=== PATIENT | female | born 1995 | race Caucasian/White ===

== ENCOUNTER 2018-12-22 00:56 | Emergency (ER) | payer MEDICAID, OTHER ==
[~2018-12-22] VITALS: Ht 158.8 cm; Wt 54.0 kg
--- OUTSIDE RECORDS SUMMARY | 2018-12-22 01:05 | XMS REPORT ---
Author Author [facility] Medical Staff Organization [facility] Address [address] [place] [place] [id number] Phone [phone] Care Team Providers Care [place] Runner Name Role Phone ANG HAWLEY MD PP [phone] Summary purpose TRANSITION OF CARE AUTO GENERATION Chief Complaint and Reason for Visit No authorized Reason for Visit (Admitting Diagnosis) is available for this visit. Problem list No authorized problems tracked for continuity of care are available for this visit. Encounters No authorized problems tracked for encounter diagnoses are available for this visit. Medications No medications recorded for this patient visit Allergies, adverse reactions, alerts Allergen Category Ingredient Status Reaction Severity Onset Penicillins Drug Allergy Penicillins Confirmed or Verified Rash Penicillins Drug Allergy Penicillins Confirmed or Verified Swelling Immunizations No immunizations recorded for this patient visit Relevant diagnostic tests and/or laboratory data RESULTS Routine Urinalysis [id number]:41:00 Result Normal Range Units Color YELLOW Clarity Hazy Specific [place] 1.010 1.003-1.035 pH 5.5 4.5-8.0 Glucose 3+ Bilirubin NEGATIVE Ketones NEGATIVE Protein NEGATIVE Urobilinogen 0.2 0-0.2 E.U./dL Nitrites NEGATIVE Blood NEGATIVE Leukocytes NEGATIVE WBCs 5-10 RBCs 0-5 Squamous Epithelial 1+ Bacteria Rare Amount Yeast Occasional Chemistry [id number]:30:00 Result Normal Range Units Sodium L 130 134-145 mEq/l Potassium 4.3 3.5-5.1 mEq/l Chloride L 93 98-107 mEq/l CO2 H 29.0 22-28 mEq/l Glucose H@ 474 70-105 mg/dl BUN 12 7-18 mg/dl Creatinine 0.69 0.6-1.0 mg/dl Calcium 9.1 8.4-10.2 mg/dl TP - Total Protein 7.8 6.0-8.3 g/dl Albumin L 3.4 3.5-5 g/dl Bilirubin - Total 0.2 0.1-1.0 mg/dl AST L 7 10-42 IU/L ALT 17 12-65 IU/L ALP H 150 25-72 IU/L Osmolality 281.4 280-300 mOsm/L Albumin/Globulin Ratio 0.8 0-8 Anion GAP 8.0 8-16 BUN/Creatinine Ratio 17.4 10-20 Estimated GFR 107 >=60 mL/min/1.7 Hematology [id number]:30:00 Result Normal Range Units WBC H 12.0 4.8-10.8 103/uL RBC 5.4 4.2-5.4 106/uL HGB 14.2 12.0-16.0 g/dl HCT 43.6 36.9-47.0 % MCV L 80.7 81-99 FL MCH L 26.3 27-31 pg MCHC L 32.6 33-37 g/dl RDW 13.7 11.5-15.5 % PLT 314 130-400 103/uL MPV 10.2 7.3-10.4 FL Neutro % 60.1 40-70 % Lymph % 32.0 20-40 % Dixon % 5.1 0-10.0 % Eos % 1.3 0-7.0 % Baso % 0.6 0-2 % Neutro # 7.2 1.5-7.5 103/uL Lymph # 3.8 0.9-4.0 103/uL Dixon # 0.6 0-0.8 103/uL Eos # 0.2 0-0.6 103/uL Baso # 0.1 0-0.1 103/uL Special Chemistry [id number]:30:00 Result Normal Range Units HCG (Qualitative) Negative Body Fluid [id number]:41:00 Result Normal Range Units pH 5.5 4.5-8.0 Radiology Results [id number]:18:00 Abdomen 2 View PACs Image DATE OF EXAM: Jan 18 2016 RAD 0037-ABDOMEN 2 VIEW : RADIOLOGY REPORT DATE OF SERVICE: 01/18/16 HISTORY: Abdominal pain ABDOMEN 2 VIEWS 0120 HOURS The bowel gas pattern is within normal limits. There is no obstruction or ileus. There is no free air. There are no pathological calcifications. The lung bases are clear. IMPRESSION: Negative abdomen. Luis Beckwith MD Tutu/mn/ 08:20:00 / 01/18/2016 08:51:23 cc:Dr. Ang aHwley This document has been electronically Signed by: On: DATE OF EXAM: Jan 18 2016 RAD 0037-ABDOMEN 2 VIEW : RADIOLOGY REPORT DATE OF SERVICE: 01/18/16 HISTORY: Abdominal pain ABDOMEN 2 VIEWS 0120 HOURS The bowel gas pattern is within normal limits. There is no obstruction or ileus. There is no free air. There are no pathological calcifications. The lung bases are clear. IMPRESSION: Negative abdomen. MD SASHA Doe/mn01/18/2016 08:20:00 / 01/18/2016 08:51:23 cc:Dr. Ang Hawley This document has been electronically Signed by: LUIS BECKWITH MD On: Jan 18 20161:18P Result Amended on 2016-01-18 at 13:18:26. Previous status was [place]. [id number]:30:00 Result Normal Range Units MPV 10.2 7.3-10.4 FL History of procedures No procedures recorded for this patient visit. Functional status Functional Status Finding Observation Time Abdomen Appearance round [id number]:20 Abdomen tender [id number]:20 Bowel Sounds present [id number]:20 Marks no 21-57-196456:20 Urination normal [id number]:20 Quality sym/unlabored :20 Cough absent 92-95-253826:20 Secretions no 75-26-140410:20 Airway natural 26-14-347577:20 Chest Tube no 33-75-221688:20 Oxygen no 97-46-006540:00 Temp >100.4 no 29-77-274475:20 Temp <96.8 no 54-22-767986:20 Chills with rigors no 26-84-368726:20 HR > 90bpm yes :20 Respirations > 20 no :20 Systolic <90 no :20 headache stiff neck no [id number]:20 IV Site Location no iv access :30 Nursing Note dc instructions given. pt verbalized understanding on patient education. vitals wnl. pt amb off unit to personal vehicle with personal belongings intact. encouraged to call with any needs or c/o. :05 Vital signs Type Value Date Respiration Rate 18breaths per minute : Pulse 106beats per minute : Oxygen Saturation 100% : BP Systolic 116mmHg :00 BP Diastolic 85mmHg :00 Temperature 98.8F :00 Social history Type Value Smoking Status CURRENT EVERY DAY SMOKER Treatment Plan No treatment plan text is available for this visit. Hospital discharge instructions Dismissal Condition good Disposition on DC home DC Inst/Educ Give yes Med/Side Effects Rev yes PNE Vac no Flu Vac no Tetanus Vac no
--- OUTSIDE RECORDS SUMMARY | 2018-12-22 01:05 | XMS REPORT ---
Author Author [facility] Medical Staff Organization [facility] Address [address] [place], [place] [id number] Phone [phone] Care Team Providers Care Accounting Technician Name Role Phone ANG HAWLEY MD PP [phone] ANG HAWLEY MD, PP [phone] Summary purpose TRANSITION OF CARE AUTO GENERATION Chief Complaint and Reason for Visit Admit Diagnosis 1 HYPERGLYCEMIA DENTAL ABSCESS Problem list No authorized problems tracked for continuity of care are available for this visit. Encounters The following conditions tracked for encounter diagnoses were recorded for this visit: Finding or Diagnosis Status Certainty Chronicity Onset *CELLULITIS Active Medications Discharge Medications Status Medication Directions Current Ambien 10 mg tablet 10 milligram (s) oral Bedtime daily sleep aid Current clindamycin 300 mg capsule 1 oral oral 3 xDaily 06-11-21 x 7 days Current doxepin 10 mg capsule 1 capsule(s) oral Every Evening @ 1800 Itching Current hydroxyzine HCl 25 mg tablet 1 tab(s) oral 3 xDaily 06-11-21 Nerves Current Insulin Aspart (NOVOLOG FLEXPEN): INSULN PEN 10 UNIT subcutaneous Give SUBQ Before Meals Current Levemir 100 unit/mL subcutaneous solution 40 unit(s) subcutaneous subQ Bedtime daily Diabetes Current metoclopramide 10 mg tablet 0.5 tab(s) oral 4 xDaily 06-10-17- 30 min before meal and at bedtime Current paroxetine 20 mg tablet 1 tab(s) oral Daily depression Current ranitidine 150 mg capsule 1 tab(s) oral Twice a day Heartburn Stopped Novolog 100 unit/mL Sub-Q subcutaneous 3 xDaily 06-11-21 Sliding scale with meals Allergies, adverse reactions, alerts Allergen Category Ingredient Status Reaction Severity Onset Penicillins Drug Allergy Penicillins Confirmed or Verified Rash Penicillins Drug Allergy Penicillins Confirmed or Verified Swelling Sulfa (Sulfonamide Antibiotics) Drug Allergy Sulfa (Sulfonamide Antibiotics) Confirmed or Verified Immunizations No immunizations recorded for this patient visit Relevant diagnostic tests and/or laboratory data RESULTS [id number]:17:00 Discharge Summary DISCHARGE SUMMARY ADMISSION DIAGNOSES: 1. Right facial cellulitis. 2. Uncontrolled diabetes. DISCHARGE DIAGNOSES: 1. Right facial cellulitis secondary to dental abscess, improved. 2. Underlying poorly controlled diabetes mellitus on insulin. CONSULTATIONS:None. PROCEDURES:None. PERTINENT LABORATORY/X-RAY/ELECTROCARDIOGRAM DATA: CT scan of the face showed soft tissue swelling and inflammatory changes of the right perimandibular region, suggesting cellulitis. No definite abscess identified at this time. Forming abscess could be a consideration. LABORATORY/X-RAY/EKG DATA:Complete blood count on admission with white count 11.5, normal differential, hemoglobin 12.8, and platelets 320. Throughout her stay, white count was as high as 14.4 and was down to 9.5 by the day of dismissal. Hemoglobin A1c was 12.5. Comprehensive metabolic panel on admission showed a sodium of 130, potassium 4.1, glucose 472, blood urea nitrogen 4, creatinine 0.72, albumin of 2.9, alkaline phosphatase 148, and otherwise normal. By dismissal basic metabolic profile showed a sodium of 136, potassium 4.2, glucose 254, blood urea nitrogen 6, and creatinine 0.52. Blood cultures negative times two. HOSPITAL COURSE:[place] is a 20-year-old female patient of Dr. Hawley who has chronically been noncompliant with her diabetes management. She is an insulin dependent diabetic. She was admitted to the hospital with right facial cellulitis secondary to poor dentition and probable dental abscess. Given her allergy to penicillin, she was started on meropenem in the hospital and she improved very quickly with some resolution of low grade fevers, improvement of white blood cell count, and improvement of her clinical status with regard to erythema, swelling, and pain to the right side of the face. She was essentially back to normal other than some mild induration of the right zygoma on dismissal. We had her following a better diabetic diet, which brought her blood sugars down from "high" to the 300 to 400s. We then increased her insulin and started scheduled mealtime insulin as opposed to her normal sliding scale. This brought her blood sugars down to the 180s to 240s. She was ready for dismissal on 04/06/2016. PHYSICAL EXAMINATION: VITAL SIGNS: On dismissal, temperature 98.6, pulse 114, blood pressure 116/82, respirations 18, and oxygen saturation 96% on room air. GENERAL: Well developed, overweight female in no acute distress on my exam. Alert and oriented, friendly and cooperative. Mood and affect are much more bright today. HEENT: Oropharynx is clear. Poor dentition. Face with minimal induration over the right zygoma and essentially no erythema remaining and no tenderness. CONDITION ON DISMISSAL:Good. DISCHARGE INSTRUCTIONS:We discussed the importance of diabetic diet, exercise, and compliance with medications. FOLLOW UP: 1. Follow up with Dr. Hawley in about 10 days for diabetic management. 2. Follow up with dentist [place]. DISCHARGE MEDICATIONS:Clindamycin 300 mg 3 times a day times 7 days. She received meropenem for 4 days in the hospital. Ambien 10 mg nightly. Doxepin 10 mg nightly. Hydroxyzine 25 mg 3 times a day. NovoLog 10 units with meals. Levemir 40 units each night. Reglan 5 mg 4 times a day. Paxil 20 mg daily. Ranitidine 150 mg twice daily. Eri Borges MD, PhD AM/claire04/06/2016 13:17:29/04/06/2016 14:01:47 [facility]: [facility] [address] [place] [address] <END HEADER> [id number]:47:00 Progress Note PROGRESS NOTE 04/05/2016 16:47:27 S: She is feeling better.She has no pain, no shortness of breath, no chest pain, no nausea.Bowels are working.Urination is working. Chronic lower extremity wounds are improving a little.Facial cellulitis is improving.No concerns. O:VITAL SIGNS:Temperature 96.6, pulse 103, blood pressure 118/78, respirations 18, oxygen saturation 95% on room air.GENERAL: Well-developed, overweight female in no distress.Alert, oriented, friendly, cooperative.Mood and affect are flat.HEENT:Poor dentition.Minimal erythema remaining below the right eye; otherwise, minimal swelling to the right side of the face.Nontender, no fluctuance.NECK:Supple.HEART:Regular.No murmurs.LUNGS: Clear.EXTREMITIES:No edema.LABORATORY:Complete blood count with white count down to 11,300, normal differential, hemoglobin stable at 10.7, platelets 297,000.Comprehensive metabolic panel, sodium 135, potassium 4.8, glucose 359 fasting, BUN 4, creatinine 0.56, albumin 2.3, alkaline phosphatase 112; otherwise, normal.Blood cultures negative. Wound cultures negative of the knee. A:1)20-year-old female with right facial cellulitis, improving with IV Meropenem.2)Underlying uncontrolled diabetes mellitus on insulin. P:1)Continue IV Meropenem until dismissal at which point we will change to Augmentin.2)Increase her home Levemir from 35 units to 40 units.Start NovaLog 10 units with meals, plus the correction NovaLog that is on order currently.3)Repeat lab in the morning.4) Anticipate dismissal tomorrow.5)We talked about the fact that she has to get control of her diabetes or she will end up with diabetic complications and a shorter life.I request that she follow up with Dr. Hawley in about one week regarding her diabetes and she be compliant with diabetic diet, exercise, blood sugar monitoring and insulin use. Eri Borges MD, PhD AM/pb 04/05/2016 16:47:27/04/05/2016 19:25:01 [facility]: [facility] [address] [place] [address]<END HEADER> [id number]:20:00 Progress Note PROGRESS NOTE 04/04/2016 06:20:18 S: Patient is in with a right facial cellulitis from a dental infection. She is also uncontrolled on diabetes. Last night was okay. She reports she did not sleep well since she did not get her Ambien at night that she normally takes around midnight. She has had some facial pain. She has been given Toradol as well as Lortab. She also has Ibuprofen. She is hungry this morning and wanting to eat. Her blood sugars have been 300 earlier this morning down from 500. No fevers or other concerns noted. O: VITAL SIGNS: Temperature 97.6, pulse 112, blood pressure 105/71, respiratory rate 18 and oxygen saturation is 99% on room air. GENERAL: The patient is alert, oriented, lying in bed, no acute distress. CARDIOVASCULAR: Regular rate rhythm. LUNGS: Clear. ABDOMEN: Soft, nontender, nondistended. Positive bowel sounds. EXTREMITIES: No rash or edema. HEENT: Right face still has some mild redness in the cheek and underneath the right eye. The redness and swelling seemed to be consolidating already. The patient has poor dentition inside the mouth. LABORATORY: Currently pending. A: 1. Right-sided facial cellulitis. 2. Dental infection which is primary source of infection. 3. Poorly controlled diabetes type 1. P: 1. Will continue the IV antibiotics. She is on meropenem currently. 2. Will continue her insulin. 3. Will continue Lovenox for DVT prophylaxis. 4. Will get her up to the chair today. 5. Will restart her Ambien at night. There are several other medicines she reports she takes but we do not have the official complete list yet. 6. Will continue her pain medication. 7. Recheck lab in the morning. Codey Hdez MD /la 04/04/2016 06:20:18/04/04/2016 14:30:17 Clinic Code: [facility] [address] [place] [address]<END HEADER> Blood Cultures [id number]:39:00 Blood Culture Plate Date and Time 04/03/2016 18:46 SourceBLOOD CULTURE REPORT NoGrowth at 1 day. Unless otherwise notified. Final report in 5 Days. Release Date/Time: 04/05/2016 08:14 RIGHT AC CULTURE REPORT No growth in 5 days. Release Date/Time: 04/09/2016 07:25 RIGHT AC Blood Culture Plate Date and Time 04/03/2016 18:46 SourceBLOOD CULTURE REPORT NoGrowth at 1 day. Unless otherwise notified. Final report in 5 Days. Release Date/Time: 04/05/2016 08:14 LEFT AC CULTURE REPORT No growth in 5 days. Release Date/Time: 04/09/2016 07:25 LEFT AC Routine Cultures [id number]:00 Wound Culture Plate Date and Time 04/04/2016 23:18 SourceKNEE CULTURE REPORT Small Amount Staphylococcus aureus Sensitivity to follow. Release Date/Time: 04/06/2016 08:53 LEFT ANKLE disregard 1st comment. specimen collected from left knee GRAM STAIN No cells seen on microscopic Examination No Organisms Seen. Release Date/Time: 04/05/2016 09:40 LEFT ANKLE disregard 1st comment. specimen collected from left knee ORGID #1:Small Amount METHICILLIN RESISTANT STAPH AUREUS Release Date/Time: 04/07/2016 08:00 LEFT ANKLE disregard 1st comment. specimen collected from left knee Sensitivity #1: MRSA AMPICILLIN > 8 R LEFT ANKLE disregard 1st comment. specimen collected from left knee AMOX CLAV>4/2R LEFT ANKLE disregard 1st comment. specimen collected from left knee CLINDAMYCIN<=0.5S LEFT ANKLE disregard 1st comment. specimen collected from left knee CEFAZOLIN> 16R LEFT ANKLE disregard 1st comment. specimen collected from left knee CIPROFLOXACIN<=1S LEFT ANKLE disregard 1st comment. specimen collected from left knee DAPTOMYCIN 1 S LEFT ANKLE disregard 1st comment. specimen collected from left knee ERYTHROMYCIN > 4 R LEFT ANKLE disregard 1st comment. specimen collected from left knee GENTAMICIN <=4S LEFT ANKLE disregard 1st comment. specimen collected from left knee AMPICILLIN SULBACTAM >16/8 R LEFT ANKLE disregard 1st comment. specimen collected from left knee LEVOFLOXACIN <=1S LEFT ANKLE disregard 1st comment. specimen collected from left knee LINEZOLID4 S LEFT ANKLE disregard 1st comment. specimen collected from left knee MOXIFLOXACIN <=0.5S LEFT ANKLE disregard 1st comment. specimen collected from left knee OXACILLIN> 2 R LEFT ANKLE disregard 1st comment. specimen collected from left knee PENICILLIN > 8 R LEFT ANKLE disregard 1st comment. specimen collected from left knee RIFAMPIN <=1S LEFT ANKLE disregard 1st comment. specimen collected from left knee TRIMETHSULFA <=0.5/9.5 S LEFT ANKLE disregard 1st comment. specimen collected from left knee TETRACYCLINE <=4S LEFT ANKLE disregard 1st comment. specimen collected from left knee VANCOMYCIN 2 S LEFT ANKLE disregard 1st comment. specimen collected from left knee Wound Culture Plate Date and Time 04/05/2016 01:38 SourceANKLE CULTURE REPORT Small Amount Staphylococcus aureus Sensitivity to follow. Release Date/Time: 04/06/2016 08:52 GRAM STAIN No cells seen on microscopic Examination No Organisms Seen. Release Date/Time: 04/05/2016 09:40 ORGID #1:Small Amount METHICILLIN RESISTANT STAPH AUREUS Release Date/Time: 04/07/2016 07:59 Sensitivity #1: MRSA AMPICILLIN > 8 R AMOX CLAV>4/2R CLINDAMYCIN<=0.5S CEFAZOLIN> 16R CIPROFLOXACIN<=1S DAPTOMYCIN 1 S ERYTHROMYCIN > 4 R GENTAMICIN <=4S AMPICILLIN SULBACTAM >16/8 R LEVOFLOXACIN <=1S LINEZOLID4 S MOXIFLOXACIN <=0.5S OXACILLIN> 2 R PENICILLIN > 8 R RIFAMPIN <=1S TRIMETHSULFA <=0.5/9.5 S TETRACYCLINE <=4S VANCOMYCIN 2 S Chemistry :45:00 Result Normal Range Units Sodium 136 134-145 mEq/l Potassium 4.2 3.5-5.1 mEq/l Chloride L 97 98-107 mEq/l CO2 H 32.1 22-28 mEq/l Glucose H 254 70-105 mg/dl BUN L 6 7-18 mg/dl Creatinine L 0.52 0.6-1.0 mg/dl Calcium 9.7 8.4-10.2 mg/dl Osmolality L 278.2 280-300 mOsm/L Anion GAP L 6.9 8-16 BUN/Creatinine Ratio 11.5 10-20 Estimated GFR 149 >=60 mL/min/1.7 :47:00 Result Normal Range Units Sodium 135 134-145 mEq/l Potassium 4.8 3.5-5.1 mEq/l Chloride L 97 98-107 mEq/l CO2 H 31.9 22-28 mEq/l Glucose H 359 70-105 mg/dl BUN L 4 7-18 mg/dl Creatinine L 0.56 0.6-1.0 mg/dl Calcium 8.9 8.4-10.2 mg/dl TP - Total Protein 6.8 6.0-8.3 g/dl Albumin L 2.3 3.5-5 g/dl Bilirubin - Total 0.2 0.1-1.0 mg/dl AST 10 10-42 IU/L ALT 12 12-65 IU/L ALP H 112 25-72 IU/L Osmolality 281.5 280-300 mOsm/L Albumin/Globulin Ratio 0.5 0-8 Anion GAP L 6.1 8-16 BUN/Creatinine Ratio L 7.1 10-20 Estimated GFR 137 >=60 mL/min/1.7 :30:00 Result Normal Range Units Sodium L 130 134-145 mEq/l Potassium 4.1 3.5-5.1 mEq/l Chloride L 93 98-107 mEq/l CO2 H 28.6 22-28 mEq/l Glucose H@ 472 70-105 mg/dl BUN L 4 7-18 mg/dl Creatinine 0.72 0.6-1.0 mg/dl Calcium 9.1 8.4-10.2 mg/dl TP - Total Protein 8.0 6.0-8.3 g/dl Albumin L 2.9 3.5-5 g/dl Bilirubin - Total 0.3 0.1-1.0 mg/dl AST 10 10-42 IU/L ALT 16 12-65 IU/L ALP H 148 25-72 IU/L Osmolality L 278.5 280-300 mOsm/L Albumin/Globulin Ratio 0.6 0-8 Anion GAP 8.4 8-16 BUN/Creatinine Ratio L 5.6 10-20 Estimated GFR 102 >=60 mL/min/1.7 Hematology :45:00 Result Normal Range Units WBC 9.5 4.8-10.8 103/uL RBC 4.8 4.2-5.4 106/uL HGB 12.6 12.0-16.0 g/dl HCT 38.7 36.9-47.0 % MCV L 80.3 81-99 FL MCH L 26.1 27-31 pg MCHC L 32.6 33-37 g/dl RDW 13.1 11.5-15.5 % PLT 332 130-400 103/uL MPV 10.1 7.3-10.4 FL :47:00 Result Normal Range Units WBC H 11.3 4.8-10.8 103/uL RBC L 4.1 4.2-5.4 106/uL HGB L 10.7 12.0-16.0 g/dl HCT L 32.7 36.9-47.0 % MCV L 80.5 81-99 FL MCH L 26.4 27-31 pg MCHC L 32.7 33-37 g/dl RDW 13.3 11.5-15.5 % PLT 297 130-400 103/uL MPV 10.1 7.3-10.4 FL Neutro % 56.2 40-70 % Lymph % 36.8 20-40 % Rusk % 5.2 0-10.0 % Eos % 1.1 0-7.0 % Baso % 0.3 0-2 % Neutro # 6.4 1.5-7.5 103/uL Lymph # H 4.2 0.9-4.0 103/uL Rusk # 0.6 0-0.8 103/uL Eos # 0.1 0-0.6 103/uL Baso # 0.0 0-0.1 103/uL [id number]:00:00 Result Normal Range Units WBC H 14.4 4.8-10.8 103/uL RBC 4.3 4.2-5.4 106/uL HGB L 11.4 12.0-16.0 g/dl HCT L 34.7 36.9-47.0 % MCV L 80.1 81-99 FL MCH L 26.3 27-31 pg MCHC L 32.9 33-37 g/dl RDW 13.2 11.5-15.5 % PLT 308 130-400 103/uL MPV 10.2 7.3-10.4 FL Neutro % 57.2 40-70 % Lymph % 34.7 20-40 % Rusk % 6.5 0-10.0 % Eos % 1.0 0-7.0 % Baso % 0.3 0-2 % Neutro # H 8.2 1.5-7.5 103/uL Lymph # H 5.0 0.9-4.0 103/uL Rusk # H 0.9 0-0.8 103/uL Eos # 0.2 0-0.6 103/uL Baso # 0.1 0-0.1 103/uL [id number]:30:00 Result Normal Range Units WBC H 11.5 4.8-10.8 103/uL RBC 4.9 4.2-5.4 106/uL HGB 12.8 12.0-16.0 g/dl HCT 38.9 36.9-47.0 % MCV L 79.9 81-99 FL MCH L 26.3 27-31 pg MCHC L 32.9 33-37 g/dl RDW 13.5 11.5-15.5 % PLT 320 130-400 103/uL MPV H 10.6 7.3-10.4 FL Neutro % 67.4 40-70 % Lymph % 26.0 20-40 % Rusk % 4.9 0-10.0 % Eos % 1.0 0-7.0 % Baso % 0.4 0-2 % Neutro # H 7.7 1.5-7.5 103/uL Lymph # 3.0 0.9-4.0 103/uL Rusk # 0.6 0-0.8 103/uL Eos # 0.1 0-0.6 103/uL Baso # 0.1 0-0.1 103/uL Special Chemistry [id number]:39:00 Result Normal Range Units HCG (Qualitative) Negative [id number]:30:00 Result Normal Range Units Hemoglobin A1C H 12.5 4.5-6.2 % Radiology Results [id number]:45:00 Result Normal Range Units MPV 10.1 7.3-10.4 FL [id number]:47:00 Result Normal Range Units MPV 10.1 7.3-10.4 FL [id number]:54:00 CT FACIAL W/CONT PACs Image DATE OF EXAM: 2015 [id number] FACIAL BONES W CONTRAST : RADIOLOGY REPORT DATE OF SERVICE: 04/03/16 HISTORY: Right side facial swelling, possible abscess COMPUTED TOMOGRAPHY FACIAL BONES WITH CONTRAST 1945 HOURS Contrast was utilized Isovue-300, 100 ml. Abscess formation presentation is not defined at this time. There is soft tissue prominence over the right mandibular and facial region. This could be a precursor to abscess formation. There is slight increase in enhancement through this area. The left side shows no evidence of abnormality. The right maxillary sinus shows mucoperiosteal thickening. The left maxillary sinus is clear. The ethmoid sinuses bilaterally are clear, sphenoid and frontal sinuses appear normal. No obvious bony erosion or dental abscess formation is defined. Definitive followup of this patient recommended. IMPRESSION: 1. Soft tissue swelling and inflammatory changes in the right perimandibular region suggesting a cellulitis. 2. No definitive abscess identified at this time, forming abscess could be a consideration and continued followup is recommended. Devang Jeffries DO WP/franc 04/04/2016 09:04:00 / 04/04/2016 10:57:57 cc:Dr. Ang Hawley This document has been electronically Signed by: On: DATE OF EXAM: 2015 [id number] FACIAL BONES W CONTRAST : RADIOLOGY REPORT DATE OF SERVICE: 04/03/16 HISTORY: Right side facial swelling, possible abscess COMPUTED TOMOGRAPHY FACIAL BONES WITH CONTRAST 1945 HOURS Contrast was utilized Isovue-300, 100 ml. Abscess formation presentation is not defined at this time. There is soft tissue prominence over the right mandibular and facial region. This could be a precursor to abscess formation. There is slight increase in enhancement through this area. The left side shows no evidence of abnormality. The right maxillary sinus shows mucoperiosteal thickening. The left maxillary sinus is clear. The ethmoid sinuses bilaterally are clear, sphenoid and frontal sinuses appear normal. No obvious bony erosion or dental abscess formation is defined. Definitive followup of this patient recommended. IMPRESSION: 1. Soft tissue swelling and inflammatory changes in the right perimandibular region suggesting a cellulitis. 2. No definitive abscess identified at this time, forming abscess could be a consideration and continued followup is recommended. Dveang Jeffries DO WP/la 04/04/2016 09:04:00 / 04/04/2016 10:57:57 cc:Dr. Ang Hawley This document has been electronically Signed by: DEVANG JEFFRIES DO On: 2015 12:54P HYPERGLYCEMIADENTAL ABSCESS Result Amended on 2016-04-04 at 12:54:20. Previous status was NE. HYPERGLYCEMIADENTAL ABSCESS [id number]:00:00 Result Normal Range Units MPV 10.2 7.3-10.4 FL [id number]:30:00 Result Normal Range Units MPV H 10.6 7.3-10.4 FL History of procedures No procedures recorded for this patient visit. Functional status Functional Status Finding Observation Time Hearing Prob Loc none :30 Vision Problems yes :30 Vision Correct Dev glasses :30 Ambulation Asst Dev none :30 Range of Motion full :00 Muscle Strength RUE 5 ROM full resist [id number] Muscle Strength RLE 5 ROM full resist :00 Muscle Strength LUE 5 ROM full resist [id number] Muscle Strength LLE 5 ROM full resist [id number]:00 Transfers independent [id number]:00 Ambulation in room :00 Balance steady :00 Nutrition normal :00 Diet ADA specify calorie Comment: 2200 :00 Oral Cavity ulceration :00 Teeth missing (specify) Comment: few, dental abcess :00 Dental Hygiene poor :00 Abdomen Appearance round :00 Abdomen soft :00 Bowel Sounds present :00 NG Tube no :00 Marks no :00 Cont Bladder Irr no :00 Ostomy no :00 Stool Comment: BM today per patient :38 Color normal :27 Consistency liquid :27 Urination normal :00 Urine Clarity clear :00 Urine Color yellow :00 Quality sym/unlabored :00 Cough absent :00 Secretions no :00 Breath Sounds RUL clear :00 Breath Sounds RML clear :00 Breath Sounds RLL clear :00 Breath Sounds RITESH clear :00 Breath Sounds LLL clear :00 Airway natural :00 Chest Tube no :00 Oxygen no [id number]:00 C-PAP no :00 BI-PAP no :00 New Infection skin inflammation :00 Temp >100.4 no :00 Temp <96.8 no :00 Chills with rigors no :00 HR > 90bpm yes :00 Respirations > 20 no :00 Systolic <90 no :00 headache stiff neck no :00 WBC > [id number] no :00 WBC < 4000 no :00 Infection and 2 Yes Comment: Physician saw patient this AM and believed things to be stable to improving :44 IV Site Location Left AC :00 IV Type peripheral :00 IV Site Information discontinued : IV Site Start Attmpt 1 times [id number]:33 IV Site Saji 20 : IV Site Appearance WNL :00 IV Site Color clear : IV Site Patent yes : Dressing Changed yes : Dressing Type gauze : Nursing Note Pt left unit amb with family at side, all personal belonging with pt. 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 Hospital discharge instructions Dismissal Condition fair Disposition on DC admitted Comment: 211 Valuables yes Valuable Type cell phone Comment: Purse PNE Vac unsure Flu Vac unsure
--- OUTSIDE RECORDS SUMMARY | 2018-12-22 01:06 | XMS REPORT ---
Author [facility] Medical Staff Organization [facility] Address [address] [place] [id number] Phone [phone] Care Team Providers Care Manager Talent Name Role Phone ALMAS HAWLEY MD PP [phone] Summary purpose TRANSITION OF CARE AUTO GENERATION [...] tests and/or laboratory data RESULTS Routine Urinalysis [id number]:15:00 Result Normal Range Units Color YELLOW Clarity Hazy Specific [place] 1.015 1.003-1.035 pH 5.5 4.5-8.0 Glucose 3+ Bilirubin NEGATIVE Ketones 1+ Protein 1+ Urobilinogen 0.2 0-0.2 E.U./dL Nitrites NEGATIVE Blood NEGATIVE Leukocytes NEGATIVE WBCs No WBC's Seen RBCs 0-5 Squamous Epithelial 1+ Bacteria Rare Amount Drug Screen In House [id number]:15:00 Result Normal Range Units Amphetamine Negative Negative Barbiturates Negative Negative Benzodiazepines Negative Negative Cannabinoids Negative Negative *Triage TOXis a medical drug screen to be used only for assessment and treatment of patients. This drug screen cannot be used for employment or legal purposes. Cocaine Negative Negative Mamp/MDMA Negative Negative Methadone Negative Negative Opiates Negative Negative Phencyclidine Negative Negative Tricyclic Antidepressants Negative Negative Chemistry [id number]:10:00 Result Normal Range Units Sodium L 128 134-145 mEq/l Potassium 4.8 3.5-5.1 mEq/l Chloride L 89 98-107 mEq/l CO2 H 30.1 22-28 mEq/l Glucose H 397 70-105 mg/dl BUN 9 7-18 mg/dl Creatinine 0.60 0.6-1.0 mg/dl Calcium 9.7 8.4-10.2 mg/dl TP - Total Protein 8.2 6.0-8.3 g/dl Albumin 3.6 3.5-5 g/dl Bilirubin - Total 0.4 0.1-1.0 mg/dl AST 16 10-42 IU/L ALT 19 12-65 IU/L ALP H 149 25-72 IU/L Lipase 134 73-393 U/L Osmolality L 272.3 280-300 mOsm/L Albumin/Globulin Ratio 0.8 0-8 Anion GAP 8.9 8-16 BUN/Creatinine Ratio 15.0 10-20 Estimated GFR 126 >=60 mL/min/1.7 Hematology :10:00 Result Normal Range Units WBC H 12.0 4.8-10.8 103/uL RBC H 5.7 4.2-5.4 106/uL HGB 14.9 12.0-16.0 g/dl HCT 45.0 36.9-47.0 % MCV L 79.4 81-99 FL MCH L 26.3 27-31 pg MCHC 33.1 33-37 g/dl RDW 13.6 11.5-15.5 % PLT 310 130-400 103/uL MPV 9.9 7.3-10.4 FL Neutro % 66.0 40-70 % Lymph % 27.8 20-40 % [place] % 4.8 0-10.0 % Eos % 0.6 0-7.0 % Baso % 0.5 0-2 % Neutro # H 7.9 1.5-7.5 103/uL Lymph # 3.3 0.9-4.0 103/uL [place] # 0.6 0-0.8 103/uL Eos # 0.1 0-0.6 103/uL Baso # 0.1 0-0.1 103/uL Special Chemistry :33:00 Result Normal Range Units Acetone Serum AB Small Amount Negative :10:00 Result Normal Range Units HCG (Qualitative) Negative Hemoglobin A1C H 11.0 4.5-6.2 % Body Fluid [id number]:15:00 Result Normal Range Units pH 5.5 4.5-8.0 Radiology Results :10:00 Result Normal Range Units MPV 9.9 7.3-10.4 FL History of procedures No procedures recorded for this patient visit. Functional status Functional Status Finding Observation Time Muscle Strength RUE 5 ROM full resist :45 Muscle Strength RLE 5 ROM full resist :45 Muscle Strength LUE 5 ROM full resist :45 Muscle Strength LLE 5 ROM full resist :45 Diet regular :45 Abdomen Appearance round :45 Abdomen tender : Bowel Sounds present : Marks no : Urination normal : Quality sym/unlabored : Cough absent : Secretions no :45 Airway natural : Chest Tube no :45 Oxygen no :40 Temp >100.4 no : Temp <96.8 no : Chills with rigors no : HR > 90bpm yes : Respirations > 20 no : Systolic <90 no :45 headache stiff neck no :45 IV Site Location L AC space :30 IV Type peripheral :30 IV Site Information discontinued :30 IV Site Start Attmpt 1 times :00 IV Site Saji 20 :30 IV Site Appearance WNL :30 IV Site Color clear : IV Site Patent yes :00 Dressing Type gauze :30 Nursing Note D/c instructions reviewed with pt, pt and family both verbalized understanding. Pt d/c to home in good condition, ambulated off unit indepndently without difficulty accompanied by family and staff. :40 Vital signs Type Value Date Respiration Rate 18breaths per minute :40 Pulse 108beats per minute :40 Oxygen Saturation 99% :40 BP Systolic 106mmHg :40 BP Diastolic 72mmHg :40 Temperature 97.7F :40 Social history Type Value Smoking Status CURRENT EVERY DAY SMOKER Treatment Plan No treatment plan text is available for this visit. Hospital discharge instructions Dismissal Condition good Disposition on DC home DC Inst/Educ Give yes Med/Side Effects Rev yes PNE Vac no Flu Vac no Tetanus Vac no
--- OUTSIDE RECORDS SUMMARY | 2018-12-22 01:06 | XMS REPORT ---
Author Author [facility] Medical Staff Organization [facility] Address [address] [place], [place] [address] Phone [phone] Care Team Providers Care Assistant Finance Director Name Role Phone ALMAS HAWLEY MD PP [phone] Summary purpose TRANSITION OF CARE AUTO GENERATION Chief Complaint and Reason for Visit Admit Diagnosis 1 NONINFECT VAG LEUKORRHEA Problem list No authorized problems tracked for continuity of care are available for this visit. Encounters No authorized problems tracked for encounter diagnoses are available for this visit. Medications No home medications recorded for this patient visit Allergies, adverse reactions, alerts Allergen Category Ingredient Status Reaction Severity Onset Penicillins Drug Allergy Penicillins Confirmed or Verified Rash Penicillins Drug Allergy Penicillins Confirmed or Verified Swelling Immunizations No immunizations recorded for this patient visit Relevant diagnostic tests and/or laboratory data RESULTS Routine Urinalysis [id number]:15:00 Result Normal Range Units Color YELLOW Clarity Hazy Specific [place] 1.006 1.003-1.035 pH 6.0 4.5-8.0 Glucose 3+ Bilirubin NEGATIVE Ketones NEGATIVE Protein NEGATIVE Urobilinogen 0.2 0-0.2 E.U./dL Nitrites NEGATIVE Blood TRACE Leukocytes NEGATIVE WBCs 0-5 RBCs 10-20 Squamous Epithelial Few Bacteria Occasional Yeast 1+ Routine Cultures [id number]:15:00 Urine Culture Plate Date and Time 12/18/2014 23:18 SourceURINE CULTURE REPORT No Growth After 24 Hours Release Date/Time: 12/19/2014 07:48 CULTURE REPORT >100,000 colonies/ml Mixed Gram Pos Nancy Release Date/Time: 12/20/2014 08:58 Body Fluid [id number]:15:00 Result Normal Range Units pH 6.0 4.5-8.0 History of procedures Procedure Code Code Type Description Date Performed Performing Physician 39759 CPT-4 URINE CULTURE/COLONY COUNT 12-18-2014 ORLIN CARLSON 79280 CPT-4 URINALYSIS, AUTO W/SCOPE 12-18-2014 ORLIN CARLSON 75346 CPT-4 URINE TEST 12-18-2014 ORLIN CARLSON 16488 CPT-4 EMERGENCY DEPT VISIT 12-18-2014 ORLIN CARLSON 37195 CPT-4 EMERGENCY DEPT VISIT 12-18-2014 ORLIN CARLSON Functional status Functional Status Finding Observation Time Diet regular :08 Abdomen Appearance flat :08 Abdomen soft :08 Bowel Sounds present :08 Marks no :08 Urination normal :08 Quality sym/unlabored :08 Cough absent :08 Secretions no :08 Airway natural :08 Chest Tube no :08 Oxygen no :43 Temp >100.4 no :08 Temp <96.8 no :08 Chills with rigors no :08 HR > 90bpm yes Comment: 109 :08 Respirations > 20 no :08 Systolic <90 no :08 headache stiff neck no :08 Rapid Resp no :08 Nursing Note Pt left ER with significant other/family members in good condition to personal vehicle. :48 Vital signs Type Value Date Respiration Rate 18breaths per minute :43 Pulse 97beats per minute :43 Oxygen Saturation 100% :43 BP Systolic 110mmHg :43 BP Diastolic 82mmHg :43 Temperature 97.9F :43 Height 62inches :50 Weight 132LB :50 Social history Type Value Smoking Status CURRENT EVERY DAY SMOKER Treatment Plan No treatment plan text is available for this visit. Hospital discharge instructions Dismissal Condition good Disposition on DC home DC Inst/Educ Give yes Med/Side Effects Rev yes
--- OUTSIDE RECORDS SUMMARY | 2018-12-22 01:06 | XMS REPORT ---
Author Author [facility] Medical Staff Organization [facility] [employer] [facility] Address [address] [place] [id number] Phone [phone] Care Team Providers Care Electrical Lineman Name Role Phone ALMAS HAWLEY MD PP [phone] Summary purpose TRANSITION OF CARE AUTO GENERATION [...] visit Relevant diagnostic tests and/or laboratory data No authorized results are available for this patient visit History of procedures Procedure Code Code Type Description Date Performed Performing Physician 77948 CPT-4 EMERGENCY DEPT VISIT 12-03-2015 YVONNE BRANDON 49497 CPT-4 EMERGENCY DEPT VISIT 12-03-2015 YVONNE BRANDON Functional status Functional Status Finding Observation Time Abdomen Appearance flat :40 Abdomen non-tender :40 Marks no :40 Urination normal :40 Quality sym/unlabored :40 Cough absent :40 Secretions no :40 Airway natural :40 Chest Tube no :40 Oxygen no :15 Temp >100.4 no :40 Temp <96.8 no :40 Chills with rigors no :40 HR > 90bpm yes :40 Respirations > 20 no [id number]:40 Systolic <90 no :40 headache stiff neck no :40 IV Site Location no iv access :55 Nursing Note pt exited ambulatary in good condition and with all known belongings. pt exited in care of friend. rx for bactrim and vicodin hp in hand. :15 Vital signs Type Value Date Respiration Rate 18breaths per minute :15 Pulse 118beats per minute :15 Oxygen Saturation 95% :15 BP Systolic 110mmHg :15 BP Diastolic 75mmHg :15 Temperature 99.1F :15 Social history Type Value Smoking Status CURRENT EVERY DAY SMOKER Treatment Plan No treatment plan text is available for this visit. Hospital discharge instructions Dismissal Condition good Disposition on DC home DC Inst/Educ Give yes Med/Side Effects Rev yes PNE Vac no Flu Vac no Tetanus Vac no
--- OUTSIDE RECORDS SUMMARY | 2018-12-22 01:06 | XMS REPORT ---
Author Author [facility] Medical Staff Organization [facility] Address [address] [place] [id number] Phone [phone] Care Team Providers Care Field Staff Name Role Phone MARLEEN ROSALES, ALMAS PP [phone] Summary purpose TRANSITION OF CARE AUTO GENERATION [...] diagnostic tests and/or laboratory data RESULTS Routine Cultures [id number]:10:00 Result Normal Range Units Cervical/ Vaginal/ Urethral See Comments Plate Date and Time 04/01/2016 13:10 SourceVAGINAL CULTURE REPORT Moderate Amount Mixed ilya ID & Sensitivity to follow Release Date/Time: 04/02/2016 07:11 CULTURE REPORT Moderate Amount Mixed ilya Small Amount Yeast Release Date/Time: 04/03/2016 07:31 GRAM STAIN Moderate Amount Squamous Epithelial Cells Rare Amount WBC's Large Amount Gram Positive Hugo Rare Amount Yeast Release Date/Time: 04/02/2016 14:21 ORGID #1:Moderate Amount KLEBSIELLA PNEUMONIAE Release Date/Time: 04/03/2016 07:32 Test ORGID with result ofModerate Amount KLEBSIELLA PNEUMONIAE was originally reported as KLEBSIELLA PNEUMONIAE and was changed on 04/03/2016 07:32 by VE Sensitivity #1: KLEPNE AMPICILLIN 16R AMOX CLAV<=8/4 S CEFTRIAXONE<=1S CEFTAZIDIME<=1S CEFOTAXIME <=2S CEFAZOLIN<=2S CIPROFLOXACIN<=1S CEFEPIME <=4S CEFUROXIME <=4S ERTAPENEM<=0.5S GENTAMICIN <=2S AMPICILLIN SULBACTAM <=8/4 S IMIPENEM <=1S LEVOFLOXACIN <=2S MEROPENEM<=1S TRIMETHSULFA <=2/38S TETRACYCLINE <=4S PIPTAZO<=16 S ORGID #2:Small Amount PRESUMPTIVE C. ALBICANS Release Date/Time: 04/04/2016 13:54 No Further Workup History of procedures Procedure Code Code Type Description Date Performed Performing Physician 79766 CPT-4 SMEAR, GRAM STAIN 04-01-2016 KARLOS DE JESUS 67371 CPT-4 CULTURE, BACTERIA, OTHER 04-01-2016 KARLOS DE JESUS Functional status No functional or cognitive status observations are available for this visit. Vital signs No authorized vital signs are available for this visit. Social history No Social History or smoking status observations were recorded for this visit. ( Unknown if ever smoked.) Treatment Plan No treatment plan text is available for this visit. Hospital discharge instructions No discharge instruction text is available for this visit.
--- OUTSIDE RECORDS SUMMARY | 2018-12-22 01:06 | XMS REPORT ---
Author Author [facility] Medical Staff Organization [facility] Address [address] [place] [id number] Phone [phone] Summary purpose TRANSITION OF CARE AUTO GENERATION [...] for this patient visit History of procedures No procedures recorded for this patient visit. Functional status No functional or cognitive status [...]
--- OUTSIDE RECORDS SUMMARY | 2018-12-22 01:06 | XMS REPORT ---
Author [facility] [employer] [facility] Medical Staff Organization [facility] [employer] [facility] Address [address] [place] [address] Phone [phone] Care Team Providers Care Mess Attendant Name Role Phone ALMAS HAWLEY MD PP [phone] Summary purpose TRANSITION OF CARE AUTO GENERATION [...] Functional Status Finding Observation Time Diet regular :10 Abdomen Appearance flat :10 Abdomen soft :10 Marks no :10 Urination normal :10 Quality sym/unlabored :10 Cough absent :10 Secretions no :10 Airway natural :10 Chest Tube no :10 Oxygen no :45 Temp >100.4 no :10 Temp <96.8 no :10 Chills with rigors no :10 HR > 90bpm no :10 Respirations > 20 no :10 Systolic <90 no :10 headache stiff neck no :10 Rapid Resp no :10 Nursing Note Discharge instructions given, voices understanding. Rx cortisporin otic et bactroban ointment. Amb off unit in good condition. :45 Vital signs Type Value Date Respiration Rate 18breaths per minute : Pulse 114beats per minute :45 Oxygen Saturation 99% :45 BP Systolic 112mmHg :45 BP Diastolic 79mmHg :45 Temperature 97.4F :45 Height 62.5inches :05 Weight 125.4LB :05 Social history Type Value Smoking Status CURRENT EVERY DAY SMOKER Treatment Plan No treatment plan text is available for this visit. Hospital discharge instructions Dismissal Condition good Disposition on DC home DC Inst/Educ Give yes Med/Side Effects Rev yes Comment: rx cortisporin otic, bactroban ointment
--- OUTSIDE RECORDS SUMMARY | 2018-12-22 01:06 | XMS REPORT ---
Author Author [facility] Medical Staff Organization [facility] Address [address] [place], [place] [address] Phone [phone] Care Team Providers Care Automatic Silk Screen Printer Name Role Phone ALMAS HAWLEY MD PP [phone] Summary purpose TRANSITION OF CARE AUTO GENERATION [...] tests and/or laboratory data RESULTS Routine Urinalysis [id number]:00:00 Result Normal Range Units Color YELLOW Clarity Hazy Specific [place] 1.020 1.003-1.035 pH 5.5 4.5-8.0 Glucose 3+ Bilirubin NEGATIVE Ketones 3+ Protein NEGATIVE Urobilinogen 0.2 0-0.2 E.U./dL Nitrites NEGATIVE Blood NEGATIVE Leukocytes NEGATIVE WBCs 0-5 RBCs 0-5 Squamous Epithelial 3+ Bacteria 1+ Yeast 1+ Chemistry [id number]:26:00 Result Normal Range Units Sodium L 131 134-145 mEq/l Potassium 4.1 3.5-5.1 mEq/l Chloride L 95 98-107 mEq/l CO2 24.2 22-28 mEq/l Glucose H 336 70-105 mg/dl BUN 8 7-18 mg/dl Creatinine 0.67 0.6-1.0 mg/dl Calcium 9.7 8.4-10.2 mg/dl Osmolality L 274.2 280-300 mOsm/L Anion GAP 11.8 8-16 BUN/Creatinine Ratio 11.9 10-20 Estimated GFR 111 >=60 mL/min/1.7 Hematology [id number]:26:00 Result Normal Range Units WBC H 12.9 4.8-10.8 103/uL RBC H 6.0 4.2-5.4 106/uL HGB 15.9 12.0-16.0 g/dl HCT H 47.3 36.9-47.0 % MCV L 79.1 81-99 FL MCH L 26.6 27-31 pg MCHC 33.6 33-37 g/dl RDW 13.6 11.5-15.5 % PLT 329 130-400 103/uL MPV 10.3 7.3-10.4 FL Neutro % H 74.3 40-70 % Lymph % 20.4 20-40 % [place] % 3.8 0-10.0 % Eos % 0.5 0-7.0 % Baso % 0.5 0-2 % Neutro # H 9.6 1.5-7.5 103/uL Lymph # 2.6 0.9-4.0 103/uL [place] # 0.5 0-0.8 103/uL Eos # 0.1 0-0.6 103/uL Baso # 0.1 0-0.1 103/uL Body Fluid [id number]:00:00 Result Normal Range Units pH 5.5 4.5-8.0 Radiology Results [id number]:26:00 Result Normal Range Units MPV 10.3 7.3-10.4 FL History of procedures Procedure Code Code Type Description Date Performed Performing Physician 82308 CPT-4 ROUTINE VENIPUNCTURE 03-14-2016 AJ THOMPSON 14997 CPT-4 METABOLIC PANEL TOTAL CA 03-14-2016 AJ THOMPSON 03719 CPT-4 URINALYSIS, AUTO W/SCOPE 03-14-2016 AJ THOMPSON 89504 CPT-4 COMPLETE CBC W/AUTO DIFF WBC 03-14-2016 AJ THOMPSON J2765 CPT-4 METOCLOPRAMIDE HCL INJECTION 03-14-2016 AJ THOMPSON J7030 CPT-4 NORMAL SALINE SOLUTION INFUS 03-14-2016 AJ THOMPSON 39289 CPT-4 EMERGENCY DEPT VISIT 03-14-2016 AJ THOMPSON 98045 CPT-4 EMERGENCY DEPT VISIT 03-14-2016 AJ THOMPSON 84396 CPT-4 THER/PROPH/DIAG INJ, IV PUSH 03-14-2016 AJ THOMPSON 42564 CPT-4 HYDRATE IV INFUSION, ADD-ON 03-14-2016 AJ THOMPSON Functional status Functional Status Finding Observation Time Diet regular :50 Abdomen Appearance round :50 Abdomen soft Comment: nausea :50 Bowel Sounds present :50 Marks no :50 Urination normal :50 Quality sym/unlabored :50 Cough absent :50 Secretions no :50 Airway natural :50 Chest Tube no :50 Oxygen no :48 Temp >100.4 no :50 Temp <96.8 no :50 Chills with rigors no :50 HR > 90bpm yes :50 Respirations > 20 no :50 Systolic <90 no :50 headache stiff neck no :50 IV Site Location R wrist :50 IV Type peripheral :50 IV Site Information discontinued :50 IV Site Start Attmpt 1 times :20 IV Site Saji 20 :20 IV Site Appearance WNL :20 IV Site Color clear :20 IV Site Patent yes :20 Dressing Type occlusive :20 Nursing Note IV discontinued, cath tip intact. DC instructions given to pt, voiced understanding. RX given to pt x2. Pt ambulated off unit, registration notified. :52 Vital signs Type Value Date Respiration Rate 20breaths per minute :48 Pulse 102beats per minute :48 Oxygen Saturation 97% :48 BP Systolic 102mmHg :48 BP Diastolic 70mmHg :48 Temperature 97.9F :48 Social history Type Value Smoking Status CURRENT EVERY DAY SMOKER Treatment Plan No treatment plan text is available for this visit. Hospital discharge instructions Dismissal Condition good Disposition on DC home DC Inst/Educ Give yes Med/Side Effects Rev yes PNE Vac no Flu Vac no Tetanus Vac no
--- OUTSIDE RECORDS SUMMARY | 2018-12-22 01:06 | XMS REPORT ---
Author [facility] Medical Staff Organization [facility] Address [address] [place] [address] Phone [phone] Care Team Providers Care Respiratory Care Instructor Name Role Phone ALMAS HAWLEY MD PP [phone] Summary purpose TRANSITION OF CARE AUTO GENERATION Chief Complaint and Reason for Visit Admit Diagnosis 1 OTALGIA NOS Problem list No authorized problems tracked for [...] Code Type Description Date Performed Performing Physician 65715 CPT-4 EMERGENCY DEPT VISIT 03-25-2015 OLIVERIO SHEEHAN 23934 CPT-4 EMERGENCY DEPT VISIT 03-25-2015 OLIVERIO SHEEHAN Functional status Functional Status Finding Observation Time Diet regular Comment: Should be diabetic diet 99-01-805226:00 Abdomen Appearance flat 19-45-141385:00 Abdomen non-tender 94-12-661519: Marks no 76-87-315102:00 Urination normal 79-11-752088: Quality sym/unlabored 88-73-945150: Cough absent 99-22-907711: Secretions no 82-43-345370:00 Airway natural 53-29-540671:00 Chest Tube no 68-23-149886:00 Oxygen no 91-06-303889:00 Temp >100.4 no 78-83-276418: Temp <96.8 no 80-83-317034:00 Chills with rigors no 97-94-981039:00 HR > 90bpm yes 91-12-908021: Respirations > 20 no :00 Systolic <90 no 63-15-884821:00 headache stiff neck no 91-36-213292:00 Rapid Resp no :00 Nursing Note DC instructions reviewed, pt voiced understanding. No needs. Amb from unit in stable condition, rx in hand. :15 Vital signs Type Value Date Respiration Rate 18breaths per minute :15 Pulse 90beats per minute :15 Oxygen Saturation 97% 23-78-372328:15 BP Systolic 107mmHg 72-17-103799:15 BP Diastolic 78mmHg 55-91-689457:15 Temperature 98.4F 66-49-115084:15 Weight 127.6LB 10-78-971483:13 Social history Type Value Smoking Status CURRENT EVERY DAY SMOKER Treatment Plan No treatment plan text is available for this visit. Hospital discharge instructions Dismissal Condition good Disposition on DC home DC Inst/Educ Give yes Med/Side Effects Rev yes PNE Vac No Flu Vac No Tetanus Vac Unknown
--- OUTSIDE RECORDS SUMMARY | 2018-12-22 01:06 | XMS REPORT ---
Author [facility] Medical Staff Organization [facility] Address [address] [place] [id number] Phone [phone] Care Team Providers Care Wood Processing Worker Name Role Phone ALMAS HAWLEY MD PP [phone] Summary purpose TRANSITION OF CARE AUTO GENERATION [...] Status Finding Observation Time Abdomen Appearance flat :35 Abdomen non-tender :35 Marks no :35 Urination normal :35 Quality sym/unlabored :35 Cough absent :35 Secretions no :35 Breath Sounds RUL clear :35 Breath Sounds RML clear :35 Breath Sounds RLL clear :35 Breath Sounds RITESH clear :35 Breath Sounds LLL clear :35 Airway natural :35 Chest Tube no :35 Oxygen no 52-81-676122:00 Temp >100.4 no :35 Temp <96.8 no :35 Chills with rigors no :35 HR > 90bpm yes :35 Respirations > 20 no :35 Systolic <90 no :35 headache stiff neck no :35 Rapid Resp no :35 Nursing Note wounds dressed and dc inst discussed with pt. dcd to home in good condition with script x 1 :05 Vital signs Type Value Date Respiration Rate 18breaths per minute :00 Pulse 100beats per minute :00 Oxygen Saturation 100% :00 BP Systolic 122mmHg :00 BP Diastolic 87mmHg :00 Temperature 98.1F :00 Height 62inches :30 Weight 130LB :30 Social history No Social History or smoking [...]
--- OUTSIDE RECORDS SUMMARY | 2018-12-22 01:06 | XMS REPORT ---
Author [facility] Medical Staff Organization [facility] Address [address] [place] [id number] Phone [phone] Care Team Providers Care Paper Conservator Name Role Phone ANG HAWLEY MD PP [phone] Summary purpose TRANSITION OF CARE AUTO GENERATION [...] Relevant diagnostic tests and/or laboratory data RESULTS Radiology Results [id number]:31:00 CT ABD/PEL W CONTRAST PACs Image DATE OF EXAM: Mar 10 2016 [id number] ABD/PELV W CONTRAST : RADIOLOGY REPORT DATE OF SERVICE: 03/10/16 HISTORY: Abdominal pain CT ABDOMEN AND PELVIS WITH CONTRAST 1140 HOURS Axial scans were obtained at 5 mm intervals following administration of oral and intravenous contrast. 100 mL Isovue-300 was utilized for enhancement. The liver, spleen, bile ducts, and gallbladder are normal. The pancreas, adrenal glands, and kidneys are unremarkable. There is no abdominal or pelvic mass or lymphadenopathy. Bowel loops appear normal without inflammatory changes. The uterus appears to be extremely small. The bladder is unremarkable. Note is made of thickening of the skin of the right anterior abdomen, nonspecific. IMPRESSION: No acute abdominal or pelvic abnormality. Thickening of the skin of the right abdominal wall anteriorly. Clinical correlation as to any dermal lesion or scar in this area is needed. MD SASHA Doe/nh03/10/2016 13:01:00 / 03/10/2016 13:37:49 cc:Dr. Ang Hawley This document has been electronically Signed by: On: DATE OF EXAM: Mar 10 2016 [id number] ABD/PELV W CONTRAST : RADIOLOGY REPORT DATE OF SERVICE: 03/10/16 HISTORY: Abdominal pain CT ABDOMEN AND PELVIS WITH CONTRAST 1140 HOURS Axial scans were obtained at 5 mm intervals following administration of oral and intravenous contrast. 100 mL Isovue-300 was utilized for enhancement. The liver, spleen, bile ducts, and gallbladder are normal. The pancreas, adrenal glands, and kidneys are unremarkable. There is no abdominal or pelvic mass or lymphadenopathy. Bowel loops appear normal without inflammatory changes. The uterus appears to be extremely small. The bladder is unremarkable. Note is made of thickening of the skin of the right anterior abdomen, nonspecific. IMPRESSION: No acute abdominal or pelvic abnormality. Thickening of the skin of the right abdominal wall anteriorly. Clinical correlation as to any dermal lesion or scar in this area is needed. Luis Beckwith MD MWD/nh03/10/2016 13:01:00 / 03/10/2016 13:37:49 cc:Dr. Ang Hawley This document has been electronically Signed by: LUIS BECKWITH MD On: Mar 10 20162:31P Result Amended on 2016-03-10 at 14:31:44. Previous status was SC. History of procedures No procedures recorded for [...]
--- OUTSIDE RECORDS SUMMARY | 2018-12-22 01:06 | XMS REPORT ---
Author Author [facility] [employer] [facility] Medical Staff Organization [facility] [facility] Address [address] [place], [place] [address] Phone [phone] Care Team Providers Care Seismic Prospecting Observer Name Role Phone ALMAS HAWLEY MD PP [phone] Summary purpose TRANSITION OF CARE AUTO GENERATION [...] Status Finding Observation Time Abdomen Appearance flat 15-49-672815:20 Abdomen non-tender 71-05-286172:20 Marks no 46-11-123431:20 Urination normal 66-77-480227:20 Quality sym/unlabored 40-64-864413:20 Cough absent :20 Secretions no 89-24-850533:20 Airway natural 66-12-763420:20 Chest Tube no 77-96-471623:20 Oxygen no :30 Temp >100.4 no :20 Temp <96.8 no :20 Chills with rigors no :20 HR > 90bpm yes 80-76-281641:20 Respirations > 20 no :20 Systolic <90 no :20 headache stiff neck no :20 Rapid Resp no 42-49-164944:20 IV Site Location no iv access :25 Nursing Note pt dc'd to home at this time in good condition. pt exited ambulatory with family member who is driving. pt has rx for zithromax and all known belongings in hand. :30 Vital signs Type Value Date Respiration Rate 18breaths per minute :30 Pulse 102beats per minute :30 Oxygen Saturation 97% :30 BP Systolic 114mmHg :30 BP Diastolic 79mmHg :30 Temperature 96.5F :30 Social history Type Value Smoking Status CURRENT EVERY DAY SMOKER Treatment Plan No treatment plan text is available for this visit. Hospital discharge instructions Dismissal Condition good Disposition on DC home DC Inst/Educ Give yes Med/Side Effects Rev yes
--- OUTSIDE RECORDS SUMMARY | 2018-12-22 01:07 | XMS REPORT ---
Author Author [facility] Medical Staff Organization [facility] Address [address] [place], [place] [address] Phone [phone] Care Team Providers Care Tube Closing Machine Operator Name Role Phone ALMAS HAWLEY MD PP [phone] Summary purpose TRANSITION OF CARE AUTO GENERATION [...] Code Type Description Date Performed Performing Physician 14618 CPT-4 EMERGENCY DEPT VISIT 03-23-2015 MALI HERNANDES 50046 CPT-4 EMERGENCY DEPT VISIT 03-23-2015 MALI HERNANDES Functional status Functional Status Finding Observation Time [...] per minute : Pulse 114beats per minute : Oxygen Saturation 99% :45 BP Systolic 112mmHg [...]
--- OUTSIDE RECORDS SUMMARY | 2018-12-22 01:07 | XMS REPORT ---
Author Author [facility] Medical Staff Organization [facility] Address [address] [place] [address] Phone [phone] Care Team Providers Care Heel Former Name Role Phone ALMAS HAWLEY MD PP [phone] Summary purpose TRANSITION OF CARE AUTO GENERATION [...]
--- OUTSIDE RECORDS SUMMARY | 2018-12-22 01:07 | XMS REPORT ---
Author Author [facility] [employer] [facility] Medical Staff Organization [facility] Address [address] [place] [address] Phone [phone] Care Team Providers Care Livestock Farmers Name Role Phone ALMAS HAWLEY MD PP [phone] Summary purpose TRANSITION OF CARE AUTO GENERATION [...] flat :40 Abdomen non-tender :40 Marks no 83-68-674016:40 Urination normal :40 Quality sym/unlabored :40 Cough absent :40 Secretions no :40 Airway natural :40 Chest Tube no :40 Oxygen no :15 Temp >100.4 no :40 Temp <96.8 no :40 Chills with rigors no :40 HR > 90bpm yes :40 Respirations > 20 no :40 Systolic <90 no :40 headache stiff neck no :40 IV Site Location no iv access 57-55-171076:55 Nursing Note pt exited ambulatary in good [...]
--- OUTSIDE RECORDS SUMMARY | 2018-12-22 01:07 | XMS REPORT ---
Author Author [facility] [employer] [facility] Medical Staff Organization [facility] [employer] [facility] Address [address] [place] [address] Phone [phone] Care Team Providers Care Manager Business Process Name Role Phone ANG HAWLEY MD PP [phone] Summary purpose TRANSITION OF CARE AUTO GENERATION [...] tests and/or laboratory data RESULTS Radiology Results 81-27-410298:31:00 CT ABD/PEL W CONTRAST PACs Image DATE OF EXAM: Mar 10 2016 [id number] ABD/PELV W CONTRAST : RADIOLOGY REPORT DATE [...] On: DATE OF EXAM: Mar 10 2016 [id number] ABD/PELV W CONTRAST : RADIOLOGY REPORT DATE [...] this area is needed. Luis Beckwith MD MWD/ks03/10/2016 13:01:00 / 03/10/2016 13:37:49 cc:Dr. Ang Hawley This document has been electronically Signed by: LUIS BECKWITH MD On: Mar 10 20162:31P Result Amended on 2016-03-10 at 14:31:44. Previous status was CA. History of procedures Procedure Code Code Type Description Date Performed Performing Physician 43478 CPT-4 CT ABDOMEN&PELVIS W/CONTRAST 03-10-2016 ANG HAWLEY Q9967 CPT-4 LOCM 300-399MG/ML IODINE,1ML 03-10-2016 ANG HAWLEY Functional status No functional or cognitive status [...]
--- OUTSIDE RECORDS SUMMARY | 2018-12-22 01:07 | XMS REPORT ---
Author Author [facility] Medical Staff Organization [facility] Address [address] [place], [place] [address] Phone [phone] Care Team Providers Care Radiologic Technician Name Role Phone ALMAS HAWLEY MD PP [phone] Summary purpose TRANSITION OF CARE AUTO GENERATION Chief Complaint and Reason for Visit No authorized Reason for Visit (Admitting Diagnosis) is available for this visit. Problem list No authorized problems tracked for continuity of care are available for this visit. Encounters No authorized problems tracked for encounter diagnoses are available for this visit. Medications Home Medications Medication Directions Started Status Source Novolog 100 unit/mL Sub-Q 12 units SubQ 3 Times Daily for diabetes with meals Current Doctor's office Levemir 100 unit/mL subcutaneous solution 50 units SubQ At Bed Time for diabetes Current Doctor's office metformin 1,000 mg tablet 1000 mg Oral 2 Times Daily for diabetes Current Doctor's office acyclovir 400 mg tablet 1 tablet Oral 2 Times Daily for herpes Discont Doctor's office Zoloft 50 mg tablet 1 tablet oral 1 Daily for anxiety Current Patient's Pharmacy Ambien 10 mg tablet 1 tablet oral At Bed Time Current Fish Oil oral 1 capsule oral 1 Daily Current Allergies, adverse reactions, alerts Allergen Category Ingredient Status Reaction Severity Onset Penicillins Drug Allergy Penicillins Confirmed or Verified Rash Penicillins Drug Allergy Penicillins Confirmed or Verified Swelling Immunizations No immunizations recorded for this patient visit Relevant diagnostic tests and/or laboratory data RESULTS Hematology 97-97-370679:45:00 Result Normal Range Units WBC 9.9 4.8-10.8 103/uL RBC 5.0 4.2-5.4 106/uL HGB 14.2 12.0-16.0 g/dl HCT 41.1 36.9-47.0 % MCV 82.7 81-99 FL MCH 28.6 27-31 pg MCHC 34.5 33-37 g/dl RDW 12.3 11.5-15.5 % PLT 253 130-400 103/uL MPV H 10.8 7.3-10.4 FL Neutro % 51.5 40-70 % Lymph % H 41.1 20-40 % [place] % 5.2 0-10.0 % Eos % 1.6 0-7.0 % Baso % 0.6 0-2 % Neutro # 5.1 1.5-7.5 103/uL Lymph # H 4.1 0.9-4.0 103/uL [place] # 0.5 0-0.8 103/uL Eos # 0.2 0-0.6 103/uL Baso # 0.1 0-0.1 103/uL Radiology Results :45:00 Result Normal Range Units MPV H 10.8 7.3-10.4 FL History of procedures No procedures recorded for this patient visit. Functional status Functional Status Finding Observation Time Diet regular :15 Abdomen Appearance flat :15 Abdomen soft :15 Marks no :15 Urination normal :15 Quality sym/unlabored :15 Cough absent :15 Secretions no :15 Airway natural :15 Chest Tube no :15 Oxygen no :45 Temp >100.4 no :15 Temp <96.8 no :15 Chills with rigors no :15 HR > 90bpm no :15 Respirations > 20 no :15 Systolic <90 no :15 headache stiff neck no :15 Rapid Resp no :15 Nursing Note Discharge instructions given, voices understanding. Denies concerns. Amb off unit in good condition. :45 Vital signs Type Value Date Respiration Rate 18breaths per minute :45 Pulse 101beats per minute :45 Oxygen Saturation 100% :45 BP Systolic 119mmHg :45 BP Diastolic 80mmHg 90-59-173050:45 Temperature 97.9F 68-57-223311:45 Social history Type Value Smoking Status CURRENT EVERY DAY SMOKER Treatment Plan No treatment plan text is available for this visit. Hospital discharge instructions Dismissal Condition good Disposition on DC home DC Inst/Educ Give yes
--- OUTSIDE RECORDS SUMMARY | 2018-12-22 01:07 | XMS REPORT ---
Author Author [facility] Medical Staff Organization [facility] Address [address] [place], [place] [address] Phone [phone] Care Team Providers Care Business Objects Analyst Name Role Phone ANG HAWLEY MD PP [phone] ANG HAWLEY MD, PP [phone] Summary purpose TRANSITION OF CARE AUTO GENERATION [...] Relevant diagnostic tests and/or laboratory data RESULTS [id number]:17:00 Discharge Summary DISCHARGE SUMMARY ADMISSION DIAGNOSES: 1. [...] AM/claire04/06/2016 13:17:29/04/06/2016 14:01:47 Clinic Code: [facility] [address] [place] [address] <END HEADER> 09-89-159524:47:00 Progress Note PROGRESS NOTE 04/05/2016 16:47:27 S: [...] 04/05/2016 16:47:27/04/05/2016 19:25:01 Clinic Code: cc: [facility] [address] [place] [address]<END HEADER> 54-94-718229:20:00 Progress Note PROGRESS NOTE 04/04/2016 06:20:18 S: [...] lab in the morning. Codey Hdez MD /wi 04/04/2016 06:20:18/04/04/2016 14:30:17 Clinic Code: cc: [facility] [address] [place] [address]<END HEADER> Blood Cultures 58-43-831409:39:00 Blood Culture Plate Date and Time 04/03/2016 18:46 SourceBLOOD CULTURE REPORT NoGrowth at 1 day. Unless otherwise notified. Final report in 5 Days. Release Date/Time: 04/05/2016 08:14 RIGHT AC Blood Culture Plate Date and Time 04/03/2016 18:46 SourceBLOOD CULTURE REPORT NoGrowth at 1 day. Unless otherwise notified. Final report in 5 Days. Release Date/Time: 04/05/2016 08:14 LEFT AC Routine Cultures 12-89-089829:00:00 Wound Culture Plate Date and Time 04/04/2016 [...] No Organisms Seen. Release Date/Time: 04/05/2016 09:40 Chemistry [id number]:45:00 Result Normal Range Units Sodium 136 134-145 mEq/l Potassium 4.2 3.5-5.1 mEq/l Chloride L 97 98-107 mEq/l CO2 H 32.1 22-28 mEq/l Glucose H 254 70-105 mg/dl BUN L 6 7-18 mg/dl Creatinine L 0.52 0.6-1.0 mg/dl Calcium 9.7 8.4-10.2 mg/dl Osmolality L 278.2 280-300 mOsm/L Anion GAP L 6.9 8-16 BUN/Creatinine Ratio 11.5 10-20 Estimated GFR 149 >=60 mL/min/1.7 67-64-565331:47:00 Result Normal Range Units Sodium 135 134-145 [...] 7.1 10-20 Estimated GFR 137 >=60 mL/min/1.7 10-54-554136:30:00 Result Normal Range Units Sodium L 130 [...] 40-70 % Lymph % 36.8 20-40 % [place] % 5.2 0-10.0 % Eos % 1.1 0-7.0 % Baso % 0.3 0-2 % Neutro # 6.4 1.5-7.5 103/uL Lymph # H 4.2 0.9-4.0 103/uL [place] # 0.6 0-0.8 103/uL Eos # 0.1 0-0.6 103/uL Baso # 0.0 0-0.1 103/uL [id number]:00:00 Result Normal Range Units WBC H 14.4 4.8-10.8 103/uL RBC 4.3 4.2-5.4 106/uL HGB L 11.4 12.0-16.0 g/dl HCT L 34.7 36.9-47.0 % MCV L 80.1 81-99 FL MCH L 26.3 27-31 pg MCHC L 32.9 33-37 g/dl RDW 13.2 11.5-15.5 % PLT 308 130-400 103/uL MPV 10.2 7.3-10.4 FL Neutro % 57.2 40-70 % Lymph % 34.7 20-40 % [place] % 6.5 0-10.0 % Eos % 1.0 0-7.0 % Baso % 0.3 0-2 % Neutro # H 8.2 1.5-7.5 103/uL Lymph # H 5.0 0.9-4.0 103/uL [place] # H 0.9 0-0.8 103/uL Eos # 0.2 0-0.6 103/uL Baso # 0.1 0-0.1 103/uL [id number]:30:00 Result Normal Range Units WBC H 11.5 4.8-10.8 103/uL RBC 4.9 4.2-5.4 106/uL HGB 12.8 12.0-16.0 g/dl HCT 38.9 36.9-47.0 % MCV L 79.9 81-99 FL MCH L 26.3 27-31 pg MCHC L 32.9 33-37 g/dl RDW 13.5 11.5-15.5 % PLT 320 130-400 103/uL MPV H 10.6 7.3-10.4 FL Neutro % 67.4 40-70 % Lymph % 26.0 20-40 % [place] % 4.9 0-10.0 % Eos % 1.0 0-7.0 % Baso % 0.4 0-2 % Neutro # H 7.7 1.5-7.5 103/uL Lymph # 3.0 0.9-4.0 103/uL [place] # 0.6 0-0.8 103/uL Eos # 0.1 0-0.6 103/uL Baso # 0.1 0-0.1 103/uL Special Chemistry [id number]:39:00 Result Normal Range Units HCG (Qualitative) Negative [id number]:30:00 Result Normal Range Units Hemoglobin A1C H 12.5 4.5-6.2 % Radiology Results [id number]:45:00 Result Normal Range Units MPV 10.1 7.3-10.4 FL [id number]:47:00 Result Normal Range Units MPV 10.1 7.3-10.4 FL 74-63-898232:54:00 CT FACIAL W/CONT PACs Image DATE OF EXAM: 2015 [id number] FACIAL BONES W CONTRAST : RADIOLOGY REPORT [...] Signed by: On: DATE OF EXAM: 2015 [id number] FACIAL BONES W CONTRAST : RADIOLOGY REPORT [...] continued followup is recommended. Devang Jeffries DO WP/nh 04/04/2016 09:04:00 / 04/04/2016 10:57:57 cc:Dr. Ang Hawley This document has been electronically Signed by: DEVANG JEFFRIES DO On: 2015 12:54P HYPERGLYCEMIADENTAL ABSCESS Result Amended on 2016-04-04 at 12:54:20. Previous status was FL. HYPERGLYCEMIADENTAL ABSCESS [id number]:00:00 Result Normal Range Units MPV 10.2 7.3-10.4 FL [id number]:30:00 Result Normal Range Units MPV H 10.6 7.3-10.4 FL History of procedures No procedures recorded for this patient visit. Functional status Functional Status Finding Observation Time Hearing Prob Loc none 46-63-127289:30 Vision Problems yes :30 Vision Correct Dev glasses :30 Ambulation Asst Dev none 47-26-325280:30 Range of Motion full :00 Muscle Strength RUE 5 ROM full resist :00 Muscle Strength RLE 5 ROM full resist :00 Muscle Strength LUE 5 ROM full resist :00 Muscle Strength LLE 5 ROM full resist :00 Transfers independent 04-91-238031:00 Ambulation in room :00 Balance steady :00 Nutrition normal :00 Diet ADA specify calorie Comment: 2200 10-23-596988:00 Oral Cavity ulceration :00 Teeth missing (specify) Comment: few, dental abcess :00 Dental Hygiene poor :00 Abdomen Appearance round :00 Abdomen soft :00 Bowel Sounds present :00 NG Tube no 53-96-425812:00 Marks no :00 Cont Bladder Irr no :00 Ostomy no :00 Stool Comment: BM today per patient :38 Color normal :27 Consistency liquid :27 Urination normal :00 Urine Clarity clear : Urine Color yellow :00 Quality sym/unlabored : Cough absent :00 Secretions no :00 Breath Sounds RUL clear :00 Breath Sounds RML clear :00 Breath Sounds RLL clear :00 Breath Sounds RITESH clear :00 Breath Sounds LLL clear :00 Airway natural :00 Chest Tube no :00 Oxygen no 08-86-892713:00 C-PAP no :00 BI-PAP no :00 New Infection skin inflammation :00 Temp >100.4 no :00 Temp <96.8 no 80-45-416789:00 Chills with rigors no :00 HR > 90bpm yes :00 Respirations > 20 no :00 Systolic <90 no :00 headache stiff neck no :00 WBC > 51220 no 12-33-129335:00 WBC < 4000 no :00 Infection and 2 Yes Comment: Physician saw patient this AM and believed things to be stable to improving :44 IV Site Location Left AC :00 IV Type peripheral :00 IV Site Information discontinued : IV Site Start Attmpt 1 times :33 IV Site Saji 20 : IV Site Appearance WNL : IV Site Color clear : IV Site Patent yes : Dressing Changed yes : Dressing Type gauze : Nursing Note Pt left unit amb with family at side, all personal belonging with pt. :05 Cognitive Status Finding Observation Time Oriented To Date 5 Yes : Oriented To Place 5 Yes : Name 3 Objects 3 Yes : Name Object in Rm 2 Yes :30 Recall 3 Objects 3 Yes :30 Repeats a Phrase 1 Yes : Follows Verbal Direc 3 Yes : Follows Written Dire 1 Yes : Write a Sentance 1 Yes : Draw an Object 1 Yes :30 Mini Mental Total 25 points :30 Less than 20 Phys not applicable :30 Learning Ability comprehends well :15 Neurological yes :15 Psychological yes :15 Physical no :15 Hearing no :15 Psychology Assistant Needed no :15 Sign Language no :15 Emotional no :15 Vision no :15 Laguage no :15 Financial yes :15 Vital signs Type Value Date Respiration Rate 18breaths per minute : Pulse 110beats per minute : Oxygen Saturation 98% : BP Systolic 107mmHg : BP Diastolic 70mmHg : Temperature 98.6F :49 Height 63inches 41-89-204082:27 Weight 122.2LB 88-32-659624:27 Social history Type Value Smoking Status CURRENT LIGHT TOBACCO SMOKER Treatment Plan No treatment plan text is available for this visit. Hospital discharge instructions Dismissal Condition fair Disposition on DC admitted Comment: 211 Valuables yes Valuable Type cell phone Comment: Purse PNE Vac unsure Flu Vac unsure
--- OUTSIDE RECORDS SUMMARY | 2018-12-22 01:07 | XMS REPORT ---
Author Author [facility] [employer] [facility] Medical Staff Organization [facility] Address [address] [place], [place] [address] Phone [phone] Care Team Providers Care Digital Solution Architect Name Role Phone MARLEEN ROSALES, ALMAS PP [phone] Summary purpose TRANSITION OF CARE AUTO GENERATION [...] Code Type Description Date Performed Performing Physician 67367 CPT-4 EMERGENCY DEPT VISIT 03-31-2016 MALLIKA WILKS 42532 CPT-4 EMERGENCY DEPT VISIT 03-31-2016 MALLIKA WILKS Functional status Functional Status Finding Observation Time Abdomen Appearance round :43 Abdomen soft :43 Marks no 54-18-830523:43 Urination normal 55-92-979843:43 Quality sym/unlabored 17-19-948108:43 Cough absent :43 Secretions no :43 Breath Sounds RUL clear :43 Breath Sounds RML clear :43 Breath Sounds RLL clear :43 Breath Sounds RITESH clear :43 Breath Sounds LLL clear :43 Airway natural :43 Chest Tube no :43 Oxygen no :17 Temp >100.4 no :43 Temp <96.8 no :43 Chills with rigors no : HR > 90bpm yes : Respirations > 20 no :43 Systolic <90 no :43 headache stiff neck no :43 Nursing Note Dismissed home per Ann Wilks PA-C. Discharge instructions given and understood by pt who verbalized understanding.. Ambulated to exit in stable condition. :17 Vital signs Type Value Date Respiration Rate 18breaths per minute : Pulse 112beats per minute : Oxygen Saturation 99% :17 BP Systolic 122mmHg :17 BP Diastolic 72mmHg :17 Temperature 98.3F :17 Social history Type Value Smoking Status CURRENT EVERY DAY SMOKER Treatment Plan No treatment plan text is available for this visit. Hospital discharge instructions Dismissal Condition good Disposition on DC home DC Inst/Educ Give yes Med/Side Effects Rev yes PNE Vac no Flu Vac no Tetanus Vac unknown
--- OUTSIDE RECORDS SUMMARY | 2018-12-22 01:07 | XMS REPORT ---
Author Author [facility] Medical Staff Organization [facility] Address [address] [place], [place] [address] Phone [phone] Care Team Providers Care General Production Laborer Name Role Phone ALMAS HAWLEY MD PP [phone] Summary purpose TRANSITION OF CARE AUTO GENERATION [...] tests and/or laboratory data RESULTS Routine Urinalysis 01-28-140949:00:00 Result Normal Range Units Color YELLOW Clarity Hazy Specific [place] 1.020 1.003-1.035 pH 5.5 4.5-8.0 Glucose 3+ Bilirubin NEGATIVE Ketones 3+ Protein NEGATIVE Urobilinogen 0.2 0-0.2 E.U./dL Nitrites NEGATIVE Blood NEGATIVE Leukocytes NEGATIVE WBCs 0-5 RBCs 0-5 Squamous Epithelial 3+ Bacteria 1+ Yeast 1+ Chemistry 69-24-236905:26:00 Result Normal Range Units Sodium L 131 134-145 mEq/l Potassium 4.1 3.5-5.1 mEq/l Chloride L 95 98-107 mEq/l CO2 24.2 22-28 mEq/l Glucose H 336 70-105 mg/dl BUN 8 7-18 mg/dl Creatinine 0.67 0.6-1.0 mg/dl Calcium 9.7 8.4-10.2 mg/dl Osmolality L 274.2 280-300 mOsm/L Anion GAP 11.8 8-16 BUN/Creatinine Ratio 11.9 10-20 Estimated GFR 111 >=60 mL/min/1.7 Hematology :26:00 Result Normal Range Units WBC H 12.9 4.8-10.8 103/uL RBC H 6.0 4.2-5.4 106/uL HGB 15.9 12.0-16.0 g/dl HCT H 47.3 36.9-47.0 % MCV L 79.1 81-99 FL MCH L 26.6 27-31 pg MCHC 33.6 33-37 g/dl RDW 13.6 11.5-15.5 % PLT 329 130-400 103/uL MPV 10.3 7.3-10.4 FL Neutro % H 74.3 40-70 % Lymph % 20.4 20-40 % [place] % 3.8 0-10.0 % Eos % 0.5 0-7.0 % Baso % 0.5 0-2 % Neutro # H 9.6 1.5-7.5 103/uL Lymph # 2.6 0.9-4.0 103/uL [place] # 0.5 0-0.8 103/uL Eos # 0.1 0-0.6 103/uL Baso # 0.1 0-0.1 103/uL Body Fluid :00:00 Result Normal Range Units pH 5.5 4.5-8.0 Radiology Results :26:00 Result Normal Range Units MPV 10.3 7.3-10.4 FL History of procedures No procedures [...] Appearance WNL :20 IV Site Color clear : IV Site Patent yes :20 Dressing Type [...]
--- OUTSIDE RECORDS SUMMARY | 2018-12-22 01:08 | XMS REPORT ---
Author Author [facility] [employer] [facility] Medical Staff Organization [facility] Address [address] [place] [address] Phone [phone] Care Team Providers Care City Attorney Name Role Phone ALMAS HAWLEY MD PP [phone] Summary purpose TRANSITION OF CARE AUTO GENERATION [...] tests and/or laboratory data RESULTS Routine Urinalysis :30:00 Result Normal Range Units Color YELLOW Clarity Hazy Specific [place] <=1.005 1.003-1.035 pH 6.0 4.5-8.0 Glucose 3+ Bilirubin NEGATIVE Ketones NEGATIVE Protein NEGATIVE Urobilinogen 0.2 0-0.2 E.U./dL Nitrites NEGATIVE Blood NEGATIVE Leukocytes NEGATIVE WBCs 5-10 RBCs 5-10 Squamous Epithelial Few Bacteria Occasional Yeast 2+ Body Fluid 48-19-918882:30:00 Result Normal Range Units pH 6.0 4.5-8.0 History of procedures Procedure Code Code Type Description Date Performed Performing Physician 23364 CPT-4 URINALYSIS, AUTO W/SCOPE 07-28-2015 RETA BECERRA 07739 CPT-4 EMERGENCY DEPT VISIT 07-28-2015 RETA BECERRA 44066 CPT-4 EMERGENCY DEPT VISIT 07-28-2015 RETA BECERRA Functional status Functional Status Finding Observation Time Abdomen Appearance flat :25 Abdomen non-tender :25 Marks no 72-07-879023:25 Urination normal 98-84-200953:25 Quality sym/unlabored : Cough absent : Secretions no : Airway natural : Chest Tube no : Oxygen no : Temp >100.4 no : Temp <96.8 no : Chills with rigors no : HR > 90bpm yes : Respirations > 20 no : Systolic <90 no : headache stiff neck no : Rapid Resp no : Nursing Note Dismissed home per Dr. Becerra. Discharge instructions given and understood by pt who verbalized understanding. Ambulated to exit in stable conditon. 07-29-2015 00:00 Vital signs Type Value Date Respiration Rate 18breaths per minute :00 Pulse 82beats per minute :00 Oxygen Saturation 100% :00 BP Systolic 110mmHg :00 BP Diastolic 82mmHg :00 Temperature 97.4F :00 Social history Type Value Smoking Status CURRENT EVERY DAY SMOKER Treatment Plan No treatment plan text is available for this visit. Hospital discharge instructions Dismissal Condition good Disposition on DC home DC Inst/Educ Give yes Med/Side Effects Rev yes PNE Vac no Flu Vac no Tetanus Vac no
--- OUTSIDE RECORDS SUMMARY | 2018-12-22 01:08 | XMS REPORT ---
Author Author [facility] Medical [facility] Organization [facility] Address [address] [place], [place] [address] Phone [phone] Care Team Providers Care Supervisor Color Paste Mixing Name Role Phone ALMAS HAWLEY MD PP [phone] Summary purpose TRANSITION OF CARE AUTO GENERATION [...] Code Type Description Date Performed Performing Physician 44219 CPT-4 EMERGENCY DEPT VISIT 07-13-2015 RETA GUILLERMO 39261 CPT-4 EMERGENCY DEPT VISIT 07-13-2015 RETA GUILLERMO Functional status Functional Status Finding Observation Time Abdomen Appearance flat 89-03-376032:20 Abdomen non-tender 71-19-056233:20 Marks no 78-03-907968:20 Urination normal 98-12-159740:20 Quality sym/unlabored 95-74-387959:20 Cough absent :20 Secretions no 58-04-854361:20 Airway natural 33-38-124825:20 Chest Tube no 51-32-404299:20 Oxygen no :30 Temp >100.4 no :20 Temp <96.8 no :20 Chills with rigors no :20 HR > 90bpm yes 40-40-182091:20 Respirations > 20 no :20 Systolic <90 no :20 headache stiff neck no :20 Rapid Resp no :20 IV Site Location no iv access :25 [...]
--- OUTSIDE RECORDS SUMMARY | 2018-12-22 01:08 | XMS REPORT ---
Author [facility] [employer] [facility] Medical Staff Organization [facility] Address [address] [place], [place] [address] Phone [phone] Care Team Providers Care Tugboat Engineer Name Role Phone ALMAS HAWLEY MD PP [phone] Summary purpose TRANSITION OF CARE AUTO GENERATION [...] Status Finding Observation Time Abdomen Appearance round 89-58-842874:40 Abdomen soft :40 Marks no 99-63-294266:40 Urination normal :40 Quality sym/unlabored :40 Cough absent :40 Secretions no 61-59-514938:40 Airway natural :40 Chest Tube no :40 Oxygen no 44-68-593343:48 Temp >100.4 no :40 Temp <96.8 no :40 Chills with rigors no :40 HR > 90bpm yes :40 Respirations > 20 no :40 Systolic <90 no :40 headache stiff neck no :40 Nursing Note Pt reports viscous lidocaine decreased pain to 5/10. Viscous lidocaine given to pt for home use. VSS. Discharge instructions reviewed. Pt verbalizes understanding. Denies needs, questions, or concerns. Discharge instructions signed et copy to pt. Pt discharged with visitors in good, stable condition. :48 Vital signs Type Value Date Respiration Rate 16breaths per minute :48 Pulse 94beats per minute :48 Oxygen Saturation 98% :48 BP Systolic 109mmHg :48 BP Diastolic 75mmHg :48 Temperature 98.0F :48 Height 63inches :26 Weight 118.2LB 31-71-826144:26 Social history Type Value Smoking Status CURRENT EVERY DAY SMOKER Treatment Plan No treatment plan text is available for this visit. Hospital discharge instructions Dismissal Condition good Disposition on DC home DC Inst/Educ Give yes Med/Side Effects Rev yes Flu Vac no
--- OUTSIDE RECORDS SUMMARY | 2018-12-22 01:08 | XMS REPORT ---
Author [facility] Organization [facility] Address [address] [place], [place] [address] Phone [phone] Care Team Providers Care Band Sawmill Operator Name Role Phone MARLEEN ROSALES, ALMAS PP [phone] Summary purpose TRANSITION OF CARE AUTO GENERATION [...] round :43 Abdomen soft :43 Marks no :43 Urination normal :43 Quality sym/unlabored :43 Cough absent :43 Secretions no :43 Breath Sounds RUL clear :43 Breath Sounds RML clear :43 Breath Sounds RLL clear :43 Breath Sounds RITESH clear :43 Breath Sounds LLL clear :43 Airway natural :43 Chest Tube no :43 Oxygen no :17 Temp >100.4 no :43 Temp <96.8 no :43 Chills with rigors no :43 HR > 90bpm yes :43 Respirations > 20 no :43 Systolic <90 no :43 headache stiff neck no :43 Nursing Note Dismissed home per Ann Wilks PA-C. Discharge instructions given and understood by pt who verbalized understanding.. Ambulated to exit in stable condition. :17 Vital signs Type Value Date Respiration Rate 18breaths per minute :17 Pulse 112beats per minute :17 Oxygen Saturation 99% :17 BP Systolic 122mmHg [...]
--- OUTSIDE RECORDS SUMMARY | 2018-12-22 01:08 | XMS REPORT ---
Author [facility] Organization [facility] Address [address] [place] [id number] Phone [phone] Care Team Providers Care Carpentry Foreman Name Role Phone ALMAS HAWLEY MD PP [phone] Summary purpose TRANSITION OF CARE AUTO GENERATION [...] tests and/or laboratory data RESULTS Routine Urinalysis 89-66-141473:15:00 Result Normal Range Units Color YELLOW Clarity Hazy Specific [place] 1.015 1.003-1.035 pH 5.5 4.5-8.0 Glucose 3+ Bilirubin NEGATIVE Ketones 1+ Protein 1+ Urobilinogen 0.2 0-0.2 E.U./dL Nitrites NEGATIVE Blood NEGATIVE Leukocytes NEGATIVE WBCs No WBC's Seen RBCs 0-5 Squamous Epithelial 1+ Bacteria Rare Amount Drug Screen In House 62-13-250021:15:00 Result Normal Range Units Amphetamine Negative Negative Barbiturates Negative Negative Benzodiazepines Negative Negative Cannabinoids Negative Negative *Triage TOXis a medical drug screen to be used only for assessment and treatment of patients. This drug screen cannot be used for employment or legal purposes. Cocaine Negative Negative Mamp/MDMA Negative Negative Methadone Negative Negative Opiates Negative Negative Phencyclidine Negative Negative Tricyclic Antidepressants Negative Negative Chemistry 68-62-491673:10:00 Result Normal Range Units Sodium L 128 [...] 40-70 % Lymph % 27.8 20-40 % [place] % 4.8 0-10.0 % Eos % 0.6 0-7.0 % Baso % 0.5 0-2 % Neutro # H 7.9 1.5-7.5 103/uL Lymph # 3.3 0.9-4.0 103/uL [place] # 0.6 0-0.8 103/uL Eos # 0.1 0-0.6 103/uL Baso # 0.1 0-0.1 103/uL Special Chemistry :33:00 Result Normal Range Units Acetone Serum AB Small Amount Negative :10:00 Result Normal Range Units HCG (Qualitative) Negative Hemoglobin A1C H 11.0 4.5-6.2 % Body Fluid 81-17-484662:15:00 Result Normal Range Units pH 5.5 4.5-8.0 Radiology Results 50-96-672275:10:00 Result Normal Range Units MPV 9.9 7.3-10.4 FL History of procedures Procedure Code Code Type Description Date Performed Performing Physician 47393 CPT-4 COMPLETE CBC W/AUTO DIFF WBC 02-18-2016 RETA EAGLE 04120 CPT-4 COMPREHEN METABOLIC PANEL 02-18-2016 RETA E[facility]LE 84054 CPT-4 CHORIONIC GONADOTROPIN ASSAY 02-18-2016 RETA E[facility]LE 17189 CPT-4 ASSAY OF LIPASE 02-18-2016 RETA E[facility] 80114 CPT-4 URINALYSIS, AUTO W/SCOPE 02-18-2016 RETA E[facility] 87434 CPT-4 DRUG SCREEN NON TLC DEVICES 02-18-2016 RETA E[facility]LE 58071 CPT-4 GLYCOSYLATED HEMOGLOBIN TEST 02-18-2016 RETA E[facility]LE 49353 CPT-4 TEST FOR ACETONE/KETONES 02-18-2016 RETA E[facility]LE 00948 CPT-4 BLOOD GASES: PH, PO2 & PCO2 02-18-2016 RETA E[facility]LE J1885 CPT-4 TORADOL SYR 30MG/ML 02-18-2016 RETA E[facility]LE J2405 CPT-4 ONDANSETRON HCL INJECTION 02-18-2016 RETA E[facility] J7030 CPT-4 NORMAL SALINE SOLUTION INFUS 02-18-2016 RETA E[facility]LE J1815 CPT-4 INSULIN INJECTION 02-18-2016 RETA E[facility]LE J1815 CPT-4 INSULIN INJECTION 02-18-2016 RETA E[facility] 19105 CPT-4 ROUTINE VENIPUNCTURE 02-18-2016 RETA E[facility] 58231 CPT-4 EMERGENCY DEPT VISIT 02-17-2016 [facility] 34976 CPT-4 EMERGENCY DEPT VISIT 02-17-2016 [facility] 33479 CPT-4 THER/PROPH/DIAG INJ, IV PUSH 02-17-2016 [facility] 49426 CPT-4 TX/PRO/DX INJ NEW DRUG ADDON 02-17-2016 RETA E[facility] Functional status Functional Status Finding Observation Time Muscle Strength RUE 5 ROM full resist :45 Muscle Strength RLE 5 ROM full resist :45 Muscle Strength LUE 5 ROM full resist :45 Muscle Strength LLE 5 ROM full resist :45 Diet regular :45 Abdomen Appearance round :45 Abdomen tender :45 Bowel Sounds present :45 Marks no : Urination normal :45 Quality sym/unlabored : Cough absent : Secretions no : Airway natural : Chest Tube no :45 Oxygen no :40 Temp >100.4 no : Temp <96.8 no : Chills with rigors no : HR > 90bpm yes : Respirations > 20 no : Systolic <90 no : headache stiff neck no :45 IV Site Location L AC space :30 IV Type peripheral :30 IV Site Information discontinued : IV Site Start Attmpt 1 times 52-31-561406:00 IV Site Saji 20 :30 IV Site [...]
--- OUTSIDE RECORDS SUMMARY | 2018-12-22 01:08 | XMS REPORT ---
Author Author [facility] Medical Staff Organization [facility] Address [address] [place], [place] [address] Phone [phone] Care Team Providers Care Senior Economist Name Role Phone ALMAS HAWLEY MD PP [phone] Summary purpose TRANSITION OF CARE AUTO GENERATION Chief Complaint and Reason for Visit Admit Diagnosis 1 COUGH Problem list No authorized problems tracked for [...] diagnostic tests and/or laboratory data RESULTS Hematology 06-23-144732:45:00 Result Normal Range Units WBC 9.9 4.8-10.8 103/uL RBC 5.0 4.2-5.4 106/uL HGB 14.2 12.0-16.0 g/dl HCT 41.1 36.9-47.0 % MCV 82.7 81-99 FL MCH 28.6 27-31 pg MCHC 34.5 33-37 g/dl RDW 12.3 11.5-15.5 % PLT 253 130-400 103/uL MPV H 10.8 7.3-10.4 FL Neutro % 51.5 40-70 % Lymph % H 41.1 20-40 % [place] % 5.2 0-10.0 % Eos % 1.6 0-7.0 % Baso % 0.6 0-2 % Neutro # 5.1 1.5-7.5 103/uL Lymph # H 4.1 0.9-4.0 103/uL [place] # 0.5 0-0.8 103/uL Eos # 0.2 0-0.6 103/uL Baso # 0.1 0-0.1 103/uL Radiology Results 12-99-070013:45:00 Result Normal Range Units MPV H 10.8 7.3-10.4 FL History of procedures Procedure Code Code Type Description Date Performed Performing Physician 10306 CPT-4 COMPLETE CBC W/AUTO DIFF WBC 01-06-2015 MALI HERNANDES 39744 CPT-4 STREP A ASSAY W/OPTIC 01-06-2015 MALI HERNANDES 89639 CPT-4 MYCOPLASMA ANTIBODY 01-06-2015 MALI HERNANDES 51561 CPT-4 ROUTINE VENIPUNCTURE 01-06-2015 MALI HERNANDES Functional status Functional Status Finding Observation Time Diet regular 16-11-703036:15 Abdomen Appearance flat 75-27-166998:15 Abdomen soft 94-23-912754:15 Marks no 93-80-794338:15 Urination normal 48-58-054702:15 Quality sym/unlabored 05-01-292336:15 Cough absent :15 Secretions no 96-50-516678:15 Airway natural 89-45-047846:15 Chest Tube no 97-80-962257:15 Oxygen no 15-21-452532:45 Temp >100.4 no :15 Temp <96.8 no :15 Chills with rigors no :15 HR > 90bpm no :15 Respirations > 20 no :15 Systolic <90 no :15 headache stiff neck no :15 Rapid Resp no 80-82-522248:15 Nursing Note Discharge instructions given, voices understanding. Denies concerns. Amb off unit in good condition. 55-39-344550:45 Vital signs Type Value Date Respiration Rate 18breaths per minute :45 Pulse 101beats per minute :45 Oxygen Saturation 100% :45 BP Systolic 119mmHg :45 BP Diastolic 80mmHg :45 Temperature 97.9F 11-92-507633:45 Social history Type Value Smoking Status CURRENT EVERY DAY SMOKER Treatment Plan No treatment plan text is available for this visit. Hospital discharge instructions Dismissal Condition good Disposition on DC home DC Inst/Educ Give yes
--- OUTSIDE RECORDS SUMMARY | 2018-12-22 01:08 | XMS REPORT ---
Author [facility] [employer] [facility] Medical Staff Organization [facility] Address [address] [place] [address] Phone [phone] Care Team Providers Care Roster Clerk Name Role Phone ALMAS HAWLEY MD PP [phone] Summary purpose TRANSITION OF CARE AUTO GENERATION [...] Code Type Description Date Performed Performing Physician 67244 CPT-4 EMERGENCY DEPT VISIT 03-25-2016 MALI HERNANDES 17869 CPT-4 EMERGENCY DEPT VISIT 03-25-2016 MALI HERNANDES Functional status Functional Status Finding Observation Time Abdomen Appearance round :40 Abdomen soft :40 Marks no 39-60-411341:40 Urination normal 65-76-006901:40 Quality sym/unlabored :40 Cough absent :40 Secretions no :40 Airway natural :40 Chest Tube no :40 Oxygen no 43-21-986725:48 Temp >100.4 no :40 Temp <96.8 no [...] 98.0F :48 Height 63inches :26 Weight 118.2LB :26 Social history Type Value Smoking Status CURRENT EVERY DAY SMOKER Treatment Plan No treatment plan text is available for this visit. Hospital discharge instructions Dismissal Condition good Disposition on DC home DC Inst/Educ Give yes Med/Side Effects Rev yes Flu Vac no
--- OUTSIDE RECORDS SUMMARY | 2018-12-22 01:08 | XMS REPORT ---
Author [facility] [employer] [facility] Medical Staff Organization [facility] Address [address] [place], [place] [address] Phone [phone] Care Team Providers Care Commissioner Conservation Of Resources Name Role Phone ALMAS HAWLEY MD PP [phone] Summary purpose TRANSITION OF CARE AUTO GENERATION [...] Diet regular Comment: Should be diabetic diet : Abdomen Appearance flat 52-30-222772:00 Abdomen non-tender 89-87-301600:00 Marks no 90-38-327474:00 Urination normal : Quality sym/unlabored : Cough absent : Secretions no 27-81-772470: Airway natural : Chest Tube no 71-29-702573: Oxygen no : Temp >100.4 no : Temp <96.8 no 65-47-454332:00 Chills with rigors no 85-67-650732: HR > 90bpm yes 54-97-766868: Respirations > 20 no : Systolic <90 no 46-94-705868: headache stiff neck no 08-81-594072:00 Rapid Resp no :00 Nursing Note DC instructions reviewed, pt voiced understanding. No needs. Amb from unit in stable condition, rx in hand. :15 Vital signs Type Value Date Respiration Rate 18breaths per minute :15 Pulse 90beats per minute :15 Oxygen Saturation 97% :15 BP Systolic 107mmHg :15 BP Diastolic 78mmHg 05-23-500106:15 Temperature 98.4F 10-24-352306:15 Weight 127.6LB 88-00-295078:13 Social history Type Value Smoking Status CURRENT EVERY DAY SMOKER Treatment Plan No treatment plan text is available for this visit. Hospital discharge instructions Dismissal Condition good Disposition on DC home DC Inst/Educ Give yes Med/Side Effects Rev yes PNE Vac No Flu Vac No Tetanus Vac Unknown
--- OUTSIDE RECORDS SUMMARY | 2018-12-22 01:09 | XMS REPORT | Clinical Summary ---
Author Author Admin, QIE Organization [facility] Address Unknown Phone Unavailable Allergies, Adverse Reactions, Alerts Allergy Name Reaction Description Start Date Severity Status Provider SULFA Critical Active Gabriel Hunt DO PENICILLIN Critical Active Ang Markham MD Conditions or Problems Problem Name Problem Code Onset Date Status Entry Date Provider Comment Standard Description Annotate DEPRESSION 311 Resolved Ang Markham MD Depressive disorder, not elsewhere classified DIABETES MELLITUS, INSULIN DEPENDENT (IDDM) 250.01 Inactive 2012 Ang Markham MD Diabetes mellitus without mention of complication , type I [juvenile type], not stated as uncontrolled Diabetes mellitus 250.00 Resolved Ang Markham MD Diabetes mellitus without mention of complication, type II or unspecified type, not stated as uncontrolled AMENORRHEA 626.0 Resolved Eri Borges MD PhD Absence of menstruation ABDOMINAL PAIN RIGHT LOWER QUADRANT 789.03 Resolved Eri Borges MD PhD Abdominal pain, right lower quadrant LOM 382.9 Resolved Eri Borges MD PhD Unspecified otitis media PSORIASIS 696.1 Resolved Ang Markham MD Other psoriasis SINUSITIS, ACUTE 461.9 Resolved Ang Markham MD Acute sinusitis, unspecified Constipation 564.00 Resolved Ang Markham MD Constipation, unspecified Anal or rectal pain 569.42 Resolved Ang Markham MD Anal or rectal pain CANDIDAL VAGINITIS 112.1 Resolved Ang Markham MD Candidiasis of vulva and vagina Insomnia 780.52 Active Ang Markham MD Insomnia, unspecified Joint crepitus, knee 719.66 Resolved Ang Markham MD Other symptoms referable to lower leg joint Knee pain, bilateral 719.46 Resolved Ang Markham MD Pain in joint involving lower leg Cystitis, acute 595.0 Resolved Ang Markham MD Acute cystitis UTI 599.0 Resolved Ang Markham MD Urinary tract infection, site not specified Insomnia 780.52 Resolved Ang Markham MD Insomnia, unspecified Diabetes mellitus 250.00 Resolved Ang Markham MD Diabetes mellitus without mention of complication, type II or unspecified type, not stated as uncontrolled Vaginal discharge 623.5 Resolved Ang Markham MD Leukorrhea, not specified as infective Depression/anxiety 300.4 Active Ang Markham MD Dysthymic disorder Amenorrhea 626.0 Resolved Ang Markham MD Absence of menstruation Health screening V70.0 Active Ang Markham MD Routine general medical examination at a health care facility Cellulitis, ankle, left 682.6 Resolved Ang Markham MD Cellulitis and abscess of leg, except foot Microalbuminuria 791.0 Active Ang Markham MD Proteinuria Diabetes mellitus, type I, with hypoglycemia 250.81 Resolved Ang Markham MD Diabetes mellitus with other specified manifestations, type I [juvenile type], not stated as uncontrolled prison use 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 V58.67 Resolved Ang Mrakham MD Long-term (current) use of insulin Neurotic excoriations 698.4 Active Gabriel Hunt DO 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] Abdominal pain 789.00 Resolved Ang Markham MD Abdominal pain, unspecified site Diabetes mellitus, type I, with hyperglycemia 250.01 Active 2015 Celestine PEARCE Diabetes mellitus without mention of complication, type I [juvenile type], not stated as uncontrolled Hyperlipidemia 272.4 Active Ang Markham MD Other and unspecified hyperlipidemia Hematochezia 578.1 Resolved Ang Markham MD Blood in stool Nausea 787.02 Resolved Ang Markham MD Nausea alone Otitis externa, acute, left 380.12 Resolved Ang Markham MD Acute swimmers' ear 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 V58.67 Active Celestine PEARCE Long-term (current) use of insulin DEPRESSION ICD-311 Inactive Ang Markham MD Diabetes mellitus ICD-250.00 Inactive Ang Markham MD AMENORRHEA ICD-626.0 Inactive Eri Borges MD PhD ABDOMINAL PAIN RIGHT LOWER QUADRANT ICD-789.03 Inactive Eri Borges MD PhD LOM ICD-382.9 Inactive Eri Borges MD PhD PSORIASIS ICD-696.1 Inactive Ang Markham MD SINUSITIS, ACUTE ICD-461.9 Inactive Ang Markham MD Constipation ICD-564.00 Inactive Ang Markham MD Anal or rectal pain ICD-569.42 Inactive Ang Markham MD CANDIDAL VAGINITIS ICD-112.1 Inactive Ang Markham MD Joint crepitus, knee ICD-719.66 Nathna Markham MD Knee pain, bilateral ICD-719.46 Nathan Markham MD Cystitis, acute ICD-595.0 Inactive Ang Markham MD UTI ICD-599.0 Nathan Markham MD Insomnia ICD-780.52 Nathan Markham MD Diabetes mellitus ICD-250.00 Nathan Markham MD Vaginal discharge ICD-623.5 Nathan Markham MD Amenorrhea ICD-626.0 Nathan Markham MD Cellulitis, ankle, left ICD-682.6 Nathan Markham MD Diabetes mellitus, type I, with hypoglycemia ICD-250.81 Nathan Markham MD prison use 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 ICD-V58.67 Nathan Markham MD Abdominal pain ICD-789.00 Nathan Markham MD Hematochezia ICD-578.1 Nathan Markham MD Nausea ICD-787.02 Nathan Markham MD 06/26 Otitis externa, acute, left ICD-380.12 Nathan Markham MD Medication List Medication Instructions Start Date Stop Date Generic Name NDC Status Provider Patient Instruction GEMFIBROZIL 600 MG TABS 1 po BID GEMFIBROZIL 04507455975 Active Ang Markham MD Active CORTISPORIN 3.5-15706-2 SOLN 4gtts in affected ear QID x 7 days [id number] 53204590635 No Longer Active Ang Markham MD Active TRESIBA FLEXTOUCH 200 UNIT/ML SC SOPN Take 70 units daily at mid-night to 1 am. INSULIN DEGLUDEC 39699884830 Active Celestine Sierraglari RN BONE MARROW TRANSPLANT Active LEVEMIR FLEXTOUCH 100 UNIT/ML SC SOPN 35 units SC at 12-1pm, 35 units 12-1am INSULIN DETEMIR 77357338551 No Longer Active Celestine PEARCE Active REGLAN 10 MG TAB 0.5 po TID 30min prior to meals METOCLOPRAMIDE HCL 37527677588 Active Ang Markham MD Active ZANTAC 150 MG TAB 1 po BID RANITIDINE HCL 74365849119 Active Ang Markham MD Active DOXEPIN HCL 10 MG CAP 1 tablet nightly for the itch DOXEPIN HCL 32556960018 Active Ang Markham MD Active COLACE 100 MG CAP 1 po daily DOCUSATE SODIUM 14342251509 Active Gabriel Hunt DO Active NOVOLOG FLEXPEN 100 UNIT/ML SOPN Take 20 units TID with meals, plus 2u/50 for blood sugars above 150. Ratio vs. Carbs INSULIN ASPART 00320705544 Active Gabriel Hunt DO Active BD PEN NEEDLE DINESH U/F 32G X 4 MM MISC 5 a day INSULIN PEN NEEDLE 18720337357 Active Janeyeh Ziglari RN BONE MARROW TRANSPLANT Active EMBRACE BLOOD GLUCOSE TEST STRP Test blood sugars 4 times daily and PRN 08/05 GLUCOSE BLOOD 92056218819 No Longer Active Malstepheneh Ziglari RN BONE MARROW TRANSPLANT Active TRUEPLUS LANCETS 30G MISC 4 a day LANCETS 70905136120 Active Maliheh Ziglari RN BONE MARROW TRANSPLANT Active TRUETEST TEST STRP check blood sugars 4x/day GLUCOSE BLOOD 88436154436 Active Maliheh Ziglari RN BONE MARROW TRANSPLANT Active TRUERESULT BLOOD GLUCOSE W/DEVICE KIT check blood sugars 4x a day BLOOD GLUCOSE MONITORING SUPPL 09970456434 Active Celestine PEARCE Active LISINOPRIL 5 MG TABS 1 po qd LISINOPRIL 39464603784 Active Ang Markham MD Active PAXIL 20 MG TAB 1 tablet by mouth daily PAROXETINE HCL 82763789834 Active Ang Markham MD Active GENTAMICIN SULFATE 0.1 % EXT OINT Apply to open sores once a day. GENTAMICIN SULFATE 70768802963 No Longer Active Ang Markham MD Active ZOLPIDEM TARTRATE 10 MG TABS 1 po qHS PRN Insomnia ZOLPIDEM TARTRATE 67512704554 Active Ang Markham MD Active BACTRIM DS 800-160 MG TAB 1 tab by mouth twice daily TRIMETHOPRIM-SULFAMETHOXAZOLE 09008401355 No Longer Active Gloria Dunbar FILAMENT WOUND PARTS FABRICATOR Active LEVEMIR FLEXPEN 100 UNIT/ML SOLN 40 units SC at bedtime INSULIN DETEMIR No Longer Active Susan Arellano RMA Active INSUPEN ULTRAFIN 31G X 6 MM MISC Use with insulin qid. DX: E11.9 INSULIN PEN NEEDLE 87568778733 Active Ang Markham MD Active ZOLOFT 100 MG TAB 1 po qHS SERTRALINE HCL 57697192704 No Longer Active Ang Markham MD Active MELOXICAM 15 MG TABS 1 po qd PRN Knee Pain MELOXICAM 37073407469 No Longer Active Ang Markham MD Active LIPITOR 40 MG TAB 1 po qHS ATORVASTATIN CALCIUM 87885736758 Active Ang Markham MD Active METFORMIN HCL 1000 MG TABS 1 tablet by mouth twice daily METFORMIN HCL 65217343349 Active Ang Markham MD Active CYCLOBENZAPRINE HCL 5 MG TABS 1 po qHS PRN Muscle pain CYCLOBENZAPRINE HCL 18721278590 Active Ang Markham MD Active COLACE 100 MG CAP 1 po BID PRN Constipation DOCUSATE SODIUM 93336542090 No Longer Active Ang Markham MD Active HYDROXYZINE HCL 25 MG TAB 1 TID PRN nerves HYDROXYZINE HCL 49978476903 Active Ang Markham MD Active IBUPROFEN 800 MG TABS 1 tab every 8 hours as needed for pain 2013 IBUPROFEN 37084862973 No Longer Active Ang Markham MD Active NITROFURANTOIN MACROCRYSTAL 100 MG CAPS 1 capsule PO bid x 7 days NITROFURANTOIN MACROCRYSTAL 41822757340 No Longer Active Ang Markham MD Active DIFLUCAN 150 MG TAB 1 qODay x 2 doses FLUCONAZOLE 62612589794 No Longer Active Jillpiedad Romero FILAMENT WOUND PARTS FABRICATOR Active CEFTIN 500 MG TAB 1 tablet by mouth twice daily for 7 days 07/24 CEFUROXIME AXETIL 94134339750 No Longer Active Anthony CARBONE Active ZOLOFT 50 MG TAB 1 tablet by mouth daily SERTRALINE HCL 30908598056 No Longer Active Anthony CARBONE Active ANUSOL-HC 2.5 % CREAM apply as needed HYDROCORTISONE (RECTAL) 70879820779 No Longer Active Anthony CARBONE Active COLACE 100 MG CAP 1 tab PO BID DOCUSATE SODIUM 87575412031 No Longer Active Anthony CARBONE Active TRINESSA (28) 0.18/0.215/0.25 MG-35 MCG TABS 1 po qd as directed NORGESTIM-ETH ESTRAD TRIPHASIC 53155461249 No Longer Active Anthony CARBONE Active [facility] MELATONIN 5 MG TABS 1-2 po qHS PRN Insomnia MELATONIN 51168917205 No Longer Active Anthony CARBONE Active ACYCLOVIR 400 MG TABS ACYCLOVIR 60059660459 No Longer Active Ang Markham MD Active HYDROXYZINE HCL 25 MG TABS 1 tab PO tid PRN itching HYDROXYZINE HCL 71952441876 No Longer Active Ang Markham MD Active DIFLUCAN 150 MG TAB 1 qODay x 2 doses FLUCONAZOLE 74139557436 No Longer Active Da Romero APRN Active ACYCLOVIR 400 MG TABS 1 pill twice daily ACYCLOVIR 04986409205 No Longer Active Da Romero APRN Active AZITHROMYCIN 250 MG TABS 2 po qd x 1 day, then 1 po qd x 4 days AZITHROMYCIN 28109804193 No Longer Active Eri Borges MD PhD Active AZITHROMYCIN 250 MG TABS take 2 po day 1 then take1 po days 2-5 AZITHROMYCIN 30078047692 No Longer Active Octaviano CARBONE Active ACYCLOVIR 400 MG TABS 1 po qd ACYCLOVIR 88567387188 No Longer Active Ang Markham MD Active PROZAC 40 MG CAPS 1 cap by mouth at bedtime FLUOXETINE HCL 95605954611 No Longer Active Ang Markham MD Active HYDROXYZINE HCL 25 MG TABS 1 tab PO tid PRN itching HYDROXYZINE HCL 25 MG TABS 478675 HYDROXYZINE HCL Inactive [facility] MELATONIN 5 MG TABS 1-2 po qHS PRN Insomnia [facility] MELATONIN 5 MG TABS 740232 MELATONIN Inactive TRINESSA (28) 0.18/0.215/0.25 MG-35 MCG TABS 1 po qd as directed TRINESSA (28) 0.18/0.215/0.25 MG-35 MCG TABS 816263 NORGESTIM-ETH ESTRAD TRIPHASIC Inactive COLACE 100 MG CAP 1 tab PO BID COLACE 100 MG CAP 1826068 DOCUSATE SODIUM Inactive ANUSOL-HC 2.5 % CREAM apply as needed ANUSOL-HC 2.5 % CREAM 995652 HYDROCORTISONE (RECTAL) Inactive ZOLOFT 50 MG TAB 1 tablet by mouth daily ZOLOFT 50 MG TAB 134714 SERTRALINE HCL Inactive CEFTIN 500 MG TAB 1 tablet by mouth twice daily for 7 days 07/24 CEFTIN 500 MG TAB 119037 CEFUROXIME AXETIL Inactive NITROFURANTOIN MACROCRYSTAL 100 MG CAPS 1 capsule PO bid x 7 days NITROFURANTOIN MACROCRYSTAL 100 MG CAPS 7522621 NITROFURANTOIN MACROCRYSTAL Inactive IBUPROFEN 800 MG TABS 1 tab every 8 hours as needed for pain 2013 IBUPROFEN 800 MG TABS 415194 IBUPROFEN Inactive COLACE 100 MG CAP 1 po BID PRN Constipation COLACE 100 MG CAP 4520605 DOCUSATE SODIUM Inactive MELOXICAM 15 MG TABS 1 po qd PRN Knee Pain MELOXICAM 15 MG TABS 530187 MELOXICAM Inactive LEVEMIR FLEXPEN 100 UNIT/ML SOLN 40 units SC at bedtime LEVEMIR FLEXPEN 100 UNIT/ML SOLN INSULIN DETEMIR Inactive GENTAMICIN SULFATE 0.1 % EXT OINT Apply to open sores once a day. GENTAMICIN SULFATE 0.1 % EXT OINT 283127 GENTAMICIN SULFATE Inactive EMBRACE BLOOD GLUCOSE TEST STRP Test blood sugars 4 times daily and PRN 08/05 EMBRACE BLOOD GLUCOSE TEST STRP GLUCOSE BLOOD Inactive LEVEMIR FLEXTOUCH 100 UNIT/ML SC SOPN 35 units SC at 12-1pm, 35 units 12-1am LEVEMIR FLEXTOUCH 100 UNIT/ML SC SOPN INSULIN DETEMIR Inactive CORTISPORIN 3.5-72894-7 SOLN 4gtts in affected ear QID x 7 days CORTISPORIN 3.5-42770-7 SOLN 345757 [id number] Inactive ACYCLOVIR 400 MG TABS 1 po qd ACYCLOVIR 400 MG TABS 806992 ACYCLOVIR Inactive AZITHROMYCIN 250 MG TABS take 2 po day 1 then take1 po days 2-5 AZITHROMYCIN 250 MG TABS 1286560 AZITHROMYCIN Inactive AZITHROMYCIN 250 MG TABS 2 po qd x 1 day, then 1 po qd x 4 days AZITHROMYCIN 250 MG TABS 4391548 AZITHROMYCIN Inactive ACYCLOVIR 400 MG TABS 1 pill twice daily ACYCLOVIR 400 MG TABS 19720928 ACYCLOVIR Inactive DIFLUCAN 150 MG TAB 1 qODay x 2 doses DIFLUCAN 150 MG TAB 19760606 FLUCONAZOLE Inactive ACYCLOVIR 400 MG TABS ACYCLOVIR 400 MG TABS 19720928 ACYCLOVIR Inactive DIFLUCAN 150 MG TAB 1 qODay x 2 doses DIFLUCAN 150 MG TAB 19760606 FLUCONAZOLE Inactive BACTRIM DS 800-160 MG TAB 1 tab by mouth twice daily BACTRIM DS 800-160 MG TAB 19821130 TRIMETHOPRIM-SULFAMETHOXAZOLE Inactive Advance Directives Directive Description Start Date PERMISSION TO SHARE Vital Signs Date Name Value Unit Range Description blood pressure, diastolic - 8462-4 76 mm[Hg] BP [place] blood pressure, systolic - 8480-6 111 mm[Hg] BP sys pulse rate E&M - 8867-4 146 /min Heart rate temperature E&M 95.8 [degF] Body temperature blood pressure, diastolic - 8462-4 60 mm[Hg] BP [place] blood pressure, systolic - 8480-6 88 mm[Hg] BP sys pulse rate E&M - 8867-4 119 /min Heart rate temperature E&M 96.2 [degF] Body temperature weight E&M - 3141-9 116 [lb_av] Weight Measured blood pressure, diastolic - 8462-4 60 mm[Hg] BP [place] blood pressure, systolic - 8480-6 102 mm[Hg] BP sys height E&M - 8302-2 63 [in_us] Bdy height pulse rate E&M - 8867-4 96 /min Heart rate weight E&M - 3141-9 120 [lb_av] Weight Measured blood pressure, diastolic - 8462-4 71 mm[Hg] BP [place] blood pressure, systolic - 8480-6 101 mm[Hg] BP sys pulse rate E&M - 8867-4 115 /min Heart rate temperature E&M 97.3 [degF] Body temperature weight E&M - 3141-9 117.5 [lb_av] Weight Measured blood pressure, diastolic - 8462-4 67 mm[Hg] BP [place] blood pressure, systolic - 8480-6 92 mm[Hg] BP sys temperature E&M 98.7 [degF] Body temperature weight E&M - 3141-9 117 [lb_av] Weight Measured blood pressure, diastolic - 8462-4 63 mm[Hg] BP [place] blood pressure, systolic - 8480-6 93 mm[Hg] BP sys pulse rate E&M - 8867-4 138 /min Heart rate temperature E&M 98.8 [degF] Body temperature weight E&M - 3141-9 119 [lb_av] Weight Measured blood pressure, diastolic - 8462-4 70 mm[Hg] BP [place] blood pressure, systolic - 8480-6 118 mm[Hg] BP sys height E&M - 8302-2 63 [in_us] Bdy height pulse rate E&M - 8867-4 120 /min Heart rate weight E&M - 3141-9 120 [lb_av] Weight Measured blood pressure, diastolic - 8462-4 69 mm[Hg] BP [place] blood pressure, systolic - 8480-6 96 mm[Hg] BP sys pulse rate E&M - 8867-4 114 /min Heart rate temperature E&M 98.9 [degF] Body temperature weight E&M - 3141-9 123.8 [lb_av] Weight Measured blood pressure, diastolic - 8462-4 74 mm[Hg] BP [place] blood pressure, systolic - 8480-6 108 mm[Hg] BP sys pulse rate E&M - 8867-4 113 /min Heart rate temperature E&M 98.3 [degF] Body temperature weight E&M - 3141-9 123 [lb_av] Weight Measured Diagnostic Results Date Name Value Unit Range Description Chart Maintenance: outside labs added to flowsheet - Chemistry blood glucose 397 mg/dL creatinine, serum 0.50 mg/dL Lab Report: Comp. Metabolic Panel, Lipid Panel - Chemistry sodium, serum 130 mmol/L 733-998 9371/10/12 carbon dioxide, venous blood 28.1 mmol/L 21.0-32.0 potassium, serum 3.9 mmol/L 3.5-5.2 chloride, serum 91 mmol/L 98-107 blood glucose 547 mg/dL 65-110 urea nitrogen, blood 3 mg/dL 7-18 creatinine, serum 0.78 mg/dL 0.55-1.30 alanine aminotransferase (SGPT), serum 11 U/L 12-78 aspartate aminotransferase (SGOT), serum 7 U/L 15-37 calcium, serum 8.8 mg/dL 8.5-10.1 bilirubin, serum, total 0.30 mg/dL 0.00-1.00 cholesterol, serum 221 mg/dL 743-105 2181/10/12 triglyceride, serum, fasting 590 mg/dL 30-200 HDL cholesterol, serum 45 mg/dL 32-96 LDL cholesterol, serum 58 mg/dL 0-130 Lab Report: HGBA1C - Chemistry hemoglobin A1C, blood, as % of total hemoglobin 11.4 % 4.3-6.0 Lab Report: UADIP W/MICRO, AUTO, CBC W/DIFF, Comp. Metabolic Panel - Chemistry RBC, urine, dipstick Negative Negative sodium, serum 133 mmol/L 611-889 2569/06/03 carbon dioxide, venous blood 33.4 mmol/L 21.0-32.0 potassium, serum 4.3 mmol/L 3.5-5.2 chloride, serum 97 mmol/L 98-107 blood glucose 450 mg/dL 65-110 urea nitrogen, blood 9 mg/dL 7-18 creatinine, serum 0.68 mg/dL 0.55-1.30 alanine aminotransferase (SGPT), serum 18 U/L 12-78 aspartate aminotransferase (SGOT), serum 15 U/L 15-37 calcium, serum 9.2 mg/dL 8.5-10.1 bilirubin, serum, total 0.20 mg/dL 0.00-1.00 protein, total urine random Negative mg/dL Negative Lab Report: UADIP W/MICRO, AUTO, CBC W/DIFF, Comp. Metabolic Panel - Hematology leukocyte count, blood 10.6 10^3/MM^3 10*3/mm3 4.6-10.2 neutrophils as percent of blood leukocytes 59.8 % 42.2-75.2 monocytes as percent of blood leukocytes 4.9 % 1.7-9.3 lymphocytes as percent of blood leukocytes 32.5 % 20.5-51.1 erythrocyte (RBC) count 5.21 10^6/MM^3 10*6/mm3 4.04-5.48 hemoglobin, blood 14.3 g/dL 12.0-16.0 hematocrit, blood 42.4 % 36.0-46.0 mean corpuscular volume, RBC 81 fL 80-97 mean corpuscular hemoglobin, RBC 27.4 pg 27.0-31.2 mean corpuscular hemoglobin concentration, RBC 33.6 G/DL % 31.8- 35.4 red blood cell distribution width 16.1 % 11.6-14.8 platelet count 346 10^3/MM^3 10*3/mm3 142-424 Lab Report: UADIP W/MICRO, AUTO, CBC W/DIFF, Comp. Metabolic Panel - Urinalysis glucose, urine, semiquantitative 3+ Negative ketones, urine, by test strip Negative Negative bilirubin, urine Negative Negative urine color Yellow Colorless;Lightyellow;Straw;Yellow appearance, urine SlCloudy Clear specific gravity, urine 1.015 1.000-1.030 pH, urine, semiquantitative 5.5 5.0-8.5 urobilinogen, urine, semiquantitative (dipstick) 0.2 Normal leukocyte esterase, urine, by dipstick Negative Negative nitrite, urine, semiquantitative Negative Negative Lab [place] [facility] [place] human chorionic gonadotropin, urine, qualitative (urine test) Negative Negative Office Visit: Diabetes Visit - Basic LDL target level 100 mg/dL LDL target level 100 mg/dL Office Visit: Diabetes Visit - Chemistry cholesterol, target level 200 mg/dL triglyceride, target level 200 mg/dL HDL cholesterol, serum, target level 35 mg/dL cholesterol, target level 200 mg/dL triglyceride, target level 200 mg/dL HDL cholesterol, serum, target level 35 mg/dL Encounters Code Encounter Date Provider Facility CPT-57097 Level 3 Est. Patient 13:22:25 CDT Gabriel Hunt DO [facility] CPT-13325 Level 4 Est. Patient 16:02:22 CDT Ang Markham MD [facility] CPT-00297 Level 3 Est. Patient 16:21:23 CDT Celestine PEARCE [facility] CPT-33753 Level 3 Est. Patient 17:02:[address] [facility] CPT-76778 Level 3 Est. Patient 14:46:22 CDT Da Romero [facility] CPT-75023 Level 4 Est. Patient 13:55:20 CDT Ang Markham MD [facility] CPT-32332 Level 4 Est. Patient 16:10:09 CDT Celestine Huerta [facility] CPT-29557 Level 3 Est. Patient 13:51:24 CDT Ang Markham MD [facility] CPT-86480 Level 3 Est. Patient 18:42:[address] [facility] CPT-07272 Level 5 Est. Patient 14:40:14 CDT Celestine Huerta [facility] CPT-24064 Level 4 Est. Patient 14:36:17 CDT Ang Markham MD [facility] CPT-68070 Level 3 Est. Patient 11:13:47 SECURITY OFFICER Ang Markham MD [facility] CPT-43972 Level 3 Est. Patient 11:59:20 SECURITY OFFICER Gloria Dunbar [facility] CPT-29907 Level 3 Est. Patient 17:32:37 SECURITY OFFICER Gloria Dunbar [facility] CPT-19208 Level 4 Est. Patient 16:39:07 CDT Ang Markham MD [facility] CPT-06821 Level 3 Est. Patient 16:35:50 CDT Ang Markham MD [facility] CPT-21567 Level 4 Est. Patient 13:53:06 SECURITY OFFICER Ang Markham MD [facility] CPT-86545 Level 3 Est. Patient 08:58:08 SECURITY OFFICER Ang Markham MD [facility] CPT-64945 Level 3 Est. Patient 18:48:29 CDT Anthony Whitfield [facility] CPT-36769 Level 3 Est. Patient 12:16:59 CDT Gabriel Hunt DO [facility] CPT-31688 Level 3 Est. Patient 18:57:15 CDT Anthony Whitfield [facility] CPT-12640 Level 3 Est. Patient 13:59:22 SECURITY OFFICER Ang Markham MD [facility] CPT-65986 Level 4 Est. Patient 10:36:08 SECURITY OFFICER Ang Markham MD [facility] CPT-40920 Level 3 Est. Patient 16:27:02 CDT Eri Borges MD PhD [facility] CPT-63723 Level 3 Est. Patient 10:36:43 CDT Octaviano Dempsey [facility] CPT-80347 Level 4 New Patient 08:58:06 CDT Ang Markham MD [facility] Procedures Code Procedure Name Date Entry Date Standard Description CPT-48470 Lipid - LAB USE ONLY 15:28:39 CDT CPT-43866 CMP - LAB USE ONLY 15:28:39 CDT CPT-02257 Venipuncture Draw Fee 15:28:39 CDT CPT-52827 Abd compl w upright - XRAY USE ONLY 14:09:39 CDT 02/28 CPT-25181 Venipuncture Draw Fee 12:25:15 CDT CPT-35318 Knee 3V 16:48:40 CDT CPT-OV Office Visit 16:27:13 CDT CPT-OV Office Visit 16:21:19 CDT CPT-42998 Sono pelvis non OB uterus ovaries cervix 09:37:28 CDT
--- OUTSIDE RECORDS SUMMARY | 2018-12-22 01:09 | XMS REPORT | Clinical Summary ---
Author Author Admin, ALEXANDER Organization [facility] Address Unknown Phone Unavailable Allergies, Adverse Reactions, Alerts Allergy Name Reaction Description Start Date Severity Status Provider PENICILLIN Critical Active Ang Markham MD Conditions or Problems Problem Name Problem Code Onset Date Status Entry Date Provider Comment Standard Description Annotate DEPRESSION 311 Resolved Ang Markham MD Depressive disorder, not elsewhere classified DIABETES MELLITUS, INSULIN DEPENDENT (IDDM) 250.01 Active 07/01 Ang Markham MD Diabetes mellitus without mention of complication , type I [juvenile type], not stated as uncontrolled AMENORRHEA 626.0 Resolved Eri Borges MD PhD Absence of menstruation ABDOMINAL PAIN RIGHT LOWER QUADRANT 789.03 Resolved Eri Borges MD PhD Abdominal pain, right lower quadrant LOM 382.9 Resolved Eri Borges MD PhD Unspecified otitis media PSORIASIS 696.1 Active Eri Borges MD PhD Other psoriasis SINUSITIS, ACUTE 461.9 Resolved Ang [...] lower leg joint Knee pain, bilateral 719.46 Active Hilda Damon Pain in joint involving lower leg Cystitis, acute 595.0 Resolved Ang Markham MD Acute cystitis UTI 599.0 Resolved Ang Markham MD Urinary tract infection, site not specified Insomnia 780.52 Active Anthony CARBONE Insomnia, unspecified Diabetes mellitus 250.00 Resolved Ang [...] medical examination at a health care facility DEPRESSION ICD-311 Inactive Ang Markham MD AMENORRHEA ICD-626.0 Inactive Eri Borges MD PhD ABDOMINAL PAIN RIGHT LOWER QUADRANT ICD-789.03 Inactive Eri Borges MD PhD LOM ICD-382.9 Inactive Eri Borges MD PhD SINUSITIS, ACUTE ICD-461.9 Inactive Ang Markham MD Constipation ICD-564.00 Inactive Ang Markham MD Anal or rectal pain ICD-569.42 Inactive Ang Markham MD CANDIDAL VAGINITIS ICD-112.1 Inactive Ang Markham MD Joint crepitus, knee ICD-719.66 Inactive Ang Markham MD Cystitis, acute ICD-595.0 Inactive Ang Markham MD UTI ICD-599.0 Inactive Ang Markham MD Diabetes mellitus ICD-250.00 Inactive Ang Markham MD Vaginal discharge ICD-623.5 Inactive Ang Markham MD Amenorrhea ICD-626.0 Inactive Ang Markham MD Medication List Medication Instructions Start Date Stop Date Generic Name NDC Status Provider Patient Instruction LIPITOR 40 MG TAB 1 po qHS ATORVASTATIN CALCIUM 94977340219 Active Ang Markham MD Active METFORMIN HCL 1000 MG TABS 1 tablet by mouth twice daily METFORMIN HCL 02666100614 Active Ang Markham MD Active CYCLOBENZAPRINE HCL 5 MG TABS 1 po qHS PRN Muscle pain CYCLOBENZAPRINE HCL 08767114686 Active Ang Markham MD Active MELOXICAM 15 MG TABS 1 po qd PRN Knee Pain MELOXICAM 93693028499 Active Ang Markham MD Active ZOLOFT 50 MG TAB 1 po qd SERTRALINE HCL 36935946606 Active Ang Markham MD Active COLACE 100 MG CAP 1 po BID PRN Constipation DOCUSATE SODIUM 62591717104 No Longer Active Ang Markham MD Active HYDROXYZINE HCL 25 MG TAB 1 TID PRN nerves HYDROXYZINE HCL 85829772061 Active Ang Markham MD Active IBUPROFEN 800 MG TABS 1 tab every 8 hours as needed for pain 2013 IBUPROFEN 01856833591 No Longer Active Ang Markham MD Active NITROFURANTOIN MACROCRYSTAL 100 MG CAPS 1 capsule PO bid x 7 days NITROFURANTOIN MACROCRYSTAL 83142715728 No Longer Active Ang Markham MD Active LEVEMIR FLEXPEN 100 UNIT/ML SOLN 40 units SC at bedtime INSULIN DETEMIR 84844325595 Active Ang Markham MD Active DIFLUCAN 150 MG TAB 1 qODay x 2 doses FLUCONAZOLE 73550672144 No Longer Active Da Nguyenl [employer] AMBULANCE DRIVER Active CEFTIN 500 MG TAB 1 tablet by mouth twice daily for 7 days 07/24 CEFUROXIME AXETIL 49808424356 No Longer Active Anthony CARBONE Active ZOLPIDEM TARTRATE 10 MG TABS 1 tab PO at hs ZOLPIDEM TARTRATE 78783995956 Active Ang Markham MD Active ZOLOFT 50 MG TAB 1 tablet by mouth daily SERTRALINE HCL 66752830806 No Longer Active Anthony CARBONE Active ANUSOL-HC 2.5 % CREAM apply as needed HYDROCORTISONE (RECTAL) 51027040310 No Longer Active Anthony CARBONE Active COLACE 100 MG CAP 1 tab PO BID DOCUSATE SODIUM 66253211010 No Longer Active Anthony CARBONE Active TRINESSA (28) 0.18/0.215/0.25 MG-35 MCG TABS 1 po qd as directed NORGESTIM-ETH ESTRAD TRIPHASIC 48261080460 No Longer Active Anthony CARBONE Active [facility] MELATONIN 5 MG TABS 1-2 po qHS PRN Insomnia MELATONIN 67150990954 No Longer Active Anthony CARBONE Active NOVOLOG FLEXPEN 100 UNIT/ML SOPN Take 18 units TID with meals INSULIN ASPART 07608102392 Active Anthony CARBONE Active ACYCLOVIR 400 MG TABS ACYCLOVIR 28699598117 No Longer Active Ang Markham MD Active EMBRACE BLOOD GLUCOSE TEST STRP Test blood sugars 4 times daily and PRN 08/05 GLUCOSE BLOOD 10555012686 Active Ang Markham MD Active HYDROXYZINE HCL 25 MG TABS 1 tab PO tid PRN itching HYDROXYZINE HCL 59237817345 No Longer Active Ang Markham MD Active DIFLUCAN 150 MG TAB 1 qODay x 2 doses FLUCONAZOLE 38971070102 No Longer Active Da Romero APRN Active ACYCLOVIR 400 MG TABS 1 pill twice daily ACYCLOVIR 76034677801 No Longer Active Jillina Nick [employer] AMBULANCE DRIVER Active AZITHROMYCIN 250 MG TABS 2 po qd x 1 day, then 1 po qd x 4 days AZITHROMYCIN 63477888380 No Longer Active Eri Borges MD PhD Active AZITHROMYCIN 250 MG TABS take 2 po day 1 then take1 po days 2-5 AZITHROMYCIN 76687492493 No Longer Active Octaviano CARBONE Active ACYCLOVIR 400 MG TABS 1 po qd ACYCLOVIR 19371406249 No Longer Active Ang Markham MD Active PROZAC 40 MG CAPS 1 cap by mouth at bedtime FLUOXETINE HCL 41499077112 No Longer Active Ang Markham MD Active HYDROXYZINE HCL 25 MG TABS 1 tab PO tid PRN itching HYDROXYZINE HCL 25 MG TABS 043488 HYDROXYZINE HCL Inactive [facility] MELATONIN 5 MG TABS 1-2 po qHS PRN Insomnia [facility] MELATONIN 5 MG TABS 108554 MELATONIN Inactive TRINESSA (28) 0.18/0.215/0.25 MG-35 MCG TABS 1 po qd as directed TRINESSA (28) 0.18/0.215/0.25 MG-35 MCG TABS 144532 NORGESTIM-ETH ESTRAD TRIPHASIC Inactive COLACE 100 MG CAP 1 tab PO BID COLACE 100 MG CAP 5629767 DOCUSATE SODIUM Inactive ANUSOL-HC 2.5 % CREAM apply as needed ANUSOL-HC 2.5 % CREAM 181816 HYDROCORTISONE (RECTAL) Inactive ZOLOFT 50 MG TAB 1 tablet by mouth daily ZOLOFT 50 MG TAB 824361 SERTRALINE HCL Inactive CEFTIN 500 MG TAB 1 tablet by mouth twice daily for 7 days 07/24 CEFTIN 500 MG TAB 796687 CEFUROXIME AXETIL Inactive NITROFURANTOIN MACROCRYSTAL 100 MG CAPS 1 capsule PO bid x 7 days NITROFURANTOIN MACROCRYSTAL 100 MG CAPS 447614 NITROFURANTOIN MACROCRYSTAL Inactive IBUPROFEN 800 MG TABS 1 tab every 8 hours as needed for pain 2013 IBUPROFEN 800 MG TABS 435009 IBUPROFEN Inactive COLACE 100 MG CAP 1 po BID PRN Constipation COLACE 100 MG CAP 0083776 DOCUSATE SODIUM Inactive ACYCLOVIR 400 MG TABS 1 po qd ACYCLOVIR 400 MG TABS 19720928 ACYCLOVIR Inactive AZITHROMYCIN 250 MG TABS take 2 po day 1 then take1 po days 2-5 AZITHROMYCIN 250 MG TABS 6466645 AZITHROMYCIN Inactive AZITHROMYCIN 250 MG TABS 2 po qd x 1 day, then 1 po qd x 4 days AZITHROMYCIN 250 MG TABS 4819197 AZITHROMYCIN Inactive ACYCLOVIR 400 MG TABS 1 pill twice daily ACYCLOVIR 400 MG TABS 19720928 ACYCLOVIR Inactive DIFLUCAN 150 MG TAB 1 qODay x 2 doses DIFLUCAN 150 MG TAB 667844 FLUCONAZOLE Inactive ACYCLOVIR 400 MG TABS ACYCLOVIR 400 MG TABS 19720928 ACYCLOVIR Inactive DIFLUCAN 150 MG TAB 1 qODay x 2 doses DIFLUCAN 150 MG TAB 299301 FLUCONAZOLE Inactive Advance Directives Directive Description Start Date PERMISSION TO SHARE Vital Signs Date Name Value Unit Range Description blood pressure, diastolic - 8462-4 81 mm[Hg] BP [place] blood pressure, systolic - 8480-6 120 mm[Hg] BP sys pulse rate E&M - 8867-4 106 /min Heart rate temperature E&M 98.0 [degF] Body temperature weight E&M - 3141-9 131.5 [lb_av] Weight Measured blood pressure, diastolic - 8462-4 86 mm[Hg] BP [place] blood pressure, systolic - 8480-6 127 mm[Hg] BP sys pulse rate E&M - 8867-4 102 /min Heart rate temperature E&M 96.9 [degF] Body temperature weight E&M - 3141-9 133 [lb_av] Weight Measured blood pressure, diastolic - 8462-4 84 mm[Hg] BP [place] blood pressure, systolic - 8480-6 118 mm[Hg] BP sys pulse rate E&M - 8867-4 116 /min Heart rate temperature E&M 97.5 [degF] Body temperature weight E&M - 3141-9 135.3 [lb_av] Weight Measured blood pressure, diastolic - 8462-4 80 mm[Hg] BP [place] blood pressure, systolic - 8480-6 116 mm[Hg] BP sys pulse rate E&M - 8867-4 111 /min Heart rate temperature E&M 97.6 [degF] Body temperature weight E&M - 3141-9 130 [lb_av] Weight Measured blood pressure, diastolic - 8462-4 79 mm[Hg] BP [place] blood pressure, systolic - 8480-6 110 mm[Hg] BP sys pulse rate E&M - 8867-4 105 /min Heart rate temperature E&M 9.9 [degF] Body temperature weight E&M - 3141-9 132.8 [lb_av] Weight Measured blood pressure, diastolic - 8462-4 82 mm[Hg] BP [place] blood pressure, systolic - 8480-6 121 mm[Hg] BP sys pulse rate E&M - 8867-4 106 /min Heart rate temperature E&M 98.6 [degF] Body temperature weight E&M - 3141-9 131 [lb_av] Weight Measured Diagnostic Results Date Name Value Unit Range Description Lab Report: CBC W/DIFF, Comp. Metabolic Panel, [facility] - Chemistry sodium, serum 131 mmol/L 028-870 6225/10/27 potassium, serum 4.8 mmol/L 3.5-5.2 chloride, serum 93 mmol/L 98-107 carbon dioxide, venous blood 25.8 mmol/L 21.0-32.0 blood glucose 468 mg/dL 65-110 urea nitrogen, blood 13 mg/dL 7-18 creatinine, serum 0.70 mg/dL 0.60-1.30 alanine aminotransferase (SGPT), serum 21 U/L 12-78 aspartate aminotransferase (SGOT), serum 18 U/L 15-37 alkaline phosphatase, serum 151 U/L 50-136 calcium, serum 9.7 mg/dL 8.5-10.1 bilirubin, serum, total 0.40 mg/dL 0.00-1.00 hemoglobin A1C, blood, as % of total hemoglobin 13.1 % 4.3-6.0 Lab Report: CBC W/DIFF, Comp. Metabolic Panel, BA1C - Hematology leukocyte count, blood 9.0 10^3/MM^3 10*3/mm3 4.6-10.2 neutrophils as percent of blood leukocytes 57.5 % 42.2-75.2 monocytes as percent of blood leukocytes 5.7 % 1.7-9.3 lymphocytes as percent of blood leukocytes 33.4 % 20.5-51.1 erythrocyte (RBC) count 5.58 10^6/MM^3 10*6/mm3 4.04-5.48 hemoglobin, blood 16.4 g/dL 12.0-16.0 hematocrit, blood 47.5 % 36.0-46.0 mean corpuscular volume, RBC 85 fL 80-97 mean corpuscular hemoglobin, RBC 29.3 pg 27.0-31.2 mean corpuscular hemoglobin concentration, RBC 34.4 G/DL % 31.8- 35.4 red blood cell distribution width 13.4 % 11.6-14.8 platelet count 267 10^3/MM^3 10*3/mm3 142-424 Lab Report: CBC, Comp. Metabolic Panel, Lipid Panel, HGBA1C - Chemistry sodium, serum 139 mmol/L 245-790 3050/02/03 potassium, serum 4.4 mmol/L 3.5-5.2 chloride, serum 98 mmol/L 98-107 carbon dioxide, venous blood 31.5 mmol/L 21.0-32.0 blood glucose 304 mg/dL 65-110 urea nitrogen, blood 10 mg/dL 7-18 creatinine, serum 0.80 mg/dL 0.60-1.30 alanine aminotransferase (SGPT), serum 23 U/L 12-78 aspartate aminotransferase (SGOT), serum 16 U/L 15-37 calcium, serum 9.4 mg/dL 8.5-10.1 bilirubin, serum, total 0.20 mg/dL 0.00-1.00 cholesterol, serum 309 mg/dL 110-811 8469/02/03 triglyceride, serum, fasting 277 mg/dL 30-200 HDL cholesterol, serum 41 mg/dL 32-96 LDL cholesterol, serum 213 mg/dL 0-130 hemoglobin A1C, blood, as % of total hemoglobin 10.9 % 4.3-6.0 Lab Report: CBC, Comp. Metabolic Panel, Lipid Panel, HGBA1C - Hematology leukocyte count, blood 8.1 10^3/MM^3 10*3/mm3 4.6-10.2 erythrocyte (RBC) count 5.75 10^6/MM^3 10*6/mm3 4.04-5.48 hemoglobin, blood 16.7 g/dL 12.0-16.0 hematocrit, blood 49.0 % 36.0-46.0 mean corpuscular volume, RBC 85 fL 80-97 mean corpuscular hemoglobin, RBC 29.1 pg 27.0-31.2 mean corpuscular hemoglobin concentration, RBC 34.1 G/DL % 31.8- 35.4 red blood cell distribution width 12.7 % 11.6-14.8 platelet count 273 10^3/MM^3 10*3/mm3 142-424 Lab Report: Chlamydia/GC APTIMA/[id number] - Lab chlamydia DNA probe NOT DETECTED NOT DETECTED Lab Report: Chlamydia/GC APTIMA/37123 - Microbiology Neisseria gonorrhoeae DNA probe NOT DETECTED NOT DETECTED Lab Report: HGBA1C - Chemistry hemoglobin A1C, blood, as % of total hemoglobin 12.3 % 4.3-6.0 Lab Report: UADIP W/MICRO, AUTO - Chemistry RBC, urine, dipstick Negative Negative protein, total urine random Negative mg/dL Negative protein, total urine random Negative mg/dL Negative RBC, urine, dipstick Negative Negative Lab Report: UADIP W/MICRO, AUTO - Urinalysis urobilinogen, urine, semiquantitative (dipstick) 0.2 Normal leukocyte esterase, urine, by dipstick Trace Negative nitrite, urine, semiquantitative Negative Negative glucose, urine, semiquantitative 3+ Negative ketones, urine, by test strip Negative Negative bilirubin, urine Negative Negative urine color Straw Colorless;Lightyellow;Straw;Yellow appearance, urine SlCloudy Clear specific gravity, urine <=1.005 1.000-1.030 pH, urine, semiquantitative 6.5 5.0-8.5 urine color Yellow Colorless;Lightyellow;Straw;Yellow appearance, urine Clear Clear specific gravity, urine <=1.005 1.000-1.030 pH, urine, semiquantitative 5.0 5.0-8.5 glucose, urine, semiquantitative 3+ Negative ketones, urine, by test strip Trace Negative bilirubin, urine Negative Negative urobilinogen, urine, semiquantitative (dipstick) 0.2 Normal leukocyte esterase, urine, by dipstick Negative Negative nitrite, urine, semiquantitative Negative Negative Encounters Code Encounter Date Provider Facility CPT-24352 Level 4 Est. 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 Patient 08:58:08 ROTOR CASTING MACHINE OPERATOR Ang Markham MD [facility] CPT-15958 Level 3 Est. Patient 18:48:29 CDT Anthony CARBONE [facility] CPT-34670 Level 3 Est. Patient 12:16:59 CDT Gabriel Hunt DO [facility] CPT-22081 Level 3 Est. Patient 18:57:15 CDT Anthony CARBONE [facility] CPT-80742 Level 3 Est. Patient 13:59:22 ROTOR CASTING MACHINE OPERATOR Ang Markham MD [facility] CPT-85832 Level 4 Est. Patient 10:36:08 ROTOR CASTING MACHINE OPERATOR Ang Markham MD [facility] CPT-38740 Level 3 Est. Patient 16:27:02 CDT Eri Borges MD PhD [facility] CPT-66198 Level 3 Est. Patient 10:36:43 CDT Octaviano Dempsey [facility] CPT-54474 Level 4 New Patient 08:58:06 CDT Ang Markham MD [facility] Procedures Code Procedure Name Date Entry Date Standard Description CPT-84716 Venipuncture Draw Fee 12:25:15 CDT CPT-61658 Knee 3V 16:48:40 CDT CPT-OV Office Visit 16:27:13 CDT CPT-OV Office Visit 16:21:19 CDT CPT-70484 Sono pelvis non OB uterus ovaries cervix 09:37:28 CDT
[2018-12-22 01:10] VITALS: BP 105/73
--- OUTSIDE RECORDS SUMMARY | 2018-12-22 01:10 | XMS REPORT | Clinical Summary ---
Author Author Admin, ALEXANDER Organization [facility] Address Unknown Phone Unavailable Allergies, Adverse Reactions, [...] not stated as uncontrolled Diabetes mellitus 250.00 Active Ang Markham MD Diabetes mellitus without mention [...] health care facility Cellulitis, ankle, left 682.6 Active Gloriajuliette Dunbar MEDICAL PHOTOGRAPHER Cellulitis and abscess of leg, except foot DEPRESSION ICD-311 Inactive Ang Markham MD AMENORRHEA [...] crepitus, knee ICD-719.66 Inactive Ang Markham MD Knee pain, bilateral ICD-719.46 Inactive Ang Markham MD Cystitis, acute ICD-595.0 Inactive Ang Markham MD UTI ICD-599.0 Inactive Ang Markham MD Diabetes mellitus ICD-250.00 Inactive Ang Markham MD Vaginal discharge ICD-623.5 Inactive Ang Markham MD Amenorrhea ICD-626.0 Inactive Ang Markham MD Medication List Medication Instructions Start Date Stop Date Generic Name NDC Status Provider Patient Instruction ZOLPIDEM TARTRATE 10 MG TABS 1 po qHS PRN Insomnia ZOLPIDEM TARTRATE 94690376574 Active Ang Markham MD Active GENTAMICIN SULFATE 0.1 % EXT OINT Apply to open sores once a day. GENTAMICIN SULFATE 01249668388 Active Gloria Yokum MEDICAL PHOTOGRAPHER Active BACTRIM DS 800-160 MG TAB 1 tab by mouth twice daily TRIMETHOPRIM-SULFAMETHOXAZOLE 61854314185 No Longer Active Gloria Yokum MEDICAL PHOTOGRAPHER Active LEVEMIR FLEXTOUCH 100 UNIT/ML SC SOPN 40 units SC nightly INSULIN DETEMIR 48460902943 Active Ang Markham MD Active LEVEMIR FLEXPEN 100 UNIT/ML SOLN 40 units SC at bedtime INSULIN DETEMIR No Longer Active Susan PETTYA Active INSUPEN ULTRAFIN 31G X 6 MM MISC Use with insulin qid. DX: E11.9 INSULIN PEN NEEDLE 37001535491 Active Ang Markham MD Active ZOLOFT 100 MG TAB 1 po qHS SERTRALINE HCL 63900673798 Active Ang Markham MD Active MELOXICAM 15 MG TABS 1 po qd PRN Knee Pain MELOXICAM 10101518007 No Longer Active Ang Markham MD Active LIPITOR 40 MG TAB 1 po qHS ATORVASTATIN CALCIUM 02826956955 Active Ang Markham MD Active METFORMIN HCL 1000 MG TABS 1 tablet by mouth twice daily METFORMIN HCL 10031775687 Active Ang Markham MD Active CYCLOBENZAPRINE HCL 5 MG TABS 1 po qHS PRN Muscle pain CYCLOBENZAPRINE HCL 27216496933 Active Ang Markham MD Active COLACE 100 MG CAP 1 po BID PRN Constipation DOCUSATE SODIUM 88269705512 No Longer Active Ang Markham MD Active HYDROXYZINE HCL 25 MG TAB 1 TID PRN nerves HYDROXYZINE HCL 22362997388 Active Ang Markham MD Active IBUPROFEN 800 MG TABS 1 tab every 8 hours as needed for pain 2013 IBUPROFEN 21458363438 No Longer Active Ang Markham MD Active NITROFURANTOIN MACROCRYSTAL 100 MG CAPS 1 capsule PO bid x 7 days NITROFURANTOIN MACROCRYSTAL 71584361975 No Longer Active Ang Markham MD Active DIFLUCAN 150 MG TAB 1 qODay x 2 doses FLUCONAZOLE 63226152855 No Longer Active Da Romero APRN Active CEFTIN 500 MG TAB 1 tablet by mouth twice daily for 7 days 07/24 CEFUROXIME AXETIL 88213898659 No Longer Active Anthony CARBONE Active ZOLOFT 50 MG TAB 1 tablet by mouth daily SERTRALINE HCL 63534966498 No Longer Active Anthony CARBONE Active ANUSOL-HC 2.5 % CREAM apply as needed HYDROCORTISONE (RECTAL) 30697084269 No Longer Active Anthony CARBONE Active COLACE 100 MG CAP 1 tab PO BID DOCUSATE SODIUM 84200786133 No Longer Active Anhtony CARBONE Active TRINESSA (28) 0.18/0.215/0.25 MG-35 MCG TABS 1 po qd as directed NORGESTIM-ETH ESTRAD TRIPHASIC 63174053584 No Longer Active Anthony CARBONE Active [facility] MELATONIN 5 MG TABS 1-2 po qHS PRN Insomnia MELATONIN 57045465204 No Longer Active Anthony CARBONE Active NOVOLOG FLEXPEN 100 UNIT/ML SOPN Take 18 units TID with meals INSULIN ASPART 67613734145 Active Codey Hdez MD Active ACYCLOVIR 400 MG TABS ACYCLOVIR 65246229944 No Longer Active Ang Markham MD Active EMBRACE BLOOD GLUCOSE TEST STRP Test blood sugars 4 times daily and PRN 08/05 GLUCOSE BLOOD 58820537049 Active Ang Markham MD Active HYDROXYZINE HCL 25 MG TABS 1 tab PO tid PRN itching HYDROXYZINE HCL 93855768173 No Longer Active Ang Markham MD Active DIFLUCAN 150 MG TAB 1 qODay x 2 doses FLUCONAZOLE 49869957050 No Longer Active Da Romero APRN Active ACYCLOVIR 400 MG TABS 1 pill twice daily ACYCLOVIR 35995835159 No Longer Active Da Romero APRN Active AZITHROMYCIN 250 MG TABS 2 po qd x 1 day, then 1 po qd x 4 days AZITHROMYCIN 72627548017 No Longer Active Eri Borges MD PhD Active AZITHROMYCIN 250 MG TABS take 2 po day 1 then take1 po days 2-5 AZITHROMYCIN 77786387440 No Longer Active Octaviano CARBONE Active ACYCLOVIR 400 MG TABS 1 po qd ACYCLOVIR 74623564694 No Longer Active Ang Markham MD Active PROZAC 40 MG CAPS 1 cap by mouth at bedtime FLUOXETINE HCL 79380779667 No Longer Active Ang Markham MD Active HYDROXYZINE HCL 25 MG TABS 1 tab PO tid PRN itching HYDROXYZINE HCL 25 MG TABS 311694 HYDROXYZINE HCL Inactive [facility] MELATONIN 5 MG TABS 1-2 po qHS PRN Insomnia [facility] MELATONIN 5 MG TABS 230695 MELATONIN Inactive TRINESSA (28) 0.18/0.215/0.25 MG-35 MCG TABS 1 po qd as directed TRINESSA (28) 0.18/0.215/0.25 MG-35 MCG TABS 170750 NORGESTIM-ETH ESTRAD TRIPHASIC Inactive COLACE 100 MG CAP 1 tab PO BID COLACE 100 MG CAP 3393379 DOCUSATE SODIUM Inactive ANUSOL-HC 2.5 % CREAM apply as needed ANUSOL-HC 2.5 % CREAM 702955 HYDROCORTISONE (RECTAL) Inactive ZOLOFT 50 MG TAB 1 tablet by mouth daily ZOLOFT 50 MG TAB 233720 SERTRALINE HCL Inactive CEFTIN 500 MG TAB 1 tablet by mouth twice daily for 7 days 07/24 CEFTIN 500 MG TAB 897485 CEFUROXIME AXETIL Inactive NITROFURANTOIN MACROCRYSTAL 100 MG CAPS 1 capsule PO bid x 7 days NITROFURANTOIN MACROCRYSTAL 100 MG CAPS 6199736 NITROFURANTOIN MACROCRYSTAL Inactive IBUPROFEN 800 MG TABS 1 tab every 8 hours as needed for pain 2013 IBUPROFEN 800 MG TABS 950908 IBUPROFEN Inactive COLACE 100 MG CAP 1 po BID PRN Constipation COLACE 100 MG CAP 6242519 DOCUSATE SODIUM Inactive MELOXICAM 15 MG TABS 1 po qd PRN Knee Pain MELOXICAM 15 MG TABS 301056 MELOXICAM Inactive LEVEMIR FLEXPEN 100 UNIT/ML SOLN 40 units SC at bedtime LEVEMIR FLEXPEN 100 UNIT/ML SOLN INSULIN DETEMIR Inactive ACYCLOVIR 400 MG TABS 1 po qd ACYCLOVIR 400 MG TABS 19720928 ACYCLOVIR Inactive AZITHROMYCIN 250 MG TABS take 2 po day 1 then take1 po days 2-5 AZITHROMYCIN 250 MG TABS 3455857 AZITHROMYCIN Inactive AZITHROMYCIN 250 MG TABS 2 po qd x 1 day, then 1 po qd x 4 days AZITHROMYCIN 250 MG TABS 3173754 AZITHROMYCIN Inactive ACYCLOVIR 400 MG TABS 1 pill twice daily ACYCLOVIR 400 MG TABS 19720928 ACYCLOVIR Inactive DIFLUCAN 150 MG TAB 1 qODay x 2 doses DIFLUCAN 150 MG TAB 127473 FLUCONAZOLE Inactive ACYCLOVIR 400 MG TABS ACYCLOVIR 400 MG TABS 19720928 ACYCLOVIR Inactive DIFLUCAN 150 MG TAB 1 qODay x 2 doses DIFLUCAN 150 MG TAB 354180 FLUCONAZOLE Inactive BACTRIM DS 800-160 MG TAB 1 tab by mouth twice daily BACTRIM DS 800-160 MG TAB 973597 TRIMETHOPRIM-SULFAMETHOXAZOLE Inactive Advance Directives Directive Description Start Date PERMISSION TO SHARE Vital Signs Date Name Value Unit Range Description blood pressure, diastolic - 8462-4 82 mm[Hg] BP [place] blood pressure, systolic - 8480-6 111 mm[Hg] BP sys pulse rate E&M - 8867-4 107 /min Heart rate temperature E&M 96.4 [degF] Body temperature weight E&M - 3141-9 133.5 [lb_av] Weight Measured blood pressure, diastolic - 8462-4 80 mm[Hg] BP [place] blood pressure, systolic - 8480-6 120 mm[Hg] BP sys pulse rate E&M - 8867-4 106 /min Heart rate temperature E&M 98.1 [degF] Body temperature weight E&M - 3141-9 126.5 [lb_av] Weight Measured blood pressure, diastolic - 8462-4 78 mm[Hg] BP [place] blood pressure, systolic - 8480-6 118 mm[Hg] BP sys pulse rate E&M - 8867-4 116 /min Heart rate temperature E&M 99.2 [degF] Body temperature weight E&M - 3141-9 128.4 [lb_av] Weight Measured Diagnostic Results Date Name Value Unit Range Description Lab Report: HGBA1C - Chemistry hemoglobin A1C, blood, as % of total hemoglobin 12.3 % 4.3-6.0 Encounters Code Encounter Date Provider Facility CPT-49668 Level 3 Est. 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 Patient 17:32:37 ENGINEERING AND DEVELOPMENT DIRECTOR Gloria Dunbar [facility] CPT-03427 Level 4 Est. Patient 16:39:07 CDT Ang Markham MD [facility] CPT-81559 Level 3 Est. Patient 16:35:50 CDT Ang Markham MD [facility] CPT-94560 Level 4 Est. Patient 13:53:06 ENGINEERING AND DEVELOPMENT DIRECTOR Ang Markham MD [facility] CPT-35630 Level 3 Est. Patient 08:58:08 ENGINEERING AND DEVELOPMENT DIRECTOR Ang Markham MD [facility] CPT-54000 Level 3 Est. Patient 18:48:29 CDT Anthony CARBONE [facility] CPT-85348 Level 3 Est. Patient 12:16:59 CDT Gabriel Hunt DO [facility] CPT-65321 Level 3 Est. Patient 18:57:15 CDT Anthony Whitfield [facility] CPT-94659 Level 3 Est. Patient 13:59:22 ENGINEERING AND DEVELOPMENT DIRECTOR Ang Markham MD [facility] CPT-20342 Level 4 Est. Patient 10:36:08 ENGINEERING AND DEVELOPMENT DIRECTOR Ang Markham MD [facility] CPT-34680 Level 3 Est. Patient 16:27:02 CDT Eri Borges MD PhD [facility] CPT-22133 Level 3 Est. Patient 10:36:43 CDT Octaviano CARBONE [facility] CPT-13023 Level 4 New Patient 08:58:06 CDT Ang Markham MD [facility] Procedures Code Procedure Name Date Entry Date Standard Description CPT-78322 Venipuncture Draw Fee 12:25:15 CDT CPT-79101 Knee 3V 16:48:40 CDT CPT-OV Office Visit 16:27:13 CDT CPT-OV Office Visit 16:21:19 CDT CPT-67461 Sono pelvis non OB uterus ovaries cervix 09:37:28 CDT
--- OUTSIDE RECORDS SUMMARY | 2018-12-22 01:10 | XMS REPORT | Clinical Summary ---
Author Author Admin, QIE Organization [employer] Address Unknown Phone Unavailable Allergies, Adverse Reactions, [...] pain, right lower quadrant LOM 382.9 Resolved Eir Borges MD PhD Unspecified otitis media PSORIASIS [...] Microalbuminuria 791.0 Active Ang Markham MD Proteinuria DEPRESSION ICD-311 Inactive Ang Markham MD AMENORRHEA [...] Inactive Ang Markham MD Diabetes mellitus ICD-250.00 Nathan Markham MD Vaginal discharge ICD-623.5 Inactive Ang Markham MD Amenorrhea ICD-626.0 Inactive Ang Markham MD Cellulitis, ankle, left ICD-682.6 Nathan Markham MD Medication List Medication Instructions Start Date Stop Date Generic Name NDC Status Provider Patient Instruction LISINOPRIL 5 MG TABS 1 po qd LISINOPRIL 76945984733 Active Ang Markham MD Active NOVOLOG FLEXPEN 100 UNIT/ML SOPN Take 20 units TID with meals INSULIN ASPART 54609411032 Wiley Markham MD Active LEVEMIR FLEXTOUCH 100 UNIT/ML SC SOPN 60 units SC nightly INSULIN DETEMIR 41903023659 Wiley Markham MD Active COLACE 100 MG CAP 1 po BID PRN Constipation DOCUSATE SODIUM 96731281516 Wiley Markham MD Active PAXIL 20 MG TAB 1 tablet by mouth daily PAROXETINE HCL 79292267678 Wiley Markham MD Active GENTAMICIN SULFATE 0.1 % EXT OINT Apply to open sores once a day. GENTAMICIN SULFATE 70113673788 No Longer Active Ang Markham MD Active ZOLPIDEM TARTRATE 10 MG TABS 1 po qHS PRN Insomnia ZOLPIDEM TARTRATE 98996938893 Active Ang Markham MD Active BACTRIM DS 800-160 MG TAB 1 tab by mouth twice daily TRIMETHOPRIM-SULFAMETHOXAZOLE 28292632670 No Longer Active Gloria Jefersonum MEDICAL DEVICE SALES REPRESENTATIVE Active LEVEMIR FLEXPEN 100 UNIT/ML SOLN 40 units SC at bedtime INSULIN DETEMIR No Longer Active Susankalen Arellano RMA Active INSUPEN ULTRAFIN 31G X 6 MM MISC Use with insulin qid. DX: E11.9 INSULIN PEN NEEDLE 39875379498 Active Ang Markham MD Active ZOLOFT 100 MG TAB 1 po qHS SERTRALINE HCL 85937858074 No Longer Active Ang Markham MD Active MELOXICAM 15 MG TABS 1 po qd PRN Knee Pain MELOXICAM 70983956341 No Longer Active Ang Markham MD Active LIPITOR 40 MG TAB 1 po qHS ATORVASTATIN CALCIUM 43805169198 Active Ang Markham MD Active METFORMIN HCL 1000 MG TABS 1 tablet by mouth twice daily METFORMIN HCL 63190416003 Active Ang Markham MD Active CYCLOBENZAPRINE HCL 5 MG TABS 1 po qHS PRN Muscle pain CYCLOBENZAPRINE HCL 65218072998 Active Ang Markham MD Active COLACE 100 MG CAP 1 po BID PRN Constipation DOCUSATE SODIUM 98756613304 No Longer Active Ang Markham MD Active HYDROXYZINE HCL 25 MG TAB 1 TID PRN nerves HYDROXYZINE HCL 90044069304 Active Ang Markham MD Active IBUPROFEN 800 MG TABS 1 tab every 8 hours as needed for pain 2013 IBUPROFEN 09299115317 No Longer Active Ang Markham MD Active NITROFURANTOIN MACROCRYSTAL 100 MG CAPS 1 capsule PO bid x 7 days NITROFURANTOIN MACROCRYSTAL 12363411150 No Longer Active Ang Markham MD Active DIFLUCAN 150 MG TAB 1 qODay x 2 doses FLUCONAZOLE 19177678014 No Longer Active Da Romero APRN Active CEFTIN 500 MG TAB 1 tablet by mouth twice daily for 7 days 07/24 CEFUROXIME AXETIL 07909818751 No Longer Active Anthony CARBONE Active ZOLOFT 50 MG TAB 1 tablet by mouth daily SERTRALINE HCL 02328891151 No Longer Active Anthony CARBONE Active ANUSOL-HC 2.5 % CREAM apply as needed HYDROCORTISONE (RECTAL) 72381995034 No Longer Active Anthony CARBONE Active COLACE 100 MG CAP 1 tab PO BID DOCUSATE SODIUM 94653807413 No Longer Active Anthony CARBONE Active TRINESSA (28) 0.18/0.215/0.25 MG-35 MCG TABS 1 po qd as directed NORGESTIM-ETH ESTRAD TRIPHASIC 67507513164 No Longer Active Anthony CARBONE Active [facility] MELATONIN 5 MG TABS 1-2 po qHS PRN Insomnia MELATONIN 63538866600 No Longer Active Anthony CARBONE Active ACYCLOVIR 400 MG TABS ACYCLOVIR 03504068367 No Longer Active Ang Markham MD Active EMBRACE BLOOD GLUCOSE TEST STRP Test blood sugars 4 times daily and PRN 08/05 GLUCOSE BLOOD 20580203652 Active Ang Markham MD Active HYDROXYZINE HCL 25 MG TABS 1 tab PO tid PRN itching HYDROXYZINE HCL 40608478219 No Longer Active Ang Markham MD Active DIFLUCAN 150 MG TAB 1 qODay x 2 doses FLUCONAZOLE 10290247919 No Longer Active Da Romero APRN Active ACYCLOVIR 400 MG TABS 1 pill twice daily ACYCLOVIR 29058819163 No Longer Active Da Romero APRN Active AZITHROMYCIN 250 MG TABS 2 po qd x 1 day, then 1 po qd x 4 days AZITHROMYCIN 46896228322 No Longer Active Eri Borges MD PhD Active AZITHROMYCIN 250 MG TABS take 2 po day 1 then take1 po days 2-5 AZITHROMYCIN 80617135207 No Longer Active Octaviano CARBONE Active ACYCLOVIR 400 MG TABS 1 po qd ACYCLOVIR 80679936858 No Longer Active Ang Markham MD Active PROZAC 40 MG CAPS 1 cap by mouth at bedtime FLUOXETINE HCL 74937921326 No Longer Active Ang Markham MD Active HYDROXYZINE HCL 25 MG TABS 1 tab PO tid PRN itching HYDROXYZINE HCL 25 MG TABS 683740 HYDROXYZINE HCL Inactive [facility] MELATONIN 5 MG TABS 1-2 po qHS PRN Insomnia [facility] MELATONIN 5 MG TABS 405874 MELATONIN Inactive TRINESSA (28) 0.18/0.215/0.25 MG-35 MCG TABS 1 po qd as directed TRINESSA (28) 0.18/0.215/0.25 MG-35 MCG TABS 599182 NORGESTIM-ETH ESTRAD TRIPHASIC Inactive COLACE 100 MG CAP 1 tab PO BID COLACE 100 MG CAP 9970544 DOCUSATE SODIUM Inactive ANUSOL-HC 2.5 % CREAM apply as needed ANUSOL-HC 2.5 % CREAM 350191 HYDROCORTISONE (RECTAL) Inactive ZOLOFT 50 MG TAB 1 tablet by mouth daily ZOLOFT 50 MG TAB 527221 SERTRALINE HCL Inactive CEFTIN 500 MG TAB 1 tablet by mouth twice daily for 7 days 07/24 CEFTIN 500 MG TAB 829382 CEFUROXIME AXETIL Inactive NITROFURANTOIN MACROCRYSTAL 100 MG CAPS 1 capsule PO bid x 7 days NITROFURANTOIN MACROCRYSTAL 100 MG CAPS 5841011 NITROFURANTOIN MACROCRYSTAL Inactive IBUPROFEN 800 MG TABS 1 tab every 8 hours as needed for pain 2013 IBUPROFEN 800 MG TABS 239868 IBUPROFEN Inactive COLACE 100 MG CAP 1 po BID PRN Constipation COLACE 100 MG CAP 8329256 DOCUSATE SODIUM Inactive MELOXICAM 15 MG TABS 1 po qd PRN Knee Pain MELOXICAM 15 MG TABS 272811 MELOXICAM Inactive LEVEMIR FLEXPEN 100 UNIT/ML SOLN 40 units SC at bedtime LEVEMIR FLEXPEN 100 UNIT/ML SOLN INSULIN DETEMIR Inactive GENTAMICIN SULFATE 0.1 % EXT OINT Apply to open sores once a day. GENTAMICIN SULFATE 0.1 % EXT OINT 513518 GENTAMICIN SULFATE Inactive ACYCLOVIR 400 MG TABS 1 po qd ACYCLOVIR 400 MG TABS 19720928 ACYCLOVIR Inactive AZITHROMYCIN 250 MG TABS take 2 po day 1 then take1 po days 2-5 AZITHROMYCIN 250 MG TABS 2640453 AZITHROMYCIN Inactive AZITHROMYCIN 250 MG TABS 2 po qd x 1 day, then 1 po qd x 4 days AZITHROMYCIN 250 MG TABS 7575687 AZITHROMYCIN Inactive ACYCLOVIR 400 MG TABS 1 pill twice daily ACYCLOVIR 400 MG TABS 913193 ACYCLOVIR Inactive DIFLUCAN 150 MG TAB 1 qODay x 2 doses DIFLUCAN 150 MG TAB 319914 FLUCONAZOLE Inactive ACYCLOVIR 400 MG TABS ACYCLOVIR 400 MG TABS 115476 ACYCLOVIR Inactive DIFLUCAN 150 MG TAB 1 qODay x 2 doses DIFLUCAN 150 MG TAB 583424 FLUCONAZOLE Inactive BACTRIM DS 800-160 MG TAB 1 tab by mouth twice daily BACTRIM DS 800-160 MG TAB 940580 TRIMETHOPRIM-SULFAMETHOXAZOLE Inactive Advance Directives Directive Description Start Date PERMISSION TO SHARE Vital Signs Date Name Value Unit Range Description blood pressure, diastolic - 8462-4 70 mm[Hg] BP [place] blood pressure, systolic - 8480-6 106 mm[Hg] BP sys pulse rate E&M - 8867-4 118 /min Heart rate temperature E&M 97.2 [degF] Body temperature weight E&M - 3141-9 112 [lb_av] Weight Measured blood pressure, diastolic - 8462-4 75 mm[Hg] BP [place] blood pressure, systolic - 8480-6 105 mm[Hg] BP sys pulse rate E&M - 8867-4 116 /min Heart rate temperature E&M 96.9 [degF] Body temperature weight E&M - 3141-9 118.5 [lb_av] Weight Measured blood pressure, diastolic - [...] Name Value Unit Range Description Lab Report: CBC, Comp. Metabolic Panel, Lipid Panel, HGBA1C - Chemistry sodium, serum 134 mmol/L 662-595 0815/03/16 carbon dioxide, venous blood 34.5 mmol/L 21.0-32.0 potassium, serum 4.6 mmol/L 3.5-5.2 chloride, serum 93 mmol/L 98-107 blood glucose 408 mg/dL 65-110 urea nitrogen, blood 3 mg/dL 7-18 creatinine, serum 0.58 mg/dL 0.55-1.30 alanine aminotransferase (SGPT), serum 11 U/L 12-78 aspartate aminotransferase (SGOT), serum 8 U/L 15-37 calcium, serum 9.2 mg/dL 8.5-10.1 bilirubin, serum, total 0.30 mg/dL 0.00-1.00 cholesterol, serum 195 mg/dL 357-971 1824/03/16 triglyceride, serum, fasting 138 mg/dL 30-200 HDL cholesterol, serum 41 mg/dL 32-96 LDL cholesterol, serum 126 mg/dL 0-130 hemoglobin A1C, blood, as % of total hemoglobin 13.6 % 4.3-6.0 Lab Report: CBC, Comp. Metabolic Panel, Lipid Panel, HGBA1C - Hematology leukocyte count, blood 15.0 10^3/MM^3 10*3/mm3 4.6-10.2 erythrocyte (RBC) count 5.06 10^6/MM^3 10*6/mm3 4.04-5.48 hemoglobin, blood 13.3 g/dL 12.0-16.0 hematocrit, blood 40.8 % 36.0-46.0 mean corpuscular volume, RBC 81 fL 80-97 mean corpuscular hemoglobin, RBC 26.3 pg 27.0-31.2 mean corpuscular hemoglobin concentration, RBC 32.6 G/DL % 31.8- 35.4 red blood cell distribution width 14.2 % 11.6-14.8 platelet count 429 10^3/MM^3 10*3/mm3 142-424 Lab Report: HGBA1C - Chemistry hemoglobin A1C, blood, as % of total hemoglobin 12.3 % 4.3-6.0 Lab Report: MICROALB/CREAT W/RATIO - Chemistry albumin/creatinine ratio, urine > 300 mg/g mg/g{creat} 0-29 Lab Report: MICROALB/CREAT W/RATIO - Lab microalbumin, urine 150 0-19 Encounters Code Encounter Date Provider Facility CPT-39729 Level 4 Est. Patient 14:36:17 CDT Ang Markham MD [facility] CPT-15803 Level 3 Est. Patient 11:13:47 PETS SALESPERSON Ang Markham MD [facility] CPT-54355 Level 3 Est. Patient 11:59:20 PETS SALESPERSON [facility] CPT-66245 Level 3 Est. Patient 17:32:37 PETS SALESPERSON [facility] CPT-51191 Level 4 Est. Patient 16:39:07 CDT Ang Markham MD [facility] CPT-49995 Level 3 Est. Patient 16:35:50 CDT Ang Markham MD [facility] CPT-39194 Level 4 Est. Patient 13:53:06 PETS SALESPERSON Ang Markham MD [facility] CPT-24857 Level 3 Est. Patient 08:58:08 PETS SALESPERSON Ang Markham MD [facility] CPT-81539 Level 3 Est. Patient 18:48:29 CDT Anthony Whitfield [facility] CPT-94631 Level 3 Est. Patient 12:16:59 CDT Gabriel Hunt DO [facility] CPT-26898 Level 3 Est. Patient 18:57:15 CDT Anthony Whitfield [facility] CPT-79649 Level 3 Est. Patient 13:59:22 PETS SALESPERSON Ang Markham MD [facility] CPT-01016 Level 4 Est. Patient 10:36:08 PETS SALESPERSON Ang Markham MD [facility] CPT-06121 Level 3 Est. Patient 16:27:02 CDT Eri Borges MD [facility] CPT-27556 Level 3 Est. Patient 10:36:43 CDT Octaviano Wilkersonjj [facility] CPT-94019 Level 4 New Patient 08:58:06 CDT Ang Markham MD [facility] Procedures Code Procedure Name Date Entry Date Standard Description CPT-17294 Venipuncture Draw Fee 12:25:15 CDT CPT-13994 Knee 3V 16:48:40 CDT CPT-OV Office Visit 16:27:13 CDT CPT-OV Office Visit 16:21:19 CDT CPT-96685 Sono pelvis non OB uterus ovaries cervix 09:37:28 CDT
--- OUTSIDE RECORDS SUMMARY | 2018-12-22 01:11 | XMS REPORT | Clinical Summary ---
Author Author Admin, QIE Organization [employer] Address Unknown Phone Unavailable Allergies, Adverse Reactions, [...] of menstruation Health screening V70.0 Active Ang Marhkam MD Routine general medical examination at a [...] 5 MG TABS 1 po qd LISINOPRIL 46284123643 Active Ang Markham MD Active NOVOLOG FLEXPEN 100 UNIT/ML SOPN Take 20 units TID with meals INSULIN ASPART 92135650421 Wiley Markham MD Active LEVEMIR FLEXTOUCH 100 UNIT/ML SC SOPN 60 units SC nightly INSULIN DETEMIR 42895585513 Wiley Markham MD Active COLACE 100 MG CAP 1 po BID PRN Constipation DOCUSATE SODIUM 36538166149 Wiley Markham MD Active PAXIL 20 MG TAB 1 tablet by mouth daily PAROXETINE HCL 65997380683 Wiley Markham MD Active GENTAMICIN SULFATE 0.1 % EXT OINT Apply to open sores once a day. GENTAMICIN SULFATE 55963589356 No Longer Active Ang Markham MD Active ZOLPIDEM TARTRATE 10 MG TABS 1 po qHS PRN Insomnia ZOLPIDEM TARTRATE 56998097595 Active Ang Markham MD Active BACTRIM DS 800-160 MG TAB 1 tab by mouth twice daily TRIMETHOPRIM-SULFAMETHOXAZOLE 81981761378 No Longer Active Gloria Jefersonum DIRECTOR OF ARCHITECTURE Active LEVEMIR FLEXPEN 100 UNIT/ML SOLN 40 units SC at bedtime INSULIN DETEMIR No Longer Active Susankalen Arellano RMA Active INSUPEN ULTRAFIN 31G X 6 MM MISC Use with insulin qid. DX: E11.9 INSULIN PEN NEEDLE 74422273449 Active Ang Markham MD Active ZOLOFT 100 MG TAB 1 po qHS SERTRALINE HCL 48025392735 No Longer Active Ang Markham MD Active MELOXICAM 15 MG TABS 1 po qd PRN Knee Pain MELOXICAM 79424149720 No Longer Active Ang Markham MD Active LIPITOR 40 MG TAB 1 po qHS ATORVASTATIN CALCIUM 09930517036 Active Ang Markham MD Active METFORMIN HCL 1000 MG TABS 1 tablet by mouth twice daily METFORMIN HCL 02265811736 Active Ang Markham MD Active CYCLOBENZAPRINE HCL 5 MG TABS 1 po qHS PRN Muscle pain CYCLOBENZAPRINE HCL 44890737363 Active Ang Markham MD Active COLACE 100 MG CAP 1 po BID PRN Constipation DOCUSATE SODIUM 88152666535 No Longer Active Ang Markham MD Active HYDROXYZINE HCL 25 MG TAB 1 TID PRN nerves HYDROXYZINE HCL 13463710027 Active Ang Markham MD Active IBUPROFEN 800 MG TABS 1 tab every 8 hours as needed for pain 2013 IBUPROFEN 08146846170 No Longer Active Ang Markham MD Active NITROFURANTOIN MACROCRYSTAL 100 MG CAPS 1 capsule PO bid x 7 days NITROFURANTOIN MACROCRYSTAL 12487213718 No Longer Active Ang Markham MD Active DIFLUCAN 150 MG TAB 1 qODay x 2 doses FLUCONAZOLE 74240975339 No Longer Active Da Romero APRN Active CEFTIN 500 MG TAB 1 tablet by mouth twice daily for 7 days 07/24 CEFUROXIME AXETIL 82626560708 No Longer Active Anthony CARBONE Active ZOLOFT 50 MG TAB 1 tablet by mouth daily SERTRALINE HCL 87823677785 No Longer Active Anthony CARBONE Active ANUSOL-HC 2.5 % CREAM apply as needed HYDROCORTISONE (RECTAL) 14080936613 No Longer Active Anthony CARBONE Active COLACE 100 MG CAP 1 tab PO BID DOCUSATE SODIUM 75476686972 No Longer Active Anthony CARBONE Active TRINESSA (28) 0.18/0.215/0.25 MG-35 MCG TABS 1 po qd as directed NORGESTIM-ETH ESTRAD TRIPHASIC 65952006675 No Longer Active Anthony CARBONE Active [facility] MELATONIN 5 MG TABS 1-2 po qHS PRN Insomnia MELATONIN 29803683749 No Longer Active Anthony CARBONE Active ACYCLOVIR 400 MG TABS ACYCLOVIR 32363937898 No Longer Active Ang Markham MD Active EMBRACE BLOOD GLUCOSE TEST STRP Test blood sugars 4 times daily and PRN 08/05 GLUCOSE BLOOD 86742208158 Active Ang Markham MD Active HYDROXYZINE HCL 25 MG TABS 1 tab PO tid PRN itching HYDROXYZINE HCL 00555719705 No Longer Active Ang Markham MD Active DIFLUCAN 150 MG TAB 1 qODay x 2 doses FLUCONAZOLE 26692488599 No Longer Active Da Romero APRN Active ACYCLOVIR 400 MG TABS 1 pill twice daily ACYCLOVIR 93477257574 No Longer Active Da Romero APRN Active AZITHROMYCIN 250 MG TABS 2 po qd x 1 day, then 1 po qd x 4 days AZITHROMYCIN 25613151518 No Longer Active Eri Borges MD PhD Active AZITHROMYCIN 250 MG TABS take 2 po day 1 then take1 po days 2-5 AZITHROMYCIN 97361953893 No Longer Active Octaviano CARBONE Active ACYCLOVIR 400 MG TABS 1 po qd ACYCLOVIR 75327567373 No Longer Active Ang Markham MD Active PROZAC 40 MG CAPS 1 cap by mouth at bedtime FLUOXETINE HCL 26990270100 No Longer Active Ang Markham MD Active HYDROXYZINE HCL 25 MG TABS 1 tab PO tid PRN itching HYDROXYZINE HCL 25 MG TABS 629857 HYDROXYZINE HCL Inactive [facility] MELATONIN 5 MG TABS 1-2 po qHS PRN Insomnia [facility] MELATONIN 5 MG TABS 645315 MELATONIN Inactive TRINESSA (28) 0.18/0.215/0.25 MG-35 MCG TABS 1 po qd as directed TRINESSA (28) 0.18/0.215/0.25 MG-35 MCG TABS 385120 NORGESTIM-ETH ESTRAD TRIPHASIC Inactive COLACE 100 MG CAP 1 tab PO BID COLACE 100 MG CAP 9187561 DOCUSATE SODIUM Inactive ANUSOL-HC 2.5 % CREAM apply as needed ANUSOL-HC 2.5 % CREAM 276811 HYDROCORTISONE (RECTAL) Inactive ZOLOFT 50 MG TAB 1 tablet by mouth daily ZOLOFT 50 MG TAB 791346 SERTRALINE HCL Inactive CEFTIN 500 MG TAB 1 tablet by mouth twice daily for 7 days 07/24 CEFTIN 500 MG TAB 128041 CEFUROXIME AXETIL Inactive NITROFURANTOIN MACROCRYSTAL 100 MG CAPS 1 capsule PO bid x 7 days NITROFURANTOIN MACROCRYSTAL 100 MG CAPS 0181161 NITROFURANTOIN MACROCRYSTAL Inactive IBUPROFEN 800 MG TABS 1 tab every 8 hours as needed for pain 2013 IBUPROFEN 800 MG TABS 370916 IBUPROFEN Inactive COLACE 100 MG CAP 1 po BID PRN Constipation COLACE 100 MG CAP 7212923 DOCUSATE SODIUM Inactive MELOXICAM 15 MG TABS 1 po qd PRN Knee Pain MELOXICAM 15 MG TABS 632983 MELOXICAM Inactive LEVEMIR FLEXPEN 100 UNIT/ML SOLN 40 units SC at bedtime LEVEMIR FLEXPEN 100 UNIT/ML SOLN INSULIN DETEMIR Inactive GENTAMICIN SULFATE 0.1 % EXT OINT Apply to open sores once a day. GENTAMICIN SULFATE 0.1 % EXT OINT 430541 GENTAMICIN SULFATE Inactive ACYCLOVIR 400 MG TABS 1 po qd ACYCLOVIR 400 MG TABS 19720928 ACYCLOVIR Inactive AZITHROMYCIN 250 MG TABS take 2 po day 1 then take1 po days 2-5 AZITHROMYCIN 250 MG TABS 7128554 AZITHROMYCIN Inactive AZITHROMYCIN 250 MG TABS 2 po qd x 1 day, then 1 po qd x 4 days AZITHROMYCIN 250 MG TABS 5965757 AZITHROMYCIN Inactive ACYCLOVIR 400 MG TABS 1 pill twice daily ACYCLOVIR 400 MG TABS 862734 ACYCLOVIR Inactive DIFLUCAN 150 MG TAB 1 qODay x 2 doses DIFLUCAN 150 MG TAB 529529 FLUCONAZOLE Inactive ACYCLOVIR 400 MG TABS ACYCLOVIR 400 MG TABS 301448 ACYCLOVIR Inactive DIFLUCAN 150 MG TAB 1 qODay x 2 doses DIFLUCAN 150 MG TAB 322889 FLUCONAZOLE Inactive BACTRIM DS 800-160 MG TAB 1 tab by mouth twice daily BACTRIM DS 800-160 MG TAB 037372 TRIMETHOPRIM-SULFAMETHOXAZOLE Inactive Advance Directives Directive Description Start [...] HGBA1C - Chemistry sodium, serum 134 mmol/L 711-002 3538/03/16 carbon dioxide, venous blood 34.5 mmol/L 21.0-32.0 potassium, serum 4.6 mmol/L 3.5-5.2 chloride, serum 93 mmol/L 98-107 blood glucose 408 mg/dL 65-110 urea nitrogen, blood 3 mg/dL 7-18 creatinine, serum 0.58 mg/dL 0.55-1.30 alanine aminotransferase (SGPT), serum 11 U/L 12-78 aspartate aminotransferase (SGOT), serum 8 U/L 15-37 calcium, serum 9.2 mg/dL 8.5-10.1 bilirubin, serum, total 0.30 mg/dL 0.00-1.00 cholesterol, serum 195 mg/dL 032-582 4326/03/16 triglyceride, serum, fasting 138 mg/dL 30-200 HDL [...] 0-19 Encounters Code Encounter Date Provider Facility CPT-58454 Level 4 Est. Patient 14:36:17 CDT Ang Markham MD [facility] CPT-67705 Level 3 Est. Patient 11:13:47 VISUAL DISPLAY MANAGER Ang Markham MD [facility] CPT-81458 Level 3 Est. Patient 11:59:20 VISUAL DISPLAY MANAGER Gloria Dunbar [facility] CPT-78353 Level 3 Est. Patient 17:32:37 VISUAL DISPLAY MANAGER Gloria Dunbar [facility] CPT-89491 Level 4 Est. Patient 16:39:07 CDT Ang Markham MD [facility] CPT-04648 Level 3 Est. Patient 16:35:50 CDT Ang Markham MD [facility] CPT-95500 Level 4 Est. Patient 13:53:06 VISUAL DISPLAY MANAGER Ang Markham MD [facility] CPT-33436 Level 3 Est. Patient 08:58:08 VISUAL DISPLAY MANAGER Ang Markham MD [facility] CPT-75764 Level 3 Est. Patient 18:48:29 CDT Anthony Whitfield [facility] CPT-09252 Level 3 Est. Patient 12:16:59 CDT Gabriel Hunt DO [facility] CPT-23220 Level 3 Est. Patient 18:57:15 CDT Anthony Whitfield [facility] CPT-76824 Level 3 Est. Patient 13:59:22 VISUAL DISPLAY MANAGER Ang Markham MD [facility] CPT-60157 Level 4 Est. Patient 10:36:08 VISUAL DISPLAY MANAGER Ang Markham MD [facility] CPT-65741 Level 3 Est. Patient 16:27:02 CDT Eri Borges MD [facility] CPT-15350 Level 3 Est. Patient 10:36:43 CDT Octaviano Wilkersonjj [facility] CPT-58138 Level 4 New Patient 08:58:06 CDT Ang Markham MD [facility] Procedures Code Procedure Name Date Entry Date Standard Description CPT-89183 Venipuncture Draw Fee 12:25:15 CDT CPT-81043 Knee 3V 16:48:40 CDT CPT-OV Office Visit 16:27:13 CDT CPT-OV Office Visit 16:21:19 CDT CPT-38466 Sono pelvis non OB uterus ovaries cervix 09:37:28 CDT
--- OUTSIDE RECORDS SUMMARY | 2018-12-22 01:12 | XMS REPORT | Clinical Summary ---
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], not stated as uncontrolled intermediate use 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 V58.67 Resolved Ang Markham MD Long-term (current) use of insulin Neurotic [...] Resolved Ang Markham MD Acute swimmers' ear terminal operator use 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 V58.67 Active Celestine PEARCE Long-term (current) use of insulin Low back pain, acute 724.2 Active Shreya Velazquez APRN Lumbago Pharyngitis, acute / sore throat 462 Active Shreya Velazquez APRN Acute pharyngitis Cellulitis 682.9 Active Conner Hills MD Cellulitis and abscess of unspecified sites DEPRESSION ICD-311 Inactive Ang Markham MD Diabetes mellitus ICD-250.00 Inactive Ang Markham MD AMENORRHEA ICD-626.0 Inactive Eri Borges MD PhD ABDOMINAL PAIN RIGHT LOWER QUADRANT ICD-789.03 Inactive Eri Borges MD PhD LOM ICD-382.9 Inactive Eri Borges MD PhD PSORIASIS ICD-696.1 Inactive Ang Markham MD SINUSITIS, ACUTE ICD-461.9 Inactive Ang Markham MD Constipation ICD-564.00 Nathan Markham MD Anal or rectal pain ICD-569.42 Nathan Markham MD CANDIDAL VAGINITIS ICD-112.1 Inactive Ang Markham MD Joint crepitus, knee ICD-719.66 Nathan Markham MD Knee pain, bilateral ICD-719.46 Nathan Markham MD Cystitis, acute ICD-595.0 Nathan Markham MD UTI ICD-599.0 Nathan Markham MD Insomnia ICD-780.52 Nathan Markham MD Diabetes mellitus ICD-250.00 Nathan Markham MD Vaginal discharge ICD-623.5 Nathan Markham MD Amenorrhea ICD-626.0 Nathan Markham MD Cellulitis, ankle, left ICD-682.6 Nathan Markham MD Diabetes mellitus, type I, with hypoglycemia ICD-250.81 Nathan Markham MD intermediate use 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 ICD-V58.67 Nathan Markham MD Abdominal pain ICD-789.00 Nathan Markham MD Hematochezia ICD-578.1 Nathan Markham MD Nausea ICD-787.02 Nathan Markham MD 2016/ 09/29 Otitis externa, acute, left ICD-380.12 Inactive Ang Markham MD Medication List Medication Instructions Start Date Stop Date Generic Name NDC Status Provider Patient Instruction TYLENOL WITH CODEINE #3 300-30 MG TABS 1 every four hours as needed for pain ACETAMINOPHEN-CODEINE 39946336898 Active Conner Hills MD Active CLINDAMYCIN HCL 300 MG ORAL CAPS 1 four times a day CLINDAMYCIN HCL 46555109090 Active Conner Hills MD Active LEVAQUIN 500 MG TABS 1 daily for infection LEVOFLOXACIN 04478713577 No Longer Active Conner Hills MD Active DOXEPIN HCL 10 MG CAP 1 tablet nightly for the itch DOXEPIN HCL 59719851022 No Longer Active Conner Hills MD Active TRESIBA FLEXTOUCH 200 UNIT/ML SC SOPN Take 70 units daily at mid-night to 1 am. INSULIN DEGLUDEC 25244973465 No Longer Active Conner Hills MD Active METFORMIN HCL 1000 MG TABS 1 tablet by mouth twice daily METFORMIN HCL 75156721860 No Longer Active Conner Hills MD Active LIPITOR 40 MG TAB 1 po qHS ATORVASTATIN CALCIUM 76613347815 No Longer Active Conner Hills MD Active GEMFIBROZIL 600 MG TABS 1 po BID GEMFIBROZIL 95648584752 No Longer Active Conner Hills MD Active CORTISPORIN 3.5-62608-4 SOLN 4gtts in affected ear QID x 7 days [id number] 27906046904 No Longer Active Ang Markham MD Active LEVEMIR FLEXTOUCH 100 UNIT/ML SC SOPN 35 units SC at 12-1pm, 35 units 12-1am INSULIN DETEMIR 79694612452 No Longer Active Celestine MENDEZP Active REGLAN 10 MG TAB 0.5 po TID 30min prior to meals METOCLOPRAMIDE HCL 81517769148 Active Ang Markham MD Active ZANTAC 150 MG TAB 1 po BID RANITIDINE HCL 39897562274 Active Ang Markham MD Active COLACE 100 MG CAP 1 po daily DOCUSATE SODIUM 54422717629 Active Gabriel Hunt DO Active NOVOLOG FLEXPEN 100 UNIT/ML SOPN Take 20 units TID with meals, plus 2u/50 for blood sugars above 150. Ratio vs. Carbs INSULIN ASPART 00097927970 Active Gabriel Hunt DO Active BD PEN NEEDLE DINESH U/F 32G X 4 MM MISC 5 a day INSULIN PEN NEEDLE 46427239643 Active Malwalter Ziglari PRODUCTION TEAM LEADER Active EMBRACE BLOOD GLUCOSE TEST STRP Test blood sugars 4 times daily and PRN 08/05 GLUCOSE BLOOD 18040093239 No Longer Active Malstepheneh Ziglari PRODUCTION TEAM LEADER Active TRUEPLUS LANCETS 30G MISC 4 a day LANCETS 46071476055 Active Maliheh Ziglari PRODUCTION TEAM LEADER Active TRUETEST TEST STRP check blood sugars 4x/day GLUCOSE BLOOD 92020442624 Active Maliheh Ziglari PRODUCTION TEAM LEADER Active TRUERESULT BLOOD GLUCOSE W/DEVICE KIT check blood sugars 4x a day BLOOD GLUCOSE MONITORING SUPPL 80934514462 Active Malstepheneh Ziglari PRODUCTION TEAM LEADER Active LISINOPRIL 5 MG TABS 1 po qd LISINOPRIL 05591228427 Active Ang Markham MD Active PAXIL 20 MG TAB 1 tablet by mouth daily PAROXETINE HCL 52135870042 Active Ang Markham MD Active GENTAMICIN SULFATE 0.1 % EXT OINT Apply to open sores once a day. GENTAMICIN SULFATE 42724316034 No Longer Active Ang Markham MD Active ZOLPIDEM TARTRATE 10 MG TABS 1 po qHS PRN Insomnia ZOLPIDEM TARTRATE 59872111521 Active Ang Markham MD Active BACTRIM DS 800-160 MG TAB 1 tab by mouth twice daily TRIMETHOPRIM-SULFAMETHOXAZOLE 72864137991 No Longer Active Gloria Dunbar PIPE COVERER AND INSULATOR Active LEVEMIR FLEXPEN 100 UNIT/ML SOLN 40 units SC at bedtime INSULIN DETEMIR No Longer Active Susan Arellano RMA Active INSUPEN ULTRAFIN 31G X 6 MM MISC Use with insulin qid. DX: E11.9 INSULIN PEN NEEDLE 94970152970 Active Ang Markham MD Active ZOLOFT 100 MG TAB 1 po qHS SERTRALINE HCL 53207141358 No Longer Active Ang Markham MD Active MELOXICAM 15 MG TABS 1 po qd PRN Knee Pain MELOXICAM 60647857718 No Longer Active Ang Markham MD Active CYCLOBENZAPRINE HCL 5 MG TABS 1 po qHS PRN Muscle pain CYCLOBENZAPRINE HCL 59769696637 Active Ang Markham MD Active COLACE 100 MG CAP 1 po BID PRN Constipation DOCUSATE SODIUM 27148578714 No Longer Active Ang Markham MD Active HYDROXYZINE HCL 25 MG TAB 1 TID PRN nerves HYDROXYZINE HCL 22572550862 Active Ang Markham MD Active IBUPROFEN 800 MG TABS 1 tab every 8 hours as needed for pain 2013 IBUPROFEN 57712732447 No Longer Active Ang Markham MD Active NITROFURANTOIN MACROCRYSTAL 100 MG CAPS 1 capsule PO bid x 7 days NITROFURANTOIN MACROCRYSTAL 34988931796 No Longer Active Ang Markham MD Active DIFLUCAN 150 MG TAB 1 qODay x 2 doses FLUCONAZOLE 49111639008 No Longer Active Da Romero APRN Active CEFTIN 500 MG TAB 1 tablet by mouth twice daily for 7 days 07/24 CEFUROXIME AXETIL 20528719545 No Longer Active Anthony CARBONE Active ZOLOFT 50 MG TAB 1 tablet by mouth daily SERTRALINE HCL 93648397054 No Longer Active Anthony CARBONE Active ANUSOL-HC 2.5 % CREAM apply as needed HYDROCORTISONE (RECTAL) 45906950661 No Longer Active Anthony CARBONE Active COLACE 100 MG CAP 1 tab PO BID DOCUSATE SODIUM 10271135240 No Longer Active Anthony CARBONE Active TRINESSA (28) 0.18/0.215/0.25 MG-35 MCG TABS 1 po qd as directed NORGESTIM-ETH ESTRAD TRIPHASIC 59207928324 No Longer Active Anthony CARBONE Active [facility] MELATONIN 5 MG TABS 1-2 po qHS PRN Insomnia MELATONIN 22456281821 No Longer Active Anthony CARBONE Active ACYCLOVIR 400 MG TABS ACYCLOVIR 35533243482 No Longer Active Ang Markham MD Active HYDROXYZINE HCL 25 MG TABS 1 tab PO tid PRN itching HYDROXYZINE HCL 80482022681 No Longer Active Ang Markham MD Active DIFLUCAN 150 MG TAB 1 qODay x 2 doses FLUCONAZOLE 07091953071 No Longer Active Da Romero APRN Active ACYCLOVIR 400 MG TABS 1 pill twice daily ACYCLOVIR 81696607580 No Longer Active Jillina Nick OSHEA Active AZITHROMYCIN 250 MG TABS 2 po qd x 1 day, then 1 po qd x 4 days AZITHROMYCIN 09638136970 No Longer Active Eri Borges MD PhD Active AZITHROMYCIN 250 MG TABS take 2 po day 1 then take1 po days 2-5 AZITHROMYCIN 32835524038 No Longer Active Octaviano CARBONE Active ACYCLOVIR 400 MG TABS 1 po qd ACYCLOVIR 90486577223 No Longer Active Ang Markham MD Active PROZAC 40 MG CAPS 1 cap by mouth at bedtime FLUOXETINE HCL 38381009904 No Longer Active Ang Markham MD Active HYDROXYZINE HCL 25 MG TABS 1 tab PO tid PRN itching HYDROXYZINE HCL 25 MG TABS 123735 HYDROXYZINE HCL Inactive [facility] MELATONIN 5 MG TABS 1-2 po qHS PRN Insomnia [facility] MELATONIN 5 MG TABS 690620 MELATONIN Inactive TRINESSA (28) 0.18/0.215/0.25 MG-35 MCG TABS 1 po qd as directed TRINESSA (28) 0.18/0.215/0.25 MG-35 MCG TABS 903776 NORGESTIM-ETH ESTRAD TRIPHASIC Inactive COLACE 100 MG CAP 1 tab PO BID COLACE 100 MG CAP 9952176 DOCUSATE SODIUM Inactive ANUSOL-HC 2.5 % CREAM apply as needed ANUSOL-HC 2.5 % CREAM 913059 HYDROCORTISONE (RECTAL) Inactive ZOLOFT 50 MG TAB 1 tablet by mouth daily ZOLOFT 50 MG TAB 566570 SERTRALINE HCL Inactive CEFTIN 500 MG TAB 1 tablet by mouth twice daily for 7 days 07/24 CEFTIN 500 MG TAB 620935 CEFUROXIME AXETIL Inactive NITROFURANTOIN MACROCRYSTAL 100 MG CAPS 1 capsule PO bid x 7 days NITROFURANTOIN MACROCRYSTAL 100 MG CAPS 1088334 NITROFURANTOIN MACROCRYSTAL Inactive IBUPROFEN 800 MG TABS 1 tab every 8 hours as needed for pain 2013 IBUPROFEN 800 MG TABS 784978 IBUPROFEN Inactive COLACE 100 MG CAP 1 po BID PRN Constipation COLACE 100 MG CAP 6414265 DOCUSATE SODIUM Inactive MELOXICAM 15 MG TABS 1 po qd PRN Knee Pain MELOXICAM 15 MG TABS 729042 MELOXICAM Inactive LEVEMIR FLEXPEN 100 UNIT/ML SOLN 40 units SC at bedtime LEVEMIR FLEXPEN 100 UNIT/ML SOLN INSULIN DETEMIR Inactive GENTAMICIN SULFATE 0.1 % EXT OINT Apply to open sores once a day. GENTAMICIN SULFATE 0.1 % EXT OINT 042692 GENTAMICIN SULFATE Inactive EMBRACE BLOOD GLUCOSE TEST STRP Test blood sugars 4 times daily and PRN 08/05 EMBRACE BLOOD GLUCOSE TEST STRP GLUCOSE BLOOD Inactive LEVEMIR FLEXTOUCH 100 UNIT/ML SC SOPN 35 units SC at 12-1pm, 35 units 12-1am LEVEMIR FLEXTOUCH 100 UNIT/ML SC SOPN INSULIN DETEMIR Inactive CORTISPORIN 3.5-70677-8 SOLN 4gtts in affected ear QID x 7 days CORTISPORIN 3.5-14897-7 SOLN 819845 [id number] Inactive GEMFIBROZIL 600 MG TABS 1 po BID GEMFIBROZIL 600 MG TABS 250978 GEMFIBROZIL Inactive LIPITOR 40 MG TAB 1 po qHS LIPITOR 40 MG TAB 473384 ATORVASTATIN CALCIUM Inactive METFORMIN HCL 1000 MG TABS 1 tablet by mouth twice daily METFORMIN HCL 1000 MG TABS 690018 METFORMIN HCL Inactive TRESIBA FLEXTOUCH 200 UNIT/ML SC SOPN Take 70 units daily at mid-night to 1 am. TRESIBA FLEXTOUCH 200 UNIT/ML SC SOPN INSULIN DEGLUDEC Inactive DOXEPIN HCL 10 MG CAP 1 tablet nightly for the itch DOXEPIN HCL 10 MG CAP 0993238 DOXEPIN HCL Inactive LEVAQUIN 500 MG TABS 1 daily for infection LEVAQUIN 500 MG TABS 279749 LEVOFLOXACIN Inactive ACYCLOVIR 400 MG TABS 1 po qd ACYCLOVIR 400 MG TABS 742869 ACYCLOVIR Inactive AZITHROMYCIN 250 MG TABS take 2 po day 1 then take1 po days 2-5 AZITHROMYCIN 250 MG TABS 9760231 AZITHROMYCIN Inactive AZITHROMYCIN 250 MG TABS 2 po qd x 1 day, then 1 po qd x 4 days AZITHROMYCIN 250 MG TABS 8474394 AZITHROMYCIN Inactive ACYCLOVIR 400 MG TABS 1 pill twice daily ACYCLOVIR 400 MG TABS 19720928 ACYCLOVIR Inactive DIFLUCAN 150 MG TAB 1 qODay x 2 doses DIFLUCAN 150 MG TAB 380875 FLUCONAZOLE Inactive ACYCLOVIR 400 MG TABS ACYCLOVIR 400 MG TABS 19720928 ACYCLOVIR Inactive DIFLUCAN 150 MG TAB 1 qODay x 2 doses DIFLUCAN 150 MG TAB 19760606 FLUCONAZOLE Inactive BACTRIM DS 800-160 MG TAB 1 tab by mouth twice daily BACTRIM DS 800-160 MG TAB 525122 TRIMETHOPRIM-SULFAMETHOXAZOLE Inactive Advance Directives Directive Description Start Date PERMISSION TO SHARE Vital Signs Date Name Value Unit Range Description blood pressure, diastolic - 8462-4 88 mm[Hg] BP [place] blood pressure, systolic - 8480-6 126 mm[Hg] BP sys pulse rate E&M - 8867-4 94 /min Heart rate temperature E&M 97.6 [degF] Body temperature weight E&M - 3141-9 110.5 [lb_av] Weight Measured blood pressure, diastolic - 8462-4 68 mm[Hg] BP [place] blood pressure, systolic - 8480-6 96 mm[Hg] BP sys pulse rate E&M - 8867-4 108 /min Heart rate temperature E&M 98.4 [degF] Body temperature weight E&M - 3141-9 106.5 [lb_av] Weight Measured blood pressure, diastolic - 8462-4 76 mm[Hg] [...] Name Value Unit Range Description Lab Report: Comp. Metabolic Panel, Lipid Panel - Chemistry sodium, serum 130 mmol/L 756-457 5352/10/12 carbon dioxide, venous blood 28.1 mmol/L 21.0-32.0 potassium, serum 3.9 mmol/L 3.5-5.2 chloride, serum 91 mmol/L 98-107 blood glucose 547 mg/dL 65-110 urea nitrogen, blood 3 mg/dL 7-18 creatinine, serum 0.78 mg/dL 0.55-1.30 alanine aminotransferase (SGPT), serum 11 U/L 12-78 aspartate aminotransferase (SGOT), serum 7 U/L 15-37 calcium, serum 8.8 mg/dL 8.5-10.1 bilirubin, serum, total 0.30 mg/dL 0.00-1.00 cholesterol, serum 221 mg/dL 190-164 7137/10/12 triglyceride, serum, fasting 590 mg/dL 30-200 HDL cholesterol, serum 45 mg/dL 32-96 LDL cholesterol, serum 58 mg/dL 0-130 Lab Report: HGBA1C - Chemistry hemoglobin A1C, blood, as % of total hemoglobin 11.4 % 4.3-6.0 Lab Report: UADIP W/MICRO, AUTO, CBC W/DIFF, Comp. Metabolic Panel - Chemistry RBC, urine, dipstick Negative Negative sodium, serum 133 mmol/L 073-894 2954/06/03 carbon dioxide, venous blood 33.4 mmol/L 21.0-32.0 [...] nitrite, urine, semiquantitative Negative Negative [place] [facility] [place] human chorionic gonadotropin, urine, qualitative [...] mg/dL Encounters Code Encounter Date Provider Facility CPT-83041 Level 3 Est. Patient 10:22:30 CDT Conner Hills MD [facility] CPT-44359 Level 3 Est. Patient 15:02:19 CDT Shreya Velazquez [facility] CPT-69503 Level 3 Est. Patient 13:22:25 CDT Gabriel Hunt [facility] CPT-78662 Level 4 Est. Patient 16:02:22 CDT Ang Markham MD [facility] CPT-10959 Level 3 Est. Patient 16:21:[address] [facility] [place] CPT-95875 Level 3 Est. Patient 17:02:56 CDT Gabriel Hunt [facility] CPT-02537 Level 3 Est. Patient 14:46:22 CDT Da Romero [facility] CPT-70815 Level 4 Est. Patient 13:55:20 CDT Ang Markham MD [facility] CPT-17491 Level 4 Est. Patient 16:10:[address] [facility] [place] CPT-60025 Level 3 Est. Patient 13:51:24 CDT Ang Markham MD [facility] CPT-14109 Level 3 Est. Patient 18:42:15 CDT Gabriel Hunt [facility] CPT-55723 Level 5 Est. Patient 14:40:[address] [facility] CPT-09438 Level 4 Est. Patient 14:36:17 CDT Ang Markham MD [facility] CPT-40336 Level 3 Est. Patient 11:13:47 ADJUNCT POLITICAL SCIENCE INSTRUCTOR Ang Markham MD [facility] CPT-18392 Level 3 Est. Patient 11:59:20 ADJUNCT POLITICAL SCIENCE INSTRUCTOR Gloria Dunbar [facility] CPT-97683 Level 3 Est. Patient 17:32:37 ADJUNCT POLITICAL SCIENCE INSTRUCTOR Gloria Dunbar [facility] CPT-12888 Level 4 Est. Patient 16:39:07 CDT Ang Markham MD [facility] CPT-51771 Level 3 Est. Patient 16:35:50 CDT Ang Markham MD [facility] CPT-52880 Level 4 Est. Patient 13:53:06 ADJUNCT POLITICAL SCIENCE INSTRUCTOR Ang Markham MD [facility] CPT-70685 Level 3 Est. Patient 08:58:08 ADJUNCT POLITICAL SCIENCE INSTRUCTOR Ang Markham MD [facility] CPT-01089 Level 3 Est. Patient 18:48:29 CDT Anthony [facility] CPT-64042 Level 3 Est. Patient 12:16:59 CDT Gabriel Hunt DO [facility] CPT-89164 Level 3 Est. Patient 18:57:15 CDT Anthony [facility] CPT-20834 Level 3 Est. Patient 13:59:22 ADJUNCT POLITICAL SCIENCE INSTRUCTOR Ang Markham MD [facility] CPT-28211 Level 4 Est. Patient 10:36:08 ADJUNCT POLITICAL SCIENCE INSTRUCTOR Ang Markham MD [facility] CPT-45854 Level 3 Est. Patient 16:27:02 CDT Eri Borges MD PhD [facility] CPT-73376 Level 3 Est. Patient 10:36:43 CDT Octaviano Dem[facility] CPT-36128 Level 4 New Patient 08:58:06 CDT Ang Markham MD [facility] Procedures Code Procedure Name Date Entry Date Standard Description CPT-45375 LS spine comp w obliques - XRAY USE ONLY 15:34:48 CDT CPT-90280 Lipid - LAB USE ONLY 15:28:39 CDT CPT-39302 CMP - LAB USE ONLY 15:28:39 CDT CPT-47454 Venipuncture Draw Fee 15:28:39 CDT CPT-09960 Abd compl w upright - XRAY USE ONLY 14:09:39 CDT 02/28 CPT-50127 Venipuncture Draw Fee 12:25:15 CDT CPT-46874 Knee 3V 16:48:40 CDT CPT-OV Office Visit 16:27:13 CDT CPT-OV Office Visit 16:21:19 CDT CPT-91544 Sono pelvis non OB uterus ovaries cervix 09:37:28 CDT
--- OUTSIDE RECORDS SUMMARY | 2018-12-22 01:12 | XMS REPORT | Clinical Summary ---
Author Author Admin, QIE Organization [employer] Address Unknown Phone Unavailable Allergies, Adverse Reactions, [...] Ang Markham MD CANDIDAL VAGINITIS ICD-112.1 Inactive nAg Markham MD Joint crepitus, knee ICD-719.66 Inactive Ang Markham MD Knee pain, bilateral ICD-719.46 Inactive Ang Markham MD Cystitis, acute ICD-595.0 Inactive Ang Markham MD UTI ICD-599.0 Inactive Ang Markham MD Diabetes mellitus ICD-250.00 Inactive Ang Markham MD Vaginal discharge ICD-623.5 Inactive Ang Markham MD Amenorrhea ICD-626.0 Inactive Ang Markham MD Cellulitis, ankle, left ICD-682.6 Inactive Ang Markham MD Medication List Medication Instructions Start Date Stop Date Generic Name NDC Status Provider Patient Instruction COLACE 100 MG CAP 1 po BID PRN Constipation DOCUSATE SODIUM 04070743092 Active Ang Markham MD Active PAXIL 20 MG TAB 1 tablet by mouth daily PAROXETINE HCL 57451566072 Active Ang Markham MD Active GENTAMICIN SULFATE 0.1 % EXT OINT Apply to open sores once a day. GENTAMICIN SULFATE 99580664103 No Longer Active Ang Markham MD Active ZOLPIDEM TARTRATE 10 MG TABS 1 po qHS PRN Insomnia ZOLPIDEM TARTRATE 65127675841 Active Ang Markham MD Active BACTRIM DS 800-160 MG TAB 1 tab by mouth twice daily TRIMETHOPRIM-SULFAMETHOXAZOLE 70102225092 No Longer Active Gloria Dunbar DIRECTOR OF FLIGHT OPERATIONS Active LEVEMIR FLEXTOUCH 100 UNIT/ML SC SOPN 40 units SC nightly INSULIN DETEMIR 56316753626 Active Ang Markham MD Active LEVEMIR FLEXPEN 100 UNIT/ML SOLN 40 units SC at bedtime INSULIN DETEMIR No Longer Active Susan Arellano RMA Active INSUPEN ULTRAFIN 31G X 6 MM MISC Use with insulin qid. DX: E11.9 INSULIN PEN NEEDLE 12192322382 Active Ang Markham MD Active ZOLOFT 100 MG TAB 1 po qHS SERTRALINE HCL 89390754105 No Longer Active Ang Markham MD Active MELOXICAM 15 MG TABS 1 po qd PRN Knee Pain MELOXICAM 67792360041 No Longer Active Ang Markham MD Active LIPITOR 40 MG TAB 1 po qHS ATORVASTATIN CALCIUM 16439428098 Active Ang Markham MD Active METFORMIN HCL 1000 MG TABS 1 tablet by mouth twice daily METFORMIN HCL 57518436649 Active Ang Markham MD Active CYCLOBENZAPRINE HCL 5 MG TABS 1 po qHS PRN Muscle pain CYCLOBENZAPRINE HCL 17557196628 Active Ang Markham MD Active COLACE 100 MG CAP 1 po BID PRN Constipation DOCUSATE SODIUM 27844241278 No Longer Active Ang Markham MD Active HYDROXYZINE HCL 25 MG TAB 1 TID PRN nerves HYDROXYZINE HCL 79570730943 Active Ang Markham MD Active IBUPROFEN 800 MG TABS 1 tab every 8 hours as needed for pain 2013 IBUPROFEN 22122353853 No Longer Active Ang Markham MD Active NITROFURANTOIN MACROCRYSTAL 100 MG CAPS 1 capsule PO bid x 7 days NITROFURANTOIN MACROCRYSTAL 34471625897 No Longer Active Ang Markham MD Active DIFLUCAN 150 MG TAB 1 qODay x 2 doses FLUCONAZOLE 81587875626 No Longer Active Da Romero DIRECTOR OF FLIGHT OPERATIONS Active CEFTIN 500 MG TAB 1 tablet by mouth twice daily for 7 days 07/24 CEFUROXIME AXETIL 57364216448 No Longer Active Anthony CARBONE Active ZOLOFT 50 MG TAB 1 tablet by mouth daily SERTRALINE HCL 44247189834 No Longer Active Anthony CARBONE Active ANUSOL-HC 2.5 % CREAM apply as needed HYDROCORTISONE (RECTAL) 07482595657 No Longer Active Anthony CARBONE Active COLACE 100 MG CAP 1 tab PO BID DOCUSATE SODIUM 22364353315 No Longer Active Anthony CARBONE Active TRINESSA (28) 0.18/0.215/0.25 MG-35 MCG TABS 1 po qd as directed NORGESTIM-ETH ESTRAD TRIPHASIC 46450752220 No Longer Active Anthony CARBONE Active [facility] MELATONIN 5 MG TABS 1-2 po qHS PRN Insomnia MELATONIN 20299967250 No Longer Active Anthony CARBONE Active NOVOLOG FLEXPEN 100 UNIT/ML SOPN Take 18 units TID with meals INSULIN ASPART 38423791178 Active Codey Hdez MD Active ACYCLOVIR 400 MG TABS ACYCLOVIR 30108204498 No Longer Active Ang Markham MD Active EMBRACE BLOOD GLUCOSE TEST STRP Test blood sugars 4 times daily and PRN 08/05 GLUCOSE BLOOD 79979827308 Active Ang Markham MD Active HYDROXYZINE HCL 25 MG TABS 1 tab PO tid PRN itching HYDROXYZINE HCL 74535301310 No Longer Active Ang Markham MD Active DIFLUCAN 150 MG TAB 1 qODay x 2 doses FLUCONAZOLE 83919177765 No Longer Active Da Romero APRN Active ACYCLOVIR 400 MG TABS 1 pill twice daily ACYCLOVIR 28974884479 No Longer Active Jillina Nick OSHEA Active AZITHROMYCIN 250 MG TABS 2 po qd x 1 day, then 1 po qd x 4 days AZITHROMYCIN 32531529978 No Longer Active Eri Borges MD PhD Active AZITHROMYCIN 250 MG TABS take 2 po day 1 then take1 po days 2-5 AZITHROMYCIN 61072714072 No Longer Active Octaviano CARBONE Active ACYCLOVIR 400 MG TABS 1 po qd ACYCLOVIR 71910301149 No Longer Active Ang Markham MD Active PROZAC 40 MG CAPS 1 cap by mouth at bedtime FLUOXETINE HCL 86148897661 No Longer Active Ang Markham MD Active HYDROXYZINE HCL 25 MG TABS 1 tab PO tid PRN itching HYDROXYZINE HCL 25 MG TABS 272062 HYDROXYZINE HCL Inactive [facility] MELATONIN 5 MG TABS 1-2 po qHS PRN Insomnia [facility] MELATONIN 5 MG TABS 611244 MELATONIN Inactive TRINESSA (28) 0.18/0.215/0.25 MG-35 MCG TABS 1 po qd as directed TRINESSA (28) 0.18/0.215/0.25 MG-35 MCG TABS 945442 NORGESTIM-ETH ESTRAD TRIPHASIC Inactive COLACE 100 MG CAP 1 tab PO BID COLACE 100 MG CAP 3455252 DOCUSATE SODIUM Inactive ANUSOL-HC 2.5 % CREAM apply as needed ANUSOL-HC 2.5 % CREAM 778154 HYDROCORTISONE (RECTAL) Inactive ZOLOFT 50 MG TAB 1 tablet by mouth daily ZOLOFT 50 MG TAB 448111 SERTRALINE HCL Inactive CEFTIN 500 MG TAB 1 tablet by mouth twice daily for 7 days 07/24 CEFTIN 500 MG TAB 210001 CEFUROXIME AXETIL Inactive NITROFURANTOIN MACROCRYSTAL 100 MG CAPS 1 capsule PO bid x 7 days NITROFURANTOIN MACROCRYSTAL 100 MG CAPS 6185073 NITROFURANTOIN MACROCRYSTAL Inactive IBUPROFEN 800 MG TABS 1 tab every 8 hours as needed for pain 2013 IBUPROFEN 800 MG TABS 927311 IBUPROFEN Inactive COLACE 100 MG CAP 1 po BID PRN Constipation COLACE 100 MG CAP 5425805 DOCUSATE SODIUM Inactive MELOXICAM 15 MG TABS 1 po qd PRN Knee Pain MELOXICAM 15 MG TABS 348565 MELOXICAM Inactive LEVEMIR FLEXPEN 100 UNIT/ML SOLN 40 units SC at bedtime LEVEMIR FLEXPEN 100 UNIT/ML SOLN INSULIN DETEMIR Inactive GENTAMICIN SULFATE 0.1 % EXT OINT Apply to open sores once a day. GENTAMICIN SULFATE 0.1 % EXT OINT 372725 GENTAMICIN SULFATE Inactive ACYCLOVIR 400 MG TABS 1 po qd ACYCLOVIR 400 MG TABS 19720928 ACYCLOVIR Inactive AZITHROMYCIN 250 MG TABS take 2 po day 1 then take1 po days 2-5 AZITHROMYCIN 250 MG TABS 5656414 AZITHROMYCIN Inactive AZITHROMYCIN 250 MG TABS 2 po qd x 1 day, then 1 po qd x 4 days AZITHROMYCIN 250 MG TABS 7586034 AZITHROMYCIN Inactive ACYCLOVIR 400 MG TABS 1 pill twice daily ACYCLOVIR 400 MG TABS 844820 ACYCLOVIR Inactive DIFLUCAN 150 MG TAB 1 qODay x 2 doses DIFLUCAN 150 MG TAB 912125 FLUCONAZOLE Inactive ACYCLOVIR 400 MG TABS ACYCLOVIR 400 MG TABS 756082 ACYCLOVIR Inactive DIFLUCAN 150 MG TAB 1 qODay x 2 doses DIFLUCAN 150 MG TAB 557499 FLUCONAZOLE Inactive BACTRIM DS 800-160 MG TAB 1 tab by mouth twice daily BACTRIM DS 800-160 MG TAB 656296 TRIMETHOPRIM-SULFAMETHOXAZOLE Inactive Advance Directives Directive Description Start Date PERMISSION TO SHARE Vital Signs Date Name Value Unit Range Description blood pressure, diastolic - 8462-4 75 mm[Hg] [...] 4.3-6.0 Encounters Code Encounter Date Provider Facility [id number]-[id number] Level 3 Est. 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 Patient 11:59:20 WASHING MACHINE OPERATOR Gloria Dunbar [facility] CPT-61595 Level 3 Est. Patient 17:32:37 WASHING MACHINE OPERATOR Gloria Dunbar [facility] CPT-83691 Level 4 Est. Patient 16:39:07 CDT Ang Markham MD [facility] CPT-70325 Level 3 Est. Patient 16:35:50 CDT Ang Markham MD [facility] CPT-38977 Level 4 Est. Patient 13:53:06 WASHING MACHINE OPERATOR Ang Markham MD [facility] CPT-96330 Level 3 Est. Patient 08:58:08 WASHING MACHINE OPERATOR Ang Markham MD [facility] CPT-21211 Level 3 Est. Patient 18:48:29 CDT Anthony Whitfield [facility] CPT-71446 Level 3 Est. Patient 12:16:59 CDT Gabriel Hunt DO [facility] CPT-03707 Level 3 Est. Patient 18:57:15 CDT Anthony Whitfield [facility] CPT-17968 Level 3 Est. Patient 13:59:22 WASHING MACHINE OPERATOR Ang Markham MD [facility] CPT-22661 Level 4 Est. Patient 10:36:08 WASHING MACHINE OPERATOR Ang Markham MD [facility] CPT-71638 Level 3 Est. Patient 16:27:02 CDT Eri Borges MD PhD [facility] CPT-22652 Level 3 Est. Patient 10:36:43 CDT Octaviano Dempsey [facility] CPT-03436 Level 4 New Patient 08:58:06 CDT Ang Markham MD [facility] Procedures Code Procedure Name Date Entry Date Standard Description CPT-64658 Venipuncture Draw Fee 12:25:15 CDT CPT-05278 Knee 3V 16:48:40 CDT CPT-OV Office Visit 16:27:13 CDT CPT-OV Office Visit 16:21:19 CDT CPT-56348 Sono pelvis non OB uterus ovaries cervix 09:37:28 CDT
--- OUTSIDE RECORDS SUMMARY | 2018-12-22 01:13 | XMS REPORT | Clinical Summary ---
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], not stated as uncontrolled MCC use 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 V58.67 Resolved Ang [...] Resolved Ang Markham MD Acute swimmers' ear MCC use 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 V58.67 Active Celestine PEARCE Long-term (current) use of insulin Low back pain, acute 724.2 Active Shreya Velazquez SALON/SPA MANAGER Lumbago Pharyngitis, acute / sore throat 462 Active Shreya Velazquez APRN Acute pharyngitis Cellulitis 682.9 Active Conner Hills MD Cellulitis and abscess of unspecified sites Diarrhea, chronic 787.91 Active Da Romero SALON/SPA MANAGER Diarrhea Diabetes mellitus ICD-250.00 Inactive Ang Markham MD AMENORRHEA ICD-626.0 Inactive Eri Borges MD PhD ABDOMINAL PAIN RIGHT LOWER QUADRANT ICD-789.03 Inactive Eri Borges MD PhD LOM ICD-382.9 Inactive Eri Borges MD PhD PSORIASIS ICD-696.1 Inactive Ang Markham MD SINUSITIS, ACUTE ICD-461.9 Inactive Ang Markham MD Constipation ICD-564.00 Nathan Markham MD Anal or rectal pain ICD-569.42 Nathan Markham MD CANDIDAL VAGINITIS ICD-112.1 Nathan Markham MD Joint crepitus, knee ICD-719.66 Nathan Markham MD Knee pain, bilateral ICD-719.46 Nathan Markham MD Cystitis, acute ICD-595.0 Nathan Markham MD UTI ICD-599.0 Nathan Markham MD Insomnia ICD-780.52 Nathan Markham MD Diabetes mellitus ICD-250.00 Nathan Markham MD Vaginal discharge ICD-623.5 Nathan Markham MD Amenorrhea ICD-626.0 Nathan Markham MD DEPRESSION ICD-311 Nathan Markham MD Diabetes mellitus, type I, with hypoglycemia ICD-250.81 Nathan Markham MD MCC use 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 ICD-V58.67 Nathan Markham MD Abdominal pain ICD-789.00 Nathan Markham MD Nausea ICD-787.02 Nathan Markham MD 06/26 Otitis externa, acute, left ICD-380.12 Nathan Markham MD Cellulitis, ankle, left ICD-682.6 Inactive Ang Markham MD Hematochezia ICD-578.1 Inactive Ang Markham MD Medication List Medication Instructions Start Date Stop Date Generic Name NDC Status Provider Patient Instruction COLACE 100 MG CAP 1 po daily DOCUSATE SODIUM 86429963420 No Longer Active Jillina Frazell SALON/SPA MANAGER Active CARAFATE 1 GM/10ML ORAL SUSP 5 mg four times daily SUCRALFATE 30896641547 Active Jillina Frazell SALON/SPA MANAGER Active ZANTAC 150 MG TAB 1 po BID RANITIDINE HCL 20995809687 No Longer Active Jillina Frazell SALON/SPA MANAGER Active HYDROXYZINE HCL 25 MG TAB 1 TID PRN nerves HYDROXYZINE HCL 75111596856 No Longer Active Jillina Frazell SALON/SPA MANAGER Active CLINDAMYCIN HCL 300 MG ORAL CAPS 1 four times a day CLINDAMYCIN HCL 23843506094 No Longer Active Jillina Frazell SALON/SPA MANAGER Active TYLENOL WITH CODEINE #3 300-30 MG TABS 1 every four hours as needed for pain ACETAMINOPHEN-CODEINE 45450550482 Active Conner Hills MD Active LEVAQUIN 500 MG TABS 1 daily for infection LEVOFLOXACIN 55842895807 No Longer Active Conner Hills MD Active DOXEPIN HCL 10 MG CAP 1 tablet nightly for the itch DOXEPIN HCL 30418106375 No Longer Active Conner Hills MD Active TRESIBA FLEXTOUCH 200 UNIT/ML SC SOPN Take 70 units daily at mid-night to 1 am. INSULIN DEGLUDEC 65858965118 No Longer Active Conner Hills MD Active METFORMIN HCL 1000 MG TABS 1 tablet by mouth twice daily METFORMIN HCL 25352185631 No Longer Active Conner Hills MD Active LIPITOR 40 MG TAB 1 po qHS ATORVASTATIN CALCIUM 53545522852 No Longer Active Conner Hills MD Active GEMFIBROZIL 600 MG TABS 1 po BID GEMFIBROZIL 38457861962 No Longer Active Conner Hills MD Active CORTISPORIN 3.5-60870-3 SOLN 4gtts in affected ear QID x 7 days [id number] 22508884477 No Longer Active Ang Markham MD Active LEVEMIR FLEXTOUCH 100 UNIT/ML SC SOPN 35 units SC at 12-1pm, 35 units 12-1am INSULIN DETEMIR 79992197469 No Longer Active Celestine PEARCE Active REGLAN 10 MG TAB 0.5 po TID 30min prior to meals METOCLOPRAMIDE HCL 54707691215 Active Ang Markham MD Active NOVOLOG FLEXPEN 100 UNIT/ML SOPN Take 20 units TID with meals, plus 2u/50 for blood sugars above 150. Ratio vs. Carbs INSULIN ASPART 49443846427 Active Gabriel Hunt DO Active BD PEN NEEDLE DINESH U/F 32G X 4 MM MISC 5 a day INSULIN PEN NEEDLE 32765541448 Active Malstepheneh Ziglari SURGICAL PHYSICIAN ASSISTANT Active EMBRACE BLOOD GLUCOSE TEST STRP Test blood sugars 4 times daily and PRN 08/05 GLUCOSE BLOOD 18922626253 No Longer Active Malstepheneh Rigoglari SURGICAL PHYSICIAN ASSISTANT Active TRUEPLUS LANCETS 30G MISC 4 a day LANCETS 01251694116 Active Maliheh Ziglari SURGICAL PHYSICIAN ASSISTANT Active TRUETEST TEST STRP check blood sugars 4x/day GLUCOSE BLOOD 06826105288 Active Maliheh Ziglari SURGICAL PHYSICIAN ASSISTANT Active TRUERESULT BLOOD GLUCOSE W/DEVICE KIT check blood sugars 4x a day BLOOD GLUCOSE MONITORING SUPPL 31875205825 Active Malstepheneh Ziglari SURGICAL PHYSICIAN ASSISTANT Active LISINOPRIL 5 MG TABS 1 po qd LISINOPRIL 69379548397 Active Ang Markham MD Active PAXIL 20 MG TAB 1 tablet by mouth daily PAROXETINE HCL 35414259044 Active Ang Markham MD Active GENTAMICIN SULFATE 0.1 % EXT OINT Apply to open sores once a day. GENTAMICIN SULFATE 00061482073 No Longer Active Ang Markham MD Active ZOLPIDEM TARTRATE 10 MG TABS 1 po qHS PRN Insomnia ZOLPIDEM TARTRATE 10584501126 Active Ang Markham MD Active BACTRIM DS 800-160 MG TAB 1 tab by mouth twice daily TRIMETHOPRIM-SULFAMETHOXAZOLE 66678125797 No Longer Active Gloria Yokum SALON/SPA MANAGER Active LEVEMIR FLEXPEN 100 UNIT/ML SOLN 40 units SC at bedtime INSULIN DETEMIR No Longer Active Susan Adan RMA Active INSUPEN ULTRAFIN 31G X 6 MM MISC Use with insulin qid. DX: E11.9 INSULIN PEN NEEDLE 26511150186 Active Ang Markham MD Active ZOLOFT 100 MG TAB 1 po qHS SERTRALINE HCL 65791670133 No Longer Active Ang Markham MD Active MELOXICAM 15 MG TABS 1 po qd PRN Knee Pain MELOXICAM 66637426569 No Longer Active Ang Markham MD Active CYCLOBENZAPRINE HCL 5 MG TABS 1 po qHS PRN Muscle pain CYCLOBENZAPRINE HCL 21399552602 Active Ang Markham MD Active COLACE 100 MG CAP 1 po BID PRN Constipation DOCUSATE SODIUM 93395473739 No Longer Active Ang Markham MD Active IBUPROFEN 800 MG TABS 1 tab every 8 hours as needed for pain 2013 IBUPROFEN 90197150734 No Longer Active Ang Markham MD Active NITROFURANTOIN MACROCRYSTAL 100 MG CAPS 1 capsule PO bid x 7 days NITROFURANTOIN MACROCRYSTAL 19249762523 No Longer Active Ang Markham MD Active DIFLUCAN 150 MG TAB 1 qODay x 2 doses FLUCONAZOLE 66942097716 No Longer Active Da Romero APRN Active CEFTIN 500 MG TAB 1 tablet by mouth twice daily for 7 days 07/24 CEFUROXIME AXETIL 83155048893 No Longer Active Anthony CARBONE Active ZOLOFT 50 MG TAB 1 tablet by mouth daily SERTRALINE HCL 17266122197 No Longer Active Anthony CARBONE Active ANUSOL-HC 2.5 % CREAM apply as needed HYDROCORTISONE (RECTAL) 89824402080 No Longer Active Anthony CARBONE Active COLACE 100 MG CAP 1 tab PO BID DOCUSATE SODIUM 60843595403 No Longer Active Anthony CARBONE Active TRINESSA (28) 0.18/0.215/0.25 MG-35 MCG TABS 1 po qd as directed NORGESTIM-ETH ESTRAD TRIPHASIC 41059108696 No Longer Active Anthony CARBONE Active [facility] MELATONIN 5 MG TABS 1-2 po qHS PRN Insomnia MELATONIN 15505461752 No Longer Active Anthony CARBONE Active ACYCLOVIR 400 MG TABS ACYCLOVIR 23980822132 No Longer Active Ang Markham MD Active HYDROXYZINE HCL 25 MG TABS 1 tab PO tid PRN itching HYDROXYZINE HCL 74299976850 No Longer Active Ang Markham MD Active DIFLUCAN 150 MG TAB 1 qODay x 2 doses FLUCONAZOLE 15154625997 No Longer Active Da Romero APRN Active ACYCLOVIR 400 MG TABS 1 pill twice daily ACYCLOVIR 85088770626 No Longer Active Josephllpiedad Romero APRN Active AZITHROMYCIN 250 MG TABS 2 po qd x 1 day, then 1 po qd x 4 days AZITHROMYCIN 19206170956 No Longer Active Eri Borges MD PhD Active AZITHROMYCIN 250 MG TABS take 2 po day 1 then take1 po days 2-5 AZITHROMYCIN 10334646491 No Longer Active Octaviano CARBONE Active ACYCLOVIR 400 MG TABS 1 po qd ACYCLOVIR 25681389627 No Longer Active Ang Markham MD Active PROZAC 40 MG CAPS 1 cap by mouth at bedtime FLUOXETINE HCL 95749159438 No Longer Active Ang Markham MD Active HYDROXYZINE HCL 25 MG TABS 1 tab PO tid PRN itching HYDROXYZINE HCL 25 MG TABS 316564 HYDROXYZINE HCL Inactive [facility] MELATONIN 5 MG TABS 1-2 po qHS PRN Insomnia [facility] MELATONIN 5 MG TABS 916335 MELATONIN Inactive TRINESSA (28) 0.18/0.215/0.25 MG-35 MCG TABS 1 po qd as directed TRINESSA (28) 0.18/0.215/0.25 MG-35 MCG TABS 602153 NORGESTIM-ETH ESTRAD TRIPHASIC Inactive COLACE 100 MG CAP 1 tab PO BID COLACE 100 MG CAP 1205471 DOCUSATE SODIUM Inactive ANUSOL-HC 2.5 % CREAM apply as needed ANUSOL-HC 2.5 % CREAM 224714 HYDROCORTISONE (RECTAL) Inactive ZOLOFT 50 MG TAB 1 tablet by mouth daily ZOLOFT 50 MG TAB 480883 SERTRALINE HCL Inactive CEFTIN 500 MG TAB 1 tablet by mouth twice daily for 7 days 07/24 CEFTIN 500 MG TAB 829484 CEFUROXIME AXETIL Inactive NITROFURANTOIN MACROCRYSTAL 100 MG CAPS 1 capsule PO bid x 7 days NITROFURANTOIN MACROCRYSTAL 100 MG CAPS 9391317 NITROFURANTOIN MACROCRYSTAL Inactive IBUPROFEN 800 MG TABS 1 tab every 8 hours as needed for pain 2013 IBUPROFEN 800 MG TABS 484014 IBUPROFEN Inactive COLACE 100 MG CAP 1 po BID PRN Constipation COLACE 100 MG CAP 1951153 DOCUSATE SODIUM Inactive MELOXICAM 15 MG TABS 1 po qd PRN Knee Pain MELOXICAM 15 MG TABS 102257 MELOXICAM Inactive LEVEMIR FLEXPEN 100 UNIT/ML SOLN 40 units SC at bedtime LEVEMIR FLEXPEN 100 UNIT/ML SOLN INSULIN DETEMIR Inactive GENTAMICIN SULFATE 0.1 % EXT OINT Apply to open sores once a day. GENTAMICIN SULFATE 0.1 % EXT OINT 739306 GENTAMICIN SULFATE Inactive EMBRACE BLOOD GLUCOSE TEST STRP Test blood sugars 4 times daily and PRN 08/05 EMBRACE BLOOD GLUCOSE TEST STRP GLUCOSE BLOOD Inactive LEVEMIR FLEXTOUCH 100 UNIT/ML SC SOPN 35 units SC at 12-1pm, 35 units 12-1am LEVEMIR FLEXTOUCH 100 UNIT/ML SC SOPN INSULIN DETEMIR Inactive CORTISPORIN 3.5-20907-4 SOLN 4gtts in affected ear QID x 7 days CORTISPORIN 3.5-20913-5 SOLN 425887 [id number] Inactive GEMFIBROZIL 600 MG TABS 1 po BID GEMFIBROZIL 600 MG TABS 503056 GEMFIBROZIL Inactive LIPITOR 40 MG TAB 1 po qHS LIPITOR 40 MG TAB 485992 ATORVASTATIN CALCIUM Inactive METFORMIN HCL 1000 MG TABS 1 tablet by mouth twice daily METFORMIN HCL 1000 MG TABS 826259 METFORMIN HCL Inactive TRESIBA FLEXTOUCH 200 UNIT/ML SC SOPN Take 70 units daily at mid-night to 1 am. TRESIBA FLEXTOUCH 200 UNIT/ML SC SOPN INSULIN DEGLUDEC Inactive DOXEPIN HCL 10 MG CAP 1 tablet nightly for the itch DOXEPIN HCL 10 MG CAP 0919994 DOXEPIN HCL Inactive LEVAQUIN 500 MG TABS 1 daily for infection LEVAQUIN 500 MG TABS 964794 LEVOFLOXACIN Inactive CLINDAMYCIN HCL 300 MG ORAL CAPS 1 four times a day CLINDAMYCIN HCL 300 MG ORAL CAPS 929140 CLINDAMYCIN HCL Inactive HYDROXYZINE HCL 25 MG TAB 1 TID PRN nerves HYDROXYZINE HCL 25 MG TAB 779528 HYDROXYZINE HCL Inactive ZANTAC 150 MG TAB 1 po BID ZANTAC 150 MG TAB 125357 RANITIDINE HCL Inactive COLACE 100 MG CAP 1 po daily COLACE 100 MG CAP 2461046 DOCUSATE SODIUM Inactive ACYCLOVIR 400 MG TABS 1 po qd ACYCLOVIR 400 MG TABS 19720928 ACYCLOVIR Inactive AZITHROMYCIN 250 MG TABS take 2 po day 1 then take1 po days 2-5 AZITHROMYCIN 250 MG TABS 8588040 AZITHROMYCIN Inactive AZITHROMYCIN 250 MG TABS 2 po qd x 1 day, then 1 po qd x 4 days AZITHROMYCIN 250 MG TABS 0072046 AZITHROMYCIN Inactive ACYCLOVIR 400 MG TABS 1 pill twice daily ACYCLOVIR 400 MG TABS 19720928 ACYCLOVIR Inactive DIFLUCAN 150 MG TAB 1 qODay x 2 doses DIFLUCAN 150 MG TAB 19760606 FLUCONAZOLE Inactive ACYCLOVIR 400 MG TABS ACYCLOVIR 400 MG TABS 19720928 ACYCLOVIR Inactive DIFLUCAN 150 MG TAB 1 qODay x 2 doses DIFLUCAN 150 MG TAB 915810 FLUCONAZOLE Inactive BACTRIM DS 800-160 MG TAB 1 tab by mouth twice daily BACTRIM DS 800-160 MG TAB 19821130 TRIMETHOPRIM-SULFAMETHOXAZOLE Inactive Advance Directives Directive Description Start Date PERMISSION TO SHARE Vital Signs Date Name Value Unit Range Description blood pressure, diastolic 71 mm[Hg] BP [place] blood pressure, systolic 99 mm[Hg] BP sys height E&M 63 [in_us] Bdy height temperature E&M 98.7 [degF] Body temperature weight E&M 109.5 [lb_av] Weight Measured blood pressure, diastolic 88 mm[Hg] BP [place] blood pressure, systolic 126 mm[Hg] BP sys pulse rate E&M 94 /min Heart rate temperature E&M 97.6 [degF] Body temperature weight E&M 110.5 [lb_av] Weight Measured blood pressure, diastolic 68 mm[Hg] BP [place] blood pressure, systolic 96 mm[Hg] BP sys pulse rate E&M 108 /min Heart rate temperature E&M 98.4 [degF] Body temperature weight E&M 106.5 [lb_av] Weight Measured blood pressure, diastolic 76 mm[Hg] BP [place] blood pressure, systolic 111 mm[Hg] BP sys pulse rate E&M 146 /min Heart rate temperature E&M 95.8 [degF] Body temperature blood pressure, diastolic 60 mm[Hg] BP [place] blood pressure, systolic 88 mm[Hg] BP sys pulse rate E&M 119 /min Heart rate temperature E&M 96.2 [degF] Body temperature weight E&M 116 [lb_av] Weight Measured Diagnostic Results Date Name Value Unit Range Description Lab Report: Comp. Metabolic Panel, Lipid Panel - Chemistry urea nitrogen, blood 3 mg/dL 7-18 creatinine, serum 0.78 mg/dL 0.55-1.30 alanine aminotransferase (SGPT), serum 11 U/L 12-78 aspartate aminotransferase (SGOT), serum 7 U/L 15-37 calcium, serum 8.8 mg/dL 8.5-10.1 bilirubin, serum, total 0.30 mg/dL 0.00-1.00 cholesterol, serum 221 mg/dL 694-196 8950/10/12 triglyceride, serum, fasting 590 mg/dL 30-200 HDL cholesterol, serum 45 mg/dL 32-96 LDL cholesterol, serum 58 mg/dL 0-130 blood glucose 547 mg/dL 65-110 chloride, serum 91 mmol/L 98-107 potassium, serum 3.9 mmol/L 3.5-5.2 carbon dioxide, venous blood 28.1 mmol/L 21.0-32.0 sodium, serum 130 mmol/L 136-145 Encounters Code Encounter Date Provider Facility CPT-87030 Level 3 Est. Patient 14:52:33 CDT Da Romero [facility] CPT-50546 Level 3 Est. Patient 10:22:30 CDT Conner Hills MD [facility] CPT-14858 Level 3 Est. Patient 15:02:19 CDT Shreya Velazquez [facility] CPT-47550 Level 3 Est. Patient 13:22:25 CDT Gabriel Hunt [facility] CPT-43233 Level 4 Est. Patient 16:02:22 CDT Ang Markham MD [facility] CPT-20446 Level 3 Est. Patient 16:21:23 CDT Celestine Huerta [facility] CPT-33588 Level 3 Est. Patient 17:02:56 CDT Gabriel Hunt [facility] CPT-11004 Level 3 Est. Patient 14:46:22 CDT Da Romero [facility] CPT-48912 Level 4 Est. Patient 13:55:20 CDT Ang Markham MD [facility] CPT-20299 Level 4 Est. Patient 16:10:09 CDT Celestine Huerta [facility] CPT-95472 Level 3 Est. Patient 13:51:24 CDT Ang Markham MD [facility] CPT-78098 Level 3 Est. Patient 18:42:15 CDT Gabriel Hunt [facility] CPT-60609 Level 5 Est. Patient 14:40:14 CDT Celestine Huerta RAMSES [facility] CPT-06817 Level 4 Est. Patient 14:36:17 CDT Ang Markham MD [facility] CPT-24665 Level 3 Est. Patient 11:13:47 CAKE DECORATOR Ang Markham MD [facility] CPT-07952 Level 3 Est. Patient 11:59:20 CAKE DECORATOR Gloria Dunbar [facility] CPT-61627 Level 3 Est. Patient 17:32:37 CAKE DECORATOR Gloria Dunbar [facility] CPT-97103 Level 4 Est. Patient 16:39:07 CDT Ang Markham MD [facility] CPT-57932 Level 3 Est. Patient 16:35:50 CDT Ang Markham MD [facility] CPT-57047 Level 4 Est. Patient 13:53:06 CAKE DECORATOR Ang Markham MD [facility] CPT-06311 Level 3 Est. Patient 08:58:08 CAKE DECORATOR Ang Markham MD [facility] CPT-33709 Level 3 Est. Patient 18:48:29 CDT Anthony Whitfield [facility] CPT-95931 Level 3 Est. Patient 12:16:59 CDT Gabriel Hunt DO [facility] CPT-63025 Level 3 Est. Patient 18:57:15 CDT Anthony Whitfield [facility] CPT-13533 Level 3 Est. Patient 13:59:22 CAKE DECORATOR Ang Markham MD [facility] CPT-10166 Level 4 Est. Patient 10:36:08 CAKE DECORATOR Ang Markham MD [facility] CPT-74319 Level 3 Est. Patient 16:27:02 CDT Eri Borges MD PhD [facility] CPT-92814 Level 3 Est. Patient 10:36:43 CDT Octaviano CARBONE [facility] CPT-40983 Level 4 New Patient 08:58:06 CDT Ang Markham MD [facility] Procedures Code Procedure Name Date Entry Date Standard Description CPT-80411 LS spine comp w obliques - XRAY USE ONLY 15:34:48 CDT CPT-23623 Lipid - LAB USE ONLY 15:28:39 CDT CPT-91370 CMP - LAB USE ONLY 15:28:39 CDT CPT-29606 Venipuncture Draw Fee 15:28:39 CDT CPT-45127 Abd compl w upright - XRAY USE ONLY 14:09:39 CDT 02/28 CPT-82041 Venipuncture Draw Fee 12:25:15 CDT CPT-34625 Knee 3V 16:48:40 CDT CPT-OV Office Visit 16:27:13 CDT CPT-OV Office Visit 16:21:19 CDT CPT-70554 Sono pelvis non OB uterus ovaries cervix 09:37:28 CDT
--- OUTSIDE RECORDS SUMMARY | 2018-12-22 01:14 | XMS REPORT | Clinical Summary ---
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], not stated as uncontrolled longterm use 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 V58.67 Resolved Ang [...] Resolved Ang Markham MD Acute swimmers' ear middle or intermediate [employer] principal use 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 V58.67 Active Celestine [...] I, with hypoglycemia ICD-250.81 Nathan Markham MD longterm use 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 ICD-V58.67 Nathan Markham [...] four hours as needed for pain ACETAMINOPHEN-CODEINE 38060541241 Active Conner Hills MD Active CLINDAMYCIN HCL 300 MG ORAL CAPS 1 four times a day CLINDAMYCIN HCL 83194366920 Active Conner Hills MD Active LEVAQUIN 500 MG TABS 1 daily for infection LEVOFLOXACIN 24740560703 No Longer Active Conner Hills MD Active DOXEPIN HCL 10 MG CAP 1 tablet nightly for the itch DOXEPIN HCL 66195379184 No Longer Active Conner Hills MD Active TRESIBA FLEXTOUCH 200 UNIT/ML SC SOPN Take 70 units daily at mid-night to 1 am. INSULIN DEGLUDEC 69858565868 No Longer Active Conner Hills MD Active METFORMIN HCL 1000 MG TABS 1 tablet by mouth twice daily METFORMIN HCL 22785092614 No Longer Active Conner Hills MD Active LIPITOR 40 MG TAB 1 po qHS ATORVASTATIN CALCIUM 92488102014 No Longer Active Conner Hills MD Active GEMFIBROZIL 600 MG TABS 1 po BID GEMFIBROZIL 93483583193 No Longer Active Conner Hills MD Active CORTISPORIN 3.5-83424-9 SOLN 4gtts in affected ear QID x 7 days [id number] 95263733406 No Longer Active Ang Markham MD Active LEVEMIR FLEXTOUCH 100 UNIT/ML SC SOPN 35 units SC at 12-1pm, 35 units 12-1am INSULIN DETEMIR 91197693759 No Longer Active Celestine MENDEZP Active REGLAN 10 MG TAB 0.5 po TID 30min prior to meals METOCLOPRAMIDE HCL 97168403852 Active Ang Markham MD Active ZANTAC 150 MG TAB 1 po BID RANITIDINE HCL 10770637154 Active Ang Markham MD Active COLACE 100 MG CAP 1 po daily DOCUSATE SODIUM 48872490429 Active Gabriel Hunt DO Active NOVOLOG FLEXPEN 100 UNIT/ML SOPN Take 20 units TID with meals, plus 2u/50 for blood sugars above 150. Ratio vs. Carbs INSULIN ASPART 75466832792 Active Gabriel Hunt DO Active BD PEN NEEDLE DINESH U/F 32G X 4 MM MISC 5 a day INSULIN PEN NEEDLE 61642346444 Active Malwalter Ziglari CONTRACT LAW SPECIALIST Active EMBRACE BLOOD GLUCOSE TEST STRP Test blood sugars 4 times daily and PRN 08/05 GLUCOSE BLOOD 19094347646 No Longer Active Malstepheneh Ziglari CONTRACT LAW SPECIALIST Active TRUEPLUS LANCETS 30G MISC 4 a day LANCETS 76785384329 Active Maliheh Ziglari CONTRACT LAW SPECIALIST Active TRUETEST TEST STRP check blood sugars 4x/day GLUCOSE BLOOD 01624760961 Active Maliheh Ziglari CONTRACT LAW SPECIALIST Active TRUERESULT BLOOD GLUCOSE W/DEVICE KIT check blood sugars 4x a day BLOOD GLUCOSE MONITORING SUPPL 90178388758 Active Malstepheneh Ziglari CONTRACT LAW SPECIALIST Active LISINOPRIL 5 MG TABS 1 po qd LISINOPRIL 37630508268 Active Ang Markham MD Active PAXIL 20 MG TAB 1 tablet by mouth daily PAROXETINE HCL 44999681605 Active Ang Markham MD Active GENTAMICIN SULFATE 0.1 % EXT OINT Apply to open sores once a day. GENTAMICIN SULFATE 49162923563 No Longer Active Ang Markham MD Active ZOLPIDEM TARTRATE 10 MG TABS 1 po qHS PRN Insomnia ZOLPIDEM TARTRATE 37833683078 Active Ang Markham MD Active BACTRIM DS 800-160 MG TAB 1 tab by mouth twice daily TRIMETHOPRIM-SULFAMETHOXAZOLE 22466421767 No Longer Active Gloria Dunbar DIESEL PILE DRIVER OPERATOR Active LEVEMIR FLEXPEN 100 UNIT/ML SOLN 40 units SC at bedtime INSULIN DETEMIR No Longer Active Susan Arellano RMA Active INSUPEN ULTRAFIN 31G X 6 MM MISC Use with insulin qid. DX: E11.9 INSULIN PEN NEEDLE 86989132760 Active Ang Markham MD Active ZOLOFT 100 MG TAB 1 po qHS SERTRALINE HCL 38464958826 No Longer Active Ang Markham MD Active MELOXICAM 15 MG TABS 1 po qd PRN Knee Pain MELOXICAM 05594136504 No Longer Active Ang Markham MD Active CYCLOBENZAPRINE HCL 5 MG TABS 1 po qHS PRN Muscle pain CYCLOBENZAPRINE HCL 83959905386 Active Ang Markham MD Active COLACE 100 MG CAP 1 po BID PRN Constipation DOCUSATE SODIUM 70111881603 No Longer Active Ang Markham MD Active HYDROXYZINE HCL 25 MG TAB 1 TID PRN nerves HYDROXYZINE HCL 75358194699 Active Ang Markham MD Active IBUPROFEN 800 MG TABS 1 tab every 8 hours as needed for pain 2013 IBUPROFEN 91095482838 No Longer Active Ang Markham MD Active NITROFURANTOIN MACROCRYSTAL 100 MG CAPS 1 capsule PO bid x 7 days NITROFURANTOIN MACROCRYSTAL 21297361197 No Longer Active Ang Markham MD Active DIFLUCAN 150 MG TAB 1 qODay x 2 doses FLUCONAZOLE 06898013566 No Longer Active Da Romero APRN Active CEFTIN 500 MG TAB 1 tablet by mouth twice daily for 7 days 07/24 CEFUROXIME AXETIL 33301723905 No Longer Active Anthony CARBONE Active ZOLOFT 50 MG TAB 1 tablet by mouth daily SERTRALINE HCL 11712247961 No Longer Active Anthony CARBONE Active ANUSOL-HC 2.5 % CREAM apply as needed HYDROCORTISONE (RECTAL) 42741143697 No Longer Active Anthony CARBONE Active COLACE 100 MG CAP 1 tab PO BID DOCUSATE SODIUM 29214416972 No Longer Active Anthony CARBONE Active TRINESSA (28) 0.18/0.215/0.25 MG-35 MCG TABS 1 po qd as directed NORGESTIM-ETH ESTRAD TRIPHASIC 15420292409 No Longer Active Anthony CARBONE Active [facility] MELATONIN 5 MG TABS 1-2 po qHS PRN Insomnia MELATONIN 53280857991 No Longer Active Anthony CARBONE Active ACYCLOVIR 400 MG TABS ACYCLOVIR 92542397459 No Longer Active Ang Markham MD Active HYDROXYZINE HCL 25 MG TABS 1 tab PO tid PRN itching HYDROXYZINE HCL 84069343078 No Longer Active Ang Markham MD Active DIFLUCAN 150 MG TAB 1 qODay x 2 doses FLUCONAZOLE 55860774520 No Longer Active Da Romero APRN Active ACYCLOVIR 400 MG TABS 1 pill twice daily ACYCLOVIR 07880211284 No Longer Active Jillina Nick OSHEA Active AZITHROMYCIN 250 MG TABS 2 po qd x 1 day, then 1 po qd x 4 days AZITHROMYCIN 71932575274 No Longer Active Eri Borges MD PhD Active AZITHROMYCIN 250 MG TABS take 2 po day 1 then take1 po days 2-5 AZITHROMYCIN 60844299693 No Longer Active Octaviano CARBONE Active ACYCLOVIR 400 MG TABS 1 po qd ACYCLOVIR 49974874484 No Longer Active Ang Markham MD Active PROZAC 40 MG CAPS 1 cap by mouth at bedtime FLUOXETINE HCL 68583535304 No Longer Active Ang Markham MD Active HYDROXYZINE HCL 25 MG TABS 1 tab PO tid PRN itching HYDROXYZINE HCL 25 MG TABS 742331 HYDROXYZINE HCL Inactive [facility] MELATONIN 5 MG TABS 1-2 po qHS PRN Insomnia [facility] MELATONIN 5 MG TABS 961390 MELATONIN Inactive TRINESSA (28) 0.18/0.215/0.25 MG-35 MCG TABS 1 po qd as directed TRINESSA (28) 0.18/0.215/0.25 MG-35 MCG TABS 431682 NORGESTIM-ETH ESTRAD TRIPHASIC Inactive COLACE 100 MG CAP 1 tab PO BID COLACE 100 MG CAP 6751727 DOCUSATE SODIUM Inactive ANUSOL-HC 2.5 % CREAM apply as needed ANUSOL-HC 2.5 % CREAM 149861 HYDROCORTISONE (RECTAL) Inactive ZOLOFT 50 MG TAB 1 tablet by mouth daily ZOLOFT 50 MG TAB 712128 SERTRALINE HCL Inactive CEFTIN 500 MG TAB 1 tablet by mouth twice daily for 7 days 07/24 CEFTIN 500 MG TAB 774089 CEFUROXIME AXETIL Inactive NITROFURANTOIN MACROCRYSTAL 100 MG CAPS 1 capsule PO bid x 7 days NITROFURANTOIN MACROCRYSTAL 100 MG CAPS 8676411 NITROFURANTOIN MACROCRYSTAL Inactive IBUPROFEN 800 MG TABS 1 tab every 8 hours as needed for pain 2013 IBUPROFEN 800 MG TABS 946881 IBUPROFEN Inactive COLACE 100 MG CAP 1 po BID PRN Constipation COLACE 100 MG CAP 5929293 DOCUSATE SODIUM Inactive MELOXICAM 15 MG TABS 1 po qd PRN Knee Pain MELOXICAM 15 MG TABS 184456 MELOXICAM Inactive LEVEMIR FLEXPEN 100 UNIT/ML SOLN 40 units SC at bedtime LEVEMIR FLEXPEN 100 UNIT/ML SOLN INSULIN DETEMIR Inactive GENTAMICIN SULFATE 0.1 % EXT OINT Apply to open sores once a day. GENTAMICIN SULFATE 0.1 % EXT OINT 992046 GENTAMICIN SULFATE Inactive EMBRACE BLOOD GLUCOSE TEST STRP Test blood sugars 4 times daily and PRN 08/05 EMBRACE BLOOD GLUCOSE TEST STRP GLUCOSE BLOOD Inactive LEVEMIR FLEXTOUCH 100 UNIT/ML SC SOPN 35 units SC at 12-1pm, 35 units 12-1am LEVEMIR FLEXTOUCH 100 UNIT/ML SC SOPN INSULIN DETEMIR Inactive CORTISPORIN 3.5-99015-4 SOLN 4gtts in affected ear QID x 7 days CORTISPORIN 3.5-30120-3 SOLN 124447 SFTOUVMN-CBEAZKPFL-UB Inactive GEMFIBROZIL 600 MG TABS 1 po BID GEMFIBROZIL 600 MG TABS 247825 GEMFIBROZIL Inactive LIPITOR 40 MG TAB 1 po qHS LIPITOR 40 MG TAB 210066 ATORVASTATIN CALCIUM Inactive METFORMIN HCL 1000 MG TABS 1 tablet by mouth twice daily METFORMIN HCL 1000 MG TABS 556857 METFORMIN HCL Inactive TRESIBA FLEXTOUCH 200 UNIT/ML SC SOPN Take 70 units daily at mid-night to 1 am. TRESIBA FLEXTOUCH 200 UNIT/ML SC SOPN INSULIN DEGLUDEC Inactive DOXEPIN HCL 10 MG CAP 1 tablet nightly for the itch DOXEPIN HCL 10 MG CAP 1466558 DOXEPIN HCL Inactive LEVAQUIN 500 MG TABS 1 daily for infection LEVAQUIN 500 MG TABS 081836 LEVOFLOXACIN Inactive ACYCLOVIR 400 MG TABS 1 po qd ACYCLOVIR 400 MG TABS 447481 ACYCLOVIR Inactive AZITHROMYCIN 250 MG TABS take 2 po day 1 then take1 po days 2-5 AZITHROMYCIN 250 MG TABS 9276390 AZITHROMYCIN Inactive AZITHROMYCIN 250 MG TABS 2 po qd x 1 day, then 1 po qd x 4 days AZITHROMYCIN 250 MG TABS 9245877 AZITHROMYCIN Inactive ACYCLOVIR 400 MG TABS 1 pill twice daily ACYCLOVIR 400 MG TABS 19720928 ACYCLOVIR Inactive DIFLUCAN 150 MG TAB 1 qODay x 2 doses DIFLUCAN 150 MG TAB 443918 FLUCONAZOLE Inactive ACYCLOVIR 400 MG TABS ACYCLOVIR 400 MG TABS 19720928 ACYCLOVIR Inactive DIFLUCAN 150 MG TAB 1 qODay x 2 doses DIFLUCAN 150 MG TAB 19760606 FLUCONAZOLE Inactive BACTRIM DS 800-160 MG TAB 1 tab by mouth twice daily BACTRIM DS 800-160 MG TAB 725515 TRIMETHOPRIM-SULFAMETHOXAZOLE Inactive Advance Directives Directive Description Start [...] Panel - Chemistry sodium, serum 130 mmol/L 852-656 7458/10/12 carbon dioxide, venous blood 28.1 mmol/L 21.0-32.0 potassium, serum 3.9 mmol/L 3.5-5.2 chloride, serum 91 mmol/L 98-107 blood glucose 547 mg/dL 65-110 urea nitrogen, blood 3 mg/dL 7-18 creatinine, serum 0.78 mg/dL 0.55-1.30 alanine aminotransferase (SGPT), serum 11 U/L 12-78 aspartate aminotransferase (SGOT), serum 7 U/L 15-37 calcium, serum 8.8 mg/dL 8.5-10.1 bilirubin, serum, total 0.30 mg/dL 0.00-1.00 cholesterol, serum 221 mg/dL 531-334 2355/10/12 triglyceride, serum, fasting 590 mg/dL 30-200 HDL cholesterol, serum 45 mg/dL 32-96 LDL cholesterol, serum 58 mg/dL 0-130 Lab Report: HGBA1C - Chemistry hemoglobin A1C, blood, as % of total hemoglobin 11.4 % 4.3-6.0 Lab Report: UADIP W/MICRO, AUTO, CBC W/DIFF, Comp. Metabolic Panel - Chemistry RBC, urine, dipstick Negative Negative sodium, serum 133 mmol/L 226-231 1898/06/03 carbon dioxide, venous blood 33.4 mmol/L 21.0-32.0 [...] nitrite, urine, semiquantitative Negative Negative [place] Report[place] [facility] [place] human chorionic gonadotropin, urine, qualitative [...] mg/dL Encounters Code Encounter Date Provider Facility CPT-30661 Level 3 Est. Patient 10:22:30 CDT Conner Hills MD [facility] CPT-65665 Level 3 Est. Patient 15:02:19 CDT Shreya Velazquez [facility] CPT-58596 Level 3 Est. Patient 13:22:25 CDT Gabriel Hunt [facility] CPT-93268 Level 4 Est. Patient 16:02:22 CDT Ang Markham MD [facility] CPT-75297 Level 3 Est. Patient 16:21:23 [facility] Level 3 Est. Patient 17:02:56 CDT Gabriel Hunt [facility] CPT-26387 Level 3 Est. Patient 14:46:22 CDT Da Romero [facility] CPT-66820 Level 4 Est. Patient 13:55:20 CDT Ang Markham MD [facility] CPT-61875 Level 4 Est. Patient 16:10:09 CDT Celestine Huerta [facility] CPT-10449 Level 3 Est. Patient 13:51:24 CDT Ang Markham MD [facility] CPT-33243 Level 3 Est. Patient 18:42:15 CDT Gabriel Hunt [facility] CPT-35305 Level 5 Est. Patient 14:40:14 CDT [facility] CPT-71649 Level 4 Est. Patient 14:36:17 CDT Ang Markham MD [facility] CPT-61162 Level 3 Est. Patient 11:13:47 COAT CHECK ATTENDANT Ang Markham MD [facility] CPT-58394 Level 3 Est. Patient 11:59:20 COAT CHECK ATTENDANT Gloria Dunbar [facility] CPT-97376 Level 3 Est. Patient 17:32:37 COAT CHECK ATTENDANT Gloria Dunbar [facility] CPT-93015 Level 4 Est. Patient 16:39:07 CDT Ang Markham MD [facility] CPT-15858 Level 3 Est. Patient 16:35:50 CDT Ang Markham MD [facility] CPT-03132 Level 4 Est. Patient 13:53:06 COAT CHECK ATTENDANT Ang Markham MD [facility] CPT-80980 Level 3 Est. Patient 08:58:08 COAT CHECK ATTENDANT Ang Markham MD [facility] CPT-78604 Level 3 Est. Patient 18:48:29 CDT Anthony Whitfield [facility] CPT-92465 Level 3 Est. Patient 12:16:59 CDT Gabriel Hunt DO [facility] CPT-42149 Level 3 Est. Patient 18:57:15 CDT Anthony Whitfield [facility] CPT-50112 Level 3 Est. Patient 13:59:22 COAT CHECK ATTENDANT Ang Markham MD [facility] CPT-00651 Level 4 Est. Patient 10:36:08 COAT CHECK ATTENDANT Ang Markham MD [facility] CPT-83858 Level 3 Est. Patient 16:27:02 CDT Eri Borges MD PhD [facility] CPT-25632 Level 3 Est. Patient 10:36:43 CDT Octaviano Dempsey [facility] CPT-57809 Level 4 New Patient 08:58:06 CDT Ang Markham MD [facility] Procedures Code Procedure Name Date Entry Date Standard Description CPT-36653 LS spine comp w obliques - XRAY USE ONLY 15:34:48 CDT CPT-97934 Lipid - LAB USE ONLY 15:28:39 CDT CPT-07073 CMP - LAB USE ONLY 15:28:39 CDT CPT-07284 Venipuncture Draw Fee 15:28:39 CDT CPT-03181 Abd compl w upright - XRAY USE ONLY 14:09:39 CDT 02/28 CPT-98642 Venipuncture Draw Fee 12:25:15 CDT CPT-85831 Knee 3V 16:48:40 CDT CPT-OV Office Visit 16:27:13 CDT CPT-OV Office Visit 16:21:19 CDT CPT-51431 Sono pelvis non OB uterus ovaries cervix 09:37:28 CDT
--- OUTSIDE RECORDS SUMMARY | 2018-12-22 01:15 | XMS REPORT | Clinical Summary ---
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 V58.67 Active Celestine PAERCE Long-term (current) use of insulin Low back pain, acute 724.2 Active Shreya Velazquez CFO Lumbago Pharyngitis, acute / sore throat 462 Active Shreya Velazquez APRN Acute pharyngitis Cellulitis 682.9 Active Conner Hills MD Cellulitis and abscess of unspecified sites Diarrhea, chronic 787.91 Active Da Romero APRN Diarrhea DEPRESSION ICD-311 Inactive Ang Markham MD Diabetes mellitus ICD-250.00 Inactive Ang Markham MD AMENORRHEA ICD-626.0 Inactive Eri Borges MD PhD ABDOMINAL PAIN RIGHT LOWER QUADRANT ICD-789.03 Inactive Eri Borges MD PhD LOM ICD-382.9 Inactive Eri Borges MD PhD PSORIASIS ICD-696.1 Inactive Ang Markham MD SINUSITIS, ACUTE ICD-461.9 Nathan Markham MD Constipation ICD-564.00 Nathan Markham MD Anal or rectal pain ICD-569.42 Inactive Ang Markham MD CANDIDAL VAGINITIS ICD-112.1 Nathan Markham MD Joint crepitus, knee ICD-719.66 Inactive Ang Markham MD Knee pain, bilateral ICD-719.46 Nathan Markham MD Cystitis, acute ICD-595.0 Nathan Markham MD UTI ICD-599.0 Nathan Markham MD Insomnia ICD-780.52 Nathan Markham MD Diabetes mellitus ICD-250.00 Nathan Markham MD Vaginal discharge ICD-623.5 Nathan Markham MD Amenorrhea ICD-626.0 Nathan Markham MD Cellulitis, ankle, left ICD-682.6 Nathan Markham MD Diabetes mellitus, type I, with hypoglycemia ICD-250.81 Nathan Markham MD terminal operations manager use 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 ICD-V58.67 Nathan Markham MD Abdominal pain ICD-789.00 Nathan Markham MD Hematochezia ICD-578.1 Nathan Markham MD Nausea ICD-787.02 Inactive Ang Markham MD 06/26 Otitis externa, acute, left ICD-380.12 Inactive Ang Markham MD Medication List Medication Instructions Start Date Stop Date Generic Name NDC Status Provider Patient Instruction COLACE 100 MG CAP 1 po daily DOCUSATE SODIUM 48194450586 No Longer Active Jillina Frazell CFO Active CARAFATE 1 GM/10ML ORAL SUSP 5 mg four times daily SUCRALFATE 39111782178 Active Jillina Frazell CFO Active ZANTAC 150 MG TAB 1 po BID RANITIDINE HCL 79226944872 No Longer Active Jillina Frazell CFO Active HYDROXYZINE HCL 25 MG TAB 1 TID PRN nerves HYDROXYZINE HCL 66472690852 No Longer Active Jillina Frazell CFO Active CLINDAMYCIN HCL 300 MG ORAL CAPS 1 four times a day CLINDAMYCIN HCL 78119811541 No Longer Active Jillina Frazell CFO Active TYLENOL WITH CODEINE #3 300-30 MG TABS 1 every four hours as needed for pain ACETAMINOPHEN-CODEINE 38750660936 Active Conner Hills MD Active LEVAQUIN 500 MG TABS 1 daily for infection LEVOFLOXACIN 42589810399 No Longer Active Conner Hills MD Active DOXEPIN HCL 10 MG CAP 1 tablet nightly for the itch DOXEPIN HCL 68816494612 No Longer Active Conner Hills MD Active TRESIBA FLEXTOUCH 200 UNIT/ML SC SOPN Take 70 units daily at mid-night to 1 am. INSULIN DEGLUDEC 63142743039 No Longer Active Conner Hills MD Active METFORMIN HCL 1000 MG TABS 1 tablet by mouth twice daily METFORMIN HCL 41550946244 No Longer Active Conner Hills MD Active LIPITOR 40 MG TAB 1 po qHS ATORVASTATIN CALCIUM 25371376574 No Longer Active Conner Hills MD Active GEMFIBROZIL 600 MG TABS 1 po BID GEMFIBROZIL 28876180503 No Longer Active Conner Hills MD Active CORTISPORIN 3.5-02116-8 SOLN 4gtts in affected ear QID x 7 days [id number] 84921513285 No Longer Active Ang Markham MD Active LEVEMIR FLEXTOUCH 100 UNIT/ML SC SOPN 35 units SC at 12-1pm, 35 units 12-1am INSULIN DETEMIR 00997150556 No Longer Active Celestine PEARCE Active REGLAN 10 MG TAB 0.5 po TID 30min prior to meals METOCLOPRAMIDE HCL 45438012222 Active Ang Markham MD Active NOVOLOG FLEXPEN 100 UNIT/ML SOPN Take 20 units TID with meals, plus 2u/50 for blood sugars above 150. Ratio vs. Carbs INSULIN ASPART 14690048456 Active Gabriel Hunt DO Active BD PEN NEEDLE DINESH U/F 32G X 4 MM MISC 5 a day INSULIN PEN NEEDLE 10139962432 Active Malstepheneh Ziglari TEST ENGINEERING MANAGER Active EMBRACE BLOOD GLUCOSE TEST STRP Test blood sugars 4 times daily and PRN 08/05 GLUCOSE BLOOD 41437928993 No Longer Active Maliheh Ziglari TEST ENGINEERING MANAGER Active TRUEPLUS LANCETS 30G MISC 4 a day LANCETS 05544720020 Active Maliheh Ziglari TEST ENGINEERING MANAGER Active TRUETEST TEST STRP check blood sugars 4x/day GLUCOSE BLOOD 04447723559 Active Maliheh Ziglari TEST ENGINEERING MANAGER Active TRUERESULT BLOOD GLUCOSE W/DEVICE KIT check blood sugars 4x a day BLOOD GLUCOSE MONITORING SUPPL 92516920772 Active Malstepheneh Ziglari TEST ENGINEERING MANAGER Active LISINOPRIL 5 MG TABS 1 po qd LISINOPRIL 66685813987 Active Ang Markham MD Active PAXIL 20 MG TAB 1 tablet by mouth daily PAROXETINE HCL 49646339986 Active Ang Markham MD Active GENTAMICIN SULFATE 0.1 % EXT OINT Apply to open sores once a day. GENTAMICIN SULFATE 32982844464 No Longer Active Ang Markham MD Active ZOLPIDEM TARTRATE 10 MG TABS 1 po qHS PRN Insomnia ZOLPIDEM TARTRATE 82579279723 Active Ang Markham MD Active BACTRIM DS 800-160 MG TAB 1 tab by mouth twice daily TRIMETHOPRIM-SULFAMETHOXAZOLE 34317245491 No Longer Active Gloria Yokum CFO Active LEVEMIR FLEXPEN 100 UNIT/ML SOLN 40 units SC at bedtime INSULIN DETEMIR No Longer Active Susan Adan RMA Active INSUPEN ULTRAFIN 31G X 6 MM MISC Use with insulin qid. DX: E11.9 INSULIN PEN NEEDLE 49633905674 Active Ang Markham MD Active ZOLOFT 100 MG TAB 1 po qHS SERTRALINE HCL 84335492182 No Longer Active Ang Markham MD Active MELOXICAM 15 MG TABS 1 po qd PRN Knee Pain MELOXICAM 99051064638 No Longer Active Ang Markham MD Active CYCLOBENZAPRINE HCL 5 MG TABS 1 po qHS PRN Muscle pain CYCLOBENZAPRINE HCL 50543805307 Active Ang Markham MD Active COLACE 100 MG CAP 1 po BID PRN Constipation DOCUSATE SODIUM 64472859282 No Longer Active Ang Markham MD Active IBUPROFEN 800 MG TABS 1 tab every 8 hours as needed for pain 2013 IBUPROFEN 23915269799 No Longer Active Ang Markham MD Active NITROFURANTOIN MACROCRYSTAL 100 MG CAPS 1 capsule PO bid x 7 days NITROFURANTOIN MACROCRYSTAL 04955252681 No Longer Active Ang Markham MD Active DIFLUCAN 150 MG TAB 1 qODay x 2 doses FLUCONAZOLE 58167887560 No Longer Active Da Romero APRN Active CEFTIN 500 MG TAB 1 tablet by mouth twice daily for 7 days 07/24 CEFUROXIME AXETIL 82938752750 No Longer Active Anthony CARBONE Active ZOLOFT 50 MG TAB 1 tablet by mouth daily SERTRALINE HCL 68991437395 No Longer Active Anthony CARBONE Active ANUSOL-HC 2.5 % CREAM apply as needed HYDROCORTISONE (RECTAL) 40190551338 No Longer Active Anthony CARBONE Active COLACE 100 MG CAP 1 tab PO BID DOCUSATE SODIUM 62897324240 No Longer Active Anthony CARBONE Active TRINESSA (28) 0.18/0.215/0.25 MG-35 MCG TABS 1 po qd as directed NORGESTIM-ETH ESTRAD TRIPHASIC 16864875795 No Longer Active Anthony CARBONE Active [facility] MELATONIN 5 MG TABS 1-2 po qHS PRN Insomnia MELATONIN 91182326175 No Longer Active Anthony CARBONE Active ACYCLOVIR 400 MG TABS ACYCLOVIR 13908141965 No Longer Active Ang Markham MD Active HYDROXYZINE HCL 25 MG TABS 1 tab PO tid PRN itching HYDROXYZINE HCL 00483909950 No Longer Active Ang Markham MD Active DIFLUCAN 150 MG TAB 1 qODay x 2 doses FLUCONAZOLE 33638018987 No Longer Active Da Romero APRN Active ACYCLOVIR 400 MG TABS 1 pill twice daily ACYCLOVIR 30577827330 No Longer Active Da Romero APRN Active AZITHROMYCIN 250 MG TABS 2 po qd x 1 day, then 1 po qd x 4 days AZITHROMYCIN 34126167850 No Longer Active Eri Borges MD PhD Active AZITHROMYCIN 250 MG TABS take 2 po day 1 then take1 po days 2-5 AZITHROMYCIN 04681752285 No Longer Active Octaviano CARBONE Active ACYCLOVIR 400 MG TABS 1 po qd ACYCLOVIR 44481870917 No Longer Active Ang Markham MD Active PROZAC 40 MG CAPS 1 cap by mouth at bedtime FLUOXETINE HCL 62422665249 No Longer Active Ang Markham MD Active HYDROXYZINE HCL 25 MG TABS 1 tab PO tid PRN itching HYDROXYZINE HCL 25 MG TABS 471414 HYDROXYZINE HCL Inactive [facility] MELATONIN 5 MG TABS 1-2 po qHS PRN Insomnia [facility] MELATONIN 5 MG TABS 054880 MELATONIN Inactive TRINESSA (28) 0.18/0.215/0.25 MG-35 MCG TABS 1 po qd as directed TRINESSA (28) 0.18/0.215/0.25 MG-35 MCG TABS 178228 NORGESTIM-ETH ESTRAD TRIPHASIC Inactive COLACE 100 MG CAP 1 tab PO BID COLACE 100 MG CAP 1439571 DOCUSATE SODIUM Inactive ANUSOL-HC 2.5 % CREAM apply as needed ANUSOL-HC 2.5 % CREAM 508339 HYDROCORTISONE (RECTAL) Inactive ZOLOFT 50 MG TAB 1 tablet by mouth daily ZOLOFT 50 MG TAB 402376 SERTRALINE HCL Inactive CEFTIN 500 MG TAB 1 tablet by mouth twice daily for 7 days 07/24 CEFTIN 500 MG TAB 914161 CEFUROXIME AXETIL Inactive NITROFURANTOIN MACROCRYSTAL 100 MG CAPS 1 capsule PO bid x 7 days NITROFURANTOIN MACROCRYSTAL 100 MG CAPS 9613903 NITROFURANTOIN MACROCRYSTAL Inactive IBUPROFEN 800 MG TABS 1 tab every 8 hours as needed for pain 2013 IBUPROFEN 800 MG TABS 068625 IBUPROFEN Inactive COLACE 100 MG CAP 1 po BID PRN Constipation COLACE 100 MG CAP 1609855 DOCUSATE SODIUM Inactive MELOXICAM 15 MG TABS 1 po qd PRN Knee Pain MELOXICAM 15 MG TABS 275566 MELOXICAM Inactive LEVEMIR FLEXPEN 100 UNIT/ML SOLN 40 units SC at bedtime LEVEMIR FLEXPEN 100 UNIT/ML SOLN INSULIN DETEMIR Inactive GENTAMICIN SULFATE 0.1 % EXT OINT Apply to open sores once a day. GENTAMICIN SULFATE 0.1 % EXT OINT 989471 GENTAMICIN SULFATE Inactive EMBRACE BLOOD GLUCOSE TEST STRP Test blood sugars 4 times daily and PRN 08/05 EMBRACE BLOOD GLUCOSE TEST STRP GLUCOSE BLOOD Inactive LEVEMIR FLEXTOUCH 100 UNIT/ML SC SOPN 35 units SC at 12-1pm, 35 units 12-1am LEVEMIR FLEXTOUCH 100 UNIT/ML SC SOPN INSULIN DETEMIR Inactive CORTISPORIN 3.5-23898-8 SOLN 4gtts in affected ear QID x 7 days CORTISPORIN 3.5-18981-9 SOLN 354997 [id number] Inactive GEMFIBROZIL 600 MG TABS 1 po BID GEMFIBROZIL 600 MG TABS 227350 GEMFIBROZIL Inactive LIPITOR 40 MG TAB 1 po qHS LIPITOR 40 MG TAB 900113 ATORVASTATIN CALCIUM Inactive METFORMIN HCL 1000 MG TABS 1 tablet by mouth twice daily METFORMIN HCL 1000 MG TABS 538418 METFORMIN HCL Inactive TRESIBA FLEXTOUCH 200 UNIT/ML SC SOPN Take 70 units daily at mid-night to 1 am. TRESIBA FLEXTOUCH 200 UNIT/ML SC SOPN INSULIN DEGLUDEC Inactive DOXEPIN HCL 10 MG CAP 1 tablet nightly for the itch DOXEPIN HCL 10 MG CAP 7048034 DOXEPIN HCL Inactive LEVAQUIN 500 MG TABS 1 daily for infection LEVAQUIN 500 MG TABS 344657 LEVOFLOXACIN Inactive CLINDAMYCIN HCL 300 MG ORAL CAPS 1 four times a day CLINDAMYCIN HCL 300 MG ORAL CAPS 520033 CLINDAMYCIN HCL Inactive HYDROXYZINE HCL 25 MG TAB 1 TID PRN nerves HYDROXYZINE HCL 25 MG TAB 912823 HYDROXYZINE HCL Inactive ZANTAC 150 MG TAB 1 po BID ZANTAC 150 MG TAB 039674 RANITIDINE HCL Inactive COLACE 100 MG CAP 1 po daily COLACE 100 MG CAP 1444695 DOCUSATE SODIUM Inactive ACYCLOVIR 400 MG TABS 1 po qd ACYCLOVIR 400 MG TABS 19720928 ACYCLOVIR Inactive AZITHROMYCIN 250 MG TABS take 2 po day 1 then take1 po days 2-5 AZITHROMYCIN 250 MG TABS 2276917 AZITHROMYCIN Inactive AZITHROMYCIN 250 MG TABS 2 po qd x 1 day, then 1 po qd x 4 days AZITHROMYCIN 250 MG TABS 6134416 AZITHROMYCIN Inactive ACYCLOVIR 400 MG TABS 1 pill twice daily ACYCLOVIR 400 MG TABS 19720928 ACYCLOVIR Inactive DIFLUCAN 150 MG TAB 1 qODay x 2 doses DIFLUCAN 150 MG TAB 19760606 FLUCONAZOLE Inactive ACYCLOVIR 400 MG TABS ACYCLOVIR 400 MG TABS 19720928 ACYCLOVIR Inactive DIFLUCAN 150 MG TAB 1 qODay x 2 doses DIFLUCAN 150 MG TAB 960515 FLUCONAZOLE Inactive BACTRIM DS 800-160 MG TAB 1 tab by mouth twice daily BACTRIM DS 800-160 MG TAB 198945 TRIMETHOPRIM-SULFAMETHOXAZOLE Inactive Advance Directives Directive Description Start [...] Panel - Chemistry sodium, serum 130 mmol/L 250-944 2572/10/12 carbon dioxide, venous blood 28.1 mmol/L 21.0-32.0 potassium, serum 3.9 mmol/L 3.5-5.2 chloride, serum 91 mmol/L 98-107 blood glucose 547 mg/dL 65-110 urea nitrogen, blood 3 mg/dL 7-18 creatinine, serum 0.78 mg/dL 0.55-1.30 alanine aminotransferase (SGPT), serum 11 U/L 12-78 aspartate aminotransferase (SGOT), serum 7 U/L 15-37 calcium, serum 8.8 mg/dL 8.5-10.1 bilirubin, serum, total 0.30 mg/dL 0.00-1.00 cholesterol, serum 221 mg/dL 779-127 4250/10/12 triglyceride, serum, fasting 590 mg/dL 30-200 HDL cholesterol, serum 45 mg/dL 32-96 LDL cholesterol, serum 58 mg/dL 0-130 Encounters Code Encounter Date Provider Facility CPT-76863 Level 3 Est. Patient 14:52:33 CDT Da Romero [facility] CPT-33188 Level 3 Est. Patient 10:22:30 CDT Conner Hills MD [facility] CPT-48073 Level 3 Est. Patient 15:02:19 CDT Shreya Velazquez [facility] CPT-51614 Level 3 Est. Patient 13:22:25 CDT Gabriel Hunt [facility] CPT-29245 Level 4 Est. Patient 16:02:22 CDT Ang Markham MD [facility] CPT-08583 Level 3 Est. Patient 16:21:23 CDT Celestine Heurta [facility] CPT-92964 Level 3 Est. Patient 17:02:56 CDT Gabriel Hunt [facility] CPT-41945 Level 3 Est. Patient 14:46:22 CDT Da Romero [facility] CPT-08764 Level 4 Est. Patient 13:55:20 CDT Ang Markham MD [facility] CPT-65664 Level 4 Est. Patient 16:10:09 CDT Celestine Huerta [facility] CPT-19390 Level 3 Est. Patient 13:51:24 CDT Ang Markham MD [facility] CPT-11940 Level 3 Est. Patient 18:42:15 CDT Gabriel Hunt [facility] CPT-18298 Level 5 Est. Patient 14:40:14 CDT Celestine Huerta RAMSES [facility] CPT-32677 Level 4 Est. Patient 14:36:17 CDT Ang Markham MD [facility] CPT-89908 Level 3 Est. Patient 11:13:47 BATTER MIXER Ang Markham MD [facility] CPT-66012 Level 3 Est. Patient 11:59:20 BATTER MIXER Gloria Dunbar [facility] CPT-06917 Level 3 Est. Patient 17:32:37 BATTER MIXER Gloria Dunbar [facility] CPT-31392 Level 4 Est. Patient 16:39:07 CDT Ang Markham MD [facility] CPT-19714 Level 3 Est. Patient 16:35:50 CDT Ang Markham MD [facility] CPT-91372 Level 4 Est. Patient 13:53:06 BATTER MIXER Ang Markham MD [facility] CPT-64516 Level 3 Est. Patient 08:58:08 BATTER MIXER Ang Markham MD [facility] CPT-73922 Level 3 Est. Patient 18:48:29 CDT Anthony [facility] CPT-12082 Level 3 Est. Patient 12:16:59 CDT Gabriel Hunt DO [facility] CPT-65072 Level 3 Est. Patient 18:57:15 CDT Anthony [facility] CPT-70418 Level 3 Est. Patient 13:59:22 BATTER MIXER Ang Markham MD [facility] CPT-98657 Level 4 Est. Patient 10:36:08 BATTER MIXER Ang Markham MD [facility] CPT-57053 Level 3 Est. Patient 16:27:02 CDT Eri Borges MD PhD [facility] CPT-57490 Level 3 Est. Patient 10:36:43 CDT Octaviano CARBONE [facility] CPT-83916 Level 4 New Patient 08:58:06 CDT Ang Markham MD [facility] Procedures Code Procedure Name Date Entry Date Standard Description CPT-62309 LS spine comp w obliques - XRAY USE ONLY 15:34:48 CDT CPT-00017 Lipid - LAB USE ONLY 15:28:39 CDT CPT-81898 CMP - LAB USE ONLY 15:28:39 CDT CPT-50696 Venipuncture Draw Fee 15:28:39 CDT CPT-38744 Abd compl w upright - XRAY USE ONLY 14:09:39 CDT 02/28 CPT-64759 Venipuncture Draw Fee 12:25:15 CDT CPT-07226 Knee 3V 16:48:40 CDT CPT-OV Office Visit 16:27:13 CDT CPT-OV Office Visit 16:21:19 CDT CPT-79627 Sono pelvis non OB uterus ovaries cervix 09:37:28 CDT
--- OUTSIDE RECORDS SUMMARY | 2018-12-22 01:16 | XMS REPORT | Clinical Summary ---
Author Author Admin, E Organization [facility] Address Unknown Phone Unavailable Allergies, Adverse Reactions, [...] care facility Cellulitis, ankle, left 682.6 Resolved Agn Markham MD Cellulitis and abscess of leg, except foot Microalbuminuria 791.0 Active Ang Markham MD Proteinuria Diabetes mellitus, type I, with hypoglycemia 250.81 Resolved Ang Markham MD Diabetes mellitus with other specified manifestations, type I [juvenile type], not stated as uncontrolled alf use 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 V58.67 Resolved Ang [...] Resolved Ang Markham MD Acute swimmers' ear alf use 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 V58.67 Active Celestine [...] ICD-623.5 Inactive Ang Markham MD Amenorrhea ICD-626.0 Nathan Markham MD Cellulitis, ankle, left ICD-682.6 Nathan Markham MD Diabetes mellitus, type I, with hypoglycemia ICD-250.81 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 INSULIN DEGLUDEC 46998474233 No Longer Active Conner Hills MD Active METFORMIN HCL 1000 MG TABS 1 tablet by mouth twice daily METFORMIN HCL 36945095715 No Longer Active Conner Hills MD Active LIPITOR 40 MG TAB 1 po qHS ATORVASTATIN CALCIUM 55738205679 No Longer Active Conner Hills MD Active GEMFIBROZIL 600 MG TABS 1 po BID GEMFIBROZIL 83588283129 No Longer Active Conner Hills MD Active CORTISPORIN 3.5-02375-7 SOLN 4gtts in affected ear QID x 7 days [id number] 03343554790 No Longer Active Ang Markham MD Active LEVEMIR FLEXTOUCH 100 UNIT/ML SC SOPN 35 units SC at 12-1pm, 35 units 12-1am INSULIN DETEMIR 64911694284 No Longer Active Celestine PEARCE Active REGLAN 10 MG TAB 0.5 po TID 30min prior to meals METOCLOPRAMIDE HCL 44739363561 Active Ang Markham MD Active ZANTAC 150 MG TAB 1 po BID RANITIDINE HCL 31295495228 Active Ang Markham MD Active COLACE 100 MG CAP 1 po daily DOCUSATE SODIUM 52090597156 Active Gabriel Hunt DO Active NOVOLOG FLEXPEN 100 UNIT/ML SOPN Take 20 units TID with meals, plus 2u/50 for blood sugars above 150. Ratio vs. Carbs INSULIN ASPART 27612824823 Active Gabriel Hunt DO Active BD PEN NEEDLE DINESH U/F 32G X 4 MM MISC 5 a day INSULIN PEN NEEDLE 32768139898 Active Celestine Ziglari RADIO MACHINIST Active EMBRACE BLOOD GLUCOSE TEST STRP Test blood sugars 4 times daily and PRN 08/05 GLUCOSE BLOOD 95402646195 No Longer Active Maliheh Ziglari RADIO MACHINIST Active TRUEPLUS LANCETS 30G MISC 4 a day LANCETS 30635950190 Active Maliheh Ziglari RADIO MACHINIST Active TRUETEST TEST STRP check blood sugars 4x/day GLUCOSE BLOOD 77318403932 Active Maliheh Ziglari RADIO MACHINIST Active TRUERESULT BLOOD GLUCOSE W/DEVICE KIT check blood sugars 4x a day BLOOD GLUCOSE MONITORING SUPPL 65313170232 Active Malstepheneh Ziglari RADIO MACHINIST Active LISINOPRIL 5 MG TABS 1 po qd LISINOPRIL 78632649792 Active Ang Markham MD Active PAXIL 20 MG TAB 1 tablet by mouth daily PAROXETINE HCL 34473635486 Active Ang Markham MD Active GENTAMICIN SULFATE 0.1 % EXT OINT Apply to open sores once a day. GENTAMICIN SULFATE 35831862545 No Longer Active Ang Markham MD Active ZOLPIDEM TARTRATE 10 MG TABS 1 po qHS PRN Insomnia ZOLPIDEM TARTRATE 54183492288 Active Ang Markham MD Active BACTRIM DS 800-160 MG TAB 1 tab by mouth twice daily TRIMETHOPRIM-SULFAMETHOXAZOLE 47104503231 No Longer Active Gloria Goveaharlan DIE MAKER TRIM Active LEVEMIR FLEXPEN 100 UNIT/ML SOLN 40 units SC at bedtime INSULIN DETEMIR No Longer Active Susan Arellano RMA Active INSUPEN ULTRAFIN 31G X 6 MM MISC Use with insulin qid. DX: E11.9 INSULIN PEN NEEDLE 06870457721 Active Ang Markham MD Active ZOLOFT 100 MG TAB 1 po qHS SERTRALINE HCL 55444034042 No Longer Active Ang Markham MD Active MELOXICAM 15 MG TABS 1 po qd PRN Knee Pain MELOXICAM 10614870503 No Longer Active Ang Markham MD Active CYCLOBENZAPRINE HCL 5 MG TABS 1 po qHS PRN Muscle pain CYCLOBENZAPRINE HCL 46700695918 Active Ang Markham MD Active COLACE 100 MG CAP 1 po BID PRN Constipation DOCUSATE SODIUM 22585265225 No Longer Active Ang Markham MD Active HYDROXYZINE HCL 25 MG TAB 1 TID PRN nerves HYDROXYZINE HCL 73117044464 Active Ang Markham MD Active IBUPROFEN 800 MG TABS 1 tab every 8 hours as needed for pain 2013 IBUPROFEN 36089332762 No Longer Active Ang Markham MD Active NITROFURANTOIN MACROCRYSTAL 100 MG CAPS 1 capsule PO bid x 7 days NITROFURANTOIN MACROCRYSTAL 20820247539 No Longer Active Ang Markham MD Active DIFLUCAN 150 MG TAB 1 qODay x 2 doses FLUCONAZOLE 85875369450 No Longer Active Da Romero APRN Active CEFTIN 500 MG TAB 1 tablet by mouth twice daily for 7 days 07/24 CEFUROXIME AXETIL 70420963069 No Longer Active Anthony CARBONE Active ZOLOFT 50 MG TAB 1 tablet by mouth daily SERTRALINE HCL 15364432858 No Longer Active Anthony CARBONE Active ANUSOL-HC 2.5 % CREAM apply as needed HYDROCORTISONE (RECTAL) 77144328227 No Longer Active Anthony CARBONE Active COLACE 100 MG CAP 1 tab PO BID DOCUSATE SODIUM 31160632653 No Longer Active Anthony CARBONE Active TRINESSA (28) 0.18/0.215/0.25 MG-35 MCG TABS 1 po qd as directed NORGESTIM-ETH ESTRAD TRIPHASIC 58510364083 No Longer Active Anthony CARBONE Active [facility] MELATONIN 5 MG TABS 1-2 po qHS PRN Insomnia MELATONIN 86008479820 No Longer Active Anthony CARBONE Active ACYCLOVIR 400 MG TABS ACYCLOVIR 72635363907 No Longer Active Ang Markham MD Active HYDROXYZINE HCL 25 MG TABS 1 tab PO tid PRN itching HYDROXYZINE HCL 22818104521 No Longer Active Ang Markham MD Active DIFLUCAN 150 MG TAB 1 qODay x 2 doses FLUCONAZOLE 50844662594 No Longer Active Da Romero APRN Active ACYCLOVIR 400 MG TABS 1 pill twice daily ACYCLOVIR 50835017503 No Longer Active Jillina Nick OSHEA Active AZITHROMYCIN 250 MG TABS 2 po qd x 1 day, then 1 po qd x 4 days AZITHROMYCIN 77933774206 No Longer Active Eri Borges MD PhD Active AZITHROMYCIN 250 MG TABS take 2 po day 1 then take1 po days 2-5 AZITHROMYCIN 88569587963 No Longer Active Octaviano CARBONE Active ACYCLOVIR 400 MG TABS 1 po qd ACYCLOVIR 24727466714 No Longer Active Ang Markham MD Active PROZAC 40 MG CAPS 1 cap by mouth at bedtime FLUOXETINE HCL 07727020084 No Longer Active Ang Markham MD Active HYDROXYZINE HCL 25 MG TABS 1 tab PO tid PRN itching HYDROXYZINE HCL 25 MG TABS 709581 HYDROXYZINE HCL Inactive [facility] MELATONIN 5 MG TABS 1-2 po qHS PRN Insomnia [facility] MELATONIN 5 MG TABS 110619 MELATONIN Inactive TRINESSA (28) 0.18/0.215/0.25 MG-35 MCG TABS 1 po qd as directed TRINESSA (28) 0.18/0.215/0.25 MG-35 MCG TABS 715144 NORGESTIM-ETH ESTRAD TRIPHASIC Inactive COLACE 100 MG CAP 1 tab PO BID COLACE 100 MG CAP 2705419 DOCUSATE SODIUM Inactive ANUSOL-HC 2.5 % CREAM apply as needed ANUSOL-HC 2.5 % CREAM 285543 HYDROCORTISONE (RECTAL) Inactive ZOLOFT 50 MG TAB 1 tablet by mouth daily ZOLOFT 50 MG TAB 593223 SERTRALINE HCL Inactive CEFTIN 500 MG TAB 1 tablet by mouth twice daily for 7 days 07/24 CEFTIN 500 MG TAB 702134 CEFUROXIME AXETIL Inactive NITROFURANTOIN MACROCRYSTAL 100 MG CAPS 1 capsule PO bid x 7 days NITROFURANTOIN MACROCRYSTAL 100 MG CAPS 1643179 NITROFURANTOIN MACROCRYSTAL Inactive IBUPROFEN 800 MG TABS 1 tab every 8 hours as needed for pain 2013 IBUPROFEN 800 MG TABS 258520 IBUPROFEN Inactive COLACE 100 MG CAP 1 po BID PRN Constipation COLACE 100 MG CAP 2310846 DOCUSATE SODIUM Inactive MELOXICAM 15 MG TABS 1 po qd PRN Knee Pain MELOXICAM 15 MG TABS 830591 MELOXICAM Inactive LEVEMIR FLEXPEN 100 UNIT/ML SOLN 40 units SC at bedtime LEVEMIR FLEXPEN 100 UNIT/ML SOLN INSULIN DETEMIR Inactive GENTAMICIN SULFATE 0.1 % EXT OINT Apply to open sores once a day. GENTAMICIN SULFATE 0.1 % EXT OINT 020198 GENTAMICIN SULFATE Inactive EMBRACE BLOOD GLUCOSE TEST STRP Test blood sugars 4 times daily and PRN 08/05 EMBRACE BLOOD GLUCOSE TEST STRP GLUCOSE BLOOD Inactive LEVEMIR FLEXTOUCH 100 UNIT/ML SC SOPN 35 units SC at 12-1pm, 35 units 12-1am LEVEMIR FLEXTOUCH 100 UNIT/ML SC SOPN INSULIN DETEMIR Inactive CORTISPORIN 3.5-08302-2 SOLN 4gtts in affected ear QID x 7 days CORTISPORIN 3.5-52312-5 SOLN 288203 AVWDGOER-FWWFVCWPT-LE Inactive GEMFIBROZIL 600 MG TABS 1 po BID GEMFIBROZIL 600 MG TABS 387125 GEMFIBROZIL Inactive LIPITOR 40 MG TAB 1 po qHS LIPITOR 40 MG TAB 842429 ATORVASTATIN CALCIUM Inactive METFORMIN HCL 1000 MG TABS 1 tablet by mouth twice daily METFORMIN HCL 1000 MG TABS 754694 METFORMIN HCL Inactive TRESIBA FLEXTOUCH 200 UNIT/ML SC SOPN Take 70 units daily at mid-night to 1 am. TRESIBA FLEXTOUCH 200 UNIT/ML SC SOPN INSULIN DEGLUDEC Inactive DOXEPIN HCL 10 MG CAP 1 tablet nightly for the itch DOXEPIN HCL 10 MG CAP 7043077 DOXEPIN HCL Inactive LEVAQUIN 500 MG TABS 1 daily for infection LEVAQUIN 500 MG TABS 603392 LEVOFLOXACIN Inactive ACYCLOVIR 400 MG TABS 1 po qd ACYCLOVIR 400 MG TABS 415623 ACYCLOVIR Inactive AZITHROMYCIN 250 MG TABS take 2 po day 1 then take1 po days 2-5 AZITHROMYCIN 250 MG TABS 9817637 AZITHROMYCIN Inactive AZITHROMYCIN 250 MG TABS 2 po qd x 1 day, then 1 po qd x 4 days AZITHROMYCIN 250 MG TABS 9444321 AZITHROMYCIN Inactive ACYCLOVIR 400 MG TABS 1 [...] Value Unit Range Description blood pressure, diastolic 88 mm[Hg] BP [place] [...] temperature weight E&M 116 [lb_av] Weight Measured blood pressure, diastolic 60 mm[Hg] BP [place] blood pressure, systolic 102 mm[Hg] BP sys height E&M 63 [in_us] Bdy height pulse rate E&M 96 /min Heart rate weight E&M 120 [lb_av] Weight Measured Diagnostic Results Date Name Value Unit Range Description Lab Report: Comp. Metabolic Panel, Lipid Panel - Chemistry sodium, serum 130 mmol/L [phone]/10/12 carbon dioxide, venous blood 28.1 mmol/L 21.0-32.0 potassium, serum 3.9 mmol/L 3.5-5.2 chloride, serum 91 mmol/L 98-107 blood glucose 547 mg/dL 65-110 urea nitrogen, blood 3 mg/dL 7-18 creatinine, serum 0.78 mg/dL 0.55-1.30 alanine aminotransferase (SGPT), serum 11 U/L 12-78 aspartate aminotransferase (SGOT), serum 7 U/L 15-37 calcium, serum 8.8 mg/dL 8.5-10.1 bilirubin, serum, total 0.30 mg/dL 0.00-1.00 cholesterol, serum 221 mg/dL 276-939 1218/10/12 triglyceride, serum, fasting 590 mg/dL 30-200 HDL cholesterol, serum 45 mg/dL 32-96 LDL cholesterol, serum 58 mg/dL 0-130 Office Visit: Diabetes Visit - Basic LDL target level 100 mg/dL Office Visit: Diabetes Visit - Chemistry cholesterol, target level 200 mg/dL triglyceride, target level 200 mg/dL HDL cholesterol, serum, target level 35 mg/dL Encounters Code Encounter Date Provider Facility CPT-00225 Level 3 Est. Patient 10:22:30 CDT Conner Hills MD [facility] CPT-56901 Level 3 Est. Patient 15:02:19 CDT Shreya Velazquez [facility] CPT-03838 Level 3 Est. Patient 13:22:25 CDT Gabriel Hunt [facility] CPT-11449 Level 4 Est. Patient 16:02:22 CDT Ang Markham MD [facility] CPT-57401 Level 3 Est. Patient 16:21:23 CDT Celestine Huerta [facility] CPT-23573 Level 3 Est. Patient 17:02:56 CDT Gabriel Hunt [facility] CPT-05401 Level 3 Est. Patient 14:46:22 CDT Da Romero [facility] CPT-34788 Level 4 Est. Patient 13:55:20 CDT Ang Markham MD [facility] CPT-57959 Level 4 Est. Patient 16:10:09 CDT Celestine Huerta [facility] CPT-17729 Level 3 Est. Patient 13:51:24 CDT Ang Markham MD [facility] CPT-95555 Level 3 Est. Patient 18:42:15 CDT Gabriel Hunt [facility] CPT-62683 Level 5 Est. Patient 14:40:14 CDT Celestine Huerta [facility] CPT-92165 Level 4 Est. Patient 14:36:17 CDT Ang Markham MD [facility] CPT-21474 Level 3 Est. Patient 11:13:47 INSTALLATIONS INSPECTOR Ang Markham MD [facility] CPT-56265 Level 3 Est. Patient 11:59:20 INSTALLATIONS INSPECTOR Gloria Dubnar [facility] CPT-49508 Level 3 Est. Patient 17:32:37 INSTALLATIONS INSPECTOR Gloria Dunbar [facility] CPT-26147 Level 4 Est. Patient 16:39:07 CDT Ang Markham MD [facility] CPT-61139 Level 3 Est. Patient 16:35:50 CDT Ang Markham MD [facility] CPT-04453 Level 4 Est. Patient 13:53:06 INSTALLATIONS INSPECTOR Ang Markham MD [facility] CPT-05994 Level 3 Est. Patient 08:58:08 INSTALLATIONS INSPECTOR Ang Markham MD [facility] CPT-16659 Level 3 Est. Patient 18:48:29 CDT Anthony Whitfield [facility] CPT-09070 Level 3 Est. Patient 12:16:59 CDT Gabriel Hunt DO [facility] CPT-25820 Level 3 Est. Patient 18:57:15 CDT Anthony Whitfield [facility] CPT-62193 Level 3 Est. Patient 13:59:22 INSTALLATIONS INSPECTOR Ang Markham MD [facility] CPT-48780 Level 4 Est. Patient 10:36:08 INSTALLATIONS INSPECTOR Ang Markham MD [facility] CPT-64455 Level 3 Est. Patient 16:27:02 CDT Eri Borges MD [facility] CPT-89580 Level 3 Est. Patient 10:36:43 CDT Octaviano Dempsey [facility] CPT-08634 Level 4 New Patient 08:58:06 CDT Ang Markham MD [facility] Procedures Code Procedure Name Date Entry Date Standard Description CPT-91443 LS spine comp w obliques - XRAY USE ONLY 15:34:48 CDT CPT-32907 Lipid - LAB USE ONLY 15:28:39 CDT CPT-97922 CMP - LAB USE ONLY 15:28:39 CDT CPT-51387 Venipuncture Draw Fee 15:28:39 CDT CPT-27101 Abd compl w upright - XRAY USE ONLY 14:09:39 CDT 02/28 CPT-08761 Venipuncture Draw Fee 12:25:15 CDT CPT-31479 Knee 3V 16:48:40 CDT CPT-OV Office Visit 16:27:13 CDT CPT-OV Office Visit 16:21:19 CDT CPT-69130 Sono pelvis non OB uterus ovaries cervix 09:37:28 CDT
--- OUTSIDE RECORDS SUMMARY | 2018-12-22 01:17 | XMS REPORT | Clinical Summary ---
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 INSULIN ASPART 93893290387 Active Celestine Sierraglari ICE CREAM VAN VENDOR Active LEVEMIR FLEXTOUCH 100 UNIT/ML SC SOPN 30 units SC at 12-1pm, 30 units 12-1am INSULIN DETEMIR 48341206600 Active Celestine Sierraglari ICE CREAM VAN VENDOR Active EMBRACE BLOOD GLUCOSE TEST STRP Test blood sugars 4 times daily and PRN 08/05 GLUCOSE BLOOD 53592067923 No Longer Active Celestine Sierraglari ICE CREAM VAN VENDOR Active TRUEPLUS LANCETS 30G MISC 4 a day LANCETS 14345133934 Active Celestine Sierraglari ICE CREAM VAN VENDOR Active TRUETEST TEST STRP check blood sugars 4x/day GLUCOSE BLOOD 61951005548 Active Celestine Sierraglari ICE CREAM VAN VENDOR Active TRUERESULT BLOOD GLUCOSE W/DEVICE KIT check blood sugars 4x a day BLOOD GLUCOSE MONITORING SUPPL 61207456131 Active Celestine Sierraglari ICE CREAM VAN VENDOR Active LISINOPRIL 5 MG TABS 1 po qd LISINOPRIL 34372127710 Active Ang Markham MD Active COLACE 100 MG CAP 1 po BID PRN Constipation DOCUSATE SODIUM 24887227919 Active Ang Markham MD Active PAXIL 20 MG TAB 1 tablet by mouth daily PAROXETINE HCL 93452686410 Active Ang Markham MD Active GENTAMICIN SULFATE 0.1 % EXT OINT Apply to open sores once a day. GENTAMICIN SULFATE 02381119182 No Longer Active Ang Marhkam MD Active ZOLPIDEM TARTRATE 10 MG TABS 1 po qHS PRN Insomnia ZOLPIDEM TARTRATE 83413751930 Active Ang Markham MD Active BACTRIM DS 800-160 MG TAB 1 tab by mouth twice daily TRIMETHOPRIM-SULFAMETHOXAZOLE 92869282274 No Longer Active Gloria Dunbar CORRECTION OFFICER HEAD Active LEVEMIR FLEXPEN 100 UNIT/ML SOLN 40 units SC at bedtime INSULIN DETEMIR No Longer Active Susan Arellano RMA Active INSUPEN ULTRAFIN 31G X 6 MM MISC Use with insulin qid. DX: E11.9 INSULIN PEN NEEDLE 03465377171 Active Ang Markham MD Active ZOLOFT 100 MG TAB 1 po qHS SERTRALINE HCL 48520238470 No Longer Active Ang Markham MD Active MELOXICAM 15 MG TABS 1 po qd PRN Knee Pain MELOXICAM 42720263746 No Longer Active Ang Markham MD Active LIPITOR 40 MG TAB 1 po qHS ATORVASTATIN CALCIUM 01290284739 Active Ang Markham MD Active METFORMIN HCL 1000 MG TABS 1 tablet by mouth twice daily METFORMIN HCL 90431033438 Active Ang Markham MD Active CYCLOBENZAPRINE HCL 5 MG TABS 1 po qHS PRN Muscle pain CYCLOBENZAPRINE HCL 22258441627 Active Ang Markham MD Active COLACE 100 MG CAP 1 po BID PRN Constipation DOCUSATE SODIUM 84122078278 No Longer Active Ang Markham MD Active HYDROXYZINE HCL 25 MG TAB 1 TID PRN nerves HYDROXYZINE HCL 83064541266 Active Ang Markham MD Active IBUPROFEN 800 MG TABS 1 tab every 8 hours as needed for pain 2013 IBUPROFEN 81890358138 No Longer Active Ang Markham MD Active NITROFURANTOIN MACROCRYSTAL 100 MG CAPS 1 capsule PO bid x 7 days NITROFURANTOIN MACROCRYSTAL 51877222297 No Longer Active Ang Markham MD Active DIFLUCAN 150 MG TAB 1 qODay x 2 doses FLUCONAZOLE 88076856838 No Longer Active Da Romero APRN Active CEFTIN 500 MG TAB 1 tablet by mouth twice daily for 7 days 07/24 CEFUROXIME AXETIL 68880087377 No Longer Active Anthony CARBONE Active ZOLOFT 50 MG TAB 1 tablet by mouth daily SERTRALINE HCL 42600125567 No Longer Active Anthony CARBONE Active ANUSOL-HC 2.5 % CREAM apply as needed HYDROCORTISONE (RECTAL) 66030044451 No Longer Active Anthony CARBONE Active COLACE 100 MG CAP 1 tab PO BID DOCUSATE SODIUM 38508934397 No Longer Active Anthony CARBONE Active TRINESSA (28) 0.18/0.215/0.25 MG-35 MCG TABS 1 po qd as directed NORGESTIM-ETH ESTRAD TRIPHASIC 50658921452 No Longer Active Anthony CARBONE Active [facility] MELATONIN 5 MG TABS 1-2 po qHS PRN Insomnia MELATONIN 54910450165 No Longer Active Anthony CARBONE Active ACYCLOVIR 400 MG TABS ACYCLOVIR 42536302476 No Longer Active Ang Markham MD Active HYDROXYZINE HCL 25 MG TABS 1 tab PO tid PRN itching HYDROXYZINE HCL 40401935413 No Longer Active Ang Markham MD Active DIFLUCAN 150 MG TAB 1 qODay x 2 doses FLUCONAZOLE 76342840471 No Longer Active Jillina Frazell CORRECTION OFFICER HEAD Active ACYCLOVIR 400 MG TABS 1 pill twice daily ACYCLOVIR 00892260778 No Longer Active Jillina Frazell CORRECTION OFFICER HEAD Active AZITHROMYCIN 250 MG TABS 2 po qd x 1 day, then 1 po qd x 4 days AZITHROMYCIN 06803843955 No Longer Active Eri Borges MD PhD Active AZITHROMYCIN 250 MG TABS take 2 po day 1 then take1 po days 2-5 AZITHROMYCIN 95269561471 No Longer Active Octaviano CARBONE Active ACYCLOVIR 400 MG TABS 1 po qd ACYCLOVIR 77896019141 No Longer Active Ang Markham MD Active PROZAC 40 MG CAPS 1 cap by mouth at bedtime FLUOXETINE HCL 08243569210 No Longer Active Ang Markham MD Active HYDROXYZINE HCL 25 MG TABS 1 tab PO tid PRN itching HYDROXYZINE HCL 25 MG TABS 043126 HYDROXYZINE HCL Inactive [facility] MELATONIN 5 MG TABS 1-2 po qHS PRN Insomnia [facility] MELATONIN 5 MG TABS 544907 MELATONIN Inactive TRINESSA (28) 0.18/0.215/0.25 MG-35 MCG TABS 1 po qd as directed TRINESSA (28) 0.18/0.215/0.25 MG-35 MCG TABS 573481 NORGESTIM-ETH ESTRAD TRIPHASIC Inactive COLACE 100 MG CAP 1 tab PO BID COLACE 100 MG CAP 4402539 DOCUSATE SODIUM Inactive ANUSOL-HC 2.5 % CREAM apply as needed ANUSOL-HC 2.5 % CREAM 125732 HYDROCORTISONE (RECTAL) Inactive ZOLOFT 50 MG TAB 1 tablet by mouth daily ZOLOFT 50 MG TAB 216393 SERTRALINE HCL Inactive CEFTIN 500 MG TAB 1 tablet by mouth twice daily for 7 days 07/24 CEFTIN 500 MG TAB 581795 CEFUROXIME AXETIL Inactive NITROFURANTOIN MACROCRYSTAL 100 MG CAPS 1 capsule PO bid x 7 days NITROFURANTOIN MACROCRYSTAL 100 MG CAPS 8582569 NITROFURANTOIN MACROCRYSTAL Inactive IBUPROFEN 800 MG TABS 1 tab every 8 hours as needed for pain 2013 IBUPROFEN 800 MG TABS 527486 IBUPROFEN Inactive COLACE 100 MG CAP 1 po BID PRN Constipation COLACE 100 MG CAP 3561325 DOCUSATE SODIUM Inactive MELOXICAM 15 MG TABS 1 po qd PRN Knee Pain MELOXICAM 15 MG TABS 062059 MELOXICAM Inactive LEVEMIR FLEXPEN 100 UNIT/ML SOLN 40 units SC at bedtime LEVEMIR FLEXPEN 100 UNIT/ML SOLN INSULIN DETEMIR Inactive GENTAMICIN SULFATE 0.1 % EXT OINT Apply to open sores once a day. GENTAMICIN SULFATE 0.1 % EXT OINT 540782 GENTAMICIN SULFATE Inactive EMBRACE BLOOD GLUCOSE TEST STRP Test blood sugars 4 times daily and PRN 08/05 EMBRACE BLOOD GLUCOSE TEST STRP GLUCOSE BLOOD Inactive ACYCLOVIR 400 MG TABS 1 po qd ACYCLOVIR 400 MG TABS 19720928 ACYCLOVIR Inactive AZITHROMYCIN 250 MG TABS take 2 po day 1 then take1 po days 2-5 AZITHROMYCIN 250 MG TABS 4393224 AZITHROMYCIN Inactive AZITHROMYCIN 250 MG TABS 2 po qd x 1 day, then 1 po qd x 4 days AZITHROMYCIN 250 MG TABS 3398428 AZITHROMYCIN Inactive ACYCLOVIR 400 MG TABS 1 [...] twice daily BACTRIM DS 800-160 MG TAB 661422 TRIMETHOPRIM-SULFAMETHOXAZOLE Inactive Advance Directives Directive Description Start Date PERMISSION TO SHARE Vital Signs Date Name Value Unit Range Description blood pressure, diastolic - 8462-4 60 mm[Hg] BP arroyo blood pressure, systolic - 8480-6 120 mm[Hg] BP sys height E&M - 8302-2 63 [in_us] Bdy height pulse rate E&M - 8867-4 72 /min Heart rate weight E&M - 3141-9 121 [lb_av] Weight Measured blood pressure, diastolic - [...] HGBA1C - Chemistry sodium, serum 134 mmol/L 070-196 4661/03/16 carbon dioxide, venous blood 34.5 mmol/L 21.0-32.0 potassium, serum 4.6 mmol/L 3.5-5.2 chloride, serum 93 mmol/L 98-107 blood glucose 408 mg/dL 65-110 urea nitrogen, blood 3 mg/dL 7-18 creatinine, serum 0.58 mg/dL 0.55-1.30 alanine aminotransferase (SGPT), serum 11 U/L 12-78 aspartate aminotransferase (SGOT), serum 8 U/L 15-37 calcium, serum 9.2 mg/dL 8.5-10.1 bilirubin, serum, total 0.30 mg/dL 0.00-1.00 cholesterol, serum 195 mg/dL 719-429 4961/03/16 triglyceride, serum, fasting 138 mg/dL 30-200 HDL [...] count 429 10^3/MM^3 10*3/mm3 142-424 Lab Report: MICROALB/CREAT W/RATIO - Chemistry albumin/creatinine ratio, urine > 300 mg/g mg/g{creat} 0-29 Lab Report: MICROALB/CREAT W/RATIO - Lab microalbumin, urine 150 0-19 Office Visit: Diabetes Visit - Chemistry cholesterol, target level 200 mg/dL triglyceride, target level 200 mg/dL HDL cholesterol, serum, target level 35 mg/dL LDL target level 100 mg/dL home glucose monitor utilized Yes Encounters Code Encounter Date Provider Facility CPT-27338 Level 5 Est. Patient 14:40:14 CDT [facility] CPT-00119 Level 4 Est. Patient 14:36:17 CDT Ang Markham MD [facility] CPT-68047 Level 3 Est. Patient 11:13:47 CMV DRIVER Ang Markham MD [facility] CPT-30989 Level 3 Est. Patient 11:59:20 CMV DRIVER Gloria Dunbar [facility] CPT-79851 Level 3 Est. Patient 17:32:37 CMV DRIVER Gloria Dunbar [facility] CPT-42423 Level 4 Est. Patient 16:39:07 CDT Ang Markham MD [facility] CPT-36312 Level 3 Est. Patient 16:35:50 CDT Ang Markham MD [facility] CPT-05070 Level 4 Est. Patient 13:53:06 CMV DRIVER Ang Markham MD [facility] CPT-12326 Level 3 Est. Patient 08:58:08 CMV DRIVER Ang Markham MD [facility] CPT-74982 Level 3 Est. Patient 18:48:29 CDT Anthony W Cloven [facility] CPT-28694 Level 3 Est. Patient 12:16:59 CDT Gabriel Hunt DO [facility] CPT-37934 Level 3 Est. Patient 18:57:15 CDT Anthony Whitfield [facility] CPT-81412 Level 3 Est. Patient 13:59:22 CMV DRIVER Ang Markham MD [facility] CPT-51763 Level 4 Est. Patient 10:36:08 CMV DRIVER Ang Markham MD [facility] CPT-79530 Level 3 Est. Patient 16:27:02 CDT Eri Borges MD PhD [facility] CPT-33782 Level 3 Est. Patient 10:36:43 CDT Octaviano Wilkersonjj [facility] CPT-34999 Level 4 New Patient 08:58:06 CDT Ang Markham MD [facility] Procedures Code Procedure Name Date Entry Date Standard Description CPT-84528 Venipuncture Draw Fee 12:25:15 CDT CPT-36764 Knee 3V 16:48:40 CDT CPT-OV Office Visit 16:27:13 CDT CPT-OV Office Visit 16:21:19 CDT CPT-63056 Sono pelvis non OB uterus ovaries cervix 09:37:28 CDT
--- OUTSIDE RECORDS SUMMARY | 2018-12-22 01:17 | XMS REPORT | Clinical Summary ---
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], not stated as uncontrolled residential use 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 V58.67 Resolved Ang [...] MD Other and unspecified hyperlipidemia Hematochezia 578.1 Active Da Romero APRN Blood in stool Nausea 787.02 Resolved Ang Markham MD Nausea alone Otitis externa, acute, left 380.12 Resolved Ang Markham MD Acute swimmers' ear residential use 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 V58.67 Active Celestine [...] MD UTI ICD-599.0 Inactive Ang Markham MD Insomnia ICD-780.52 Inactive Ang Markham MD Diabetes mellitus ICD-250.00 Inactive Ang Markham MD Vaginal discharge ICD-623.5 Inactive Ang Markham MD Amenorrhea ICD-626.0 Inactive Ang Markham MD Cellulitis, ankle, left ICD-682.6 Nathan Markham MD Diabetes mellitus, type I, with hypoglycemia ICD-250.81 Nathan Markham MD residential use 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 ICD-V58.67 Nathan Markham MD Abdominal pain ICD-789.00 Nathan Markham MD Nausea ICD-787.02 Inactive Ang Markham MD 06/26 Otitis externa, acute, left ICD-380.12 Nathan Markham MD Medication List Medication Instructions Start Date Stop Date Generic Name NDC Status Provider Patient Instruction CORTISPORIN 3.5-30377-6 SOLN 4gtts in affected ear QID x 7 days [id number] No Longer Active Ang Markham MD Active TRESIBA FLEXTOUCH 200 UNIT/ML SC SOPN Take 70 units daily at mid-night to 1 am. INSULIN DEGLUDEC 31953155961 Active Celestine Rigoglari [employer] Active LEVEMIR FLEXTOUCH 100 UNIT/ML SC SOPN 35 units SC at 12-1pm, 35 units 12-1am INSULIN DETEMIR 28380067649 No Longer Active Gagestephensonia Rigoglari [employer] Active REGLAN 10 MG TAB 0.5 po TID 30min prior to meals METOCLOPRAMIDE HCL 46291890454 Active Ang Markham MD Active ZANTAC 150 MG TAB 1 po BID RANITIDINE HCL 94554838228 Active Ang Markham MD Active DOXEPIN HCL 10 MG CAP 1 tablet nightly for the itch DOXEPIN HCL 98233581361 Active Gabriel Hunt DO Active COLACE 100 MG CAP 1 po daily DOCUSATE SODIUM 52165667643 Active Gabriel Hunt DO Active NOVOLOG FLEXPEN 100 UNIT/ML SOPN Take 20 units TID with meals, plus 2u/50 for blood sugars above 150. Ratio vs. Carbs INSULIN ASPART 77012420072 Active Gabriel Hunt DO Active BD PEN NEEDLE DINESH U/F 32G X 4 MM MISC 5 a day INSULIN PEN NEEDLE 91898999600 Active Celestine Rigoglari [employer] Active EMBRACE BLOOD GLUCOSE TEST STRP Test blood sugars 4 times daily and PRN 08/05 GLUCOSE BLOOD 97046698676 No Longer Active Celestine Rigoglari RAMSES Active TRUEPLUS LANCETS 30G MISC 4 a day LANCETS 31874622218 Active Janeyeh Ziglari [employer] Active TRUETEST TEST STRP check blood sugars 4x/day GLUCOSE BLOOD 91195429250 Active Malstepheneh Ziglari [employer] Active TRUERESULT BLOOD GLUCOSE W/DEVICE KIT check blood sugars 4x a day BLOOD GLUCOSE MONITORING SUPPL 32936576501 Active Janeyeh Ziglari [employer] Active LISINOPRIL 5 MG TABS 1 po qd LISINOPRIL 38717745083 Active Ang Markham MD Active PAXIL 20 MG TAB 1 tablet by mouth daily PAROXETINE HCL 60743674838 Active Ang Markham MD Active GENTAMICIN SULFATE 0.1 % EXT OINT Apply to open sores once a day. GENTAMICIN SULFATE 83747254712 No Longer Active Ang Markham MD Active ZOLPIDEM TARTRATE 10 MG TABS 1 po qHS PRN Insomnia ZOLPIDEM TARTRATE 87370600423 Active Ang Markham MD Active BACTRIM DS 800-160 MG TAB 1 tab by mouth twice daily TRIMETHOPRIM-SULFAMETHOXAZOLE 29812229720 No Longer Active Gloria Yokum TURF FARMER Active LEVEMIR FLEXPEN 100 UNIT/ML SOLN 40 units SC at bedtime INSULIN DETEMIR No Longer Active Susan Adan RMA Active INSUPEN ULTRAFIN 31G X 6 MM MISC Use with insulin qid. DX: E11.9 INSULIN PEN NEEDLE 94534023791 Active Ang Markham MD Active ZOLOFT 100 MG TAB 1 po qHS SERTRALINE HCL 71857761851 No Longer Active Ang Markham MD Active MELOXICAM 15 MG TABS 1 po qd PRN Knee Pain MELOXICAM 74273130828 No Longer Active Ang Markham MD Active LIPITOR 40 MG TAB 1 po qHS ATORVASTATIN CALCIUM 33237657832 Active Ang Markham MD Active METFORMIN HCL 1000 MG TABS 1 tablet by mouth twice daily METFORMIN HCL 64434231116 Active Ang Markham MD Active CYCLOBENZAPRINE HCL 5 MG TABS 1 po qHS PRN Muscle pain CYCLOBENZAPRINE HCL 96680574635 Active Ang Markham MD Active COLACE 100 MG CAP 1 po BID PRN Constipation DOCUSATE SODIUM 14777662489 No Longer Active Ang Markham MD Active HYDROXYZINE HCL 25 MG TAB 1 TID PRN nerves HYDROXYZINE HCL 53703205274 Active Ang Markham MD Active IBUPROFEN 800 MG TABS 1 tab every 8 hours as needed for pain 2013 IBUPROFEN 39901627284 No Longer Active Ang Markham MD Active NITROFURANTOIN MACROCRYSTAL 100 MG CAPS 1 capsule PO bid x 7 days NITROFURANTOIN MACROCRYSTAL 56549716270 No Longer Active Ang Markham MD Active DIFLUCAN 150 MG TAB 1 qODay x 2 doses FLUCONAZOLE 98931524577 No Longer Active Da Romero APRN Active CEFTIN 500 MG TAB 1 tablet by mouth twice daily for 7 days 07/24 CEFUROXIME AXETIL 16269578177 No Longer Active Anthony CARBONE Active ZOLOFT 50 MG TAB 1 tablet by mouth daily SERTRALINE HCL 89015090797 No Longer Active Anthony CARBONE Active ANUSOL-HC 2.5 % CREAM apply as needed HYDROCORTISONE (RECTAL) 27303119687 No Longer Active Anthony CARBONE Active COLACE 100 MG CAP 1 tab PO BID DOCUSATE SODIUM 26355696665 No Longer Active Anthony CARBONE Active TRINESSA (28) 0.18/0.215/0.25 MG-35 MCG TABS 1 po qd as directed NORGESTIM-ETH ESTRAD TRIPHASIC 20062303911 No Longer Active Anthony CARBONE Active [facility] MELATONIN 5 MG TABS 1-2 po qHS PRN Insomnia MELATONIN 80837550169 No Longer Active Anthony CARBONE Active ACYCLOVIR 400 MG TABS ACYCLOVIR 55257551753 No Longer Active Ang Markham MD Active HYDROXYZINE HCL 25 MG TABS 1 tab PO tid PRN itching HYDROXYZINE HCL 74694513433 No Longer Active Ang Markham MD Active DIFLUCAN 150 MG TAB 1 qODay x 2 doses FLUCONAZOLE 54855091893 No Longer Active Da Romero APRN Active ACYCLOVIR 400 MG TABS 1 pill twice daily ACYCLOVIR 02289497591 No Longer Active Da Romero APRN Active AZITHROMYCIN 250 MG TABS 2 po qd x 1 day, then 1 po qd x 4 days AZITHROMYCIN 11119658634 No Longer Active Eri Borges MD PhD Active AZITHROMYCIN 250 MG TABS take 2 po day 1 then take1 po days 2-5 AZITHROMYCIN 96303885203 No Longer Active Octaviano Dempsey PA Active ACYCLOVIR 400 MG TABS 1 po qd ACYCLOVIR 68834412016 No Longer Active Ang Markham MD Active PROZAC 40 MG CAPS 1 cap by mouth at bedtime FLUOXETINE HCL 50750244725 No Longer Active Ang Markham MD Active HYDROXYZINE HCL 25 MG TABS 1 tab PO tid PRN itching HYDROXYZINE HCL 25 MG TABS 703042 HYDROXYZINE HCL Inactive [facility] MELATONIN 5 MG TABS 1-2 po qHS PRN Insomnia [facility] MELATONIN 5 MG TABS 480114 MELATONIN Inactive TRINESSA (28) 0.18/0.215/0.25 MG-35 MCG TABS 1 po qd as directed TRINESSA (28) 0.18/0.215/0.25 MG-35 MCG TABS 877417 NORGESTIM-ETH ESTRAD TRIPHASIC Inactive COLACE 100 MG CAP 1 tab PO BID COLACE 100 MG CAP 9101802 DOCUSATE SODIUM Inactive ANUSOL-HC 2.5 % CREAM apply as needed ANUSOL-HC 2.5 % CREAM 224499 HYDROCORTISONE (RECTAL) Inactive ZOLOFT 50 MG TAB 1 tablet by mouth daily ZOLOFT 50 MG TAB 271346 SERTRALINE HCL Inactive CEFTIN 500 MG TAB 1 tablet by mouth twice daily for 7 days 07/24 CEFTIN 500 MG TAB 742052 CEFUROXIME AXETIL Inactive NITROFURANTOIN MACROCRYSTAL 100 MG CAPS 1 capsule PO bid x 7 days NITROFURANTOIN MACROCRYSTAL 100 MG CAPS 8328295 NITROFURANTOIN MACROCRYSTAL Inactive IBUPROFEN 800 MG TABS 1 tab every 8 hours as needed for pain 2013 IBUPROFEN 800 MG TABS 664459 IBUPROFEN Inactive COLACE 100 MG CAP 1 po BID PRN Constipation COLACE 100 MG CAP 0548040 DOCUSATE SODIUM Inactive MELOXICAM 15 MG TABS 1 po qd PRN Knee Pain MELOXICAM 15 MG TABS 835217 MELOXICAM Inactive LEVEMIR FLEXPEN 100 UNIT/ML SOLN 40 units SC at bedtime LEVEMIR FLEXPEN 100 UNIT/ML SOLN INSULIN DETEMIR Inactive GENTAMICIN SULFATE 0.1 % EXT OINT Apply to open sores once a day. GENTAMICIN SULFATE 0.1 % EXT OINT 288406 GENTAMICIN SULFATE Inactive EMBRACE BLOOD GLUCOSE TEST STRP Test blood sugars 4 times daily and PRN 08/05 EMBRACE BLOOD GLUCOSE TEST STRP GLUCOSE BLOOD Inactive LEVEMIR FLEXTOUCH 100 UNIT/ML SC SOPN 35 units SC at 12-1pm, 35 units 12-1am LEVEMIR FLEXTOUCH 100 UNIT/ML SC SOPN INSULIN DETEMIR Inactive CORTISPORIN 3.5-22797-5 SOLN 4gtts in affected ear QID x 7 days CORTISPORIN 3.5-61547-7 SOLN 390850 [id number] Inactive ACYCLOVIR 400 MG TABS 1 po qd ACYCLOVIR 400 MG TABS 305968 ACYCLOVIR Inactive AZITHROMYCIN 250 MG TABS take 2 po day 1 then take1 po days 2-5 AZITHROMYCIN 250 MG TABS 2812136 AZITHROMYCIN Inactive AZITHROMYCIN 250 MG TABS 2 po qd x 1 day, then 1 po qd x 4 days AZITHROMYCIN 250 MG TABS 4904039 AZITHROMYCIN Inactive ACYCLOVIR 400 MG TABS 1 [...] E&M - 3141-9 123 [lb_av] Weight Measured blood pressure, diastolic - [...] E&M - 3141-9 126.5 [lb_av] Weight Measured Diagnostic Results Date Name Value Unit Range Description Chart Maintenance: outside labs added to flowsheet - Chemistry blood glucose 397 mg/dL creatinine, serum 0.50 mg/dL Lab Report: CBC, Comp. Metabolic Panel, Lipid Panel, HGBA1C - Chemistry sodium, serum 134 mmol/L 764-824 9871/03/16 carbon dioxide, venous blood 34.5 mmol/L 21.0-32.0 potassium, serum 4.6 mmol/L 3.5-5.2 chloride, serum 93 mmol/L 98-107 blood glucose 408 mg/dL 65-110 urea nitrogen, blood 3 mg/dL 7-18 creatinine, serum 0.58 mg/dL 0.55-1.30 alanine aminotransferase (SGPT), serum 11 U/L 12-78 aspartate aminotransferase (SGOT), serum 8 U/L 15-37 calcium, serum 9.2 mg/dL 8.5-10.1 bilirubin, serum, total 0.30 mg/dL 0.00-1.00 cholesterol, serum 195 mg/dL 127-319 7014/03/16 triglyceride, serum, fasting 138 mg/dL 30-200 HDL [...] count 429 10^3/MM^3 10*3/mm3 142-424 Lab Report: Comp. Metabolic Panel, Lipid Panel - Chemistry sodium, serum 130 mmol/L 436-524 7238/10/12 carbon dioxide, venous blood 28.1 mmol/L 21.0-32.0 potassium, serum 3.9 mmol/L 3.5-5.2 chloride, serum 91 mmol/L 98-107 blood glucose 547 mg/dL 65-110 urea nitrogen, blood 3 mg/dL 7-18 creatinine, serum 0.78 mg/dL 0.55-1.30 alanine aminotransferase (SGPT), serum 11 U/L 12-78 aspartate aminotransferase (SGOT), serum 7 U/L 15-37 calcium, serum 8.8 mg/dL 8.5-10.1 bilirubin, serum, total 0.30 mg/dL 0.00-1.00 cholesterol, serum 221 mg/dL 795-905 5729/10/12 triglyceride, serum, fasting 590 mg/dL 30-200 HDL cholesterol, serum 45 mg/dL 32-96 LDL cholesterol, serum 58 mg/dL 0-130 Lab Report: HGBA1C - Chemistry hemoglobin A1C, blood, as % of total hemoglobin 11.4 % 4.3-6.0 Lab Report: MICROALB/CREAT W/RATIO - Chemistry albumin/creatinine ratio, urine > 300 mg/g mg/g{creat} 0-29 Lab Report: MICROALB/CREAT W/RATIO - Lab microalbumin, urine 150 0-19 Lab Report: UADIP W/MICRO, AUTO, CBC W/DIFF, Comp. Metabolic Panel - Chemistry sodium, serum 133 mmol/L 071-067 4851/06/03 carbon dioxide, venous blood 33.4 mmol/L 21.0-32.0 [...] dipstick Negative Negative Lab Report: UADIP W/MICRO, AUTO, CBC [...] CBC W/DIFF, Comp. Metabolic Panel - Urinalysis urobilinogen, urine, semiquantitative (dipstick) 0.2 Normal leukocyte esterase, urine, by dipstick Negative Negative nitrite, urine, semiquantitative Negative Negative glucose, urine, semiquantitative 3+ Negative ketones, urine, by test strip Negative Negative bilirubin, urine Negative Negative urine color Yellow Colorless;Lightyellow;Straw;Yellow appearance, urine SlCloudy Clear specific gravity, urine 1.015 1.000-1.030 pH, urine, semiquantitative 5.5 5.0-8.5 Lab Report: [facility] [place] - Chemistry human chorionic gonadotropin, urine, qualitative (urine test) Negative Negative Office Visit: Diabetes Visit - Chemistry cholesterol, target level 200 mg/dL triglyceride, target level 200 mg/dL HDL cholesterol, serum, target level 35 mg/dL LDL target level 100 mg/dL cholesterol, target level 200 mg/dL triglyceride, target level 200 mg/dL HDL cholesterol, serum, target level 35 mg/dL LDL target level 100 mg/dL home glucose monitor utilized Yes cholesterol, target level 200 mg/dL triglyceride, target level 200 mg/dL HDL cholesterol, serum, target level 35 mg/dL LDL target level 100 mg/dL Encounters Code Encounter Date Provider Facility CPT-79624 Level 3 Est. Patient 16:21:23 CDT Celestine PEARCE [facility] CPT-05626 Level 3 Est. Patient 17:02:56 CDT Gabriel Hunt DO [facility] CPT-61354 Level 3 Est. Patient 14:46:22 CDT Da Romero APRN [facility] CPT-47866 Level 4 Est. Patient 13:55:20 CDT Ang Markham MD [facility] CPT-43257 Level 4 Est. Patient 16:10:09 CDT Celestine Bradley [facility] CPT-77490 Level 3 Est. Patient 13:51:24 CDT Ang Markham MD [facility] CPT-15506 Level 3 Est. Patient 18:42:[address] [facility] CPT-95909 Level 5 Est. Patient 14:40:14 CDT Celestine Bradley [facility] CPT-27143 Level 4 Est. Patient 14:36:17 CDT Ang Markham MD [facility] CPT-89353 Level 3 Est. Patient 11:13:47 [employer] Ang Markham MD [facility] CPT-67582 Level 3 Est. Patient 11:59:20 [employer] Gloria Dunbar [facility] CPT-19149 Level 3 Est. Patient 17:32:37 [employer] Gloria Dunbar [facility] CPT-01840 Level 4 Est. Patient 16:39:07 CDT Ang Markham MD [facility] CPT-75034 Level 3 Est. Patient 16:35:50 CDT Ang Markham MD [facility] CPT-59828 Level 4 Est. Patient 13:53:06 [employer] Ang Markham MD [facility] CPT-67242 Level 3 Est. Patient 08:58:08 [employer] Ang Markham MD [facility] CPT-45538 Level 3 Est. Patient 18:48:29 CDT Anthony Whitfield [facility] CPT-49148 Level 3 Est. Patient 12:16:59 CDT Gabriel Hunt DO [facility] CPT-16067 Level 3 Est. Patient 18:57:15 CDT Anthony Whitfield [facility] CPT-70509 Level 3 Est. Patient 13:59:22 [employer] Ang Markham MD [facility] CPT-26728 Level 4 Est. Patient 10:36:08 [employer] Ang Markham MD [facility] CPT-90128 Level 3 Est. Patient 16:27:02 CDT Eri Borges MD PhD [facility] CPT-94843 Level 3 Est. Patient 10:36:43 CDT Octaviano CARBONE [facility] CPT-83011 Level 4 New Patient 08:58:06 CDT Ang Markham MD [facility] Procedures Code Procedure Name Date Entry Date Standard Description CPT-04522 Abd compl w upright - XRAY USE ONLY 14:09:39 CDT 02/28 CPT-85702 Venipuncture Draw Fee 12:25:15 CDT CPT-28457 Knee 3V 16:48:40 CDT CPT-OV Office Visit 16:27:13 CDT CPT-OV Office Visit 16:21:19 CDT CPT-89157 Sono pelvis non OB uterus ovaries cervix 09:37:28 CDT
--- OUTSIDE RECORDS SUMMARY | 2018-12-22 01:18 | XMS REPORT | Clinical Summary ---
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] Abdominal pain 789.00 Active Ang Markham MD Abdominal pain, unspecified site DEPRESSION ICD-311 Inactive Ang Markham MD AMENORRHEA [...] Markham MD UTI ICD-599.0 Nathan Markham MD Diabetes mellitus ICD-250.00 Inactive Ang Markham MD Vaginal discharge ICD-623.5 Nathan Markham MD Amenorrhea ICD-626.0 Nathan Markham MD Cellulitis, ankle, left ICD-682.6 Inactive Ang Markham MD Medication List Medication Instructions Start Date Stop Date Generic Name NDC Status Provider Patient Instruction DOXEPIN HCL 10 MG CAP 1 tablet nightly for the itch DOXEPIN HCL 37116419128 Active Gabriel Rachel Hunt Active COLACE 100 MG CAP 1 po daily DOCUSATE SODIUM 60999363124 Active Gabriel Hunt DO Active NOVOLOG FLEXPEN 100 UNIT/ML SOPN Take 20 units TID with meals, plus 2u/50 for blood sugars above 150. Ratio vs. Carbs INSULIN ASPART 42430705702 Active Gabriel Hunt DO Active BD PEN NEEDLE DINESH U/F 32G X 4 MM MISC 5 a day INSULIN PEN NEEDLE 66286662438 Active Maliheh Ziglari AMPOULE EXAMINER Active LEVEMIR FLEXTOUCH 100 UNIT/ML SC SOPN 30 units SC at 12-1pm, 30 units 12-1am INSULIN DETEMIR 87662311574 Active Maliheh Ziglari AMPOULE EXAMINER Active EMBRACE BLOOD GLUCOSE TEST STRP Test blood sugars 4 times daily and PRN 08/05 GLUCOSE BLOOD 18999705579 No Longer Active Maliheh Ziglari AMPOULE EXAMINER Active TRUEPLUS LANCETS 30G MISC 4 a day LANCETS 79718787607 Active Maliheh Ziglari AMPOULE EXAMINER Active TRUETEST TEST STRP check blood sugars 4x/day GLUCOSE BLOOD 31982637333 Active Maliheh Ziglari AMPOULE EXAMINER Active TRUERESULT BLOOD GLUCOSE W/DEVICE KIT check blood sugars 4x a day BLOOD GLUCOSE MONITORING SUPPL 84758490484 Active Maliheh Ziglari AMPOULE EXAMINER Active LISINOPRIL 5 MG TABS 1 po qd LISINOPRIL 76863743058 Active Ang Markham MD Active PAXIL 20 MG TAB 1 tablet by mouth daily PAROXETINE HCL 18998926558 Active Ang Markham MD Active GENTAMICIN SULFATE 0.1 % EXT OINT Apply to open sores once a day. GENTAMICIN SULFATE 33641359767 No Longer Active Ang Markham MD Active ZOLPIDEM TARTRATE 10 MG TABS 1 po qHS PRN Insomnia ZOLPIDEM TARTRATE 56283515625 Active Ang Markham MD Active BACTRIM DS 800-160 MG TAB 1 tab by mouth twice daily TRIMETHOPRIM-SULFAMETHOXAZOLE 99509655500 No Longer Active Gloria Dunbar PLATER SUPERVISOR Active LEVEMIR FLEXPEN 100 UNIT/ML SOLN 40 units SC at bedtime INSULIN DETEMIR No Longer Active Susan Arellano RMA Active INSUPEN ULTRAFIN 31G X 6 MM MISC Use with insulin qid. DX: E11.9 INSULIN PEN NEEDLE 00801364727 Active Ang Markham MD Active ZOLOFT 100 MG TAB 1 po qHS SERTRALINE HCL 71962820002 No Longer Active Ang Markham MD Active MELOXICAM 15 MG TABS 1 po qd PRN Knee Pain MELOXICAM 93858522552 No Longer Active Ang Markham MD Active LIPITOR 40 MG TAB 1 po qHS ATORVASTATIN CALCIUM 81046103546 Active Ang Markham MD Active METFORMIN HCL 1000 MG TABS 1 tablet by mouth twice daily METFORMIN HCL 39220282462 Active nAg Markham MD Active CYCLOBENZAPRINE HCL 5 MG TABS 1 po qHS PRN Muscle pain CYCLOBENZAPRINE HCL 82653158058 Active Ang Markham MD Active COLACE 100 MG CAP 1 po BID PRN Constipation DOCUSATE SODIUM 07040997206 No Longer Active Ang Markham MD Active HYDROXYZINE HCL 25 MG TAB 1 TID PRN nerves HYDROXYZINE HCL 12688008373 Active Ang Markham MD Active IBUPROFEN 800 MG TABS 1 tab every 8 hours as needed for pain 2013 IBUPROFEN 34276194802 No Longer Active Ang Markham MD Active NITROFURANTOIN MACROCRYSTAL 100 MG CAPS 1 capsule PO bid x 7 days NITROFURANTOIN MACROCRYSTAL 52916218377 No Longer Active Ang Markham MD Active DIFLUCAN 150 MG TAB 1 qODay x 2 doses FLUCONAZOLE 50438405208 No Longer Active Da Romero PLATER SUPERVISOR Active CEFTIN 500 MG TAB 1 tablet by mouth twice daily for 7 days 07/24 CEFUROXIME AXETIL 04178207316 No Longer Active Anthony CARBONE Active ZOLOFT 50 MG TAB 1 tablet by mouth daily SERTRALINE HCL 23550080714 No Longer Active Anthony CARBONE Active ANUSOL-HC 2.5 % CREAM apply as needed HYDROCORTISONE (RECTAL) 32189995694 No Longer Active Anthony CARBONE Active COLACE 100 MG CAP 1 tab PO BID DOCUSATE SODIUM 17093176176 No Longer Active Anthony CARBONE Active TRINESSA (28) 0.18/0.215/0.25 MG-35 MCG TABS 1 po qd as directed NORGESTIM-ETH ESTRAD TRIPHASIC 26143222923 No Longer Active Anthony CARBONE Active [facility] MELATONIN 5 MG TABS 1-2 po qHS PRN Insomnia MELATONIN 57469149813 No Longer Active Anthony CARBONE Active ACYCLOVIR 400 MG TABS ACYCLOVIR 20607541933 No Longer Active Ang Markham MD Active HYDROXYZINE HCL 25 MG TABS 1 tab PO tid PRN itching HYDROXYZINE HCL 06449582072 No Longer Active Ang Markham MD Active DIFLUCAN 150 MG TAB 1 qODay x 2 doses FLUCONAZOLE 95369227895 No Longer Active Da Romero APRN Active ACYCLOVIR 400 MG TABS 1 pill twice daily ACYCLOVIR 25773693284 No Longer Active Da Romero APRN Active AZITHROMYCIN 250 MG TABS 2 po qd x 1 day, then 1 po qd x 4 days AZITHROMYCIN 89454292094 No Longer Active Eri Borges MD PhD Active AZITHROMYCIN 250 MG TABS take 2 po day 1 then take1 po days 2-5 AZITHROMYCIN 68404507811 No Longer Active Octaviano CARBONE Active ACYCLOVIR 400 MG TABS 1 po qd ACYCLOVIR 99562090717 No Longer Active Ang Markham MD Active PROZAC 40 MG CAPS 1 cap by mouth at bedtime FLUOXETINE HCL 44507415380 No Longer Active Ang Markham MD Active HYDROXYZINE HCL 25 MG TABS 1 tab PO tid PRN itching HYDROXYZINE HCL 25 MG TABS 499205 HYDROXYZINE HCL Inactive [facility] MELATONIN 5 MG TABS 1-2 po qHS PRN Insomnia [facility] MELATONIN 5 MG TABS 363620 MELATONIN Inactive TRINESSA (28) 0.18/0.215/0.25 MG-35 MCG TABS 1 po qd as directed TRINESSA (28) 0.18/0.215/0.25 MG-35 MCG TABS 896795 NORGESTIM-ETH ESTRAD TRIPHASIC Inactive COLACE 100 MG CAP 1 tab PO BID COLACE 100 MG CAP 4751616 DOCUSATE SODIUM Inactive ANUSOL-HC 2.5 % CREAM apply as needed ANUSOL-HC 2.5 % CREAM 493907 HYDROCORTISONE (RECTAL) Inactive ZOLOFT 50 MG TAB 1 tablet by mouth daily ZOLOFT 50 MG TAB 811999 SERTRALINE HCL Inactive CEFTIN 500 MG TAB 1 tablet by mouth twice daily for 7 days 07/24 CEFTIN 500 MG TAB 486981 CEFUROXIME AXETIL Inactive NITROFURANTOIN MACROCRYSTAL 100 MG CAPS 1 capsule PO bid x 7 days NITROFURANTOIN MACROCRYSTAL 100 MG CAPS 9566640 NITROFURANTOIN MACROCRYSTAL Inactive IBUPROFEN 800 MG TABS 1 tab every 8 hours as needed for pain 2013 IBUPROFEN 800 MG TABS 466827 IBUPROFEN Inactive COLACE 100 MG CAP 1 po BID PRN Constipation COLACE 100 MG CAP 4916622 DOCUSATE SODIUM Inactive MELOXICAM 15 MG TABS 1 po qd PRN Knee Pain MELOXICAM 15 MG TABS 096925 MELOXICAM Inactive LEVEMIR FLEXPEN 100 UNIT/ML SOLN 40 units SC at bedtime LEVEMIR FLEXPEN 100 UNIT/ML SOLN INSULIN DETEMIR Inactive GENTAMICIN SULFATE 0.1 % EXT OINT Apply to open sores once a day. GENTAMICIN SULFATE 0.1 % EXT OINT 508606 GENTAMICIN SULFATE Inactive EMBRACE BLOOD GLUCOSE TEST STRP Test blood sugars 4 times daily and PRN 08/05 EMBRACE BLOOD GLUCOSE TEST STRP GLUCOSE BLOOD Inactive ACYCLOVIR 400 MG TABS 1 po qd ACYCLOVIR 400 MG TABS 19720928 ACYCLOVIR Inactive AZITHROMYCIN 250 MG TABS take 2 po day 1 then take1 po days 2-5 AZITHROMYCIN 250 MG TABS 0348802 AZITHROMYCIN Inactive AZITHROMYCIN 250 MG TABS 2 po qd x 1 day, then 1 po qd x 4 days AZITHROMYCIN 250 MG TABS 8435433 AZITHROMYCIN Inactive ACYCLOVIR 400 MG TABS 1 pill twice daily ACYCLOVIR 400 MG TABS 19720928 ACYCLOVIR Inactive DIFLUCAN 150 MG TAB 1 qODay x 2 doses DIFLUCAN 150 MG TAB 377821 FLUCONAZOLE Inactive ACYCLOVIR 400 MG TABS ACYCLOVIR 400 MG TABS 19720928 ACYCLOVIR Inactive DIFLUCAN 150 MG TAB 1 qODay x 2 doses DIFLUCAN 150 MG TAB 086353 FLUCONAZOLE Inactive BACTRIM DS 800-160 MG TAB 1 tab by mouth twice daily BACTRIM DS 800-160 MG TAB 380047 TRIMETHOPRIM-SULFAMETHOXAZOLE Inactive Advance Directives Directive Description Start Date PERMISSION TO SHARE Vital Signs Date Name Value Unit Range Description blood pressure, diastolic - 8462-4 69 mm[Hg] [...] HGBA1C - Chemistry sodium, serum 134 mmol/L 863-803 1077/03/16 carbon dioxide, venous blood 34.5 mmol/L 21.0-32.0 potassium, serum 4.6 mmol/L 3.5-5.2 chloride, serum 93 mmol/L 98-107 blood glucose 408 mg/dL 65-110 urea nitrogen, blood 3 mg/dL 7-18 creatinine, serum 0.58 mg/dL 0.55-1.30 alanine aminotransferase (SGPT), serum 11 U/L 12-78 aspartate aminotransferase (SGOT), serum 8 U/L 15-37 calcium, serum 9.2 mg/dL 8.5-10.1 bilirubin, serum, total 0.30 mg/dL 0.00-1.00 cholesterol, serum 195 mg/dL 128-957 8569/03/16 triglyceride, serum, fasting 138 mg/dL 30-200 HDL [...] CBC W/DIFF, Comp. Metabolic Panel - Chemistry protein, total urine random Negative mg/dL Negative RBC, urine, dipstick Negative Negative sodium, serum 133 mmol/L 747-412 0916/06/03 carbon dioxide, venous blood 33.4 mmol/L 21.0-32.0 potassium, serum 4.3 mmol/L 3.5-5.2 chloride, serum 97 mmol/L 98-107 blood glucose 450 mg/dL 65-110 urea nitrogen, blood 9 mg/dL 7-18 creatinine, serum 0.68 mg/dL 0.55-1.30 alanine aminotransferase (SGPT), serum 18 U/L 12-78 aspartate aminotransferase (SGOT), serum 15 U/L 15-37 calcium, serum 9.2 mg/dL 8.5-10.1 bilirubin, serum, total 0.20 mg/dL 0.00-1.00 Lab Report: UADIP W/MICRO, AUTO, CBC W/DIFF, [...] pH, urine, semiquantitative 5.5 5.0-8.5 Lab Report: [facility] [place] Chemistry human chorionic gonadotropin, urine, qualitative (urine test) Negative Negative Office Visit: Diabetes Visit - Chemistry cholesterol, target level 200 mg/dL triglyceride, target level 200 mg/dL HDL cholesterol, serum, target level 35 mg/dL LDL target level 100 mg/dL home glucose monitor utilized Yes Encounters Code Encounter Date Provider Facility CPT-83391 Level 3 Est. Patient 13:51:24 CDT Ang Markham MD [facility] CPT-58593 Level 3 Est. Patient 18:42:15 CDT Gabriel Hunt DO [facility] CPT-81268 Level 5 Est. Patient 14:40:14 CDT Celestine PEARCE [facility] CPT-41340 Level 4 Est. Patient 14:36:17 CDT Ang Markham MD [facility] CPT-10814 Level 3 Est. Patient 11:13:47 ORTHOPEDIC TECH Ang Markham MD [facility] CPT-80934 Level 3 Est. Patient 11:59:20 ORTHOPEDIC TECH Gloria Dunbar [facility] CPT-95276 Level 3 Est. Patient 17:32:37 ORTHOPEDIC TECH Gloria Dunbar [facility] CPT-96634 Level 4 Est. Patient 16:39:07 CDT Ang Markham MD [facility] CPT-94331 Level 3 Est. Patient 16:35:50 CDT Ang Markham MD [facility] CPT-34203 Level 4 Est. Patient 13:53:06 ORTHOPEDIC TECH Ang Markham MD [facility] CPT-62340 Level 3 Est. Patient 08:58:08 ORTHOPEDIC TECH Ang Markham MD [facility] CPT-58078 Level 3 Est. Patient 18:48:29 CDT Anthony Whitfield [facility] CPT-00402 Level 3 Est. Patient 12:16:59 CDT Gabriel Hunt DO [facility] CPT-29586 Level 3 Est. Patient 18:57:15 CDT Anthony Whitfield [facility] CPT-33200 Level 3 Est. Patient 13:59:22 ORTHOPEDIC TECH Ang Markham MD [facility] CPT-22871 Level 4 Est. Patient 10:36:08 ORTHOPEDIC TECH Ang Markham MD [facility] CPT-63720 Level 3 Est. Patient 16:27:02 CDT Eri Borges MD PhD [facility] CPT-15356 Level 3 Est. Patient 10:36:43 CDT Octaviano Dempsey [facility] CPT-22773 Level 4 New Patient 08:58:06 CDT Ang Markham MD [facility] Procedures Code Procedure Name Date Entry Date Standard Description CPT-26703 Abd compl w upright - XRAY USE ONLY 14:09:39 CDT 02/28 CPT-80898 Venipuncture Draw Fee 12:25:15 CDT CPT-69880 Knee 3V 16:48:40 CDT CPT-OV Office Visit 16:27:13 CDT CPT-OV Office Visit 16:21:19 CDT CPT-01194 Sono pelvis non OB uterus ovaries cervix 09:37:28 CDT
--- OUTSIDE RECORDS SUMMARY | 2018-12-22 01:19 | XMS REPORT | Clinical Summary ---
Author Author Admin, QIE Organization [facility] Address Unknown Phone Unavailable Allergies, Adverse Reactions, [...] I, with hyperglycemia 250.01 Active 2015 Celestine MENDEZP Diabetes mellitus without mention of complication, type I [juvenile type], not stated as uncontrolled Hyperlipidemia 272.4 Active Ang Markham MD Other and unspecified hyperlipidemia Hematochezia 578.1 Active Jisteph Romero ONLINE MARKETER Blood in stool Nausea 787.02 Active Jillina Franayal ONLINE MARKETER Nausea alone Otitis externa, acute, left 380.12 Active Gabriel Hunt DO Acute swimmers' ear DEPRESSION ICD-311 Inactive Ang Markham MD Diabetes mellitus ICD-250.00 Inactive Ang Markham MD AMENORRHEA ICD-626.0 Inactive Eri Boregs MD PhD ABDOMINAL PAIN RIGHT LOWER QUADRANT [...] ankle, left ICD-682.6 Inactive Ang Markham MD Diabetes mellitus, type I, with hypoglycemia ICD-250.81 Inactive Ang Markham MD [facility] use 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 ICD-V58.67 Inactive Ang Markham MD Medication List Medication Instructions Start Date Stop Date Generic Name NDC Status Provider Patient Instruction CORTISPORIN 3.5-86167-5 SOLN 4gtts in affected ear QID x 7 days [id number] 68270107992 Active Gabriel Hunt DO Active LEVEMIR FLEXTOUCH 100 UNIT/ML SC SOPN 35 units SC at 12-1pm, 35 units 12-1am INSULIN DETEMIR 69664485394 Active Ang Markham MD Active DOXEPIN HCL 10 MG CAP 1 tablet nightly for the itch DOXEPIN HCL 62353902929 Active Gabriel Hunt DO Active COLACE 100 MG CAP 1 po daily DOCUSATE SODIUM 66433456888 Wiley Hunt DO Active NOVOLOG FLEXPEN 100 UNIT/ML SOPN Take 20 units TID with meals, plus 2u/50 for blood sugars above 150. Ratio vs. Carbs INSULIN ASPART 19523095499 Active Gabriel Hunt DO Active BD PEN NEEDLE DINESH U/F 32G X 4 MM MISC 5 a day INSULIN PEN NEEDLE 40029551932 Active Celestine Sierraglari ELECTRONIC SCALE SUBASSEMBLER Active EMBRACE BLOOD GLUCOSE TEST STRP Test blood sugars 4 times daily and PRN 08/05 GLUCOSE BLOOD 57025636093 No Longer Active Celestine Sierraglari ELECTRONIC SCALE SUBASSEMBLER Active TRUEPLUS LANCETS 30G MISC 4 a day LANCETS 89666444637 Active Celestine Sierraglari ELECTRONIC SCALE SUBASSEMBLER Active TRUETEST TEST STRP check blood sugars 4x/day GLUCOSE BLOOD 53859945876 Active Celsetine Sierraglari ELECTRONIC SCALE SUBASSEMBLER Active TRUERESULT BLOOD GLUCOSE W/DEVICE KIT check blood sugars 4x a day BLOOD GLUCOSE MONITORING SUPPL 80134553876 Active Celestine Sierraglari ELECTRONIC SCALE SUBASSEMBLER Active LISINOPRIL 5 MG TABS 1 po qd LISINOPRIL 73732428333 Active Ang Markham MD Active PAXIL 20 MG TAB 1 tablet by mouth daily PAROXETINE HCL 58764781560 Active Ang Markham MD Active GENTAMICIN SULFATE 0.1 % EXT OINT Apply to open sores once a day. GENTAMICIN SULFATE 80572490321 No Longer Active Ang Markham MD Active ZOLPIDEM TARTRATE 10 MG TABS 1 po qHS PRN Insomnia ZOLPIDEM TARTRATE 29934948618 Active Ang Markham MD Active BACTRIM DS 800-160 MG TAB 1 tab by mouth twice daily TRIMETHOPRIM-SULFAMETHOXAZOLE 16975417178 No Longer Active Gloria Dunbar ONLINE MARKETER Active LEVEMIR FLEXPEN 100 UNIT/ML SOLN 40 units SC at bedtime INSULIN DETEMIR No Longer Active Susan Arellano RMA Active INSUPEN ULTRAFIN 31G X 6 MM MISC Use with insulin qid. DX: E11.9 INSULIN PEN NEEDLE 74105336603 Active Ang Markham MD Active ZOLOFT 100 MG TAB 1 po qHS SERTRALINE HCL 30712858091 No Longer Active Ang Markham MD Active MELOXICAM 15 MG TABS 1 po qd PRN Knee Pain MELOXICAM 73629415001 No Longer Active Ang Markham MD Active LIPITOR 40 MG TAB 1 po qHS ATORVASTATIN CALCIUM 26368820582 Active Ang Markham MD Active METFORMIN HCL 1000 MG TABS 1 tablet by mouth twice daily METFORMIN HCL 81293123393 Active Ang Markham MD Active CYCLOBENZAPRINE HCL 5 MG TABS 1 po qHS PRN Muscle pain CYCLOBENZAPRINE HCL 59058683640 Active Ang Markham MD Active COLACE 100 MG CAP 1 po BID PRN Constipation DOCUSATE SODIUM 02899334528 No Longer Active Ang Markham MD Active HYDROXYZINE HCL 25 MG TAB 1 TID PRN nerves HYDROXYZINE HCL 32900250864 Active Ang Markham MD Active IBUPROFEN 800 MG TABS 1 tab every 8 hours as needed for pain 2013 IBUPROFEN 97357454570 No Longer Active Ang Markham MD Active NITROFURANTOIN MACROCRYSTAL 100 MG CAPS 1 capsule PO bid x 7 days NITROFURANTOIN MACROCRYSTAL 16878665311 No Longer Active Ang Markham MD Active DIFLUCAN 150 MG TAB 1 qODay x 2 doses FLUCONAZOLE 30584951636 No Longer Active Da Romero APRN Active CEFTIN 500 MG TAB 1 tablet by mouth twice daily for 7 days 07/24 CEFUROXIME AXETIL 51612396709 No Longer Active Anthony CARBONE Active ZOLOFT 50 MG TAB 1 tablet by mouth daily SERTRALINE HCL 01424545631 No Longer Active Anthony CARBONE Active ANUSOL-HC 2.5 % CREAM apply as needed HYDROCORTISONE (RECTAL) 04501437831 No Longer Active Anthony CARBONE Active COLACE 100 MG CAP 1 tab PO BID DOCUSATE SODIUM 67888914947 No Longer Active Anthony CARBONE Active TRINESSA (28) 0.18/0.215/0.25 MG-35 MCG TABS 1 po qd as directed NORGESTIM-ETH ESTRAD TRIPHASIC 65587200986 No Longer Active Anthony CARBONE Active [facility] MELATONIN 5 MG TABS 1-2 po qHS PRN Insomnia MELATONIN 80581553525 No Longer Active Anthony CARBONE Active ACYCLOVIR 400 MG TABS ACYCLOVIR 64892711887 No Longer Active Ang Markham MD Active HYDROXYZINE HCL 25 MG TABS 1 tab PO tid PRN itching HYDROXYZINE HCL 31164077111 No Longer Active Ang Markham MD Active DIFLUCAN 150 MG TAB 1 qODay x 2 doses FLUCONAZOLE 70266500072 No Longer Active Jillina Frazell ONLINE MARKETER Active ACYCLOVIR 400 MG TABS 1 pill twice daily ACYCLOVIR 29317239559 No Longer Active Jillina Frazell ONLINE MARKETER Active AZITHROMYCIN 250 MG TABS 2 po qd x 1 day, then 1 po qd x 4 days AZITHROMYCIN 77962743311 No Longer Active Eri Borges MD PhD Active AZITHROMYCIN 250 MG TABS take 2 po day 1 then take1 po days 2-5 AZITHROMYCIN 26111529758 No Longer Active Octaviano CARBONE Active ACYCLOVIR 400 MG TABS 1 po qd ACYCLOVIR 37058754251 No Longer Active Ang Markham MD Active PROZAC 40 MG CAPS 1 cap by mouth at bedtime FLUOXETINE HCL 42847935906 No Longer Active Ang Markham MD Active HYDROXYZINE HCL 25 MG TABS 1 tab PO tid PRN itching HYDROXYZINE HCL 25 MG TABS 345013 HYDROXYZINE HCL Inactive [facility] MELATONIN 5 MG TABS 1-2 po qHS PRN Insomnia [facility] MELATONIN 5 MG TABS 880586 MELATONIN Inactive TRINESSA (28) 0.18/0.215/0.25 MG-35 MCG TABS 1 po qd as directed TRINESSA (28) 0.18/0.215/0.25 MG-35 MCG TABS 245265 NORGESTIM-ETH ESTRAD TRIPHASIC Inactive COLACE 100 MG CAP 1 tab PO BID COLACE 100 MG CAP 5086049 DOCUSATE SODIUM Inactive ANUSOL-HC 2.5 % CREAM apply as needed ANUSOL-HC 2.5 % CREAM 570057 HYDROCORTISONE (RECTAL) Inactive ZOLOFT 50 MG TAB 1 tablet by mouth daily ZOLOFT 50 MG TAB 267191 SERTRALINE HCL Inactive CEFTIN 500 MG TAB 1 tablet by mouth twice daily for 7 days 07/24 CEFTIN 500 MG TAB 162461 CEFUROXIME AXETIL Inactive NITROFURANTOIN MACROCRYSTAL 100 MG CAPS 1 capsule PO bid x 7 days NITROFURANTOIN MACROCRYSTAL 100 MG CAPS 3612158 NITROFURANTOIN MACROCRYSTAL Inactive IBUPROFEN 800 MG TABS 1 tab every 8 hours as needed for pain 2013 IBUPROFEN 800 MG TABS 786173 IBUPROFEN Inactive COLACE 100 MG CAP 1 po BID PRN Constipation COLACE 100 MG CAP 9947669 DOCUSATE SODIUM Inactive MELOXICAM 15 MG TABS 1 po qd PRN Knee Pain MELOXICAM 15 MG TABS 401122 MELOXICAM Inactive LEVEMIR FLEXPEN 100 UNIT/ML SOLN 40 units SC at bedtime LEVEMIR FLEXPEN 100 UNIT/ML SOLN INSULIN DETEMIR Inactive GENTAMICIN SULFATE 0.1 % EXT OINT Apply to open sores once a day. GENTAMICIN SULFATE 0.1 % EXT OINT 664594 GENTAMICIN SULFATE Inactive EMBRACE BLOOD GLUCOSE TEST STRP Test blood sugars 4 times daily and PRN 08/05 EMBRACE BLOOD GLUCOSE TEST STRP GLUCOSE BLOOD Inactive ACYCLOVIR 400 MG TABS 1 po qd ACYCLOVIR 400 MG TABS 19720928 ACYCLOVIR Inactive AZITHROMYCIN 250 MG TABS take 2 po day 1 then take1 po days 2-5 AZITHROMYCIN 250 MG TABS 8663811 AZITHROMYCIN Inactive AZITHROMYCIN 250 MG TABS 2 po qd x 1 day, then 1 po qd x 4 days AZITHROMYCIN 250 MG TABS 4425687 AZITHROMYCIN Inactive ACYCLOVIR 400 MG TABS 1 pill twice daily ACYCLOVIR 400 MG TABS 19720928 ACYCLOVIR Inactive DIFLUCAN 150 MG TAB 1 qODay x 2 doses DIFLUCAN 150 MG TAB 19760606 FLUCONAZOLE Inactive ACYCLOVIR 400 MG TABS ACYCLOVIR 400 MG TABS 19720928 ACYCLOVIR Inactive DIFLUCAN 150 MG TAB 1 qODay x 2 doses DIFLUCAN 150 MG TAB 436476 FLUCONAZOLE Inactive BACTRIM DS 800-160 MG TAB 1 tab by mouth twice daily BACTRIM DS 800-160 MG TAB 965007 TRIMETHOPRIM-SULFAMETHOXAZOLE Inactive Advance Directives Directive Description Start Date PERMISSION TO SHARE Vital Signs Date Name Value Unit Range Description blood pressure, diastolic - 8462-4 71 mm[Hg] [...] HGBA1C - Chemistry sodium, serum 134 mmol/L 901-502 2062/03/16 carbon dioxide, venous blood 34.5 mmol/L 21.0-32.0 potassium, serum 4.6 mmol/L 3.5-5.2 chloride, serum 93 mmol/L 98-107 blood glucose 408 mg/dL 65-110 urea nitrogen, blood 3 mg/dL 7-18 creatinine, serum 0.58 mg/dL 0.55-1.30 alanine aminotransferase (SGPT), serum 11 U/L 12-78 aspartate aminotransferase (SGOT), serum 8 U/L 15-37 calcium, serum 9.2 mg/dL 8.5-10.1 bilirubin, serum, total 0.30 mg/dL 0.00-1.00 cholesterol, serum 195 mg/dL 120-412 5643/03/16 triglyceride, serum, fasting 138 mg/dL 30-200 HDL [...] Panel - Chemistry sodium, serum 133 mmol/L 920-102 8355/06/03 carbon dioxide, venous blood 33.4 mmol/L 21.0-32.0 [...] pH, urine, semiquantitative 5.5 5.0-8.5 Lab Report: [facility] [place] - Chemistry human chorionic gonadotropin, urine, qualitative [...] Yes Encounters Code Encounter Date Provider Facility CPT-60207 Level 3 Est. Patient 17:02:56 CDT Gabriel uHnt [facility] CPT-64170 Level 3 Est. Patient 14:46:22 CDT Da Romero [facility] CPT-50080 Level 4 Est. Patient 13:55:20 CDT Ang Markham MD [facility] CPT-09762 Level 4 Est. Patient 16:10:09 CDT Celestine Huerta [facility] CPT-45208 Level 3 Est. Patient 13:51:24 CDT Ang Markham MD [facility] CPT-43493 Level 3 Est. Patient 18:42:15 CDT Gabriel Hunt [facility] CPT-69508 Level 5 Est. Patient 14:40:14 CDT Celestine Huerta [facility] CPT-45403 Level 4 Est. Patient 14:36:17 CDT Ang Markham MD [facility] CPT-43076 Level 3 Est. Patient 11:13:47 LEAD SOFTWARE ARCHITECT Ang Markham MD [facility] CPT-75387 Level 3 Est. Patient 11:59:20 LEAD SOFTWARE ARCHITECT Gloria Dunbar [facility] CPT-89797 Level 3 Est. Patient 17:32:37 LEAD SOFTWARE ARCHITECT Gloria Dunbar [facility] CPT-35490 Level 4 Est. Patient 16:39:07 CDT Ang Markham MD [facility] CPT-73474 Level 3 Est. Patient 16:35:50 CDT Ang Markham MD [facility] CPT-38237 Level 4 Est. Patient 13:53:06 LEAD SOFTWARE ARCHITECT Ang Markham MD [facility] CPT-39302 Level 3 Est. Patient 08:58:08 LEAD SOFTWARE ARCHITECT Ang Markham MD [facility] CPT-49116 Level 3 Est. Patient 18:48:29 CDT Anthony Whitfield [facility] CPT-64837 Level 3 Est. Patient 12:16:59 CDT Gabriel Hunt DO [facility] CPT-19456 Level 3 Est. Patient 18:57:15 CDT Anthony Whitfield [facility] CPT-88690 Level 3 Est. Patient 13:59:22 LEAD SOFTWARE ARCHITECT Ang Markham MD [facility] CPT-12320 Level 4 Est. Patient 10:36:08 LEAD SOFTWARE ARCHITECT Ang Markham MD [facility] CPT-69301 Level 3 Est. Patient 16:27:02 CDT Eir Borges MD, PhD [facility] CPT-30314 Level 3 Est. Patient 10:36:43 CDT Octaviano Wilkersnojj [facility] CPT-00000 Level 4 New Patient 08:58:06 CDT Ang Markham MD [facility] Procedures Code Procedure Name Date Entry Date Standard Description CPT-19492 Abd compl w upright - XRAY USE ONLY 14:09:39 CDT 02/28 CPT-50210 Venipuncture Draw Fee 12:25:15 CDT CPT-86055 Knee 3V 16:48:40 CDT CPT-OV Office Visit 16:27:13 CDT CPT-OV Office Visit 16:21:19 CDT CPT-14153 Sono pelvis non OB uterus ovaries cervix 09:37:28 CDT
--- OUTSIDE RECORDS SUMMARY | 2018-12-22 01:20 | XMS REPORT | Clinical Summary ---
Author Author Admin, E Organization [facility] Address Unknown Phone Unavailable Allergies, Adverse [...] 462 Active Shreya Velazquez APRN Acute pharyngitis DEPRESSION ICD-311 Inactive Ang Markham MD Diabetes [...] Nathan Markham MD CANDIDAL VAGINITIS ICD-112.1 Nathan Mrakham MD Joint crepitus, knee ICD-719.66 Inactive Ang [...] I, with hypoglycemia ICD-250.81 Nathan Markham MD mill set up use 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 ICD-V58.67 Nathan Markham MD Abdominal pain ICD-789.00 Nathan Markham MD Hematochezia ICD-578.1 Nathan Markham MD Nausea ICD-787.02 Nathan Markham MD 06/26 Otitis externa, acute, left ICD-380.12 Nathan Markham MD Medication List Medication Instructions Start Date Stop Date Generic Name NDC Status Provider Patient Instruction LEVAQUIN 500 MG TABS 1 daily for infection LEVOFLOXACIN 47176579472 Active Shreya Caroline VIDEO PLAYER MECHANIC Active GEMFIBROZIL 600 MG TABS 1 po BID GEMFIBROZIL 40045191469 Active Ang Markham MD Active CORTISPORIN 3.5-20795-0 SOLN 4gtts in affected ear QID x 7 days [id number] 51143201600 No Longer Active Ang Markham MD Active TRESIBA FLEXTOUCH 200 UNIT/ML SC SOPN Take 70 units daily at mid-night to 1 am. INSULIN DEGLUDEC 62371531965 Active Celestine PEARCE Active LEVEMIR FLEXTOUCH 100 UNIT/ML SC SOPN 35 units SC at 12-1pm, 35 units 12-1am INSULIN DETEMIR 42836638676 No Longer Active Celestine PEARCE Active REGLAN 10 MG TAB 0.5 po TID 30min prior to meals METOCLOPRAMIDE HCL 30659952297 Active Ang Markham MD Active ZANTAC 150 MG TAB 1 po BID RANITIDINE HCL 31736788344 Active Ang Markham MD Active DOXEPIN HCL 10 MG CAP 1 tablet nightly for the itch DOXEPIN HCL 83684754265 Active Ang Markham MD Active COLACE 100 MG CAP 1 po daily DOCUSATE SODIUM 16744330164 Active Gabriel Hunt DO Active NOVOLOG FLEXPEN 100 UNIT/ML SOPN Take 20 units TID with meals, plus 2u/50 for blood sugars above 150. Ratio vs. Carbs INSULIN ASPART 35413055320 Active Gabriel Hunt DO Active BD PEN NEEDLE DINESH U/F 32G X 4 MM MISC 5 a day INSULIN PEN NEEDLE 80312761845 Active Celestine PEARCE Active EMBRACE BLOOD GLUCOSE TEST STRP Test blood sugars 4 times daily and PRN 08/05 GLUCOSE BLOOD 44021781376 No Longer Active Celestine Sierraglari TEAM LEADER SURGERY Active TRUEPLUS LANCETS 30G MISC 4 a day LANCETS 68456001373 Active Celestine Hoganari TEAM LEADER SURGERY Active TRUETEST TEST STRP check blood sugars 4x/day GLUCOSE BLOOD 50991321777 Active Celestine Sierraglari TEAM LEADER SURGERY Active TRUERESULT BLOOD GLUCOSE W/DEVICE KIT check blood sugars 4x a day BLOOD GLUCOSE MONITORING SUPPL 89999365286 Active Celestine Sierraglari TEAM LEADER SURGERY Active LISINOPRIL 5 MG TABS 1 po qd LISINOPRIL 49386319768 Active Ang Markahm MD Active PAXIL 20 MG TAB 1 tablet by mouth daily PAROXETINE HCL 15719276482 Active Ang Markham MD Active GENTAMICIN SULFATE 0.1 % EXT OINT Apply to open sores once a day. GENTAMICIN SULFATE 57047000249 No Longer Active Ang Markham MD Active ZOLPIDEM TARTRATE 10 MG TABS 1 po qHS PRN Insomnia ZOLPIDEM TARTRATE 31450960088 Active Ang Markham MD Active BACTRIM DS 800-160 MG TAB 1 tab by mouth twice daily TRIMETHOPRIM-SULFAMETHOXAZOLE 39411467293 No Longer Active Gloria Yotree VIDEO PLAYER MECHANIC Active LEVEMIR FLEXPEN 100 UNIT/ML SOLN 40 units SC at bedtime INSULIN DETEMIR No Longer Active Susanbetty Arellano RMA Active INSUPEN ULTRAFIN 31G X 6 MM MISC Use with insulin qid. DX: E11.9 INSULIN PEN NEEDLE 86423308146 Active Ang Markham MD Active ZOLOFT 100 MG TAB 1 po qHS SERTRALINE HCL 12617555129 No Longer Active Ang Markham MD Active MELOXICAM 15 MG TABS 1 po qd PRN Knee Pain MELOXICAM 98043645173 No Longer Active Ang Markham MD Active LIPITOR 40 MG TAB 1 po qHS ATORVASTATIN CALCIUM 81073861962 Active Ang Markham MD Active METFORMIN HCL 1000 MG TABS 1 tablet by mouth twice daily METFORMIN HCL 83526743093 Active Ang Markham MD Active CYCLOBENZAPRINE HCL 5 MG TABS 1 po qHS PRN Muscle pain CYCLOBENZAPRINE HCL 96215864978 Active Ang Markham MD Active COLACE 100 MG CAP 1 po BID PRN Constipation DOCUSATE SODIUM 93549087923 No Longer Active Ang Markham MD Active HYDROXYZINE HCL 25 MG TAB 1 TID PRN nerves HYDROXYZINE HCL 82217382609 Active Ang Markham MD Active IBUPROFEN 800 MG TABS 1 tab every 8 hours as needed for pain 2013 IBUPROFEN 15615310449 No Longer Active Ang Markham MD Active NITROFURANTOIN MACROCRYSTAL 100 MG CAPS 1 capsule PO bid x 7 days NITROFURANTOIN MACROCRYSTAL 48300166568 No Longer Active Ang Markham MD Active DIFLUCAN 150 MG TAB 1 qODay x 2 doses FLUCONAZOLE 84658424955 No Longer Active Jillpiedad Nguyenl VIDEO PLAYER MECHANIC Active CEFTIN 500 MG TAB 1 tablet by mouth twice daily for 7 days 07/24 CEFUROXIME AXETIL 08195243412 No Longer Active Anthony CARBONE Active ZOLOFT 50 MG TAB 1 tablet by mouth daily SERTRALINE HCL 41236461057 No Longer Active Anthony CARBONE Active ANUSOL-HC 2.5 % CREAM apply as needed HYDROCORTISONE (RECTAL) 58683882899 No Longer Active Anthony CARBONE Active COLACE 100 MG CAP 1 tab PO BID DOCUSATE SODIUM 22323637001 No Longer Active Anthony CARBONE Active TRINESSA (28) 0.18/0.215/0.25 MG-35 MCG TABS 1 po qd as directed NORGESTIM-ETH ESTRAD TRIPHASIC 84394910045 No Longer Active Anthony CARBONE Active [facility] MELATONIN 5 MG TABS 1-2 po qHS PRN Insomnia MELATONIN 87873694238 No Longer Active Antohny CARBONE Active ACYCLOVIR 400 MG TABS ACYCLOVIR 44210901699 No Longer Active Ang Markham MD Active HYDROXYZINE HCL 25 MG TABS 1 tab PO tid PRN itching HYDROXYZINE HCL 65070024620 No Longer Active Ang Markham MD Active DIFLUCAN 150 MG TAB 1 qODay x 2 doses FLUCONAZOLE 82681199495 No Longer Active Jillina Frazell VIDEO PLAYER MECHANIC Active ACYCLOVIR 400 MG TABS 1 pill twice daily ACYCLOVIR 90657178434 No Longer Active Jillina Frazell VIDEO PLAYER MECHANIC Active AZITHROMYCIN 250 MG TABS 2 po qd x 1 day, then 1 po qd x 4 days AZITHROMYCIN 69484270940 No Longer Active Eri Borges MD PhD Active AZITHROMYCIN 250 MG TABS take 2 po day 1 then take1 po days 2-5 AZITHROMYCIN 32528729178 No Longer Active Octaviano CARBONE Active ACYCLOVIR 400 MG TABS 1 po qd ACYCLOVIR 51375898343 No Longer Active Ang Markham MD Active PROZAC 40 MG CAPS 1 cap by mouth at bedtime FLUOXETINE HCL 84411922616 No Longer Active Ang Markham MD Active HYDROXYZINE HCL 25 MG TABS 1 tab PO tid PRN itching HYDROXYZINE HCL 25 MG TABS 846994 HYDROXYZINE HCL Inactive [facility] MELATONIN 5 MG TABS 1-2 po qHS PRN Insomnia [facility] MELATONIN 5 MG TABS 824802 MELATONIN Inactive TRINESSA (28) 0.18/0.215/0.25 MG-35 MCG TABS 1 po qd as directed TRINESSA (28) 0.18/0.215/0.25 MG-35 MCG TABS 403058 NORGESTIM-ETH ESTRAD TRIPHASIC Inactive COLACE 100 MG CAP 1 tab PO BID COLACE 100 MG CAP 6512981 DOCUSATE SODIUM Inactive ANUSOL-HC 2.5 % CREAM apply as needed ANUSOL-HC 2.5 % CREAM 669404 HYDROCORTISONE (RECTAL) Inactive ZOLOFT 50 MG TAB 1 tablet by mouth daily ZOLOFT 50 MG TAB 679530 SERTRALINE HCL Inactive CEFTIN 500 MG TAB 1 tablet by mouth twice daily for 7 days 07/24 CEFTIN 500 MG TAB 421157 CEFUROXIME AXETIL Inactive NITROFURANTOIN MACROCRYSTAL 100 MG CAPS 1 capsule PO bid x 7 days NITROFURANTOIN MACROCRYSTAL 100 MG CAPS 1705174 NITROFURANTOIN MACROCRYSTAL Inactive IBUPROFEN 800 MG TABS 1 tab every 8 hours as needed for pain 2013 IBUPROFEN 800 MG TABS 560493 IBUPROFEN Inactive COLACE 100 MG CAP 1 po BID PRN Constipation COLACE 100 MG CAP 8767243 DOCUSATE SODIUM Inactive MELOXICAM 15 MG TABS 1 po qd PRN Knee Pain MELOXICAM 15 MG TABS 701086 MELOXICAM Inactive LEVEMIR FLEXPEN 100 UNIT/ML SOLN 40 units SC at bedtime LEVEMIR FLEXPEN 100 UNIT/ML SOLN INSULIN DETEMIR Inactive GENTAMICIN SULFATE 0.1 % EXT OINT Apply to open sores once a day. GENTAMICIN SULFATE 0.1 % EXT OINT 423740 GENTAMICIN SULFATE Inactive EMBRACE BLOOD GLUCOSE TEST STRP Test blood sugars 4 times daily and PRN 08/05 EMBRACE BLOOD GLUCOSE TEST STRP GLUCOSE BLOOD Inactive LEVEMIR FLEXTOUCH 100 UNIT/ML SC SOPN 35 units SC at 12-1pm, 35 units 12-1am LEVEMIR FLEXTOUCH 100 UNIT/ML SC SOPN INSULIN DETEMIR Inactive CORTISPORIN 3.5-32174-8 SOLN 4gtts in affected ear QID x 7 days CORTISPORIN 3.5-79953-7 [facility] 900575 [id number] Inactive ACYCLOVIR 400 MG TABS 1 po qd ACYCLOVIR 400 MG TABS 19720928 ACYCLOVIR Inactive AZITHROMYCIN 250 MG TABS take 2 po day 1 then take1 po days 2-5 AZITHROMYCIN 250 MG TABS 2285042 AZITHROMYCIN Inactive AZITHROMYCIN 250 MG TABS 2 po qd x 1 day, then 1 po qd x 4 days AZITHROMYCIN 250 MG TABS 9301527 AZITHROMYCIN Inactive ACYCLOVIR 400 MG TABS 1 pill twice daily ACYCLOVIR 400 MG TABS 19720928 ACYCLOVIR Inactive DIFLUCAN 150 MG TAB 1 qODay x 2 doses DIFLUCAN 150 MG TAB 122922 FLUCONAZOLE Inactive ACYCLOVIR 400 MG TABS ACYCLOVIR 400 MG TABS 19720928 ACYCLOVIR Inactive DIFLUCAN 150 MG TAB 1 qODay x 2 doses DIFLUCAN 150 MG TAB 007850 FLUCONAZOLE Inactive BACTRIM DS 800-160 MG TAB 1 tab by mouth twice daily BACTRIM DS 800-160 MG TAB 530469 TRIMETHOPRIM-SULFAMETHOXAZOLE Inactive Advance Directives Directive Description Start Date PERMISSION TO SHARE Vital Signs Date Name Value Unit Range Description blood pressure, diastolic - 8462-4 68 mm[Hg] [...] Panel - Chemistry sodium, serum 130 mmol/L 638-748 2409/10/12 carbon dioxide, venous blood 28.1 mmol/L 21.0-32.0 potassium, serum 3.9 mmol/L 3.5-5.2 chloride, serum 91 mmol/L 98-107 blood glucose 547 mg/dL 65-110 urea nitrogen, blood 3 mg/dL 7-18 creatinine, serum 0.78 mg/dL 0.55-1.30 alanine aminotransferase (SGPT), serum 11 U/L 12-78 aspartate aminotransferase (SGOT), serum 7 U/L 15-37 calcium, serum 8.8 mg/dL 8.5-10.1 bilirubin, serum, total 0.30 mg/dL 0.00-1.00 cholesterol, serum 221 mg/dL 742-307 3957/10/12 triglyceride, serum, fasting 590 mg/dL 30-200 HDL cholesterol, serum 45 mg/dL 32-96 LDL cholesterol, serum 58 mg/dL 0-130 Lab Report: HGBA1C - Chemistry hemoglobin A1C, blood, as % of total hemoglobin 11.4 % 4.3-6.0 Lab Report: UADIP W/MICRO, AUTO, CBC W/DIFF, Comp. Metabolic Panel - Chemistry RBC, urine, dipstick Negative Negative sodium, serum 133 mmol/L 029-041 6602/06/03 carbon dioxide, venous blood 33.4 mmol/L 21.0-32.0 [...] nitrite, urine, semiquantitative Negative Negative Lab Report: [facility] [place] human chorionic gonadotropin, urine, qualitative [...] mg/dL Encounters Code Encounter Date Provider Facility CPT-99427 Level 3 Est. Patient 15:02:19 CDT Srheya Velazquez [facility] CPT-58773 Level 3 Est. Patient 13:22:25 CDT Gabriel Hunt [facility] CPT-98412 Level 4 Est. Patient 16:02:22 CDT Ang Markham MD [facility] CPT-13082 Level 3 Est. [facility] [facility] Level 3 Est. Patient 17:02:56 CDT Gabriel Hunt [facility] CPT-61979 Level 3 Est. Patient 14:46:22 CDT Da Romero [facility] CPT-23055 Level 4 Est. Patient 13:55:20 CDT Ang Markham MD [facility] CPT-07940 Level 4 Est. Patient 16:10:09 CDT Celestine Huerta [facility] CPT-31200 Level 3 Est. Patient 13:51:24 CDT Ang Markham MD [facility] CPT-52027 Level 3 Est. Patient 18:42:15 CDT Gabriel Hunt [facility] CPT-74113 Level 5 Est. Patient 14:40:14 [facility] CPT-83150 Level 4 Est. Patient 14:36:17 CDT Ang Markham MD [facility] CPT-57731 Level 3 Est. Patient 11:13:47 ENGINE TESTING SUPERVISOR Ang Markham MD [facility] CPT-64371 Level 3 Est. Patient 11:59:20 ENGINE TESTING SUPERVISOR Gloria Dunbar [facility] CPT-40802 Level 3 Est. Patient 17:32:37 ENGINE TESTING SUPERVISOR Gloria Dunbar [facility] CPT-28091 Level 4 Est. Patient 16:39:07 CDT Ang Markham MD [facility] CPT-08508 Level 3 Est. Patient 16:35:50 CDT Ang Markham MD [facility] CPT-61203 Level 4 Est. Patient 13:53:06 ENGINE TESTING SUPERVISOR Ang Markham MD [facility] CPT-33506 Level 3 Est. Patient 08:58:08 ENGINE TESTING SUPERVISOR Ang Markham MD [facility] CPT-21646 Level 3 Est. Patient 18:48:29 CDT Anthony Whitfield [facility] CPT-34553 Level 3 Est. Patient 12:16:59 CDT Gabriel Hunt DO [facility] CPT-31178 Level 3 Est. Patient 18:57:15 CDT Anthony Whitfield [facility] CPT-80917 Level 3 Est. Patient 13:59:22 ENGINE TESTING SUPERVISOR Ang Markham MD [facility] CPT-99044 Level 4 Est. Patient 10:36:08 ENGINE TESTING SUPERVISOR Ang Markham MD [facility] CPT-71756 Level 3 Est. Patient 16:27:02 CDT Eri Borges MD PhD [facility] CPT-44813 Level 3 Est. Patient 10:36:43 CDT Octaviano Dempsey [facility] CPT-18640 Level 4 New Patient 08:58:06 CDT Ang Markham MD [facility] Procedures Code Procedure Name Date Entry Date Standard Description CPT-60112 LS spine comp w obliques - XRAY USE ONLY 15:34:48 CDT CPT-81134 Lipid - LAB USE ONLY 15:28:39 CDT CPT-39597 CMP - LAB USE ONLY 15:28:39 CDT CPT-44001 Venipuncture Draw Fee 15:28:39 CDT CPT-37542 Abd compl w upright - XRAY USE ONLY 14:09:39 CDT 02/28 CPT-99601 Venipuncture Draw Fee 12:25:15 CDT CPT-48554 Knee 3V 16:48:40 CDT CPT-OV Office Visit 16:27:13 CDT CPT-OV Office Visit 16:21:19 CDT CPT-22235 Sono pelvis non OB uterus ovaries cervix 09:37:28 CDT
--- OUTSIDE RECORDS SUMMARY | 2018-12-22 01:21 | XMS REPORT | Clinical Summary ---
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 V58.67 Active Celestine PEARCE Long-term (current) use of insulin Low back pain, acute 724.2 Active Shreya Velazquez CHIEF COOK Lumbago Pharyngitis, acute / sore throat 462 [...] I, with hypoglycemia ICD-250.81 Nathan Markham MD long term care administrator use 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 ICD-V58.67 Nathan Markham MD Abdominal pain ICD-789.00 Nathan Markham MD Hematochezia ICD-578.1 Nathan Markham MD Nausea ICD-787.02 Inactive Ang Markham MD 06/26 Otitis externa, acute, left ICD-380.12 Inactive Ang Markham MD Medication List Medication Instructions Start Date Stop Date Generic Name NDC Status Provider Patient Instruction COLACE 100 MG CAP 1 po daily DOCUSATE SODIUM 59535607497 No Longer Active Jillina Frazell CHIEF COOK Active CARAFATE 1 GM/10ML ORAL SUSP 5 mg four times daily SUCRALFATE 81917042140 Active Jillina Frazell CHIEF COOK Active ZANTAC 150 MG TAB 1 po BID RANITIDINE HCL 69094923810 No Longer Active Jillina Frazell CHIEF COOK Active HYDROXYZINE HCL 25 MG TAB 1 TID PRN nerves HYDROXYZINE HCL 77262218004 No Longer Active Jillina Frazell CHIEF COOK Active CLINDAMYCIN HCL 300 MG ORAL CAPS 1 four times a day CLINDAMYCIN HCL 27923537496 No Longer Active Jillina Frazell CHIEF COOK Active TYLENOL WITH CODEINE #3 300-30 MG TABS 1 every four hours as needed for pain ACETAMINOPHEN-CODEINE 78703637012 Active Conner Hills MD Active LEVAQUIN 500 MG TABS 1 daily for infection LEVOFLOXACIN 40019234395 No Longer Active Conner Hills MD Active DOXEPIN HCL 10 MG CAP 1 tablet nightly for the itch DOXEPIN HCL 17773341426 No Longer Active Conner Hills MD Active TRESIBA FLEXTOUCH 200 UNIT/ML SC SOPN Take 70 units daily at mid-night to 1 am. INSULIN DEGLUDEC 96569404012 No Longer Active Conner Hills MD Active METFORMIN HCL 1000 MG TABS 1 tablet by mouth twice daily METFORMIN HCL 34788659763 No Longer Active Conner Hills MD Active LIPITOR 40 MG TAB 1 po qHS ATORVASTATIN CALCIUM 47757688846 No Longer Active Conner Hills MD Active GEMFIBROZIL 600 MG TABS 1 po BID GEMFIBROZIL 41922503371 No Longer Active Conner Hills MD Active CORTISPORIN 3.5-45381-0 SOLN 4gtts in affected ear QID x 7 days [id number] 53432498071 No Longer Active Ang Markham MD Active LEVEMIR FLEXTOUCH 100 UNIT/ML SC SOPN 35 units SC at 12-1pm, 35 units 12-1am INSULIN DETEMIR 44670459846 No Longer Active Celestine PEARCE Active REGLAN 10 MG TAB 0.5 po TID 30min prior to meals METOCLOPRAMIDE HCL 62017987831 Active Ang Markham MD Active NOVOLOG FLEXPEN 100 UNIT/ML SOPN Take 20 units TID with meals, plus 2u/50 for blood sugars above 150. Ratio vs. Carbs INSULIN ASPART 20582908871 Active Gabriel Hunt DO Active BD PEN NEEDLE DINESH U/F 32G X 4 MM MISC 5 a day INSULIN PEN NEEDLE 16719402871 Active Malstepheneh Ziglari TICKET COLLECTOR OR USHER Active EMBRACE BLOOD GLUCOSE TEST STRP Test blood sugars 4 times daily and PRN 08/05 GLUCOSE BLOOD 88256601807 No Longer Active Maliheh Ziglari TICKET COLLECTOR OR USHER Active TRUEPLUS LANCETS 30G MISC 4 a day LANCETS 19104828030 Active Maliheh Ziglari TICKET COLLECTOR OR USHER Active TRUETEST TEST STRP check blood sugars 4x/day GLUCOSE BLOOD 33258841006 Active Maliheh Ziglari TICKET COLLECTOR OR USHER Active TRUERESULT BLOOD GLUCOSE W/DEVICE KIT check blood sugars 4x a day BLOOD GLUCOSE MONITORING SUPPL 21438227919 Active Malstepheneh Ziglari TICKET COLLECTOR OR USHER Active LISINOPRIL 5 MG TABS 1 po qd LISINOPRIL 60663235958 Active Ang Markham MD Active PAXIL 20 MG TAB 1 tablet by mouth daily PAROXETINE HCL 72819883799 Active Ang Markham MD Active GENTAMICIN SULFATE 0.1 % EXT OINT Apply to open sores once a day. GENTAMICIN SULFATE 58783297090 No Longer Active Ang Markham MD Active ZOLPIDEM TARTRATE 10 MG TABS 1 po qHS PRN Insomnia ZOLPIDEM TARTRATE 97447332442 Active Ang Markham MD Active BACTRIM DS 800-160 MG TAB 1 tab by mouth twice daily TRIMETHOPRIM-SULFAMETHOXAZOLE 03961970134 No Longer Active Gloria Yokum CHIEF COOK Active LEVEMIR FLEXPEN 100 UNIT/ML SOLN 40 units SC at bedtime INSULIN DETEMIR No Longer Active Susan Adan RMA Active INSUPEN ULTRAFIN 31G X 6 MM MISC Use with insulin qid. DX: E11.9 INSULIN PEN NEEDLE 38712607243 Active Ang Markham MD Active ZOLOFT 100 MG TAB 1 po qHS SERTRALINE HCL 24942147116 No Longer Active Ang Markham MD Active MELOXICAM 15 MG TABS 1 po qd PRN Knee Pain MELOXICAM 50948549133 No Longer Active Ang Markham MD Active CYCLOBENZAPRINE HCL 5 MG TABS 1 po qHS PRN Muscle pain CYCLOBENZAPRINE HCL 61433492582 Active Ang Markham MD Active COLACE 100 MG CAP 1 po BID PRN Constipation DOCUSATE SODIUM 14034836627 No Longer Active Ang Markham MD Active IBUPROFEN 800 MG TABS 1 tab every 8 hours as needed for pain 2013 IBUPROFEN 87937797983 No Longer Active Ang Markham MD Active NITROFURANTOIN MACROCRYSTAL 100 MG CAPS 1 capsule PO bid x 7 days NITROFURANTOIN MACROCRYSTAL 83573475549 No Longer Active Ang Markham MD Active DIFLUCAN 150 MG TAB 1 qODay x 2 doses FLUCONAZOLE 04823947353 No Longer Active Da Romero APRN Active CEFTIN 500 MG TAB 1 tablet by mouth twice daily for 7 days 07/24 CEFUROXIME AXETIL 48171566400 No Longer Active Anthony CARBONE Active ZOLOFT 50 MG TAB 1 tablet by mouth daily SERTRALINE HCL 89433797900 No Longer Active Anthony CARBONE Active ANUSOL-HC 2.5 % CREAM apply as needed HYDROCORTISONE (RECTAL) 03436926996 No Longer Active Anthony CARBONE Active COLACE 100 MG CAP 1 tab PO BID DOCUSATE SODIUM 28507194950 No Longer Active Anthony CARBONE Active TRINESSA (28) 0.18/0.215/0.25 MG-35 MCG TABS 1 po qd as directed NORGESTIM-ETH ESTRAD TRIPHASIC 40477507628 No Longer Active Anthony CARBONE Active [facility] MELATONIN 5 MG TABS 1-2 po qHS PRN Insomnia MELATONIN 33005864573 No Longer Active Anthony CARBONE Active ACYCLOVIR 400 MG TABS ACYCLOVIR 95424949141 No Longer Active Ang Markham MD Active HYDROXYZINE HCL 25 MG TABS 1 tab PO tid PRN itching HYDROXYZINE HCL 15902193609 No Longer Active Ang Markham MD Active DIFLUCAN 150 MG TAB 1 qODay x 2 doses FLUCONAZOLE 03212623621 No Longer Active Da Romero APRN Active ACYCLOVIR 400 MG TABS 1 pill twice daily ACYCLOVIR 79558088747 No Longer Active Da Romero APRN Active AZITHROMYCIN 250 MG TABS 2 po qd x 1 day, then 1 po qd x 4 days AZITHROMYCIN 67679539800 No Longer Active Eri Borges MD PhD Active AZITHROMYCIN 250 MG TABS take 2 po day 1 then take1 po days 2-5 AZITHROMYCIN 57222776498 No Longer Active Octaviano CARBONE Active ACYCLOVIR 400 MG TABS 1 po qd ACYCLOVIR 72679641062 No Longer Active Ang Markham MD Active PROZAC 40 MG CAPS 1 cap by mouth at bedtime FLUOXETINE HCL 82818526003 No Longer Active Ang Markham MD Active HYDROXYZINE HCL 25 MG TABS 1 tab PO tid PRN itching HYDROXYZINE HCL 25 MG TABS 927813 HYDROXYZINE HCL Inactive [facility] MELATONIN 5 MG TABS 1-2 po qHS PRN Insomnia [facility] MELATONIN 5 MG TABS 406547 MELATONIN Inactive TRINESSA (28) 0.18/0.215/0.25 MG-35 MCG TABS 1 po qd as directed TRINESSA (28) 0.18/0.215/0.25 MG-35 MCG TABS 204085 NORGESTIM-ETH ESTRAD TRIPHASIC Inactive COLACE 100 MG CAP 1 tab PO BID COLACE 100 MG CAP 0107199 DOCUSATE SODIUM Inactive ANUSOL-HC 2.5 % CREAM apply as needed ANUSOL-HC 2.5 % CREAM 209546 HYDROCORTISONE (RECTAL) Inactive ZOLOFT 50 MG TAB 1 tablet by mouth daily ZOLOFT 50 MG TAB 084616 SERTRALINE HCL Inactive CEFTIN 500 MG TAB 1 tablet by mouth twice daily for 7 days 07/24 CEFTIN 500 MG TAB 662637 CEFUROXIME AXETIL Inactive NITROFURANTOIN MACROCRYSTAL 100 MG CAPS 1 capsule PO bid x 7 days NITROFURANTOIN MACROCRYSTAL 100 MG CAPS 9968535 NITROFURANTOIN MACROCRYSTAL Inactive IBUPROFEN 800 MG TABS 1 tab every 8 hours as needed for pain 2013 IBUPROFEN 800 MG TABS 665867 IBUPROFEN Inactive COLACE 100 MG CAP 1 po BID PRN Constipation COLACE 100 MG CAP 1304458 DOCUSATE SODIUM Inactive MELOXICAM 15 MG TABS 1 po qd PRN Knee Pain MELOXICAM 15 MG TABS 395003 MELOXICAM Inactive LEVEMIR FLEXPEN 100 UNIT/ML SOLN 40 units SC at bedtime LEVEMIR FLEXPEN 100 UNIT/ML SOLN INSULIN DETEMIR Inactive GENTAMICIN SULFATE 0.1 % EXT OINT Apply to open sores once a day. GENTAMICIN SULFATE 0.1 % EXT OINT 953827 GENTAMICIN SULFATE Inactive EMBRACE BLOOD GLUCOSE TEST STRP Test blood sugars 4 times daily and PRN 08/05 EMBRACE BLOOD GLUCOSE TEST STRP GLUCOSE BLOOD Inactive LEVEMIR FLEXTOUCH 100 UNIT/ML SC SOPN 35 units SC at 12-1pm, 35 units 12-1am LEVEMIR FLEXTOUCH 100 UNIT/ML SC SOPN INSULIN DETEMIR Inactive CORTISPORIN 3.5-78868-3 SOLN 4gtts in affected ear QID x 7 days CORTISPORIN 3.5-21802-8 SOLN 792373 [id number] Inactive GEMFIBROZIL 600 MG TABS 1 po BID GEMFIBROZIL 600 MG TABS 973406 GEMFIBROZIL Inactive LIPITOR 40 MG TAB 1 po qHS LIPITOR 40 MG TAB 107086 ATORVASTATIN CALCIUM Inactive METFORMIN HCL 1000 MG TABS 1 tablet by mouth twice daily METFORMIN HCL 1000 MG TABS 802873 METFORMIN HCL Inactive TRESIBA FLEXTOUCH 200 UNIT/ML SC SOPN Take 70 units daily at mid-night to 1 am. TRESIBA FLEXTOUCH 200 UNIT/ML SC SOPN INSULIN DEGLUDEC Inactive DOXEPIN HCL 10 MG CAP 1 tablet nightly for the itch DOXEPIN HCL 10 MG CAP 0223390 DOXEPIN HCL Inactive LEVAQUIN 500 MG TABS 1 daily for infection LEVAQUIN 500 MG TABS 750487 LEVOFLOXACIN Inactive CLINDAMYCIN HCL 300 MG ORAL CAPS 1 four times a day CLINDAMYCIN HCL 300 MG ORAL CAPS 666327 CLINDAMYCIN HCL Inactive HYDROXYZINE HCL 25 MG TAB 1 TID PRN nerves HYDROXYZINE HCL 25 MG TAB 533609 HYDROXYZINE HCL Inactive ZANTAC 150 MG TAB 1 po BID ZANTAC 150 MG TAB 451290 RANITIDINE HCL Inactive COLACE 100 MG CAP 1 po daily COLACE 100 MG CAP 6533747 DOCUSATE SODIUM Inactive ACYCLOVIR 400 MG TABS 1 po qd ACYCLOVIR 400 MG TABS 19720928 ACYCLOVIR Inactive AZITHROMYCIN 250 MG TABS take 2 po day 1 then take1 po days 2-5 AZITHROMYCIN 250 MG TABS 2718816 AZITHROMYCIN Inactive AZITHROMYCIN 250 MG TABS 2 po qd x 1 day, then 1 po qd x 4 days AZITHROMYCIN 250 MG TABS 1760357 AZITHROMYCIN Inactive ACYCLOVIR 400 MG TABS 1 pill twice daily ACYCLOVIR 400 MG TABS 19720928 ACYCLOVIR Inactive DIFLUCAN 150 MG TAB 1 qODay x 2 doses DIFLUCAN 150 MG TAB 19760606 FLUCONAZOLE Inactive ACYCLOVIR 400 MG TABS ACYCLOVIR 400 MG TABS 19720928 ACYCLOVIR Inactive DIFLUCAN 150 MG TAB 1 qODay x 2 doses DIFLUCAN 150 MG TAB 087410 FLUCONAZOLE Inactive BACTRIM DS 800-160 MG TAB 1 tab by mouth twice daily BACTRIM DS 800-160 MG TAB 115235 TRIMETHOPRIM-SULFAMETHOXAZOLE Inactive Advance Directives Directive Description Start [...] Panel - Chemistry sodium, serum 130 mmol/L 504-524 1309/10/12 carbon dioxide, venous blood 28.1 mmol/L 21.0-32.0 potassium, serum 3.9 mmol/L 3.5-5.2 chloride, serum 91 mmol/L 98-107 blood glucose 547 mg/dL 65-110 urea nitrogen, blood 3 mg/dL 7-18 creatinine, serum 0.78 mg/dL 0.55-1.30 alanine aminotransferase (SGPT), serum 11 U/L 12-78 aspartate aminotransferase (SGOT), serum 7 U/L 15-37 calcium, serum 8.8 mg/dL 8.5-10.1 bilirubin, serum, total 0.30 mg/dL 0.00-1.00 cholesterol, serum 221 mg/dL 447-660 1451/10/12 triglyceride, serum, fasting 590 mg/dL 30-200 HDL cholesterol, serum 45 mg/dL 32-96 LDL cholesterol, serum 58 mg/dL 0-130 Encounters Code Encounter Date Provider Facility CPT-70524 Level 3 Est. Patient 14:52:33 CDT aD Romero [facility] CPT-69454 Level 3 Est. Patient 10:22:30 CDT Conner Hills MD [facility] CPT-40369 Level 3 Est. Patient 15:02:19 CDT Shreya Velazquez [facility] CPT-96924 Level 3 Est. Patient 13:22:25 CDT Gabriel Hunt [facility] CPT-14549 Level 4 Est. Patient 16:02:22 CDT Ang Markham MD [facility] CPT-02046 Level 3 Est. Patient 16:21:23 CDT Celestine Huerta [facility] CPT-22384 Level 3 Est. Patient 17:02:56 CDT Gabriel Hunt [facility] CPT-08742 Level 3 Est. Patient 14:46:22 CDT Da Romero [facility] CPT-08444 Level 4 Est. Patient 13:55:20 CDT Ang Markham MD [facility] CPT-65339 Level 4 Est. Patient 16:10:09 CDT Celestine Huerta [facility] CPT-72473 Level 3 Est. Patient 13:51:24 CDT Ang Markham MD [facility] CPT-35007 Level 3 Est. Patient 18:42:15 CDT Gabriel Hunt [facility] CPT-34562 Level 5 Est. Patient 14:40:14 CDT Celestine Huerta RAMSES [facility] CPT-20474 Level 4 Est. Patient 14:36:17 CDT Ang Markham MD [facility] CPT-49235 Level 3 Est. Patient 11:13:47 METAPHYSICS TEACHER Ang Markham MD [facility] CPT-29955 Level 3 Est. Patient 11:59:20 METAPHYSICS TEACHER Gloria Dunbar [facility] CPT-78872 Level 3 Est. Patient 17:32:37 METAPHYSICS TEACHER Gloria Dunbar [facility] CPT-23524 Level 4 Est. Patient 16:39:07 CDT Ang Markham MD [facility] CPT-65983 Level 3 Est. Patient 16:35:50 CDT Ang Markham MD [facility] CPT-19061 Level 4 Est. Patient 13:53:06 METAPHYSICS TEACHER Ang Markham MD [facility] CPT-44796 Level 3 Est. Patient 08:58:08 METAPHYSICS TEACHER Ang Markham MD [facility] CPT-55532 Level 3 Est. Patient 18:48:29 CDT Anthony Whitfield [facility] CPT-59337 Level 3 Est. Patient 12:16:59 CDT Gabriel Hunt DO [facility] CPT-74824 Level 3 Est. Patient 18:57:15 CDT Anthony Whitfield [facility] CPT-02807 Level 3 Est. Patient 13:59:22 METAPHYSICS TEACHER Ang Markham MD [facility] CPT-30356 Level 4 Est. Patient 10:36:08 METAPHYSICS TEACHER Ang Markham MD [facility] CPT-87094 Level 3 Est. Patient 16:27:02 CDT Eri Borges MD PhD [facility] CPT-56869 Level 3 Est. Patient 10:36:43 CDT Octaviano CARBONE [facility] CPT-87421 Level 4 New Patient 08:58:06 CDT Ang Markham MD [facility] Procedures Code Procedure Name Date Entry Date Standard Description CPT-22431 LS spine comp w obliques - XRAY USE ONLY 15:34:48 CDT CPT-48546 Lipid - LAB USE ONLY 15:28:39 CDT CPT-33682 CMP - LAB USE ONLY 15:28:39 CDT CPT-24119 Venipuncture Draw Fee 15:28:39 CDT CPT-22972 Abd compl w upright - XRAY USE ONLY 14:09:39 CDT 02/28 CPT-25965 Venipuncture Draw Fee 12:25:15 CDT CPT-75611 Knee 3V 16:48:40 CDT CPT-OV Office Visit 16:27:13 CDT CPT-OV Office Visit 16:21:19 CDT CPT-43136 Sono pelvis non OB uterus ovaries cervix 09:37:28 CDT
--- OUTSIDE RECORDS SUMMARY | 2018-12-22 01:21 | XMS REPORT | Clinical Summary ---
Author Author Admin, QIE Organization [employer] Address Unknown Phone Unavailable Allergies, Adverse Reactions, [...] 5 MG TABS 1 po qd LISINOPRIL 95211955217 Active Ang Markham MD Active NOVOLOG FLEXPEN 100 UNIT/ML SOPN Take 20 units TID with meals INSULIN ASPART 20171029301 Active Ang Markham MD Active LEVEMIR FLEXTOUCH 100 UNIT/ML SC SOPN 60 units SC nightly INSULIN DETEMIR 09913407589 Active Codey Hdez MD Active COLACE 100 MG CAP 1 po BID PRN Constipation DOCUSATE SODIUM 18657292432 Active Ang Markham MD Active PAXIL 20 MG TAB 1 tablet by mouth daily PAROXETINE HCL 58578479364 Active Ang Markham MD Active GENTAMICIN SULFATE 0.1 % EXT OINT Apply to open sores once a day. GENTAMICIN SULFATE 25566000410 No Longer Active Ang Markham MD Active ZOLPIDEM TARTRATE 10 MG TABS 1 po qHS PRN Insomnia ZOLPIDEM TARTRATE 84119262158 Active Ang Markham MD Active BACTRIM DS 800-160 MG TAB 1 tab by mouth twice daily TRIMETHOPRIM-SULFAMETHOXAZOLE 97552021966 No Longer Active Gloriajuliette Dunbar BROKER IN CHARGE Active LEVEMIR FLEXPEN 100 UNIT/ML SOLN 40 units SC at bedtime INSULIN DETEMIR No Longer Active Susankalen Arellano RMA Active INSUPEN ULTRAFIN 31G X 6 MM MISC Use with insulin qid. DX: E11.9 INSULIN PEN NEEDLE 13706057569 Active Ang Markham MD Active ZOLOFT 100 MG TAB 1 po qHS SERTRALINE HCL 60516485978 No Longer Active Ang Markham MD Active MELOXICAM 15 MG TABS 1 po qd PRN Knee Pain MELOXICAM 34453194387 No Longer Active Ang Markham MD Active LIPITOR 40 MG TAB 1 po qHS ATORVASTATIN CALCIUM 27331420708 Active Ang Markham MD Active METFORMIN HCL 1000 MG TABS 1 tablet by mouth twice daily METFORMIN HCL 54772701697 Active Ang Markham MD Active CYCLOBENZAPRINE HCL 5 MG TABS 1 po qHS PRN Muscle pain CYCLOBENZAPRINE HCL 47430785502 Active Ang Markham MD Active COLACE 100 MG CAP 1 po BID PRN Constipation DOCUSATE SODIUM 17199324889 No Longer Active Ang Markham MD Active HYDROXYZINE HCL 25 MG TAB 1 TID PRN nerves HYDROXYZINE HCL 24475942677 Active Ang Markham MD Active IBUPROFEN 800 MG TABS 1 tab every 8 hours as needed for pain 2013 IBUPROFEN 63142909354 No Longer Active Ang Markham MD Active NITROFURANTOIN MACROCRYSTAL 100 MG CAPS 1 capsule PO bid x 7 days NITROFURANTOIN MACROCRYSTAL 78151491666 No Longer Active Ang Markham MD Active DIFLUCAN 150 MG TAB 1 qODay x 2 doses FLUCONAZOLE 84728563778 No Longer Active Da Romero APRN Active CEFTIN 500 MG TAB 1 tablet by mouth twice daily for 7 days 07/24 CEFUROXIME AXETIL 54379587300 No Longer Active Anthony CARBONE Active ZOLOFT 50 MG TAB 1 tablet by mouth daily SERTRALINE HCL 36279861472 No Longer Active Anthony CARBONE Active ANUSOL-HC 2.5 % CREAM apply as needed HYDROCORTISONE (RECTAL) 38940846292 No Longer Active Anthony CARBONE Active COLACE 100 MG CAP 1 tab PO BID DOCUSATE SODIUM 03074362030 No Longer Active Anthony CARBONE Active TRINESSA (28) 0.18/0.215/0.25 MG-35 MCG TABS 1 po qd as directed NORGESTIM-ETH ESTRAD TRIPHASIC 83773994798 No Longer Active Anthony CARBONE Active [facility] MELATONIN 5 MG TABS 1-2 po qHS PRN Insomnia MELATONIN 27858743171 No Longer Active Anthony CARBONE Active ACYCLOVIR 400 MG TABS ACYCLOVIR 00258330670 No Longer Active Ang Markham MD Active EMBRACE BLOOD GLUCOSE TEST STRP Test blood sugars 4 times daily and PRN 08/05 GLUCOSE BLOOD 40756471156 Active Ang Markham MD Active HYDROXYZINE HCL 25 MG TABS 1 tab PO tid PRN itching HYDROXYZINE HCL 19529462558 No Longer Active Ang Markham MD Active DIFLUCAN 150 MG TAB 1 qODay x 2 doses FLUCONAZOLE 49987292226 No Longer Active Jillina Frazell BROKER IN CHARGE Active ACYCLOVIR 400 MG TABS 1 pill twice daily ACYCLOVIR 67663840440 No Longer Active Da Romero APRN Active AZITHROMYCIN 250 MG TABS 2 po qd x 1 day, then 1 po qd x 4 days AZITHROMYCIN 04055003671 No Longer Active Eri Borges MD PhD Active AZITHROMYCIN 250 MG TABS take 2 po day 1 then take1 po days 2-5 AZITHROMYCIN 72029123402 No Longer Active Octaviano Dempsey PA Active ACYCLOVIR 400 MG TABS 1 po qd ACYCLOVIR 70352212659 No Longer Active Ang Markham MD Active PROZAC 40 MG CAPS 1 cap by mouth at bedtime FLUOXETINE HCL 63246906164 No Longer Active Ang Markham MD Active HYDROXYZINE HCL 25 MG TABS 1 tab PO tid PRN itching HYDROXYZINE HCL 25 MG TABS 656406 HYDROXYZINE HCL Inactive [facility] MELATONIN 5 MG TABS 1-2 po qHS PRN Insomnia [facility] MELATONIN 5 MG TABS 350865 MELATONIN Inactive TRINESSA (28) 0.18/0.215/0.25 MG-35 MCG TABS 1 po qd as directed TRINESSA (28) 0.18/0.215/0.25 MG-35 MCG TABS 280112 NORGESTIM-ETH ESTRAD TRIPHASIC Inactive COLACE 100 MG CAP 1 tab PO BID COLACE 100 MG CAP 8224210 DOCUSATE SODIUM Inactive ANUSOL-HC 2.5 % CREAM apply as needed ANUSOL-HC 2.5 % CREAM 916184 HYDROCORTISONE (RECTAL) Inactive ZOLOFT 50 MG TAB 1 tablet by mouth daily ZOLOFT 50 MG TAB 903671 SERTRALINE HCL Inactive CEFTIN 500 MG TAB 1 tablet by mouth twice daily for 7 days 07/24 CEFTIN 500 MG TAB 281661 CEFUROXIME AXETIL Inactive NITROFURANTOIN MACROCRYSTAL 100 MG CAPS 1 capsule PO bid x 7 days NITROFURANTOIN MACROCRYSTAL 100 MG CAPS 1141541 NITROFURANTOIN MACROCRYSTAL Inactive IBUPROFEN 800 MG TABS 1 tab every 8 hours as needed for pain 2013 IBUPROFEN 800 MG TABS 188958 IBUPROFEN Inactive COLACE 100 MG CAP 1 po BID PRN Constipation COLACE 100 MG CAP 1456545 DOCUSATE SODIUM Inactive MELOXICAM 15 MG TABS 1 po qd PRN Knee Pain MELOXICAM 15 MG TABS 062119 MELOXICAM Inactive LEVEMIR FLEXPEN 100 UNIT/ML SOLN 40 units SC at bedtime LEVEMIR FLEXPEN 100 UNIT/ML SOLN INSULIN DETEMIR Inactive GENTAMICIN SULFATE 0.1 % EXT OINT Apply to open sores once a day. GENTAMICIN SULFATE 0.1 % EXT OINT 008580 GENTAMICIN SULFATE Inactive ACYCLOVIR 400 MG TABS 1 po qd ACYCLOVIR 400 MG TABS 19720928 ACYCLOVIR Inactive AZITHROMYCIN 250 MG TABS take 2 po day 1 then take1 po days 2-5 AZITHROMYCIN 250 MG TABS 1137645 AZITHROMYCIN Inactive AZITHROMYCIN 250 MG TABS 2 po qd x 1 day, then 1 po qd x 4 days AZITHROMYCIN 250 MG TABS 2858700 AZITHROMYCIN Inactive ACYCLOVIR 400 MG TABS 1 pill twice daily ACYCLOVIR 400 MG TABS 19720928 ACYCLOVIR Inactive DIFLUCAN 150 MG TAB 1 qODay x 2 doses DIFLUCAN 150 MG TAB 522882 FLUCONAZOLE Inactive ACYCLOVIR 400 MG TABS ACYCLOVIR 400 MG TABS 731655 ACYCLOVIR Inactive DIFLUCAN 150 MG TAB 1 qODay x 2 doses DIFLUCAN 150 MG TAB 19760606 FLUCONAZOLE Inactive BACTRIM DS 800-160 MG TAB 1 tab by mouth twice daily BACTRIM DS 800-160 MG TAB 167774 TRIMETHOPRIM-SULFAMETHOXAZOLE Inactive Advance Directives Directive Description Start [...] HGBA1C - Chemistry sodium, serum 134 mmol/L 261-583 7703/03/16 carbon dioxide, venous blood 34.5 mmol/L 21.0-32.0 potassium, serum 4.6 mmol/L 3.5-5.2 chloride, serum 93 mmol/L 98-107 blood glucose 408 mg/dL 65-110 urea nitrogen, blood 3 mg/dL 7-18 creatinine, serum 0.58 mg/dL 0.55-1.30 alanine aminotransferase (SGPT), serum 11 U/L 12-78 aspartate aminotransferase (SGOT), serum 8 U/L 15-37 calcium, serum 9.2 mg/dL 8.5-10.1 bilirubin, serum, total 0.30 mg/dL 0.00-1.00 cholesterol, serum 195 mg/dL 083-022 9778/03/16 triglyceride, serum, fasting 138 mg/dL 30-200 HDL [...] 0-19 Encounters Code Encounter Date Provider Facility CPT-70976 Level 4 Est. Patient 14:36:17 CDT Ang Markham MD [facility] CPT-19698 Level 3 Est. Patient 11:13:47 MEDICAL MASSAGE THERAPIST Ang Markham MD [facility] CPT-07571 Level 3 Est. Patient 11:59:20 MEDICAL MASSAGE THERAPIST Gloria Dunbar [facility] CPT-26488 Level 3 Est. Patient 17:32:37 MEDICAL MASSAGE THERAPIST Gloria Dunbar [facility] CPT-74136 Level 4 Est. Patient 16:39:07 CDT Ang Markham MD [facility] CPT-20867 Level 3 Est. Patient 16:35:50 CDT Ang Markham MD [facility] CPT-69948 Level 4 Est. Patient 13:53:06 MEDICAL MASSAGE THERAPIST Ang Markham MD [facility] CPT-50476 Level 3 Est. Patient 08:58:08 MEDICAL MASSAGE THERAPIST Ang Markham MD [facility] CPT-93710 Level 3 Est. Patient 18:48:29 CDT Antohny Whitfield [facility] CPT-76234 Level 3 Est. Patient 12:16:59 CDT Gabriel Hunt DO [facility] CPT-86300 Level 3 Est. Patient 18:57:15 CDT Anthony Whitfield [facility] CPT-84472 Level 3 Est. Patient 13:59:22 MEDICAL MASSAGE THERAPIST Ang Markham MD [facility] CPT-88073 Level 4 Est. Patient 10:36:08 MEDICAL MASSAGE THERAPIST Ang Markham MD [facility] CPT-89361 Level 3 Est. Patient 16:27:02 CDT Eri Borges MD [facility] CPT-32593 Level 3 Est. Patient 10:36:43 CDT Octaviano Roselyn [facility] CPT-07601 Level 4 New Patient 08:58:06 CDT Ang Markham MD [facility] Procedures Code Procedure Name Date Entry Date Standard Description CPT-64264 Venipuncture Draw Fee 12:25:15 CDT CPT-30677 Knee 3V 16:48:40 CDT CPT-OV Office Visit 16:27:13 CDT CPT-OV Office Visit 16:21:19 CDT CPT-40097 Sono pelvis non OB uterus ovaries cervix 09:37:28 CDT
--- OUTSIDE RECORDS SUMMARY | 2018-12-22 01:22 | XMS REPORT | Clinical Summary ---
Author Author Admin, QIE Organization [employer] Address Unknown Phone Unavailable Allergies, Adverse Reactions, [...] pain, right lower quadrant LOM 382.9 Resolved rEi Borges MD PhD Unspecified otitis media PSORIASIS [...] 1 po BID PRN Constipation DOCUSATE SODIUM 54469616452 Active Ang Markham MD Active PAXIL 20 MG TAB 1 tablet by mouth daily PAROXETINE HCL 16984666736 Active Ang Markham MD Active GENTAMICIN SULFATE 0.1 % EXT OINT Apply to open sores once a day. GENTAMICIN SULFATE 16821828102 No Longer Active Ang Markham MD Active ZOLPIDEM TARTRATE 10 MG TABS 1 po qHS PRN Insomnia ZOLPIDEM TARTRATE 79300400895 Active Ang Markham MD Active BACTRIM DS 800-160 MG TAB 1 tab by mouth twice daily TRIMETHOPRIM-SULFAMETHOXAZOLE 32871061985 No Longer Active Gloria Dunbar BANBURY MILL OPERATOR Active LEVEMIR FLEXTOUCH 100 UNIT/ML SC SOPN 40 units SC nightly INSULIN DETEMIR 14651505716 Active Ang Markham MD Active LEVEMIR FLEXPEN 100 UNIT/ML SOLN 40 units SC at bedtime INSULIN DETEMIR No Longer Active Susan Arellano RMA Active INSUPEN ULTRAFIN 31G X 6 MM MISC Use with insulin qid. DX: E11.9 INSULIN PEN NEEDLE 40634411587 Active Ang Markham MD Active ZOLOFT 100 MG TAB 1 po qHS SERTRALINE HCL 39715504082 No Longer Active Ang Markham MD Active MELOXICAM 15 MG TABS 1 po qd PRN Knee Pain MELOXICAM 08827898283 No Longer Active Ang Markham MD Active LIPITOR 40 MG TAB 1 po qHS ATORVASTATIN CALCIUM 37011165778 Active Ang Markham MD Active METFORMIN HCL 1000 MG TABS 1 tablet by mouth twice daily METFORMIN HCL 21516479674 Active Ang Markham MD Active CYCLOBENZAPRINE HCL 5 MG TABS 1 po qHS PRN Muscle pain CYCLOBENZAPRINE HCL 54085152982 Active Ang Markham MD Active COLACE 100 MG CAP 1 po BID PRN Constipation DOCUSATE SODIUM 36369765590 No Longer Active Ang Markham MD Active HYDROXYZINE HCL 25 MG TAB 1 TID PRN nerves HYDROXYZINE HCL 91585580308 Active Ang Markham MD Active IBUPROFEN 800 MG TABS 1 tab every 8 hours as needed for pain 2013 IBUPROFEN 08411483725 No Longer Active Ang Markham MD Active NITROFURANTOIN MACROCRYSTAL 100 MG CAPS 1 capsule PO bid x 7 days NITROFURANTOIN MACROCRYSTAL 52883953603 No Longer Active Ang Markham MD Active DIFLUCAN 150 MG TAB 1 qODay x 2 doses FLUCONAZOLE 98567158681 No Longer Active Da Romero BANBURY MILL OPERATOR Active CEFTIN 500 MG TAB 1 tablet by mouth twice daily for 7 days 07/24 CEFUROXIME AXETIL 92306428711 No Longer Active Anthony CARBONE Active ZOLOFT 50 MG TAB 1 tablet by mouth daily SERTRALINE HCL 79544230545 No Longer Active Anthony CARBONE Active ANUSOL-HC 2.5 % CREAM apply as needed HYDROCORTISONE (RECTAL) 07075884002 No Longer Active Anthony CARBONE Active COLACE 100 MG CAP 1 tab PO BID DOCUSATE SODIUM 44455298137 No Longer Active Anthony CARBONE Active TRINESSA (28) 0.18/0.215/0.25 MG-35 MCG TABS 1 po qd as directed NORGESTIM-ETH ESTRAD TRIPHASIC 02493261279 No Longer Active Anthony CARBONE Active [facility] MELATONIN 5 MG TABS 1-2 po qHS PRN Insomnia MELATONIN 59838882838 No Longer Active Anthony CARBONE Active NOVOLOG FLEXPEN 100 UNIT/ML SOPN Take 18 units TID with meals INSULIN ASPART 68223291657 Active Codey Hdez MD Active ACYCLOVIR 400 MG TABS ACYCLOVIR 96988778823 No Longer Active Ang Markham MD Active EMBRACE BLOOD GLUCOSE TEST STRP Test blood sugars 4 times daily and PRN 08/05 GLUCOSE BLOOD 54642179068 Active Ang Markham MD Active HYDROXYZINE HCL 25 MG TABS 1 tab PO tid PRN itching HYDROXYZINE HCL 75258086808 No Longer Active Ang Markham MD Active DIFLUCAN 150 MG TAB 1 qODay x 2 doses FLUCONAZOLE 05431571503 No Longer Active Da Romero APRN Active ACYCLOVIR 400 MG TABS 1 pill twice daily ACYCLOVIR 17797575745 No Longer Active Jillina Nick OSHEA Active AZITHROMYCIN 250 MG TABS 2 po qd x 1 day, then 1 po qd x 4 days AZITHROMYCIN 24886156332 No Longer Active Eri Borges MD PhD Active AZITHROMYCIN 250 MG TABS take 2 po day 1 then take1 po days 2-5 AZITHROMYCIN 50664550862 No Longer Active Octaviano CARBONE Active ACYCLOVIR 400 MG TABS 1 po qd ACYCLOVIR 38249709245 No Longer Active Ang Markham MD Active PROZAC 40 MG CAPS 1 cap by mouth at bedtime FLUOXETINE HCL 03135377893 No Longer Active Ang Markham MD Active HYDROXYZINE HCL 25 MG TABS 1 tab PO tid PRN itching HYDROXYZINE HCL 25 MG TABS 731600 HYDROXYZINE HCL Inactive [facility] MELATONIN 5 MG TABS 1-2 po qHS PRN Insomnia [facility] MELATONIN 5 MG TABS 256064 MELATONIN Inactive TRINESSA (28) 0.18/0.215/0.25 MG-35 MCG TABS 1 po qd as directed TRINESSA (28) 0.18/0.215/0.25 MG-35 MCG TABS 877056 NORGESTIM-ETH ESTRAD TRIPHASIC Inactive COLACE 100 MG CAP 1 tab PO BID COLACE 100 MG CAP 2458041 DOCUSATE SODIUM Inactive ANUSOL-HC 2.5 % CREAM apply as needed ANUSOL-HC 2.5 % CREAM 438294 HYDROCORTISONE (RECTAL) Inactive ZOLOFT 50 MG TAB 1 tablet by mouth daily ZOLOFT 50 MG TAB 121049 SERTRALINE HCL Inactive CEFTIN 500 MG TAB 1 tablet by mouth twice daily for 7 days 07/24 CEFTIN 500 MG TAB 499251 CEFUROXIME AXETIL Inactive NITROFURANTOIN MACROCRYSTAL 100 MG CAPS 1 capsule PO bid x 7 days NITROFURANTOIN MACROCRYSTAL 100 MG CAPS 5940077 NITROFURANTOIN MACROCRYSTAL Inactive IBUPROFEN 800 MG TABS 1 tab every 8 hours as needed for pain 2013 IBUPROFEN 800 MG TABS 765263 IBUPROFEN Inactive COLACE 100 MG CAP 1 po BID PRN Constipation COLACE 100 MG CAP 6431274 DOCUSATE SODIUM Inactive MELOXICAM 15 MG TABS 1 po qd PRN Knee Pain MELOXICAM 15 MG TABS 669027 MELOXICAM Inactive LEVEMIR FLEXPEN 100 UNIT/ML SOLN 40 units SC at bedtime LEVEMIR FLEXPEN 100 UNIT/ML SOLN INSULIN DETEMIR Inactive GENTAMICIN SULFATE 0.1 % EXT OINT Apply to open sores once a day. GENTAMICIN SULFATE 0.1 % EXT OINT 739940 GENTAMICIN SULFATE Inactive ACYCLOVIR 400 MG TABS 1 po qd ACYCLOVIR 400 MG TABS 19720928 ACYCLOVIR Inactive AZITHROMYCIN 250 MG TABS take 2 po day 1 then take1 po days 2-5 AZITHROMYCIN 250 MG TABS 5361543 AZITHROMYCIN Inactive AZITHROMYCIN 250 MG TABS 2 po qd x 1 day, then 1 po qd x 4 days AZITHROMYCIN 250 MG TABS 6574721 AZITHROMYCIN Inactive ACYCLOVIR 400 MG TABS 1 pill twice daily ACYCLOVIR 400 MG TABS 784432 ACYCLOVIR Inactive DIFLUCAN 150 MG TAB 1 qODay x 2 doses DIFLUCAN 150 MG TAB 153355 FLUCONAZOLE Inactive ACYCLOVIR 400 MG TABS ACYCLOVIR 400 MG TABS 359181 ACYCLOVIR Inactive DIFLUCAN 150 MG TAB 1 qODay x 2 doses DIFLUCAN 150 MG TAB 184457 FLUCONAZOLE Inactive BACTRIM DS 800-160 MG TAB 1 tab by mouth twice daily BACTRIM DS 800-160 MG TAB 164777 TRIMETHOPRIM-SULFAMETHOXAZOLE Inactive Advance Directives Directive Description Start [...] HGBA1C - Chemistry sodium, serum 134 mmol/L 632-722 4915/03/16 carbon dioxide, venous blood 34.5 mmol/L 21.0-32.0 potassium, serum 4.6 mmol/L 3.5-5.2 chloride, serum 93 mmol/L 98-107 blood glucose 408 mg/dL 65-110 urea nitrogen, blood 3 mg/dL 7-18 creatinine, serum 0.58 mg/dL 0.55-1.30 alanine aminotransferase (SGPT), serum 11 U/L 12-78 aspartate aminotransferase (SGOT), serum 8 U/L 15-37 calcium, serum 9.2 mg/dL 8.5-10.1 bilirubin, serum, total 0.30 mg/dL 0.00-1.00 cholesterol, serum 195 mg/dL 001-865 4650/03/16 triglyceride, serum, fasting 138 mg/dL 30-200 HDL [...] 0-19 Encounters Code Encounter Date Provider Facility CPT-56271 Level 3 Est. Patient 11:13:47 SAFETY PROFESSIONAL Ang Markham MD [facility] CPT-20263 Level 3 Est. Patient 11:59:20 SAFETY PROFESSIONAL Gloria Dunbar [facility] CPT-52318 Level 3 Est. Patient 17:32:37 SAFETY PROFESSIONAL Gloria Dunbar [facility] CPT-87472 Level 4 Est. Patient 16:39:07 CDT Ang Markham MD [facility] CPT-94985 Level 3 Est. Patient 16:35:50 CDT Ang Markham MD [facility] CPT-38408 Level 4 Est. Patient 13:53:06 SAFETY PROFESSIONAL Ang Markham MD [facility] CPT-77279 Level 3 Est. Patient 08:58:08 SAFETY PROFESSIONAL Ang Markham MD [facility] CPT-98483 Level 3 Est. Patient 18:48:29 CDT Anthony Whitfield [facility] CPT-60837 Level 3 Est. Patient 12:16:59 CDT Gabriel Hunt DO [facility] CPT-41504 Level 3 Est. Patient 18:57:15 CDT Anthony Whitfield [facility] CPT-50299 Level 3 Est. Patient 13:59:22 SAFETY PROFESSIONAL Ang Markham MD [facility] CPT-41454 Level 4 Est. Patient 10:36:08 SAFETY PROFESSIONAL Ang Markham MD [facility] CPT-38017 Level 3 Est. Patient 16:27:02 CDT Eri Borges MD PhD [facility] CPT-32099 Level 3 Est. Patient 10:36:43 CDT Octaviano CARBONE [facility] CPT-69210 Level 4 New Patient 08:58:06 CDT Ang Markham MD [facility] Procedures Code Procedure Name Date Entry Date Standard Description CPT-26226 Venipuncture Draw Fee 12:25:15 CDT CPT-35004 Knee 3V 16:48:40 CDT CPT-OV Office Visit 16:27:13 CDT CPT-OV Office Visit 16:21:19 CDT CPT-58226 Sono pelvis non OB uterus ovaries cervix 09:37:28 CDT
--- OUTSIDE RECORDS SUMMARY | 2018-12-22 01:23 | XMS REPORT | Clinical Summary ---
Author Author Admin, QIE Organization [employer] Address Unknown Phone Unavailable Allergies, Adverse Reactions, [...] I [juvenile type], not stated as uncontrolled half-way use 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 V58.67 Resolved Ang [...] Resolved Ang Markham MD Acute swimmers' ear manager terminal use 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 V58.67 Active Celestine [...] Diabetes mellitus, type I, with hypoglycemia ICD-250.81 aNthan Markham MD half-way use 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 ICD-V58.67 Nathan Markham MD Abdominal pain ICD-789.00 Nathan Markham MD Hematochezia ICD-578.1 Nathan Markham MD Nausea ICD-787.02 Nathan Markham MD 06/26 Otitis externa, acute, left ICD-380.12 Nathan Markham MD Medication List Medication Instructions Start Date Stop Date Generic Name NDC Status Provider Patient Instruction GEMFIBROZIL 600 MG TABS 1 po BID GEMFIBROZIL 80577070194 Active Ang Markham MD Active CORTISPORIN 3.5-68627-8 SOLN 4gtts in affected ear QID x 7 days [id number] 40196697298 No Longer Active Ang Markham MD Active TRESIBA FLEXTOUCH 200 UNIT/ML SC SOPN Take 70 units daily at mid-night to 1 am. INSULIN DEGLUDEC 76460835476 Active Celestine Sierraglari SUPERVISOR FARM EQUIPMENT MAINTENANCE Active LEVEMIR FLEXTOUCH 100 UNIT/ML SC SOPN 35 units SC at 12-1pm, 35 units 12-1am INSULIN DETEMIR 26055195543 No Longer Active Celestine PEARCE Active REGLAN 10 MG TAB 0.5 po TID 30min prior to meals METOCLOPRAMIDE HCL 72941838331 Active Ang Markham MD Active ZANTAC 150 MG TAB 1 po BID RANITIDINE HCL 06564914573 Active Ang Markham MD Active DOXEPIN HCL 10 MG CAP 1 tablet nightly for the itch DOXEPIN HCL 37750465950 Active Ang Markham MD Active COLACE 100 MG CAP 1 po daily DOCUSATE SODIUM 75076999689 Active Gabriel Hunt DO Active NOVOLOG FLEXPEN 100 UNIT/ML SOPN Take 20 units TID with meals, plus 2u/50 for blood sugars above 150. Ratio vs. Carbs INSULIN ASPART 82775339774 Active Gabriel Hunt DO Active BD PEN NEEDLE DINESH U/F 32G X 4 MM MISC 5 a day INSULIN PEN NEEDLE 43880776139 Active Janeyeh Ziglari SUPERVISOR FARM EQUIPMENT MAINTENANCE Active EMBRACE BLOOD GLUCOSE TEST STRP Test blood sugars 4 times daily and PRN 08/05 GLUCOSE BLOOD 92000410473 No Longer Active Malstepheneh Ziglari SUPERVISOR FARM EQUIPMENT MAINTENANCE Active TRUEPLUS LANCETS 30G MISC 4 a day LANCETS 32221486409 Active Maliheh Ziglari SUPERVISOR FARM EQUIPMENT MAINTENANCE Active TRUETEST TEST STRP check blood sugars 4x/day GLUCOSE BLOOD 65059331313 Active Maliheh Ziglari SUPERVISOR FARM EQUIPMENT MAINTENANCE Active TRUERESULT BLOOD GLUCOSE W/DEVICE KIT check blood sugars 4x a day BLOOD GLUCOSE MONITORING SUPPL 37408468176 Active Celestine PEARCE Active LISINOPRIL 5 MG TABS 1 po qd LISINOPRIL 94370856188 Active Ang Markham MD Active PAXIL 20 MG TAB 1 tablet by mouth daily PAROXETINE HCL 90623866778 Active Ang Markham MD Active GENTAMICIN SULFATE 0.1 % EXT OINT Apply to open sores once a day. GENTAMICIN SULFATE 13203382566 No Longer Active Ang Markham MD Active ZOLPIDEM TARTRATE 10 MG TABS 1 po qHS PRN Insomnia ZOLPIDEM TARTRATE 24869374519 Active Ang Markham MD Active BACTRIM DS 800-160 MG TAB 1 tab by mouth twice daily TRIMETHOPRIM-SULFAMETHOXAZOLE 24597372391 No Longer Active Gloria Dunbar EDGE DRUMMER Active LEVEMIR FLEXPEN 100 UNIT/ML SOLN 40 units SC at bedtime INSULIN DETEMIR No Longer Active Susan Arellano RMA Active INSUPEN ULTRAFIN 31G X 6 MM MISC Use with insulin qid. DX: E11.9 INSULIN PEN NEEDLE 51057003547 Active Ang Markham MD Active ZOLOFT 100 MG TAB 1 po qHS SERTRALINE HCL 81316739180 No Longer Active Ang Markham MD Active MELOXICAM 15 MG TABS 1 po qd PRN Knee Pain MELOXICAM 45331389252 No Longer Active Ang Markham MD Active LIPITOR 40 MG TAB 1 po qHS ATORVASTATIN CALCIUM 30610253512 Active Ang Markham MD Active METFORMIN HCL 1000 MG TABS 1 tablet by mouth twice daily METFORMIN HCL 96919098451 Active Ang Markham MD Active CYCLOBENZAPRINE HCL 5 MG TABS 1 po qHS PRN Muscle pain CYCLOBENZAPRINE HCL 75179551372 Active Ang Markham MD Active COLACE 100 MG CAP 1 po BID PRN Constipation DOCUSATE SODIUM 63484130494 No Longer Active Ang Markham MD Active HYDROXYZINE HCL 25 MG TAB 1 TID PRN nerves HYDROXYZINE HCL 87005841376 Active Ang Markham MD Active IBUPROFEN 800 MG TABS 1 tab every 8 hours as needed for pain 2013 IBUPROFEN 67420704322 No Longer Active Ang Markham MD Active NITROFURANTOIN MACROCRYSTAL 100 MG CAPS 1 capsule PO bid x 7 days NITROFURANTOIN MACROCRYSTAL 17847633446 No Longer Active Ang Markham MD Active DIFLUCAN 150 MG TAB 1 qODay x 2 doses FLUCONAZOLE 04999261489 No Longer Active Jillpiedad Romero EDGE DRUMMER Active CEFTIN 500 MG TAB 1 tablet by mouth twice daily for 7 days 07/24 CEFUROXIME AXETIL 40828152200 No Longer Active Anthnoy CARBONE Active ZOLOFT 50 MG TAB 1 tablet by mouth daily SERTRALINE HCL 06989984848 No Longer Active Anthony CARBONE Active ANUSOL-HC 2.5 % CREAM apply as needed HYDROCORTISONE (RECTAL) 50272119155 No Longer Active Anthony CARBONE Active COLACE 100 MG CAP 1 tab PO BID DOCUSATE SODIUM 26882739922 No Longer Active Anthony CARBONE Active TRINESSA (28) 0.18/0.215/0.25 MG-35 MCG TABS 1 po qd as directed NORGESTIM-ETH ESTRAD TRIPHASIC 81912739661 No Longer Active Anthony CARBONE Active [facility] MELATONIN 5 MG TABS 1-2 po qHS PRN Insomnia MELATONIN 23250842886 No Longer Active Anthony CARBONE Active ACYCLOVIR 400 MG TABS ACYCLOVIR 30768086747 No Longer Active Ang Markham MD Active HYDROXYZINE HCL 25 MG TABS 1 tab PO tid PRN itching HYDROXYZINE HCL 83273556733 No Longer Active Ang Markham MD Active DIFLUCAN 150 MG TAB 1 qODay x 2 doses FLUCONAZOLE 08131864117 No Longer Active Da Romero APRN Active ACYCLOVIR 400 MG TABS 1 pill twice daily ACYCLOVIR 84621511630 No Longer Active Da Romero APRN Active AZITHROMYCIN 250 MG TABS 2 po qd x 1 day, then 1 po qd x 4 days AZITHROMYCIN 44820342209 No Longer Active Eri Borges MD PhD Active AZITHROMYCIN 250 MG TABS take 2 po day 1 then take1 po days 2-5 AZITHROMYCIN 31402553559 No Longer Active Octaviano CARBONE Active ACYCLOVIR 400 MG TABS 1 po qd ACYCLOVIR 55149766641 No Longer Active Ang Markham MD Active PROZAC 40 MG CAPS 1 cap by mouth at bedtime FLUOXETINE HCL 15999995160 No Longer Active Ang Markham MD Active HYDROXYZINE HCL 25 MG TABS 1 tab PO tid PRN itching HYDROXYZINE HCL 25 MG TABS 725458 HYDROXYZINE HCL Inactive [facility] MELATONIN 5 MG TABS 1-2 po qHS PRN Insomnia [facility] MELATONIN 5 MG TABS 485668 MELATONIN Inactive TRINESSA (28) 0.18/0.215/0.25 MG-35 MCG TABS 1 po qd as directed TRINESSA (28) 0.18/0.215/0.25 MG-35 MCG TABS 526467 NORGESTIM-ETH ESTRAD TRIPHASIC Inactive COLACE 100 MG CAP 1 tab PO BID COLACE 100 MG CAP 0855911 DOCUSATE SODIUM Inactive ANUSOL-HC 2.5 % CREAM apply as needed ANUSOL-HC 2.5 % CREAM 657925 HYDROCORTISONE (RECTAL) Inactive ZOLOFT 50 MG TAB 1 tablet by mouth daily ZOLOFT 50 MG TAB 848213 SERTRALINE HCL Inactive CEFTIN 500 MG TAB 1 tablet by mouth twice daily for 7 days 07/24 CEFTIN 500 MG TAB 123873 CEFUROXIME AXETIL Inactive NITROFURANTOIN MACROCRYSTAL 100 MG CAPS 1 capsule PO bid x 7 days NITROFURANTOIN MACROCRYSTAL 100 MG CAPS 0318931 NITROFURANTOIN MACROCRYSTAL Inactive IBUPROFEN 800 MG TABS 1 tab every 8 hours as needed for pain 2013 IBUPROFEN 800 MG TABS 098238 IBUPROFEN Inactive COLACE 100 MG CAP 1 po BID PRN Constipation COLACE 100 MG CAP 5921482 DOCUSATE SODIUM Inactive MELOXICAM 15 MG TABS 1 po qd PRN Knee Pain MELOXICAM 15 MG TABS 618713 MELOXICAM Inactive LEVEMIR FLEXPEN 100 UNIT/ML SOLN 40 units SC at bedtime LEVEMIR FLEXPEN 100 UNIT/ML SOLN INSULIN DETEMIR Inactive GENTAMICIN SULFATE 0.1 % EXT OINT Apply to open sores once a day. GENTAMICIN SULFATE 0.1 % EXT OINT 839838 GENTAMICIN SULFATE Inactive EMBRACE BLOOD GLUCOSE TEST STRP Test blood sugars 4 times daily and PRN 08/05 EMBRACE BLOOD GLUCOSE TEST STRP GLUCOSE BLOOD Inactive LEVEMIR FLEXTOUCH 100 UNIT/ML SC SOPN 35 units SC at 12-1pm, 35 units 12-1am LEVEMIR FLEXTOUCH 100 UNIT/ML SC SOPN INSULIN DETEMIR Inactive CORTISPORIN 3.5-80022-2 SOLN 4gtts in affected ear QID x 7 days CORTISPORIN 3.5-14538-6 SOLN 065302 JILDAWZA-PZVMURNEG-YX Inactive ACYCLOVIR 400 MG TABS 1 po qd ACYCLOVIR 400 MG TABS 899433 ACYCLOVIR Inactive AZITHROMYCIN 250 MG TABS take 2 po day 1 then take1 po days 2-5 AZITHROMYCIN 250 MG TABS 5223454 AZITHROMYCIN Inactive AZITHROMYCIN 250 MG TABS 2 po qd x 1 day, then 1 po qd x 4 days AZITHROMYCIN 250 MG TABS 8301193 AZITHROMYCIN Inactive ACYCLOVIR 400 MG TABS 1 [...] HGBA1C - Chemistry sodium, serum 134 mmol/L 970-549 0804/03/16 carbon dioxide, venous blood 34.5 mmol/L 21.0-32.0 potassium, serum 4.6 mmol/L 3.5-5.2 chloride, serum 93 mmol/L 98-107 blood glucose 408 mg/dL 65-110 urea nitrogen, blood 3 mg/dL 7-18 creatinine, serum 0.58 mg/dL 0.55-1.30 alanine aminotransferase (SGPT), serum 11 U/L 12-78 aspartate aminotransferase (SGOT), serum 8 U/L 15-37 calcium, serum 9.2 mg/dL 8.5-10.1 bilirubin, serum, total 0.30 mg/dL 0.00-1.00 cholesterol, serum 195 mg/dL 146-243 6772/03/16 triglyceride, serum, fasting 138 mg/dL 30-200 HDL [...] 0.30 mg/dL 0.00-1.00 cholesterol, serum 221 mg/dL 861-264 5434/10/12 triglyceride, serum, fasting 590 mg/dL 30-200 HDL cholesterol, serum 45 mg/dL 32-96 LDL cholesterol, serum 58 mg/dL 0-130 blood glucose 547 mg/dL 65-110 chloride, serum 91 mmol/L 98-107 potassium, serum 3.9 mmol/L 3.5-5.2 carbon dioxide, venous blood 28.1 mmol/L 21.0-32.0 sodium, serum 130 mmol/L 136-145 Lab Report: HGBA1C - Chemistry hemoglobin A1C, blood, as % of total hemoglobin 11.4 % 4.3-6.0 Lab Report: MICROALB/CREAT W/RATIO - Chemistry albumin/creatinine ratio, urine > 300 mg/g mg/g{creat} 0-29 Lab Report: MICROALB/CREAT W/RATIO - Lab microalbumin, urine 150 0-19 Lab Report: UADIP W/MICRO, AUTO, CBC W/DIFF, Comp. Metabolic Panel - Chemistry sodium, serum 133 mmol/L 641-923 5762/06/03 carbon dioxide, venous blood 33.4 mmol/L 21.0-32.0 [...] pH, urine, semiquantitative 5.5 5.0-8.5 Lab Report[place] [facility] [place] human chorionic gonadotropin, urine, qualitative [...] mg/dL Encounters Code Encounter Date Provider Facility CPT-06399 Level 3 Est. Patient 13:22:25 CDT Gabriel Hunt [facility] CPT-15837 Level 4 Est. Patient 16:02:22 CDT Ang Markham MD [facility] CPT-79479 Level 3 Est. Patient 16:21:23 CDT Celestine Huerta [facility] CPT-10157 Level 3 Est. Patient 17:02:56 CDT Gabriel Hunt [facility] CPT-01329 Level 3 Est. Patient 14:46:22 CDT Da Romero [facility] CPT-27557 Level 4 Est. Patient 13:55:20 CDT Ang Markham MD [facility] CPT-45091 Level 4 Est. Patient 16:10:09 CDT Celestine Huerta [facility] CPT-50296 Level 3 Est. Patient 13:51:24 CDT Ang Markham MD [facility] CPT-72511 Level 3 Est. Patient 18:42:15 CDT Gabriel Hunt [facility] CPT-86866 Level 5 Est. Patient 14:40:14 CDT Celestine Huerta [facility] CPT-12771 Level 4 Est. Patient 14:36:17 CDT Agn Markham MD [facility] CPT-03953 Level 3 Est. Patient 11:13:47 SHODER FILLER Ang Markham MD [facility] CPT-55109 Level 3 Est. Patient 11:59:20 SHODER FILLER Gloria Dunbar [facility] CPT-93897 Level 3 Est. Patient 17:32:37 SHODER FILLER Gloria Dunbar [facility] CPT-27411 Level 4 Est. Patient 16:39:07 CDT Ang Markham MD [facility] CPT-12194 Level 3 Est. Patient 16:35:50 CDT Ang Markham MD [facility] CPT-11414 Level 4 Est. Patient 13:53:06 SHODER FILLER Ang Markham MD [facility] CPT-94128 Level 3 Est. Patient 08:58:08 SHODER FILLER Ang Markham MD [facility] CPT-55833 Level 3 Est. Patient 18:48:29 CDT Anthony Whitfield [facility] CPT-80861 Level 3 Est. Patient 12:16:59 CDT Gabriel Hunt DO [facility] CPT-04544 Level 3 Est. Patient 18:57:15 CDT Anthony Whitfield [facility] CPT-02072 Level 3 Est. Patient 13:59:22 SHODER FILLER Ang Markham MD [facility] CPT-81220 Level 4 Est. Patient 10:36:08 SHODER FILLER Ang Markham MD [facility] CPT-72113 Level 3 Est. Patient 16:27:02 CDT Eri Borges MD PhD [facility] CPT-08464 Level 3 Est. Patient 10:36:43 CDT Octaviano Dempsey [facility] CPT-49379 Level 4 New Patient 08:58:06 CDT Ang Markham MD [facility] Procedures Code Procedure Name Date Entry Date Standard Description CPT-04455 Lipid - LAB USE ONLY 15:28:39 CDT CPT-95811 CMP - LAB USE ONLY 15:28:39 CDT CPT-20884 Venipuncture Draw Fee 15:28:39 CDT CPT-46355 Abd compl w upright - XRAY USE ONLY 14:09:39 CDT 02/28 CPT-06914 Venipuncture Draw Fee 12:25:15 CDT CPT-85813 Knee 3V 16:48:40 CDT CPT-OV Office Visit 16:27:13 CDT CPT-OV Office Visit 16:21:19 CDT CPT-61555 Sono pelvis non OB uterus ovaries cervix 09:37:28 CDT
--- OUTSIDE RECORDS SUMMARY | 2018-12-22 01:24 | XMS REPORT | Clinical Summary ---
Author Author Admin, QIE Organization [employer] Address Unknown Phone Unavailable Allergies, Adverse Reactions, [...] vulva and vagina Insomnia 780.52 Active Ang Makrham MD Insomnia, unspecified Joint crepitus, knee 719.66 [...] I [juvenile type], not stated as uncontrolled group home use 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 V58.67 Resolved Ang [...] Markham MD Acute swimmers' ear long term acute care registered nurse use 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 V58.67 Active Celestine [...] Knee pain, bilateral ICD-719.46 Nathan Markham MD UTI ICD-599.0 Nathna Markham MD Insomnia ICD-780.52 Nathan Markham MD Diabetes mellitus ICD-250.00 Nathan Markham MD Vaginal discharge ICD-623.5 Nathan Markham MD Amenorrhea ICD-626.0 Nathan Markham MD Cellulitis, ankle, left ICD-682.6 Nathan Markham MD Diabetes mellitus, type I, with hypoglycemia ICD-250.81 Nathan Markham MD long term acute care registered nurse use 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 ICD-V58.67 Nathan Markham MD Abdominal pain ICD-789.00 Nathan Markham MD Hematochezia ICD-578.1 Nathan Markham MD Nausea ICD-787.02 Nathan Markham MD 06/26 Otitis externa, acute, left ICD-380.12 Nathan Markham MD Cystitis, acute ICD-595.0 Inactive Ang Markham MD Medication List Medication Instructions Start Date Stop Date Generic Name NDC Status Provider Patient Instruction TYLENOL WITH CODEINE #3 300-30 MG TABS 1 every four hours as needed for pain ACETAMINOPHEN-CODEINE 85050583460 Active Conner Hills MD Active CLINDAMYCIN HCL 300 MG ORAL CAPS 1 four times a day CLINDAMYCIN HCL 63292676200 Active Conner Hills MD Active LEVAQUIN 500 MG TABS 1 daily for infection LEVOFLOXACIN 32340178349 No Longer Active Conner Hills MD Active DOXEPIN HCL 10 MG CAP 1 tablet nightly for the itch DOXEPIN HCL 49969122686 No Longer Active Conner Hills MD Active TRESIBA FLEXTOUCH 200 UNIT/ML SC SOPN Take 70 units daily at mid-night to 1 am. INSULIN DEGLUDEC 06598532896 No Longer Active Conner Hills MD Active METFORMIN HCL 1000 MG TABS 1 tablet by mouth twice daily METFORMIN HCL 38286908799 No Longer Active Conner Hills MD Active LIPITOR 40 MG TAB 1 po qHS ATORVASTATIN CALCIUM 46515871857 No Longer Active Conner Hills MD Active GEMFIBROZIL 600 MG TABS 1 po BID GEMFIBROZIL 40547903806 No Longer Active Conner Hills MD Active CORTISPORIN 3.5-55164-3 SOLN 4gtts in affected ear QID x 7 days [id number] 63624814891 No Longer Active Ang Markham MD Active LEVEMIR FLEXTOUCH 100 UNIT/ML SC SOPN 35 units SC at 12-1pm, 35 units 12-1am INSULIN DETEMIR 80673052283 No Longer Active Celestine PEARCE Active REGLAN 10 MG TAB 0.5 po TID 30min prior to meals METOCLOPRAMIDE HCL 71886666660 Active Ang Markham MD Active ZANTAC 150 MG TAB 1 po BID RANITIDINE HCL 79403861075 Active Ang Markham MD Active COLACE 100 MG CAP 1 po daily DOCUSATE SODIUM 54011508259 Active Gabriel Hunt DO Active NOVOLOG FLEXPEN 100 UNIT/ML SOPN Take 20 units TID with meals, plus 2u/50 for blood sugars above 150. Ratio vs. Carbs INSULIN ASPART 34834285046 Active Gabriel Hunt DO Active BD PEN NEEDLE DINESH U/F 32G X 4 MM MISC 5 a day INSULIN PEN NEEDLE 20645042491 Active Malwalter Ziglari CUSTOMER SERVICE REPRESENTATIVE TELLER Active EMBRACE BLOOD GLUCOSE TEST STRP Test blood sugars 4 times daily and PRN 08/05 GLUCOSE BLOOD 18055971003 No Longer Active Malstepheneh Ziglari CUSTOMER SERVICE REPRESENTATIVE TELLER Active TRUEPLUS LANCETS 30G MISC 4 a day LANCETS 32982746032 Active Maliheh Ziglari CUSTOMER SERVICE REPRESENTATIVE TELLER Active TRUETEST TEST STRP check blood sugars 4x/day GLUCOSE BLOOD 43729182181 Active Maliheh Ziglari CUSTOMER SERVICE REPRESENTATIVE TELLER Active TRUERESULT BLOOD GLUCOSE W/DEVICE KIT check blood sugars 4x a day BLOOD GLUCOSE MONITORING SUPPL 09909949036 Active Malstepheneh Ziglari CUSTOMER SERVICE REPRESENTATIVE TELLER Active LISINOPRIL 5 MG TABS 1 po qd LISINOPRIL 92881230305 Active Ang Markham MD Active PAXIL 20 MG TAB 1 tablet by mouth daily PAROXETINE HCL 80602300391 Active Ang Markham MD Active GENTAMICIN SULFATE 0.1 % EXT OINT Apply to open sores once a day. GENTAMICIN SULFATE 82025930071 No Longer Active Ang Markham MD Active ZOLPIDEM TARTRATE 10 MG TABS 1 po qHS PRN Insomnia ZOLPIDEM TARTRATE 15466710574 Active Ang Markham MD Active BACTRIM DS 800-160 MG TAB 1 tab by mouth twice daily TRIMETHOPRIM-SULFAMETHOXAZOLE 80041990959 No Longer Active Gloria Dunbar HEREDITARY CANCER PROGRAM COORDINATOR Active LEVEMIR FLEXPEN 100 UNIT/ML SOLN 40 units SC at bedtime INSULIN DETEMIR No Longer Active Susan Arellano RMA Active INSUPEN ULTRAFIN 31G X 6 MM MISC Use with insulin qid. DX: E11.9 INSULIN PEN NEEDLE 81700221540 Active Ang Markham MD Active ZOLOFT 100 MG TAB 1 po qHS SERTRALINE HCL 96777261420 No Longer Active Ang Markham MD Active MELOXICAM 15 MG TABS 1 po qd PRN Knee Pain MELOXICAM 78418888937 No Longer Active Ang Markham MD Active CYCLOBENZAPRINE HCL 5 MG TABS 1 po qHS PRN Muscle pain CYCLOBENZAPRINE HCL 30921978122 Active Ang Markham MD Active COLACE 100 MG CAP 1 po BID PRN Constipation DOCUSATE SODIUM 02969237958 No Longer Active Ang Markham MD Active HYDROXYZINE HCL 25 MG TAB 1 TID PRN nerves HYDROXYZINE HCL 12539961886 Active Ang Markham MD Active IBUPROFEN 800 MG TABS 1 tab every 8 hours as needed for pain 2013 IBUPROFEN 59207480073 No Longer Active Ang Markham MD Active NITROFURANTOIN MACROCRYSTAL 100 MG CAPS 1 capsule PO bid x 7 days NITROFURANTOIN MACROCRYSTAL 79167759037 No Longer Active Ang Markham MD Active DIFLUCAN 150 MG TAB 1 qODay x 2 doses FLUCONAZOLE 85942741977 No Longer Active Da Romero APRN Active CEFTIN 500 MG TAB 1 tablet by mouth twice daily for 7 days 07/24 CEFUROXIME AXETIL 29672881959 No Longer Active Anthony CARBONE Active ZOLOFT 50 MG TAB 1 tablet by mouth daily SERTRALINE HCL 93205884901 No Longer Active Anthony CARBONE Active ANUSOL-HC 2.5 % CREAM apply as needed HYDROCORTISONE (RECTAL) 29376155285 No Longer Active Anthony CARBONE Active COLACE 100 MG CAP 1 tab PO BID DOCUSATE SODIUM 03718589462 No Longer Active Anthony CARBONE Active TRINESSA (28) 0.18/0.215/0.25 MG-35 MCG TABS 1 po qd as directed NORGESTIM-ETH ESTRAD TRIPHASIC 31222336198 No Longer Active Anthony CARBONE Active [facility] MELATONIN 5 MG TABS 1-2 po qHS PRN Insomnia MELATONIN 13300814120 No Longer Active Anthony CARBONE Active ACYCLOVIR 400 MG TABS ACYCLOVIR 25626147540 No Longer Active Ang Markham MD Active HYDROXYZINE HCL 25 MG TABS 1 tab PO tid PRN itching HYDROXYZINE HCL 81568355298 No Longer Active Ang Markham MD Active DIFLUCAN 150 MG TAB 1 qODay x 2 doses FLUCONAZOLE 48265921635 No Longer Active Da Romero APRN Active ACYCLOVIR 400 MG TABS 1 pill twice daily ACYCLOVIR 33294983017 No Longer Active Jillina Nick OSHEA Active AZITHROMYCIN 250 MG TABS 2 po qd x 1 day, then 1 po qd x 4 days AZITHROMYCIN 11877209000 No Longer Active Eri Borges MD PhD Active AZITHROMYCIN 250 MG TABS take 2 po day 1 then take1 po days 2-5 AZITHROMYCIN 19228893857 No Longer Active Octaviano CARBONE Active ACYCLOVIR 400 MG TABS 1 po qd ACYCLOVIR 90722241893 No Longer Active Ang Markham MD Active PROZAC 40 MG CAPS 1 cap by mouth at bedtime FLUOXETINE HCL 96014290283 No Longer Active Ang Markham MD Active HYDROXYZINE HCL 25 MG TABS 1 tab PO tid PRN itching HYDROXYZINE HCL 25 MG TABS 371557 HYDROXYZINE HCL Inactive [facility] MELATONIN 5 MG TABS 1-2 po qHS PRN Insomnia [facility] MELATONIN 5 MG TABS 345996 MELATONIN Inactive TRINESSA (28) 0.18/0.215/0.25 MG-35 MCG TABS 1 po qd as directed TRINESSA (28) 0.18/0.215/0.25 MG-35 MCG TABS 440576 NORGESTIM-ETH ESTRAD TRIPHASIC Inactive COLACE 100 MG CAP 1 tab PO BID COLACE 100 MG CAP 1506125 DOCUSATE SODIUM Inactive ANUSOL-HC 2.5 % CREAM apply as needed ANUSOL-HC 2.5 % CREAM 169483 HYDROCORTISONE (RECTAL) Inactive ZOLOFT 50 MG TAB 1 tablet by mouth daily ZOLOFT 50 MG TAB 342171 SERTRALINE HCL Inactive CEFTIN 500 MG TAB 1 tablet by mouth twice daily for 7 days 07/24 CEFTIN 500 MG TAB 807324 CEFUROXIME AXETIL Inactive NITROFURANTOIN MACROCRYSTAL 100 MG CAPS 1 capsule PO bid x 7 days NITROFURANTOIN MACROCRYSTAL 100 MG CAPS 9378742 NITROFURANTOIN MACROCRYSTAL Inactive IBUPROFEN 800 MG TABS 1 tab every 8 hours as needed for pain 2013 IBUPROFEN 800 MG TABS 627746 IBUPROFEN Inactive COLACE 100 MG CAP 1 po BID PRN Constipation COLACE 100 MG CAP 7399766 DOCUSATE SODIUM Inactive MELOXICAM 15 MG TABS 1 po qd PRN Knee Pain MELOXICAM 15 MG TABS 862474 MELOXICAM Inactive LEVEMIR FLEXPEN 100 UNIT/ML SOLN 40 units SC at bedtime LEVEMIR FLEXPEN 100 UNIT/ML SOLN INSULIN DETEMIR Inactive GENTAMICIN SULFATE 0.1 % EXT OINT Apply to open sores once a day. GENTAMICIN SULFATE 0.1 % EXT OINT 836640 GENTAMICIN SULFATE Inactive EMBRACE BLOOD GLUCOSE TEST STRP Test blood sugars 4 times daily and PRN 08/05 EMBRACE BLOOD GLUCOSE TEST STRP GLUCOSE BLOOD Inactive LEVEMIR FLEXTOUCH 100 UNIT/ML SC SOPN 35 units SC at 12-1pm, 35 units 12-1am LEVEMIR FLEXTOUCH 100 UNIT/ML SC SOPN INSULIN DETEMIR Inactive CORTISPORIN 3.5-41855-7 SOLN 4gtts in affected ear QID x 7 days CORTISPORIN 3.5-92469-0 SOLN 621251 [id number] Inactive GEMFIBROZIL 600 MG TABS 1 po BID GEMFIBROZIL 600 MG TABS 429484 GEMFIBROZIL Inactive LIPITOR 40 MG TAB 1 po qHS LIPITOR 40 MG TAB 847516 ATORVASTATIN CALCIUM Inactive METFORMIN HCL 1000 MG TABS 1 tablet by mouth twice daily METFORMIN HCL 1000 MG TABS 981715 METFORMIN HCL Inactive TRESIBA FLEXTOUCH 200 UNIT/ML SC SOPN Take 70 units daily at mid-night to 1 am. TRESIBA FLEXTOUCH 200 UNIT/ML SC SOPN INSULIN DEGLUDEC Inactive DOXEPIN HCL 10 MG CAP 1 tablet nightly for the itch DOXEPIN HCL 10 MG CAP 6891582 DOXEPIN HCL Inactive LEVAQUIN 500 MG TABS 1 daily for infection LEVAQUIN 500 MG TABS 040948 LEVOFLOXACIN Inactive ACYCLOVIR 400 MG TABS 1 po qd ACYCLOVIR 400 MG TABS 804393 ACYCLOVIR Inactive AZITHROMYCIN 250 MG TABS take 2 po day 1 then take1 po days 2-5 AZITHROMYCIN 250 MG TABS 4030120 AZITHROMYCIN Inactive AZITHROMYCIN 250 MG TABS 2 po qd x 1 day, then 1 po qd x 4 days AZITHROMYCIN 250 MG TABS 4455577 AZITHROMYCIN Inactive ACYCLOVIR 400 MG TABS 1 pill twice daily ACYCLOVIR 400 MG TABS 19720928 ACYCLOVIR Inactive DIFLUCAN 150 MG TAB 1 qODay x 2 doses DIFLUCAN 150 MG TAB 628666 FLUCONAZOLE Inactive ACYCLOVIR 400 MG TABS ACYCLOVIR 400 MG TABS 19720928 ACYCLOVIR Inactive DIFLUCAN 150 MG TAB 1 qODay x 2 doses DIFLUCAN 150 MG TAB 19760606 FLUCONAZOLE Inactive BACTRIM DS 800-160 MG TAB 1 tab by mouth twice daily BACTRIM DS 800-160 MG TAB 721026 TRIMETHOPRIM-SULFAMETHOXAZOLE Inactive Advance Directives Directive Description Start [...] Panel - Chemistry sodium, serum 130 mmol/L 693-830 1330/10/12 carbon dioxide, venous blood 28.1 mmol/L 21.0-32.0 potassium, serum 3.9 mmol/L 3.5-5.2 chloride, serum 91 mmol/L 98-107 blood glucose 547 mg/dL 65-110 urea nitrogen, blood 3 mg/dL 7-18 creatinine, serum 0.78 mg/dL 0.55-1.30 alanine aminotransferase (SGPT), serum 11 U/L 12-78 aspartate aminotransferase (SGOT), serum 7 U/L 15-37 calcium, serum 8.8 mg/dL 8.5-10.1 bilirubin, serum, total 0.30 mg/dL 0.00-1.00 cholesterol, serum 221 mg/dL 383-333 6020/10/12 triglyceride, serum, fasting 590 mg/dL 30-200 HDL cholesterol, serum 45 mg/dL 32-96 LDL cholesterol, serum 58 mg/dL 0-130 Lab Report: HGBA1C - Chemistry hemoglobin A1C, blood, as % of total hemoglobin 11.4 % 4.3-6.0 Lab Report: UADIP W/MICRO, AUTO, CBC W/DIFF, Comp. Metabolic Panel - Chemistry RBC, urine, dipstick Negative Negative sodium, serum 133 mmol/L 611-521 2035/06/03 carbon dioxide, venous blood 33.4 mmol/L 21.0-32.0 [...] nitrite, urine, semiquantitative Negative Negative Lab Report: [facility] [place] [...] mg/dL Encounters Code Encounter Date Provider Facility CPT-14427 Level 3 Est. Patient 10:22:30 CDT Conner Hills MD [facility] CPT-63363 Level 3 Est. Patient 15:02:19 CDT Shreya Velazquez [facility] CPT-53164 Level 3 Est. Patient 13:22:25 CDT Gabriel Hunt [facility] CPT-80262 Level 4 Est. Patient 16:02:22 CDT Ang Markham MD [facility] CPT-63847 Level 3 Est. Patient 16:21:23 [email or web address] CPT-95029 Level 3 Est. Patient 17:02:56 CDT Gabriel Hunt [facility] CPT-71554 Level 3 Est. Patient 14:46:22 CDT Da Romero [facility] CPT-30084 Level 4 Est. Patient 13:55:20 CDT Ang Markham MD [facility] CPT-02418 Level 4 Est. Patient 16:10:09 CDT Celestine Huerta [facility] CPT-86183 Level 3 Est. Patient 13:51:24 CDT Ang Markham MD [facility] CPT-89325 Level 3 Est. Patient 18:42:15 CDT Gabriel Hunt [facility] CPT-43838 Level 5 Est. Patient 14:40:14 CDT [facility] CPT-00372 Level 4 Est. Patient 14:36:17 CDT Ang Markham MD [facility] CPT-43955 Level 3 Est. Patient 11:13:47 NETWORK PLANNER Ang Markham MD [facility] CPT-08380 Level 3 Est. Patient 11:59:20 NETWORK PLANNER Gloria Dunbar [facility] CPT-18189 Level 3 Est. Patient 17:32:37 NETWORK PLANNER Gloria Dunbar [facility] CPT-01334 Level 4 Est. Patient 16:39:07 CDT Ang Markham MD [facility] CPT-97005 Level 3 Est. Patient 16:35:50 CDT Ang Markham MD [facility] CPT-38636 Level 4 Est. Patient 13:53:06 NETWORK PLANNER Ang Markham MD [facility] CPT-17564 Level 3 Est. Patient 08:58:08 NETWORK PLANNER Ang Markham MD [facility] CPT-02087 Level 3 Est. Patient 18:48:29 CDT Anthony Whitfield [facility] CPT-77708 Level 3 Est. Patient 12:16:59 CDT Gabriel Hunt DO [facility] CPT-12982 Level 3 Est. Patient 18:57:15 CDT Anthony Whitfield [facility] CPT-27548 Level 3 Est. Patient 13:59:22 NETWORK PLANNER Ang Markham MD [facility] CPT-33096 Level 4 Est. Patient 10:36:08 NETWORK PLANNER Ang Markham MD [facility] CPT-04805 Level 3 Est. Patient 16:27:02 CDT Eri Borges MD PhD [facility] CPT-04066 Level 3 Est. Patient 10:36:43 CDT Octaviano Dempsey [facility] CPT-81782 Level 4 New Patient 08:58:06 CDT Ang Markham MD [facility] Procedures Code Procedure Name Date Entry Date Standard Description CPT-20248 LS spine comp w obliques - XRAY USE ONLY 15:34:48 CDT CPT-58624 Lipid - LAB USE ONLY 15:28:39 CDT CPT-96134 CMP - LAB USE ONLY 15:28:39 CDT CPT-19046 Venipuncture Draw Fee 15:28:39 CDT CPT-44352 Abd compl w upright - XRAY USE ONLY 14:09:39 CDT 02/28 CPT-99964 Venipuncture Draw Fee 12:25:15 CDT CPT-17250 Knee 3V 16:48:40 CDT CPT-OV Office Visit 16:27:13 CDT CPT-OV Office Visit 16:21:19 CDT CPT-68104 Sono pelvis non OB uterus ovaries cervix 09:37:28 CDT
--- OUTSIDE RECORDS SUMMARY | 2018-12-22 01:24 | XMS REPORT | Clinical Summary ---
Author Author Admin, QIE Organization [employer] Address Unknown Phone Unavailable Allergies, Adverse Reactions, [...] Inactive Ang Markham MD Diabetes mellitus ICD-250.00 Natahn Markham MD Vaginal discharge ICD-623.5 Inactive Ang Markham MD Amenorrhea ICD-626.0 Inactive Agn Markham MD Cellulitis, ankle, left ICD-682.6 Nathan Markham MD Medication List Medication Instructions Start Date Stop Date Generic Name NDC Status Provider Patient Instruction LISINOPRIL 5 MG TABS 1 po qd LISINOPRIL 54674200992 Active Ang Markham MD Active NOVOLOG FLEXPEN 100 UNIT/ML SOPN Take 20 units TID with meals INSULIN ASPART 71099882341 Wiley Markham MD Active LEVEMIR FLEXTOUCH 100 UNIT/ML SC SOPN 60 units SC nightly INSULIN DETEMIR 70740580877 Wiley Markham MD Active COLACE 100 MG CAP 1 po BID PRN Constipation DOCUSATE SODIUM 29214969450 Wiley Markham MD Active PAXIL 20 MG TAB 1 tablet by mouth daily PAROXETINE HCL 41857972575 Wiley Markham MD Active GENTAMICIN SULFATE 0.1 % EXT OINT Apply to open sores once a day. GENTAMICIN SULFATE 42411648297 No Longer Active Ang Markham MD Active ZOLPIDEM TARTRATE 10 MG TABS 1 po qHS PRN Insomnia ZOLPIDEM TARTRATE 42738908994 Active Ang Markham MD Active BACTRIM DS 800-160 MG TAB 1 tab by mouth twice daily TRIMETHOPRIM-SULFAMETHOXAZOLE 40758294669 No Longer Active Gloria Jefersonum CELL ASSEMBLY PINNER Active LEVEMIR FLEXPEN 100 UNIT/ML SOLN 40 units SC at bedtime INSULIN DETEMIR No Longer Active Susankalen Arellano RMA Active INSUPEN ULTRAFIN 31G X 6 MM MISC Use with insulin qid. DX: E11.9 INSULIN PEN NEEDLE 15942190044 Active Ang Markham MD Active ZOLOFT 100 MG TAB 1 po qHS SERTRALINE HCL 55743092975 No Longer Active Ang Markahm MD Active MELOXICAM 15 MG TABS 1 po qd PRN Knee Pain MELOXICAM 94757634008 No Longer Active Ang Markham MD Active LIPITOR 40 MG TAB 1 po qHS ATORVASTATIN CALCIUM 91865217529 Active Ang Markham MD Active METFORMIN HCL 1000 MG TABS 1 tablet by mouth twice daily METFORMIN HCL 56319922229 Active Ang Markham MD Active CYCLOBENZAPRINE HCL 5 MG TABS 1 po qHS PRN Muscle pain CYCLOBENZAPRINE HCL 10565534896 Active Ang Markham MD Active COLACE 100 MG CAP 1 po BID PRN Constipation DOCUSATE SODIUM 19856003557 No Longer Active Ang Markham MD Active HYDROXYZINE HCL 25 MG TAB 1 TID PRN nerves HYDROXYZINE HCL 02682162786 Active Ang Markham MD Active IBUPROFEN 800 MG TABS 1 tab every 8 hours as needed for pain 2013 IBUPROFEN 23403347092 No Longer Active Ang Markham MD Active NITROFURANTOIN MACROCRYSTAL 100 MG CAPS 1 capsule PO bid x 7 days NITROFURANTOIN MACROCRYSTAL 69851850733 No Longer Active Ang Markham MD Active DIFLUCAN 150 MG TAB 1 qODay x 2 doses FLUCONAZOLE 27542124931 No Longer Active Da Romero APRN Active CEFTIN 500 MG TAB 1 tablet by mouth twice daily for 7 days 07/24 CEFUROXIME AXETIL 83125675880 No Longer Active Anthony CARBONE Active ZOLOFT 50 MG TAB 1 tablet by mouth daily SERTRALINE HCL 38832203858 No Longer Active Anthony CARBONE Active ANUSOL-HC 2.5 % CREAM apply as needed HYDROCORTISONE (RECTAL) 43443282171 No Longer Active Anthony CARBONE Active COLACE 100 MG CAP 1 tab PO BID DOCUSATE SODIUM 74986351474 No Longer Active Anthony CARBONE Active TRINESSA (28) 0.18/0.215/0.25 MG-35 MCG TABS 1 po qd as directed NORGESTIM-ETH ESTRAD TRIPHASIC 62509607466 No Longer Active Anthony CARBONE Active [facility] MELATONIN 5 MG TABS 1-2 po qHS PRN Insomnia MELATONIN 68041422995 No Longer Active Anthony CARBONE Active ACYCLOVIR 400 MG TABS ACYCLOVIR 65379673221 No Longer Active Ang Markham MD Active EMBRACE BLOOD GLUCOSE TEST STRP Test blood sugars 4 times daily and PRN 08/05 GLUCOSE BLOOD 89061546993 Active Ang Markham MD Active HYDROXYZINE HCL 25 MG TABS 1 tab PO tid PRN itching HYDROXYZINE HCL 71105898644 No Longer Active Ang Markham MD Active DIFLUCAN 150 MG TAB 1 qODay x 2 doses FLUCONAZOLE 83390530487 No Longer Active Da Romero APRN Active ACYCLOVIR 400 MG TABS 1 pill twice daily ACYCLOVIR 15577377852 No Longer Active Da Romero APRN Active AZITHROMYCIN 250 MG TABS 2 po qd x 1 day, then 1 po qd x 4 days AZITHROMYCIN 96377024749 No Longer Active Eri Borges MD PhD Active AZITHROMYCIN 250 MG TABS take 2 po day 1 then take1 po days 2-5 AZITHROMYCIN 51478243527 No Longer Active Octaviano CARBONE Active ACYCLOVIR 400 MG TABS 1 po qd ACYCLOVIR 51072449833 No Longer Active Ang Markham MD Active PROZAC 40 MG CAPS 1 cap by mouth at bedtime FLUOXETINE HCL 01477940719 No Longer Active Ang Markham MD Active HYDROXYZINE HCL 25 MG TABS 1 tab PO tid PRN itching HYDROXYZINE HCL 25 MG TABS 137433 HYDROXYZINE HCL Inactive [facility] MELATONIN 5 MG TABS 1-2 po qHS PRN Insomnia [facility] MELATONIN 5 MG TABS 642443 MELATONIN Inactive TRINESSA (28) 0.18/0.215/0.25 MG-35 MCG TABS 1 po qd as directed TRINESSA (28) 0.18/0.215/0.25 MG-35 MCG TABS 332764 NORGESTIM-ETH ESTRAD TRIPHASIC Inactive COLACE 100 MG CAP 1 tab PO BID COLACE 100 MG CAP 5747964 DOCUSATE SODIUM Inactive ANUSOL-HC 2.5 % CREAM apply as needed ANUSOL-HC 2.5 % CREAM 292492 HYDROCORTISONE (RECTAL) Inactive ZOLOFT 50 MG TAB 1 tablet by mouth daily ZOLOFT 50 MG TAB 842552 SERTRALINE HCL Inactive CEFTIN 500 MG TAB 1 tablet by mouth twice daily for 7 days 07/24 CEFTIN 500 MG TAB 857641 CEFUROXIME AXETIL Inactive NITROFURANTOIN MACROCRYSTAL 100 MG CAPS 1 capsule PO bid x 7 days NITROFURANTOIN MACROCRYSTAL 100 MG CAPS 0181777 NITROFURANTOIN MACROCRYSTAL Inactive IBUPROFEN 800 MG TABS 1 tab every 8 hours as needed for pain 2013 IBUPROFEN 800 MG TABS 330810 IBUPROFEN Inactive COLACE 100 MG CAP 1 po BID PRN Constipation COLACE 100 MG CAP 2474897 DOCUSATE SODIUM Inactive MELOXICAM 15 MG TABS 1 po qd PRN Knee Pain MELOXICAM 15 MG TABS 634547 MELOXICAM Inactive LEVEMIR FLEXPEN 100 UNIT/ML SOLN 40 units SC at bedtime LEVEMIR FLEXPEN 100 UNIT/ML SOLN INSULIN DETEMIR Inactive GENTAMICIN SULFATE 0.1 % EXT OINT Apply to open sores once a day. GENTAMICIN SULFATE 0.1 % EXT OINT 056723 GENTAMICIN SULFATE Inactive ACYCLOVIR 400 MG TABS 1 po qd ACYCLOVIR 400 MG TABS 19720928 ACYCLOVIR Inactive AZITHROMYCIN 250 MG TABS take 2 po day 1 then take1 po days 2-5 AZITHROMYCIN 250 MG TABS 3097409 AZITHROMYCIN Inactive AZITHROMYCIN 250 MG TABS 2 po qd x 1 day, then 1 po qd x 4 days AZITHROMYCIN 250 MG TABS 0335325 AZITHROMYCIN Inactive ACYCLOVIR 400 MG TABS 1 pill twice daily ACYCLOVIR 400 MG TABS 475065 ACYCLOVIR Inactive DIFLUCAN 150 MG TAB 1 qODay x 2 doses DIFLUCAN 150 MG TAB 690252 FLUCONAZOLE Inactive ACYCLOVIR 400 MG TABS ACYCLOVIR 400 MG TABS 719916 ACYCLOVIR Inactive DIFLUCAN 150 MG TAB 1 qODay x 2 doses DIFLUCAN 150 MG TAB 848529 FLUCONAZOLE Inactive BACTRIM DS 800-160 MG TAB 1 tab by mouth twice daily BACTRIM DS 800-160 MG TAB 162187 TRIMETHOPRIM-SULFAMETHOXAZOLE Inactive Advance Directives Directive Description Start [...] HGBA1C - Chemistry sodium, serum 134 mmol/L 635-621 3750/03/16 carbon dioxide, venous blood 34.5 mmol/L 21.0-32.0 potassium, serum 4.6 mmol/L 3.5-5.2 chloride, serum 93 mmol/L 98-107 blood glucose 408 mg/dL 65-110 urea nitrogen, blood 3 mg/dL 7-18 creatinine, serum 0.58 mg/dL 0.55-1.30 alanine aminotransferase (SGPT), serum 11 U/L 12-78 aspartate aminotransferase (SGOT), serum 8 U/L 15-37 calcium, serum 9.2 mg/dL 8.5-10.1 bilirubin, serum, total 0.30 mg/dL 0.00-1.00 cholesterol, serum 195 mg/dL 125-222 4315/03/16 triglyceride, serum, fasting 138 mg/dL 30-200 HDL [...] 0-19 Encounters Code Encounter Date Provider Facility CPT-37402 Level 4 Est. Patient 14:36:17 CDT Ang Markham MD [facility] CPT-89902 Level 3 Est. Patient 11:13:47 CHAIR PAD MAKER Ang Markham MD [facility] CPT-13606 Level 3 Est. Patient 11:59:20 CHAIR PAD MAKER Gloria Dunbar [facility] CPT-62142 Level 3 Est. Patient 17:32:37 CHAIR PAD MAKER Gloria Dunbar [facility] CPT-14862 Level 4 Est. Patient 16:39:07 CDT Ang Markham MD [facility] CPT-32789 Level 3 Est. Patient 16:35:50 CDT Ang Markham MD [facility] CPT-71335 Level 4 Est. Patient 13:53:06 CHAIR PAD MAKER Ang Markham MD [facility] CPT-56267 Level 3 Est. Patient 08:58:08 CHAIR PAD MAKER Ang Markham MD [facility] CPT-22892 Level 3 Est. Patient 18:48:29 CDT Anthony Whitfield [facility] CPT-21795 Level 3 Est. Patient 12:16:59 CDT Gabriel Hunt DO [facility] CPT-95786 Level 3 Est. Patient 18:57:15 CDT Anthony Whitfield [facility] CPT-47129 Level 3 Est. Patient 13:59:22 CHAIR PAD MAKER Ang Markham MD [facility] CPT-95228 Level 4 Est. Patient 10:36:08 CHAIR PAD MAKER Ang Markham MD [facility] CPT-67935 Level 3 Est. Patient 16:27:02 CDT Eri Borges MD [facility] CPT-57524 Level 3 Est. Patient 10:36:43 CDT Octaviano Wilkersonjj [facility] CPT-79298 Level 4 New Patient 08:58:06 CDT Ang Markham MD [facility] Procedures Code Procedure Name Date Entry Date Standard Description CPT-96209 Venipuncture Draw Fee 12:25:15 CDT CPT-38025 Knee 3V 16:48:40 CDT CPT-OV Office Visit 16:27:13 CDT CPT-OV Office Visit 16:21:19 CDT CPT-42633 Sono pelvis non OB uterus ovaries cervix 09:37:28 CDT
--- OUTSIDE RECORDS SUMMARY | 2018-12-22 01:25 | XMS REPORT | Clinical Summary ---
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 Ratio vs. Carbs INSULIN ASPART 74161143452 Active Gabriel Hunt DO Active BD PEN NEEDLE DINESH U/F 32G X 4 MM MISC 5 a day INSULIN PEN NEEDLE 34161638106 Active Maliheh Ziglari SENIOR RELIABILITY ENGINEER Active LEVEMIR FLEXTOUCH 100 UNIT/ML SC SOPN 30 units SC at 12-1pm, 30 units 12-1am INSULIN DETEMIR 51486875177 Active Maliheh Ziglari SENIOR RELIABILITY ENGINEER Active EMBRACE BLOOD GLUCOSE TEST STRP Test blood sugars 4 times daily and PRN 08/05 GLUCOSE BLOOD 93705549464 No Longer Active Maliheh Ziglari SENIOR RELIABILITY ENGINEER Active TRUEPLUS LANCETS 30G MISC 4 a day LANCETS 81360293353 Active Maliheh Ziglari SENIOR RELIABILITY ENGINEER Active TRUETEST TEST STRP check blood sugars 4x/day GLUCOSE BLOOD 10397360296 Active Maliheh Ziglari SENIOR RELIABILITY ENGINEER Active TRUERESULT BLOOD GLUCOSE W/DEVICE KIT check blood sugars 4x a day BLOOD GLUCOSE MONITORING SUPPL 17631139666 Active Maliheh Ziglari SENIOR RELIABILITY ENGINEER Active LISINOPRIL 5 MG TABS 1 po qd LISINOPRIL 79128664077 Active Ang Markham MD Active PAXIL 20 MG TAB 1 tablet by mouth daily PAROXETINE HCL 98205843542 Active Ang Markham MD Active GENTAMICIN SULFATE 0.1 % EXT OINT Apply to open sores once a day. GENTAMICIN SULFATE 95978060667 No Longer Active Ang Markham MD Active ZOLPIDEM TARTRATE 10 MG TABS 1 po qHS PRN Insomnia ZOLPIDEM TARTRATE 76551651342 Active Ang Markham MD Active BACTRIM DS 800-160 MG TAB 1 tab by mouth twice daily TRIMETHOPRIM-SULFAMETHOXAZOLE 47578289150 No Longer Active Gloria Dunbar CIVIL ENGINEER Active LEVEMIR FLEXPEN 100 UNIT/ML SOLN 40 units SC at bedtime INSULIN DETEMIR No Longer Active Susan Arellano RMA Active INSUPEN ULTRAFIN 31G X 6 MM MISC Use with insulin qid. DX: E11.9 INSULIN PEN NEEDLE 14942603876 Active Ang Markham MD Active ZOLOFT 100 MG TAB 1 po qHS SERTRALINE HCL 06033936257 No Longer Active Ang Markham MD Active MELOXICAM 15 MG TABS 1 po qd PRN Knee Pain MELOXICAM 62810414340 No Longer Active Ang Markham MD Active LIPITOR 40 MG TAB 1 po qHS ATORVASTATIN CALCIUM 21609499848 Active Ang Markham MD Active METFORMIN HCL 1000 MG TABS 1 tablet by mouth twice daily METFORMIN HCL 03694073999 Active Ang Markham MD Active CYCLOBENZAPRINE HCL 5 MG TABS 1 po qHS PRN Muscle pain CYCLOBENZAPRINE HCL 27252500857 Active Ang Markham MD Active COLACE 100 MG CAP 1 po BID PRN Constipation DOCUSATE SODIUM 39511835072 No Longer Active Ang Markham MD Active HYDROXYZINE HCL 25 MG TAB 1 TID PRN nerves HYDROXYZINE HCL 41859993016 Active Ang Markham MD Active IBUPROFEN 800 MG TABS 1 tab every 8 hours as needed for pain 2013 IBUPROFEN 96218232317 No Longer Active Ang Markham MD Active NITROFURANTOIN MACROCRYSTAL 100 MG CAPS 1 capsule PO bid x 7 days NITROFURANTOIN MACROCRYSTAL 75915339395 No Longer Active Ang Markham MD Active DIFLUCAN 150 MG TAB 1 qODay x 2 doses FLUCONAZOLE 29300443744 No Longer Active Da Romero CIVIL ENGINEER Active CEFTIN 500 MG TAB 1 tablet by mouth twice daily for 7 days 07/24 CEFUROXIME AXETIL 14739787026 No Longer Active Anthony CARBONE Active ZOLOFT 50 MG TAB 1 tablet by mouth daily SERTRALINE HCL 53285458586 No Longer Active Anthony CARBONE Active ANUSOL-HC 2.5 % CREAM apply as needed HYDROCORTISONE (RECTAL) 79655182257 No Longer Active Anthony CARBONE Active COLACE 100 MG CAP 1 tab PO BID DOCUSATE SODIUM 47201318935 No Longer Active Anthony CARBONE Active TRINESSA (28) 0.18/0.215/0.25 MG-35 MCG TABS 1 po qd as directed NORGESTIM-ETH ESTRAD TRIPHASIC 22984079222 No Longer Active Anthony CARBONE Active [facility] MELATONIN 5 MG TABS 1-2 po qHS PRN Insomnia MELATONIN 24065553344 No Longer Active Anthony CARBONE Active ACYCLOVIR 400 MG TABS ACYCLOVIR 20699041035 No Longer Active Ang Markham MD Active HYDROXYZINE HCL 25 MG TABS 1 tab PO tid PRN itching HYDROXYZINE HCL 34743572097 No Longer Active Ang Markham MD Active DIFLUCAN 150 MG TAB 1 qODay x 2 doses FLUCONAZOLE 60491017818 No Longer Active Da Romero APRN Active ACYCLOVIR 400 MG TABS 1 pill twice daily ACYCLOVIR 23055388948 No Longer Active Da Romero APRN Active AZITHROMYCIN 250 MG TABS 2 po qd x 1 day, then 1 po qd x 4 days AZITHROMYCIN 63429379214 No Longer Active Eri Borges MD PhD Active AZITHROMYCIN 250 MG TABS take 2 po day 1 then take1 po days 2-5 AZITHROMYCIN 66726322720 No Longer Active Octaviano CARBONE Active ACYCLOVIR 400 MG TABS 1 po qd ACYCLOVIR 82541438071 No Longer Active Ang Markham MD Active PROZAC 40 MG CAPS 1 cap by mouth at bedtime FLUOXETINE HCL 33727466527 No Longer Active Ang Markham MD Active HYDROXYZINE HCL 25 MG TABS 1 tab PO tid PRN itching HYDROXYZINE HCL 25 MG TABS 743282 HYDROXYZINE HCL Inactive [facility] MELAT[facility]IN 5 MG TABS 1-2 po qHS PRN Insomnia [facility] MELATONIN 5 MG TABS 175008 MELATONIN Inactive TRINESSA (28) 0.18/0.215/0.25 MG-35 MCG TABS 1 po qd as directed TRINESSA (28) 0.18/0.215/0.25 MG-35 MCG TABS 117745 NORGESTIM-ETH ESTRAD TRIPHASIC Inactive COLACE 100 MG CAP 1 tab PO BID COLACE 100 MG CAP 2243567 DOCUSATE SODIUM Inactive ANUSOL-HC 2.5 % CREAM apply as needed ANUSOL-HC 2.5 % CREAM 597253 HYDROCORTISONE (RECTAL) Inactive ZOLOFT 50 MG TAB 1 tablet by mouth daily ZOLOFT 50 MG TAB 485566 SERTRALINE HCL Inactive CEFTIN 500 MG TAB 1 tablet by mouth twice daily for 7 days 07/24 CEFTIN 500 MG TAB 832159 CEFUROXIME AXETIL Inactive NITROFURANTOIN MACROCRYSTAL 100 MG CAPS 1 capsule PO bid x 7 days NITROFURANTOIN MACROCRYSTAL 100 MG CAPS 1837833 NITROFURANTOIN MACROCRYSTAL Inactive IBUPROFEN 800 MG TABS 1 tab every 8 hours as needed for pain 2013 IBUPROFEN 800 MG TABS 030545 IBUPROFEN Inactive COLACE 100 MG CAP 1 po BID PRN Constipation COLACE 100 MG CAP 7780064 DOCUSATE SODIUM Inactive MELOXICAM 15 MG TABS 1 po qd PRN Knee Pain MELOXICAM 15 MG TABS 262834 MELOXICAM Inactive LEVEMIR FLEXPEN 100 UNIT/ML SOLN 40 units SC at bedtime LEVEMIR FLEXPEN 100 UNIT/ML SOLN INSULIN DETEMIR Inactive GENTAMICIN SULFATE 0.1 % EXT OINT Apply to open sores once a day. GENTAMICIN SULFATE 0.1 % EXT OINT 331763 GENTAMICIN SULFATE Inactive EMBRACE BLOOD GLUCOSE TEST STRP Test blood sugars 4 times daily and PRN 08/05 EMBRACE BLOOD GLUCOSE TEST STRP GLUCOSE BLOOD Inactive ACYCLOVIR 400 MG TABS 1 po qd ACYCLOVIR 400 MG TABS 19720928 ACYCLOVIR Inactive AZITHROMYCIN 250 MG TABS take 2 po day 1 then take1 po days 2-5 AZITHROMYCIN 250 MG TABS 4866227 AZITHROMYCIN Inactive AZITHROMYCIN 250 MG TABS 2 po qd x 1 day, then 1 po qd x 4 days AZITHROMYCIN 250 MG TABS 9710444 AZITHROMYCIN Inactive ACYCLOVIR 400 MG TABS 1 pill twice daily ACYCLOVIR 400 MG TABS 19720928 ACYCLOVIR Inactive DIFLUCAN 150 MG TAB 1 qODay x 2 doses DIFLUCAN 150 MG TAB 895774 FLUCONAZOLE Inactive ACYCLOVIR 400 MG TABS ACYCLOVIR 400 MG TABS 19720928 ACYCLOVIR Inactive DIFLUCAN 150 MG TAB 1 qODay x 2 doses DIFLUCAN 150 MG TAB 903896 FLUCONAZOLE Inactive BACTRIM DS 800-160 MG TAB 1 tab by mouth twice daily BACTRIM DS 800-160 MG TAB 319210 TRIMETHOPRIM-SULFAMETHOXAZOLE Inactive Advance Directives Directive Description Start [...] HGBA1C - Chemistry sodium, serum 134 mmol/L 873-122 0052/03/16 carbon dioxide, venous blood 34.5 mmol/L 21.0-32.0 potassium, serum 4.6 mmol/L 3.5-5.2 chloride, serum 93 mmol/L 98-107 blood glucose 408 mg/dL 65-110 urea nitrogen, blood 3 mg/dL 7-18 creatinine, serum 0.58 mg/dL 0.55-1.30 alanine aminotransferase (SGPT), serum 11 U/L 12-78 aspartate aminotransferase (SGOT), serum 8 U/L 15-37 calcium, serum 9.2 mg/dL 8.5-10.1 bilirubin, serum, total 0.30 mg/dL 0.00-1.00 cholesterol, serum 195 mg/dL 007-243 7500/03/16 triglyceride, serum, fasting 138 mg/dL 30-200 HDL [...] Lab microalbumin, urine 150 0-19 [place] [facility] [place] human chorionic gonadotropin, urine, qualitative (urine test) Negative Negative Office Visit: Diabetes Visit - Chemistry cholesterol, target level 200 mg/dL triglyceride, target level 200 mg/dL HDL cholesterol, serum, target level 35 mg/dL LDL target level 100 mg/dL home glucose monitor utilized Yes Encounters Code Encounter Date Provider Facility CPT-35102 Level 3 Est. Patient 13:51:24 CDT Ang Markham MD [facility] CPT-81562 Level 3 Est. Patient 18:42:15 CDT Gabriel Hunt [facility] CPT-66308 Level 5 Est. Patient 14:40:14 [facility] Level 4 Est. Patient 14:36:17 CDT Ang Markham MD [facility] CPT-62141 Level 3 Est. Patient 11:13:47 COURT BAILIFF Ang Markham MD [facility] CPT-94529 Level 3 Est. Patient 11:59:20 COURT BAILIFF Gloria Dunbar [facility] CPT-05250 Level 3 Est. Patient 17:32:37 COURT BAILIFF Gloria Dunbar [facility] CPT-18603 Level 4 Est. Patient 16:39:07 CDT Ang Markham MD [facility] CPT-69447 Level 3 Est. Patient 16:35:50 CDT Ang Markham MD [facility] CPT-22722 Level 4 Est. Patient 13:53:06 COURT BAILIFF Ang Markham MD [facility] CPT-47406 Level 3 Est. Patient 08:58:08 COURT BAILIFF Ang Markham MD [facility] CPT-35009 Level 3 Est. Patient 18:48:29 CDT Anthony Whitfield [facility] CPT-06122 Level 3 Est. Patient 12:16:59 CDT Gabriel Hunt DO [facility] CPT-79805 Level 3 Est. Patient 18:57:15 CDT Anthony Whitfield [facility] CPT-38183 Level 3 Est. Patient 13:59:22 COURT BAILIFF Ang Markham MD [facility] CPT-69689 Level 4 Est. Patient 10:36:08 COURT BAILIFF Ang Markham MD [facility] CPT-73771 Level 3 Est. Patient 16:27:02 CDT Eri Borges MD PhD [facility] CPT-50805 Level 3 Est. Patient 10:36:43 CDT Octaviano CARBONE [facility] CPT-74842 Level 4 New Patient 08:58:06 CDT Ang Markham MD [facility] Procedures Code Procedure Name Date Entry Date Standard Description CPT-09686 Abd compl w upright - XRAY USE ONLY 14:09:39 CDT 02/28 CPT-04356 Venipuncture Draw Fee 12:25:15 CDT CPT-48294 Knee 3V 16:48:40 CDT CPT-OV Office Visit 16:27:13 CDT CPT-OV Office Visit 16:21:19 CDT CPT-28043 Sono pelvis non OB uterus ovaries cervix 09:37:28 CDT
--- OUTSIDE RECORDS SUMMARY | 2018-12-22 01:26 | XMS REPORT | Clinical Summary ---
Author Author Admin, E Organization [facility] Address Unknown Phone Unavailable Allergies, [...] Resolved Ang Markham MD Acute swimmers' ear custodial use 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 V58.67 Active Celestine PEARCE Long-term (current) use of insulin Diabetes mellitus ICD-250.00 Inactive Ang Markham MD DEPRESSION ICD-311 Inactive Ang Markham MD LOM ICD-382.9 Inactive Eri Borges MD PhD PSORIASIS ICD-696.1 Inactive Ang Markham MD AMENORRHEA ICD-626.0 Inactive Eri Borges MD PhD Constipation ICD-564.00 Inactive Ang Markham MD Anal or rectal pain ICD-569.42 Inactive Ang Markham MD ABDOMINAL PAIN RIGHT LOWER QUADRANT ICD-789.03 Inactive Eri Borges MD PhD Joint crepitus, knee ICD-719.66 Inactive Ang Markham MD Knee pain, bilateral ICD-719.46 Inactive Ang Markham MD SINUSITIS, ACUTE ICD-461.9 Inactive Ang Markham MD CANDIDAL VAGINITIS ICD-112.1 Inactive Ang Markham MD Insomnia ICD-780.52 Inactive Ang Markham MD Diabetes mellitus ICD-250.00 Inactive Ang Markham MD Vaginal discharge ICD-623.5 Inactive Ang Markham MD Amenorrhea ICD-626.0 Inactive Ang Markham MD Cystitis, acute ICD-595.0 Inactive Ang Markham MD Diabetes mellitus, type I, with hypoglycemia ICD-250.81 Nathan Markham MD site inspector use 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 ICD-V58.67 Nathan Markham MD Abdominal pain ICD-789.00 Inactive Ang Markham MD Hematochezia ICD-578.1 Inactive Ang Markham MD Nausea ICD-787.02 Nathan Markham MD 06/26 Otitis externa, acute, left ICD-380.12 Nathan Markham MD UTI ICD-599.0 Inactive Ang Markham MD Cellulitis, ankle, left ICD-682.6 Nathan Markham MD Medication List Medication Instructions Start Date Stop Date Generic Name NDC Status Provider Patient Instruction GEMFIBROZIL 600 MG TABS 1 po BID GEMFIBROZIL 57489698346 Active Ang Markham MD Active CORTISPORIN 3.5-15123-1 SOLN 4gtts in affected ear QID x 7 days [id number] 16328271989 No Longer Active Ang Markham MD Active TRESIBA FLEXTOUCH 200 UNIT/ML SC SOPN Take 70 units daily at mid-night to 1 am. INSULIN DEGLUDEC 37652368781 Active Celestine Sierraglari DELIVERY AND MAIL SORTER Active LEVEMIR FLEXTOUCH 100 UNIT/ML SC SOPN 35 units SC at 12-1pm, 35 units 12-1am INSULIN DETEMIR 17322636879 No Longer Active Celestine PEARCE Active REGLAN 10 MG TAB 0.5 po TID 30min prior to meals METOCLOPRAMIDE HCL 85471101652 Active Ang Markham MD Active ZANTAC 150 MG TAB 1 po BID RANITIDINE HCL 80638123392 Active Ang Markham MD Active DOXEPIN HCL 10 MG CAP 1 tablet nightly for the itch DOXEPIN HCL 69144387312 Active Ang Markham MD Active COLACE 100 MG CAP 1 po daily DOCUSATE SODIUM 78363947953 Active Gabriel Hunt DO Active NOVOLOG FLEXPEN 100 UNIT/ML SOPN Take 20 units TID with meals, plus 2u/50 for blood sugars above 150. Ratio vs. Carbs INSULIN ASPART 02980335477 Active Gabriel Hunt DO Active BD PEN NEEDLE DINESH U/F 32G X 4 MM MISC 5 a day INSULIN PEN NEEDLE 32986564581 Active Malstepheneh Ziglari DELIVERY AND MAIL SORTER Active EMBRACE BLOOD GLUCOSE TEST STRP Test blood sugars 4 times daily and PRN 08/05 GLUCOSE BLOOD 94048058073 No Longer Active Malstepheneh Ziglari DELIVERY AND MAIL SORTER Active TRUEPLUS LANCETS 30G MISC 4 a day LANCETS 21536879033 Active Maliheh Ziglari DELIVERY AND MAIL SORTER Active TRUETEST TEST STRP check blood sugars 4x/day GLUCOSE BLOOD 98006756642 Active Maliheh Ziglari DELIVERY AND MAIL SORTER Active TRUERESULT BLOOD GLUCOSE W/DEVICE KIT check blood sugars 4x a day BLOOD GLUCOSE MONITORING SUPPL 41978816024 Active Celestine PEARCE Active LISINOPRIL 5 MG TABS 1 po qd LISINOPRIL 77959976266 Active Ang Markham MD Active PAXIL 20 MG TAB 1 tablet by mouth daily PAROXETINE HCL 98359552196 Active Ang Markham MD Active GENTAMICIN SULFATE 0.1 % EXT OINT Apply to open sores once a day. GENTAMICIN SULFATE 20224916370 No Longer Active Ang Markham MD Active ZOLPIDEM TARTRATE 10 MG TABS 1 po qHS PRN Insomnia ZOLPIDEM TARTRATE 06595090087 Active Ang Markham MD Active BACTRIM DS 800-160 MG TAB 1 tab by mouth twice daily TRIMETHOPRIM-SULFAMETHOXAZOLE 32458219517 No Longer Active Gloria Dunbar LIFT MANAGER Active LEVEMIR FLEXPEN 100 UNIT/ML SOLN 40 units SC at bedtime INSULIN DETEMIR No Longer Active Susan Arellano RMA Active INSUPEN ULTRAFIN 31G X 6 MM MISC Use with insulin qid. DX: E11.9 INSULIN PEN NEEDLE 94546879468 Active Ang Markham MD Active ZOLOFT 100 MG TAB 1 po qHS SERTRALINE HCL 23967670195 No Longer Active Ang Markham MD Active MELOXICAM 15 MG TABS 1 po qd PRN Knee Pain MELOXICAM 64752501627 No Longer Active Ang Markham MD Active LIPITOR 40 MG TAB 1 po qHS ATORVASTATIN CALCIUM 48280861919 Active Ang Markham MD Active METFORMIN HCL 1000 MG TABS 1 tablet by mouth twice daily METFORMIN HCL 43981282761 Active Ang Markham MD Active CYCLOBENZAPRINE HCL 5 MG TABS 1 po qHS PRN Muscle pain CYCLOBENZAPRINE HCL 42285900975 Active Ang Markham MD Active COLACE 100 MG CAP 1 po BID PRN Constipation DOCUSATE SODIUM 42126022107 No Longer Active Ang Markham MD Active HYDROXYZINE HCL 25 MG TAB 1 TID PRN nerves HYDROXYZINE HCL 55330776243 Active Ang Markham MD Active IBUPROFEN 800 MG TABS 1 tab every 8 hours as needed for pain 2013 IBUPROFEN 36401554686 No Longer Active Ang Markham MD Active NITROFURANTOIN MACROCRYSTAL 100 MG CAPS 1 capsule PO bid x 7 days NITROFURANTOIN MACROCRYSTAL 72452328601 No Longer Active Ang Markham MD Active DIFLUCAN 150 MG TAB 1 qODay x 2 doses FLUCONAZOLE 36287612386 No Longer Active Jillpiedad Romero APRN Active CEFTIN 500 MG TAB 1 tablet by mouth twice daily for 7 days 07/24 CEFUROXIME AXETIL 12402896508 No Longer Active Anthony CARBONE Active ZOLOFT 50 MG TAB 1 tablet by mouth daily SERTRALINE HCL 05845949224 No Longer Active Anthony CARBONE Active ANUSOL-HC 2.5 % CREAM apply as needed HYDROCORTISONE (RECTAL) 69246190460 No Longer Active Anthony CARBONE Active COLACE 100 MG CAP 1 tab PO BID DOCUSATE SODIUM 47448950753 No Longer Active Anthony CARBONE Active TRINESSA (28) 0.18/0.215/0.25 MG-35 MCG TABS 1 po qd as directed NORGESTIM-ETH ESTRAD TRIPHASIC 08155255438 No Longer Active Anthony CARBONE Active [facility] MELATONIN 5 MG TABS 1-2 po qHS PRN Insomnia MELATONIN 19741664155 No Longer Active Anthony CARBONE Active ACYCLOVIR 400 MG TABS ACYCLOVIR 86472122267 No Longer Active Ang Markham MD Active HYDROXYZINE HCL 25 MG TABS 1 tab PO tid PRN itching HYDROXYZINE HCL 62107745890 No Longer Active Ang Markham MD Active DIFLUCAN 150 MG TAB 1 qODay x 2 doses FLUCONAZOLE 82529751007 No Longer Active Da Romero APRN Active ACYCLOVIR 400 MG TABS 1 pill twice daily ACYCLOVIR 74351347362 No Longer Active Da Romero APRN Active AZITHROMYCIN 250 MG TABS 2 po qd x 1 day, then 1 po qd x 4 days AZITHROMYCIN 42186907568 No Longer Active Eri Borges MD PhD Active AZITHROMYCIN 250 MG TABS take 2 po day 1 then take1 po days 2-5 AZITHROMYCIN 18707431420 No Longer Active Octaviano CARBONE Active ACYCLOVIR 400 MG TABS 1 po qd ACYCLOVIR 96641446845 No Longer Active Ang Markham MD Active PROZAC 40 MG CAPS 1 cap by mouth at bedtime FLUOXETINE HCL 14329093379 No Longer Active Ang Markham MD Active HYDROXYZINE HCL 25 MG TABS 1 tab PO tid PRN itching HYDROXYZINE HCL 25 MG TABS 918226 HYDROXYZINE HCL Inactive [facility] MELATONIN 5 MG TABS 1-2 po qHS PRN Insomnia [facility] MELATONIN 5 MG TABS 966442 MELATONIN Inactive TRINESSA (28) 0.18/0.215/0.25 MG-35 MCG TABS 1 po qd as directed TRINESSA (28) 0.18/0.215/0.25 MG-35 MCG TABS 883576 NORGESTIM-ETH ESTRAD TRIPHASIC Inactive COLACE 100 MG CAP 1 tab PO BID COLACE 100 MG CAP 6345626 DOCUSATE SODIUM Inactive ANUSOL-HC 2.5 % CREAM apply as needed ANUSOL-HC 2.5 % CREAM 936431 HYDROCORTISONE (RECTAL) Inactive ZOLOFT 50 MG TAB 1 tablet by mouth daily ZOLOFT 50 MG TAB 247978 SERTRALINE HCL Inactive CEFTIN 500 MG TAB 1 tablet by mouth twice daily for 7 days 07/24 CEFTIN 500 MG TAB 578320 CEFUROXIME AXETIL Inactive NITROFURANTOIN MACROCRYSTAL 100 MG CAPS 1 capsule PO bid x 7 days NITROFURANTOIN MACROCRYSTAL 100 MG CAPS 9424295 NITROFURANTOIN MACROCRYSTAL Inactive IBUPROFEN 800 MG TABS 1 tab every 8 hours as needed for pain 2013 IBUPROFEN 800 MG TABS 426777 IBUPROFEN Inactive COLACE 100 MG CAP 1 po BID PRN Constipation COLACE 100 MG CAP 1427504 DOCUSATE SODIUM Inactive MELOXICAM 15 MG TABS 1 po qd PRN Knee Pain MELOXICAM 15 MG TABS 543560 MELOXICAM Inactive LEVEMIR FLEXPEN 100 UNIT/ML SOLN 40 units SC at bedtime LEVEMIR FLEXPEN 100 UNIT/ML SOLN INSULIN DETEMIR Inactive GENTAMICIN SULFATE 0.1 % EXT OINT Apply to open sores once a day. GENTAMICIN SULFATE 0.1 % EXT OINT 963773 GENTAMICIN SULFATE Inactive EMBRACE BLOOD GLUCOSE TEST STRP Test blood sugars 4 times daily and PRN 08/05 EMBRACE BLOOD GLUCOSE TEST STRP GLUCOSE BLOOD Inactive LEVEMIR FLEXTOUCH 100 UNIT/ML SC SOPN 35 units SC at 12-1pm, 35 units 12-1am LEVEMIR FLEXTOUCH 100 UNIT/ML SC SOPN INSULIN DETEMIR Inactive CORTISPORIN 3.5-29829-4 SOLN 4gtts in affected ear QID x 7 days CORTISPORIN 3.5-11836-2 SOLN 653240 [id number] Inactive ACYCLOVIR 400 MG TABS 1 po qd ACYCLOVIR 400 MG TABS 980372 ACYCLOVIR Inactive AZITHROMYCIN 250 MG TABS take 2 po day 1 then take1 po days 2-5 AZITHROMYCIN 250 MG TABS 3151710 AZITHROMYCIN Inactive AZITHROMYCIN 250 MG TABS 2 po qd x 1 day, then 1 po qd x 4 days AZITHROMYCIN 250 MG TABS 6484550 AZITHROMYCIN Inactive ACYCLOVIR 400 MG TABS 1 [...] twice daily BACTRIM DS 800-160 MG TAB 297993 TRIMETHOPRIM-SULFAMETHOXAZOLE Inactive Advance Directives Directive Description Start [...] HGBA1C - Chemistry sodium, serum 134 mmol/L 846-637 2151/03/16 carbon dioxide, venous blood 34.5 mmol/L 21.0-32.0 potassium, serum 4.6 mmol/L 3.5-5.2 chloride, serum 93 mmol/L 98-107 blood glucose 408 mg/dL 65-110 urea nitrogen, blood 3 mg/dL 7-18 creatinine, serum 0.58 mg/dL 0.55-1.30 alanine aminotransferase (SGPT), serum 11 U/L 12-78 aspartate aminotransferase (SGOT), serum 8 U/L 15-37 calcium, serum 9.2 mg/dL 8.5-10.1 bilirubin, serum, total 0.30 mg/dL 0.00-1.00 cholesterol, serum 195 mg/dL 482-321 3720/03/16 triglyceride, serum, fasting 138 mg/dL 30-200 HDL cholesterol, serum 41 mg/dL 32-96 LDL cholesterol, serum 126 mg/dL 0-130 hemoglobin A1C, blood, as % of total hemoglobin 13.6 % 4.3-6.0 Lab Report: CBC, Comp. Metabolic Panel, Lipid Panel, HGBA1C - Hematology mean corpuscular volume, RBC 81 fL 80-97 hematocrit, blood 40.8 % 36.0-46.0 mean corpuscular hemoglobin, RBC 26.3 pg 27.0-31.2 mean corpuscular hemoglobin concentration, RBC 32.6 G/DL % 31.8- 35.4 red blood cell distribution width 14.2 % 11.6-14.8 platelet count 429 10^3/MM^3 10*3/mm3 104-845 8704/03/16 hemoglobin, blood 13.3 g/dL 12.0-16.0 erythrocyte (RBC) count 5.06 10^6/MM^3 10*6/mm3 4.04-5.48 leukocyte count, blood 15.0 10^3/MM^3 10*3/mm3 4.6-10.2 Lab Report: Comp. Metabolic Panel, Lipid Panel - Chemistry urea nitrogen, blood 3 mg/dL 7-18 creatinine, serum 0.78 mg/dL 0.55-1.30 alanine aminotransferase (SGPT), serum 11 U/L 12-78 aspartate aminotransferase (SGOT), serum 7 U/L 15-37 calcium, serum 8.8 mg/dL 8.5-10.1 bilirubin, serum, total 0.30 mg/dL 0.00-1.00 cholesterol, serum 221 mg/dL 557-901 7535/10/12 triglyceride, serum, fasting 590 mg/dL 30-200 HDL cholesterol, serum 45 mg/dL 32-96 LDL cholesterol, serum 58 mg/dL 0-130 sodium, serum 130 mmol/L 419-466 3432/10/12 carbon dioxide, venous blood 28.1 mmol/L 21.0-32.0 potassium, serum 3.9 mmol/L 3.5-5.2 chloride, serum 91 mmol/L 98-107 blood glucose 547 mg/dL 65-110 Lab Report: HGBA1C - Chemistry hemoglobin A1C, [...] protein, total urine random Negative mg/dL Negative aspartate aminotransferase (SGOT), serum 15 U/L 15-37 calcium, serum 9.2 mg/dL 8.5-10.1 sodium, serum 133 mmol/L 609-585 5162/06/03 carbon dioxide, venous blood 33.4 mmol/L 21.0-32.0 potassium, serum 4.3 mmol/L 3.5-5.2 chloride, serum 97 mmol/L 98-107 blood glucose 450 mg/dL 65-110 urea nitrogen, blood 9 mg/dL 7-18 creatinine, serum 0.68 mg/dL 0.55-1.30 alanine aminotransferase (SGPT), serum 18 U/L 12-78 bilirubin, serum, total 0.20 mg/dL 0.00-1.00 Lab [...] CBC W/DIFF, Comp. Metabolic Panel - Urinalysis pH, urine, semiquantitative 5.5 5.0-8.5 urine color Yellow Colorless;Lightyellow;Straw;Yellow appearance, urine SlCloudy Clear urobilinogen, urine, semiquantitative (dipstick) 0.2 Normal leukocyte esterase, urine, by dipstick Negative Negative nitrite, urine, semiquantitative Negative Negative glucose, urine, semiquantitative 3+ Negative ketones, urine, by test strip Negative Negative bilirubin, urine Negative Negative specific gravity, urine 1.015 1.000-1.030 Lab Report: [facility] [place] Chemistry human chorionic gonadotropin, urine, qualitative [...] mg/dL Encounters Code Encounter Date Provider Facility CPT-19716 Level 4 Est. Patient 16:02:22 CDT Ang Markham MD [facility] CPT-56240 Level 3 Est. Patient 16:21:23 CDT Celestine Huerta [facility] CPT-78785 Level 3 Est. Patient 17:02:56 CDT Gabriel [facility] CPT-87461 Level 3 Est. Patient 14:46:22 CDT Da Romero [facility] CPT-83331 Level 4 Est. Patient 13:55:20 CDT Ang Markham MD [facility] CPT-94806 Level 4 Est. Patient 16:10:09 [facility] 3 Est. Patient 13:51:24 CDT Ang Markham MD [facility] CPT-91481 Level 3 Est. Patient 18:42:15 CDT [facility] CPT-83051 Level 5 Est. Patient 14:40:14 CDT Celestine Huerta [facility] CPT-68679 Level 4 Est. Patient 14:36:17 CDT Ang Markham MD [facility] CPT-78739 Level 3 Est. Patient 11:13:47 COFFEE BREAK ATTENDANT Ang Markham MD [facility] CPT-63292 Level 3 Est. Patient 11:59:20 COFFEE BREAK ATTENDANT Gloria Dunbar [facility] CPT-15345 Level 3 Est. Patient 17:32:37 COFFEE BREAK ATTENDANT Gloria Dunbar [facility] CPT-77453 Level 4 Est. Patient 16:39:07 CDT Ang Markham MD [facility] CPT-20981 Level 3 Est. Patient 16:35:50 CDT Ang Markham MD [facility] CPT-49135 Level 4 Est. Patient 13:53:06 COFFEE BREAK ATTENDANT Ang Markham MD [facility] CPT-05315 Level 3 Est. Patient 08:58:08 COFFEE BREAK ATTENDANT Ang Markham MD [facility] CPT-74633 Level 3 Est. Patient 18:48:29 CDT Anthony Whitfield [facility] CPT-69341 Level 3 Est. Patient 12:16:59 CDT Gabriel Hunt DO [facility] CPT-29252 Level 3 Est. Patient 18:57:15 CDT Anthony Whitfield [facility] CPT-01520 Level 3 Est. Patient 13:59:22 COFFEE BREAK ATTENDANT Agn Markham MD [facility] CPT-96389 Level 4 Est. Patient 10:36:08 COFFEE BREAK ATTENDANT Ang Markham MD [facility] CPT-74054 Level 3 Est. Patient 16:27:02 CDT Eri Borges MD PhD [facility] CPT-95110 Level 3 Est. Patient 10:36:43 CDT Octaviano Dempsey [facility] CPT-51024 Level 4 New Patient 08:58:06 CDT Ang Markham MD [facility] Procedures Code Procedure Name Date Entry Date Standard Description CPT-44196 Lipid - LAB USE ONLY 15:28:39 CDT CPT-66694 CMP - LAB USE ONLY 15:28:39 CDT CPT-48573 Venipuncture Draw Fee 15:28:39 CDT CPT-61741 Abd compl w upright - XRAY USE ONLY 14:09:39 CDT 02/28 CPT-44578 Venipuncture Draw Fee 12:25:15 CDT CPT-69600 Knee 3V 16:48:40 CDT CPT-OV Office Visit 16:27:13 CDT CPT-OV Office Visit 16:21:19 CDT CPT-69543 Sono pelvis non OB uterus ovaries cervix 09:37:28 CDT
--- OUTSIDE RECORDS SUMMARY | 2018-12-22 01:26 | XMS REPORT | Clinical Summary ---
Author Author Admin, ALEXANDER Organization [facility] Address Unknown Phone Unavailable Allergies, Adverse [...] Cellulitis, ankle, left 682.6 Active Gloriajuliette Dunbar GRAIN CLEANER AND TRANSFER OPERATOR Cellulitis and abscess of leg, except foot [...] Markham MD Vaginal discharge ICD-623.5 Inactive Ang Markahm MD Amenorrhea ICD-626.0 Inactive Ang Markham MD Medication List Medication Instructions Start Date Stop Date Generic Name NDC Status Provider Patient Instruction ZOLPIDEM TARTRATE 10 MG TABS 1 po qHS PRN Insomnia ZOLPIDEM TARTRATE 25073672701 Active Ang Markham MD Active GENTAMICIN SULFATE 0.1 % EXT OINT Apply to open sores once a day. GENTAMICIN SULFATE 03373711825 Active Gloria Yokum GRAIN CLEANER AND TRANSFER OPERATOR Active BACTRIM DS 800-160 MG TAB 1 tab by mouth twice daily TRIMETHOPRIM-SULFAMETHOXAZOLE 57178553950 No Longer Active Gloria Yokum GRAIN CLEANER AND TRANSFER OPERATOR Active LEVEMIR FLEXTOUCH 100 UNIT/ML SC SOPN 40 units SC nightly INSULIN DETEMIR 82132977101 Active Ang Markham MD Active LEVEMIR FLEXPEN 100 UNIT/ML SOLN 40 units SC at bedtime INSULIN DETEMIR No Longer Active Susan PETTYA Active INSUPEN ULTRAFIN 31G X 6 MM MISC Use with insulin qid. DX: E11.9 INSULIN PEN NEEDLE 46129891126 Active Ang Markham MD Active ZOLOFT 100 MG TAB 1 po qHS SERTRALINE HCL 74995011843 Active Ang Markham MD Active MELOXICAM 15 MG TABS 1 po qd PRN Knee Pain MELOXICAM 32880356944 No Longer Active Ang Markham MD Active LIPITOR 40 MG TAB 1 po qHS ATORVASTATIN CALCIUM 07160137061 Active Ang Markham MD Active METFORMIN HCL 1000 MG TABS 1 tablet by mouth twice daily METFORMIN HCL 85902444585 Active Ang Markham MD Active CYCLOBENZAPRINE HCL 5 MG TABS 1 po qHS PRN Muscle pain CYCLOBENZAPRINE HCL 30790471930 Active Ang Markham MD Active COLACE 100 MG CAP 1 po BID PRN Constipation DOCUSATE SODIUM 05326670827 No Longer Active Ang Markham MD Active HYDROXYZINE HCL 25 MG TAB 1 TID PRN nerves HYDROXYZINE HCL 76585192039 Active Ang Markham MD Active IBUPROFEN 800 MG TABS 1 tab every 8 hours as needed for pain 2013 IBUPROFEN 37291306400 No Longer Active Ang Markham MD Active NITROFURANTOIN MACROCRYSTAL 100 MG CAPS 1 capsule PO bid x 7 days NITROFURANTOIN MACROCRYSTAL 86527302050 No Longer Active Ang Markham MD Active DIFLUCAN 150 MG TAB 1 qODay x 2 doses FLUCONAZOLE 45712930712 No Longer Active Da Romero APRN Active CEFTIN 500 MG TAB 1 tablet by mouth twice daily for 7 days 07/24 CEFUROXIME AXETIL 56695957325 No Longer Active Anthony CARBONE Active ZOLOFT 50 MG TAB 1 tablet by mouth daily SERTRALINE HCL 27557723239 No Longer Active Anthony CARBONE Active ANUSOL-HC 2.5 % CREAM apply as needed HYDROCORTISONE (RECTAL) 55345932047 No Longer Active Anthony CARBONE Active COLACE 100 MG CAP 1 tab PO BID DOCUSATE SODIUM 78199058955 No Longer Active Anthony CARBONE Active TRINESSA (28) 0.18/0.215/0.25 MG-35 MCG TABS 1 po qd as directed NORGESTIM-ETH ESTRAD TRIPHASIC 26211799553 No Longer Active Anthony CARBONE Active [facility] MELATONIN 5 MG TABS 1-2 po qHS PRN Insomnia MELATONIN 05319729324 No Longer Active Anthony CARBONE Active NOVOLOG FLEXPEN 100 UNIT/ML SOPN Take 18 units TID with meals INSULIN ASPART 63930470501 Active Codey Hdez MD Active ACYCLOVIR 400 MG TABS ACYCLOVIR 49939493518 No Longer Active Ang Markham MD Active EMBRACE BLOOD GLUCOSE TEST STRP Test blood sugars 4 times daily and PRN 08/05 GLUCOSE BLOOD 69678875377 Active Ang Markham MD Active HYDROXYZINE HCL 25 MG TABS 1 tab PO tid PRN itching HYDROXYZINE HCL 54951169796 No Longer Active Ang Markham MD Active DIFLUCAN 150 MG TAB 1 qODay x 2 doses FLUCONAZOLE 52989662512 No Longer Active Da Romero APRN Active ACYCLOVIR 400 MG TABS 1 pill twice daily ACYCLOVIR 40167312246 No Longer Active Da Romero APRN Active AZITHROMYCIN 250 MG TABS 2 po qd x 1 day, then 1 po qd x 4 days AZITHROMYCIN 64061946021 No Longer Active Eri Borges MD PhD Active AZITHROMYCIN 250 MG TABS take 2 po day 1 then take1 po days 2-5 AZITHROMYCIN 22907518884 No Longer Active Octaviano CARBONE Active ACYCLOVIR 400 MG TABS 1 po qd ACYCLOVIR 78082994464 No Longer Active Ang Markham MD Active PROZAC 40 MG CAPS 1 cap by mouth at bedtime FLUOXETINE HCL 82574340547 No Longer Active Ang Markham MD Active HYDROXYZINE HCL 25 MG TABS 1 tab PO tid PRN itching HYDROXYZINE HCL 25 MG TABS 082847 HYDROXYZINE HCL Inactive [facility] MELATONIN 5 MG TABS 1-2 po qHS PRN Insomnia [facility] MELATONIN 5 MG TABS 757007 MELATONIN Inactive TRINESSA (28) 0.18/0.215/0.25 MG-35 MCG TABS 1 po qd as directed TRINESSA (28) 0.18/0.215/0.25 MG-35 MCG TABS 205877 NORGESTIM-ETH ESTRAD TRIPHASIC Inactive COLACE 100 MG CAP 1 tab PO BID COLACE 100 MG CAP 3326546 DOCUSATE SODIUM Inactive ANUSOL-HC 2.5 % CREAM apply as needed ANUSOL-HC 2.5 % CREAM 382328 HYDROCORTISONE (RECTAL) Inactive ZOLOFT 50 MG TAB 1 tablet by mouth daily ZOLOFT 50 MG TAB 958200 SERTRALINE HCL Inactive CEFTIN 500 MG TAB 1 tablet by mouth twice daily for 7 days 07/24 CEFTIN 500 MG TAB 697481 CEFUROXIME AXETIL Inactive NITROFURANTOIN MACROCRYSTAL 100 MG CAPS 1 capsule PO bid x 7 days NITROFURANTOIN MACROCRYSTAL 100 MG CAPS 4355233 NITROFURANTOIN MACROCRYSTAL Inactive IBUPROFEN 800 MG TABS 1 tab every 8 hours as needed for pain 2013 IBUPROFEN 800 MG TABS 501919 IBUPROFEN Inactive COLACE 100 MG CAP 1 po BID PRN Constipation COLACE 100 MG CAP 9099931 DOCUSATE SODIUM Inactive MELOXICAM 15 MG TABS 1 po qd PRN Knee Pain MELOXICAM 15 MG TABS 832203 MELOXICAM Inactive LEVEMIR FLEXPEN 100 UNIT/ML SOLN 40 units SC at bedtime LEVEMIR FLEXPEN 100 UNIT/ML SOLN INSULIN DETEMIR Inactive ACYCLOVIR 400 MG TABS 1 po qd ACYCLOVIR 400 MG TABS 19720928 ACYCLOVIR Inactive AZITHROMYCIN 250 MG TABS take 2 po day 1 then take1 po days 2-5 AZITHROMYCIN 250 MG TABS 6750965 AZITHROMYCIN Inactive AZITHROMYCIN 250 MG TABS 2 po qd x 1 day, then 1 po qd x 4 days AZITHROMYCIN 250 MG TABS 9262735 AZITHROMYCIN Inactive ACYCLOVIR 400 MG TABS 1 pill twice daily ACYCLOVIR 400 MG TABS 19720928 ACYCLOVIR Inactive DIFLUCAN 150 MG TAB 1 qODay x 2 doses DIFLUCAN 150 MG TAB 974184 FLUCONAZOLE Inactive ACYCLOVIR 400 MG TABS ACYCLOVIR 400 MG TABS 19720928 ACYCLOVIR Inactive DIFLUCAN 150 MG TAB 1 qODay x 2 doses DIFLUCAN 150 MG TAB 469696 FLUCONAZOLE Inactive BACTRIM DS 800-160 MG TAB 1 tab by mouth twice daily BACTRIM DS 800-160 MG TAB 799479 TRIMETHOPRIM-SULFAMETHOXAZOLE Inactive Advance Directives Directive Description Start [...] 4.3-6.0 Encounters Code Encounter Date Provider Facility CPT-83427 Level 3 Est. Patient 11:59:20 ADOPTION SPECIALIST Gloria Dunbar [facility] CPT-62037 Level 3 Est. Patient 17:32:37 ADOPTION SPECIALIST Gloria Dunbar [facility] CPT-04277 Level 4 Est. Patient 16:39:07 CDT Ang Markham MD [facility] CPT-08992 Level 3 Est. Patient 16:35:50 CDT Ang Markham MD [facility] CPT-77760 Level 4 Est. Patient 13:53:06 ADOPTION SPECIALIST Ang Markham MD [facility] CPT-52145 Level 3 Est. Patient 08:58:08 ADOPTION SPECIALIST Ang Markham MD [facility] CPT-09764 Level 3 Est. Patient 18:48:29 CDT Anthony CARBONE [facility] CPT-88263 Level 3 Est. Patient 12:16:59 CDT Gabriel Hunt DO [facility] CPT-10702 Level 3 Est. Patient 18:57:15 CDT Anthony Whitfield [facility] CPT-98007 Level 3 Est. Patient 13:59:22 ADOPTION SPECIALIST Ang Markham MD [facility] CPT-98856 Level 4 Est. Patient 10:36:08 ADOPTION SPECIALIST Ang Markham MD [facility] CPT-88090 Level 3 Est. Patient 16:27:02 CDT Eri Borges MD PhD [facility] CPT-92336 Level 3 Est. Patient 10:36:43 CDT Octaviano CARBONE [facility] CPT-18845 Level 4 New Patient 08:58:06 CDT Ang Markham MD [facility] Procedures Code Procedure Name Date Entry Date Standard Description CPT-35234 Venipuncture Draw Fee 12:25:15 CDT CPT-59900 Knee 3V 16:48:40 CDT CPT-OV Office Visit 16:27:13 CDT CPT-OV Office Visit 16:21:19 CDT CPT-22498 Sono pelvis non OB uterus ovaries cervix 09:37:28 CDT
--- OUTSIDE RECORDS SUMMARY | 2018-12-22 01:27 | XMS REPORT | Clinical Summary ---
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] Abdominal pain 789.00 Resolved Ang Markahm MD Abdominal pain, unspecified site Diabetes mellitus, [...] Resolved Ang Markham MD Acute swimmers' ear intermediate use 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 V58.67 Active Celestine PEARCE Long-term (current) use of insulin Low back pain, acute 724.2 Active Shreya Velazquez AUTO APPRAISER Lumbago Pharyngitis, acute / sore throat 462 [...] MG CAP 1 po daily DOCUSATE SODIUM 25721788858 No Longer Active Jillina Frazell AUTO APPRAISER Active CARAFATE 1 GM/10ML ORAL SUSP 5 mg four times daily SUCRALFATE 66516908687 Active Jillina Frazell AUTO APPRAISER Active ZANTAC 150 MG TAB 1 po BID RANITIDINE HCL 43310492616 No Longer Active Jillina Frazell AUTO APPRAISER Active HYDROXYZINE HCL 25 MG TAB 1 TID PRN nerves HYDROXYZINE HCL 90514876136 No Longer Active Jillina Frazell AUTO APPRAISER Active CLINDAMYCIN HCL 300 MG ORAL CAPS 1 four times a day CLINDAMYCIN HCL 59000894100 No Longer Active Jillina Frazell AUTO APPRAISER Active TYLENOL WITH CODEINE #3 300-30 MG TABS 1 every four hours as needed for pain ACETAMINOPHEN-CODEINE 43459573756 Active Conner Hills MD Active LEVAQUIN 500 MG TABS 1 daily for infection LEVOFLOXACIN 93238616742 No Longer Active Conner Hills MD Active DOXEPIN HCL 10 MG CAP 1 tablet nightly for the itch DOXEPIN HCL 83539493014 No Longer Active Conner Hills MD Active TRESIBA FLEXTOUCH 200 UNIT/ML SC SOPN Take 70 units daily at mid-night to 1 am. INSULIN DEGLUDEC 40169833691 No Longer Active Conner Hills MD Active METFORMIN HCL 1000 MG TABS 1 tablet by mouth twice daily METFORMIN HCL 12259145184 No Longer Active Conner Hills MD Active LIPITOR 40 MG TAB 1 po qHS ATORVASTATIN CALCIUM 20632861593 No Longer Active Conner Hills MD Active GEMFIBROZIL 600 MG TABS 1 po BID GEMFIBROZIL 46020114805 No Longer Active Conner Hills MD Active CORTISPORIN 3.5-54120-0 SOLN 4gtts in affected ear QID x 7 days [id number] 32848344407 No Longer Active Ang Markham MD Active LEVEMIR FLEXTOUCH 100 UNIT/ML SC SOPN 35 units SC at 12-1pm, 35 units 12-1am INSULIN DETEMIR 84913258769 No Longer Active Celestine PEARCE Active REGLAN 10 MG TAB 0.5 po TID 30min prior to meals METOCLOPRAMIDE HCL 98677318131 Active Ang Markham MD Active NOVOLOG FLEXPEN 100 UNIT/ML SOPN Take 20 units TID with meals, plus 2u/50 for blood sugars above 150. Ratio vs. Carbs INSULIN ASPART 15165787657 Active Gabriel Hunt DO Active BD PEN NEEDLE DINESH U/F 32G X 4 MM MISC 5 a day INSULIN PEN NEEDLE 41247191983 Active Malstepheneh Ziglari TRAFFIC DIRECTOR Active EMBRACE BLOOD GLUCOSE TEST STRP Test blood sugars 4 times daily and PRN 08/05 GLUCOSE BLOOD 08230438536 No Longer Active Malstepheneh Rigoglari TRAFFIC DIRECTOR Active TRUEPLUS LANCETS 30G MISC 4 a day LANCETS 08957093664 Active Maliheh Ziglari TRAFFIC DIRECTOR Active TRUETEST TEST STRP check blood sugars 4x/day GLUCOSE BLOOD 91744740059 Active Maliheh Ziglari TRAFFIC DIRECTOR Active TRUERESULT BLOOD GLUCOSE W/DEVICE KIT check blood sugars 4x a day BLOOD GLUCOSE MONITORING SUPPL 27060620116 Active Malstepheneh Ziglari TRAFFIC DIRECTOR Active LISINOPRIL 5 MG TABS 1 po qd LISINOPRIL 78569348721 Active Ang Markham MD Active PAXIL 20 MG TAB 1 tablet by mouth daily PAROXETINE HCL 61024996341 Active Ang Markham MD Active GENTAMICIN SULFATE 0.1 % EXT OINT Apply to open sores once a day. GENTAMICIN SULFATE 12970869848 No Longer Active Ang Markham MD Active ZOLPIDEM TARTRATE 10 MG TABS 1 po qHS PRN Insomnia ZOLPIDEM TARTRATE 89491974264 Active Ang Markham MD Active BACTRIM DS 800-160 MG TAB 1 tab by mouth twice daily TRIMETHOPRIM-SULFAMETHOXAZOLE 12880335497 No Longer Active Gloria Yokum AUTO APPRAISER Active LEVEMIR FLEXPEN 100 UNIT/ML SOLN 40 units SC at bedtime INSULIN DETEMIR No Longer Active Susan Adan RMA Active INSUPEN ULTRAFIN 31G X 6 MM MISC Use with insulin qid. DX: E11.9 INSULIN PEN NEEDLE 15530831181 Active Ang Markham MD Active ZOLOFT 100 MG TAB 1 po qHS SERTRALINE HCL 41368082987 No Longer Active Ang Markham MD Active MELOXICAM 15 MG TABS 1 po qd PRN Knee Pain MELOXICAM 29187209088 No Longer Active Ang Markham MD Active CYCLOBENZAPRINE HCL 5 MG TABS 1 po qHS PRN Muscle pain CYCLOBENZAPRINE HCL 48810803725 Active Ang Markham MD Active COLACE 100 MG CAP 1 po BID PRN Constipation DOCUSATE SODIUM 63695761764 No Longer Active Ang Markham MD Active IBUPROFEN 800 MG TABS 1 tab every 8 hours as needed for pain 2013 IBUPROFEN 79590784918 No Longer Active Ang Markham MD Active NITROFURANTOIN MACROCRYSTAL 100 MG CAPS 1 capsule PO bid x 7 days NITROFURANTOIN MACROCRYSTAL 18826195470 No Longer Active Ang Markham MD Active DIFLUCAN 150 MG TAB 1 qODay x 2 doses FLUCONAZOLE 00380623236 No Longer Active Da Romero APRN Active CEFTIN 500 MG TAB 1 tablet by mouth twice daily for 7 days 07/24 CEFUROXIME AXETIL 54493045190 No Longer Active Anthony CARBONE Active ZOLOFT 50 MG TAB 1 tablet by mouth daily SERTRALINE HCL 92857982831 No Longer Active Anthony CARBONE Active ANUSOL-HC 2.5 % CREAM apply as needed HYDROCORTISONE (RECTAL) 90673046378 No Longer Active Anthony CARBONE Active COLACE 100 MG CAP 1 tab PO BID DOCUSATE SODIUM 55412781802 No Longer Active Anthony CARBONE Active TRINESSA (28) 0.18/0.215/0.25 MG-35 MCG TABS 1 po qd as directed NORGESTIM-ETH ESTRAD TRIPHASIC 02187483240 No Longer Active Anthony CARBONE Active [facility] MELATONIN 5 MG TABS 1-2 po qHS PRN Insomnia MELATONIN 99670137719 No Longer Active Anthony CARBONE Active ACYCLOVIR 400 MG TABS ACYCLOVIR 24741664357 No Longer Active Ang Markham MD Active HYDROXYZINE HCL 25 MG TABS 1 tab PO tid PRN itching HYDROXYZINE HCL 58228008947 No Longer Active Ang Markham MD Active DIFLUCAN 150 MG TAB 1 qODay x 2 doses FLUCONAZOLE 99360070755 No Longer Active Da Romero APRN Active ACYCLOVIR 400 MG TABS 1 pill twice daily ACYCLOVIR 42690055115 No Longer Active Josephllpiedad Romero APRN Active AZITHROMYCIN 250 MG TABS 2 po qd x 1 day, then 1 po qd x 4 days AZITHROMYCIN 72349405224 No Longer Active Eri Borges MD PhD Active AZITHROMYCIN 250 MG TABS take 2 po day 1 then take1 po days 2-5 AZITHROMYCIN 95652342847 No Longer Active Octaviano CARBONE Active ACYCLOVIR 400 MG TABS 1 po qd ACYCLOVIR 28323614526 No Longer Active Ang Markham MD Active PROZAC 40 MG CAPS 1 cap by mouth at bedtime FLUOXETINE HCL 64600105382 No Longer Active Ang Markham MD Active HYDROXYZINE HCL 25 MG TABS 1 tab PO tid PRN itching HYDROXYZINE HCL 25 MG TABS 441581 HYDROXYZINE HCL Inactive [facility] MELATONIN 5 MG TABS 1-2 po qHS PRN Insomnia [facility] MELATONIN 5 MG TABS 960652 MELATONIN Inactive TRINESSA (28) 0.18/0.215/0.25 MG-35 MCG TABS 1 po qd as directed TRINESSA (28) 0.18/0.215/0.25 MG-35 MCG TABS 865191 NORGESTIM-ETH ESTRAD TRIPHASIC Inactive COLACE 100 MG CAP 1 tab PO BID COLACE 100 MG CAP 4044905 DOCUSATE SODIUM Inactive ANUSOL-HC 2.5 % CREAM apply as needed ANUSOL-HC 2.5 % CREAM 323455 HYDROCORTISONE (RECTAL) Inactive ZOLOFT 50 MG TAB 1 tablet by mouth daily ZOLOFT 50 MG TAB 298416 SERTRALINE HCL Inactive CEFTIN 500 MG TAB 1 tablet by mouth twice daily for 7 days 07/24 CEFTIN 500 MG TAB 283702 CEFUROXIME AXETIL Inactive NITROFURANTOIN MACROCRYSTAL 100 MG CAPS 1 capsule PO bid x 7 days NITROFURANTOIN MACROCRYSTAL 100 MG CAPS 6928984 NITROFURANTOIN MACROCRYSTAL Inactive IBUPROFEN 800 MG TABS 1 tab every 8 hours as needed for pain 2013 IBUPROFEN 800 MG TABS 253148 IBUPROFEN Inactive COLACE 100 MG CAP 1 po BID PRN Constipation COLACE 100 MG CAP 2284610 DOCUSATE SODIUM Inactive MELOXICAM 15 MG TABS 1 po qd PRN Knee Pain MELOXICAM 15 MG TABS 805683 MELOXICAM Inactive LEVEMIR FLEXPEN 100 UNIT/ML SOLN 40 units SC at bedtime LEVEMIR FLEXPEN 100 UNIT/ML SOLN INSULIN DETEMIR Inactive GENTAMICIN SULFATE 0.1 % EXT OINT Apply to open sores once a day. GENTAMICIN SULFATE 0.1 % EXT OINT 391145 GENTAMICIN SULFATE Inactive EMBRACE BLOOD GLUCOSE TEST STRP Test blood sugars 4 times daily and PRN 08/05 EMBRACE BLOOD GLUCOSE TEST STRP GLUCOSE BLOOD Inactive LEVEMIR FLEXTOUCH 100 UNIT/ML SC SOPN 35 units SC at 12-1pm, 35 units 12-1am LEVEMIR FLEXTOUCH 100 UNIT/ML SC SOPN INSULIN DETEMIR Inactive CORTISPORIN 3.5-74669-9 SOLN 4gtts in affected ear QID x 7 days CORTISPORIN 3.5-87732-2 SOLN 813628 [id number] Inactive GEMFIBROZIL 600 MG TABS 1 po BID GEMFIBROZIL 600 MG TABS 531034 GEMFIBROZIL Inactive LIPITOR 40 MG TAB 1 po qHS LIPITOR 40 MG TAB 514425 ATORVASTATIN CALCIUM Inactive METFORMIN HCL 1000 MG TABS 1 tablet by mouth twice daily METFORMIN HCL 1000 MG TABS 167367 METFORMIN HCL Inactive TRESIBA FLEXTOUCH 200 UNIT/ML SC SOPN Take 70 units daily at mid-night to 1 am. TRESIBA FLEXTOUCH 200 UNIT/ML SC SOPN INSULIN DEGLUDEC Inactive DOXEPIN HCL 10 MG CAP 1 tablet nightly for the itch DOXEPIN HCL 10 MG CAP 6994100 DOXEPIN HCL Inactive LEVAQUIN 500 MG TABS 1 daily for infection LEVAQUIN 500 MG TABS 464410 LEVOFLOXACIN Inactive CLINDAMYCIN HCL 300 MG ORAL CAPS 1 four times a day CLINDAMYCIN HCL 300 MG ORAL CAPS 633773 CLINDAMYCIN HCL Inactive HYDROXYZINE HCL 25 MG TAB 1 TID PRN nerves HYDROXYZINE HCL 25 MG TAB 780313 HYDROXYZINE HCL Inactive ZANTAC 150 MG TAB 1 po BID ZANTAC 150 MG TAB 166179 RANITIDINE HCL Inactive COLACE 100 MG CAP 1 po daily COLACE 100 MG CAP 9586392 DOCUSATE SODIUM Inactive ACYCLOVIR 400 MG TABS 1 po qd ACYCLOVIR 400 MG TABS 19720928 ACYCLOVIR Inactive AZITHROMYCIN 250 MG TABS take 2 po day 1 then take1 po days 2-5 AZITHROMYCIN 250 MG TABS 586136 AZITHROMYCIN Inactive AZITHROMYCIN 250 MG TABS 2 po qd x 1 day, then 1 po qd x 4 days AZITHROMYCIN 250 MG TABS 379515 AZITHROMYCIN Inactive ACYCLOVIR 400 MG TABS 1 pill twice daily ACYCLOVIR 400 MG TABS 19720928 ACYCLOVIR Inactive DIFLUCAN 150 MG TAB 1 qODay x 2 doses DIFLUCAN 150 MG TAB 19760606 FLUCONAZOLE Inactive ACYCLOVIR 400 MG TABS ACYCLOVIR 400 MG TABS 19720928 ACYCLOVIR Inactive DIFLUCAN 150 MG TAB 1 qODay x 2 doses DIFLUCAN 150 MG TAB 539232 FLUCONAZOLE Inactive BACTRIM DS 800-160 MG TAB 1 tab by mouth twice daily BACTRIM DS 800-160 MG TAB 225373 TRIMETHOPRIM-SULFAMETHOXAZOLE Inactive Advance Directives Directive Description Start [...] Panel - Chemistry sodium, serum 130 mmol/L 502-733 0260/10/12 carbon dioxide, venous blood 28.1 mmol/L 21.0-32.0 potassium, serum 3.9 mmol/L 3.5-5.2 chloride, serum 91 mmol/L 98-107 blood glucose 547 mg/dL 65-110 urea nitrogen, blood 3 mg/dL 7-18 creatinine, serum 0.78 mg/dL 0.55-1.30 alanine aminotransferase (SGPT), serum 11 U/L 12-78 aspartate aminotransferase (SGOT), serum 7 U/L 15-37 calcium, serum 8.8 mg/dL 8.5-10.1 bilirubin, serum, total 0.30 mg/dL 0.00-1.00 cholesterol, serum 221 mg/dL 771-009 9849/10/12 triglyceride, serum, fasting 590 mg/dL 30-200 HDL cholesterol, serum 45 mg/dL 32-96 LDL cholesterol, serum 58 mg/dL 0-130 Encounters Code Encounter Date Provider Facility CPT-35115 Level 3 Est. Patient 14:52:33 CDT Da Romero [facility] CPT-17364 Level 3 Est. Patient 10:22:30 CDT Conner Hills MD [facility] CPT-51812 Level 3 Est. Patient 15:02:19 CDT Shreya Velazquez [facility] CPT-85329 Level 3 Est. Patient 13:22:25 CDT Gabriel Hunt [facility] CPT-06202 Level 4 Est. Patient 16:02:22 CDT Ang Markham MD [facility] CPT-30706 Level 3 Est. Patient 16:21:23 CDT Celestine Huerta [facility] CPT-80042 Level 3 Est. Patient 17:02:56 CDT Gabriel Hunt [facility] CPT-88380 Level 3 Est. Patient 14:46:22 CDT Da Romero [facility] CPT-32247 Level 4 Est. Patient 13:55:20 CDT Ang Markham MD [facility] CPT-63015 Level 4 Est. Patient 16:10:09 CDT Celestine Huerta [facility] CPT-45487 Level 3 Est. Patient 13:51:24 CDT Ang Markham MD [facility] CPT-14471 Level 3 Est. Patient 18:42:15 CDT Gabriel Hunt [facility] CPT-43627 Level 5 Est. Patient 14:40:14 CDT Celestine Huerta RAMS[facility] CPT-81022 Level 4 Est. Patient 14:36:17 CDT Ang Markham MD [facility] CPT-36924 Level 3 Est. Patient 11:13:47 [employer] Ang Markham MD [facility] CPT-19909 Level 3 Est. Patient 11:59:20 [employer] HISTORY TE[employer] Gloria Dunbar [facility] CPT-66033 Level 3 Est. 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 Patient 16:39:07 CDT Ang Markham MD [facility] CPT-66760 Level 3 Est. Patient 16:35:50 CDT Ang Markham MD [facility] CPT-45535 Level 4 Est. Patient 13:53:06 AMER[employer] HISTORY TE[employer] Ang Markham MD [facility] CPT-98712 Level 3 Est. Patient 08:58:08 AMERICAN HISTORY TEACHER Ang Markham MD [facility] CPT-99181 Level 3 Est. Patient 18:48:[address] [facility] CPT-13442 Level 3 Est. Patient 12:16:59 CDT Gabriel Hunt DO [facility] CPT-94848 Level 3 Est. Patient 18:57:[address] [facility] CPT-87791 Level 3 Est. Patient 13:59:22 AMERICAN HISTORY TEACHER Ang Markham MD [facility] CPT-59809 Level 4 Est. Patient 10:36:08 AMERICAN HISTORY TEACHER Ang Markham MD [facility] CPT-14575 Level 3 Est. Patient 16:27:02 CDT Eri Borges MD PhD [facility] CPT-74490 Level 3 Est. Patient 10:36:43 CDT Octaviano CARBONE [facility] CPT-12657 Level 4 New Patient 08:58:06 CDT Ang Markham MD [facility] Procedures Code Procedure Name Date Entry Date Standard Description CPT-31913 LS spine comp w obliques - XRAY USE ONLY 15:34:48 CDT CPT-88955 Lipid - LAB USE ONLY 15:28:39 CDT CPT-18072 CMP - LAB USE ONLY 15:28:39 CDT CPT-70961 Venipuncture Draw Fee 15:28:39 CDT CPT-77935 Abd compl w upright - XRAY USE ONLY 14:09:39 CDT 02/28 CPT-51431 Venipuncture Draw Fee 12:25:15 CDT CPT-30310 Knee 3V 16:48:40 CDT CPT-OV Office Visit 16:27:13 CDT CPT-OV Office Visit 16:21:19 CDT CPT-29025 Sono pelvis non OB uterus ovaries cervix 09:37:28 CDT
--- OUTSIDE RECORDS SUMMARY | 2018-12-22 01:28 | XMS REPORT | Clinical Summary ---
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 Ratio vs. Carbs INSULIN ASPART 49212767997 Active Gabriel Hunt DO Active BD PEN NEEDLE DINESH U/F 32G X 4 MM MISC 5 a day INSULIN PEN NEEDLE 13156956067 Active Maliheh Ziglari PHARMACIST INTERN Active LEVEMIR FLEXTOUCH 100 UNIT/ML SC SOPN 30 units SC at 12-1pm, 30 units 12-1am INSULIN DETEMIR 08785734571 Active Maliheh Ziglari PHARMACIST INTERN Active EMBRACE BLOOD GLUCOSE TEST STRP Test blood sugars 4 times daily and PRN 08/05 GLUCOSE BLOOD 47844798952 No Longer Active Maliheh Ziglari PHARMACIST INTERN Active TRUEPLUS LANCETS 30G MISC 4 a day LANCETS 92660900499 Active Maliheh Ziglari PHARMACIST INTERN Active TRUETEST TEST STRP check blood sugars 4x/day GLUCOSE BLOOD 47193817304 Active Maliheh Ziglari PHARMACIST INTERN Active TRUERESULT BLOOD GLUCOSE W/DEVICE KIT check blood sugars 4x a day BLOOD GLUCOSE MONITORING SUPPL 55008185999 Active Maliheh Ziglari PHARMACIST INTERN Active LISINOPRIL 5 MG TABS 1 po qd LISINOPRIL 14394919368 Active Ang Markham MD Active PAXIL 20 MG TAB 1 tablet by mouth daily PAROXETINE HCL 51981149759 Active Ang Markham MD Active GENTAMICIN SULFATE 0.1 % EXT OINT Apply to open sores once a day. GENTAMICIN SULFATE 05392688141 No Longer Active Ang Markham MD Active ZOLPIDEM TARTRATE 10 MG TABS 1 po qHS PRN Insomnia ZOLPIDEM TARTRATE 13909892208 Active Ang Markham MD Active BACTRIM DS 800-160 MG TAB 1 tab by mouth twice daily TRIMETHOPRIM-SULFAMETHOXAZOLE 40835484720 No Longer Active Gloria Dunbar MANUFACTURING SPECIALIST Active LEVEMIR FLEXPEN 100 UNIT/ML SOLN 40 units SC at bedtime INSULIN DETEMIR No Longer Active Susan Braggart RMA Active INSUPEN ULTRAFIN 31G X 6 MM MISC Use with insulin qid. DX: E11.9 INSULIN PEN NEEDLE 68676629188 Active Ang Markham MD Active ZOLOFT 100 MG TAB 1 po qHS SERTRALINE HCL 07260974981 No Longer Active Ang Markham MD Active MELOXICAM 15 MG TABS 1 po qd PRN Knee Pain MELOXICAM 37553096956 No Longer Active Ang Markham MD Active LIPITOR 40 MG TAB 1 po qHS ATORVASTATIN CALCIUM 63794641541 Active Ang Markham MD Active METFORMIN HCL 1000 MG TABS 1 tablet by mouth twice daily METFORMIN HCL 26770931819 Active Ang Markham MD Active CYCLOBENZAPRINE HCL 5 MG TABS 1 po qHS PRN Muscle pain CYCLOBENZAPRINE HCL 78406541998 Active Ang Markham MD Active COLACE 100 MG CAP 1 po BID PRN Constipation DOCUSATE SODIUM 48259791728 No Longer Active Ang Markham MD Active HYDROXYZINE HCL 25 MG TAB 1 TID PRN nerves HYDROXYZINE HCL 26920486829 Active Ang Markham MD Active IBUPROFEN 800 MG TABS 1 tab every 8 hours as needed for pain 2013 IBUPROFEN 78733282624 No Longer Active Ang Markham MD Active NITROFURANTOIN MACROCRYSTAL 100 MG CAPS 1 capsule PO bid x 7 days NITROFURANTOIN MACROCRYSTAL 47450948502 No Longer Active Ang Markham MD Active DIFLUCAN 150 MG TAB 1 qODay x 2 doses FLUCONAZOLE 35556424092 No Longer Active Da Romero APRN Active CEFTIN 500 MG TAB 1 tablet by mouth twice daily for 7 days 07/24 CEFUROXIME AXETIL 17204373238 No Longer Active Anthony CARBONE Active ZOLOFT 50 MG TAB 1 tablet by mouth daily SERTRALINE HCL 98262659911 No Longer Active Anthony CARBONE Active ANUSOL-HC 2.5 % CREAM apply as needed HYDROCORTISONE (RECTAL) 24861281614 No Longer Active Anthony CARBONE Active COLACE 100 MG CAP 1 tab PO BID DOCUSATE SODIUM 32382970610 No Longer Active Anthony CARBONE Active TRINESSA (28) 0.18/0.215/0.25 MG-35 MCG TABS 1 po qd as directed NORGESTIM-ETH ESTRAD TRIPHASIC 64778395844 No Longer Active Anthony CARBONE Active [facility] MELATONIN 5 MG TABS 1-2 po qHS PRN Insomnia MELATONIN 17811138728 No Longer Active Anthony CARBONE Active ACYCLOVIR 400 MG TABS ACYCLOVIR 49158743529 No Longer Active Ang Markham MD Active HYDROXYZINE HCL 25 MG TABS 1 tab PO tid PRN itching HYDROXYZINE HCL 41393357723 No Longer Active Ang Markham MD Active DIFLUCAN 150 MG TAB 1 qODay x 2 doses FLUCONAZOLE 05720019626 No Longer Active Da Romero APRN Active ACYCLOVIR 400 MG TABS 1 pill twice daily ACYCLOVIR 21432824042 No Longer Active Da Romero APRN Active AZITHROMYCIN 250 MG TABS 2 po qd x 1 day, then 1 po qd x 4 days AZITHROMYCIN 93593844112 No Longer Active Eri C Madril MD PhD Active AZITHROMYCIN 250 MG TABS take 2 po day 1 then take1 po days 2-5 AZITHROMYCIN 39719488809 No Longer Active Octaviano CARBONE Active ACYCLOVIR 400 MG TABS 1 po qd ACYCLOVIR 78389046805 No Longer Active Ang Markham MD Active PROZAC 40 MG CAPS 1 cap by mouth at bedtime FLUOXETINE HCL 44343945873 No Longer Active Ang Markham MD Active HYDROXYZINE HCL 25 MG TABS 1 tab PO tid PRN itching HYDROXYZINE HCL 25 MG TABS 649533 HYDROXYZINE HCL Inactive [facility] MELATONIN 5 MG TABS 1-2 po qHS PRN Insomnia [facility] MELATONIN 5 MG TABS 003661 MELATONIN Inactive TRINESSA (28) 0.18/0.215/0.25 MG-35 MCG TABS 1 po qd as directed TRINESSA (28) 0.18/0.215/0.25 MG-35 MCG TABS 435246 NORGESTIM-ETH ESTRAD TRIPHASIC Inactive COLACE 100 MG CAP 1 tab PO BID COLACE 100 MG CAP 2171738 DOCUSATE SODIUM Inactive ANUSOL-HC 2.5 % CREAM apply as needed ANUSOL-HC 2.5 % CREAM 367862 HYDROCORTISONE (RECTAL) Inactive ZOLOFT 50 MG TAB 1 tablet by mouth daily ZOLOFT 50 MG TAB 452192 SERTRALINE HCL Inactive CEFTIN 500 MG TAB 1 tablet by mouth twice daily for 7 days 07/24 CEFTIN 500 MG TAB 241132 CEFUROXIME AXETIL Inactive NITROFURANTOIN MACROCRYSTAL 100 MG CAPS 1 capsule PO bid x 7 days NITROFURANTOIN MACROCRYSTAL 100 MG CAPS 6911109 NITROFURANTOIN MACROCRYSTAL Inactive IBUPROFEN 800 MG TABS 1 tab every 8 hours as needed for pain 2013 IBUPROFEN 800 MG TABS 070088 IBUPROFEN Inactive COLACE 100 MG CAP 1 po BID PRN Constipation COLACE 100 MG CAP 9327448 DOCUSATE SODIUM Inactive MELOXICAM 15 MG TABS 1 po qd PRN Knee Pain MELOXICAM 15 MG TABS 665927 MELOXICAM Inactive LEVEMIR FLEXPEN 100 UNIT/ML SOLN 40 units SC at bedtime LEVEMIR FLEXPEN 100 UNIT/ML SOLN INSULIN DETEMIR Inactive GENTAMICIN SULFATE 0.1 % EXT OINT Apply to open sores once a day. GENTAMICIN SULFATE 0.1 % EXT OINT 609335 GENTAMICIN SULFATE Inactive EMBRACE BLOOD GLUCOSE TEST STRP Test blood sugars 4 times daily and PRN 08/05 EMBRACE BLOOD GLUCOSE TEST STRP GLUCOSE BLOOD Inactive ACYCLOVIR 400 MG TABS 1 po qd ACYCLOVIR 400 MG TABS 554771 ACYCLOVIR Inactive AZITHROMYCIN 250 MG TABS take 2 po day 1 then take1 po days 2-5 AZITHROMYCIN 250 MG TABS 2162384 AZITHROMYCIN Inactive AZITHROMYCIN 250 MG TABS 2 po qd x 1 day, then 1 po qd x 4 days AZITHROMYCIN 250 MG TABS 4982360 AZITHROMYCIN Inactive ACYCLOVIR 400 MG TABS 1 pill twice daily ACYCLOVIR 400 MG TABS 292906 ACYCLOVIR Inactive DIFLUCAN 150 MG TAB 1 qODay x 2 doses DIFLUCAN 150 MG TAB 258598 FLUCONAZOLE Inactive ACYCLOVIR 400 MG TABS ACYCLOVIR 400 MG TABS 034362 ACYCLOVIR Inactive DIFLUCAN 150 MG TAB 1 qODay x 2 doses DIFLUCAN 150 MG TAB 629036 FLUCONAZOLE Inactive BACTRIM DS 800-160 MG TAB 1 tab by mouth twice daily BACTRIM DS 800-160 MG TAB 691645 TRIMETHOPRIM-SULFAMETHOXAZOLE Inactive Advance Directives Directive Description Start [...] HGBA1C - Chemistry sodium, serum 134 mmol/L 551-470 6395/03/16 carbon dioxide, venous blood 34.5 mmol/L 21.0-32.0 potassium, serum 4.6 mmol/L 3.5-5.2 chloride, serum 93 mmol/L 98-107 blood glucose 408 mg/dL 65-110 urea nitrogen, blood 3 mg/dL 7-18 creatinine, serum 0.58 mg/dL 0.55-1.30 alanine aminotransferase (SGPT), serum 11 U/L 12-78 aspartate aminotransferase (SGOT), serum 8 U/L 15-37 calcium, serum 9.2 mg/dL 8.5-10.1 bilirubin, serum, total 0.30 mg/dL 0.00-1.00 cholesterol, serum 195 mg/dL 956-770 0260/03/16 triglyceride, serum, fasting 138 mg/dL 30-200 HDL [...] Panel - Chemistry sodium, serum 133 mmol/L 164-853 4403/06/03 carbon dioxide, venous blood 33.4 mmol/L 21.0-32.0 [...] pH, urine, semiquantitative 5.5 5.0-8.5 Lab Report: [facility] [place] - Chemistry human chorionic gonadotropin, urine, qualitative [...] Yes Encounters Code Encounter Date Provider Facility CPT-51623 Level 4 Est. Patient 16:10:09 CDT Celestine Huerta [facility] CPT-75727 Level 3 Est. Patient 13:51:24 CDT Ang Markham MD [facility] CPT-80104 Level 3 Est. Patient 18:42:15 CDT Gabriel Hunt [facility] CPT-82032 Level 5 Est. Patient 14:40:14 CDT Celestine Huerta [facility] CPT-11379 Level 4 Est. Patient 14:36:17 CDT Ang Markham MD [facility] CPT-01265 Level 3 Est. 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 Patient 11:59:20 MACHINE INSTALLER Gloria Dunbar [facility] CPT-14853 Level 3 Est. Patient 17:32:37 MACHINE INSTALLER Gloria Dunbar [facility] CPT-87840 Level 4 Est. Patient 16:39:07 CDT Ang Markham MD [facility] CPT-44439 Level 3 Est. Patient 16:35:50 CDT Ang Markham MD [facility] CPT-15748 Level 4 Est. Patient 13:53:06 MACHINE INSTALLER Ang Markham MD [facility] CPT-93294 Level 3 Est. Patient 08:58:08 MACHINE INSTALLER Ang Markham MD [facility] CPT-53873 Level 3 Est. Patient 18:48:29 CDT Anthony Whitfield [facility] CPT-92854 Level 3 Est. Patient 12:16:59 CDT Gabriel Hunt DO [facility] CPT-58285 Level 3 Est. Patient 18:57:15 CDT Anthony Whitfield [facility] CPT-57559 Level 3 Est. Patient 13:59:22 MACHINE INSTALLER Ang Markham MD [facility] CPT-63583 Level 4 Est. Patient 10:36:08 MACHINE INSTALLER Ang Markham MD [facility] CPT-36087 Level 3 Est. Patient 16:27:02 CDT Eri Borges MD PhD [facility] CPT-70492 Level 3 Est. Patient 10:36:43 CDT Kellyfaviola Roselyn [facility] CPT-10456 Level 4 New Patient 08:58:06 CDT Ang Markham MD [facility] Procedures Code Procedure Name Date Entry Date Standard Description CPT-06519 Abd compl w upright - XRAY USE ONLY 14:09:39 CDT 02/28 CPT-29308 Venipuncture Draw Fee 12:25:15 CDT CPT-57514 Knee 3V 16:48:40 CDT CPT-OV Office Visit 16:27:13 CDT CPT-OV Office Visit 16:21:19 CDT CPT-79617 Sono pelvis non OB uterus ovaries cervix 09:37:28 CDT
--- OUTSIDE RECORDS SUMMARY | 2018-12-22 01:29 | XMS REPORT | Clinical Summary ---
Author Author Admin, QIE Organization [employer] Address Unknown Phone Unavailable Allergies, Adverse Reactions, [...] 5 MG TABS 1 po qd LISINOPRIL 13703269292 Active Ang Markham MD Active NOVOLOG FLEXPEN 100 UNIT/ML SOPN Take 20 units TID with meals INSULIN ASPART 30365140916 Active Ang Markham MD Active LEVEMIR FLEXTOUCH 100 UNIT/ML SC SOPN 60 units SC nightly INSULIN DETEMIR 84986302088 Active Codey Hdez MD Active COLACE 100 MG CAP 1 po BID PRN Constipation DOCUSATE SODIUM 62053654725 Active Ang Markham MD Active PAXIL 20 MG TAB 1 tablet by mouth daily PAROXETINE HCL 96178531357 Active Ang Markham MD Active GENTAMICIN SULFATE 0.1 % EXT OINT Apply to open sores once a day. GENTAMICIN SULFATE 41040022524 No Longer Active Ang Markham MD Active ZOLPIDEM TARTRATE 10 MG TABS 1 po qHS PRN Insomnia ZOLPIDEM TARTRATE 84953546500 Active Ang Markham MD Active BACTRIM DS 800-160 MG TAB 1 tab by mouth twice daily TRIMETHOPRIM-SULFAMETHOXAZOLE 30693313953 No Longer Active Gloriajuliette Dunbar REPLENISHMENT ANALYST Active LEVEMIR FLEXPEN 100 UNIT/ML SOLN 40 units SC at bedtime INSULIN DETEMIR No Longer Active Susankalen Arellano RMA Active INSUPEN ULTRAFIN 31G X 6 MM MISC Use with insulin qid. DX: E11.9 INSULIN PEN NEEDLE 91250014979 Active Ang Markham MD Active ZOLOFT 100 MG TAB 1 po qHS SERTRALINE HCL 82144451514 No Longer Active Ang Markham MD Active MELOXICAM 15 MG TABS 1 po qd PRN Knee Pain MELOXICAM 44472174874 No Longer Active Ang Markham MD Active LIPITOR 40 MG TAB 1 po qHS ATORVASTATIN CALCIUM 90133051552 Active Ang Markham MD Active METFORMIN HCL 1000 MG TABS 1 tablet by mouth twice daily METFORMIN HCL 75865264323 Active Ang Markham MD Active CYCLOBENZAPRINE HCL 5 MG TABS 1 po qHS PRN Muscle pain CYCLOBENZAPRINE HCL 89467278523 Active Ang Markham MD Active COLACE 100 MG CAP 1 po BID PRN Constipation DOCUSATE SODIUM 09279270507 No Longer Active Ang Markham MD Active HYDROXYZINE HCL 25 MG TAB 1 TID PRN nerves HYDROXYZINE HCL 74312696566 Active Ang Markham MD Active IBUPROFEN 800 MG TABS 1 tab every 8 hours as needed for pain 2013 IBUPROFEN 86015965208 No Longer Active Ang Markham MD Active NITROFURANTOIN MACROCRYSTAL 100 MG CAPS 1 capsule PO bid x 7 days NITROFURANTOIN MACROCRYSTAL 55827016586 No Longer Active Ang Markham MD Active DIFLUCAN 150 MG TAB 1 qODay x 2 doses FLUCONAZOLE 63435502980 No Longer Active Da Romero APRN Active CEFTIN 500 MG TAB 1 tablet by mouth twice daily for 7 days 07/24 CEFUROXIME AXETIL 32107825826 No Longer Active Anthony CARBONE Active ZOLOFT 50 MG TAB 1 tablet by mouth daily SERTRALINE HCL 86046737189 No Longer Active Anthony CARBONE Active ANUSOL-HC 2.5 % CREAM apply as needed HYDROCORTISONE (RECTAL) 06986385264 No Longer Active Anthony CARBONE Active COLACE 100 MG CAP 1 tab PO BID DOCUSATE SODIUM 11641921771 No Longer Active Anthony CARBONE Active TRINESSA (28) 0.18/0.215/0.25 MG-35 MCG TABS 1 po qd as directed NORGESTIM-ETH ESTRAD TRIPHASIC 46898376857 No Longer Active Anthony CARBONE Active [facility] MELATONIN 5 MG TABS 1-2 po qHS PRN Insomnia MELATONIN 93597410435 No Longer Active Anthony CARBONE Active ACYCLOVIR 400 MG TABS ACYCLOVIR 76322985245 No Longer Active Ang Markham MD Active EMBRACE BLOOD GLUCOSE TEST STRP Test blood sugars 4 times daily and PRN 08/05 GLUCOSE BLOOD 79494512530 Active Ang Markham MD Active HYDROXYZINE HCL 25 MG TABS 1 tab PO tid PRN itching HYDROXYZINE HCL 60787436389 No Longer Active Ang Markham MD Active DIFLUCAN 150 MG TAB 1 qODay x 2 doses FLUCONAZOLE 49601795013 No Longer Active Jillina Frazell REPLENISHMENT ANALYST Active ACYCLOVIR 400 MG TABS 1 pill twice daily ACYCLOVIR 68750363196 No Longer Active Da Romero APRN Active AZITHROMYCIN 250 MG TABS 2 po qd x 1 day, then 1 po qd x 4 days AZITHROMYCIN 50007153859 No Longer Active Eri Borges MD PhD Active AZITHROMYCIN 250 MG TABS take 2 po day 1 then take1 po days 2-5 AZITHROMYCIN 33751047387 No Longer Active Octaviano Dempsey PA Active ACYCLOVIR 400 MG TABS 1 po qd ACYCLOVIR 31319619799 No Longer Active Ang Markham MD Active PROZAC 40 MG CAPS 1 cap by mouth at bedtime FLUOXETINE HCL 46836721487 No Longer Active Ang Markham MD Active HYDROXYZINE HCL 25 MG TABS 1 tab PO tid PRN itching HYDROXYZINE HCL 25 MG TABS 884053 HYDROXYZINE HCL Inactive [facility] MELATONIN 5 MG TABS 1-2 po qHS PRN Insomnia [facility] MELATONIN 5 MG TABS 904715 MELATONIN Inactive TRINESSA (28) 0.18/0.215/0.25 MG-35 MCG TABS 1 po qd as directed TRINESSA (28) 0.18/0.215/0.25 MG-35 MCG TABS 513979 NORGESTIM-ETH ESTRAD TRIPHASIC Inactive COLACE 100 MG CAP 1 tab PO BID COLACE 100 MG CAP 7862118 DOCUSATE SODIUM Inactive ANUSOL-HC 2.5 % CREAM apply as needed ANUSOL-HC 2.5 % CREAM 026048 HYDROCORTISONE (RECTAL) Inactive ZOLOFT 50 MG TAB 1 tablet by mouth daily ZOLOFT 50 MG TAB 006197 SERTRALINE HCL Inactive CEFTIN 500 MG TAB 1 tablet by mouth twice daily for 7 days 07/24 CEFTIN 500 MG TAB 974596 CEFUROXIME AXETIL Inactive NITROFURANTOIN MACROCRYSTAL 100 MG CAPS 1 capsule PO bid x 7 days NITROFURANTOIN MACROCRYSTAL 100 MG CAPS 0129548 NITROFURANTOIN MACROCRYSTAL Inactive IBUPROFEN 800 MG TABS 1 tab every 8 hours as needed for pain 2013 IBUPROFEN 800 MG TABS 237525 IBUPROFEN Inactive COLACE 100 MG CAP 1 po BID PRN Constipation COLACE 100 MG CAP 2214488 DOCUSATE SODIUM Inactive MELOXICAM 15 MG TABS 1 po qd PRN Knee Pain MELOXICAM 15 MG TABS 676508 MELOXICAM Inactive LEVEMIR FLEXPEN 100 UNIT/ML SOLN 40 units SC at bedtime LEVEMIR FLEXPEN 100 UNIT/ML SOLN INSULIN DETEMIR Inactive GENTAMICIN SULFATE 0.1 % EXT OINT Apply to open sores once a day. GENTAMICIN SULFATE 0.1 % EXT OINT 370025 GENTAMICIN SULFATE Inactive ACYCLOVIR 400 MG TABS 1 po qd ACYCLOVIR 400 MG TABS 19720928 ACYCLOVIR Inactive AZITHROMYCIN 250 MG TABS take 2 po day 1 then take1 po days 2-5 AZITHROMYCIN 250 MG TABS 6363869 AZITHROMYCIN Inactive AZITHROMYCIN 250 MG TABS 2 po qd x 1 day, then 1 po qd x 4 days AZITHROMYCIN 250 MG TABS 9758308 AZITHROMYCIN Inactive ACYCLOVIR 400 MG TABS 1 pill twice daily ACYCLOVIR 400 MG TABS 19720928 ACYCLOVIR Inactive DIFLUCAN 150 MG TAB 1 qODay x 2 doses DIFLUCAN 150 MG TAB 289435 FLUCONAZOLE Inactive ACYCLOVIR 400 MG TABS ACYCLOVIR 400 MG TABS 773621 ACYCLOVIR Inactive DIFLUCAN 150 MG TAB 1 qODay x 2 doses DIFLUCAN 150 MG TAB 19760606 FLUCONAZOLE Inactive BACTRIM DS 800-160 MG TAB 1 tab by mouth twice daily BACTRIM DS 800-160 MG TAB 160209 TRIMETHOPRIM-SULFAMETHOXAZOLE Inactive Advance Directives Directive Description Start [...] HGBA1C - Chemistry sodium, serum 134 mmol/L 835-983 6525/03/16 carbon dioxide, venous blood 34.5 mmol/L 21.0-32.0 potassium, serum 4.6 mmol/L 3.5-5.2 chloride, serum 93 mmol/L 98-107 blood glucose 408 mg/dL 65-110 urea nitrogen, blood 3 mg/dL 7-18 creatinine, serum 0.58 mg/dL 0.55-1.30 alanine aminotransferase (SGPT), serum 11 U/L 12-78 aspartate aminotransferase (SGOT), serum 8 U/L 15-37 calcium, serum 9.2 mg/dL 8.5-10.1 bilirubin, serum, total 0.30 mg/dL 0.00-1.00 cholesterol, serum 195 mg/dL 955-951 6231/03/16 triglyceride, serum, fasting 138 mg/dL 30-200 HDL [...] 0-19 Encounters Code Encounter Date Provider Facility CPT-92221 Level 4 Est. Patient 14:36:17 CDT Ang Markham MD [facility] CPT-66894 Level 3 Est. 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 CPT-99030 Level 3 Est. 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 CPT-22020 Level 4 Est. Patient 16:39:07 CDT Ang Markham MD [facility] CPT-63365 Level 3 Est. Patient 16:35:50 CDT Ang Markham MD [facility] CPT-92752 Level 4 Est. 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 Patient 18:48:29 CDT Anthony Whitfield [facility] CPT-63617 Level 3 Est. Patient 12:16:59 CDT Gabriel Hunt DO [facility] CPT-78370 Level 3 Est. Patient 18:57:15 CDT Anthony Whitfield [facility] CPT-95746 Level 3 Est. 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 Patient 16:27:02 CDT Eri Borges MD [facility] CPT-33746 Level 3 Est. Patient 10:36:43 CDT Octaviano Roselyn [facility] CPT-90842 Level 4 New Patient 08:58:06 CDT Ang Markham MD [facility] Procedures Code Procedure Name Date Entry Date Standard Description CPT-58565 Venipuncture Draw Fee 12:25:15 CDT CPT-81852 Knee 3V 16:48:40 CDT CPT-OV Office Visit 16:27:13 CDT CPT-OV Office Visit 16:21:19 CDT CPT-87519 Sono pelvis non OB uterus ovaries cervix 09:37:28 CDT
--- OUTSIDE RECORDS SUMMARY | 2018-12-22 01:29 | XMS REPORT | Clinical Summary ---
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 V58.67 Active Celestine [...] I, with hypoglycemia ICD-250.81 Nathan Markham MD detention use 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 ICD-V58.67 Nathan Markham MD Abdominal pain ICD-789.00 Nathan Markham MD Hematochezia ICD-578.1 Nathan Markham MD Nausea ICD-787.02 Nathan Markham MD 06/26 Otitis externa, acute, left ICD-380.12 Nathan Markham MD Medication List Medication Instructions Start Date Stop Date Generic Name NDC Status Provider Patient Instruction GEMFIBROZIL 600 MG TABS 1 po BID GEMFIBROZIL 53434704995 Active Ang Markham MD Active CORTISPORIN 3.5-04793-5 SOLN 4gtts in affected ear QID x 7 days [id number] 76484514651 No Longer Active Ang Markham MD Active TRESIBA FLEXTOUCH 200 UNIT/ML SC SOPN Take 70 units daily at mid-night to 1 am. INSULIN DEGLUDEC 21119436756 Active Celestine Sierraglari PROFESSIONAL SERVICES SPECIALIST Active LEVEMIR FLEXTOUCH 100 UNIT/ML SC SOPN 35 units SC at 12-1pm, 35 units 12-1am INSULIN DETEMIR 28982837909 No Longer Active Celestine PEARCE Active REGLAN 10 MG TAB 0.5 po TID 30min prior to meals METOCLOPRAMIDE HCL 06120251637 Active Ang Markham MD Active ZANTAC 150 MG TAB 1 po BID RANITIDINE HCL 99951178208 Active Ang Markham MD Active DOXEPIN HCL 10 MG CAP 1 tablet nightly for the itch DOXEPIN HCL 55638393572 Active Ang Markham MD Active COLACE 100 MG CAP 1 po daily DOCUSATE SODIUM 38203319168 Active Gabriel Hunt DO Active NOVOLOG FLEXPEN 100 UNIT/ML SOPN Take 20 units TID with meals, plus 2u/50 for blood sugars above 150. Ratio vs. Carbs INSULIN ASPART 13630423078 Active Gabriel Hunt DO Active BD PEN NEEDLE DINESH U/F 32G X 4 MM MISC 5 a day INSULIN PEN NEEDLE 04761297945 Active Janeyeh Ziglari PROFESSIONAL SERVICES SPECIALIST Active EMBRACE BLOOD GLUCOSE TEST STRP Test blood sugars 4 times daily and PRN 08/05 GLUCOSE BLOOD 97302597243 No Longer Active Malstepheneh Ziglari PROFESSIONAL SERVICES SPECIALIST Active TRUEPLUS LANCETS 30G MISC 4 a day LANCETS 81303649355 Active Maliheh Ziglari PROFESSIONAL SERVICES SPECIALIST Active TRUETEST TEST STRP check blood sugars 4x/day GLUCOSE BLOOD 03831244647 Active Maliheh Ziglari PROFESSIONAL SERVICES SPECIALIST Active TRUERESULT BLOOD GLUCOSE W/DEVICE KIT check blood sugars 4x a day BLOOD GLUCOSE MONITORING SUPPL 21159473939 Active Celestine PEARCE Active LISINOPRIL 5 MG TABS 1 po qd LISINOPRIL 02047529760 Active Ang Markham MD Active PAXIL 20 MG TAB 1 tablet by mouth daily PAROXETINE HCL 43964659462 Active Ang Markham MD Active GENTAMICIN SULFATE 0.1 % EXT OINT Apply to open sores once a day. GENTAMICIN SULFATE 67644252934 No Longer Active Ang Markham MD Active ZOLPIDEM TARTRATE 10 MG TABS 1 po qHS PRN Insomnia ZOLPIDEM TARTRATE 87251434640 Active Ang Markham MD Active BACTRIM DS 800-160 MG TAB 1 tab by mouth twice daily TRIMETHOPRIM-SULFAMETHOXAZOLE 71851033294 No Longer Active Gloria Dunbar NUMERICAL TOOL PROGRAMMER Active LEVEMIR FLEXPEN 100 UNIT/ML SOLN 40 units SC at bedtime INSULIN DETEMIR No Longer Active Susan Arellano RMA Active INSUPEN ULTRAFIN 31G X 6 MM MISC Use with insulin qid. DX: E11.9 INSULIN PEN NEEDLE 46005364385 Active Ang Markham MD Active ZOLOFT 100 MG TAB 1 po qHS SERTRALINE HCL 76239760955 No Longer Active Ang Markham MD Active MELOXICAM 15 MG TABS 1 po qd PRN Knee Pain MELOXICAM 99554217284 No Longer Active Ang Markham MD Active LIPITOR 40 MG TAB 1 po qHS ATORVASTATIN CALCIUM 64600336139 Active Ang Markham MD Active METFORMIN HCL 1000 MG TABS 1 tablet by mouth twice daily METFORMIN HCL 88156667369 Active Ang Markham MD Active CYCLOBENZAPRINE HCL 5 MG TABS 1 po qHS PRN Muscle pain CYCLOBENZAPRINE HCL 36932962238 Active Ang Markham MD Active COLACE 100 MG CAP 1 po BID PRN Constipation DOCUSATE SODIUM 63315230794 No Longer Active Ang Markham MD Active HYDROXYZINE HCL 25 MG TAB 1 TID PRN nerves HYDROXYZINE HCL 65514135353 Active Ang Markham MD Active IBUPROFEN 800 MG TABS 1 tab every 8 hours as needed for pain 2013 IBUPROFEN 02635962275 No Longer Active Ang Markham MD Active NITROFURANTOIN MACROCRYSTAL 100 MG CAPS 1 capsule PO bid x 7 days NITROFURANTOIN MACROCRYSTAL 25745776891 No Longer Active Ang Markham MD Active DIFLUCAN 150 MG TAB 1 qODay x 2 doses FLUCONAZOLE 10844216576 No Longer Active Jillpiedad oRmero NUMERICAL TOOL PROGRAMMER Active CEFTIN 500 MG TAB 1 tablet by mouth twice daily for 7 days 07/24 CEFUROXIME AXETIL 94509552124 No Longer Active Anthony CARBONE Active ZOLOFT 50 MG TAB 1 tablet by mouth daily SERTRALINE HCL 72099243103 No Longer Active Anthony CARBONE Active ANUSOL-HC 2.5 % CREAM apply as needed HYDROCORTISONE (RECTAL) 47325188370 No Longer Active Anthony CARBONE Active COLACE 100 MG CAP 1 tab PO BID DOCUSATE SODIUM 44132455249 No Longer Active Anthony CARBONE Active TRINESSA (28) 0.18/0.215/0.25 MG-35 MCG TABS 1 po qd as directed NORGESTIM-ETH ESTRAD TRIPHASIC 19450236627 No Longer Active Anthony CARBONE Active [facility] MELATONIN 5 MG TABS 1-2 po qHS PRN Insomnia MELATONIN 84428579938 No Longer Active Anthony CARBONE Active ACYCLOVIR 400 MG TABS ACYCLOVIR 75449786524 No Longer Active Ang Markham MD Active HYDROXYZINE HCL 25 MG TABS 1 tab PO tid PRN itching HYDROXYZINE HCL 97253706071 No Longer Active Ang Markham MD Active DIFLUCAN 150 MG TAB 1 qODay x 2 doses FLUCONAZOLE 07341623054 No Longer Active Da Romero APRN Active ACYCLOVIR 400 MG TABS 1 pill twice daily ACYCLOVIR 92608538345 No Longer Active Da Romero APRN Active AZITHROMYCIN 250 MG TABS 2 po qd x 1 day, then 1 po qd x 4 days AZITHROMYCIN 42231320857 No Longer Active Eri Borges MD PhD Active AZITHROMYCIN 250 MG TABS take 2 po day 1 then take1 po days 2-5 AZITHROMYCIN 76671976293 No Longer Active Octaviano CARBONE Active ACYCLOVIR 400 MG TABS 1 po qd ACYCLOVIR 30615357342 No Longer Active Ang Markham MD Active PROZAC 40 MG CAPS 1 cap by mouth at bedtime FLUOXETINE HCL 23648289891 No Longer Active Ang Markham MD Active HYDROXYZINE HCL 25 MG TABS 1 tab PO tid PRN itching HYDROXYZINE HCL 25 MG TABS 932691 HYDROXYZINE HCL Inactive [facility] MELATONIN 5 MG TABS 1-2 po qHS PRN Insomnia [facility] MELATONIN 5 MG TABS 642041 MELATONIN Inactive TRINESSA (28) 0.18/0.215/0.25 MG-35 MCG TABS 1 po qd as directed TRINESSA (28) 0.18/0.215/0.25 MG-35 MCG TABS 342345 NORGESTIM-ETH ESTRAD TRIPHASIC Inactive COLACE 100 MG CAP 1 tab PO BID COLACE 100 MG CAP 8812089 DOCUSATE SODIUM Inactive ANUSOL-HC 2.5 % CREAM apply as needed ANUSOL-HC 2.5 % CREAM 664506 HYDROCORTISONE (RECTAL) Inactive ZOLOFT 50 MG TAB 1 tablet by mouth daily ZOLOFT 50 MG TAB 294969 SERTRALINE HCL Inactive CEFTIN 500 MG TAB 1 tablet by mouth twice daily for 7 days 07/24 CEFTIN 500 MG TAB 273032 CEFUROXIME AXETIL Inactive NITROFURANTOIN MACROCRYSTAL 100 MG CAPS 1 capsule PO bid x 7 days NITROFURANTOIN MACROCRYSTAL 100 MG CAPS 4667193 NITROFURANTOIN MACROCRYSTAL Inactive IBUPROFEN 800 MG TABS 1 tab every 8 hours as needed for pain 2013 IBUPROFEN 800 MG TABS 366902 IBUPROFEN Inactive COLACE 100 MG CAP 1 po BID PRN Constipation COLACE 100 MG CAP 2777779 DOCUSATE SODIUM Inactive MELOXICAM 15 MG TABS 1 po qd PRN Knee Pain MELOXICAM 15 MG TABS 449325 MELOXICAM Inactive LEVEMIR FLEXPEN 100 UNIT/ML SOLN 40 units SC at bedtime LEVEMIR FLEXPEN 100 UNIT/ML SOLN INSULIN DETEMIR Inactive GENTAMICIN SULFATE 0.1 % EXT OINT Apply to open sores once a day. GENTAMICIN SULFATE 0.1 % EXT OINT 640831 GENTAMICIN SULFATE Inactive EMBRACE BLOOD GLUCOSE TEST STRP Test blood sugars 4 times daily and PRN 08/05 EMBRACE BLOOD GLUCOSE TEST STRP GLUCOSE BLOOD Inactive LEVEMIR FLEXTOUCH 100 UNIT/ML SC SOPN 35 units SC at 12-1pm, 35 units 12-1am LEVEMIR FLEXTOUCH 100 UNIT/ML SC SOPN INSULIN DETEMIR Inactive CORTISPORIN 3.5-20307-2 SOLN 4gtts in affected ear QID x 7 days CORTISPORIN 3.5-22699-1 SOLN 582099 [id number] Inactive ACYCLOVIR 400 MG TABS 1 po qd ACYCLOVIR 400 MG TABS 722032 ACYCLOVIR Inactive AZITHROMYCIN 250 MG TABS take 2 po day 1 then take1 po days 2-5 AZITHROMYCIN 250 MG TABS 8756959 AZITHROMYCIN Inactive AZITHROMYCIN 250 MG TABS 2 po qd x 1 day, then 1 po qd x 4 days AZITHROMYCIN 250 MG TABS 9155227 AZITHROMYCIN Inactive ACYCLOVIR 400 MG TABS 1 [...] twice daily BACTRIM DS 800-160 MG TAB 518708 TRIMETHOPRIM-SULFAMETHOXAZOLE Inactive Advance Directives Directive Description Start [...] HGBA1C - Chemistry sodium, serum 134 mmol/L 289-248 7742/03/16 carbon dioxide, venous blood 34.5 mmol/L 21.0-32.0 potassium, serum 4.6 mmol/L 3.5-5.2 chloride, serum 93 mmol/L 98-107 blood glucose 408 mg/dL 65-110 urea nitrogen, blood 3 mg/dL 7-18 creatinine, serum 0.58 mg/dL 0.55-1.30 alanine aminotransferase (SGPT), serum 11 U/L 12-78 aspartate aminotransferase (SGOT), serum 8 U/L 15-37 calcium, serum 9.2 mg/dL 8.5-10.1 bilirubin, serum, total 0.30 mg/dL 0.00-1.00 cholesterol, serum 195 mg/dL 813-427 5032/03/16 triglyceride, serum, fasting 138 mg/dL 30-200 HDL [...] Panel - Chemistry sodium, serum 130 mmol/L 474-719 3805/10/12 carbon dioxide, venous blood 28.1 mmol/L 21.0-32.0 potassium, serum 3.9 mmol/L 3.5-5.2 chloride, serum 91 mmol/L 98-107 blood glucose 547 mg/dL 65-110 urea nitrogen, blood 3 mg/dL 7-18 creatinine, serum 0.78 mg/dL 0.55-1.30 alanine aminotransferase (SGPT), serum 11 U/L 12-78 aspartate aminotransferase (SGOT), serum 7 U/L 15-37 calcium, serum 8.8 mg/dL 8.5-10.1 bilirubin, serum, total 0.30 mg/dL 0.00-1.00 cholesterol, serum 221 mg/dL 098-749 4499/10/12 triglyceride, serum, fasting 590 mg/dL 30-200 HDL [...] Panel - Chemistry sodium, serum 133 mmol/L [phone]/06/03 carbon dioxide, venous blood 33.4 mmol/L 21.0-32.0 [...] pH, urine, semiquantitative 5.5 5.0-8.5 Lab Report: [facility] [place] mg/dL Encounters Code Encounter Date Provider Facility CPT-42194 Level 4 Est. Patient 16:02:22 CDT [facility] CPT-61144 Level 3 Est. Patient 16:21:23 [facility] Est[facility] Patient 17:02:56 CDT Gabriel Hunt [facility] CPT-95950 Level 3 Est. Patient 14:46:22 CDT Da Romero [facility] CPT-85572 Level 4 Est. Patient 13:55:20 CDT [facility] CPT-16106 Level 4 Est. [facility] 16:10:09 [facility] Est[facility] Patient 13:51:24 CDT [facility] CPT-31673 Level 3 Est. Patient 18:42:15 CDT Gabriel Hunt [facility] CPT-18356 Level 5 Est. Patient 14:40:14 CDT Celestine Sierraisrael [facility] CPT-33483 Level 4 Est. Patient 14:36:17 CDT [facility] CPT-36545 Level 3 Est. Patient 11:13:47 DIVIDING MACHINE OPERATOR HELPER Ang [facility] CPT-89067 Level 3 Est. Patient 11:59:20 DIVIDING MACHINE OPERATOR HELPER Gloria Dunbar [facility] CPT-86870 Level 3 Est. Patient 17:32:37 DIVIDING MACHINE OPERATOR HELPER Gloria Dunbar [facility] CPT-25736 Level 4 Est. Patient 16:39:07 CDT Ang Markham MD [facility] CPT-77335 Level 3 Est. Patient 16:35:50 CDT Ang Markham MD [facility] CPT-57918 Level 4 Est. Patient 13:53:06 DIVIDING MACHINE OPERATOR HELPER Ang Markham MD [facility] CPT-81890 Level 3 Est. Patient 08:58:08 DIVIDING MACHINE OPERATOR HELPER [facility] CPT-34575 Level 3 Est. Patient 18:48:29 CDT Anthony Whitfield [facility] CPT-58954 Level 3 Est. Patient 12:16:59 CDT Gabriel Hunt DO [facility] CPT-10617 Level 3 Est. Patient 18:57:15 CDT Anthony Whitfield [facility] CPT-01121 Level 3 Est. Patient 13:59:22 DIVIDING MACHINE OPERATOR HELPER Ang Markham MD [facility] CPT-92478 Level 4 Est. Patient 10:36:08 DIVIDING MACHINE OPERATOR HELPER Ang Markham MD [facility] CPT-42857 Level 3 Est. Patient 16:27:02 CDT Eri Borges MD, PhD [facility] CPT-91550 Level 3 Est. Patient 10:36:43 CDT Octaviano Dempsey [facility] CPT-29489 Level 4 New Patient 08:58:06 CDT [facility] Procedures Code Procedure Name Date Entry Date Standard Description CPT-13944 Lipid - LAB USE ONLY 15:28:39 CDT CPT-81653 CMP - LAB USE ONLY 15:28:39 CDT CPT-10344 Venipuncture Draw Fee 15:28:39 CDT CPT-16745 Abd compl w upright - XRAY USE ONLY 14:09:39 CDT 02/28 CPT-24638 Venipuncture Draw Fee 12:25:15 CDT CPT-69126 Knee 3V 16:48:40 CDT CPT-OV Office Visit 16:27:13 CDT CPT-OV Office Visit 16:21:19 CDT CPT-56253 Sono pelvis non OB uterus ovaries cervix 09:37:28 CDT
[2018-12-22] MEDS ORDERED: KETOROLAC 60 MG/2 ML VIAL IM ONE (01:30)
[2018-12-22] MEDS ORDERED: CLINDAMYCIN 150 MG (CLEOCIN) CAP PO ONE (01:30)
--- OUTSIDE RECORDS SUMMARY | 2018-12-22 01:30 | XMS REPORT | Clinical Summary ---
Author Author Admin, E Organization [facility] Address Unknown Phone Unavailable Allergies, Adverse Reactions, [...] I [juvenile type], not stated as uncontrolled FDC use 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 V58.67 Resolved Ang [...] Resolved Ang Markham MD Acute swimmers' ear FDC use 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 V58.67 Active Celestine PEARCE Long-term (current) use of insulin Low back pain, acute 724.2 Active Shreya Velazquez ORACLE HRMS CONSULTANT Lumbago Pharyngitis, acute / sore throat 462 [...] I, with hypoglycemia ICD-250.81 Nathan Markham MD FDC use 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 ICD-V58.67 Nathan Markham MD Abdominal pain ICD-789.00 Nathan Markham MD Hematochezia ICD-578.1 Nathan Markham MD Nausea ICD-787.02 Inactive Ang Markham MD 06/26 Otitis externa, acute, left ICD-380.12 Inactive Ang Markham MD Medication List Medication Instructions Start Date Stop Date Generic Name NDC Status Provider Patient Instruction COLACE 100 MG CAP 1 po daily DOCUSATE SODIUM 47618267341 No Longer Active Jillina Frazell ORACLE HRMS CONSULTANT Active CARAFATE 1 GM/10ML ORAL SUSP 5 mg four times daily SUCRALFATE 69417198928 Active Jillina Frazell ORACLE HRMS CONSULTANT Active ZANTAC 150 MG TAB 1 po BID RANITIDINE HCL 33214541007 No Longer Active Jillina Frazell ORACLE HRMS CONSULTANT Active HYDROXYZINE HCL 25 MG TAB 1 TID PRN nerves HYDROXYZINE HCL 22791590500 No Longer Active Jillina Frazell ORACLE HRMS CONSULTANT Active CLINDAMYCIN HCL 300 MG ORAL CAPS 1 four times a day CLINDAMYCIN HCL 90241469986 No Longer Active Jillina Frazell ORACLE HRMS CONSULTANT Active TYLENOL WITH CODEINE #3 300-30 MG TABS 1 every four hours as needed for pain ACETAMINOPHEN-CODEINE 37472818122 Active Conner Hills MD Active LEVAQUIN 500 MG TABS 1 daily for infection LEVOFLOXACIN 20977535955 No Longer Active Conner Hills MD Active DOXEPIN HCL 10 MG CAP 1 tablet nightly for the itch DOXEPIN HCL 84725193107 No Longer Active Conner Hills MD Active TRESIBA FLEXTOUCH 200 UNIT/ML SC SOPN Take 70 units daily at mid-night to 1 am. INSULIN DEGLUDEC 82010962385 No Longer Active Conner Hills MD Active METFORMIN HCL 1000 MG TABS 1 tablet by mouth twice daily METFORMIN HCL 99668069345 No Longer Active Conner Hills MD Active LIPITOR 40 MG TAB 1 po qHS ATORVASTATIN CALCIUM 71693209090 No Longer Active Conner Hills MD Active GEMFIBROZIL 600 MG TABS 1 po BID GEMFIBROZIL 31606527888 No Longer Active Conner Hills MD Active CORTISPORIN 3.5-40091-1 SOLN 4gtts in affected ear QID x 7 days [id number] 40455529241 No Longer Active Ang Markham MD Active LEVEMIR FLEXTOUCH 100 UNIT/ML SC SOPN 35 units SC at 12-1pm, 35 units 12-1am INSULIN DETEMIR 16385807719 No Longer Active Celestine PEARCE Active REGLAN 10 MG TAB 0.5 po TID 30min prior to meals METOCLOPRAMIDE HCL 38433686309 Active Ang Markham MD Active NOVOLOG FLEXPEN 100 UNIT/ML SOPN Take 20 units TID with meals, plus 2u/50 for blood sugars above 150. Ratio vs. Carbs INSULIN ASPART 43118278109 Active Gabriel Hunt DO Active BD PEN NEEDLE DINESH U/F 32G X 4 MM MISC 5 a day INSULIN PEN NEEDLE 28292138841 Active Malstepheneh Ziglari NATIONAL ACCOUNT EXECUTIVE Active EMBRACE BLOOD GLUCOSE TEST STRP Test blood sugars 4 times daily and PRN 08/05 GLUCOSE BLOOD 47372337327 No Longer Active Malstepheneh Rigoglari NATIONAL ACCOUNT EXECUTIVE Active TRUEPLUS LANCETS 30G MISC 4 a day LANCETS 37496454638 Active Maliheh Ziglari NATIONAL ACCOUNT EXECUTIVE Active TRUETEST TEST STRP check blood sugars 4x/day GLUCOSE BLOOD 07355761999 Active Maliheh Ziglari NATIONAL ACCOUNT EXECUTIVE Active TRUERESULT BLOOD GLUCOSE W/DEVICE KIT check blood sugars 4x a day BLOOD GLUCOSE MONITORING SUPPL 67910757626 Active Malstepheneh Ziglari NATIONAL ACCOUNT EXECUTIVE Active LISINOPRIL 5 MG TABS 1 po qd LISINOPRIL 81467093085 Active Ang Markham MD Active PAXIL 20 MG TAB 1 tablet by mouth daily PAROXETINE HCL 30265360344 Active Ang Markham MD Active GENTAMICIN SULFATE 0.1 % EXT OINT Apply to open sores once a day. GENTAMICIN SULFATE 55142056306 No Longer Active Ang Markham MD Active ZOLPIDEM TARTRATE 10 MG TABS 1 po qHS PRN Insomnia ZOLPIDEM TARTRATE 68557643947 Active Ang Markham MD Active BACTRIM DS 800-160 MG TAB 1 tab by mouth twice daily TRIMETHOPRIM-SULFAMETHOXAZOLE 61722822306 No Longer Active Gloria Yokum ORACLE HRMS CONSULTANT Active LEVEMIR FLEXPEN 100 UNIT/ML SOLN 40 units SC at bedtime INSULIN DETEMIR No Longer Active Susan Adan RMA Active INSUPEN ULTRAFIN 31G X 6 MM MISC Use with insulin qid. DX: E11.9 INSULIN PEN NEEDLE 28396765838 Active Ang Markham MD Active ZOLOFT 100 MG TAB 1 po qHS SERTRALINE HCL 31098103142 No Longer Active Ang Markham MD Active MELOXICAM 15 MG TABS 1 po qd PRN Knee Pain MELOXICAM 00784061090 No Longer Active Ang Markham MD Active CYCLOBENZAPRINE HCL 5 MG TABS 1 po qHS PRN Muscle pain CYCLOBENZAPRINE HCL 28819647298 Active Ang Markham MD Active COLACE 100 MG CAP 1 po BID PRN Constipation DOCUSATE SODIUM 64692763811 No Longer Active Ang Markham MD Active IBUPROFEN 800 MG TABS 1 tab every 8 hours as needed for pain 2013 IBUPROFEN 95302418709 No Longer Active Ang Markham MD Active NITROFURANTOIN MACROCRYSTAL 100 MG CAPS 1 capsule PO bid x 7 days NITROFURANTOIN MACROCRYSTAL 20870785517 No Longer Active Ang Markham MD Active DIFLUCAN 150 MG TAB 1 qODay x 2 doses FLUCONAZOLE 25589696921 No Longer Active Da Romero APRN Active CEFTIN 500 MG TAB 1 tablet by mouth twice daily for 7 days 07/24 CEFUROXIME AXETIL 18165817943 No Longer Active Anthony CARBONE Active ZOLOFT 50 MG TAB 1 tablet by mouth daily SERTRALINE HCL 29817906657 No Longer Active Anthony CARBONE Active ANUSOL-HC 2.5 % CREAM apply as needed HYDROCORTISONE (RECTAL) 24145385621 No Longer Active Anthony CAROBNE Active COLACE 100 MG CAP 1 tab PO BID DOCUSATE SODIUM 78860003484 No Longer Active Anthony CARBONE Active TRINESSA (28) 0.18/0.215/0.25 MG-35 MCG TABS 1 po qd as directed NORGESTIM-ETH ESTRAD TRIPHASIC 52899771255 No Longer Active Anthony CARBONE Active [facility] MELATONIN 5 MG TABS 1-2 po qHS PRN Insomnia MELATONIN 36773564964 No Longer Active Anthony CARBONE Active ACYCLOVIR 400 MG TABS ACYCLOVIR 15584510281 No Longer Active Ang Markham MD Active HYDROXYZINE HCL 25 MG TABS 1 tab PO tid PRN itching HYDROXYZINE HCL 46263976681 No Longer Active Ang Markham MD Active DIFLUCAN 150 MG TAB 1 qODay x 2 doses FLUCONAZOLE 78509634317 No Longer Active Da Romero APRN Active ACYCLOVIR 400 MG TABS 1 pill twice daily ACYCLOVIR 90075758309 No Longer Active Josephllpiedad Romero APRN Active AZITHROMYCIN 250 MG TABS 2 po qd x 1 day, then 1 po qd x 4 days AZITHROMYCIN 70520808315 No Longer Active Eri Borges MD PhD Active AZITHROMYCIN 250 MG TABS take 2 po day 1 then take1 po days 2-5 AZITHROMYCIN 33553712508 No Longer Active Octaviano CARBONE Active ACYCLOVIR 400 MG TABS 1 po qd ACYCLOVIR 83321427807 No Longer Active Ang Markham MD Active PROZAC 40 MG CAPS 1 cap by mouth at bedtime FLUOXETINE HCL 58310572188 No Longer Active Ang Markham MD Active HYDROXYZINE HCL 25 MG TABS 1 tab PO tid PRN itching HYDROXYZINE HCL 25 MG TABS 319601 HYDROXYZINE HCL Inactive [facility] MELATONIN 5 MG TABS 1-2 po qHS PRN Insomnia [facility] MELATONIN 5 MG TABS 074698 MELATONIN Inactive TRINESSA (28) 0.18/0.215/0.25 MG-35 MCG TABS 1 po qd as directed TRINESSA (28) 0.18/0.215/0.25 MG-35 MCG TABS 716751 NORGESTIM-ETH ESTRAD TRIPHASIC Inactive COLACE 100 MG CAP 1 tab PO BID COLACE 100 MG CAP 7037649 DOCUSATE SODIUM Inactive ANUSOL-HC 2.5 % CREAM apply as needed ANUSOL-HC 2.5 % CREAM 581008 HYDROCORTISONE (RECTAL) Inactive ZOLOFT 50 MG TAB 1 tablet by mouth daily ZOLOFT 50 MG TAB 047263 SERTRALINE HCL Inactive CEFTIN 500 MG TAB 1 tablet by mouth twice daily for 7 days 07/24 CEFTIN 500 MG TAB 375414 CEFUROXIME AXETIL Inactive NITROFURANTOIN MACROCRYSTAL 100 MG CAPS 1 capsule PO bid x 7 days NITROFURANTOIN MACROCRYSTAL 100 MG CAPS 6974166 NITROFURANTOIN MACROCRYSTAL Inactive IBUPROFEN 800 MG TABS 1 tab every 8 hours as needed for pain 2013 IBUPROFEN 800 MG TABS 526267 IBUPROFEN Inactive COLACE 100 MG CAP 1 po BID PRN Constipation COLACE 100 MG CAP 5737509 DOCUSATE SODIUM Inactive MELOXICAM 15 MG TABS 1 po qd PRN Knee Pain MELOXICAM 15 MG TABS 436310 MELOXICAM Inactive LEVEMIR FLEXPEN 100 UNIT/ML SOLN 40 units SC at bedtime LEVEMIR FLEXPEN 100 UNIT/ML SOLN INSULIN DETEMIR Inactive GENTAMICIN SULFATE 0.1 % EXT OINT Apply to open sores once a day. GENTAMICIN SULFATE 0.1 % EXT OINT 369784 GENTAMICIN SULFATE Inactive EMBRACE BLOOD GLUCOSE TEST STRP Test blood sugars 4 times daily and PRN 08/05 EMBRACE BLOOD GLUCOSE TEST STRP GLUCOSE BLOOD Inactive LEVEMIR FLEXTOUCH 100 UNIT/ML SC SOPN 35 units SC at 12-1pm, 35 units 12-1am LEVEMIR FLEXTOUCH 100 UNIT/ML SC SOPN INSULIN DETEMIR Inactive CORTISPORIN 3.5-64494-4 SOLN 4gtts in affected ear QID x 7 days CORTISPORIN 3.5-45186-5 SOLN 201029 [id number] Inactive GEMFIBROZIL 600 MG TABS 1 po BID GEMFIBROZIL 600 MG TABS 929603 GEMFIBROZIL Inactive LIPITOR 40 MG TAB 1 po qHS LIPITOR 40 MG TAB 294254 ATORVASTATIN CALCIUM Inactive METFORMIN HCL 1000 MG TABS 1 tablet by mouth twice daily METFORMIN HCL 1000 MG TABS 497824 METFORMIN HCL Inactive TRESIBA FLEXTOUCH 200 UNIT/ML SC SOPN Take 70 units daily at mid-night to 1 am. TRESIBA FLEXTOUCH 200 UNIT/ML SC SOPN INSULIN DEGLUDEC Inactive DOXEPIN HCL 10 MG CAP 1 tablet nightly for the itch DOXEPIN HCL 10 MG CAP 2608162 DOXEPIN HCL Inactive LEVAQUIN 500 MG TABS 1 daily for infection LEVAQUIN 500 MG TABS 703685 LEVOFLOXACIN Inactive CLINDAMYCIN HCL 300 MG ORAL CAPS 1 four times a day CLINDAMYCIN HCL 300 MG ORAL CAPS 052109 CLINDAMYCIN HCL Inactive HYDROXYZINE HCL 25 MG TAB 1 TID PRN nerves HYDROXYZINE HCL 25 MG TAB 223126 HYDROXYZINE HCL Inactive ZANTAC 150 MG TAB 1 po BID ZANTAC 150 MG TAB 110549 RANITIDINE HCL Inactive COLACE 100 MG CAP 1 po daily COLACE 100 MG CAP 4627739 DOCUSATE SODIUM Inactive ACYCLOVIR 400 MG TABS 1 po qd ACYCLOVIR 400 MG TABS 19720928 ACYCLOVIR Inactive AZITHROMYCIN 250 MG TABS take 2 po day 1 then take1 po days 2-5 AZITHROMYCIN 250 MG TABS 794882 AZITHROMYCIN Inactive AZITHROMYCIN 250 MG TABS 2 po qd x 1 day, then 1 po qd x 4 days AZITHROMYCIN 250 MG TABS 019618 AZITHROMYCIN Inactive ACYCLOVIR 400 MG TABS 1 pill twice daily ACYCLOVIR 400 MG TABS 19720928 ACYCLOVIR Inactive DIFLUCAN 150 MG TAB 1 qODay x 2 doses DIFLUCAN 150 MG TAB 19760606 FLUCONAZOLE Inactive ACYCLOVIR 400 MG TABS ACYCLOVIR 400 MG TABS 19720928 ACYCLOVIR Inactive DIFLUCAN 150 MG TAB 1 qODay x 2 doses DIFLUCAN 150 MG TAB 574309 FLUCONAZOLE Inactive BACTRIM DS 800-160 MG TAB 1 tab by mouth twice daily BACTRIM DS 800-160 MG TAB 400927 TRIMETHOPRIM-SULFAMETHOXAZOLE Inactive Advance Directives Directive Description Start [...] Panel - Chemistry sodium, serum 130 mmol/L 863-374 8927/10/12 carbon dioxide, venous blood 28.1 mmol/L 21.0-32.0 potassium, serum 3.9 mmol/L 3.5-5.2 chloride, serum 91 mmol/L 98-107 blood glucose 547 mg/dL 65-110 urea nitrogen, blood 3 mg/dL 7-18 creatinine, serum 0.78 mg/dL 0.55-1.30 alanine aminotransferase (SGPT), serum 11 U/L 12-78 aspartate aminotransferase (SGOT), serum 7 U/L 15-37 calcium, serum 8.8 mg/dL 8.5-10.1 bilirubin, serum, total 0.30 mg/dL 0.00-1.00 cholesterol, serum 221 mg/dL 392-479 8351/10/12 triglyceride, serum, fasting 590 mg/dL 30-200 HDL cholesterol, serum 45 mg/dL 32-96 LDL cholesterol, serum 58 mg/dL 0-130 Encounters Code Encounter Date Provider Facility CPT-33453 Level 3 Est. Patient 14:52:33 CDT Da Romero [facility] CPT-62619 Level 3 Est. Patient 10:22:30 CDT Conner Hills MD [facility] CPT-73316 Level 3 Est. Patient 15:02:19 CDT Shreya Velazquez [facility] CPT-56911 Level 3 Est. Patient 13:22:25 CDT Gabriel Hunt [facility] CPT-15004 Level 4 Est. Patient 16:02:22 CDT Ang Markham MD [facility] CPT-84287 Level 3 Est. Patient 16:21:23 CDT Celestine Huerta [facility] CPT-85711 Level 3 Est. Patient 17:02:56 CDT Gabriel Hunt [facility] CPT-17244 Level 3 Est. Patient 14:46:22 CDT Da Romero [facility] CPT-24507 Level 4 Est. Patient 13:55:20 CDT Ang Markham MD [facility] CPT-73190 Level 4 Est. Patient 16:10:09 CDT Celestine Huerta [facility] CPT-80275 Level 3 Est. Patient 13:51:24 CDT Ang Markham MD [facility] CPT-95440 Level 3 Est. Patient 18:42:15 CDT Gabriel Hunt [facility] CPT-88057 Level 5 Est. Patient 14:40:14 CDT Celestine Huerta RAMSES [facility] CPT-36118 Level 4 Est. Patient 14:36:17 CDT Ang Markham MD [facility] CPT-22180 Level 3 Est. Patient 11:13:47 ORCHESTRA TEACHER Ang Makrham MD [facility] CPT-18287 Level 3 Est. Patient 11:59:20 ORCHESTRA TEACHER Gloria Dunbar [facility] CPT-90368 Level 3 Est. Patient 17:32:37 ORCHESTRA TEACHER Gloria Dunbar [facility] CPT-33827 Level 4 Est. Patient 16:39:07 CDT Ang Markham MD [facility] CPT-25475 Level 3 Est. Patient 16:35:50 CDT Ang Markham MD [facility] CPT-84984 Level 4 Est. Patient 13:53:06 ORCHESTRA TEACHER Ang Markham MD [facility] CPT-78297 Level 3 Est. Patient 08:58:08 ORCHESTRA TEACHER Ang Markham MD [facility] CPT-91879 Level 3 Est. Patient 18:48:29 CDT Anthony Whtifield [facility] CPT-16935 Level 3 Est. Patient 12:16:59 CDT Gabriel Hunt DO [facility] CPT-67286 Level 3 Est. Patient 18:57:15 CDT Anthony Whitfield [facility] CPT-36236 Level 3 Est. Patient 13:59:22 ORCHESTRA TEACHER Ang Markham MD [facility] CPT-32427 Level 4 Est. Patient 10:36:08 ORCHESTRA TEACHER Ang Markham MD [facility] CPT-31296 Level 3 Est. Patient 16:27:02 CDT Eri Borges MD PhD [facility] CPT-50903 Level 3 Est. Patient 10:36:43 CDT Octaviano CARBONE [facility] CPT-80313 Level 4 New Patient 08:58:06 CDT Ang Markham MD [facility] Procedures Code Procedure Name Date Entry Date Standard Description CPT-11424 LS spine comp w obliques - XRAY USE ONLY 15:34:48 CDT CPT-58163 Lipid - LAB USE ONLY 15:28:39 CDT CPT-41543 CMP - LAB USE ONLY 15:28:39 CDT CPT-85517 Venipuncture Draw Fee 15:28:39 CDT CPT-59731 Abd compl w upright - XRAY USE ONLY 14:09:39 CDT 02/28 CPT-97517 Venipuncture Draw Fee 12:25:15 CDT CPT-62742 Knee 3V 16:48:40 CDT CPT-OV Office Visit 16:27:13 CDT CPT-OV Office Visit 16:21:19 CDT CPT-98733 Sono pelvis non OB uterus ovaries cervix 09:37:28 CDT
--- OUTSIDE RECORDS SUMMARY | 2018-12-22 01:31 | XMS REPORT | Clinical Summary ---
Author Author Admin, ALEXANDER Organization [facility] Address Unknown Phone Unavailable Allergies, Adverse [...] LOM ICD-382.9 Inactive Eri Borges MD PhD Constipation ICD-564.00 Inactive Ang Markham MD Anal or rectal pain ICD-569.42 Inactive Ang Markham MD CANDIDAL VAGINITIS ICD-112.1 Inactive Ang Markham MD Joint crepitus, knee ICD-719.66 Inactive Ang Markham MD SINUSITIS, ACUTE ICD-461.9 Inactive Ang Markham MD Diabetes mellitus ICD-250.00 Inactive Ang Markham MD Vaginal discharge ICD-623.5 Inactive Ang Markham MD Amenorrhea ICD-626.0 Inactive Ang Markham MD Cystitis, acute ICD-595.0 Inactive Ang Markham MD UTI ICD-599.0 Inactive Ang Markham MD Medication List Medication Instructions Start Date Stop Date Generic Name NDC Status Provider Patient Instruction LIPITOR 40 MG TAB 1 po qHS ATORVASTATIN CALCIUM 52601971669 Active Ang Markham MD Active METFORMIN HCL 1000 MG TABS 1 tablet by mouth twice daily METFORMIN HCL 04019814049 Active Ang Markham MD Active CYCLOBENZAPRINE HCL 5 MG TABS 1 po qHS PRN Muscle pain CYCLOBENZAPRINE HCL 20711333879 Active Ang Markham MD Active MELOXICAM 15 MG TABS 1 po qd PRN Knee Pain MELOXICAM 33069909598 Active Ang Markham MD Active ZOLOFT 50 MG TAB 1 po qd SERTRALINE HCL 83227236869 Active Ang Markham MD Active COLACE 100 MG CAP 1 po BID PRN Constipation DOCUSATE SODIUM 19374994791 No Longer Active Ang Markham MD Active HYDROXYZINE HCL 25 MG TAB 1 TID PRN nerves HYDROXYZINE HCL 89982219106 Active Ang Markham MD Active IBUPROFEN 800 MG TABS 1 tab every 8 hours as needed for pain 2013 IBUPROFEN 13820605991 No Longer Active Ang Markham MD Active NITROFURANTOIN MACROCRYSTAL 100 MG CAPS 1 capsule PO bid x 7 days NITROFURANTOIN MACROCRYSTAL 36291071185 No Longer Active Ang Markham MD Active LEVEMIR FLEXPEN 100 UNIT/ML SOLN 40 units SC at bedtime INSULIN DETEMIR 81288583086 Active Ang Markham MD Active DIFLUCAN 150 MG TAB 1 qODay x 2 doses FLUCONAZOLE 65551900422 No Longer Active Da Nguyenl PRIMARY CARE SALES REPRESENTATIVE Active CEFTIN 500 MG TAB 1 tablet by mouth twice daily for 7 days 07/24 CEFUROXIME AXETIL 37413055303 No Longer Active Anthony CARBONE Active ZOLPIDEM TARTRATE 10 MG TABS 1 tab PO at hs ZOLPIDEM TARTRATE 45678343983 Active Ang Markham MD Active ZOLOFT 50 MG TAB 1 tablet by mouth daily SERTRALINE HCL 46337507323 No Longer Active Anthony CARBONE Active ANUSOL-HC 2.5 % CREAM apply as needed HYDROCORTISONE (RECTAL) 46368477054 No Longer Active Anthony CARBONE Active COLACE 100 MG CAP 1 tab PO BID DOCUSATE SODIUM 45236511238 No Longer Active Anthony CARBONE Active TRINESSA (28) 0.18/0.215/0.25 MG-35 MCG TABS 1 po qd as directed NORGESTIM-ETH ESTRAD TRIPHASIC 22330377506 No Longer Active Anthony CARBONE Active [facility] MELATONIN 5 MG TABS 1-2 po qHS PRN Insomnia MELATONIN 56431440844 No Longer Active Anthony CARBONE Active NOVOLOG FLEXPEN 100 UNIT/ML SOPN Take 18 units TID with meals INSULIN ASPART 01333600422 Active Anthony CARBONE Active ACYCLOVIR 400 MG TABS ACYCLOVIR 42974632008 No Longer Active Ang Markham MD Active EMBRACE BLOOD GLUCOSE TEST STRP Test blood sugars 4 times daily and PRN 08/05 GLUCOSE BLOOD 34505143294 Active Ang Markham MD Active HYDROXYZINE HCL 25 MG TABS 1 tab PO tid PRN itching HYDROXYZINE HCL 15734109198 No Longer Active Ang Markham MD Active DIFLUCAN 150 MG TAB 1 qODay x 2 doses FLUCONAZOLE 75442370918 No Longer Active Da Romero APRN Active ACYCLOVIR 400 MG TABS 1 pill twice daily ACYCLOVIR 68153794951 No Longer Active Jillina Nick PRIMARY CARE SALES REPRESENTATIVE Active AZITHROMYCIN 250 MG TABS 2 po qd x 1 day, then 1 po qd x 4 days AZITHROMYCIN 99460911469 No Longer Active Eri Borges MD PhD Active AZITHROMYCIN 250 MG TABS take 2 po day 1 then take1 po days 2-5 AZITHROMYCIN 52473004696 No Longer Active Octaviano CARBONE Active ACYCLOVIR 400 MG TABS 1 po qd ACYCLOVIR 98375583328 No Longer Active Ang Markham MD Active PROZAC 40 MG CAPS 1 cap by mouth at bedtime FLUOXETINE HCL 96001212421 No Longer Active Ang Markham MD Active HYDROXYZINE HCL 25 MG TABS 1 tab PO tid PRN itching HYDROXYZINE HCL 25 MG TABS 727436 HYDROXYZINE HCL Inactive [facility] MELATONIN 5 MG TABS 1-2 po qHS PRN Insomnia [facility] MELATONIN 5 MG TABS 007008 MELATONIN Inactive TRINESSA (28) 0.18/0.215/0.25 MG-35 MCG TABS 1 po qd as directed TRINESSA (28) 0.18/0.215/0.25 MG-35 MCG TABS 184664 NORGESTIM-ETH ESTRAD TRIPHASIC Inactive COLACE 100 MG CAP 1 tab PO BID COLACE 100 MG CAP 4191447 DOCUSATE SODIUM Inactive ANUSOL-HC 2.5 % CREAM apply as needed ANUSOL-HC 2.5 % CREAM 365405 HYDROCORTISONE (RECTAL) Inactive ZOLOFT 50 MG TAB 1 tablet by mouth daily ZOLOFT 50 MG TAB 270110 SERTRALINE HCL Inactive CEFTIN 500 MG TAB 1 tablet by mouth twice daily for 7 days 07/24 CEFTIN 500 MG TAB 378185 CEFUROXIME AXETIL Inactive NITROFURANTOIN MACROCRYSTAL 100 MG CAPS 1 capsule PO bid x 7 days NITROFURANTOIN MACROCRYSTAL 100 MG CAPS 808550 NITROFURANTOIN MACROCRYSTAL Inactive IBUPROFEN 800 MG TABS 1 tab every 8 hours as needed for pain 2013 IBUPROFEN 800 MG TABS 856844 IBUPROFEN Inactive COLACE 100 MG CAP 1 po BID PRN Constipation COLACE 100 MG CAP 9184901 DOCUSATE SODIUM Inactive ACYCLOVIR 400 MG TABS 1 po qd ACYCLOVIR 400 MG TABS 19720928 ACYCLOVIR Inactive AZITHROMYCIN 250 MG TABS take 2 po day 1 then take1 po days 2-5 AZITHROMYCIN 250 MG TABS 7191473 AZITHROMYCIN Inactive AZITHROMYCIN 250 MG TABS 2 po qd x 1 day, then 1 po qd x 4 days AZITHROMYCIN 250 MG TABS 2585009 AZITHROMYCIN Inactive ACYCLOVIR 400 MG TABS 1 pill twice daily ACYCLOVIR 400 MG TABS 19720928 ACYCLOVIR Inactive DIFLUCAN 150 MG TAB 1 qODay x 2 doses DIFLUCAN 150 MG TAB 199061 FLUCONAZOLE Inactive ACYCLOVIR 400 MG TABS ACYCLOVIR 400 MG TABS 19720928 ACYCLOVIR Inactive DIFLUCAN 150 MG TAB 1 qODay x 2 doses DIFLUCAN 150 MG TAB 767726 FLUCONAZOLE Inactive Advance Directives Directive Description Start [...] Lab Report: CBC W/DIFF, Comp. Metabolic Panel, [facility] - Chemistry sodium, serum 131 mmol/L 739-577 7611/10/27 potassium, serum 4.8 mmol/L 3.5-5.2 chloride, serum [...] HGBA1C - Chemistry sodium, serum 139 mmol/L 971-873 2213/02/03 potassium, serum 4.4 mmol/L 3.5-5.2 chloride, serum 98 mmol/L 98-107 carbon dioxide, venous blood 31.5 mmol/L 21.0-32.0 blood glucose 304 mg/dL 65-110 urea nitrogen, blood 10 mg/dL 7-18 creatinine, serum 0.80 mg/dL 0.60-1.30 alanine aminotransferase (SGPT), serum 23 U/L 12-78 aspartate aminotransferase (SGOT), serum 16 U/L 15-37 calcium, serum 9.4 mg/dL 8.5-10.1 bilirubin, serum, total 0.20 mg/dL 0.00-1.00 cholesterol, serum 309 mg/dL 748-886 5411/02/03 triglyceride, serum, fasting 277 mg/dL 30-200 HDL [...] 273 10^3/MM^3 10*3/mm3 142-424 Lab Report: Chlamydia/GC [id number] - Lab chlamydia DNA probe NOT DETECTED NOT DETECTED Lab Report: Chlamydia/GC APTIMA/[id number] - Microbiology Neisseria gonorrhoeae DNA probe NOT [...] Negative Encounters Code Encounter Date Provider Facility CPT-85145 Level 4 Est. Patient 13:53:06 BLUEPRINT CUTTER Ang Markham MD [facility] CPT-16533 Level 3 Est. Patient 08:58:08 BLUEPRINT CUTTER Ang Markham MD [facility] CPT-03181 Level 3 Est. Patient 18:48:29 CDT Anthony CARBONE [facility] CPT-91669 Level 3 Est. Patient 12:16:59 CDT Gabriel Hunt DO [facility] CPT-50004 Level 3 Est. Patient 18:57:15 CDT Anthony CARBONE [facility] CPT-23842 Level 3 Est. Patient 13:59:22 BLUEPRINT CUTTER Ang Markham MD [facility] CPT-20316 Level 4 Est. Patient 10:36:08 BLUEPRINT CUTTER Ang Markham MD [facility] CPT-59898 Level 3 Est. Patient 16:27:02 CDT Eri Borges MD PhD [facility] CPT-69802 Level 3 Est. Patient 10:36:43 CDT Octaviano Dempsey [facility] CPT-38367 Level 4 New Patient 08:58:06 CDT Ang Markham MD [facility] Procedures Code Procedure Name Date Entry Date Standard Description CPT-90048 Venipuncture Draw Fee 12:25:15 CDT CPT-80363 Knee 3V 16:48:40 CDT CPT-OV Office Visit 16:27:13 CDT CPT-OV Office Visit 16:21:19 CDT CPT-69356 Sono pelvis non OB uterus ovaries cervix 09:37:28 CDT
--- OUTSIDE RECORDS SUMMARY | 2018-12-22 01:32 | XMS REPORT | Clinical Summary ---
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 INSULIN DEGLUDEC 18932097453 Active Celestine Sierraglari LOSS PREVENTION/SAFETY DISTRICT MANAGER Active LEVEMIR FLEXTOUCH 100 UNIT/ML SC SOPN 35 units SC at 12-1pm, 35 units 12-1am INSULIN DETEMIR 01076956868 No Longer Active Celestine PEARCE Active REGLAN 10 MG TAB 0.5 po TID 30min prior to meals METOCLOPRAMIDE HCL 95959165931 Active Ang Markham MD Active ZANTAC 150 MG TAB 1 po BID RANITIDINE HCL 66296157910 Active Ang Markham MD Active DOXEPIN HCL 10 MG CAP 1 tablet nightly for the itch DOXEPIN HCL 75305978286 Active Ang Markham MD Active COLACE 100 MG CAP 1 po daily DOCUSATE SODIUM 62194179189 Active Gabriel Hunt DO Active NOVOLOG FLEXPEN 100 UNIT/ML SOPN Take 20 units TID with meals, plus 2u/50 for blood sugars above 150. Ratio vs. Carbs INSULIN ASPART 16390622923 Active Gabriel Hunt DO Active BD PEN NEEDLE DINESH U/F 32G X 4 MM MISC 5 a day INSULIN PEN NEEDLE 00125609469 Active Janeyeh Ziglari LOSS PREVENTION/SAFETY DISTRICT MANAGER Active EMBRACE BLOOD GLUCOSE TEST STRP Test blood sugars 4 times daily and PRN 08/05 GLUCOSE BLOOD 92203083323 No Longer Active Malstepheneh Ziglari LOSS PREVENTION/SAFETY DISTRICT MANAGER Active TRUEPLUS LANCETS 30G MISC 4 a day LANCETS 48676189985 Active Maliheh Ziglari LOSS PREVENTION/SAFETY DISTRICT MANAGER Active TRUETEST TEST STRP check blood sugars 4x/day GLUCOSE BLOOD 83948301848 Active Maliheh Ziglari LOSS PREVENTION/SAFETY DISTRICT MANAGER Active TRUERESULT BLOOD GLUCOSE W/DEVICE KIT check blood sugars 4x a day BLOOD GLUCOSE MONITORING SUPPL 56357775989 Active Celestine PEARCE Active LISINOPRIL 5 MG TABS 1 po qd LISINOPRIL 63346828052 Active Ang Markham MD Active PAXIL 20 MG TAB 1 tablet by mouth daily PAROXETINE HCL 29951235529 Active Ang Markham MD Active GENTAMICIN SULFATE 0.1 % EXT OINT Apply to open sores once a day. GENTAMICIN SULFATE 47871356148 No Longer Active Ang Markham MD Active ZOLPIDEM TARTRATE 10 MG TABS 1 po qHS PRN Insomnia ZOLPIDEM TARTRATE 20460238091 Active Ang Markham MD Active BACTRIM DS 800-160 MG TAB 1 tab by mouth twice daily TRIMETHOPRIM-SULFAMETHOXAZOLE 96741835151 No Longer Active Gloria Dunbar OPS MANAGER Active LEVEMIR FLEXPEN 100 UNIT/ML SOLN 40 units SC at bedtime INSULIN DETEMIR No Longer Active Susan Arellano RMA Active INSUPEN ULTRAFIN 31G X 6 MM MISC Use with insulin qid. DX: E11.9 INSULIN PEN NEEDLE 73576008669 Active Ang Markham MD Active ZOLOFT 100 MG TAB 1 po qHS SERTRALINE HCL 13344614613 No Longer Active Ang Markham MD Active MELOXICAM 15 MG TABS 1 po qd PRN Knee Pain MELOXICAM 72152583097 No Longer Active Ang Markham MD Active LIPITOR 40 MG TAB 1 po qHS ATORVASTATIN CALCIUM 24358022594 Active Ang Markham MD Active METFORMIN HCL 1000 MG TABS 1 tablet by mouth twice daily METFORMIN HCL 08160810285 Active Ang Markham MD Active CYCLOBENZAPRINE HCL 5 MG TABS 1 po qHS PRN Muscle pain CYCLOBENZAPRINE HCL 38841746836 Active Ang Markham MD Active COLACE 100 MG CAP 1 po BID PRN Constipation DOCUSATE SODIUM 06225936436 No Longer Active Ang Markham MD Active HYDROXYZINE HCL 25 MG TAB 1 TID PRN nerves HYDROXYZINE HCL 39508568964 Active Ang Markham MD Active IBUPROFEN 800 MG TABS 1 tab every 8 hours as needed for pain 2013 IBUPROFEN 16907777424 No Longer Active Ang Markham MD Active NITROFURANTOIN MACROCRYSTAL 100 MG CAPS 1 capsule PO bid x 7 days NITROFURANTOIN MACROCRYSTAL 33577119212 No Longer Active Ang Markham MD Active DIFLUCAN 150 MG TAB 1 qODay x 2 doses FLUCONAZOLE 79576338774 No Longer Active Jillpiedad Romero OPS MANAGER Active CEFTIN 500 MG TAB 1 tablet by mouth twice daily for 7 days 07/24 CEFUROXIME AXETIL 27531629473 No Longer Active Anthony CARBONE Active ZOLOFT 50 MG TAB 1 tablet by mouth daily SERTRALINE HCL 94671023516 No Longer Active Anthony CARBONE Active ANUSOL-HC 2.5 % CREAM apply as needed HYDROCORTISONE (RECTAL) 64485602170 No Longer Active Anthony CARBONE Active COLACE 100 MG CAP 1 tab PO BID DOCUSATE SODIUM 71805291347 No Longer Active Anthony CARBONE Active TRINESSA (28) 0.18/0.215/0.25 MG-35 MCG TABS 1 po qd as directed NORGESTIM-ETH ESTRAD TRIPHASIC 11213289544 No Longer Active Anthony CARBONE Active [facility] MELATONIN 5 MG TABS 1-2 po qHS PRN Insomnia MELATONIN 59687593411 No Longer Active Anthony CARBONE Active ACYCLOVIR 400 MG TABS ACYCLOVIR 51022546544 No Longer Active Ang Markham MD Active HYDROXYZINE HCL 25 MG TABS 1 tab PO tid PRN itching HYDROXYZINE HCL 77175987120 No Longer Active Ang Markham MD Active DIFLUCAN 150 MG TAB 1 qODay x 2 doses FLUCONAZOLE 72693674234 No Longer Active Da Romero APRN Active ACYCLOVIR 400 MG TABS 1 pill twice daily ACYCLOVIR 40198269710 No Longer Active Da Romero APRN Active AZITHROMYCIN 250 MG TABS 2 po qd x 1 day, then 1 po qd x 4 days AZITHROMYCIN 30019300405 No Longer Active Eri Borges MD PhD Active AZITHROMYCIN 250 MG TABS take 2 po day 1 then take1 po days 2-5 AZITHROMYCIN 78090101905 No Longer Active Octaviano CARBONE Active ACYCLOVIR 400 MG TABS 1 po qd ACYCLOVIR 63848358875 No Longer Active Ang Markham MD Active PROZAC 40 MG CAPS 1 cap by mouth at bedtime FLUOXETINE HCL 85732792312 No Longer Active Ang Markham MD Active HYDROXYZINE HCL 25 MG TABS 1 tab PO tid PRN itching HYDROXYZINE HCL 25 MG TABS 237783 HYDROXYZINE HCL Inactive [facility] MELATONIN 5 MG TABS 1-2 po qHS PRN Insomnia [facility] MELATONIN 5 MG TABS 964968 MELATONIN Inactive TRINESSA (28) 0.18/0.215/0.25 MG-35 MCG TABS 1 po qd as directed TRINESSA (28) 0.18/0.215/0.25 MG-35 MCG TABS 134872 NORGESTIM-ETH ESTRAD TRIPHASIC Inactive COLACE 100 MG CAP 1 tab PO BID COLACE 100 MG CAP 4756752 DOCUSATE SODIUM Inactive ANUSOL-HC 2.5 % CREAM apply as needed ANUSOL-HC 2.5 % CREAM 309503 HYDROCORTISONE (RECTAL) Inactive ZOLOFT 50 MG TAB 1 tablet by mouth daily ZOLOFT 50 MG TAB 879437 SERTRALINE HCL Inactive CEFTIN 500 MG TAB 1 tablet by mouth twice daily for 7 days 07/24 CEFTIN 500 MG TAB 182014 CEFUROXIME AXETIL Inactive NITROFURANTOIN MACROCRYSTAL 100 MG CAPS 1 capsule PO bid x 7 days NITROFURANTOIN MACROCRYSTAL 100 MG CAPS 4896833 NITROFURANTOIN MACROCRYSTAL Inactive IBUPROFEN 800 MG TABS 1 tab every 8 hours as needed for pain 2013 IBUPROFEN 800 MG TABS 942438 IBUPROFEN Inactive COLACE 100 MG CAP 1 po BID PRN Constipation COLACE 100 MG CAP 8408858 DOCUSATE SODIUM Inactive MELOXICAM 15 MG TABS 1 po qd PRN Knee Pain MELOXICAM 15 MG TABS 884769 MELOXICAM Inactive LEVEMIR FLEXPEN 100 UNIT/ML SOLN 40 units SC at bedtime LEVEMIR FLEXPEN 100 UNIT/ML SOLN INSULIN DETEMIR Inactive GENTAMICIN SULFATE 0.1 % EXT OINT Apply to open sores once a day. GENTAMICIN SULFATE 0.1 % EXT OINT 454403 GENTAMICIN SULFATE Inactive EMBRACE BLOOD GLUCOSE TEST STRP Test blood sugars 4 times daily and PRN 08/05 EMBRACE BLOOD GLUCOSE TEST STRP GLUCOSE BLOOD Inactive LEVEMIR FLEXTOUCH 100 UNIT/ML SC SOPN 35 units SC at 12-1pm, 35 units 12-1am LEVEMIR FLEXTOUCH 100 UNIT/ML SC SOPN INSULIN DETEMIR Inactive CORTISPORIN 3.5-38544-1 SOLN 4gtts in affected ear QID x 7 days CORTISPORIN 3.5-06166-9 SOLN 783822 [id number] Inactive ACYCLOVIR 400 MG TABS 1 po qd ACYCLOVIR 400 MG TABS 104215 ACYCLOVIR Inactive AZITHROMYCIN 250 MG TABS take 2 po day 1 then take1 po days 2-5 AZITHROMYCIN 250 MG TABS 8824062 AZITHROMYCIN Inactive AZITHROMYCIN 250 MG TABS 2 po qd x 1 day, then 1 po qd x 4 days AZITHROMYCIN 250 MG TABS 7001921 AZITHROMYCIN Inactive ACYCLOVIR 400 MG TABS 1 [...] Panel - Chemistry sodium, serum 130 mmol/L 305-300 9149/10/12 carbon dioxide, venous blood 28.1 mmol/L 21.0-32.0 potassium, serum 3.9 mmol/L 3.5-5.2 chloride, serum 91 mmol/L 98-107 blood glucose 547 mg/dL 65-110 urea nitrogen, blood 3 mg/dL 7-18 creatinine, serum 0.78 mg/dL 0.55-1.30 alanine aminotransferase (SGPT), serum 11 U/L 12-78 aspartate aminotransferase (SGOT), serum 7 U/L 15-37 calcium, serum 8.8 mg/dL 8.5-10.1 bilirubin, serum, total 0.30 mg/dL 0.00-1.00 cholesterol, serum 221 mg/dL 965-944 2840/10/12 triglyceride, serum, fasting 590 mg/dL 30-200 HDL cholesterol, serum 45 mg/dL 32-96 LDL cholesterol, serum 58 mg/dL 0-130 Lab Report: HGBA1C - Chemistry hemoglobin A1C, blood, as % of total hemoglobin 11.4 % 4.3-6.0 Lab Report: UADIP W/MICRO, AUTO, CBC W/DIFF, Comp. Metabolic Panel - Chemistry RBC, urine, dipstick Negative Negative sodium, serum 133 mmol/L 002-488 3365/06/03 carbon dioxide, venous blood 33.4 mmol/L 21.0-32.0 [...] mg/dL Encounters Code Encounter Date Provider Facility CPT-48117 Level 3 Est. Patient 13:22:25 CDT Gabriel Hunt DO [facility] CPT-20750 Level 4 Est. Patient 16:02:22 CDT Ang Markham MD [facility] CPT-36848 Level 3 Est. Patient 16:21:[address] [facility] CPT-87053 Level 3 Est. Patient 17:02:56 CDT Gabriel Hunt [facility] CPT-71927 Level 3 Est. Patient 14:46:22 CDT Da Romero [facility] CPT-37828 Level 4 Est. Patient 13:55:20 CDT Ang Markham MD [facility] CPT-87800 Level 4 Est. Patient 16:10:09 CDT Celestine Huerta [facility] CPT-73440 Level 3 Est. Patient 13:51:24 CDT Ang Markham MD [facility] CPT-80150 Level 3 Est. Patient 18:42:15 CDT Gabriel Hunt [facility] CPT-14833 Level 5 Est. Patient 14:40:14 CDT Celestine Huerta [facility] CPT-79611 Level 4 Est. Patient 14:36:17 CDT Ang Markham MD [facility] CPT-21098 Level 3 Est. Patient 11:13:47 CLAY PRESS OPERATOR Ang Markham MD [facility] CPT-55132 Level 3 Est. Patient 11:59:20 CLAY PRESS OPERATOR Gloria Dunbar [facility] CPT-61647 Level 3 Est. Patient 17:32:37 CLAY PRESS OPERATOR Gloria Dunbar [facility] CPT-52859 Level 4 Est. Patient 16:39:07 CDT Ang Markham MD [facility] CPT-78185 Level 3 Est. Patient 16:35:50 CDT Ang Markham MD [facility] CPT-66887 Level 4 Est. Patient 13:53:06 CLAY PRESS OPERATOR Ang Markham MD [facility] CPT-74540 Level 3 Est. Patient 08:58:08 CLAY PRESS OPERATOR Ang Markham MD [facility] CPT-59584 Level 3 Est. Patient 18:48:29 CDT Anthony Whitfield [facility] CPT-61046 Level 3 Est. Patient 12:16:59 CDT Gabriel Hunt DO [facility] CPT-63185 Level 3 Est. Patient 18:57:15 CDT Anthony Whitfield [facility] CPT-11563 Level 3 Est. Patient 13:59:22 CLAY PRESS OPERATOR Ang Markham MD [facility] CPT-38290 Level 4 Est. Patient 10:36:08 CLAY PRESS OPERATOR Ang Markham MD [facility] CPT-97446 Level 3 Est. Patient 16:27:02 CDT Eri Borges MD PhD [facility] CPT-47253 Level 3 Est. Patient 10:36:43 CDT Octaviano Dempsey [facility] CPT-61188 Level 4 New Patient 08:58:06 CDT Ang Markham MD [facility] Procedures Code Procedure Name Date Entry Date Standard Description CPT-70381 Lipid - LAB USE ONLY 15:28:39 CDT CPT-33583 CMP - LAB USE ONLY 15:28:39 CDT CPT-02236 Venipuncture Draw Fee 15:28:39 CDT CPT-87682 Abd compl w upright - XRAY USE ONLY 14:09:39 CDT 02/28 CPT-51259 Venipuncture Draw Fee 12:25:15 CDT CPT-93275 Knee 3V 16:48:40 CDT CPT-OV Office Visit 16:27:13 CDT CPT-OV Office Visit 16:21:19 CDT CPT-12149 Sono pelvis non OB uterus ovaries cervix 09:37:28 CDT
--- OUTSIDE RECORDS SUMMARY | 2018-12-22 01:32 | XMS REPORT | Clinical Summary ---
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 V58.67 Active Celestine [...] pain, bilateral ICD-719.46 Inactive Ang Markham MD DEPRESSION ICD-311 Inactive Ang Markham MD Insomnia ICD-780.52 Inactive Ang Markham MD Diabetes mellitus ICD-250.00 Inactive Ang Markham MD Vaginal discharge ICD-623.5 Inactive Ang Markham MD Amenorrhea ICD-626.0 Inactive Ang Markham MD Cystitis, acute ICD-595.0 Inactive Ang Markham MD Diabetes mellitus, type I, with hypoglycemia ICD-250.81 Nathan Markham MD detention use 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 ICD-V58.67 Nathan Markham MD Abdominal pain ICD-789.00 Inactive Ang Markham MD UTI ICD-599.0 Inactive Ang Markham MD Nausea ICD-787.02 Nathan Markham MD 06/26 Otitis externa, acute, left ICD-380.12 Nathan Markham MD Cellulitis, ankle, left ICD-682.6 Nathan Markham MD Hematochezia ICD-578.1 Nathan Markham MD Medication List Medication Instructions Start Date Stop Date Generic Name NDC Status Provider Patient Instruction GEMFIBROZIL 600 MG TABS 1 po BID GEMFIBROZIL 20724527004 Active Ang Markham MD Active CORTISPORIN 3.5-61477-8 SOLN 4gtts in affected ear QID x 7 days [id number] 18045915624 No Longer Active Ang Markham MD Active TRESIBA FLEXTOUCH 200 UNIT/ML SC SOPN Take 70 units daily at mid-night to 1 am. INSULIN DEGLUDEC 24733545276 Active Celestine Sierraglari [employer] Active LEVEMIR FLEXTOUCH 100 UNIT/ML SC SOPN 35 units SC at 12-1pm, 35 units 12-1am INSULIN DETEMIR 98082384782 No Longer Active Celestine PEARCE Active REGLAN 10 MG TAB 0.5 po TID 30min prior to meals METOCLOPRAMIDE HCL 53261956271 Active Ang Markham MD Active ZANTAC 150 MG TAB 1 po BID RANITIDINE HCL 65513557431 Active Ang Markham MD Active DOXEPIN HCL 10 MG CAP 1 tablet nightly for the itch DOXEPIN HCL 18134216519 Active Ang Markham MD Active COLACE 100 MG CAP 1 po daily DOCUSATE SODIUM 31712206676 Active Gabriel Hunt DO Active NOVOLOG FLEXPEN 100 UNIT/ML SOPN Take 20 units TID with meals, plus 2u/50 for blood sugars above 150. Ratio vs. Carbs INSULIN ASPART 08677265615 Active Gabriel Hunt DO Active BD PEN NEEDLE DINESH U/F 32G X 4 MM MISC 5 a day INSULIN PEN NEEDLE 50777942910 Active Janeyeh Ziglari [employer] Active EMBRACE BLOOD GLUCOSE TEST STRP Test blood sugars 4 times daily and PRN 08/05 GLUCOSE BLOOD 70233355039 No Longer Active Malstepheneh Ziglari [employer] Active TRUEPLUS LANCETS 30G MISC 4 a day LANCETS 88649400840 Active Maliheh Ziglari [employer] Active TRUETEST TEST STRP check blood sugars 4x/day GLUCOSE BLOOD 15781968539 Active Maliheh Ziglari [employer] Active TRUERESULT BLOOD GLUCOSE W/DEVICE KIT check blood sugars 4x a day BLOOD GLUCOSE MONITORING SUPPL 63479334678 Active Celestine PEARCE Active LISINOPRIL 5 MG TABS 1 po qd LISINOPRIL 96241438992 Active Ang Markham MD Active PAXIL 20 MG TAB 1 tablet by mouth daily PAROXETINE HCL 49401600560 Active Ang Markham MD Active GENTAMICIN SULFATE 0.1 % EXT OINT Apply to open sores once a day. GENTAMICIN SULFATE 94829111738 No Longer Active Ang Markham MD Active ZOLPIDEM TARTRATE 10 MG TABS 1 po qHS PRN Insomnia ZOLPIDEM TARTRATE 83727953814 Active Ang Markham MD Active BACTRIM DS 800-160 MG TAB 1 tab by mouth twice daily TRIMETHOPRIM-SULFAMETHOXAZOLE 03021755407 No Longer Active Gloria Dunbar ARCHEOLOGIST Active LEVEMIR FLEXPEN 100 UNIT/ML SOLN 40 units SC at bedtime INSULIN DETEMIR No Longer Active Susan Arellano RMA Active INSUPEN ULTRAFIN 31G X 6 MM MISC Use with insulin qid. DX: E11.9 INSULIN PEN NEEDLE 08889408161 Active Ang Markham MD Active ZOLOFT 100 MG TAB 1 po qHS SERTRALINE HCL 85853700124 No Longer Active Ang Markham MD Active MELOXICAM 15 MG TABS 1 po qd PRN Knee Pain MELOXICAM 72326340910 No Longer Active Ang Markham MD Active LIPITOR 40 MG TAB 1 po qHS ATORVASTATIN CALCIUM 39386533864 Active Ang Markham MD Active METFORMIN HCL 1000 MG TABS 1 tablet by mouth twice daily METFORMIN HCL 60096525505 Active Ang Markham MD Active CYCLOBENZAPRINE HCL 5 MG TABS 1 po qHS PRN Muscle pain CYCLOBENZAPRINE HCL 06424505367 Active Ang Markham MD Active COLACE 100 MG CAP 1 po BID PRN Constipation DOCUSATE SODIUM 62106589779 No Longer Active Ang Markham MD Active HYDROXYZINE HCL 25 MG TAB 1 TID PRN nerves HYDROXYZINE HCL 51166543009 Active Ang Markham MD Active IBUPROFEN 800 MG TABS 1 tab every 8 hours as needed for pain 2013 IBUPROFEN 29337182499 No Longer Active Ang Markham MD Active NITROFURANTOIN MACROCRYSTAL 100 MG CAPS 1 capsule PO bid x 7 days NITROFURANTOIN MACROCRYSTAL 67208812544 No Longer Active Ang Markham MD Active DIFLUCAN 150 MG TAB 1 qODay x 2 doses FLUCONAZOLE 95918420268 No Longer Active Jillpiedad Romero ARCHEOLOGIST Active CEFTIN 500 MG TAB 1 tablet by mouth twice daily for 7 days 07/24 CEFUROXIME AXETIL 53060382096 No Longer Active Anthony CARBONE Active ZOLOFT 50 MG TAB 1 tablet by mouth daily SERTRALINE HCL 63971620752 No Longer Active Anthony CARBONE Active ANUSOL-HC 2.5 % CREAM apply as needed HYDROCORTISONE (RECTAL) 77642519239 No Longer Active Anthony CARBONE Active COLACE 100 MG CAP 1 tab PO BID DOCUSATE SODIUM 55095917932 No Longer Active Anthony CARBONE Active TRINESSA (28) 0.18/0.215/0.25 MG-35 MCG TABS 1 po qd as directed NORGESTIM-ETH ESTRAD TRIPHASIC 73044070494 No Longer Active Anthony CARBONE Active [facility] MELATONIN 5 MG TABS 1-2 po qHS PRN Insomnia MELATONIN 70601785226 No Longer Active Anthony CARBONE Active ACYCLOVIR 400 MG TABS ACYCLOVIR 05947703984 No Longer Active Ang Markham MD Active HYDROXYZINE HCL 25 MG TABS 1 tab PO tid PRN itching HYDROXYZINE HCL 58020528790 No Longer Active Ang Markham MD Active DIFLUCAN 150 MG TAB 1 qODay x 2 doses FLUCONAZOLE 53607642453 No Longer Active Da Romero APRN Active ACYCLOVIR 400 MG TABS 1 pill twice daily ACYCLOVIR 26341806441 No Longer Active Da Romero APRN Active AZITHROMYCIN 250 MG TABS 2 po qd x 1 day, then 1 po qd x 4 days AZITHROMYCIN 01031659371 No Longer Active Eri Borges MD PhD Active AZITHROMYCIN 250 MG TABS take 2 po day 1 then take1 po days 2-5 AZITHROMYCIN 21651089189 No Longer Active Octaviano CARBONE Active ACYCLOVIR 400 MG TABS 1 po qd ACYCLOVIR 05500291794 No Longer Active Ang Markham MD Active PROZAC 40 MG CAPS 1 cap by mouth at bedtime FLUOXETINE HCL 68416167948 No Longer Active Ang Markham MD Active HYDROXYZINE HCL 25 MG TABS 1 tab PO tid PRN itching HYDROXYZINE HCL 25 MG TABS 916135 HYDROXYZINE HCL Inactive [facility] MELATONIN 5 MG TABS 1-2 po qHS PRN Insomnia [facility] MELATONIN 5 MG TABS 848672 MELATONIN Inactive TRINESSA (28) 0.18/0.215/0.25 MG-35 MCG TABS 1 po qd as directed TRINESSA (28) 0.18/0.215/0.25 MG-35 MCG TABS 392243 NORGESTIM-ETH ESTRAD TRIPHASIC Inactive COLACE 100 MG CAP 1 tab PO BID COLACE 100 MG CAP 2065573 DOCUSATE SODIUM Inactive ANUSOL-HC 2.5 % CREAM apply as needed ANUSOL-HC 2.5 % CREAM 583828 HYDROCORTISONE (RECTAL) Inactive ZOLOFT 50 MG TAB 1 tablet by mouth daily ZOLOFT 50 MG TAB 437534 SERTRALINE HCL Inactive CEFTIN 500 MG TAB 1 tablet by mouth twice daily for 7 days 07/24 CEFTIN 500 MG TAB 968590 CEFUROXIME AXETIL Inactive NITROFURANTOIN MACROCRYSTAL 100 MG CAPS 1 capsule PO bid x 7 days NITROFURANTOIN MACROCRYSTAL 100 MG CAPS 1444993 NITROFURANTOIN MACROCRYSTAL Inactive IBUPROFEN 800 MG TABS 1 tab every 8 hours as needed for pain 2013 IBUPROFEN 800 MG TABS 509392 IBUPROFEN Inactive COLACE 100 MG CAP 1 po BID PRN Constipation COLACE 100 MG CAP 7864258 DOCUSATE SODIUM Inactive MELOXICAM 15 MG TABS 1 po qd PRN Knee Pain MELOXICAM 15 MG TABS 039579 MELOXICAM Inactive LEVEMIR FLEXPEN 100 UNIT/ML SOLN 40 units SC at bedtime LEVEMIR FLEXPEN 100 UNIT/ML SOLN INSULIN DETEMIR Inactive GENTAMICIN SULFATE 0.1 % EXT OINT Apply to open sores once a day. GENTAMICIN SULFATE 0.1 % EXT OINT 434944 GENTAMICIN SULFATE Inactive EMBRACE BLOOD GLUCOSE TEST STRP Test blood sugars 4 times daily and PRN 08/05 EMBRACE BLOOD GLUCOSE TEST STRP GLUCOSE BLOOD Inactive LEVEMIR FLEXTOUCH 100 UNIT/ML SC SOPN 35 units SC at 12-1pm, 35 units 12-1am LEVEMIR FLEXTOUCH 100 UNIT/ML SC SOPN INSULIN DETEMIR Inactive CORTISPORIN 3.5-70649-3 SOLN 4gtts in affected ear QID x 7 days CORTISPORIN 3.5-86408-6 SOLN 962355 [id number] Inactive ACYCLOVIR 400 MG TABS 1 po qd ACYCLOVIR 400 MG TABS 893639 ACYCLOVIR Inactive AZITHROMYCIN 250 MG TABS take 2 po day 1 then take1 po days 2-5 AZITHROMYCIN 250 MG TABS 1315654 AZITHROMYCIN Inactive AZITHROMYCIN 250 MG TABS 2 po qd x 1 day, then 1 po qd x 4 days AZITHROMYCIN 250 MG TABS 7338450 AZITHROMYCIN Inactive ACYCLOVIR 400 MG TABS 1 [...] E&M - 3141-9 133.5 [lb_av] Weight Measured Diagnostic Results Date Name Value Unit Range Description Chart Maintenance: outside labs added to flowsheet - Chemistry blood glucose 397 mg/dL creatinine, serum 0.50 mg/dL Lab Report: CBC, Comp. Metabolic Panel, Lipid Panel, HGBA1C - Chemistry sodium, serum 134 mmol/L 569-705 0016/03/16 carbon dioxide, venous blood 34.5 mmol/L 21.0-32.0 potassium, serum 4.6 mmol/L 3.5-5.2 chloride, serum 93 mmol/L 98-107 blood glucose 408 mg/dL 65-110 urea nitrogen, blood 3 mg/dL 7-18 creatinine, serum 0.58 mg/dL 0.55-1.30 alanine aminotransferase (SGPT), serum 11 U/L 12-78 aspartate aminotransferase (SGOT), serum 8 U/L 15-37 calcium, serum 9.2 mg/dL 8.5-10.1 bilirubin, serum, total 0.30 mg/dL 0.00-1.00 cholesterol, serum 195 mg/dL 989-350 5001/03/16 triglyceride, serum, fasting 138 mg/dL 30-200 HDL [...] % 11.6-14.8 platelet count 429 10^3/MM^3 10*3/mm3 644-665 9778/03/16 hemoglobin, blood 13.3 g/dL 12.0-16.0 erythrocyte (RBC) count 5.06 10^6/MM^3 10*6/mm3 4.04-5.48 leukocyte count, blood 15.0 10^3/MM^3 10*3/mm3 4.6-10.2 Lab Report: Comp. Metabolic Panel, Lipid Panel - Chemistry sodium, serum 130 mmol/L 555-627 8709/10/12 carbon dioxide, venous blood 28.1 mmol/L 21.0-32.0 potassium, serum 3.9 mmol/L 3.5-5.2 chloride, serum 91 mmol/L 98-107 blood glucose 547 mg/dL 65-110 urea nitrogen, blood 3 mg/dL 7-18 creatinine, serum 0.78 mg/dL 0.55-1.30 alanine aminotransferase (SGPT), serum 11 U/L 12-78 aspartate aminotransferase (SGOT), serum 7 U/L 15-37 calcium, serum 8.8 mg/dL 8.5-10.1 bilirubin, serum, total 0.30 mg/dL 0.00-1.00 cholesterol, serum 221 mg/dL 775-808 6453/10/12 triglyceride, serum, fasting 590 mg/dL 30-200 HDL [...] dipstick Negative Negative sodium, serum 133 mmol/L 082-463 4028/06/03 carbon dioxide, venous blood 33.4 mmol/L 21.0-32.0 [...] CBC W/DIFF, Comp. Metabolic Panel - Urinalysis urine color Yellow Colorless;Lightyellow;Straw;Yellow appearance, urine SlCloudy Clear specific gravity, urine 1.015 1.000-1.030 urobilinogen, urine, semiquantitative (dipstick) 0.2 Normal leukocyte esterase, urine, by dipstick Negative Negative nitrite, urine, semiquantitative Negative Negative pH, urine, semiquantitative 5.5 5.0-8.5 glucose, urine, semiquantitative 3+ Negative ketones, urine, by test strip Negative Negative bilirubin, urine Negative Negative Lab Report: [facility] [place] - Chemistry human chorionic gonadotropin, urine, qualitative (urine test) Negative Negative Office Visit: Diabetes Visit - Chemistry cholesterol, target level 200 mg/dL triglyceride, target level 200 mg/dL HDL cholesterol, serum, target level 35 mg/dL LDL target level 100 mg/dL home glucose monitor utilized Yes HDL cholesterol, serum, target level 35 mg/dL LDL target level 100 mg/dL cholesterol, target level 200 mg/dL triglyceride, target level 200 mg/dL HDL cholesterol, serum, target level 35 mg/dL LDL target level 100 mg/dL cholesterol, target level 200 mg/dL triglyceride, target level 200 mg/dL Encounters Code Encounter Date Provider Facility CPT-64828 Level 3 Est. Patient 13:22:25 CDT Gabriel Hunt [facility] CPT-19625 Level 4 Est. Patient 16:02:22 CDT Ang Markham MD [facility] CPT-94497 Level 3 Est. Patient 16:21:23 CDT Celestine Huerta [facility] CPT-55499 Level 3 Est. Patient 17:02:56 CDT Gabriel Hunt [facility] CPT-84678 Level 3 Est. Patient 14:46:22 CDT Da Romero [facility] CPT-93742 Level 4 Est. Patient 13:55:20 CDT Ang Markham MD [facility] CPT-99225 Level 4 Est. Patient 16:10:09 CDT Celestine Huerta [facility] CPT-23728 Level 3 Est. Patient 13:51:24 CDT Ang Markham MD [facility] CPT-09629 Level 3 Est. Patient 18:42:15 CDT Gabriel Hunt [facility] CPT-47811 Level 5 Est. Patient 14:40:14 CDT Celestine Huerta [facility] CPT-33468 Level 4 Est. Patient 14:36:17 CDT Ang Markham MD [facility] CPT-87068 Level 3 Est. Patient 11:13:47 PANEL ASSEMBLER Ang Markham MD [facility] CPT-25847 Level 3 Est. Patient 11:59:20 PANEL ASSEMBLER Gloria Dunbar [facility] CPT-33830 Level 3 Est. Patient 17:32:37 PANEL ASSEMBLER Gloria Dunbar [facility] CPT-40013 Level 4 Est. Patient 16:39:07 CDT Ang Markham MD [facility] CPT-09744 Level 3 Est. Patient 16:35:50 CDT Ang Markham MD [facility] CPT-97520 Level 4 Est. Patient 13:53:06 PANEL ASSEMBLER Ang Markham MD [facility] CPT-12597 Level 3 Est. Patient 08:58:08 PANEL ASSEMBLER Ang Markham MD [facility] CPT-42937 Level 3 Est. Patient 18:48:29 CDT Anthony Whitfield [facility] CPT-79450 Level 3 Est. Patient 12:16:59 CDT Gabriel Hunt DO [facility] CPT-22458 Level 3 Est. Patient 18:57:15 CDT Anthony Whitfield [facility] CPT-34682 Level 3 Est. Patient 13:59:22 PANEL ASSEMBLER Ang Markham MD [facility] CPT-48517 Level 4 Est. Patient 10:36:08 PANEL ASSEMBLER Ang Markham MD [facility] CPT-55242 Level 3 Est. Patient 16:27:02 CDT Eri Borges MD, PhD [facility] CPT-85765 Level 3 Est. Patient 10:36:43 CDT Octaviano Dempsey [facility] CPT-60902 Level 4 New Patient 08:58:06 CDT Ang Markham MD [facility] Procedures Code Procedure Name Date Entry Date Standard Description CPT-01931 Lipid - LAB USE ONLY 15:28:39 CDT CPT-41653 CMP - LAB USE ONLY 15:28:39 CDT CPT-69795 Venipuncture Draw Fee 15:28:39 CDT CPT-07993 Abd compl w upright - XRAY USE ONLY 14:09:39 CDT 02/28 CPT-01349 Venipuncture Draw Fee 12:25:15 CDT CPT-43767 Knee 3V 16:48:40 CDT CPT-OV Office Visit 16:27:13 CDT CPT-OV Office Visit 16:21:19 CDT CPT-83670 Sono pelvis non OB uterus ovaries cervix 09:37:28 CDT
--- OUTSIDE RECORDS SUMMARY | 2018-12-22 01:33 | XMS REPORT | Clinical Summary ---
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 Active [...] acute ICD-595.0 Nathan Markham MD UTI ICD-599.0 Inactive Ang Markham MD Diabetes mellitus ICD-250.00 Inactive Ang Markham MD Vaginal discharge ICD-623.5 Nathan Markham MD Amenorrhea ICD-626.0 Nathan Markham MD Cellulitis, ankle, left ICD-682.6 Inactive Ang Markham MD Medication List Medication Instructions Start Date Stop Date Generic Name NDC Status Provider Patient Instruction DOXEPIN HCL 10 MG CAP 1 tablet nightly for the itch DOXEPIN HCL 38166641271 Active Gabriel Ramos Gilbert Active COLACE 100 MG CAP 1 po daily DOCUSATE SODIUM 38780685740 Active Gabriel Hunt DO Active NOVOLOG FLEXPEN 100 UNIT/ML SOPN Take 20 units TID with meals, plus 2u/50 for blood sugars above 150. Ratio vs. Carbs INSULIN ASPART 38158069216 Active Garbiel Hunt DO Active BD PEN NEEDLE DINESH U/F 32G X 4 MM MISC 5 a day INSULIN PEN NEEDLE 51806342144 Active Maliheh Ziglari LOCOMOTIVE OPERATOR Active LEVEMIR FLEXTOUCH 100 UNIT/ML SC SOPN 30 units SC at 12-1pm, 30 units 12-1am INSULIN DETEMIR 32810415393 Active Maliheh Ziglari LOCOMOTIVE OPERATOR Active EMBRACE BLOOD GLUCOSE TEST STRP Test blood sugars 4 times daily and PRN 08/05 GLUCOSE BLOOD 39429039174 No Longer Active Maliheh Ziglari LOCOMOTIVE OPERATOR Active TRUEPLUS LANCETS 30G MISC 4 a day LANCETS 16090444836 Active Maliheh Ziglari LOCOMOTIVE OPERATOR Active TRUETEST TEST STRP check blood sugars 4x/day GLUCOSE BLOOD 64524501520 Active Maliheh Ziglari LOCOMOTIVE OPERATOR Active TRUERESULT BLOOD GLUCOSE W/DEVICE KIT check blood sugars 4x a day BLOOD GLUCOSE MONITORING SUPPL 26566029545 Active Maliheh Ziglari LOCOMOTIVE OPERATOR Active LISINOPRIL 5 MG TABS 1 po qd LISINOPRIL 25119335136 Active Ang Markham MD Active PAXIL 20 MG TAB 1 tablet by mouth daily PAROXETINE HCL 90586830765 Active Ang Markham MD Active GENTAMICIN SULFATE 0.1 % EXT OINT Apply to open sores once a day. GENTAMICIN SULFATE 70555128428 No Longer Active Ang Markham MD Active ZOLPIDEM TARTRATE 10 MG TABS 1 po qHS PRN Insomnia ZOLPIDEM TARTRATE 23502003956 Active Ang Markham MD Active BACTRIM DS 800-160 MG TAB 1 tab by mouth twice daily TRIMETHOPRIM-SULFAMETHOXAZOLE 21279049655 No Longer Active Gloria Dunbar MEDICAL CERTIFICATION SPECIALIST Active LEVEMIR FLEXPEN 100 UNIT/ML SOLN 40 units SC at bedtime INSULIN DETEMIR No Longer Active Susan Arellano RMA Active INSUPEN ULTRAFIN 31G X 6 MM MISC Use with insulin qid. DX: E11.9 INSULIN PEN NEEDLE 63981901151 Active Ang Markham MD Active ZOLOFT 100 MG TAB 1 po qHS SERTRALINE HCL 78478769880 No Longer Active Ang Markham MD Active MELOXICAM 15 MG TABS 1 po qd PRN Knee Pain MELOXICAM 14126871274 No Longer Active Ang Markham MD Active LIPITOR 40 MG TAB 1 po qHS ATORVASTATIN CALCIUM 03428297379 Active Ang Markham MD Active METFORMIN HCL 1000 MG TABS 1 tablet by mouth twice daily METFORMIN HCL 15499322820 Active Ang Markham MD Active CYCLOBENZAPRINE HCL 5 MG TABS 1 po qHS PRN Muscle pain CYCLOBENZAPRINE HCL 72944145961 Active Ang Markham MD Active COLACE 100 MG CAP 1 po BID PRN Constipation DOCUSATE SODIUM 26864728790 No Longer Active Ang Markham MD Active HYDROXYZINE HCL 25 MG TAB 1 TID PRN nerves HYDROXYZINE HCL 78295735234 Active Ang Markham MD Active IBUPROFEN 800 MG TABS 1 tab every 8 hours as needed for pain 2013 IBUPROFEN 44479222424 No Longer Active Ang Markham MD Active NITROFURANTOIN MACROCRYSTAL 100 MG CAPS 1 capsule PO bid x 7 days NITROFURANTOIN MACROCRYSTAL 23255272827 No Longer Active Ang Markham MD Active DIFLUCAN 150 MG TAB 1 qODay x 2 doses FLUCONAZOLE 81057200089 No Longer Active Da Romero MEDICAL CERTIFICATION SPECIALIST Active CEFTIN 500 MG TAB 1 tablet by mouth twice daily for 7 days 07/24 CEFUROXIME AXETIL 87538745506 No Longer Active Anthony CARBONE Active ZOLOFT 50 MG TAB 1 tablet by mouth daily SERTRALINE HCL 99220769091 No Longer Active Anthony CARBONE Active ANUSOL-HC 2.5 % CREAM apply as needed HYDROCORTISONE (RECTAL) 26701341548 No Longer Active Anthony CARBONE Active COLACE 100 MG CAP 1 tab PO BID DOCUSATE SODIUM 28624865668 No Longer Active Anthony CARBONE Active TRINESSA (28) 0.18/0.215/0.25 MG-35 MCG TABS 1 po qd as directed NORGESTIM-ETH ESTRAD TRIPHASIC 29119577000 No Longer Active Anthony CARBONE Active [facility] MELATONIN 5 MG TABS 1-2 po qHS PRN Insomnia MELATONIN 40036940028 No Longer Active Anthony CARBONE Active ACYCLOVIR 400 MG TABS ACYCLOVIR 04310597551 No Longer Active Ang Markham MD Active HYDROXYZINE HCL 25 MG TABS 1 tab PO tid PRN itching HYDROXYZINE HCL 26317505772 No Longer Active Ang Markham MD Active DIFLUCAN 150 MG TAB 1 qODay x 2 doses FLUCONAZOLE 64185041494 No Longer Active Da Romero APRN Active ACYCLOVIR 400 MG TABS 1 pill twice daily ACYCLOVIR 36858713407 No Longer Active Da Romero APRN Active AZITHROMYCIN 250 MG TABS 2 po qd x 1 day, then 1 po qd x 4 days AZITHROMYCIN 31210720803 No Longer Active Eri Borges MD PhD Active AZITHROMYCIN 250 MG TABS take 2 po day 1 then take1 po days 2-5 AZITHROMYCIN 53050921072 No Longer Active Octaviano CARBONE Active ACYCLOVIR 400 MG TABS 1 po qd ACYCLOVIR 50496306400 No Longer Active Ang Markham MD Active PROZAC 40 MG CAPS 1 cap by mouth at bedtime FLUOXETINE HCL 37629405537 No Longer Active Ang Markham MD Active HYDROXYZINE HCL 25 MG TABS 1 tab PO tid PRN itching HYDROXYZINE HCL 25 MG TABS 000495 HYDROXYZINE HCL Inactive [facility] MELATONIN 5 MG TABS 1-2 po qHS PRN Insomnia [facility] MELATONIN 5 MG TABS 616931 MELATONIN Inactive TRINESSA (28) 0.18/0.215/0.25 MG-35 MCG TABS 1 po qd as directed TRINESSA (28) 0.18/0.215/0.25 MG-35 MCG TABS 727740 NORGESTIM-ETH ESTRAD TRIPHASIC Inactive COLACE 100 MG CAP 1 tab PO BID COLACE 100 MG CAP 4826204 DOCUSATE SODIUM Inactive ANUSOL-HC 2.5 % CREAM apply as needed ANUSOL-HC 2.5 % CREAM 472105 HYDROCORTISONE (RECTAL) Inactive ZOLOFT 50 MG TAB 1 tablet by mouth daily ZOLOFT 50 MG TAB 843570 SERTRALINE HCL Inactive CEFTIN 500 MG TAB 1 tablet by mouth twice daily for 7 days 07/24 CEFTIN 500 MG TAB 391124 CEFUROXIME AXETIL Inactive NITROFURANTOIN MACROCRYSTAL 100 MG CAPS 1 capsule PO bid x 7 days NITROFURANTOIN MACROCRYSTAL 100 MG CAPS 0209665 NITROFURANTOIN MACROCRYSTAL Inactive IBUPROFEN 800 MG TABS 1 tab every 8 hours as needed for pain 2013 IBUPROFEN 800 MG TABS 619544 IBUPROFEN Inactive COLACE 100 MG CAP 1 po BID PRN Constipation COLACE 100 MG CAP 1713972 DOCUSATE SODIUM Inactive MELOXICAM 15 MG TABS 1 po qd PRN Knee Pain MELOXICAM 15 MG TABS 505490 MELOXICAM Inactive LEVEMIR FLEXPEN 100 UNIT/ML SOLN 40 units SC at bedtime LEVEMIR FLEXPEN 100 UNIT/ML SOLN INSULIN DETEMIR Inactive GENTAMICIN SULFATE 0.1 % EXT OINT Apply to open sores once a day. GENTAMICIN SULFATE 0.1 % EXT OINT 554491 GENTAMICIN SULFATE Inactive EMBRACE BLOOD GLUCOSE TEST STRP Test blood sugars 4 times daily and PRN 08/05 EMBRACE BLOOD GLUCOSE TEST STRP GLUCOSE BLOOD Inactive ACYCLOVIR 400 MG TABS 1 po qd ACYCLOVIR 400 MG TABS 19720928 ACYCLOVIR Inactive AZITHROMYCIN 250 MG TABS take 2 po day 1 then take1 po days 2-5 AZITHROMYCIN 250 MG TABS 9267604 AZITHROMYCIN Inactive AZITHROMYCIN 250 MG TABS 2 po qd x 1 day, then 1 po qd x 4 days AZITHROMYCIN 250 MG TABS 6643657 AZITHROMYCIN Inactive ACYCLOVIR 400 MG TABS 1 pill twice daily ACYCLOVIR 400 MG TABS 19720928 ACYCLOVIR Inactive DIFLUCAN 150 MG TAB 1 qODay x 2 doses DIFLUCAN 150 MG TAB 350965 FLUCONAZOLE Inactive ACYCLOVIR 400 MG TABS ACYCLOVIR 400 MG TABS 19720928 ACYCLOVIR Inactive DIFLUCAN 150 MG TAB 1 qODay x 2 doses DIFLUCAN 150 MG TAB 978151 FLUCONAZOLE Inactive BACTRIM DS 800-160 MG TAB 1 tab by mouth twice daily BACTRIM DS 800-160 MG TAB 303358 TRIMETHOPRIM-SULFAMETHOXAZOLE Inactive Advance Directives Directive Description Start [...] HGBA1C - Chemistry sodium, serum 134 mmol/L 989-355 5697/03/16 carbon dioxide, venous blood 34.5 mmol/L 21.0-32.0 potassium, serum 4.6 mmol/L 3.5-5.2 chloride, serum 93 mmol/L 98-107 blood glucose 408 mg/dL 65-110 urea nitrogen, blood 3 mg/dL 7-18 creatinine, serum 0.58 mg/dL 0.55-1.30 alanine aminotransferase (SGPT), serum 11 U/L 12-78 aspartate aminotransferase (SGOT), serum 8 U/L 15-37 calcium, serum 9.2 mg/dL 8.5-10.1 bilirubin, serum, total 0.30 mg/dL 0.00-1.00 cholesterol, serum 195 mg/dL 910-036 8990/03/16 triglyceride, serum, fasting 138 mg/dL 30-200 HDL [...] dipstick Negative Negative sodium, serum 133 mmol/L 697-196 2999/06/03 carbon dioxide, venous blood 33.4 mmol/L 21.0-32.0 [...] pH, urine, semiquantitative 5.5 5.0-8.5 [place] [facility] [place] human chorionic gonadotropin, urine, qualitative (urine test) Negative Negative Office Visit: Diabetes Visit - Chemistry cholesterol, target level 200 mg/dL triglyceride, target level 200 mg/dL HDL cholesterol, serum, target level 35 mg/dL LDL target level 100 mg/dL home glucose monitor utilized Yes Encounters Code Encounter Date Provider Facility CPT-37151 Level 3 Est. Patient 13:51:24 CDT Ang Markham MD [facility] CPT-85279 Level 3 Est. Patient 18:42:15 CDT Gabriel Hunt DO [facility] CPT-20794 Level 5 Est. Patient 14:40:14 CDT Celestine PEARCE [facility] CPT-07652 Level 4 Est. Patient 14:36:17 CDT Ang Markham MD [facility] CPT-98989 Level 3 Est. Patient 11:13:47 CRITICAL CARE NURSE PRACTITIONER Ang Markham MD [facility] CPT-60873 Level 3 Est. Patient 11:59:20 CRITICAL CARE NURSE PRACTITIONER Gloria Dunbar [facility] CPT-35131 Level 3 Est. Patient 17:32:37 CRITICAL CARE NURSE PRACTITIONER Gloria Dunbar [facility] CPT-13588 Level 4 Est. Patient 16:39:07 CDT Ang Markham MD [facility] CPT-76466 Level 3 Est. Patient 16:35:50 CDT Ang Markham MD [facility] CPT-54794 Level 4 Est. Patient 13:53:06 CRITICAL CARE NURSE PRACTITIONER Agn Markham MD [facility] CPT-69318 Level 3 Est. Patient 08:58:08 CRITICAL CARE NURSE PRACTITIONER Ang Markham MD [facility] CPT-65050 Level 3 Est. Patient 18:48:29 CDT Anthony Whitfield [facility] CPT-91341 Level 3 Est. Patient 12:16:59 CDT Gabriel Hunt DO [facility] CPT-28511 Level 3 Est. Patient 18:57:15 CDT Anthony Whitfield [facility] CPT-07684 Level 3 Est. Patient 13:59:22 CRITICAL CARE NURSE PRACTITIONER Ang Markham MD [facility] CPT-36455 Level 4 Est. Patient 10:36:08 CRITICAL CARE NURSE PRACTITIONER Ang Markham MD [facility] CPT-17004 Level 3 Est. Patient 16:27:02 CDT Eri Borges MD PhD [facility] CPT-01186 Level 3 Est. Patient 10:36:43 CDT Octaviano Dempsey [facility] CPT-61513 Level 4 New Patient 08:58:06 CDT Ang Markham MD [facility] Procedures Code Procedure Name Date Entry Date Standard Description CPT-98248 Abd compl w upright - XRAY USE ONLY 14:09:39 CDT 02/28 CPT-62643 Venipuncture Draw Fee 12:25:15 CDT CPT-67880 Knee 3V 16:48:40 CDT CPT-OV Office Visit 16:27:13 CDT CPT-OV Office Visit 16:21:19 CDT CPT-55647 Sono pelvis non OB uterus ovaries cervix 09:37:28 CDT
--- NOTE | 2018-12-22 01:34 | ED Integumentary General ---
General Chief Complaint: Skin/Wound Problems Stated Complaint: HEAD PAIN Source: patient History of Present Illness Date Seen by Provider: Dec 22, 2018 Time Seen by Provider: 01:14 Initial Comments 23 yo F presenting with complaints of worsening pain to areas on her scalp. She has a history of MRSA and thinks might be that again. She usually goes to her doctor in [place], Dr. Owens, but now she lives here and wants to see a closer provider. She has not been running a fever or having chills but has not felt well. She has pain in her neck, especially on the left side from where she has swollen area behind the left ear going down in her neck . She has had no drainage from the spots on her scalp. She has had periods like this popped up on her scalp when she uses her roommates shampoo. She has not been having elevated sugars. She states that using her sliding scale insulin has been controlling them. Timing/Duration: getting worse (over the last several days) Severity: moderate Location: scalp Possible Cause: soaps (shampoo from her roommate) Associated Symptoms: change in skin texture; No fever; headache, malaise, swelling/mass/lumps Allergies and Home Medications Allergies Uncoded Allergies: PCN (Allergy, Unknown, 12/22/18) SULFA (Allergy, Unknown, 12/22/18) Home Medications Clindamycin HCl 300 Mg Capsule, 300 MG PO Q6H Prescribed by: PELON HARPER on 12/22/18 013 Naproxen 375 Mg Tablet.dr, 375 MG PO BID PRN for PAIN-MODERATE TO SEVERE Prescribed by: PELON HARPER on 12/22/18 013 Patient Home Medication List Home Medication List Reviewed: Yes Review of Systems Review of Systems Constitutional: No chills, No fever EENTM: see HPI Respiratory: no symptoms reported Cardiovascular: no symptoms reported Gastrointestinal: no symptoms reported Genitourinary: no symptoms reported Musculoskeletal: see HPI, neck pain (left side from behind ear down into neck) Skin: see HPI Psychiatric/Neurological: Headache Past Ptesggk-Hxugkn-Jxozlk Hx Past Med/Social Hx: Reviewed Nursing Past Med/Soc Hx Patient Social History Alcohol Use: Denies Use Recreational Drug Use: No Smoking Status: Current Everyday Smoker Type Used: Cigarettes 2nd Hand Smoke Exposure: Yes Recent Foreign Travel: No Contact w/Someone Who Travel: No Recent Hopitalizations: No Physical Abuse: No Sexual Abuse: No Mistreated: No Fear: No Seasonal Allergies Seasonal Allergies: No Past Medical History Surgeries: Yes ("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") Tonsillectomy Cardiac: No Neurological: No Sexually Transmitted Disease: No Genitourinary: No Gastrointestinal: No Musculoskeletal: No Endocrine: Yes Diabetes, Insulin dep HEENT: Yes (WEARS GLASSES) Loss of Vision: Bilateral Psychosocial: Yes Anxiety, Depression Integumentary: Yes (MRSA) Recent Skin Changes Blood Disorders: No Physical Exam Vital Signs Vital Signs - First Documented 12/22/18 01:05 Temp 96.5 Pulse 128 Resp 18 B/P (MAP) 105/73 (84) Pulse Ox 99 Capillary Refill : General Appearance: WD/WN, no apparent distress HEENT: PERRL/EOMI, TMs normal, pharynx normal, other (several sores on scalp with tender to palpation around the sores. No drainage. swelling around the sores. ) Neck: full range of motion, supple, lymphadenopathy (R), lymphadenopathy (L), tender lateral Cardiovascular: normal peripheral pulses, regular rate, rhythm Respiratory: lungs clear, normal breath sounds, no respiratory distress, no accessory muscle use Neurologic/Psychiatric: alert, normal mood/affect, oriented x 3 Skin: warm/dry, other (erythematous areas on her scalp with central eschars that are tender to palpation. no drainage or fluctuance. ) Progress/Results/Core Measures Results/Orders My Orders Orders - PELON HARPER MD Clindamycin Capsule (Cleocin Capsule) (12/22/18 01:30) Ketorolac Injection (Toradol Injection) (12/22/18 01:30) Rx-Hydrocodone/Apap 5-325 Mg (Rx-Vicodin (12/22/18 01:36) Medications Given in ED Current Medications Medications Dose Ordered Sig/Shanon Route Start Time Stop Time Status Last Admin Dose Admin Clindamycin HCl 300 mg ONCE ONCE PO 12/22/18 01:30 12/22/18 01:31 DC 12/22/18 01:32 300 MG Ketorolac Tromethamine 60 mg ONCE ONCE IM 12/22/18 01:30 12/22/18 01:31 DC 12/22/18 01:31 60 MG Vital Signs/I&O 12/22/18 12/22/18 01:05 01:10 Temp 96.5 98.0 Pulse 128 128 Resp 18 16 B/P (MAP) 105/73 (84) 105/73 (84) Pulse Ox 99 99 Progress Progress Note : Progress Note with her history of MRSA will treat for possible MRSA. Will try Clindamycin since she is allergic to penicillin and sulfa antibiotics. She states they had used that previously for her when she had MRSA. Counseled to follow up and recheck the infection, especially if not improving in 48-72 hours with antibiotics. Toradol shot tonight for pain and a take home pack of 4 hydrocodone for severe pain. Naproxen for pain at home. Departure Impression Primary Impression: Cellulitis of multiple sites of scalp and neck Additional Impression: History of MRSA infection Disposition: HOME, SELF-CARE Condition: Stable Departure-Patient Inst. Decision time for Depature: 01:29 Referrals: NO,LOCAL PHYSICIAN (PCP/Family) Primary Care Physician Patient Instructions: Cellulitis (Skin Infection), Adult (DC), Methicillin- Resistant Staphylococcus aureus (MRSA) Add. Discharge Instructions: Take the full course of antibiotics. Follow up with and establish with clinic for your continued care and recheck of the cellulitis and skin infection. If it is not improving in 48 to 72 hours then you may need to have IV antibiotics and be admitted to the hospital for further care. All discharge instructions reviewed with patient and/or family. Voiced understanding. Scripts Naproxen (EC-Naprosyn) 375 Mg Tablet. 375 MG PO BID PRN for PAIN-MODERATE TO SEVERE for 10 Days, #20 TAB 0 Refills Prov: PELON HARPER MD 12/22/18 Clindamycin HCl (Clindamycin HCl) 300 Mg Capsule 300 MG PO Q6H for cellulitis for 10 Days, #40 CAP 0 Refills Prov: PELON HARPER MD 12/22/18 PELON HARPER MD Dec 22, 2018 01:34
--- OUTSIDE RECORDS SUMMARY | 2018-12-22 01:34 | XMS REPORT | Clinical Summary ---
Author Author Admin, QIE Organization [facility] Address Unknown Phone Unavailable Allergies, Adverse Reactions, [...] 5 MG TABS 1 po qd LISINOPRIL 78475981434 Active Ang Markham MD Active NOVOLOG FLEXPEN 100 UNIT/ML SOPN Take 20 units TID with meals INSULIN ASPART 66784471684 Wiley Markham MD Active LEVEMIR FLEXTOUCH 100 UNIT/ML SC SOPN 60 units SC nightly INSULIN DETEMIR 57446488751 Wiley Markham MD Active COLACE 100 MG CAP 1 po BID PRN Constipation DOCUSATE SODIUM 69764845669 Wiley Markham MD Active PAXIL 20 MG TAB 1 tablet by mouth daily PAROXETINE HCL 64568111769 Wiley Markham MD Active GENTAMICIN SULFATE 0.1 % EXT OINT Apply to open sores once a day. GENTAMICIN SULFATE 56140373410 No Longer Active Ang Markham MD Active ZOLPIDEM TARTRATE 10 MG TABS 1 po qHS PRN Insomnia ZOLPIDEM TARTRATE 11293269961 Active Ang Markham MD Active BACTRIM DS 800-160 MG TAB 1 tab by mouth twice daily TRIMETHOPRIM-SULFAMETHOXAZOLE 18481748652 No Longer Active Gloria Jefersonum OUTSIDE RIGGER Active LEVEMIR FLEXPEN 100 UNIT/ML SOLN 40 units SC at bedtime INSULIN DETEMIR No Longer Active Susankalen Arellano RMA Active INSUPEN ULTRAFIN 31G X 6 MM MISC Use with insulin qid. DX: E11.9 INSULIN PEN NEEDLE 76514643153 Active Ang Markham MD Active ZOLOFT 100 MG TAB 1 po qHS SERTRALINE HCL 54796350895 No Longer Active Ang Markham MD Active MELOXICAM 15 MG TABS 1 po qd PRN Knee Pain MELOXICAM 95755150377 No Longer Active Ang Markham MD Active LIPITOR 40 MG TAB 1 po qHS ATORVASTATIN CALCIUM 83244558018 Active Ang Makrham MD Active METFORMIN HCL 1000 MG TABS 1 tablet by mouth twice daily METFORMIN HCL 32398039215 Active Ang Markham MD Active CYCLOBENZAPRINE HCL 5 MG TABS 1 po qHS PRN Muscle pain CYCLOBENZAPRINE HCL 13142061106 Active Ang Markham MD Active COLACE 100 MG CAP 1 po BID PRN Constipation DOCUSATE SODIUM 61179977735 No Longer Active Agn Markham MD Active HYDROXYZINE HCL 25 MG TAB 1 TID PRN nerves HYDROXYZINE HCL 25314866281 Active Ang Markham MD Active IBUPROFEN 800 MG TABS 1 tab every 8 hours as needed for pain 2013 IBUPROFEN 85546508849 No Longer Active Ang Markham MD Active NITROFURANTOIN MACROCRYSTAL 100 MG CAPS 1 capsule PO bid x 7 days NITROFURANTOIN MACROCRYSTAL 58946337345 No Longer Active Ang Markham MD Active DIFLUCAN 150 MG TAB 1 qODay x 2 doses FLUCONAZOLE 39347782749 No Longer Active Da Romero APRN Active CEFTIN 500 MG TAB 1 tablet by mouth twice daily for 7 days 07/24 CEFUROXIME AXETIL 24397336544 No Longer Active Anthony CARBONE Active ZOLOFT 50 MG TAB 1 tablet by mouth daily SERTRALINE HCL 91806395980 No Longer Active Anthony CARBONE Active ANUSOL-HC 2.5 % CREAM apply as needed HYDROCORTISONE (RECTAL) 74088837922 No Longer Active Anthony CARBONE Active COLACE 100 MG CAP 1 tab PO BID DOCUSATE SODIUM 51562519255 No Longer Active Anthony CARBONE Active TRINESSA (28) 0.18/0.215/0.25 MG-35 MCG TABS 1 po qd as directed NORGESTIM-ETH ESTRAD TRIPHASIC 34391844120 No Longer Active Anthony CARBONE Active [facility] MELATONIN 5 MG TABS 1-2 po qHS PRN Insomnia MELATONIN 53592574784 No Longer Active Anthony CARBONE Active ACYCLOVIR 400 MG TABS ACYCLOVIR 04246919020 No Longer Active Ang Markham MD Active EMBRACE BLOOD GLUCOSE TEST STRP Test blood sugars 4 times daily and PRN 08/05 GLUCOSE BLOOD 32901993752 Active Ang Markham MD Active HYDROXYZINE HCL 25 MG TABS 1 tab PO tid PRN itching HYDROXYZINE HCL 44303744307 No Longer Active Ang Markham MD Active DIFLUCAN 150 MG TAB 1 qODay x 2 doses FLUCONAZOLE 43877430514 No Longer Active Da Romero APRN Active ACYCLOVIR 400 MG TABS 1 pill twice daily ACYCLOVIR 05677116905 No Longer Active Da Romero APRN Active AZITHROMYCIN 250 MG TABS 2 po qd x 1 day, then 1 po qd x 4 days AZITHROMYCIN 29546245117 No Longer Active Eri Borges MD PhD Active AZITHROMYCIN 250 MG TABS take 2 po day 1 then take1 po days 2-5 AZITHROMYCIN 23550332811 No Longer Active Octaviano CARBONE Active ACYCLOVIR 400 MG TABS 1 po qd ACYCLOVIR 01130171221 No Longer Active Ang Markham MD Active PROZAC 40 MG CAPS 1 cap by mouth at bedtime FLUOXETINE HCL 69541969156 No Longer Active Ang Markham MD Active HYDROXYZINE HCL 25 MG TABS 1 tab PO tid PRN itching HYDROXYZINE HCL 25 MG TABS 717898 HYDROXYZINE HCL Inactive [facility] MELAT[facility]IN 5 MG TABS 1-2 po qHS PRN Insomnia [facility] MELATONIN 5 MG TABS 679562 MELATONIN Inactive TRINESSA (28) 0.18/0.215/0.25 MG-35 MCG TABS 1 po qd as directed TRINESSA (28) 0.18/0.215/0.25 MG-35 MCG TABS 253763 NORGESTIM-ETH ESTRAD TRIPHASIC Inactive COLACE 100 MG CAP 1 tab PO BID COLACE 100 MG CAP 3335656 DOCUSATE SODIUM Inactive ANUSOL-HC 2.5 % CREAM apply as needed ANUSOL-HC 2.5 % CREAM 897636 HYDROCORTISONE (RECTAL) Inactive ZOLOFT 50 MG TAB 1 tablet by mouth daily ZOLOFT 50 MG TAB 790760 SERTRALINE HCL Inactive CEFTIN 500 MG TAB 1 tablet by mouth twice daily for 7 days 07/24 CEFTIN 500 MG TAB 127285 CEFUROXIME AXETIL Inactive NITROFURANTOIN MACROCRYSTAL 100 MG CAPS 1 capsule PO bid x 7 days NITROFURANTOIN MACROCRYSTAL 100 MG CAPS 7854284 NITROFURANTOIN MACROCRYSTAL Inactive IBUPROFEN 800 MG TABS 1 tab every 8 hours as needed for pain 2013 IBUPROFEN 800 MG TABS 595313 IBUPROFEN Inactive COLACE 100 MG CAP 1 po BID PRN Constipation COLACE 100 MG CAP 2322374 DOCUSATE SODIUM Inactive MELOXICAM 15 MG TABS 1 po qd PRN Knee Pain MELOXICAM 15 MG TABS 212917 MELOXICAM Inactive LEVEMIR FLEXPEN 100 UNIT/ML SOLN 40 units SC at bedtime LEVEMIR FLEXPEN 100 UNIT/ML SOLN INSULIN DETEMIR Inactive GENTAMICIN SULFATE 0.1 % EXT OINT Apply to open sores once a day. GENTAMICIN SULFATE 0.1 % EXT OINT 067704 GENTAMICIN SULFATE Inactive ACYCLOVIR 400 MG TABS 1 po qd ACYCLOVIR 400 MG TABS 19720928 ACYCLOVIR Inactive AZITHROMYCIN 250 MG TABS take 2 po day 1 then take1 po days 2-5 AZITHROMYCIN 250 MG TABS 2885523 AZITHROMYCIN Inactive AZITHROMYCIN 250 MG TABS 2 po qd x 1 day, then 1 po qd x 4 days AZITHROMYCIN 250 MG TABS 5246886 AZITHROMYCIN Inactive ACYCLOVIR 400 MG TABS 1 pill twice daily ACYCLOVIR 400 MG TABS 781691 ACYCLOVIR Inactive DIFLUCAN 150 MG TAB 1 qODay x 2 doses DIFLUCAN 150 MG TAB 113809 FLUCONAZOLE Inactive ACYCLOVIR 400 MG TABS ACYCLOVIR 400 MG TABS 061201 ACYCLOVIR Inactive DIFLUCAN 150 MG TAB 1 qODay x 2 doses DIFLUCAN 150 MG TAB 665070 FLUCONAZOLE Inactive BACTRIM DS 800-160 MG TAB 1 tab by mouth twice daily BACTRIM DS 800-160 MG TAB 631823 TRIMETHOPRIM-SULFAMETHOXAZOLE Inactive Advance Directives Directive Description Start [...] HGBA1C - Chemistry sodium, serum 134 mmol/L 381-685 8795/03/16 carbon dioxide, venous blood 34.5 mmol/L 21.0-32.0 potassium, serum 4.6 mmol/L 3.5-5.2 chloride, serum 93 mmol/L 98-107 blood glucose 408 mg/dL 65-110 urea nitrogen, blood 3 mg/dL 7-18 creatinine, serum 0.58 mg/dL 0.55-1.30 alanine aminotransferase (SGPT), serum 11 U/L 12-78 aspartate aminotransferase (SGOT), serum 8 U/L 15-37 calcium, serum 9.2 mg/dL 8.5-10.1 bilirubin, serum, total 0.30 mg/dL 0.00-1.00 cholesterol, serum 195 mg/dL 685-417 5343/03/16 triglyceride, serum, fasting 138 mg/dL 30-200 HDL [...] 0-19 Encounters Code Encounter Date Provider Facility CPT-94503 Level 4 Est. Patient 14:36:17 CDT Ang Markham MD [facility] CPT-02978 Level 3 Est. Patient 11:13:47 MULE DEVELOPER Ang Markham MD [facility] CPT-81743 Level 3 Est. Patient 11:59:20 MULE DEVELOPER Gloria Dunbar [facility] CPT-49679 Level 3 Est. Patient 17:32:37 MULE DEVELOPER Gloria Dunbar [facility] CPT-44402 Level 4 Est. Patient 16:39:07 CDT Ang Markham MD [facility] CPT-52281 Level 3 Est. Patient 16:35:50 CDT Ang Markham MD [facility] CPT-74141 Level 4 Est. Patient 13:53:06 MULE DEVELOPER Ang Markham MD [facility] CPT-43084 Level 3 Est. Patient 08:58:08 MULE DEVELOPER Ang Markham MD [facility] CPT-43014 Level 3 Est. Patient 18:48:29 CDT Anthony Whitfield [facility] CPT-56409 Level 3 Est. Patient 12:16:59 CDT Gabriel Hunt DO [facility] CPT-42101 Level 3 Est. Patient 18:57:15 CDT Anthony Whitfield [facility] CPT-34867 Level 3 Est. Patient 13:59:22 MULE DEVELOPER Ang Markham MD [facility] CPT-39819 Level 4 Est. Patient 10:36:08 MULE DEVELOPER Ang Markham MD [facility] CPT-57365 Level 3 Est. Patient 16:27:02 CDT Eri Borges MD [facility] CPT-05640 Level 3 Est. Patient 10:36:43 CDT Octaviano Wilkersonjj [facility] CPT-97304 Level 4 New Patient 08:58:06 CDT Ang Markham MD [facility] Procedures Code Procedure Name Date Entry Date Standard Description CPT-27022 Venipuncture Draw Fee 12:25:15 CDT CPT-89968 Knee 3V 16:48:40 CDT CPT-OV Office Visit 16:27:13 CDT CPT-OV Office Visit 16:21:19 CDT CPT-14887 Sono pelvis non OB uterus ovaries cervix 09:37:28 CDT
[2018-12-22] MEDS ORDERED: [UNRECOGNIZED DRUG - CODE] PO (01:35)
[2018-12-22] MEDS ORDERED: CLIN300C11 PO (01:35)
--- OUTSIDE RECORDS SUMMARY | 2018-12-22 01:35 | XMS REPORT | Clinical Summary ---
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] Abdominal pain 789.00 Resolved Ang aMrkham MD Abdominal pain, unspecified site Diabetes mellitus, [...] Resolved Ang Markham MD Acute swimmers' ear USP use 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 V58.67 Active Celestine [...] I, with hypoglycemia ICD-250.81 Nathan Markham MD USP use 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 ICD-V58.67 Nathan Markham MD Abdominal pain ICD-789.00 Nathan Markham MD Hematochezia ICD-578.1 Nathan Markham MD Nausea ICD-787.02 Nathan Markham MD 06/26 Otitis externa, acute, left ICD-380.12 Nathan Markham MD Medication List Medication Instructions Start Date Stop Date Generic Name NDC Status Provider Patient Instruction GEMFIBROZIL 600 MG TABS 1 po BID GEMFIBROZIL 37949187073 Active Ang Markham MD Active CORTISPORIN 3.5-89070-1 SOLN 4gtts in affected ear QID x 7 days [id number]-OLSVMCOOW-OL 40346436683 No Longer Active Ang Markham MD Active TRESIBA FLEXTOUCH 200 UNIT/ML SC SOPN Take 70 units daily at mid-night to 1 am. INSULIN DEGLUDEC 94603565393 Active Celestine Sierraglari INTERNATIONAL TRAVEL CONSULTANT Active LEVEMIR FLEXTOUCH 100 UNIT/ML SC SOPN 35 units SC at 12-1pm, 35 units 12-1am INSULIN DETEMIR 84710838003 No Longer Active Celestine PEARCE Active REGLAN 10 MG TAB 0.5 po TID 30min prior to meals METOCLOPRAMIDE HCL 64213856617 Active Ang Markham MD Active ZANTAC 150 MG TAB 1 po BID RANITIDINE HCL 87661305830 Active Ang Markham MD Active DOXEPIN HCL 10 MG CAP 1 tablet nightly for the itch DOXEPIN HCL 43659508421 Active Ang Markham MD Active COLACE 100 MG CAP 1 po daily DOCUSATE SODIUM 88952859160 Active Gabriel Hunt DO Active NOVOLOG FLEXPEN 100 UNIT/ML SOPN Take 20 units TID with meals, plus 2u/50 for blood sugars above 150. Ratio vs. Carbs INSULIN ASPART 61799309424 Active Gabriel Hunt DO Active BD PEN NEEDLE DINESH U/F 32G X 4 MM MISC 5 a day INSULIN PEN NEEDLE 27141025727 Active Malstepheneh Ziglari INTERNATIONAL TRAVEL CONSULTANT Active EMBRACE BLOOD GLUCOSE TEST STRP Test blood sugars 4 times daily and PRN 08/05 GLUCOSE BLOOD 69127501836 No Longer Active Malstepheneh Ziglari INTERNATIONAL TRAVEL CONSULTANT Active TRUEPLUS LANCETS 30G MISC 4 a day LANCETS 89297465316 Active Maliheh Ziglari INTERNATIONAL TRAVEL CONSULTANT Active TRUETEST TEST STRP check blood sugars 4x/day GLUCOSE BLOOD 02585569643 Active Maliheh Ziglari INTERNATIONAL TRAVEL CONSULTANT Active TRUERESULT BLOOD GLUCOSE W/DEVICE KIT check blood sugars 4x a day BLOOD GLUCOSE MONITORING SUPPL 75355910558 Active Celestine PEARCE Active LISINOPRIL 5 MG TABS 1 po qd LISINOPRIL 50911102872 Active Ang Markhma MD Active PAXIL 20 MG TAB 1 tablet by mouth daily PAROXETINE HCL 67370052659 Active Ang Markham MD Active GENTAMICIN SULFATE 0.1 % EXT OINT Apply to open sores once a day. GENTAMICIN SULFATE 26795730214 No Longer Active Ang Markham MD Active ZOLPIDEM TARTRATE 10 MG TABS 1 po qHS PRN Insomnia ZOLPIDEM TARTRATE 08676288971 Active Ang Markham MD Active BACTRIM DS 800-160 MG TAB 1 tab by mouth twice daily TRIMETHOPRIM-SULFAMETHOXAZOLE 84888029280 No Longer Active Gloria Dunbar DOUGH MIXER OPERATOR Active LEVEMIR FLEXPEN 100 UNIT/ML SOLN 40 units SC at bedtime INSULIN DETEMIR No Longer Active Susan Arellano RMA Active INSUPEN ULTRAFIN 31G X 6 MM MISC Use with insulin qid. DX: E11.9 INSULIN PEN NEEDLE 34413927988 Active Ang Markham MD Active ZOLOFT 100 MG TAB 1 po qHS SERTRALINE HCL 93722147565 No Longer Active Ang Markham MD Active MELOXICAM 15 MG TABS 1 po qd PRN Knee Pain MELOXICAM 39711206955 No Longer Active Ang Markham MD Active LIPITOR 40 MG TAB 1 po qHS ATORVASTATIN CALCIUM 29747845888 Active Ang Markham MD Active METFORMIN HCL 1000 MG TABS 1 tablet by mouth twice daily METFORMIN HCL 35818792872 Active Ang Markham MD Active CYCLOBENZAPRINE HCL 5 MG TABS 1 po qHS PRN Muscle pain CYCLOBENZAPRINE HCL 89682200026 Active Ang Markham MD Active COLACE 100 MG CAP 1 po BID PRN Constipation DOCUSATE SODIUM 27245859939 No Longer Active Ang Markham MD Active HYDROXYZINE HCL 25 MG TAB 1 TID PRN nerves HYDROXYZINE HCL 02020790467 Active Ang Markham MD Active IBUPROFEN 800 MG TABS 1 tab every 8 hours as needed for pain 2013 IBUPROFEN 17207081757 No Longer Active Ang Markham MD Active NITROFURANTOIN MACROCRYSTAL 100 MG CAPS 1 capsule PO bid x 7 days NITROFURANTOIN MACROCRYSTAL 49700660911 No Longer Active Ang Markham MD Active DIFLUCAN 150 MG TAB 1 qODay x 2 doses FLUCONAZOLE 75781317907 No Longer Active Jillpiedad Romero APRN Active CEFTIN 500 MG TAB 1 tablet by mouth twice daily for 7 days 07/24 CEFUROXIME AXETIL 67330369583 No Longer Active Anthony CARBONE Active ZOLOFT 50 MG TAB 1 tablet by mouth daily SERTRALINE HCL 08300186653 No Longer Active Anthony CARBONE Active ANUSOL-HC 2.5 % CREAM apply as needed HYDROCORTISONE (RECTAL) 04689951232 No Longer Active Anthony CARBONE Active COLACE 100 MG CAP 1 tab PO BID DOCUSATE SODIUM 76621164824 No Longer Active Anthony CARBONE Active TRINESSA (28) 0.18/0.215/0.25 MG-35 MCG TABS 1 po qd as directed NORGESTIM-ETH ESTRAD TRIPHASIC 63850723029 No Longer Active Anthony CARBONE Active [facility] MELATONIN 5 MG TABS 1-2 po qHS PRN Insomnia MELATONIN 39258045323 No Longer Active Anthony CARBONE Active ACYCLOVIR 400 MG TABS ACYCLOVIR 26911667204 No Longer Active Ang Markham MD Active HYDROXYZINE HCL 25 MG TABS 1 tab PO tid PRN itching HYDROXYZINE HCL 84619287571 No Longer Active Ang Markham MD Active DIFLUCAN 150 MG TAB 1 qODay x 2 doses FLUCONAZOLE 82784781626 No Longer Active Da Romero APRN Active ACYCLOVIR 400 MG TABS 1 pill twice daily ACYCLOVIR 81313692863 No Longer Active Da Romero APRN Active AZITHROMYCIN 250 MG TABS 2 po qd x 1 day, then 1 po qd x 4 days AZITHROMYCIN 05926108496 No Longer Active Eri Borges MD PhD Active AZITHROMYCIN 250 MG TABS take 2 po day 1 then take1 po days 2-5 AZITHROMYCIN 63241814268 No Longer Active Octaviano CARBONE Active ACYCLOVIR 400 MG TABS 1 po qd ACYCLOVIR 49513505827 No Longer Active Ang Markham MD Active PROZAC 40 MG CAPS 1 cap by mouth at bedtime FLUOXETINE HCL 24544708631 No Longer Active Ang Markham MD Active HYDROXYZINE HCL 25 MG TABS 1 tab PO tid PRN itching HYDROXYZINE HCL 25 MG TABS 101220 HYDROXYZINE HCL Inactive [facility] MELATONIN 5 MG TABS 1-2 po qHS PRN Insomnia [facility] MELATONIN 5 MG TABS 292270 MELATONIN Inactive TRINESSA (28) 0.18/0.215/0.25 MG-35 MCG TABS 1 po qd as directed TRINESSA (28) 0.18/0.215/0.25 MG-35 MCG TABS 875391 NORGESTIM-ETH ESTRAD TRIPHASIC Inactive COLACE 100 MG CAP 1 tab PO BID COLACE 100 MG CAP 9176475 DOCUSATE SODIUM Inactive ANUSOL-HC 2.5 % CREAM apply as needed ANUSOL-HC 2.5 % CREAM 008315 HYDROCORTISONE (RECTAL) Inactive ZOLOFT 50 MG TAB 1 tablet by mouth daily ZOLOFT 50 MG TAB 673845 SERTRALINE HCL Inactive CEFTIN 500 MG TAB 1 tablet by mouth twice daily for 7 days 07/24 CEFTIN 500 MG TAB 598326 CEFUROXIME AXETIL Inactive NITROFURANTOIN MACROCRYSTAL 100 MG CAPS 1 capsule PO bid x 7 days NITROFURANTOIN MACROCRYSTAL 100 MG CAPS 3254204 NITROFURANTOIN MACROCRYSTAL Inactive IBUPROFEN 800 MG TABS 1 tab every 8 hours as needed for pain 2013 IBUPROFEN 800 MG TABS 686311 IBUPROFEN Inactive COLACE 100 MG CAP 1 po BID PRN Constipation COLACE 100 MG CAP 5254452 DOCUSATE SODIUM Inactive MELOXICAM 15 MG TABS 1 po qd PRN Knee Pain MELOXICAM 15 MG TABS 267422 MELOXICAM Inactive LEVEMIR FLEXPEN 100 UNIT/ML SOLN 40 units SC at bedtime LEVEMIR FLEXPEN 100 UNIT/ML SOLN INSULIN DETEMIR Inactive GENTAMICIN SULFATE 0.1 % EXT OINT Apply to open sores once a day. GENTAMICIN SULFATE 0.1 % EXT OINT 514940 GENTAMICIN SULFATE Inactive EMBRACE BLOOD GLUCOSE TEST STRP Test blood sugars 4 times daily and PRN 08/05 EMBRACE BLOOD GLUCOSE TEST STRP GLUCOSE BLOOD Inactive LEVEMIR FLEXTOUCH 100 UNIT/ML SC SOPN 35 units SC at 12-1pm, 35 units 12-1am LEVEMIR FLEXTOUCH 100 UNIT/ML SC SOPN INSULIN DETEMIR Inactive CORTISPORIN 3.5-21433-7 SOLN 4gtts in affected ear QID x 7 days CORTISPORIN 3.5-57115-6 SOLN 884144 ANHIRFHH-UBRPXCXGE-OT Inactive ACYCLOVIR 400 MG TABS 1 po qd ACYCLOVIR 400 MG TABS 415248 ACYCLOVIR Inactive AZITHROMYCIN 250 MG TABS take 2 po day 1 then take1 po days 2-5 AZITHROMYCIN 250 MG TABS 0268550 AZITHROMYCIN Inactive AZITHROMYCIN 250 MG TABS 2 po qd x 1 day, then 1 po qd x 4 days AZITHROMYCIN 250 MG TABS 1810073 AZITHROMYCIN Inactive ACYCLOVIR 400 MG TABS 1 [...] twice daily BACTRIM DS 800-160 MG TAB 344535 TRIMETHOPRIM-SULFAMETHOXAZOLE Inactive Advance Directives Directive Description Start [...] HGBA1C - Chemistry sodium, serum 134 mmol/L 617-892 0805/03/16 carbon dioxide, venous blood 34.5 mmol/L 21.0-32.0 potassium, serum 4.6 mmol/L 3.5-5.2 chloride, serum 93 mmol/L 98-107 blood glucose 408 mg/dL 65-110 urea nitrogen, blood 3 mg/dL 7-18 creatinine, serum 0.58 mg/dL 0.55-1.30 alanine aminotransferase (SGPT), serum 11 U/L 12-78 aspartate aminotransferase (SGOT), serum 8 U/L 15-37 calcium, serum 9.2 mg/dL 8.5-10.1 bilirubin, serum, total 0.30 mg/dL 0.00-1.00 cholesterol, serum 195 mg/dL 421-666 1683/03/16 triglyceride, serum, fasting 138 mg/dL 30-200 HDL [...] Panel - Chemistry sodium, serum 130 mmol/L 487-429 4915/10/12 carbon dioxide, venous blood 28.1 mmol/L 21.0-32.0 potassium, serum 3.9 mmol/L 3.5-5.2 chloride, serum 91 mmol/L 98-107 blood glucose 547 mg/dL 65-110 urea nitrogen, blood 3 mg/dL 7-18 creatinine, serum 0.78 mg/dL 0.55-1.30 alanine aminotransferase (SGPT), serum 11 U/L 12-78 aspartate aminotransferase (SGOT), serum 7 U/L 15-37 calcium, serum 8.8 mg/dL 8.5-10.1 bilirubin, serum, total 0.30 mg/dL 0.00-1.00 cholesterol, serum 221 mg/dL 121-998 4566/10/12 triglyceride, serum, fasting 590 mg/dL 30-200 HDL [...] Panel - Chemistry sodium, serum 133 mmol/L 386-680 1935/06/03 carbon dioxide, venous blood 33.4 mmol/L 21.0-32.0 [...] pH, urine, semiquantitative 5.5 5.0-8.5 Lab Report: [facility] [place] - Chemistry human chorionic gonadotropin, urine, qualitative [...] mg/dL Encounters Code Encounter Date Provider Facility CPT-15197 Level 3 Est. Patient 13:22:[address] [facility] CPT-40810 Level 4 Est. Patient 16:02:22 CDT Ang Markham MD [facility] CPT-33642 Level 3 Est. [facility] 16:21:[facility] Est. Patient 17:02:[address] [facility] CPT-32661 Level 3 Est. Patient 14:46:22 CDT Da Romero [facility] CPT-82591 Level 4 Est. Patient 13:55:20 CDT Ang Markham MD [facility] CPT-00475 Level 4 Est. Patient 16:10:[address] [facility] [place] CPT-63001 Level 3 Est. Patient 13:51:24 CDT Ang Markham MD [facility] CPT-59150 Level 3 Est. Patient 18:42:[address] [facility] CPT-35177 Level 5 Est. Patient 14:40:[address] [facility] [place] CPT-05495 Level 4 Est. Patient 14:36:17 CDT Ang Markham MD [facility] CPT-40242 Level 3 Est. Patient 11:13:47 NURSING COORDINATOR Ang Markham MD [facility] CPT-81699 Level 3 Est. Patient 11:59:20 NURSING COORDINATOR Gloria Dunbar [facility] CPT-25624 Level 3 Est. Patient 17:32:37 NURSING COORDINATOR Gloria Dunbar [facility] CPT-07708 Level 4 Est. Patient 16:39:07 CDT Ang Markham MD [facility] CPT-43060 Level 3 Est. Patient 16:35:50 CDT Ang Markham MD [facility] CPT-73602 Level 4 Est. Patient 13:53:06 NURSING COORDINATOR Ang Markham MD [facility] CPT-08230 Level 3 Est. Patient 08:58:08 NURSING COORDINATOR Ang Markham MD [facility] CPT-57213 Level 3 Est. Patient 18:48:29 CDT Anthony Whitfield [facility] CPT-02466 Level 3 Est. Patient 12:16:59 CDT Gabriel Hunt DO [facility] CPT-82222 Level 3 Est. Patient 18:57:15 CDT Anthony Whitfield [facility] CPT-35575 Level 3 Est. Patient 13:59:22 NURSING COORDINATOR Ang Markham MD [facility] CPT-84873 Level 4 Est. Patient 10:36:08 NURSING COORDINATOR Ang Markham MD [facility] CPT-61783 Level 3 Est. Patient 16:27:02 CDT Eri Borges MD PhD [facility] CPT-21273 Level 3 Est. Patient 10:36:43 CDT Octaviano Dempsey [facility] CPT-31221 Level 4 New Patient 08:58:06 CDT Ang Markham MD [facility] Procedures Code Procedure Name Date Entry Date Standard Description CPT-65849 Lipid - LAB USE ONLY 15:28:39 CDT CPT-28961 CMP - LAB USE ONLY 15:28:39 CDT CPT-37524 Venipuncture Draw Fee 15:28:39 CDT CPT-45796 Abd compl w upright - XRAY USE ONLY 14:09:39 CDT 02/28 CPT-23332 Venipuncture Draw Fee 12:25:15 CDT CPT-60058 Knee 3V 16:48:40 CDT CPT-OV Office Visit 16:27:13 CDT CPT-OV Office Visit 16:21:19 CDT CPT-12818 Sono pelvis non OB uterus ovaries cervix 09:37:28 CDT
[2018-12-22] MEDS ORDERED: RX-HYDROCODONE/APAP 5/325 MG #4 TAB PK PO ONE (01:36)
--- OUTSIDE RECORDS SUMMARY | 2018-12-22 01:36 | XMS REPORT | Clinical Summary ---
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 ICD-V58.67 Nathan Markham MD Abdominal pain ICD-789.00 Nathan Markham MD Hematochezia ICD-578.1 Nathan Markham MD Nausea ICD-787.02 Nathan Markham MD 06/26 Otitis externa, acute, left ICD-380.12 Nathan Markham MD Medication List Medication Instructions Start Date Stop Date Generic Name NDC Status Provider Patient Instruction LEVAQUIN 500 MG TABS 1 daily for infection LEVOFLOXACIN 55319580796 Active Shreya Caroline STAFF MINE [employer]ARFARE OFFICER Active GEMFIBROZIL 600 MG TABS 1 po BID GEMFIBROZIL 73392875609 Active Ang Markham MD Active CORTISPORIN 3.5-63069-0 SOLN 4gtts in affected ear QID x 7 days [id number] 31710766322 No Longer Active Ang Markham MD Active TRESIBA FLEXTOUCH 200 UNIT/ML SC SOPN Take 70 units daily at mid-night to 1 am. INSULIN DEGLUDEC 63330664667 Active Celestine PEARCE Active LEVEMIR FLEXTOUCH 100 UNIT/ML SC SOPN 35 units SC at 12-1pm, 35 units 12-1am INSULIN DETEMIR 52045779124 No Longer Active Celestine PEARCE Active REGLAN 10 MG TAB 0.5 po TID 30min prior to meals METOCLOPRAMIDE HCL 53003485102 Active Ang Markham MD Active ZANTAC 150 MG TAB 1 po BID RANITIDINE HCL 72662877504 Active Ang Markham MD Active DOXEPIN HCL 10 MG CAP 1 tablet nightly for the itch DOXEPIN HCL 39727604397 Active Ang Markham MD Active COLACE 100 MG CAP 1 po daily DOCUSATE SODIUM 39824265055 Active Gabriel Hunt DO Active NOVOLOG FLEXPEN 100 UNIT/ML SOPN Take 20 units TID with meals, plus 2u/50 for blood sugars above 150. Ratio vs. Carbs INSULIN ASPART 18372399183 Active Gabriel Hunt DO Active BD PEN NEEDLE DINESH U/F 32G X 4 MM MISC 5 a day INSULIN PEN NEEDLE 15525725148 Active Celestine PEARCE Active EMBRACE BLOOD GLUCOSE TEST STRP Test blood sugars 4 times daily and PRN 08/05 GLUCOSE BLOOD 94459280551 No Longer Active Celestine Sierraglari ACADEMIC COMPUTING DIRECTOR Active TRUEPLUS LANCETS 30G MISC 4 a day LANCETS 00555155632 Active Celestine Hoganari ACADEMIC COMPUTING DIRECTOR Active TRUETEST TEST STRP check blood sugars 4x/day GLUCOSE BLOOD 28332834168 Active Celestine Sierraglari ACADEMIC COMPUTING DIRECTOR Active TRUERESULT BLOOD GLUCOSE W/DEVICE KIT check blood sugars 4x a day BLOOD GLUCOSE MONITORING SUPPL 90269628575 Active Celestine Sierraglari ACADEMIC COMPUTING DIRECTOR Active LISINOPRIL 5 MG TABS 1 po qd LISINOPRIL 48466581989 Active Ang Markham MD Active PAXIL 20 MG TAB 1 tablet by mouth daily PAROXETINE HCL 29062458076 Active Ang Markham MD Active GENTAMICIN SULFATE 0.1 % EXT OINT Apply to open sores once a day. GENTAMICIN SULFATE 08484406892 No Longer Active Ang Markham MD Active ZOLPIDEM TARTRATE 10 MG TABS 1 po qHS PRN Insomnia ZOLPIDEM TARTRATE 90683933682 Active Ang Markham MD Active BACTRIM DS 800-160 MG TAB 1 tab by mouth twice daily TRIMETHOPRIM-SULFAMETHOXAZOLE 93933009065 No Longer Active Gloriajuliette Goveaharlan STAFF MINE WARFARE OFFICER Active LEVEMIR FLEXPEN 100 UNIT/ML SOLN 40 units SC at bedtime INSULIN DETEMIR No Longer Active Susan Adan RMA Active INSUPEN ULTRAFIN 31G X 6 MM MISC Use with insulin qid. DX: E11.9 INSULIN PEN NEEDLE 64824357994 Active Ang Markham MD Active ZOLOFT 100 MG TAB 1 po qHS SERTRALINE HCL 21209270072 No Longer Active Ang Markham MD Active MELOXICAM 15 MG TABS 1 po qd PRN Knee Pain MELOXICAM 89064118489 No Longer Active Ang Markham MD Active LIPITOR 40 MG TAB 1 po qHS ATORVASTATIN CALCIUM 18080627448 Active Ang Marhkam MD Active METFORMIN HCL 1000 MG TABS 1 tablet by mouth twice daily METFORMIN HCL 26051563569 Active Ang Markham MD Active CYCLOBENZAPRINE HCL 5 MG TABS 1 po qHS PRN Muscle pain CYCLOBENZAPRINE HCL 40288578969 Active Ang Markham MD Active COLACE 100 MG CAP 1 po BID PRN Constipation DOCUSATE SODIUM 32753178910 No Longer Active Ang Markham MD Active HYDROXYZINE HCL 25 MG TAB 1 TID PRN nerves HYDROXYZINE HCL 05190541524 Active Ang Markham MD Active IBUPROFEN 800 MG TABS 1 tab every 8 hours as needed for pain 2013 IBUPROFEN 77471764341 No Longer Active Ang Markham MD Active NITROFURANTOIN MACROCRYSTAL 100 MG CAPS 1 capsule PO bid x 7 days NITROFURANTOIN MACROCRYSTAL 09345039581 No Longer Active Ang Markham MD Active DIFLUCAN 150 MG TAB 1 qODay x 2 doses FLUCONAZOLE 04281795461 No Longer Active Jillpiedad Nguyenl DAYO Active CEFTIN 500 MG TAB 1 tablet by mouth twice daily for 7 days 07/24 CEFUROXIME AXETIL 57531739727 No Longer Active Anthony CARBONE Active ZOLOFT 50 MG TAB 1 tablet by mouth daily SERTRALINE HCL 39433781353 No Longer Active Anthony CARBONE Active ANUSOL-HC 2.5 % CREAM apply as needed HYDROCORTISONE (RECTAL) 27031856132 No Longer Active Anthony CARBONE Active COLACE 100 MG CAP 1 tab PO BID DOCUSATE SODIUM 57754419933 No Longer Active Anthony CARBONE Active TRINESSA (28) 0.18/0.215/0.25 MG-35 MCG TABS 1 po qd as directed NORGESTIM-ETH ESTRAD TRIPHASIC 61214383924 No Longer Active Anthoyn CARBONE Active [facility] MELATONIN 5 MG TABS 1-2 po qHS PRN Insomnia MELATONIN 81434181731 No Longer Active Anthony CARBONE Active ACYCLOVIR 400 MG TABS ACYCLOVIR 21034281340 No Longer Active Ang Markham MD Active HYDROXYZINE HCL 25 MG TABS 1 tab PO tid PRN itching HYDROXYZINE HCL 81331270145 No Longer Active Ang Markham MD Active DIFLUCAN 150 MG TAB 1 qODay x 2 doses FLUCONAZOLE 64419338963 No Longer Active Jillina Frazell STAFF MINE [employer]FARE OFFICER Active ACYCLOVIR 400 MG TABS 1 pill twice daily ACYCLOVIR 94830502906 No Longer Active Jillina Frazell STAFF MINE WARFARE OFFICER Active AZITHROMYCIN 250 MG TABS 2 po qd x 1 day, then 1 po qd x 4 days AZITHROMYCIN 91295197713 No Longer Active Eri Borges MD PhD Active AZITHROMYCIN 250 MG TABS take 2 po day 1 then take1 po days 2-5 AZITHROMYCIN 96009955491 No Longer Active Octaviano CARBONE Active ACYCLOVIR 400 MG TABS 1 po qd ACYCLOVIR 60621657070 No Longer Active Ang Markham MD Active PROZAC 40 MG CAPS 1 cap by mouth at bedtime FLUOXETINE HCL 31567286858 No Longer Active Ang Markham MD Active HYDROXYZINE HCL 25 MG TABS 1 tab PO tid PRN itching HYDROXYZINE HCL 25 MG TABS 833926 HYDROXYZINE HCL Inactive [facility] MELATONIN 5 MG TABS 1-2 po qHS PRN Insomnia [facility] MELATONIN 5 MG TABS 375522 MELATONIN Inactive TRINESSA (28) 0.18/0.215/0.25 MG-35 MCG TABS 1 po qd as directed TRINESSA (28) 0.18/0.215/0.25 MG-35 MCG TABS 647099 NORGESTIM-ETH ESTRAD TRIPHASIC Inactive COLACE 100 MG CAP 1 tab PO BID COLACE 100 MG CAP 6848558 DOCUSATE SODIUM Inactive ANUSOL-HC 2.5 % CREAM apply as needed ANUSOL-HC 2.5 % CREAM 351918 HYDROCORTISONE (RECTAL) Inactive ZOLOFT 50 MG TAB 1 tablet by mouth daily ZOLOFT 50 MG TAB 005031 SERTRALINE HCL Inactive CEFTIN 500 MG TAB 1 tablet by mouth twice daily for 7 days 07/24 CEFTIN 500 MG TAB 657044 CEFUROXIME AXETIL Inactive NITROFURANTOIN MACROCRYSTAL 100 MG CAPS 1 capsule PO bid x 7 days NITROFURANTOIN MACROCRYSTAL 100 MG CAPS 4144114 NITROFURANTOIN MACROCRYSTAL Inactive IBUPROFEN 800 MG TABS 1 tab every 8 hours as needed for pain 2013 IBUPROFEN 800 MG TABS 575571 IBUPROFEN Inactive COLACE 100 MG CAP 1 po BID PRN Constipation COLACE 100 MG CAP 8383310 DOCUSATE SODIUM Inactive MELOXICAM 15 MG TABS 1 po qd PRN Knee Pain MELOXICAM 15 MG TABS 852131 MELOXICAM Inactive LEVEMIR FLEXPEN 100 UNIT/ML SOLN 40 units SC at bedtime LEVEMIR FLEXPEN 100 UNIT/ML SOLN INSULIN DETEMIR Inactive GENTAMICIN SULFATE 0.1 % EXT OINT Apply to open sores once a day. GENTAMICIN SULFATE 0.1 % EXT OINT 829455 GENTAMICIN SULFATE Inactive EMBRACE BLOOD GLUCOSE TEST STRP Test blood sugars 4 times daily and PRN 08/05 EMBRACE BLOOD GLUCOSE TEST STRP GLUCOSE BLOOD Inactive LEVEMIR FLEXTOUCH 100 UNIT/ML SC SOPN 35 units SC at 12-1pm, 35 units 12-1am LEVEMIR FLEXTOUCH 100 UNIT/ML SC SOPN INSULIN DETEMIR Inactive CORTISPORIN 3.5-36956-2 SOLN 4gtts in affected ear QID x 7 days CORTISPORIN 3.5-50752-2 [facility] 587922 [id number] Inactive ACYCLOVIR 400 MG TABS 1 po qd ACYCLOVIR 400 MG TABS 19720928 ACYCLOVIR Inactive AZITHROMYCIN 250 MG TABS take 2 po day 1 then take1 po days 2-5 AZITHROMYCIN 250 MG TABS 1222766 AZITHROMYCIN Inactive AZITHROMYCIN 250 MG TABS 2 po qd x 1 day, then 1 po qd x 4 days AZITHROMYCIN 250 MG TABS 0237639 AZITHROMYCIN Inactive ACYCLOVIR 400 MG TABS 1 pill twice daily ACYCLOVIR 400 MG TABS 19720928 ACYCLOVIR Inactive DIFLUCAN 150 MG TAB 1 qODay x 2 doses DIFLUCAN 150 MG TAB 19760606 FLUCONAZOLE Inactive ACYCLOVIR 400 MG TABS ACYCLOVIR 400 MG TABS 19720928 ACYCLOVIR Inactive DIFLUCAN 150 MG TAB 1 qODay x 2 doses DIFLUCAN 150 MG TAB 925816 FLUCONAZOLE Inactive BACTRIM DS 800-160 MG TAB 1 tab by mouth twice daily BACTRIM DS 800-160 MG TAB 400466 TRIMETHOPRIM-SULFAMETHOXAZOLE Inactive Advance Directives Directive Description Start [...] Panel - Chemistry sodium, serum 130 mmol/L 456-567 3224/10/12 carbon dioxide, venous blood 28.1 mmol/L 21.0-32.0 potassium, serum 3.9 mmol/L 3.5-5.2 chloride, serum 91 mmol/L 98-107 blood glucose 547 mg/dL 65-110 urea nitrogen, blood 3 mg/dL 7-18 creatinine, serum 0.78 mg/dL 0.55-1.30 alanine aminotransferase (SGPT), serum 11 U/L 12-78 aspartate aminotransferase (SGOT), serum 7 U/L 15-37 calcium, serum 8.8 mg/dL 8.5-10.1 bilirubin, serum, total 0.30 mg/dL 0.00-1.00 cholesterol, serum 221 mg/dL 074-963 5833/10/12 triglyceride, serum, fasting 590 mg/dL 30-200 HDL cholesterol, serum 45 mg/dL 32-96 LDL cholesterol, serum 58 mg/dL 0-130 Lab Report: HGBA1C - Chemistry hemoglobin A1C, blood, as % of total hemoglobin 11.4 % 4.3-6.0 Lab Report: UADIP W/MICRO, AUTO, CBC W/DIFF, Comp. Metabolic Panel - Chemistry RBC, urine, dipstick Negative Negative sodium, serum 133 mmol/L 217-372 7385/06/03 carbon dioxide, venous blood 33.4 mmol/L 21.0-32.0 [...] nitrite, urine, semiquantitative Negative Negative Lab Report: [facility] - Chemistry human chorionic gonadotropin, urine, qualitative [...] mg/dL Encounters Code Encounter Date Provider Facility CPT-28169 Level 3 Est. Patient 15:02:19 CDT Shreya Velazquez [facility] CPT-01335 Level 3 Est. Patient 13:22:25 CDT Gabriel Hunt [facility] CPT-85814 Level 4 Est. Patient 16:02:22 CDT Ang Markham MD [facility] CPT-75335 Level 3 Est. [facility] Level 3 Est. Patient 17:02:56 CDT Gabriel Hunt [facility] CPT-46090 Level 3 Est. Patient 14:46:22 CDT Da Romero [facility] CPT-51402 Level 4 Est. Patient 13:55:20 CDT Ang Markham MD [facility] CPT-48350 Level 4 Est. Patient 16:10:09 CDT Celestine Huerta [facility] CPT-45958 Level 3 Est. Patient 13:51:24 CDT Ang Markham MD [facility] CPT-65055 Level 3 Est. Patient 18:42:15 CDT Gabriel Hunt [facility] CPT-38359 Level 5 Est. [facility] 14:40:[facility] CPT-11800 Level 4 Est. Patient 14:36:17 CDT Ang Markham MD [facility] CPT-56007 Level 3 Est. 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 Patient 11:59:20 STATIONARY ENGINEER REFRIGERATION Gloria Dunbar [facility] CPT-87070 Level 3 Est. Patient 17:32:37 STATIONARY ENGINEER REFRIGERATION Gloria Dunbar [facility] CPT-06946 Level 4 Est. Patient 16:39:07 CDT Ang Markham MD [facility] CPT-71560 Level 3 Est. Patient 16:35:50 CDT Ang Markham MD [facility] CPT-88930 Level 4 Est. Patient 13:53:06 STATIONARY ENGINEER REFRIGERATION Ang Markham MD [facility] CPT-74160 Level 3 Est. Patient 08:58:08 STATIONARY ENGINEER REFRIGERATION Ang Markham MD [facility] CPT-42201 Level 3 Est. Patient 18:48:29 CDT Anthony Whitfield [facility] CPT-55236 Level 3 Est. Patient 12:16:59 CDT Gabriel Hunt DO [facility] CPT-42417 Level 3 Est. Patient 18:57:15 CDT Anthony Whitfield [facility] CPT-55560 Level 3 Est. Patient 13:59:22 STATIONARY ENGINEER REFRIGERATION Ang Markham MD [facility] CPT-63746 Level 4 Est. Patient 10:36:08 STATIONARY ENGINEER REFRIGERATION Ang Markham MD [facility] CPT-88737 Level 3 Est. Patient 16:27:02 CDT Eri Borges MD PhD [facility] CPT-13785 Level 3 Est. Patient 10:36:43 CDT Octaviano Dempsey [facility] CPT-14284 Level 4 New Patient 08:58:06 CDT Ang Markham MD [facility] Procedures Code Procedure Name Date Entry Date Standard Description CPT-92198 LS spine comp w obliques - XRAY USE ONLY 15:34:48 CDT CPT-68786 Lipid - LAB USE ONLY 15:28:39 CDT CPT-85641 CMP - LAB USE ONLY 15:28:39 CDT CPT-55888 Venipuncture Draw Fee 15:28:39 CDT CPT-60138 Abd compl w upright - XRAY USE ONLY 14:09:39 CDT 02/28 CPT-66215 Venipuncture Draw Fee 12:25:15 CDT CPT-76063 Knee 3V 16:48:40 CDT CPT-OV Office Visit 16:27:13 CDT CPT-OV Office Visit 16:21:19 CDT CPT-07778 Sono pelvis non OB uterus ovaries cervix 09:37:28 CDT
--- OUTSIDE RECORDS SUMMARY | 2018-12-22 01:37 | XMS REPORT | Clinical Summary ---
Author Author Admin, E Organization [facility] Address Unknown Phone Unavailable Allergies, Adverse Reactions, [...] I [juvenile type], not stated as uncontrolled shelter use 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 V58.67 Resolved Ang [...] Resolved Ang Markham MD Acute [facility] ear shelter use 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 V58.67 Active Celestine [...] crepitus, knee ICD-719.66 Inactive Ang Markham MD Diabetes mellitus ICD-250.00 Nathan Markham MD Cystitis, acute ICD-595.0 Inactive Ang Markham MD UTI ICD-599.0 Inactive Ang Markham MD Insomnia ICD-780.52 Nathan Markham MD Diabetes mellitus ICD-250.00 Inactive Ang Markham MD Vaginal discharge ICD-623.5 Inactive Ang Markham MD Amenorrhea ICD-626.0 Nathan Markham MD Cellulitis, ankle, left ICD-682.6 Nathan Markham MD Diabetes mellitus, type I, with hypoglycemia ICD-250.81 Nathan Markham MD shelter use 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 ICD-V58.67 Nathan Markham MD Abdominal pain ICD-789.00 Nathan Markham MD Hematochezia ICD-578.1 Nathan Markham MD Nausea ICD-787.02 Nathan Markham MD 06/26 Otitis externa, acute, left ICD-380.12 Nathan Markham MD Knee pain, bilateral ICD-719.46 Nathan Markham MD Medication List Medication Instructions Start Date Stop Date Generic Name NDC Status Provider Patient Instruction GEMFIBROZIL 600 MG TABS 1 po BID GEMFIBROZIL 62341066781 Active Ang Markham MD Active CORTISPORIN 3.5-97603-0 SOLN 4gtts in affected ear QID x 7 days [id number]-[id number]-LJ 29351354358 No Longer Active Ang Markham MD Active TRESIBA FLEXTOUCH 200 UNIT/ML SC SOPN Take 70 units daily at mid-night to 1 am. INSULIN DEGLUDEC 81314897333 Active Celestine Sierraglari ESCROW ASSISTANT Active LEVEMIR FLEXTOUCH 100 UNIT/ML SC SOPN 35 units SC at 12-1pm, 35 units 12-1am INSULIN DETEMIR 28569800840 No Longer Active Celestine PEARCE Active REGLAN 10 MG TAB 0.5 po TID 30min prior to meals METOCLOPRAMIDE HCL 24338680743 Active Ang Markham MD Active ZANTAC 150 MG TAB 1 po BID RANITIDINE HCL 71638261055 Active Ang Markham MD Active DOXEPIN HCL 10 MG CAP 1 tablet nightly for the itch DOXEPIN HCL 97559032814 Active Ang Markham MD Active COLACE 100 MG CAP 1 po daily DOCUSATE SODIUM 70071456849 Active Gabriel Hunt DO Active NOVOLOG FLEXPEN 100 UNIT/ML SOPN Take 20 units TID with meals, plus 2u/50 for blood sugars above 150. Ratio vs. Carbs INSULIN ASPART 01332814856 Active Gabriel Hunt DO Active BD PEN NEEDLE DINESH U/F 32G X 4 MM MISC 5 a day INSULIN PEN NEEDLE 62381784299 Active Malstepheneh Ziglari ESCROW ASSISTANT Active EMBRACE BLOOD GLUCOSE TEST STRP Test blood sugars 4 times daily and PRN 08/05 GLUCOSE BLOOD 39576964837 No Longer Active Malstepheneh Ziglari ESCROW ASSISTANT Active TRUEPLUS LANCETS 30G MISC 4 a day LANCETS 36395991730 Active Maliheh Ziglari ESCROW ASSISTANT Active TRUETEST TEST STRP check blood sugars 4x/day GLUCOSE BLOOD 87158132872 Active Maliheh Ziglari ESCROW ASSISTANT Active TRUERESULT BLOOD GLUCOSE W/DEVICE KIT check blood sugars 4x a day BLOOD GLUCOSE MONITORING SUPPL 77834340742 Active Celestine PEARCE Active LISINOPRIL 5 MG TABS 1 po qd LISINOPRIL 32570385678 Active Ang Markham MD Active PAXIL 20 MG TAB 1 tablet by mouth daily PAROXETINE HCL 74822817246 Active Ang Markham MD Active GENTAMICIN SULFATE 0.1 % EXT OINT Apply to open sores once a day. GENTAMICIN SULFATE 65834075335 No Longer Active Ang Markham MD Active ZOLPIDEM TARTRATE 10 MG TABS 1 po qHS PRN Insomnia ZOLPIDEM TARTRATE 76615199360 Active Ang Markham MD Active BACTRIM DS 800-160 MG TAB 1 tab by mouth twice daily TRIMETHOPRIM-SULFAMETHOXAZOLE 63871588460 No Longer Active Gloria Dunbar TREE SPECIALIST Active LEVEMIR FLEXPEN 100 UNIT/ML SOLN 40 units SC at bedtime INSULIN DETEMIR No Longer Active Susan Arellano RMA Active INSUPEN ULTRAFIN 31G X 6 MM MISC Use with insulin qid. DX: E11.9 INSULIN PEN NEEDLE 51837109086 Active Ang Markham MD Active ZOLOFT 100 MG TAB 1 po qHS SERTRALINE HCL 90329725436 No Longer Active Ang Markham MD Active MELOXICAM 15 MG TABS 1 po qd PRN Knee Pain MELOXICAM 09710523916 No Longer Active Ang Markham MD Active LIPITOR 40 MG TAB 1 po qHS ATORVASTATIN CALCIUM 85650153268 Active Ang Markham MD Active METFORMIN HCL 1000 MG TABS 1 tablet by mouth twice daily METFORMIN HCL 69675257377 Active Ang Markham MD Active CYCLOBENZAPRINE HCL 5 MG TABS 1 po qHS PRN Muscle pain CYCLOBENZAPRINE HCL 46027531423 Active Ang Markham MD Active COLACE 100 MG CAP 1 po BID PRN Constipation DOCUSATE SODIUM 56925877402 No Longer Active Ang Markham MD Active HYDROXYZINE HCL 25 MG TAB 1 TID PRN nerves HYDROXYZINE HCL 50802866955 Active Ang Markham MD Active IBUPROFEN 800 MG TABS 1 tab every 8 hours as needed for pain 2013 IBUPROFEN 62662566928 No Longer Active Ang Markham MD Active NITROFURANTOIN MACROCRYSTAL 100 MG CAPS 1 capsule PO bid x 7 days NITROFURANTOIN MACROCRYSTAL 24691218098 No Longer Active Ang Markham MD Active DIFLUCAN 150 MG TAB 1 qODay x 2 doses FLUCONAZOLE 01730877536 No Longer Active Jillpiedad Romero APRN Active CEFTIN 500 MG TAB 1 tablet by mouth twice daily for 7 days 07/24 CEFUROXIME AXETIL 41057552330 No Longer Active Anthony CARBONE Active ZOLOFT 50 MG TAB 1 tablet by mouth daily SERTRALINE HCL 40867512871 No Longer Active Anthony CARBONE Active ANUSOL-HC 2.5 % CREAM apply as needed HYDROCORTISONE (RECTAL) 05107227872 No Longer Active Anthony CARBONE Active COLACE 100 MG CAP 1 tab PO BID DOCUSATE SODIUM 61104481620 No Longer Active Anthony CARBONE Active TRINESSA (28) 0.18/0.215/0.25 MG-35 MCG TABS 1 po qd as directed NORGESTIM-ETH ESTRAD TRIPHASIC 37149862189 No Longer Active Anthony CARBONE Active [facility] MELATONIN 5 MG TABS 1-2 po qHS PRN Insomnia MELATONIN 06758274519 No Longer Active Anthony CARBONE Active ACYCLOVIR 400 MG TABS ACYCLOVIR 50568427182 No Longer Active Ang Markham MD Active HYDROXYZINE HCL 25 MG TABS 1 tab PO tid PRN itching HYDROXYZINE HCL 63840804401 No Longer Active Ang Markham MD Active DIFLUCAN 150 MG TAB 1 qODay x 2 doses FLUCONAZOLE 93305903095 No Longer Active Da Romero APRN Active ACYCLOVIR 400 MG TABS 1 pill twice daily ACYCLOVIR 29184575621 No Longer Active Da Romero APRN Active AZITHROMYCIN 250 MG TABS 2 po qd x 1 day, then 1 po qd x 4 days AZITHROMYCIN 44216903686 No Longer Active Eri Borges MD PhD Active AZITHROMYCIN 250 MG TABS take 2 po day 1 then take1 po days 2-5 AZITHROMYCIN 91546765817 No Longer Active Octaviano CARBONE Active ACYCLOVIR 400 MG TABS 1 po qd ACYCLOVIR 23956482191 No Longer Active Ang Markham MD Active PROZAC 40 MG CAPS 1 cap by mouth at bedtime FLUOXETINE HCL 74223412593 No Longer Active Ang Markham MD Active HYDROXYZINE HCL 25 MG TABS 1 tab PO tid PRN itching HYDROXYZINE HCL 25 MG TABS 939378 HYDROXYZINE HCL Inactive [facility] MELATONIN 5 MG TABS 1-2 po qHS PRN Insomnia [facility] MELATONIN 5 MG TABS 406219 MELATONIN Inactive TRINESSA (28) 0.18/0.215/0.25 MG-35 MCG TABS 1 po qd as directed TRINESSA (28) 0.18/0.215/0.25 MG-35 MCG TABS 867695 NORGESTIM-ETH ESTRAD TRIPHASIC Inactive COLACE 100 MG CAP 1 tab PO BID COLACE 100 MG CAP 0854775 DOCUSATE SODIUM Inactive ANUSOL-HC 2.5 % CREAM apply as needed ANUSOL-HC 2.5 % CREAM 966432 HYDROCORTISONE (RECTAL) Inactive ZOLOFT 50 MG TAB 1 tablet by mouth daily ZOLOFT 50 MG TAB 247982 SERTRALINE HCL Inactive CEFTIN 500 MG TAB 1 tablet by mouth twice daily for 7 days 07/24 CEFTIN 500 MG TAB 121263 CEFUROXIME AXETIL Inactive NITROFURANTOIN MACROCRYSTAL 100 MG CAPS 1 capsule PO bid x 7 days NITROFURANTOIN MACROCRYSTAL 100 MG CAPS 7722360 NITROFURANTOIN MACROCRYSTAL Inactive IBUPROFEN 800 MG TABS 1 tab every 8 hours as needed for pain 2013 IBUPROFEN 800 MG TABS 182262 IBUPROFEN Inactive COLACE 100 MG CAP 1 po BID PRN Constipation COLACE 100 MG CAP 1317656 DOCUSATE SODIUM Inactive MELOXICAM 15 MG TABS 1 po qd PRN Knee Pain MELOXICAM 15 MG TABS 142876 MELOXICAM Inactive LEVEMIR FLEXPEN 100 UNIT/ML SOLN 40 units SC at bedtime LEVEMIR FLEXPEN 100 UNIT/ML SOLN INSULIN DETEMIR Inactive GENTAMICIN SULFATE 0.1 % EXT OINT Apply to open sores once a day. GENTAMICIN SULFATE 0.1 % EXT OINT 332480 GENTAMICIN SULFATE Inactive EMBRACE BLOOD GLUCOSE TEST STRP Test blood sugars 4 times daily and PRN 08/05 EMBRACE BLOOD GLUCOSE TEST STRP GLUCOSE BLOOD Inactive LEVEMIR FLEXTOUCH 100 UNIT/ML SC SOPN 35 units SC at 12-1pm, 35 units 12-1am LEVEMIR FLEXTOUCH 100 UNIT/ML SC SOPN INSULIN DETEMIR Inactive CORTISPORIN 3.5-08569-8 SOLN 4gtts in affected ear QID x 7 days CORTISPORIN 3.5-80398-1 SOLN 146867 [id number] Inactive ACYCLOVIR 400 MG TABS 1 po qd ACYCLOVIR 400 MG TABS 790295 ACYCLOVIR Inactive AZITHROMYCIN 250 MG TABS take 2 po day 1 then take1 po days 2-5 AZITHROMYCIN 250 MG TABS 9186980 AZITHROMYCIN Inactive AZITHROMYCIN 250 MG TABS 2 po qd x 1 day, then 1 po qd x 4 days AZITHROMYCIN 250 MG TABS 7811572 AZITHROMYCIN Inactive ACYCLOVIR 400 MG TABS 1 [...] twice daily BACTRIM DS 800-160 MG TAB 661603 TRIMETHOPRIM-SULFAMETHOXAZOLE Inactive Advance Directives Directive Description Start [...] HGBA1C - Chemistry sodium, serum 134 mmol/L 171-826 7911/03/16 carbon dioxide, venous blood 34.5 mmol/L 21.0-32.0 potassium, serum 4.6 mmol/L 3.5-5.2 chloride, serum 93 mmol/L 98-107 blood glucose 408 mg/dL 65-110 urea nitrogen, blood 3 mg/dL 7-18 creatinine, serum 0.58 mg/dL 0.55-1.30 alanine aminotransferase (SGPT), serum 11 U/L 12-78 aspartate aminotransferase (SGOT), serum 8 U/L 15-37 calcium, serum 9.2 mg/dL 8.5-10.1 bilirubin, serum, total 0.30 mg/dL 0.00-1.00 cholesterol, serum 195 mg/dL 606-815 9764/03/16 triglyceride, serum, fasting 138 mg/dL 30-200 HDL [...] Panel - Chemistry sodium, serum 130 mmol/L 899-943 4661/10/12 carbon dioxide, venous blood 28.1 mmol/L 21.0-32.0 potassium, serum 3.9 mmol/L 3.5-5.2 chloride, serum 91 mmol/L 98-107 blood glucose 547 mg/dL 65-110 urea nitrogen, blood 3 mg/dL 7-18 creatinine, serum 0.78 mg/dL 0.55-1.30 alanine aminotransferase (SGPT), serum 11 U/L 12-78 aspartate aminotransferase (SGOT), serum 7 U/L 15-37 calcium, serum 8.8 mg/dL 8.5-10.1 bilirubin, serum, total 0.30 mg/dL 0.00-1.00 cholesterol, serum 221 mg/dL 412-266 4951/10/12 triglyceride, serum, fasting 590 mg/dL 30-200 HDL [...] Panel - Chemistry sodium, serum 133 mmol/L 359-418 2559/06/03 carbon dioxide, venous blood 33.4 mmol/L 21.0-32.0 [...] pH, urine, semiquantitative 5.5 5.0-8.5 Lab Report: [facility] [place] human [...] mg/dL Encounters Code Encounter Date Provider Facility CPT-36781 Level 3 Est. Patient 13:22:25 CDT Gabriel Hunt [facility] CPT-43660 Level 4 Est. Patient 16:02:22 CDT Ang Markham MD [facility] CPT-48270 Level 3 Est. [facility] 16:21:[facility] Est[facility] Patient 17:02:56 CDT Gabriel Hunt [facility] CPT-36511 Level 3 Est. Patient 14:46:22 CDT Da Romero [facility] CPT-83100 Level 4 Est. Patient 13:55:20 CDT Ang Markham MD [facility] CPT-72570 Level 4 Est. Patient 16:10:09 CDT Celestine Huerta [facility] CPT-83766 Level 3 Est. Patient 13:51:24 CDT Ang Markham MD [facility] CPT-89167 Level 3 Est. Patient 18:42:15 CDT Gabriel Hunt [facility] CPT-29782 Level 5 Est. Patient 14:40:14 CDT Celestine Huerta [facility] CPT-21279 Level 4 Est. Patient 14:36:17 CDT Ang Markham MD [facility] CPT-14934 Level 3 Est. Patient 11:13:47 STAMPING DIE TRY OUT WORKER Ang Markham MD [facility] CPT-48379 Level 3 Est. Patient 11:59:20 STAMPING DIE TRY OUT WORKER Gloria Dunbar [facility] CPT-22952 Level 3 Est. Patient 17:32:37 STAMPING DIE TRY OUT WORKER Gloria Dunbar [facility] CPT-79858 Level 4 Est. Patient 16:39:07 CDT Ang Markham MD [facility] CPT-76696 Level 3 Est. Patient 16:35:50 CDT Ang Markham MD [facility] CPT-20029 Level 4 Est. Patient 13:53:06 STAMPING DIE TRY OUT WORKER Ang Markham MD [facility] CPT-03079 Level 3 Est. Patient 08:58:08 STAMPING DIE TRY OUT WORKER Ang Markham MD [facility] CPT-93599 Level 3 Est. Patient 18:48:[address] [facility] CPT-94741 Level 3 Est. Patient 12:16:59 CDT Gabriel Hunt DO [facility] CPT-87205 Level 3 Est. Patient 18:57:[address] [facility] CPT-83439 Level 3 Est. Patient 13:59:22 STAMPING DIE TRY OUT WORKER Ang Markham MD [facility] CPT-20195 Level 4 Est. Patient 10:36:08 STAMPING DIE TRY OUT WORKER Ang Markham MD [facility] CPT-33307 Level 3 Est. Patient 16:27:02 CDT Eri Borges MD PhD [facility] CPT-40240 Level 3 Est. Patient 10:36:[address] [facility] CPT-68752 Level 4 New Patient 08:58:06 CDT Ang Markham MD [facility] Procedures Code Procedure Name Date Entry Date Standard Description CPT-43391 Lipid - LAB USE ONLY 15:28:39 CDT CPT-91953 CMP - LAB USE ONLY 15:28:39 CDT CPT-56748 Venipuncture Draw Fee 15:28:39 CDT CPT-56937 Abd compl w upright - XRAY USE ONLY 14:09:39 CDT 02/28 CPT-86040 Venipuncture Draw Fee 12:25:15 CDT CPT-99967 Knee 3V 16:48:40 CDT CPT-OV Office Visit 16:27:13 CDT CPT-OV Office Visit 16:21:19 CDT CPT-13808 Sono pelvis non OB uterus ovaries cervix 09:37:28 CDT
--- OUTSIDE RECORDS SUMMARY | 2018-12-22 01:37 | XMS REPORT | Clinical Summary ---
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 Ratio vs. Carbs INSULIN ASPART 73404910268 Active Gabriel Hunt DO Active BD PEN NEEDLE DINESH U/F 32G X 4 MM MISC 5 a day INSULIN PEN NEEDLE 20654987804 Active Maliheh Ziglari HOTEL RESERVATION AGENT Active LEVEMIR FLEXTOUCH 100 UNIT/ML SC SOPN 30 units SC at 12-1pm, 30 units 12-1am INSULIN DETEMIR 93818277105 Active Maliheh Ziglari HOTEL RESERVATION AGENT Active EMBRACE BLOOD GLUCOSE TEST STRP Test blood sugars 4 times daily and PRN 08/05 GLUCOSE BLOOD 72000831755 No Longer Active Maliheh Ziglari HOTEL RESERVATION AGENT Active TRUEPLUS LANCETS 30G MISC 4 a day LANCETS 25155355991 Active Maliheh Ziglari HOTEL RESERVATION AGENT Active TRUETEST TEST STRP check blood sugars 4x/day GLUCOSE BLOOD 32633098839 Active Maliheh Ziglari HOTEL RESERVATION AGENT Active TRUERESULT BLOOD GLUCOSE W/DEVICE KIT check blood sugars 4x a day BLOOD GLUCOSE MONITORING SUPPL 02830410718 Active Maliheh Ziglari HOTEL RESERVATION AGENT Active LISINOPRIL 5 MG TABS 1 po qd LISINOPRIL 62409883367 Active Ang Markham MD Active PAXIL 20 MG TAB 1 tablet by mouth daily PAROXETINE HCL 47044729933 Active Ang Markham MD Active GENTAMICIN SULFATE 0.1 % EXT OINT Apply to open sores once a day. GENTAMICIN SULFATE 72748286032 No Longer Active Ang Markham MD Active ZOLPIDEM TARTRATE 10 MG TABS 1 po qHS PRN Insomnia ZOLPIDEM TARTRATE 49961325135 Active Ang Markham MD Active BACTRIM DS 800-160 MG TAB 1 tab by mouth twice daily TRIMETHOPRIM-SULFAMETHOXAZOLE 52956539550 No Longer Active Gloria Dunbar PROPERTY MAN Active LEVEMIR FLEXPEN 100 UNIT/ML SOLN 40 units SC at bedtime INSULIN DETEMIR No Longer Active Susan Braggart RMA Active INSUPEN ULTRAFIN 31G X 6 MM MISC Use with insulin qid. DX: E11.9 INSULIN PEN NEEDLE 56455151249 Active Ang Markham MD Active ZOLOFT 100 MG TAB 1 po qHS SERTRALINE HCL 80912556913 No Longer Active Ang Markham MD Active MELOXICAM 15 MG TABS 1 po qd PRN Knee Pain MELOXICAM 36137039995 No Longer Active Ang Markham MD Active LIPITOR 40 MG TAB 1 po qHS ATORVASTATIN CALCIUM 44308940214 Active Ang Markham MD Active METFORMIN HCL 1000 MG TABS 1 tablet by mouth twice daily METFORMIN HCL 76807029370 Active Ang Markham MD Active CYCLOBENZAPRINE HCL 5 MG TABS 1 po qHS PRN Muscle pain CYCLOBENZAPRINE HCL 39014950435 Active Ang Markham MD Active COLACE 100 MG CAP 1 po BID PRN Constipation DOCUSATE SODIUM 22573925211 No Longer Active Ang Markham MD Active HYDROXYZINE HCL 25 MG TAB 1 TID PRN nerves HYDROXYZINE HCL 96414861847 Active Ang Markham MD Active IBUPROFEN 800 MG TABS 1 tab every 8 hours as needed for pain 2013 IBUPROFEN 08735840688 No Longer Active Ang Markham MD Active NITROFURANTOIN MACROCRYSTAL 100 MG CAPS 1 capsule PO bid x 7 days NITROFURANTOIN MACROCRYSTAL 42010459021 No Longer Active Ang Markham MD Active DIFLUCAN 150 MG TAB 1 qODay x 2 doses FLUCONAZOLE 68453856245 No Longer Active Da Romero APRN Active CEFTIN 500 MG TAB 1 tablet by mouth twice daily for 7 days 07/24 CEFUROXIME AXETIL 34390149553 No Longer Active Anthony CARBONE Active ZOLOFT 50 MG TAB 1 tablet by mouth daily SERTRALINE HCL 54415334913 No Longer Active Anthony CARBONE Active ANUSOL-HC 2.5 % CREAM apply as needed HYDROCORTISONE (RECTAL) 41499314140 No Longer Active Anthony CARBONE Active COLACE 100 MG CAP 1 tab PO BID DOCUSATE SODIUM 44375637218 No Longer Active Anthony CARBONE Active TRINESSA (28) 0.18/0.215/0.25 MG-35 MCG TABS 1 po qd as directed NORGESTIM-ETH ESTRAD TRIPHASIC 49962719850 No Longer Active Anthony CARBONE Active [facility] MELATONIN 5 MG TABS 1-2 po qHS PRN Insomnia MELATONIN 09410765151 No Longer Active Anthony CARBONE Active ACYCLOVIR 400 MG TABS ACYCLOVIR 96686480137 No Longer Active Ang Markham MD Active HYDROXYZINE HCL 25 MG TABS 1 tab PO tid PRN itching HYDROXYZINE HCL 40421102063 No Longer Active Ang Markham MD Active DIFLUCAN 150 MG TAB 1 qODay x 2 doses FLUCONAZOLE 92430238831 No Longer Active Da Romero APRN Active ACYCLOVIR 400 MG TABS 1 pill twice daily ACYCLOVIR 49497314002 No Longer Active Da Romero APRN Active AZITHROMYCIN 250 MG TABS 2 po qd x 1 day, then 1 po qd x 4 days AZITHROMYCIN 38397019969 No Longer Active Eri C Madril MD PhD Active AZITHROMYCIN 250 MG TABS take 2 po day 1 then take1 po days 2-5 AZITHROMYCIN 55573223699 No Longer Active Octaviano CARBONE Active ACYCLOVIR 400 MG TABS 1 po qd ACYCLOVIR 69495825093 No Longer Active Ang Markham MD Active PROZAC 40 MG CAPS 1 cap by mouth at bedtime FLUOXETINE HCL 97488360744 No Longer Active Ang Markham MD Active HYDROXYZINE HCL 25 MG TABS 1 tab PO tid PRN itching HYDROXYZINE HCL 25 MG TABS 897515 HYDROXYZINE HCL Inactive [facility] MELATONIN 5 MG TABS 1-2 po qHS PRN Insomnia [facility] MELATONIN 5 MG TABS 621971 MELATONIN Inactive TRINESSA (28) 0.18/0.215/0.25 MG-35 MCG TABS 1 po qd as directed TRINESSA (28) 0.18/0.215/0.25 MG-35 MCG TABS 475091 NORGESTIM-ETH ESTRAD TRIPHASIC Inactive COLACE 100 MG CAP 1 tab PO BID COLACE 100 MG CAP 0950024 DOCUSATE SODIUM Inactive ANUSOL-HC 2.5 % CREAM apply as needed ANUSOL-HC 2.5 % CREAM 508600 HYDROCORTISONE (RECTAL) Inactive ZOLOFT 50 MG TAB 1 tablet by mouth daily ZOLOFT 50 MG TAB 001510 SERTRALINE HCL Inactive CEFTIN 500 MG TAB 1 tablet by mouth twice daily for 7 days 07/24 CEFTIN 500 MG TAB 094013 CEFUROXIME AXETIL Inactive NITROFURANTOIN MACROCRYSTAL 100 MG CAPS 1 capsule PO bid x 7 days NITROFURANTOIN MACROCRYSTAL 100 MG CAPS 3434945 NITROFURANTOIN MACROCRYSTAL Inactive IBUPROFEN 800 MG TABS 1 tab every 8 hours as needed for pain 2013 IBUPROFEN 800 MG TABS 730614 IBUPROFEN Inactive COLACE 100 MG CAP 1 po BID PRN Constipation COLACE 100 MG CAP 6568248 DOCUSATE SODIUM Inactive MELOXICAM 15 MG TABS 1 po qd PRN Knee Pain MELOXICAM 15 MG TABS 393838 MELOXICAM Inactive LEVEMIR FLEXPEN 100 UNIT/ML SOLN 40 units SC at bedtime LEVEMIR FLEXPEN 100 UNIT/ML SOLN INSULIN DETEMIR Inactive GENTAMICIN SULFATE 0.1 % EXT OINT Apply to open sores once a day. GENTAMICIN SULFATE 0.1 % EXT OINT 089331 GENTAMICIN SULFATE Inactive EMBRACE BLOOD GLUCOSE TEST STRP Test blood sugars 4 times daily and PRN 08/05 EMBRACE BLOOD GLUCOSE TEST STRP GLUCOSE BLOOD Inactive ACYCLOVIR 400 MG TABS 1 po qd ACYCLOVIR 400 MG TABS 304210 ACYCLOVIR Inactive AZITHROMYCIN 250 MG TABS take 2 po day 1 then take1 po days 2-5 AZITHROMYCIN 250 MG TABS 0896512 AZITHROMYCIN Inactive AZITHROMYCIN 250 MG TABS 2 po qd x 1 day, then 1 po qd x 4 days AZITHROMYCIN 250 MG TABS 5677680 AZITHROMYCIN Inactive ACYCLOVIR 400 MG TABS 1 pill twice daily ACYCLOVIR 400 MG TABS 339859 ACYCLOVIR Inactive DIFLUCAN 150 MG TAB 1 qODay x 2 doses DIFLUCAN 150 MG TAB 391848 FLUCONAZOLE Inactive ACYCLOVIR 400 MG TABS ACYCLOVIR 400 MG TABS 620282 ACYCLOVIR Inactive DIFLUCAN 150 MG TAB 1 qODay x 2 doses DIFLUCAN 150 MG TAB 675418 FLUCONAZOLE Inactive BACTRIM DS 800-160 MG TAB 1 tab by mouth twice daily BACTRIM DS 800-160 MG TAB 530829 TRIMETHOPRIM-SULFAMETHOXAZOLE Inactive Advance Directives Directive Description Start [...] HGBA1C - Chemistry sodium, serum 134 mmol/L 076-734 4462/03/16 carbon dioxide, venous blood 34.5 mmol/L 21.0-32.0 potassium, serum 4.6 mmol/L 3.5-5.2 chloride, serum 93 mmol/L 98-107 blood glucose 408 mg/dL 65-110 urea nitrogen, blood 3 mg/dL 7-18 creatinine, serum 0.58 mg/dL 0.55-1.30 alanine aminotransferase (SGPT), serum 11 U/L 12-78 aspartate aminotransferase (SGOT), serum 8 U/L 15-37 calcium, serum 9.2 mg/dL 8.5-10.1 bilirubin, serum, total 0.30 mg/dL 0.00-1.00 cholesterol, serum 195 mg/dL 532-808 7071/03/16 triglyceride, serum, fasting 138 mg/dL 30-200 HDL [...] dipstick Negative Negative sodium, serum 133 mmol/L 102-433 0850/06/03 carbon dioxide, venous blood 33.4 mmol/L 21.0-32.0 [...] pH, urine, semiquantitative 5.5 5.0-8.5 Lab Report: [facility] – [place] - Chemistry human chorionic [...] Yes Encounters Code Encounter Date Provider Facility CPT-39250 Level 4 Est. Patient 16:10:09 CDT Janeysonia Bradley [facility] CPT-29204 Level 3 Est. Patient 13:51:24 CDT Ang Markham MD [facility] CPT-00212 Level 3 Est. Patient 18:42:15 CDT Gabriel Hunt [facility] CPT-47583 Level 5 Est. Patient 14:40:14 CDT Janeysonia Bradley [facility] CPT-28709 Level 4 Est. Patient 14:36:17 CDT Ang Markham MD [facility] CPT-04598 Level 3 Est. Patient 11:13:47 RN [facility] Ang Markham MD [facility] CPT-85304 Level 3 Est. Patient 11:59:20 RN PROGRESSIVE CARE UNIT Gloria Dunbar [facility] CPT-81221 Level 3 Est. Patient 17:32:37 RN PROGRESSIVE CARE UNIT Gloria Dunbar [facility] CPT-77335 Level 4 Est. Patient 16:39:07 CDT Ang Markham MD [facility] CPT-13071 Level 3 Est. Patient 16:35:50 CDT Ang Markham MD [facility] CPT-26251 Level 4 Est. Patient 13:53:06 RN PROGRESSIVE CARE UNIT Ang Markham MD [facility] CPT-94167 Level 3 Est. Patient 08:58:08 RN PROGRESSIVE CARE UNIT Ang Markham MD [facility] CPT-59779 Level 3 Est. Patient 18:48:29 CDT Anthony CARBONE [facility] CPT-72125 Level 3 Est. Patient 12:16:59 CDT Gabriel Hunt DO [facility] CPT-77805 Level 3 Est. Patient 18:57:15 CDT Anthony CARBONE [facility] CPT-05279 Level 3 Est. Patient 13:59:22 RN PROGRESSIVE CARE UNIT Ang Markham MD [facility] CPT-56318 Level 4 Est. Patient 10:36:08 RN PROGRESSIVE CARE UNIT Ang Markham MD [facility] CPT-44241 Level 3 Est. Patient 16:27:02 CDT Eri Borges MD PhD [facility] CPT-92078 Level 3 Est. Patient 10:36:43 CDT Octaviano CARBONE [facility] CPT-17602 Level 4 New Patient 08:58:06 CDT Ang Markham MD [facility] Procedures Code Procedure Name Date Entry Date Standard Description CPT-83146 Abd compl w upright - XRAY USE ONLY 14:09:39 CDT 02/28 CPT-75578 Venipuncture Draw Fee 12:25:15 CDT CPT-36170 Knee 3V 16:48:40 CDT CPT-OV Office Visit 16:27:13 CDT CPT-OV Office Visit 16:21:19 CDT CPT-21686 Sono pelvis non OB uterus ovaries cervix 09:37:28 CDT
--- OUTSIDE RECORDS SUMMARY | 2018-12-22 01:38 | XMS REPORT | Clinical Summary ---
Author Author Admin, QIE Organization [employer] Address Unknown Phone Unavailable Allergies, Adverse Reactions, [...] vulva and vagina Insomnia 780.52 Active Ang aMrkham MD Insomnia, unspecified Joint crepitus, knee 719.66 [...] 1 po BID PRN Constipation DOCUSATE SODIUM 30839754718 Active Ang Markham MD Active PAXIL 20 MG TAB 1 tablet by mouth daily PAROXETINE HCL 29779286412 Active Ang Markham MD Active GENTAMICIN SULFATE 0.1 % EXT OINT Apply to open sores once a day. GENTAMICIN SULFATE 25834349441 No Longer Active Ang Markham MD Active ZOLPIDEM TARTRATE 10 MG TABS 1 po qHS PRN Insomnia ZOLPIDEM TARTRATE 77653181036 Active Ang Markham MD Active BACTRIM DS 800-160 MG TAB 1 tab by mouth twice daily TRIMETHOPRIM-SULFAMETHOXAZOLE 01688086879 No Longer Active Gloria Dunbar PICTURE FRAMES INSPECTOR Active LEVEMIR FLEXTOUCH 100 UNIT/ML SC SOPN 40 units SC nightly INSULIN DETEMIR 70266998386 Active Ang Markham MD Active LEVEMIR FLEXPEN 100 UNIT/ML SOLN 40 units SC at bedtime INSULIN DETEMIR No Longer Active Susan Arellano RMA Active INSUPEN ULTRAFIN 31G X 6 MM MISC Use with insulin qid. DX: E11.9 INSULIN PEN NEEDLE 89699388184 Active Ang Markham MD Active ZOLOFT 100 MG TAB 1 po qHS SERTRALINE HCL 53902206310 No Longer Active Ang Markham MD Active MELOXICAM 15 MG TABS 1 po qd PRN Knee Pain MELOXICAM 05644889902 No Longer Active Ang Markham MD Active LIPITOR 40 MG TAB 1 po qHS ATORVASTATIN CALCIUM 07347620026 Active Ang Markham MD Active METFORMIN HCL 1000 MG TABS 1 tablet by mouth twice daily METFORMIN HCL 28257574256 Active Ang Markham MD Active CYCLOBENZAPRINE HCL 5 MG TABS 1 po qHS PRN Muscle pain CYCLOBENZAPRINE HCL 25342585272 Active Ang Markham MD Active COLACE 100 MG CAP 1 po BID PRN Constipation DOCUSATE SODIUM 50813918111 No Longer Active Ang Markham MD Active HYDROXYZINE HCL 25 MG TAB 1 TID PRN nerves HYDROXYZINE HCL 51295881155 Active Ang Markham MD Active IBUPROFEN 800 MG TABS 1 tab every 8 hours as needed for pain 2013 IBUPROFEN 04359949388 No Longer Active Ang Markham MD Active NITROFURANTOIN MACROCRYSTAL 100 MG CAPS 1 capsule PO bid x 7 days NITROFURANTOIN MACROCRYSTAL 08703272116 No Longer Active Ang Markham MD Active DIFLUCAN 150 MG TAB 1 qODay x 2 doses FLUCONAZOLE 93713351505 No Longer Active Da Romero PICTURE FRAMES INSPECTOR Active CEFTIN 500 MG TAB 1 tablet by mouth twice daily for 7 days 07/24 CEFUROXIME AXETIL 73406451940 No Longer Active Anthony CARBONE Active ZOLOFT 50 MG TAB 1 tablet by mouth daily SERTRALINE HCL 68588614832 No Longer Active Anthony CARBONE Active ANUSOL-HC 2.5 % CREAM apply as needed HYDROCORTISONE (RECTAL) 78651601997 No Longer Active Anthony CARBONE Active COLACE 100 MG CAP 1 tab PO BID DOCUSATE SODIUM 50295035276 No Longer Active Anthony CARBONE Active TRINESSA (28) 0.18/0.215/0.25 MG-35 MCG TABS 1 po qd as directed NORGESTIM-ETH ESTRAD TRIPHASIC 83894095938 No Longer Active Anthony CARBONE Active [facility] MELATONIN 5 MG TABS 1-2 po qHS PRN Insomnia MELATONIN 27912671436 No Longer Active Anthony CARBONE Active NOVOLOG FLEXPEN 100 UNIT/ML SOPN Take 18 units TID with meals INSULIN ASPART 65576415637 Active Codey Hdez MD Active ACYCLOVIR 400 MG TABS ACYCLOVIR 87835450924 No Longer Active Ang Markham MD Active EMBRACE BLOOD GLUCOSE TEST STRP Test blood sugars 4 times daily and PRN 08/05 GLUCOSE BLOOD 11889017337 Active Ang Markham MD Active HYDROXYZINE HCL 25 MG TABS 1 tab PO tid PRN itching HYDROXYZINE HCL 61572838918 No Longer Active Ang Markham MD Active DIFLUCAN 150 MG TAB 1 qODay x 2 doses FLUCONAZOLE 88437135160 No Longer Active Da Romero APRN Active ACYCLOVIR 400 MG TABS 1 pill twice daily ACYCLOVIR 22589510054 No Longer Active Jillina Nick OSHEA Active AZITHROMYCIN 250 MG TABS 2 po qd x 1 day, then 1 po qd x 4 days AZITHROMYCIN 55393866313 No Longer Active Eri Borges MD PhD Active AZITHROMYCIN 250 MG TABS take 2 po day 1 then take1 po days 2-5 AZITHROMYCIN 43603286698 No Longer Active Octaviano CARBONE Active ACYCLOVIR 400 MG TABS 1 po qd ACYCLOVIR 20945107930 No Longer Active Ang Markham MD Active PROZAC 40 MG CAPS 1 cap by mouth at bedtime FLUOXETINE HCL 74863213336 No Longer Active Ang Markham MD Active HYDROXYZINE HCL 25 MG TABS 1 tab PO tid PRN itching HYDROXYZINE HCL 25 MG TABS 287005 HYDROXYZINE HCL Inactive [facility] MELATONIN 5 MG TABS 1-2 po qHS PRN Insomnia [facility] MELATONIN 5 MG TABS 952385 MELATONIN Inactive TRINESSA (28) 0.18/0.215/0.25 MG-35 MCG TABS 1 po qd as directed TRINESSA (28) 0.18/0.215/0.25 MG-35 MCG TABS 724953 NORGESTIM-ETH ESTRAD TRIPHASIC Inactive COLACE 100 MG CAP 1 tab PO BID COLACE 100 MG CAP 2656142 DOCUSATE SODIUM Inactive ANUSOL-HC 2.5 % CREAM apply as needed ANUSOL-HC 2.5 % CREAM 064143 HYDROCORTISONE (RECTAL) Inactive ZOLOFT 50 MG TAB 1 tablet by mouth daily ZOLOFT 50 MG TAB 224103 SERTRALINE HCL Inactive CEFTIN 500 MG TAB 1 tablet by mouth twice daily for 7 days 07/24 CEFTIN 500 MG TAB 692612 CEFUROXIME AXETIL Inactive NITROFURANTOIN MACROCRYSTAL 100 MG CAPS 1 capsule PO bid x 7 days NITROFURANTOIN MACROCRYSTAL 100 MG CAPS 6387634 NITROFURANTOIN MACROCRYSTAL Inactive IBUPROFEN 800 MG TABS 1 tab every 8 hours as needed for pain 2013 IBUPROFEN 800 MG TABS 671929 IBUPROFEN Inactive COLACE 100 MG CAP 1 po BID PRN Constipation COLACE 100 MG CAP 1214460 DOCUSATE SODIUM Inactive MELOXICAM 15 MG TABS 1 po qd PRN Knee Pain MELOXICAM 15 MG TABS 269157 MELOXICAM Inactive LEVEMIR FLEXPEN 100 UNIT/ML SOLN 40 units SC at bedtime LEVEMIR FLEXPEN 100 UNIT/ML SOLN INSULIN DETEMIR Inactive GENTAMICIN SULFATE 0.1 % EXT OINT Apply to open sores once a day. GENTAMICIN SULFATE 0.1 % EXT OINT 018547 GENTAMICIN SULFATE Inactive ACYCLOVIR 400 MG TABS 1 po qd ACYCLOVIR 400 MG TABS 19720928 ACYCLOVIR Inactive AZITHROMYCIN 250 MG TABS take 2 po day 1 then take1 po days 2-5 AZITHROMYCIN 250 MG TABS 3219564 AZITHROMYCIN Inactive AZITHROMYCIN 250 MG TABS 2 po qd x 1 day, then 1 po qd x 4 days AZITHROMYCIN 250 MG TABS 6917591 AZITHROMYCIN Inactive ACYCLOVIR 400 MG TABS 1 pill twice daily ACYCLOVIR 400 MG TABS 226772 ACYCLOVIR Inactive DIFLUCAN 150 MG TAB 1 qODay x 2 doses DIFLUCAN 150 MG TAB 494310 FLUCONAZOLE Inactive ACYCLOVIR 400 MG TABS ACYCLOVIR 400 MG TABS 646156 ACYCLOVIR Inactive DIFLUCAN 150 MG TAB 1 qODay x 2 doses DIFLUCAN 150 MG TAB 382848 FLUCONAZOLE Inactive BACTRIM DS 800-160 MG TAB 1 tab by mouth twice daily BACTRIM DS 800-160 MG TAB 560720 TRIMETHOPRIM-SULFAMETHOXAZOLE Inactive Advance Directives Directive Description Start [...] 4.3-6.0 Encounters Code Encounter Date Provider Facility CPT-74904 Level 3 Est. Patient 11:13:47 POEM WRITER Ang Markham MD [facility] CPT-48798 Level 3 Est. Patient 11:59:20 POEM WRITER Gloria Dunbar [facility] CPT-14579 Level 3 Est. Patient 17:32:37 POEM WRITER Gloria Dunbar [facility] CPT-59520 Level 4 Est. Patient 16:39:07 CDT Ang Markham MD [facility] CPT-45079 Level 3 Est. Patient 16:35:50 CDT Ang Markham MD [facility] CPT-54226 Level 4 Est. Patient 13:53:06 POEM WRITER Ang Markham MD [facility] CPT-45096 Level 3 Est. Patient 08:58:08 POEM WRITER Ang Markham MD [facility] CPT-08937 Level 3 Est. Patient 18:48:29 CDT Anthony Whitfield [facility] CPT-15624 Level 3 Est. Patient 12:16:59 CDT Gabriel Hunt DO [facility] CPT-04823 Level 3 Est. Patient 18:57:15 CDT Anthony Whitfield [facility] CPT-53932 Level 3 Est. Patient 13:59:22 POEM WRITER Ang Markham MD [facility] CPT-17877 Level 4 Est. Patient 10:36:08 POEM WRITER Ang Markham MD [facility] CPT-87258 Level 3 Est. Patient 16:27:02 CDT Eri Borges MD PhD [facility] CPT-50391 Level 3 Est. Patient 10:36:43 CDT Octaviano Dempsey [facility] CPT-41557 Level 4 New Patient 08:58:06 CDT Ang Markham MD [facility] Procedures Code Procedure Name Date Entry Date Standard Description CPT-64961 Venipuncture Draw Fee 12:25:15 CDT CPT-19111 Knee 3V 16:48:40 CDT CPT-OV Office Visit 16:27:13 CDT CPT-OV Office Visit 16:21:19 CDT CPT-78496 Sono pelvis non OB uterus ovaries cervix 09:37:28 CDT
--- OUTSIDE RECORDS SUMMARY | 2018-12-22 01:39 | XMS REPORT | Clinical Summary ---
Author Author Admin, QIE Organization [employer] Address Unknown Phone Unavailable Allergies, Adverse Reactions, [...] Resolved Ang Markham MD Acute swimmers' ear vault maker use 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 V58.67 Active Celestine [...] 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 ICD-V58.67 Nathan Markham MD Hematochezia ICD-578.1 Nathan Markham MD Nausea ICD-787.02 Nathan Markham MD 06/26 Otitis externa, acute, left ICD-380.12 Nathan Markham MD Abdominal pain ICD-789.00 Inactive Ang Markham MD Medication List Medication Instructions Start Date Stop Date Generic Name NDC Status Provider Patient Instruction TYLENOL WITH CODEINE #3 300-30 MG TABS 1 every four hours as needed for pain ACETAMINOPHEN-CODEINE 04201175050 Active Conner Hills MD Active CLINDAMYCIN HCL 300 MG ORAL CAPS 1 four times a day CLINDAMYCIN HCL 53558445243 Active Conner Hills MD Active LEVAQUIN 500 MG TABS 1 daily for infection LEVOFLOXACIN 00242138695 No Longer Active Conner Hills MD Active DOXEPIN HCL 10 MG CAP 1 tablet nightly for the itch DOXEPIN HCL 18620867261 No Longer Active Conner Hills MD Active TRESIBA FLEXTOUCH 200 UNIT/ML SC SOPN Take 70 units daily at mid-night to 1 am. INSULIN DEGLUDEC 96901576124 No Longer Active Conner Hills MD Active METFORMIN HCL 1000 MG TABS 1 tablet by mouth twice daily METFORMIN HCL 86919156779 No Longer Active Conner Hills MD Active LIPITOR 40 MG TAB 1 po qHS ATORVASTATIN CALCIUM 96186226115 No Longer Active Conner Hills MD Active GEMFIBROZIL 600 MG TABS 1 po BID GEMFIBROZIL 76009294389 No Longer Active Conner Hills MD Active CORTISPORIN 3.5-15309-3 SOLN 4gtts in affected ear QID x 7 days [id number] 16081131344 No Longer Active Ang Markham MD Active LEVEMIR FLEXTOUCH 100 UNIT/ML SC SOPN 35 units SC at 12-1pm, 35 units 12-1am INSULIN DETEMIR 00747680028 No Longer Active Celestine PEARCE Active REGLAN 10 MG TAB 0.5 po TID 30min prior to meals METOCLOPRAMIDE HCL 15555221926 Active Ang Markham MD Active ZANTAC 150 MG TAB 1 po BID RANITIDINE HCL 81587115112 Active Ang Markham MD Active COLACE 100 MG CAP 1 po daily DOCUSATE SODIUM 12382494836 Active Gabriel Hunt DO Active NOVOLOG FLEXPEN 100 UNIT/ML SOPN Take 20 units TID with meals, plus 2u/50 for blood sugars above 150. Ratio vs. Carbs INSULIN ASPART 63807202728 Active Gabriel Hunt DO Active BD PEN NEEDLE DINESH U/F 32G X 4 MM MISC 5 a day INSULIN PEN NEEDLE 30822339824 Active Malwalter Ziglari MOBILE HOMES REPAIRER Active EMBRACE BLOOD GLUCOSE TEST STRP Test blood sugars 4 times daily and PRN 08/05 GLUCOSE BLOOD 96341688109 No Longer Active Malstepheneh Ziglari MOBILE HOMES REPAIRER Active TRUEPLUS LANCETS 30G MISC 4 a day LANCETS 35010848792 Active Maliheh Ziglari MOBILE HOMES REPAIRER Active TRUETEST TEST STRP check blood sugars 4x/day GLUCOSE BLOOD 86580195064 Active Maliheh Ziglari MOBILE HOMES REPAIRER Active TRUERESULT BLOOD GLUCOSE W/DEVICE KIT check blood sugars 4x a day BLOOD GLUCOSE MONITORING SUPPL 75295674220 Active Malstepheneh Ziglari MOBILE HOMES REPAIRER Active LISINOPRIL 5 MG TABS 1 po qd LISINOPRIL 35308356117 Active Ang Markham MD Active PAXIL 20 MG TAB 1 tablet by mouth daily PAROXETINE HCL 87868374614 Active Ang Markham MD Active GENTAMICIN SULFATE 0.1 % EXT OINT Apply to open sores once a day. GENTAMICIN SULFATE 39188542873 No Longer Active Ang Markham MD Active ZOLPIDEM TARTRATE 10 MG TABS 1 po qHS PRN Insomnia ZOLPIDEM TARTRATE 83739228285 Active Ang Markham MD Active BACTRIM DS 800-160 MG TAB 1 tab by mouth twice daily TRIMETHOPRIM-SULFAMETHOXAZOLE 10052315027 No Longer Active Gloria Dunbar CARDIAC SURGEON Active LEVEMIR FLEXPEN 100 UNIT/ML SOLN 40 units SC at bedtime INSULIN DETEMIR No Longer Active Susan Arellano RMA Active INSUPEN ULTRAFIN 31G X 6 MM MISC Use with insulin qid. DX: E11.9 INSULIN PEN NEEDLE 83201005934 Active Ang Markham MD Active ZOLOFT 100 MG TAB 1 po qHS SERTRALINE HCL 92392533773 No Longer Active Ang Markham MD Active MELOXICAM 15 MG TABS 1 po qd PRN Knee Pain MELOXICAM 97748962412 No Longer Active Ang Markham MD Active CYCLOBENZAPRINE HCL 5 MG TABS 1 po qHS PRN Muscle pain CYCLOBENZAPRINE HCL 30098604086 Active Ang Markham MD Active COLACE 100 MG CAP 1 po BID PRN Constipation DOCUSATE SODIUM 80684235559 No Longer Active Ang Markham MD Active HYDROXYZINE HCL 25 MG TAB 1 TID PRN nerves HYDROXYZINE HCL 03912787718 Active Ang Markham MD Active IBUPROFEN 800 MG TABS 1 tab every 8 hours as needed for pain 2013 IBUPROFEN 81934574564 No Longer Active Ang Markham MD Active NITROFURANTOIN MACROCRYSTAL 100 MG CAPS 1 capsule PO bid x 7 days NITROFURANTOIN MACROCRYSTAL 84830097546 No Longer Active Ang Markham MD Active DIFLUCAN 150 MG TAB 1 qODay x 2 doses FLUCONAZOLE 80186770801 No Longer Active Da Romero APRN Active CEFTIN 500 MG TAB 1 tablet by mouth twice daily for 7 days 07/24 CEFUROXIME AXETIL 20083708756 No Longer Active Anthony CARBONE Active ZOLOFT 50 MG TAB 1 tablet by mouth daily SERTRALINE HCL 99691870175 No Longer Active Anthony CARBONE Active ANUSOL-HC 2.5 % CREAM apply as needed HYDROCORTISONE (RECTAL) 86631371576 No Longer Active Anthony CARBONE Active COLACE 100 MG CAP 1 tab PO BID DOCUSATE SODIUM 03459304866 No Longer Active Anthony CARBONE Active TRINESSA (28) 0.18/0.215/0.25 MG-35 MCG TABS 1 po qd as directed NORGESTIM-ETH ESTRAD TRIPHASIC 72637723645 No Longer Active Anthony CABRONE Active [facility] MELATONIN 5 MG TABS 1-2 po qHS PRN Insomnia MELATONIN 33226574695 No Longer Active Anthony CARBONE Active ACYCLOVIR 400 MG TABS ACYCLOVIR 37593720385 No Longer Active Ang Markham MD Active HYDROXYZINE HCL 25 MG TABS 1 tab PO tid PRN itching HYDROXYZINE HCL 65749583943 No Longer Active Ang Markham MD Active DIFLUCAN 150 MG TAB 1 qODay x 2 doses FLUCONAZOLE 41294991894 No Longer Active Da Romero APRN Active ACYCLOVIR 400 MG TABS 1 pill twice daily ACYCLOVIR 53078486827 No Longer Active Jillina Nick OSHEA Active AZITHROMYCIN 250 MG TABS 2 po qd x 1 day, then 1 po qd x 4 days AZITHROMYCIN 71647654065 No Longer Active Eri Borges MD PhD Active AZITHROMYCIN 250 MG TABS take 2 po day 1 then take1 po days 2-5 AZITHROMYCIN 38466508015 No Longer Active Octaviano CARBONE Active ACYCLOVIR 400 MG TABS 1 po qd ACYCLOVIR 09002698421 No Longer Active Ang Markham MD Active PROZAC 40 MG CAPS 1 cap by mouth at bedtime FLUOXETINE HCL 37657445882 No Longer Active Ang Markham MD Active HYDROXYZINE HCL 25 MG TABS 1 tab PO tid PRN itching HYDROXYZINE HCL 25 MG TABS 330089 HYDROXYZINE HCL Inactive [facility] MELATONIN 5 MG TABS 1-2 po qHS PRN Insomnia [facility] MELATONIN 5 MG TABS 857499 MELATONIN Inactive TRINESSA (28) 0.18/0.215/0.25 MG-35 MCG TABS 1 po qd as directed TRINESSA (28) 0.18/0.215/0.25 MG-35 MCG TABS 276082 NORGESTIM-ETH ESTRAD TRIPHASIC Inactive COLACE 100 MG CAP 1 tab PO BID COLACE 100 MG CAP 2246015 DOCUSATE SODIUM Inactive ANUSOL-HC 2.5 % CREAM apply as needed ANUSOL-HC 2.5 % CREAM 977317 HYDROCORTISONE (RECTAL) Inactive ZOLOFT 50 MG TAB 1 tablet by mouth daily ZOLOFT 50 MG TAB 827535 SERTRALINE HCL Inactive CEFTIN 500 MG TAB 1 tablet by mouth twice daily for 7 days 07/24 CEFTIN 500 MG TAB 337079 CEFUROXIME AXETIL Inactive NITROFURANTOIN MACROCRYSTAL 100 MG CAPS 1 capsule PO bid x 7 days NITROFURANTOIN MACROCRYSTAL 100 MG CAPS 9288346 NITROFURANTOIN MACROCRYSTAL Inactive IBUPROFEN 800 MG TABS 1 tab every 8 hours as needed for pain 2013 IBUPROFEN 800 MG TABS 911770 IBUPROFEN Inactive COLACE 100 MG CAP 1 po BID PRN Constipation COLACE 100 MG CAP 5949412 DOCUSATE SODIUM Inactive MELOXICAM 15 MG TABS 1 po qd PRN Knee Pain MELOXICAM 15 MG TABS 127216 MELOXICAM Inactive LEVEMIR FLEXPEN 100 UNIT/ML SOLN 40 units SC at bedtime LEVEMIR FLEXPEN 100 UNIT/ML SOLN INSULIN DETEMIR Inactive GENTAMICIN SULFATE 0.1 % EXT OINT Apply to open sores once a day. GENTAMICIN SULFATE 0.1 % EXT OINT 017809 GENTAMICIN SULFATE Inactive EMBRACE BLOOD GLUCOSE TEST STRP Test blood sugars 4 times daily and PRN 08/05 EMBRACE BLOOD GLUCOSE TEST STRP GLUCOSE BLOOD Inactive LEVEMIR FLEXTOUCH 100 UNIT/ML SC SOPN 35 units SC at 12-1pm, 35 units 12-1am LEVEMIR FLEXTOUCH 100 UNIT/ML SC SOPN INSULIN DETEMIR Inactive CORTISPORIN 3.5-21448-7 SOLN 4gtts in affected ear QID x 7 days CORTISPORIN 3.5-02719-6 SOLN 385556 [id number] Inactive GEMFIBROZIL 600 MG TABS 1 po BID GEMFIBROZIL 600 MG TABS 859809 GEMFIBROZIL Inactive LIPITOR 40 MG TAB 1 po qHS LIPITOR 40 MG TAB 583918 ATORVASTATIN CALCIUM Inactive METFORMIN HCL 1000 MG TABS 1 tablet by mouth twice daily METFORMIN HCL 1000 MG TABS 746088 METFORMIN HCL Inactive TRESIBA FLEXTOUCH 200 UNIT/ML SC SOPN Take 70 units daily at mid-night to 1 am. TRESIBA FLEXTOUCH 200 UNIT/ML SC SOPN INSULIN DEGLUDEC Inactive DOXEPIN HCL 10 MG CAP 1 tablet nightly for the itch DOXEPIN HCL 10 MG CAP 0579865 DOXEPIN HCL Inactive LEVAQUIN 500 MG TABS 1 daily for infection LEVAQUIN 500 MG TABS 913390 LEVOFLOXACIN Inactive ACYCLOVIR 400 MG TABS 1 po qd ACYCLOVIR 400 MG TABS 017396 ACYCLOVIR Inactive AZITHROMYCIN 250 MG TABS take 2 po day 1 then take1 po days 2-5 AZITHROMYCIN 250 MG TABS 7359659 AZITHROMYCIN Inactive AZITHROMYCIN 250 MG TABS 2 po qd x 1 day, then 1 po qd x 4 days AZITHROMYCIN 250 MG TABS 8232785 AZITHROMYCIN Inactive ACYCLOVIR 400 MG TABS 1 pill twice daily ACYCLOVIR 400 MG TABS 19720928 ACYCLOVIR Inactive DIFLUCAN 150 MG TAB 1 qODay x 2 doses DIFLUCAN 150 MG TAB 039745 FLUCONAZOLE Inactive ACYCLOVIR 400 MG TABS ACYCLOVIR 400 MG TABS 19720928 ACYCLOVIR Inactive DIFLUCAN 150 MG TAB 1 qODay x 2 doses DIFLUCAN 150 MG TAB 19760606 FLUCONAZOLE Inactive BACTRIM DS 800-160 MG TAB 1 tab by mouth twice daily BACTRIM DS 800-160 MG TAB 272802 TRIMETHOPRIM-SULFAMETHOXAZOLE Inactive Advance Directives Directive Description Start [...] E&M - 3141-9 123.8 [lb_av] Weight Measured Diagnostic Results Date Name Value Unit Range Description Lab Report: Comp. Metabolic Panel, Lipid Panel - Chemistry sodium, serum 130 mmol/L 496-814 9300/10/12 carbon dioxide, venous blood 28.1 mmol/L 21.0-32.0 potassium, serum 3.9 mmol/L 3.5-5.2 chloride, serum 91 mmol/L 98-107 blood glucose 547 mg/dL 65-110 urea nitrogen, blood 3 mg/dL 7-18 creatinine, serum 0.78 mg/dL 0.55-1.30 alanine aminotransferase (SGPT), serum 11 U/L 12-78 aspartate aminotransferase (SGOT), serum 7 U/L 15-37 calcium, serum 8.8 mg/dL 8.5-10.1 bilirubin, serum, total 0.30 mg/dL 0.00-1.00 cholesterol, serum 221 mg/dL 409-214 6444/10/12 triglyceride, serum, fasting 590 mg/dL 30-200 HDL cholesterol, serum 45 mg/dL 32-96 LDL cholesterol, serum 58 mg/dL 0-130 Lab Report: HGBA1C - Chemistry hemoglobin A1C, blood, as % of total hemoglobin 11.4 % 4.3-6.0 Lab Report: UADIP W/MICRO, AUTO, CBC W/DIFF, Comp. Metabolic Panel - Chemistry protein, total urine random Negative mg/dL Negative sodium, serum 133 mmol/L 393-730 4512/06/03 carbon dioxide, venous blood 33.4 mmol/L 21.0-32.0 potassium, serum 4.3 mmol/L 3.5-5.2 chloride, serum 97 mmol/L 98-107 blood glucose 450 mg/dL 65-110 urea nitrogen, blood 9 mg/dL 7-18 creatinine, serum 0.68 mg/dL 0.55-1.30 alanine aminotransferase (SGPT), serum 18 U/L 12-78 RBC, urine, dipstick Negative Negative aspartate aminotransferase (SGOT), serum 15 U/L [...] nitrite, urine, semiquantitative Negative Negative Lab Report: [facility] [place] - Chemistry human chorionic gonadotropin, urine, qualitative [...] mg/dL Encounters Code Encounter Date Provider Facility CPT-32173 Level 3 Est. Patient 10:22:30 CDT Conner Hills MD [facility] CPT-07955 Level 3 Est. Patient 15:02:19 CDT Shreya Velazquez [facility] CPT-14269 Level 3 Est. Patient 13:22:25 CDT Gabriel Hunt [facility] CPT-22583 Level 4 Est. Patient 16:02:22 CDT Ang Markham MD [facility] CPT-18868 Level 3 Est. Patient 16:21:23 CDT Celestine Huerta [facility] CPT-52394 Level 3 Est. Patient 17:02:56 CDT Gabriel Hunt [facility] CPT-48507 Level 3 Est. Patient 14:46:22 CDT Da Romero [facility] [place] CPT-42645 Level 4 Est. Patient 13:55:20 CDT Ang Markham MD [facility] CPT-94118 Level 4 Est. Patient 16:10:09 CDT Celestine Huerta [facility] CPT-46915 Level 3 Est. Patient 13:51:24 CDT Ang Markham MD [facility] CPT-17699 Level 3 Est. Patient 18:42:15 CDT Gabriel Hunt [facility] CPT-39357 Level 5 Est. Patient 14:40:14 CDT Celestine [facility] CPT-54222 Level 4 Est. Patient 14:36:17 CDT Ang Markham MD [facility] CPT-02303 Level 3 Est. Patient 11:13:47 SOLAR INSTALLATION SUPERVISOR Ang Markham MD [facility] CPT-39916 Level 3 Est. Patient 11:59:20 SOLAR INSTALLATION SUPERVISOR Gloria Dunbar [facility] [place] CPT-22970 Level 3 Est. Patient 17:32:37 SOLAR INSTALLATION SUPERVISOR Gloria Dunbar [facility] [place] CPT-32124 Level 4 Est. Patient 16:39:07 CDT Ang Markham MD [facility] CPT-86871 Level 3 Est. Patient 16:35:50 CDT Ang Markham MD [facility] CPT-51055 Level 4 Est. Patient 13:53:06 SOLAR INSTALLATION SUPERVISOR Ang Markham MD [facility] CPT-32360 Level 3 Est. Patient 08:58:08 SOLAR INSTALLATION SUPERVISOR Ang Markham MD [facility] CPT-39003 Level 3 Est. Patient 18:48:29 CDT Anthony Whitfield [facility] CPT-62028 Level 3 Est. Patient 12:16:59 CDT Gabriel Hunt DO [facility] CPT-95683 Level 3 Est. Patient 18:57:15 CDT Anthony Whitfield [facility] CPT-86637 Level 3 Est. Patient 13:59:22 SOLAR INSTALLATION SUPERVISOR Ang Markham MD [facility] CPT-68911 Level 4 Est. Patient 10:36:08 SOLAR INSTALLATION SUPERVISOR Ang Markham MD [facility] CPT-31169 Level 3 Est. Patient 16:27:02 CDT Eri Borges MD PhD [facility] CPT-63491 Level 3 Est. Patient 10:36:43 CDT Octaviano Dempsey [facility] CPT-09397 Level 4 New Patient 08:58:06 CDT Ang Markham MD [facility] Procedures Code Procedure Name Date Entry Date Standard Description CPT-41744 LS spine comp w obliques - XRAY USE ONLY 15:34:48 CDT CPT-86452 Lipid - LAB USE ONLY 15:28:39 CDT CPT-60522 CMP - LAB USE ONLY 15:28:39 CDT CPT-38449 Venipuncture Draw Fee 15:28:39 CDT CPT-21270 Abd compl w upright - XRAY USE ONLY 14:09:39 CDT 02/28 CPT-21536 Venipuncture Draw Fee 12:25:15 CDT CPT-03689 Knee 3V 16:48:40 CDT CPT-OV Office Visit 16:27:13 CDT CPT-OV Office Visit 16:21:19 CDT CPT-92036 Sono pelvis non OB uterus ovaries cervix 09:37:28 CDT
[2018-12-22] MEDS ORDERED: OMEPRAZOLE 20MG CAPSULES (01:40)
[2018-12-22] MEDS ORDERED: [UNRECOGNIZED DRUG - SUPPLY] (01:40)
[2018-12-22] MEDS ORDERED: [UNRECOGNIZED DRUG - SUPPLY] (01:40)
[2018-12-22] MEDS ORDERED: BUSPIRONE 10 MG (01:40)
[2018-12-22] MEDS ORDERED: PAROXETINE 20 MG (01:40)
[2018-12-22] MEDS ORDERED: NOVOLOG (01:40)
[2018-12-22] MEDS ORDERED: INSULIN GLARGINE (01:40)
[2018-12-22] MEDS ORDERED: [UNRECOGNIZED DRUG - SUPPLY] (01:40)
[2018-12-22] MEDS ORDERED: AMLODIPINE BESYLATE 5MG TABLET (01:40)
[2018-12-22] MEDS ORDERED: CYCLOBENZAPRINE 10 MG (01:40)
--- OUTSIDE RECORDS SUMMARY | 2018-12-22 01:40 | XMS REPORT | Clinical Summary ---
Author Author Admin, QIE Organization [email or web address] Address Unknown Phone Unavailable Allergies, Adverse Reactions, [...] Other and unspecified hyperlipidemia Hematochezia 578.1 Active Jillpiedad Romero CELL ATTENDANT Blood in stool Nausea 787.02 Active Jillina Franayal CELL ATTENDANT Nausea alone DEPRESSION ICD-311 Inactive Ang Markham MD Diabetes [...] 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 ICD-V58.67 Nathan Markham MD Medication List Medication Instructions Start Date Stop Date Generic Name NDC Status Provider Patient Instruction LEVEMIR FLEXTOUCH 100 UNIT/ML SC SOPN 35 units SC at 12-1pm, 35 units 12-1am INSULIN DETEMIR 19985237497 Active Ang Markham MD Active DOXEPIN HCL 10 MG CAP 1 tablet nightly for the itch DOXEPIN HCL 19867617452 Active Gabriel Hunt DO Active COLACE 100 MG CAP 1 po daily DOCUSATE SODIUM 16399449910 Active Gabriel Hunt DO Active NOVOLOG FLEXPEN 100 UNIT/ML SOPN Take 20 units TID with meals, plus 2u/50 for blood sugars above 150. Ratio vs. Carbs INSULIN ASPART 21546391984 Active Gabriel Hunt DO Active BD PEN NEEDLE DINESH U/F 32G X 4 MM MISC 5 a day INSULIN PEN NEEDLE 34515233655 Active Celestine Huerta PLAYER DEVELOPMENT EXECUTIVE Active EMBRACE BLOOD GLUCOSE TEST STRP Test blood sugars 4 times daily and PRN 08/05 GLUCOSE BLOOD 93264775233 No Longer Active Celestine Sierraglari PLAYER DEVELOPMENT EXECUTIVE Active TRUEPLUS LANCETS 30G MISC 4 a day LANCETS 38896665635 Active Celestine Sierraglari PLAYER DEVELOPMENT EXECUTIVE Active TRUETEST TEST STRP check blood sugars 4x/day GLUCOSE BLOOD 65595291531 Active Celestine Sierraglari PLAYER DEVELOPMENT EXECUTIVE Active TRUERESULT BLOOD GLUCOSE W/DEVICE KIT check blood sugars 4x a day BLOOD GLUCOSE MONITORING SUPPL 48402725753 Active Celestine Sierraglari PLAYER DEVELOPMENT EXECUTIVE Active LISINOPRIL 5 MG TABS 1 po qd LISINOPRIL 09098048616 Active Ang Markham MD Active PAXIL 20 MG TAB 1 tablet by mouth daily PAROXETINE HCL 71705307031 Active Ang Markham MD Active GENTAMICIN SULFATE 0.1 % EXT OINT Apply to open sores once a day. GENTAMICIN SULFATE 69421668700 No Longer Active Ang Markham MD Active ZOLPIDEM TARTRATE 10 MG TABS 1 po qHS PRN Insomnia ZOLPIDEM TARTRATE 16040407272 Active Ang Markham MD Active BACTRIM DS 800-160 MG TAB 1 tab by mouth twice daily TRIMETHOPRIM-SULFAMETHOXAZOLE 73547345163 No Longer Active Gloriajuliette Goveaum CELL ATTENDANT Active LEVEMIR FLEXPEN 100 UNIT/ML SOLN 40 units SC at bedtime INSULIN DETEMIR No Longer Active Susan Adan RMA Active INSUPEN ULTRAFIN 31G X 6 MM MISC Use with insulin qid. DX: E11.9 INSULIN PEN NEEDLE 16302607188 Active Ang Markham MD Active ZOLOFT 100 MG TAB 1 po qHS SERTRALINE HCL 68430310436 No Longer Active Ang Markham MD Active MELOXICAM 15 MG TABS 1 po qd PRN Knee Pain MELOXICAM 26390305400 No Longer Active Ang Markham MD Active LIPITOR 40 MG TAB 1 po qHS ATORVASTATIN CALCIUM 27982975015 Active Ang Markham MD Active METFORMIN HCL 1000 MG TABS 1 tablet by mouth twice daily METFORMIN HCL 55956763098 Active Ang Markham MD Active CYCLOBENZAPRINE HCL 5 MG TABS 1 po qHS PRN Muscle pain CYCLOBENZAPRINE HCL 67603047853 Active Ang Markham MD Active COLACE 100 MG CAP 1 po BID PRN Constipation DOCUSATE SODIUM 90044692300 No Longer Active Ang Markham MD Active HYDROXYZINE HCL 25 MG TAB 1 TID PRN nerves HYDROXYZINE HCL 02270668597 Active Ang Markham MD Active IBUPROFEN 800 MG TABS 1 tab every 8 hours as needed for pain 2013 IBUPROFEN 35785171713 No Longer Active Ang Markham MD Active NITROFURANTOIN MACROCRYSTAL 100 MG CAPS 1 capsule PO bid x 7 days NITROFURANTOIN MACROCRYSTAL 72468605872 No Longer Active Ang Markham MD Active DIFLUCAN 150 MG TAB 1 qODay x 2 doses FLUCONAZOLE 81081935965 No Longer Active Jillina Josezell DAYO Active CEFTIN 500 MG TAB 1 tablet by mouth twice daily for 7 days 07/24 CEFUROXIME AXETIL 89088105371 No Longer Active Anthony CARBONE Active ZOLOFT 50 MG TAB 1 tablet by mouth daily SERTRALINE HCL 58327633804 No Longer Active Anthony CARBONE Active ANUSOL-HC 2.5 % CREAM apply as needed HYDROCORTISONE (RECTAL) 17261047940 No Longer Active Anthony CARBONE Active COLACE 100 MG CAP 1 tab PO BID DOCUSATE SODIUM 66481756901 No Longer Active Anthony CARBONE Active TRINESSA (28) 0.18/0.215/0.25 MG-35 MCG TABS 1 po qd as directed NORGESTIM-ETH ESTRAD TRIPHASIC 01114096199 No Longer Active Anthony CARBONE Active [facility] MELATONIN 5 MG TABS 1-2 po qHS PRN Insomnia MELATONIN 11388827524 No Longer Active Anthony CARBONE Active ACYCLOVIR 400 MG TABS ACYCLOVIR 02577941495 No Longer Active Ang Markham MD Active HYDROXYZINE HCL 25 MG TABS 1 tab PO tid PRN itching HYDROXYZINE HCL 23125125116 No Longer Active Ang Markham MD Active DIFLUCAN 150 MG TAB 1 qODay x 2 doses FLUCONAZOLE 07039211638 No Longer Active Jillina Frazell CELL ATTENDANT Active ACYCLOVIR 400 MG TABS 1 pill twice daily ACYCLOVIR 67725639122 No Longer Active Jillina Frazell CELL ATTENDANT Active AZITHROMYCIN 250 MG TABS 2 po qd x 1 day, then 1 po qd x 4 days AZITHROMYCIN 51551895416 No Longer Active Eri Borges MD PhD Active AZITHROMYCIN 250 MG TABS take 2 po day 1 then take1 po days 2-5 AZITHROMYCIN 88824040486 No Longer Active Octaviano CARBONE Active ACYCLOVIR 400 MG TABS 1 po qd ACYCLOVIR 79940470332 No Longer Active Ang Markham MD Active PROZAC 40 MG CAPS 1 cap by mouth at bedtime FLUOXETINE HCL 05750590806 No Longer Active Ang Markham MD Active HYDROXYZINE HCL 25 MG TABS 1 tab PO tid PRN itching HYDROXYZINE HCL 25 MG TABS 726354 HYDROXYZINE HCL Inactive [facility] MELATONIN 5 MG TABS 1-2 po qHS PRN Insomnia [facility] MELATONIN 5 MG TABS 440432 MELATONIN Inactive TRINESSA (28) 0.18/0.215/0.25 MG-35 MCG TABS 1 po qd as directed TRINESSA (28) 0.18/0.215/0.25 MG-35 MCG TABS 632327 NORGESTIM-ETH ESTRAD TRIPHASIC Inactive COLACE 100 MG CAP 1 tab PO BID COLACE 100 MG CAP 2959337 DOCUSATE SODIUM Inactive ANUSOL-HC 2.5 % CREAM apply as needed ANUSOL-HC 2.5 % CREAM 942087 HYDROCORTISONE (RECTAL) Inactive ZOLOFT 50 MG TAB 1 tablet by mouth daily ZOLOFT 50 MG TAB 335513 SERTRALINE HCL Inactive CEFTIN 500 MG TAB 1 tablet by mouth twice daily for 7 days 07/24 CEFTIN 500 MG TAB 013433 CEFUROXIME AXETIL Inactive NITROFURANTOIN MACROCRYSTAL 100 MG CAPS 1 capsule PO bid x 7 days NITROFURANTOIN MACROCRYSTAL 100 MG CAPS 8296215 NITROFURANTOIN MACROCRYSTAL Inactive IBUPROFEN 800 MG TABS 1 tab every 8 hours as needed for pain 2013 IBUPROFEN 800 MG TABS 755251 IBUPROFEN Inactive COLACE 100 MG CAP 1 po BID PRN Constipation COLACE 100 MG CAP 0723689 DOCUSATE SODIUM Inactive MELOXICAM 15 MG TABS 1 po qd PRN Knee Pain MELOXICAM 15 MG TABS 891183 MELOXICAM Inactive LEVEMIR FLEXPEN 100 UNIT/ML SOLN 40 units SC at bedtime LEVEMIR FLEXPEN 100 UNIT/ML SOLN INSULIN DETEMIR Inactive GENTAMICIN SULFATE 0.1 % EXT OINT Apply to open sores once a day. GENTAMICIN SULFATE 0.1 % EXT OINT 479881 GENTAMICIN SULFATE Inactive EMBRACE BLOOD GLUCOSE TEST STRP Test blood sugars 4 times daily and PRN 08/05 EMBRACE BLOOD GLUCOSE TEST STRP GLUCOSE BLOOD Inactive ACYCLOVIR 400 MG TABS 1 po qd ACYCLOVIR 400 MG TABS 371675 ACYCLOVIR Inactive AZITHROMYCIN 250 MG TABS take 2 po day 1 then take1 po days 2-5 AZITHROMYCIN 250 MG TABS 5965260 AZITHROMYCIN Inactive AZITHROMYCIN 250 MG TABS 2 po qd x 1 day, then 1 po qd x 4 days AZITHROMYCIN 250 MG TABS 2282340 AZITHROMYCIN Inactive ACYCLOVIR 400 MG TABS 1 [...] twice daily BACTRIM DS 800-160 MG TAB 619925 TRIMETHOPRIM-SULFAMETHOXAZOLE Inactive Advance Directives Directive Description Start Date PERMISSION TO SHARE Vital Signs Date Name Value Unit Range Description blood pressure, diastolic - 8462-4 63 mm[Hg] [...] HGBA1C - Chemistry sodium, serum 134 mmol/L 555-860 2387/03/16 carbon dioxide, venous blood 34.5 mmol/L 21.0-32.0 potassium, serum 4.6 mmol/L 3.5-5.2 chloride, serum 93 mmol/L 98-107 blood glucose 408 mg/dL 65-110 urea nitrogen, blood 3 mg/dL 7-18 creatinine, serum 0.58 mg/dL 0.55-1.30 alanine aminotransferase (SGPT), serum 11 U/L 12-78 aspartate aminotransferase (SGOT), serum 8 U/L 15-37 calcium, serum 9.2 mg/dL 8.5-10.1 bilirubin, serum, total 0.30 mg/dL 0.00-1.00 cholesterol, serum 195 mg/dL 618-852 9623/03/16 triglyceride, serum, fasting 138 mg/dL 30-200 HDL [...] Panel - Chemistry sodium, serum 133 mmol/L 711-304 1928/06/03 carbon dioxide, venous blood 33.4 mmol/L 21.0-32.0 [...] pH, urine, semiquantitative 5.5 5.0-8.5 Lab Report: [facility] [place] - Chemistry human [...] Yes Encounters Code Encounter Date Provider Facility CPT-34023 Level 3 Est. Patient 14:46:22 CDT Da Romero APRN [facility] CPT-72611 Level 4 Est. Patient 13:55:20 CDT Ang Markham MD [facility] CPT-95323 Level 4 Est. Patient 16:10:09 CDT Celestine PEARCE [facility] CPT-12641 Level 3 Est. Patient 13:51:24 CDT Ang Markham MD [facility] CPT-92787 Level 3 Est. Patient 18:42:15 CDT Gabriel Hunt [facility] CPT-60446 Level 5 Est. Patient 14:40:14 CDT Gagestephensonia Hoganisrael PEARCE [facility] CPT-55902 Level 4 Est. Patient 14:36:17 CDT Ang Markham MD [facility] CPT-56366 Level 3 Est. Patient 11:13:47 DIET THERAPIST Ang Markham MD [facility] CPT-69569 Level 3 Est. Patient 11:59:20 DIET THERAPIST Gloria Dunbar [facility] CPT-66499 Level 3 Est. Patient 17:32:37 DIET THERAPIST Gloria Dunbar [facility] CPT-42570 Level 4 Est. Patient 16:39:07 CDT Ang Markham MD [facility] CPT-49136 Level 3 Est. Patient 16:35:50 CDT Ang Markham MD [facility] CPT-06217 Level 4 Est. Patient 13:53:06 DIET THERAPIST Ang Markham MD [facility] CPT-61107 Level 3 Est. Patient 08:58:08 DIET THERAPIST Ang Markham MD [facility] CPT-75980 Level 3 Est. Patient 18:48:29 CDT Anthony Whitfield [facility] CPT-28009 Level 3 Est. Patient 12:16:59 CDT Gabriel Hunt DO [facility] CPT-89447 Level 3 Est. Patient 18:57:15 CDT Anthony Whitfield [facility] CPT-20722 Level 3 Est. Patient 13:59:22 DIET THERAPIST Ang Markham MD [facility] CPT-24425 Level 4 Est. Patient 10:36:08 DIET THERAPIST Ang Markham MD [facility] CPT-34789 Level 3 Est. Patient 16:27:02 CDT Eri Borges MD PhD [facility] CPT-84467 Level 3 Est. Patient 10:36:43 CDT Octaviano CARBONE [facility] CPT-16927 Level 4 New Patient 08:58:06 CDT Ang Markham MD [facility] Procedures Code Procedure Name Date Entry Date Standard Description CPT-97006 Abd compl w upright - XRAY USE ONLY 14:09:39 CDT 02/28 CPT-22092 Venipuncture Draw Fee 12:25:15 CDT CPT-92754 Knee 3V 16:48:40 CDT CPT-OV Office Visit 16:27:13 CDT CPT-OV Office Visit 16:21:19 CDT CPT-65655 Sono pelvis non OB uterus ovaries cervix 09:37:28 CDT
--- OUTSIDE RECORDS SUMMARY | 2018-12-22 01:40 | XMS REPORT | Clinical Summary ---
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 Lumbago Pharyngitis, acute / sore throat 462 [...] I, with hypoglycemia ICD-250.81 Nathan Markham MD half-way use 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 ICD-V58.67 Nathan Markham MD Abdominal pain ICD-789.00 Nathan Markham MD Hematochezia ICD-578.1 Nathan Markham MD Nausea ICD-787.02 Inactive Ang Markham MD 06/26 Otitis externa, acute, left ICD-380.12 Inactive Ang Markham MD Medication List Medication Instructions Start Date Stop Date Generic Name NDC Status Provider Patient Instruction COLACE 100 MG CAP 1 po daily DOCUSATE SODIUM [id number] No Longer Active Jillina Frazell SCALE RECLAMATION TENDER Active CARAFATE 1 GM/10ML ORAL SUSP 5 mg four times daily SUCRALFATE 97790714547 Active Jillina Frazell SCALE RECLAMATION TENDER Active ZANTAC 150 MG TAB 1 po BID RANITIDINE HCL 34777584818 No Longer Active Jillina Frazell SCALE RECLAMATION TENDER Active HYDROXYZINE HCL 25 MG TAB 1 TID PRN nerves HYDROXYZINE HCL 75920200877 No Longer Active Jillina Frazell SCALE RECLAMATION TENDER Active CLINDAMYCIN HCL 300 MG ORAL CAPS 1 four times a day CLINDAMYCIN HCL 14550388359 No Longer Active Jillina Frazell SCALE RECLAMATION TENDER Active TYLENOL WITH CODEINE #3 300-30 MG TABS 1 every four hours as needed for pain ACETAMINOPHEN-CODEINE 39807276479 Active Conner Hills MD Active LEVAQUIN 500 MG TABS 1 daily for infection LEVOFLOXACIN 73034199433 No Longer Active Conner Hills MD Active DOXEPIN HCL 10 MG CAP 1 tablet nightly for the itch DOXEPIN HCL 78593895296 No Longer Active Conner Hills MD Active TRESIBA FLEXTOUCH 200 UNIT/ML SC SOPN Take 70 units daily at mid-night to 1 am. INSULIN DEGLUDEC 37975981115 No Longer Active Conner Hills MD Active METFORMIN HCL 1000 MG TABS 1 tablet by mouth twice daily METFORMIN HCL 57952686562 No Longer Active Conner Hills MD Active LIPITOR 40 MG TAB 1 po qHS ATORVASTATIN CALCIUM 84772101759 No Longer Active Conner Hills MD Active GEMFIBROZIL 600 MG TABS 1 po BID GEMFIBROZIL 11575085583 No Longer Active Conner Hills MD Active CORTISPORIN 3.5-49771-0 SOLN 4gtts in affected ear QID x 7 days [id number] 55160451058 No Longer Active Ang Markham MD Active LEVEMIR FLEXTOUCH 100 UNIT/ML SC SOPN 35 units SC at 12-1pm, 35 units 12-1am INSULIN DETEMIR 19904123457 No Longer Active Celestine PEARCE Active REGLAN 10 MG TAB 0.5 po TID 30min prior to meals METOCLOPRAMIDE HCL 74526416445 Active Ang Markham MD Active NOVOLOG FLEXPEN 100 UNIT/ML SOPN Take 20 units TID with meals, plus 2u/50 for blood sugars above 150. Ratio vs. Carbs INSULIN ASPART 46306487341 Active Gabriel Hunt DO Active BD PEN NEEDLE DINESH U/F 32G X 4 MM MISC 5 a day INSULIN PEN NEEDLE 15905509375 Active Malstepheneh Ziglari BELLOWS CHARGER ASSEMBLER Active EMBRACE BLOOD GLUCOSE TEST STRP Test blood sugars 4 times daily and PRN 08/05 GLUCOSE BLOOD 22169140569 No Longer Active Malstepheneh Rigoglari BELLOWS CHARGER ASSEMBLER Active TRUEPLUS LANCETS 30G MISC 4 a day LANCETS 70874583512 Active Maliheh Ziglari BELLOWS CHARGER ASSEMBLER Active TRUETEST TEST STRP check blood sugars 4x/day GLUCOSE BLOOD 75939666464 Active Maliheh Ziglari BELLOWS CHARGER ASSEMBLER Active TRUERESULT BLOOD GLUCOSE W/DEVICE KIT check blood sugars 4x a day BLOOD GLUCOSE MONITORING SUPPL 40008622937 Active Malstepheneh Ziglari BELLOWS CHARGER ASSEMBLER Active LISINOPRIL 5 MG TABS 1 po qd LISINOPRIL 74535474791 Active Ang Markham MD Active PAXIL 20 MG TAB 1 tablet by mouth daily PAROXETINE HCL 10323366595 Active Ang Markham MD Active GENTAMICIN SULFATE 0.1 % EXT OINT Apply to open sores once a day. GENTAMICIN SULFATE 87366890147 No Longer Active Ang Markham MD Active ZOLPIDEM TARTRATE 10 MG TABS 1 po qHS PRN Insomnia ZOLPIDEM TARTRATE 54936023550 Active Ang Markham MD Active BACTRIM DS 800-160 MG TAB 1 tab by mouth twice daily TRIMETHOPRIM-SULFAMETHOXAZOLE 98202443495 No Longer Active Gloria Yokum SCALE RECLAMATION TENDER Active LEVEMIR FLEXPEN 100 UNIT/ML SOLN 40 units SC at bedtime INSULIN DETEMIR No Longer Active Susan Adan RMA Active INSUPEN ULTRAFIN 31G X 6 MM MISC Use with insulin qid. DX: E11.9 INSULIN PEN NEEDLE 04817348199 Active Ang Markham MD Active ZOLOFT 100 MG TAB 1 po qHS SERTRALINE HCL 25734635786 No Longer Active Ang Markham MD Active MELOXICAM 15 MG TABS 1 po qd PRN Knee Pain MELOXICAM 28599457686 No Longer Active Ang Markham MD Active CYCLOBENZAPRINE HCL 5 MG TABS 1 po qHS PRN Muscle pain CYCLOBENZAPRINE HCL 93652051902 Active Ang Markham MD Active COLACE 100 MG CAP 1 po BID PRN Constipation DOCUSATE SODIUM 50993346596 No Longer Active Ang Markham MD Active IBUPROFEN 800 MG TABS 1 tab every 8 hours as needed for pain 2013 IBUPROFEN 59935125936 No Longer Active Ang Markham MD Active NITROFURANTOIN MACROCRYSTAL 100 MG CAPS 1 capsule PO bid x 7 days NITROFURANTOIN MACROCRYSTAL 91238620260 No Longer Active Ang Markham MD Active DIFLUCAN 150 MG TAB 1 qODay x 2 doses FLUCONAZOLE 28925930267 No Longer Active Da Romero APRN Active CEFTIN 500 MG TAB 1 tablet by mouth twice daily for 7 days 07/24 CEFUROXIME AXETIL 25842138524 No Longer Active Anthony CARBONE Active ZOLOFT 50 MG TAB 1 tablet by mouth daily SERTRALINE HCL 82429565155 No Longer Active Anthony CARBONE Active ANUSOL-HC 2.5 % CREAM apply as needed HYDROCORTISONE (RECTAL) 55586141288 No Longer Active Anthony CARBONE Active COLACE 100 MG CAP 1 tab PO BID DOCUSATE SODIUM 32513675529 No Longer Active Anthony CARBONE Active TRINESSA (28) 0.18/0.215/0.25 MG-35 MCG TABS 1 po qd as directed NORGESTIM-ETH ESTRAD TRIPHASIC 98169835098 No Longer Active Anthony CARBONE Active [facility] MELATONIN 5 MG TABS 1-2 po qHS PRN Insomnia MELATONIN 51007425628 No Longer Active Anthony CARBONE Active ACYCLOVIR 400 MG TABS ACYCLOVIR 45694075333 No Longer Active Ang Markham MD Active HYDROXYZINE HCL 25 MG TABS 1 tab PO tid PRN itching HYDROXYZINE HCL 10500481853 No Longer Active Ang Markham MD Active DIFLUCAN 150 MG TAB 1 qODay x 2 doses FLUCONAZOLE 28794142973 No Longer Active Da Romero APRN Active ACYCLOVIR 400 MG TABS 1 pill twice daily ACYCLOVIR 68410820966 No Longer Active Josephllpiedad Romero APRN Active AZITHROMYCIN 250 MG TABS 2 po qd x 1 day, then 1 po qd x 4 days AZITHROMYCIN 32168518842 No Longer Active Eri Borges MD PhD Active AZITHROMYCIN 250 MG TABS take 2 po day 1 then take1 po days 2-5 AZITHROMYCIN 32531472387 No Longer Active Octaviano CARBONE Active ACYCLOVIR 400 MG TABS 1 po qd ACYCLOVIR 30169588387 No Longer Active Ang Markham MD Active PROZAC 40 MG CAPS 1 cap by mouth at bedtime FLUOXETINE HCL 16290772993 No Longer Active Ang Markham MD Active HYDROXYZINE HCL 25 MG TABS 1 tab PO tid PRN itching HYDROXYZINE HCL 25 MG TABS 597260 HYDROXYZINE HCL Inactive [facility] MELATONIN 5 MG TABS 1-2 po qHS PRN Insomnia [facility] MELATONIN 5 MG TABS 856045 MELATONIN Inactive TRINESSA (28) 0.18/0.215/0.25 MG-35 MCG TABS 1 po qd as directed TRINESSA (28) 0.18/0.215/0.25 MG-35 MCG TABS 147451 NORGESTIM-ETH ESTRAD TRIPHASIC Inactive COLACE 100 MG CAP 1 tab PO BID COLACE 100 MG CAP 8687816 DOCUSATE SODIUM Inactive ANUSOL-HC 2.5 % CREAM apply as needed ANUSOL-HC 2.5 % CREAM 589485 HYDROCORTISONE (RECTAL) Inactive ZOLOFT 50 MG TAB 1 tablet by mouth daily ZOLOFT 50 MG TAB 235491 SERTRALINE HCL Inactive CEFTIN 500 MG TAB 1 tablet by mouth twice daily for 7 days 07/24 CEFTIN 500 MG TAB 826901 CEFUROXIME AXETIL Inactive NITROFURANTOIN MACROCRYSTAL 100 MG CAPS 1 capsule PO bid x 7 days NITROFURANTOIN MACROCRYSTAL 100 MG CAPS 1767846 NITROFURANTOIN MACROCRYSTAL Inactive IBUPROFEN 800 MG TABS 1 tab every 8 hours as needed for pain 2013 IBUPROFEN 800 MG TABS 841818 IBUPROFEN Inactive COLACE 100 MG CAP 1 po BID PRN Constipation COLACE 100 MG CAP 2363010 DOCUSATE SODIUM Inactive MELOXICAM 15 MG TABS 1 po qd PRN Knee Pain MELOXICAM 15 MG TABS 875299 MELOXICAM Inactive LEVEMIR FLEXPEN 100 UNIT/ML SOLN 40 units SC at bedtime LEVEMIR FLEXPEN 100 UNIT/ML SOLN INSULIN DETEMIR Inactive GENTAMICIN SULFATE 0.1 % EXT OINT Apply to open sores once a day. GENTAMICIN SULFATE 0.1 % EXT OINT 376501 GENTAMICIN SULFATE Inactive EMBRACE BLOOD GLUCOSE TEST STRP Test blood sugars 4 times daily and PRN 08/05 EMBRACE BLOOD GLUCOSE TEST STRP GLUCOSE BLOOD Inactive LEVEMIR FLEXTOUCH 100 UNIT/ML SC SOPN 35 units SC at 12-1pm, 35 units 12-1am LEVEMIR FLEXTOUCH 100 UNIT/ML SC SOPN INSULIN DETEMIR Inactive CORTISPORIN 3.5-93017-7 SOLN 4gtts in affected ear QID x 7 days CORTISPORIN 3.5-39861-4 SOLN 966957 [id number] Inactive GEMFIBROZIL 600 MG TABS 1 po BID GEMFIBROZIL 600 MG TABS 921605 GEMFIBROZIL Inactive LIPITOR 40 MG TAB 1 po qHS LIPITOR 40 MG TAB 680310 ATORVASTATIN CALCIUM Inactive METFORMIN HCL 1000 MG TABS 1 tablet by mouth twice daily METFORMIN HCL 1000 MG TABS 465005 METFORMIN HCL Inactive TRESIBA FLEXTOUCH 200 UNIT/ML SC SOPN Take 70 units daily at mid-night to 1 am. TRESIBA FLEXTOUCH 200 UNIT/ML SC SOPN INSULIN DEGLUDEC Inactive DOXEPIN HCL 10 MG CAP 1 tablet nightly for the itch DOXEPIN HCL 10 MG CAP 4713681 DOXEPIN HCL Inactive LEVAQUIN 500 MG TABS 1 daily for infection LEVAQUIN 500 MG TABS 896320 LEVOFLOXACIN Inactive CLINDAMYCIN HCL 300 MG ORAL CAPS 1 four times a day CLINDAMYCIN HCL 300 MG ORAL CAPS 685169 CLINDAMYCIN HCL Inactive HYDROXYZINE HCL 25 MG TAB 1 TID PRN nerves HYDROXYZINE HCL 25 MG TAB 578022 HYDROXYZINE HCL Inactive ZANTAC 150 MG TAB 1 po BID ZANTAC 150 MG TAB 620376 RANITIDINE HCL Inactive COLACE 100 MG CAP 1 po daily COLACE 100 MG CAP 8464058 DOCUSATE SODIUM Inactive ACYCLOVIR 400 MG TABS 1 po qd ACYCLOVIR 400 MG TABS 19720928 ACYCLOVIR Inactive AZITHROMYCIN 250 MG TABS take 2 po day 1 then take1 po days 2-5 AZITHROMYCIN 250 MG TABS 847637 AZITHROMYCIN Inactive AZITHROMYCIN 250 MG TABS 2 po qd x 1 day, then 1 po qd x 4 days AZITHROMYCIN 250 MG TABS 507039 AZITHROMYCIN Inactive ACYCLOVIR 400 MG TABS 1 pill twice daily ACYCLOVIR 400 MG TABS 19720928 ACYCLOVIR Inactive DIFLUCAN 150 MG TAB 1 qODay x 2 doses DIFLUCAN 150 MG TAB 19760606 FLUCONAZOLE Inactive ACYCLOVIR 400 MG TABS ACYCLOVIR 400 MG TABS 19720928 ACYCLOVIR Inactive DIFLUCAN 150 MG TAB 1 qODay x 2 doses DIFLUCAN 150 MG TAB 510640 FLUCONAZOLE Inactive BACTRIM DS 800-160 MG TAB 1 tab by mouth twice daily BACTRIM DS 800-160 MG TAB 452795 TRIMETHOPRIM-SULFAMETHOXAZOLE Inactive Advance Directives Directive Description Start [...] 0.30 mg/dL 0.00-1.00 cholesterol, serum 221 mg/dL 285-561 3850/10/12 triglyceride, serum, fasting 590 mg/dL 30-200 HDL cholesterol, serum 45 mg/dL 32-96 LDL cholesterol, serum 58 mg/dL 0-130 blood glucose 547 mg/dL 65-110 chloride, serum 91 mmol/L 98-107 potassium, serum 3.9 mmol/L 3.5-5.2 carbon dioxide, venous blood 28.1 mmol/L 21.0-32.0 sodium, serum 130 mmol/L 136-145 Encounters Code Encounter Date Provider Facility CPT-87975 Level 3 Est. Patient 14:52:33 CDT Da Romero [facility] CPT-89990 Level 3 Est. Patient 10:22:30 CDT Conner Hills MD [facility] CPT-28284 Level 3 Est. Patient 15:02:19 CDT Shreya Velazquez [facility] CPT-22646 Level 3 Est. Patient 13:22:25 CDT Gabriel Hunt [facility] CPT-92915 Level 4 Est. Patient 16:02:22 CDT Ang Markham MD [facility] CPT-38655 Level 3 Est. Patient 16:21:23 CDT Celestine [facility] CPT-39236 Level 3 Est. Patient 17:02:56 CDT Gabriel Hunt [facility] CPT-50740 Level 3 Est. Patient 14:46:22 CDT Da Romero [facility] CPT-47195 Level 4 Est. Patient 13:55:20 CDT Ang Markham MD [facility] CPT-33734 Level 4 Est. Patient 16:10:09 CDT Celestine [facility] CPT-78261 Level 3 Est. Patient 13:51:24 CDT Ang Markham MD [facility] CPT-96446 Level 3 Est. Patient 18:42:15 CDT Gabriel Hunt [facility] CPT-93308 Level 5 Est. Patient 14:40:14 CDT Celestine Huerta RAMSES [facility] CPT-16597 Level 4 Est. Patient 14:36:17 CDT Ang Markham MD [facility] CPT-95471 Level 3 Est. Patient 11:13:47 CAB STARTER Ang Markham MD [facility] CPT-66634 Level 3 Est. Patient 11:59:20 CAB STARTER Gloria Dunbar [facility] CPT-14005 Level 3 Est. Patient 17:32:37 CAB STARTER Gloria Dunbar [facility] CPT-86687 Level 4 Est. Patient 16:39:07 CDT Ang Markham MD [facility] CPT-35086 Level 3 Est. Patient 16:35:50 CDT Ang Markham MD [facility] CPT-88003 Level 4 Est. Patient 13:53:06 CAB STARTER Ang Markham MD [facility] CPT-96111 Level 3 Est. Patient 08:58:08 CAB STARTER Ang Markham MD [facility] CPT-80883 Level 3 Est. Patient 18:48:29 CDT Anthony Whtifield [facility] CPT-42742 Level 3 Est. Patient 12:16:59 CDT Gabriel Hunt DO [facility] CPT-21649 Level 3 Est. Patient 18:57:15 CDT Anthony Whitfield [facility] CPT-12019 Level 3 Est. Patient 13:59:22 CAB STARTER Ang Markham MD [facility] CPT-41181 Level 4 Est. Patient 10:36:08 CAB STARTER Ang Markham MD [facility] CPT-14064 Level 3 Est. Patient 16:27:02 CDT Eri Borges MD PhD [facility] CPT-89324 Level 3 Est. Patient 10:36:43 CDT Octaviano CARBONE [facility] CPT-92021 Level 4 New Patient 08:58:06 CDT Ang Markham MD [facility] Procedures Code Procedure Name Date Entry Date Standard Description CPT-93402 LS spine comp w obliques - XRAY USE ONLY 15:34:48 CDT CPT-69580 Lipid - LAB USE ONLY 15:28:39 CDT CPT-14274 CMP - LAB USE ONLY 15:28:39 CDT CPT-13774 Venipuncture Draw Fee 15:28:39 CDT CPT-31258 Abd compl w upright - XRAY USE ONLY 14:09:39 CDT 02/28 CPT-30407 Venipuncture Draw Fee 12:25:15 CDT CPT-81730 Knee 3V 16:48:40 CDT CPT-OV Office Visit 16:27:13 CDT CPT-OV Office Visit 16:21:19 CDT CPT-74527 Sono pelvis non OB uterus ovaries cervix 09:37:28 CDT
--- OUTSIDE RECORDS SUMMARY | 2018-12-22 01:41 | XMS REPORT | Clinical Summary ---
Author Author Admin, QIE Organization [employer] Address Unknown Phone Unavailable Allergies, Adverse Reactions, [...] of menstruation Health screening V70.0 Active Ang Markhma MD Routine general medical examination at a health care facility Cellulitis, ankle, left 682.6 Resolved Ang Markham MD Cellulitis and abscess of leg, except foot Microalbuminuria 791.0 Active Ang Markham MD Proteinuria AMENORRHEA ICD-626.0 Inactive Eri Borges MD PhD [...] MD Amenorrhea ICD-626.0 Inactive Ang Markham MD SINUSITIS, ACUTE ICD-461.9 Inactive Ang Markham MD DEPRESSION ICD-311 Inactive Ang Markham MD Cellulitis, ankle, left ICD-682.6 Inactive Ang Markham MD Medication List Medication Instructions Start Date Stop Date Generic Name NDC Status Provider Patient Instruction LISINOPRIL 5 MG TABS 1 po qd LISINOPRIL 34304682580 Active Ang Markham MD Active NOVOLOG FLEXPEN 100 UNIT/ML SOPN Take 20 units TID with meals INSULIN ASPART 47817487485 Active Ang Markham MD Active LEVEMIR FLEXTOUCH 100 UNIT/ML SC SOPN 60 units SC nightly INSULIN DETEMIR 55662317710 Active Codey Hdez MD Active COLACE 100 MG CAP 1 po BID PRN Constipation DOCUSATE SODIUM 39668377336 Active Ang Markham MD Active PAXIL 20 MG TAB 1 tablet by mouth daily PAROXETINE HCL 53254620330 Active Ang Markham MD Active GENTAMICIN SULFATE 0.1 % EXT OINT Apply to open sores once a day. GENTAMICIN SULFATE 19855996042 No Longer Active Ang Markham MD Active ZOLPIDEM TARTRATE 10 MG TABS 1 po qHS PRN Insomnia ZOLPIDEM TARTRATE 64563341420 Active Ang Markham MD Active BACTRIM DS 800-160 MG TAB 1 tab by mouth twice daily TRIMETHOPRIM-SULFAMETHOXAZOLE 80549605801 No Longer Active Gloriajuliette Dunbar RN ACLS Active LEVEMIR FLEXPEN 100 UNIT/ML SOLN 40 units SC at bedtime INSULIN DETEMIR No Longer Active Susankalen Arellano RMA Active INSUPEN ULTRAFIN 31G X 6 MM MISC Use with insulin qid. DX: E11.9 INSULIN PEN NEEDLE 57803234592 Active Ang Markham MD Active ZOLOFT 100 MG TAB 1 po qHS SERTRALINE HCL 71143975214 No Longer Active Ang Markham MD Active MELOXICAM 15 MG TABS 1 po qd PRN Knee Pain MELOXICAM 53319314895 No Longer Active Ang Markham MD Active LIPITOR 40 MG TAB 1 po qHS ATORVASTATIN CALCIUM 04765812172 Active Ang Markham MD Active METFORMIN HCL 1000 MG TABS 1 tablet by mouth twice daily METFORMIN HCL 73740601610 Active Ang Markham MD Active CYCLOBENZAPRINE HCL 5 MG TABS 1 po qHS PRN Muscle pain CYCLOBENZAPRINE HCL 61561271478 Active Ang Markham MD Active COLACE 100 MG CAP 1 po BID PRN Constipation DOCUSATE SODIUM 52405871507 No Longer Active Ang Markham MD Active HYDROXYZINE HCL 25 MG TAB 1 TID PRN nerves HYDROXYZINE HCL 90087874687 Active Ang Markham MD Active IBUPROFEN 800 MG TABS 1 tab every 8 hours as needed for pain 2013 IBUPROFEN 19906001778 No Longer Active Ang Markham MD Active NITROFURANTOIN MACROCRYSTAL 100 MG CAPS 1 capsule PO bid x 7 days NITROFURANTOIN MACROCRYSTAL 73118506970 No Longer Active Ang Markham MD Active DIFLUCAN 150 MG TAB 1 qODay x 2 doses FLUCONAZOLE 63283031944 No Longer Active Da Romero APRN Active CEFTIN 500 MG TAB 1 tablet by mouth twice daily for 7 days 07/24 CEFUROXIME AXETIL 02910935018 No Longer Active Anthony CARBONE Active ZOLOFT 50 MG TAB 1 tablet by mouth daily SERTRALINE HCL 45745854838 No Longer Active Anthony CARBONE Active ANUSOL-HC 2.5 % CREAM apply as needed HYDROCORTISONE (RECTAL) 46478821006 No Longer Active Anthony CARBONE Active COLACE 100 MG CAP 1 tab PO BID DOCUSATE SODIUM 70261026645 No Longer Active Anthony CARBONE Active TRINESSA (28) 0.18/0.215/0.25 MG-35 MCG TABS 1 po qd as directed NORGESTIM-ETH ESTRAD TRIPHASIC 36667617734 No Longer Active Anthony CARBONE Active [facility] MELATONIN 5 MG TABS 1-2 po qHS PRN Insomnia MELATONIN 70363488421 No Longer Active Anthony CARBONE Active ACYCLOVIR 400 MG TABS ACYCLOVIR 40052058017 No Longer Active Ang Markham MD Active EMBRACE BLOOD GLUCOSE TEST STRP Test blood sugars 4 times daily and PRN 08/05 GLUCOSE BLOOD 10452100942 Active Ang Markham MD Active HYDROXYZINE HCL 25 MG TABS 1 tab PO tid PRN itching HYDROXYZINE HCL 91331721640 No Longer Active Ang Markham MD Active DIFLUCAN 150 MG TAB 1 qODay x 2 doses FLUCONAZOLE 63955695829 No Longer Active Jillina Frazell RN ACLS Active ACYCLOVIR 400 MG TABS 1 pill twice daily ACYCLOVIR 85222636506 No Longer Active Da Romero APRN Active AZITHROMYCIN 250 MG TABS 2 po qd x 1 day, then 1 po qd x 4 days AZITHROMYCIN 55437881635 No Longer Active Eri Borges MD PhD Active AZITHROMYCIN 250 MG TABS take 2 po day 1 then take1 po days 2-5 AZITHROMYCIN 76492127195 No Longer Active Octaviano Dempsey PA Active ACYCLOVIR 400 MG TABS 1 po qd ACYCLOVIR 32215737639 No Longer Active Ang Markham MD Active PROZAC 40 MG CAPS 1 cap by mouth at bedtime FLUOXETINE HCL 93210548440 No Longer Active Ang Markham MD Active HYDROXYZINE HCL 25 MG TABS 1 tab PO tid PRN itching HYDROXYZINE HCL 25 MG TABS 340203 HYDROXYZINE HCL Inactive [facility] MELATONIN 5 MG TABS 1-2 po qHS PRN Insomnia [facility] MELATONIN 5 MG TABS 913836 MELATONIN Inactive TRINESSA (28) 0.18/0.215/0.25 MG-35 MCG TABS 1 po qd as directed TRINESSA (28) 0.18/0.215/0.25 MG-35 MCG TABS 930865 NORGESTIM-ETH ESTRAD TRIPHASIC Inactive COLACE 100 MG CAP 1 tab PO BID COLACE 100 MG CAP 4979580 DOCUSATE SODIUM Inactive ANUSOL-HC 2.5 % CREAM apply as needed ANUSOL-HC 2.5 % CREAM 168631 HYDROCORTISONE (RECTAL) Inactive ZOLOFT 50 MG TAB 1 tablet by mouth daily ZOLOFT 50 MG TAB 993255 SERTRALINE HCL Inactive CEFTIN 500 MG TAB 1 tablet by mouth twice daily for 7 days 07/24 CEFTIN 500 MG TAB 644212 CEFUROXIME AXETIL Inactive NITROFURANTOIN MACROCRYSTAL 100 MG CAPS 1 capsule PO bid x 7 days NITROFURANTOIN MACROCRYSTAL 100 MG CAPS 1265050 NITROFURANTOIN MACROCRYSTAL Inactive IBUPROFEN 800 MG TABS 1 tab every 8 hours as needed for pain 2013 IBUPROFEN 800 MG TABS 768414 IBUPROFEN Inactive COLACE 100 MG CAP 1 po BID PRN Constipation COLACE 100 MG CAP 9756421 DOCUSATE SODIUM Inactive MELOXICAM 15 MG TABS 1 po qd PRN Knee Pain MELOXICAM 15 MG TABS 895709 MELOXICAM Inactive LEVEMIR FLEXPEN 100 UNIT/ML SOLN 40 units SC at bedtime LEVEMIR FLEXPEN 100 UNIT/ML SOLN INSULIN DETEMIR Inactive GENTAMICIN SULFATE 0.1 % EXT OINT Apply to open sores once a day. GENTAMICIN SULFATE 0.1 % EXT OINT 528853 GENTAMICIN SULFATE Inactive ACYCLOVIR 400 MG TABS 1 po qd ACYCLOVIR 400 MG TABS 19720928 ACYCLOVIR Inactive AZITHROMYCIN 250 MG TABS take 2 po day 1 then take1 po days 2-5 AZITHROMYCIN 250 MG TABS 7074537 AZITHROMYCIN Inactive AZITHROMYCIN 250 MG TABS 2 po qd x 1 day, then 1 po qd x 4 days AZITHROMYCIN 250 MG TABS 6816193 AZITHROMYCIN Inactive ACYCLOVIR 400 MG TABS 1 pill twice daily ACYCLOVIR 400 MG TABS 19720928 ACYCLOVIR Inactive DIFLUCAN 150 MG TAB 1 qODay x 2 doses DIFLUCAN 150 MG TAB 571425 FLUCONAZOLE Inactive ACYCLOVIR 400 MG TABS ACYCLOVIR 400 MG TABS 251994 ACYCLOVIR Inactive DIFLUCAN 150 MG TAB 1 qODay x 2 doses DIFLUCAN 150 MG TAB 19760606 FLUCONAZOLE Inactive BACTRIM DS 800-160 MG TAB 1 tab by mouth twice daily BACTRIM DS 800-160 MG TAB 684795 TRIMETHOPRIM-SULFAMETHOXAZOLE Inactive Advance Directives Directive Description Start [...] HGBA1C - Chemistry sodium, serum 134 mmol/L 459-929 5365/03/16 carbon dioxide, venous blood 34.5 mmol/L 21.0-32.0 potassium, serum 4.6 mmol/L 3.5-5.2 chloride, serum 93 mmol/L 98-107 blood glucose 408 mg/dL 65-110 urea nitrogen, blood 3 mg/dL 7-18 creatinine, serum 0.58 mg/dL 0.55-1.30 alanine aminotransferase (SGPT), serum 11 U/L 12-78 aspartate aminotransferase (SGOT), serum 8 U/L 15-37 calcium, serum 9.2 mg/dL 8.5-10.1 bilirubin, serum, total 0.30 mg/dL 0.00-1.00 cholesterol, serum 195 mg/dL 945-195 3847/03/16 triglyceride, serum, fasting 138 mg/dL 30-200 HDL [...] 0-19 Encounters Code Encounter Date Provider Facility CPT-73657 Level 4 Est. Patient 14:36:17 CDT Ang Markham MD [facility] CPT-59446 Level 3 Est. Patient 11:13:47 WORD PROCESSING SUPERVISOR Ang Markham MD [facility] CPT-00491 Level 3 Est. Patient 11:59:20 WORD PROCESSING SUPERVISOR Gloria Dunbar [facility] CPT-24653 Level 3 Est. Patient 17:32:37 WORD PROCESSING SUPERVISOR Gloria Dunbar [facility] CPT-65693 Level 4 Est. Patient 16:39:07 CDT Ang Markham MD [facility] CPT-79881 Level 3 Est. Patient 16:35:50 CDT Ang Markham MD [facility] CPT-12336 Level 4 Est. Patient 13:53:06 WORD PROCESSING SUPERVISOR Ang Markham MD [facility] CPT-93344 Level 3 Est. Patient 08:58:08 WORD PROCESSING SUPERVISOR Ang Markham MD [facility] CPT-79576 Level 3 Est. Patient 18:48:29 CDT Anthony Whitfield [facility] CPT-64072 Level 3 Est. Patient 12:16:59 CDT Gabriel Hunt DO [facility] CPT-68585 Level 3 Est. Patient 18:57:15 CDT Anthony Whitfield [facility] CPT-46651 Level 3 Est. Patient 13:59:22 WORD PROCESSING SUPERVISOR Ang Markham MD [facility] CPT-73225 Level 4 Est. Patient 10:36:08 WORD PROCESSING SUPERVISOR Ang Markham MD [facility] CPT-06323 Level 3 Est. Patient 16:27:02 CDT Eri Borges MD [facility] CPT-61237 Level 3 Est. Patient 10:36:43 CDT Octaviano Roselyn [facility] CPT-60389 Level 4 New Patient 08:58:06 CDT Ang Markham MD [facility] Procedures Code Procedure Name Date Entry Date Standard Description CPT-22072 Venipuncture Draw Fee 12:25:15 CDT CPT-54857 Knee 3V 16:48:40 CDT CPT-OV Office Visit 16:27:13 CDT CPT-OV Office Visit 16:21:19 CDT CPT-62182 Sono pelvis non OB uterus ovaries cervix 09:37:28 CDT
--- OUTSIDE RECORDS SUMMARY | 2018-12-22 01:42 | XMS REPORT | Clinical Summary ---
Author Author Admin, ALEXANDER Organization [facility] Address Unknown Phone Unavailable Allergies, Adverse Reactions, [...] MG TAB 1 po qHS ATORVASTATIN CALCIUM 67251694037 Active Ang Markham MD Active METFORMIN HCL 1000 MG TABS 1 tablet by mouth twice daily METFORMIN HCL 38963840956 Active Ang Markham MD Active CYCLOBENZAPRINE HCL 5 MG TABS 1 po qHS PRN Muscle pain CYCLOBENZAPRINE HCL 00495862715 Active Ang Markham MD Active MELOXICAM 15 MG TABS 1 po qd PRN Knee Pain MELOXICAM 29199155287 Active Ang Markham MD Active ZOLOFT 50 MG TAB 1 po qd SERTRALINE HCL 15206060788 Active Ang Markham MD Active COLACE 100 MG CAP 1 po BID PRN Constipation DOCUSATE SODIUM 20970375781 No Longer Active Ang Markham MD Active HYDROXYZINE HCL 25 MG TAB 1 TID PRN nerves HYDROXYZINE HCL 85008956317 Active Ang Markham MD Active IBUPROFEN 800 MG TABS 1 tab every 8 hours as needed for pain 2013 IBUPROFEN 20383026390 No Longer Active Agn Markham MD Active NITROFURANTOIN MACROCRYSTAL 100 MG CAPS 1 capsule PO bid x 7 days NITROFURANTOIN MACROCRYSTAL 17430238511 No Longer Active Ang Markham MD Active LEVEMIR FLEXPEN 100 UNIT/ML SOLN 40 units SC at bedtime INSULIN DETEMIR 41909941943 Active Ang Markham MD Active DIFLUCAN 150 MG TAB 1 qODay x 2 doses FLUCONAZOLE 66441917736 No Longer Active Da Nguyenl UNDERWEAR TRIMMER Active CEFTIN 500 MG TAB 1 tablet by mouth twice daily for 7 days 07/24 CEFUROXIME AXETIL 12003178184 No Longer Active Anthony CARBONE Active ZOLPIDEM TARTRATE 10 MG TABS 1 tab PO at hs ZOLPIDEM TARTRATE 79971608618 Active Ang Markham MD Active ZOLOFT 50 MG TAB 1 tablet by mouth daily SERTRALINE HCL 69487466004 No Longer Active Anthony CARBONE Active ANUSOL-HC 2.5 % CREAM apply as needed HYDROCORTISONE (RECTAL) 73531606765 No Longer Active Anthony CARBONE Active COLACE 100 MG CAP 1 tab PO BID DOCUSATE SODIUM 40854933453 No Longer Active Anthony CARBONE Active TRINESSA (28) 0.18/0.215/0.25 MG-35 MCG TABS 1 po qd as directed NORGESTIM-ETH ESTRAD TRIPHASIC 61499626991 No Longer Active Anthony CARBONE Active [facility] MELATONIN 5 MG TABS 1-2 po qHS PRN Insomnia MELATONIN 77516470785 No Longer Active Anthony CARBONE Active NOVOLOG FLEXPEN 100 UNIT/ML SOPN Take 18 units TID with meals INSULIN ASPART 36493100949 Active Anthony CARBONE Active ACYCLOVIR 400 MG TABS ACYCLOVIR 23834201386 No Longer Active Ang Markham MD Active EMBRACE BLOOD GLUCOSE TEST STRP Test blood sugars 4 times daily and PRN 08/05 GLUCOSE BLOOD 53647679588 Active Ang Markham MD Active HYDROXYZINE HCL 25 MG TABS 1 tab PO tid PRN itching HYDROXYZINE HCL 24424182365 No Longer Active Ang Markham MD Active DIFLUCAN 150 MG TAB 1 qODay x 2 doses FLUCONAZOLE 09390383215 No Longer Active Da Romero APRN Active ACYCLOVIR 400 MG TABS 1 pill twice daily ACYCLOVIR 29997847872 No Longer Active Jillina Nick UNDERWEAR TRIMMER Active AZITHROMYCIN 250 MG TABS 2 po qd x 1 day, then 1 po qd x 4 days AZITHROMYCIN 17523224498 No Longer Active Eri Borges MD PhD Active AZITHROMYCIN 250 MG TABS take 2 po day 1 then take1 po days 2-5 AZITHROMYCIN 44995005393 No Longer Active Octaviano CARBONE Active ACYCLOVIR 400 MG TABS 1 po qd ACYCLOVIR 79127442825 No Longer Active Ang Markham MD Active PROZAC 40 MG CAPS 1 cap by mouth at bedtime FLUOXETINE HCL 08060031041 No Longer Active Ang Markham MD Active HYDROXYZINE HCL 25 MG TABS 1 tab PO tid PRN itching HYDROXYZINE HCL 25 MG TABS 274414 HYDROXYZINE HCL Inactive [facility] MELAT[facility]IN 5 MG TABS 1-2 po qHS PRN Insomnia [facility] MELATONIN 5 MG TABS 741756 MELATONIN Inactive TRINESSA (28) 0.18/0.215/0.25 MG-35 MCG TABS 1 po qd as directed TRINESSA (28) 0.18/0.215/0.25 MG-35 MCG TABS 482051 NORGESTIM-ETH ESTRAD TRIPHASIC Inactive COLACE 100 MG CAP 1 tab PO BID COLACE 100 MG CAP 5023469 DOCUSATE SODIUM Inactive ANUSOL-HC 2.5 % CREAM apply as needed ANUSOL-HC 2.5 % CREAM 351510 HYDROCORTISONE (RECTAL) Inactive ZOLOFT 50 MG TAB 1 tablet by mouth daily ZOLOFT 50 MG TAB 488242 SERTRALINE HCL Inactive CEFTIN 500 MG TAB 1 tablet by mouth twice daily for 7 days 07/24 CEFTIN 500 MG TAB 671856 CEFUROXIME AXETIL Inactive NITROFURANTOIN MACROCRYSTAL 100 MG CAPS 1 capsule PO bid x 7 days NITROFURANTOIN MACROCRYSTAL 100 MG CAPS 242681 NITROFURANTOIN MACROCRYSTAL Inactive IBUPROFEN 800 MG TABS 1 tab every 8 hours as needed for pain 2013 IBUPROFEN 800 MG TABS 950695 IBUPROFEN Inactive COLACE 100 MG CAP 1 po BID PRN Constipation COLACE 100 MG CAP 7501662 DOCUSATE SODIUM Inactive ACYCLOVIR 400 MG TABS 1 po qd ACYCLOVIR 400 MG TABS 19720928 ACYCLOVIR Inactive AZITHROMYCIN 250 MG TABS take 2 po day 1 then take1 po days 2-5 AZITHROMYCIN 250 MG TABS 8347161 AZITHROMYCIN Inactive AZITHROMYCIN 250 MG TABS 2 po qd x 1 day, then 1 po qd x 4 days AZITHROMYCIN 250 MG TABS 3795909 AZITHROMYCIN Inactive ACYCLOVIR 400 MG TABS 1 pill twice daily ACYCLOVIR 400 MG TABS 19720928 ACYCLOVIR Inactive DIFLUCAN 150 MG TAB 1 qODay x 2 doses DIFLUCAN 150 MG TAB 472241 FLUCONAZOLE Inactive ACYCLOVIR 400 MG TABS ACYCLOVIR 400 MG TABS 19720928 ACYCLOVIR Inactive DIFLUCAN 150 MG TAB 1 qODay x 2 doses DIFLUCAN 150 MG TAB 019493 FLUCONAZOLE Inactive Advance Directives Directive Description Start [...] Lab Report: CBC W/DIFF, Comp. Metabolic Panel, [facility] - Chemistry sodium, serum 131 mmol/L 656-492 7949/10/27 potassium, serum 4.8 mmol/L 3.5-5.2 chloride, serum [...] HGBA1C - Chemistry sodium, serum 139 mmol/L 493-620 2322/02/03 potassium, serum 4.4 mmol/L 3.5-5.2 chloride, serum 98 mmol/L 98-107 carbon dioxide, venous blood 31.5 mmol/L 21.0-32.0 blood glucose 304 mg/dL 65-110 urea nitrogen, blood 10 mg/dL 7-18 creatinine, serum 0.80 mg/dL 0.60-1.30 alanine aminotransferase (SGPT), serum 23 U/L 12-78 aspartate aminotransferase (SGOT), serum 16 U/L 15-37 calcium, serum 9.4 mg/dL 8.5-10.1 bilirubin, serum, total 0.20 mg/dL 0.00-1.00 cholesterol, serum 309 mg/dL 026-842 3360/02/03 triglyceride, serum, fasting 277 mg/dL 30-200 HDL [...] 273 10^3/MM^3 10*3/mm3 142-424 Lab Report: Chlamydia/GC APTIMA/[id number] - Lab chlamydia DNA probe NOT DETECTED NOT DETECTED Lab Report: Chlamydia/GC APTIMA/[id number] - Microbiology Neisseria gonorrhoeae DNA probe NOT [...] Negative Encounters Code Encounter Date Provider Facility CPT-65938 Level 4 Est. 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 Patient 08:58:08 TRANSIT MIXER OPERATOR Ang Markham MD [facility] CPT-63363 Level 3 Est. Patient 18:48:29 CDT Anthony CARBONE [facility] CPT-86094 Level 3 Est. Patient 12:16:59 CDT Gabriel Hunt DO [facility] CPT-91685 Level 3 Est. Patient 18:57:15 CDT Anthony CARBONE [facility] CPT-26004 Level 3 Est. Patient 13:59:22 TRANSIT MIXER OPERATOR Ang Markham MD [facility] CPT-41359 Level 4 Est. Patient 10:36:08 TRANSIT MIXER OPERATOR Ang Markham MD [facility] CPT-85415 Level 3 Est. Patient 16:27:02 CDT Eri Borges MD PhD [facility] CPT-22752 Level 3 Est. Patient 10:36:43 CDT Octaviano Dempsey [facility] CPT-83114 Level 4 New Patient 08:58:06 CDT Ang Markham MD [facility] Procedures Code Procedure Name Date Entry Date Standard Description CPT-02279 Venipuncture Draw Fee 12:25:15 CDT CPT-02469 Knee 3V 16:48:40 CDT CPT-OV Office Visit 16:27:13 CDT CPT-OV Office Visit 16:21:19 CDT CPT-24279 Sono pelvis non OB uterus ovaries cervix 09:37:28 CDT
--- OUTSIDE RECORDS SUMMARY | 2018-12-22 01:42 | XMS REPORT | Clinical Summary ---
Author Author Admin, QIE Organization [employer] Address Unknown Phone Unavailable Allergies, Adverse Reactions, [...] 1 po BID PRN Constipation DOCUSATE SODIUM 96563463809 Active Ang Markham MD Active PAXIL 20 MG TAB 1 tablet by mouth daily PAROXETINE HCL 63008365702 Active Ang Markham MD Active GENTAMICIN SULFATE 0.1 % EXT OINT Apply to open sores once a day. GENTAMICIN SULFATE 92609818871 No Longer Active Ang Markham MD Active ZOLPIDEM TARTRATE 10 MG TABS 1 po qHS PRN Insomnia ZOLPIDEM TARTRATE 85437118229 Active Ang Markham MD Active BACTRIM DS 800-160 MG TAB 1 tab by mouth twice daily TRIMETHOPRIM-SULFAMETHOXAZOLE 99733958062 No Longer Active Gloria Dunbar POWDERED METAL SUPERVISOR Active LEVEMIR FLEXTOUCH 100 UNIT/ML SC SOPN 40 units SC nightly INSULIN DETEMIR 78232548516 Active Ang Markham MD Active LEVEMIR FLEXPEN 100 UNIT/ML SOLN 40 units SC at bedtime INSULIN DETEMIR No Longer Active Susan Arellano RMA Active INSUPEN ULTRAFIN 31G X 6 MM MISC Use with insulin qid. DX: E11.9 INSULIN PEN NEEDLE 65279111106 Active Ang Markham MD Active ZOLOFT 100 MG TAB 1 po qHS SERTRALINE HCL 15646902032 No Longer Active Ang Markham MD Active MELOXICAM 15 MG TABS 1 po qd PRN Knee Pain MELOXICAM 98632253503 No Longer Active Ang Markham MD Active LIPITOR 40 MG TAB 1 po qHS ATORVASTATIN CALCIUM 86261192313 Active Ang Markham MD Active METFORMIN HCL 1000 MG TABS 1 tablet by mouth twice daily METFORMIN HCL 54142571087 Active Ang Markham MD Active CYCLOBENZAPRINE HCL 5 MG TABS 1 po qHS PRN Muscle pain CYCLOBENZAPRINE HCL 25091885399 Active Ang Markham MD Active COLACE 100 MG CAP 1 po BID PRN Constipation DOCUSATE SODIUM 26552627520 No Longer Active Ang Markham MD Active HYDROXYZINE HCL 25 MG TAB 1 TID PRN nerves HYDROXYZINE HCL 21511685140 Active Ang Markham MD Active IBUPROFEN 800 MG TABS 1 tab every 8 hours as needed for pain 2013 IBUPROFEN 70318521689 No Longer Active Ang Markham MD Active NITROFURANTOIN MACROCRYSTAL 100 MG CAPS 1 capsule PO bid x 7 days NITROFURANTOIN MACROCRYSTAL 19753051511 No Longer Active Ang Markham MD Active DIFLUCAN 150 MG TAB 1 qODay x 2 doses FLUCONAZOLE 48603706619 No Longer Active Da Romero POWDERED METAL SUPERVISOR Active CEFTIN 500 MG TAB 1 tablet by mouth twice daily for 7 days 07/24 CEFUROXIME AXETIL 69676147392 No Longer Active Anthony CARBONE Active ZOLOFT 50 MG TAB 1 tablet by mouth daily SERTRALINE HCL 11784720183 No Longer Active Anthony CARBONE Active ANUSOL-HC 2.5 % CREAM apply as needed HYDROCORTISONE (RECTAL) 09767415700 No Longer Active Anthony CARBONE Active COLACE 100 MG CAP 1 tab PO BID DOCUSATE SODIUM 84699121170 No Longer Active Anthony CARBONE Active TRINESSA (28) 0.18/0.215/0.25 MG-35 MCG TABS 1 po qd as directed NORGESTIM-ETH ESTRAD TRIPHASIC 46971180065 No Longer Active Anthony CARBONE Active [facility] MELATONIN 5 MG TABS 1-2 po qHS PRN Insomnia MELATONIN 03735187709 No Longer Active Anthony ACRBONE Active NOVOLOG FLEXPEN 100 UNIT/ML SOPN Take 18 units TID with meals INSULIN ASPART 53404469235 Active Codey Hdez MD Active ACYCLOVIR 400 MG TABS ACYCLOVIR 83964584636 No Longer Active Ang Markham MD Active EMBRACE BLOOD GLUCOSE TEST STRP Test blood sugars 4 times daily and PRN 08/05 GLUCOSE BLOOD 65026456698 Active Ang Markham MD Active HYDROXYZINE HCL 25 MG TABS 1 tab PO tid PRN itching HYDROXYZINE HCL 48427148523 No Longer Active Ang Markham MD Active DIFLUCAN 150 MG TAB 1 qODay x 2 doses FLUCONAZOLE 81396644504 No Longer Active Da Romero APRN Active ACYCLOVIR 400 MG TABS 1 pill twice daily ACYCLOVIR 10579838598 No Longer Active Jillina Nick OSHEA Active AZITHROMYCIN 250 MG TABS 2 po qd x 1 day, then 1 po qd x 4 days AZITHROMYCIN 23391364765 No Longer Active Eri Borges MD PhD Active AZITHROMYCIN 250 MG TABS take 2 po day 1 then take1 po days 2-5 AZITHROMYCIN 10004997792 No Longer Active Octaviano CARBONE Active ACYCLOVIR 400 MG TABS 1 po qd ACYCLOVIR 75454017928 No Longer Active Ang Markham MD Active PROZAC 40 MG CAPS 1 cap by mouth at bedtime FLUOXETINE HCL 19382648462 No Longer Active Ang Markham MD Active HYDROXYZINE HCL 25 MG TABS 1 tab PO tid PRN itching HYDROXYZINE HCL 25 MG TABS 705186 HYDROXYZINE HCL Inactive [facility] MEL[facility]IN 5 MG TABS 1-2 po qHS PRN Insomnia [facility] MELATONIN 5 MG TABS 938878 MELATONIN Inactive TRINESSA (28) 0.18/0.215/0.25 MG-35 MCG TABS 1 po qd as directed TRINESSA (28) 0.18/0.215/0.25 MG-35 MCG TABS 209792 NORGESTIM-ETH ESTRAD TRIPHASIC Inactive COLACE 100 MG CAP 1 tab PO BID COLACE 100 MG CAP 2201747 DOCUSATE SODIUM Inactive ANUSOL-HC 2.5 % CREAM apply as needed ANUSOL-HC 2.5 % CREAM 649888 HYDROCORTISONE (RECTAL) Inactive ZOLOFT 50 MG TAB 1 tablet by mouth daily ZOLOFT 50 MG TAB 079255 SERTRALINE HCL Inactive CEFTIN 500 MG TAB 1 tablet by mouth twice daily for 7 days 07/24 CEFTIN 500 MG TAB 768202 CEFUROXIME AXETIL Inactive NITROFURANTOIN MACROCRYSTAL 100 MG CAPS 1 capsule PO bid x 7 days NITROFURANTOIN MACROCRYSTAL 100 MG CAPS 4077233 NITROFURANTOIN MACROCRYSTAL Inactive IBUPROFEN 800 MG TABS 1 tab every 8 hours as needed for pain 2013 IBUPROFEN 800 MG TABS 801556 IBUPROFEN Inactive COLACE 100 MG CAP 1 po BID PRN Constipation COLACE 100 MG CAP 3573323 DOCUSATE SODIUM Inactive MELOXICAM 15 MG TABS 1 po qd PRN Knee Pain MELOXICAM 15 MG TABS 482730 MELOXICAM Inactive LEVEMIR FLEXPEN 100 UNIT/ML SOLN 40 units SC at bedtime LEVEMIR FLEXPEN 100 UNIT/ML SOLN INSULIN DETEMIR Inactive GENTAMICIN SULFATE 0.1 % EXT OINT Apply to open sores once a day. GENTAMICIN SULFATE 0.1 % EXT OINT 694984 GENTAMICIN SULFATE Inactive ACYCLOVIR 400 MG TABS 1 po qd ACYCLOVIR 400 MG TABS 19720928 ACYCLOVIR Inactive AZITHROMYCIN 250 MG TABS take 2 po day 1 then take1 po days 2-5 AZITHROMYCIN 250 MG TABS 0124632 AZITHROMYCIN Inactive AZITHROMYCIN 250 MG TABS 2 po qd x 1 day, then 1 po qd x 4 days AZITHROMYCIN 250 MG TABS 9613460 AZITHROMYCIN Inactive ACYCLOVIR 400 MG TABS 1 pill twice daily ACYCLOVIR 400 MG TABS 363275 ACYCLOVIR Inactive DIFLUCAN 150 MG TAB 1 qODay x 2 doses DIFLUCAN 150 MG TAB 630588 FLUCONAZOLE Inactive ACYCLOVIR 400 MG TABS ACYCLOVIR 400 MG TABS 558120 ACYCLOVIR Inactive DIFLUCAN 150 MG TAB 1 qODay x 2 doses DIFLUCAN 150 MG TAB 606163 FLUCONAZOLE Inactive BACTRIM DS 800-160 MG TAB 1 tab by mouth twice daily BACTRIM DS 800-160 MG TAB 278822 TRIMETHOPRIM-SULFAMETHOXAZOLE Inactive Advance Directives Directive Description Start [...] 4.3-6.0 Encounters Code Encounter Date Provider Facility CPT-26124 Level 3 Est. Patient 11:13:47 ARABIC LINGUIST Ang Markham MD [facility] CPT-09229 Level 3 Est. Patient 11:59:20 ARABIC LINGUIST Gloria Dunbar [facility] CPT-76373 Level 3 Est. Patient 17:32:37 ARABIC LINGUIST Gloria Dunbar [facility] CPT-57258 Level 4 Est. Patient 16:39:07 CDT Ang Markham MD [facility] CPT-52946 Level 3 Est. Patient 16:35:50 CDT Ang Markham MD [facility] CPT-05287 Level 4 Est. Patient 13:53:06 ARABIC LINGUIST Ang Markham MD [facility] CPT-17225 Level 3 Est. Patient 08:58:08 ARABIC LINGUIST Ang Markham MD [facility] CPT-80930 Level 3 Est. Patient 18:48:29 CDT Anthony Whitfield [facility] CPT-11391 Level 3 Est. Patient 12:16:59 CDT Gabriel Hunt DO [facility] CPT-57131 Level 3 Est. Patient 18:57:15 CDT Anthony Whitfield [facility] CPT-90326 Level 3 Est. Patient 13:59:22 ARABIC LINGUIST Ang Markham MD [facility] CPT-98419 Level 4 Est. Patient 10:36:08 ARABIC LINGUIST Ang Markham MD [facility] CPT-37935 Level 3 Est. Patient 16:27:02 CDT Eri Borges MD PhD [facility] CPT-20758 Level 3 Est. Patient 10:36:43 CDT Octaviano Dempsey [facility] CPT-29357 Level 4 New Patient 08:58:06 CDT Ang Markham MD [facility] Procedures Code Procedure Name Date Entry Date Standard Description CPT-35842 Venipuncture Draw Fee 12:25:15 CDT CPT-57760 Knee 3V 16:48:40 CDT CPT-OV Office Visit 16:27:13 CDT CPT-OV Office Visit 16:21:19 CDT CPT-86094 Sono pelvis non OB uterus ovaries cervix 09:37:28 CDT
[2018-12-22 01:43] VITALS: BP 105/73
--- OUTSIDE RECORDS SUMMARY | 2018-12-22 01:43 | XMS REPORT | Clinical Summary ---
Author Author Admin, QIE Organization [employer] Address Unknown Phone Unavailable Allergies, Adverse Reactions, [...] I [juvenile type], not stated as uncontrolled FPC use 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 V58.67 Resolved Ang [...] I, with hypoglycemia ICD-250.81 Nathan Markham MD [facility] use 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 ICD-V58.67 Nathan Markham MD Abdominal pain ICD-789.00 Nathan Markham MD Nausea ICD-787.02 Nathan Markham MD 06/26 Otitis externa, acute, left ICD-380.12 Nathan Markham MD Medication List Medication Instructions Start Date Stop Date Generic Name NDC Status Provider Patient Instruction CORTISPORIN 3.5-01922-4 SOLN 4gtts in affected ear QID x 7 days [id number] [id number] No Longer Active Ang Markham MD Active TRESIBA FLEXTOUCH 200 UNIT/ML SC SOPN Take 70 units daily at mid-night to 1 am. INSULIN DEGLUDEC 62339299573 Active Celestine Rigoglari SERVICE OBSERVER CHIEF Active LEVEMIR FLEXTOUCH 100 UNIT/ML SC SOPN 35 units SC at 12-1pm, 35 units 12-1am INSULIN DETEMIR 50860291234 No Longer Active Gagewalter Sierraglari RAMSES Active REGLAN 10 MG TAB 0.5 po TID 30min prior to meals METOCLOPRAMIDE HCL 59501989656 Active Ang Markham MD Active ZANTAC 150 MG TAB 1 po BID RANITIDINE HCL 92015848007 Active Ang Markham MD Active DOXEPIN HCL 10 MG CAP 1 tablet nightly for the itch DOXEPIN HCL 55131496755 Active Gabriel Hunt DO Active COLACE 100 MG CAP 1 po daily DOCUSATE SODIUM 35901189405 Active Gabriel Hunt DO Active NOVOLOG FLEXPEN 100 UNIT/ML SOPN Take 20 units TID with meals, plus 2u/50 for blood sugars above 150. Ratio vs. Carbs INSULIN ASPART 49106584164 Active Gabriel Hunt DO Active BD PEN NEEDLE DINESH U/F 32G X 4 MM MISC 5 a day INSULIN PEN NEEDLE 09997643999 Active Celestine Rigoglari RAMSES Active EMBRACE BLOOD GLUCOSE TEST STRP Test blood sugars 4 times daily and PRN 08/05 GLUCOSE BLOOD 26094882395 No Longer Active Gagestephensonia Rigoglari RAMSES Active TRUEPLUS LANCETS 30G MISC 4 a day LANCETS 80311991552 Active Gagestepheneh Ziglari SERVICE OBSERVER CHIEF Active TRUETEST TEST STRP check blood sugars 4x/day GLUCOSE BLOOD 36620091075 Active Maliheh Ziglari SERVICE OBSERVER CHIEF Active TRUERESULT BLOOD GLUCOSE W/DEVICE KIT check blood sugars 4x a day BLOOD GLUCOSE MONITORING SUPPL 86257628201 Active Janeysonia Ziglari SERVICE OBSERVER CHIEF Active LISINOPRIL 5 MG TABS 1 po qd LISINOPRIL 69303771062 Active Ang Markham MD Active PAXIL 20 MG TAB 1 tablet by mouth daily PAROXETINE HCL 42883166159 Active Ang Markham MD Active GENTAMICIN SULFATE 0.1 % EXT OINT Apply to open sores once a day. GENTAMICIN SULFATE 71699689432 No Longer Active Ang Markham MD Active ZOLPIDEM TARTRATE 10 MG TABS 1 po qHS PRN Insomnia ZOLPIDEM TARTRATE 26586720530 Active Ang Markham MD Active BACTRIM DS 800-160 MG TAB 1 tab by mouth twice daily TRIMETHOPRIM-SULFAMETHOXAZOLE 77864356547 No Longer Active Gloria Yokum INDUSTRIAL SALES MANAGER Active LEVEMIR FLEXPEN 100 UNIT/ML SOLN 40 units SC at bedtime INSULIN DETEMIR No Longer Active Susan Adan RMA Active INSUPEN ULTRAFIN 31G X 6 MM MISC Use with insulin qid. DX: E11.9 INSULIN PEN NEEDLE 25061118403 Active Ang Markham MD Active ZOLOFT 100 MG TAB 1 po qHS SERTRALINE HCL 00035929299 No Longer Active Ang Markham MD Active MELOXICAM 15 MG TABS 1 po qd PRN Knee Pain MELOXICAM 82467597643 No Longer Active Ang Markham MD Active LIPITOR 40 MG TAB 1 po qHS ATORVASTATIN CALCIUM 72246267846 Active Ang Markham MD Active METFORMIN HCL 1000 MG TABS 1 tablet by mouth twice daily METFORMIN HCL 32662741204 Active Ang Markham MD Active CYCLOBENZAPRINE HCL 5 MG TABS 1 po qHS PRN Muscle pain CYCLOBENZAPRINE HCL 42341530788 Active Ang Markham MD Active COLACE 100 MG CAP 1 po BID PRN Constipation DOCUSATE SODIUM 69432607868 No Longer Active Ang Markham MD Active HYDROXYZINE HCL 25 MG TAB 1 TID PRN nerves HYDROXYZINE HCL 15787963744 Active Ang Markham MD Active IBUPROFEN 800 MG TABS 1 tab every 8 hours as needed for pain 2013 IBUPROFEN 01210290661 No Longer Active Ang Markham MD Active NITROFURANTOIN MACROCRYSTAL 100 MG CAPS 1 capsule PO bid x 7 days NITROFURANTOIN MACROCRYSTAL 15348704629 No Longer Active Ang Markham MD Active DIFLUCAN 150 MG TAB 1 qODay x 2 doses FLUCONAZOLE 49838414628 No Longer Active Da Romero APRN Active CEFTIN 500 MG TAB 1 tablet by mouth twice daily for 7 days 07/24 CEFUROXIME AXETIL 49572891598 No Longer Active Anthony CARBONE Active ZOLOFT 50 MG TAB 1 tablet by mouth daily SERTRALINE HCL 49660945329 No Longer Active Anthony CARBONE Active ANUSOL-HC 2.5 % CREAM apply as needed HYDROCORTISONE (RECTAL) 23536687420 No Longer Active Anthony CARBONE Active COLACE 100 MG CAP 1 tab PO BID DOCUSATE SODIUM 33379965365 No Longer Active Anthony CARBONE Active TRINESSA (28) 0.18/0.215/0.25 MG-35 MCG TABS 1 po qd as directed NORGESTIM-ETH ESTRAD TRIPHASIC 53060314901 No Longer Active Anthony CARBONE Active [facility] MELATONIN 5 MG TABS 1-2 po qHS PRN Insomnia MELATONIN 98013482875 No Longer Active Anthony CARBONE Active ACYCLOVIR 400 MG TABS ACYCLOVIR 57257756324 No Longer Active Ang Markham MD Active HYDROXYZINE HCL 25 MG TABS 1 tab PO tid PRN itching HYDROXYZINE HCL 89488384397 No Longer Active Ang Markham MD Active DIFLUCAN 150 MG TAB 1 qODay x 2 doses FLUCONAZOLE 86572683961 No Longer Active Da Romero APRN Active ACYCLOVIR 400 MG TABS 1 pill twice daily ACYCLOVIR 13103136205 No Longer Active Da Romero INDUSTRIAL SALES MANAGER Active AZITHROMYCIN 250 MG TABS 2 po qd x 1 day, then 1 po qd x 4 days AZITHROMYCIN 28431415790 No Longer Active Eri Borges MD PhD Active AZITHROMYCIN 250 MG TABS take 2 po day 1 then take1 po days 2-5 AZITHROMYCIN 65132598818 No Longer Active Octaviano Dempsey PA Active ACYCLOVIR 400 MG TABS 1 po qd ACYCLOVIR 83649901543 No Longer Active Ang Markham MD Active PROZAC 40 MG CAPS 1 cap by mouth at bedtime FLUOXETINE HCL 50873470578 No Longer Active Ang Markham MD Active HYDROXYZINE HCL 25 MG TABS 1 tab PO tid PRN itching HYDROXYZINE HCL 25 MG TABS 962732 HYDROXYZINE HCL Inactive [facility] MELAT[facility]IN 5 MG TABS 1-2 po qHS PRN Insomnia [facility] MELATONIN 5 MG TABS 171766 MELATONIN Inactive TRINESSA (28) 0.18/0.215/0.25 MG-35 MCG TABS 1 po qd as directed TRINESSA (28) 0.18/0.215/0.25 MG-35 MCG TABS 794678 NORGESTIM-ETH ESTRAD TRIPHASIC Inactive COLACE 100 MG CAP 1 tab PO BID COLACE 100 MG CAP 2564965 DOCUSATE SODIUM Inactive ANUSOL-HC 2.5 % CREAM apply as needed ANUSOL-HC 2.5 % CREAM 961996 HYDROCORTISONE (RECTAL) Inactive ZOLOFT 50 MG TAB 1 tablet by mouth daily ZOLOFT 50 MG TAB 963771 SERTRALINE HCL Inactive CEFTIN 500 MG TAB 1 tablet by mouth twice daily for 7 days 07/24 CEFTIN 500 MG TAB 712962 CEFUROXIME AXETIL Inactive NITROFURANTOIN MACROCRYSTAL 100 MG CAPS 1 capsule PO bid x 7 days NITROFURANTOIN MACROCRYSTAL 100 MG CAPS 9390905 NITROFURANTOIN MACROCRYSTAL Inactive IBUPROFEN 800 MG TABS 1 tab every 8 hours as needed for pain 2013 IBUPROFEN 800 MG TABS 361629 IBUPROFEN Inactive COLACE 100 MG CAP 1 po BID PRN Constipation COLACE 100 MG CAP 6796563 DOCUSATE SODIUM Inactive MELOXICAM 15 MG TABS 1 po qd PRN Knee Pain MELOXICAM 15 MG TABS 880390 MELOXICAM Inactive LEVEMIR FLEXPEN 100 UNIT/ML SOLN 40 units SC at bedtime LEVEMIR FLEXPEN 100 UNIT/ML SOLN INSULIN DETEMIR Inactive GENTAMICIN SULFATE 0.1 % EXT OINT Apply to open sores once a day. GENTAMICIN SULFATE 0.1 % EXT OINT 713765 GENTAMICIN SULFATE Inactive EMBRACE BLOOD GLUCOSE TEST STRP Test blood sugars 4 times daily and PRN 08/05 EMBRACE BLOOD GLUCOSE TEST STRP GLUCOSE BLOOD Inactive LEVEMIR FLEXTOUCH 100 UNIT/ML SC SOPN 35 units SC at 12-1pm, 35 units 12-1am LEVEMIR FLEXTOUCH 100 UNIT/ML SC SOPN INSULIN DETEMIR Inactive CORTISPORIN 3.5-77713-2 SOLN 4gtts in affected ear QID x 7 days CORTISPORIN 3.5-01113-5 SOLN 472761 [id number] Inactive ACYCLOVIR 400 MG TABS 1 po qd ACYCLOVIR 400 MG TABS 367159 ACYCLOVIR Inactive AZITHROMYCIN 250 MG TABS take 2 po day 1 then take1 po days 2-5 AZITHROMYCIN 250 MG TABS 6175392 AZITHROMYCIN Inactive AZITHROMYCIN 250 MG TABS 2 po qd x 1 day, then 1 po qd x 4 days AZITHROMYCIN 250 MG TABS 8477631 AZITHROMYCIN Inactive ACYCLOVIR 400 MG TABS 1 [...] twice daily BACTRIM DS 800-160 MG TAB 934472 TRIMETHOPRIM-SULFAMETHOXAZOLE Inactive Advance Directives Directive Description Start [...] HGBA1C - Chemistry sodium, serum 134 mmol/L 516-499 7392/03/16 carbon dioxide, venous blood 34.5 mmol/L 21.0-32.0 potassium, serum 4.6 mmol/L 3.5-5.2 chloride, serum 93 mmol/L 98-107 blood glucose 408 mg/dL 65-110 urea nitrogen, blood 3 mg/dL 7-18 creatinine, serum 0.58 mg/dL 0.55-1.30 alanine aminotransferase (SGPT), serum 11 U/L 12-78 aspartate aminotransferase (SGOT), serum 8 U/L 15-37 calcium, serum 9.2 mg/dL 8.5-10.1 bilirubin, serum, total 0.30 mg/dL 0.00-1.00 cholesterol, serum 195 mg/dL 890-517 6439/03/16 triglyceride, serum, fasting 138 mg/dL 30-200 HDL [...] Panel - Chemistry sodium, serum 130 mmol/L 501-903 9096/10/12 carbon dioxide, venous blood 28.1 mmol/L 21.0-32.0 potassium, serum 3.9 mmol/L 3.5-5.2 chloride, serum 91 mmol/L 98-107 blood glucose 547 mg/dL 65-110 urea nitrogen, blood 3 mg/dL 7-18 creatinine, serum 0.78 mg/dL 0.55-1.30 alanine aminotransferase (SGPT), serum 11 U/L 12-78 aspartate aminotransferase (SGOT), serum 7 U/L 15-37 calcium, serum 8.8 mg/dL 8.5-10.1 bilirubin, serum, total 0.30 mg/dL 0.00-1.00 cholesterol, serum 221 mg/dL 295-712 5651/10/12 triglyceride, serum, fasting 590 mg/dL 30-200 HDL [...] Panel - Chemistry sodium, serum 133 mmol/L 933-902 5210/06/03 carbon dioxide, venous blood 33.4 mmol/L 21.0-32.0 [...] pH, urine, semiquantitative 5.5 5.0-8.5 Lab Report: [facility] - Chemistry human chorionic gonadotropin, urine, qualitative [...] mg/dL Encounters Code Encounter Date Provider Facility CPT-25991 Level 3 Est. Patient 16:21:23 CDT Celestine PEARCE [facility] CPT-74491 Level 3 Est. Patient 17:02:56 CDT Gabriel Hunt DO [facility] CPT-87876 Level 3 Est. Patient 14:46:22 CDT Da Romero APRN [facility] CPT-89392 Level 4 Est. Patient 13:55:20 CDT Ang Markham MD [facility] CPT-66130 Level 4 Est. Patient 16:10:09 CDT Celestine Bradley [facility] CPT-54769 Level 3 Est. Patient 13:51:24 CDT Ang Markham MD [facility] CPT-64666 Level 3 Est. Patient 18:42:15 CDT Gabriel Hunt [facility] CPT-97374 Level 5 Est. Patient 14:40:14 CDT Celestine Bradley [facility] CPT-05342 Level 4 Est. Patient 14:36:17 CDT Ang Markham MD [facility] CPT-45647 Level 3 Est. Patient 11:13:47 INTERNATIONAL COORDINATOR Ang Markham MD [facility] CPT-13235 Level 3 Est. Patient 11:59:20 INTERNATIONAL COORDINATOR Gloria Dunbar [facility] CPT-01956 Level 3 Est. Patient 17:32:37 INTERNATIONAL COORDINATOR Gloria Dunbar [facility] CPT-49803 Level 4 Est. Patient 16:39:07 CDT Ang Markham MD [facility] CPT-60961 Level 3 Est. Patient 16:35:50 CDT Ang Markham MD [facility] CPT-59946 Level 4 Est. Patient 13:53:06 INTERNATIONAL COORDINATOR Ang Markham MD [facility] CPT-34318 Level 3 Est. Patient 08:58:08 INTERNATIONAL COORDINATOR Ang Markham MD [facility] CPT-19913 Level 3 Est. Patient 18:48:29 CDT Anthony Whitfield [facility] CPT-21436 Level 3 Est. Patient 12:16:59 CDT Gabriel Hunt [facility] CPT-16258 Level 3 Est. Patient 18:57:15 CDT Anthony Whitfield [facility] CPT-07894 Level 3 Est. Patient 13:59:22 INTERNATIONAL COORDINATOR Ang Markham MD [facility] CPT-59144 Level 4 Est. Patient 10:36:08 INTERNATIONAL COORDINATOR Ang Markham MD [facility] CPT-40886 Level 3 Est. Patient 16:27:02 CDT Eri Borges MD PhD [facility] CPT-55971 Level 3 Est. Patient 10:36:43 CDT Octaviano CARBONE [facility] CPT-00332 Level 4 New Patient 08:58:06 CDT Ang Markham MD [facility] Procedures Code Procedure Name Date Entry Date Standard Description CPT-80145 Abd compl w upright - XRAY USE ONLY 14:09:39 CDT 02/28 CPT-03459 Venipuncture Draw Fee 12:25:15 CDT CPT-43274 Knee 3V 16:48:40 CDT CPT-OV Office Visit 16:27:13 CDT CPT-OV Office Visit 16:21:19 CDT CPT-03136 Sono pelvis non OB uterus ovaries cervix 09:37:28 CDT
--- OUTSIDE RECORDS SUMMARY | 2018-12-22 01:44 | XMS REPORT | Clinical Summary ---
Author Author Admin, QIE Organization [employer] Address Unknown Phone Unavailable Allergies, Adverse Reactions, [...] 1 po BID PRN Constipation DOCUSATE SODIUM 64271030373 Active Ang Markham MD Active PAXIL 20 MG TAB 1 tablet by mouth daily PAROXETINE HCL 69609137649 Active Ang Markham MD Active GENTAMICIN SULFATE 0.1 % EXT OINT Apply to open sores once a day. GENTAMICIN SULFATE 18353346828 No Longer Active Ang Markham MD Active ZOLPIDEM TARTRATE 10 MG TABS 1 po qHS PRN Insomnia ZOLPIDEM TARTRATE 70687127109 Active Ang Markham MD Active BACTRIM DS 800-160 MG TAB 1 tab by mouth twice daily TRIMETHOPRIM-SULFAMETHOXAZOLE 46778252507 No Longer Active Gloria Dunbar BUSINESS EMPLOYMENT SPECIALIST Active LEVEMIR FLEXTOUCH 100 UNIT/ML SC SOPN 40 units SC nightly INSULIN DETEMIR 05377467268 Active Ang Markham MD Active LEVEMIR FLEXPEN 100 UNIT/ML SOLN 40 units SC at bedtime INSULIN DETEMIR No Longer Active Susan Arellano RMA Active INSUPEN ULTRAFIN 31G X 6 MM MISC Use with insulin qid. DX: E11.9 INSULIN PEN NEEDLE 47060883479 Active Ang Markham MD Active ZOLOFT 100 MG TAB 1 po qHS SERTRALINE HCL 01583450393 No Longer Active Ang Markham MD Active MELOXICAM 15 MG TABS 1 po qd PRN Knee Pain MELOXICAM 51093316766 No Longer Active Ang Markham MD Active LIPITOR 40 MG TAB 1 po qHS ATORVASTATIN CALCIUM 20163107766 Active Ang Markham MD Active METFORMIN HCL 1000 MG TABS 1 tablet by mouth twice daily METFORMIN HCL 97755735878 Active Ang Markham MD Active CYCLOBENZAPRINE HCL 5 MG TABS 1 po qHS PRN Muscle pain CYCLOBENZAPRINE HCL 41799380027 Active Ang Markham MD Active COLACE 100 MG CAP 1 po BID PRN Constipation DOCUSATE SODIUM 73746585625 No Longer Active Ang Markham MD Active HYDROXYZINE HCL 25 MG TAB 1 TID PRN nerves HYDROXYZINE HCL 09161173660 Active Ang Markham MD Active IBUPROFEN 800 MG TABS 1 tab every 8 hours as needed for pain 2013 IBUPROFEN 00150163260 No Longer Active Ang Markham MD Active NITROFURANTOIN MACROCRYSTAL 100 MG CAPS 1 capsule PO bid x 7 days NITROFURANTOIN MACROCRYSTAL 67842193312 No Longer Active Ang Markham MD Active DIFLUCAN 150 MG TAB 1 qODay x 2 doses FLUCONAZOLE 90002298961 No Longer Active Da Romero BUSINESS EMPLOYMENT SPECIALIST Active CEFTIN 500 MG TAB 1 tablet by mouth twice daily for 7 days 07/24 CEFUROXIME AXETIL 29114846584 No Longer Active Anthony CARBONE Active ZOLOFT 50 MG TAB 1 tablet by mouth daily SERTRALINE HCL 97463287875 No Longer Active Anthony CARBONE Active ANUSOL-HC 2.5 % CREAM apply as needed HYDROCORTISONE (RECTAL) 09250312033 No Longer Active Anthony CARBONE Active COLACE 100 MG CAP 1 tab PO BID DOCUSATE SODIUM 86233101103 No Longer Active Anthony CARBONE Active TRINESSA (28) 0.18/0.215/0.25 MG-35 MCG TABS 1 po qd as directed NORGESTIM-ETH ESTRAD TRIPHASIC 04315465947 No Longer Active Anthony CARBONE Active [facility] MELATONIN 5 MG TABS 1-2 po qHS PRN Insomnia MELATONIN 23289470487 No Longer Active Anthony CARBONE Active NOVOLOG FLEXPEN 100 UNIT/ML SOPN Take 18 units TID with meals INSULIN ASPART 51515614506 Active Codey Hdez MD Active ACYCLOVIR 400 MG TABS ACYCLOVIR 52320406019 No Longer Active Ang Markham MD Active EMBRACE BLOOD GLUCOSE TEST STRP Test blood sugars 4 times daily and PRN 08/05 GLUCOSE BLOOD 67791307348 Active Ang Markham MD Active HYDROXYZINE HCL 25 MG TABS 1 tab PO tid PRN itching HYDROXYZINE HCL 80553396910 No Longer Active Ang Markham MD Active DIFLUCAN 150 MG TAB 1 qODay x 2 doses FLUCONAZOLE 07482528530 No Longer Active Da Romero APRN Active ACYCLOVIR 400 MG TABS 1 pill twice daily ACYCLOVIR 14797953979 No Longer Active Jillina Nick OSHEA Active AZITHROMYCIN 250 MG TABS 2 po qd x 1 day, then 1 po qd x 4 days AZITHROMYCIN 58056839277 No Longer Active Eri Borges MD PhD Active AZITHROMYCIN 250 MG TABS take 2 po day 1 then take1 po days 2-5 AZITHROMYCIN 84326470162 No Longer Active Octaviano CARBONE Active ACYCLOVIR 400 MG TABS 1 po qd ACYCLOVIR 73573072633 No Longer Active Ang Markham MD Active PROZAC 40 MG CAPS 1 cap by mouth at bedtime FLUOXETINE HCL 55369571445 No Longer Active Ang Markham MD Active HYDROXYZINE HCL 25 MG TABS 1 tab PO tid PRN itching HYDROXYZINE HCL 25 MG TABS 568555 HYDROXYZINE HCL Inactive [facility] MELATONIN 5 MG TABS 1-2 po qHS PRN Insomnia [facility] MELATONIN 5 MG TABS 108119 MELATONIN Inactive TRINESSA (28) 0.18/0.215/0.25 MG-35 MCG TABS 1 po qd as directed TRINESSA (28) 0.18/0.215/0.25 MG-35 MCG TABS 329056 NORGESTIM-ETH ESTRAD TRIPHASIC Inactive COLACE 100 MG CAP 1 tab PO BID COLACE 100 MG CAP 6271379 DOCUSATE SODIUM Inactive ANUSOL-HC 2.5 % CREAM apply as needed ANUSOL-HC 2.5 % CREAM 808372 HYDROCORTISONE (RECTAL) Inactive ZOLOFT 50 MG TAB 1 tablet by mouth daily ZOLOFT 50 MG TAB 067355 SERTRALINE HCL Inactive CEFTIN 500 MG TAB 1 tablet by mouth twice daily for 7 days 07/24 CEFTIN 500 MG TAB 131833 CEFUROXIME AXETIL Inactive NITROFURANTOIN MACROCRYSTAL 100 MG CAPS 1 capsule PO bid x 7 days NITROFURANTOIN MACROCRYSTAL 100 MG CAPS 3708128 NITROFURANTOIN MACROCRYSTAL Inactive IBUPROFEN 800 MG TABS 1 tab every 8 hours as needed for pain 2013 IBUPROFEN 800 MG TABS 195330 IBUPROFEN Inactive COLACE 100 MG CAP 1 po BID PRN Constipation COLACE 100 MG CAP 7551229 DOCUSATE SODIUM Inactive MELOXICAM 15 MG TABS 1 po qd PRN Knee Pain MELOXICAM 15 MG TABS 343435 MELOXICAM Inactive LEVEMIR FLEXPEN 100 UNIT/ML SOLN 40 units SC at bedtime LEVEMIR FLEXPEN 100 UNIT/ML SOLN INSULIN DETEMIR Inactive GENTAMICIN SULFATE 0.1 % EXT OINT Apply to open sores once a day. GENTAMICIN SULFATE 0.1 % EXT OINT 602344 GENTAMICIN SULFATE Inactive ACYCLOVIR 400 MG TABS 1 po qd ACYCLOVIR 400 MG TABS 19720928 ACYCLOVIR Inactive AZITHROMYCIN 250 MG TABS take 2 po day 1 then take1 po days 2-5 AZITHROMYCIN 250 MG TABS 2168701 AZITHROMYCIN Inactive AZITHROMYCIN 250 MG TABS 2 po qd x 1 day, then 1 po qd x 4 days AZITHROMYCIN 250 MG TABS 7052463 AZITHROMYCIN Inactive ACYCLOVIR 400 MG TABS 1 pill twice daily ACYCLOVIR 400 MG TABS 123539 ACYCLOVIR Inactive DIFLUCAN 150 MG TAB 1 qODay x 2 doses DIFLUCAN 150 MG TAB 001037 FLUCONAZOLE Inactive ACYCLOVIR 400 MG TABS ACYCLOVIR 400 MG TABS 105182 ACYCLOVIR Inactive DIFLUCAN 150 MG TAB 1 qODay x 2 doses DIFLUCAN 150 MG TAB 701259 FLUCONAZOLE Inactive BACTRIM DS 800-160 MG TAB 1 tab by mouth twice daily BACTRIM DS 800-160 MG TAB 253399 TRIMETHOPRIM-SULFAMETHOXAZOLE Inactive Advance Directives Directive Description Start [...] HGBA1C - Chemistry sodium, serum 134 mmol/L 166-554 3758/03/16 carbon dioxide, venous blood 34.5 mmol/L 21.0-32.0 potassium, serum 4.6 mmol/L 3.5-5.2 chloride, serum 93 mmol/L 98-107 blood glucose 408 mg/dL 65-110 urea nitrogen, blood 3 mg/dL 7-18 creatinine, serum 0.58 mg/dL 0.55-1.30 alanine aminotransferase (SGPT), serum 11 U/L 12-78 aspartate aminotransferase (SGOT), serum 8 U/L 15-37 calcium, serum 9.2 mg/dL 8.5-10.1 bilirubin, serum, total 0.30 mg/dL 0.00-1.00 cholesterol, serum 195 mg/dL 021-928 1167/03/16 triglyceride, serum, fasting 138 mg/dL 30-200 HDL [...] 0-19 Encounters Code Encounter Date Provider Facility CPT-10302 Level 3 Est. Patient 11:13:47 TELECOMMUNICATIONS OPERATOR Ang Markham MD [facility] CPT-86731 Level 3 Est. Patient 11:59:20 TELECOMMUNICATIONS OPERATOR Gloria Dunbar [facility] CPT-66453 Level 3 Est. Patient 17:32:37 TELECOMMUNICATIONS OPERATOR Gloria Dunbar [facility] CPT-25131 Level 4 Est. Patient 16:39:07 CDT Ang Markham MD [facility] CPT-43762 Level 3 Est. Patient 16:35:50 CDT Ang Markham MD [facility] CPT-04043 Level 4 Est. Patient 13:53:06 TELECOMMUNICATIONS OPERATOR Ang Markham MD [facility] CPT-07142 Level 3 Est. Patient 08:58:08 TELECOMMUNICATIONS OPERATOR Ang Markham MD [facility] CPT-87369 Level 3 Est. Patient 18:48:29 CDT Anthony Whitfield [facility] CPT-16974 Level 3 Est. Patient 12:16:59 CDT Gabriel Hunt DO [facility] CPT-70939 Level 3 Est. Patient 18:57:15 CDT Anthony Whitfield [facility] CPT-71457 Level 3 Est. Patient 13:59:22 TELECOMMUNICATIONS OPERATOR Ang Markham MD [facility] CPT-88236 Level 4 Est. Patient 10:36:08 TELECOMMUNICATIONS OPERATOR Ang Markham MD [facility] CPT-46436 Level 3 Est. Patient 16:27:02 CDT Eri Borges MD PhD [facility] CPT-60694 Level 3 Est. Patient 10:36:43 CDT Octaviano CARBONE [facility] CPT-93847 Level 4 New Patient 08:58:06 CDT Ang Markham MD [facility] Procedures Code Procedure Name Date Entry Date Standard Description CPT-28995 Venipuncture Draw Fee 12:25:15 CDT CPT-94053 Knee 3V 16:48:40 CDT CPT-OV Office Visit 16:27:13 CDT CPT-OV Office Visit 16:21:19 CDT CPT-12636 Sono pelvis non OB uterus ovaries cervix 09:37:28 CDT
--- OUTSIDE RECORDS SUMMARY | 2018-12-22 01:45 | XMS REPORT | Clinical Summary ---
Author Author Admin, QIE Organization [employer] Address Unknown Phone Unavailable Allergies, Adverse Reactions, [...] Absence of menstruation Health screening V70.0 Active Agn Markham MD Routine general medical examination at a health care facility Cellulitis, ankle, left 682.6 Resolved Ang Markham MD Cellulitis and abscess of leg, except foot Microalbuminuria 791.0 Active Ang Markham MD Proteinuria Diabetes mellitus, type I, with hypoglycemia 250.81 Resolved Ang Markham MD Diabetes mellitus with other specified manifestations, type I [juvenile type], not stated as uncontrolled [facility] use 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 V58.67 Resolved Ang [...] Resolved Ang Markham MD 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 Active [...] I, with hypoglycemia ICD-250.81 Nathan Markham MD 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 ICD-V58.67 Nathan Markham MD Abdominal pain ICD-789.00 Nathan Markham MD Hematochezia ICD-578.1 Nathan Markham MD Nausea ICD-787.02 Nathan Markham MD 06/26 Otitis externa, acute, left ICD-380.12 Nathan Markham MD Medication List Medication Instructions Start Date Stop Date Generic Name NDC Status Provider Patient Instruction LEVAQUIN 500 MG TABS 1 daily for infection LEVOFLOXACIN 86639917840 Active Shreya Caroline SILVICULTURIST Active GEMFIBROZIL 600 MG TABS 1 po BID GEMFIBROZIL 07191777764 Active Ang Markham MD Active CORTISPORIN 3.5-89254-5 SOLN 4gtts in affected ear QID x 7 days [id number] 22701012985 No Longer Active Ang Markham MD Active TRESIBA FLEXTOUCH 200 UNIT/ML SC SOPN Take 70 units daily at mid-night to 1 am. INSULIN DEGLUDEC 68104859361 Active Celestine PEARCE Active LEVEMIR FLEXTOUCH 100 UNIT/ML SC SOPN 35 units SC at 12-1pm, 35 units 12-1am INSULIN DETEMIR 83372925777 No Longer Active Celestine PEARCE Active REGLAN 10 MG TAB 0.5 po TID 30min prior to meals METOCLOPRAMIDE HCL 98561418844 Active Ang Markham MD Active ZANTAC 150 MG TAB 1 po BID RANITIDINE HCL 44785725513 Active Ang Markham MD Active DOXEPIN HCL 10 MG CAP 1 tablet nightly for the itch DOXEPIN HCL 74355717486 Active Ang Markham MD Active COLACE 100 MG CAP 1 po daily DOCUSATE SODIUM 69617042351 Active Gabriel Hunt DO Active NOVOLOG FLEXPEN 100 UNIT/ML SOPN Take 20 units TID with meals, plus 2u/50 for blood sugars above 150. Ratio vs. Carbs INSULIN ASPART 92753267709 Active Gabriel Hunt DO Active BD PEN NEEDLE DINESH U/F 32G X 4 MM MISC 5 a day INSULIN PEN NEEDLE 79447664439 Active Celestine PEARCE Active EMBRACE BLOOD GLUCOSE TEST STRP Test blood sugars 4 times daily and PRN 08/05 GLUCOSE BLOOD 85551333871 No Longer Active Celestine Sierraglari MANUFACTURING LEADER Active TRUEPLUS LANCETS 30G MISC 4 a day LANCETS 51645350682 Active Celestine Hoganari MANUFACTURING LEADER Active TRUETEST TEST STRP check blood sugars 4x/day GLUCOSE BLOOD 84005772626 Active Celestine Sierraglari MANUFACTURING LEADER Active TRUERESULT BLOOD GLUCOSE W/DEVICE KIT check blood sugars 4x a day BLOOD GLUCOSE MONITORING SUPPL 88620295957 Active Celestine Sierraglari MANUFACTURING LEADER Active LISINOPRIL 5 MG TABS 1 po qd LISINOPRIL 64605559494 Active Ang Markham MD Active PAXIL 20 MG TAB 1 tablet by mouth daily PAROXETINE HCL 48919708403 Active Ang Markham MD Active GENTAMICIN SULFATE 0.1 % EXT OINT Apply to open sores once a day. GENTAMICIN SULFATE 32071384411 No Longer Active Ang Markham MD Active ZOLPIDEM TARTRATE 10 MG TABS 1 po qHS PRN Insomnia ZOLPIDEM TARTRATE 05501582449 Active Ang Markham MD Active BACTRIM DS 800-160 MG TAB 1 tab by mouth twice daily TRIMETHOPRIM-SULFAMETHOXAZOLE 01657328590 No Longer Active Gloriajuliette Goveaharlan SILVICULTURIST Active LEVEMIR FLEXPEN 100 UNIT/ML SOLN 40 units SC at bedtime INSULIN DETEMIR No Longer Active Susan Adan RMA Active INSUPEN ULTRAFIN 31G X 6 MM MISC Use with insulin qid. DX: E11.9 INSULIN PEN NEEDLE 24614543499 Active Ang Markham MD Active ZOLOFT 100 MG TAB 1 po qHS SERTRALINE HCL 67957628107 No Longer Active Ang Markham MD Active MELOXICAM 15 MG TABS 1 po qd PRN Knee Pain MELOXICAM 72963596162 No Longer Active Ang Markham MD Active LIPITOR 40 MG TAB 1 po qHS ATORVASTATIN CALCIUM 93586341560 Active Ang Markham MD Active METFORMIN HCL 1000 MG TABS 1 tablet by mouth twice daily METFORMIN HCL 57730303988 Active Ang Markham MD Active CYCLOBENZAPRINE HCL 5 MG TABS 1 po qHS PRN Muscle pain CYCLOBENZAPRINE HCL 05737425234 Active Ang Markham MD Active COLACE 100 MG CAP 1 po BID PRN Constipation DOCUSATE SODIUM 29401183813 No Longer Active Ang Markham MD Active HYDROXYZINE HCL 25 MG TAB 1 TID PRN nerves HYDROXYZINE HCL 96152615647 Active Ang Markham MD Active IBUPROFEN 800 MG TABS 1 tab every 8 hours as needed for pain 2013 IBUPROFEN 29858705290 No Longer Active Ang Markham MD Active NITROFURANTOIN MACROCRYSTAL 100 MG CAPS 1 capsule PO bid x 7 days NITROFURANTOIN MACROCRYSTAL 04734586147 No Longer Active Ang Markham MD Active DIFLUCAN 150 MG TAB 1 qODay x 2 doses FLUCONAZOLE 75040371013 No Longer Active Jillpiedad Nguyenl DAYO Active CEFTIN 500 MG TAB 1 tablet by mouth twice daily for 7 days 07/24 CEFUROXIME AXETIL 06112298951 No Longer Active Anthony CARBONE Active ZOLOFT 50 MG TAB 1 tablet by mouth daily SERTRALINE HCL 57210714649 No Longer Active Anthony CARBONE Active ANUSOL-HC 2.5 % CREAM apply as needed HYDROCORTISONE (RECTAL) 46613227754 No Longer Active Anthony CARBONE Active COLACE 100 MG CAP 1 tab PO BID DOCUSATE SODIUM 81023164341 No Longer Active Anthony CARBONE Active TRINESSA (28) 0.18/0.215/0.25 MG-35 MCG TABS 1 po qd as directed NORGESTIM-ETH ESTRAD TRIPHASIC 50129335561 No Longer Active Anthony CARBONE Active [facility] MELATONIN 5 MG TABS 1-2 po qHS PRN Insomnia MELATONIN 14948040638 No Longer Active Anthony CARBONE Active ACYCLOVIR 400 MG TABS ACYCLOVIR 79888494554 No Longer Active Ang Markham MD Active HYDROXYZINE HCL 25 MG TABS 1 tab PO tid PRN itching HYDROXYZINE HCL 90196177866 No Longer Active Ang Markham MD Active DIFLUCAN 150 MG TAB 1 qODay x 2 doses FLUCONAZOLE 88158900011 No Longer Active Jillina Frazell SILVICULTURIST Active ACYCLOVIR 400 MG TABS 1 pill twice daily ACYCLOVIR 26975902576 No Longer Active Jillina Frazell SILVICULTURIST Active AZITHROMYCIN 250 MG TABS 2 po qd x 1 day, then 1 po qd x 4 days AZITHROMYCIN 53722334348 No Longer Active Eri Borges MD PhD Active AZITHROMYCIN 250 MG TABS take 2 po day 1 then take1 po days 2-5 AZITHROMYCIN 97784584956 No Longer Active Octaviano CARBONE Active ACYCLOVIR 400 MG TABS 1 po qd ACYCLOVIR 86492932710 No Longer Active Ang Markham MD Active PROZAC 40 MG CAPS 1 cap by mouth at bedtime FLUOXETINE HCL 12630658788 No Longer Active Ang Markham MD Active HYDROXYZINE HCL 25 MG TABS 1 tab PO tid PRN itching HYDROXYZINE HCL 25 MG TABS 061211 HYDROXYZINE HCL Inactive [facility] MELAT[facility]IN 5 MG TABS 1-2 po qHS PRN Insomnia [facility] MELATONIN 5 MG TABS 514399 MELATONIN Inactive TRINESSA (28) 0.18/0.215/0.25 MG-35 MCG TABS 1 po qd as directed TRINESSA (28) 0.18/0.215/0.25 MG-35 MCG TABS 978295 NORGESTIM-ETH ESTRAD TRIPHASIC Inactive COLACE 100 MG CAP 1 tab PO BID COLACE 100 MG CAP 5181391 DOCUSATE SODIUM Inactive ANUSOL-HC 2.5 % CREAM apply as needed ANUSOL-HC 2.5 % CREAM 660607 HYDROCORTISONE (RECTAL) Inactive ZOLOFT 50 MG TAB 1 tablet by mouth daily ZOLOFT 50 MG TAB 228386 SERTRALINE HCL Inactive CEFTIN 500 MG TAB 1 tablet by mouth twice daily for 7 days 07/24 CEFTIN 500 MG TAB 253510 CEFUROXIME AXETIL Inactive NITROFURANTOIN MACROCRYSTAL 100 MG CAPS 1 capsule PO bid x 7 days NITROFURANTOIN MACROCRYSTAL 100 MG CAPS 3864248 NITROFURANTOIN MACROCRYSTAL Inactive IBUPROFEN 800 MG TABS 1 tab every 8 hours as needed for pain 2013 IBUPROFEN 800 MG TABS 650649 IBUPROFEN Inactive COLACE 100 MG CAP 1 po BID PRN Constipation COLACE 100 MG CAP 7722847 DOCUSATE SODIUM Inactive MELOXICAM 15 MG TABS 1 po qd PRN Knee Pain MELOXICAM 15 MG TABS 342325 MELOXICAM Inactive LEVEMIR FLEXPEN 100 UNIT/ML SOLN 40 units SC at bedtime LEVEMIR FLEXPEN 100 UNIT/ML SOLN INSULIN DETEMIR Inactive GENTAMICIN SULFATE 0.1 % EXT OINT Apply to open sores once a day. GENTAMICIN SULFATE 0.1 % EXT OINT 189016 GENTAMICIN SULFATE Inactive EMBRACE BLOOD GLUCOSE TEST STRP Test blood sugars 4 times daily and PRN 08/05 EMBRACE BLOOD GLUCOSE TEST STRP GLUCOSE BLOOD Inactive LEVEMIR FLEXTOUCH 100 UNIT/ML SC SOPN 35 units SC at 12-1pm, 35 units 12-1am LEVEMIR FLEXTOUCH 100 UNIT/ML SC SOPN INSULIN DETEMIR Inactive CORTISPORIN 3.5-61859-2 SOLN 4gtts in affected ear QID x 7 days CORTISPORIN 3.5-25330-5 [facility] 118304 [id number] Inactive ACYCLOVIR 400 MG TABS 1 po qd ACYCLOVIR 400 MG TABS 19720928 ACYCLOVIR Inactive AZITHROMYCIN 250 MG TABS take 2 po day 1 then take1 po days 2-5 AZITHROMYCIN 250 MG TABS 9394572 AZITHROMYCIN Inactive AZITHROMYCIN 250 MG TABS 2 po qd x 1 day, then 1 po qd x 4 days AZITHROMYCIN 250 MG TABS 3284977 AZITHROMYCIN Inactive ACYCLOVIR 400 MG TABS 1 pill twice daily ACYCLOVIR 400 MG TABS 19720928 ACYCLOVIR Inactive DIFLUCAN 150 MG TAB 1 qODay x 2 doses DIFLUCAN 150 MG TAB 19760606 FLUCONAZOLE Inactive ACYCLOVIR 400 MG TABS ACYCLOVIR 400 MG TABS 19720928 ACYCLOVIR Inactive DIFLUCAN 150 MG TAB 1 qODay x 2 doses DIFLUCAN 150 MG TAB 114362 FLUCONAZOLE Inactive BACTRIM DS 800-160 MG TAB 1 tab by mouth twice daily BACTRIM DS 800-160 MG TAB 787715 TRIMETHOPRIM-SULFAMETHOXAZOLE Inactive Advance Directives Directive Description Start [...] Panel - Chemistry sodium, serum 130 mmol/L 658-536 3240/10/12 carbon dioxide, venous blood 28.1 mmol/L 21.0-32.0 potassium, serum 3.9 mmol/L 3.5-5.2 chloride, serum 91 mmol/L 98-107 blood glucose 547 mg/dL 65-110 urea nitrogen, blood 3 mg/dL 7-18 creatinine, serum 0.78 mg/dL 0.55-1.30 alanine aminotransferase (SGPT), serum 11 U/L 12-78 aspartate aminotransferase (SGOT), serum 7 U/L 15-37 calcium, serum 8.8 mg/dL 8.5-10.1 bilirubin, serum, total 0.30 mg/dL 0.00-1.00 cholesterol, serum 221 mg/dL 124-935 1891/10/12 triglyceride, serum, fasting 590 mg/dL 30-200 HDL cholesterol, serum 45 mg/dL 32-96 LDL cholesterol, serum 58 mg/dL 0-130 Lab Report: HGBA1C - Chemistry hemoglobin A1C, blood, as % of total hemoglobin 11.4 % 4.3-6.0 Lab Report: UADIP W/MICRO, AUTO, CBC W/DIFF, Comp. Metabolic Panel - Chemistry RBC, urine, dipstick Negative Negative sodium, serum 133 mmol/L 611-276 5162/06/03 carbon dioxide, venous blood 33.4 mmol/L [...] nitrite, urine, semiquantitative Negative Negative Lab Report: [facility] [place] - Chemistry human [...] mg/dL Encounters Code Encounter Date Provider Facility CPT-14913 Level 3 Est. Patient 15:02:19 CDT Shreya Velazquez [facility] CPT-19413 Level 3 Est. Patient 13:22:25 CDT Gabriel Hunt [facility] CPT-67330 Level 4 Est. Patient 16:02:22 CDT Ang Markham MD [facility] CPT-51905 Level 3 Est. [facility]21[facility] Level 3 Est. Patient 17:02:56 CDT Gabriel Hunt [facility] CPT-30531 Level 3 Est. Patient 14:46:22 CDT Da Romero [facility] CPT-15389 Level 4 Est. Patient 13:55:20 CDT Ang Markham MD [facility] CPT-75877 Level 4 Est. Patient 16:10:09 CDT Celestine Huerta [facility] CPT-13392 Level 3 Est. Patient 13:51:24 CDT Ang Markham MD [facility] CPT-26874 Level 3 Est. Patient 18:42:15 CDT Gabriel Hunt [facility] CPT-09955 Level 5 Est. [facility] 14:40:[address] [facility] CPT-59410 Level 4 Est. Patient 14:36:17 CDT Ang Markham MD [facility] CPT-69155 Level 3 Est. Patient 11:13:47 CHEMICAL INSPECTOR Ang Markham MD [facility] CPT-00969 Level 3 Est. Patient 11:59:20 CHEMICAL INSPECTOR Gloria Dunbar [facility] CPT-24279 Level 3 Est. Patient 17:32:37 CHEMICAL INSPECTOR Gloria Dunbar [facility] CPT-80089 Level 4 Est. Patient 16:39:07 CDT Ang Markham MD [facility] CPT-94370 Level 3 Est. Patient 16:35:50 CDT Ang Markham MD [facility] CPT-72552 Level 4 Est. Patient 13:53:06 CHEMICAL INSPECTOR Ang Markham MD [facility] CPT-74336 Level 3 Est. Patient 08:58:08 CHEMICAL INSPECTOR Ang Markham MD [facility] CPT-58680 Level 3 Est. Patient 18:48:[address] [facility] CPT-54912 Level 3 Est. Patient 12:16:59 CDT Gabriel Hunt DO [facility] CPT-41042 Level 3 Est. Patient 18:57:[address] [facility] CPT-93621 Level 3 Est. Patient 13:59:22 CHEMICAL INSPECTOR Ang Markham MD [facility] CPT-54732 Level 4 Est. Patient 10:36:08 CHEMICAL INSPECTOR Ang Markham MD [facility] CPT-90526 Level 3 Est. Patient 16:27:02 CDT Eri Borges MD PhD [facility] CPT-54728 Level 3 Est. Patient 10:36:[address] [facility] CPT-25766 Level 4 New Patient 08:58:06 CDT Ang Markham MD [facility] Procedures Code Procedure Name Date Entry Date Standard Description CPT-47663 LS spine comp w obliques - XRAY USE ONLY 15:34:48 CDT CPT-53604 Lipid - LAB USE ONLY 15:28:39 CDT CPT-73846 CMP - LAB USE ONLY 15:28:39 CDT CPT-51662 Venipuncture Draw Fee 15:28:39 CDT CPT-82338 Abd compl w upright - XRAY USE ONLY 14:09:39 CDT 02/28 CPT-79334 Venipuncture Draw Fee 12:25:15 CDT CPT-93782 Knee 3V 16:48:40 CDT CPT-OV Office Visit 16:27:13 CDT CPT-OV Office Visit 16:21:19 CDT CPT-35815 Sono pelvis non OB uterus ovaries cervix 09:37:28 CDT
--- OUTSIDE RECORDS SUMMARY | 2018-12-22 01:45 | XMS REPORT | Clinical Summary ---
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 V58.67 Active Celestine [...] Markham MD Anal or rectal pain ICD-569.42 Nathna Markham MD CANDIDAL VAGINITIS ICD-112.1 Inactive Ang [...] I, with hypoglycemia ICD-250.81 Nathan Markham MD skilled nursing use 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 ICD-V58.67 Nathan Markham [...] four hours as needed for pain ACETAMINOPHEN-CODEINE 44255568482 Active Conner Hills MD Active CLINDAMYCIN HCL 300 MG ORAL CAPS 1 four times a day CLINDAMYCIN HCL 12747729028 Active Conner Hills MD Active LEVAQUIN 500 MG TABS 1 daily for infection LEVOFLOXACIN 24891236582 No Longer Active Conner Hills MD Active DOXEPIN HCL 10 MG CAP 1 tablet nightly for the itch DOXEPIN HCL 59592217848 No Longer Active Conner Hills MD Active TRESIBA FLEXTOUCH 200 UNIT/ML SC SOPN Take 70 units daily at mid-night to 1 am. INSULIN DEGLUDEC 21569522512 No Longer Active Conner Hills MD Active METFORMIN HCL 1000 MG TABS 1 tablet by mouth twice daily METFORMIN HCL 80071663191 No Longer Active Conner Hills MD Active LIPITOR 40 MG TAB 1 po qHS ATORVASTATIN CALCIUM 00777825310 No Longer Active Conner Hills MD Active GEMFIBROZIL 600 MG TABS 1 po BID GEMFIBROZIL 59241109366 No Longer Active Conner Hills MD Active CORTISPORIN 3.5-08328-7 SOLN 4gtts in affected ear QID x 7 days [id number] 97132140139 No Longer Active Ang Markham MD Active LEVEMIR FLEXTOUCH 100 UNIT/ML SC SOPN 35 units SC at 12-1pm, 35 units 12-1am INSULIN DETEMIR 34848198880 No Longer Active Celestine MENDEZP Active REGLAN 10 MG TAB 0.5 po TID 30min prior to meals METOCLOPRAMIDE HCL 07652519300 Active Ang Markham MD Active ZANTAC 150 MG TAB 1 po BID RANITIDINE HCL 86180438693 Active Ang Markham MD Active COLACE 100 MG CAP 1 po daily DOCUSATE SODIUM 93034648208 Active Gabriel Hunt DO Active NOVOLOG FLEXPEN 100 UNIT/ML SOPN Take 20 units TID with meals, plus 2u/50 for blood sugars above 150. Ratio vs. Carbs INSULIN ASPART 47971271713 Active Gabriel Hunt DO Active BD PEN NEEDLE DINESH U/F 32G X 4 MM MISC 5 a day INSULIN PEN NEEDLE 42824835031 Active Malwalter Ziglari KILN HEAD HOUSE OPERATOR Active EMBRACE BLOOD GLUCOSE TEST STRP Test blood sugars 4 times daily and PRN 08/05 GLUCOSE BLOOD 95890802611 No Longer Active Malstepheneh Ziglari KILN HEAD HOUSE OPERATOR Active TRUEPLUS LANCETS 30G MISC 4 a day LANCETS 26293640125 Active Maliheh Ziglari KILN HEAD HOUSE OPERATOR Active TRUETEST TEST STRP check blood sugars 4x/day GLUCOSE BLOOD 57968542889 Active Maliheh Ziglari KILN HEAD HOUSE OPERATOR Active TRUERESULT BLOOD GLUCOSE W/DEVICE KIT check blood sugars 4x a day BLOOD GLUCOSE MONITORING SUPPL 35327936379 Active Malstepheneh Ziglari KILN HEAD HOUSE OPERATOR Active LISINOPRIL 5 MG TABS 1 po qd LISINOPRIL 03251235362 Active Ang Markham MD Active PAXIL 20 MG TAB 1 tablet by mouth daily PAROXETINE HCL 18811453852 Active Ang Markham MD Active GENTAMICIN SULFATE 0.1 % EXT OINT Apply to open sores once a day. GENTAMICIN SULFATE 21809871864 No Longer Active Ang Markham MD Active ZOLPIDEM TARTRATE 10 MG TABS 1 po qHS PRN Insomnia ZOLPIDEM TARTRATE 88450962935 Active Ang Markham MD Active BACTRIM DS 800-160 MG TAB 1 tab by mouth twice daily TRIMETHOPRIM-SULFAMETHOXAZOLE 13572241405 No Longer Active Gloria Dunbar WATCH DIAL STONER Active LEVEMIR FLEXPEN 100 UNIT/ML SOLN 40 units SC at bedtime INSULIN DETEMIR No Longer Active Susan Arellano RMA Active INSUPEN ULTRAFIN 31G X 6 MM MISC Use with insulin qid. DX: E11.9 INSULIN PEN NEEDLE 41156648554 Active Ang Markham MD Active ZOLOFT 100 MG TAB 1 po qHS SERTRALINE HCL 34737810324 No Longer Active Ang Markham MD Active MELOXICAM 15 MG TABS 1 po qd PRN Knee Pain MELOXICAM 02509895456 No Longer Active Ang Markham MD Active CYCLOBENZAPRINE HCL 5 MG TABS 1 po qHS PRN Muscle pain CYCLOBENZAPRINE HCL 63833725546 Active Ang Markham MD Active COLACE 100 MG CAP 1 po BID PRN Constipation DOCUSATE SODIUM 72681550469 No Longer Active Ang Markham MD Active HYDROXYZINE HCL 25 MG TAB 1 TID PRN nerves HYDROXYZINE HCL 66158106078 Active Ang Markham MD Active IBUPROFEN 800 MG TABS 1 tab every 8 hours as needed for pain 2013 IBUPROFEN 58680132351 No Longer Active Ang Markham MD Active NITROFURANTOIN MACROCRYSTAL 100 MG CAPS 1 capsule PO bid x 7 days NITROFURANTOIN MACROCRYSTAL 79792977146 No Longer Active Ang Markham MD Active DIFLUCAN 150 MG TAB 1 qODay x 2 doses FLUCONAZOLE 88079123452 No Longer Active Da Romero APRN Active CEFTIN 500 MG TAB 1 tablet by mouth twice daily for 7 days 07/24 CEFUROXIME AXETIL 93516576585 No Longer Active Anthony CARBONE Active ZOLOFT 50 MG TAB 1 tablet by mouth daily SERTRALINE HCL 89029180829 No Longer Active Atnhony CARBONE Active ANUSOL-HC 2.5 % CREAM apply as needed HYDROCORTISONE (RECTAL) 44411711466 No Longer Active Anthony CARBONE Active COLACE 100 MG CAP 1 tab PO BID DOCUSATE SODIUM 44444569599 No Longer Active Anthony CARBONE Active TRINESSA (28) 0.18/0.215/0.25 MG-35 MCG TABS 1 po qd as directed NORGESTIM-ETH ESTRAD TRIPHASIC 19526700462 No Longer Active Anthony CARBONE Active [facility] MELATONIN 5 MG TABS 1-2 po qHS PRN Insomnia MELATONIN 45818500076 No Longer Active Anthony CARBONE Active ACYCLOVIR 400 MG TABS ACYCLOVIR 23382278655 No Longer Active Ang Markham MD Active HYDROXYZINE HCL 25 MG TABS 1 tab PO tid PRN itching HYDROXYZINE HCL 87397234572 No Longer Active Ang Markham MD Active DIFLUCAN 150 MG TAB 1 qODay x 2 doses FLUCONAZOLE 64832088927 No Longer Active Da Romero APRN Active ACYCLOVIR 400 MG TABS 1 pill twice daily ACYCLOVIR 16946844480 No Longer Active Jillina Nick OSHEA Active AZITHROMYCIN 250 MG TABS 2 po qd x 1 day, then 1 po qd x 4 days AZITHROMYCIN 57191067101 No Longer Active Eri Borges MD PhD Active AZITHROMYCIN 250 MG TABS take 2 po day 1 then take1 po days 2-5 AZITHROMYCIN 06024942329 No Longer Active Octaviano CARBONE Active ACYCLOVIR 400 MG TABS 1 po qd ACYCLOVIR 57781894223 No Longer Active Ang Markham MD Active PROZAC 40 MG CAPS 1 cap by mouth at bedtime FLUOXETINE HCL 61010284821 No Longer Active Ang Markham MD Active HYDROXYZINE HCL 25 MG TABS 1 tab PO tid PRN itching HYDROXYZINE HCL 25 MG TABS 267814 HYDROXYZINE HCL Inactive [facility] MELATONIN 5 MG TABS 1-2 po qHS PRN Insomnia [facility] MELATONIN 5 MG TABS 016460 MELATONIN Inactive TRINESSA (28) 0.18/0.215/0.25 MG-35 MCG TABS 1 po qd as directed TRINESSA (28) 0.18/0.215/0.25 MG-35 MCG TABS 057415 NORGESTIM-ETH ESTRAD TRIPHASIC Inactive COLACE 100 MG CAP 1 tab PO BID COLACE 100 MG CAP 7529872 DOCUSATE SODIUM Inactive ANUSOL-HC 2.5 % CREAM apply as needed ANUSOL-HC 2.5 % CREAM 938570 HYDROCORTISONE (RECTAL) Inactive ZOLOFT 50 MG TAB 1 tablet by mouth daily ZOLOFT 50 MG TAB 384638 SERTRALINE HCL Inactive CEFTIN 500 MG TAB 1 tablet by mouth twice daily for 7 days 07/24 CEFTIN 500 MG TAB 191541 CEFUROXIME AXETIL Inactive NITROFURANTOIN MACROCRYSTAL 100 MG CAPS 1 capsule PO bid x 7 days NITROFURANTOIN MACROCRYSTAL 100 MG CAPS 2954245 NITROFURANTOIN MACROCRYSTAL Inactive IBUPROFEN 800 MG TABS 1 tab every 8 hours as needed for pain 2013 IBUPROFEN 800 MG TABS 737940 IBUPROFEN Inactive COLACE 100 MG CAP 1 po BID PRN Constipation COLACE 100 MG CAP 6885039 DOCUSATE SODIUM Inactive MELOXICAM 15 MG TABS 1 po qd PRN Knee Pain MELOXICAM 15 MG TABS 599453 MELOXICAM Inactive LEVEMIR FLEXPEN 100 UNIT/ML SOLN 40 units SC at bedtime LEVEMIR FLEXPEN 100 UNIT/ML SOLN INSULIN DETEMIR Inactive GENTAMICIN SULFATE 0.1 % EXT OINT Apply to open sores once a day. GENTAMICIN SULFATE 0.1 % EXT OINT 910978 GENTAMICIN SULFATE Inactive EMBRACE BLOOD GLUCOSE TEST STRP Test blood sugars 4 times daily and PRN 08/05 EMBRACE BLOOD GLUCOSE TEST STRP GLUCOSE BLOOD Inactive LEVEMIR FLEXTOUCH 100 UNIT/ML SC SOPN 35 units SC at 12-1pm, 35 units 12-1am LEVEMIR FLEXTOUCH 100 UNIT/ML SC SOPN INSULIN DETEMIR Inactive CORTISPORIN 3.5-57998-7 SOLN 4gtts in affected ear QID x 7 days CORTISPORIN 3.5-00889-0 SOLN 398097 [id number] Inactive GEMFIBROZIL 600 MG TABS 1 po BID GEMFIBROZIL 600 MG TABS 912316 GEMFIBROZIL Inactive LIPITOR 40 MG TAB 1 po qHS LIPITOR 40 MG TAB 728642 ATORVASTATIN CALCIUM Inactive METFORMIN HCL 1000 MG TABS 1 tablet by mouth twice daily METFORMIN HCL 1000 MG TABS 213474 METFORMIN HCL Inactive TRESIBA FLEXTOUCH 200 UNIT/ML SC SOPN Take 70 units daily at mid-night to 1 am. TRESIBA FLEXTOUCH 200 UNIT/ML SC SOPN INSULIN DEGLUDEC Inactive DOXEPIN HCL 10 MG CAP 1 tablet nightly for the itch DOXEPIN HCL 10 MG CAP 7243699 DOXEPIN HCL Inactive LEVAQUIN 500 MG TABS 1 daily for infection LEVAQUIN 500 MG TABS 337016 LEVOFLOXACIN Inactive ACYCLOVIR 400 MG TABS 1 po qd ACYCLOVIR 400 MG TABS 167617 ACYCLOVIR Inactive AZITHROMYCIN 250 MG TABS take 2 po day 1 then take1 po days 2-5 AZITHROMYCIN 250 MG TABS 0766432 AZITHROMYCIN Inactive AZITHROMYCIN 250 MG TABS 2 po qd x 1 day, then 1 po qd x 4 days AZITHROMYCIN 250 MG TABS 2679593 AZITHROMYCIN Inactive ACYCLOVIR 400 MG TABS 1 pill twice daily ACYCLOVIR 400 MG TABS 19720928 ACYCLOVIR Inactive DIFLUCAN 150 MG TAB 1 qODay x 2 doses DIFLUCAN 150 MG TAB 720663 FLUCONAZOLE Inactive ACYCLOVIR 400 MG TABS ACYCLOVIR 400 MG TABS 19720928 ACYCLOVIR Inactive DIFLUCAN 150 MG TAB 1 qODay x 2 doses DIFLUCAN 150 MG TAB 19760606 FLUCONAZOLE Inactive BACTRIM DS 800-160 MG TAB 1 tab by mouth twice daily BACTRIM DS 800-160 MG TAB 864460 TRIMETHOPRIM-SULFAMETHOXAZOLE Inactive Advance Directives Directive Description Start [...] Panel - Chemistry sodium, serum 130 mmol/L 409-161 9267/10/12 carbon dioxide, venous blood 28.1 mmol/L 21.0-32.0 potassium, serum 3.9 mmol/L 3.5-5.2 chloride, serum 91 mmol/L 98-107 blood glucose 547 mg/dL 65-110 urea nitrogen, blood 3 mg/dL 7-18 creatinine, serum 0.78 mg/dL 0.55-1.30 alanine aminotransferase (SGPT), serum 11 U/L 12-78 aspartate aminotransferase (SGOT), serum 7 U/L 15-37 calcium, serum 8.8 mg/dL 8.5-10.1 bilirubin, serum, total 0.30 mg/dL 0.00-1.00 cholesterol, serum 221 mg/dL 616-195 2853/10/12 triglyceride, serum, fasting 590 mg/dL 30-200 HDL cholesterol, serum 45 mg/dL 32-96 LDL cholesterol, serum 58 mg/dL 0-130 Lab Report: HGBA1C - Chemistry hemoglobin A1C, blood, as % of total hemoglobin 11.4 % 4.3-6.0 Lab Report: UADIP W/MICRO, AUTO, CBC W/DIFF, Comp. Metabolic Panel - Chemistry RBC, urine, dipstick Negative Negative sodium, serum 133 mmol/L 194-664 0314/06/03 carbon dioxide, venous blood 33.4 mmol/L 21.0-32.0 [...] nitrite, urine, semiquantitative Negative Negative Lab Report: [place] - Chemistry human chorionic gonadotropin, urine, qualitative [...] mg/dL Encounters Code Encounter Date Provider Facility CPT-94907 Level 3 Est. Patient 10:22:30 CDT Conner Hills MD [facility] CPT-97065 Level 3 Est. Patient 15:02:19 CDT Shreya Velazquez [facility] CPT-41914 Level 3 Est. Patient 13:22:25 CDT Gabriel Hunt [facility] CPT-32387 Level 4 Est. Patient 16:02:22 CDT Ang Markham MD [facility] CPT-95417 Level 3 Est. [facility]:21[facility] Est[facility] Patient 17:02:56 CDT Gabriel Hunt [facility] CPT-25333 Level 3 Est. Patient 14:46:22 CDT Da Romero [facility] CPT-92285 Level 4 Est. Patient 13:55:20 CDT Ang Markham MD [facility] CPT-45336 Level 4 Est. Patient 16:10:09 CDT Celestine Huerta [facility] CPT-33589 Level 3 Est. Patient 13:51:24 CDT Ang Markham MD [facility] CPT-82229 Level 3 Est. Patient 18:42:15 CDT Gabriel Hunt [facility] CPT-26399 Level 5 Est. Patient 14:40:14 CDT [facility] CPT-85081 Level 4 Est. Patient 14:36:17 CDT Ang Markham MD [facility] CPT-65098 Level 3 Est. Patient 11:13:47 VP REVENUE CYCLE Ang Markham MD [facility] CPT-37129 Level 3 Est. Patient 11:59:20 VP REVENUE CYCLE Gloria Dunbar [facility] CPT-12035 Level 3 Est. Patient 17:32:37 VP REVENUE CYCLE Gloria Dunbar [facility] CPT-85186 Level 4 Est. Patient 16:39:07 CDT Ang Markham MD [facility] CPT-41157 Level 3 Est. Patient 16:35:50 CDT Ang Markham MD [facility] CPT-49028 Level 4 Est. Patient 13:53:06 VP REVENUE CYCLE Ang Markham MD [facility] CPT-08111 Level 3 Est. Patient 08:58:08 VP REVENUE CYCLE Ang Markham MD [facility] CPT-16360 Level 3 Est. Patient 18:48:29 CDT Anthony Whitfield [facility] CPT-76010 Level 3 Est. Patient 12:16:59 CDT Gabriel Hunt DO [facility] CPT-22151 Level 3 Est. Patient 18:57:15 CDT Anthony Whitfield [facility] CPT-30671 Level 3 Est. Patient 13:59:22 VP REVENUE CYCLE Ang Markham MD [facility] CPT-26530 Level 4 Est. Patient 10:36:08 VP REVENUE CYCLE Ang Markham MD [facility] CPT-67255 Level 3 Est. Patient 16:27:02 CDT Eri Borges MD PhD [facility] CPT-27365 Level 3 Est. Patient 10:36:43 CDT Octaviano Dempsey [facility] CPT-16313 Level 4 New Patient 08:58:06 CDT Ang Markham MD [facility] Procedures Code Procedure Name Date Entry Date Standard Description CPT-48390 LS spine comp w obliques - XRAY USE ONLY 15:34:48 CDT CPT-89652 Lipid - LAB USE ONLY 15:28:39 CDT CPT-98346 CMP - LAB USE ONLY 15:28:39 CDT CPT-36502 Venipuncture Draw Fee 15:28:39 CDT CPT-21621 Abd compl w upright - XRAY USE ONLY 14:09:39 CDT 02/28 CPT-89937 Venipuncture Draw Fee 12:25:15 CDT CPT-61550 Knee 3V 16:48:40 CDT CPT-OV Office Visit 16:27:13 CDT CPT-OV Office Visit 16:21:19 CDT CPT-35971 Sono pelvis non OB uterus ovaries cervix 09:37:28 CDT
--- OUTSIDE RECORDS SUMMARY | 2018-12-22 01:46 | XMS REPORT | Clinical Summary ---
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 Ratio vs. Carbs INSULIN ASPART 34133781501 Active Gabriel Hunt DO Active BD PEN NEEDLE DINESH U/F 32G X 4 MM MISC 5 a day INSULIN PEN NEEDLE 12348694878 Active Maliheh Ziglari STAFF [employer] T[employer]ICAL OFFICER Active LEVEMIR FLEXTOUCH 100 UNIT/ML SC SOPN 30 units SC at 12-1pm, 30 units 12-1am INSULIN DETEMIR 19715405568 Active Maliheh Ziglari STAFF [employer] T[employer]ICAL OFFICER Active EMBRACE BLOOD GLUCOSE TEST STRP Test blood sugars 4 times daily and PRN 08/05 GLUCOSE BLOOD 63357391379 No Longer Active Maliheh Ziglari STAFF [employer] TACTICAL OFFICER Active TRUEPLUS LANCETS 30G MISC 4 a day LANCETS 04895218947 Active Maliheh Ziglari STAFF [employer] TACTICAL OFFICER Active TRUETEST TEST STRP check blood sugars 4x/day GLUCOSE BLOOD 84220201141 Active Maliheh Ziglari STAFF AIR TACTICAL OFFICER Active TRUERESULT BLOOD GLUCOSE W/DEVICE KIT check blood sugars 4x a day BLOOD GLUCOSE MONITORING SUPPL 86139104013 Active Maliheh Ziglari STAFF AIR TACTICAL OFFICER Active LISINOPRIL 5 MG TABS 1 po qd LISINOPRIL 13467151196 Active Ang Markham MD Active PAXIL 20 MG TAB 1 tablet by mouth daily PAROXETINE HCL 10090820093 Active Ang Markham MD Active GENTAMICIN SULFATE 0.1 % EXT OINT Apply to open sores once a day. GENTAMICIN SULFATE 90163539664 No Longer Active Ang Markham MD Active ZOLPIDEM TARTRATE 10 MG TABS 1 po qHS PRN Insomnia ZOLPIDEM TARTRATE 29412440431 Active Ang Markham MD Active BACTRIM DS 800-160 MG TAB 1 tab by mouth twice daily TRIMETHOPRIM-SULFAMETHOXAZOLE 67575504330 No Longer Active Gloria Dunbar MANAGER REPORTING Active LEVEMIR FLEXPEN 100 UNIT/ML SOLN 40 units SC at bedtime INSULIN DETEMIR No Longer Active Susan Arellano RMA Active INSUPEN ULTRAFIN 31G X 6 MM MISC Use with insulin qid. DX: E11.9 INSULIN PEN NEEDLE 07962427312 Active Ang Markham MD Active ZOLOFT 100 MG TAB 1 po qHS SERTRALINE HCL 89103007530 No Longer Active Ang Markham MD Active MELOXICAM 15 MG TABS 1 po qd PRN Knee Pain MELOXICAM 77539660901 No Longer Active Ang Markham MD Active LIPITOR 40 MG TAB 1 po qHS ATORVASTATIN CALCIUM 35529213033 Active Ang Markham MD Active METFORMIN HCL 1000 MG TABS 1 tablet by mouth twice daily METFORMIN HCL 04234306109 Active Ang Markham MD Active CYCLOBENZAPRINE HCL 5 MG TABS 1 po qHS PRN Muscle pain CYCLOBENZAPRINE HCL 92299807105 Active nAg Markham MD Active COLACE 100 MG CAP 1 po BID PRN Constipation DOCUSATE SODIUM 61505467064 No Longer Active Ang Markham MD Active HYDROXYZINE HCL 25 MG TAB 1 TID PRN nerves HYDROXYZINE HCL 88492738457 Active Ang Markham MD Active IBUPROFEN 800 MG TABS 1 tab every 8 hours as needed for pain 2013 IBUPROFEN 70886884537 No Longer Active Ang Markham MD Active NITROFURANTOIN MACROCRYSTAL 100 MG CAPS 1 capsule PO bid x 7 days NITROFURANTOIN MACROCRYSTAL 77382124878 No Longer Active Ang Markham MD Active DIFLUCAN 150 MG TAB 1 qODay x 2 doses FLUCONAZOLE 39974030469 No Longer Active Da Romero MANAGER REPORTING Active CEFTIN 500 MG TAB 1 tablet by mouth twice daily for 7 days 07/24 CEFUROXIME AXETIL 67417460635 No Longer Active Anthony CARBONE Active ZOLOFT 50 MG TAB 1 tablet by mouth daily SERTRALINE HCL 92155812204 No Longer Active Anthony CARBONE Active ANUSOL-HC 2.5 % CREAM apply as needed HYDROCORTISONE (RECTAL) 45157975934 No Longer Active Anthony CARBONE Active COLACE 100 MG CAP 1 tab PO BID DOCUSATE SODIUM 80360574250 No Longer Active Anthony CARBONE Active TRINESSA (28) 0.18/0.215/0.25 MG-35 MCG TABS 1 po qd as directed NORGESTIM-ETH ESTRAD TRIPHASIC 40825192054 No Longer Active Anthony CARBONE Active [facility] MELATONIN 5 MG TABS 1-2 po qHS PRN Insomnia MELATONIN 67422249221 No Longer Active Anthony CARBONE Active ACYCLOVIR 400 MG TABS ACYCLOVIR 17593718783 No Longer Active Ang Markham MD Active HYDROXYZINE HCL 25 MG TABS 1 tab PO tid PRN itching HYDROXYZINE HCL 90438671245 No Longer Active Ang Markham MD Active DIFLUCAN 150 MG TAB 1 qODay x 2 doses FLUCONAZOLE 72493479310 No Longer Active Da Romero APRN Active ACYCLOVIR 400 MG TABS 1 pill twice daily ACYCLOVIR 14761108698 No Longer Active Da Romero APRN Active AZITHROMYCIN 250 MG TABS 2 po qd x 1 day, then 1 po qd x 4 days AZITHROMYCIN 44133203059 No Longer Active Eri Borges MD PhD Active AZITHROMYCIN 250 MG TABS take 2 po day 1 then take1 po days 2-5 AZITHROMYCIN 68892525855 No Longer Active Octaviano CARBONE Active ACYCLOVIR 400 MG TABS 1 po qd ACYCLOVIR 14717822340 No Longer Active Ang Markham MD Active PROZAC 40 MG CAPS 1 cap by mouth at bedtime FLUOXETINE HCL 92994131858 No Longer Active Ang Markham MD Active HYDROXYZINE HCL 25 MG TABS 1 tab PO tid PRN itching HYDROXYZINE HCL 25 MG TABS 558002 HYDROXYZINE HCL Inactive [facility] MELATONIN 5 MG TABS 1-2 po qHS PRN Insomnia [facility] MELATONIN 5 MG TABS 662500 MELATONIN Inactive TRINESSA (28) 0.18/0.215/0.25 MG-35 MCG TABS 1 po qd as directed TRINESSA (28) 0.18/0.215/0.25 MG-35 MCG TABS 354458 NORGESTIM-ETH ESTRAD TRIPHASIC Inactive COLACE 100 MG CAP 1 tab PO BID COLACE 100 MG CAP 1332076 DOCUSATE SODIUM Inactive ANUSOL-HC 2.5 % CREAM apply as needed ANUSOL-HC 2.5 % CREAM 083097 HYDROCORTISONE (RECTAL) Inactive ZOLOFT 50 MG TAB 1 tablet by mouth daily ZOLOFT 50 MG TAB 737859 SERTRALINE HCL Inactive CEFTIN 500 MG TAB 1 tablet by mouth twice daily for 7 days 07/24 CEFTIN 500 MG TAB 991025 CEFUROXIME AXETIL Inactive NITROFURANTOIN MACROCRYSTAL 100 MG CAPS 1 capsule PO bid x 7 days NITROFURANTOIN MACROCRYSTAL 100 MG CAPS 5295051 NITROFURANTOIN MACROCRYSTAL Inactive IBUPROFEN 800 MG TABS 1 tab every 8 hours as needed for pain 2013 IBUPROFEN 800 MG TABS 553434 IBUPROFEN Inactive COLACE 100 MG CAP 1 po BID PRN Constipation COLACE 100 MG CAP 6737869 DOCUSATE SODIUM Inactive MELOXICAM 15 MG TABS 1 po qd PRN Knee Pain MELOXICAM 15 MG TABS 416520 MELOXICAM Inactive LEVEMIR FLEXPEN 100 UNIT/ML SOLN 40 units SC at bedtime LEVEMIR FLEXPEN 100 UNIT/ML SOLN INSULIN DETEMIR Inactive GENTAMICIN SULFATE 0.1 % EXT OINT Apply to open sores once a day. GENTAMICIN SULFATE 0.1 % EXT OINT 956749 GENTAMICIN SULFATE Inactive EMBRACE BLOOD GLUCOSE TEST STRP Test blood sugars 4 times daily and PRN 08/05 EMBRACE BLOOD GLUCOSE TEST STRP GLUCOSE BLOOD Inactive ACYCLOVIR 400 MG TABS 1 po qd ACYCLOVIR 400 MG TABS 19720928 ACYCLOVIR Inactive AZITHROMYCIN 250 MG TABS take 2 po day 1 then take1 po days 2-5 AZITHROMYCIN 250 MG TABS 8916809 AZITHROMYCIN Inactive AZITHROMYCIN 250 MG TABS 2 po qd x 1 day, then 1 po qd x 4 days AZITHROMYCIN 250 MG TABS 6573259 AZITHROMYCIN Inactive ACYCLOVIR 400 MG TABS 1 pill twice daily ACYCLOVIR 400 MG TABS 19720928 ACYCLOVIR Inactive DIFLUCAN 150 MG TAB 1 qODay x 2 doses DIFLUCAN 150 MG TAB 412819 FLUCONAZOLE Inactive ACYCLOVIR 400 MG TABS ACYCLOVIR 400 MG TABS 19720928 ACYCLOVIR Inactive DIFLUCAN 150 MG TAB 1 qODay x 2 doses DIFLUCAN 150 MG TAB 032187 FLUCONAZOLE Inactive BACTRIM DS 800-160 MG TAB 1 tab by mouth twice daily BACTRIM DS 800-160 MG TAB 151781 TRIMETHOPRIM-SULFAMETHOXAZOLE Inactive Advance Directives Directive Description Start [...] HGBA1C - Chemistry sodium, serum 134 mmol/L 816-506 3459/03/16 carbon dioxide, venous blood 34.5 mmol/L 21.0-32.0 potassium, serum 4.6 mmol/L 3.5-5.2 chloride, serum 93 mmol/L 98-107 blood glucose 408 mg/dL 65-110 urea nitrogen, blood 3 mg/dL 7-18 creatinine, serum 0.58 mg/dL 0.55-1.30 alanine aminotransferase (SGPT), serum 11 U/L 12-78 aspartate aminotransferase (SGOT), serum 8 U/L 15-37 calcium, serum 9.2 mg/dL 8.5-10.1 bilirubin, serum, total 0.30 mg/dL 0.00-1.00 cholesterol, serum 195 mg/dL 586-257 6280/03/16 triglyceride, serum, fasting 138 mg/dL 30-200 HDL [...] dipstick Negative Negative sodium, serum 133 mmol/L 065-120 8768/06/03 carbon dioxide, venous blood 33.4 mmol/L 21.0-32.0 [...] semiquantitative 5.5 5.0-8.5 Lab Report: [facility] [place] human chorionic gonadotropin, urine, qualitative (urine test) Negative Negative Office Visit: Diabetes Visit - Chemistry cholesterol, target level 200 mg/dL triglyceride, target level 200 mg/dL HDL cholesterol, serum, target level 35 mg/dL LDL target level 100 mg/dL home glucose monitor utilized Yes Encounters Code Encounter Date Provider Facility CPT-62512 Level 3 Est. Patient 13:51:24 CDT Ang Markham MD [facility] CPT-91782 Level 3 Est. Patient 18:42:15 CDT Gabriel Hunt DO [facility] CPT-36842 Level 5 Est. Patient 14:40:14 CDT Celestine PEARCE [facility] CPT-24154 Level 4 Est. Patient 14:36:17 CDT Ang Markham MD [facility] CPT-23384 Level 3 Est. Patient 11:13:47 BRICK DROPPER Ang Markham MD [facility] CPT-72379 Level 3 Est. Patient 11:59:20 BRICK DROPPER Gloria Dunbar Formerly named [facility] CPT-15200 Level 3 Est. Patient 17:32:37 BRICK DROPPER Gloria Dunbar Formerly named [facility] CPT-26873 Level 4 Est. Patient 16:39:07 CDT Ang Markham MD [facility] CPT-21453 Level 3 Est. Patient 16:35:50 CDT Ang Markham MD [facility] CPT-41821 Level 4 Est. Patient 13:53:06 BRICK DROPPER Ang Markham MD [facility] CPT-11294 Level 3 Est. Patient 08:58:08 BRICK DROPPER Ang Markham MD [facility] CPT-99618 Level 3 Est. Patient 18:48:29 CDT Anthony Whitfield [facility] CPT-56857 Level 3 Est. Patient 12:16:59 CDT Gabriel Hunt DO [facility] CPT-75947 Level 3 Est. Patient 18:57:15 CDT Anthony Whitfield [facility] CPT-48639 Level 3 Est. Patient 13:59:22 BRICK DROPPER Ang Markham MD [facility] CPT-82505 Level 4 Est. Patient 10:36:08 BRICK DROPPER Ang Markham MD [facility] CPT-34263 Level 3 Est. Patient 16:27:02 CDT Eri Borges MD PhD [facility] CPT-86558 Level 3 Est. Patient 10:36:43 CDT Octaviano Dempsey [facility] CPT-77769 Level 4 New Patient 08:58:06 CDT Ang Markham MD [facility] Procedures Code Procedure Name Date Entry Date Standard Description CPT-02953 Abd compl w upright - XRAY USE ONLY 14:09:39 CDT 02/28 CPT-15649 Venipuncture Draw Fee 12:25:15 CDT CPT-23443 Knee 3V 16:48:40 CDT CPT-OV Office Visit 16:27:13 CDT CPT-OV Office Visit 16:21:19 CDT CPT-28864 Sono pelvis non OB uterus ovaries cervix 09:37:28 CDT
--- OUTSIDE RECORDS SUMMARY | 2018-12-22 01:47 | XMS REPORT | Clinical Summary ---
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], not stated as uncontrolled assisted use 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 V58.67 Resolved Ang [...] Resolved Ang Markham MD Acute swimmers' ear assisted use 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 V58.67 Active Celestine PEARCE Long-term (current) use of insulin Low back pain, acute 724.2 Active Shreya Velazquez CHILLING HOOD OPERATOR Lumbago Pharyngitis, acute / sore throat 462 [...] I, with hypoglycemia ICD-250.81 Nathan Markham MD assisted use 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 ICD-V58.67 Nathan Markham MD Abdominal pain ICD-789.00 Nathan Markham MD Hematochezia ICD-578.1 Nathan Markham MD Nausea ICD-787.02 Inactive Ang Markham MD 06/26 Otitis externa, acute, left ICD-380.12 Inactive Ang Markham MD Medication List Medication Instructions Start Date Stop Date Generic Name NDC Status Provider Patient Instruction COLACE 100 MG CAP 1 po daily DOCUSATE SODIUM 44448067093 No Longer Active Jillina Frazell CHILLING HOOD OPERATOR Active CARAFATE 1 GM/10ML ORAL SUSP 5 mg four times daily SUCRALFATE 29269779927 Active Jillina Frazell CHILLING HOOD OPERATOR Active ZANTAC 150 MG TAB 1 po BID RANITIDINE HCL 75885690326 No Longer Active Jillina Frazell CHILLING HOOD OPERATOR Active HYDROXYZINE HCL 25 MG TAB 1 TID PRN nerves HYDROXYZINE HCL 21826219750 No Longer Active Jillina Frazell CHILLING HOOD OPERATOR Active CLINDAMYCIN HCL 300 MG ORAL CAPS 1 four times a day CLINDAMYCIN HCL 74802159769 No Longer Active Jillina Frazell CHILLING HOOD OPERATOR Active TYLENOL WITH CODEINE #3 300-30 MG TABS 1 every four hours as needed for pain ACETAMINOPHEN-CODEINE 22702094810 Active Conner Hills MD Active LEVAQUIN 500 MG TABS 1 daily for infection LEVOFLOXACIN 22300564502 No Longer Active Conner Hills MD Active DOXEPIN HCL 10 MG CAP 1 tablet nightly for the itch DOXEPIN HCL 19937096241 No Longer Active Conner Hills MD Active TRESIBA FLEXTOUCH 200 UNIT/ML SC SOPN Take 70 units daily at mid-night to 1 am. INSULIN DEGLUDEC 32210733099 No Longer Active Conner Hills MD Active METFORMIN HCL 1000 MG TABS 1 tablet by mouth twice daily METFORMIN HCL 42186935804 No Longer Active Conner Hills MD Active LIPITOR 40 MG TAB 1 po qHS ATORVASTATIN CALCIUM 68880018750 No Longer Active Conner Hills MD Active GEMFIBROZIL 600 MG TABS 1 po BID GEMFIBROZIL 48768827862 No Longer Active Conner Hills MD Active CORTISPORIN 3.5-77714-7 SOLN 4gtts in affected ear QID x 7 days [id number] 87615191633 No Longer Active Ang Markham MD Active LEVEMIR FLEXTOUCH 100 UNIT/ML SC SOPN 35 units SC at 12-1pm, 35 units 12-1am INSULIN DETEMIR 74126482870 No Longer Active Celestine PEARCE Active REGLAN 10 MG TAB 0.5 po TID 30min prior to meals METOCLOPRAMIDE HCL 39858882885 Active Ang Markham MD Active NOVOLOG FLEXPEN 100 UNIT/ML SOPN Take 20 units TID with meals, plus 2u/50 for blood sugars above 150. Ratio vs. Carbs INSULIN ASPART 34666939228 Active Gabriel Hunt DO Active BD PEN NEEDLE DINESH U/F 32G X 4 MM MISC 5 a day INSULIN PEN NEEDLE 14183245379 Active Malstepheneh Ziglari ACOUSTIC ENGINEER Active EMBRACE BLOOD GLUCOSE TEST STRP Test blood sugars 4 times daily and PRN 08/05 GLUCOSE BLOOD 54623007697 No Longer Active Malstepheneh Rigoglari ACOUSTIC ENGINEER Active TRUEPLUS LANCETS 30G MISC 4 a day LANCETS 96098932669 Active Maliheh Ziglari ACOUSTIC ENGINEER Active TRUETEST TEST STRP check blood sugars 4x/day GLUCOSE BLOOD 88738456932 Active Maliheh Ziglari ACOUSTIC ENGINEER Active TRUERESULT BLOOD GLUCOSE W/DEVICE KIT check blood sugars 4x a day BLOOD GLUCOSE MONITORING SUPPL 87434355477 Active Malstepheneh Ziglari ACOUSTIC ENGINEER Active LISINOPRIL 5 MG TABS 1 po qd LISINOPRIL 18062900231 Active Ang Markham MD Active PAXIL 20 MG TAB 1 tablet by mouth daily PAROXETINE HCL 14210348463 Active Ang Markham MD Active GENTAMICIN SULFATE 0.1 % EXT OINT Apply to open sores once a day. GENTAMICIN SULFATE 14664641156 No Longer Active Ang Markham MD Active ZOLPIDEM TARTRATE 10 MG TABS 1 po qHS PRN Insomnia ZOLPIDEM TARTRATE 02175042929 Active Ang Markham MD Active BACTRIM DS 800-160 MG TAB 1 tab by mouth twice daily TRIMETHOPRIM-SULFAMETHOXAZOLE 49323106453 No Longer Active Gloria Yokum CHILLING HOOD OPERATOR Active LEVEMIR FLEXPEN 100 UNIT/ML SOLN 40 units SC at bedtime INSULIN DETEMIR No Longer Active Susan Adan RMA Active INSUPEN ULTRAFIN 31G X 6 MM MISC Use with insulin qid. DX: E11.9 INSULIN PEN NEEDLE 76189225465 Active Ang Markham MD Active ZOLOFT 100 MG TAB 1 po qHS SERTRALINE HCL 96438209817 No Longer Active Ang Markham MD Active MELOXICAM 15 MG TABS 1 po qd PRN Knee Pain MELOXICAM 60517621372 No Longer Active Ang Markham MD Active CYCLOBENZAPRINE HCL 5 MG TABS 1 po qHS PRN Muscle pain CYCLOBENZAPRINE HCL 24526830149 Active Ang Markham MD Active COLACE 100 MG CAP 1 po BID PRN Constipation DOCUSATE SODIUM 92269442215 No Longer Active Ang Markham MD Active IBUPROFEN 800 MG TABS 1 tab every 8 hours as needed for pain 2013 IBUPROFEN 09020466492 No Longer Active Ang Markham MD Active NITROFURANTOIN MACROCRYSTAL 100 MG CAPS 1 capsule PO bid x 7 days NITROFURANTOIN MACROCRYSTAL 77314667003 No Longer Active Ang Markham MD Active DIFLUCAN 150 MG TAB 1 qODay x 2 doses FLUCONAZOLE 57031113399 No Longer Active Da Romero APRN Active CEFTIN 500 MG TAB 1 tablet by mouth twice daily for 7 days 07/24 CEFUROXIME AXETIL 21903776383 No Longer Active Anthony CARBONE Active ZOLOFT 50 MG TAB 1 tablet by mouth daily SERTRALINE HCL 14194218513 No Longer Active Anthony CARBONE Active ANUSOL-HC 2.5 % CREAM apply as needed HYDROCORTISONE (RECTAL) 57513022386 No Longer Active Anthony CARBONE Active COLACE 100 MG CAP 1 tab PO BID DOCUSATE SODIUM 82896573904 No Longer Active Anthony CARBONE Active TRINESSA (28) 0.18/0.215/0.25 MG-35 MCG TABS 1 po qd as directed NORGESTIM-ETH ESTRAD TRIPHASIC 56813007904 No Longer Active Anthony CARBONE Active [facility] MELATONIN 5 MG TABS 1-2 po qHS PRN Insomnia MELATONIN 56129896934 No Longer Active Anthony CARBONE Active ACYCLOVIR 400 MG TABS ACYCLOVIR 31438201147 No Longer Active Ang Markham MD Active HYDROXYZINE HCL 25 MG TABS 1 tab PO tid PRN itching HYDROXYZINE HCL 82534740593 No Longer Active Ang Markham MD Active DIFLUCAN 150 MG TAB 1 qODay x 2 doses FLUCONAZOLE 45289724889 No Longer Active Da Romero APRN Active ACYCLOVIR 400 MG TABS 1 pill twice daily ACYCLOVIR 22350229115 No Longer Active Josephllpiedad Romero APRN Active AZITHROMYCIN 250 MG TABS 2 po qd x 1 day, then 1 po qd x 4 days AZITHROMYCIN 17593671917 No Longer Active Eri Borges MD PhD Active AZITHROMYCIN 250 MG TABS take 2 po day 1 then take1 po days 2-5 AZITHROMYCIN 16075795226 No Longer Active Octaviano CARBONE Active ACYCLOVIR 400 MG TABS 1 po qd ACYCLOVIR 57699594208 No Longer Active Ang Markham MD Active PROZAC 40 MG CAPS 1 cap by mouth at bedtime FLUOXETINE HCL 89390192276 No Longer Active Ang Markham MD Active HYDROXYZINE HCL 25 MG TABS 1 tab PO tid PRN itching HYDROXYZINE HCL 25 MG TABS 164139 HYDROXYZINE HCL Inactive [facility] MELATONIN 5 MG TABS 1-2 po qHS PRN Insomnia [facility] MELATONIN 5 MG TABS 256202 MELATONIN Inactive TRINESSA (28) 0.18/0.215/0.25 MG-35 MCG TABS 1 po qd as directed TRINESSA (28) 0.18/0.215/0.25 MG-35 MCG TABS 929598 NORGESTIM-ETH ESTRAD TRIPHASIC Inactive COLACE 100 MG CAP 1 tab PO BID COLACE 100 MG CAP 4392115 DOCUSATE SODIUM Inactive ANUSOL-HC 2.5 % CREAM apply as needed ANUSOL-HC 2.5 % CREAM 247153 HYDROCORTISONE (RECTAL) Inactive ZOLOFT 50 MG TAB 1 tablet by mouth daily ZOLOFT 50 MG TAB 667502 SERTRALINE HCL Inactive CEFTIN 500 MG TAB 1 tablet by mouth twice daily for 7 days 07/24 CEFTIN 500 MG TAB 792324 CEFUROXIME AXETIL Inactive NITROFURANTOIN MACROCRYSTAL 100 MG CAPS 1 capsule PO bid x 7 days NITROFURANTOIN MACROCRYSTAL 100 MG CAPS 7133896 NITROFURANTOIN MACROCRYSTAL Inactive IBUPROFEN 800 MG TABS 1 tab every 8 hours as needed for pain 2013 IBUPROFEN 800 MG TABS 773660 IBUPROFEN Inactive COLACE 100 MG CAP 1 po BID PRN Constipation COLACE 100 MG CAP 5166618 DOCUSATE SODIUM Inactive MELOXICAM 15 MG TABS 1 po qd PRN Knee Pain MELOXICAM 15 MG TABS 500180 MELOXICAM Inactive LEVEMIR FLEXPEN 100 UNIT/ML SOLN 40 units SC at bedtime LEVEMIR FLEXPEN 100 UNIT/ML SOLN INSULIN DETEMIR Inactive GENTAMICIN SULFATE 0.1 % EXT OINT Apply to open sores once a day. GENTAMICIN SULFATE 0.1 % EXT OINT 042462 GENTAMICIN SULFATE Inactive EMBRACE BLOOD GLUCOSE TEST STRP Test blood sugars 4 times daily and PRN 08/05 EMBRACE BLOOD GLUCOSE TEST STRP GLUCOSE BLOOD Inactive LEVEMIR FLEXTOUCH 100 UNIT/ML SC SOPN 35 units SC at 12-1pm, 35 units 12-1am LEVEMIR FLEXTOUCH 100 UNIT/ML SC SOPN INSULIN DETEMIR Inactive CORTISPORIN 3.5-77455-5 SOLN 4gtts in affected ear QID x 7 days CORTISPORIN 3.5-97557-0 SOLN 252729 TXNELBAL-KLZXZCNQW-AM Inactive GEMFIBROZIL 600 MG TABS 1 po BID GEMFIBROZIL 600 MG TABS 542384 GEMFIBROZIL Inactive LIPITOR 40 MG TAB 1 po qHS LIPITOR 40 MG TAB 057353 ATORVASTATIN CALCIUM Inactive METFORMIN HCL 1000 MG TABS 1 tablet by mouth twice daily METFORMIN HCL 1000 MG TABS 546134 METFORMIN HCL Inactive TRESIBA FLEXTOUCH 200 UNIT/ML SC SOPN Take 70 units daily at mid-night to 1 am. TRESIBA FLEXTOUCH 200 UNIT/ML SC SOPN INSULIN DEGLUDEC Inactive DOXEPIN HCL 10 MG CAP 1 tablet nightly for the itch DOXEPIN HCL 10 MG CAP 8593773 DOXEPIN HCL Inactive LEVAQUIN 500 MG TABS 1 daily for infection LEVAQUIN 500 MG TABS 392201 LEVOFLOXACIN Inactive CLINDAMYCIN HCL 300 MG ORAL CAPS 1 four times a day CLINDAMYCIN HCL 300 MG ORAL CAPS 922707 CLINDAMYCIN HCL Inactive HYDROXYZINE HCL 25 MG TAB 1 TID PRN nerves HYDROXYZINE HCL 25 MG TAB 825768 HYDROXYZINE HCL Inactive ZANTAC 150 MG TAB 1 po BID ZANTAC 150 MG TAB 541949 RANITIDINE HCL Inactive COLACE 100 MG CAP 1 po daily COLACE 100 MG CAP 0643839 DOCUSATE SODIUM Inactive ACYCLOVIR 400 MG TABS 1 po qd ACYCLOVIR 400 MG TABS 19720928 ACYCLOVIR Inactive AZITHROMYCIN 250 MG TABS take 2 po day 1 then take1 po days 2-5 AZITHROMYCIN 250 MG TABS 803104 AZITHROMYCIN Inactive AZITHROMYCIN 250 MG TABS 2 po qd x 1 day, then 1 po qd x 4 days AZITHROMYCIN 250 MG TABS 455358 AZITHROMYCIN Inactive ACYCLOVIR 400 MG TABS 1 pill twice daily ACYCLOVIR 400 MG TABS 19720928 ACYCLOVIR Inactive DIFLUCAN 150 MG TAB 1 qODay x 2 doses DIFLUCAN 150 MG TAB 19760606 FLUCONAZOLE Inactive ACYCLOVIR 400 MG TABS ACYCLOVIR 400 MG TABS 19720928 ACYCLOVIR Inactive DIFLUCAN 150 MG TAB 1 qODay x 2 doses DIFLUCAN 150 MG TAB 538747 FLUCONAZOLE Inactive BACTRIM DS 800-160 MG TAB 1 tab by mouth twice daily BACTRIM DS 800-160 MG TAB 875240 TRIMETHOPRIM-SULFAMETHOXAZOLE Inactive Advance Directives Directive Description Start [...] Panel - Chemistry sodium, serum 130 mmol/L 635-776 2626/10/12 carbon dioxide, venous blood 28.1 mmol/L 21.0-32.0 potassium, serum 3.9 mmol/L 3.5-5.2 chloride, serum 91 mmol/L 98-107 blood glucose 547 mg/dL 65-110 urea nitrogen, blood 3 mg/dL 7-18 creatinine, serum 0.78 mg/dL 0.55-1.30 alanine aminotransferase (SGPT), serum 11 U/L 12-78 aspartate aminotransferase (SGOT), serum 7 U/L 15-37 calcium, serum 8.8 mg/dL 8.5-10.1 bilirubin, serum, total 0.30 mg/dL 0.00-1.00 cholesterol, serum 221 mg/dL 854-064 9167/10/12 triglyceride, serum, fasting 590 mg/dL 30-200 HDL cholesterol, serum 45 mg/dL 32-96 LDL cholesterol, serum 58 mg/dL 0-130 Encounters Code Encounter Date Provider Facility CPT-42381 Level 3 Est. Patient 14:52:33 CDT Da Romero [facility] CPT-61890 Level 3 Est. Patient 10:22:30 CDT Conner Hills MD [facility] CPT-25168 Level 3 Est. Patient 15:02:19 CDT Shreya Velazquez [facility] CPT-31165 Level 3 Est. Patient 13:22:25 CDT Gabriel Hunt [facility] CPT-17806 Level 4 Est. Patient 16:02:22 CDT Ang Markham MD [facility] CPT-34294 Level 3 Est. Patient 16:21:23 CDT Celestine Huerta [facility] CPT-66690 Level 3 Est. Patient 17:02:56 CDT Gabriel Hunt [facility] CPT-62348 Level 3 Est. Patient 14:46:22 CDT Da Romero [facility] CPT-51720 Level 4 Est. Patient 13:55:20 CDT Ang Markham MD [facility] CPT-75428 Level 4 Est. Patient 16:10:09 CDT Celestine Huerta [facility] CPT-03436 Level 3 Est. Patient 13:51:24 CDT Ang Markham MD [facility] CPT-63440 Level 3 Est. Patient 18:42:15 CDT Gabriel Hunt [facility] CPT-34625 Level 5 Est. Patient 14:40:14 CDT Celestine Huerta RAMSES [facility] CPT-98824 Level 4 Est. Patient 14:36:17 CDT Ang Markham MD [facility] CPT-72960 Level 3 Est. Patient 11:13:47 METAL SHEET ROLLER OPERATOR Ang Markham MD [facility] CPT-47177 Level 3 Est. Patient 11:59:20 METAL SHEET ROLLER OPERATOR Gloria Dunbar [facility] CPT-73617 Level 3 Est. Patient 17:32:37 METAL SHEET ROLLER OPERATOR Gloria Dunbar [facility] CPT-36960 Level 4 Est. Patient 16:39:07 CDT Ang Markham MD [facility] CPT-93581 Level 3 Est. Patient 16:35:50 CDT Ang Markham MD [facility] CPT-17917 Level 4 Est. Patient 13:53:06 METAL SHEET ROLLER OPERATOR Ang Markham MD [facility] CPT-95020 Level 3 Est. Patient 08:58:08 METAL SHEET ROLLER OPERATOR Ang Markham MD [facility] CPT-20587 Level 3 Est. Patient 18:48:29 CDT Anthony Whitfield [facility] CPT-48569 Level 3 Est. Patient 12:16:59 CDT Gabriel Hunt DO [facility] CPT-31434 Level 3 Est. Patient 18:57:15 CDT Anthony Whitfield [facility] CPT-65625 Level 3 Est. Patient 13:59:22 METAL SHEET ROLLER OPERATOR Ang Markham MD [facility] CPT-67617 Level 4 Est. Patient 10:36:08 METAL SHEET ROLLER OPERATOR Ang Markham MD [facility] CPT-88679 Level 3 Est. Patient 16:27:02 CDT Eri Borges MD PhD [facility] CPT-80194 Level 3 Est. Patient 10:36:43 CDT Octaviano CARBONE [facility] CPT-79513 Level 4 New Patient 08:58:06 CDT Ang Markham MD [facility] Procedures Code Procedure Name Date Entry Date Standard Description CPT-91982 LS spine comp w obliques - XRAY USE ONLY 15:34:48 CDT CPT-29155 Lipid - LAB USE ONLY 15:28:39 CDT CPT-22450 CMP - LAB USE ONLY 15:28:39 CDT CPT-89205 Venipuncture Draw Fee 15:28:39 CDT CPT-94217 Abd compl w upright - XRAY USE ONLY 14:09:39 CDT 02/28 CPT-23079 Venipuncture Draw Fee 12:25:15 CDT CPT-32593 Knee 3V 16:48:40 CDT CPT-OV Office Visit 16:27:13 CDT CPT-OV Office Visit 16:21:19 CDT CPT-17564 Sono pelvis non OB uterus ovaries cervix 09:37:28 CDT
--- OUTSIDE RECORDS SUMMARY | 2018-12-22 01:48 | XMS REPORT | Clinical Summary ---
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 Ratio vs. Carbs INSULIN ASPART 96813065215 Active Gabriel Hunt DO Active BD PEN NEEDLE DINESH U/F 32G X 4 MM MISC 5 a day INSULIN PEN NEEDLE 95612241955 Active Maliheh Ziglari FREEZER MACHINE OPERATOR Active LEVEMIR FLEXTOUCH 100 UNIT/ML SC SOPN 30 units SC at 12-1pm, 30 units 12-1am INSULIN DETEMIR 71928669037 Active Maliheh Ziglari FREEZER MACHINE OPERATOR Active EMBRACE BLOOD GLUCOSE TEST STRP Test blood sugars 4 times daily and PRN 08/05 GLUCOSE BLOOD 59116439314 No Longer Active Maliheh Ziglari FREEZER MACHINE OPERATOR Active TRUEPLUS LANCETS 30G MISC 4 a day LANCETS 66509823884 Active Maliheh Ziglari FREEZER MACHINE OPERATOR Active TRUETEST TEST STRP check blood sugars 4x/day GLUCOSE BLOOD 08379576905 Active Maliheh Ziglari FREEZER MACHINE OPERATOR Active TRUERESULT BLOOD GLUCOSE W/DEVICE KIT check blood sugars 4x a day BLOOD GLUCOSE MONITORING SUPPL 58806190578 Active Maliheh Ziglari FREEZER MACHINE OPERATOR Active LISINOPRIL 5 MG TABS 1 po qd LISINOPRIL 72599451372 Active Ang Markham MD Active PAXIL 20 MG TAB 1 tablet by mouth daily PAROXETINE HCL 38630370435 Active Ang Markham MD Active GENTAMICIN SULFATE 0.1 % EXT OINT Apply to open sores once a day. GENTAMICIN SULFATE 05632360412 No Longer Active Ang Markham MD Active ZOLPIDEM TARTRATE 10 MG TABS 1 po qHS PRN Insomnia ZOLPIDEM TARTRATE 42669875599 Active Ang Markham MD Active BACTRIM DS 800-160 MG TAB 1 tab by mouth twice daily TRIMETHOPRIM-SULFAMETHOXAZOLE 39039710668 No Longer Active Gloria Dunbar DIRECTOR OF BUSINESS CONTINUITY Active LEVEMIR FLEXPEN 100 UNIT/ML SOLN 40 units SC at bedtime INSULIN DETEMIR No Longer Active Susan Arellano RMA Active INSUPEN ULTRAFIN 31G X 6 MM MISC Use with insulin qid. DX: E11.9 INSULIN PEN NEEDLE 22047493308 Active Ang Markham MD Active ZOLOFT 100 MG TAB 1 po qHS SERTRALINE HCL 98043666536 No Longer Active Ang Markham MD Active MELOXICAM 15 MG TABS 1 po qd PRN Knee Pain MELOXICAM 71796764914 No Longer Active Ang Markham MD Active LIPITOR 40 MG TAB 1 po qHS ATORVASTATIN CALCIUM 01204719525 Active Ang Markham MD Active METFORMIN HCL 1000 MG TABS 1 tablet by mouth twice daily METFORMIN HCL 97859053673 Active Ang Markham MD Active CYCLOBENZAPRINE HCL 5 MG TABS 1 po qHS PRN Muscle pain CYCLOBENZAPRINE HCL 21692244001 Active Ang Markham MD Active COLACE 100 MG CAP 1 po BID PRN Constipation DOCUSATE SODIUM 38719783015 No Longer Active Ang Markham MD Active HYDROXYZINE HCL 25 MG TAB 1 TID PRN nerves HYDROXYZINE HCL 37534015386 Active Ang Markham MD Active IBUPROFEN 800 MG TABS 1 tab every 8 hours as needed for pain 2013 IBUPROFEN 56035147959 No Longer Active Ang Markham MD Active NITROFURANTOIN MACROCRYSTAL 100 MG CAPS 1 capsule PO bid x 7 days NITROFURANTOIN MACROCRYSTAL 52529775025 No Longer Active Ang Markham MD Active DIFLUCAN 150 MG TAB 1 qODay x 2 doses FLUCONAZOLE 43120320014 No Longer Active Da Romero DIRECTOR OF BUSINESS CONTINUITY Active CEFTIN 500 MG TAB 1 tablet by mouth twice daily for 7 days 07/24 CEFUROXIME AXETIL 72420353116 No Longer Active Anthony CARBONE Active ZOLOFT 50 MG TAB 1 tablet by mouth daily SERTRALINE HCL 81341054136 No Longer Active Anthony CARBONE Active ANUSOL-HC 2.5 % CREAM apply as needed HYDROCORTISONE (RECTAL) 93232691634 No Longer Active Anthony CARBONE Active COLACE 100 MG CAP 1 tab PO BID DOCUSATE SODIUM 38383668266 No Longer Active Anthony CARBONE Active TRINESSA (28) 0.18/0.215/0.25 MG-35 MCG TABS 1 po qd as directed NORGESTIM-ETH ESTRAD TRIPHASIC 09917900363 No Longer Active Anthony CARBONE Active [facility] MELATONIN 5 MG TABS 1-2 po qHS PRN Insomnia MELATONIN 94971208903 No Longer Active Anthony CARBONE Active ACYCLOVIR 400 MG TABS ACYCLOVIR 23583003930 No Longer Active Ang Markham MD Active HYDROXYZINE HCL 25 MG TABS 1 tab PO tid PRN itching HYDROXYZINE HCL 24348611631 No Longer Active Ang Markham MD Active DIFLUCAN 150 MG TAB 1 qODay x 2 doses FLUCONAZOLE 89087590180 No Longer Active Da Romero APRN Active ACYCLOVIR 400 MG TABS 1 pill twice daily ACYCLOVIR 38738716442 No Longer Active Da Romero APRN Active AZITHROMYCIN 250 MG TABS 2 po qd x 1 day, then 1 po qd x 4 days AZITHROMYCIN 13630994718 No Longer Active Eri Borges MD PhD Active AZITHROMYCIN 250 MG TABS take 2 po day 1 then take1 po days 2-5 AZITHROMYCIN 59742574176 No Longer Active Octaviano CARBONE Active ACYCLOVIR 400 MG TABS 1 po qd ACYCLOVIR 31847462828 No Longer Active Ang Markham MD Active PROZAC 40 MG CAPS 1 cap by mouth at bedtime FLUOXETINE HCL 77191208782 No Longer Active Ang Markham MD Active HYDROXYZINE HCL 25 MG TABS 1 tab PO tid PRN itching HYDROXYZINE HCL 25 MG TABS 535500 HYDROXYZINE HCL Inactive [facility] MELATONIN 5 MG TABS 1-2 po qHS PRN Insomnia [facility] MELATONIN 5 MG TABS 660327 MELATONIN Inactive TRINESSA (28) 0.18/0.215/0.25 MG-35 MCG TABS 1 po qd as directed TRINESSA (28) 0.18/0.215/0.25 MG-35 MCG TABS 156153 NORGESTIM-ETH ESTRAD TRIPHASIC Inactive COLACE 100 MG CAP 1 tab PO BID COLACE 100 MG CAP 3558164 DOCUSATE SODIUM Inactive ANUSOL-HC 2.5 % CREAM apply as needed ANUSOL-HC 2.5 % CREAM 221341 HYDROCORTISONE (RECTAL) Inactive ZOLOFT 50 MG TAB 1 tablet by mouth daily ZOLOFT 50 MG TAB 158341 SERTRALINE HCL Inactive CEFTIN 500 MG TAB 1 tablet by mouth twice daily for 7 days 07/24 CEFTIN 500 MG TAB 371528 CEFUROXIME AXETIL Inactive NITROFURANTOIN MACROCRYSTAL 100 MG CAPS 1 capsule PO bid x 7 days NITROFURANTOIN MACROCRYSTAL 100 MG CAPS 1359052 NITROFURANTOIN MACROCRYSTAL Inactive IBUPROFEN 800 MG TABS 1 tab every 8 hours as needed for pain 2013 IBUPROFEN 800 MG TABS 410250 IBUPROFEN Inactive COLACE 100 MG CAP 1 po BID PRN Constipation COLACE 100 MG CAP 7855192 DOCUSATE SODIUM Inactive MELOXICAM 15 MG TABS 1 po qd PRN Knee Pain MELOXICAM 15 MG TABS 352909 MELOXICAM Inactive LEVEMIR FLEXPEN 100 UNIT/ML SOLN 40 units SC at bedtime LEVEMIR FLEXPEN 100 UNIT/ML SOLN INSULIN DETEMIR Inactive GENTAMICIN SULFATE 0.1 % EXT OINT Apply to open sores once a day. GENTAMICIN SULFATE 0.1 % EXT OINT 131653 GENTAMICIN SULFATE Inactive EMBRACE BLOOD GLUCOSE TEST STRP Test blood sugars 4 times daily and PRN 08/05 EMBRACE BLOOD GLUCOSE TEST STRP GLUCOSE BLOOD Inactive ACYCLOVIR 400 MG TABS 1 po qd ACYCLOVIR 400 MG TABS 19720928 ACYCLOVIR Inactive AZITHROMYCIN 250 MG TABS take 2 po day 1 then take1 po days 2-5 AZITHROMYCIN 250 MG TABS 4810192 AZITHROMYCIN Inactive AZITHROMYCIN 250 MG TABS 2 po qd x 1 day, then 1 po qd x 4 days AZITHROMYCIN 250 MG TABS 7017288 AZITHROMYCIN Inactive ACYCLOVIR 400 MG TABS 1 pill twice daily ACYCLOVIR 400 MG TABS 19720928 ACYCLOVIR Inactive DIFLUCAN 150 MG TAB 1 qODay x 2 doses DIFLUCAN 150 MG TAB 376880 FLUCONAZOLE Inactive ACYCLOVIR 400 MG TABS ACYCLOVIR 400 MG TABS 19720928 ACYCLOVIR Inactive DIFLUCAN 150 MG TAB 1 qODay x 2 doses DIFLUCAN 150 MG TAB 140186 FLUCONAZOLE Inactive BACTRIM DS 800-160 MG TAB 1 tab by mouth twice daily BACTRIM DS 800-160 MG TAB 219601 TRIMETHOPRIM-SULFAMETHOXAZOLE Inactive Advance Directives Directive Description Start [...] HGBA1C - Chemistry sodium, serum 134 mmol/L 035-455 3269/03/16 carbon dioxide, venous blood 34.5 mmol/L 21.0-32.0 potassium, serum 4.6 mmol/L 3.5-5.2 chloride, serum 93 mmol/L 98-107 blood glucose 408 mg/dL 65-110 urea nitrogen, blood 3 mg/dL 7-18 creatinine, serum 0.58 mg/dL 0.55-1.30 alanine aminotransferase (SGPT), serum 11 U/L 12-78 aspartate aminotransferase (SGOT), serum 8 U/L 15-37 calcium, serum 9.2 mg/dL 8.5-10.1 bilirubin, serum, total 0.30 mg/dL 0.00-1.00 cholesterol, serum 195 mg/dL 295-332 9108/03/16 triglyceride, serum, fasting 138 mg/dL 30-200 HDL [...] dipstick Negative Negative sodium, serum 133 mmol/L 961-225 8383/06/03 carbon dioxide, venous blood 33.4 mmol/L 21.0-32.0 [...] pH, urine, semiquantitative 5.5 5.0-8.5 Lab Report: [facility] [place] - Chemistry human chorionic gonadotropin, urine, qualitative (urine test) Negative Negative Office Visit: Diabetes Visit - Chemistry cholesterol, target level 200 mg/dL triglyceride, target level 200 mg/dL HDL cholesterol, serum, target level 35 mg/dL LDL target level 100 mg/dL home glucose monitor utilized Yes Encounters Code Encounter Date Provider Facility CPT-77833 Level 3 Est. Patient 13:51:24 CDT Ang Markham MD [facility] CPT-21837 Level 3 Est. Patient 18:42:15 CDT Gabriel Hunt DO [facility] CPT-45078 Level 5 Est. Patient 14:40:14 CDT Celestine PEARCE [facility] CPT-71124 Level 4 Est. Patient 14:36:17 CDT Ang Markham MD [facility] CPT-39653 Level 3 Est. Patient 11:13:47 ECONOMIC ANALYST Ang Markham MD [facility] CPT-82687 Level 3 Est. Patient 11:59:20 ECONOMIC ANALYST Gloria Dunbar [facility] CPT-77460 Level 3 Est. Patient 17:32:37 ECONOMIC ANALYST Gloria Dunbar [facility] CPT-96028 Level 4 Est. Patient 16:39:07 CDT Ang Markham MD [facility] CPT-43217 Level 3 Est. Patient 16:35:50 CDT Ang Markham MD [facility] CPT-48758 Level 4 Est. Patient 13:53:06 ECONOMIC ANALYST Ang Markham MD [facility] CPT-09242 Level 3 Est. Patient 08:58:08 ECONOMIC ANALYST Ang Markham MD [facility] CPT-30277 Level 3 Est. Patient 18:48:29 CDT Anthony Whitfield [facility] CPT-78039 Level 3 Est. Patient 12:16:59 CDT Gabriel Hunt DO [facility] CPT-16210 Level 3 Est. Patient 18:57:15 CDT Anthony Whitfield [facility] CPT-82306 Level 3 Est. Patient 13:59:22 ECONOMIC ANALYST Ang Markham MD [facility] CPT-48293 Level 4 Est. Patient 10:36:08 ECONOMIC ANALYST Ang Markham MD [facility] CPT-68293 Level 3 Est. Patient 16:27:02 CDT Eri Borges MD PhD [facility] CPT-13190 Level 3 Est. Patient 10:36:43 CDT Octaviano Dempsey [facility] CPT-84170 Level 4 New Patient 08:58:06 CDT Ang Markham MD [facility] Procedures Code Procedure Name Date Entry Date Standard Description CPT-10427 Abd compl w upright - XRAY USE ONLY 14:09:39 CDT 02/28 CPT-56385 Venipuncture Draw Fee 12:25:15 CDT CPT-72359 Knee 3V 16:48:40 CDT CPT-OV Office Visit 16:27:13 CDT CPT-OV Office Visit 16:21:19 CDT CPT-78816 Sono pelvis non OB uterus ovaries cervix 09:37:28 CDT
--- OUTSIDE RECORDS SUMMARY | 2018-12-22 01:49 | XMS REPORT | Clinical Summary ---
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], not stated as uncontrolled [facility] use 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 V58.67 Resolved Ang [...] Resolved Ang Markham MD Acute swimmers' ear [facility] use 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 V58.67 Active Celestine PEARCE Long-term (current) use of insulin Low back pain, acute 724.2 Active Shreya Velazquez PHOTOVOLTAIC POWER SYSTEMS ENGINEER Lumbago Pharyngitis, acute / sore throat 462 Active Shreya Velazquez APRN Acute pharyngitis Cellulitis 682.9 Active Conner Hills MD Cellulitis and abscess of unspecified sites Diarrhea, chronic 787.91 Active Da Romero PHOTOV[employer]IC [employer]OWER SYSTEMS ENGINEER Diarrhea Diabetes mellitus ICD-250.00 Inactive Ang Markham [...] Knee pain, bilateral ICD-719.46 Nathan Markham MD SINUSITIS, ACUTE ICD-461.9 Inactive Ang Markham MD CANDIDAL VAGINITIS ICD-112.1 Nathan Markham MD Insomnia ICD-780.52 Nathan Markham MD Diabetes mellitus ICD-250.00 Nathan Markham MD Vaginal discharge ICD-623.5 Nathan Markham MD Amenorrhea ICD-626.0 Nathan Markham MD Cystitis, acute ICD-595.0 Nathan Markham MD Diabetes mellitus, type I, with hypoglycemia ICD-250.81 Nathan Markham MD [facility] use 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 ICD-V58.67 Nathan Markham MD UTI ICD-599.0 Nathan Markham MD Cellulitis, ankle, left ICD-682.6 Nathan Markham MD Nausea ICD-787.02 Nathan Markham MD 06/26 Otitis externa, acute, left ICD-380.12 Nathan Markham MD Abdominal pain ICD-789.00 Inactive Ang Markham MD Hematochezia ICD-578.1 Inactive Ang Markham MD Medication List Medication Instructions Start Date Stop Date Generic Name NDC Status Provider Patient Instruction COLACE 100 MG CAP 1 po daily DOCUSATE SODIUM 58244332070 No Longer Active Jillina Frazell PHOTOVOL[employer]IC POWER SYSTEMS ENGINEER Active CARAFATE 1 GM/10ML ORAL SUSP 5 mg four times daily SUCRALFATE 26973774151 Active Jillina Frazell PHOTOVOLTAIC POWER SYSTEMS ENGINEER Active ZANTAC 150 MG TAB 1 po BID RANITIDINE HCL 08277989177 No Longer Active Jillina Frazell PHOTOVOL[employer]IC POWER SYSTEMS ENGINEER Active HYDROXYZINE HCL 25 MG TAB 1 TID PRN nerves HYDROXYZINE HCL 90351165112 No Longer Active Jillina Frazell PHOTOVOLTAIC POWER SYSTEMS ENGINEER Active CLINDAMYCIN HCL 300 MG ORAL CAPS 1 four times a day CLINDAMYCIN HCL 28616371020 No Longer Active Jillina Frazell PHOTOVOL[employer]IC POWER SYSTEMS ENGINEER Active TYLENOL WITH CODEINE #3 300-30 MG TABS 1 every four hours as needed for pain ACETAMINOPHEN-CODEINE 71285432708 Active Conner Hills MD Active LEVAQUIN 500 MG TABS 1 daily for infection LEVOFLOXACIN 87322802836 No Longer Active Conner Hills MD Active DOXEPIN HCL 10 MG CAP 1 tablet nightly for the itch DOXEPIN HCL 90916124855 No Longer Active Conner Hills MD Active TRESIBA FLEXTOUCH 200 UNIT/ML SC SOPN Take 70 units daily at mid-night to 1 am. INSULIN DEGLUDEC 81134845566 No Longer Active Conner Hills MD Active METFORMIN HCL 1000 MG TABS 1 tablet by mouth twice daily METFORMIN HCL 17328043511 No Longer Active Conner Hills MD Active LIPITOR 40 MG TAB 1 po qHS ATORVASTATIN CALCIUM 12460372754 No Longer Active Conner Hills MD Active GEMFIBROZIL 600 MG TABS 1 po BID GEMFIBROZIL 81234003918 No Longer Active Conner Hills MD Active CORTISPORIN 3.5-69604-8 SOLN 4gtts in affected ear QID x 7 days [id number] 83993565972 No Longer Active Ang Markham MD Active LEVEMIR FLEXTOUCH 100 UNIT/ML SC SOPN 35 units SC at 12-1pm, 35 units 12-1am INSULIN DETEMIR 26604808821 No Longer Active Celestine PEARCE Active REGLAN 10 MG TAB 0.5 po TID 30min prior to meals METOCLOPRAMIDE HCL 36892334677 Active Ang Markham MD Active NOVOLOG FLEXPEN 100 UNIT/ML SOPN Take 20 units TID with meals, plus 2u/50 for blood sugars above 150. Ratio vs. Carbs INSULIN ASPART 01280258176 Active Gabriel Hunt DO Active BD PEN NEEDLE DINESH U/F 32G X 4 MM MISC 5 a day INSULIN PEN NEEDLE 13208618509 Active Malstepheneh Ziglari [employer] MANAGER Active EMBRACE BLOOD GLUCOSE TEST STRP Test blood sugars 4 times daily and PRN 08/05 GLUCOSE BLOOD 79272574390 No Longer Active Malstepheneh Rigoglari [employer]RO[employer] MANAGER Active TRUEPLUS LANCETS 30G MISC 4 a day LANCETS 31714580087 Active Maliheh Ziglari [employer]RO[employer] EM[employer] SERVICES MANAGER Active TRUETEST TEST STRP check blood sugars 4x/day GLUCOSE BLOOD 83091852486 Active Maliheh Ziglari [employer]RO[employer] EM[employer] SERVICES MANAGER Active TRUERESULT BLOOD GLUCOSE W/DEVICE KIT check blood sugars 4x a day BLOOD GLUCOSE MONITORING SUPPL 90042850114 Active Malstepheneh Ziglari [employer]ILRO[employer] EMERG[employer] SERVICES MANAGER Active LISINOPRIL 5 MG TABS 1 po qd LISINOPRIL 24815905617 Active Ang Markham MD Active PAXIL 20 MG TAB 1 tablet by mouth daily PAROXETINE HCL 90962218459 Active Ang Markham MD Active GENTAMICIN SULFATE 0.1 % EXT OINT Apply to open sores once a day. GENTAMICIN SULFATE 80204844477 No Longer Active Ang Markham MD Active ZOLPIDEM TARTRATE 10 MG TABS 1 po qHS PRN Insomnia ZOLPIDEM TARTRATE 85455990107 Active Ang Markham MD Active BACTRIM DS 800-160 MG TAB 1 tab by mouth twice daily TRIMETHOPRIM-SULFAMETHOXAZOLE 43968922149 No Longer Active Gloria Yokum PHOTOVOLTAIC POWER SYSTEMS ENGINEER Active LEVEMIR FLEXPEN 100 UNIT/ML SOLN 40 units SC at bedtime INSULIN DETEMIR No Longer Active Susan Adan RMA Active INSUPEN ULTRAFIN 31G X 6 MM MISC Use with insulin qid. DX: E11.9 INSULIN PEN NEEDLE 22171482851 Active Agn Markham MD Active ZOLOFT 100 MG TAB 1 po qHS SERTRALINE HCL 76710783208 No Longer Active Ang Markham MD Active MELOXICAM 15 MG TABS 1 po qd PRN Knee Pain MELOXICAM 67604004955 No Longer Active Ang Markham MD Active CYCLOBENZAPRINE HCL 5 MG TABS 1 po qHS PRN Muscle pain CYCLOBENZAPRINE HCL 64799880981 Active Ang Markham MD Active COLACE 100 MG CAP 1 po BID PRN Constipation DOCUSATE SODIUM 94881781491 No Longer Active Ang Markham MD Active IBUPROFEN 800 MG TABS 1 tab every 8 hours as needed for pain 2013 IBUPROFEN 55311748620 No Longer Active Ang Markham MD Active NITROFURANTOIN MACROCRYSTAL 100 MG CAPS 1 capsule PO bid x 7 days NITROFURANTOIN MACROCRYSTAL 64632156335 No Longer Active Ang Markham MD Active DIFLUCAN 150 MG TAB 1 qODay x 2 doses FLUCONAZOLE 04678511833 No Longer Active Da Romero APRN Active CEFTIN 500 MG TAB 1 tablet by mouth twice daily for 7 days 07/24 CEFUROXIME AXETIL 59057753644 No Longer Active Anthony CARBONE Active ZOLOFT 50 MG TAB 1 tablet by mouth daily SERTRALINE HCL 48687200185 No Longer Active Anthony CARBONE Active ANUSOL-HC 2.5 % CREAM apply as needed HYDROCORTISONE (RECTAL) 44708915157 No Longer Active Anthony CARBONE Active COLACE 100 MG CAP 1 tab PO BID DOCUSATE SODIUM 06031841098 No Longer Active Anthony CARBONE Active TRINESSA (28) 0.18/0.215/0.25 MG-35 MCG TABS 1 po qd as directed NORGESTIM-ETH ESTRAD TRIPHASIC 53966116771 No Longer Active Anthony CARBONE Active [facility] MELATONIN 5 MG TABS 1-2 po qHS PRN Insomnia MELATONIN 42558375386 No Longer Active Anthony CARBONE Active ACYCLOVIR 400 MG TABS ACYCLOVIR 25814424658 No Longer Active Ang Markham MD Active HYDROXYZINE HCL 25 MG TABS 1 tab PO tid PRN itching HYDROXYZINE HCL 16509914784 No Longer Active Ang Markham MD Active DIFLUCAN 150 MG TAB 1 qODay x 2 doses FLUCONAZOLE 42108977100 No Longer Active Da Romero APRN Active ACYCLOVIR 400 MG TABS 1 pill twice daily ACYCLOVIR 74057100446 No Longer Active Josephllpiedad Romero APRN Active AZITHROMYCIN 250 MG TABS 2 po qd x 1 day, then 1 po qd x 4 days AZITHROMYCIN 87391118870 No Longer Active Eri Borges MD PhD Active AZITHROMYCIN 250 MG TABS take 2 po day 1 then take1 po days 2-5 AZITHROMYCIN 33435955052 No Longer Active Octaviano CARBONE Active ACYCLOVIR 400 MG TABS 1 po qd ACYCLOVIR 50293147995 No Longer Active Ang Markham MD Active PROZAC 40 MG CAPS 1 cap by mouth at bedtime FLUOXETINE HCL 29689799114 No Longer Active Ang Markham MD Active HYDROXYZINE HCL 25 MG TABS 1 tab PO tid PRN itching HYDROXYZINE HCL 25 MG TABS 115209 HYDROXYZINE HCL Inactive [facility] MELATONIN 5 MG TABS 1-2 po qHS PRN Insomnia [facility] MELATONIN 5 MG TABS 792777 MELATONIN Inactive TRINESSA (28) 0.18/0.215/0.25 MG-35 MCG TABS 1 po qd as directed TRINESSA (28) 0.18/0.215/0.25 MG-35 MCG TABS 964191 NORGESTIM-ETH ESTRAD TRIPHASIC Inactive COLACE 100 MG CAP 1 tab PO BID COLACE 100 MG CAP 5061796 DOCUSATE SODIUM Inactive ANUSOL-HC 2.5 % CREAM apply as needed ANUSOL-HC 2.5 % CREAM 411662 HYDROCORTISONE (RECTAL) Inactive ZOLOFT 50 MG TAB 1 tablet by mouth daily ZOLOFT 50 MG TAB 378666 SERTRALINE HCL Inactive CEFTIN 500 MG TAB 1 tablet by mouth twice daily for 7 days 07/24 CEFTIN 500 MG TAB 096730 CEFUROXIME AXETIL Inactive NITROFURANTOIN MACROCRYSTAL 100 MG CAPS 1 capsule PO bid x 7 days NITROFURANTOIN MACROCRYSTAL 100 MG CAPS 8756748 NITROFURANTOIN MACROCRYSTAL Inactive IBUPROFEN 800 MG TABS 1 tab every 8 hours as needed for pain 2013 IBUPROFEN 800 MG TABS 026828 IBUPROFEN Inactive COLACE 100 MG CAP 1 po BID PRN Constipation COLACE 100 MG CAP 2880629 DOCUSATE SODIUM Inactive MELOXICAM 15 MG TABS 1 po qd PRN Knee Pain MELOXICAM 15 MG TABS 024095 MELOXICAM Inactive LEVEMIR FLEXPEN 100 UNIT/ML SOLN 40 units SC at bedtime LEVEMIR FLEXPEN 100 UNIT/ML SOLN INSULIN DETEMIR Inactive GENTAMICIN SULFATE 0.1 % EXT OINT Apply to open sores once a day. GENTAMICIN SULFATE 0.1 % EXT OINT 707555 GENTAMICIN SULFATE Inactive EMBRACE BLOOD GLUCOSE TEST STRP Test blood sugars 4 times daily and PRN 08/05 EMBRACE BLOOD GLUCOSE TEST STRP GLUCOSE BLOOD Inactive LEVEMIR FLEXTOUCH 100 UNIT/ML SC SOPN 35 units SC at 12-1pm, 35 units 12-1am LEVEMIR FLEXTOUCH 100 UNIT/ML SC SOPN INSULIN DETEMIR Inactive CORTISPORIN 3.5-99396-8 SOLN 4gtts in affected ear QID x 7 days CORTISPORIN 3.5-90229-4 SOLN 302885 [id number] Inactive GEMFIBROZIL 600 MG TABS 1 po BID GEMFIBROZIL 600 MG TABS 364627 GEMFIBROZIL Inactive LIPITOR 40 MG TAB 1 po qHS LIPITOR 40 MG TAB 733542 ATORVASTATIN CALCIUM Inactive METFORMIN HCL 1000 MG TABS 1 tablet by mouth twice daily METFORMIN HCL 1000 MG TABS 530172 METFORMIN HCL Inactive TRESIBA FLEXTOUCH 200 UNIT/ML SC SOPN Take 70 units daily at mid-night to 1 am. TRESIBA FLEXTOUCH 200 UNIT/ML SC SOPN INSULIN DEGLUDEC Inactive DOXEPIN HCL 10 MG CAP 1 tablet nightly for the itch DOXEPIN HCL 10 MG CAP 3847511 DOXEPIN HCL Inactive LEVAQUIN 500 MG TABS 1 daily for infection LEVAQUIN 500 MG TABS 381631 LEVOFLOXACIN Inactive CLINDAMYCIN HCL 300 MG ORAL CAPS 1 four times a day CLINDAMYCIN HCL 300 MG ORAL CAPS 943657 CLINDAMYCIN HCL Inactive HYDROXYZINE HCL 25 MG TAB 1 TID PRN nerves HYDROXYZINE HCL 25 MG TAB 808636 HYDROXYZINE HCL Inactive ZANTAC 150 MG TAB 1 po BID ZANTAC 150 MG TAB 849035 RANITIDINE HCL Inactive COLACE 100 MG CAP 1 po daily COLACE 100 MG CAP 5916812 DOCUSATE SODIUM Inactive ACYCLOVIR 400 MG TABS 1 po qd ACYCLOVIR 400 MG TABS 19720928 ACYCLOVIR Inactive AZITHROMYCIN 250 MG TABS take 2 po day 1 then take1 po days 2-5 AZITHROMYCIN 250 MG TABS 4201608 AZITHROMYCIN Inactive AZITHROMYCIN 250 MG TABS 2 po qd x 1 day, then 1 po qd x 4 days AZITHROMYCIN 250 MG TABS 9476347 AZITHROMYCIN Inactive ACYCLOVIR 400 MG TABS 1 pill twice daily ACYCLOVIR 400 MG TABS 19720928 ACYCLOVIR Inactive DIFLUCAN 150 MG TAB 1 qODay x 2 doses DIFLUCAN 150 MG TAB 19760606 FLUCONAZOLE Inactive ACYCLOVIR 400 MG TABS ACYCLOVIR 400 MG TABS 19720928 ACYCLOVIR Inactive DIFLUCAN 150 MG TAB 1 qODay x 2 doses DIFLUCAN 150 MG TAB 033201 FLUCONAZOLE Inactive BACTRIM DS 800-160 MG TAB [...] 0.30 mg/dL 0.00-1.00 cholesterol, serum 221 mg/dL 539-628 2789/10/12 triglyceride, serum, fasting 590 mg/dL 30-200 HDL cholesterol, serum 45 mg/dL 32-96 LDL cholesterol, serum 58 mg/dL 0-130 blood glucose 547 mg/dL 65-110 chloride, serum 91 mmol/L 98-107 potassium, serum 3.9 mmol/L 3.5-5.2 carbon dioxide, venous blood 28.1 mmol/L 21.0-32.0 sodium, serum 130 mmol/L 136-145 Encounters Code Encounter Date Provider Facility CPT-70136 Level 3 Est. Patient 14:52:33 CDT Da Romero [facility] CPT-60642 Level 3 Est. Patient 10:22:30 CDT Conner Hills MD [facility] CPT-79921 Level 3 Est. Patient 15:02:19 CDT Shreya Velazquez [facility] CPT-26657 Level 3 Est. Patient 13:22:25 CDT Gabriel Hunt [facility] CPT-30371 Level 4 Est. Patient 16:02:22 CDT Ang Markham MD [facility] CPT-64687 Level 3 Est. Patient 16:21:23 CDT Celestine Huerta [facility] CPT-82940 Level 3 Est. Patient 17:02:56 CDT Gabriel Hunt [facility] CPT-26416 Level 3 Est. Patient 14:46:22 CDT Da Romero [facility] CPT-13001 Level 4 Est. Patient 13:55:20 CDT Ang Markham MD [facility] CPT-49675 Level 4 Est. Patient 16:10:09 CDT Celestine Huerta [facility] CPT-32828 Level 3 Est. Patient 13:51:24 CDT Ang Markham MD [facility] CPT-45952 Level 3 Est. Patient 18:42:15 CDT Gabriel Hunt [facility] CPT-55885 Level 5 Est. Patient 14:40:14 CDT Celestine Huerta RAMSES [facility] CPT-85080 Level 4 Est. Patient 14:36:17 CDT Ang Markham MD [facility] CPT-35929 Level 3 Est. Patient 11:13:47 CANDY VENDOR Ang Markham MD [facility] CPT-09139 Level 3 Est. Patient 11:59:20 CANDY VENDOR Gloria Dunbar [facility] CPT-55573 Level 3 Est. Patient 17:32:37 CANDY VENDOR Gloria Dunbar [facility] CPT-33974 Level 4 Est. Patient 16:39:07 CDT Ang Markham MD [facility] CPT-02299 Level 3 Est. Patient 16:35:50 CDT Ang Markham MD [facility] CPT-68797 Level 4 Est. Patient 13:53:06 CANDY VENDOR Ang Markham MD [facility] CPT-94570 Level 3 Est. Patient 08:58:08 CANDY VENDOR Ang Markham MD [facility] CPT-46614 Level 3 Est. Patient 18:48:29 CDT Anthony [facility] CPT-30305 Level 3 Est. Patient 12:16:59 CDT Gabriel Hunt DO [facility] CPT-69967 Level 3 Est. Patient 18:57:15 CDT Anthony [facility] CPT-16427 Level 3 Est. Patient 13:59:22 CANDY VENDOR Ang Markham MD [facility] CPT-40465 Level 4 Est. Patient 10:36:08 CANDY VENDOR Ang Markham MD [facility] CPT-71236 Level 3 Est. Patient 16:27:02 CDT Eri Borges MD PhD [facility] CPT-38484 Level 3 Est. Patient 10:36:43 CDT Octaviano CARBONE [facility] CPT-87710 Level 4 New Patient 08:58:06 CDT Ang Markham MD [facility] Procedures Code Procedure Name Date Entry Date Standard Description CPT-38297 LS spine comp w obliques - XRAY USE ONLY 15:34:48 CDT CPT-69396 Lipid - LAB USE ONLY 15:28:39 CDT CPT-70063 CMP - LAB USE ONLY 15:28:39 CDT CPT-96500 Venipuncture Draw Fee 15:28:39 CDT CPT-68740 Abd compl w upright - XRAY USE ONLY 14:09:39 CDT 02/28 CPT-01973 Venipuncture Draw Fee 12:25:15 CDT CPT-91343 Knee 3V 16:48:40 CDT CPT-OV Office Visit 16:27:13 CDT CPT-OV Office Visit 16:21:19 CDT CPT-70248 Sono pelvis non OB uterus ovaries cervix 09:37:28 CDT
--- OUTSIDE RECORDS SUMMARY | 2018-12-22 01:50 | XMS REPORT | Clinical Summary ---
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 V58.67 Active Celestine [...] I, with hypoglycemia ICD-250.81 Nathan Markham MD oil heaterman use 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 ICD-V58.67 Nathan Markham MD Abdominal pain ICD-789.00 Nathan Markham MD Hematochezia ICD-578.1 Nathan Markham MD Nausea ICD-787.02 Nathan Markham MD 06/26 Otitis externa, acute, left ICD-380.12 Nathan Markham MD Medication List Medication Instructions Start Date Stop Date Generic Name NDC Status Provider Patient Instruction LEVAQUIN 500 MG TABS 1 daily for infection LEVOFLOXACIN 37474327729 Active Shreya Caroline PARK MAINTAINER Active GEMFIBROZIL 600 MG TABS 1 po BID GEMFIBROZIL 10481132161 Active Ang Markham MD Active CORTISPORIN 3.5-48452-1 SOLN 4gtts in affected ear QID x 7 days [id number] 25693045273 No Longer Active Ang Markham MD Active TRESIBA FLEXTOUCH 200 UNIT/ML SC SOPN Take 70 units daily at mid-night to 1 am. INSULIN DEGLUDEC 89764015627 Active Celestine PEARCE Active LEVEMIR FLEXTOUCH 100 UNIT/ML SC SOPN 35 units SC at 12-1pm, 35 units 12-1am INSULIN DETEMIR 12704342410 No Longer Active Celestine PEARCE Active REGLAN 10 MG TAB 0.5 po TID 30min prior to meals METOCLOPRAMIDE HCL 60667945902 Active Ang Markham MD Active ZANTAC 150 MG TAB 1 po BID RANITIDINE HCL 11277754385 Active Ang Markham MD Active DOXEPIN HCL 10 MG CAP 1 tablet nightly for the itch DOXEPIN HCL 15519195800 Active Ang Markham MD Active COLACE 100 MG CAP 1 po daily DOCUSATE SODIUM 07587373493 Active Gabriel Hunt DO Active NOVOLOG FLEXPEN 100 UNIT/ML SOPN Take 20 units TID with meals, plus 2u/50 for blood sugars above 150. Ratio vs. Carbs INSULIN ASPART 95331221061 Active Gabriel Hunt DO Active BD PEN NEEDLE DINESH U/F 32G X 4 MM MISC 5 a day INSULIN PEN NEEDLE 73146501298 Active Celestine PEARCE Active EMBRACE BLOOD GLUCOSE TEST STRP Test blood sugars 4 times daily and PRN 08/05 GLUCOSE BLOOD 01160611752 No Longer Active Celestine Sierraglari ADVERTISING AGENT Active TRUEPLUS LANCETS 30G MISC 4 a day LANCETS 54795809018 Active Celestine Hoganari ADVERTISING AGENT Active TRUETEST TEST STRP check blood sugars 4x/day GLUCOSE BLOOD 79438993935 Active Celestine Sierraglari ADVERTISING AGENT Active TRUERESULT BLOOD GLUCOSE W/DEVICE KIT check blood sugars 4x a day BLOOD GLUCOSE MONITORING SUPPL 44538595561 Active Celestine Sierraglari ADVERTISING AGENT Active LISINOPRIL 5 MG TABS 1 po qd LISINOPRIL 70693652387 Active Ang Markham MD Active PAXIL 20 MG TAB 1 tablet by mouth daily PAROXETINE HCL 88287136369 Active Ang Markham MD Active GENTAMICIN SULFATE 0.1 % EXT OINT Apply to open sores once a day. GENTAMICIN SULFATE 84707213342 No Longer Active Ang Markham MD Active ZOLPIDEM TARTRATE 10 MG TABS 1 po qHS PRN Insomnia ZOLPIDEM TARTRATE 05234359380 Active Ang Markham MD Active BACTRIM DS 800-160 MG TAB 1 tab by mouth twice daily TRIMETHOPRIM-SULFAMETHOXAZOLE 98471396592 No Longer Active Gloriajuliette Goveaharlan PARK MAINTAINER Active LEVEMIR FLEXPEN 100 UNIT/ML SOLN 40 units SC at bedtime INSULIN DETEMIR No Longer Active Susan Adan RMA Active INSUPEN ULTRAFIN 31G X 6 MM MISC Use with insulin qid. DX: E11.9 INSULIN PEN NEEDLE 42680318469 Active Ang Markham MD Active ZOLOFT 100 MG TAB 1 po qHS SERTRALINE HCL 66933283371 No Longer Active Ang Markham MD Active MELOXICAM 15 MG TABS 1 po qd PRN Knee Pain MELOXICAM 32558637072 No Longer Active Ang Markham MD Active LIPITOR 40 MG TAB 1 po qHS ATORVASTATIN CALCIUM 92585361159 Active Ang Markham MD Active METFORMIN HCL 1000 MG TABS 1 tablet by mouth twice daily METFORMIN HCL 43724231992 Active Ang Markham MD Active CYCLOBENZAPRINE HCL 5 MG TABS 1 po qHS PRN Muscle pain CYCLOBENZAPRINE HCL 11948731616 Active Ang Markham MD Active COLACE 100 MG CAP 1 po BID PRN Constipation DOCUSATE SODIUM 01047259188 No Longer Active Ang Markham MD Active HYDROXYZINE HCL 25 MG TAB 1 TID PRN nerves HYDROXYZINE HCL 48557693357 Active Ang Markham MD Active IBUPROFEN 800 MG TABS 1 tab every 8 hours as needed for pain 2013 IBUPROFEN 78661715602 No Longer Active Ang Markham MD Active NITROFURANTOIN MACROCRYSTAL 100 MG CAPS 1 capsule PO bid x 7 days NITROFURANTOIN MACROCRYSTAL 30986895906 No Longer Active Ang Markham MD Active DIFLUCAN 150 MG TAB 1 qODay x 2 doses FLUCONAZOLE 76017554305 No Longer Active Jillpiedad Nguyenl DAYO Active CEFTIN 500 MG TAB 1 tablet by mouth twice daily for 7 days 07/24 CEFUROXIME AXETIL 08095656912 No Longer Active Anthony CARBONE Active ZOLOFT 50 MG TAB 1 tablet by mouth daily SERTRALINE HCL 40144557529 No Longer Active Anthony CARBONE Active ANUSOL-HC 2.5 % CREAM apply as needed HYDROCORTISONE (RECTAL) 95916646137 No Longer Active Anthony CARBONE Active COLACE 100 MG CAP 1 tab PO BID DOCUSATE SODIUM 45943226413 No Longer Active Anthony CARBONE Active TRINESSA (28) 0.18/0.215/0.25 MG-35 MCG TABS 1 po qd as directed NORGESTIM-ETH ESTRAD TRIPHASIC 83888034175 No Longer Active Anthony CARBONE Active [facility] MELATONIN 5 MG TABS 1-2 po qHS PRN Insomnia MELATONIN 02187003467 No Longer Active Anthony CARBONE Active ACYCLOVIR 400 MG TABS ACYCLOVIR 82574445259 No Longer Active Ang Markham MD Active HYDROXYZINE HCL 25 MG TABS 1 tab PO tid PRN itching HYDROXYZINE HCL 89453545581 No Longer Active Ang Markham MD Active DIFLUCAN 150 MG TAB 1 qODay x 2 doses FLUCONAZOLE 39545962820 No Longer Active Jillina Frazell PARK MAINTAINER Active ACYCLOVIR 400 MG TABS 1 pill twice daily ACYCLOVIR 65092343081 No Longer Active Jillina Frazell PARK MAINTAINER Active AZITHROMYCIN 250 MG TABS 2 po qd x 1 day, then 1 po qd x 4 days AZITHROMYCIN 36654164584 No Longer Active Eri Borges MD PhD Active AZITHROMYCIN 250 MG TABS take 2 po day 1 then take1 po days 2-5 AZITHROMYCIN 13661902805 No Longer Active Octaviano CARBONE Active ACYCLOVIR 400 MG TABS 1 po qd ACYCLOVIR 50468519178 No Longer Active Ang Markham MD Active PROZAC 40 MG CAPS 1 cap by mouth at bedtime FLUOXETINE HCL 75669219583 No Longer Active Ang Markham MD Active HYDROXYZINE HCL 25 MG TABS 1 tab PO tid PRN itching HYDROXYZINE HCL 25 MG TABS 733753 HYDROXYZINE HCL Inactive [facility] MELATONIN 5 MG TABS 1-2 po qHS PRN Insomnia [facility] MELATONIN 5 MG TABS 375089 MELATONIN Inactive TRINESSA (28) 0.18/0.215/0.25 MG-35 MCG TABS 1 po qd as directed TRINESSA (28) 0.18/0.215/0.25 MG-35 MCG TABS 336193 NORGESTIM-ETH ESTRAD TRIPHASIC Inactive COLACE 100 MG CAP 1 tab PO BID COLACE 100 MG CAP 7069284 DOCUSATE SODIUM Inactive ANUSOL-HC 2.5 % CREAM apply as needed ANUSOL-HC 2.5 % CREAM 928569 HYDROCORTISONE (RECTAL) Inactive ZOLOFT 50 MG TAB 1 tablet by mouth daily ZOLOFT 50 MG TAB 706731 SERTRALINE HCL Inactive CEFTIN 500 MG TAB 1 tablet by mouth twice daily for 7 days 07/24 CEFTIN 500 MG TAB 798588 CEFUROXIME AXETIL Inactive NITROFURANTOIN MACROCRYSTAL 100 MG CAPS 1 capsule PO bid x 7 days NITROFURANTOIN MACROCRYSTAL 100 MG CAPS 5270852 NITROFURANTOIN MACROCRYSTAL Inactive IBUPROFEN 800 MG TABS 1 tab every 8 hours as needed for pain 2013 IBUPROFEN 800 MG TABS 311698 IBUPROFEN Inactive COLACE 100 MG CAP 1 po BID PRN Constipation COLACE 100 MG CAP 1454218 DOCUSATE SODIUM Inactive MELOXICAM 15 MG TABS 1 po qd PRN Knee Pain MELOXICAM 15 MG TABS 739047 MELOXICAM Inactive LEVEMIR FLEXPEN 100 UNIT/ML SOLN 40 units SC at bedtime LEVEMIR FLEXPEN 100 UNIT/ML SOLN INSULIN DETEMIR Inactive GENTAMICIN SULFATE 0.1 % EXT OINT Apply to open sores once a day. GENTAMICIN SULFATE 0.1 % EXT OINT 793566 GENTAMICIN SULFATE Inactive EMBRACE BLOOD GLUCOSE TEST STRP Test blood sugars 4 times daily and PRN 08/05 EMBRACE BLOOD GLUCOSE TEST STRP GLUCOSE BLOOD Inactive LEVEMIR FLEXTOUCH 100 UNIT/ML SC SOPN 35 units SC at 12-1pm, 35 units 12-1am LEVEMIR FLEXTOUCH 100 UNIT/ML SC SOPN INSULIN DETEMIR Inactive CORTISPORIN 3.5-52496-4 SOLN 4gtts in affected ear QID x 7 days CORTISPORIN 3.5-94713-3 COUNT INCLUDES THE [facility] 486268 [id number] Inactive ACYCLOVIR 400 MG TABS 1 po qd ACYCLOVIR 400 MG TABS 19720928 ACYCLOVIR Inactive AZITHROMYCIN 250 MG TABS take 2 po day 1 then take1 po days 2-5 AZITHROMYCIN 250 MG TABS 4484608 AZITHROMYCIN Inactive AZITHROMYCIN 250 MG TABS 2 po qd x 1 day, then 1 po qd x 4 days AZITHROMYCIN 250 MG TABS 5026377 AZITHROMYCIN Inactive ACYCLOVIR 400 MG TABS 1 pill twice daily ACYCLOVIR 400 MG TABS 19720928 ACYCLOVIR Inactive DIFLUCAN 150 MG TAB 1 qODay x 2 doses DIFLUCAN 150 MG TAB 19760606 FLUCONAZOLE Inactive ACYCLOVIR 400 MG TABS ACYCLOVIR 400 MG TABS 19720928 ACYCLOVIR Inactive DIFLUCAN 150 MG TAB 1 qODay x 2 doses DIFLUCAN 150 MG TAB 993283 FLUCONAZOLE Inactive BACTRIM DS 800-160 MG TAB 1 tab by mouth twice daily BACTRIM DS 800-160 MG TAB 258382 TRIMETHOPRIM-SULFAMETHOXAZOLE Inactive Advance Directives Directive Description Start [...] Panel - Chemistry sodium, serum 130 mmol/L 055-947 6610/10/12 carbon dioxide, venous blood 28.1 mmol/L 21.0-32.0 potassium, serum 3.9 mmol/L 3.5-5.2 chloride, serum 91 mmol/L 98-107 blood glucose 547 mg/dL 65-110 urea nitrogen, blood 3 mg/dL 7-18 creatinine, serum 0.78 mg/dL 0.55-1.30 alanine aminotransferase (SGPT), serum 11 U/L 12-78 aspartate aminotransferase (SGOT), serum 7 U/L 15-37 calcium, serum 8.8 mg/dL 8.5-10.1 bilirubin, serum, total 0.30 mg/dL 0.00-1.00 cholesterol, serum 221 mg/dL 453-984 3920/10/12 triglyceride, serum, fasting 590 mg/dL 30-200 HDL cholesterol, serum 45 mg/dL 32-96 LDL cholesterol, serum 58 mg/dL 0-130 Lab Report: HGBA1C - Chemistry hemoglobin A1C, blood, as % of total hemoglobin 11.4 % 4.3-6.0 Lab Report: UADIP W/MICRO, AUTO, CBC W/DIFF, Comp. Metabolic Panel - Chemistry RBC, urine, dipstick Negative Negative sodium, serum 133 mmol/L 517-939 6780/06/03 carbon dioxide, venous blood 33.4 mmol/L 21.0-32.0 [...] nitrite, urine, semiquantitative Negative Negative Lab Report: [facility] - Chemistry human chorionic gonadotropin, urine, qualitative [...] mg/dL Encounters Code Encounter Date Provider Facility CPT-61868 Level 3 Est. Patient 15:02:19 CDT Shreya Velazquez [facility] CPT-74506 Level 3 Est. Patient 13:22:25 CDT Gabriel Hunt [facility] CPT-42563 Level 4 Est. Patient 16:02:22 CDT Ang Markham MD [facility] CPT-32644 Level 3 Est. Patient 16:21:[address] [facility] CPT-41571 Level 3 Est. Patient 17:02:56 CDT Gabriel Hunt [facility] CPT-35932 Level 3 Est. Patient 14:46:22 CDT Da Romero [facility] CPT-17089 Level 4 Est. Patient 13:55:20 CDT Ang Markham MD [facility] CPT-13073 Level 4 Est. Patient 16:10:09 CDT Celestine Huerta [facility] CPT-60427 Level 3 Est. Patient 13:51:24 CDT Ang Markham MD [facility] CPT-72929 Level 3 Est. Patient 18:42:15 CDT Gabriel Hunt [facility] CPT-34433 Level 5 Est. [facility] 14:40:[facility] CPT-93388 Level 4 Est. Patient 14:36:17 CDT Ang Markham MD [facility] CPT-07268 Level 3 Est. Patient 11:13:47 MANAGER AMBULATORY Ang Markham MD [facility] CPT-09057 Level 3 Est. Patient 11:59:20 MANAGER AMBULATORY Gloria Dunbar [facility] CPT-56630 Level 3 Est. Patient 17:32:37 MANAGER AMBULATORY Gloria Dunbar [facility] CPT-96362 Level 4 Est. Patient 16:39:07 CDT Ang Markham MD [facility] CPT-35330 Level 3 Est. Patient 16:35:50 CDT Ang Markham MD [facility] CPT-74044 Level 4 Est. Patient 13:53:06 MANAGER AMBULATORY Ang Markham MD [facility] CPT-89742 Level 3 Est. Patient 08:58:08 MANAGER AMBULATORY Ang Markham MD [facility] CPT-64096 Level 3 Est. Patient 18:48:29 CDT Anthony Whitfield [facility] CPT-61624 Level 3 Est. Patient 12:16:59 CDT Gabriel Hunt DO [facility] CPT-07196 Level 3 Est. Patient 18:57:15 CDT Anthony Whitfield [facility] CPT-34598 Level 3 Est. Patient 13:59:22 MANAGER AMBULATORY Ang Markham MD [facility] CPT-42294 Level 4 Est. Patient 10:36:08 MANAGER AMBULATORY Ang Markham MD [facility] CPT-73425 Level 3 Est. Patient 16:27:02 CDT Eri Borges MD PhD [facility] CPT-47239 Level 3 Est. Patient 10:36:43 CDT Octaviano Dempsey [facility] CPT-88082 Level 4 New Patient 08:58:06 CDT Ang Markham MD [facility] Procedures Code Procedure Name Date Entry Date Standard Description CPT-76411 LS spine comp w obliques - XRAY USE ONLY 15:34:48 CDT CPT-49000 Lipid - LAB USE ONLY 15:28:39 CDT CPT-28721 CMP - LAB USE ONLY 15:28:39 CDT CPT-12193 Venipuncture Draw Fee 15:28:39 CDT CPT-94876 Abd compl w upright - XRAY USE ONLY 14:09:39 CDT 02/28 CPT-65803 Venipuncture Draw Fee 12:25:15 CDT CPT-00361 Knee 3V 16:48:40 CDT CPT-OV Office Visit 16:27:13 CDT CPT-OV Office Visit 16:21:19 CDT CPT-25038 Sono pelvis non OB uterus ovaries cervix 09:37:28 CDT
--- OUTSIDE RECORDS SUMMARY | 2018-12-22 01:51 | XMS REPORT | Clinical Summary ---
Author Author Admin, QIE Organization [employer] Address Unknown Phone Unavailable Allergies, Adverse Reactions, [...] unspecified hyperlipidemia Hematochezia 578.1 Active Jisteph Romero MIXER DIAMOND POWDER Blood in stool Nausea 787.02 Active Jillina Franayal MIXER DIAMOND POWDER Nausea alone Otitis externa, acute, left 380.12 [...] with hypoglycemia ICD-250.81 Inactive Ang Markham MD alf use 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 ICD-V58.67 Inactive Ang Markham MD Medication List Medication Instructions Start Date Stop Date Generic Name NDC Status Provider Patient Instruction CORTISPORIN 3.5-81910-8 SOLN 4gtts in affected ear QID x 7 days [id number] Active Gabriel Hunt DO Active LEVEMIR FLEXTOUCH 100 UNIT/ML SC SOPN 35 units SC at 12-1pm, 35 units 12-1am INSULIN DETEMIR 43776429803 Active Ang Markham MD Active DOXEPIN HCL 10 MG CAP 1 tablet nightly for the itch DOXEPIN HCL 69447911559 Active Gabriel Hunt DO Active COLACE 100 MG CAP 1 po daily DOCUSATE SODIUM 50191063235 Wiley Hunt DO Active NOVOLOG FLEXPEN 100 UNIT/ML SOPN Take 20 units TID with meals, plus 2u/50 for blood sugars above 150. Ratio vs. Carbs INSULIN ASPART 19152092527 Active Gabriel Hunt DO Active BD PEN NEEDLE DINESH U/F 32G X 4 MM MISC 5 a day INSULIN PEN NEEDLE 99345627899 Active Celestine Sierraglari SHADE MAKER Active EMBRACE BLOOD GLUCOSE TEST STRP Test blood sugars 4 times daily and PRN 08/05 GLUCOSE BLOOD 36854130107 No Longer Active Celestine Sierraglari SHADE MAKER Active TRUEPLUS LANCETS 30G MISC 4 a day LANCETS 01975533271 Active Celestine Sierraglari SHADE MAKER Active TRUETEST TEST STRP check blood sugars 4x/day GLUCOSE BLOOD 44522115206 Active Celestine Sierraglari SHADE MAKER Active TRUERESULT BLOOD GLUCOSE W/DEVICE KIT check blood sugars 4x a day BLOOD GLUCOSE MONITORING SUPPL 77865875076 Active Celestine Sierraglari SHADE MAKER Active LISINOPRIL 5 MG TABS 1 po qd LISINOPRIL 85429537273 Active Ang Markham MD Active PAXIL 20 MG TAB 1 tablet by mouth daily PAROXETINE HCL 86137293816 Active Ang Markham MD Active GENTAMICIN SULFATE 0.1 % EXT OINT Apply to open sores once a day. GENTAMICIN SULFATE 52139840386 No Longer Active Ang Markham MD Active ZOLPIDEM TARTRATE 10 MG TABS 1 po qHS PRN Insomnia ZOLPIDEM TARTRATE 84938392921 Active Ang Markham MD Active BACTRIM DS 800-160 MG TAB 1 tab by mouth twice daily TRIMETHOPRIM-SULFAMETHOXAZOLE 65080032700 No Longer Active Gloria Dunbar MIXER DIAMOND POWDER Active LEVEMIR FLEXPEN 100 UNIT/ML SOLN 40 units SC at bedtime INSULIN DETEMIR No Longer Active Susan Arellano RMA Active INSUPEN ULTRAFIN 31G X 6 MM MISC Use with insulin qid. DX: E11.9 INSULIN PEN NEEDLE 53679187688 Active Ang Markham MD Active ZOLOFT 100 MG TAB 1 po qHS SERTRALINE HCL 94993965843 No Longer Active Ang Markham MD Active MELOXICAM 15 MG TABS 1 po qd PRN Knee Pain MELOXICAM 01621177846 No Longer Active Ang Markham MD Active LIPITOR 40 MG TAB 1 po qHS ATORVASTATIN CALCIUM 19439299646 Active Ang Markham MD Active METFORMIN HCL 1000 MG TABS 1 tablet by mouth twice daily METFORMIN HCL 00572513047 Active Ang Markham MD Active CYCLOBENZAPRINE HCL 5 MG TABS 1 po qHS PRN Muscle pain CYCLOBENZAPRINE HCL 10779547578 Active Ang Markham MD Active COLACE 100 MG CAP 1 po BID PRN Constipation DOCUSATE SODIUM 33816752266 No Longer Active Ang Markham MD Active HYDROXYZINE HCL 25 MG TAB 1 TID PRN nerves HYDROXYZINE HCL 97296742479 Active Ang Markham MD Active IBUPROFEN 800 MG TABS 1 tab every 8 hours as needed for pain 2013 IBUPROFEN 79431358289 No Longer Active Ang Markham MD Active NITROFURANTOIN MACROCRYSTAL 100 MG CAPS 1 capsule PO bid x 7 days NITROFURANTOIN MACROCRYSTAL 28037930830 No Longer Active Ang Markham MD Active DIFLUCAN 150 MG TAB 1 qODay x 2 doses FLUCONAZOLE 20216789291 No Longer Active Da Romero APRN Active CEFTIN 500 MG TAB 1 tablet by mouth twice daily for 7 days 07/24 CEFUROXIME AXETIL 69379055194 No Longer Active Anthony CARBONE Active ZOLOFT 50 MG TAB 1 tablet by mouth daily SERTRALINE HCL 96472510159 No Longer Active Anthony CARBONE Active ANUSOL-HC 2.5 % CREAM apply as needed HYDROCORTISONE (RECTAL) 23125552008 No Longer Active Anthony CARBONE Active COLACE 100 MG CAP 1 tab PO BID DOCUSATE SODIUM 03717255832 No Longer Active Anthony CARBONE Active TRINESSA (28) 0.18/0.215/0.25 MG-35 MCG TABS 1 po qd as directed NORGESTIM-ETH ESTRAD TRIPHASIC 10345811848 No Longer Active Anthony CARBONE Active [facility] MELATONIN 5 MG TABS 1-2 po qHS PRN Insomnia MELATONIN 66163352429 No Longer Active Anthony CARBONE Active ACYCLOVIR 400 MG TABS ACYCLOVIR 17005811869 No Longer Active Ang Markham MD Active HYDROXYZINE HCL 25 MG TABS 1 tab PO tid PRN itching HYDROXYZINE HCL 09437031444 No Longer Active Ang Markham MD Active DIFLUCAN 150 MG TAB 1 qODay x 2 doses FLUCONAZOLE 81066778961 No Longer Active Jillina Frazell MIXER DIAMOND POWDER Active ACYCLOVIR 400 MG TABS 1 pill twice daily ACYCLOVIR 29251913761 No Longer Active Jillina Frazell MIXER DIAMOND POWDER Active AZITHROMYCIN 250 MG TABS 2 po qd x 1 day, then 1 po qd x 4 days AZITHROMYCIN 04634517441 No Longer Active Eri Borges MD PhD Active AZITHROMYCIN 250 MG TABS take 2 po day 1 then take1 po days 2-5 AZITHROMYCIN 86203919761 No Longer Active Octaviano CARBONE Active ACYCLOVIR 400 MG TABS 1 po qd ACYCLOVIR 29844327808 No Longer Active Ang Markham MD Active PROZAC 40 MG CAPS 1 cap by mouth at bedtime FLUOXETINE HCL 12001740740 No Longer Active Ang Markham MD Active HYDROXYZINE HCL 25 MG TABS 1 tab PO tid PRN itching HYDROXYZINE HCL 25 MG TABS 580431 HYDROXYZINE HCL Inactive [facility] MELATONIN 5 MG TABS 1-2 po qHS PRN Insomnia [facility] MELATONIN 5 MG TABS 675599 MELATONIN Inactive TRINESSA (28) 0.18/0.215/0.25 MG-35 MCG TABS 1 po qd as directed TRINESSA (28) 0.18/0.215/0.25 MG-35 MCG TABS 670500 NORGESTIM-ETH ESTRAD TRIPHASIC Inactive COLACE 100 MG CAP 1 tab PO BID COLACE 100 MG CAP 3831558 DOCUSATE SODIUM Inactive ANUSOL-HC 2.5 % CREAM apply as needed ANUSOL-HC 2.5 % CREAM 451532 HYDROCORTISONE (RECTAL) Inactive ZOLOFT 50 MG TAB 1 tablet by mouth daily ZOLOFT 50 MG TAB 834547 SERTRALINE HCL Inactive CEFTIN 500 MG TAB 1 tablet by mouth twice daily for 7 days 07/24 CEFTIN 500 MG TAB 331588 CEFUROXIME AXETIL Inactive NITROFURANTOIN MACROCRYSTAL 100 MG CAPS 1 capsule PO bid x 7 days NITROFURANTOIN MACROCRYSTAL 100 MG CAPS 8686495 NITROFURANTOIN MACROCRYSTAL Inactive IBUPROFEN 800 MG TABS 1 tab every 8 hours as needed for pain 2013 IBUPROFEN 800 MG TABS 206035 IBUPROFEN Inactive COLACE 100 MG CAP 1 po BID PRN Constipation COLACE 100 MG CAP 4164836 DOCUSATE SODIUM Inactive MELOXICAM 15 MG TABS 1 po qd PRN Knee Pain MELOXICAM 15 MG TABS 067346 MELOXICAM Inactive LEVEMIR FLEXPEN 100 UNIT/ML SOLN 40 units SC at bedtime LEVEMIR FLEXPEN 100 UNIT/ML SOLN INSULIN DETEMIR Inactive GENTAMICIN SULFATE 0.1 % EXT OINT Apply to open sores once a day. GENTAMICIN SULFATE 0.1 % EXT OINT 874619 GENTAMICIN SULFATE Inactive EMBRACE BLOOD GLUCOSE TEST STRP Test blood sugars 4 times daily and PRN 08/05 EMBRACE BLOOD GLUCOSE TEST STRP GLUCOSE BLOOD Inactive ACYCLOVIR 400 MG TABS 1 po qd ACYCLOVIR 400 MG TABS 19720928 ACYCLOVIR Inactive AZITHROMYCIN 250 MG TABS take 2 po day 1 then take1 po days 2-5 AZITHROMYCIN 250 MG TABS 6499073 AZITHROMYCIN Inactive AZITHROMYCIN 250 MG TABS 2 po qd x 1 day, then 1 po qd x 4 days AZITHROMYCIN 250 MG TABS 1458577 AZITHROMYCIN Inactive ACYCLOVIR 400 MG TABS 1 pill twice daily ACYCLOVIR 400 MG TABS 19720928 ACYCLOVIR Inactive DIFLUCAN 150 MG TAB 1 qODay x 2 doses DIFLUCAN 150 MG TAB 19760606 FLUCONAZOLE Inactive ACYCLOVIR 400 MG TABS ACYCLOVIR 400 MG TABS 19720928 ACYCLOVIR Inactive DIFLUCAN 150 MG TAB 1 qODay x 2 doses DIFLUCAN 150 MG TAB 330656 FLUCONAZOLE Inactive BACTRIM DS 800-160 MG TAB 1 tab by mouth twice daily BACTRIM DS 800-160 MG TAB 758566 TRIMETHOPRIM-SULFAMETHOXAZOLE Inactive Advance Directives Directive Description Start [...] HGBA1C - Chemistry sodium, serum 134 mmol/L 098-467 8220/03/16 carbon dioxide, venous blood 34.5 mmol/L 21.0-32.0 potassium, serum 4.6 mmol/L 3.5-5.2 chloride, serum 93 mmol/L 98-107 blood glucose 408 mg/dL 65-110 urea nitrogen, blood 3 mg/dL 7-18 creatinine, serum 0.58 mg/dL 0.55-1.30 alanine aminotransferase (SGPT), serum 11 U/L 12-78 aspartate aminotransferase (SGOT), serum 8 U/L 15-37 calcium, serum 9.2 mg/dL 8.5-10.1 bilirubin, serum, total 0.30 mg/dL 0.00-1.00 cholesterol, serum 195 mg/dL 595-942 5919/03/16 triglyceride, serum, fasting 138 mg/dL 30-200 HDL [...] Panel - Chemistry sodium, serum 133 mmol/L 480-371 9720/06/03 carbon dioxide, venous blood 33.4 mmol/L 21.0-32.0 [...] pH, urine, semiquantitative 5.5 5.0-8.5 Lab Report: [facility] [place] human chorionic gonadotropin, urine, qualitative [...] Yes Encounters Code Encounter Date Provider Facility CPT-23748 Level 3 Est. Patient 17:02:56 CDT Gabriel Ramos [facility] CPT-21507 Level 3 Est. Patient 14:46:22 CDT Da Romero [facility] CPT-65651 Level 4 Est. Patient 13:55:20 CDT Ang Markham MD [facility] CPT-15528 Level 4 Est. Patient 16:10:09 CDT Celestine Huerta [facility] CPT-77117 Level 3 Est. Patient 13:51:24 CDT Ang Markham MD [facility] CPT-78003 Level 3 Est. Patient 18:42:15 CDT Gabriel Hunt [facility] CPT-11459 Level 5 Est. Patient 14:40:14 CDT Celestine Huerta [facility] CPT-04878 Level 4 Est. Patient 14:36:17 CDT Ang Markham MD [facility] CPT-79109 Level 3 Est. Patient 11:13:47 PATIENT SUPPORT TECH Ang Markham MD [facility] CPT-50961 Level 3 Est. Patient 11:59:20 PATIENT SUPPORT TECH Gloria Dunbar [facility] CPT-01332 Level 3 Est. Patient 17:32:37 PATIENT SUPPORT TECH Gloria Dunbar [facility] CPT-47568 Level 4 Est. Patient 16:39:07 CDT Ang Markham MD [facility] CPT-52910 Level 3 Est. Patient 16:35:50 CDT Ang Markham MD [facility] CPT-73064 Level 4 Est. Patient 13:53:06 PATIENT SUPPORT TECH Ang Markham MD [facility] CPT-67061 Level 3 Est. Patient 08:58:08 PATIENT SUPPORT TECH Ang Markham MD [facility] CPT-87481 Level 3 Est. Patient 18:48:29 CDT Anthony Whitfield [facility] CPT-79589 Level 3 Est. Patient 12:16:59 CDT Gabriel Hunt DO [facility] CPT-93927 Level 3 Est. Patient 18:57:15 CDT Anthony Whitfield [facility] CPT-01110 Level 3 Est. Patient 13:59:22 PATIENT SUPPORT TECH Ang Markham MD [facility] CPT-24032 Level 4 Est. Patient 10:36:08 PATIENT SUPPORT TECH Ang Markham MD [facility] CPT-91408 Level 3 Est. Patient 16:27:02 CDT Eri Borges MD PhD [facility] CPT-54640 Level 3 Est. Patient 10:36:43 CDT Octaviano Roselyn [facility] CPT-50953 Level 4 New Patient 08:58:06 CDT Ang Markham MD [facility] Procedures Code Procedure Name Date Entry Date Standard Description CPT-26609 Abd compl w upright - XRAY USE ONLY 14:09:39 CDT 02/28 CPT-10711 Venipuncture Draw Fee 12:25:15 CDT CPT-93062 Knee 3V 16:48:40 CDT CPT-OV Office Visit 16:27:13 CDT CPT-OV Office Visit 16:21:19 CDT CPT-24638 Sono pelvis non OB uterus ovaries cervix 09:37:28 CDT
--- OUTSIDE RECORDS SUMMARY | 2018-12-22 01:51 | XMS REPORT | Clinical Summary ---
Author Author Admin, QIE Organization [employer] Address Unknown Phone Unavailable Allergies, Adverse Reactions, [...] Borges MD PhD SINUSITIS, ACUTE ICD-461.9 Inactive nAg Markham MD Constipation ICD-564.00 Inactive Ang Markham [...] 1 po BID PRN Constipation DOCUSATE SODIUM 25486325908 Active Ang Markhma MD Active PAXIL 20 MG TAB 1 tablet by mouth daily PAROXETINE HCL 67867825472 Active Ang Markham MD Active GENTAMICIN SULFATE 0.1 % EXT OINT Apply to open sores once a day. GENTAMICIN SULFATE 56024959736 No Longer Active Ang Markham MD Active ZOLPIDEM TARTRATE 10 MG TABS 1 po qHS PRN Insomnia ZOLPIDEM TARTRATE 83097137299 Active Ang Markham MD Active BACTRIM DS 800-160 MG TAB 1 tab by mouth twice daily TRIMETHOPRIM-SULFAMETHOXAZOLE 51331784028 No Longer Active lGoria Dunbar DIGITAL MARKETING LEAD Active LEVEMIR FLEXTOUCH 100 UNIT/ML SC SOPN 40 units SC nightly INSULIN DETEMIR 82130837667 Active Ang Markham MD Active LEVEMIR FLEXPEN 100 UNIT/ML SOLN 40 units SC at bedtime INSULIN DETEMIR No Longer Active Susan Arellano RMA Active INSUPEN ULTRAFIN 31G X 6 MM MISC Use with insulin qid. DX: E11.9 INSULIN PEN NEEDLE 78794588196 Active Ang Markham MD Active ZOLOFT 100 MG TAB 1 po qHS SERTRALINE HCL 88810865439 No Longer Active Ang Markham MD Active MELOXICAM 15 MG TABS 1 po qd PRN Knee Pain MELOXICAM 68873020773 No Longer Active Ang Markham MD Active LIPITOR 40 MG TAB 1 po qHS ATORVASTATIN CALCIUM 73641090710 Active Ang Markham MD Active METFORMIN HCL 1000 MG TABS 1 tablet by mouth twice daily METFORMIN HCL 50114344456 Active Ang Markham MD Active CYCLOBENZAPRINE HCL 5 MG TABS 1 po qHS PRN Muscle pain CYCLOBENZAPRINE HCL 05254871009 Active Ang Markham MD Active COLACE 100 MG CAP 1 po BID PRN Constipation DOCUSATE SODIUM 42433614452 No Longer Active Ang Markham MD Active HYDROXYZINE HCL 25 MG TAB 1 TID PRN nerves HYDROXYZINE HCL 44273726448 Active Ang Markham MD Active IBUPROFEN 800 MG TABS 1 tab every 8 hours as needed for pain 2013 IBUPROFEN 30292328547 No Longer Active Ang Markham MD Active NITROFURANTOIN MACROCRYSTAL 100 MG CAPS 1 capsule PO bid x 7 days NITROFURANTOIN MACROCRYSTAL 82914165596 No Longer Active Ang Markham MD Active DIFLUCAN 150 MG TAB 1 qODay x 2 doses FLUCONAZOLE 74497272502 No Longer Active Da Romero DIGITAL MARKETING LEAD Active CEFTIN 500 MG TAB 1 tablet by mouth twice daily for 7 days 07/24 CEFUROXIME AXETIL 06452669423 No Longer Active Anthony CARBONE Active ZOLOFT 50 MG TAB 1 tablet by mouth daily SERTRALINE HCL 24550728584 No Longer Active Anthony CARBONE Active ANUSOL-HC 2.5 % CREAM apply as needed HYDROCORTISONE (RECTAL) 49066911239 No Longer Active Anthony CARBONE Active COLACE 100 MG CAP 1 tab PO BID DOCUSATE SODIUM 57585422335 No Longer Active Anthony CARBONE Active TRINESSA (28) 0.18/0.215/0.25 MG-35 MCG TABS 1 po qd as directed NORGESTIM-ETH ESTRAD TRIPHASIC 52906096389 No Longer Active Anthony CARBONE Active [facility] MELATONIN 5 MG TABS 1-2 po qHS PRN Insomnia MELATONIN 13261254570 No Longer Active Anthony CARBONE Active NOVOLOG FLEXPEN 100 UNIT/ML SOPN Take 18 units TID with meals INSULIN ASPART 37571971856 Active Codey Hdez MD Active ACYCLOVIR 400 MG TABS ACYCLOVIR 32723238158 No Longer Active Ang Markham MD Active EMBRACE BLOOD GLUCOSE TEST STRP Test blood sugars 4 times daily and PRN 08/05 GLUCOSE BLOOD 54713392712 Active Ang Markham MD Active HYDROXYZINE HCL 25 MG TABS 1 tab PO tid PRN itching HYDROXYZINE HCL 88830340092 No Longer Active Ang Markham MD Active DIFLUCAN 150 MG TAB 1 qODay x 2 doses FLUCONAZOLE 97462166019 No Longer Active Da Romero APRN Active ACYCLOVIR 400 MG TABS 1 pill twice daily ACYCLOVIR 04816413106 No Longer Active Jillina Nick OSHEA Active AZITHROMYCIN 250 MG TABS 2 po qd x 1 day, then 1 po qd x 4 days AZITHROMYCIN 93750256558 No Longer Active Eri Borges MD PhD Active AZITHROMYCIN 250 MG TABS take 2 po day 1 then take1 po days 2-5 AZITHROMYCIN 98680654790 No Longer Active Octaviano CARBONE Active ACYCLOVIR 400 MG TABS 1 po qd ACYCLOVIR 36420010645 No Longer Active Ang Markham MD Active PROZAC 40 MG CAPS 1 cap by mouth at bedtime FLUOXETINE HCL 25879758353 No Longer Active Ang Markham MD Active HYDROXYZINE HCL 25 MG TABS 1 tab PO tid PRN itching HYDROXYZINE HCL 25 MG TABS 107716 HYDROXYZINE HCL Inactive [facility] MELAT[facility]IN 5 MG TABS 1-2 po qHS PRN Insomnia [facility] MELATONIN 5 MG TABS 305368 MELATONIN Inactive TRINESSA (28) 0.18/0.215/0.25 MG-35 MCG TABS 1 po qd as directed TRINESSA (28) 0.18/0.215/0.25 MG-35 MCG TABS 737035 NORGESTIM-ETH ESTRAD TRIPHASIC Inactive COLACE 100 MG CAP 1 tab PO BID COLACE 100 MG CAP 4151443 DOCUSATE SODIUM Inactive ANUSOL-HC 2.5 % CREAM apply as needed ANUSOL-HC 2.5 % CREAM 678140 HYDROCORTISONE (RECTAL) Inactive ZOLOFT 50 MG TAB 1 tablet by mouth daily ZOLOFT 50 MG TAB 459819 SERTRALINE HCL Inactive CEFTIN 500 MG TAB 1 tablet by mouth twice daily for 7 days 07/24 CEFTIN 500 MG TAB 283554 CEFUROXIME AXETIL Inactive NITROFURANTOIN MACROCRYSTAL 100 MG CAPS 1 capsule PO bid x 7 days NITROFURANTOIN MACROCRYSTAL 100 MG CAPS 6439186 NITROFURANTOIN MACROCRYSTAL Inactive IBUPROFEN 800 MG TABS 1 tab every 8 hours as needed for pain 2013 IBUPROFEN 800 MG TABS 071596 IBUPROFEN Inactive COLACE 100 MG CAP 1 po BID PRN Constipation COLACE 100 MG CAP 7483728 DOCUSATE SODIUM Inactive MELOXICAM 15 MG TABS 1 po qd PRN Knee Pain MELOXICAM 15 MG TABS 530339 MELOXICAM Inactive LEVEMIR FLEXPEN 100 UNIT/ML SOLN 40 units SC at bedtime LEVEMIR FLEXPEN 100 UNIT/ML SOLN INSULIN DETEMIR Inactive GENTAMICIN SULFATE 0.1 % EXT OINT Apply to open sores once a day. GENTAMICIN SULFATE 0.1 % EXT OINT 264662 GENTAMICIN SULFATE Inactive ACYCLOVIR 400 MG TABS 1 po qd ACYCLOVIR 400 MG TABS 19720928 ACYCLOVIR Inactive AZITHROMYCIN 250 MG TABS take 2 po day 1 then take1 po days 2-5 AZITHROMYCIN 250 MG TABS 7843247 AZITHROMYCIN Inactive AZITHROMYCIN 250 MG TABS 2 po qd x 1 day, then 1 po qd x 4 days AZITHROMYCIN 250 MG TABS 3135929 AZITHROMYCIN Inactive ACYCLOVIR 400 MG TABS 1 pill twice daily ACYCLOVIR 400 MG TABS 456879 ACYCLOVIR Inactive DIFLUCAN 150 MG TAB 1 qODay x 2 doses DIFLUCAN 150 MG TAB 923866 FLUCONAZOLE Inactive ACYCLOVIR 400 MG TABS ACYCLOVIR 400 MG TABS 227268 ACYCLOVIR Inactive DIFLUCAN 150 MG TAB 1 qODay x 2 doses DIFLUCAN 150 MG TAB 468284 FLUCONAZOLE Inactive BACTRIM DS 800-160 MG TAB 1 tab by mouth twice daily BACTRIM DS 800-160 MG TAB 768703 TRIMETHOPRIM-SULFAMETHOXAZOLE Inactive Advance Directives Directive Description Start [...] HGBA1C - Chemistry sodium, serum 134 mmol/L 154-420 9464/03/16 carbon dioxide, venous blood 34.5 mmol/L 21.0-32.0 potassium, serum 4.6 mmol/L 3.5-5.2 chloride, serum 93 mmol/L 98-107 blood glucose 408 mg/dL 65-110 urea nitrogen, blood 3 mg/dL 7-18 creatinine, serum 0.58 mg/dL 0.55-1.30 alanine aminotransferase (SGPT), serum 11 U/L 12-78 aspartate aminotransferase (SGOT), serum 8 U/L 15-37 calcium, serum 9.2 mg/dL 8.5-10.1 bilirubin, serum, total 0.30 mg/dL 0.00-1.00 cholesterol, serum 195 mg/dL 088-781 9877/03/16 triglyceride, serum, fasting 138 mg/dL 30-200 HDL [...] 0-19 Encounters Code Encounter Date Provider Facility CPT-79517 Level 3 Est. Patient 11:13:47 REAL ESTATE SERVICES COORDINATOR Ang Markham MD [facility] CPT-11986 Level 3 Est. Patient 11:59:20 REAL ESTATE SERVICES COORDINATOR Gloria Dunbar [facility] CPT-97947 Level 3 Est. Patient 17:32:37 REAL ESTATE SERVICES COORDINATOR Gloria Dunbar [facility] CPT-06496 Level 4 Est. Patient 16:39:07 CDT Ang Markham MD [facility] CPT-93598 Level 3 Est. Patient 16:35:50 CDT Ang Markham MD [facility] CPT-45105 Level 4 Est. Patient 13:53:06 REAL ESTATE SERVICES COORDINATOR Ang Markham MD [facility] CPT-54753 Level 3 Est. Patient 08:58:08 REAL ESTATE SERVICES COORDINATOR Ang Markham MD [facility] CPT-63500 Level 3 Est. Patient 18:48:29 CDT Anthony Whitfield [facility] CPT-00756 Level 3 Est. Patient 12:16:59 CDT Gabriel Hunt DO [facility] CPT-64023 Level 3 Est. Patient 18:57:15 CDT Anthony Whitfield [facility] CPT-26045 Level 3 Est. Patient 13:59:22 REAL ESTATE SERVICES COORDINATOR Ang Markham MD [facility] CPT-85019 Level 4 Est. Patient 10:36:08 REAL ESTATE SERVICES COORDINATOR Ang Markham MD [facility] CPT-93403 Level 3 Est. Patient 16:27:02 CDT Eri Borges MD PhD [facility] CPT-06257 Level 3 Est. Patient 10:36:43 CDT Octaviano CARBONE [facility] CPT-03125 Level 4 New Patient 08:58:06 CDT Ang Markham MD [facility] Procedures Code Procedure Name Date Entry Date Standard Description CPT-67180 Venipuncture Draw Fee 12:25:15 CDT CPT-67122 Knee 3V 16:48:40 CDT CPT-OV Office Visit 16:27:13 CDT CPT-OV Office Visit 16:21:19 CDT CPT-99471 Sono pelvis non OB uterus ovaries cervix 09:37:28 CDT
--- OUTSIDE RECORDS SUMMARY | 2018-12-22 01:53 | XMS REPORT | Clinical Summary ---
Author Author Admin, QIE Organization [employer] Address Unknown Phone Unavailable Allergies, Adverse Reactions, [...] I [juvenile type], not stated as uncontrolled penitentiary use 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 V58.67 Resolved Ang [...] unspecified hyperlipidemia Hematochezia 578.1 Active Jisteph Romero OBSTETRICIAN AND GYNAECOLOGIST Blood in stool Nausea 787.02 Active Jillina Franayal OBSTETRICIAN AND GYNAECOLOGIST Nausea alone Otitis externa, acute, left 380.12 [...] with hypoglycemia ICD-250.81 Inactive Ang Markham MD penitentiary use 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 ICD-V58.67 Inactive Ang Markham MD Medication List Medication Instructions Start Date Stop Date Generic Name NDC Status Provider Patient Instruction REGLAN 10 MG TAB 0.5 po TID 30min prior to meals METOCLOPRAMIDE HCL 83425518690 Active Ang Markham MD Active ZANTAC 150 MG TAB 1 po BID RANITIDINE HCL 84428651081 Active Ang Markham MD Active CORTISPORIN 3.5-47611-1 SOLN 4gtts in affected ear QID x 7 days [id number] 80195661122 Active Gabriel Hunt DO Active LEVEMIR FLEXTOUCH 100 UNIT/ML SC SOPN 35 units SC at 12-1pm, 35 units 12-1am INSULIN DETEMIR 51990231866 Active Ang Markham MD Active DOXEPIN HCL 10 MG CAP 1 tablet nightly for the itch DOXEPIN HCL 55164689007 Wiley Hunt DO Active COLACE 100 MG CAP 1 po daily DOCUSATE SODIUM 88082917324 Active Gabriel Hunt DO Active NOVOLOG FLEXPEN 100 UNIT/ML SOPN Take 20 units TID with meals, plus 2u/50 for blood sugars above 150. Ratio vs. Carbs INSULIN ASPART 48101963934 Active Gabriel Hunt DO Active BD PEN NEEDLE DINESH U/F 32G X 4 MM MISC 5 a day INSULIN PEN NEEDLE 30994011206 Active Maliheh Ziglari CRITICAL CARE CLINICAL NURSE SPECIALIST Active EMBRACE BLOOD GLUCOSE TEST STRP Test blood sugars 4 times daily and PRN 08/05 GLUCOSE BLOOD 54982339433 No Longer Active Maliheh Ziglari CRITICAL CARE CLINICAL NURSE SPECIALIST Active TRUEPLUS LANCETS 30G MISC 4 a day LANCETS 66624260188 Active Maliheh Ziglari CRITICAL CARE CLINICAL NURSE SPECIALIST Active TRUETEST TEST STRP check blood sugars 4x/day GLUCOSE BLOOD 72923695999 Active Maliheh Ziglari CRITICAL CARE CLINICAL NURSE SPECIALIST Active TRUERESULT BLOOD GLUCOSE W/DEVICE KIT check blood sugars 4x a day BLOOD GLUCOSE MONITORING SUPPL 56461204028 Active Maliheh Ziglari CRITICAL CARE CLINICAL NURSE SPECIALIST Active LISINOPRIL 5 MG TABS 1 po qd LISINOPRIL 71048554030 Active Ang Markham MD Active PAXIL 20 MG TAB 1 tablet by mouth daily PAROXETINE HCL 93612145721 Active Ang Markham MD Active GENTAMICIN SULFATE 0.1 % EXT OINT Apply to open sores once a day. GENTAMICIN SULFATE 06698163693 No Longer Active Ang Markham MD Active ZOLPIDEM TARTRATE 10 MG TABS 1 po qHS PRN Insomnia ZOLPIDEM TARTRATE 04039629902 Active Ang Markham MD Active BACTRIM DS 800-160 MG TAB 1 tab by mouth twice daily TRIMETHOPRIM-SULFAMETHOXAZOLE 24958080788 No Longer Active Gloria Dunbar OBSTETRICIAN AND GYNAECOLOGIST Active LEVEMIR FLEXPEN 100 UNIT/ML SOLN 40 units SC at bedtime INSULIN DETEMIR No Longer Active Susanbetty Arellano RMA Active INSUPEN ULTRAFIN 31G X 6 MM MISC Use with insulin qid. DX: E11.9 INSULIN PEN NEEDLE 24941796011 Active Ang Markham MD Active ZOLOFT 100 MG TAB 1 po qHS SERTRALINE HCL 64091551837 No Longer Active Ang Markham MD Active MELOXICAM 15 MG TABS 1 po qd PRN Knee Pain MELOXICAM 07293934373 No Longer Active Ang Markham MD Active LIPITOR 40 MG TAB 1 po qHS ATORVASTATIN CALCIUM 98747726122 Active Ang Markham MD Active METFORMIN HCL 1000 MG TABS 1 tablet by mouth twice daily METFORMIN HCL 43219277215 Active Ang Markham MD Active CYCLOBENZAPRINE HCL 5 MG TABS 1 po qHS PRN Muscle pain CYCLOBENZAPRINE HCL 61304862925 Active Ang Markham MD Active COLACE 100 MG CAP 1 po BID PRN Constipation DOCUSATE SODIUM 70565840868 No Longer Active Ang Markham MD Active HYDROXYZINE HCL 25 MG TAB 1 TID PRN nerves HYDROXYZINE HCL 79437655835 Active Ang Markham MD Active IBUPROFEN 800 MG TABS 1 tab every 8 hours as needed for pain 2013 IBUPROFEN 41064108547 No Longer Active Ang Markham MD Active NITROFURANTOIN MACROCRYSTAL 100 MG CAPS 1 capsule PO bid x 7 days NITROFURANTOIN MACROCRYSTAL 48229312086 No Longer Active Ang Markham MD Active DIFLUCAN 150 MG TAB 1 qODay x 2 doses FLUCONAZOLE 07652538272 No Longer Active Da Romero APRN Active CEFTIN 500 MG TAB 1 tablet by mouth twice daily for 7 days 07/24 CEFUROXIME AXETIL 17378652477 No Longer Active Anthony CARBONE Active ZOLOFT 50 MG TAB 1 tablet by mouth daily SERTRALINE HCL 43016625810 No Longer Active Anthony CARBONE Active ANUSOL-HC 2.5 % CREAM apply as needed HYDROCORTISONE (RECTAL) 78421663102 No Longer Active Anthony CARBONE Active COLACE 100 MG CAP 1 tab PO BID DOCUSATE SODIUM 70587965213 No Longer Active Anthony CARBONE Active TRINESSA (28) 0.18/0.215/0.25 MG-35 MCG TABS 1 po qd as directed NORGESTIM-ETH ESTRAD TRIPHASIC 52478327232 No Longer Active Anthony CARBONE Active [facility] MELATONIN 5 MG TABS 1-2 po qHS PRN Insomnia MELATONIN 96831160245 No Longer Active Anthony CARBONE Active ACYCLOVIR 400 MG TABS ACYCLOVIR 36848762249 No Longer Active Ang Markham MD Active HYDROXYZINE HCL 25 MG TABS 1 tab PO tid PRN itching HYDROXYZINE HCL 63556240070 No Longer Active Ang Markham MD Active DIFLUCAN 150 MG TAB 1 qODay x 2 doses FLUCONAZOLE 21464451393 No Longer Active Da Romero APRN Active ACYCLOVIR 400 MG TABS 1 pill twice daily ACYCLOVIR 54102193401 No Longer Active Jillina Nick OSHEA Active AZITHROMYCIN 250 MG TABS 2 po qd x 1 day, then 1 po qd x 4 days AZITHROMYCIN 51786843923 No Longer Active Eri Borges MD PhD Active AZITHROMYCIN 250 MG TABS take 2 po day 1 then take1 po days 2-5 AZITHROMYCIN 26318604349 No Longer Active Octaviano CARBONE Active ACYCLOVIR 400 MG TABS 1 po qd ACYCLOVIR 28928408473 No Longer Active Ang Markham MD Active PROZAC 40 MG CAPS 1 cap by mouth at bedtime FLUOXETINE HCL 79792499053 No Longer Active Ang Markham MD Active HYDROXYZINE HCL 25 MG TABS 1 tab PO tid PRN itching HYDROXYZINE HCL 25 MG TABS 138465 HYDROXYZINE HCL Inactive [facility] MELATONIN 5 MG TABS 1-2 po qHS PRN Insomnia [facility] MELATONIN 5 MG TABS 731429 MELATONIN Inactive TRINESSA (28) 0.18/0.215/0.25 MG-35 MCG TABS 1 po qd as directed TRINESSA (28) 0.18/0.215/0.25 MG-35 MCG TABS 138481 NORGESTIM-ETH ESTRAD TRIPHASIC Inactive COLACE 100 MG CAP 1 tab PO BID COLACE 100 MG CAP 7867122 DOCUSATE SODIUM Inactive ANUSOL-HC 2.5 % CREAM apply as needed ANUSOL-HC 2.5 % CREAM 816880 HYDROCORTISONE (RECTAL) Inactive ZOLOFT 50 MG TAB 1 tablet by mouth daily ZOLOFT 50 MG TAB 675571 SERTRALINE HCL Inactive CEFTIN 500 MG TAB 1 tablet by mouth twice daily for 7 days 07/24 CEFTIN 500 MG TAB 910474 CEFUROXIME AXETIL Inactive NITROFURANTOIN MACROCRYSTAL 100 MG CAPS 1 capsule PO bid x 7 days NITROFURANTOIN MACROCRYSTAL 100 MG CAPS 1088543 NITROFURANTOIN MACROCRYSTAL Inactive IBUPROFEN 800 MG TABS 1 tab every 8 hours as needed for pain 2013 IBUPROFEN 800 MG TABS 021367 IBUPROFEN Inactive COLACE 100 MG CAP 1 po BID PRN Constipation COLACE 100 MG CAP 6768427 DOCUSATE SODIUM Inactive MELOXICAM 15 MG TABS 1 po qd PRN Knee Pain MELOXICAM 15 MG TABS 681434 MELOXICAM Inactive LEVEMIR FLEXPEN 100 UNIT/ML SOLN 40 units SC at bedtime LEVEMIR FLEXPEN 100 UNIT/ML SOLN INSULIN DETEMIR Inactive GENTAMICIN SULFATE 0.1 % EXT OINT Apply to open sores once a day. GENTAMICIN SULFATE 0.1 % EXT OINT 741688 GENTAMICIN SULFATE Inactive EMBRACE BLOOD GLUCOSE TEST STRP Test blood sugars 4 times daily and PRN 08/05 EMBRACE BLOOD GLUCOSE TEST STRP GLUCOSE BLOOD Inactive ACYCLOVIR 400 MG TABS 1 po qd ACYCLOVIR 400 MG TABS 19720928 ACYCLOVIR Inactive AZITHROMYCIN 250 MG TABS take 2 po day 1 then take1 po days 2-5 AZITHROMYCIN 250 MG TABS 1782912 AZITHROMYCIN Inactive AZITHROMYCIN 250 MG TABS 2 po qd x 1 day, then 1 po qd x 4 days AZITHROMYCIN 250 MG TABS 7681959 AZITHROMYCIN Inactive ACYCLOVIR 400 MG TABS 1 pill twice daily ACYCLOVIR 400 MG TABS 19720928 ACYCLOVIR Inactive DIFLUCAN 150 MG TAB 1 qODay x 2 doses DIFLUCAN 150 MG TAB 225115 FLUCONAZOLE Inactive ACYCLOVIR 400 MG TABS ACYCLOVIR 400 MG TABS 19720928 ACYCLOVIR Inactive DIFLUCAN 150 MG TAB 1 qODay x 2 doses DIFLUCAN 150 MG TAB 176548 FLUCONAZOLE Inactive BACTRIM DS 800-160 MG TAB 1 tab by mouth twice daily BACTRIM DS 800-160 MG TAB 637554 TRIMETHOPRIM-SULFAMETHOXAZOLE Inactive Advance Directives Directive Description Start [...] HGBA1C - Chemistry sodium, serum 134 mmol/L 293-758 6930/03/16 carbon dioxide, venous blood 34.5 mmol/L 21.0-32.0 potassium, serum 4.6 mmol/L 3.5-5.2 chloride, serum 93 mmol/L 98-107 blood glucose 408 mg/dL 65-110 urea nitrogen, blood 3 mg/dL 7-18 creatinine, serum 0.58 mg/dL 0.55-1.30 alanine aminotransferase (SGPT), serum 11 U/L 12-78 aspartate aminotransferase (SGOT), serum 8 U/L 15-37 calcium, serum 9.2 mg/dL 8.5-10.1 bilirubin, serum, total 0.30 mg/dL 0.00-1.00 cholesterol, serum 195 mg/dL 691-540 9718/03/16 triglyceride, serum, fasting 138 mg/dL 30-200 HDL [...] Panel - Chemistry sodium, serum 133 mmol/L 111-025 7482/06/03 carbon dioxide, venous blood 33.4 mmol/L 21.0-32.0 [...] pH, urine, semiquantitative 5.5 5.0-8.5 Lab Report: [facility] - Chemistry human chorionic gonadotropin, urine, qualitative [...] Yes Encounters Code Encounter Date Provider Facility CPT-28148 Level 3 Est. Patient 17:02:56 CDT Gabriel Hunt [facility] CPT-68496 Level 3 Est. Patient 14:46:22 CDT Da Romero [facility] CPT-55484 Level 4 Est. Patient 13:55:20 CDT Ang Markham MD [facility] CPT-73904 Level 4 Est. Patient 16:10:09 CDT Celestine Huerta [facility] CPT-04253 Level 3 Est. Patient 13:51:24 CDT Ang Markham MD [facility] CPT-12969 Level 3 Est. Patient 18:42:15 CDT Gabriel Hunt [facility] CPT-35424 Level 5 Est. Patient 14:40:14 CDT Celestine Huerta [facility] CPT-96419 Level 4 Est. Patient 14:36:17 CDT Ang Markham MD [facility] CPT-63771 Level 3 Est. Patient 11:13:47 BLUEPRINT TRACER Ang Markham MD [facility] CPT-91883 Level 3 Est. Patient 11:59:20 BLUEPRINT TRACER Gloria Dunbar [facility] CPT-17269 Level 3 Est. Patient 17:32:37 BLUEPRINT TRACER Gloria Dunbar [facility] CPT-06937 Level 4 Est. Patient 16:39:07 CDT [facility] CPT-38202 Level 3 Est. Patient 16:35:50 CDT Ang Makrham MD [facility] CPT-06373 Level 4 Est. Patient 13:53:06 BLUEPRINT TRACER Ang Markham MD [facility] CPT-73558 Level 3 Est. Patient 08:58:08 BLUEPRINT TRACER Ang Markham MD [facility] CPT-15954 Level 3 Est. Patient 18:48:29 CDT Anthony Whitfield [facility] CPT-96200 Level 3 Est. Patient 12:16:59 CDT Gabriel Hunt DO [facility] CPT-51712 Level 3 Est. Patient 18:57:15 CDT Anthony [facility]field [facility] CPT-26579 Level 3 Est. Patient 13:59:22 BLUEPRINT TRACER Ang Markham MD [facility] CPT-40033 Level 4 Est. Patient 10:36:08 BLUEPRINT TRACER Ang Markham MD [facility] CPT-81208 Level 3 Est. Patient 16:27:02 CDT Eri Borges MD PhD [facility] CPT-53874 Level 3 Est. Patient 10:36:43 CDT Kellyfaviola Roselyn [facility] CPT-46749 Level 4 New Patient 08:58:06 CDT Ang Markham MD [facility] Procedures Code Procedure Name Date Entry Date Standard Description CPT-39424 Abd compl w upright - XRAY USE ONLY 14:09:39 CDT 02/28 CPT-10177 Venipuncture Draw Fee 12:25:15 CDT CPT-83446 Knee 3V 16:48:40 CDT CPT-OV Office Visit 16:27:13 CDT CPT-OV Office Visit 16:21:19 CDT CPT-20749 Sono pelvis non OB uterus ovaries cervix 09:37:28 CDT
--- OUTSIDE RECORDS SUMMARY | 2018-12-22 01:54 | XMS REPORT | Clinical Summary ---
Author Author Admin, QIE Organization [employer] Address Unknown Phone Unavailable Allergies, Adverse Reactions, [...] unspecified Anal or rectal pain 569.42 Resolved nAg Markham MD Anal or rectal pain CANDIDAL VAGINITIS 112.1 Resolved Ang Markham MD Candidiasis of vulva and vagina Insomnia 780.52 Active Ang Mrakham MD Insomnia, unspecified Joint crepitus, knee 719.66 [...] Ang Markham MD Constipation ICD-564.00 Inactive Ang Mrakham MD Anal or rectal pain ICD-569.42 Inactive [...] 5 MG TABS 1 po qd LISINOPRIL 15733002884 Active Ang Markham MD Active NOVOLOG FLEXPEN 100 UNIT/ML SOPN Take 20 units TID with meals INSULIN ASPART 33474237440 Active Ang Markham MD Active LEVEMIR FLEXTOUCH 100 UNIT/ML SC SOPN 60 units SC nightly INSULIN DETEMIR 69020617172 Active Codey Hdez MD Active COLACE 100 MG CAP 1 po BID PRN Constipation DOCUSATE SODIUM 21242782376 Active Ang Markham MD Active PAXIL 20 MG TAB 1 tablet by mouth daily PAROXETINE HCL 04671883714 Active Ang Markham MD Active GENTAMICIN SULFATE 0.1 % EXT OINT Apply to open sores once a day. GENTAMICIN SULFATE 59972151289 No Longer Active Ang Markham MD Active ZOLPIDEM TARTRATE 10 MG TABS 1 po qHS PRN Insomnia ZOLPIDEM TARTRATE 66164437849 Active Ang Markham MD Active BACTRIM DS 800-160 MG TAB 1 tab by mouth twice daily TRIMETHOPRIM-SULFAMETHOXAZOLE 58228430880 No Longer Active Gloriajuliette Dunbar FRONT END DRIVER Active LEVEMIR FLEXPEN 100 UNIT/ML SOLN 40 units SC at bedtime INSULIN DETEMIR No Longer Active Susankalen Arellano RMA Active INSUPEN ULTRAFIN 31G X 6 MM MISC Use with insulin qid. DX: E11.9 INSULIN PEN NEEDLE 24078580194 Active Ang Markham MD Active ZOLOFT 100 MG TAB 1 po qHS SERTRALINE HCL 83409160825 No Longer Active Ang Markham MD Active MELOXICAM 15 MG TABS 1 po qd PRN Knee Pain MELOXICAM 66945751244 No Longer Active Ang Markham MD Active LIPITOR 40 MG TAB 1 po qHS ATORVASTATIN CALCIUM 58677126058 Active Ang Markham MD Active METFORMIN HCL 1000 MG TABS 1 tablet by mouth twice daily METFORMIN HCL 77365404743 Active Ang Markham MD Active CYCLOBENZAPRINE HCL 5 MG TABS 1 po qHS PRN Muscle pain CYCLOBENZAPRINE HCL 95957795695 Active Ang Markham MD Active COLACE 100 MG CAP 1 po BID PRN Constipation DOCUSATE SODIUM 44504433137 No Longer Active Ang Markham MD Active HYDROXYZINE HCL 25 MG TAB 1 TID PRN nerves HYDROXYZINE HCL 29817413905 Active Ang Markham MD Active IBUPROFEN 800 MG TABS 1 tab every 8 hours as needed for pain 2013 IBUPROFEN 74699129498 No Longer Active Ang Markham MD Active NITROFURANTOIN MACROCRYSTAL 100 MG CAPS 1 capsule PO bid x 7 days NITROFURANTOIN MACROCRYSTAL 13258121242 No Longer Active Ang Markham MD Active DIFLUCAN 150 MG TAB 1 qODay x 2 doses FLUCONAZOLE 32132907540 No Longer Active Da Romero APRN Active CEFTIN 500 MG TAB 1 tablet by mouth twice daily for 7 days 07/24 CEFUROXIME AXETIL 09901226778 No Longer Active Anthony CARBONE Active ZOLOFT 50 MG TAB 1 tablet by mouth daily SERTRALINE HCL 34121291202 No Longer Active Anthony CARBONE Active ANUSOL-HC 2.5 % CREAM apply as needed HYDROCORTISONE (RECTAL) 59697698870 No Longer Active Anthony CARBONE Active COLACE 100 MG CAP 1 tab PO BID DOCUSATE SODIUM 02151589400 No Longer Active Anthony CARBONE Active TRINESSA (28) 0.18/0.215/0.25 MG-35 MCG TABS 1 po qd as directed NORGESTIM-ETH ESTRAD TRIPHASIC 04431187610 No Longer Active Anthony CARBONE Active [facility] MELATONIN 5 MG TABS 1-2 po qHS PRN Insomnia MELATONIN 53682540271 No Longer Active Anthony CARBONE Active ACYCLOVIR 400 MG TABS ACYCLOVIR 15332764429 No Longer Active Ang Markham MD Active EMBRACE BLOOD GLUCOSE TEST STRP Test blood sugars 4 times daily and PRN 08/05 GLUCOSE BLOOD 30082343916 Active Ang Markham MD Active HYDROXYZINE HCL 25 MG TABS 1 tab PO tid PRN itching HYDROXYZINE HCL 23054851286 No Longer Active Ang Markham MD Active DIFLUCAN 150 MG TAB 1 qODay x 2 doses FLUCONAZOLE 75358731571 No Longer Active Jillina Frazell FRONT END DRIVER Active ACYCLOVIR 400 MG TABS 1 pill twice daily ACYCLOVIR 22413005408 No Longer Active Da Romero APRN Active AZITHROMYCIN 250 MG TABS 2 po qd x 1 day, then 1 po qd x 4 days AZITHROMYCIN 83479353074 No Longer Active Eri Borges MD PhD Active AZITHROMYCIN 250 MG TABS take 2 po day 1 then take1 po days 2-5 AZITHROMYCIN 51043212096 No Longer Active Octaviano Dempsey PA Active ACYCLOVIR 400 MG TABS 1 po qd ACYCLOVIR 89138329109 No Longer Active Ang Markham MD Active PROZAC 40 MG CAPS 1 cap by mouth at bedtime FLUOXETINE HCL 20519108345 No Longer Active Ang Markham MD Active HYDROXYZINE HCL 25 MG TABS 1 tab PO tid PRN itching HYDROXYZINE HCL 25 MG TABS 783976 HYDROXYZINE HCL Inactive [facility] MELATONIN 5 MG TABS 1-2 po qHS PRN Insomnia [facility] MELATONIN 5 MG TABS 742468 MELATONIN Inactive TRINESSA (28) 0.18/0.215/0.25 MG-35 MCG TABS 1 po qd as directed TRINESSA (28) 0.18/0.215/0.25 MG-35 MCG TABS 949425 NORGESTIM-ETH ESTRAD TRIPHASIC Inactive COLACE 100 MG CAP 1 tab PO BID COLACE 100 MG CAP 9063184 DOCUSATE SODIUM Inactive ANUSOL-HC 2.5 % CREAM apply as needed ANUSOL-HC 2.5 % CREAM 725327 HYDROCORTISONE (RECTAL) Inactive ZOLOFT 50 MG TAB 1 tablet by mouth daily ZOLOFT 50 MG TAB 499670 SERTRALINE HCL Inactive CEFTIN 500 MG TAB 1 tablet by mouth twice daily for 7 days 07/24 CEFTIN 500 MG TAB 419735 CEFUROXIME AXETIL Inactive NITROFURANTOIN MACROCRYSTAL 100 MG CAPS 1 capsule PO bid x 7 days NITROFURANTOIN MACROCRYSTAL 100 MG CAPS 0566066 NITROFURANTOIN MACROCRYSTAL Inactive IBUPROFEN 800 MG TABS 1 tab every 8 hours as needed for pain 2013 IBUPROFEN 800 MG TABS 329436 IBUPROFEN Inactive COLACE 100 MG CAP 1 po BID PRN Constipation COLACE 100 MG CAP 8928758 DOCUSATE SODIUM Inactive MELOXICAM 15 MG TABS 1 po qd PRN Knee Pain MELOXICAM 15 MG TABS 833833 MELOXICAM Inactive LEVEMIR FLEXPEN 100 UNIT/ML SOLN 40 units SC at bedtime LEVEMIR FLEXPEN 100 UNIT/ML SOLN INSULIN DETEMIR Inactive GENTAMICIN SULFATE 0.1 % EXT OINT Apply to open sores once a day. GENTAMICIN SULFATE 0.1 % EXT OINT 386555 GENTAMICIN SULFATE Inactive ACYCLOVIR 400 MG TABS 1 po qd ACYCLOVIR 400 MG TABS 19720928 ACYCLOVIR Inactive AZITHROMYCIN 250 MG TABS take 2 po day 1 then take1 po days 2-5 AZITHROMYCIN 250 MG TABS 4991335 AZITHROMYCIN Inactive AZITHROMYCIN 250 MG TABS 2 po qd x 1 day, then 1 po qd x 4 days AZITHROMYCIN 250 MG TABS 4151739 AZITHROMYCIN Inactive ACYCLOVIR 400 MG TABS 1 pill twice daily ACYCLOVIR 400 MG TABS 19720928 ACYCLOVIR Inactive DIFLUCAN 150 MG TAB 1 qODay x 2 doses DIFLUCAN 150 MG TAB 155551 FLUCONAZOLE Inactive ACYCLOVIR 400 MG TABS ACYCLOVIR 400 MG TABS 393525 ACYCLOVIR Inactive DIFLUCAN 150 MG TAB 1 qODay x 2 doses DIFLUCAN 150 MG TAB 19760606 FLUCONAZOLE Inactive BACTRIM DS 800-160 MG TAB 1 tab by mouth twice daily BACTRIM DS 800-160 MG TAB 010892 TRIMETHOPRIM-SULFAMETHOXAZOLE Inactive Advance Directives Directive Description Start [...] HGBA1C - Chemistry sodium, serum 134 mmol/L 054-834 1824/03/16 carbon dioxide, venous blood 34.5 mmol/L 21.0-32.0 potassium, serum 4.6 mmol/L 3.5-5.2 chloride, serum 93 mmol/L 98-107 blood glucose 408 mg/dL 65-110 urea nitrogen, blood 3 mg/dL 7-18 creatinine, serum 0.58 mg/dL 0.55-1.30 alanine aminotransferase (SGPT), serum 11 U/L 12-78 aspartate aminotransferase (SGOT), serum 8 U/L 15-37 calcium, serum 9.2 mg/dL 8.5-10.1 bilirubin, serum, total 0.30 mg/dL 0.00-1.00 cholesterol, serum 195 mg/dL 069-061 8695/03/16 triglyceride, serum, fasting 138 mg/dL 30-200 HDL [...] 0-19 Encounters Code Encounter Date Provider Facility CPT-17878 Level 4 Est. Patient 14:36:17 CDT Ang Markham MD [facility] CPT-07124 Level 3 Est. Patient 11:13:47 GENETICIST Ang Markham MD [facility] CPT-58711 Level 3 Est. Patient 11:59:20 GENETICIST Gloria Dunbar [facility] CPT-84635 Level 3 Est. Patient 17:32:37 GENETICIST Gloria Dunbar [facility] CPT-91801 Level 4 Est. Patient 16:39:07 CDT Ang Markham MD [facility] CPT-90554 Level 3 Est. Patient 16:35:50 CDT Ang Markham MD [facility] CPT-70567 Level 4 Est. Patient 13:53:06 GENETICIST Ang Markham MD [facility] CPT-17461 Level 3 Est. Patient 08:58:08 GENETICIST Ang Markham MD [facility] CPT-38458 Level 3 Est. Patient 18:48:29 CDT Anthony Whitfield [facility] CPT-01568 Level 3 Est. Patient 12:16:59 CDT Gabriel Hunt DO [facility] CPT-20766 Level 3 Est. Patient 18:57:15 CDT Anthony Whitfield [facility] CPT-91845 Level 3 Est. Patient 13:59:22 GENETICIST Ang Markham MD [facility] CPT-20337 Level 4 Est. Patient 10:36:08 GENETICIST Ang Markham MD [facility] CPT-06850 Level 3 Est. Patient 16:27:02 CDT Eri Borges MD [facility] CPT-38014 Level 3 Est. Patient 10:36:43 CDT Octaviano Roselyn [facility] CPT-67708 Level 4 New Patient 08:58:06 CDT Ang Markham MD [facility] Procedures Code Procedure Name Date Entry Date Standard Description CPT-09564 Venipuncture Draw Fee 12:25:15 CDT CPT-01923 Knee 3V 16:48:40 CDT CPT-OV Office Visit 16:27:13 CDT CPT-OV Office Visit 16:21:19 CDT CPT-09256 Sono pelvis non OB uterus ovaries cervix 09:37:28 CDT
--- OUTSIDE RECORDS SUMMARY | 2018-12-22 01:54 | XMS REPORT | Clinical Summary ---
Author Author Admin, E Organization [facility] Address Unknown Phone Unavailable Allergies, Adverse [...] Markham MD Acute cystitis UTI 599.0 Resolved nAg Markham MD Urinary tract infection, site not [...] Resolved Ang Markham MD Acute swimmers' ear skilled nursing use 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 V58.67 Active Celestine PEARCE Long-term (current) use of insulin Low back pain, acute 724.2 Active Shreya Velazquez MOTION GRAPHICS DESIGNER Lumbago Pharyngitis, acute / sore throat 462 [...] MG CAP 1 po daily DOCUSATE SODIUM 92997063192 No Longer Active Jillina Frazell MOTION GRAPHICS DESIGNER Active CARAFATE 1 GM/10ML ORAL SUSP 5 mg four times daily SUCRALFATE 80182014662 Active Jillina Frazell MOTION GRAPHICS DESIGNER Active ZANTAC 150 MG TAB 1 po BID RANITIDINE HCL 45514084768 No Longer Active Jillina Frazell MOTION GRAPHICS DESIGNER Active HYDROXYZINE HCL 25 MG TAB 1 TID PRN nerves HYDROXYZINE HCL 66583606333 No Longer Active Jillina Frazell MOTION GRAPHICS DESIGNER Active CLINDAMYCIN HCL 300 MG ORAL CAPS 1 four times a day CLINDAMYCIN HCL 93071727993 No Longer Active Jillina Frazell MOTION GRAPHICS DESIGNER Active TYLENOL WITH CODEINE #3 300-30 MG TABS 1 every four hours as needed for pain ACETAMINOPHEN-CODEINE 76607679505 Active Conner Hills MD Active LEVAQUIN 500 MG TABS 1 daily for infection LEVOFLOXACIN 96074598930 No Longer Active Conner Hills MD Active DOXEPIN HCL 10 MG CAP 1 tablet nightly for the itch DOXEPIN HCL 84174423778 No Longer Active Conner Hills MD Active TRESIBA FLEXTOUCH 200 UNIT/ML SC SOPN Take 70 units daily at mid-night to 1 am. INSULIN DEGLUDEC 41982983932 No Longer Active Conner Hills MD Active METFORMIN HCL 1000 MG TABS 1 tablet by mouth twice daily METFORMIN HCL 82842547987 No Longer Active Conner Hills MD Active LIPITOR 40 MG TAB 1 po qHS ATORVASTATIN CALCIUM 95351469998 No Longer Active Conner Hills MD Active GEMFIBROZIL 600 MG TABS 1 po BID GEMFIBROZIL 44997934023 No Longer Active Conner Hills MD Active CORTISPORIN 3.5-09646-7 SOLN 4gtts in affected ear QID x 7 days [id number] 33829709771 No Longer Active Ang Markham MD Active LEVEMIR FLEXTOUCH 100 UNIT/ML SC SOPN 35 units SC at 12-1pm, 35 units 12-1am INSULIN DETEMIR 77128482118 No Longer Active Celestine PEARCE Active REGLAN 10 MG TAB 0.5 po TID 30min prior to meals METOCLOPRAMIDE HCL 92664870487 Active Ang Markham MD Active NOVOLOG FLEXPEN 100 UNIT/ML SOPN Take 20 units TID with meals, plus 2u/50 for blood sugars above 150. Ratio vs. Carbs INSULIN ASPART 39823846567 Active Gabriel Hunt DO Active BD PEN NEEDLE DINESH U/F 32G X 4 MM MISC 5 a day INSULIN PEN NEEDLE 89114818048 Active Malstephneeh Ziglari POWDER CORE TESTER Active EMBRACE BLOOD GLUCOSE TEST STRP Test blood sugars 4 times daily and PRN 08/05 GLUCOSE BLOOD 98013586184 No Longer Active Malstepheneh Rigoglari POWDER CORE TESTER Active TRUEPLUS LANCETS 30G MISC 4 a day LANCETS 22779021993 Active Maliheh Ziglari POWDER CORE TESTER Active TRUETEST TEST STRP check blood sugars 4x/day GLUCOSE BLOOD 79552751035 Active Maliheh Ziglari POWDER CORE TESTER Active TRUERESULT BLOOD GLUCOSE W/DEVICE KIT check blood sugars 4x a day BLOOD GLUCOSE MONITORING SUPPL 72782309594 Active Malstepheneh Ziglari POWDER CORE TESTER Active LISINOPRIL 5 MG TABS 1 po qd LISINOPRIL 81264169069 Active Ang Markham MD Active PAXIL 20 MG TAB 1 tablet by mouth daily PAROXETINE HCL 62107036183 Active Ang Markham MD Active GENTAMICIN SULFATE 0.1 % EXT OINT Apply to open sores once a day. GENTAMICIN SULFATE 97099903380 No Longer Active Ang Markham MD Active ZOLPIDEM TARTRATE 10 MG TABS 1 po qHS PRN Insomnia ZOLPIDEM TARTRATE 08157765806 Active Ang Markham MD Active BACTRIM DS 800-160 MG TAB 1 tab by mouth twice daily TRIMETHOPRIM-SULFAMETHOXAZOLE 85689155394 No Longer Active Gloria Yokum MOTION GRAPHICS DESIGNER Active LEVEMIR FLEXPEN 100 UNIT/ML SOLN 40 units SC at bedtime INSULIN DETEMIR No Longer Active Susan Adan RMA Active INSUPEN ULTRAFIN 31G X 6 MM MISC Use with insulin qid. DX: E11.9 INSULIN PEN NEEDLE 40246692447 Active Ang Markham MD Active ZOLOFT 100 MG TAB 1 po qHS SERTRALINE HCL 55227235101 No Longer Active Ang Markham MD Active MELOXICAM 15 MG TABS 1 po qd PRN Knee Pain MELOXICAM 06775850536 No Longer Active Ang Markham MD Active CYCLOBENZAPRINE HCL 5 MG TABS 1 po qHS PRN Muscle pain CYCLOBENZAPRINE HCL 35916162856 Active Ang Markham MD Active COLACE 100 MG CAP 1 po BID PRN Constipation DOCUSATE SODIUM 06993643139 No Longer Active Ang Markham MD Active IBUPROFEN 800 MG TABS 1 tab every 8 hours as needed for pain 2013 IBUPROFEN 76059623552 No Longer Active Ang Markham MD Active NITROFURANTOIN MACROCRYSTAL 100 MG CAPS 1 capsule PO bid x 7 days NITROFURANTOIN MACROCRYSTAL 00347910897 No Longer Active Ang Markham MD Active DIFLUCAN 150 MG TAB 1 qODay x 2 doses FLUCONAZOLE 20835004345 No Longer Active Da Romero APRN Active CEFTIN 500 MG TAB 1 tablet by mouth twice daily for 7 days 07/24 CEFUROXIME AXETIL 16112062357 No Longer Active Anthony CARBONE Active ZOLOFT 50 MG TAB 1 tablet by mouth daily SERTRALINE HCL 04556200148 No Longer Active Anthony CARBONE Active ANUSOL-HC 2.5 % CREAM apply as needed HYDROCORTISONE (RECTAL) 01303880075 No Longer Active Anthony CARBONE Active COLACE 100 MG CAP 1 tab PO BID DOCUSATE SODIUM 01503271601 No Longer Active Anthony CARBONE Active TRINESSA (28) 0.18/0.215/0.25 MG-35 MCG TABS 1 po qd as directed NORGESTIM-ETH ESTRAD TRIPHASIC 22356198483 No Longer Active Anthony CARBONE Active [facility] MELATONIN 5 MG TABS 1-2 po qHS PRN Insomnia MELATONIN 56220270235 No Longer Active Anthony CARBONE Active ACYCLOVIR 400 MG TABS ACYCLOVIR 05203600766 No Longer Active Ang Markham MD Active HYDROXYZINE HCL 25 MG TABS 1 tab PO tid PRN itching HYDROXYZINE HCL 62603391082 No Longer Active Ang Markham MD Active DIFLUCAN 150 MG TAB 1 qODay x 2 doses FLUCONAZOLE 99485383465 No Longer Active Da Romero APRN Active ACYCLOVIR 400 MG TABS 1 pill twice daily ACYCLOVIR 64601683071 No Longer Active Josephllpiedad Romero APRN Active AZITHROMYCIN 250 MG TABS 2 po qd x 1 day, then 1 po qd x 4 days AZITHROMYCIN 57089363271 No Longer Active Eri Borges MD PhD Active AZITHROMYCIN 250 MG TABS take 2 po day 1 then take1 po days 2-5 AZITHROMYCIN 43110891609 No Longer Active Octaviano CARBONE Active ACYCLOVIR 400 MG TABS 1 po qd ACYCLOVIR 83300623806 No Longer Active Ang Markham MD Active PROZAC 40 MG CAPS 1 cap by mouth at bedtime FLUOXETINE HCL 59439331604 No Longer Active Ang Markham MD Active HYDROXYZINE HCL 25 MG TABS 1 tab PO tid PRN itching HYDROXYZINE HCL 25 MG TABS 997095 HYDROXYZINE HCL Inactive [facility] MELATONIN 5 MG TABS 1-2 po qHS PRN Insomnia [facility] MELATONIN 5 MG TABS 398632 MELATONIN Inactive TRINESSA (28) 0.18/0.215/0.25 MG-35 MCG TABS 1 po qd as directed TRINESSA (28) 0.18/0.215/0.25 MG-35 MCG TABS 553350 NORGESTIM-ETH ESTRAD TRIPHASIC Inactive COLACE 100 MG CAP 1 tab PO BID COLACE 100 MG CAP 7634839 DOCUSATE SODIUM Inactive ANUSOL-HC 2.5 % CREAM apply as needed ANUSOL-HC 2.5 % CREAM 443643 HYDROCORTISONE (RECTAL) Inactive ZOLOFT 50 MG TAB 1 tablet by mouth daily ZOLOFT 50 MG TAB 435656 SERTRALINE HCL Inactive CEFTIN 500 MG TAB 1 tablet by mouth twice daily for 7 days 07/24 CEFTIN 500 MG TAB 700671 CEFUROXIME AXETIL Inactive NITROFURANTOIN MACROCRYSTAL 100 MG CAPS 1 capsule PO bid x 7 days NITROFURANTOIN MACROCRYSTAL 100 MG CAPS 8936713 NITROFURANTOIN MACROCRYSTAL Inactive IBUPROFEN 800 MG TABS 1 tab every 8 hours as needed for pain 2013 IBUPROFEN 800 MG TABS 894353 IBUPROFEN Inactive COLACE 100 MG CAP 1 po BID PRN Constipation COLACE 100 MG CAP 4475375 DOCUSATE SODIUM Inactive MELOXICAM 15 MG TABS 1 po qd PRN Knee Pain MELOXICAM 15 MG TABS 666691 MELOXICAM Inactive LEVEMIR FLEXPEN 100 UNIT/ML SOLN 40 units SC at bedtime LEVEMIR FLEXPEN 100 UNIT/ML SOLN INSULIN DETEMIR Inactive GENTAMICIN SULFATE 0.1 % EXT OINT Apply to open sores once a day. GENTAMICIN SULFATE 0.1 % EXT OINT 933087 GENTAMICIN SULFATE Inactive EMBRACE BLOOD GLUCOSE TEST STRP Test blood sugars 4 times daily and PRN 08/05 EMBRACE BLOOD GLUCOSE TEST STRP GLUCOSE BLOOD Inactive LEVEMIR FLEXTOUCH 100 UNIT/ML SC SOPN 35 units SC at 12-1pm, 35 units 12-1am LEVEMIR FLEXTOUCH 100 UNIT/ML SC SOPN INSULIN DETEMIR Inactive CORTISPORIN 3.5-87012-3 SOLN 4gtts in affected ear QID x 7 days CORTISPORIN 3.5-18687-4 SOLN 094707 [id number] Inactive GEMFIBROZIL 600 MG TABS 1 po BID GEMFIBROZIL 600 MG TABS 524558 GEMFIBROZIL Inactive LIPITOR 40 MG TAB 1 po qHS LIPITOR 40 MG TAB 071198 ATORVASTATIN CALCIUM Inactive METFORMIN HCL 1000 MG TABS 1 tablet by mouth twice daily METFORMIN HCL 1000 MG TABS 081911 METFORMIN HCL Inactive TRESIBA FLEXTOUCH 200 UNIT/ML SC SOPN Take 70 units daily at mid-night to 1 am. TRESIBA FLEXTOUCH 200 UNIT/ML SC SOPN INSULIN DEGLUDEC Inactive DOXEPIN HCL 10 MG CAP 1 tablet nightly for the itch DOXEPIN HCL 10 MG CAP 0646095 DOXEPIN HCL Inactive LEVAQUIN 500 MG TABS 1 daily for infection LEVAQUIN 500 MG TABS 493810 LEVOFLOXACIN Inactive CLINDAMYCIN HCL 300 MG ORAL CAPS 1 four times a day CLINDAMYCIN HCL 300 MG ORAL CAPS 765199 CLINDAMYCIN HCL Inactive HYDROXYZINE HCL 25 MG TAB 1 TID PRN nerves HYDROXYZINE HCL 25 MG TAB 988616 HYDROXYZINE HCL Inactive ZANTAC 150 MG TAB 1 po BID ZANTAC 150 MG TAB 488510 RANITIDINE HCL Inactive COLACE 100 MG CAP 1 po daily COLACE 100 MG CAP 2299346 DOCUSATE SODIUM Inactive ACYCLOVIR 400 MG TABS 1 po qd ACYCLOVIR 400 MG TABS 19720928 ACYCLOVIR Inactive AZITHROMYCIN 250 MG TABS take 2 po day 1 then take1 po days 2-5 AZITHROMYCIN 250 MG TABS 9543716 AZITHROMYCIN Inactive AZITHROMYCIN 250 MG TABS 2 po qd x 1 day, then 1 po qd x 4 days AZITHROMYCIN 250 MG TABS 0498235 AZITHROMYCIN Inactive ACYCLOVIR 400 MG TABS 1 pill twice daily ACYCLOVIR 400 MG TABS 19720928 ACYCLOVIR Inactive DIFLUCAN 150 MG TAB 1 qODay x 2 doses DIFLUCAN 150 MG TAB 19760606 FLUCONAZOLE Inactive ACYCLOVIR 400 MG TABS ACYCLOVIR 400 MG TABS 19720928 ACYCLOVIR Inactive DIFLUCAN 150 MG TAB 1 qODay x 2 doses DIFLUCAN 150 MG TAB 481215 FLUCONAZOLE Inactive BACTRIM DS 800-160 MG TAB [...] 0.30 mg/dL 0.00-1.00 cholesterol, serum 221 mg/dL 255-018 7412/10/12 triglyceride, serum, fasting 590 mg/dL 30-200 HDL cholesterol, serum 45 mg/dL 32-96 LDL cholesterol, serum 58 mg/dL 0-130 blood glucose 547 mg/dL 65-110 chloride, serum 91 mmol/L 98-107 potassium, serum 3.9 mmol/L 3.5-5.2 carbon dioxide, venous blood 28.1 mmol/L 21.0-32.0 sodium, serum 130 mmol/L 136-145 Encounters Code Encounter Date Provider Facility CPT-84868 Level 3 Est. Patient 14:52:33 CDT Da Romero [facility] CPT-01829 Level 3 Est. Patient 10:22:30 CDT Conner Hills MD [facility] CPT-90284 Level 3 Est. Patient 15:02:19 CDT Shreya Velazquez [facility] CPT-75772 Level 3 Est. Patient 13:22:25 CDT Gabriel Hunt [facility] CPT-61513 Level 4 Est. Patient 16:02:22 CDT Ang Markham MD [facility] CPT-98342 Level 3 Est. Patient 16:21:23 CDT Celestine Huerta [facility] CPT-89035 Level 3 Est. Patient 17:02:56 CDT Gabriel Hunt [facility] CPT-97060 Level 3 Est. Patient 14:46:22 CDT Da Romero [facility] CPT-68844 Level 4 Est. Patient 13:55:20 CDT Ang Markham MD [facility] CPT-90255 Level 4 Est. Patient 16:10:09 CDT Celestine Huerta [facility] named [facility] CPT-41637 Level 3 Est. Patient 13:51:24 CDT Ang Markham MD [facility] CPT-76192 Level 3 Est. Patient 18:42:15 CDT Gabriel Hunt [facility] CPT-67232 Level 5 Est. Patient 14:40:14 CDT Celestine Huerta RAMSES [facility] CPT-57279 Level 4 Est. Patient 14:36:17 CDT Ang Markham MD [facility] CPT-96909 Level 3 Est. Patient 11:13:47 SENIOR ARCHITECT/DESIGN MANAGER Ang Markham MD [facility] CPT-59575 Level 3 Est. Patient 11:59:20 SENIOR ARCHITECT/DESIGN MANAGER Gloria Dunbar [facility] CPT-67346 Level 3 Est. Patient 17:32:37 SENIOR ARCHITECT/DESIGN MANAGER Gloria Dunbar [facility] CPT-65238 Level 4 Est. Patient 16:39:07 CDT Ang Markham MD [facility] CPT-16980 Level 3 Est. Patient 16:35:50 CDT Ang Markham MD [facility] CPT-28782 Level 4 Est. Patient 13:53:06 SENIOR ARCHITECT/DESIGN MANAGER Ang Markham MD [facility] CPT-64618 Level 3 Est. Patient 08:58:08 SENIOR ARCHITECT/DESIGN MANAGER Ang Markham MD [facility] CPT-37318 Level 3 Est. Patient 18:48:29 CDT Anthony Whitfield [facility] CPT-00435 Level 3 Est. Patient 12:16:59 CDT Gabriel Hunt DO [facility] CPT-95930 Level 3 Est. Patient 18:57:15 CDT Anthony Whitfield [facility] CPT-08574 Level 3 Est. Patient 13:59:22 SENIOR ARCHITECT/DESIGN MANAGER Ang Markham MD [facility] CPT-27442 Level 4 Est. Patient 10:36:08 SENIOR ARCHITECT/DESIGN MANAGER Ang Markham MD [facility] CPT-24730 Level 3 Est. Patient 16:27:02 CDT Eri Borges MD PhD [facility] CPT-16607 Level 3 Est. Patient 10:36:43 CDT Octaviano CARBONE [facility] CPT-68621 Level 4 New Patient 08:58:06 CDT Ang Markham MD [facility] Procedures Code Procedure Name Date Entry Date Standard Description CPT-09672 LS spine comp w obliques - XRAY USE ONLY 15:34:48 CDT CPT-64804 Lipid - LAB USE ONLY 15:28:39 CDT CPT-67125 CMP - LAB USE ONLY 15:28:39 CDT CPT-76270 Venipuncture Draw Fee 15:28:39 CDT CPT-58952 Abd compl w upright - XRAY USE ONLY 14:09:39 CDT 02/28 CPT-31533 Venipuncture Draw Fee 12:25:15 CDT CPT-84890 Knee 3V 16:48:40 CDT CPT-OV Office Visit 16:27:13 CDT CPT-OV Office Visit 16:21:19 CDT CPT-23805 Sono pelvis non OB uterus ovaries cervix 09:37:28 CDT
--- OUTSIDE RECORDS SUMMARY | 2018-12-22 01:55 | XMS REPORT | Clinical Summary ---
Author Author Admin, QIE Organization [facility] Address Unknown Phone Unavailable Allergies, Adverse Reactions, [...] MD Cellulitis, ankle, left ICD-682.6 Inactive Ang Markahm MD Medication List Medication Instructions Start Date Stop Date Generic Name NDC Status Provider Patient Instruction COLACE 100 MG CAP 1 po BID PRN Constipation DOCUSATE SODIUM 72396153633 Active Ang Markham MD Active PAXIL 20 MG TAB 1 tablet by mouth daily PAROXETINE HCL 45664228968 Active Ang Markham MD Active GENTAMICIN SULFATE 0.1 % EXT OINT Apply to open sores once a day. GENTAMICIN SULFATE 35994318732 No Longer Active Ang Markham MD Active ZOLPIDEM TARTRATE 10 MG TABS 1 po qHS PRN Insomnia ZOLPIDEM TARTRATE 26556930016 Active Ang Markham MD Active BACTRIM DS 800-160 MG TAB 1 tab by mouth twice daily TRIMETHOPRIM-SULFAMETHOXAZOLE 19039113624 No Longer Active Gloria Dunbar WORKFORCE INVESTMENT ACT CAREER MANAGER Active LEVEMIR FLEXTOUCH 100 UNIT/ML SC SOPN 40 units SC nightly INSULIN DETEMIR 91213844262 Active Ang Markham MD Active LEVEMIR FLEXPEN 100 UNIT/ML SOLN 40 units SC at bedtime INSULIN DETEMIR No Longer Active Susan Arellano RMA Active INSUPEN ULTRAFIN 31G X 6 MM MISC Use with insulin qid. DX: E11.9 INSULIN PEN NEEDLE 45110371023 Active Ang Markham MD Active ZOLOFT 100 MG TAB 1 po qHS SERTRALINE HCL 09760194149 No Longer Active Ang Markham MD Active MELOXICAM 15 MG TABS 1 po qd PRN Knee Pain MELOXICAM 21230030432 No Longer Active Ang Markham MD Active LIPITOR 40 MG TAB 1 po qHS ATORVASTATIN CALCIUM 33774798106 Active Agn Markham MD Active METFORMIN HCL 1000 MG TABS 1 tablet by mouth twice daily METFORMIN HCL 95229159478 Active Ang Markham MD Active CYCLOBENZAPRINE HCL 5 MG TABS 1 po qHS PRN Muscle pain CYCLOBENZAPRINE HCL 39283099732 Active Ang Markham MD Active COLACE 100 MG CAP 1 po BID PRN Constipation DOCUSATE SODIUM 60847058334 No Longer Active Ang Markham MD Active HYDROXYZINE HCL 25 MG TAB 1 TID PRN nerves HYDROXYZINE HCL 05778912403 Active Ang Markham MD Active IBUPROFEN 800 MG TABS 1 tab every 8 hours as needed for pain 2013 IBUPROFEN 21037335203 No Longer Active Ang Markham MD Active NITROFURANTOIN MACROCRYSTAL 100 MG CAPS 1 capsule PO bid x 7 days NITROFURANTOIN MACROCRYSTAL 17893654081 No Longer Active Ang Markham MD Active DIFLUCAN 150 MG TAB 1 qODay x 2 doses FLUCONAZOLE 77749895966 No Longer Active Da Romero WORKFORCE INVESTMENT ACT CAREER MANAGER Active CEFTIN 500 MG TAB 1 tablet by mouth twice daily for 7 days 07/24 CEFUROXIME AXETIL 24338217636 No Longer Active Anthony CARBONE Active ZOLOFT 50 MG TAB 1 tablet by mouth daily SERTRALINE HCL 73547345865 No Longer Active Anthony CARBONE Active ANUSOL-HC 2.5 % CREAM apply as needed HYDROCORTISONE (RECTAL) 46046546935 No Longer Active Anthony CARBONE Active COLACE 100 MG CAP 1 tab PO BID DOCUSATE SODIUM 08609134463 No Longer Active Anthony CARBONE Active TRINESSA (28) 0.18/0.215/0.25 MG-35 MCG TABS 1 po qd as directed NORGESTIM-ETH ESTRAD TRIPHASIC 03333883151 No Longer Active Anthony CARBONE Active [facility] MELAT[facility]IN 5 MG TABS 1-2 po qHS PRN Insomnia MELATONIN 80558133512 No Longer Active Anthony CARBONE Active NOVOLOG FLEXPEN 100 UNIT/ML SOPN Take 18 units TID with meals INSULIN ASPART 19691743079 Active Codey Hdez MD Active ACYCLOVIR 400 MG TABS ACYCLOVIR 03209903235 No Longer Active Ang Markham MD Active EMBRACE BLOOD GLUCOSE TEST STRP Test blood sugars 4 times daily and PRN 08/05 GLUCOSE BLOOD 33451327231 Active Ang Markham MD Active HYDROXYZINE HCL 25 MG TABS 1 tab PO tid PRN itching HYDROXYZINE HCL 02071819425 No Longer Active Ang Markham MD Active DIFLUCAN 150 MG TAB 1 qODay x 2 doses FLUCONAZOLE 41255857832 No Longer Active Da Romero APRN Active ACYCLOVIR 400 MG TABS 1 pill twice daily ACYCLOVIR 30412195989 No Longer Active Jillina Nick OSHEA Active AZITHROMYCIN 250 MG TABS 2 po qd x 1 day, then 1 po qd x 4 days AZITHROMYCIN 46322793042 No Longer Active Eri Borges MD PhD Active AZITHROMYCIN 250 MG TABS take 2 po day 1 then take1 po days 2-5 AZITHROMYCIN 58864394885 No Longer Active Octaviano CARBONE Active ACYCLOVIR 400 MG TABS 1 po qd ACYCLOVIR 37568142216 No Longer Active Ang Markham MD Active PROZAC 40 MG CAPS 1 cap by mouth at bedtime FLUOXETINE HCL 93811003952 No Longer Active Ang Markham MD Active HYDROXYZINE HCL 25 MG TABS 1 tab PO tid PRN itching HYDROXYZINE HCL 25 MG TABS 388358 HYDROXYZINE HCL Inactive [facility] MELATONIN 5 MG TABS 1-2 po qHS PRN Insomnia [facility] MELATONIN 5 MG TABS 031005 MELATONIN Inactive TRINESSA (28) 0.18/0.215/0.25 MG-35 MCG TABS 1 po qd as directed TRINESSA (28) 0.18/0.215/0.25 MG-35 MCG TABS 101768 NORGESTIM-ETH ESTRAD TRIPHASIC Inactive COLACE 100 MG CAP 1 tab PO BID COLACE 100 MG CAP 4654454 DOCUSATE SODIUM Inactive ANUSOL-HC 2.5 % CREAM apply as needed ANUSOL-HC 2.5 % CREAM 948909 HYDROCORTISONE (RECTAL) Inactive ZOLOFT 50 MG TAB 1 tablet by mouth daily ZOLOFT 50 MG TAB 915100 SERTRALINE HCL Inactive CEFTIN 500 MG TAB 1 tablet by mouth twice daily for 7 days 07/24 CEFTIN 500 MG TAB 606800 CEFUROXIME AXETIL Inactive NITROFURANTOIN MACROCRYSTAL 100 MG CAPS 1 capsule PO bid x 7 days NITROFURANTOIN MACROCRYSTAL 100 MG CAPS 3482703 NITROFURANTOIN MACROCRYSTAL Inactive IBUPROFEN 800 MG TABS 1 tab every 8 hours as needed for pain 2013 IBUPROFEN 800 MG TABS 482300 IBUPROFEN Inactive COLACE 100 MG CAP 1 po BID PRN Constipation COLACE 100 MG CAP 4856002 DOCUSATE SODIUM Inactive MELOXICAM 15 MG TABS 1 po qd PRN Knee Pain MELOXICAM 15 MG TABS 137014 MELOXICAM Inactive LEVEMIR FLEXPEN 100 UNIT/ML SOLN 40 units SC at bedtime LEVEMIR FLEXPEN 100 UNIT/ML SOLN INSULIN DETEMIR Inactive GENTAMICIN SULFATE 0.1 % EXT OINT Apply to open sores once a day. GENTAMICIN SULFATE 0.1 % EXT OINT 528205 GENTAMICIN SULFATE Inactive ACYCLOVIR 400 MG TABS 1 po qd ACYCLOVIR 400 MG TABS 19720928 ACYCLOVIR Inactive AZITHROMYCIN 250 MG TABS take 2 po day 1 then take1 po days 2-5 AZITHROMYCIN 250 MG TABS 6815682 AZITHROMYCIN Inactive AZITHROMYCIN 250 MG TABS 2 po qd x 1 day, then 1 po qd x 4 days AZITHROMYCIN 250 MG TABS 8169590 AZITHROMYCIN Inactive ACYCLOVIR 400 MG TABS 1 pill twice daily ACYCLOVIR 400 MG TABS 180897 ACYCLOVIR Inactive DIFLUCAN 150 MG TAB 1 qODay x 2 doses DIFLUCAN 150 MG TAB 889485 FLUCONAZOLE Inactive ACYCLOVIR 400 MG TABS ACYCLOVIR 400 MG TABS 232046 ACYCLOVIR Inactive DIFLUCAN 150 MG TAB 1 qODay x 2 doses DIFLUCAN 150 MG TAB 856061 FLUCONAZOLE Inactive BACTRIM DS 800-160 MG TAB 1 tab by mouth twice daily BACTRIM DS 800-160 MG TAB 605539 TRIMETHOPRIM-SULFAMETHOXAZOLE Inactive Advance Directives Directive Description Start [...] HGBA1C - Chemistry sodium, serum 134 mmol/L 727-068 0220/03/16 carbon dioxide, venous blood 34.5 mmol/L 21.0-32.0 potassium, serum 4.6 mmol/L 3.5-5.2 chloride, serum 93 mmol/L 98-107 blood glucose 408 mg/dL 65-110 urea nitrogen, blood 3 mg/dL 7-18 creatinine, serum 0.58 mg/dL 0.55-1.30 alanine aminotransferase (SGPT), serum 11 U/L 12-78 aspartate aminotransferase (SGOT), serum 8 U/L 15-37 calcium, serum 9.2 mg/dL 8.5-10.1 bilirubin, serum, total 0.30 mg/dL 0.00-1.00 cholesterol, serum 195 mg/dL 091-911 7583/03/16 triglyceride, serum, fasting 138 mg/dL 30-200 HDL [...] 0-19 Encounters Code Encounter Date Provider Facility CPT-80245 Level 3 Est. Patient 11:13:47 MAINTENANCE DEPARTMENT MANAGER Ang Markham MD [facility] CPT-66360 Level 3 Est. Patient 11:59:20 MAINTENANCE DEPARTMENT MANAGER [facility] CPT-99968 Level 3 Est. Patient 17:32:37 MAINTENANCE DEPARTMENT MANAGER [facility] CPT-95474 Level 4 Est. Patient 16:39:07 CDT Ang Markham MD [facility] CPT-52658 Level 3 Est. Patient 16:35:50 CDT Ang Markham MD [facility] CPT-82915 Level 4 Est. Patient 13:53:06 MAINTENANCE DEPARTMENT MANAGER Ang Markham MD [facility] CPT-50923 Level 3 Est. Patient 08:58:08 MAINTENANCE DEPARTMENT MANAGER Ang Markham MD [facility] CPT-28407 Level 3 Est. Patient 18:48:29 CDT Anthony Whitfield [facility] CPT-73202 Level 3 Est. Patient 12:16:59 CDT Gabriel Hunt DO [facility] CPT-69743 Level 3 Est. Patient 18:57:15 CDT Anthony Whitfield [facility] CPT-27206 Level 3 Est. Patient 13:59:22 MAINTENANCE DEPARTMENT MANAGER Ang Markham MD [facility] CPT-44793 Level 4 Est. Patient 10:36:08 MAINTENANCE DEPARTMENT MANAGER Ang Markham MD [facility] CPT-03324 Level 3 Est. Patient 16:27:02 CDT Eri Borges MD PhD [facility] CPT-69590 Level 3 Est. Patient 10:36:43 CDT Octaviano CARBONE [facility] CPT-74932 Level 4 New Patient 08:58:06 CDT Ang Markham MD [facility] Procedures Code Procedure Name Date Entry Date Standard Description CPT-82945 Venipuncture Draw Fee 12:25:15 CDT CPT-05731 Knee 3V 16:48:40 CDT CPT-OV Office Visit 16:27:13 CDT CPT-OV Office Visit 16:21:19 CDT CPT-21074 Sono pelvis non OB uterus ovaries cervix 09:37:28 CDT
--- OUTSIDE RECORDS SUMMARY | 2018-12-22 01:56 | XMS REPORT | Clinical Summary ---
Author Author Admin, QIE Organization [employer] Address Unknown Phone Unavailable Allergies, Adverse Reactions, [...] unspecified hyperlipidemia Hematochezia 578.1 Active Jisteph Romero RAW SAMPLER Blood in stool Nausea 787.02 Active Jillina Franayal RAW SAMPLER Nausea alone Otitis externa, acute, left 380.12 [...] with hypoglycemia ICD-250.81 Inactive Ang Markham MD half-way use 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 ICD-V58.67 Inactive Ang Markham MD Medication List Medication Instructions Start Date Stop Date Generic Name NDC Status Provider Patient Instruction CORTISPORIN 3.5-41310-8 SOLN 4gtts in affected ear QID x 7 days [id number] Active Gabriel Hunt DO Active LEVEMIR FLEXTOUCH 100 UNIT/ML SC SOPN 35 units SC at 12-1pm, 35 units 12-1am INSULIN DETEMIR 54275839781 Active Ang Markham MD Active DOXEPIN HCL 10 MG CAP 1 tablet nightly for the itch DOXEPIN HCL 16147852806 Active Gabriel Hunt DO Active COLACE 100 MG CAP 1 po daily DOCUSATE SODIUM 89387952215 Wiley Hunt DO Active NOVOLOG FLEXPEN 100 UNIT/ML SOPN Take 20 units TID with meals, plus 2u/50 for blood sugars above 150. Ratio vs. Carbs INSULIN ASPART 95954418269 Active Gabriel Hunt DO Active BD PEN NEEDLE DINESH U/F 32G X 4 MM MISC 5 a day INSULIN PEN NEEDLE 89234945333 Active Celestine Sierraglari HAZMAT CDL A DRIVER Active EMBRACE BLOOD GLUCOSE TEST STRP Test blood sugars 4 times daily and PRN 08/05 GLUCOSE BLOOD 25177553028 No Longer Active Celestine Sierraglari HAZMAT CDL A DRIVER Active TRUEPLUS LANCETS 30G MISC 4 a day LANCETS 64536635224 Active Celestine Sierraglari HAZMAT CDL A DRIVER Active TRUETEST TEST STRP check blood sugars 4x/day GLUCOSE BLOOD 98969333773 Active Celestine Sierraglari HAZMAT CDL A DRIVER Active TRUERESULT BLOOD GLUCOSE W/DEVICE KIT check blood sugars 4x a day BLOOD GLUCOSE MONITORING SUPPL 43072095205 Active Celestine Sierraglari HAZMAT CDL A DRIVER Active LISINOPRIL 5 MG TABS 1 po qd LISINOPRIL 16312200633 Active Ang Markham MD Active PAXIL 20 MG TAB 1 tablet by mouth daily PAROXETINE HCL 42474296148 Active Ang Markham MD Active GENTAMICIN SULFATE 0.1 % EXT OINT Apply to open sores once a day. GENTAMICIN SULFATE 91358968819 No Longer Active Ang Markham MD Active ZOLPIDEM TARTRATE 10 MG TABS 1 po qHS PRN Insomnia ZOLPIDEM TARTRATE 82369519428 Active Ang Markham MD Active BACTRIM DS 800-160 MG TAB 1 tab by mouth twice daily TRIMETHOPRIM-SULFAMETHOXAZOLE 22988631813 No Longer Active Gloria Dunbar RAW SAMPLER Active LEVEMIR FLEXPEN 100 UNIT/ML SOLN 40 units SC at bedtime INSULIN DETEMIR No Longer Active Susan Arellano RMA Active INSUPEN ULTRAFIN 31G X 6 MM MISC Use with insulin qid. DX: E11.9 INSULIN PEN NEEDLE 69839996634 Active Ang Markham MD Active ZOLOFT 100 MG TAB 1 po qHS SERTRALINE HCL 28693965879 No Longer Active Ang Markham MD Active MELOXICAM 15 MG TABS 1 po qd PRN Knee Pain MELOXICAM 33813265839 No Longer Active Ang Markham MD Active LIPITOR 40 MG TAB 1 po qHS ATORVASTATIN CALCIUM 49128842012 Active Ang Markham MD Active METFORMIN HCL 1000 MG TABS 1 tablet by mouth twice daily METFORMIN HCL 65029741498 Active Ang Markham MD Active CYCLOBENZAPRINE HCL 5 MG TABS 1 po qHS PRN Muscle pain CYCLOBENZAPRINE HCL 76032628145 Active Ang Markham MD Active COLACE 100 MG CAP 1 po BID PRN Constipation DOCUSATE SODIUM 02344929311 No Longer Active Ang Markham MD Active HYDROXYZINE HCL 25 MG TAB 1 TID PRN nerves HYDROXYZINE HCL 39763337125 Active Ang Markham MD Active IBUPROFEN 800 MG TABS 1 tab every 8 hours as needed for pain 2013 IBUPROFEN 85441461333 No Longer Active Ang Markham MD Active NITROFURANTOIN MACROCRYSTAL 100 MG CAPS 1 capsule PO bid x 7 days NITROFURANTOIN MACROCRYSTAL 95191557907 No Longer Active Ang Markham MD Active DIFLUCAN 150 MG TAB 1 qODay x 2 doses FLUCONAZOLE 85773210638 No Longer Active Da Romero APRN Active CEFTIN 500 MG TAB 1 tablet by mouth twice daily for 7 days 07/24 CEFUROXIME AXETIL 40259271751 No Longer Active Anthony CARBONE Active ZOLOFT 50 MG TAB 1 tablet by mouth daily SERTRALINE HCL 63600333237 No Longer Active Anthony CARBONE Active ANUSOL-HC 2.5 % CREAM apply as needed HYDROCORTISONE (RECTAL) 75764869659 No Longer Active Anthony CARBONE Active COLACE 100 MG CAP 1 tab PO BID DOCUSATE SODIUM 04050452558 No Longer Active Anthony CARBONE Active TRINESSA (28) 0.18/0.215/0.25 MG-35 MCG TABS 1 po qd as directed NORGESTIM-ETH ESTRAD TRIPHASIC 12935593285 No Longer Active Anthony CARBONE Active [facility] MELATONIN 5 MG TABS 1-2 po qHS PRN Insomnia MELATONIN 27988143269 No Longer Active Anthony CARBONE Active ACYCLOVIR 400 MG TABS ACYCLOVIR 60193159235 No Longer Active Ang Markham MD Active HYDROXYZINE HCL 25 MG TABS 1 tab PO tid PRN itching HYDROXYZINE HCL 80472181607 No Longer Active Ang Markham MD Active DIFLUCAN 150 MG TAB 1 qODay x 2 doses FLUCONAZOLE 26560751225 No Longer Active Jillina Frazell RAW SAMPLER Active ACYCLOVIR 400 MG TABS 1 pill twice daily ACYCLOVIR 43896811955 No Longer Active Jillina Frazell RAW SAMPLER Active AZITHROMYCIN 250 MG TABS 2 po qd x 1 day, then 1 po qd x 4 days AZITHROMYCIN 36110834794 No Longer Active Eri Borges MD PhD Active AZITHROMYCIN 250 MG TABS take 2 po day 1 then take1 po days 2-5 AZITHROMYCIN 05260028300 No Longer Active Octaviano CARBONE Active ACYCLOVIR 400 MG TABS 1 po qd ACYCLOVIR 10872231451 No Longer Active Ang Markham MD Active PROZAC 40 MG CAPS 1 cap by mouth at bedtime FLUOXETINE HCL 72383604561 No Longer Active Ang Markham MD Active HYDROXYZINE HCL 25 MG TABS 1 tab PO tid PRN itching HYDROXYZINE HCL 25 MG TABS 908785 HYDROXYZINE HCL Inactive [facility] MELATONIN 5 MG TABS 1-2 po qHS PRN Insomnia [facility] MELATONIN 5 MG TABS 277504 MELATONIN Inactive TRINESSA (28) 0.18/0.215/0.25 MG-35 MCG TABS 1 po qd as directed TRINESSA (28) 0.18/0.215/0.25 MG-35 MCG TABS 819075 NORGESTIM-ETH ESTRAD TRIPHASIC Inactive COLACE 100 MG CAP 1 tab PO BID COLACE 100 MG CAP 8789671 DOCUSATE SODIUM Inactive ANUSOL-HC 2.5 % CREAM apply as needed ANUSOL-HC 2.5 % CREAM 274842 HYDROCORTISONE (RECTAL) Inactive ZOLOFT 50 MG TAB 1 tablet by mouth daily ZOLOFT 50 MG TAB 533527 SERTRALINE HCL Inactive CEFTIN 500 MG TAB 1 tablet by mouth twice daily for 7 days 07/24 CEFTIN 500 MG TAB 446287 CEFUROXIME AXETIL Inactive NITROFURANTOIN MACROCRYSTAL 100 MG CAPS 1 capsule PO bid x 7 days NITROFURANTOIN MACROCRYSTAL 100 MG CAPS 3750772 NITROFURANTOIN MACROCRYSTAL Inactive IBUPROFEN 800 MG TABS 1 tab every 8 hours as needed for pain 2013 IBUPROFEN 800 MG TABS 834583 IBUPROFEN Inactive COLACE 100 MG CAP 1 po BID PRN Constipation COLACE 100 MG CAP 6910422 DOCUSATE SODIUM Inactive MELOXICAM 15 MG TABS 1 po qd PRN Knee Pain MELOXICAM 15 MG TABS 266913 MELOXICAM Inactive LEVEMIR FLEXPEN 100 UNIT/ML SOLN 40 units SC at bedtime LEVEMIR FLEXPEN 100 UNIT/ML SOLN INSULIN DETEMIR Inactive GENTAMICIN SULFATE 0.1 % EXT OINT Apply to open sores once a day. GENTAMICIN SULFATE 0.1 % EXT OINT 696662 GENTAMICIN SULFATE Inactive EMBRACE BLOOD GLUCOSE TEST STRP Test blood sugars 4 times daily and PRN 08/05 EMBRACE BLOOD GLUCOSE TEST STRP GLUCOSE BLOOD Inactive ACYCLOVIR 400 MG TABS 1 po qd ACYCLOVIR 400 MG TABS 19720928 ACYCLOVIR Inactive AZITHROMYCIN 250 MG TABS take 2 po day 1 then take1 po days 2-5 AZITHROMYCIN 250 MG TABS 8261891 AZITHROMYCIN Inactive AZITHROMYCIN 250 MG TABS 2 po qd x 1 day, then 1 po qd x 4 days AZITHROMYCIN 250 MG TABS 6224320 AZITHROMYCIN Inactive ACYCLOVIR 400 MG TABS 1 pill twice daily ACYCLOVIR 400 MG TABS 19720928 ACYCLOVIR Inactive DIFLUCAN 150 MG TAB 1 qODay x 2 doses DIFLUCAN 150 MG TAB 19760606 FLUCONAZOLE Inactive ACYCLOVIR 400 MG TABS ACYCLOVIR 400 MG TABS 19720928 ACYCLOVIR Inactive DIFLUCAN 150 MG TAB 1 qODay x 2 doses DIFLUCAN 150 MG TAB 340239 FLUCONAZOLE Inactive BACTRIM DS 800-160 MG TAB 1 tab by mouth twice daily BACTRIM DS 800-160 MG TAB 560695 TRIMETHOPRIM-SULFAMETHOXAZOLE Inactive Advance Directives Directive Description Start [...] Metabolic Panel, Lipid Panel, HGBA1C - Chemistry carbon dioxide, venous blood 34.5 mmol/L 21.0-32.0 potassium, serum 4.6 mmol/L 3.5-5.2 chloride, serum 93 mmol/L 98-107 blood glucose 408 mg/dL 65-110 urea nitrogen, blood 3 mg/dL 7-18 creatinine, serum 0.58 mg/dL 0.55-1.30 alanine aminotransferase (SGPT), serum 11 U/L 12-78 aspartate aminotransferase (SGOT), serum 8 U/L 15-37 calcium, serum 9.2 mg/dL 8.5-10.1 bilirubin, serum, total 0.30 mg/dL 0.00-1.00 cholesterol, serum 195 mg/dL 098-360 0893/03/16 triglyceride, serum, fasting 138 mg/dL 30-200 HDL cholesterol, serum 41 mg/dL 32-96 LDL cholesterol, serum 126 mg/dL 0-130 hemoglobin A1C, blood, as % of total hemoglobin 13.6 % 4.3-6.0 sodium, serum 134 mmol/L 136-145 Lab Report: CBC, Comp. Metabolic Panel, Lipid Panel, HGBA1C - Hematology platelet count 429 10^3/MM^3 10*3/mm3 557-940 7527/03/16 red blood cell distribution width 14.2 % 11.6-14.8 mean corpuscular hemoglobin concentration, RBC 32.6 G/DL % 31.8- 35.4 mean corpuscular hemoglobin, RBC 26.3 pg 27.0-31.2 mean corpuscular volume, RBC 81 fL 80-97 hematocrit, blood 40.8 % 36.0-46.0 hemoglobin, blood 13.3 g/dL 12.0-16.0 erythrocyte (RBC) count 5.06 10^6/MM^3 10*6/mm3 4.04-5.48 leukocyte count, blood 15.0 10^3/MM^3 10*3/mm3 4.6-10.2 Lab Report: HGBA1C - Chemistry hemoglobin A1C, blood, as % of total hemoglobin 11.4 % 4.3-6.0 Lab Report: MICROALB/CREAT W/RATIO - Chemistry albumin/creatinine ratio, urine > 300 mg/g mg/g{creat} 0-29 Lab Report: MICROALB/CREAT W/RATIO - Lab microalbumin, urine 150 0-19 Lab Report: UADIP W/MICRO, AUTO, CBC W/DIFF, Comp. Metabolic Panel - Chemistry RBC, urine, dipstick Negative Negative alanine aminotransferase (SGPT), serum 18 U/L 12-78 aspartate aminotransferase (SGOT), serum 15 U/L 15-37 calcium, serum 9.2 mg/dL 8.5-10.1 bilirubin, serum, total 0.20 mg/dL 0.00-1.00 protein, total urine random Negative mg/dL Negative sodium, serum 133 mmol/L 228-122 4255/06/03 carbon dioxide, venous blood 33.4 mmol/L 21.0-32.0 potassium, serum 4.3 mmol/L 3.5-5.2 chloride, serum 97 mmol/L 98-107 blood glucose 450 mg/dL 65-110 urea nitrogen, blood 9 mg/dL 7-18 creatinine, serum 0.68 mg/dL 0.55-1.30 Lab Report: UADIP W/MICRO, AUTO, CBC W/DIFF, [...] CBC W/DIFF, Comp. Metabolic Panel - Urinalysis leukocyte esterase, urine, by dipstick Negative Negative nitrite, urine, semiquantitative Negative Negative urobilinogen, urine, semiquantitative (dipstick) 0.2 Normal pH, urine, semiquantitative 5.5 5.0-8.5 glucose, urine, semiquantitative 3+ Negative ketones, urine, by test strip Negative Negative bilirubin, urine Negative Negative urine color Yellow Colorless;Lightyellow;Straw;Yellow appearance, urine SlCloudy Clear specific gravity, urine 1.015 1.000-1.030 Lab Report: [facility] [place] Chemistry human chorionic gonadotropin, urine, qualitative (urine test) Negative Negative Office Visit: Diabetes Visit - Chemistry HDL cholesterol, serum, target level 35 mg/dL LDL target level 100 mg/dL cholesterol, target level 200 mg/dL triglyceride, target level 200 mg/dL cholesterol, target level 200 mg/dL triglyceride, target level 200 mg/dL HDL cholesterol, serum, target level 35 mg/dL LDL target level 100 mg/dL home glucose monitor utilized Yes Encounters Code Encounter Date Provider Facility CPT-22301 Level 3 Est. Patient 17:02:56 CDT Gabriel Ramos [facility] CPT-56630 Level 3 Est. Patient 14:46:22 CDT Da Romero [facility] CPT-92235 Level 4 Est. Patient 13:55:20 CDT Ang Markham MD [facility] CPT-48472 Level 4 Est. Patient 16:10:09 CDT Celestine Huerta [facility] CPT-99574 Level 3 Est. Patient 13:51:24 CDT Ang Markham MD [facility] CPT-21190 Level 3 Est. Patient 18:42:15 CDT Gabriel Hunt [facility] CPT-19124 Level 5 Est. Patient 14:40:14 CDT Celestine Huerta [facility] CPT-04119 Level 4 Est. Patient 14:36:17 CDT Ang Markham MD [facility] CPT-42276 Level 3 Est. Patient 11:13:47 TOMBSTONE ERECTOR Ang Markham MD [facility] CPT-09098 Level 3 Est. Patient 11:59:20 TOMBSTONE ERECTOR Gloria Dunbar [facility] CPT-73288 Level 3 Est. Patient 17:32:37 TOMBSTONE ERECTOR Gloria Dunbar [facility] CPT-89403 Level 4 Est. Patient 16:39:07 CDT Ang Markham MD [facility] CPT-08880 Level 3 Est. Patient 16:35:50 CDT Ang Markham MD [facility] CPT-77776 Level 4 Est. Patient 13:53:06 TOMBSTONE ERECTOR Ang Markham MD [facility] CPT-51875 Level 3 Est. Patient 08:58:08 TOMBSTONE ERECTOR Ang Markham MD [facility] CPT-31800 Level 3 Est. Patient 18:48:29 CDT Anthony Whitfield [facility] CPT-32365 Level 3 Est. Patient 12:16:59 CDT Gabriel Hunt DO [facility] CPT-54386 Level 3 Est. Patient 18:57:15 CDT Anthony Whitfield [facility] CPT-42843 Level 3 Est. Patient 13:59:22 TOMBSTONE ERECTOR Ang Markham MD [facility] CPT-77047 Level 4 Est. Patient 10:36:08 TOMBSTONE ERECTOR Ang Markham MD [facility] CPT-71320 Level 3 Est. Patient 16:27:02 CDT Eri Borges MD PhD [facility] CPT-01493 Level 3 Est. Patient 10:36:43 CDT Octaviano Roselyn [facility] CPT-87387 Level 4 New Patient 08:58:06 CDT Ang Markham MD [facility] Procedures Code Procedure Name Date Entry Date Standard Description CPT-93413 Abd compl w upright - XRAY USE ONLY 14:09:39 CDT 02/28 CPT-38847 Venipuncture Draw Fee 12:25:15 CDT CPT-51258 Knee 3V 16:48:40 CDT CPT-OV Office Visit 16:27:13 CDT CPT-OV Office Visit 16:21:19 CDT CPT-77650 Sono pelvis non OB uterus ovaries cervix 09:37:28 CDT
--- OUTSIDE RECORDS SUMMARY | 2018-12-22 01:57 | XMS REPORT | Clinical Summary ---
Author Author Admin, QIE Organization [employer] Address Unknown Phone Unavailable Allergies, Adverse [...] unspecified hyperlipidemia Hematochezia 578.1 Active Jisteph Romero BUILDING ANALYST/SUPERVISOR Blood in stool Nausea 787.02 Active Jillina Franayal BUILDING ANALYST/SUPERVISOR Nausea alone Otitis externa, acute, left 380.12 Active Gabriel Hutn DO Acute swimmers' ear DEPRESSION ICD-311 Inactive [...] MD Joint crepitus, knee ICD-719.66 Inactive Ang Markhma MD Knee pain, bilateral ICD-719.46 Inactive Ang [...] with hypoglycemia ICD-250.81 Inactive Ang Markham MD longterm use 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 ICD-V58.67 Inactive Ang Markham MD Medication List Medication Instructions Start Date Stop Date Generic Name NDC Status Provider Patient Instruction CORTISPORIN 3.5-55116-2 SOLN 4gtts in affected ear QID x 7 days [id number] Active Gabriel Hunt DO Active LEVEMIR FLEXTOUCH 100 UNIT/ML SC SOPN 35 units SC at 12-1pm, 35 units 12-1am INSULIN DETEMIR 65695056879 Active Ang Markham MD Active DOXEPIN HCL 10 MG CAP 1 tablet nightly for the itch DOXEPIN HCL 19099040380 Active Gabriel Hunt DO Active COLACE 100 MG CAP 1 po daily DOCUSATE SODIUM 21565033780 Wiley Hunt DO Active NOVOLOG FLEXPEN 100 UNIT/ML SOPN Take 20 units TID with meals, plus 2u/50 for blood sugars above 150. Ratio vs. Carbs INSULIN ASPART 23518064654 Active Gabriel Hunt DO Active BD PEN NEEDLE DINESH U/F 32G X 4 MM MISC 5 a day INSULIN PEN NEEDLE 12430397602 Active Celestine Sierraglari TREASURY DIRECTOR Active EMBRACE BLOOD GLUCOSE TEST STRP Test blood sugars 4 times daily and PRN 08/05 GLUCOSE BLOOD 76865832940 No Longer Active Celestine Sierraglari TREASURY DIRECTOR Active TRUEPLUS LANCETS 30G MISC 4 a day LANCETS 21414341975 Active Celestine Sierraglari TREASURY DIRECTOR Active TRUETEST TEST STRP check blood sugars 4x/day GLUCOSE BLOOD 08332805078 Active Celestine Sierraglari TREASURY DIRECTOR Active TRUERESULT BLOOD GLUCOSE W/DEVICE KIT check blood sugars 4x a day BLOOD GLUCOSE MONITORING SUPPL 73131946743 Active Celestine Sierraglari TREASURY DIRECTOR Active LISINOPRIL 5 MG TABS 1 po qd LISINOPRIL 79385702681 Active Ang Markham MD Active PAXIL 20 MG TAB 1 tablet by mouth daily PAROXETINE HCL 36102383599 Active Ang Markham MD Active GENTAMICIN SULFATE 0.1 % EXT OINT Apply to open sores once a day. GENTAMICIN SULFATE 77717502575 No Longer Active Ang Markham MD Active ZOLPIDEM TARTRATE 10 MG TABS 1 po qHS PRN Insomnia ZOLPIDEM TARTRATE 64958154781 Active Ang Markham MD Active BACTRIM DS 800-160 MG TAB 1 tab by mouth twice daily TRIMETHOPRIM-SULFAMETHOXAZOLE 63956214861 No Longer Active Gloria Dunbar BUILDING ANALYST/SUPERVISOR Active LEVEMIR FLEXPEN 100 UNIT/ML SOLN 40 units SC at bedtime INSULIN DETEMIR No Longer Active Susan Arellano RMA Active INSUPEN ULTRAFIN 31G X 6 MM MISC Use with insulin qid. DX: E11.9 INSULIN PEN NEEDLE 15592471225 Active Ang Markham MD Active ZOLOFT 100 MG TAB 1 po qHS SERTRALINE HCL 91619474484 No Longer Active Ang Markham MD Active MELOXICAM 15 MG TABS 1 po qd PRN Knee Pain MELOXICAM 28684177470 No Longer Active Ang Markham MD Active LIPITOR 40 MG TAB 1 po qHS ATORVASTATIN CALCIUM 34785787777 Active Ang Markham MD Active METFORMIN HCL 1000 MG TABS 1 tablet by mouth twice daily METFORMIN HCL 74193763514 Active Ang Markham MD Active CYCLOBENZAPRINE HCL 5 MG TABS 1 po qHS PRN Muscle pain CYCLOBENZAPRINE HCL 41942291520 Active Ang Markham MD Active COLACE 100 MG CAP 1 po BID PRN Constipation DOCUSATE SODIUM 86526306639 No Longer Active Ang Markham MD Active HYDROXYZINE HCL 25 MG TAB 1 TID PRN nerves HYDROXYZINE HCL 08232900386 Active Ang Markham MD Active IBUPROFEN 800 MG TABS 1 tab every 8 hours as needed for pain 2013 IBUPROFEN 12647741073 No Longer Active Ang Markham MD Active NITROFURANTOIN MACROCRYSTAL 100 MG CAPS 1 capsule PO bid x 7 days NITROFURANTOIN MACROCRYSTAL 46557947451 No Longer Active Ang Markham MD Active DIFLUCAN 150 MG TAB 1 qODay x 2 doses FLUCONAZOLE 31273256358 No Longer Active Da Romero APRN Active CEFTIN 500 MG TAB 1 tablet by mouth twice daily for 7 days 07/24 CEFUROXIME AXETIL 45171480909 No Longer Active Anthony CARBONE Active ZOLOFT 50 MG TAB 1 tablet by mouth daily SERTRALINE HCL 14058885687 No Longer Active Anthony CARBONE Active ANUSOL-HC 2.5 % CREAM apply as needed HYDROCORTISONE (RECTAL) 05782532967 No Longer Active Anthony CARBONE Active COLACE 100 MG CAP 1 tab PO BID DOCUSATE SODIUM 73483478571 No Longer Active Anthony CARBONE Active TRINESSA (28) 0.18/0.215/0.25 MG-35 MCG TABS 1 po qd as directed NORGESTIM-ETH ESTRAD TRIPHASIC 11661048301 No Longer Active Anthony CARBONE Active [facility] MELATONIN 5 MG TABS 1-2 po qHS PRN Insomnia MELATONIN 15472575593 No Longer Active Anthony CARBONE Active ACYCLOVIR 400 MG TABS ACYCLOVIR 56411005569 No Longer Active Ang Markham MD Active HYDROXYZINE HCL 25 MG TABS 1 tab PO tid PRN itching HYDROXYZINE HCL 54096845948 No Longer Active Ang Markham MD Active DIFLUCAN 150 MG TAB 1 qODay x 2 doses FLUCONAZOLE 53772335814 No Longer Active Jillina Frazell BUILDING ANALYST/SUPERVISOR Active ACYCLOVIR 400 MG TABS 1 pill twice daily ACYCLOVIR 22012932032 No Longer Active Jillina Frazell BUILDING ANALYST/SUPERVISOR Active AZITHROMYCIN 250 MG TABS 2 po qd x 1 day, then 1 po qd x 4 days AZITHROMYCIN 88310953811 No Longer Active Eri Borges MD PhD Active AZITHROMYCIN 250 MG TABS take 2 po day 1 then take1 po days 2-5 AZITHROMYCIN 30177565068 No Longer Active Octaviano CARBONE Active ACYCLOVIR 400 MG TABS 1 po qd ACYCLOVIR 95207930341 No Longer Active Ang Markham MD Active PROZAC 40 MG CAPS 1 cap by mouth at bedtime FLUOXETINE HCL 78054819081 No Longer Active Ang Markham MD Active HYDROXYZINE HCL 25 MG TABS 1 tab PO tid PRN itching HYDROXYZINE HCL 25 MG TABS 462940 HYDROXYZINE HCL Inactive [facility] MELATONIN 5 MG TABS 1-2 po qHS PRN Insomnia [facility] MELATONIN 5 MG TABS 255832 MELATONIN Inactive TRINESSA (28) 0.18/0.215/0.25 MG-35 MCG TABS 1 po qd as directed TRINESSA (28) 0.18/0.215/0.25 MG-35 MCG TABS 528555 NORGESTIM-ETH ESTRAD TRIPHASIC Inactive COLACE 100 MG CAP 1 tab PO BID COLACE 100 MG CAP 1321924 DOCUSATE SODIUM Inactive ANUSOL-HC 2.5 % CREAM apply as needed ANUSOL-HC 2.5 % CREAM 772077 HYDROCORTISONE (RECTAL) Inactive ZOLOFT 50 MG TAB 1 tablet by mouth daily ZOLOFT 50 MG TAB 769921 SERTRALINE HCL Inactive CEFTIN 500 MG TAB 1 tablet by mouth twice daily for 7 days 07/24 CEFTIN 500 MG TAB 233421 CEFUROXIME AXETIL Inactive NITROFURANTOIN MACROCRYSTAL 100 MG CAPS 1 capsule PO bid x 7 days NITROFURANTOIN MACROCRYSTAL 100 MG CAPS 4862334 NITROFURANTOIN MACROCRYSTAL Inactive IBUPROFEN 800 MG TABS 1 tab every 8 hours as needed for pain 2013 IBUPROFEN 800 MG TABS 357082 IBUPROFEN Inactive COLACE 100 MG CAP 1 po BID PRN Constipation COLACE 100 MG CAP 0230595 DOCUSATE SODIUM Inactive MELOXICAM 15 MG TABS 1 po qd PRN Knee Pain MELOXICAM 15 MG TABS 023633 MELOXICAM Inactive LEVEMIR FLEXPEN 100 UNIT/ML SOLN 40 units SC at bedtime LEVEMIR FLEXPEN 100 UNIT/ML SOLN INSULIN DETEMIR Inactive GENTAMICIN SULFATE 0.1 % EXT OINT Apply to open sores once a day. GENTAMICIN SULFATE 0.1 % EXT OINT 319178 GENTAMICIN SULFATE Inactive EMBRACE BLOOD GLUCOSE TEST STRP Test blood sugars 4 times daily and PRN 08/05 EMBRACE BLOOD GLUCOSE TEST STRP GLUCOSE BLOOD Inactive ACYCLOVIR 400 MG TABS 1 po qd ACYCLOVIR 400 MG TABS 19720928 ACYCLOVIR Inactive AZITHROMYCIN 250 MG TABS take 2 po day 1 then take1 po days 2-5 AZITHROMYCIN 250 MG TABS 3899198 AZITHROMYCIN Inactive AZITHROMYCIN 250 MG TABS 2 po qd x 1 day, then 1 po qd x 4 days AZITHROMYCIN 250 MG TABS 1721430 AZITHROMYCIN Inactive ACYCLOVIR 400 MG TABS 1 pill twice daily ACYCLOVIR 400 MG TABS 19720928 ACYCLOVIR Inactive DIFLUCAN 150 MG TAB 1 qODay x 2 doses DIFLUCAN 150 MG TAB 19760606 FLUCONAZOLE Inactive ACYCLOVIR 400 MG TABS ACYCLOVIR 400 MG TABS 19720928 ACYCLOVIR Inactive DIFLUCAN 150 MG TAB 1 qODay x 2 doses DIFLUCAN 150 MG TAB 444971 FLUCONAZOLE Inactive BACTRIM DS 800-160 MG TAB 1 tab by mouth twice daily BACTRIM DS 800-160 MG TAB 802279 TRIMETHOPRIM-SULFAMETHOXAZOLE Inactive Advance Directives Directive Description Start [...] HGBA1C - Chemistry sodium, serum 134 mmol/L 602-943 2523/03/16 carbon dioxide, venous blood 34.5 mmol/L 21.0-32.0 potassium, serum 4.6 mmol/L 3.5-5.2 chloride, serum 93 mmol/L 98-107 blood glucose 408 mg/dL 65-110 urea nitrogen, blood 3 mg/dL 7-18 creatinine, serum 0.58 mg/dL 0.55-1.30 alanine aminotransferase (SGPT), serum 11 U/L 12-78 aspartate aminotransferase (SGOT), serum 8 U/L 15-37 calcium, serum 9.2 mg/dL 8.5-10.1 bilirubin, serum, total 0.30 mg/dL 0.00-1.00 cholesterol, serum 195 mg/dL 905-881 7158/03/16 triglyceride, serum, fasting 138 mg/dL 30-200 HDL [...] Panel - Chemistry sodium, serum 133 mmol/L 786-835 3139/06/03 carbon dioxide, venous blood 33.4 mmol/L 21.0-32.0 [...] pH, urine, semiquantitative 5.5 5.0-8.5 Lab Report: [facility] - Chemistry human chorionic gonadotropin, [...] Yes Encounters Code Encounter Date Provider Facility CPT-38184 Level 3 Est. Patient 17:02:56 CDT Gabriel Hunt [facility] CPT-70137 Level 3 Est. Patient 14:46:22 CDT Da Romero [facility] CPT-58935 Level 4 Est. Patient 13:55:20 CDT [facility] CPT-95546 Level 4 Est. Patient 16:10:09 CDT Celestine Huerta [facility] CPT-91140 Level 3 Est. Patient 13:51:24 CDT Ang [facility] CPT-85353 Level 3 Est. Patient 18:42:15 CDT Gabriel Hunt [facility] CPT-01474 Level 5 Est. Patient 14:40:14 CDT Celestine Huerta [facility] CPT-12035 Level 4 Est. Patient 14:36:17 CDT Ang [facility] CPT-05103 Level 3 Est. Patient 11:13:47 COMMUNICATION CENTER COORDINATOR Ang [facility]ham [facility] CPT-16133 Level 3 Est. Patient 11:59:20 COMMUNICATION CENTER COORDINATOR Gloria Dunbar [facility] CPT-70827 Level 3 Est. Patient 17:32:37 COMMUNICATION CENTER COORDINATOR Gloria Dunbar [facility] CPT-31594 Level 4 Est. Patient 16:39:07 CDT Ang Markham MD [facility] CPT-39204 Level 3 Est. Patient 16:35:50 CDT Ang Markham MD [facility] CPT-24759 Level 4 Est. Patient 13:53:06 COMMUNICATION CENTER COORDINATOR Ang Markham MD [facility] CPT-72157 Level 3 Est. Patient 08:58:08 COMMUNICATION CENTER COORDINATOR [facility] CPT-73072 Level 3 Est. Patient 18:48:29 CDT Anthony Whitfield [facility] CPT-61354 Level 3 Est. Patient 12:16:59 CDT Gabriel Hunt DO [facility] CPT-00639 Level 3 Est. Patient 18:57:15 CDT Anthony Whitfield [facility] CPT-10143 Level 3 Est. Patient 13:59:22 COMMUNICATION CENTER COORDINATOR Ang Markham MD [facility] CPT-73157 Level 4 Est. Patient 10:36:08 COMMUNICATION CENTER COORDINATOR Ang Markham MD [facility] CPT-04941 Level 3 Est. Patient 16:27:02 CDT Eri Borges MD, PhD [facility] CPT-08414 Level 3 Est. Patient 10:36:43 CDT Octaviano Wilkersonjj [facility] CPT-40394 Level 4 New Patient 08:58:06 CDT [facility] Procedures Code Procedure Name Date Entry Date Standard Description CPT-78096 Abd compl w upright - XRAY USE ONLY 14:09:39 CDT 02/28 CPT-81696 Venipuncture Draw Fee 12:25:15 CDT CPT-81971 Knee 3V 16:48:40 CDT CPT-OV Office Visit 16:27:13 CDT CPT-OV Office Visit 16:21:19 CDT CPT-45894 Sono pelvis non OB uterus ovaries cervix 09:37:28 CDT
--- OUTSIDE RECORDS SUMMARY | 2018-12-22 01:58 | XMS REPORT | Clinical Summary ---
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 INSULIN ASPART 98837299941 Active Celestine Sierraglari HOUSEKEEPING ROOM INSPECTOR Active LEVEMIR FLEXTOUCH 100 UNIT/ML SC SOPN 30 units SC at 12-1pm, 30 units 12-1am INSULIN DETEMIR 93552393144 Active Celestine Sierraglari HOUSEKEEPING ROOM INSPECTOR Active EMBRACE BLOOD GLUCOSE TEST STRP Test blood sugars 4 times daily and PRN 08/05 GLUCOSE BLOOD 44604219704 No Longer Active Celestine Sierraglari HOUSEKEEPING ROOM INSPECTOR Active TRUEPLUS LANCETS 30G MISC 4 a day LANCETS 05457203797 Active Celestine Sierraglari HOUSEKEEPING ROOM INSPECTOR Active TRUETEST TEST STRP check blood sugars 4x/day GLUCOSE BLOOD 36030647034 Active Celestine Sierraglari HOUSEKEEPING ROOM INSPECTOR Active TRUERESULT BLOOD GLUCOSE W/DEVICE KIT check blood sugars 4x a day BLOOD GLUCOSE MONITORING SUPPL 37534829174 Active Celesitne Sierraglari HOUSEKEEPING ROOM INSPECTOR Active LISINOPRIL 5 MG TABS 1 po qd LISINOPRIL 35538638199 Active Ang Markham MD Active COLACE 100 MG CAP 1 po BID PRN Constipation DOCUSATE SODIUM 18384097423 Active Ang Markham MD Active PAXIL 20 MG TAB 1 tablet by mouth daily PAROXETINE HCL 04765065613 Active Ang Markham MD Active GENTAMICIN SULFATE 0.1 % EXT OINT Apply to open sores once a day. GENTAMICIN SULFATE 66747925328 No Longer Active Ang Markham MD Active ZOLPIDEM TARTRATE 10 MG TABS 1 po qHS PRN Insomnia ZOLPIDEM TARTRATE 50156823196 Active Ang Markham MD Active BACTRIM DS 800-160 MG TAB 1 tab by mouth twice daily TRIMETHOPRIM-SULFAMETHOXAZOLE 73255207793 No Longer Active Gloria Dunbar STEAM PIPE FITTER Active LEVEMIR FLEXPEN 100 UNIT/ML SOLN 40 units SC at bedtime INSULIN DETEMIR No Longer Active Susan Arellano RMA Active INSUPEN ULTRAFIN 31G X 6 MM MISC Use with insulin qid. DX: E11.9 INSULIN PEN NEEDLE 80852580976 Active Ang Markham MD Active ZOLOFT 100 MG TAB 1 po qHS SERTRALINE HCL 60488338718 No Longer Active Ang Markham MD Active MELOXICAM 15 MG TABS 1 po qd PRN Knee Pain MELOXICAM 11132063448 No Longer Active Ang Markham MD Active LIPITOR 40 MG TAB 1 po qHS ATORVASTATIN CALCIUM 87835176796 Active Ang Markham MD Active METFORMIN HCL 1000 MG TABS 1 tablet by mouth twice daily METFORMIN HCL 93437367571 Active Ang Markham MD Active CYCLOBENZAPRINE HCL 5 MG TABS 1 po qHS PRN Muscle pain CYCLOBENZAPRINE HCL 63438990227 Active Ang Markham MD Active COLACE 100 MG CAP 1 po BID PRN Constipation DOCUSATE SODIUM 57913288520 No Longer Active Ang Markham MD Active HYDROXYZINE HCL 25 MG TAB 1 TID PRN nerves HYDROXYZINE HCL 80127279424 Active Ang Markham MD Active IBUPROFEN 800 MG TABS 1 tab every 8 hours as needed for pain 2013 IBUPROFEN 29259890963 No Longer Active Ang Markham MD Active NITROFURANTOIN MACROCRYSTAL 100 MG CAPS 1 capsule PO bid x 7 days NITROFURANTOIN MACROCRYSTAL 25140567279 No Longer Active Ang Markham MD Active DIFLUCAN 150 MG TAB 1 qODay x 2 doses FLUCONAZOLE 81310875554 No Longer Active Da Romero APRN Active CEFTIN 500 MG TAB 1 tablet by mouth twice daily for 7 days 07/24 CEFUROXIME AXETIL 23704995735 No Longer Active Anthony CARBONE Active ZOLOFT 50 MG TAB 1 tablet by mouth daily SERTRALINE HCL 93826490964 No Longer Active Anthony CARBONE Active ANUSOL-HC 2.5 % CREAM apply as needed HYDROCORTISONE (RECTAL) 15959250531 No Longer Active Anthony CARBONE Active COLACE 100 MG CAP 1 tab PO BID DOCUSATE SODIUM 22463375394 No Longer Active Anthony CARBONE Active TRINESSA (28) 0.18/0.215/0.25 MG-35 MCG TABS 1 po qd as directed NORGESTIM-ETH ESTRAD TRIPHASIC 14095221609 No Longer Active Anthony CARBONE Active [facility] MELATONIN 5 MG TABS 1-2 po qHS PRN Insomnia MELATONIN 75253260733 No Longer Active Anthony CARBONE Active ACYCLOVIR 400 MG TABS ACYCLOVIR 06644978030 No Longer Active Ang Markham MD Active HYDROXYZINE HCL 25 MG TABS 1 tab PO tid PRN itching HYDROXYZINE HCL 96447317285 No Longer Active Ang Markahm MD Active DIFLUCAN 150 MG TAB 1 qODay x 2 doses FLUCONAZOLE 95081604125 No Longer Active Jillina Frazell STEAM PIPE FITTER Active ACYCLOVIR 400 MG TABS 1 pill twice daily ACYCLOVIR 09129174026 No Longer Active Jillina Frazell STEAM PIPE FITTER Active AZITHROMYCIN 250 MG TABS 2 po qd x 1 day, then 1 po qd x 4 days AZITHROMYCIN 45131911864 No Longer Active Eri Borges MD PhD Active AZITHROMYCIN 250 MG TABS take 2 po day 1 then take1 po days 2-5 AZITHROMYCIN 04455961046 No Longer Active Octaviano CARBONE Active ACYCLOVIR 400 MG TABS 1 po qd ACYCLOVIR 87560338116 No Longer Active Ang Markham MD Active PROZAC 40 MG CAPS 1 cap by mouth at bedtime FLUOXETINE HCL 21887528902 No Longer Active Ang Markham MD Active HYDROXYZINE HCL 25 MG TABS 1 tab PO tid PRN itching HYDROXYZINE HCL 25 MG TABS 179811 HYDROXYZINE HCL Inactive [facility] MELAT[facility]IN 5 MG TABS 1-2 po qHS PRN Insomnia [facility] MELATONIN 5 MG TABS 553930 MELATONIN Inactive TRINESSA (28) 0.18/0.215/0.25 MG-35 MCG TABS 1 po qd as directed TRINESSA (28) 0.18/0.215/0.25 MG-35 MCG TABS 779918 NORGESTIM-ETH ESTRAD TRIPHASIC Inactive COLACE 100 MG CAP 1 tab PO BID COLACE 100 MG CAP 2889380 DOCUSATE SODIUM Inactive ANUSOL-HC 2.5 % CREAM apply as needed ANUSOL-HC 2.5 % CREAM 712101 HYDROCORTISONE (RECTAL) Inactive ZOLOFT 50 MG TAB 1 tablet by mouth daily ZOLOFT 50 MG TAB 338271 SERTRALINE HCL Inactive CEFTIN 500 MG TAB 1 tablet by mouth twice daily for 7 days 07/24 CEFTIN 500 MG TAB 058912 CEFUROXIME AXETIL Inactive NITROFURANTOIN MACROCRYSTAL 100 MG CAPS 1 capsule PO bid x 7 days NITROFURANTOIN MACROCRYSTAL 100 MG CAPS 5273496 NITROFURANTOIN MACROCRYSTAL Inactive IBUPROFEN 800 MG TABS 1 tab every 8 hours as needed for pain 2013 IBUPROFEN 800 MG TABS 208241 IBUPROFEN Inactive COLACE 100 MG CAP 1 po BID PRN Constipation COLACE 100 MG CAP 0295268 DOCUSATE SODIUM Inactive MELOXICAM 15 MG TABS 1 po qd PRN Knee Pain MELOXICAM 15 MG TABS 713843 MELOXICAM Inactive LEVEMIR FLEXPEN 100 UNIT/ML SOLN 40 units SC at bedtime LEVEMIR FLEXPEN 100 UNIT/ML SOLN INSULIN DETEMIR Inactive GENTAMICIN SULFATE 0.1 % EXT OINT Apply to open sores once a day. GENTAMICIN SULFATE 0.1 % EXT OINT 406835 GENTAMICIN SULFATE Inactive EMBRACE BLOOD GLUCOSE TEST STRP Test blood sugars 4 times daily and PRN 08/05 EMBRACE BLOOD GLUCOSE TEST STRP GLUCOSE BLOOD Inactive ACYCLOVIR 400 MG TABS 1 po qd ACYCLOVIR 400 MG TABS 19720928 ACYCLOVIR Inactive AZITHROMYCIN 250 MG TABS take 2 po day 1 then take1 po days 2-5 AZITHROMYCIN 250 MG TABS 5619668 AZITHROMYCIN Inactive AZITHROMYCIN 250 MG TABS 2 po qd x 1 day, then 1 po qd x 4 days AZITHROMYCIN 250 MG TABS 3889961 AZITHROMYCIN Inactive ACYCLOVIR 400 MG TABS 1 pill twice daily ACYCLOVIR 400 MG TABS 19720928 ACYCLOVIR Inactive DIFLUCAN 150 MG TAB 1 qODay x 2 doses DIFLUCAN 150 MG TAB 19760606 FLUCONAZOLE Inactive ACYCLOVIR 400 MG TABS ACYCLOVIR 400 MG TABS 19720928 ACYCLOVIR Inactive DIFLUCAN 150 MG TAB 1 qODay x 2 doses DIFLUCAN 150 MG TAB 053588 FLUCONAZOLE Inactive BACTRIM DS 800-160 MG TAB 1 tab by mouth twice daily BACTRIM DS 800-160 MG TAB 814300 TRIMETHOPRIM-SULFAMETHOXAZOLE Inactive Advance Directives Directive Description Start [...] HGBA1C - Chemistry sodium, serum 134 mmol/L 011-124 1178/03/16 carbon dioxide, venous blood 34.5 mmol/L 21.0-32.0 potassium, serum 4.6 mmol/L 3.5-5.2 chloride, serum 93 mmol/L 98-107 blood glucose 408 mg/dL 65-110 urea nitrogen, blood 3 mg/dL 7-18 creatinine, serum 0.58 mg/dL 0.55-1.30 alanine aminotransferase (SGPT), serum 11 U/L 12-78 aspartate aminotransferase (SGOT), serum 8 U/L 15-37 calcium, serum 9.2 mg/dL 8.5-10.1 bilirubin, serum, total 0.30 mg/dL 0.00-1.00 cholesterol, serum 195 mg/dL 667-242 8131/03/16 triglyceride, serum, fasting 138 mg/dL 30-200 HDL [...] Yes Encounters Code Encounter Date Provider Facility CPT-35234 Level 5 Est. Patient 14:40:14 CDT Celestine PEARCE [facility] CPT-32305 Level 4 Est. Patient 14:36:17 CDT Ang Markham MD [facility] CPT-46613 Level 3 Est. Patient 11:13:47 SLIP DUMPER Ang Markham MD [facility] CPT-45563 Level 3 Est. Patient 11:59:20 SLIP DUMPER Gloria Dunbar [facility] CPT-32186 Level 3 Est. Patient 17:32:37 SLIP DUMPER Gloria Dunbar [facility] CPT-28852 Level 4 Est. Patient 16:39:07 CDT Ang Markham MD [facility] CPT-11914 Level 3 Est. Patient 16:35:50 CDT Ang Markham MD [facility] CPT-29244 Level 4 Est. Patient 13:53:06 SLIP DUMPER Ang Markham MD [facility] CPT-98852 Level 3 Est. Patient 08:58:08 SLIP DUMPER Ang Markham MD [facility] CPT-43718 Level 3 Est. Patient 18:48:29 CDT Anthony Whitfield [facility] CPT-59554 Level 3 Est. Patient 12:16:59 CDT Gabriel Hunt DO [facility] CPT-00831 Level 3 Est. Patient 18:57:15 CDT Anthony CARBONE [facility] CPT-99425 Level 3 Est. Patient 13:59:22 SLIP DUMPER Ang Markham MD [facility] CPT-78332 Level 4 Est. Patient 10:36:08 SLIP DUMPER Ang Markham MD [facility] CPT-50686 Level 3 Est. Patient 16:27:02 CDT Eri Borges MD PhD [facility] CPT-35098 Level 3 Est. Patient 10:36:43 CDT Octaviano Wilkersonjj [facility] CPT-85890 Level 4 New Patient 08:58:06 CDT Ang Markham MD [facility] Procedures Code Procedure Name Date Entry Date Standard Description CPT-57286 Venipuncture Draw Fee 12:25:15 CDT CPT-10175 Knee 3V 16:48:40 CDT CPT-OV Office Visit 16:27:13 CDT CPT-OV Office Visit 16:21:19 CDT CPT-21365 Sono pelvis non OB uterus ovaries cervix 09:37:28 CDT
--- OUTSIDE RECORDS SUMMARY | 2018-12-22 01:59 | XMS REPORT | Clinical Summary ---
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], not stated as uncontrolled [facility] use 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 V58.67 Resolved Ang [...] unspecified hyperlipidemia Hematochezia 578.1 Active Jisteph Romero ANIMAL HERDER Blood in stool Nausea 787.02 Active Jillina Franayal ANIMAL HERDER Nausea alone Otitis externa, acute, left 380.12 Active Gabriel Hunt DO Acute swimmers' ear DEPRESSION ICD-311 Inactive Ang Markham MD Diabetes mellitus ICD-250.00 Inactive Ang Markham MD ABDOMINAL PAIN RIGHT LOWER QUADRANT ICD-789.03 Inactive Eri Borges MD PhD LOM ICD-382.9 Inactive Eri Borges MD PhD PSORIASIS ICD-696.1 Inactive Ang Markham MD AMENORRHEA ICD-626.0 Inactive Eri Borges MD PhD Constipation ICD-564.00 Inactive Ang Markham MD Anal or rectal pain ICD-569.42 Inactive Ang Markham MD Joint crepitus, knee [...] with hypoglycemia ICD-250.81 Inactive 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 ICD-V58.67 Nathan Markham MD Cystitis, acute ICD-595.0 Inactive Ang Markham MD UTI ICD-599.0 Inactive Ang Markham MD Medication List Medication Instructions Start Date Stop Date Generic Name NDC Status Provider Patient Instruction CORTISPORIN [id number] SOLN 4gtts in affected ear QID x 7 days [id number] 78020659253 Active Gabriel Hunt DO Active LEVEMIR FLEXTOUCH 100 UNIT/ML SC SOPN 35 units SC at 12-1pm, 35 units 12-1am INSULIN DETEMIR 89128422900 Active Ang Markham MD Active DOXEPIN HCL 10 MG CAP 1 tablet nightly for the itch DOXEPIN HCL 51764341370 Active Gabriel Hunt DO Active COLACE 100 MG CAP 1 po daily DOCUSATE SODIUM 18930101505 Wiley Hunt DO Active NOVOLOG FLEXPEN 100 UNIT/ML SOPN Take 20 units TID with meals, plus 2u/50 for blood sugars above 150. Ratio vs. Carbs INSULIN ASPART 47527533418 Active Gabriel Hunt DO Active BD PEN NEEDLE DINESH U/F 32G X 4 MM MISC 5 a day INSULIN PEN NEEDLE 64297597358 Active Celestine Sierraglari ROOF PLUMBER Active EMBRACE BLOOD GLUCOSE TEST STRP Test blood sugars 4 times daily and PRN 08/05 GLUCOSE BLOOD 26593090023 No Longer Active Celestine Sierraglari ROOF PLUMBER Active TRUEPLUS LANCETS 30G MISC 4 a day LANCETS 59066991866 Active Celestine Sierraglari ROOF PLUMBER Active TRUETEST TEST STRP check blood sugars 4x/day GLUCOSE BLOOD 27066501567 Active Celestine Sierraglari ROOF PLUMBER Active TRUERESULT BLOOD GLUCOSE W/DEVICE KIT check blood sugars 4x a day BLOOD GLUCOSE MONITORING SUPPL 17383270617 Active Celestine Sierraglari ROOF PLUMBER Active LISINOPRIL 5 MG TABS 1 po qd LISINOPRIL 68600766663 Active Ang Markham MD Active PAXIL 20 MG TAB 1 tablet by mouth daily PAROXETINE HCL 31453180838 Active Ang Markham MD Active GENTAMICIN SULFATE 0.1 % EXT OINT Apply to open sores once a day. GENTAMICIN SULFATE 71871136674 No Longer Active Ang Markham MD Active ZOLPIDEM TARTRATE 10 MG TABS 1 po qHS PRN Insomnia ZOLPIDEM TARTRATE 23473743750 Active Ang Markham MD Active BACTRIM DS 800-160 MG TAB 1 tab by mouth twice daily TRIMETHOPRIM-SULFAMETHOXAZOLE 73503418351 No Longer Active Gloria Dunbar ANIMAL HERDER Active LEVEMIR FLEXPEN 100 UNIT/ML SOLN 40 units SC at bedtime INSULIN DETEMIR No Longer Active Susan Arellano RMA Active INSUPEN ULTRAFIN 31G X 6 MM MISC Use with insulin qid. DX: E11.9 INSULIN PEN NEEDLE 87112296084 Active Ang Markham MD Active ZOLOFT 100 MG TAB 1 po qHS SERTRALINE HCL 80161227455 No Longer Active Ang Markham MD Active MELOXICAM 15 MG TABS 1 po qd PRN Knee Pain MELOXICAM 97354566114 No Longer Active Ang Markham MD Active LIPITOR 40 MG TAB 1 po qHS ATORVASTATIN CALCIUM 54461097390 Active Ang Markham MD Active METFORMIN HCL 1000 MG TABS 1 tablet by mouth twice daily METFORMIN HCL 14141211842 Active Ang Markham MD Active CYCLOBENZAPRINE HCL 5 MG TABS 1 po qHS PRN Muscle pain CYCLOBENZAPRINE HCL 71984138837 Active Ang Markham MD Active COLACE 100 MG CAP 1 po BID PRN Constipation DOCUSATE SODIUM 41555738773 No Longer Active Ang Markham MD Active HYDROXYZINE HCL 25 MG TAB 1 TID PRN nerves HYDROXYZINE HCL 05424404963 Active Ang Markham MD Active IBUPROFEN 800 MG TABS 1 tab every 8 hours as needed for pain 2013 IBUPROFEN 20957185245 No Longer Active Ang Markham MD Active NITROFURANTOIN MACROCRYSTAL 100 MG CAPS 1 capsule PO bid x 7 days NITROFURANTOIN MACROCRYSTAL 94124562222 No Longer Active Ang Markham MD Active DIFLUCAN 150 MG TAB 1 qODay x 2 doses FLUCONAZOLE 72980031147 No Longer Active Da Romero APRN Active CEFTIN 500 MG TAB 1 tablet by mouth twice daily for 7 days 07/24 CEFUROXIME AXETIL 45152986514 No Longer Active Anthony CARBONE Active ZOLOFT 50 MG TAB 1 tablet by mouth daily SERTRALINE HCL 63857431522 No Longer Active Anthony CARBONE Active ANUSOL-HC 2.5 % CREAM apply as needed HYDROCORTISONE (RECTAL) 90908563117 No Longer Active Anthony CARBONE Active COLACE 100 MG CAP 1 tab PO BID DOCUSATE SODIUM 04705504104 No Longer Active Anthony CARBONE Active TRINESSA (28) 0.18/0.215/0.25 MG-35 MCG TABS 1 po qd as directed NORGESTIM-ETH ESTRAD TRIPHASIC 72107828742 No Longer Active Anthony CARBONE Active [facility] MELATONIN 5 MG TABS 1-2 po qHS PRN Insomnia MELATONIN 10248952976 No Longer Active Anthony CARBONE Active ACYCLOVIR 400 MG TABS ACYCLOVIR 68233256452 No Longer Active Ang Markham MD Active HYDROXYZINE HCL 25 MG TABS 1 tab PO tid PRN itching HYDROXYZINE HCL 56571273028 No Longer Active Ang Markham MD Active DIFLUCAN 150 MG TAB 1 qODay x 2 doses FLUCONAZOLE 42296616462 No Longer Active Jillina Frazell ANIMAL HERDER Active ACYCLOVIR 400 MG TABS 1 pill twice daily ACYCLOVIR 60414619396 No Longer Active Jillina Frazell ANIMAL HERDER Active AZITHROMYCIN 250 MG TABS 2 po qd x 1 day, then 1 po qd x 4 days AZITHROMYCIN 03292026750 No Longer Active Eri Borges MD PhD Active AZITHROMYCIN 250 MG TABS take 2 po day 1 then take1 po days 2-5 AZITHROMYCIN 01664438429 No Longer Active Octaviano CARBONE Active ACYCLOVIR 400 MG TABS 1 po qd ACYCLOVIR 01289793427 No Longer Active Ang Markham MD Active PROZAC 40 MG CAPS 1 cap by mouth at bedtime FLUOXETINE HCL 87356342591 No Longer Active Ang Markham MD Active HYDROXYZINE HCL 25 MG TABS 1 tab PO tid PRN itching HYDROXYZINE HCL 25 MG TABS 267866 HYDROXYZINE HCL Inactive [facility] MELATONIN 5 MG TABS 1-2 po qHS PRN Insomnia [facility] MELATONIN 5 MG TABS 789480 MELATONIN Inactive TRINESSA (28) 0.18/0.215/0.25 MG-35 MCG TABS 1 po qd as directed TRINESSA (28) 0.18/0.215/0.25 MG-35 MCG TABS 470244 NORGESTIM-ETH ESTRAD TRIPHASIC Inactive COLACE 100 MG CAP 1 tab PO BID COLACE 100 MG CAP 3917818 DOCUSATE SODIUM Inactive ANUSOL-HC 2.5 % CREAM apply as needed ANUSOL-HC 2.5 % CREAM 830062 HYDROCORTISONE (RECTAL) Inactive ZOLOFT 50 MG TAB 1 tablet by mouth daily ZOLOFT 50 MG TAB 120811 SERTRALINE HCL Inactive CEFTIN 500 MG TAB 1 tablet by mouth twice daily for 7 days 07/24 CEFTIN 500 MG TAB 993720 CEFUROXIME AXETIL Inactive NITROFURANTOIN MACROCRYSTAL 100 MG CAPS 1 capsule PO bid x 7 days NITROFURANTOIN MACROCRYSTAL 100 MG CAPS 5365544 NITROFURANTOIN MACROCRYSTAL Inactive IBUPROFEN 800 MG TABS 1 tab every 8 hours as needed for pain 2013 IBUPROFEN 800 MG TABS 638345 IBUPROFEN Inactive COLACE 100 MG CAP 1 po BID PRN Constipation COLACE 100 MG CAP 8973537 DOCUSATE SODIUM Inactive MELOXICAM 15 MG TABS 1 po qd PRN Knee Pain MELOXICAM 15 MG TABS 954476 MELOXICAM Inactive LEVEMIR FLEXPEN 100 UNIT/ML SOLN 40 units SC at bedtime LEVEMIR FLEXPEN 100 UNIT/ML SOLN INSULIN DETEMIR Inactive GENTAMICIN SULFATE 0.1 % EXT OINT Apply to open sores once a day. GENTAMICIN SULFATE 0.1 % EXT OINT 038331 GENTAMICIN SULFATE Inactive EMBRACE BLOOD GLUCOSE TEST STRP Test blood sugars 4 times daily and PRN 08/05 EMBRACE BLOOD GLUCOSE TEST STRP GLUCOSE BLOOD Inactive ACYCLOVIR 400 MG TABS 1 po qd ACYCLOVIR 400 MG TABS 19720928 ACYCLOVIR Inactive AZITHROMYCIN 250 MG TABS take 2 po day 1 then take1 po days 2-5 AZITHROMYCIN 250 MG TABS 4771021 AZITHROMYCIN Inactive AZITHROMYCIN 250 MG TABS 2 po qd x 1 day, then 1 po qd x 4 days AZITHROMYCIN 250 MG TABS 3161182 AZITHROMYCIN Inactive ACYCLOVIR 400 MG TABS 1 pill twice daily ACYCLOVIR 400 MG TABS 19720928 ACYCLOVIR Inactive DIFLUCAN 150 MG TAB 1 qODay x 2 doses DIFLUCAN 150 MG TAB 19760606 FLUCONAZOLE Inactive ACYCLOVIR 400 MG TABS ACYCLOVIR 400 MG TABS 19720928 ACYCLOVIR Inactive DIFLUCAN 150 MG TAB 1 qODay x 2 doses DIFLUCAN 150 MG TAB 712804 FLUCONAZOLE Inactive BACTRIM DS 800-160 MG TAB 1 tab by mouth twice daily BACTRIM DS 800-160 MG TAB 500974 TRIMETHOPRIM-SULFAMETHOXAZOLE Inactive Advance Directives Directive Description Start [...] HGBA1C - Chemistry sodium, serum 134 mmol/L 417-619 6510/03/16 carbon dioxide, venous blood 34.5 mmol/L 21.0-32.0 potassium, serum 4.6 mmol/L 3.5-5.2 chloride, serum 93 mmol/L 98-107 blood glucose 408 mg/dL 65-110 urea nitrogen, blood 3 mg/dL 7-18 creatinine, serum 0.58 mg/dL 0.55-1.30 alanine aminotransferase (SGPT), serum 11 U/L 12-78 aspartate aminotransferase (SGOT), serum 8 U/L 15-37 calcium, serum 9.2 mg/dL 8.5-10.1 bilirubin, serum, total 0.30 mg/dL 0.00-1.00 cholesterol, serum 195 mg/dL 270-937 9857/03/16 triglyceride, serum, fasting 138 mg/dL 30-200 HDL [...] Panel - Chemistry sodium, serum 133 mmol/L 189-751 1718/06/03 carbon dioxide, venous blood 33.4 mmol/L 21.0-32.0 [...] pH, urine, semiquantitative 5.5 5.0-8.5 Lab Report: [facility] [place] human chorionic gonadotropin, urine, qualitative [...] Yes Encounters Code Encounter Date Provider Facility CPT-38192 Level 3 Est. Patient 17:02:56 CDT Gabriel Hutn [facility] CPT-80384 Level 3 Est. Patient 14:46:22 CDT Da Romero [facility] CPT-67056 Level 4 Est. Patient 13:55:20 CDT Ang Markham MD [facility] CPT-33010 Level 4 Est. Patient 16:10:09 CDT Celestine Huerta [facility] [place] CPT-92670 Level 3 Est. Patient 13:51:24 CDT Ang Markham MD [facility] CPT-29814 Level 3 Est. Patient 18:42:15 CDT Gabriel Hunt [facility] CPT-37623 Level 5 Est. Patient 14:40:14 CDT Celestine Huerta [facility] CPT-41105 Level 4 Est. Patient 14:36:17 CDT Ang Markham MD [facility] CPT-46397 Level 3 Est. 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 CPT-49777 Level 3 Est. 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 Patient 16:39:07 CDT Ang Markham MD [facility] CPT-48016 Level 3 Est. Patient 16:35:50 CDT Ang Markham MD [facility] CPT-78915 Level 4 Est. 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 CPT-83641 Level 3 Est. Patient 18:48:29 CDT Anthony Whitfield [facility] CPT-67617 Level 3 Est. Patient 12:16:59 CDT Gabriel Hunt DO [facility] CPT-27106 Level 3 Est. Patient 18:57:15 CDT Anthony Whitfield [facility] CPT-29004 Level 3 Est. 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 Patient 16:27:02 CDT Eri Borges MD, PhD [facility] CPT-44488 Level 3 Est. Patient 10:36:43 CDT Octaviano Wilkersonjj [facility] CPT-53919 Level 4 New Patient 08:58:06 CDT Ang Markham MD [facility] Procedures Code Procedure Name Date Entry Date Standard Description CPT-43341 Abd compl w upright - XRAY USE ONLY 14:09:39 CDT 02/28 CPT-91045 Venipuncture Draw Fee 12:25:15 CDT CPT-48612 Knee 3V 16:48:40 CDT CPT-OV Office Visit 16:27:13 CDT CPT-OV Office Visit 16:21:19 CDT CPT-95783 Sono pelvis non OB uterus ovaries cervix 09:37:28 CDT
--- OUTSIDE RECORDS SUMMARY | 2018-12-22 02:01 | XMS REPORT | Clinical Summary ---
Author Author Admin, E Organization [facility] Address Unknown Phone Unavailable Allergies, Adverse Reactions, [...] back pain, acute 724.2 Active Shreya Velazquez DIRECTOR TRANSLATION Lumbago Pharyngitis, acute / sore throat 462 Active Shreya Velazquez APRN Acute pharyngitis Cellulitis 682.9 Active Conner Hills MD Cellulitis and abscess of unspecified sites Diarrhea, chronic 787.91 Active Da Romero DIRECTOR TRANSLATION Diarrhea Diabetes mellitus ICD-250.00 Inactive Ang Markham MD AMENORRHEA ICD-626.0 Inactive Eri Borges MD PhD ABDOMINAL PAIN RIGHT LOWER QUADRANT ICD-789.03 Inactive Eri Borges MD PhD LOM ICD-382.9 Inactive Eri Borges MD PhD PSORIASIS ICD-696.1 Inactive Ang Markham MD DEPRESSION ICD-311 Inactive Ang Markham MD Constipation ICD-564.00 Nathan Markham MD Anal or rectal pain ICD-569.42 Nathan Markham MD Joint crepitus, knee ICD-719.66 Inactive Ang Markham MD Knee pain, bilateral ICD-719.46 Nathan Markham MD SINUSITIS, ACUTE ICD-461.9 Nathan Markham MD CANDIDAL VAGINITIS ICD-112.1 Nathan Markham MD Insomnia ICD-780.52 Nathan Markham MD Diabetes mellitus ICD-250.00 Nathan Markham MD Vaginal discharge ICD-623.5 Nathan Markham MD Amenorrhea ICD-626.0 Nathan Markham MD Cystitis, acute ICD-595.0 Nathan Markham MD Diabetes mellitus, type I, with hypoglycemia ICD-250.81 Nathan Markham MD half-way use 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 ICD-V58.67 Nathan Markham MD UTI ICD-599.0 Nathan Markham MD Hematochezia ICD-578.1 Nathan Markham MD Nausea ICD-787.02 Nathan Markham MD 06/26 Otitis externa, acute, left ICD-380.12 Nathan Markham MD Cellulitis, ankle, left ICD-682.6 Inactive Ang Markham MD Abdominal pain ICD-789.00 Inactive Ang Markham MD Medication List Medication Instructions Start Date Stop Date Generic Name NDC Status Provider Patient Instruction COLACE 100 MG CAP 1 po daily DOCUSATE SODIUM 87398180780 No Longer Active Jillina Frazell DIRECTOR TRANSLATION Active CARAFATE 1 GM/10ML ORAL SUSP 5 mg four times daily SUCRALFATE 46749983742 Active Jillina Frazell DIRECTOR TRANSLATION Active ZANTAC 150 MG TAB 1 po BID RANITIDINE HCL 11217314750 No Longer Active Jillina Frazell DIRECTOR TRANSLATION Active HYDROXYZINE HCL 25 MG TAB 1 TID PRN nerves HYDROXYZINE HCL 57855609605 No Longer Active Jillina Frazell DIRECTOR TRANSLATION Active CLINDAMYCIN HCL 300 MG ORAL CAPS 1 four times a day CLINDAMYCIN HCL 59363966672 No Longer Active Jillina Frazell DIRECTOR TRANSLATION Active TYLENOL WITH CODEINE #3 300-30 MG TABS 1 every four hours as needed for pain ACETAMINOPHEN-CODEINE 13422829484 Active Conner Hills MD Active LEVAQUIN 500 MG TABS 1 daily for infection LEVOFLOXACIN 42417468647 No Longer Active Conner Hills MD Active DOXEPIN HCL 10 MG CAP 1 tablet nightly for the itch DOXEPIN HCL 91793924524 No Longer Active Conner Hills MD Active TRESIBA FLEXTOUCH 200 UNIT/ML SC SOPN Take 70 units daily at mid-night to 1 am. INSULIN DEGLUDEC 24170833623 No Longer Active Conner Hills MD Active METFORMIN HCL 1000 MG TABS 1 tablet by mouth twice daily METFORMIN HCL 10381324452 No Longer Active Conner Hills MD Active LIPITOR 40 MG TAB 1 po qHS ATORVASTATIN CALCIUM 48167266318 No Longer Active Conner Hills MD Active GEMFIBROZIL 600 MG TABS 1 po BID GEMFIBROZIL 78709013328 No Longer Active Conner Hills MD Active CORTISPORIN 3.5-42257-8 SOLN 4gtts in affected ear QID x 7 days [id number] 01864988261 No Longer Active Ang Markham MD Active LEVEMIR FLEXTOUCH 100 UNIT/ML SC SOPN 35 units SC at 12-1pm, 35 units 12-1am INSULIN DETEMIR 90775474659 No Longer Active Celestine PEARCE Active REGLAN 10 MG TAB 0.5 po TID 30min prior to meals METOCLOPRAMIDE HCL 50742213151 Active Ang Markham MD Active NOVOLOG FLEXPEN 100 UNIT/ML SOPN Take 20 units TID with meals, plus 2u/50 for blood sugars above 150. Ratio vs. Carbs INSULIN ASPART 04475082625 Active Gabriel Hunt DO Active BD PEN NEEDLE DINESH U/F 32G X 4 MM MISC 5 a day INSULIN PEN NEEDLE 26789063207 Active Malstepheneh Ziglari LAUNDRY MARKER SUPERVISOR Active EMBRACE BLOOD GLUCOSE TEST STRP Test blood sugars 4 times daily and PRN 08/05 GLUCOSE BLOOD 39223090195 No Longer Active Malstepheneh Rigoglari LAUNDRY MARKER SUPERVISOR Active TRUEPLUS LANCETS 30G MISC 4 a day LANCETS 64143804515 Active Maliheh Ziglari LAUNDRY MARKER SUPERVISOR Active TRUETEST TEST STRP check blood sugars 4x/day GLUCOSE BLOOD 12263589375 Active Maliheh Ziglari LAUNDRY MARKER SUPERVISOR Active TRUERESULT BLOOD GLUCOSE W/DEVICE KIT check blood sugars 4x a day BLOOD GLUCOSE MONITORING SUPPL 35214269049 Active Malstepheneh Ziglari LAUNDRY MARKER SUPERVISOR Active LISINOPRIL 5 MG TABS 1 po qd LISINOPRIL 50515805615 Active Ang Markham MD Active PAXIL 20 MG TAB 1 tablet by mouth daily PAROXETINE HCL 50635603487 Active Ang Markham MD Active GENTAMICIN SULFATE 0.1 % EXT OINT Apply to open sores once a day. GENTAMICIN SULFATE 64239074418 No Longer Active Ang Markham MD Active ZOLPIDEM TARTRATE 10 MG TABS 1 po qHS PRN Insomnia ZOLPIDEM TARTRATE 97413345584 Active Ang Markham MD Active BACTRIM DS 800-160 MG TAB 1 tab by mouth twice daily TRIMETHOPRIM-SULFAMETHOXAZOLE 63732573372 No Longer Active Gloria Yokum DIRECTOR TRANSLATION Active LEVEMIR FLEXPEN 100 UNIT/ML SOLN 40 units SC at bedtime INSULIN DETEMIR No Longer Active Susan Adan RMA Active INSUPEN ULTRAFIN 31G X 6 MM MISC Use with insulin qid. DX: E11.9 INSULIN PEN NEEDLE 33861536970 Active Ang Markham MD Active ZOLOFT 100 MG TAB 1 po qHS SERTRALINE HCL 08521473966 No Longer Active Ang Markham MD Active MELOXICAM 15 MG TABS 1 po qd PRN Knee Pain MELOXICAM 36651404709 No Longer Active Ang Markham MD Active CYCLOBENZAPRINE HCL 5 MG TABS 1 po qHS PRN Muscle pain CYCLOBENZAPRINE HCL 78997997908 Active Ang Markham MD Active COLACE 100 MG CAP 1 po BID PRN Constipation DOCUSATE SODIUM 21168608274 No Longer Active Ang Markham MD Active IBUPROFEN 800 MG TABS 1 tab every 8 hours as needed for pain 2013 IBUPROFEN 22104747390 No Longer Active Ang Markham MD Active NITROFURANTOIN MACROCRYSTAL 100 MG CAPS 1 capsule PO bid x 7 days NITROFURANTOIN MACROCRYSTAL 00361832930 No Longer Active Ang Markham MD Active DIFLUCAN 150 MG TAB 1 qODay x 2 doses FLUCONAZOLE 23601295872 No Longer Active Da Romero APRN Active CEFTIN 500 MG TAB 1 tablet by mouth twice daily for 7 days 07/24 CEFUROXIME AXETIL 76300299343 No Longer Active Anthony CARBONE Active ZOLOFT 50 MG TAB 1 tablet by mouth daily SERTRALINE HCL 30518819696 No Longer Active Anthony CARBONE Active ANUSOL-HC 2.5 % CREAM apply as needed HYDROCORTISONE (RECTAL) 22270481201 No Longer Active Anthony CARBONE Active COLACE 100 MG CAP 1 tab PO BID DOCUSATE SODIUM 76478188363 No Longer Active Anthony CARBONE Active TRINESSA (28) 0.18/0.215/0.25 MG-35 MCG TABS 1 po qd as directed NORGESTIM-ETH ESTRAD TRIPHASIC 87253987030 No Longer Active Anthony CARBONE Active [facility] MELATONIN 5 MG TABS 1-2 po qHS PRN Insomnia MELATONIN 74722371247 No Longer Active Anthony CARBONE Active ACYCLOVIR 400 MG TABS ACYCLOVIR 88760360901 No Longer Active Ang Markham MD Active HYDROXYZINE HCL 25 MG TABS 1 tab PO tid PRN itching HYDROXYZINE HCL 91182450815 No Longer Active Ang Markham MD Active DIFLUCAN 150 MG TAB 1 qODay x 2 doses FLUCONAZOLE 05188226412 No Longer Active Da Romero APRN Active ACYCLOVIR 400 MG TABS 1 pill twice daily ACYCLOVIR 25479557779 No Longer Active Josephllpiedad Romero APRN Active AZITHROMYCIN 250 MG TABS 2 po qd x 1 day, then 1 po qd x 4 days AZITHROMYCIN 39922961485 No Longer Active Eri Borges MD PhD Active AZITHROMYCIN 250 MG TABS take 2 po day 1 then take1 po days 2-5 AZITHROMYCIN 24123735791 No Longer Active Octaviano CARBONE Active ACYCLOVIR 400 MG TABS 1 po qd ACYCLOVIR 36492837998 No Longer Active Ang Markham MD Active PROZAC 40 MG CAPS 1 cap by mouth at bedtime FLUOXETINE HCL 25795590508 No Longer Active Ang Markham MD Active HYDROXYZINE HCL 25 MG TABS 1 tab PO tid PRN itching HYDROXYZINE HCL 25 MG TABS 441586 HYDROXYZINE HCL Inactive [facility] MELATONIN 5 MG TABS 1-2 po qHS PRN Insomnia [facility] MELATONIN 5 MG TABS 710268 MELATONIN Inactive TRINESSA (28) 0.18/0.215/0.25 MG-35 MCG TABS 1 po qd as directed TRINESSA (28) 0.18/0.215/0.25 MG-35 MCG TABS 082322 NORGESTIM-ETH ESTRAD TRIPHASIC Inactive COLACE 100 MG CAP 1 tab PO BID COLACE 100 MG CAP 4018407 DOCUSATE SODIUM Inactive ANUSOL-HC 2.5 % CREAM apply as needed ANUSOL-HC 2.5 % CREAM 372065 HYDROCORTISONE (RECTAL) Inactive ZOLOFT 50 MG TAB 1 tablet by mouth daily ZOLOFT 50 MG TAB 844201 SERTRALINE HCL Inactive CEFTIN 500 MG TAB 1 tablet by mouth twice daily for 7 days 07/24 CEFTIN 500 MG TAB 229393 CEFUROXIME AXETIL Inactive NITROFURANTOIN MACROCRYSTAL 100 MG CAPS 1 capsule PO bid x 7 days NITROFURANTOIN MACROCRYSTAL 100 MG CAPS 4511729 NITROFURANTOIN MACROCRYSTAL Inactive IBUPROFEN 800 MG TABS 1 tab every 8 hours as needed for pain 2013 IBUPROFEN 800 MG TABS 980093 IBUPROFEN Inactive COLACE 100 MG CAP 1 po BID PRN Constipation COLACE 100 MG CAP 3178124 DOCUSATE SODIUM Inactive MELOXICAM 15 MG TABS 1 po qd PRN Knee Pain MELOXICAM 15 MG TABS 615510 MELOXICAM Inactive LEVEMIR FLEXPEN 100 UNIT/ML SOLN 40 units SC at bedtime LEVEMIR FLEXPEN 100 UNIT/ML SOLN INSULIN DETEMIR Inactive GENTAMICIN SULFATE 0.1 % EXT OINT Apply to open sores once a day. GENTAMICIN SULFATE 0.1 % EXT OINT 357968 GENTAMICIN SULFATE Inactive EMBRACE BLOOD GLUCOSE TEST STRP Test blood sugars 4 times daily and PRN 08/05 EMBRACE BLOOD GLUCOSE TEST STRP GLUCOSE BLOOD Inactive LEVEMIR FLEXTOUCH 100 UNIT/ML SC SOPN 35 units SC at 12-1pm, 35 units 12-1am LEVEMIR FLEXTOUCH 100 UNIT/ML SC SOPN INSULIN DETEMIR Inactive CORTISPORIN 3.5-29658-0 SOLN 4gtts in affected ear QID x 7 days CORTISPORIN 3.5-31067-1 SOLN 190051 JTIKTICN-OAYTKHAJO-NN Inactive GEMFIBROZIL 600 MG TABS 1 po BID GEMFIBROZIL 600 MG TABS 267312 GEMFIBROZIL Inactive LIPITOR 40 MG TAB 1 po qHS LIPITOR 40 MG TAB 814832 ATORVASTATIN CALCIUM Inactive METFORMIN HCL 1000 MG TABS 1 tablet by mouth twice daily METFORMIN HCL 1000 MG TABS 472952 METFORMIN HCL Inactive TRESIBA FLEXTOUCH 200 UNIT/ML SC SOPN Take 70 units daily at mid-night to 1 am. TRESIBA FLEXTOUCH 200 UNIT/ML SC SOPN INSULIN DEGLUDEC Inactive DOXEPIN HCL 10 MG CAP 1 tablet nightly for the itch DOXEPIN HCL 10 MG CAP 7351329 DOXEPIN HCL Inactive LEVAQUIN 500 MG TABS 1 daily for infection LEVAQUIN 500 MG TABS 552546 LEVOFLOXACIN Inactive CLINDAMYCIN HCL 300 MG ORAL CAPS 1 four times a day CLINDAMYCIN HCL 300 MG ORAL CAPS 421278 CLINDAMYCIN HCL Inactive HYDROXYZINE HCL 25 MG TAB 1 TID PRN nerves HYDROXYZINE HCL 25 MG TAB 731519 HYDROXYZINE HCL Inactive ZANTAC 150 MG TAB 1 po BID ZANTAC 150 MG TAB 944348 RANITIDINE HCL Inactive COLACE 100 MG CAP 1 po daily COLACE 100 MG CAP 8006730 DOCUSATE SODIUM Inactive ACYCLOVIR 400 MG TABS 1 po qd ACYCLOVIR 400 MG TABS 19720928 ACYCLOVIR Inactive AZITHROMYCIN 250 MG TABS take 2 po day 1 then take1 po days 2-5 AZITHROMYCIN 250 MG TABS 5138848 AZITHROMYCIN Inactive AZITHROMYCIN 250 MG TABS 2 po qd x 1 day, then 1 po qd x 4 days AZITHROMYCIN 250 MG TABS 9390805 AZITHROMYCIN Inactive ACYCLOVIR 400 MG TABS 1 pill twice daily ACYCLOVIR 400 MG TABS 19720928 ACYCLOVIR Inactive DIFLUCAN 150 MG TAB 1 qODay x 2 doses DIFLUCAN 150 MG TAB 19760606 FLUCONAZOLE Inactive ACYCLOVIR 400 MG TABS ACYCLOVIR 400 MG TABS 19720928 ACYCLOVIR Inactive DIFLUCAN 150 MG TAB 1 qODay x 2 doses DIFLUCAN 150 MG TAB 323085 FLUCONAZOLE Inactive BACTRIM DS 800-160 MG TAB [...] Panel - Chemistry sodium, serum 130 mmol/L 398-927 6931/10/12 carbon dioxide, venous blood 28.1 mmol/L 21.0-32.0 potassium, serum 3.9 mmol/L 3.5-5.2 chloride, serum 91 mmol/L 98-107 blood glucose 547 mg/dL 65-110 urea nitrogen, blood 3 mg/dL 7-18 creatinine, serum 0.78 mg/dL 0.55-1.30 alanine aminotransferase (SGPT), serum 11 U/L 12-78 aspartate aminotransferase (SGOT), serum 7 U/L 15-37 calcium, serum 8.8 mg/dL 8.5-10.1 bilirubin, serum, total 0.30 mg/dL 0.00-1.00 cholesterol, serum 221 mg/dL 637-647 2662/10/12 triglyceride, serum, fasting 590 mg/dL 30-200 HDL cholesterol, serum 45 mg/dL 32-96 LDL cholesterol, serum 58 mg/dL 0-130 Encounters Code Encounter Date Provider Facility CPT-26670 Level 3 Est. Patient 14:52:33 CDT Da Romero [facility] CPT-19753 Level 3 Est. Patient 10:22:30 CDT Conner Hills MD [facility] CPT-39801 Level 3 Est. Patient 15:02:19 CDT Shreya Velazquez [facility] CPT-92926 Level 3 Est. Patient 13:22:25 CDT Gabriel Hunt [facility] CPT-10078 Level 4 Est. Patient 16:02:22 CDT Ang Markham MD [facility] CPT-97162 Level 3 Est. Patient 16:21:23 CDT Celestine Huerta [facility] CPT-30401 Level 3 Est. Patient 17:02:56 CDT Gabriel Hunt [facility] CPT-96906 Level 3 Est. Patient 14:46:22 CDT Da Romero [facility] CPT-72233 Level 4 Est. Patient 13:55:20 CDT Ang Markham MD [facility] CPT-43467 Level 4 Est. Patient 16:10:09 CDT Celestine Huerta [facility] CPT-67301 Level 3 Est. Patient 13:51:24 CDT Ang Markham MD [facility] CPT-94666 Level 3 Est. Patient 18:42:15 CDT Gabriel Hunt [facility] CPT-84370 Level 5 Est. Patient 14:40:14 CDT Celestine Huerta RAMSES [facility] CPT-05360 Level 4 Est. Patient 14:36:17 CDT Ang Markham MD [facility] CPT-64416 Level 3 Est. Patient 11:13:47 HADOOP CONSULTANT Ang Markham MD [facility] CPT-62677 Level 3 Est. Patient 11:59:20 HADOOP CONSULTANT Gloria Dunbar [facility] CPT-36732 Level 3 Est. Patient 17:32:37 HADOOP CONSULTANT Gloria Dunbar [facility] CPT-81619 Level 4 Est. Patient 16:39:07 CDT Ang Markham MD [facility] CPT-80543 Level 3 Est. Patient 16:35:50 CDT Ang Markham MD [facility] CPT-90605 Level 4 Est. Patient 13:53:06 HADOOP CONSULTANT Ang Markham MD [facility] CPT-64441 Level 3 Est. Patient 08:58:08 HADOOP CONSULTANT Ang Markham MD [facility] CPT-29113 Level 3 Est. Patient 18:48:29 CDT Anthony Whitfield [facility] CPT-27602 Level 3 Est. Patient 12:16:59 CDT Gabriel Hunt DO [facility] CPT-94644 Level 3 Est. Patient 18:57:15 CDT Anthony Whitfield [facility] CPT-57487 Level 3 Est. Patient 13:59:22 HADOOP CONSULTANT Ang Markham MD [facility] CPT-46062 Level 4 Est. Patient 10:36:08 HADOOP CONSULTANT Ang Markham MD [facility] CPT-34793 Level 3 Est. Patient 16:27:02 CDT Eri Borges MD PhD [facility] CPT-27482 Level 3 Est. Patient 10:36:43 CDT Octaviano CARBONE [facility] CPT-21032 Level 4 New Patient 08:58:06 CDT Ang Markham MD [facility] Procedures Code Procedure Name Date Entry Date Standard Description CPT-56291 LS spine comp w obliques - XRAY USE ONLY 15:34:48 CDT CPT-95299 Lipid - LAB USE ONLY 15:28:39 CDT CPT-35387 CMP - LAB USE ONLY 15:28:39 CDT CPT-94618 Venipuncture Draw Fee 15:28:39 CDT CPT-45578 Abd compl w upright - XRAY USE ONLY 14:09:39 CDT 02/28 CPT-37930 Venipuncture Draw Fee 12:25:15 CDT CPT-94665 Knee 3V 16:48:40 CDT CPT-OV Office Visit 16:27:13 CDT CPT-OV Office Visit 16:21:19 CDT CPT-29407 Sono pelvis non OB uterus ovaries cervix 09:37:28 CDT
--- OUTSIDE RECORDS SUMMARY | 2018-12-22 02:02 | XMS REPORT | Clinical Summary ---
[...] back pain, acute 724.2 Active Shreya Velazquez LASER CUTTER Lumbago Pharyngitis, acute / sore throat 462 [...] MG CAP 1 po daily DOCUSATE SODIUM 62004425431 No Longer Active Jillina Frazell LASER CUTTER Active CARAFATE 1 GM/10ML ORAL SUSP 5 mg four times daily SUCRALFATE 59909483201 Active Jillina Frazell LASER CUTTER Active ZANTAC 150 MG TAB 1 po BID RANITIDINE HCL 51484485806 No Longer Active Jillina Frazell LASER CUTTER Active HYDROXYZINE HCL 25 MG TAB 1 TID PRN nerves HYDROXYZINE HCL 54128846798 No Longer Active Jillina Frazell LASER CUTTER Active CLINDAMYCIN HCL 300 MG ORAL CAPS 1 four times a day CLINDAMYCIN HCL 04765812460 No Longer Active Jillina Frazell LASER CUTTER Active TYLENOL WITH CODEINE #3 300-30 MG TABS 1 every four hours as needed for pain ACETAMINOPHEN-CODEINE 62943282468 Active oCnner Hills MD Active LEVAQUIN 500 MG TABS 1 daily for infection LEVOFLOXACIN 84998051142 No Longer Active Conner Hills MD Active DOXEPIN HCL 10 MG CAP 1 tablet nightly for the itch DOXEPIN HCL 41413323774 No Longer Active Conner Hills MD Active TRESIBA FLEXTOUCH 200 UNIT/ML SC SOPN Take 70 units daily at mid-night to 1 am. INSULIN DEGLUDEC 49652060856 No Longer Active Conner Hills MD Active METFORMIN HCL 1000 MG TABS 1 tablet by mouth twice daily METFORMIN HCL 50853278204 No Longer Active Conner Hills MD Active LIPITOR 40 MG TAB 1 po qHS ATORVASTATIN CALCIUM 85577447234 No Longer Active Conner Hills MD Active GEMFIBROZIL 600 MG TABS 1 po BID GEMFIBROZIL 80412117781 No Longer Active Conner Hills MD Active CORTISPORIN 3.5-27043-3 SOLN 4gtts in affected ear QID x 7 days [id number] 37396521512 No Longer Active Ang Markham MD Active LEVEMIR FLEXTOUCH 100 UNIT/ML SC SOPN 35 units SC at 12-1pm, 35 units 12-1am INSULIN DETEMIR 80857464923 No Longer Active Celestine PEARCE Active REGLAN 10 MG TAB 0.5 po TID 30min prior to meals METOCLOPRAMIDE HCL 23387796998 Active Ang Markham MD Active NOVOLOG FLEXPEN 100 UNIT/ML SOPN Take 20 units TID with meals, plus 2u/50 for blood sugars above 150. Ratio vs. Carbs INSULIN ASPART 23993204175 Active Gabriel Hunt DO Active BD PEN NEEDLE DINESH U/F 32G X 4 MM MISC 5 a day INSULIN PEN NEEDLE 94659637163 Active Malstepheneh Ziglari DASHBOARD DEVELOPER Active EMBRACE BLOOD GLUCOSE TEST STRP Test blood sugars 4 times daily and PRN 08/05 GLUCOSE BLOOD 51338941896 No Longer Active Malstepheneh Rigoglari DASHBOARD DEVELOPER Active TRUEPLUS LANCETS 30G MISC 4 a day LANCETS 75142866640 Active Maliheh Ziglari DASHBOARD DEVELOPER Active TRUETEST TEST STRP check blood sugars 4x/day GLUCOSE BLOOD 08625576009 Active Maliheh Ziglari DASHBOARD DEVELOPER Active TRUERESULT BLOOD GLUCOSE W/DEVICE KIT check blood sugars 4x a day BLOOD GLUCOSE MONITORING SUPPL 04998678831 Active Malstepheneh Ziglari DASHBOARD DEVELOPER Active LISINOPRIL 5 MG TABS 1 po qd LISINOPRIL 15829972225 Active Ang Markham MD Active PAXIL 20 MG TAB 1 tablet by mouth daily PAROXETINE HCL 94994002741 Active Ang Markham MD Active GENTAMICIN SULFATE 0.1 % EXT OINT Apply to open sores once a day. GENTAMICIN SULFATE 16992294203 No Longer Active Ang Markham MD Active ZOLPIDEM TARTRATE 10 MG TABS 1 po qHS PRN Insomnia ZOLPIDEM TARTRATE 52231801403 Active Ang Markham MD Active BACTRIM DS 800-160 MG TAB 1 tab by mouth twice daily TRIMETHOPRIM-SULFAMETHOXAZOLE 86061192018 No Longer Active Gloria Yokum LASER CUTTER Active LEVEMIR FLEXPEN 100 UNIT/ML SOLN 40 units SC at bedtime INSULIN DETEMIR No Longer Active Susan Adan RMA Active INSUPEN ULTRAFIN 31G X 6 MM MISC Use with insulin qid. DX: E11.9 INSULIN PEN NEEDLE 34282080613 Active Ang Markham MD Active ZOLOFT 100 MG TAB 1 po qHS SERTRALINE HCL 69943461828 No Longer Active Ang Markham MD Active MELOXICAM 15 MG TABS 1 po qd PRN Knee Pain MELOXICAM 86901420092 No Longer Active Ang Markham MD Active CYCLOBENZAPRINE HCL 5 MG TABS 1 po qHS PRN Muscle pain CYCLOBENZAPRINE HCL 23774026897 Active Ang Markham MD Active COLACE 100 MG CAP 1 po BID PRN Constipation DOCUSATE SODIUM 45755211982 No Longer Active Ang Markham MD Active IBUPROFEN 800 MG TABS 1 tab every 8 hours as needed for pain 2013 IBUPROFEN 04693443472 No Longer Active Ang Markham MD Active NITROFURANTOIN MACROCRYSTAL 100 MG CAPS 1 capsule PO bid x 7 days NITROFURANTOIN MACROCRYSTAL 82714780082 No Longer Active Ang Markham MD Active DIFLUCAN 150 MG TAB 1 qODay x 2 doses FLUCONAZOLE 95564548584 No Longer Active Da Romero APRN Active CEFTIN 500 MG TAB 1 tablet by mouth twice daily for 7 days 07/24 CEFUROXIME AXETIL 31752498133 No Longer Active Anthony CARBONE Active ZOLOFT 50 MG TAB 1 tablet by mouth daily SERTRALINE HCL 17125003614 No Longer Active Anthony CARBONE Active ANUSOL-HC 2.5 % CREAM apply as needed HYDROCORTISONE (RECTAL) 80861294110 No Longer Active Anthony CARBONE Active COLACE 100 MG CAP 1 tab PO BID DOCUSATE SODIUM 10291005412 No Longer Active Anthony CARBONE Active TRINESSA (28) 0.18/0.215/0.25 MG-35 MCG TABS 1 po qd as directed NORGESTIM-ETH ESTRAD TRIPHASIC 07016022476 No Longer Active Anthony CARBONE Active [facility] MELATONIN 5 MG TABS 1-2 po qHS PRN Insomnia MELATONIN 23356542387 No Longer Active Anthony CARBONE Active ACYCLOVIR 400 MG TABS ACYCLOVIR 22518206309 No Longer Active Ang Markham MD Active HYDROXYZINE HCL 25 MG TABS 1 tab PO tid PRN itching HYDROXYZINE HCL 39181600813 No Longer Active Ang Markham MD Active DIFLUCAN 150 MG TAB 1 qODay x 2 doses FLUCONAZOLE 84599020002 No Longer Active Da Romero APRN Active ACYCLOVIR 400 MG TABS 1 pill twice daily ACYCLOVIR 76100867695 No Longer Active Josephllpiedad Romero APRN Active AZITHROMYCIN 250 MG TABS 2 po qd x 1 day, then 1 po qd x 4 days AZITHROMYCIN 40195215241 No Longer Active Eri Borges MD PhD Active AZITHROMYCIN 250 MG TABS take 2 po day 1 then take1 po days 2-5 AZITHROMYCIN 60880858895 No Longer Active Octaviano CARBONE Active ACYCLOVIR 400 MG TABS 1 po qd ACYCLOVIR 95993397732 No Longer Active Ang Markham MD Active PROZAC 40 MG CAPS 1 cap by mouth at bedtime FLUOXETINE HCL 78900837529 No Longer Active Ang Markham MD Active HYDROXYZINE HCL 25 MG TABS 1 tab PO tid PRN itching HYDROXYZINE HCL 25 MG TABS 169587 HYDROXYZINE HCL Inactive [facility] MELATONIN 5 MG TABS 1-2 po qHS PRN Insomnia [facility] MELATONIN 5 MG TABS 898826 MELATONIN Inactive TRINESSA (28) 0.18/0.215/0.25 MG-35 MCG TABS 1 po qd as directed TRINESSA (28) 0.18/0.215/0.25 MG-35 MCG TABS 921516 NORGESTIM-ETH ESTRAD TRIPHASIC Inactive COLACE 100 MG CAP 1 tab PO BID COLACE 100 MG CAP 6985945 DOCUSATE SODIUM Inactive ANUSOL-HC 2.5 % CREAM apply as needed ANUSOL-HC 2.5 % CREAM 094056 HYDROCORTISONE (RECTAL) Inactive ZOLOFT 50 MG TAB 1 tablet by mouth daily ZOLOFT 50 MG TAB 716289 SERTRALINE HCL Inactive CEFTIN 500 MG TAB 1 tablet by mouth twice daily for 7 days 07/24 CEFTIN 500 MG TAB 289264 CEFUROXIME AXETIL Inactive NITROFURANTOIN MACROCRYSTAL 100 MG CAPS 1 capsule PO bid x 7 days NITROFURANTOIN MACROCRYSTAL 100 MG CAPS 8603746 NITROFURANTOIN MACROCRYSTAL Inactive IBUPROFEN 800 MG TABS 1 tab every 8 hours as needed for pain 2013 IBUPROFEN 800 MG TABS 161655 IBUPROFEN Inactive COLACE 100 MG CAP 1 po BID PRN Constipation COLACE 100 MG CAP 0051586 DOCUSATE SODIUM Inactive MELOXICAM 15 MG TABS 1 po qd PRN Knee Pain MELOXICAM 15 MG TABS 552768 MELOXICAM Inactive LEVEMIR FLEXPEN 100 UNIT/ML SOLN 40 units SC at bedtime LEVEMIR FLEXPEN 100 UNIT/ML SOLN INSULIN DETEMIR Inactive GENTAMICIN SULFATE 0.1 % EXT OINT Apply to open sores once a day. GENTAMICIN SULFATE 0.1 % EXT OINT 147372 GENTAMICIN SULFATE Inactive EMBRACE BLOOD GLUCOSE TEST STRP Test blood sugars 4 times daily and PRN 08/05 EMBRACE BLOOD GLUCOSE TEST STRP GLUCOSE BLOOD Inactive LEVEMIR FLEXTOUCH 100 UNIT/ML SC SOPN 35 units SC at 12-1pm, 35 units 12-1am LEVEMIR FLEXTOUCH 100 UNIT/ML SC SOPN INSULIN DETEMIR Inactive CORTISPORIN 3.5-27738-3 SOLN 4gtts in affected ear QID x 7 days CORTISPORIN 3.5-52109-5 SOLN 571417 [id number] Inactive GEMFIBROZIL 600 MG TABS 1 po BID GEMFIBROZIL 600 MG TABS 833357 GEMFIBROZIL Inactive LIPITOR 40 MG TAB 1 po qHS LIPITOR 40 MG TAB 893942 ATORVASTATIN CALCIUM Inactive METFORMIN HCL 1000 MG TABS 1 tablet by mouth twice daily METFORMIN HCL 1000 MG TABS 092452 METFORMIN HCL Inactive TRESIBA FLEXTOUCH 200 UNIT/ML SC SOPN Take 70 units daily at mid-night to 1 am. TRESIBA FLEXTOUCH 200 UNIT/ML SC SOPN INSULIN DEGLUDEC Inactive DOXEPIN HCL 10 MG CAP 1 tablet nightly for the itch DOXEPIN HCL 10 MG CAP 9382133 DOXEPIN HCL Inactive LEVAQUIN 500 MG TABS 1 daily for infection LEVAQUIN 500 MG TABS 961137 LEVOFLOXACIN Inactive CLINDAMYCIN HCL 300 MG ORAL CAPS 1 four times a day CLINDAMYCIN HCL 300 MG ORAL CAPS 263957 CLINDAMYCIN HCL Inactive HYDROXYZINE HCL 25 MG TAB 1 TID PRN nerves HYDROXYZINE HCL 25 MG TAB 136155 HYDROXYZINE HCL Inactive ZANTAC 150 MG TAB 1 po BID ZANTAC 150 MG TAB 515046 RANITIDINE HCL Inactive COLACE 100 MG CAP 1 po daily COLACE 100 MG CAP 0743745 DOCUSATE SODIUM Inactive ACYCLOVIR 400 MG TABS 1 po qd ACYCLOVIR 400 MG TABS 19720928 ACYCLOVIR Inactive AZITHROMYCIN 250 MG TABS take 2 po day 1 then take1 po days 2-5 AZITHROMYCIN 250 MG TABS 591455 AZITHROMYCIN Inactive AZITHROMYCIN 250 MG TABS 2 po qd x 1 day, then 1 po qd x 4 days AZITHROMYCIN 250 MG TABS 633634 AZITHROMYCIN Inactive ACYCLOVIR 400 MG TABS 1 pill twice daily ACYCLOVIR 400 MG TABS 19720928 ACYCLOVIR Inactive DIFLUCAN 150 MG TAB 1 qODay x 2 doses DIFLUCAN 150 MG TAB 19760606 FLUCONAZOLE Inactive ACYCLOVIR 400 MG TABS ACYCLOVIR 400 MG TABS 19720928 ACYCLOVIR Inactive DIFLUCAN 150 MG TAB 1 qODay x 2 doses DIFLUCAN 150 MG TAB 600555 FLUCONAZOLE Inactive BACTRIM DS 800-160 MG TAB 1 tab by mouth twice daily BACTRIM DS 800-160 MG TAB 041291 TRIMETHOPRIM-SULFAMETHOXAZOLE Inactive Advance Directives Directive Description Start [...] Panel - Chemistry sodium, serum 130 mmol/L 674-835 9769/10/12 carbon dioxide, venous blood 28.1 mmol/L 21.0-32.0 potassium, serum 3.9 mmol/L 3.5-5.2 chloride, serum 91 mmol/L 98-107 blood glucose 547 mg/dL 65-110 urea nitrogen, blood 3 mg/dL 7-18 creatinine, serum 0.78 mg/dL 0.55-1.30 alanine aminotransferase (SGPT), serum 11 U/L 12-78 aspartate aminotransferase (SGOT), serum 7 U/L 15-37 calcium, serum 8.8 mg/dL 8.5-10.1 bilirubin, serum, total 0.30 mg/dL 0.00-1.00 cholesterol, serum 221 mg/dL 798-033 7186/10/12 triglyceride, serum, fasting 590 mg/dL 30-200 HDL cholesterol, serum 45 mg/dL 32-96 LDL cholesterol, serum 58 mg/dL 0-130 Encounters Code Encounter Date Provider Facility CPT-20299 Level 3 Est. Patient 14:52:33 CDT Da Romero [facility] CPT-91725 Level 3 Est. Patient 10:22:30 CDT Conner Hills MD [facility] CPT-28445 Level 3 Est. Patient 15:02:19 CDT Shreya Velazquez [facility] CPT-40540 Level 3 Est. Patient 13:22:25 CDT Gabriel Hunt [facility] CPT-27693 Level 4 Est. Patient 16:02:22 CDT Ang Markham MD [facility] CPT-65129 Level 3 Est. Patient 16:21:23 CDT Celestine Huerta [facility] CPT-37456 Level 3 Est. Patient 17:02:56 CDT Gabriel Hunt [facility] CPT-91094 Level 3 Est. Patient 14:46:22 CDT Da Romero [facility] CPT-59745 Level 4 Est. Patient 13:55:20 CDT Ang Markham MD [facility] CPT-74223 Level 4 Est. Patient 16:10:09 CDT Celestine Huerta [facility] CPT-08730 Level 3 Est. Patient 13:51:24 CDT Ang Markham MD [facility] CPT-58664 Level 3 Est. Patient 18:42:15 CDT Gabriel Hunt [facility] CPT-46942 Level 5 Est. Patient 14:40:14 CDT Celestine Huerta RAMSES [facility] CPT-53261 Level 4 Est. Patient 14:36:17 CDT Ang Markham MD [facility] CPT-01582 Level 3 Est. Patient 11:13:47 BRUSHING OPERATOR Ang Markham MD [facility] CPT-25997 Level 3 Est. Patient 11:59:20 BRUSHING OPERATOR Gloria Dunbar [facility] CPT-17878 Level 3 Est. Patient 17:32:37 BRUSHING OPERATOR Gloria Dunbar [facility] CPT-50118 Level 4 Est. Patient 16:39:07 CDT Ang Markham MD [facility] CPT-35203 Level 3 Est. Patient 16:35:50 CDT Ang Markham MD [facility] CPT-87112 Level 4 Est. Patient 13:53:06 BRUSHING OPERATOR Ang Markham MD [facility] CPT-12135 Level 3 Est. Patient 08:58:08 BRUSHING OPERATOR Ang Markham MD [facility] CPT-37433 Level 3 Est. Patient 18:48:29 CDT Anthony Whitfield [facility] CPT-90414 Level 3 Est. Patient 12:16:59 CDT Gabriel Hunt DO [facility] CPT-56901 Level 3 Est. Patient 18:57:15 CDT Anthony Whitfield [facility] CPT-82703 Level 3 Est. Patient 13:59:22 BRUSHING OPERATOR Ang Markham MD [facility] CPT-79866 Level 4 Est. Patient 10:36:08 BRUSHING OPERATOR Ang Markham MD [facility] CPT-17204 Level 3 Est. Patient 16:27:02 CDT Eri Borges MD PhD [facility] CPT-28304 Level 3 Est. Patient 10:36:43 CDT Octaviano CARBONE [facility] CPT-97160 Level 4 New Patient 08:58:06 CDT Ang Markham MD [facility] Procedures Code Procedure Name Date Entry Date Standard Description CPT-33854 LS spine comp w obliques - XRAY USE ONLY 15:34:48 CDT CPT-57630 Lipid - LAB USE ONLY 15:28:39 CDT CPT-02266 CMP - LAB USE ONLY 15:28:39 CDT CPT-29302 Venipuncture Draw Fee 15:28:39 CDT CPT-28608 Abd compl w upright - XRAY USE ONLY 14:09:39 CDT 02/28 CPT-70798 Venipuncture Draw Fee 12:25:15 CDT CPT-33708 Knee 3V 16:48:40 CDT CPT-OV Office Visit 16:27:13 CDT CPT-OV Office Visit 16:21:19 CDT CPT-72412 Sono pelvis non OB uterus ovaries cervix 09:37:28 CDT
--- OUTSIDE RECORDS SUMMARY | 2018-12-22 02:03 | XMS REPORT | Clinical Summary ---
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 Ratio vs. Carbs INSULIN ASPART 98262914369 Active Gabriel Hunt DO Active BD PEN NEEDLE DINESH U/F 32G X 4 MM MISC 5 a day INSULIN PEN NEEDLE 30378886565 Active Maliheh Ziglari METAL FABRICATOR Active LEVEMIR FLEXTOUCH 100 UNIT/ML SC SOPN 30 units SC at 12-1pm, 30 units 12-1am INSULIN DETEMIR 90374341398 Active Maliheh Ziglari METAL FABRICATOR Active EMBRACE BLOOD GLUCOSE TEST STRP Test blood sugars 4 times daily and PRN 08/05 GLUCOSE BLOOD 84317146089 No Longer Active Maliheh Ziglari METAL FABRICATOR Active TRUEPLUS LANCETS 30G MISC 4 a day LANCETS 18835120966 Active Maliheh Ziglari METAL FABRICATOR Active TRUETEST TEST STRP check blood sugars 4x/day GLUCOSE BLOOD 98697934939 Active Maliheh Ziglari METAL FABRICATOR Active TRUERESULT BLOOD GLUCOSE W/DEVICE KIT check blood sugars 4x a day BLOOD GLUCOSE MONITORING SUPPL 47308983591 Active Maliheh Ziglari METAL FABRICATOR Active LISINOPRIL 5 MG TABS 1 po qd LISINOPRIL 76991126242 Active Ang Markham MD Active PAXIL 20 MG TAB 1 tablet by mouth daily PAROXETINE HCL 63534765594 Active Ang Markham MD Active GENTAMICIN SULFATE 0.1 % EXT OINT Apply to open sores once a day. GENTAMICIN SULFATE 69595822082 No Longer Active Ang Markham MD Active ZOLPIDEM TARTRATE 10 MG TABS 1 po qHS PRN Insomnia ZOLPIDEM TARTRATE 30834653730 Active Ang Markham MD Active BACTRIM DS 800-160 MG TAB 1 tab by mouth twice daily TRIMETHOPRIM-SULFAMETHOXAZOLE 57828351612 No Longer Active Gloria Dunbar INSPECTION MANAGER Active LEVEMIR FLEXPEN 100 UNIT/ML SOLN 40 units SC at bedtime INSULIN DETEMIR No Longer Active Susan Arellano RMA Active INSUPEN ULTRAFIN 31G X 6 MM MISC Use with insulin qid. DX: E11.9 INSULIN PEN NEEDLE 08213434339 Active Ang Markham MD Active ZOLOFT 100 MG TAB 1 po qHS SERTRALINE HCL 53314024428 No Longer Active Ang Markham MD Active MELOXICAM 15 MG TABS 1 po qd PRN Knee Pain MELOXICAM 75473647546 No Longer Active Ang Markham MD Active LIPITOR 40 MG TAB 1 po qHS ATORVASTATIN CALCIUM 03015963216 Active Ang Markham MD Active METFORMIN HCL 1000 MG TABS 1 tablet by mouth twice daily METFORMIN HCL 09006908570 Active Ang Markham MD Active CYCLOBENZAPRINE HCL 5 MG TABS 1 po qHS PRN Muscle pain CYCLOBENZAPRINE HCL 53555879231 Active Ang Markham MD Active COLACE 100 MG CAP 1 po BID PRN Constipation DOCUSATE SODIUM 47976010027 No Longer Active Ang Markham MD Active HYDROXYZINE HCL 25 MG TAB 1 TID PRN nerves HYDROXYZINE HCL 10191168908 Active Ang Markham MD Active IBUPROFEN 800 MG TABS 1 tab every 8 hours as needed for pain 2013 IBUPROFEN 59657784735 No Longer Active Ang Markham MD Active NITROFURANTOIN MACROCRYSTAL 100 MG CAPS 1 capsule PO bid x 7 days NITROFURANTOIN MACROCRYSTAL 32216757654 No Longer Active Ang Markham MD Active DIFLUCAN 150 MG TAB 1 qODay x 2 doses FLUCONAZOLE 87068589555 No Longer Active Da Romero INSPECTION MANAGER Active CEFTIN 500 MG TAB 1 tablet by mouth twice daily for 7 days 07/24 CEFUROXIME AXETIL 38420723170 No Longer Active Anthony CARBONE Active ZOLOFT 50 MG TAB 1 tablet by mouth daily SERTRALINE HCL 50583887143 No Longer Active Anthony CARBONE Active ANUSOL-HC 2.5 % CREAM apply as needed HYDROCORTISONE (RECTAL) 49133611920 No Longer Active Anthony CARBONE Active COLACE 100 MG CAP 1 tab PO BID DOCUSATE SODIUM 08323663881 No Longer Active Anthony CARBONE Active TRINESSA (28) 0.18/0.215/0.25 MG-35 MCG TABS 1 po qd as directed NORGESTIM-ETH ESTRAD TRIPHASIC 89449380635 No Longer Active Anthony CARBONE Active [facility] MELATONIN 5 MG TABS 1-2 po qHS PRN Insomnia MELATONIN 44612996626 No Longer Active Anthony CARBONE Active ACYCLOVIR 400 MG TABS ACYCLOVIR 52465727405 No Longer Active Ang Markham MD Active HYDROXYZINE HCL 25 MG TABS 1 tab PO tid PRN itching HYDROXYZINE HCL 75567791067 No Longer Active Ang Markham MD Active DIFLUCAN 150 MG TAB 1 qODay x 2 doses FLUCONAZOLE 93935865552 No Longer Active Da Romero APRN Active ACYCLOVIR 400 MG TABS 1 pill twice daily ACYCLOVIR 44909711258 No Longer Active Da Romero APRN Active AZITHROMYCIN 250 MG TABS 2 po qd x 1 day, then 1 po qd x 4 days AZITHROMYCIN 88623241071 No Longer Active Eri Borges MD PhD Active AZITHROMYCIN 250 MG TABS take 2 po day 1 then take1 po days 2-5 AZITHROMYCIN 89929470598 No Longer Active Octaviano CARBONE Active ACYCLOVIR 400 MG TABS 1 po qd ACYCLOVIR 11810556930 No Longer Active Ang Markham MD Active PROZAC 40 MG CAPS 1 cap by mouth at bedtime FLUOXETINE HCL 38116481976 No Longer Active Ang Markham MD Active HYDROXYZINE HCL 25 MG TABS 1 tab PO tid PRN itching HYDROXYZINE HCL 25 MG TABS 842070 HYDROXYZINE HCL Inactive [facility] MELATONIN 5 MG TABS 1-2 po qHS PRN Insomnia [facility] MELATONIN 5 MG TABS 289917 MELATONIN Inactive TRINESSA (28) 0.18/0.215/0.25 MG-35 MCG TABS 1 po qd as directed TRINESSA (28) 0.18/0.215/0.25 MG-35 MCG TABS 057314 NORGESTIM-ETH ESTRAD TRIPHASIC Inactive COLACE 100 MG CAP 1 tab PO BID COLACE 100 MG CAP 8541384 DOCUSATE SODIUM Inactive ANUSOL-HC 2.5 % CREAM apply as needed ANUSOL-HC 2.5 % CREAM 103054 HYDROCORTISONE (RECTAL) Inactive ZOLOFT 50 MG TAB 1 tablet by mouth daily ZOLOFT 50 MG TAB 118402 SERTRALINE HCL Inactive CEFTIN 500 MG TAB 1 tablet by mouth twice daily for 7 days 07/24 CEFTIN 500 MG TAB 316205 CEFUROXIME AXETIL Inactive NITROFURANTOIN MACROCRYSTAL 100 MG CAPS 1 capsule PO bid x 7 days NITROFURANTOIN MACROCRYSTAL 100 MG CAPS 6388432 NITROFURANTOIN MACROCRYSTAL Inactive IBUPROFEN 800 MG TABS 1 tab every 8 hours as needed for pain 2013 IBUPROFEN 800 MG TABS 364600 IBUPROFEN Inactive COLACE 100 MG CAP 1 po BID PRN Constipation COLACE 100 MG CAP 0196055 DOCUSATE SODIUM Inactive MELOXICAM 15 MG TABS 1 po qd PRN Knee Pain MELOXICAM 15 MG TABS 020356 MELOXICAM Inactive LEVEMIR FLEXPEN 100 UNIT/ML SOLN 40 units SC at bedtime LEVEMIR FLEXPEN 100 UNIT/ML SOLN INSULIN DETEMIR Inactive GENTAMICIN SULFATE 0.1 % EXT OINT Apply to open sores once a day. GENTAMICIN SULFATE 0.1 % EXT OINT 371137 GENTAMICIN SULFATE Inactive EMBRACE BLOOD GLUCOSE TEST STRP Test blood sugars 4 times daily and PRN 08/05 EMBRACE BLOOD GLUCOSE TEST STRP GLUCOSE BLOOD Inactive ACYCLOVIR 400 MG TABS 1 po qd ACYCLOVIR 400 MG TABS 19720928 ACYCLOVIR Inactive AZITHROMYCIN 250 MG TABS take 2 po day 1 then take1 po days 2-5 AZITHROMYCIN 250 MG TABS 1401704 AZITHROMYCIN Inactive AZITHROMYCIN 250 MG TABS 2 po qd x 1 day, then 1 po qd x 4 days AZITHROMYCIN 250 MG TABS 2108681 AZITHROMYCIN Inactive ACYCLOVIR 400 MG TABS 1 pill twice daily ACYCLOVIR 400 MG TABS 19720928 ACYCLOVIR Inactive DIFLUCAN 150 MG TAB 1 qODay x 2 doses DIFLUCAN 150 MG TAB 179809 FLUCONAZOLE Inactive ACYCLOVIR 400 MG TABS ACYCLOVIR 400 MG TABS 19720928 ACYCLOVIR Inactive DIFLUCAN 150 MG TAB 1 qODay x 2 doses DIFLUCAN 150 MG TAB 712050 FLUCONAZOLE Inactive BACTRIM DS 800-160 MG TAB 1 tab by mouth twice daily BACTRIM DS 800-160 MG TAB 208884 TRIMETHOPRIM-SULFAMETHOXAZOLE Inactive Advance Directives Directive Description Start [...] HGBA1C - Chemistry sodium, serum 134 mmol/L 604-366 9425/03/16 carbon dioxide, venous blood 34.5 mmol/L 21.0-32.0 potassium, serum 4.6 mmol/L 3.5-5.2 chloride, serum 93 mmol/L 98-107 blood glucose 408 mg/dL 65-110 urea nitrogen, blood 3 mg/dL 7-18 creatinine, serum 0.58 mg/dL 0.55-1.30 alanine aminotransferase (SGPT), serum 11 U/L 12-78 aspartate aminotransferase (SGOT), serum 8 U/L 15-37 calcium, serum 9.2 mg/dL 8.5-10.1 bilirubin, serum, total 0.30 mg/dL 0.00-1.00 cholesterol, serum 195 mg/dL 702-523 0629/03/16 triglyceride, serum, fasting 138 mg/dL 30-200 HDL [...] dipstick Negative Negative sodium, serum 133 mmol/L 457-304 3835/06/03 carbon dioxide, venous blood 33.4 mmol/L 21.0-32.0 [...] pH, urine, semiquantitative 5.5 5.0-8.5 Lab Report: [facility] [place] Chemistry human chorionic gonadotropin, urine, qualitative (urine test) Negative Negative Office Visit: Diabetes Visit - Chemistry cholesterol, target level 200 mg/dL triglyceride, target level 200 mg/dL HDL cholesterol, serum, target level 35 mg/dL LDL target level 100 mg/dL home glucose monitor utilized Yes Encounters Code Encounter Date Provider Facility CPT-41396 Level 3 Est. Patient 13:51:24 CDT Ang Markham MD [facility] CPT-26829 Level 3 Est. Patient 18:42:15 CDT Gabriel Hunt DO [facility] CPT-06896 Level 5 Est. Patient 14:40:14 CDT Celestine PEARCE [facility] CPT-63867 Level 4 Est. Patient 14:36:17 CDT Ang Markham MD [facility] CPT-85856 Level 3 Est. Patient 11:13:47 COUNTY JUDGE Ang Markham MD [facility] CPT-13899 Level 3 Est. Patient 11:59:20 COUNTY JUDGE Gloria Dunbar [facility] CPT-56737 Level 3 Est. Patient 17:32:37 COUNTY JUDGE Gloria Dunbar [facility] CPT-49851 Level 4 Est. Patient 16:39:07 CDT Ang Markham MD [facility] CPT-75824 Level 3 Est. Patient 16:35:50 CDT Ang Markham MD [facility] CPT-79178 Level 4 Est. Patient 13:53:06 COUNTY JUDGE Ang Markham MD [facility] CPT-99033 Level 3 Est. Patient 08:58:08 COUNTY JUDGE Ang Markham MD [facility] CPT-35245 Level 3 Est. Patient 18:48:29 CDT Anthony Whitfield [facility] CPT-21366 Level 3 Est. Patient 12:16:59 CDT Gabriel Hunt DO [facility] CPT-74256 Level 3 Est. Patient 18:57:15 CDT Anthony Whitfield [facility] CPT-59442 Level 3 Est. Patient 13:59:22 COUNTY JUDGE Ang Markham MD [facility] CPT-71198 Level 4 Est. Patient 10:36:08 COUNTY JUDGE Ang Markham MD [facility] CPT-51780 Level 3 Est. Patient 16:27:02 CDT Eri Borges MD PhD [facility] CPT-96969 Level 3 Est. Patient 10:36:43 CDT Octaviano Dempsey [facility] CPT-78159 Level 4 New Patient 08:58:06 CDT Ang Markham MD [facility] Procedures Code Procedure Name Date Entry Date Standard Description CPT-83900 Abd compl w upright - XRAY USE ONLY 14:09:39 CDT 02/28 CPT-16904 Venipuncture Draw Fee 12:25:15 CDT CPT-99449 Knee 3V 16:48:40 CDT CPT-OV Office Visit 16:27:13 CDT CPT-OV Office Visit 16:21:19 CDT CPT-35687 Sono pelvis non OB uterus ovaries cervix 09:37:28 CDT
--- OUTSIDE RECORDS SUMMARY | 2018-12-22 02:04 | XMS REPORT | Clinical Summary ---
Author Author Admin, QIE Organization [employer] Address Unknown Phone Unavailable Allergies, Adverse Reactions, [...] 5 MG TABS 1 po qd LISINOPRIL 35557354381 Active Ang Markham MD Active NOVOLOG FLEXPEN 100 UNIT/ML SOPN Take 20 units TID with meals INSULIN ASPART 42779105028 Active Ang Markham MD Active LEVEMIR FLEXTOUCH 100 UNIT/ML SC SOPN 60 units SC nightly INSULIN DETEMIR 15473596969 Active Codey Hdez MD Active COLACE 100 MG CAP 1 po BID PRN Constipation DOCUSATE SODIUM 27538594740 Active Ang Markham MD Active PAXIL 20 MG TAB 1 tablet by mouth daily PAROXETINE HCL 30835618572 Active Ang Markham MD Active GENTAMICIN SULFATE 0.1 % EXT OINT Apply to open sores once a day. GENTAMICIN SULFATE 88522032975 No Longer Active Ang Markham MD Active ZOLPIDEM TARTRATE 10 MG TABS 1 po qHS PRN Insomnia ZOLPIDEM TARTRATE 14440010129 Active Ang Markham MD Active BACTRIM DS 800-160 MG TAB 1 tab by mouth twice daily TRIMETHOPRIM-SULFAMETHOXAZOLE 71490600963 No Longer Active Gloriajuliette Dunbar PRESENTATION TEAM MEMBER Active LEVEMIR FLEXPEN 100 UNIT/ML SOLN 40 units SC at bedtime INSULIN DETEMIR No Longer Active Susankalen Arellano RMA Active INSUPEN ULTRAFIN 31G X 6 MM MISC Use with insulin qid. DX: E11.9 INSULIN PEN NEEDLE 72356882639 Active Ang Markham MD Active ZOLOFT 100 MG TAB 1 po qHS SERTRALINE HCL 10921002383 No Longer Active Ang Markham MD Active MELOXICAM 15 MG TABS 1 po qd PRN Knee Pain MELOXICAM 15665933280 No Longer Active Ang Markham MD Active LIPITOR 40 MG TAB 1 po qHS ATORVASTATIN CALCIUM 06443972642 Active Ang Markham MD Active METFORMIN HCL 1000 MG TABS 1 tablet by mouth twice daily METFORMIN HCL 98929078438 Active Ang Markham MD Active CYCLOBENZAPRINE HCL 5 MG TABS 1 po qHS PRN Muscle pain CYCLOBENZAPRINE HCL 05717118524 Active Ang Markham MD Active COLACE 100 MG CAP 1 po BID PRN Constipation DOCUSATE SODIUM 00964692280 No Longer Active Ang Markham MD Active HYDROXYZINE HCL 25 MG TAB 1 TID PRN nerves HYDROXYZINE HCL 99077206139 Active Ang Markham MD Active IBUPROFEN 800 MG TABS 1 tab every 8 hours as needed for pain 2013 IBUPROFEN 48277744128 No Longer Active Ang Markham MD Active NITROFURANTOIN MACROCRYSTAL 100 MG CAPS 1 capsule PO bid x 7 days NITROFURANTOIN MACROCRYSTAL 98790094669 No Longer Active Ang Markham MD Active DIFLUCAN 150 MG TAB 1 qODay x 2 doses FLUCONAZOLE 94243717368 No Longer Active Da Romero APRN Active CEFTIN 500 MG TAB 1 tablet by mouth twice daily for 7 days 07/24 CEFUROXIME AXETIL 64627800829 No Longer Active Anthony CARBONE Active ZOLOFT 50 MG TAB 1 tablet by mouth daily SERTRALINE HCL 65877262880 No Longer Active Anthony CARBONE Active ANUSOL-HC 2.5 % CREAM apply as needed HYDROCORTISONE (RECTAL) 91769423085 No Longer Active Anthony CARBONE Active COLACE 100 MG CAP 1 tab PO BID DOCUSATE SODIUM 51739447006 No Longer Active Anthony CARBONE Active TRINESSA (28) 0.18/0.215/0.25 MG-35 MCG TABS 1 po qd as directed NORGESTIM-ETH ESTRAD TRIPHASIC 96633136786 No Longer Active Anthony CARBONE Active [facility] MELATONIN 5 MG TABS 1-2 po qHS PRN Insomnia MELATONIN 11924770213 No Longer Active Anthony CARBONE Active ACYCLOVIR 400 MG TABS ACYCLOVIR 89633496704 No Longer Active Ang Markham MD Active EMBRACE BLOOD GLUCOSE TEST STRP Test blood sugars 4 times daily and PRN 08/05 GLUCOSE BLOOD 95227295243 Active Ang Markham MD Active HYDROXYZINE HCL 25 MG TABS 1 tab PO tid PRN itching HYDROXYZINE HCL 48384993745 No Longer Active Ang Markham MD Active DIFLUCAN 150 MG TAB 1 qODay x 2 doses FLUCONAZOLE 37717228941 No Longer Active Jillina Frazell PRESENTATION TEAM MEMBER Active ACYCLOVIR 400 MG TABS 1 pill twice daily ACYCLOVIR 65920331680 No Longer Active Da Romero APRN Active AZITHROMYCIN 250 MG TABS 2 po qd x 1 day, then 1 po qd x 4 days AZITHROMYCIN 94110324477 No Longer Active Eri Borges MD PhD Active AZITHROMYCIN 250 MG TABS take 2 po day 1 then take1 po days 2-5 AZITHROMYCIN 44860009261 No Longer Active Octaviano Dempsey PA Active ACYCLOVIR 400 MG TABS 1 po qd ACYCLOVIR 48597552111 No Longer Active Ang Markham MD Active PROZAC 40 MG CAPS 1 cap by mouth at bedtime FLUOXETINE HCL 21191988944 No Longer Active Ang Markham MD Active HYDROXYZINE HCL 25 MG TABS 1 tab PO tid PRN itching HYDROXYZINE HCL 25 MG TABS 613528 HYDROXYZINE HCL Inactive [facility] MELATONIN 5 MG TABS 1-2 po qHS PRN Insomnia [facility] MELATONIN 5 MG TABS 092487 MELATONIN Inactive TRINESSA (28) 0.18/0.215/0.25 MG-35 MCG TABS 1 po qd as directed TRINESSA (28) 0.18/0.215/0.25 MG-35 MCG TABS 973988 NORGESTIM-ETH ESTRAD TRIPHASIC Inactive COLACE 100 MG CAP 1 tab PO BID COLACE 100 MG CAP 8439756 DOCUSATE SODIUM Inactive ANUSOL-HC 2.5 % CREAM apply as needed ANUSOL-HC 2.5 % CREAM 926864 HYDROCORTISONE (RECTAL) Inactive ZOLOFT 50 MG TAB 1 tablet by mouth daily ZOLOFT 50 MG TAB 038223 SERTRALINE HCL Inactive CEFTIN 500 MG TAB 1 tablet by mouth twice daily for 7 days 07/24 CEFTIN 500 MG TAB 629597 CEFUROXIME AXETIL Inactive NITROFURANTOIN MACROCRYSTAL 100 MG CAPS 1 capsule PO bid x 7 days NITROFURANTOIN MACROCRYSTAL 100 MG CAPS 2750518 NITROFURANTOIN MACROCRYSTAL Inactive IBUPROFEN 800 MG TABS 1 tab every 8 hours as needed for pain 2013 IBUPROFEN 800 MG TABS 182368 IBUPROFEN Inactive COLACE 100 MG CAP 1 po BID PRN Constipation COLACE 100 MG CAP 8923883 DOCUSATE SODIUM Inactive MELOXICAM 15 MG TABS 1 po qd PRN Knee Pain MELOXICAM 15 MG TABS 215062 MELOXICAM Inactive LEVEMIR FLEXPEN 100 UNIT/ML SOLN 40 units SC at bedtime LEVEMIR FLEXPEN 100 UNIT/ML SOLN INSULIN DETEMIR Inactive GENTAMICIN SULFATE 0.1 % EXT OINT Apply to open sores once a day. GENTAMICIN SULFATE 0.1 % EXT OINT 914052 GENTAMICIN SULFATE Inactive ACYCLOVIR 400 MG TABS 1 po qd ACYCLOVIR 400 MG TABS 19720928 ACYCLOVIR Inactive AZITHROMYCIN 250 MG TABS take 2 po day 1 then take1 po days 2-5 AZITHROMYCIN 250 MG TABS 8861813 AZITHROMYCIN Inactive AZITHROMYCIN 250 MG TABS 2 po qd x 1 day, then 1 po qd x 4 days AZITHROMYCIN 250 MG TABS 2689538 AZITHROMYCIN Inactive ACYCLOVIR 400 MG TABS 1 pill twice daily ACYCLOVIR 400 MG TABS 19720928 ACYCLOVIR Inactive DIFLUCAN 150 MG TAB 1 qODay x 2 doses DIFLUCAN 150 MG TAB 548405 FLUCONAZOLE Inactive ACYCLOVIR 400 MG TABS ACYCLOVIR 400 MG TABS 793705 ACYCLOVIR Inactive DIFLUCAN 150 MG TAB 1 qODay x 2 doses DIFLUCAN 150 MG TAB 19760606 FLUCONAZOLE Inactive BACTRIM DS 800-160 MG TAB 1 tab by mouth twice daily BACTRIM DS 800-160 MG TAB 250151 TRIMETHOPRIM-SULFAMETHOXAZOLE Inactive Advance Directives Directive Description Start [...] HGBA1C - Chemistry sodium, serum 134 mmol/L 482-731 3658/03/16 carbon dioxide, venous blood 34.5 mmol/L 21.0-32.0 potassium, serum 4.6 mmol/L 3.5-5.2 chloride, serum 93 mmol/L 98-107 blood glucose 408 mg/dL 65-110 urea nitrogen, blood 3 mg/dL 7-18 creatinine, serum 0.58 mg/dL 0.55-1.30 alanine aminotransferase (SGPT), serum 11 U/L 12-78 aspartate aminotransferase (SGOT), serum 8 U/L 15-37 calcium, serum 9.2 mg/dL 8.5-10.1 bilirubin, serum, total 0.30 mg/dL 0.00-1.00 cholesterol, serum 195 mg/dL 992-418 0292/03/16 triglyceride, serum, fasting 138 mg/dL 30-200 HDL [...] 0-19 Encounters Code Encounter Date Provider Facility CPT-26251 Level 4 Est. Patient 14:36:17 CDT Ang Markham MD [facility] CPT-93151 Level 3 Est. Patient 11:13:47 SIGNAL ENGINEER Ang Markham MD [facility] CPT-20713 Level 3 Est. Patient 11:59:20 SIGNAL ENGINEER Gloria Dunbar [facility] CPT-41427 Level 3 Est. Patient 17:32:37 SIGNAL ENGINEER Gloria Dunbar [facility] CPT-50011 Level 4 Est. Patient 16:39:07 CDT Ang Markham MD [facility] CPT-84932 Level 3 Est. Patient 16:35:50 CDT Ang Markham MD [facility] CPT-28598 Level 4 Est. Patient 13:53:06 SIGNAL ENGINEER Ang Markham MD [facility] CPT-27386 Level 3 Est. Patient 08:58:08 SIGNAL ENGINEER Ang Markham MD [facility] CPT-28514 Level 3 Est. Patient 18:48:29 CDT Anthony Whitfield [facility] CPT-06102 Level 3 Est. Patient 12:16:59 CDT Gabriel Hunt DO [facility] CPT-28608 Level 3 Est. Patient 18:57:15 CDT Anthony Whitfield [facility] CPT-76515 Level 3 Est. Patient 13:59:22 SIGNAL ENGINEER Ang Markahm MD [facility] CPT-06709 Level 4 Est. Patient 10:36:08 SIGNAL ENGINEER Ang Markham MD [facility] CPT-83583 Level 3 Est. Patient 16:27:02 CDT Eri Borges MD [facility] CPT-71695 Level 3 Est. Patient 10:36:43 CDT Octaviano Roselyn [facility] CPT-14078 Level 4 New Patient 08:58:06 CDT Ang Markham MD [facility] Procedures Code Procedure Name Date Entry Date Standard Description CPT-66109 Venipuncture Draw Fee 12:25:15 CDT CPT-05699 Knee 3V 16:48:40 CDT CPT-OV Office Visit 16:27:13 CDT CPT-OV Office Visit 16:21:19 CDT CPT-45919 Sono pelvis non OB uterus ovaries cervix 09:37:28 CDT
--- OUTSIDE RECORDS SUMMARY | 2018-12-22 02:04 | XMS REPORT | Clinical Summary ---
Author Author Admin, QIE Organization [facility] Address Unknown Phone Unavailable Allergies, Adverse Reactions, [...] I [juvenile type], not stated as uncontrolled long term care pharmacist use 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 V58.67 Active Celestine [...] uncontrolled DEPRESSION ICD-311 Inactive Ang Markham MD ABDOMINAL PAIN RIGHT [...] pain, bilateral ICD-719.46 Inactive Ang Markham MD AMENORRHEA ICD-626.0 Inactive Eri Borges MD PhD Diabetes mellitus ICD-250.00 Inactive Ang Markham MD Vaginal discharge ICD-623.5 Inactive Ang Markham MD Amenorrhea ICD-626.0 Inactive Ang Markham MD Cellulitis, ankle, left ICD-682.6 Inactive Ang Markham MD Cystitis, acute ICD-595.0 Inactive Ang Markham MD UTI ICD-599.0 Inactive Ang Markham MD Medication List Medication Instructions Start Date Stop Date Generic Name NDC Status Provider Patient Instruction DOXEPIN HCL 10 MG CAP 1 tablet nightly for the itch DOXEPIN HCL 79752950302 Active Gabriel Hunt DO Active COLACE 100 MG CAP 1 po daily DOCUSATE SODIUM 44251089947 Active Gabriel Hunt DO Active NOVOLOG FLEXPEN 100 UNIT/ML SOPN Take 20 units TID with meals, plus 2u/50 for blood sugars above 150. Ratio vs. Carbs INSULIN ASPART 55112913419 Active Gabriel Hunt DO Active BD PEN NEEDLE DINESH U/F 32G X 4 MM MISC 5 a day INSULIN PEN NEEDLE 91920351153 Active Maliheh Ziglari OFFICE ASSISTANT RECEPTIONIST Active LEVEMIR FLEXTOUCH 100 UNIT/ML SC SOPN 30 units SC at 12-1pm, 30 units 12-1am INSULIN DETEMIR 03529968779 Active Maliheh Ziglari OFFICE ASSISTANT RECEPTIONIST Active EMBRACE BLOOD GLUCOSE TEST STRP Test blood sugars 4 times daily and PRN 08/05 GLUCOSE BLOOD 56606642828 No Longer Active Maliheh Ziglari OFFICE ASSISTANT RECEPTIONIST Active TRUEPLUS LANCETS 30G MISC 4 a day LANCETS 39429913372 Active Maliheh Ziglari OFFICE ASSISTANT RECEPTIONIST Active TRUETEST TEST STRP check blood sugars 4x/day GLUCOSE BLOOD 02868800522 Active Maliheh Ziglari OFFICE ASSISTANT RECEPTIONIST Active TRUERESULT BLOOD GLUCOSE W/DEVICE KIT check blood sugars 4x a day BLOOD GLUCOSE MONITORING SUPPL 81772101784 Active Maliheh Ziglari OFFICE ASSISTANT RECEPTIONIST Active LISINOPRIL 5 MG TABS 1 po qd LISINOPRIL 71593964589 Active Ang Markham MD Active PAXIL 20 MG TAB 1 tablet by mouth daily PAROXETINE HCL 25449340113 Active Ang Markham MD Active GENTAMICIN SULFATE 0.1 % EXT OINT Apply to open sores once a day. GENTAMICIN SULFATE 60109270935 No Longer Active Ang Markham MD Active ZOLPIDEM TARTRATE 10 MG TABS 1 po qHS PRN Insomnia ZOLPIDEM TARTRATE 37907233328 Active Ang Markham MD Active BACTRIM DS 800-160 MG TAB 1 tab by mouth twice daily TRIMETHOPRIM-SULFAMETHOXAZOLE 43931769274 No Longer Active Gloria Dunbar BLENDING SUPERVISOR Active LEVEMIR FLEXPEN 100 UNIT/ML SOLN 40 units SC at bedtime INSULIN DETEMIR No Longer Active Susan Braggart RMA Active INSUPEN ULTRAFIN 31G X 6 MM MISC Use with insulin qid. DX: E11.9 INSULIN PEN NEEDLE 03411620510 Active Ang Markham MD Active ZOLOFT 100 MG TAB 1 po qHS SERTRALINE HCL 69241849868 No Longer Active Ang Markham MD Active MELOXICAM 15 MG TABS 1 po qd PRN Knee Pain MELOXICAM 24730577113 No Longer Active Ang Markham MD Active LIPITOR 40 MG TAB 1 po qHS ATORVASTATIN CALCIUM 79339107848 Active Ang Markham MD Active METFORMIN HCL 1000 MG TABS 1 tablet by mouth twice daily METFORMIN HCL 69089945243 Active Ang Markham MD Active CYCLOBENZAPRINE HCL 5 MG TABS 1 po qHS PRN Muscle pain CYCLOBENZAPRINE HCL 34250228667 Active Ang Markham MD Active COLACE 100 MG CAP 1 po BID PRN Constipation DOCUSATE SODIUM 04623533117 No Longer Active Ang Markham MD Active HYDROXYZINE HCL 25 MG TAB 1 TID PRN nerves HYDROXYZINE HCL 10147220147 Active Ang Markham MD Active IBUPROFEN 800 MG TABS 1 tab every 8 hours as needed for pain 2013 IBUPROFEN 31829840239 No Longer Active Ang Markham MD Active NITROFURANTOIN MACROCRYSTAL 100 MG CAPS 1 capsule PO bid x 7 days NITROFURANTOIN MACROCRYSTAL 21384945783 No Longer Active Ang Markham MD Active DIFLUCAN 150 MG TAB 1 qODay x 2 doses FLUCONAZOLE 98225258416 No Longer Active Da Romero APRN Active CEFTIN 500 MG TAB 1 tablet by mouth twice daily for 7 days 07/24 CEFUROXIME AXETIL 34409951565 No Longer Active Anthony CARBONE Active ZOLOFT 50 MG TAB 1 tablet by mouth daily SERTRALINE HCL 41533700859 No Longer Active Anthony CARBONE Active ANUSOL-HC 2.5 % CREAM apply as needed HYDROCORTISONE (RECTAL) 66848869252 No Longer Active Anthony CARBONE Active COLACE 100 MG CAP 1 tab PO BID DOCUSATE SODIUM 45376924489 No Longer Active Anthony CARBONE Active TRINESSA (28) 0.18/0.215/0.25 MG-35 MCG TABS 1 po qd as directed NORGESTIM-ETH ESTRAD TRIPHASIC 64718237241 No Longer Active Anthony CARBONE Active [facility] MELATONIN 5 MG TABS 1-2 po qHS PRN Insomnia MELATONIN 63341295121 No Longer Active Anthony CARBONE Active ACYCLOVIR 400 MG TABS ACYCLOVIR 05822432687 No Longer Active Ang Markham MD Active HYDROXYZINE HCL 25 MG TABS 1 tab PO tid PRN itching HYDROXYZINE HCL 61190918667 No Longer Active Ang Markham MD Active DIFLUCAN 150 MG TAB 1 qODay x 2 doses FLUCONAZOLE 71034828697 No Longer Active Da Romero APRN Active ACYCLOVIR 400 MG TABS 1 pill twice daily ACYCLOVIR 20008732908 No Longer Active Da Romero APRN Active AZITHROMYCIN 250 MG TABS 2 po qd x 1 day, then 1 po qd x 4 days AZITHROMYCIN 36007608999 No Longer Active Eri C Madril MD PhD Active AZITHROMYCIN 250 MG TABS take 2 po day 1 then take1 po days 2-5 AZITHROMYCIN 75355996722 No Longer Active Octaviano CARBONE Active ACYCLOVIR 400 MG TABS 1 po qd ACYCLOVIR 73599836600 No Longer Active Ang Markham MD Active PROZAC 40 MG CAPS 1 cap by mouth at bedtime FLUOXETINE HCL 32081554556 No Longer Active Ang Markham MD Active HYDROXYZINE HCL 25 MG TABS 1 tab PO tid PRN itching HYDROXYZINE HCL 25 MG TABS 952699 HYDROXYZINE HCL Inactive [facility] MELATONIN 5 MG TABS 1-2 po qHS PRN Insomnia [facility] MELATONIN 5 MG TABS 259328 MELATONIN Inactive TRINESSA (28) 0.18/0.215/0.25 MG-35 MCG TABS 1 po qd as directed TRINESSA (28) 0.18/0.215/0.25 MG-35 MCG TABS 552701 NORGESTIM-ETH ESTRAD TRIPHASIC Inactive COLACE 100 MG CAP 1 tab PO BID COLACE 100 MG CAP 0711799 DOCUSATE SODIUM Inactive ANUSOL-HC 2.5 % CREAM apply as needed ANUSOL-HC 2.5 % CREAM 514857 HYDROCORTISONE (RECTAL) Inactive ZOLOFT 50 MG TAB 1 tablet by mouth daily ZOLOFT 50 MG TAB 246405 SERTRALINE HCL Inactive CEFTIN 500 MG TAB 1 tablet by mouth twice daily for 7 days 07/24 CEFTIN 500 MG TAB 733041 CEFUROXIME AXETIL Inactive NITROFURANTOIN MACROCRYSTAL 100 MG CAPS 1 capsule PO bid x 7 days NITROFURANTOIN MACROCRYSTAL 100 MG CAPS 8117039 NITROFURANTOIN MACROCRYSTAL Inactive IBUPROFEN 800 MG TABS 1 tab every 8 hours as needed for pain 2013 IBUPROFEN 800 MG TABS 357597 IBUPROFEN Inactive COLACE 100 MG CAP 1 po BID PRN Constipation COLACE 100 MG CAP 3276205 DOCUSATE SODIUM Inactive MELOXICAM 15 MG TABS 1 po qd PRN Knee Pain MELOXICAM 15 MG TABS 770346 MELOXICAM Inactive LEVEMIR FLEXPEN 100 UNIT/ML SOLN 40 units SC at bedtime LEVEMIR FLEXPEN 100 UNIT/ML SOLN INSULIN DETEMIR Inactive GENTAMICIN SULFATE 0.1 % EXT OINT Apply to open sores once a day. GENTAMICIN SULFATE 0.1 % EXT OINT 941550 GENTAMICIN SULFATE Inactive EMBRACE BLOOD GLUCOSE TEST STRP Test blood sugars 4 times daily and PRN 08/05 EMBRACE BLOOD GLUCOSE TEST STRP GLUCOSE BLOOD Inactive ACYCLOVIR 400 MG TABS 1 po qd ACYCLOVIR 400 MG TABS 685089 ACYCLOVIR Inactive AZITHROMYCIN 250 MG TABS take 2 po day 1 then take1 po days 2-5 AZITHROMYCIN 250 MG TABS 1406954 AZITHROMYCIN Inactive AZITHROMYCIN 250 MG TABS 2 po qd x 1 day, then 1 po qd x 4 days AZITHROMYCIN 250 MG TABS 0302535 AZITHROMYCIN Inactive ACYCLOVIR 400 MG TABS 1 pill twice daily ACYCLOVIR 400 MG TABS 906088 ACYCLOVIR Inactive DIFLUCAN 150 MG TAB 1 qODay x 2 doses DIFLUCAN 150 MG TAB 005197 FLUCONAZOLE Inactive ACYCLOVIR 400 MG TABS ACYCLOVIR 400 MG TABS 670024 ACYCLOVIR Inactive DIFLUCAN 150 MG TAB 1 qODay x 2 doses DIFLUCAN 150 MG TAB 107226 FLUCONAZOLE Inactive BACTRIM DS 800-160 MG TAB 1 tab by mouth twice daily BACTRIM DS 800-160 MG TAB 067643 TRIMETHOPRIM-SULFAMETHOXAZOLE Inactive Advance Directives Directive Description Start [...] HGBA1C - Chemistry sodium, serum 134 mmol/L 581-445 6339/03/16 carbon dioxide, venous blood 34.5 mmol/L 21.0-32.0 potassium, serum 4.6 mmol/L 3.5-5.2 chloride, serum 93 mmol/L 98-107 blood glucose 408 mg/dL 65-110 urea nitrogen, blood 3 mg/dL 7-18 creatinine, serum 0.58 mg/dL 0.55-1.30 alanine aminotransferase (SGPT), serum 11 U/L 12-78 aspartate aminotransferase (SGOT), serum 8 U/L 15-37 calcium, serum 9.2 mg/dL 8.5-10.1 bilirubin, serum, total 0.30 mg/dL 0.00-1.00 cholesterol, serum 195 mg/dL [phone]/03/16 triglyceride, serum, fasting 138 mg/dL 30-200 HDL [...] Panel - Chemistry sodium, serum 133 mmol/L [phone]/06/03 carbon dioxide, venous blood 33.4 mmol/L 21.0-32.0 [...] pH, urine, semiquantitative 5.5 5.0-8.5 Lab Report: [facility] – [place], [place] - Chemistry human chorionic gonadotropin, urine, qualitative [...] Yes Encounters Code Encounter Date Provider Facility CPT-39027 Level 4 Est. Patient 16:10:09 CDT Celestine Huerta [facility] CPT-23932 Level 3 Est. Patient 13:51:24 CDT Ang Markham MD [facility] CPT-88930 Level 3 Est. Patient 18:42:15 CDT Gabriel Hunt [facility] CPT-67680 Level 5 Est. Patient 14:40:14 CDT Celestine Huerta [facility] CPT-26699 Level 4 Est. Patient 14:36:17 CDT Ang Markham MD [facility] CPT-22507 Level 3 Est. Patient 11:13:47 COMMUNITY LIVING SPECIALIST Ang Markham MD [facility] CPT-60148 Level 3 Est. Patient 11:59:20 COMMUNITY LIVING SPECIALIST Gloria Dunbar [facility] CPT-73746 Level 3 Est. Patient 17:32:37 COMMUNITY LIVING SPECIALIST Gloria Dunbar [facility] CPT-44366 Level 4 Est. Patient 16:39:07 CDT Ang Markham MD [facility] CPT-99349 Level 3 Est. Patient 16:35:50 CDT Ang Markham MD [facility] CPT-09869 Level 4 Est. Patient 13:53:06 COMMUNITY LIVING SPECIALIST Ang Markham MD [facility] CPT-22824 Level 3 Est. Patient 08:58:08 COMMUNITY LIVING SPECIALIST Ang Markham MD [facility] CPT-50000 Level 3 Est. Patient 18:48:29 CDT Anthony Whitfield [facility] CPT-38253 Level 3 Est. Patient 12:16:59 CDT Gabriel Hunt DO [facility] CPT-55203 Level 3 Est. Patient 18:57:15 CDT Anthony Whitfield [facility] CPT-17401 Level 3 Est. Patient 13:59:22 COMMUNITY LIVING SPECIALIST Ang Markham MD [facility] CPT-85793 Level 4 Est. Patient 10:36:08 COMMUNITY LIVING SPECIALIST Ang Markham MD [facility] CPT-34702 Level 3 Est. Patient 16:27:02 CDT Eri Borges MD PhD [facility] CPT-25768 Level 3 Est. Patient 10:36:43 CDT Kellyfaviola Roselyn [facility] CPT-48169 Level 4 New Patient 08:58:06 CDT Ang Markham MD [facility] Procedures Code Procedure Name Date Entry Date Standard Description CPT-08365 Abd compl w upright - XRAY USE ONLY 14:09:39 CDT 02/28 CPT-23569 Venipuncture Draw Fee 12:25:15 CDT CPT-34182 Knee 3V 16:48:40 CDT CPT-OV Office Visit 16:27:13 CDT CPT-OV Office Visit 16:21:19 CDT CPT-94621 Sono pelvis non OB uterus ovaries cervix 09:37:28 CDT
--- OUTSIDE RECORDS SUMMARY | 2018-12-22 02:05 | XMS REPORT | Clinical Summary ---
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 V58.67 Active [...] I, with hypoglycemia ICD-250.81 Nathan Markham MD [facility] use 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 ICD-V58.67 Nathan Markham MD Abdominal pain ICD-789.00 Nathan Markham MD Hematochezia ICD-578.1 Nathan Markham MD Nausea ICD-787.02 Nathan Markham MD 2016/ 09/29 Otitis externa, acute, left ICD-380.12 Inactive Agn Markham MD Medication List Medication Instructions Start Date Stop Date Generic Name NDC Status Provider Patient Instruction TYLENOL WITH CODEINE #3 300-30 MG TABS 1 every four hours as needed for pain ACETAMINOPHEN-CODEINE 04072548166 Active Conner Hills MD Active CLINDAMYCIN HCL 300 MG ORAL CAPS 1 four times a day CLINDAMYCIN HCL 36643649878 Active Conner Hills MD Active LEVAQUIN 500 MG TABS 1 daily for infection LEVOFLOXACIN 86253027636 No Longer Active Conner Hills MD Active DOXEPIN HCL 10 MG CAP 1 tablet nightly for the itch DOXEPIN HCL 54251125748 No Longer Active Conner Hills MD Active TRESIBA FLEXTOUCH 200 UNIT/ML SC SOPN Take 70 units daily at mid-night to 1 am. INSULIN DEGLUDEC 65900420578 No Longer Active Conner Hills MD Active METFORMIN HCL 1000 MG TABS 1 tablet by mouth twice daily METFORMIN HCL 49847266250 No Longer Active Conner Hills MD Active LIPITOR 40 MG TAB 1 po qHS ATORVASTATIN CALCIUM 71838935412 No Longer Active Conner Hills MD Active GEMFIBROZIL 600 MG TABS 1 po BID GEMFIBROZIL 16756014656 No Longer Active Conner Hills MD Active CORTISPORIN 3.5-65607-7 SOLN 4gtts in affected ear QID x 7 days [id number] 49775122429 No Longer Active Ang Markham MD Active LEVEMIR FLEXTOUCH 100 UNIT/ML SC SOPN 35 units SC at 12-1pm, 35 units 12-1am INSULIN DETEMIR 55242514736 No Longer Active Celestine MENDEZP Active REGLAN 10 MG TAB 0.5 po TID 30min prior to meals METOCLOPRAMIDE HCL 17919580035 Active Ang Markham MD Active ZANTAC 150 MG TAB 1 po BID RANITIDINE HCL 20230080910 Active Ang Markham MD Active COLACE 100 MG CAP 1 po daily DOCUSATE SODIUM 15371087162 Active Gabriel Hunt DO Active NOVOLOG FLEXPEN 100 UNIT/ML SOPN Take 20 units TID with meals, plus 2u/50 for blood sugars above 150. Ratio vs. Carbs INSULIN ASPART 45278321975 Active Gabriel Hunt DO Active BD PEN NEEDLE DINESH U/F 32G X 4 MM MISC 5 a day INSULIN PEN NEEDLE 77897528685 Active Malwalter Ziglari EQUIPMENT MECHANIC Active EMBRACE BLOOD GLUCOSE TEST STRP Test blood sugars 4 times daily and PRN 08/05 GLUCOSE BLOOD 09333290793 No Longer Active Malstepheneh Ziglari EQUIPMENT MECHANIC Active TRUEPLUS LANCETS 30G MISC 4 a day LANCETS 71331101355 Active Maliheh Ziglari EQUIPMENT MECHANIC Active TRUETEST TEST STRP check blood sugars 4x/day GLUCOSE BLOOD 21739808330 Active Maliheh Ziglari EQUIPMENT MECHANIC Active TRUERESULT BLOOD GLUCOSE W/DEVICE KIT check blood sugars 4x a day BLOOD GLUCOSE MONITORING SUPPL 33498314190 Active Malstepheneh Ziglari EQUIPMENT MECHANIC Active LISINOPRIL 5 MG TABS 1 po qd LISINOPRIL 76122275423 Active Ang Markham MD Active PAXIL 20 MG TAB 1 tablet by mouth daily PAROXETINE HCL 01823912814 Active Ang Markham MD Active GENTAMICIN SULFATE 0.1 % EXT OINT Apply to open sores once a day. GENTAMICIN SULFATE 22083542941 No Longer Active Ang Markham MD Active ZOLPIDEM TARTRATE 10 MG TABS 1 po qHS PRN Insomnia ZOLPIDEM TARTRATE 17852170803 Active Ang Markham MD Active BACTRIM DS 800-160 MG TAB 1 tab by mouth twice daily TRIMETHOPRIM-SULFAMETHOXAZOLE 34599443456 No Longer Active Gloria Dunbar RATING SPECIALIST Active LEVEMIR FLEXPEN 100 UNIT/ML SOLN 40 units SC at bedtime INSULIN DETEMIR No Longer Active Susan Arellano RMA Active INSUPEN ULTRAFIN 31G X 6 MM MISC Use with insulin qid. DX: E11.9 INSULIN PEN NEEDLE 88086779721 Active Ang Markham MD Active ZOLOFT 100 MG TAB 1 po qHS SERTRALINE HCL 70379169117 No Longer Active Ang Markham MD Active MELOXICAM 15 MG TABS 1 po qd PRN Knee Pain MELOXICAM 32337317937 No Longer Active Ang Markham MD Active CYCLOBENZAPRINE HCL 5 MG TABS 1 po qHS PRN Muscle pain CYCLOBENZAPRINE HCL 55015737690 Active Ang Markham MD Active COLACE 100 MG CAP 1 po BID PRN Constipation DOCUSATE SODIUM 11472425143 No Longer Active Ang Markham MD Active HYDROXYZINE HCL 25 MG TAB 1 TID PRN nerves HYDROXYZINE HCL 71934853357 Active Ang Markham MD Active IBUPROFEN 800 MG TABS 1 tab every 8 hours as needed for pain 2013 IBUPROFEN 02881477525 No Longer Active Ang Markham MD Active NITROFURANTOIN MACROCRYSTAL 100 MG CAPS 1 capsule PO bid x 7 days NITROFURANTOIN MACROCRYSTAL 58027184374 No Longer Active Ang Markham MD Active DIFLUCAN 150 MG TAB 1 qODay x 2 doses FLUCONAZOLE 74213251411 No Longer Active Da Romero APRN Active CEFTIN 500 MG TAB 1 tablet by mouth twice daily for 7 days 07/24 CEFUROXIME AXETIL 90245754311 No Longer Active Anthony CARBONE Active ZOLOFT 50 MG TAB 1 tablet by mouth daily SERTRALINE HCL 25514554165 No Longer Active Anthony CARBONE Active ANUSOL-HC 2.5 % CREAM apply as needed HYDROCORTISONE (RECTAL) 94766324099 No Longer Active Anthony CARBONE Active COLACE 100 MG CAP 1 tab PO BID DOCUSATE SODIUM 30141055738 No Longer Active Anthony CARBONE Active TRINESSA (28) 0.18/0.215/0.25 MG-35 MCG TABS 1 po qd as directed NORGESTIM-ETH ESTRAD TRIPHASIC 75756485262 No Longer Active Anthony CARBONE Active [facility] MELATONIN 5 MG TABS 1-2 po qHS PRN Insomnia MELATONIN 91239995264 No Longer Active Anthony CARBONE Active ACYCLOVIR 400 MG TABS ACYCLOVIR 89487836613 No Longer Active Ang Markham MD Active HYDROXYZINE HCL 25 MG TABS 1 tab PO tid PRN itching HYDROXYZINE HCL 46182967109 No Longer Active Ang Markham MD Active DIFLUCAN 150 MG TAB 1 qODay x 2 doses FLUCONAZOLE 16837468168 No Longer Active Da Romero APRN Active ACYCLOVIR 400 MG TABS 1 pill twice daily ACYCLOVIR 58514896686 No Longer Active Jillina Nick OSHEA Active AZITHROMYCIN 250 MG TABS 2 po qd x 1 day, then 1 po qd x 4 days AZITHROMYCIN 15462305659 No Longer Active Eri Borges MD PhD Active AZITHROMYCIN 250 MG TABS take 2 po day 1 then take1 po days 2-5 AZITHROMYCIN 65115186950 No Longer Active Octaviano CARBONE Active ACYCLOVIR 400 MG TABS 1 po qd ACYCLOVIR 78073757851 No Longer Active Ang Markham MD Active PROZAC 40 MG CAPS 1 cap by mouth at bedtime FLUOXETINE HCL 68674327933 No Longer Active Ang Markham MD Active HYDROXYZINE HCL 25 MG TABS 1 tab PO tid PRN itching HYDROXYZINE HCL 25 MG TABS 901538 HYDROXYZINE HCL Inactive [facility] MELATONIN 5 MG TABS 1-2 po qHS PRN Insomnia [facility] MELATONIN 5 MG TABS 493759 MELATONIN Inactive TRINESSA (28) 0.18/0.215/0.25 MG-35 MCG TABS 1 po qd as directed TRINESSA (28) 0.18/0.215/0.25 MG-35 MCG TABS 627260 NORGESTIM-ETH ESTRAD TRIPHASIC Inactive COLACE 100 MG CAP 1 tab PO BID COLACE 100 MG CAP 9466892 DOCUSATE SODIUM Inactive ANUSOL-HC 2.5 % CREAM apply as needed ANUSOL-HC 2.5 % CREAM 888567 HYDROCORTISONE (RECTAL) Inactive ZOLOFT 50 MG TAB 1 tablet by mouth daily ZOLOFT 50 MG TAB 139365 SERTRALINE HCL Inactive CEFTIN 500 MG TAB 1 tablet by mouth twice daily for 7 days 07/24 CEFTIN 500 MG TAB 280134 CEFUROXIME AXETIL Inactive NITROFURANTOIN MACROCRYSTAL 100 MG CAPS 1 capsule PO bid x 7 days NITROFURANTOIN MACROCRYSTAL 100 MG CAPS 4178035 NITROFURANTOIN MACROCRYSTAL Inactive IBUPROFEN 800 MG TABS 1 tab every 8 hours as needed for pain 2013 IBUPROFEN 800 MG TABS 359063 IBUPROFEN Inactive COLACE 100 MG CAP 1 po BID PRN Constipation COLACE 100 MG CAP 0412177 DOCUSATE SODIUM Inactive MELOXICAM 15 MG TABS 1 po qd PRN Knee Pain MELOXICAM 15 MG TABS 915612 MELOXICAM Inactive LEVEMIR FLEXPEN 100 UNIT/ML SOLN 40 units SC at bedtime LEVEMIR FLEXPEN 100 UNIT/ML SOLN INSULIN DETEMIR Inactive GENTAMICIN SULFATE 0.1 % EXT OINT Apply to open sores once a day. GENTAMICIN SULFATE 0.1 % EXT OINT 040614 GENTAMICIN SULFATE Inactive EMBRACE BLOOD GLUCOSE TEST STRP Test blood sugars 4 times daily and PRN 08/05 EMBRACE BLOOD GLUCOSE TEST STRP GLUCOSE BLOOD Inactive LEVEMIR FLEXTOUCH 100 UNIT/ML SC SOPN 35 units SC at 12-1pm, 35 units 12-1am LEVEMIR FLEXTOUCH 100 UNIT/ML SC SOPN INSULIN DETEMIR Inactive CORTISPORIN 3.5-95931-5 SOLN 4gtts in affected ear QID x 7 days CORTISPORIN 3.5-56584-1 SOLN 252363 [id number] Inactive GEMFIBROZIL 600 MG TABS 1 po BID GEMFIBROZIL 600 MG TABS 124111 GEMFIBROZIL Inactive LIPITOR 40 MG TAB 1 po qHS LIPITOR 40 MG TAB 813517 ATORVASTATIN CALCIUM Inactive METFORMIN HCL 1000 MG TABS 1 tablet by mouth twice daily METFORMIN HCL 1000 MG TABS 685036 METFORMIN HCL Inactive TRESIBA FLEXTOUCH 200 UNIT/ML SC SOPN Take 70 units daily at mid-night to 1 am. TRESIBA FLEXTOUCH 200 UNIT/ML SC SOPN INSULIN DEGLUDEC Inactive DOXEPIN HCL 10 MG CAP 1 tablet nightly for the itch DOXEPIN HCL 10 MG CAP 3073371 DOXEPIN HCL Inactive LEVAQUIN 500 MG TABS 1 daily for infection LEVAQUIN 500 MG TABS 303833 LEVOFLOXACIN Inactive ACYCLOVIR 400 MG TABS 1 po qd ACYCLOVIR 400 MG TABS 158583 ACYCLOVIR Inactive AZITHROMYCIN 250 MG TABS take 2 po day 1 then take1 po days 2-5 AZITHROMYCIN 250 MG TABS 5792390 AZITHROMYCIN Inactive AZITHROMYCIN 250 MG TABS 2 po qd x 1 day, then 1 po qd x 4 days AZITHROMYCIN 250 MG TABS 2992637 AZITHROMYCIN Inactive ACYCLOVIR 400 MG TABS 1 pill twice daily ACYCLOVIR 400 MG TABS 19720928 ACYCLOVIR Inactive DIFLUCAN 150 MG TAB 1 qODay x 2 doses DIFLUCAN 150 MG TAB 655669 FLUCONAZOLE Inactive ACYCLOVIR 400 MG TABS ACYCLOVIR 400 MG TABS 19720928 ACYCLOVIR Inactive DIFLUCAN 150 MG TAB 1 qODay x 2 doses DIFLUCAN 150 MG TAB 19760606 FLUCONAZOLE Inactive BACTRIM DS 800-160 MG TAB 1 tab by mouth twice daily BACTRIM DS 800-160 MG TAB 106584 TRIMETHOPRIM-SULFAMETHOXAZOLE Inactive Advance Directives Directive Description Start [...] Panel - Chemistry sodium, serum 130 mmol/L 329-633 2355/10/12 carbon dioxide, venous blood 28.1 mmol/L 21.0-32.0 potassium, serum 3.9 mmol/L 3.5-5.2 chloride, serum 91 mmol/L 98-107 blood glucose 547 mg/dL 65-110 urea nitrogen, blood 3 mg/dL 7-18 creatinine, serum 0.78 mg/dL 0.55-1.30 alanine aminotransferase (SGPT), serum 11 U/L 12-78 aspartate aminotransferase (SGOT), serum 7 U/L 15-37 calcium, serum 8.8 mg/dL 8.5-10.1 bilirubin, serum, total 0.30 mg/dL 0.00-1.00 cholesterol, serum 221 mg/dL 629-141 4078/10/12 triglyceride, serum, fasting 590 mg/dL 30-200 HDL cholesterol, serum 45 mg/dL 32-96 LDL cholesterol, serum 58 mg/dL 0-130 Lab Report: HGBA1C - Chemistry hemoglobin A1C, blood, as % of total hemoglobin 11.4 % 4.3-6.0 Lab Report: UADIP W/MICRO, AUTO, CBC W/DIFF, Comp. Metabolic Panel - Chemistry sodium, serum 133 mmol/L 413-439 7912/06/03 carbon dioxide, venous blood 33.4 mmol/L 21.0-32.0 [...] strip Negative Negative bilirubin, urine Negative Negative pH, urine, semiquantitative 5.5 5.0-8.5 specific gravity, urine 1.015 1.000-1.030 appearance, urine SlCloudy Clear urine color Yellow Colorless;Lightyellow;Straw;Yellow Lab Report: [facility] [place] Chemistry human chorionic gonadotropin, urine, qualitative (urine test) Negative Negative Office Visit: Diabetes Visit - Basic LDL target level 100 mg/dL LDL target level 100 mg/dL Office Visit: Diabetes Visit - Chemistry HDL cholesterol, serum, target level 35 mg/dL cholesterol, target level 200 mg/dL triglyceride, target level 200 mg/dL HDL cholesterol, serum, target level 35 mg/dL cholesterol, target level 200 mg/dL triglyceride, target level 200 mg/dL Encounters Code Encounter Date Provider Facility CPT-02682 Level 3 Est. Patient 10:22:30 CDT Conner Hills MD [facility] CPT-56114 Level 3 Est. Patient 15:02:19 CDT Shreya Velazquez [facility] CPT-20298 Level 3 Est. Patient 13:22:25 CDT Gabriel Hunt [facility] CPT-98220 Level 4 Est. Patient 16:02:22 CDT Ang Markham MD [facility] CPT-93294 Level 3 Est. Patient 16:21:23 [facility] 3 Est. Patient 17:02:56 CDT Gabriel Hunt [facility] CPT-95620 Level 3 Est. Patient 14:46:22 CDT Da Romero [facility] CPT-50169 Level 4 Est. Patient 13:55:20 CDT Ang Markham MD [facility] CPT-32606 Level 4 Est. Patient 16:10:09 CDT Celestine Huerta [facility] CPT-13665 Level 3 Est. Patient 13:51:24 CDT Ang Markham MD [facility] CPT-45425 Level 3 Est. Patient 18:42:15 CDT Gabriel Hunt [facility] CPT-97696 Level 5 Est. Patient 14:40:14 CDT [facility] CPT-72122 Level 4 Est. Patient 14:36:17 CDT Ang Markham MD [facility] CPT-32555 Level 3 Est. Patient 11:13:47 WEB PAGE DEVELOPER Ang Markham MD [facility] CPT-24245 Level 3 Est. Patient 11:59:20 WEB PAGE DEVELOPER Gloria Dunbar [facility] CPT-56644 Level 3 Est. Patient 17:32:37 WEB PAGE DEVELOPER Gloria Dunbar [facility] CPT-33830 Level 4 Est. Patient 16:39:07 CDT Ang Markham MD [facility] CPT-41256 Level 3 Est. Patient 16:35:50 CDT Ang Markham MD [facility] CPT-52234 Level 4 Est. Patient 13:53:06 WEB PAGE DEVELOPER Ang Markham MD [facility] CPT-42606 Level 3 Est. Patient 08:58:08 WEB PAGE DEVELOPER Ang Markham MD [facility] CPT-00537 Level 3 Est. Patient 18:48:[address] [facility] CPT-52457 Level 3 Est. Patient 12:16:59 CDT Gabriel Hunt DO [facility] CPT-73040 Level 3 Est. Patient 18:57:[address] [facility] CPT-03695 Level 3 Est. Patient 13:59:22 WEB PAGE DEVELOPER Ang Markham MD [facility] CPT-00293 Level 4 Est. Patient 10:36:08 WEB PAGE DEVELOPER Ang Markham MD [facility] CPT-48705 Level 3 Est. Patient 16:27:02 CDT Eri Borges MD PhD [facility] CPT-50820 Level 3 Est. Patient 10:36:[address] [facility] CPT-25082 Level 4 New Patient 08:58:06 CDT Ang Markham MD [facility] Procedures Code Procedure Name Date Entry Date Standard Description CPT-44429 LS spine comp w obliques - XRAY USE ONLY 15:34:48 CDT CPT-62086 Lipid - LAB USE ONLY 15:28:39 CDT CPT-10413 CMP - LAB USE ONLY 15:28:39 CDT CPT-79402 Venipuncture Draw Fee 15:28:39 CDT CPT-02199 Abd compl w upright - XRAY USE ONLY 14:09:39 CDT 02/28 CPT-88104 Venipuncture Draw Fee 12:25:15 CDT CPT-26303 Knee 3V 16:48:40 CDT CPT-OV Office Visit 16:27:13 CDT CPT-OV Office Visit 16:21:19 CDT CPT-75512 Sono pelvis non OB uterus ovaries cervix 09:37:28 CDT
--- OUTSIDE RECORDS SUMMARY | 2018-12-22 02:07 | XMS REPORT | Clinical Summary ---
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 INSULIN DEGLUDEC 91283179906 No Longer Active Conner Hills MD Active METFORMIN HCL 1000 MG TABS 1 tablet by mouth twice daily METFORMIN HCL 15079070664 No Longer Active Conner Hills MD Active LIPITOR 40 MG TAB 1 po qHS ATORVASTATIN CALCIUM 19982975799 No Longer Active Conner Hills MD Active GEMFIBROZIL 600 MG TABS 1 po BID GEMFIBROZIL 68037597375 No Longer Active Conner Hills MD Active CORTISPORIN 3.5-19287-0 SOLN 4gtts in affected ear QID x 7 days [id number] 91611827861 No Longer Active Ang Markham MD Active LEVEMIR FLEXTOUCH 100 UNIT/ML SC SOPN 35 units SC at 12-1pm, 35 units 12-1am INSULIN DETEMIR 39484614534 No Longer Active Celestine PEARCE Active REGLAN 10 MG TAB 0.5 po TID 30min prior to meals METOCLOPRAMIDE HCL 43146341448 Active Ang Markham MD Active ZANTAC 150 MG TAB 1 po BID RANITIDINE HCL 21095292524 Active Ang Markham MD Active COLACE 100 MG CAP 1 po daily DOCUSATE SODIUM 31996348444 Active Gabriel Hunt DO Active NOVOLOG FLEXPEN 100 UNIT/ML SOPN Take 20 units TID with meals, plus 2u/50 for blood sugars above 150. Ratio vs. Carbs INSULIN ASPART 67772897762 Active Gabriel Hunt DO Active BD PEN NEEDLE DINESH U/F 32G X 4 MM MISC 5 a day INSULIN PEN NEEDLE 70995377675 Active Celestine Ziglari DRAMATIC COACH Active EMBRACE BLOOD GLUCOSE TEST STRP Test blood sugars 4 times daily and PRN 08/05 GLUCOSE BLOOD 97396337756 No Longer Active Maliheh Ziglari DRAMATIC COACH Active TRUEPLUS LANCETS 30G MISC 4 a day LANCETS 25082192169 Active Maliheh Ziglari DRAMATIC COACH Active TRUETEST TEST STRP check blood sugars 4x/day GLUCOSE BLOOD 53744940203 Active Maliheh Ziglari DRAMATIC COACH Active TRUERESULT BLOOD GLUCOSE W/DEVICE KIT check blood sugars 4x a day BLOOD GLUCOSE MONITORING SUPPL 04413244809 Active Malstepheneh Ziglari DRAMATIC COACH Active LISINOPRIL 5 MG TABS 1 po qd LISINOPRIL 27436650283 Active Ang Markham MD Active PAXIL 20 MG TAB 1 tablet by mouth daily PAROXETINE HCL 93918163143 Active Ang Markham MD Active GENTAMICIN SULFATE 0.1 % EXT OINT Apply to open sores once a day. GENTAMICIN SULFATE 74256442852 No Longer Active Ang Markham MD Active ZOLPIDEM TARTRATE 10 MG TABS 1 po qHS PRN Insomnia ZOLPIDEM TARTRATE 98119121028 Active Ang Markham MD Active BACTRIM DS 800-160 MG TAB 1 tab by mouth twice daily TRIMETHOPRIM-SULFAMETHOXAZOLE 68360212878 No Longer Active Gloria Goveaharlan CURATOR OF PHOTOGRAPHY AND PRINTS Active LEVEMIR FLEXPEN 100 UNIT/ML SOLN 40 units SC at bedtime INSULIN DETEMIR No Longer Active Susan Arellano RMA Active INSUPEN ULTRAFIN 31G X 6 MM MISC Use with insulin qid. DX: E11.9 INSULIN PEN NEEDLE 35282152743 Active Agn Markham MD Active ZOLOFT 100 MG TAB 1 po qHS SERTRALINE HCL 90725017704 No Longer Active Ang Markham MD Active MELOXICAM 15 MG TABS 1 po qd PRN Knee Pain MELOXICAM 74843216519 No Longer Active Ang Markham MD Active CYCLOBENZAPRINE HCL 5 MG TABS 1 po qHS PRN Muscle pain CYCLOBENZAPRINE HCL 15333265855 Active Ang Markham MD Active COLACE 100 MG CAP 1 po BID PRN Constipation DOCUSATE SODIUM 28942056388 No Longer Active Ang Markham MD Active HYDROXYZINE HCL 25 MG TAB 1 TID PRN nerves HYDROXYZINE HCL 31164288946 Active Ang Markham MD Active IBUPROFEN 800 MG TABS 1 tab every 8 hours as needed for pain 2013 IBUPROFEN 44758836164 No Longer Active Ang Markham MD Active NITROFURANTOIN MACROCRYSTAL 100 MG CAPS 1 capsule PO bid x 7 days NITROFURANTOIN MACROCRYSTAL 21027000795 No Longer Active Ang Markham MD Active DIFLUCAN 150 MG TAB 1 qODay x 2 doses FLUCONAZOLE 98678619656 No Longer Active Da Romero APRN Active CEFTIN 500 MG TAB 1 tablet by mouth twice daily for 7 days 07/24 CEFUROXIME AXETIL 93511885704 No Longer Active Anthony CARBONE Active ZOLOFT 50 MG TAB 1 tablet by mouth daily SERTRALINE HCL 47638098459 No Longer Active Anthony CARBONE Active ANUSOL-HC 2.5 % CREAM apply as needed HYDROCORTISONE (RECTAL) 18271809615 No Longer Active Anthony CARBONE Active COLACE 100 MG CAP 1 tab PO BID DOCUSATE SODIUM 93469749758 No Longer Active Anthony CARBONE Active TRINESSA (28) 0.18/0.215/0.25 MG-35 MCG TABS 1 po qd as directed NORGESTIM-ETH ESTRAD TRIPHASIC 44844200346 No Longer Active Anthony CARBONE Active [facility] MELATONIN 5 MG TABS 1-2 po qHS PRN Insomnia MELATONIN 69940576172 No Longer Active Anthony CARBONE Active ACYCLOVIR 400 MG TABS ACYCLOVIR 29161968347 No Longer Active Ang Markham MD Active HYDROXYZINE HCL 25 MG TABS 1 tab PO tid PRN itching HYDROXYZINE HCL 36082467892 No Longer Active Ang Markham MD Active DIFLUCAN 150 MG TAB 1 qODay x 2 doses FLUCONAZOLE 46609288296 No Longer Active Da Romero APRN Active ACYCLOVIR 400 MG TABS 1 pill twice daily ACYCLOVIR 56181583766 No Longer Active Jillina Nick OSHEA Active AZITHROMYCIN 250 MG TABS 2 po qd x 1 day, then 1 po qd x 4 days AZITHROMYCIN 57817387570 No Longer Active Eri Borges MD PhD Active AZITHROMYCIN 250 MG TABS take 2 po day 1 then take1 po days 2-5 AZITHROMYCIN 12048418482 No Longer Active Octaviano CARBONE Active ACYCLOVIR 400 MG TABS 1 po qd ACYCLOVIR 36684059634 No Longer Active Ang Markham MD Active PROZAC 40 MG CAPS 1 cap by mouth at bedtime FLUOXETINE HCL 19039120894 No Longer Active Ang Markham MD Active HYDROXYZINE HCL 25 MG TABS 1 tab PO tid PRN itching HYDROXYZINE HCL 25 MG TABS 828354 HYDROXYZINE HCL Inactive [facility] MELATONIN 5 MG TABS 1-2 po qHS PRN Insomnia [facility] MELATONIN 5 MG TABS 208942 MELATONIN Inactive TRINESSA (28) 0.18/0.215/0.25 MG-35 MCG TABS 1 po qd as directed TRINESSA (28) 0.18/0.215/0.25 MG-35 MCG TABS 682394 NORGESTIM-ETH ESTRAD TRIPHASIC Inactive COLACE 100 MG CAP 1 tab PO BID COLACE 100 MG CAP 4558670 DOCUSATE SODIUM Inactive ANUSOL-HC 2.5 % CREAM apply as needed ANUSOL-HC 2.5 % CREAM 828616 HYDROCORTISONE (RECTAL) Inactive ZOLOFT 50 MG TAB 1 tablet by mouth daily ZOLOFT 50 MG TAB 503945 SERTRALINE HCL Inactive CEFTIN 500 MG TAB 1 tablet by mouth twice daily for 7 days 07/24 CEFTIN 500 MG TAB 002993 CEFUROXIME AXETIL Inactive NITROFURANTOIN MACROCRYSTAL 100 MG CAPS 1 capsule PO bid x 7 days NITROFURANTOIN MACROCRYSTAL 100 MG CAPS 5429215 NITROFURANTOIN MACROCRYSTAL Inactive IBUPROFEN 800 MG TABS 1 tab every 8 hours as needed for pain 2013 IBUPROFEN 800 MG TABS 037492 IBUPROFEN Inactive COLACE 100 MG CAP 1 po BID PRN Constipation COLACE 100 MG CAP 9212482 DOCUSATE SODIUM Inactive MELOXICAM 15 MG TABS 1 po qd PRN Knee Pain MELOXICAM 15 MG TABS 735120 MELOXICAM Inactive LEVEMIR FLEXPEN 100 UNIT/ML SOLN 40 units SC at bedtime LEVEMIR FLEXPEN 100 UNIT/ML SOLN INSULIN DETEMIR Inactive GENTAMICIN SULFATE 0.1 % EXT OINT Apply to open sores once a day. GENTAMICIN SULFATE 0.1 % EXT OINT 423216 GENTAMICIN SULFATE Inactive EMBRACE BLOOD GLUCOSE TEST STRP Test blood sugars 4 times daily and PRN 08/05 EMBRACE BLOOD GLUCOSE TEST STRP GLUCOSE BLOOD Inactive LEVEMIR FLEXTOUCH 100 UNIT/ML SC SOPN 35 units SC at 12-1pm, 35 units 12-1am LEVEMIR FLEXTOUCH 100 UNIT/ML SC SOPN INSULIN DETEMIR Inactive CORTISPORIN 3.5-29341-8 SOLN 4gtts in affected ear QID x 7 days CORTISPORIN 3.5-63813-1 SOLN 864114 MRIOHARF-NYYUNRNWT-VM Inactive GEMFIBROZIL 600 MG TABS 1 po BID GEMFIBROZIL 600 MG TABS 212487 GEMFIBROZIL Inactive LIPITOR 40 MG TAB 1 po qHS LIPITOR 40 MG TAB 098883 ATORVASTATIN CALCIUM Inactive METFORMIN HCL 1000 MG TABS 1 tablet by mouth twice daily METFORMIN HCL 1000 MG TABS 963637 METFORMIN HCL Inactive TRESIBA FLEXTOUCH 200 UNIT/ML SC SOPN Take 70 units daily at mid-night to 1 am. TRESIBA FLEXTOUCH 200 UNIT/ML SC SOPN INSULIN DEGLUDEC Inactive DOXEPIN HCL 10 MG CAP 1 tablet nightly for the itch DOXEPIN HCL 10 MG CAP 8735083 DOXEPIN HCL Inactive LEVAQUIN 500 MG TABS 1 daily for infection LEVAQUIN 500 MG TABS 292313 LEVOFLOXACIN Inactive ACYCLOVIR 400 MG TABS 1 po qd ACYCLOVIR 400 MG TABS 139484 ACYCLOVIR Inactive AZITHROMYCIN 250 MG TABS take 2 po day 1 then take1 po days 2-5 AZITHROMYCIN 250 MG TABS 0187217 AZITHROMYCIN Inactive AZITHROMYCIN 250 MG TABS 2 po qd x 1 day, then 1 po qd x 4 days AZITHROMYCIN 250 MG TABS 1345869 AZITHROMYCIN Inactive ACYCLOVIR 400 MG TABS 1 [...] Panel - Chemistry sodium, serum 130 mmol/L 218-656 8448/10/12 carbon dioxide, venous blood 28.1 mmol/L 21.0-32.0 potassium, serum 3.9 mmol/L 3.5-5.2 chloride, serum 91 mmol/L 98-107 blood glucose 547 mg/dL 65-110 urea nitrogen, blood 3 mg/dL 7-18 creatinine, serum 0.78 mg/dL 0.55-1.30 alanine aminotransferase (SGPT), serum 11 U/L 12-78 aspartate aminotransferase (SGOT), serum 7 U/L 15-37 calcium, serum 8.8 mg/dL 8.5-10.1 bilirubin, serum, total 0.30 mg/dL 0.00-1.00 cholesterol, serum 221 mg/dL 715-666 1996/10/12 triglyceride, serum, fasting 590 mg/dL 30-200 HDL cholesterol, serum 45 mg/dL 32-96 LDL cholesterol, serum 58 mg/dL 0-130 Lab Report: HGBA1C - Chemistry hemoglobin A1C, blood, as % of total hemoglobin 11.4 % 4.3-6.0 Lab Report: UADIP W/MICRO, AUTO, CBC W/DIFF, Comp. Metabolic Panel - Chemistry RBC, urine, dipstick Negative Negative sodium, serum 133 mmol/L 147-735 8576/06/03 carbon dioxide, venous blood 33.4 mmol/L 21.0-32.0 [...] nitrite, urine, semiquantitative Negative Negative Lab Report: [facility] [place] - Chemistry human chorionic gonadotropin, urine, qualitative [...] mg/dL Encounters Code Encounter Date Provider Facility CPT-97789 Level 3 Est. Patient 10:22:30 CDT Conner Hills MD [facility] CPT-40610 Level 3 Est. Patient 15:02:19 CDT Shreya Velazquez [facility] CPT-15123 Level 3 Est. Patient 13:22:25 CDT Gabriel Hunt [facility] CPT-15196 Level 4 Est. Patient 16:02:22 CDT Ang Markham MD [facility] CPT-47086 Level 3 Est. Patient 16:21:23 [facility] Patient 17:02:56 CDT Gabriel Hunt [facility] CPT-48131 Level 3 Est. Patient 14:46:22 CDT Da Romero [facility] CPT-26483 Level 4 Est. Patient 13:55:20 CDT Ang Markham MD [facility] CPT-92111 Level 4 Est. Patient 16:10:09 CDT Celestine Huerta [facility] CPT-70375 Level 3 Est. Patient 13:51:24 CDT Ang Markham MD [facility] CPT-10840 Level 3 Est. Patient 18:42:15 CDT Gabriel Hunt [facility] CPT-01398 Level 5 Est. Patient 14:40:14 CDT [facility] CPT-10245 Level 4 Est. Patient 14:36:17 CDT Ang Markham MD [facility] CPT-00995 Level 3 Est. Patient 11:13:47 STATISTICIAN Ang Markham MD [facility] CPT-56924 Level 3 Est. Patient 11:59:20 STATISTICIAN Gloria Dunbar [facility] CPT-76884 Level 3 Est. Patient 17:32:37 STATISTICIAN Gloria Dunbar [facility] CPT-28880 Level 4 Est. Patient 16:39:07 CDT Ang Markham MD [facility] CPT-01308 Level 3 Est. Patient 16:35:50 CDT Ang Markham MD [facility] CPT-84575 Level 4 Est. Patient 13:53:06 STATISTICIAN Ang Markham MD [facility] CPT-58686 Level 3 Est. Patient 08:58:08 STATISTICIAN Ang Markham MD [facility] CPT-99973 Level 3 Est. Patient 18:48:29 CDT Anthony Whitfield [facility] CPT-26020 Level 3 Est. Patient 12:16:59 CDT Gabriel Hunt DO [facility] CPT-63955 Level 3 Est. Patient 18:57:15 CDT Anthony Whitfield [facility] CPT-72892 Level 3 Est. Patient 13:59:22 STATISTICIAN Ang Markham MD [facility] CPT-37379 Level 4 Est. Patient 10:36:08 STATISTICIAN Ang Markham MD [facility] CPT-20883 Level 3 Est. Patient 16:27:02 CDT Eri Borges MD PhD [facility] CPT-86160 Level 3 Est. Patient 10:36:43 CDT Octaviano Dempsey [facility] CPT-28730 Level 4 New Patient 08:58:06 CDT Ang Markham MD [facility] Procedures Code Procedure Name Date Entry Date Standard Description CPT-81346 LS spine comp w obliques - XRAY USE ONLY 15:34:48 CDT CPT-59078 Lipid - LAB USE ONLY 15:28:39 CDT CPT-72815 CMP - LAB USE ONLY 15:28:39 CDT CPT-12580 Venipuncture Draw Fee 15:28:39 CDT CPT-70485 Abd compl w upright - XRAY USE ONLY 14:09:39 CDT 02/28 CPT-80976 Venipuncture Draw Fee 12:25:15 CDT CPT-29325 Knee 3V 16:48:40 CDT CPT-OV Office Visit 16:27:13 CDT CPT-OV Office Visit 16:21:19 CDT CPT-47194 Sono pelvis non OB uterus ovaries cervix 09:37:28 CDT
--- OUTSIDE RECORDS SUMMARY | 2018-12-22 02:08 | XMS REPORT | Clinical Summary ---
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 V58.67 Active Celestine [...] Nathan Markham MD Knee pain, bilateral ICD-719.46 Inactive Ang Markham MD Cystitis, acute ICD-595.0 Inactive Ang Markham MD UTI ICD-599.0 Nathan Markham MD Insomnia ICD-780.52 Inactive Ang Markham MD Diabetes mellitus ICD-250.00 Nathan Markham MD Vaginal discharge ICD-623.5 Nathan Markham MD Amenorrhea ICD-626.0 Nathan Markham MD Cellulitis, ankle, left ICD-682.6 Nathan Markham MD Diabetes mellitus, type I, with hypoglycemia ICD-250.81 Nathan Markham MD terminal block assembler use 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 ICD-V58.67 Nathan Markham MD Medication List Medication Instructions Start Date Stop Date Generic Name NDC Status Provider Patient Instruction TRESIBA FLEXTOUCH 200 UNIT/ML SC SOPN Take 70 units daily at mid-night to 1 am. INSULIN DEGLUDEC 04975927445 Active Maliheh Ziglari ONLINE MARKETING COORDINATOR Active LEVEMIR FLEXTOUCH 100 UNIT/ML SC SOPN 35 units SC at 12-1pm, 35 units 12-1am INSULIN DETEMIR 61146190792 No Longer Active Maliheh Ziglari ONLINE MARKETING COORDINATOR Active REGLAN 10 MG TAB 0.5 po TID 30min prior to meals METOCLOPRAMIDE HCL 21894338068 Wiley Markham MD Active ZANTAC 150 MG TAB 1 po BID RANITIDINE HCL 48563548012 Active Ang Markham MD Active CORTISPORIN 3.5-07157-0 SOLN 4gtts in affected ear QID x 7 days [id number]-[id number]-EO 14738166031 Active Gabriel Hunt DO Active DOXEPIN HCL 10 MG CAP 1 tablet nightly for the itch DOXEPIN HCL 92890610942 Active Gabriel Hunt DO Active COLACE 100 MG CAP 1 po daily DOCUSATE SODIUM 31629074727 Active Gabriel Hunt DO Active NOVOLOG FLEXPEN 100 UNIT/ML SOPN Take 20 units TID with meals, plus 2u/50 for blood sugars above 150. Ratio vs. Carbs INSULIN ASPART 75292459440 Active Gabriel Hunt DO Active BD PEN NEEDLE DINESH U/F 32G X 4 MM MISC 5 a day INSULIN PEN NEEDLE 18437793804 Active Maliheh Ziglari ONLINE MARKETING COORDINATOR Active EMBRACE BLOOD GLUCOSE TEST STRP Test blood sugars 4 times daily and PRN 08/05 GLUCOSE BLOOD 49793692131 No Longer Active Maliheh Ziglari ONLINE MARKETING COORDINATOR Active TRUEPLUS LANCETS 30G MISC 4 a day LANCETS 94802831641 Active Maliheh Ziglari ONLINE MARKETING COORDINATOR Active TRUETEST TEST STRP check blood sugars 4x/day GLUCOSE BLOOD 22282694523 Active Maliheh Ziglari ONLINE MARKETING COORDINATOR Active TRUERESULT BLOOD GLUCOSE W/DEVICE KIT check blood sugars 4x a day BLOOD GLUCOSE MONITORING SUPPL 31497395321 Active Maliheh Ziglari ONLINE MARKETING COORDINATOR Active LISINOPRIL 5 MG TABS 1 po qd LISINOPRIL 61185833174 Active Ang Markham MD Active PAXIL 20 MG TAB 1 tablet by mouth daily PAROXETINE HCL 04750496971 Active Ang Markham MD Active GENTAMICIN SULFATE 0.1 % EXT OINT Apply to open sores once a day. GENTAMICIN SULFATE 05181963655 No Longer Active Ang Markham MD Active ZOLPIDEM TARTRATE 10 MG TABS 1 po qHS PRN Insomnia ZOLPIDEM TARTRATE 19202029830 Active Ang Markham MD Active BACTRIM DS 800-160 MG TAB 1 tab by mouth twice daily TRIMETHOPRIM-SULFAMETHOXAZOLE 36822890277 No Longer Active Gloria Dunbar SHIFT NURSE MANAGER Active LEVEMIR FLEXPEN 100 UNIT/ML SOLN 40 units SC at bedtime INSULIN DETEMIR No Longer Active Susan Arellano RMA Active INSUPEN ULTRAFIN 31G X 6 MM MISC Use with insulin qid. DX: E11.9 INSULIN PEN NEEDLE 79874842764 Active Ang Markham MD Active ZOLOFT 100 MG TAB 1 po qHS SERTRALINE HCL 11537248658 No Longer Active Ang Markham MD Active MELOXICAM 15 MG TABS 1 po qd PRN Knee Pain MELOXICAM 88839925534 No Longer Active Ang Markham MD Active LIPITOR 40 MG TAB 1 po qHS ATORVASTATIN CALCIUM 17714744183 Active Ang Markham MD Active METFORMIN HCL 1000 MG TABS 1 tablet by mouth twice daily METFORMIN HCL 23041739456 Active Ang Markham MD Active CYCLOBENZAPRINE HCL 5 MG TABS 1 po qHS PRN Muscle pain CYCLOBENZAPRINE HCL 72833846262 Active Ang Markham MD Active COLACE 100 MG CAP 1 po BID PRN Constipation DOCUSATE SODIUM 69739778746 No Longer Active Ang Markham MD Active HYDROXYZINE HCL 25 MG TAB 1 TID PRN nerves HYDROXYZINE HCL 22945858223 Active Ang Markham MD Active IBUPROFEN 800 MG TABS 1 tab every 8 hours as needed for pain 2013 IBUPROFEN 30353990538 No Longer Active Ang Markham MD Active NITROFURANTOIN MACROCRYSTAL 100 MG CAPS 1 capsule PO bid x 7 days NITROFURANTOIN MACROCRYSTAL 59317016110 No Longer Active Ang Markham MD Active DIFLUCAN 150 MG TAB 1 qODay x 2 doses FLUCONAZOLE 67220131452 No Longer Active Da Romero APRN Active CEFTIN 500 MG TAB 1 tablet by mouth twice daily for 7 days 07/24 CEFUROXIME AXETIL 18344663912 No Longer Active Anthony CARBONE Active ZOLOFT 50 MG TAB 1 tablet by mouth daily SERTRALINE HCL 13438040139 No Longer Active Anthony CARBONE Active ANUSOL-HC 2.5 % CREAM apply as needed HYDROCORTISONE (RECTAL) 79772828175 No Longer Active Anthony CARBONE Active COLACE 100 MG CAP 1 tab PO BID DOCUSATE SODIUM 26970644444 No Longer Active Anthony CARBONE Active TRINESSA (28) 0.18/0.215/0.25 MG-35 MCG TABS 1 po qd as directed NORGESTIM-ETH ESTRAD TRIPHASIC 95770878067 No Longer Active Anthony CARBONE Active [facility] MELATONIN 5 MG TABS 1-2 po qHS PRN Insomnia MELATONIN 33489214349 No Longer Active Anthony CARBONE Active ACYCLOVIR 400 MG TABS ACYCLOVIR 36793511113 No Longer Active Ang Markham MD Active HYDROXYZINE HCL 25 MG TABS 1 tab PO tid PRN itching HYDROXYZINE HCL 40490036292 No Longer Active Ang Markham MD Active DIFLUCAN 150 MG TAB 1 qODay x 2 doses FLUCONAZOLE 18473486727 No Longer Active Da Romero APRN Active ACYCLOVIR 400 MG TABS 1 pill twice daily ACYCLOVIR 44288152076 No Longer Active Da Romero APRN Active AZITHROMYCIN 250 MG TABS 2 po qd x 1 day, then 1 po qd x 4 days AZITHROMYCIN 27277880553 No Longer Active Eri Borges MD PhD Active AZITHROMYCIN 250 MG TABS take 2 po day 1 then take1 po days 2-5 AZITHROMYCIN 75683536385 No Longer Active Octaviano CARBONE Active ACYCLOVIR 400 MG TABS 1 po qd ACYCLOVIR 99524833261 No Longer Active Ang Markham MD Active PROZAC 40 MG CAPS 1 cap by mouth at bedtime FLUOXETINE HCL 93562348594 No Longer Active Ang Markham MD Active HYDROXYZINE HCL 25 MG TABS 1 tab PO tid PRN itching HYDROXYZINE HCL 25 MG TABS 311281 HYDROXYZINE HCL Inactive [facility] MELATONIN 5 MG TABS 1-2 po qHS PRN Insomnia [facility] MELATONIN 5 MG TABS 515001 MELATONIN Inactive TRINESSA (28) 0.18/0.215/0.25 MG-35 MCG TABS 1 po qd as directed TRINESSA (28) 0.18/0.215/0.25 MG-35 MCG TABS 613834 NORGESTIM-ETH ESTRAD TRIPHASIC Inactive COLACE 100 MG CAP 1 tab PO BID COLACE 100 MG CAP 9458409 DOCUSATE SODIUM Inactive ANUSOL-HC 2.5 % CREAM apply as needed ANUSOL-HC 2.5 % CREAM 139638 HYDROCORTISONE (RECTAL) Inactive ZOLOFT 50 MG TAB 1 tablet by mouth daily ZOLOFT 50 MG TAB 596468 SERTRALINE HCL Inactive CEFTIN 500 MG TAB 1 tablet by mouth twice daily for 7 days 07/24 CEFTIN 500 MG TAB 981585 CEFUROXIME AXETIL Inactive NITROFURANTOIN MACROCRYSTAL 100 MG CAPS 1 capsule PO bid x 7 days NITROFURANTOIN MACROCRYSTAL 100 MG CAPS 3484173 NITROFURANTOIN MACROCRYSTAL Inactive IBUPROFEN 800 MG TABS 1 tab every 8 hours as needed for pain 2013 IBUPROFEN 800 MG TABS 177184 IBUPROFEN Inactive COLACE 100 MG CAP 1 po BID PRN Constipation COLACE 100 MG CAP 3215435 DOCUSATE SODIUM Inactive MELOXICAM 15 MG TABS 1 po qd PRN Knee Pain MELOXICAM 15 MG TABS 718186 MELOXICAM Inactive LEVEMIR FLEXPEN 100 UNIT/ML SOLN 40 units SC at bedtime LEVEMIR FLEXPEN 100 UNIT/ML SOLN INSULIN DETEMIR Inactive GENTAMICIN SULFATE 0.1 % EXT OINT Apply to open sores once a day. GENTAMICIN SULFATE 0.1 % EXT OINT 115132 GENTAMICIN SULFATE Inactive EMBRACE BLOOD GLUCOSE TEST STRP Test blood sugars 4 times daily and PRN 08/05 EMBRACE BLOOD GLUCOSE TEST STRP GLUCOSE BLOOD Inactive LEVEMIR FLEXTOUCH 100 UNIT/ML SC SOPN 35 units SC at 12-1pm, 35 units 12-1am LEVEMIR FLEXTOUCH 100 UNIT/ML SC SOPN INSULIN DETEMIR Inactive ACYCLOVIR 400 MG TABS 1 po qd ACYCLOVIR 400 MG TABS 19720928 ACYCLOVIR Inactive AZITHROMYCIN 250 MG TABS take 2 po day 1 then take1 po days 2-5 AZITHROMYCIN 250 MG TABS 7244715 AZITHROMYCIN Inactive AZITHROMYCIN 250 MG TABS 2 po qd x 1 day, then 1 po qd x 4 days AZITHROMYCIN 250 MG TABS 2823716 AZITHROMYCIN Inactive ACYCLOVIR 400 MG TABS 1 pill twice daily ACYCLOVIR 400 MG TABS 454143 ACYCLOVIR Inactive DIFLUCAN 150 MG TAB 1 qODay x 2 doses DIFLUCAN 150 MG TAB 896336 FLUCONAZOLE Inactive ACYCLOVIR 400 MG TABS ACYCLOVIR 400 MG TABS 677748 ACYCLOVIR Inactive DIFLUCAN 150 MG TAB 1 qODay x 2 doses DIFLUCAN 150 MG TAB 848783 FLUCONAZOLE Inactive BACTRIM DS 800-160 MG TAB 1 tab by mouth twice daily BACTRIM DS 800-160 MG TAB 947623 TRIMETHOPRIM-SULFAMETHOXAZOLE Inactive Advance Directives Directive Description Start [...] HGBA1C - Chemistry sodium, serum 134 mmol/L 620-628 4018/03/16 carbon dioxide, venous blood 34.5 mmol/L 21.0-32.0 potassium, serum 4.6 mmol/L 3.5-5.2 chloride, serum 93 mmol/L 98-107 blood glucose 408 mg/dL 65-110 urea nitrogen, blood 3 mg/dL 7-18 creatinine, serum 0.58 mg/dL 0.55-1.30 alanine aminotransferase (SGPT), serum 11 U/L 12-78 aspartate aminotransferase (SGOT), serum 8 U/L 15-37 calcium, serum 9.2 mg/dL 8.5-10.1 bilirubin, serum, total 0.30 mg/dL 0.00-1.00 cholesterol, serum 195 mg/dL 740-904 6696/03/16 triglyceride, serum, fasting 138 mg/dL 30-200 HDL [...] Panel - Chemistry sodium, serum 133 mmol/L 853-962 2355/06/03 carbon dioxide, venous blood 33.4 mmol/L 21.0-32.0 [...] Yes Encounters Code Encounter Date Provider Facility CPT-36920 Level 3 Est. Patient 16:21:23 CDT Celestine PEARCE [facility] CPT-52185 Level 3 Est. Patient 17:02:56 CDT Gabriel Hunt DO [facility] CPT-39133 Level 3 Est. Patient 14:46:22 CDT Da Romero [facility] CPT-55443 Level 4 Est. Patient 13:55:20 CDT Ang Markham MD [facility] CPT-92689 Level 4 Est. Patient 16:10:09 CDT Celestine Huerta [facility] CPT-54817 Level 3 Est. Patient 13:51:24 CDT Ang Markham MD [facility] CPT-24720 Level 3 Est. Patient 18:42:15 CDT Gabriel Hunt [facility] CPT-02687 Level 5 Est. Patient 14:40:14 CDT Celestine Huerta [facility] CPT-78699 Level 4 Est. Patient 14:36:17 CDT Ang Markham MD [facility] CPT-75740 Level 3 Est. Patient 11:13:47 HEAD TRANSFER CLERK Ang Markham MD [facility] CPT-36569 Level 3 Est. Patient 11:59:20 HEAD TRANSFER CLERK Gloria Dunbar [facility] CPT-56205 Level 3 Est. Patient 17:32:37 HEAD TRANSFER CLERK Gloria Dunbar [facility] CPT-26188 Level 4 Est. Patient 16:39:07 CDT Ang Markham MD [facility] CPT-76909 Level 3 Est. Patient 16:35:50 CDT Ang Markham MD [facility] CPT-16991 Level 4 Est. Patient 13:53:06 HEAD TRANSFER CLERK Ang Markham MD [facility] CPT-53899 Level 3 Est. Patient 08:58:08 HEAD TRANSFER CLERK Ang Markham MD [facility] CPT-68822 Level 3 Est. Patient 18:48:29 CDT Anthony CARBONE [facility] CPT-23926 Level 3 Est. Patient 12:16:59 CDT Gabriel Hunt DO [facility] CPT-24576 Level 3 Est. Patient 18:57:15 CDT Anthony CARBONE [facility] CPT-39839 Level 3 Est. Patient 13:59:22 HEAD TRANSFER CLERK Ang Markham MD [facility] CPT-09705 Level 4 Est. Patient 10:36:08 HEAD TRANSFER CLERK Ang Markham MD [facility] CPT-61524 Level 3 Est. Patient 16:27:02 CDT Eri Borges MD PhD [facility] CPT-77063 Level 3 Est. Patient 10:36:43 CDT Octaviano Dempsey [facility] CPT-93480 Level 4 New Patient 08:58:06 CDT Ang Markham MD [facility] Procedures Code Procedure Name Date Entry Date Standard Description CPT-58737 Abd compl w upright - XRAY USE ONLY 14:09:39 CDT 02/28 CPT-91004 Venipuncture Draw Fee 12:25:15 CDT CPT-54584 Knee 3V 16:48:40 CDT CPT-OV Office Visit 16:27:13 CDT CPT-OV Office Visit 16:21:19 CDT CPT-43606 Sono pelvis non OB uterus ovaries cervix 09:37:28 CDT
--- OUTSIDE RECORDS SUMMARY | 2018-12-22 02:09 | XMS REPORT | Clinical Summary ---
Author Author Admin, QIE Organization [employer] Address Unknown Phone Unavailable Allergies, Adverse Reactions, [...] 1 po BID PRN Constipation DOCUSATE SODIUM 07516990253 Active Ang Markham MD Active PAXIL 20 MG TAB 1 tablet by mouth daily PAROXETINE HCL 49491407060 Active Ang Markham MD Active GENTAMICIN SULFATE 0.1 % EXT OINT Apply to open sores once a day. GENTAMICIN SULFATE 98732671077 No Longer Active Ang Markham MD Active ZOLPIDEM TARTRATE 10 MG TABS 1 po qHS PRN Insomnia ZOLPIDEM TARTRATE 18141951916 Active Ang Markham MD Active BACTRIM DS 800-160 MG TAB 1 tab by mouth twice daily TRIMETHOPRIM-SULFAMETHOXAZOLE 98920303956 No Longer Active Gloria Dunbar PLATER HELPER Active LEVEMIR FLEXTOUCH 100 UNIT/ML SC SOPN 40 units SC nightly INSULIN DETEMIR 36030057698 Active Ang Markham MD Active LEVEMIR FLEXPEN 100 UNIT/ML SOLN 40 units SC at bedtime INSULIN DETEMIR No Longer Active Susan Arellano RMA Active INSUPEN ULTRAFIN 31G X 6 MM MISC Use with insulin qid. DX: E11.9 INSULIN PEN NEEDLE 47311411806 Active Ang Markham MD Active ZOLOFT 100 MG TAB 1 po qHS SERTRALINE HCL 82114997693 No Longer Active Ang Markham MD Active MELOXICAM 15 MG TABS 1 po qd PRN Knee Pain MELOXICAM 06276824165 No Longer Active Ang Markham MD Active LIPITOR 40 MG TAB 1 po qHS ATORVASTATIN CALCIUM 95391606949 Active Ang Markham MD Active METFORMIN HCL 1000 MG TABS 1 tablet by mouth twice daily METFORMIN HCL 94942129578 Active Ang Markham MD Active CYCLOBENZAPRINE HCL 5 MG TABS 1 po qHS PRN Muscle pain CYCLOBENZAPRINE HCL 65942251196 Active Ang Markham MD Active COLACE 100 MG CAP 1 po BID PRN Constipation DOCUSATE SODIUM 26180466256 No Longer Active Ang Markham MD Active HYDROXYZINE HCL 25 MG TAB 1 TID PRN nerves HYDROXYZINE HCL 88325716578 Active Ang Markham MD Active IBUPROFEN 800 MG TABS 1 tab every 8 hours as needed for pain 2013 IBUPROFEN 90851750271 No Longer Active Ang Markham MD Active NITROFURANTOIN MACROCRYSTAL 100 MG CAPS 1 capsule PO bid x 7 days NITROFURANTOIN MACROCRYSTAL 68343139745 No Longer Active Ang Markham MD Active DIFLUCAN 150 MG TAB 1 qODay x 2 doses FLUCONAZOLE 05634658495 No Longer Active Da Romero PLATER HELPER Active CEFTIN 500 MG TAB 1 tablet by mouth twice daily for 7 days 07/24 CEFUROXIME AXETIL 22081798260 No Longer Active Anthony CARBONE Active ZOLOFT 50 MG TAB 1 tablet by mouth daily SERTRALINE HCL 85829680481 No Longer Active Anthony CARBONE Active ANUSOL-HC 2.5 % CREAM apply as needed HYDROCORTISONE (RECTAL) 53637327775 No Longer Active Anthony CARBONE Active COLACE 100 MG CAP 1 tab PO BID DOCUSATE SODIUM 85997055956 No Longer Active Anthony CARBONE Active TRINESSA (28) 0.18/0.215/0.25 MG-35 MCG TABS 1 po qd as directed NORGESTIM-ETH ESTRAD TRIPHASIC 59038619962 No Longer Active Anthony CARBONE Active [facility] MELATONIN 5 MG TABS 1-2 po qHS PRN Insomnia MELATONIN 72771841766 No Longer Active Anthony CARBONE Active NOVOLOG FLEXPEN 100 UNIT/ML SOPN Take 18 units TID with meals INSULIN ASPART 56008775901 Active Codey Hdez MD Active ACYCLOVIR 400 MG TABS ACYCLOVIR 16642547352 No Longer Active Ang Markham MD Active EMBRACE BLOOD GLUCOSE TEST STRP Test blood sugars 4 times daily and PRN 08/05 GLUCOSE BLOOD 22759079724 Active Ang Markham MD Active HYDROXYZINE HCL 25 MG TABS 1 tab PO tid PRN itching HYDROXYZINE HCL 40701390830 No Longer Active Ang Markham MD Active DIFLUCAN 150 MG TAB 1 qODay x 2 doses FLUCONAZOLE 70214861636 No Longer Active Da Romero APRN Active ACYCLOVIR 400 MG TABS 1 pill twice daily ACYCLOVIR 17369124861 No Longer Active Jillina Nick OSHEA Active AZITHROMYCIN 250 MG TABS 2 po qd x 1 day, then 1 po qd x 4 days AZITHROMYCIN 12159570072 No Longer Active Eri Borges MD PhD Active AZITHROMYCIN 250 MG TABS take 2 po day 1 then take1 po days 2-5 AZITHROMYCIN 30900808878 No Longer Active Octaviano CARBONE Active ACYCLOVIR 400 MG TABS 1 po qd ACYCLOVIR 51674043725 No Longer Active Ang Markham MD Active PROZAC 40 MG CAPS 1 cap by mouth at bedtime FLUOXETINE HCL 84878150706 No Longer Active Ang Markham MD Active HYDROXYZINE HCL 25 MG TABS 1 tab PO tid PRN itching HYDROXYZINE HCL 25 MG TABS 945849 HYDROXYZINE HCL Inactive [facility] MELATONIN 5 MG TABS 1-2 po qHS PRN Insomnia [facility] MELATONIN 5 MG TABS 837475 MELATONIN Inactive TRINESSA (28) 0.18/0.215/0.25 MG-35 MCG TABS 1 po qd as directed TRINESSA (28) 0.18/0.215/0.25 MG-35 MCG TABS 924394 NORGESTIM-ETH ESTRAD TRIPHASIC Inactive COLACE 100 MG CAP 1 tab PO BID COLACE 100 MG CAP 9412781 DOCUSATE SODIUM Inactive ANUSOL-HC 2.5 % CREAM apply as needed ANUSOL-HC 2.5 % CREAM 681991 HYDROCORTISONE (RECTAL) Inactive ZOLOFT 50 MG TAB 1 tablet by mouth daily ZOLOFT 50 MG TAB 786867 SERTRALINE HCL Inactive CEFTIN 500 MG TAB 1 tablet by mouth twice daily for 7 days 07/24 CEFTIN 500 MG TAB 609236 CEFUROXIME AXETIL Inactive NITROFURANTOIN MACROCRYSTAL 100 MG CAPS 1 capsule PO bid x 7 days NITROFURANTOIN MACROCRYSTAL 100 MG CAPS 1040877 NITROFURANTOIN MACROCRYSTAL Inactive IBUPROFEN 800 MG TABS 1 tab every 8 hours as needed for pain 2013 IBUPROFEN 800 MG TABS 797194 IBUPROFEN Inactive COLACE 100 MG CAP 1 po BID PRN Constipation COLACE 100 MG CAP 5205247 DOCUSATE SODIUM Inactive MELOXICAM 15 MG TABS 1 po qd PRN Knee Pain MELOXICAM 15 MG TABS 138177 MELOXICAM Inactive LEVEMIR FLEXPEN 100 UNIT/ML SOLN 40 units SC at bedtime LEVEMIR FLEXPEN 100 UNIT/ML SOLN INSULIN DETEMIR Inactive GENTAMICIN SULFATE 0.1 % EXT OINT Apply to open sores once a day. GENTAMICIN SULFATE 0.1 % EXT OINT 872981 GENTAMICIN SULFATE Inactive ACYCLOVIR 400 MG TABS 1 po qd ACYCLOVIR 400 MG TABS 19720928 ACYCLOVIR Inactive AZITHROMYCIN 250 MG TABS take 2 po day 1 then take1 po days 2-5 AZITHROMYCIN 250 MG TABS 3415165 AZITHROMYCIN Inactive AZITHROMYCIN 250 MG TABS 2 po qd x 1 day, then 1 po qd x 4 days AZITHROMYCIN 250 MG TABS 1241198 AZITHROMYCIN Inactive ACYCLOVIR 400 MG TABS 1 pill twice daily ACYCLOVIR 400 MG TABS 672542 ACYCLOVIR Inactive DIFLUCAN 150 MG TAB 1 qODay x 2 doses DIFLUCAN 150 MG TAB 675811 FLUCONAZOLE Inactive ACYCLOVIR 400 MG TABS ACYCLOVIR 400 MG TABS 249816 ACYCLOVIR Inactive DIFLUCAN 150 MG TAB 1 qODay x 2 doses DIFLUCAN 150 MG TAB 910250 FLUCONAZOLE Inactive BACTRIM DS 800-160 MG TAB 1 tab by mouth twice daily BACTRIM DS 800-160 MG TAB 766894 TRIMETHOPRIM-SULFAMETHOXAZOLE Inactive Advance Directives Directive Description Start [...] HGBA1C - Chemistry sodium, serum 134 mmol/L 238-318 0496/03/16 carbon dioxide, venous blood 34.5 mmol/L 21.0-32.0 potassium, serum 4.6 mmol/L 3.5-5.2 chloride, serum 93 mmol/L 98-107 blood glucose 408 mg/dL 65-110 urea nitrogen, blood 3 mg/dL 7-18 creatinine, serum 0.58 mg/dL 0.55-1.30 alanine aminotransferase (SGPT), serum 11 U/L 12-78 aspartate aminotransferase (SGOT), serum 8 U/L 15-37 calcium, serum 9.2 mg/dL 8.5-10.1 bilirubin, serum, total 0.30 mg/dL 0.00-1.00 cholesterol, serum 195 mg/dL 681-793 0564/03/16 triglyceride, serum, fasting 138 mg/dL 30-200 HDL [...] 0-19 Encounters Code Encounter Date Provider Facility CPT-40730 Level 3 Est. Patient 11:13:47 PLANNING SUPERVISOR Ang Markham MD [facility] CPT-23497 Level 3 Est. Patient 11:59:20 PLANNING SUPERVISOR Gloria Dunbar [facility] CPT-40295 Level 3 Est. Patient 17:32:37 PLANNING SUPERVISOR Gloria Dunbar [facility] CPT-66706 Level 4 Est. Patient 16:39:07 CDT Ang Markham MD [facility] CPT-34717 Level 3 Est. Patient 16:35:50 CDT Ang Markham MD [facility] CPT-58179 Level 4 Est. Patient 13:53:06 PLANNING SUPERVISOR Ang Markham MD [facility] CPT-03459 Level 3 Est. Patient 08:58:08 PLANNING SUPERVISOR Ang Markham MD [facility] CPT-20068 Level 3 Est. Patient 18:48:29 CDT Anthony Whitfield [facility] CPT-21241 Level 3 Est. Patient 12:16:59 CDT Gabriel Hunt DO [facility] CPT-54849 Level 3 Est. Patient 18:57:15 CDT Anthony Whitfield [facility] CPT-58883 Level 3 Est. Patient 13:59:22 PLANNING SUPERVISOR Ang Markhma MD [facility] CPT-68031 Level 4 Est. Patient 10:36:08 PLANNING SUPERVISOR Ang Markham MD [facility] CPT-73957 Level 3 Est. Patient 16:27:02 CDT Eri Borges MD PhD [facility] CPT-62156 Level 3 Est. Patient 10:36:43 CDT Octaviano CARBONE [facility] CPT-66045 Level 4 New Patient 08:58:06 CDT Ang Markham MD [facility] Procedures Code Procedure Name Date Entry Date Standard Description CPT-05059 Venipuncture Draw Fee 12:25:15 CDT CPT-15643 Knee 3V 16:48:40 CDT CPT-OV Office Visit 16:27:13 CDT CPT-OV Office Visit 16:21:19 CDT CPT-28305 Sono pelvis non OB uterus ovaries cervix 09:37:28 CDT
--- OUTSIDE RECORDS SUMMARY | 2018-12-22 02:10 | XMS REPORT | Clinical Summary ---
Author Author Admin, E Organization [facility] Address Unknown Phone Unavailable Allergies, [...] Resolved Ang Markham MD Acute swimmers' ear FPC use 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 V58.67 Active Celestine PEARCE Long-term (current) use of insulin Low back pain, acute 724.2 Active Shreya Velazquez INFORMATION SYSTEMS SPECIALIST Lumbago Pharyngitis, acute / sore throat 462 [...] MD Anal or rectal pain ICD-569.42 Inactive nAg Markham MD CANDIDAL VAGINITIS ICD-112.1 Nathan Markham [...] MG CAP 1 po daily DOCUSATE SODIUM 62279872198 No Longer Active Jillina Frazell INFORMATION SYSTEMS SPECIALIST Active CARAFATE 1 GM/10ML ORAL SUSP 5 mg four times daily SUCRALFATE 97327952302 Active Jillina Frazell INFORMATION SYSTEMS SPECIALIST Active ZANTAC 150 MG TAB 1 po BID RANITIDINE HCL 32898571626 No Longer Active Jillina Frazell INFORMATION SYSTEMS SPECIALIST Active HYDROXYZINE HCL 25 MG TAB 1 TID PRN nerves HYDROXYZINE HCL 49723376319 No Longer Active Jillina Frazell INFORMATION SYSTEMS SPECIALIST Active CLINDAMYCIN HCL 300 MG ORAL CAPS 1 four times a day CLINDAMYCIN HCL 89533419460 No Longer Active Jillina Frazell INFORMATION SYSTEMS SPECIALIST Active TYLENOL WITH CODEINE #3 300-30 MG TABS 1 every four hours as needed for pain ACETAMINOPHEN-CODEINE 79535264743 Active Conner Hills MD Active LEVAQUIN 500 MG TABS 1 daily for infection LEVOFLOXACIN 80170016326 No Longer Active Conner Hills MD Active DOXEPIN HCL 10 MG CAP 1 tablet nightly for the itch DOXEPIN HCL 34117975461 No Longer Active Conner Hills MD Active TRESIBA FLEXTOUCH 200 UNIT/ML SC SOPN Take 70 units daily at mid-night to 1 am. INSULIN DEGLUDEC 36061353000 No Longer Active Conner Hills MD Active METFORMIN HCL 1000 MG TABS 1 tablet by mouth twice daily METFORMIN HCL 10246948530 No Longer Active Conner Hills MD Active LIPITOR 40 MG TAB 1 po qHS ATORVASTATIN CALCIUM 35083007018 No Longer Active Conner Hills MD Active GEMFIBROZIL 600 MG TABS 1 po BID GEMFIBROZIL 81374202967 No Longer Active Conner Hills MD Active CORTISPORIN 3.5-87229-4 SOLN 4gtts in affected ear QID x 7 days [id number] 73851453295 No Longer Active Ang Markahm MD Active LEVEMIR FLEXTOUCH 100 UNIT/ML SC SOPN 35 units SC at 12-1pm, 35 units 12-1am INSULIN DETEMIR 76749409105 No Longer Active Celestine PEARCE Active REGLAN 10 MG TAB 0.5 po TID 30min prior to meals METOCLOPRAMIDE HCL 38584159225 Active Ang Markham MD Active NOVOLOG FLEXPEN 100 UNIT/ML SOPN Take 20 units TID with meals, plus 2u/50 for blood sugars above 150. Ratio vs. Carbs INSULIN ASPART 33449010097 Active Gabriel Hunt DO Active BD PEN NEEDLE DINESH U/F 32G X 4 MM MISC 5 a day INSULIN PEN NEEDLE 61261533694 Active Malstepheneh Ziglari REPRESENTATIVE PERSONAL SERVICE Active EMBRACE BLOOD GLUCOSE TEST STRP Test blood sugars 4 times daily and PRN 08/05 GLUCOSE BLOOD 77835116095 No Longer Active Malstepheneh Rigoglari REPRESENTATIVE PERSONAL SERVICE Active TRUEPLUS LANCETS 30G MISC 4 a day LANCETS 33503736209 Active Maliheh Ziglari REPRESENTATIVE PERSONAL SERVICE Active TRUETEST TEST STRP check blood sugars 4x/day GLUCOSE BLOOD 51627853801 Active Maliheh Ziglari REPRESENTATIVE PERSONAL SERVICE Active TRUERESULT BLOOD GLUCOSE W/DEVICE KIT check blood sugars 4x a day BLOOD GLUCOSE MONITORING SUPPL 46094704321 Active Malstepheneh Ziglari REPRESENTATIVE PERSONAL SERVICE Active LISINOPRIL 5 MG TABS 1 po qd LISINOPRIL 39178490932 Active Ang Markham MD Active PAXIL 20 MG TAB 1 tablet by mouth daily PAROXETINE HCL 42438197154 Active Ang Markham MD Active GENTAMICIN SULFATE 0.1 % EXT OINT Apply to open sores once a day. GENTAMICIN SULFATE 08465227628 No Longer Active Ang Markham MD Active ZOLPIDEM TARTRATE 10 MG TABS 1 po qHS PRN Insomnia ZOLPIDEM TARTRATE 01237462744 Active Ang Markham MD Active BACTRIM DS 800-160 MG TAB 1 tab by mouth twice daily TRIMETHOPRIM-SULFAMETHOXAZOLE 88372566488 No Longer Active Gloria Yokum INFORMATION SYSTEMS SPECIALIST Active LEVEMIR FLEXPEN 100 UNIT/ML SOLN 40 units SC at bedtime INSULIN DETEMIR No Longer Active Susan Adan RMA Active INSUPEN ULTRAFIN 31G X 6 MM MISC Use with insulin qid. DX: E11.9 INSULIN PEN NEEDLE 88159277232 Active Ang Markham MD Active ZOLOFT 100 MG TAB 1 po qHS SERTRALINE HCL 08719613503 No Longer Active Ang Markham MD Active MELOXICAM 15 MG TABS 1 po qd PRN Knee Pain MELOXICAM 47455156618 No Longer Active Ang Markham MD Active CYCLOBENZAPRINE HCL 5 MG TABS 1 po qHS PRN Muscle pain CYCLOBENZAPRINE HCL 91939229869 Active Ang Markham MD Active COLACE 100 MG CAP 1 po BID PRN Constipation DOCUSATE SODIUM 53427683756 No Longer Active Ang Markham MD Active IBUPROFEN 800 MG TABS 1 tab every 8 hours as needed for pain 2013 IBUPROFEN 45183780358 No Longer Active Ang Markham MD Active NITROFURANTOIN MACROCRYSTAL 100 MG CAPS 1 capsule PO bid x 7 days NITROFURANTOIN MACROCRYSTAL 92217666816 No Longer Active Ang Markham MD Active DIFLUCAN 150 MG TAB 1 qODay x 2 doses FLUCONAZOLE 04977138067 No Longer Active Da Romero APRN Active CEFTIN 500 MG TAB 1 tablet by mouth twice daily for 7 days 07/24 CEFUROXIME AXETIL 74312884362 No Longer Active Anthony CARBONE Active ZOLOFT 50 MG TAB 1 tablet by mouth daily SERTRALINE HCL 36794308438 No Longer Active Anthony CARBONE Active ANUSOL-HC 2.5 % CREAM apply as needed HYDROCORTISONE (RECTAL) 85694819511 No Longer Active Anthony CARBONE Active COLACE 100 MG CAP 1 tab PO BID DOCUSATE SODIUM 86070750781 No Longer Active Anthony CARBONE Active TRINESSA (28) 0.18/0.215/0.25 MG-35 MCG TABS 1 po qd as directed NORGESTIM-ETH ESTRAD TRIPHASIC 81499388157 No Longer Active Anthony CARBONE Active [facility] MELATONIN 5 MG TABS 1-2 po qHS PRN Insomnia MELATONIN 60673256730 No Longer Active Anthony CARBONE Active ACYCLOVIR 400 MG TABS ACYCLOVIR 05896566876 No Longer Active Ang Markham MD Active HYDROXYZINE HCL 25 MG TABS 1 tab PO tid PRN itching HYDROXYZINE HCL 44785904394 No Longer Active nAg Markham MD Active DIFLUCAN 150 MG TAB 1 qODay x 2 doses FLUCONAZOLE 34329473860 No Longer Active Da Romero APRN Active ACYCLOVIR 400 MG TABS 1 pill twice daily ACYCLOVIR 03742361344 No Longer Active Josephllpiedad Romero APRN Active AZITHROMYCIN 250 MG TABS 2 po qd x 1 day, then 1 po qd x 4 days AZITHROMYCIN 30424087060 No Longer Active Eri Borges MD PhD Active AZITHROMYCIN 250 MG TABS take 2 po day 1 then take1 po days 2-5 AZITHROMYCIN 92242635693 No Longer Active Octaviano CARBONE Active ACYCLOVIR 400 MG TABS 1 po qd ACYCLOVIR 49385854776 No Longer Active Ang Markham MD Active PROZAC 40 MG CAPS 1 cap by mouth at bedtime FLUOXETINE HCL 57749112893 No Longer Active Ang Markham MD Active HYDROXYZINE HCL 25 MG TABS 1 tab PO tid PRN itching HYDROXYZINE HCL 25 MG TABS 831179 HYDROXYZINE HCL Inactive [facility] MELATONIN 5 MG TABS 1-2 po qHS PRN Insomnia [facility] MELATONIN 5 MG TABS 604706 MELATONIN Inactive TRINESSA (28) 0.18/0.215/0.25 MG-35 MCG TABS 1 po qd as directed TRINESSA (28) 0.18/0.215/0.25 MG-35 MCG TABS 994429 NORGESTIM-ETH ESTRAD TRIPHASIC Inactive COLACE 100 MG CAP 1 tab PO BID COLACE 100 MG CAP 4688685 DOCUSATE SODIUM Inactive ANUSOL-HC 2.5 % CREAM apply as needed ANUSOL-HC 2.5 % CREAM 493707 HYDROCORTISONE (RECTAL) Inactive ZOLOFT 50 MG TAB 1 tablet by mouth daily ZOLOFT 50 MG TAB 677646 SERTRALINE HCL Inactive CEFTIN 500 MG TAB 1 tablet by mouth twice daily for 7 days 07/24 CEFTIN 500 MG TAB 418371 CEFUROXIME AXETIL Inactive NITROFURANTOIN MACROCRYSTAL 100 MG CAPS 1 capsule PO bid x 7 days NITROFURANTOIN MACROCRYSTAL 100 MG CAPS 7725385 NITROFURANTOIN MACROCRYSTAL Inactive IBUPROFEN 800 MG TABS 1 tab every 8 hours as needed for pain 2013 IBUPROFEN 800 MG TABS 292700 IBUPROFEN Inactive COLACE 100 MG CAP 1 po BID PRN Constipation COLACE 100 MG CAP 5576779 DOCUSATE SODIUM Inactive MELOXICAM 15 MG TABS 1 po qd PRN Knee Pain MELOXICAM 15 MG TABS 799000 MELOXICAM Inactive LEVEMIR FLEXPEN 100 UNIT/ML SOLN 40 units SC at bedtime LEVEMIR FLEXPEN 100 UNIT/ML SOLN INSULIN DETEMIR Inactive GENTAMICIN SULFATE 0.1 % EXT OINT Apply to open sores once a day. GENTAMICIN SULFATE 0.1 % EXT OINT 975645 GENTAMICIN SULFATE Inactive EMBRACE BLOOD GLUCOSE TEST STRP Test blood sugars 4 times daily and PRN 08/05 EMBRACE BLOOD GLUCOSE TEST STRP GLUCOSE BLOOD Inactive LEVEMIR FLEXTOUCH 100 UNIT/ML SC SOPN 35 units SC at 12-1pm, 35 units 12-1am LEVEMIR FLEXTOUCH 100 UNIT/ML SC SOPN INSULIN DETEMIR Inactive CORTISPORIN 3.5-58554-9 SOLN 4gtts in affected ear QID x 7 days CORTISPORIN 3.5-25071-0 SOLN 651946 [id number] Inactive GEMFIBROZIL 600 MG TABS 1 po BID GEMFIBROZIL 600 MG TABS 705124 GEMFIBROZIL Inactive LIPITOR 40 MG TAB 1 po qHS LIPITOR 40 MG TAB 023536 ATORVASTATIN CALCIUM Inactive METFORMIN HCL 1000 MG TABS 1 tablet by mouth twice daily METFORMIN HCL 1000 MG TABS 798635 METFORMIN HCL Inactive TRESIBA FLEXTOUCH 200 UNIT/ML SC SOPN Take 70 units daily at mid-night to 1 am. TRESIBA FLEXTOUCH 200 UNIT/ML SC SOPN INSULIN DEGLUDEC Inactive DOXEPIN HCL 10 MG CAP 1 tablet nightly for the itch DOXEPIN HCL 10 MG CAP 1346835 DOXEPIN HCL Inactive LEVAQUIN 500 MG TABS 1 daily for infection LEVAQUIN 500 MG TABS 824035 LEVOFLOXACIN Inactive CLINDAMYCIN HCL 300 MG ORAL CAPS 1 four times a day CLINDAMYCIN HCL 300 MG ORAL CAPS 861288 CLINDAMYCIN HCL Inactive HYDROXYZINE HCL 25 MG TAB 1 TID PRN nerves HYDROXYZINE HCL 25 MG TAB 935204 HYDROXYZINE HCL Inactive ZANTAC 150 MG TAB 1 po BID ZANTAC 150 MG TAB 707252 RANITIDINE HCL Inactive COLACE 100 MG CAP 1 po daily COLACE 100 MG CAP 0109252 DOCUSATE SODIUM Inactive ACYCLOVIR 400 MG TABS 1 po qd ACYCLOVIR 400 MG TABS 19720928 ACYCLOVIR Inactive AZITHROMYCIN 250 MG TABS take 2 po day 1 then take1 po days 2-5 AZITHROMYCIN 250 MG TABS 1061921 AZITHROMYCIN Inactive AZITHROMYCIN 250 MG TABS 2 po qd x 1 day, then 1 po qd x 4 days AZITHROMYCIN 250 MG TABS 7479857 AZITHROMYCIN Inactive ACYCLOVIR 400 MG TABS 1 pill twice daily ACYCLOVIR 400 MG TABS 19720928 ACYCLOVIR Inactive DIFLUCAN 150 MG TAB 1 qODay x 2 doses DIFLUCAN 150 MG TAB 19760606 FLUCONAZOLE Inactive ACYCLOVIR 400 MG TABS ACYCLOVIR 400 MG TABS 19720928 ACYCLOVIR Inactive DIFLUCAN 150 MG TAB 1 qODay x 2 doses DIFLUCAN 150 MG TAB 018984 FLUCONAZOLE Inactive BACTRIM DS 800-160 MG TAB [...] Panel - Chemistry sodium, serum 130 mmol/L 036-410 0578/10/12 carbon dioxide, venous blood 28.1 mmol/L 21.0-32.0 potassium, serum 3.9 mmol/L 3.5-5.2 chloride, serum 91 mmol/L 98-107 blood glucose 547 mg/dL 65-110 urea nitrogen, blood 3 mg/dL 7-18 creatinine, serum 0.78 mg/dL 0.55-1.30 alanine aminotransferase (SGPT), serum 11 U/L 12-78 aspartate aminotransferase (SGOT), serum 7 U/L 15-37 calcium, serum 8.8 mg/dL 8.5-10.1 bilirubin, serum, total 0.30 mg/dL 0.00-1.00 cholesterol, serum 221 mg/dL 336-871 1132/10/12 triglyceride, serum, fasting 590 mg/dL 30-200 HDL cholesterol, serum 45 mg/dL 32-96 LDL cholesterol, serum 58 mg/dL 0-130 Encounters Code Encounter Date Provider Facility CPT-47538 Level 3 Est. Patient 14:52:33 CDT Da Romero [facility] CPT-12868 Level 3 Est. Patient 10:22:30 CDT Conner Hills MD [facility] CPT-23283 Level 3 Est. Patient 15:02:19 CDT Shreya Velazquez [facility] CPT-50325 Level 3 Est. Patient 13:22:25 CDT Gabriel Hunt [facility] CPT-32695 Level 4 Est. Patient 16:02:22 CDT Ang Markham MD [facility] CPT-35229 Level 3 Est. Patient 16:21:23 CDT Celestine Huerta [facility] [place] CPT-88822 Level 3 Est. Patient 17:02:56 CDT Gabriel Hunt [facility] CPT-40568 Level 3 Est. Patient 14:46:22 CDT Da Romero [facility] CPT-60184 Level 4 Est. Patient 13:55:20 CDT Ang Markham MD [facility] CPT-58188 Level 4 Est. Patient 16:10:09 CDT Celestine Huerta [facility] [place] CPT-14142 Level 3 Est. Patient 13:51:24 CDT Ang Markham MD [facility] CPT-88399 Level 3 Est. Patient 18:42:15 CDT Gabriel Hunt [facility] CPT-36421 Level 5 Est. Patient 14:40:14 CDT Celestine Huerta RAMSES [facility] CPT-90962 Level 4 Est. Patient 14:36:17 CDT Ang Markham MD [facility] CPT-00609 Level 3 Est. Patient 11:13:47 CONCESSION ATTENDANT Ang Markham MD [facility] CPT-33837 Level 3 Est. Patient 11:59:20 CONCESSION ATTENDANT Gloria Dunbar [facility] CPT-49404 Level 3 Est. Patient 17:32:37 CONCESSION ATTENDANT Gloria Dunbar [facility] CPT-93669 Level 4 Est. Patient 16:39:07 CDT Ang Markham MD [facility] CPT-30166 Level 3 Est. Patient 16:35:50 CDT Ang Markham MD [facility] CPT-99111 Level 4 Est. Patient 13:53:06 CONCESSION ATTENDANT Ang Markham MD [facility] CPT-99986 Level 3 Est. Patient 08:58:08 CONCESSION ATTENDANT Ang Markham MD [facility] CPT-68178 Level 3 Est. Patient 18:48:29 CDT Anthony Whitfield [facility] CPT-74554 Level 3 Est. Patient 12:16:59 CDT Gabriel Hunt DO [facility] CPT-35983 Level 3 Est. Patient 18:57:15 CDT Anthony Whitfield [facility] CPT-59009 Level 3 Est. Patient 13:59:22 CONCESSION ATTENDANT Ang Markham MD [facility] CPT-36395 Level 4 Est. Patient 10:36:08 CONCESSION ATTENDANT Agn Markham MD [facility] CPT-85968 Level 3 Est. Patient 16:27:02 CDT Eri Borges MD PhD [facility] CPT-64225 Level 3 Est. Patient 10:36:43 CDT Octaviano CARBONE [facility] CPT-01970 Level 4 New Patient 08:58:06 CDT Ang Markham MD [facility] Procedures Code Procedure Name Date Entry Date Standard Description CPT-06089 LS spine comp w obliques - XRAY USE ONLY 15:34:48 CDT CPT-73514 Lipid - LAB USE ONLY 15:28:39 CDT CPT-32463 CMP - LAB USE ONLY 15:28:39 CDT CPT-31135 Venipuncture Draw Fee 15:28:39 CDT CPT-83174 Abd compl w upright - XRAY USE ONLY 14:09:39 CDT 02/28 CPT-97838 Venipuncture Draw Fee 12:25:15 CDT CPT-74994 Knee 3V 16:48:40 CDT CPT-OV Office Visit 16:27:13 CDT CPT-OV Office Visit 16:21:19 CDT CPT-31069 Sono pelvis non OB uterus ovaries cervix 09:37:28 CDT
--- OUTSIDE RECORDS SUMMARY | 2018-12-22 02:11 | XMS REPORT | Clinical Summary ---
Author Author Admin, E Organization [facility] Address Unknown Phone Unavailable Allergies, Adverse Reactions, [...] Inactive nAg Markham MD CANDIDAL VAGINITIS ICD-112.1 Inactive nAg Markham MD Joint crepitus, knee ICD-719.66 Nathan [...] 600 MG TABS 1 po BID GEMFIBROZIL 83569855108 Active Ang Markham MD Active CORTISPORIN 3.5-11861-7 SOLN 4gtts in affected ear QID x 7 days [id number] 27311353645 No Longer Active Ang Markham MD Active TRESIBA FLEXTOUCH 200 UNIT/ML SC SOPN Take 70 units daily at mid-night to 1 am. INSULIN DEGLUDEC 35403467729 Active Celestine Sierraglari MAINTENANCE WORKER SWIMMING POOL Active LEVEMIR FLEXTOUCH 100 UNIT/ML SC SOPN 35 units SC at 12-1pm, 35 units 12-1am INSULIN DETEMIR 12294894325 No Longer Active Celestine PEARCE Active REGLAN 10 MG TAB 0.5 po TID 30min prior to meals METOCLOPRAMIDE HCL 93967771975 Active Ang Markham MD Active ZANTAC 150 MG TAB 1 po BID RANITIDINE HCL 72363186146 Active Ang Markham MD Active DOXEPIN HCL 10 MG CAP 1 tablet nightly for the itch DOXEPIN HCL 77950999550 Active Ang Markham MD Active COLACE 100 MG CAP 1 po daily DOCUSATE SODIUM 71319893291 Active Gabriel Hunt DO Active NOVOLOG FLEXPEN 100 UNIT/ML SOPN Take 20 units TID with meals, plus 2u/50 for blood sugars above 150. Ratio vs. Carbs INSULIN ASPART 93887777837 Active Gabriel Hunt DO Active BD PEN NEEDLE DINESH U/F 32G X 4 MM MISC 5 a day INSULIN PEN NEEDLE 30189663268 Active Malstepheneh Ziglari MAINTENANCE WORKER SWIMMING POOL Active EMBRACE BLOOD GLUCOSE TEST STRP Test blood sugars 4 times daily and PRN 08/05 GLUCOSE BLOOD 24393556631 No Longer Active Malstepheneh Ziglari MAINTENANCE WORKER SWIMMING POOL Active TRUEPLUS LANCETS 30G MISC 4 a day LANCETS 17302604337 Active Maliheh Ziglari MAINTENANCE WORKER SWIMMING POOL Active TRUETEST TEST STRP check blood sugars 4x/day GLUCOSE BLOOD 76878190092 Active Maliheh Ziglari MAINTENANCE WORKER SWIMMING POOL Active TRUERESULT BLOOD GLUCOSE W/DEVICE KIT check blood sugars 4x a day BLOOD GLUCOSE MONITORING SUPPL 74579240883 Active Celestine PEARCE Active LISINOPRIL 5 MG TABS 1 po qd LISINOPRIL 35775843973 Active Ang Markham MD Active PAXIL 20 MG TAB 1 tablet by mouth daily PAROXETINE HCL 74637595258 Active Ang Markham MD Active GENTAMICIN SULFATE 0.1 % EXT OINT Apply to open sores once a day. GENTAMICIN SULFATE 55532343305 No Longer Active Ang Markham MD Active ZOLPIDEM TARTRATE 10 MG TABS 1 po qHS PRN Insomnia ZOLPIDEM TARTRATE 17427546011 Active Ang Markham MD Active BACTRIM DS 800-160 MG TAB 1 tab by mouth twice daily TRIMETHOPRIM-SULFAMETHOXAZOLE 87920946538 No Longer Active Gloria Dunbar MUSIC STORE MANAGER Active LEVEMIR FLEXPEN 100 UNIT/ML SOLN 40 units SC at bedtime INSULIN DETEMIR No Longer Active Susan Arellano RMA Active INSUPEN ULTRAFIN 31G X 6 MM MISC Use with insulin qid. DX: E11.9 INSULIN PEN NEEDLE 32010487887 Active Ang Markham MD Active ZOLOFT 100 MG TAB 1 po qHS SERTRALINE HCL 89574311123 No Longer Active Ang Markham MD Active MELOXICAM 15 MG TABS 1 po qd PRN Knee Pain MELOXICAM 66794369520 No Longer Active Ang Markham MD Active LIPITOR 40 MG TAB 1 po qHS ATORVASTATIN CALCIUM 14750989179 Active Ang Markham MD Active METFORMIN HCL 1000 MG TABS 1 tablet by mouth twice daily METFORMIN HCL 22089577247 Active Ang Markham MD Active CYCLOBENZAPRINE HCL 5 MG TABS 1 po qHS PRN Muscle pain CYCLOBENZAPRINE HCL 41474652499 Active Ang Markham MD Active COLACE 100 MG CAP 1 po BID PRN Constipation DOCUSATE SODIUM 11229222531 No Longer Active Ang Markham MD Active HYDROXYZINE HCL 25 MG TAB 1 TID PRN nerves HYDROXYZINE HCL 55504323967 Active Ang Markham MD Active IBUPROFEN 800 MG TABS 1 tab every 8 hours as needed for pain 2013 IBUPROFEN 55974384813 No Longer Active Ang Markham MD Active NITROFURANTOIN MACROCRYSTAL 100 MG CAPS 1 capsule PO bid x 7 days NITROFURANTOIN MACROCRYSTAL 85295535616 No Longer Active Ang Markham MD Active DIFLUCAN 150 MG TAB 1 qODay x 2 doses FLUCONAZOLE 23038343947 No Longer Active Jillpiedad Romero APRN Active CEFTIN 500 MG TAB 1 tablet by mouth twice daily for 7 days 07/24 CEFUROXIME AXETIL 54404328962 No Longer Active Anthony CARBONE Active ZOLOFT 50 MG TAB 1 tablet by mouth daily SERTRALINE HCL 94294161919 No Longer Active Anthony CARBONE Active ANUSOL-HC 2.5 % CREAM apply as needed HYDROCORTISONE (RECTAL) 26601269265 No Longer Active Anthony CARBONE Active COLACE 100 MG CAP 1 tab PO BID DOCUSATE SODIUM 97910095961 No Longer Active Anthony CARBONE Active TRINESSA (28) 0.18/0.215/0.25 MG-35 MCG TABS 1 po qd as directed NORGESTIM-ETH ESTRAD TRIPHASIC 67820205322 No Longer Active Anthony CARBONE Active [facility] MELATONIN 5 MG TABS 1-2 po qHS PRN Insomnia MELATONIN 78324080366 No Longer Active Anthony CARBONE Active ACYCLOVIR 400 MG TABS ACYCLOVIR 95306094711 No Longer Active Ang Markham MD Active HYDROXYZINE HCL 25 MG TABS 1 tab PO tid PRN itching HYDROXYZINE HCL 06718537970 No Longer Active Ang Markham MD Active DIFLUCAN 150 MG TAB 1 qODay x 2 doses FLUCONAZOLE 11487499179 No Longer Active Da Romero APRN Active ACYCLOVIR 400 MG TABS 1 pill twice daily ACYCLOVIR 22548589641 No Longer Active Da Romero APRN Active AZITHROMYCIN 250 MG TABS 2 po qd x 1 day, then 1 po qd x 4 days AZITHROMYCIN 53799266649 No Longer Active Eri Borges MD PhD Active AZITHROMYCIN 250 MG TABS take 2 po day 1 then take1 po days 2-5 AZITHROMYCIN 18822158237 No Longer Active Octaviano CARBONE Active ACYCLOVIR 400 MG TABS 1 po qd ACYCLOVIR 58643229515 No Longer Active Ang Markham MD Active PROZAC 40 MG CAPS 1 cap by mouth at bedtime FLUOXETINE HCL 63566480544 No Longer Active Ang Markham MD Active HYDROXYZINE HCL 25 MG TABS 1 tab PO tid PRN itching HYDROXYZINE HCL 25 MG TABS 983799 HYDROXYZINE HCL Inactive [facility] MELATONIN 5 MG TABS 1-2 po qHS PRN Insomnia [facility] MELATONIN 5 MG TABS 634982 MELATONIN Inactive TRINESSA (28) 0.18/0.215/0.25 MG-35 MCG TABS 1 po qd as directed TRINESSA (28) 0.18/0.215/0.25 MG-35 MCG TABS 618392 NORGESTIM-ETH ESTRAD TRIPHASIC Inactive COLACE 100 MG CAP 1 tab PO BID COLACE 100 MG CAP 4892260 DOCUSATE SODIUM Inactive ANUSOL-HC 2.5 % CREAM apply as needed ANUSOL-HC 2.5 % CREAM 392132 HYDROCORTISONE (RECTAL) Inactive ZOLOFT 50 MG TAB 1 tablet by mouth daily ZOLOFT 50 MG TAB 785289 SERTRALINE HCL Inactive CEFTIN 500 MG TAB 1 tablet by mouth twice daily for 7 days 07/24 CEFTIN 500 MG TAB 568081 CEFUROXIME AXETIL Inactive NITROFURANTOIN MACROCRYSTAL 100 MG CAPS 1 capsule PO bid x 7 days NITROFURANTOIN MACROCRYSTAL 100 MG CAPS 3669008 NITROFURANTOIN MACROCRYSTAL Inactive IBUPROFEN 800 MG TABS 1 tab every 8 hours as needed for pain 2013 IBUPROFEN 800 MG TABS 062361 IBUPROFEN Inactive COLACE 100 MG CAP 1 po BID PRN Constipation COLACE 100 MG CAP 0566683 DOCUSATE SODIUM Inactive MELOXICAM 15 MG TABS 1 po qd PRN Knee Pain MELOXICAM 15 MG TABS 031882 MELOXICAM Inactive LEVEMIR FLEXPEN 100 UNIT/ML SOLN 40 units SC at bedtime LEVEMIR FLEXPEN 100 UNIT/ML SOLN INSULIN DETEMIR Inactive GENTAMICIN SULFATE 0.1 % EXT OINT Apply to open sores once a day. GENTAMICIN SULFATE 0.1 % EXT OINT 465147 GENTAMICIN SULFATE Inactive EMBRACE BLOOD GLUCOSE TEST STRP Test blood sugars 4 times daily and PRN 08/05 EMBRACE BLOOD GLUCOSE TEST STRP GLUCOSE BLOOD Inactive LEVEMIR FLEXTOUCH 100 UNIT/ML SC SOPN 35 units SC at 12-1pm, 35 units 12-1am LEVEMIR FLEXTOUCH 100 UNIT/ML SC SOPN INSULIN DETEMIR Inactive CORTISPORIN 3.5-42062-0 SOLN 4gtts in affected ear QID x 7 days CORTISPORIN 3.5-62164-1 SOLN 376148 [id number] Inactive ACYCLOVIR 400 MG TABS 1 po qd ACYCLOVIR 400 MG TABS 934650 ACYCLOVIR Inactive AZITHROMYCIN 250 MG TABS take 2 po day 1 then take1 po days 2-5 AZITHROMYCIN 250 MG TABS 4548759 AZITHROMYCIN Inactive AZITHROMYCIN 250 MG TABS 2 po qd x 1 day, then 1 po qd x 4 days AZITHROMYCIN 250 MG TABS 9553900 AZITHROMYCIN Inactive ACYCLOVIR 400 MG TABS 1 [...] twice daily BACTRIM DS 800-160 MG TAB 803409 TRIMETHOPRIM-SULFAMETHOXAZOLE Inactive Advance Directives Directive Description Start [...] 0.30 mg/dL 0.00-1.00 cholesterol, serum 221 mg/dL 129-347 2301/10/12 triglyceride, serum, fasting 590 mg/dL 30-200 HDL [...] dipstick Negative Negative sodium, serum 133 mmol/L 796-303 2866/06/03 carbon dioxide, venous blood 33.4 mmol/L 21.0-32.0 [...] nitrite, urine, semiquantitative Negative Negative Lab Report: [facility] - Chemistry human chorionic [...] mg/dL Encounters Code Encounter Date Provider Facility CPT-60000 Level 3 Est. Patient 13:22:25 CDT Gabriel Hunt DO [facility] CPT-71458 Level 4 Est. Patient 16:02:22 CDT Ang Markham MD [facility] CPT-66498 Level 3 Est. Patient 16:21:23 CDT Celestine PEARCE [facility] CPT-94550 Level 3 Est. Patient 17:02:56 CDT Gabriel Hunt [facility] CPT-69434 Level 3 Est. Patient 14:46:22 CDT Da Romero [facility] CPT-71529 Level 4 Est. Patient 13:55:20 CDT Ang Markham MD [facility] CPT-50644 Level 4 Est. Patient 16:10:09 CDT Celestine Huerta [facility] CPT-88421 Level 3 Est. Patient 13:51:24 CDT Ang Markham MD [facility] CPT-91526 Level 3 Est. Patient 18:42:15 CDT Gabriel Hunt [facility] CPT-80203 Level 5 Est. Patient 14:40:14 CDT Celestine Huerta [facility] CPT-32010 Level 4 Est. Patient 14:36:17 CDT Ang Markham MD [facility] CPT-97655 Level 3 Est. Patient 11:13:47 DIGITAL STRATEGIST SENIOR MANAGER Ang Markham MD [facility] CPT-35734 Level 3 Est. Patient 11:59:20 DIGITAL STRATEGIST SENIOR MANAGER Gloria Dunbar [facility] CPT-49001 Level 3 Est. Patient 17:32:37 DIGITAL STRATEGIST SENIOR MANAGER Gloria Dunbar [facility] CPT-93280 Level 4 Est. Patient 16:39:07 CDT Ang Markham MD [facility] CPT-58044 Level 3 Est. Patient 16:35:50 CDT Ang Markham MD [facility] CPT-26268 Level 4 Est. Patient 13:53:06 DIGITAL STRATEGIST SENIOR MANAGER Ang Markham MD [facility] CPT-31925 Level 3 Est. Patient 08:58:08 DIGITAL STRATEGIST SENIOR MANAGER Ang Markham MD [facility] CPT-00753 Level 3 Est. Patient 18:48:29 CDT Anthony Whitfield [facility] CPT-15289 Level 3 Est. Patient 12:16:59 CDT Gabriel Hunt DO [facility] CPT-62997 Level 3 Est. Patient 18:57:15 CDT Anthony Whtifield [facility] CPT-67366 Level 3 Est. Patient 13:59:22 DIGITAL STRATEGIST SENIOR MANAGER Ang Markham MD [facility] CPT-97857 Level 4 Est. Patient 10:36:08 DIGITAL STRATEGIST SENIOR MANAGER Ang Markham MD [facility] CPT-76779 Level 3 Est. Patient 16:27:02 CDT Eri Borges MD PhD [facility] CPT-76096 Level 3 Est. Patient 10:36:43 CDT Octaviano Juanyariel [facility] CPT-06779 Level 4 New Patient 08:58:06 CDT Ang Markham MD [facility] Procedures Code Procedure Name Date Entry Date Standard Description CPT-64547 Lipid - LAB USE ONLY 15:28:39 CDT CPT-90244 CMP - LAB USE ONLY 15:28:39 CDT CPT-68616 Venipuncture Draw Fee 15:28:39 CDT CPT-30903 Abd compl w upright - XRAY USE ONLY 14:09:39 CDT 02/28 CPT-90002 Venipuncture Draw Fee 12:25:15 CDT CPT-34627 Knee 3V 16:48:40 CDT CPT-OV Office Visit 16:27:13 CDT CPT-OV Office Visit 16:21:19 CDT CPT-40353 Sono pelvis non OB uterus ovaries cervix 09:37:28 CDT
--- OUTSIDE RECORDS SUMMARY | 2018-12-22 02:12 | XMS REPORT | Clinical Summary ---
Author Author Admin, QIE Organization [facility] Address Unknown Phone Unavailable Allergies, Adverse Reactions, [...] 5 MG TABS 1 po qd LISINOPRIL 01252624987 Active Ang Markham MD Active NOVOLOG FLEXPEN 100 UNIT/ML SOPN Take 20 units TID with meals INSULIN ASPART 56081692765 Wiley Markham MD Active LEVEMIR FLEXTOUCH 100 UNIT/ML SC SOPN 60 units SC nightly INSULIN DETEMIR 56848309343 Wiley Mrakham MD Active COLACE 100 MG CAP 1 po BID PRN Constipation DOCUSATE SODIUM 91444786592 Wiley Markham MD Active PAXIL 20 MG TAB 1 tablet by mouth daily PAROXETINE HCL 93728194033 Wiley Markham MD Active GENTAMICIN SULFATE 0.1 % EXT OINT Apply to open sores once a day. GENTAMICIN SULFATE 76790664851 No Longer Active Ang Markham MD Active ZOLPIDEM TARTRATE 10 MG TABS 1 po qHS PRN Insomnia ZOLPIDEM TARTRATE 48860292206 Active Ang Markham MD Active BACTRIM DS 800-160 MG TAB 1 tab by mouth twice daily TRIMETHOPRIM-SULFAMETHOXAZOLE 63840121794 No Longer Active Gloria Jefersonum ROLL CUTTER Active LEVEMIR FLEXPEN 100 UNIT/ML SOLN 40 units SC at bedtime INSULIN DETEMIR No Longer Active Susankalen Arellano RMA Active INSUPEN ULTRAFIN 31G X 6 MM MISC Use with insulin qid. DX: E11.9 INSULIN PEN NEEDLE 67553408585 Active Ang Markham MD Active ZOLOFT 100 MG TAB 1 po qHS SERTRALINE HCL 61317265978 No Longer Active Ang Markham MD Active MELOXICAM 15 MG TABS 1 po qd PRN Knee Pain MELOXICAM 47009225881 No Longer Active Ang Markham MD Active LIPITOR 40 MG TAB 1 po qHS ATORVASTATIN CALCIUM 31135786516 Active Ang Markham MD Active METFORMIN HCL 1000 MG TABS 1 tablet by mouth twice daily METFORMIN HCL 16812519247 Active Ang Markham MD Active CYCLOBENZAPRINE HCL 5 MG TABS 1 po qHS PRN Muscle pain CYCLOBENZAPRINE HCL 05032821463 Active Ang Markham MD Active COLACE 100 MG CAP 1 po BID PRN Constipation DOCUSATE SODIUM 83267198739 No Longer Active Ang Markham MD Active HYDROXYZINE HCL 25 MG TAB 1 TID PRN nerves HYDROXYZINE HCL 02793678785 Active Ang Markham MD Active IBUPROFEN 800 MG TABS 1 tab every 8 hours as needed for pain 2013 IBUPROFEN 18003598171 No Longer Active Ang Markham MD Active NITROFURANTOIN MACROCRYSTAL 100 MG CAPS 1 capsule PO bid x 7 days NITROFURANTOIN MACROCRYSTAL 80679470279 No Longer Active Ang Markham MD Active DIFLUCAN 150 MG TAB 1 qODay x 2 doses FLUCONAZOLE 90784249869 No Longer Active Da Romero APRN Active CEFTIN 500 MG TAB 1 tablet by mouth twice daily for 7 days 07/24 CEFUROXIME AXETIL 96840584436 No Longer Active Anthony CARBONE Active ZOLOFT 50 MG TAB 1 tablet by mouth daily SERTRALINE HCL 87199293745 No Longer Active Anthony CARBONE Active ANUSOL-HC 2.5 % CREAM apply as needed HYDROCORTISONE (RECTAL) 14907687520 No Longer Active Anthony CARBONE Active COLACE 100 MG CAP 1 tab PO BID DOCUSATE SODIUM 24159068955 No Longer Active Anthony CARBONE Active TRINESSA (28) 0.18/0.215/0.25 MG-35 MCG TABS 1 po qd as directed NORGESTIM-ETH ESTRAD TRIPHASIC 65915622825 No Longer Active Anthony CARBONE Active [facility] MELATONIN 5 MG TABS 1-2 po qHS PRN Insomnia MELATONIN 52405812124 No Longer Active Anthony CARBONE Active ACYCLOVIR 400 MG TABS ACYCLOVIR 48309227431 No Longer Active Ang Markham MD Active EMBRACE BLOOD GLUCOSE TEST STRP Test blood sugars 4 times daily and PRN 08/05 GLUCOSE BLOOD 13775293304 Active Ang Markham MD Active HYDROXYZINE HCL 25 MG TABS 1 tab PO tid PRN itching HYDROXYZINE HCL 54965849740 No Longer Active Ang Markham MD Active DIFLUCAN 150 MG TAB 1 qODay x 2 doses FLUCONAZOLE 06211185296 No Longer Active Da Romero APRN Active ACYCLOVIR 400 MG TABS 1 pill twice daily ACYCLOVIR 73577669680 No Longer Active Da Romero APRN Active AZITHROMYCIN 250 MG TABS 2 po qd x 1 day, then 1 po qd x 4 days AZITHROMYCIN 85683741607 No Longer Active Eri Borges MD PhD Active AZITHROMYCIN 250 MG TABS take 2 po day 1 then take1 po days 2-5 AZITHROMYCIN 94302075874 No Longer Active Octaviano CARBONE Active ACYCLOVIR 400 MG TABS 1 po qd ACYCLOVIR 30916707408 No Longer Active Ang Markham MD Active PROZAC 40 MG CAPS 1 cap by mouth at bedtime FLUOXETINE HCL 58146375252 No Longer Active Ang Markham MD Active HYDROXYZINE HCL 25 MG TABS 1 tab PO tid PRN itching HYDROXYZINE HCL 25 MG TABS 647602 HYDROXYZINE HCL Inactive [facility] MELATONIN 5 MG TABS 1-2 po qHS PRN Insomnia [facility] MELATONIN 5 MG TABS 304327 MELATONIN Inactive TRINESSA (28) 0.18/0.215/0.25 MG-35 MCG TABS 1 po qd as directed TRINESSA (28) 0.18/0.215/0.25 MG-35 MCG TABS 431985 NORGESTIM-ETH ESTRAD TRIPHASIC Inactive COLACE 100 MG CAP 1 tab PO BID COLACE 100 MG CAP 9385690 DOCUSATE SODIUM Inactive ANUSOL-HC 2.5 % CREAM apply as needed ANUSOL-HC 2.5 % CREAM 329828 HYDROCORTISONE (RECTAL) Inactive ZOLOFT 50 MG TAB 1 tablet by mouth daily ZOLOFT 50 MG TAB 451968 SERTRALINE HCL Inactive CEFTIN 500 MG TAB 1 tablet by mouth twice daily for 7 days 07/24 CEFTIN 500 MG TAB 839006 CEFUROXIME AXETIL Inactive NITROFURANTOIN MACROCRYSTAL 100 MG CAPS 1 capsule PO bid x 7 days NITROFURANTOIN MACROCRYSTAL 100 MG CAPS 6106220 NITROFURANTOIN MACROCRYSTAL Inactive IBUPROFEN 800 MG TABS 1 tab every 8 hours as needed for pain 2013 IBUPROFEN 800 MG TABS 029669 IBUPROFEN Inactive COLACE 100 MG CAP 1 po BID PRN Constipation COLACE 100 MG CAP 8879524 DOCUSATE SODIUM Inactive MELOXICAM 15 MG TABS 1 po qd PRN Knee Pain MELOXICAM 15 MG TABS 634407 MELOXICAM Inactive LEVEMIR FLEXPEN 100 UNIT/ML SOLN 40 units SC at bedtime LEVEMIR FLEXPEN 100 UNIT/ML SOLN INSULIN DETEMIR Inactive GENTAMICIN SULFATE 0.1 % EXT OINT Apply to open sores once a day. GENTAMICIN SULFATE 0.1 % EXT OINT 350158 GENTAMICIN SULFATE Inactive ACYCLOVIR 400 MG TABS 1 po qd ACYCLOVIR 400 MG TABS 19720928 ACYCLOVIR Inactive AZITHROMYCIN 250 MG TABS take 2 po day 1 then take1 po days 2-5 AZITHROMYCIN 250 MG TABS 0882283 AZITHROMYCIN Inactive AZITHROMYCIN 250 MG TABS 2 po qd x 1 day, then 1 po qd x 4 days AZITHROMYCIN 250 MG TABS 7965460 AZITHROMYCIN Inactive ACYCLOVIR 400 MG TABS 1 pill twice daily ACYCLOVIR 400 MG TABS 581869 ACYCLOVIR Inactive DIFLUCAN 150 MG TAB 1 qODay x 2 doses DIFLUCAN 150 MG TAB 758227 FLUCONAZOLE Inactive ACYCLOVIR 400 MG TABS ACYCLOVIR 400 MG TABS 515391 ACYCLOVIR Inactive DIFLUCAN 150 MG TAB 1 qODay x 2 doses DIFLUCAN 150 MG TAB 642678 FLUCONAZOLE Inactive BACTRIM DS 800-160 MG TAB 1 tab by mouth twice daily BACTRIM DS 800-160 MG TAB 489696 TRIMETHOPRIM-SULFAMETHOXAZOLE Inactive Advance Directives Directive Description Start [...] HGBA1C - Chemistry sodium, serum 134 mmol/L 847-848 9676/03/16 carbon dioxide, venous blood 34.5 mmol/L 21.0-32.0 potassium, serum 4.6 mmol/L 3.5-5.2 chloride, serum 93 mmol/L 98-107 blood glucose 408 mg/dL 65-110 urea nitrogen, blood 3 mg/dL 7-18 creatinine, serum 0.58 mg/dL 0.55-1.30 alanine aminotransferase (SGPT), serum 11 U/L 12-78 aspartate aminotransferase (SGOT), serum 8 U/L 15-37 calcium, serum 9.2 mg/dL 8.5-10.1 bilirubin, serum, total 0.30 mg/dL 0.00-1.00 cholesterol, serum 195 mg/dL 761-365 9201/03/16 triglyceride, serum, fasting 138 mg/dL 30-200 HDL [...] 0-19 Encounters Code Encounter Date Provider Facility CPT-56134 Level 4 Est. Patient 14:36:17 CDT Ang Markham MD [facility] CPT-36533 Level 3 Est. Patient 11:13:47 ANALYTICAL LEAD Ang Markham MD [facility] CPT-31296 Level 3 Est. Patient 11:59:20 ANALYTICAL LEAD Gloria Dunbar [facility] CPT-36651 Level 3 Est. Patient 17:32:37 ANALYTICAL LEAD Gloria Dunbar [facility] CPT-63307 Level 4 Est. Patient 16:39:07 CDT Ang Markham MD [facility] CPT-51044 Level 3 Est. Patient 16:35:50 CDT Ang Markham MD [facility] CPT-82511 Level 4 Est. Patient 13:53:06 ANALYTICAL LEAD Ang Markham MD [facility] CPT-55366 Level 3 Est. Patient 08:58:08 ANALYTICAL LEAD Ang Markham MD [facility] CPT-60688 Level 3 Est. Patient 18:48:29 CDT Anthony Whitfield [facility] CPT-15984 Level 3 Est. Patient 12:16:59 CDT Gabriel Hunt DO [facility] CPT-70978 Level 3 Est. Patient 18:57:15 CDT Anthony Whitfield [facility] CPT-01539 Level 3 Est. Patient 13:59:22 ANALYTICAL LEAD Ang Markham MD [facility] CPT-60455 Level 4 Est. Patient 10:36:08 ANALYTICAL LEAD Ang Markham MD [facility] CPT-50013 Level 3 Est. Patient 16:27:02 CDT Eri Borges MD [facility] CPT-18290 Level 3 Est. Patient 10:36:43 CDT Octaviano Wilkersonjj [facility] CPT-84794 Level 4 New Patient 08:58:06 CDT Ang Markham MD [facility] Procedures Code Procedure Name Date Entry Date Standard Description CPT-14547 Venipuncture Draw Fee 12:25:15 CDT CPT-54187 Knee 3V 16:48:40 CDT CPT-OV Office Visit 16:27:13 CDT CPT-OV Office Visit 16:21:19 CDT CPT-49101 Sono pelvis non OB uterus ovaries cervix 09:37:28 CDT
--- OUTSIDE RECORDS SUMMARY | 2018-12-22 02:13 | XMS REPORT | Clinical Summary ---
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 Ratio vs. Carbs INSULIN ASPART 51756306852 Active Gabriel Hunt DO Active BD PEN NEEDLE DINESH U/F 32G X 4 MM MISC 5 a day INSULIN PEN NEEDLE 31717795962 Active Maliheh Ziglari PIG MACHINE CRANE OPERATOR Active LEVEMIR FLEXTOUCH 100 UNIT/ML SC SOPN 30 units SC at 12-1pm, 30 units 12-1am INSULIN DETEMIR 77772987592 Active Maliheh Ziglari PIG MACHINE CRANE OPERATOR Active EMBRACE BLOOD GLUCOSE TEST STRP Test blood sugars 4 times daily and PRN 08/05 GLUCOSE BLOOD 54447322344 No Longer Active Maliheh Ziglari PIG MACHINE CRANE OPERATOR Active TRUEPLUS LANCETS 30G MISC 4 a day LANCETS 31472723512 Active Maliheh Ziglari PIG MACHINE CRANE OPERATOR Active TRUETEST TEST STRP check blood sugars 4x/day GLUCOSE BLOOD 43481372834 Active Maliheh Ziglari PIG MACHINE CRANE OPERATOR Active TRUERESULT BLOOD GLUCOSE W/DEVICE KIT check blood sugars 4x a day BLOOD GLUCOSE MONITORING SUPPL 04974114301 Active Maliheh Ziglari PIG MACHINE CRANE OPERATOR Active LISINOPRIL 5 MG TABS 1 po qd LISINOPRIL 58654246909 Active Ang Markham MD Active PAXIL 20 MG TAB 1 tablet by mouth daily PAROXETINE HCL 99727859005 Active Ang Markham MD Active GENTAMICIN SULFATE 0.1 % EXT OINT Apply to open sores once a day. GENTAMICIN SULFATE 92489112325 No Longer Active Ang Markham MD Active ZOLPIDEM TARTRATE 10 MG TABS 1 po qHS PRN Insomnia ZOLPIDEM TARTRATE 94139693015 Active Ang Markham MD Active BACTRIM DS 800-160 MG TAB 1 tab by mouth twice daily TRIMETHOPRIM-SULFAMETHOXAZOLE 11376654843 No Longer Active Gloria Dunbar SEMICONDUCTOR ENGINEER Active LEVEMIR FLEXPEN 100 UNIT/ML SOLN 40 units SC at bedtime INSULIN DETEMIR No Longer Active Susan Arellano RMA Active INSUPEN ULTRAFIN 31G X 6 MM MISC Use with insulin qid. DX: E11.9 INSULIN PEN NEEDLE 62245480896 Active Ang Markham MD Active ZOLOFT 100 MG TAB 1 po qHS SERTRALINE HCL 17478807373 No Longer Active Ang Markham MD Active MELOXICAM 15 MG TABS 1 po qd PRN Knee Pain MELOXICAM 51560716596 No Longer Active Ang Markham MD Active LIPITOR 40 MG TAB 1 po qHS ATORVASTATIN CALCIUM 52728516971 Active Ang Markham MD Active METFORMIN HCL 1000 MG TABS 1 tablet by mouth twice daily METFORMIN HCL 34886695624 Active Ang Markham MD Active CYCLOBENZAPRINE HCL 5 MG TABS 1 po qHS PRN Muscle pain CYCLOBENZAPRINE HCL 15299346747 Active Ang Markham MD Active COLACE 100 MG CAP 1 po BID PRN Constipation DOCUSATE SODIUM 78028500582 No Longer Active Ang Markham MD Active HYDROXYZINE HCL 25 MG TAB 1 TID PRN nerves HYDROXYZINE HCL 35842872471 Active Ang Markham MD Active IBUPROFEN 800 MG TABS 1 tab every 8 hours as needed for pain 2013 IBUPROFEN 84560846897 No Longer Active Ang Markham MD Active NITROFURANTOIN MACROCRYSTAL 100 MG CAPS 1 capsule PO bid x 7 days NITROFURANTOIN MACROCRYSTAL 63840713432 No Longer Active Ang Markham MD Active DIFLUCAN 150 MG TAB 1 qODay x 2 doses FLUCONAZOLE 69813919161 No Longer Active Da Romero SEMICONDUCTOR ENGINEER Active CEFTIN 500 MG TAB 1 tablet by mouth twice daily for 7 days 07/24 CEFUROXIME AXETIL 14296947998 No Longer Active Anthony CARBONE Active ZOLOFT 50 MG TAB 1 tablet by mouth daily SERTRALINE HCL 72584003552 No Longer Active Anthony CARBONE Active ANUSOL-HC 2.5 % CREAM apply as needed HYDROCORTISONE (RECTAL) 70286338748 No Longer Active Anthony CARBONE Active COLACE 100 MG CAP 1 tab PO BID DOCUSATE SODIUM 12450613565 No Longer Active Anthony CARBONE Active TRINESSA (28) 0.18/0.215/0.25 MG-35 MCG TABS 1 po qd as directed NORGESTIM-ETH ESTRAD TRIPHASIC 50517798346 No Longer Active Anthony CARBONE Active [facility] MELATONIN 5 MG TABS 1-2 po qHS PRN Insomnia MELATONIN 47053443342 No Longer Active Anthony CARBONE Active ACYCLOVIR 400 MG TABS ACYCLOVIR 90588587209 No Longer Active Ang Markham MD Active HYDROXYZINE HCL 25 MG TABS 1 tab PO tid PRN itching HYDROXYZINE HCL 37246869529 No Longer Active Ang Markham MD Active DIFLUCAN 150 MG TAB 1 qODay x 2 doses FLUCONAZOLE 15781400086 No Longer Active Da Romero APRN Active ACYCLOVIR 400 MG TABS 1 pill twice daily ACYCLOVIR 29489004456 No Longer Active Da Romero APRN Active AZITHROMYCIN 250 MG TABS 2 po qd x 1 day, then 1 po qd x 4 days AZITHROMYCIN 58144106523 No Longer Active Eri Borges MD PhD Active AZITHROMYCIN 250 MG TABS take 2 po day 1 then take1 po days 2-5 AZITHROMYCIN 86207341670 No Longer Active Octaviano CARBONE Active ACYCLOVIR 400 MG TABS 1 po qd ACYCLOVIR 73103360178 No Longer Active Ang Markham MD Active PROZAC 40 MG CAPS 1 cap by mouth at bedtime FLUOXETINE HCL 00616645744 No Longer Active Ang Markham MD Active HYDROXYZINE HCL 25 MG TABS 1 tab PO tid PRN itching HYDROXYZINE HCL 25 MG TABS 990968 HYDROXYZINE HCL Inactive [facility] MELATONIN 5 MG TABS 1-2 po qHS PRN Insomnia [facility] MELATONIN 5 MG TABS 473198 MELATONIN Inactive TRINESSA (28) 0.18/0.215/0.25 MG-35 MCG TABS 1 po qd as directed TRINESSA (28) 0.18/0.215/0.25 MG-35 MCG TABS 527031 NORGESTIM-ETH ESTRAD TRIPHASIC Inactive COLACE 100 MG CAP 1 tab PO BID COLACE 100 MG CAP 8994121 DOCUSATE SODIUM Inactive ANUSOL-HC 2.5 % CREAM apply as needed ANUSOL-HC 2.5 % CREAM 505555 HYDROCORTISONE (RECTAL) Inactive ZOLOFT 50 MG TAB 1 tablet by mouth daily ZOLOFT 50 MG TAB 743587 SERTRALINE HCL Inactive CEFTIN 500 MG TAB 1 tablet by mouth twice daily for 7 days 07/24 CEFTIN 500 MG TAB 317543 CEFUROXIME AXETIL Inactive NITROFURANTOIN MACROCRYSTAL 100 MG CAPS 1 capsule PO bid x 7 days NITROFURANTOIN MACROCRYSTAL 100 MG CAPS 9867543 NITROFURANTOIN MACROCRYSTAL Inactive IBUPROFEN 800 MG TABS 1 tab every 8 hours as needed for pain 2013 IBUPROFEN 800 MG TABS 132248 IBUPROFEN Inactive COLACE 100 MG CAP 1 po BID PRN Constipation COLACE 100 MG CAP 5782870 DOCUSATE SODIUM Inactive MELOXICAM 15 MG TABS 1 po qd PRN Knee Pain MELOXICAM 15 MG TABS 259536 MELOXICAM Inactive LEVEMIR FLEXPEN 100 UNIT/ML SOLN 40 units SC at bedtime LEVEMIR FLEXPEN 100 UNIT/ML SOLN INSULIN DETEMIR Inactive GENTAMICIN SULFATE 0.1 % EXT OINT Apply to open sores once a day. GENTAMICIN SULFATE 0.1 % EXT OINT 091493 GENTAMICIN SULFATE Inactive EMBRACE BLOOD GLUCOSE TEST STRP Test blood sugars 4 times daily and PRN 08/05 EMBRACE BLOOD GLUCOSE TEST STRP GLUCOSE BLOOD Inactive ACYCLOVIR 400 MG TABS 1 po qd ACYCLOVIR 400 MG TABS 19720928 ACYCLOVIR Inactive AZITHROMYCIN 250 MG TABS take 2 po day 1 then take1 po days 2-5 AZITHROMYCIN 250 MG TABS 6935102 AZITHROMYCIN Inactive AZITHROMYCIN 250 MG TABS 2 po qd x 1 day, then 1 po qd x 4 days AZITHROMYCIN 250 MG TABS 0127175 AZITHROMYCIN Inactive ACYCLOVIR 400 MG TABS 1 pill twice daily ACYCLOVIR 400 MG TABS 19720928 ACYCLOVIR Inactive DIFLUCAN 150 MG TAB 1 qODay x 2 doses DIFLUCAN 150 MG TAB 217809 FLUCONAZOLE Inactive ACYCLOVIR 400 MG TABS ACYCLOVIR 400 MG TABS 19720928 ACYCLOVIR Inactive DIFLUCAN 150 MG TAB 1 qODay x 2 doses DIFLUCAN 150 MG TAB 403998 FLUCONAZOLE Inactive BACTRIM DS 800-160 MG TAB 1 tab by mouth twice daily BACTRIM DS 800-160 MG TAB 370697 TRIMETHOPRIM-SULFAMETHOXAZOLE Inactive Advance Directives Directive Description Start [...] HGBA1C - Chemistry sodium, serum 134 mmol/L 333-716 1173/03/16 carbon dioxide, venous blood 34.5 mmol/L 21.0-32.0 potassium, serum 4.6 mmol/L 3.5-5.2 chloride, serum 93 mmol/L 98-107 blood glucose 408 mg/dL 65-110 urea nitrogen, blood 3 mg/dL 7-18 creatinine, serum 0.58 mg/dL 0.55-1.30 alanine aminotransferase (SGPT), serum 11 U/L 12-78 aspartate aminotransferase (SGOT), serum 8 U/L 15-37 calcium, serum 9.2 mg/dL 8.5-10.1 bilirubin, serum, total 0.30 mg/dL 0.00-1.00 cholesterol, serum 195 mg/dL 906-112 8437/03/16 triglyceride, serum, fasting 138 mg/dL 30-200 HDL [...] dipstick Negative Negative sodium, serum 133 mmol/L 827-865 2454/06/03 carbon dioxide, venous blood 33.4 mmol/L 21.0-32.0 [...] pH, urine, semiquantitative 5.5 5.0-8.5 Lab Report: [facility] [place] - Chemistry human chorionic gonadotropin, urine, qualitative (urine test) Negative Negative Office Visit: Diabetes Visit - Chemistry cholesterol, target level 200 mg/dL triglyceride, target level 200 mg/dL HDL cholesterol, serum, target level 35 mg/dL LDL target level 100 mg/dL home glucose monitor utilized Yes Encounters Code Encounter Date Provider Facility CPT-88285 Level 3 Est. Patient 13:51:24 CDT Ang Markham MD [facility] CPT-60369 Level 3 Est. Patient 18:42:15 CDT Gabriel Hunt DO [facility] CPT-98069 Level 5 Est. Patient 14:40:14 CDT Celestine PEARCE [facility] CPT-99598 Level 4 Est. Patient 14:36:17 CDT Ang Markham MD [facility] CPT-46134 Level 3 Est. Patient 11:13:47 BROADCAST MAINTENANCE TECHNICIAN Ang Markham MD [facility] CPT-91397 Level 3 Est. Patient 11:59:20 BROADCAST MAINTENANCE TECHNICIAN Gloria Dunbar [facility] CPT-56598 Level 3 Est. Patient 17:32:37 BROADCAST MAINTENANCE TECHNICIAN Gloria Dunbar [facility] CPT-80062 Level 4 Est. Patient 16:39:07 CDT Ang Markham MD [facility] CPT-35793 Level 3 Est. Patient 16:35:50 CDT Ang Markham MD [facility] CPT-40146 Level 4 Est. Patient 13:53:06 BROADCAST MAINTENANCE TECHNICIAN Ang Markham MD [facility] CPT-27513 Level 3 Est. Patient 08:58:08 BROADCAST MAINTENANCE TECHNICIAN Ang Markham MD [facility] CPT-21863 Level 3 Est. Patient 18:48:29 CDT Anthony Whitfield [facility] CPT-22312 Level 3 Est. Patient 12:16:59 CDT Gabriel Hunt DO [facility] CPT-18416 Level 3 Est. Patient 18:57:15 CDT Anthony Whitfield [facility] CPT-44192 Level 3 Est. Patient 13:59:22 BROADCAST MAINTENANCE TECHNICIAN Ang Markham MD [facility] CPT-47789 Level 4 Est. Patient 10:36:08 BROADCAST MAINTENANCE TECHNICIAN Ang Markham MD [facility] CPT-69962 Level 3 Est. Patient 16:27:02 CDT Eri Borges MD PhD [facility] CPT-95481 Level 3 Est. Patient 10:36:43 CDT Octaviano Dempsey [facility] CPT-78296 Level 4 New Patient 08:58:06 CDT Ang Markham MD [facility] Procedures Code Procedure Name Date Entry Date Standard Description CPT-23440 Abd compl w upright - XRAY USE ONLY 14:09:39 CDT 02/28 CPT-59774 Venipuncture Draw Fee 12:25:15 CDT CPT-95516 Knee 3V 16:48:40 CDT CPT-OV Office Visit 16:27:13 CDT CPT-OV Office Visit 16:21:19 CDT CPT-07693 Sono pelvis non OB uterus ovaries cervix 09:37:28 CDT
--- OUTSIDE RECORDS SUMMARY | 2018-12-22 02:13 | XMS REPORT | Clinical Summary ---
Author Author Admin, QIE Organization [facility] Address Unknown Phone Unavailable Allergies, Adverse Reactions, [...] MD DEPRESSION ICD-311 Inactive Ang Markham MD Diabetes [...] 5 MG TABS 1 po qd LISINOPRIL 81722187946 Active Ang Markham MD Active NOVOLOG FLEXPEN 100 UNIT/ML SOPN Take 20 units TID with meals INSULIN ASPART 18074450287 Wiley Markham MD Active LEVEMIR FLEXTOUCH 100 UNIT/ML SC SOPN 60 units SC nightly INSULIN DETEMIR 06029715764 Wiley Markham MD Active COLACE 100 MG CAP 1 po BID PRN Constipation DOCUSATE SODIUM 08278277680 Wiley Markham MD Active PAXIL 20 MG TAB 1 tablet by mouth daily PAROXETINE HCL 83214914841 Wiley Markham MD Active GENTAMICIN SULFATE 0.1 % EXT OINT Apply to open sores once a day. GENTAMICIN SULFATE 77986068402 No Longer Active Ang Markham MD Active ZOLPIDEM TARTRATE 10 MG TABS 1 po qHS PRN Insomnia ZOLPIDEM TARTRATE 51426506385 Active Ang Markham MD Active BACTRIM DS 800-160 MG TAB 1 tab by mouth twice daily TRIMETHOPRIM-SULFAMETHOXAZOLE 75507947995 No Longer Active Gloria Jefersonum SEAMLESS TUBE ROLLER Active LEVEMIR FLEXPEN 100 UNIT/ML SOLN 40 units SC at bedtime INSULIN DETEMIR No Longer Active Susankalen Arellano RMA Active INSUPEN ULTRAFIN 31G X 6 MM MISC Use with insulin qid. DX: E11.9 INSULIN PEN NEEDLE 80723757260 Active Ang Markham MD Active ZOLOFT 100 MG TAB 1 po qHS SERTRALINE HCL 44913615076 No Longer Active Ang Markham MD Active MELOXICAM 15 MG TABS 1 po qd PRN Knee Pain MELOXICAM 11146966934 No Longer Active Ang Markham MD Active LIPITOR 40 MG TAB 1 po qHS ATORVASTATIN CALCIUM 58361991594 Active Ang Markham MD Active METFORMIN HCL 1000 MG TABS 1 tablet by mouth twice daily METFORMIN HCL 31319994870 Active Ang Markham MD Active CYCLOBENZAPRINE HCL 5 MG TABS 1 po qHS PRN Muscle pain CYCLOBENZAPRINE HCL 94226446034 Active Ang Markham MD Active COLACE 100 MG CAP 1 po BID PRN Constipation DOCUSATE SODIUM 94127956085 No Longer Active Ang Markham MD Active HYDROXYZINE HCL 25 MG TAB 1 TID PRN nerves HYDROXYZINE HCL 54449751933 Active Ang Markham MD Active IBUPROFEN 800 MG TABS 1 tab every 8 hours as needed for pain 2013 IBUPROFEN 66315948362 No Longer Active Ang Markham MD Active NITROFURANTOIN MACROCRYSTAL 100 MG CAPS 1 capsule PO bid x 7 days NITROFURANTOIN MACROCRYSTAL 75844418098 No Longer Active Ang Markham MD Active DIFLUCAN 150 MG TAB 1 qODay x 2 doses FLUCONAZOLE 58615031469 No Longer Active Da Romero APRN Active CEFTIN 500 MG TAB 1 tablet by mouth twice daily for 7 days 07/24 CEFUROXIME AXETIL 77225362762 No Longer Active Anthony CARBONE Active ZOLOFT 50 MG TAB 1 tablet by mouth daily SERTRALINE HCL 53922441557 No Longer Active Anthony CARBONE Active ANUSOL-HC 2.5 % CREAM apply as needed HYDROCORTISONE (RECTAL) 25464449912 No Longer Active Anthony CARBONE Active COLACE 100 MG CAP 1 tab PO BID DOCUSATE SODIUM 63012565695 No Longer Active Anthony CARBONE Active TRINESSA (28) 0.18/0.215/0.25 MG-35 MCG TABS 1 po qd as directed NORGESTIM-ETH ESTRAD TRIPHASIC 50797750260 No Longer Active Anthony CARBONE Active [facility] MELATONIN 5 MG TABS 1-2 po qHS PRN Insomnia MELATONIN 59710143459 No Longer Active Anthony CARBONE Active ACYCLOVIR 400 MG TABS ACYCLOVIR 91921615855 No Longer Active Ang Markham MD Active EMBRACE BLOOD GLUCOSE TEST STRP Test blood sugars 4 times daily and PRN 08/05 GLUCOSE BLOOD 83198757437 Active Ang Markham MD Active HYDROXYZINE HCL 25 MG TABS 1 tab PO tid PRN itching HYDROXYZINE HCL 15266486764 No Longer Active Ang Markham MD Active DIFLUCAN 150 MG TAB 1 qODay x 2 doses FLUCONAZOLE 83940226470 No Longer Active Da Romero APRN Active ACYCLOVIR 400 MG TABS 1 pill twice daily ACYCLOVIR 28896457794 No Longer Active Da Romero APRN Active AZITHROMYCIN 250 MG TABS 2 po qd x 1 day, then 1 po qd x 4 days AZITHROMYCIN 07633445725 No Longer Active Eri oBrges MD PhD Active AZITHROMYCIN 250 MG TABS take 2 po day 1 then take1 po days 2-5 AZITHROMYCIN 52291776846 No Longer Active Octaviano CARBONE Active ACYCLOVIR 400 MG TABS 1 po qd ACYCLOVIR 11546246070 No Longer Active Ang Markham MD Active PROZAC 40 MG CAPS 1 cap by mouth at bedtime FLUOXETINE HCL 94328889856 No Longer Active Ang Markham MD Active HYDROXYZINE HCL 25 MG TABS 1 tab PO tid PRN itching HYDROXYZINE HCL 25 MG TABS 447281 HYDROXYZINE HCL Inactive [facility] MELATONIN 5 MG TABS 1-2 po qHS PRN Insomnia [facility] MELATONIN 5 MG TABS 666456 MELATONIN Inactive TRINESSA (28) 0.18/0.215/0.25 MG-35 MCG TABS 1 po qd as directed TRINESSA (28) 0.18/0.215/0.25 MG-35 MCG TABS 018836 NORGESTIM-ETH ESTRAD TRIPHASIC Inactive COLACE 100 MG CAP 1 tab PO BID COLACE 100 MG CAP 3789467 DOCUSATE SODIUM Inactive ANUSOL-HC 2.5 % CREAM apply as needed ANUSOL-HC 2.5 % CREAM 389556 HYDROCORTISONE (RECTAL) Inactive ZOLOFT 50 MG TAB 1 tablet by mouth daily ZOLOFT 50 MG TAB 159819 SERTRALINE HCL Inactive CEFTIN 500 MG TAB 1 tablet by mouth twice daily for 7 days 07/24 CEFTIN 500 MG TAB 660791 CEFUROXIME AXETIL Inactive NITROFURANTOIN MACROCRYSTAL 100 MG CAPS 1 capsule PO bid x 7 days NITROFURANTOIN MACROCRYSTAL 100 MG CAPS 3500104 NITROFURANTOIN MACROCRYSTAL Inactive IBUPROFEN 800 MG TABS 1 tab every 8 hours as needed for pain 2013 IBUPROFEN 800 MG TABS 628151 IBUPROFEN Inactive COLACE 100 MG CAP 1 po BID PRN Constipation COLACE 100 MG CAP 7173902 DOCUSATE SODIUM Inactive MELOXICAM 15 MG TABS 1 po qd PRN Knee Pain MELOXICAM 15 MG TABS 960623 MELOXICAM Inactive LEVEMIR FLEXPEN 100 UNIT/ML SOLN 40 units SC at bedtime LEVEMIR FLEXPEN 100 UNIT/ML SOLN INSULIN DETEMIR Inactive GENTAMICIN SULFATE 0.1 % EXT OINT Apply to open sores once a day. GENTAMICIN SULFATE 0.1 % EXT OINT 357733 GENTAMICIN SULFATE Inactive ACYCLOVIR 400 MG TABS 1 po qd ACYCLOVIR 400 MG TABS 19720928 ACYCLOVIR Inactive AZITHROMYCIN 250 MG TABS take 2 po day 1 then take1 po days 2-5 AZITHROMYCIN 250 MG TABS 1601562 AZITHROMYCIN Inactive AZITHROMYCIN 250 MG TABS 2 po qd x 1 day, then 1 po qd x 4 days AZITHROMYCIN 250 MG TABS 2801418 AZITHROMYCIN Inactive ACYCLOVIR 400 MG TABS 1 pill twice daily ACYCLOVIR 400 MG TABS 377973 ACYCLOVIR Inactive DIFLUCAN 150 MG TAB 1 qODay x 2 doses DIFLUCAN 150 MG TAB 029760 FLUCONAZOLE Inactive ACYCLOVIR 400 MG TABS ACYCLOVIR 400 MG TABS 721745 ACYCLOVIR Inactive DIFLUCAN 150 MG TAB 1 qODay x 2 doses DIFLUCAN 150 MG TAB 596414 FLUCONAZOLE Inactive BACTRIM DS 800-160 MG TAB 1 tab by mouth twice daily BACTRIM DS 800-160 MG TAB 217535 TRIMETHOPRIM-SULFAMETHOXAZOLE Inactive Advance Directives Directive Description Start [...] HGBA1C - Chemistry sodium, serum 134 mmol/L 978-753 2751/03/16 carbon dioxide, venous blood 34.5 mmol/L 21.0-32.0 potassium, serum 4.6 mmol/L 3.5-5.2 chloride, serum 93 mmol/L 98-107 blood glucose 408 mg/dL 65-110 urea nitrogen, blood 3 mg/dL 7-18 creatinine, serum 0.58 mg/dL 0.55-1.30 alanine aminotransferase (SGPT), serum 11 U/L 12-78 aspartate aminotransferase (SGOT), serum 8 U/L 15-37 calcium, serum 9.2 mg/dL 8.5-10.1 bilirubin, serum, total 0.30 mg/dL 0.00-1.00 cholesterol, serum 195 mg/dL 309-105 4598/03/16 triglyceride, serum, fasting 138 mg/dL 30-200 HDL [...] 0-19 Encounters Code Encounter Date Provider Facility CPT-59281 Level 4 Est. Patient 14:36:17 CDT Ang Markham MD [facility] CPT-13344 Level 3 Est. Patient 11:13:47 CYLINDER PRESS OPERATOR HELPER Ang Markham MD [facility] CPT-21189 Level 3 Est. Patient 11:59:20 CYLINDER PRESS OPERATOR HELPER Gloria Dunbar [facility] CPT-75644 Level 3 Est. Patient 17:32:37 CYLINDER PRESS OPERATOR HELPER Gloria Dunbar [facility] CPT-07660 Level 4 Est. Patient 16:39:07 CDT Ang Markham MD [facility] CPT-55707 Level 3 Est. Patient 16:35:50 CDT Ang Markham MD [facility] CPT-93426 Level 4 Est. Patient 13:53:06 CYLINDER PRESS OPERATOR HELPER Ang Markham MD [facility] CPT-83388 Level 3 Est. Patient 08:58:08 CYLINDER PRESS OPERATOR HELPER Ang Markham MD [facility] CPT-16322 Level 3 Est. Patient 18:48:29 CDT Anthony Whitfield [facility] CPT-74389 Level 3 Est. Patient 12:16:59 CDT Gabriel Hunt DO [facility] CPT-70364 Level 3 Est. Patient 18:57:15 CDT Anthony Whitfield [facility] CPT-12669 Level 3 Est. Patient 13:59:22 CYLINDER PRESS OPERATOR HELPER Ang Markham MD [facility] CPT-30529 Level 4 Est. Patient 10:36:08 CYLINDER PRESS OPERATOR HELPER Ang Markham MD [facility] CPT-78940 Level 3 Est. Patient 16:27:02 CDT Eri Borges MD [facility] CPT-64560 Level 3 Est. Patient 10:36:43 CDT Octaviano Wilkersonjj [facility] CPT-82386 Level 4 New Patient 08:58:06 CDT Ang Markham MD [facility] Procedures Code Procedure Name Date Entry Date Standard Description CPT-36925 Venipuncture Draw Fee 12:25:15 CDT CPT-90335 Knee 3V 16:48:40 CDT CPT-OV Office Visit 16:27:13 CDT CPT-OV Office Visit 16:21:19 CDT CPT-70683 Sono pelvis non OB uterus ovaries cervix 09:37:28 CDT
--- OUTSIDE RECORDS SUMMARY | 2018-12-22 02:14 | XMS REPORT | Clinical Summary ---
Author Author Admin, E Organization [facility] Address Unknown Phone Unavailable Allergies, Adverse [...] Resolved Ang Markham MD [facility] use 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 V58.67 Active Celestine PEARCE Long-term (current) use of insulin Low back pain, acute 724.2 Active Shreya Velazquez THERAPEUTIC PROGRAM WORKER Lumbago Pharyngitis, acute / sore throat 462 Active Shreya Velazquez APRN Acute pharyngitis Cellulitis 682.9 Active Conner Hills MD Cellulitis and abscess of unspecified sites Diarrhea, chronic 787.91 Active Da Romero THERAPEUTIC PROGRAM WORKER Diarrhea Diabetes mellitus ICD-250.00 Inactive Ang Markham [...] acute ICD-595.0 Nathan Markham MD UTI ICD-599.0 Natahn Markham MD Insomnia ICD-780.52 Nathan Markham MD Diabetes mellitus ICD-250.00 Nathan Markham MD Vaginal discharge ICD-623.5 Nathan Markham MD Amenorrhea ICD-626.0 Nathan Markham MD DEPRESSION ICD-311 Nathan Markham MD Diabetes mellitus, type I, with hypoglycemia ICD-250.81 Nathan Markham MD jail use 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 ICD-V58.67 Nathan Markham MD Cellulitis, ankle, left ICD-682.6 Nathan Markham MD Nausea ICD-787.02 Nathan Markham MD 06/26 Otitis externa, acute, left ICD-380.12 Nathan Markham MD Abdominal pain ICD-789.00 Inactive Ang Markham MD Hematochezia ICD-578.1 Inactive Ang Markham MD Medication List Medication Instructions Start Date Stop Date Generic Name NDC Status Provider Patient Instruction COLACE 100 MG CAP 1 po daily DOCUSATE SODIUM 59496696963 No Longer Active Jillina Frazell THERAPEUTIC PROGRAM WORKER Active CARAFATE 1 GM/10ML ORAL SUSP 5 mg four times daily SUCRALFATE 45929591867 Active Jillina Frazell THERAPEUTIC PROGRAM WORKER Active ZANTAC 150 MG TAB 1 po BID RANITIDINE HCL 48923635317 No Longer Active Jillina Frazell THERAPEUTIC PROGRAM WORKER Active HYDROXYZINE HCL 25 MG TAB 1 TID PRN nerves HYDROXYZINE HCL 62040936114 No Longer Active Jillina Frazell THERAPEUTIC PROGRAM WORKER Active CLINDAMYCIN HCL 300 MG ORAL CAPS 1 four times a day CLINDAMYCIN HCL 48280777537 No Longer Active Jillina Frazell THERAPEUTIC PROGRAM WORKER Active TYLENOL WITH CODEINE #3 300-30 MG TABS 1 every four hours as needed for pain ACETAMINOPHEN-CODEINE 96488155350 Active Conner Hills MD Active LEVAQUIN 500 MG TABS 1 daily for infection LEVOFLOXACIN 22763468183 No Longer Active Conner Hills MD Active DOXEPIN HCL 10 MG CAP 1 tablet nightly for the itch DOXEPIN HCL 31111356069 No Longer Active Conner Hills MD Active TRESIBA FLEXTOUCH 200 UNIT/ML SC SOPN Take 70 units daily at mid-night to 1 am. INSULIN DEGLUDEC 08221040287 No Longer Active Conner Hills MD Active METFORMIN HCL 1000 MG TABS 1 tablet by mouth twice daily METFORMIN HCL 51768749327 No Longer Active Conner Hills MD Active LIPITOR 40 MG TAB 1 po qHS ATORVASTATIN CALCIUM 71818929482 No Longer Active Conner Hills MD Active GEMFIBROZIL 600 MG TABS 1 po BID GEMFIBROZIL 93153134752 No Longer Active Conner Hills MD Active CORTISPORIN 3.5-31062-8 SOLN 4gtts in affected ear QID x 7 days [id number] 19275311210 No Longer Active Ang Markham MD Active LEVEMIR FLEXTOUCH 100 UNIT/ML SC SOPN 35 units SC at 12-1pm, 35 units 12-1am INSULIN DETEMIR 54668680699 No Longer Active Celestine PEARCE Active REGLAN 10 MG TAB 0.5 po TID 30min prior to meals METOCLOPRAMIDE HCL 61176610418 Active Ang Markham MD Active NOVOLOG FLEXPEN 100 UNIT/ML SOPN Take 20 units TID with meals, plus 2u/50 for blood sugars above 150. Ratio vs. Carbs INSULIN ASPART 25709870105 Active Gabriel Hunt DO Active BD PEN NEEDLE DINESH U/F 32G X 4 MM MISC 5 a day INSULIN PEN NEEDLE 78013135053 Active Malstepheneh Ziglari NURSING PROGRAM DIRECTOR Active EMBRACE BLOOD GLUCOSE TEST STRP Test blood sugars 4 times daily and PRN 08/05 GLUCOSE BLOOD 69985090141 No Longer Active Malstepheneh Rigoglari NURSING PROGRAM DIRECTOR Active TRUEPLUS LANCETS 30G MISC 4 a day LANCETS 27444577120 Active Maliheh Ziglari NURSING PROGRAM DIRECTOR Active TRUETEST TEST STRP check blood sugars 4x/day GLUCOSE BLOOD 09048114757 Active Maliheh Ziglari NURSING PROGRAM DIRECTOR Active TRUERESULT BLOOD GLUCOSE W/DEVICE KIT check blood sugars 4x a day BLOOD GLUCOSE MONITORING SUPPL 04240951839 Active Malstepheneh Ziglari NURSING PROGRAM DIRECTOR Active LISINOPRIL 5 MG TABS 1 po qd LISINOPRIL 02183425753 Active Ang Markham MD Active PAXIL 20 MG TAB 1 tablet by mouth daily PAROXETINE HCL 09970126402 Active Ang Markham MD Active GENTAMICIN SULFATE 0.1 % EXT OINT Apply to open sores once a day. GENTAMICIN SULFATE 32375250047 No Longer Active Ang Markham MD Active ZOLPIDEM TARTRATE 10 MG TABS 1 po qHS PRN Insomnia ZOLPIDEM TARTRATE 16233032388 Active Ang Markham MD Active BACTRIM DS 800-160 MG TAB 1 tab by mouth twice daily TRIMETHOPRIM-SULFAMETHOXAZOLE 52507922659 No Longer Active Gloria Yokum THERAPEUTIC PROGRAM WORKER Active LEVEMIR FLEXPEN 100 UNIT/ML SOLN 40 units SC at bedtime INSULIN DETEMIR No Longer Active Susan Adan RMA Active INSUPEN ULTRAFIN 31G X 6 MM MISC Use with insulin qid. DX: E11.9 INSULIN PEN NEEDLE 28207656342 Active Ang Markham MD Active ZOLOFT 100 MG TAB 1 po qHS SERTRALINE HCL 50941117842 No Longer Active Ang Markham MD Active MELOXICAM 15 MG TABS 1 po qd PRN Knee Pain MELOXICAM 05879413010 No Longer Active Ang Markham MD Active CYCLOBENZAPRINE HCL 5 MG TABS 1 po qHS PRN Muscle pain CYCLOBENZAPRINE HCL 79876127914 Active Agn Markham MD Active COLACE 100 MG CAP 1 po BID PRN Constipation DOCUSATE SODIUM 60088169250 No Longer Active Ang Markham MD Active IBUPROFEN 800 MG TABS 1 tab every 8 hours as needed for pain 2013 IBUPROFEN 83005476715 No Longer Active Ang Markham MD Active NITROFURANTOIN MACROCRYSTAL 100 MG CAPS 1 capsule PO bid x 7 days NITROFURANTOIN MACROCRYSTAL 61649028660 No Longer Active Ang Markham MD Active DIFLUCAN 150 MG TAB 1 qODay x 2 doses FLUCONAZOLE 00751098754 No Longer Active Da Romero APRN Active CEFTIN 500 MG TAB 1 tablet by mouth twice daily for 7 days 07/24 CEFUROXIME AXETIL 09939044257 No Longer Active Anthony CARBONE Active ZOLOFT 50 MG TAB 1 tablet by mouth daily SERTRALINE HCL 57272343923 No Longer Active Anthony CARBONE Active ANUSOL-HC 2.5 % CREAM apply as needed HYDROCORTISONE (RECTAL) 05508382730 No Longer Active Anthony CARBONE Active COLACE 100 MG CAP 1 tab PO BID DOCUSATE SODIUM 42707680706 No Longer Active Anthony CARBONE Active TRINESSA (28) 0.18/0.215/0.25 MG-35 MCG TABS 1 po qd as directed NORGESTIM-ETH ESTRAD TRIPHASIC 61940831596 No Longer Active Anthony CARBONE Active [facility] MELATONIN 5 MG TABS 1-2 po qHS PRN Insomnia MELATONIN 37082990339 No Longer Active Anthony CARBONE Active ACYCLOVIR 400 MG TABS ACYCLOVIR 47540694365 No Longer Active Ang Markham MD Active HYDROXYZINE HCL 25 MG TABS 1 tab PO tid PRN itching HYDROXYZINE HCL 33149735183 No Longer Active Ang Markham MD Active DIFLUCAN 150 MG TAB 1 qODay x 2 doses FLUCONAZOLE 99244410422 No Longer Active Da Romero APRN Active ACYCLOVIR 400 MG TABS 1 pill twice daily ACYCLOVIR 66466961061 No Longer Active Josephllpiedad Romero APRN Active AZITHROMYCIN 250 MG TABS 2 po qd x 1 day, then 1 po qd x 4 days AZITHROMYCIN 76398729759 No Longer Active Eri Borges MD PhD Active AZITHROMYCIN 250 MG TABS take 2 po day 1 then take1 po days 2-5 AZITHROMYCIN 46804482750 No Longer Active Octaviano CARBONE Active ACYCLOVIR 400 MG TABS 1 po qd ACYCLOVIR 93558202071 No Longer Active Ang Markham MD Active PROZAC 40 MG CAPS 1 cap by mouth at bedtime FLUOXETINE HCL 59250299360 No Longer Active Ang Markham MD Active HYDROXYZINE HCL 25 MG TABS 1 tab PO tid PRN itching HYDROXYZINE HCL 25 MG TABS 296039 HYDROXYZINE HCL Inactive [facility] MELATONIN 5 MG TABS 1-2 po qHS PRN Insomnia [facility] MELATONIN 5 MG TABS 994742 MELATONIN Inactive TRINESSA (28) 0.18/0.215/0.25 MG-35 MCG TABS 1 po qd as directed TRINESSA (28) 0.18/0.215/0.25 MG-35 MCG TABS 176652 NORGESTIM-ETH ESTRAD TRIPHASIC Inactive COLACE 100 MG CAP 1 tab PO BID COLACE 100 MG CAP 4683214 DOCUSATE SODIUM Inactive ANUSOL-HC 2.5 % CREAM apply as needed ANUSOL-HC 2.5 % CREAM 307048 HYDROCORTISONE (RECTAL) Inactive ZOLOFT 50 MG TAB 1 tablet by mouth daily ZOLOFT 50 MG TAB 087440 SERTRALINE HCL Inactive CEFTIN 500 MG TAB 1 tablet by mouth twice daily for 7 days 07/24 CEFTIN 500 MG TAB 204029 CEFUROXIME AXETIL Inactive NITROFURANTOIN MACROCRYSTAL 100 MG CAPS 1 capsule PO bid x 7 days NITROFURANTOIN MACROCRYSTAL 100 MG CAPS 0524831 NITROFURANTOIN MACROCRYSTAL Inactive IBUPROFEN 800 MG TABS 1 tab every 8 hours as needed for pain 2013 IBUPROFEN 800 MG TABS 565181 IBUPROFEN Inactive COLACE 100 MG CAP 1 po BID PRN Constipation COLACE 100 MG CAP 8122852 DOCUSATE SODIUM Inactive MELOXICAM 15 MG TABS 1 po qd PRN Knee Pain MELOXICAM 15 MG TABS 147323 MELOXICAM Inactive LEVEMIR FLEXPEN 100 UNIT/ML SOLN 40 units SC at bedtime LEVEMIR FLEXPEN 100 UNIT/ML SOLN INSULIN DETEMIR Inactive GENTAMICIN SULFATE 0.1 % EXT OINT Apply to open sores once a day. GENTAMICIN SULFATE 0.1 % EXT OINT 148613 GENTAMICIN SULFATE Inactive EMBRACE BLOOD GLUCOSE TEST STRP Test blood sugars 4 times daily and PRN 08/05 EMBRACE BLOOD GLUCOSE TEST STRP GLUCOSE BLOOD Inactive LEVEMIR FLEXTOUCH 100 UNIT/ML SC SOPN 35 units SC at 12-1pm, 35 units 12-1am LEVEMIR FLEXTOUCH 100 UNIT/ML SC SOPN INSULIN DETEMIR Inactive CORTISPORIN 3.5-23154-4 SOLN 4gtts in affected ear QID x 7 days CORTISPORIN 3.5-00855-0 SOLN 809792 [id number] Inactive GEMFIBROZIL 600 MG TABS 1 po BID GEMFIBROZIL 600 MG TABS 288879 GEMFIBROZIL Inactive LIPITOR 40 MG TAB 1 po qHS LIPITOR 40 MG TAB 998804 ATORVASTATIN CALCIUM Inactive METFORMIN HCL 1000 MG TABS 1 tablet by mouth twice daily METFORMIN HCL 1000 MG TABS 720873 METFORMIN HCL Inactive TRESIBA FLEXTOUCH 200 UNIT/ML SC SOPN Take 70 units daily at mid-night to 1 am. TRESIBA FLEXTOUCH 200 UNIT/ML SC SOPN INSULIN DEGLUDEC Inactive DOXEPIN HCL 10 MG CAP 1 tablet nightly for the itch DOXEPIN HCL 10 MG CAP 6892631 DOXEPIN HCL Inactive LEVAQUIN 500 MG TABS 1 daily for infection LEVAQUIN 500 MG TABS 056907 LEVOFLOXACIN Inactive CLINDAMYCIN HCL 300 MG ORAL CAPS 1 four times a day CLINDAMYCIN HCL 300 MG ORAL CAPS 495867 CLINDAMYCIN HCL Inactive HYDROXYZINE HCL 25 MG TAB 1 TID PRN nerves HYDROXYZINE HCL 25 MG TAB 577307 HYDROXYZINE HCL Inactive ZANTAC 150 MG TAB 1 po BID ZANTAC 150 MG TAB 135678 RANITIDINE HCL Inactive COLACE 100 MG CAP 1 po daily COLACE 100 MG CAP 0153625 DOCUSATE SODIUM Inactive ACYCLOVIR 400 MG TABS 1 po qd ACYCLOVIR 400 MG TABS 19720928 ACYCLOVIR Inactive AZITHROMYCIN 250 MG TABS take 2 po day 1 then take1 po days 2-5 AZITHROMYCIN 250 MG TABS 475018 AZITHROMYCIN Inactive AZITHROMYCIN 250 MG TABS 2 po qd x 1 day, then 1 po qd x 4 days AZITHROMYCIN 250 MG TABS 358112 AZITHROMYCIN Inactive ACYCLOVIR 400 MG TABS 1 pill twice daily ACYCLOVIR 400 MG TABS 19720928 ACYCLOVIR Inactive DIFLUCAN 150 MG TAB 1 qODay x 2 doses DIFLUCAN 150 MG TAB 19760606 FLUCONAZOLE Inactive ACYCLOVIR 400 MG TABS ACYCLOVIR 400 MG TABS 19720928 ACYCLOVIR Inactive DIFLUCAN 150 MG TAB 1 qODay x 2 doses DIFLUCAN 150 MG TAB 053662 FLUCONAZOLE Inactive BACTRIM DS 800-160 MG TAB 1 tab by mouth twice daily BACTRIM DS 800-160 MG TAB 562874 TRIMETHOPRIM-SULFAMETHOXAZOLE Inactive Advance Directives Directive Description Start [...] rate temperature E&M 95.8 [degF] Body temperature Encounters Code Encounter Date Provider Facility CPT-37993 Level 3 Est. Patient 14:52:33 CDT Da Romero [facility] CPT-92403 Level 3 Est. Patient 10:22:30 CDT Conner Hills MD [facility] CPT-67195 Level 3 Est. Patient 15:02:19 CDT Shreya Velazquez [facility] CPT-08256 Level 3 Est. Patient 13:22:25 CDT Gabriel Hunt [facility] CPT-46079 Level 4 Est. Patient 16:02:22 CDT Ang Markham MD [facility] CPT-71744 Level 3 Est. Patient 16:21:23 CDT Celestine Huerta [facility] CPT-85698 Level 3 Est. Patient 17:02:56 CDT Gabriel Hunt [facility] CPT-21663 Level 3 Est. Patient 14:46:22 CDT Da Romero [facility] CPT-99180 Level 4 Est. Patient 13:55:20 CDT Ang Markham MD [facility] CPT-00543 Level 4 Est. Patient 16:10:09 CDT Celestine Huerta [facility] CPT-59441 Level 3 Est. Patient 13:51:24 CDT Ang Markham MD [facility] CPT-48151 Level 3 Est. Patient 18:42:15 CDT Gabriel Hunt [facility] CPT-04381 Level 5 Est. Patient 14:40:14 CDT Celestine Huerta [facility] CPT-57489 Level 4 Est. Patient 14:36:17 CDT Ang Markham MD [facility] CPT-07851 Level 3 Est. Patient 11:13:47 DIAPHRAGM BUILDER Ang Markham MD [facility] CPT-75318 Level 3 Est. Patient 11:59:20 DIAPHRAGM BUILDER Gloria Dunbar [facility] CPT-37381 Level 3 Est. Patient 17:32:37 DIAPHRAGM BUILDER Gloria Dunbar [facility] CPT-77603 Level 4 Est. Patient 16:39:07 CDT Ang Markham MD [facility] CPT-99081 Level 3 Est. Patient 16:35:50 CDT Ang Markham MD [facility] CPT-70940 Level 4 Est. Patient 13:53:06 DIAPHRAGM BUILDER Ang Markham MD [facility] CPT-91749 Level 3 Est. Patient 08:58:08 DIAPHRAGM BUILDER Ang Markham MD [facility] CPT-78425 Level 3 Est. Patient 18:48:29 CDT Anthony CARBONE [facility] CPT-26264 Level 3 Est. Patient 12:16:59 CDT Gabriel Hunt DO [facility] CPT-61679 Level 3 Est. Patient 18:57:15 CDT Anthony Whitfield [facility] CPT-96737 Level 3 Est. Patient 13:59:22 DIAPHRAGM BUILDER Ang Markham MD [facility] CPT-69718 Level 4 Est. Patient 10:36:08 DIAPHRAGM BUILDER Ang Markham MD [facility] CPT-02140 Level 3 Est. Patient 16:27:02 CDT Eri Borges MD, PhD [facility] CPT-74952 Level 3 Est. Patient 10:36:43 CDT Octaviano Wilkersonjj [facility] CPT-03148 Level 4 New Patient 08:58:06 CDT Ang Markham MD [facility] Procedures Code Procedure Name Date Entry Date Standard Description CPT-05043 LS spine comp w obliques - XRAY USE ONLY 15:34:48 CDT CPT-11403 Lipid - LAB USE ONLY 15:28:39 CDT CPT-35475 CMP - LAB USE ONLY 15:28:39 CDT CPT-15050 Venipuncture Draw Fee 15:28:39 CDT CPT-30764 Abd compl w upright - XRAY USE ONLY 14:09:39 CDT 02/28 CPT-35126 Venipuncture Draw Fee 12:25:15 CDT CPT-99421 Knee 3V 16:48:40 CDT CPT-OV Office Visit 16:27:13 CDT CPT-OV Office Visit 16:21:19 CDT CPT-17944 Sono pelvis non OB uterus ovaries cervix 09:37:28 CDT
--- OUTSIDE RECORDS SUMMARY | 2018-12-22 02:15 | XMS REPORT | Clinical Summary ---
Author Author Admin, QIE Organization [facility] Address Unknown Phone Unavailable Allergies, Adverse Reactions, [...] 5 MG TABS 1 po qd LISINOPRIL 46377720491 Active Ang Markham MD Active NOVOLOG FLEXPEN 100 UNIT/ML SOPN Take 20 units TID with meals INSULIN ASPART 75130440882 Wiley Markham MD Active LEVEMIR FLEXTOUCH 100 UNIT/ML SC SOPN 60 units SC nightly INSULIN DETEMIR 69749737259 Wiley Markham MD Active COLACE 100 MG CAP 1 po BID PRN Constipation DOCUSATE SODIUM 16700813027 Wiley Markham MD Active PAXIL 20 MG TAB 1 tablet by mouth daily PAROXETINE HCL 79751682364 Wiley Markham MD Active GENTAMICIN SULFATE 0.1 % EXT OINT Apply to open sores once a day. GENTAMICIN SULFATE 11968525777 No Longer Active Ang Markham MD Active ZOLPIDEM TARTRATE 10 MG TABS 1 po qHS PRN Insomnia ZOLPIDEM TARTRATE 59314019322 Active Ang Markham MD Active BACTRIM DS 800-160 MG TAB 1 tab by mouth twice daily TRIMETHOPRIM-SULFAMETHOXAZOLE 67836863444 No Longer Active Gloria Jefersonum MUTUEL MACHINE OPERATOR Active LEVEMIR FLEXPEN 100 UNIT/ML SOLN 40 units SC at bedtime INSULIN DETEMIR No Longer Active Susankalen Arellano RMA Active INSUPEN ULTRAFIN 31G X 6 MM MISC Use with insulin qid. DX: E11.9 INSULIN PEN NEEDLE 36154721802 Active Ang Markham MD Active ZOLOFT 100 MG TAB 1 po qHS SERTRALINE HCL 00611612251 No Longer Active Ang Markham MD Active MELOXICAM 15 MG TABS 1 po qd PRN Knee Pain MELOXICAM 06739748136 No Longer Active Ang Markham MD Active LIPITOR 40 MG TAB 1 po qHS ATORVASTATIN CALCIUM 45495737364 Active Ang Markham MD Active METFORMIN HCL 1000 MG TABS 1 tablet by mouth twice daily METFORMIN HCL 07638737100 Active Ang Markham MD Active CYCLOBENZAPRINE HCL 5 MG TABS 1 po qHS PRN Muscle pain CYCLOBENZAPRINE HCL 34994465599 Active Ang Markham MD Active COLACE 100 MG CAP 1 po BID PRN Constipation DOCUSATE SODIUM 16542583819 No Longer Active Ang Markham MD Active HYDROXYZINE HCL 25 MG TAB 1 TID PRN nerves HYDROXYZINE HCL 84058018043 Active Ang Markham MD Active IBUPROFEN 800 MG TABS 1 tab every 8 hours as needed for pain 2013 IBUPROFEN 15075364357 No Longer Active Ang Markham MD Active NITROFURANTOIN MACROCRYSTAL 100 MG CAPS 1 capsule PO bid x 7 days NITROFURANTOIN MACROCRYSTAL 44318212278 No Longer Active Ang Markham MD Active DIFLUCAN 150 MG TAB 1 qODay x 2 doses FLUCONAZOLE 73772712536 No Longer Active Da Romero APRN Active CEFTIN 500 MG TAB 1 tablet by mouth twice daily for 7 days 07/24 CEFUROXIME AXETIL 92395931189 No Longer Active Anthony CARBONE Active ZOLOFT 50 MG TAB 1 tablet by mouth daily SERTRALINE HCL 24058036226 No Longer Active Anthony CARBONE Active ANUSOL-HC 2.5 % CREAM apply as needed HYDROCORTISONE (RECTAL) 49140554610 No Longer Active Anthony CARBONE Active COLACE 100 MG CAP 1 tab PO BID DOCUSATE SODIUM 69110674095 No Longer Active Anthony CARBONE Active TRINESSA (28) 0.18/0.215/0.25 MG-35 MCG TABS 1 po qd as directed NORGESTIM-ETH ESTRAD TRIPHASIC 21600903231 No Longer Active Anthony CARBONE Active [facility] MELATONIN 5 MG TABS 1-2 po qHS PRN Insomnia MELATONIN 64386067994 No Longer Active Anthony CARBONE Active ACYCLOVIR 400 MG TABS ACYCLOVIR 15880076756 No Longer Active Ang Markham MD Active EMBRACE BLOOD GLUCOSE TEST STRP Test blood sugars 4 times daily and PRN 08/05 GLUCOSE BLOOD 58049663063 Active Ang Markham MD Active HYDROXYZINE HCL 25 MG TABS 1 tab PO tid PRN itching HYDROXYZINE HCL 88650294378 No Longer Active Ang Markham MD Active DIFLUCAN 150 MG TAB 1 qODay x 2 doses FLUCONAZOLE 86540347993 No Longer Active Da Romero APRN Active ACYCLOVIR 400 MG TABS 1 pill twice daily ACYCLOVIR 19529376443 No Longer Active Da Romero APRN Active AZITHROMYCIN 250 MG TABS 2 po qd x 1 day, then 1 po qd x 4 days AZITHROMYCIN 77316546491 No Longer Active Eri Borges MD PhD Active AZITHROMYCIN 250 MG TABS take 2 po day 1 then take1 po days 2-5 AZITHROMYCIN 18054484064 No Longer Active Octaviano CARBONE Active ACYCLOVIR 400 MG TABS 1 po qd ACYCLOVIR 83269358729 No Longer Active Ang Markham MD Active PROZAC 40 MG CAPS 1 cap by mouth at bedtime FLUOXETINE HCL 80555807392 No Longer Active Ang Markham MD Active HYDROXYZINE HCL 25 MG TABS 1 tab PO tid PRN itching HYDROXYZINE HCL 25 MG TABS 993384 HYDROXYZINE HCL Inactive [facility] MELATONIN 5 MG TABS 1-2 po qHS PRN Insomnia [facility] MELATONIN 5 MG TABS 715495 MELATONIN Inactive TRINESSA (28) 0.18/0.215/0.25 MG-35 MCG TABS 1 po qd as directed TRINESSA (28) 0.18/0.215/0.25 MG-35 MCG TABS 854595 NORGESTIM-ETH ESTRAD TRIPHASIC Inactive COLACE 100 MG CAP 1 tab PO BID COLACE 100 MG CAP 5843745 DOCUSATE SODIUM Inactive ANUSOL-HC 2.5 % CREAM apply as needed ANUSOL-HC 2.5 % CREAM 749537 HYDROCORTISONE (RECTAL) Inactive ZOLOFT 50 MG TAB 1 tablet by mouth daily ZOLOFT 50 MG TAB 522355 SERTRALINE HCL Inactive CEFTIN 500 MG TAB 1 tablet by mouth twice daily for 7 days 07/24 CEFTIN 500 MG TAB 940518 CEFUROXIME AXETIL Inactive NITROFURANTOIN MACROCRYSTAL 100 MG CAPS 1 capsule PO bid x 7 days NITROFURANTOIN MACROCRYSTAL 100 MG CAPS 4751521 NITROFURANTOIN MACROCRYSTAL Inactive IBUPROFEN 800 MG TABS 1 tab every 8 hours as needed for pain 2013 IBUPROFEN 800 MG TABS 929052 IBUPROFEN Inactive COLACE 100 MG CAP 1 po BID PRN Constipation COLACE 100 MG CAP 7693099 DOCUSATE SODIUM Inactive MELOXICAM 15 MG TABS 1 po qd PRN Knee Pain MELOXICAM 15 MG TABS 592473 MELOXICAM Inactive LEVEMIR FLEXPEN 100 UNIT/ML SOLN 40 units SC at bedtime LEVEMIR FLEXPEN 100 UNIT/ML SOLN INSULIN DETEMIR Inactive GENTAMICIN SULFATE 0.1 % EXT OINT Apply to open sores once a day. GENTAMICIN SULFATE 0.1 % EXT OINT 913872 GENTAMICIN SULFATE Inactive ACYCLOVIR 400 MG TABS 1 po qd ACYCLOVIR 400 MG TABS 19720928 ACYCLOVIR Inactive AZITHROMYCIN 250 MG TABS take 2 po day 1 then take1 po days 2-5 AZITHROMYCIN 250 MG TABS 5455184 AZITHROMYCIN Inactive AZITHROMYCIN 250 MG TABS 2 po qd x 1 day, then 1 po qd x 4 days AZITHROMYCIN 250 MG TABS 4709736 AZITHROMYCIN Inactive ACYCLOVIR 400 MG TABS 1 pill twice daily ACYCLOVIR 400 MG TABS 448218 ACYCLOVIR Inactive DIFLUCAN 150 MG TAB 1 qODay x 2 doses DIFLUCAN 150 MG TAB 530052 FLUCONAZOLE Inactive ACYCLOVIR 400 MG TABS ACYCLOVIR 400 MG TABS 657648 ACYCLOVIR Inactive DIFLUCAN 150 MG TAB 1 qODay x 2 doses DIFLUCAN 150 MG TAB 125424 FLUCONAZOLE Inactive BACTRIM DS 800-160 MG TAB 1 tab by mouth twice daily BACTRIM DS 800-160 MG TAB 756802 TRIMETHOPRIM-SULFAMETHOXAZOLE Inactive Advance Directives Directive Description Start [...] HGBA1C - Chemistry sodium, serum 134 mmol/L 404-193 4169/03/16 carbon dioxide, venous blood 34.5 mmol/L 21.0-32.0 potassium, serum 4.6 mmol/L 3.5-5.2 chloride, serum 93 mmol/L 98-107 blood glucose 408 mg/dL 65-110 urea nitrogen, blood 3 mg/dL 7-18 creatinine, serum 0.58 mg/dL 0.55-1.30 alanine aminotransferase (SGPT), serum 11 U/L 12-78 aspartate aminotransferase (SGOT), serum 8 U/L 15-37 calcium, serum 9.2 mg/dL 8.5-10.1 bilirubin, serum, total 0.30 mg/dL 0.00-1.00 cholesterol, serum 195 mg/dL 962-935 7129/03/16 triglyceride, serum, fasting 138 mg/dL 30-200 HDL cholesterol, serum 41 mg/dL 32-96 LDL cholesterol, serum 126 mg/dL 0-130 hemoglobin A1C, blood, as % of total hemoglobin 13.6 % 4.3-6.0 Lab Report: CBC, Comp. Metabolic Panel, Lipid Panel, HGBA1C - Hematology hematocrit, blood 40.8 % 36.0-46.0 hemoglobin, blood 13.3 g/dL 12.0-16.0 erythrocyte (RBC) count 5.06 10^6/MM^3 10*6/mm3 4.04-5.48 leukocyte count, blood 15.0 10^3/MM^3 10*3/mm3 4.6-10.2 mean corpuscular volume, RBC 81 fL 80-97 [...] 0-19 Encounters Code Encounter Date Provider Facility CPT-44965 Level 4 Est. Patient 14:36:17 CDT Ang Markham MD [facility] CPT-05015 Level 3 Est. Patient 11:13:47 WIRE TURNING MACHINE OPERATOR Ang Markham MD [facility] CPT-22192 Level 3 Est. Patient 11:59:20 WIRE TURNING MACHINE OPERATOR Gloria Dunbar [facility] CPT-05945 Level 3 Est. Patient 17:32:37 WIRE TURNING MACHINE OPERATOR Gloria Dunbar [facility] CPT-96050 Level 4 Est. Patient 16:39:07 CDT Ang Markham MD [facility] CPT-82029 Level 3 Est. Patient 16:35:50 CDT Ang Markham MD [facility] CPT-06658 Level 4 Est. Patient 13:53:06 WIRE TURNING MACHINE OPERATOR Ang Markham MD [facility] CPT-07316 Level 3 Est. Patient 08:58:08 WIRE TURNING MACHINE OPERATOR Ang Markham MD [facility] CPT-38125 Level 3 Est. Patient 18:48:29 CDT Anthony Whitfield [facility] CPT-20638 Level 3 Est. Patient 12:16:59 CDT Gabriel Hunt DO [facility] CPT-76193 Level 3 Est. Patient 18:57:15 CDT Anthony Whitfield [facility] CPT-34369 Level 3 Est. Patient 13:59:22 WIRE TURNING MACHINE OPERATOR Ang Markham MD [facility] CPT-14012 Level 4 Est. Patient 10:36:08 WIRE TURNING MACHINE OPERATOR Ang Markham MD [facility] CPT-99128 Level 3 Est. Patient 16:27:02 CDT Eri Borges MD [facility] CPT-52856 Level 3 Est. Patient 10:36:43 CDT Octaviano Wilkersonjj [facility] CPT-31089 Level 4 New Patient 08:58:06 CDT Ang Markham MD [facility] Procedures Code Procedure Name Date Entry Date Standard Description CPT-69499 Venipuncture Draw Fee 12:25:15 CDT CPT-59953 Knee 3V 16:48:40 CDT CPT-OV Office Visit 16:27:13 CDT CPT-OV Office Visit 16:21:19 CDT CPT-59476 Sono pelvis non OB uterus ovaries cervix 09:37:28 CDT
--- OUTSIDE RECORDS SUMMARY | 2018-12-22 02:16 | XMS REPORT | Clinical Summary ---
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 Ratio vs. Carbs INSULIN ASPART 17117539578 Active Gabriel Hunt DO Active BD PEN NEEDLE DINESH U/F 32G X 4 MM MISC 5 a day INSULIN PEN NEEDLE 22562551746 Active Maliheh Ziglari CRAYON SAWYER Active LEVEMIR FLEXTOUCH 100 UNIT/ML SC SOPN 30 units SC at 12-1pm, 30 units 12-1am INSULIN DETEMIR 86913145122 Active Maliheh Ziglari CRAYON SAWYER Active EMBRACE BLOOD GLUCOSE TEST STRP Test blood sugars 4 times daily and PRN 08/05 GLUCOSE BLOOD 35617754167 No Longer Active Maliheh Ziglari CRAYON SAWYER Active TRUEPLUS LANCETS 30G MISC 4 a day LANCETS 40047952027 Active Maliheh Ziglari CRAYON SAWYER Active TRUETEST TEST STRP check blood sugars 4x/day GLUCOSE BLOOD 93495045569 Active Maliheh Ziglari CRAYON SAWYER Active TRUERESULT BLOOD GLUCOSE W/DEVICE KIT check blood sugars 4x a day BLOOD GLUCOSE MONITORING SUPPL 50524494431 Active Maliheh Ziglari CRAYON SAWYER Active LISINOPRIL 5 MG TABS 1 po qd LISINOPRIL 85730278939 Active Ang Markham MD Active PAXIL 20 MG TAB 1 tablet by mouth daily PAROXETINE HCL 53643697780 Active Ang Markham MD Active GENTAMICIN SULFATE 0.1 % EXT OINT Apply to open sores once a day. GENTAMICIN SULFATE 66133491995 No Longer Active Ang Markham MD Active ZOLPIDEM TARTRATE 10 MG TABS 1 po qHS PRN Insomnia ZOLPIDEM TARTRATE 65864863549 Active Ang Markham MD Active BACTRIM DS 800-160 MG TAB 1 tab by mouth twice daily TRIMETHOPRIM-SULFAMETHOXAZOLE 31743331551 No Longer Active Gloria Dunbar BRANCH BILLING PAYROLL CLERK Active LEVEMIR FLEXPEN 100 UNIT/ML SOLN 40 units SC at bedtime INSULIN DETEMIR No Longer Active Susan Arellano RMA Active INSUPEN ULTRAFIN 31G X 6 MM MISC Use with insulin qid. DX: E11.9 INSULIN PEN NEEDLE 43989892839 Active Ang Markham MD Active ZOLOFT 100 MG TAB 1 po qHS SERTRALINE HCL 67123856864 No Longer Active Ang Markham MD Active MELOXICAM 15 MG TABS 1 po qd PRN Knee Pain MELOXICAM 15455008795 No Longer Active Ang Markham MD Active LIPITOR 40 MG TAB 1 po qHS ATORVASTATIN CALCIUM 17617693849 Active Ang Markham MD Active METFORMIN HCL 1000 MG TABS 1 tablet by mouth twice daily METFORMIN HCL 77419595901 Active Ang Markham MD Active CYCLOBENZAPRINE HCL 5 MG TABS 1 po qHS PRN Muscle pain CYCLOBENZAPRINE HCL 36597573923 Active Ang Markham MD Active COLACE 100 MG CAP 1 po BID PRN Constipation DOCUSATE SODIUM 43192964318 No Longer Active Ang Markham MD Active HYDROXYZINE HCL 25 MG TAB 1 TID PRN nerves HYDROXYZINE HCL 88222187435 Active Ang Markham MD Active IBUPROFEN 800 MG TABS 1 tab every 8 hours as needed for pain 2013 IBUPROFEN 18374850917 No Longer Active Ang Markham MD Active NITROFURANTOIN MACROCRYSTAL 100 MG CAPS 1 capsule PO bid x 7 days NITROFURANTOIN MACROCRYSTAL 75696187735 No Longer Active Ang Markham MD Active DIFLUCAN 150 MG TAB 1 qODay x 2 doses FLUCONAZOLE 91368531470 No Longer Active Da Romero BRANCH BILLING PAYROLL CLERK Active CEFTIN 500 MG TAB 1 tablet by mouth twice daily for 7 days 07/24 CEFUROXIME AXETIL 89035184407 No Longer Active Anthony CARBONE Active ZOLOFT 50 MG TAB 1 tablet by mouth daily SERTRALINE HCL 24968051506 No Longer Active Anthony CARBONE Active ANUSOL-HC 2.5 % CREAM apply as needed HYDROCORTISONE (RECTAL) 80842854178 No Longer Active Anthony CARBONE Active COLACE 100 MG CAP 1 tab PO BID DOCUSATE SODIUM 91572631687 No Longer Active Anthony CARBONE Active TRINESSA (28) 0.18/0.215/0.25 MG-35 MCG TABS 1 po qd as directed NORGESTIM-ETH ESTRAD TRIPHASIC 97541057227 No Longer Active Anthony CARBONE Active [facility] MELATONIN 5 MG TABS 1-2 po qHS PRN Insomnia MELATONIN 71432646668 No Longer Active Anthony CARBONE Active ACYCLOVIR 400 MG TABS ACYCLOVIR 56168448253 No Longer Active Ang Markham MD Active HYDROXYZINE HCL 25 MG TABS 1 tab PO tid PRN itching HYDROXYZINE HCL 17352452771 No Longer Active Ang Markham MD Active DIFLUCAN 150 MG TAB 1 qODay x 2 doses FLUCONAZOLE 33862503411 No Longer Active Da Romero APRN Active ACYCLOVIR 400 MG TABS 1 pill twice daily ACYCLOVIR 50392679257 No Longer Active Da Romero APRN Active AZITHROMYCIN 250 MG TABS 2 po qd x 1 day, then 1 po qd x 4 days AZITHROMYCIN 73650447589 No Longer Active Eri Borges MD PhD Active AZITHROMYCIN 250 MG TABS take 2 po day 1 then take1 po days 2-5 AZITHROMYCIN 88918057766 No Longer Active Octaviano CARBONE Active ACYCLOVIR 400 MG TABS 1 po qd ACYCLOVIR 27778356227 No Longer Active Ang Markham MD Active PROZAC 40 MG CAPS 1 cap by mouth at bedtime FLUOXETINE HCL 03719944732 No Longer Active Ang Markham MD Active HYDROXYZINE HCL 25 MG TABS 1 tab PO tid PRN itching HYDROXYZINE HCL 25 MG TABS 781404 HYDROXYZINE HCL Inactive [facility] MELATONIN 5 MG TABS 1-2 po qHS PRN Insomnia [facility] MELATONIN 5 MG TABS 612267 MELATONIN Inactive TRINESSA (28) 0.18/0.215/0.25 MG-35 MCG TABS 1 po qd as directed TRINESSA (28) 0.18/0.215/0.25 MG-35 MCG TABS 079315 NORGESTIM-ETH ESTRAD TRIPHASIC Inactive COLACE 100 MG CAP 1 tab PO BID COLACE 100 MG CAP 3741279 DOCUSATE SODIUM Inactive ANUSOL-HC 2.5 % CREAM apply as needed ANUSOL-HC 2.5 % CREAM 736558 HYDROCORTISONE (RECTAL) Inactive ZOLOFT 50 MG TAB 1 tablet by mouth daily ZOLOFT 50 MG TAB 804187 SERTRALINE HCL Inactive CEFTIN 500 MG TAB 1 tablet by mouth twice daily for 7 days 07/24 CEFTIN 500 MG TAB 116124 CEFUROXIME AXETIL Inactive NITROFURANTOIN MACROCRYSTAL 100 MG CAPS 1 capsule PO bid x 7 days NITROFURANTOIN MACROCRYSTAL 100 MG CAPS 8986412 NITROFURANTOIN MACROCRYSTAL Inactive IBUPROFEN 800 MG TABS 1 tab every 8 hours as needed for pain 2013 IBUPROFEN 800 MG TABS 052287 IBUPROFEN Inactive COLACE 100 MG CAP 1 po BID PRN Constipation COLACE 100 MG CAP 6065797 DOCUSATE SODIUM Inactive MELOXICAM 15 MG TABS 1 po qd PRN Knee Pain MELOXICAM 15 MG TABS 764179 MELOXICAM Inactive LEVEMIR FLEXPEN 100 UNIT/ML SOLN 40 units SC at bedtime LEVEMIR FLEXPEN 100 UNIT/ML SOLN INSULIN DETEMIR Inactive GENTAMICIN SULFATE 0.1 % EXT OINT Apply to open sores once a day. GENTAMICIN SULFATE 0.1 % EXT OINT 434966 GENTAMICIN SULFATE Inactive EMBRACE BLOOD GLUCOSE TEST STRP Test blood sugars 4 times daily and PRN 08/05 EMBRACE BLOOD GLUCOSE TEST STRP GLUCOSE BLOOD Inactive ACYCLOVIR 400 MG TABS 1 po qd ACYCLOVIR 400 MG TABS 19720928 ACYCLOVIR Inactive AZITHROMYCIN 250 MG TABS take 2 po day 1 then take1 po days 2-5 AZITHROMYCIN 250 MG TABS 2834675 AZITHROMYCIN Inactive AZITHROMYCIN 250 MG TABS 2 po qd x 1 day, then 1 po qd x 4 days AZITHROMYCIN 250 MG TABS 6699646 AZITHROMYCIN Inactive ACYCLOVIR 400 MG TABS 1 pill twice daily ACYCLOVIR 400 MG TABS 19720928 ACYCLOVIR Inactive DIFLUCAN 150 MG TAB 1 qODay x 2 doses DIFLUCAN 150 MG TAB 576927 FLUCONAZOLE Inactive ACYCLOVIR 400 MG TABS ACYCLOVIR 400 MG TABS 19720928 ACYCLOVIR Inactive DIFLUCAN 150 MG TAB 1 qODay x 2 doses DIFLUCAN 150 MG TAB 442115 FLUCONAZOLE Inactive BACTRIM DS 800-160 MG TAB 1 tab by mouth twice daily BACTRIM DS 800-160 MG TAB 714028 TRIMETHOPRIM-SULFAMETHOXAZOLE Inactive Advance Directives Directive Description Start [...] HGBA1C - Chemistry sodium, serum 134 mmol/L 545-094 5341/03/16 carbon dioxide, venous blood 34.5 mmol/L 21.0-32.0 potassium, serum 4.6 mmol/L 3.5-5.2 chloride, serum 93 mmol/L 98-107 blood glucose 408 mg/dL 65-110 urea nitrogen, blood 3 mg/dL 7-18 creatinine, serum 0.58 mg/dL 0.55-1.30 alanine aminotransferase (SGPT), serum 11 U/L 12-78 aspartate aminotransferase (SGOT), serum 8 U/L 15-37 calcium, serum 9.2 mg/dL 8.5-10.1 bilirubin, serum, total 0.30 mg/dL 0.00-1.00 cholesterol, serum 195 mg/dL 792-104 3681/03/16 triglyceride, serum, fasting 138 mg/dL 30-200 HDL [...] Yes Encounters Code Encounter Date Provider Facility CPT-74216 Level 3 Est. Patient 13:51:24 CDT Ang Markham MD [facility] CPT-54987 Level 3 Est. Patient 18:42:15 CDT Gabriel Hunt [facility] CPT-26434 Level 5 Est. Patient 14:40:14 CDT Celestine Hoganisrael PEARCE [facility] CPT-07510 Level 4 Est. Patient 14:36:17 CDT Ang Markham MD [facility] CPT-66260 Level 3 Est. 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 Patient 11:59:20 BULK INTAKE WORKER [facility] CPT-24401 Level 3 Est. Patient 17:32:37 BULK INTAKE WORKER [facility] CPT-94800 Level 4 Est. Patient 16:39:07 CDT Ang Markham MD [facility] CPT-09884 Level 3 Est. Patient 16:35:50 CDT Ang Markham MD [facility] CPT-18491 Level 4 Est. Patient 13:53:06 BULK INTAKE WORKER Ang Markham MD [facility] CPT-85556 Level 3 Est. Patient 08:58:08 BULK INTAKE WORKER Ang Markham MD [facility] CPT-75352 Level 3 Est. Patient 18:48:29 CDT Anthony Whitfield [facility] CPT-15331 Level 3 Est. Patient 12:16:59 CDT Gabriel Hunt DO [facility] CPT-37870 Level 3 Est. Patient 18:57:15 CDT Anthony Whitfield [facility] CPT-64520 Level 3 Est. Patient 13:59:22 BULK INTAKE WORKER Ang Markham MD [facility] CPT-44434 Level 4 Est. Patient 10:36:08 BULK INTAKE WORKER Ang Markham MD [facility] CPT-89643 Level 3 Est. Patient 16:27:02 CDT Eri Borges MD PhD [facility] CPT-32109 Level 3 Est. Patient 10:36:43 CDT Kellyfaviola Roselyn PA [facility] CPT-85981 Level 4 New Patient 08:58:06 CDT Ang Markham MD [facility] Procedures Code Procedure Name Date Entry Date Standard Description CPT-46119 Abd compl w upright - XRAY USE ONLY 14:09:39 CDT 02/28 CPT-58477 Venipuncture Draw Fee 12:25:15 CDT CPT-06763 Knee 3V 16:48:40 CDT CPT-OV Office Visit 16:27:13 CDT CPT-OV Office Visit 16:21:19 CDT CPT-47538 Sono pelvis non OB uterus ovaries cervix 09:37:28 CDT
--- OUTSIDE RECORDS SUMMARY | 2018-12-22 02:17 | XMS REPORT | Clinical Summary ---
Author Author Admin, QIE Organization [email or web address] Address Unknown Phone Unavailable Allergies, Adverse Reactions, [...] 5 MG TABS 1 po qd LISINOPRIL 27259716331 Active Ang Markham MD Active NOVOLOG FLEXPEN 100 UNIT/ML SOPN Take 20 units TID with meals INSULIN ASPART 52689996239 Wiley Markham MD Active LEVEMIR FLEXTOUCH 100 UNIT/ML SC SOPN 60 units SC nightly INSULIN DETEMIR 63388759057 Wiley Markham MD Active COLACE 100 MG CAP 1 po BID PRN Constipation DOCUSATE SODIUM 81279777174 Wiley Markham MD Active PAXIL 20 MG TAB 1 tablet by mouth daily PAROXETINE HCL 96978436764 Wiley Markham MD Active GENTAMICIN SULFATE 0.1 % EXT OINT Apply to open sores once a day. GENTAMICIN SULFATE 49973241685 No Longer Active Ang Markham MD Active ZOLPIDEM TARTRATE 10 MG TABS 1 po qHS PRN Insomnia ZOLPIDEM TARTRATE 10607590196 Active Ang Markham MD Active BACTRIM DS 800-160 MG TAB 1 tab by mouth twice daily TRIMETHOPRIM-SULFAMETHOXAZOLE 51565953175 No Longer Active Gloria Jefersonum AUTO FLEET MANAGER Active LEVEMIR FLEXPEN 100 UNIT/ML SOLN 40 units SC at bedtime INSULIN DETEMIR No Longer Active Susankalen Arellano RMA Active INSUPEN ULTRAFIN 31G X 6 MM MISC Use with insulin qid. DX: E11.9 INSULIN PEN NEEDLE 09323360359 Active Ang Markham MD Active ZOLOFT 100 MG TAB 1 po qHS SERTRALINE HCL 70113555139 No Longer Active Ang Markham MD Active MELOXICAM 15 MG TABS 1 po qd PRN Knee Pain MELOXICAM 12386132239 No Longer Active Ang Markham MD Active LIPITOR 40 MG TAB 1 po qHS ATORVASTATIN CALCIUM 04292878121 Active Ang Markham MD Active METFORMIN HCL 1000 MG TABS 1 tablet by mouth twice daily METFORMIN HCL 40430296857 Active Ang Markham MD Active CYCLOBENZAPRINE HCL 5 MG TABS 1 po qHS PRN Muscle pain CYCLOBENZAPRINE HCL 60215259117 Active Ang Markham MD Active COLACE 100 MG CAP 1 po BID PRN Constipation DOCUSATE SODIUM 03976749750 No Longer Active Ang Markham MD Active HYDROXYZINE HCL 25 MG TAB 1 TID PRN nerves HYDROXYZINE HCL 25845874507 Active Ang Markham MD Active IBUPROFEN 800 MG TABS 1 tab every 8 hours as needed for pain 2013 IBUPROFEN 37096137972 No Longer Active Ang Markham MD Active NITROFURANTOIN MACROCRYSTAL 100 MG CAPS 1 capsule PO bid x 7 days NITROFURANTOIN MACROCRYSTAL 00175818230 No Longer Active Ang Markham MD Active DIFLUCAN 150 MG TAB 1 qODay x 2 doses FLUCONAZOLE 41077649670 No Longer Active Da Romero APRN Active CEFTIN 500 MG TAB 1 tablet by mouth twice daily for 7 days 07/24 CEFUROXIME AXETIL 47583379652 No Longer Active Anthony CARBONE Active ZOLOFT 50 MG TAB 1 tablet by mouth daily SERTRALINE HCL 04509178264 No Longer Active Anthony CARBONE Active ANUSOL-HC 2.5 % CREAM apply as needed HYDROCORTISONE (RECTAL) 87601579785 No Longer Active Anthony CARBONE Active COLACE 100 MG CAP 1 tab PO BID DOCUSATE SODIUM 18399825946 No Longer Active Anthony CARBONE Active TRINESSA (28) 0.18/0.215/0.25 MG-35 MCG TABS 1 po qd as directed NORGESTIM-ETH ESTRAD TRIPHASIC 40042781382 No Longer Active Anthony CARBONE Active [facility] MELATONIN 5 MG TABS 1-2 po qHS PRN Insomnia MELATONIN 14093950299 No Longer Active Anthony CARBONE Active ACYCLOVIR 400 MG TABS ACYCLOVIR 34331314683 No Longer Active Ang Markham MD Active EMBRACE BLOOD GLUCOSE TEST STRP Test blood sugars 4 times daily and PRN 08/05 GLUCOSE BLOOD 59313426717 Active Ang Markham MD Active HYDROXYZINE HCL 25 MG TABS 1 tab PO tid PRN itching HYDROXYZINE HCL 12338742638 No Longer Active Ang Markham MD Active DIFLUCAN 150 MG TAB 1 qODay x 2 doses FLUCONAZOLE 99324812544 No Longer Active Da Romero APRN Active ACYCLOVIR 400 MG TABS 1 pill twice daily ACYCLOVIR 85447074477 No Longer Active Da Romero APRN Active AZITHROMYCIN 250 MG TABS 2 po qd x 1 day, then 1 po qd x 4 days AZITHROMYCIN 83665268275 No Longer Active Eri Borges MD PhD Active AZITHROMYCIN 250 MG TABS take 2 po day 1 then take1 po days 2-5 AZITHROMYCIN 80616319178 No Longer Active Octaviano CARBONE Active ACYCLOVIR 400 MG TABS 1 po qd ACYCLOVIR 42829485076 No Longer Active Ang Markham MD Active PROZAC 40 MG CAPS 1 cap by mouth at bedtime FLUOXETINE HCL 07485102133 No Longer Active Ang Markham MD Active HYDROXYZINE HCL 25 MG TABS 1 tab PO tid PRN itching HYDROXYZINE HCL 25 MG TABS 232414 HYDROXYZINE HCL Inactive [facility] MELAT[facility]IN 5 MG TABS 1-2 po qHS PRN Insomnia [facility] MELATONIN 5 MG TABS 846054 MELATONIN Inactive TRINESSA (28) 0.18/0.215/0.25 MG-35 MCG TABS 1 po qd as directed TRINESSA (28) 0.18/0.215/0.25 MG-35 MCG TABS 223682 NORGESTIM-ETH ESTRAD TRIPHASIC Inactive COLACE 100 MG CAP 1 tab PO BID COLACE 100 MG CAP 5173753 DOCUSATE SODIUM Inactive ANUSOL-HC 2.5 % CREAM apply as needed ANUSOL-HC 2.5 % CREAM 610382 HYDROCORTISONE (RECTAL) Inactive ZOLOFT 50 MG TAB 1 tablet by mouth daily ZOLOFT 50 MG TAB 287172 SERTRALINE HCL Inactive CEFTIN 500 MG TAB 1 tablet by mouth twice daily for 7 days 07/24 CEFTIN 500 MG TAB 001642 CEFUROXIME AXETIL Inactive NITROFURANTOIN MACROCRYSTAL 100 MG CAPS 1 capsule PO bid x 7 days NITROFURANTOIN MACROCRYSTAL 100 MG CAPS 3364824 NITROFURANTOIN MACROCRYSTAL Inactive IBUPROFEN 800 MG TABS 1 tab every 8 hours as needed for pain 2013 IBUPROFEN 800 MG TABS 880621 IBUPROFEN Inactive COLACE 100 MG CAP 1 po BID PRN Constipation COLACE 100 MG CAP 6181241 DOCUSATE SODIUM Inactive MELOXICAM 15 MG TABS 1 po qd PRN Knee Pain MELOXICAM 15 MG TABS 530826 MELOXICAM Inactive LEVEMIR FLEXPEN 100 UNIT/ML SOLN 40 units SC at bedtime LEVEMIR FLEXPEN 100 UNIT/ML SOLN INSULIN DETEMIR Inactive GENTAMICIN SULFATE 0.1 % EXT OINT Apply to open sores once a day. GENTAMICIN SULFATE 0.1 % EXT OINT 407384 GENTAMICIN SULFATE Inactive ACYCLOVIR 400 MG TABS 1 po qd ACYCLOVIR 400 MG TABS 19720928 ACYCLOVIR Inactive AZITHROMYCIN 250 MG TABS take 2 po day 1 then take1 po days 2-5 AZITHROMYCIN 250 MG TABS 8436854 AZITHROMYCIN Inactive AZITHROMYCIN 250 MG TABS 2 po qd x 1 day, then 1 po qd x 4 days AZITHROMYCIN 250 MG TABS 8516300 AZITHROMYCIN Inactive ACYCLOVIR 400 MG TABS 1 pill twice daily ACYCLOVIR 400 MG TABS 898604 ACYCLOVIR Inactive DIFLUCAN 150 MG TAB 1 qODay x 2 doses DIFLUCAN 150 MG TAB 686697 FLUCONAZOLE Inactive ACYCLOVIR 400 MG TABS ACYCLOVIR 400 MG TABS 487161 ACYCLOVIR Inactive DIFLUCAN 150 MG TAB 1 qODay x 2 doses DIFLUCAN 150 MG TAB 778566 FLUCONAZOLE Inactive BACTRIM DS 800-160 MG TAB 1 tab by mouth twice daily BACTRIM DS 800-160 MG TAB 018398 TRIMETHOPRIM-SULFAMETHOXAZOLE Inactive Advance Directives Directive Description Start [...] HGBA1C - Chemistry sodium, serum 134 mmol/L 165-598 2445/03/16 carbon dioxide, venous blood 34.5 mmol/L 21.0-32.0 potassium, serum 4.6 mmol/L 3.5-5.2 chloride, serum 93 mmol/L 98-107 blood glucose 408 mg/dL 65-110 urea nitrogen, blood 3 mg/dL 7-18 creatinine, serum 0.58 mg/dL 0.55-1.30 alanine aminotransferase (SGPT), serum 11 U/L 12-78 aspartate aminotransferase (SGOT), serum 8 U/L 15-37 calcium, serum 9.2 mg/dL 8.5-10.1 bilirubin, serum, total 0.30 mg/dL 0.00-1.00 cholesterol, serum 195 mg/dL 090-556 2206/03/16 triglyceride, serum, fasting 138 mg/dL 30-200 HDL [...] 0-19 Encounters Code Encounter Date Provider Facility CPT-59994 Level 4 Est. Patient 14:36:17 CDT Ang Markham MD [facility] CPT-90594 Level 3 Est. Patient 11:13:47 WARP WORKER Ang Markham MD [facility] CPT-80109 Level 3 Est. Patient 11:59:20 WARP WORKER Gloria Dunbar [facility] CPT-17369 Level 3 Est. Patient 17:32:37 WARP WORKER Gloria Dunbar [facility] CPT-62094 Level 4 Est. Patient 16:39:07 CDT Ang Markham MD [facility] CPT-46353 Level 3 Est. Patient 16:35:50 CDT Ang Markham MD [facility] CPT-20154 Level 4 Est. Patient 13:53:06 WARP WORKER Ang Markham MD [facility] CPT-50076 Level 3 Est. Patient 08:58:08 WARP WORKER Ang Markham MD [facility] CPT-72573 Level 3 Est. Patient 18:48:29 CDT Anthony Whitfield [facility] CPT-92728 Level 3 Est. Patient 12:16:59 CDT Gabriel Hunt DO [facility] CPT-79026 Level 3 Est. Patient 18:57:15 CDT Anthony Whitfield [facility] CPT-40528 Level 3 Est. Patient 13:59:22 WARP WORKER Ang Markham MD [facility] CPT-90360 Level 4 Est. Patient 10:36:08 WARP WORKER Ang Markham MD [facility] CPT-30209 Level 3 Est. Patient 16:27:02 CDT Eri Borges MD [facility] CPT-95435 Level 3 Est. Patient 10:36:43 CDT Octaviano Wilkersonjj [facility] CPT-35980 Level 4 New Patient 08:58:06 CDT Ang Markham MD [facility] Procedures Code Procedure Name Date Entry Date Standard Description CPT-39549 Venipuncture Draw Fee 12:25:15 CDT CPT-32303 Knee 3V 16:48:40 CDT CPT-OV Office Visit 16:27:13 CDT CPT-OV Office Visit 16:21:19 CDT CPT-04372 Sono pelvis non OB uterus ovaries cervix 09:37:28 CDT
--- OUTSIDE RECORDS SUMMARY | 2018-12-22 02:18 | XMS REPORT | Clinical Summary ---
Author Author Admin, QIE Organization [facility] Address Unknown Phone Unavailable Allergies, Adverse Reactions, [...] Inactive Ang Markham MD Cystitis, acute ICD-595.0 Nathan Markham MD UTI ICD-599.0 Inactive Ang Markham MD Insomnia ICD-780.52 Nathan Markham MD Diabetes mellitus ICD-250.00 Nathan Markham MD Vaginal discharge ICD-623.5 Nathan Markham MD Amenorrhea ICD-626.0 Nathan Markham MD Cellulitis, ankle, left ICD-682.6 Nathan Markham MD Diabetes mellitus, type I, with hypoglycemia ICD-250.81 Inactive Ang Markham MD AMENORRHEA ICD-626.0 Inactive Eri Borges MD PhD oil heaterman use 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 ICD-V58.67 Nathan aMrkham MD Abdominal pain ICD-789.00 Nathan Markham MD Hematochezia ICD-578.1 Nathan Markham MD Nausea ICD-787.02 Nathan Markham MD 06/26 Otitis externa, acute, left ICD-380.12 Nathan Markham MD Medication List Medication Instructions Start Date Stop Date Generic Name NDC Status Provider Patient Instruction LEVAQUIN 500 MG TABS 1 daily for infection LEVOFLOXACIN 98088675128 Active Shreya Caroline FUNCTIONAL TESTER TYPEWRITERS Active GEMFIBROZIL 600 MG TABS 1 po BID GEMFIBROZIL 01294528916 Active Ang Markham MD Active CORTISPORIN 3.5-61673-1 SOLN 4gtts in affected ear QID x 7 days [id number] 47444321543 No Longer Active Ang Markham MD Active TRESIBA FLEXTOUCH 200 UNIT/ML SC SOPN Take 70 units daily at mid-night to 1 am. INSULIN DEGLUDEC 71160317527 Active Celestine PEARCE Active LEVEMIR FLEXTOUCH 100 UNIT/ML SC SOPN 35 units SC at 12-1pm, 35 units 12-1am INSULIN DETEMIR 81258552460 No Longer Active Celestine PEARCE Active REGLAN 10 MG TAB 0.5 po TID 30min prior to meals METOCLOPRAMIDE HCL 48724049720 Active Ang Markham MD Active ZANTAC 150 MG TAB 1 po BID RANITIDINE HCL 20988883451 Active Ang Markham MD Active DOXEPIN HCL 10 MG CAP 1 tablet nightly for the itch DOXEPIN HCL 58309979031 Active Ang Markham MD Active COLACE 100 MG CAP 1 po daily DOCUSATE SODIUM 13883645897 Active Gabriel Hunt DO Active NOVOLOG FLEXPEN 100 UNIT/ML SOPN Take 20 units TID with meals, plus 2u/50 for blood sugars above 150. Ratio vs. Carbs INSULIN ASPART 99203038262 Active Gabriel Hunt DO Active BD PEN NEEDLE DINESH U/F 32G X 4 MM MISC 5 a day INSULIN PEN NEEDLE 21358813272 Active Celestine PEARCE Active EMBRACE BLOOD GLUCOSE TEST STRP Test blood sugars 4 times daily and PRN 08/05 GLUCOSE BLOOD 09311519019 No Longer Active Celestine Sierraglari BLUEPRINTING AND PHOTOCOPY SUPERVISOR Active TRUEPLUS LANCETS 30G MISC 4 a day LANCETS 44592531721 Active Celestine Hoganari BLUEPRINTING AND PHOTOCOPY SUPERVISOR Active TRUETEST TEST STRP check blood sugars 4x/day GLUCOSE BLOOD 29826742964 Active Celestine Sierraglari BLUEPRINTING AND PHOTOCOPY SUPERVISOR Active TRUERESULT BLOOD GLUCOSE W/DEVICE KIT check blood sugars 4x a day BLOOD GLUCOSE MONITORING SUPPL 14669206566 Active Celestine Sierraglari BLUEPRINTING AND PHOTOCOPY SUPERVISOR Active LISINOPRIL 5 MG TABS 1 po qd LISINOPRIL 45719429256 Active Ang Markham MD Active PAXIL 20 MG TAB 1 tablet by mouth daily PAROXETINE HCL 20004420102 Active Ang Markham MD Active GENTAMICIN SULFATE 0.1 % EXT OINT Apply to open sores once a day. GENTAMICIN SULFATE 45750925283 No Longer Active Ang Markham MD Active ZOLPIDEM TARTRATE 10 MG TABS 1 po qHS PRN Insomnia ZOLPIDEM TARTRATE 44445979869 Active Ang Markham MD Active BACTRIM DS 800-160 MG TAB 1 tab by mouth twice daily TRIMETHOPRIM-SULFAMETHOXAZOLE 32657622736 No Longer Active Gloriajuliette Goveaharlan FUNCTIONAL TESTER TYPEWRITERS Active LEVEMIR FLEXPEN 100 UNIT/ML SOLN 40 units SC at bedtime INSULIN DETEMIR No Longer Active Susan Adan RMA Active INSUPEN ULTRAFIN 31G X 6 MM MISC Use with insulin qid. DX: E11.9 INSULIN PEN NEEDLE 87906752671 Active Ang Markham MD Active ZOLOFT 100 MG TAB 1 po qHS SERTRALINE HCL 60852035291 No Longer Active Ang Markham MD Active MELOXICAM 15 MG TABS 1 po qd PRN Knee Pain MELOXICAM 60189326417 No Longer Active Ang Markham MD Active LIPITOR 40 MG TAB 1 po qHS ATORVASTATIN CALCIUM 48603363012 Active Ang Markham MD Active METFORMIN HCL 1000 MG TABS 1 tablet by mouth twice daily METFORMIN HCL 47670509877 Active Ang Markham MD Active CYCLOBENZAPRINE HCL 5 MG TABS 1 po qHS PRN Muscle pain CYCLOBENZAPRINE HCL 93958359828 Active Ang Markham MD Active COLACE 100 MG CAP 1 po BID PRN Constipation DOCUSATE SODIUM 53240693567 No Longer Active Ang Markham MD Active HYDROXYZINE HCL 25 MG TAB 1 TID PRN nerves HYDROXYZINE HCL 78855387957 Active Ang Markham MD Active IBUPROFEN 800 MG TABS 1 tab every 8 hours as needed for pain 2013 IBUPROFEN 17726675227 No Longer Active Ang Markham MD Active NITROFURANTOIN MACROCRYSTAL 100 MG CAPS 1 capsule PO bid x 7 days NITROFURANTOIN MACROCRYSTAL 53804430566 No Longer Active Ang Markham MD Active DIFLUCAN 150 MG TAB 1 qODay x 2 doses FLUCONAZOLE 35856378257 No Longer Active Jillpiedad Nguyenl DAYO Active CEFTIN 500 MG TAB 1 tablet by mouth twice daily for 7 days 07/24 CEFUROXIME AXETIL 54094748679 No Longer Active Anthony CARBONE Active ZOLOFT 50 MG TAB 1 tablet by mouth daily SERTRALINE HCL 47272800696 No Longer Active Anthony CARBONE Active ANUSOL-HC 2.5 % CREAM apply as needed HYDROCORTISONE (RECTAL) 29941131217 No Longer Active Anthony CARBONE Active COLACE 100 MG CAP 1 tab PO BID DOCUSATE SODIUM 93826743165 No Longer Active Anthony CARBONE Active TRINESSA (28) 0.18/0.215/0.25 MG-35 MCG TABS 1 po qd as directed NORGESTIM-ETH ESTRAD TRIPHASIC 80245671126 No Longer Active Anthony CARBONE Active [facility] MELATONIN 5 MG TABS 1-2 po qHS PRN Insomnia MELATONIN 74273699271 No Longer Active Anthony CARBONE Active ACYCLOVIR 400 MG TABS ACYCLOVIR 61150116839 No Longer Active Ang Markham MD Active HYDROXYZINE HCL 25 MG TABS 1 tab PO tid PRN itching HYDROXYZINE HCL 28601155109 No Longer Active Ang Markham MD Active DIFLUCAN 150 MG TAB 1 qODay x 2 doses FLUCONAZOLE 55384165319 No Longer Active Jillina Frazell FUNCTIONAL TESTER TYPEWRITERS Active ACYCLOVIR 400 MG TABS 1 pill twice daily ACYCLOVIR 03632238328 No Longer Active Jillina Frazell FUNCTIONAL TESTER TYPEWRITERS Active AZITHROMYCIN 250 MG TABS 2 po qd x 1 day, then 1 po qd x 4 days AZITHROMYCIN 36607589183 No Longer Active Eri Borges MD PhD Active AZITHROMYCIN 250 MG TABS take 2 po day 1 then take1 po days 2-5 AZITHROMYCIN 74669789418 No Longer Active Octaviano CARBONE Active ACYCLOVIR 400 MG TABS 1 po qd ACYCLOVIR 98789533256 No Longer Active Ang Markham MD Active PROZAC 40 MG CAPS 1 cap by mouth at bedtime FLUOXETINE HCL 43116622524 No Longer Active Ang Markham MD Active HYDROXYZINE HCL 25 MG TABS 1 tab PO tid PRN itching HYDROXYZINE HCL 25 MG TABS 277645 HYDROXYZINE HCL Inactive [facility] MELATONIN 5 MG TABS 1-2 po qHS PRN Insomnia [facility] MELATONIN 5 MG TABS 985325 MELATONIN Inactive TRINESSA (28) 0.18/0.215/0.25 MG-35 MCG TABS 1 po qd as directed TRINESSA (28) 0.18/0.215/0.25 MG-35 MCG TABS 240971 NORGESTIM-ETH ESTRAD TRIPHASIC Inactive COLACE 100 MG CAP 1 tab PO BID COLACE 100 MG CAP 6810042 DOCUSATE SODIUM Inactive ANUSOL-HC 2.5 % CREAM apply as needed ANUSOL-HC 2.5 % CREAM 870846 HYDROCORTISONE (RECTAL) Inactive ZOLOFT 50 MG TAB 1 tablet by mouth daily ZOLOFT 50 MG TAB 787735 SERTRALINE HCL Inactive CEFTIN 500 MG TAB 1 tablet by mouth twice daily for 7 days 07/24 CEFTIN 500 MG TAB 991557 CEFUROXIME AXETIL Inactive NITROFURANTOIN MACROCRYSTAL 100 MG CAPS 1 capsule PO bid x 7 days NITROFURANTOIN MACROCRYSTAL 100 MG CAPS 0025766 NITROFURANTOIN MACROCRYSTAL Inactive IBUPROFEN 800 MG TABS 1 tab every 8 hours as needed for pain 2013 IBUPROFEN 800 MG TABS 467621 IBUPROFEN Inactive COLACE 100 MG CAP 1 po BID PRN Constipation COLACE 100 MG CAP 3288331 DOCUSATE SODIUM Inactive MELOXICAM 15 MG TABS 1 po qd PRN Knee Pain MELOXICAM 15 MG TABS 649385 MELOXICAM Inactive LEVEMIR FLEXPEN 100 UNIT/ML SOLN 40 units SC at bedtime LEVEMIR FLEXPEN 100 UNIT/ML SOLN INSULIN DETEMIR Inactive GENTAMICIN SULFATE 0.1 % EXT OINT Apply to open sores once a day. GENTAMICIN SULFATE 0.1 % EXT OINT 321201 GENTAMICIN SULFATE Inactive EMBRACE BLOOD GLUCOSE TEST STRP Test blood sugars 4 times daily and PRN 08/05 EMBRACE BLOOD GLUCOSE TEST STRP GLUCOSE BLOOD Inactive LEVEMIR FLEXTOUCH 100 UNIT/ML SC SOPN 35 units SC at 12-1pm, 35 units 12-1am LEVEMIR FLEXTOUCH 100 UNIT/ML SC SOPN INSULIN DETEMIR Inactive CORTISPORIN 3.5-85274-6 SOLN 4gtts in affected ear QID x 7 days CORTISPORIN 3.5-72936-4 [facility] 362210 [id number]-[id number] Inactive ACYCLOVIR 400 MG TABS 1 po qd ACYCLOVIR 400 MG TABS 19720928 ACYCLOVIR Inactive AZITHROMYCIN 250 MG TABS take 2 po day 1 then take1 po days 2-5 AZITHROMYCIN 250 MG TABS 0798505 AZITHROMYCIN Inactive AZITHROMYCIN 250 MG TABS 2 po qd x 1 day, then 1 po qd x 4 days AZITHROMYCIN 250 MG TABS 5228836 AZITHROMYCIN Inactive ACYCLOVIR 400 MG TABS 1 pill twice daily ACYCLOVIR 400 MG TABS 19720928 ACYCLOVIR Inactive DIFLUCAN 150 MG TAB 1 qODay x 2 doses DIFLUCAN 150 MG TAB 19760606 FLUCONAZOLE Inactive ACYCLOVIR 400 MG TABS ACYCLOVIR 400 MG TABS 19720928 ACYCLOVIR Inactive DIFLUCAN 150 MG TAB 1 qODay x 2 doses DIFLUCAN 150 MG TAB 803396 FLUCONAZOLE Inactive BACTRIM DS 800-160 MG TAB 1 tab by mouth twice daily BACTRIM DS 800-160 MG TAB 034739 TRIMETHOPRIM-SULFAMETHOXAZOLE Inactive Advance Directives Directive Description Start [...] 0.30 mg/dL 0.00-1.00 cholesterol, serum 221 mg/dL 921-184 9355/10/12 triglyceride, serum, fasting 590 mg/dL 30-200 HDL [...] dipstick Negative Negative sodium, serum 133 mmol/L 979-273 1855/06/03 carbon dioxide, venous blood 33.4 mmol/L 21.0-32.0 [...] nitrite, urine, semiquantitative Negative Negative Lab Report: [facility] [...] mg/dL Encounters Code Encounter Date Provider Facility CPT-85979 Level 3 Est. Patient 15:02:19 CDT Shreya Velazquez [facility] CPT-15827 Level 3 Est. Patient 13:22:25 CDT Gabriel Hunt [facility] CPT-96003 Level 4 Est. Patient 16:02:22 CDT Ang Markham MD [facility] CPT-21771 Level 3 Est. [facility] 16:21:[facility] Level 3 Est. Patient 17:02:56 CDT Gabriel Hunt [facility] CPT-76085 Level 3 Est. Patient 14:46:22 CDT Da Romero [facility] CPT-28968 Level 4 Est. Patient 13:55:20 CDT Ang Markham MD [facility] CPT-04386 Level 4 Est. Patient 16:10:09 CDT Celestine Huerta [facility] CPT-22382 Level 3 Est. Patient 13:51:24 CDT Ang Markham MD [facility] CPT-79500 Level 3 Est. Patient 18:42:15 CDT Gabriel Hunt [facility] CPT-57144 Level 5 Est. Patient 14:40:14 [facility] CPT-66131 Level 4 Est. Patient 14:36:17 CDT Ang Markham MD [facility] CPT-27858 Level 3 Est. Patient 11:13:47 APPLICATION DEVELOPMENT DIRECTOR Ang Markham MD [facility] CPT-06529 Level 3 Est. Patient 11:59:20 APPLICATION DEVELOPMENT DIRECTOR Gloria Dunbar [facility] CPT-25873 Level 3 Est. Patient 17:32:37 APPLICATION DEVELOPMENT DIRECTOR Gloria Dunbar [facility] CPT-51117 Level 4 Est. Patient 16:39:07 CDT Ang Markham MD [facility] CPT-53628 Level 3 Est. Patient 16:35:50 CDT Ang Markham MD [facility] CPT-54202 Level 4 Est. Patient 13:53:06 APPLICATION DEVELOPMENT DIRECTOR Ang Markham MD [facility] CPT-76618 Level 3 Est. Patient 08:58:08 APPLICATION DEVELOPMENT DIRECTOR nAg Markham MD [facility] CPT-44511 Level 3 Est. Patient 18:48:29 CDT Anthony Whitfield [facility] CPT-13987 Level 3 Est. Patient 12:16:59 CDT Gabriel Hunt DO [facility] CPT-27034 Level 3 Est. Patient 18:57:15 CDT Anthony Whitfield [facility] CPT-86803 Level 3 Est. Patient 13:59:22 APPLICATION DEVELOPMENT DIRECTOR Ang Markham MD [facility] CPT-43723 Level 4 Est. Patient 10:36:08 APPLICATION DEVELOPMENT DIRECTOR Ang Markham MD [facility] CPT-09529 Level 3 Est. Patient 16:27:02 CDT Eri Borges MD PhD [facility] CPT-91198 Level 3 Est. Patient 10:36:43 CDT Octaviano Dempsey [facility] CPT-85055 Level 4 New Patient 08:58:06 CDT Ang Markham MD [facility] Procedures Code Procedure Name Date Entry Date Standard Description CPT-43706 LS spine comp w obliques - XRAY USE ONLY 15:34:48 CDT CPT-73218 Lipid - LAB USE ONLY 15:28:39 CDT CPT-52503 CMP - LAB USE ONLY 15:28:39 CDT CPT-98940 Venipuncture Draw Fee 15:28:39 CDT CPT-46148 Abd compl w upright - XRAY USE ONLY 14:09:39 CDT 02/28 CPT-55117 Venipuncture Draw Fee 12:25:15 CDT CPT-08228 Knee 3V 16:48:40 CDT CPT-OV Office Visit 16:27:13 CDT CPT-OV Office Visit 16:21:19 CDT CPT-19143 Sono pelvis non OB uterus ovaries cervix 09:37:28 CDT
--- OUTSIDE RECORDS SUMMARY | 2018-12-22 02:19 | XMS REPORT | Clinical Summary ---
Author Author Admin, E Organization [facility] Address Unknown [...] Other and unspecified hyperlipidemia Hematochezia 578.1 Active Jillina Fraankita AVIONICS REPAIR TECHNICIAN Blood in stool Nausea 787.02 Active Jillina Franayal AVIONICS REPAIR TECHNICIAN Nausea alone DEPRESSION ICD-311 Inactive Ang Markham [...] I, with hypoglycemia ICD-250.81 Nathan Markham MD alf use 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 ICD-V58.67 Nathan Markham MD Medication List Medication Instructions Start Date Stop Date Generic Name NDC Status Provider Patient Instruction LEVEMIR FLEXTOUCH 100 UNIT/ML SC SOPN 35 units SC at 12-1pm, 35 units 12-1am INSULIN DETEMIR 53745379051 Active Ang Markham MD Active DOXEPIN HCL 10 MG CAP 1 tablet nightly for the itch DOXEPIN HCL 13129609643 Active Gabriel Hunt DO Active COLACE 100 MG CAP 1 po daily DOCUSATE SODIUM 62875329406 Active Gabriel Hunt DO Active NOVOLOG FLEXPEN 100 UNIT/ML SOPN Take 20 units TID with meals, plus 2u/50 for blood sugars above 150. Ratio vs. Carbs INSULIN ASPART 32189369157 Active Gabriel Hunt DO Active BD PEN NEEDLE DINESH U/F 32G X 4 MM MISC 5 a day INSULIN PEN NEEDLE 88175808609 Active Celestine Huerta WAIST PLEATER Active EMBRACE BLOOD GLUCOSE TEST STRP Test blood sugars 4 times daily and PRN 08/05 GLUCOSE BLOOD 92137818655 No Longer Active Celestine Sierraglari WAIST PLEATER Active TRUEPLUS LANCETS 30G MISC 4 a day LANCETS 42116145489 Active Celestine Sierraglari WAIST PLEATER Active TRUETEST TEST STRP check blood sugars 4x/day GLUCOSE BLOOD 42307368723 Active Celestine Sierraglari WAIST PLEATER Active TRUERESULT BLOOD GLUCOSE W/DEVICE KIT check blood sugars 4x a day BLOOD GLUCOSE MONITORING SUPPL 25628653483 Active Celestine Sierraglari WAIST PLEATER Active LISINOPRIL 5 MG TABS 1 po qd LISINOPRIL 40233518935 Active Ang Markham MD Active PAXIL 20 MG TAB 1 tablet by mouth daily PAROXETINE HCL 52151772637 Active Ang Markham MD Active GENTAMICIN SULFATE 0.1 % EXT OINT Apply to open sores once a day. GENTAMICIN SULFATE 84385095603 No Longer Active Ang Markham MD Active ZOLPIDEM TARTRATE 10 MG TABS 1 po qHS PRN Insomnia ZOLPIDEM TARTRATE 63377015628 Active Ang Markham MD Active BACTRIM DS 800-160 MG TAB 1 tab by mouth twice daily TRIMETHOPRIM-SULFAMETHOXAZOLE 41301899366 No Longer Active Gloriajuliette Goveaharlan AVIONICS REPAIR TECHNICIAN Active LEVEMIR FLEXPEN 100 UNIT/ML SOLN 40 units SC at bedtime INSULIN DETEMIR No Longer Active Susan Adan RMA Active INSUPEN ULTRAFIN 31G X 6 MM MISC Use with insulin qid. DX: E11.9 INSULIN PEN NEEDLE 26833748302 Active Ang Markham MD Active ZOLOFT 100 MG TAB 1 po qHS SERTRALINE HCL 93819660350 No Longer Active Ang Markham MD Active MELOXICAM 15 MG TABS 1 po qd PRN Knee Pain MELOXICAM 93993069894 No Longer Active Ang Markham MD Active LIPITOR 40 MG TAB 1 po qHS ATORVASTATIN CALCIUM 13394658575 Active Ang Markham MD Active METFORMIN HCL 1000 MG TABS 1 tablet by mouth twice daily METFORMIN HCL 53555587553 Active Ang Markham MD Active CYCLOBENZAPRINE HCL 5 MG TABS 1 po qHS PRN Muscle pain CYCLOBENZAPRINE HCL 00765875817 Active Ang Markham MD Active COLACE 100 MG CAP 1 po BID PRN Constipation DOCUSATE SODIUM 07138969877 No Longer Active Ang Markham MD Active HYDROXYZINE HCL 25 MG TAB 1 TID PRN nerves HYDROXYZINE HCL 40962697331 Active Ang Markham MD Active IBUPROFEN 800 MG TABS 1 tab every 8 hours as needed for pain 2013 IBUPROFEN 39860881656 No Longer Active Ang Markham MD Active NITROFURANTOIN MACROCRYSTAL 100 MG CAPS 1 capsule PO bid x 7 days NITROFURANTOIN MACROCRYSTAL 61472605125 No Longer Active Ang Markham MD Active DIFLUCAN 150 MG TAB 1 qODay x 2 doses FLUCONAZOLE 99750637819 No Longer Active Jillpiedad Nguyenl DAYO Active CEFTIN 500 MG TAB 1 tablet by mouth twice daily for 7 days 07/24 CEFUROXIME AXETIL 77721890763 No Longer Active Anthony CARBONE Active ZOLOFT 50 MG TAB 1 tablet by mouth daily SERTRALINE HCL 14190493706 No Longer Active Anthony CARBONE Active ANUSOL-HC 2.5 % CREAM apply as needed HYDROCORTISONE (RECTAL) 90373960902 No Longer Active Anthony CARBONE Active COLACE 100 MG CAP 1 tab PO BID DOCUSATE SODIUM 39079479299 No Longer Active Anthony CARBONE Active TRINESSA (28) 0.18/0.215/0.25 MG-35 MCG TABS 1 po qd as directed NORGESTIM-ETH ESTRAD TRIPHASIC 66875924644 No Longer Active Anthony CARBONE Active [facility] MELATONIN 5 MG TABS 1-2 po qHS PRN Insomnia MELATONIN 35176100523 No Longer Active Anthony CARBONE Active ACYCLOVIR 400 MG TABS ACYCLOVIR 84396839946 No Longer Active Ang Markham MD Active HYDROXYZINE HCL 25 MG TABS 1 tab PO tid PRN itching HYDROXYZINE HCL 38255667589 No Longer Active Ang Markham MD Active DIFLUCAN 150 MG TAB 1 qODay x 2 doses FLUCONAZOLE 71934271085 No Longer Active Jillina Frazell AVIONICS REPAIR TECHNICIAN Active ACYCLOVIR 400 MG TABS 1 pill twice daily ACYCLOVIR 30984403037 No Longer Active Jillina Frazell AVIONICS REPAIR TECHNICIAN Active AZITHROMYCIN 250 MG TABS 2 po qd x 1 day, then 1 po qd x 4 days AZITHROMYCIN 78356586237 No Longer Active Eri Borges MD PhD Active AZITHROMYCIN 250 MG TABS take 2 po day 1 then take1 po days 2-5 AZITHROMYCIN 37866291788 No Longer Active Octaviano CARBONE Active ACYCLOVIR 400 MG TABS 1 po qd ACYCLOVIR 59373886840 No Longer Active Ang Markham MD Active PROZAC 40 MG CAPS 1 cap by mouth at bedtime FLUOXETINE HCL 82375497956 No Longer Active Ang Markham MD Active HYDROXYZINE HCL 25 MG TABS 1 tab PO tid PRN itching HYDROXYZINE HCL 25 MG TABS 015398 HYDROXYZINE HCL Inactive [facility] MELATONIN 5 MG TABS 1-2 po qHS PRN Insomnia [facility] MELATONIN 5 MG TABS 617890 MELATONIN Inactive TRINESSA (28) 0.18/0.215/0.25 MG-35 MCG TABS 1 po qd as directed TRINESSA (28) 0.18/0.215/0.25 MG-35 MCG TABS 149961 NORGESTIM-ETH ESTRAD TRIPHASIC Inactive COLACE 100 MG CAP 1 tab PO BID COLACE 100 MG CAP 3866556 DOCUSATE SODIUM Inactive ANUSOL-HC 2.5 % CREAM apply as needed ANUSOL-HC 2.5 % CREAM 991737 HYDROCORTISONE (RECTAL) Inactive ZOLOFT 50 MG TAB 1 tablet by mouth daily ZOLOFT 50 MG TAB 179871 SERTRALINE HCL Inactive CEFTIN 500 MG TAB 1 tablet by mouth twice daily for 7 days 07/24 CEFTIN 500 MG TAB 613657 CEFUROXIME AXETIL Inactive NITROFURANTOIN MACROCRYSTAL 100 MG CAPS 1 capsule PO bid x 7 days NITROFURANTOIN MACROCRYSTAL 100 MG CAPS 3874683 NITROFURANTOIN MACROCRYSTAL Inactive IBUPROFEN 800 MG TABS 1 tab every 8 hours as needed for pain 2013 IBUPROFEN 800 MG TABS 510484 IBUPROFEN Inactive COLACE 100 MG CAP 1 po BID PRN Constipation COLACE 100 MG CAP 0513585 DOCUSATE SODIUM Inactive MELOXICAM 15 MG TABS 1 po qd PRN Knee Pain MELOXICAM 15 MG TABS 074222 MELOXICAM Inactive LEVEMIR FLEXPEN 100 UNIT/ML SOLN 40 units SC at bedtime LEVEMIR FLEXPEN 100 UNIT/ML SOLN INSULIN DETEMIR Inactive GENTAMICIN SULFATE 0.1 % EXT OINT Apply to open sores once a day. GENTAMICIN SULFATE 0.1 % EXT OINT 156066 GENTAMICIN SULFATE Inactive EMBRACE BLOOD GLUCOSE TEST STRP Test blood sugars 4 times daily and PRN 08/05 EMBRACE BLOOD GLUCOSE TEST STRP GLUCOSE BLOOD Inactive ACYCLOVIR 400 MG TABS 1 po qd ACYCLOVIR 400 MG TABS 077679 ACYCLOVIR Inactive AZITHROMYCIN 250 MG TABS take 2 po day 1 then take1 po days 2-5 AZITHROMYCIN 250 MG TABS 4209873 AZITHROMYCIN Inactive AZITHROMYCIN 250 MG TABS 2 po qd x 1 day, then 1 po qd x 4 days AZITHROMYCIN 250 MG TABS 0905443 AZITHROMYCIN Inactive ACYCLOVIR 400 MG TABS 1 [...] twice daily BACTRIM DS 800-160 MG TAB 978666 TRIMETHOPRIM-SULFAMETHOXAZOLE Inactive Advance Directives Directive Description Start [...] HGBA1C - Chemistry sodium, serum 134 mmol/L 052-234 2575/03/16 carbon dioxide, venous blood 34.5 mmol/L 21.0-32.0 potassium, serum 4.6 mmol/L 3.5-5.2 chloride, serum 93 mmol/L 98-107 blood glucose 408 mg/dL 65-110 urea nitrogen, blood 3 mg/dL 7-18 creatinine, serum 0.58 mg/dL 0.55-1.30 alanine aminotransferase (SGPT), serum 11 U/L 12-78 aspartate aminotransferase (SGOT), serum 8 U/L 15-37 calcium, serum 9.2 mg/dL 8.5-10.1 bilirubin, serum, total 0.30 mg/dL 0.00-1.00 cholesterol, serum 195 mg/dL 073-864 7273/03/16 triglyceride, serum, fasting 138 mg/dL 30-200 HDL [...] Panel - Chemistry sodium, serum 133 mmol/L 594-882 4579/06/03 carbon dioxide, venous blood 33.4 mmol/L 21.0-32.0 [...] pH, urine, semiquantitative 5.5 5.0-8.5 Lab Report: [facility] - Chemistry human chorionic gonadotropin, urine, qualitative [...] Yes Encounters Code Encounter Date Provider Facility CPT-57263 Level 3 Est. Patient 14:46:22 CDT Da Romero APRN [facility] CPT-95568 Level 4 Est. Patient 13:55:20 CDT Ang Markham MD [facility] CPT-96469 Level 4 Est. Patient 16:10:09 CDT Celestine PEARCE [facility] CPT-73448 Level 3 Est. Patient 13:51:24 CDT Ang Markham MD [facility] CPT-44253 Level 3 Est. Patient 18:42:15 CDT Gabriel Hunt [facility] CPT-02637 Level 5 Est. Patient 14:40:14 CDT Gagestephensonia Hoganisrael PEARCE [facility] CPT-39630 Level 4 Est. Patient 14:36:17 CDT Ang Markham MD [facility] CPT-18428 Level 3 Est. Patient 11:13:47 SURVEY RESEARCH TEACHER Ang Markham MD [facility] CPT-54854 Level 3 Est. Patient 11:59:20 SURVEY RESEARCH TEACHER Gloria Dunbar [facility] CPT-42521 Level 3 Est. Patient 17:32:37 SURVEY RESEARCH TEACHER Gloria Dunbar [facility] CPT-38277 Level 4 Est. Patient 16:39:07 CDT Ang Markham MD [facility] CPT-85910 Level 3 Est. Patient 16:35:50 CDT Ang Markham MD [facility] CPT-83196 Level 4 Est. Patient 13:53:06 SURVEY RESEARCH TEACHER Ang Markham MD [facility] CPT-28026 Level 3 Est. Patient 08:58:08 SURVEY RESEARCH TEACHER Ang Markham MD [facility] CPT-37485 Level 3 Est. Patient 18:48:29 CDT Anthony Whitfield [facility] CPT-63227 Level 3 Est. Patient 12:16:59 CDT Gabriel Hunt DO [facility] CPT-44743 Level 3 Est. Patient 18:57:15 CDT Anthony Whitfield [facility] CPT-87719 Level 3 Est. Patient 13:59:22 SURVEY RESEARCH TEACHER Ang Markham MD [facility] CPT-99729 Level 4 Est. Patient 10:36:08 SURVEY RESEARCH TEACHER Ang Markham MD [facility] CPT-46600 Level 3 Est. Patient 16:27:02 CDT Eri Borges MD PhD [facility] CPT-34604 Level 3 Est. Patient 10:36:43 CDT Octaviano CARBONE [facility] CPT-43016 Level 4 New Patient 08:58:06 CDT Ang Markham MD [facility] Procedures Code Procedure Name Date Entry Date Standard Description CPT-94095 Abd compl w upright - XRAY USE ONLY 14:09:39 CDT 02/28 CPT-25874 Venipuncture Draw Fee 12:25:15 CDT CPT-28893 Knee 3V 16:48:40 CDT CPT-OV Office Visit 16:27:13 CDT CPT-OV Office Visit 16:21:19 CDT CPT-89446 Sono pelvis non OB uterus ovaries cervix 09:37:28 CDT
--- OUTSIDE RECORDS SUMMARY | 2018-12-22 02:20 | XMS REPORT | Clinical Summary ---
Author Author Admin, QIE Organization [employer] Address Unknown Phone Unavailable Allergies, Adverse [...] 1 po BID PRN Constipation DOCUSATE SODIUM 17266062417 Active Ang Markham MD Active PAXIL 20 MG TAB 1 tablet by mouth daily PAROXETINE HCL 09831528423 Active Ang Markham MD Active GENTAMICIN SULFATE 0.1 % EXT OINT Apply to open sores once a day. GENTAMICIN SULFATE 64189671043 No Longer Active Ang Markham MD Active ZOLPIDEM TARTRATE 10 MG TABS 1 po qHS PRN Insomnia ZOLPIDEM TARTRATE 36639826849 Active Ang Markham MD Active BACTRIM DS 800-160 MG TAB 1 tab by mouth twice daily TRIMETHOPRIM-SULFAMETHOXAZOLE 06571987202 No Longer Active Gloria Dunbar NICKEL PLANT OPERATOR Active LEVEMIR FLEXTOUCH 100 UNIT/ML SC SOPN 40 units SC nightly INSULIN DETEMIR 71718499912 Active Ang Markham MD Active LEVEMIR FLEXPEN 100 UNIT/ML SOLN 40 units SC at bedtime INSULIN DETEMIR No Longer Active Susan Arellano RMA Active INSUPEN ULTRAFIN 31G X 6 MM MISC Use with insulin qid. DX: E11.9 INSULIN PEN NEEDLE 48517856594 Active Ang Markham MD Active ZOLOFT 100 MG TAB 1 po qHS SERTRALINE HCL 04444919658 No Longer Active Ang Markham MD Active MELOXICAM 15 MG TABS 1 po qd PRN Knee Pain MELOXICAM 34620525936 No Longer Active Ang Markham MD Active LIPITOR 40 MG TAB 1 po qHS ATORVASTATIN CALCIUM 72558339455 Active Ang Markham MD Active METFORMIN HCL 1000 MG TABS 1 tablet by mouth twice daily METFORMIN HCL 84357504925 Active Ang Markham MD Active CYCLOBENZAPRINE HCL 5 MG TABS 1 po qHS PRN Muscle pain CYCLOBENZAPRINE HCL 68944445022 Active Ang Markham MD Active COLACE 100 MG CAP 1 po BID PRN Constipation DOCUSATE SODIUM 38758066421 No Longer Active Ang Markham MD Active HYDROXYZINE HCL 25 MG TAB 1 TID PRN nerves HYDROXYZINE HCL 54739884438 Active Ang Markham MD Active IBUPROFEN 800 MG TABS 1 tab every 8 hours as needed for pain 2013 IBUPROFEN 04260038807 No Longer Active Ang Markham MD Active NITROFURANTOIN MACROCRYSTAL 100 MG CAPS 1 capsule PO bid x 7 days NITROFURANTOIN MACROCRYSTAL 05638469734 No Longer Active Ang Markham MD Active DIFLUCAN 150 MG TAB 1 qODay x 2 doses FLUCONAZOLE 08070548025 No Longer Active Da Romero NICKEL PLANT OPERATOR Active CEFTIN 500 MG TAB 1 tablet by mouth twice daily for 7 days 07/24 CEFUROXIME AXETIL 61522682736 No Longer Active Anthony CARBONE Active ZOLOFT 50 MG TAB 1 tablet by mouth daily SERTRALINE HCL 90996685831 No Longer Active Anthony CARBONE Active ANUSOL-HC 2.5 % CREAM apply as needed HYDROCORTISONE (RECTAL) 91666825436 No Longer Active Anthony CARBONE Active COLACE 100 MG CAP 1 tab PO BID DOCUSATE SODIUM 52594994376 No Longer Active Anthony CARBONE Active TRINESSA (28) 0.18/0.215/0.25 MG-35 MCG TABS 1 po qd as directed NORGESTIM-ETH ESTRAD TRIPHASIC 91334404552 No Longer Active Anthony CARBONE Active [facility] MELATONIN 5 MG TABS 1-2 po qHS PRN Insomnia MELATONIN 46375576085 No Longer Active Anthony CARBONE Active NOVOLOG FLEXPEN 100 UNIT/ML SOPN Take 18 units TID with meals INSULIN ASPART 80908402486 Active Codey Hdez MD Active ACYCLOVIR 400 MG TABS ACYCLOVIR 67025856880 No Longer Active Ang Markham MD Active EMBRACE BLOOD GLUCOSE TEST STRP Test blood sugars 4 times daily and PRN 08/05 GLUCOSE BLOOD 91797054735 Active Ang Markham MD Active HYDROXYZINE HCL 25 MG TABS 1 tab PO tid PRN itching HYDROXYZINE HCL 24966621734 No Longer Active Ang Markham MD Active DIFLUCAN 150 MG TAB 1 qODay x 2 doses FLUCONAZOLE 82303629104 No Longer Active Da Romero APRN Active ACYCLOVIR 400 MG TABS 1 pill twice daily ACYCLOVIR 68367066687 No Longer Active Jillina Nick OSHEA Active AZITHROMYCIN 250 MG TABS 2 po qd x 1 day, then 1 po qd x 4 days AZITHROMYCIN 49195574173 No Longer Active Eri Borges MD PhD Active AZITHROMYCIN 250 MG TABS take 2 po day 1 then take1 po days 2-5 AZITHROMYCIN 93122179580 No Longer Active Octaviano CARBONE Active ACYCLOVIR 400 MG TABS 1 po qd ACYCLOVIR 08025506531 No Longer Active Ang Markham MD Active PROZAC 40 MG CAPS 1 cap by mouth at bedtime FLUOXETINE HCL 46238289126 No Longer Active Ang Markham MD Active HYDROXYZINE HCL 25 MG TABS 1 tab PO tid PRN itching HYDROXYZINE HCL 25 MG TABS 582554 HYDROXYZINE HCL Inactive [facility] MELAT[facility]IN 5 MG TABS 1-2 po qHS PRN Insomnia [facility] MELATONIN 5 MG TABS 994466 MELATONIN Inactive TRINESSA (28) 0.18/0.215/0.25 MG-35 MCG TABS 1 po qd as directed TRINESSA (28) 0.18/0.215/0.25 MG-35 MCG TABS 075026 NORGESTIM-ETH ESTRAD TRIPHASIC Inactive COLACE 100 MG CAP 1 tab PO BID COLACE 100 MG CAP 9412519 DOCUSATE SODIUM Inactive ANUSOL-HC 2.5 % CREAM apply as needed ANUSOL-HC 2.5 % CREAM 187796 HYDROCORTISONE (RECTAL) Inactive ZOLOFT 50 MG TAB 1 tablet by mouth daily ZOLOFT 50 MG TAB 947901 SERTRALINE HCL Inactive CEFTIN 500 MG TAB 1 tablet by mouth twice daily for 7 days 07/24 CEFTIN 500 MG TAB 932266 CEFUROXIME AXETIL Inactive NITROFURANTOIN MACROCRYSTAL 100 MG CAPS 1 capsule PO bid x 7 days NITROFURANTOIN MACROCRYSTAL 100 MG CAPS 4115477 NITROFURANTOIN MACROCRYSTAL Inactive IBUPROFEN 800 MG TABS 1 tab every 8 hours as needed for pain 2013 IBUPROFEN 800 MG TABS 743575 IBUPROFEN Inactive COLACE 100 MG CAP 1 po BID PRN Constipation COLACE 100 MG CAP 6229036 DOCUSATE SODIUM Inactive MELOXICAM 15 MG TABS 1 po qd PRN Knee Pain MELOXICAM 15 MG TABS 013460 MELOXICAM Inactive LEVEMIR FLEXPEN 100 UNIT/ML SOLN 40 units SC at bedtime LEVEMIR FLEXPEN 100 UNIT/ML SOLN INSULIN DETEMIR Inactive GENTAMICIN SULFATE 0.1 % EXT OINT Apply to open sores once a day. GENTAMICIN SULFATE 0.1 % EXT OINT 271942 GENTAMICIN SULFATE Inactive ACYCLOVIR 400 MG TABS 1 po qd ACYCLOVIR 400 MG TABS 19720928 ACYCLOVIR Inactive AZITHROMYCIN 250 MG TABS take 2 po day 1 then take1 po days 2-5 AZITHROMYCIN 250 MG TABS 2039313 AZITHROMYCIN Inactive AZITHROMYCIN 250 MG TABS 2 po qd x 1 day, then 1 po qd x 4 days AZITHROMYCIN 250 MG TABS 0748787 AZITHROMYCIN Inactive ACYCLOVIR 400 MG TABS 1 pill twice daily ACYCLOVIR 400 MG TABS 730615 ACYCLOVIR Inactive DIFLUCAN 150 MG TAB 1 qODay x 2 doses DIFLUCAN 150 MG TAB 865413 FLUCONAZOLE Inactive ACYCLOVIR 400 MG TABS ACYCLOVIR 400 MG TABS 113986 ACYCLOVIR Inactive DIFLUCAN 150 MG TAB 1 qODay x 2 doses DIFLUCAN 150 MG TAB 114192 FLUCONAZOLE Inactive BACTRIM DS 800-160 MG TAB 1 tab by mouth twice daily BACTRIM DS 800-160 MG TAB 071143 TRIMETHOPRIM-SULFAMETHOXAZOLE Inactive Advance Directives Directive Description Start [...] 4.3-6.0 Encounters Code Encounter Date Provider Facility CPT-07174 Level 3 Est. Patient 11:13:47 WET PRESS TENDER Ang Markham MD [facility] CPT-51882 Level 3 Est. Patient 11:59:20 WET PRESS TENDER Gloria Dunbar [facility] CPT-67267 Level 3 Est. Patient 17:32:37 WET PRESS TENDER Gloria Dunbar [facility] CPT-39983 Level 4 Est. Patient 16:39:07 CDT Ang Markham MD [facility] CPT-75491 Level 3 Est. Patient 16:35:50 CDT Ang Markham MD [facility] CPT-23748 Level 4 Est. Patient 13:53:06 WET PRESS TENDER Ang Markham MD [facility] CPT-39897 Level 3 Est. Patient 08:58:08 WET PRESS TENDER Ang Markham MD [facility] CPT-51723 Level 3 Est. Patient 18:48:29 CDT Anthony [facility]field [facility] CPT-41504 Level 3 Est. Patient 12:16:59 CDT Gabriel Hunt DO [facility] CPT-64440 Level 3 Est. Patient 18:57:15 CDT [facility] CPT-01197 Level 3 Est. Patient 13:59:22 WET PRESS TENDER Ang Markham MD [facility] CPT-83904 Level 4 Est. Patient 10:36:08 WET PRESS TENDER Ang Markham MD [facility] CPT-80785 Level 3 Est. Patient 16:27:02 CDT Eri Borges MD PhD [facility] CPT-26391 Level 3 Est. Patient 10:36:43 CDT Octaviano Dem[facility] CPT-69158 Level 4 New Patient 08:58:06 CDT Ang Markham MD [facility] Procedures Code Procedure Name Date Entry Date Standard Description CPT-88952 Venipuncture Draw Fee 12:25:15 CDT CPT-37560 Knee 3V 16:48:40 CDT CPT-OV Office Visit 16:27:13 CDT CPT-OV Office Visit 16:21:19 CDT CPT-98640 Sono pelvis non OB uterus ovaries cervix 09:37:28 CDT
--- OUTSIDE RECORDS SUMMARY | 2018-12-22 02:21 | XMS REPORT | Clinical Summary ---
Author Author Admin, E Organization [facility] Address Unknown Phone Unavailable Allergies, Adverse Reactions, [...] Resolved Ang Markham MD Acute swimmers' ear detention use 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 V58.67 Active Celestine [...] 600 MG TABS 1 po BID GEMFIBROZIL 53786837664 Active Ang Markham MD Active CORTISPORIN 3.5-44329-6 SOLN 4gtts in affected ear QID x 7 days [id number] 83328505416 No Longer Active Ang Markham MD Active TRESIBA FLEXTOUCH 200 UNIT/ML SC SOPN Take 70 units daily at mid-night to 1 am. INSULIN DEGLUDEC 98859585342 Active Celestine Sierraglari ELECTRIC BLANKET PACKER Active LEVEMIR FLEXTOUCH 100 UNIT/ML SC SOPN 35 units SC at 12-1pm, 35 units 12-1am INSULIN DETEMIR 04088666945 No Longer Active Celestine PEARCE Active REGLAN 10 MG TAB 0.5 po TID 30min prior to meals METOCLOPRAMIDE HCL 05460735890 Active Ang Markham MD Active ZANTAC 150 MG TAB 1 po BID RANITIDINE HCL 62394891718 Active Ang Markham MD Active DOXEPIN HCL 10 MG CAP 1 tablet nightly for the itch DOXEPIN HCL 23452008669 Active Ang Markham MD Active COLACE 100 MG CAP 1 po daily DOCUSATE SODIUM 53365969949 Active Gabriel Hunt DO Active NOVOLOG FLEXPEN 100 UNIT/ML SOPN Take 20 units TID with meals, plus 2u/50 for blood sugars above 150. Ratio vs. Carbs INSULIN ASPART 75466866818 Active Gabriel Hunt DO Active BD PEN NEEDLE DINESH U/F 32G X 4 MM MISC 5 a day INSULIN PEN NEEDLE 40808409991 Active Malstepheneh Ziglari ELECTRIC BLANKET PACKER Active EMBRACE BLOOD GLUCOSE TEST STRP Test blood sugars 4 times daily and PRN 08/05 GLUCOSE BLOOD 78974375300 No Longer Active Malstepheneh Ziglari ELECTRIC BLANKET PACKER Active TRUEPLUS LANCETS 30G MISC 4 a day LANCETS 65649670211 Active Maliheh Ziglari ELECTRIC BLANKET PACKER Active TRUETEST TEST STRP check blood sugars 4x/day GLUCOSE BLOOD 04777492621 Active Maliheh Ziglari ELECTRIC BLANKET PACKER Active TRUERESULT BLOOD GLUCOSE W/DEVICE KIT check blood sugars 4x a day BLOOD GLUCOSE MONITORING SUPPL 32961138821 Active Celestine PEARCE Active LISINOPRIL 5 MG TABS 1 po qd LISINOPRIL 05312391435 Active Ang Markham MD Active PAXIL 20 MG TAB 1 tablet by mouth daily PAROXETINE HCL 36339742536 Active Ang Markham MD Active GENTAMICIN SULFATE 0.1 % EXT OINT Apply to open sores once a day. GENTAMICIN SULFATE 04762081622 No Longer Active Ang Markham MD Active ZOLPIDEM TARTRATE 10 MG TABS 1 po qHS PRN Insomnia ZOLPIDEM TARTRATE 12343283921 Active Ang Markham MD Active BACTRIM DS 800-160 MG TAB 1 tab by mouth twice daily TRIMETHOPRIM-SULFAMETHOXAZOLE 11960675303 No Longer Active Gloria Dunbar FOUNDATION COORDINATOR Active LEVEMIR FLEXPEN 100 UNIT/ML SOLN 40 units SC at bedtime INSULIN DETEMIR No Longer Active Susan Arellano RMA Active INSUPEN ULTRAFIN 31G X 6 MM MISC Use with insulin qid. DX: E11.9 INSULIN PEN NEEDLE 75996367253 Active Ang Markham MD Active ZOLOFT 100 MG TAB 1 po qHS SERTRALINE HCL 49978709909 No Longer Active Ang Markham MD Active MELOXICAM 15 MG TABS 1 po qd PRN Knee Pain MELOXICAM 37769035480 No Longer Active Ang Marhkam MD Active LIPITOR 40 MG TAB 1 po qHS ATORVASTATIN CALCIUM 91620147109 Active Ang Markham MD Active METFORMIN HCL 1000 MG TABS 1 tablet by mouth twice daily METFORMIN HCL 95654808987 Active Ang Markham MD Active CYCLOBENZAPRINE HCL 5 MG TABS 1 po qHS PRN Muscle pain CYCLOBENZAPRINE HCL 59482730699 Active Ang Markham MD Active COLACE 100 MG CAP 1 po BID PRN Constipation DOCUSATE SODIUM 00893397491 No Longer Active Ang Markham MD Active HYDROXYZINE HCL 25 MG TAB 1 TID PRN nerves HYDROXYZINE HCL 28350825516 Active Ang Markham MD Active IBUPROFEN 800 MG TABS 1 tab every 8 hours as needed for pain 2013 IBUPROFEN 88613318838 No Longer Active Ang Markham MD Active NITROFURANTOIN MACROCRYSTAL 100 MG CAPS 1 capsule PO bid x 7 days NITROFURANTOIN MACROCRYSTAL 75527507582 No Longer Active Ang Markham MD Active DIFLUCAN 150 MG TAB 1 qODay x 2 doses FLUCONAZOLE 62639210759 No Longer Active Jillpiedad Romero APRN Active CEFTIN 500 MG TAB 1 tablet by mouth twice daily for 7 days 07/24 CEFUROXIME AXETIL 55927647287 No Longer Active Anthony CARBONE Active ZOLOFT 50 MG TAB 1 tablet by mouth daily SERTRALINE HCL 42363636962 No Longer Active Anthony CARBONE Active ANUSOL-HC 2.5 % CREAM apply as needed HYDROCORTISONE (RECTAL) 47456851422 No Longer Active Anthony CARBONE Active COLACE 100 MG CAP 1 tab PO BID DOCUSATE SODIUM 08252131414 No Longer Active Anthony CARBONE Active TRINESSA (28) 0.18/0.215/0.25 MG-35 MCG TABS 1 po qd as directed NORGESTIM-ETH ESTRAD TRIPHASIC 50477973491 No Longer Active Anthony CARBONE Active [facility] MELATONIN 5 MG TABS 1-2 po qHS PRN Insomnia MELATONIN 83278903901 No Longer Active Anthony CARBONE Active ACYCLOVIR 400 MG TABS ACYCLOVIR 95438996603 No Longer Active Ang Markham MD Active HYDROXYZINE HCL 25 MG TABS 1 tab PO tid PRN itching HYDROXYZINE HCL 60549979228 No Longer Active Ang Markham MD Active DIFLUCAN 150 MG TAB 1 qODay x 2 doses FLUCONAZOLE 22048334935 No Longer Active Da Romero APRN Active ACYCLOVIR 400 MG TABS 1 pill twice daily ACYCLOVIR 53043618512 No Longer Active Da Romero APRN Active AZITHROMYCIN 250 MG TABS 2 po qd x 1 day, then 1 po qd x 4 days AZITHROMYCIN 86192565803 No Longer Active Eri Borges MD PhD Active AZITHROMYCIN 250 MG TABS take 2 po day 1 then take1 po days 2-5 AZITHROMYCIN 02705232576 No Longer Active Octaviano CARBONE Active ACYCLOVIR 400 MG TABS 1 po qd ACYCLOVIR 50652238095 No Longer Active Ang Markham MD Active PROZAC 40 MG CAPS 1 cap by mouth at bedtime FLUOXETINE HCL 46196565852 No Longer Active Ang Markham MD Active HYDROXYZINE HCL 25 MG TABS 1 tab PO tid PRN itching HYDROXYZINE HCL 25 MG TABS 062705 HYDROXYZINE HCL Inactive [facility] MELATONIN 5 MG TABS 1-2 po qHS PRN Insomnia [facility] MELATONIN 5 MG TABS 199350 MELATONIN Inactive TRINESSA (28) 0.18/0.215/0.25 MG-35 MCG TABS 1 po qd as directed TRINESSA (28) 0.18/0.215/0.25 MG-35 MCG TABS 547280 NORGESTIM-ETH ESTRAD TRIPHASIC Inactive COLACE 100 MG CAP 1 tab PO BID COLACE 100 MG CAP 9981924 DOCUSATE SODIUM Inactive ANUSOL-HC 2.5 % CREAM apply as needed ANUSOL-HC 2.5 % CREAM 617303 HYDROCORTISONE (RECTAL) Inactive ZOLOFT 50 MG TAB 1 tablet by mouth daily ZOLOFT 50 MG TAB 164682 SERTRALINE HCL Inactive CEFTIN 500 MG TAB 1 tablet by mouth twice daily for 7 days 07/24 CEFTIN 500 MG TAB 454390 CEFUROXIME AXETIL Inactive NITROFURANTOIN MACROCRYSTAL 100 MG CAPS 1 capsule PO bid x 7 days NITROFURANTOIN MACROCRYSTAL 100 MG CAPS 4344823 NITROFURANTOIN MACROCRYSTAL Inactive IBUPROFEN 800 MG TABS 1 tab every 8 hours as needed for pain 2013 IBUPROFEN 800 MG TABS 851353 IBUPROFEN Inactive COLACE 100 MG CAP 1 po BID PRN Constipation COLACE 100 MG CAP 2792722 DOCUSATE SODIUM Inactive MELOXICAM 15 MG TABS 1 po qd PRN Knee Pain MELOXICAM 15 MG TABS 107431 MELOXICAM Inactive LEVEMIR FLEXPEN 100 UNIT/ML SOLN 40 units SC at bedtime LEVEMIR FLEXPEN 100 UNIT/ML SOLN INSULIN DETEMIR Inactive GENTAMICIN SULFATE 0.1 % EXT OINT Apply to open sores once a day. GENTAMICIN SULFATE 0.1 % EXT OINT 703384 GENTAMICIN SULFATE Inactive EMBRACE BLOOD GLUCOSE TEST STRP Test blood sugars 4 times daily and PRN 08/05 EMBRACE BLOOD GLUCOSE TEST STRP GLUCOSE BLOOD Inactive LEVEMIR FLEXTOUCH 100 UNIT/ML SC SOPN 35 units SC at 12-1pm, 35 units 12-1am LEVEMIR FLEXTOUCH 100 UNIT/ML SC SOPN INSULIN DETEMIR Inactive CORTISPORIN 3.5-83840-0 SOLN 4gtts in affected ear QID x 7 days CORTISPORIN 3.5-21919-6 SOLN 639335 [id number] Inactive ACYCLOVIR 400 MG TABS 1 po qd ACYCLOVIR 400 MG TABS 899191 ACYCLOVIR Inactive AZITHROMYCIN 250 MG TABS take 2 po day 1 then take1 po days 2-5 AZITHROMYCIN 250 MG TABS 6574139 AZITHROMYCIN Inactive AZITHROMYCIN 250 MG TABS 2 po qd x 1 day, then 1 po qd x 4 days AZITHROMYCIN 250 MG TABS 7549082 AZITHROMYCIN Inactive ACYCLOVIR 400 MG TABS 1 [...] twice daily BACTRIM DS 800-160 MG TAB 385845 TRIMETHOPRIM-SULFAMETHOXAZOLE Inactive Advance Directives Directive Description Start [...] HGBA1C - Chemistry sodium, serum 134 mmol/L 850-709 6495/03/16 carbon dioxide, venous blood 34.5 mmol/L 21.0-32.0 potassium, serum 4.6 mmol/L 3.5-5.2 chloride, serum 93 mmol/L 98-107 blood glucose 408 mg/dL 65-110 urea nitrogen, blood 3 mg/dL 7-18 creatinine, serum 0.58 mg/dL 0.55-1.30 alanine aminotransferase (SGPT), serum 11 U/L 12-78 aspartate aminotransferase (SGOT), serum 8 U/L 15-37 calcium, serum 9.2 mg/dL 8.5-10.1 bilirubin, serum, total 0.30 mg/dL 0.00-1.00 cholesterol, serum 195 mg/dL 142-029 3554/03/16 triglyceride, serum, fasting 138 mg/dL 30-200 HDL [...] Panel - Chemistry sodium, serum 130 mmol/L 257-770 8061/10/12 carbon dioxide, venous blood 28.1 mmol/L 21.0-32.0 potassium, serum 3.9 mmol/L 3.5-5.2 chloride, serum 91 mmol/L 98-107 blood glucose 547 mg/dL 65-110 urea nitrogen, blood 3 mg/dL 7-18 creatinine, serum 0.78 mg/dL 0.55-1.30 alanine aminotransferase (SGPT), serum 11 U/L 12-78 aspartate aminotransferase (SGOT), serum 7 U/L 15-37 calcium, serum 8.8 mg/dL 8.5-10.1 bilirubin, serum, total 0.30 mg/dL 0.00-1.00 cholesterol, serum 221 mg/dL 644-898 9645/10/12 triglyceride, serum, fasting 590 mg/dL 30-200 HDL [...] Panel - Chemistry sodium, serum 133 mmol/L 945-948 1280/06/03 carbon dioxide, venous blood 33.4 mmol/L 21.0-32.0 [...] pH, urine, semiquantitative 5.5 5.0-8.5 Lab Report: [facility] [place] Chemistry human chorionic gonadotropin, urine, qualitative [...] mg/dL Encounters Code Encounter Date Provider Facility CPT-39431 Level 4 Est. Patient 16:02:22 CDT Ang Markham MD [facility] CPT-55343 Level 3 Est. Patient 16:21:23 CDT Celestine Huerta [facility] CPT-14401 Level 3 Est. Patient 17:02:56 CDT Gabriel Hunt [facility] CPT-82305 Level 3 Est. Patient 14:46:22 CDT Da Romero [facility] CPT-86236 Level 4 Est. Patient 13:55:20 CDT Ang Markham MD [facility] CPT-52531 Level 4 Est. Patient 16:10:09 CDT [facility] Level 3 Est. Patient 13:51:24 CDT Ang Markham MD [facility] CPT-90471 Level 3 Est. Patient 18:42:15 CDT Gabriel Hunt [facility] CPT-23119 Level 5 Est. Patient 14:40:14 CDT Celestine Huerta [facility] CPT-43937 Level 4 Est. Patient 14:36:17 CDT Ang Markham MD [facility] CPT-45631 Level 3 Est. Patient 11:13:47 DEVELOPMENT TECHNICIAN Ang Markham MD [facility] CPT-20290 Level 3 Est. Patient 11:59:20 DEVELOPMENT TECHNICIAN Gloria Dunbar [facility] CPT-05105 Level 3 Est. Patient 17:32:37 DEVELOPMENT TECHNICIAN Gloria Dunbar [facility] CPT-09925 Level 4 Est. Patient 16:39:07 CDT Ang Markham MD [facility] CPT-21393 Level 3 Est. Patient 16:35:50 CDT Ang Markham MD [facility] CPT-90771 Level 4 Est. Patient 13:53:06 DEVELOPMENT TECHNICIAN Ang Markham MD [facility] CPT-85159 Level 3 Est. Patient 08:58:08 DEVELOPMENT TECHNICIAN Ang Markham MD [facility] CPT-22166 Level 3 Est. Patient 18:48:29 CDT Anthony Whitfield [facility] CPT-10318 Level 3 Est. Patient 12:16:59 CDT Gabriel Hunt DO [facility] CPT-75250 Level 3 Est. Patient 18:57:15 CDT Anthony Whitfield [facility] CPT-13843 Level 3 Est. Patient 13:59:22 DEVELOPMENT TECHNICIAN Ang Markham MD [facility] CPT-53637 Level 4 Est. Patient 10:36:08 DEVELOPMENT TECHNICIAN Ang Markham MD [facility] CPT-70312 Level 3 Est. Patient 16:27:02 CDT Eri Borges MD PhD [facility] CPT-64393 Level 3 Est. Patient 10:36:43 CDT Kellyfaviola Roselyn [facility] CPT-29890 Level 4 New Patient 08:58:06 CDT Ang Markham MD [facility] Procedures Code Procedure Name Date Entry Date Standard Description CPT-62714 Abd compl w upright - XRAY USE ONLY 14:09:39 CDT 02/28 CPT-67161 Venipuncture Draw Fee 12:25:15 CDT CPT-76609 Knee 3V 16:48:40 CDT CPT-OV Office Visit 16:27:13 CDT CPT-OV Office Visit 16:21:19 CDT CPT-10691 Sono pelvis non OB uterus ovaries cervix 09:37:28 CDT
--- OUTSIDE RECORDS SUMMARY | 2018-12-22 02:22 | XMS REPORT | Clinical Summary ---
Author Author Admin, ALEXANDER Organization [facility] Address Unknown Phone Unavailable Allergies, [...] Generic Name NDC Status Provider Patient Instruction ZOLOFT 100 MG TAB 1 po qHS SERTRALINE HCL 22747498355 Active Ang Markham MD Active MELOXICAM 15 MG TABS 1 po qd PRN Knee Pain MELOXICAM 31817614124 No Longer Active Ang Markham MD Active LIPITOR 40 MG TAB 1 po qHS ATORVASTATIN CALCIUM 00521991356 Active Ang Markham MD Active METFORMIN HCL 1000 MG TABS 1 tablet by mouth twice daily METFORMIN HCL 57331185506 Active Ang Markham MD Active CYCLOBENZAPRINE HCL 5 MG TABS 1 po qHS PRN Muscle pain CYCLOBENZAPRINE HCL 07956621163 Active Ang Markham MD Active COLACE 100 MG CAP 1 po BID PRN Constipation DOCUSATE SODIUM 22218155856 No Longer Active Ang Markham MD Active HYDROXYZINE HCL 25 MG TAB 1 TID PRN nerves HYDROXYZINE HCL 75043313929 Active Ang Markham MD Active IBUPROFEN 800 MG TABS 1 tab every 8 hours as needed for pain 2013 IBUPROFEN 52202258901 No Longer Active Ang Markham MD Active NITROFURANTOIN MACROCRYSTAL 100 MG CAPS 1 capsule PO bid x 7 days NITROFURANTOIN MACROCRYSTAL 51263596418 No Longer Active Ang Markham MD Active LEVEMIR FLEXPEN 100 UNIT/ML SOLN 40 units SC at bedtime INSULIN DETEMIR 67628905820 Active Ang Markham MD Active DIFLUCAN 150 MG TAB 1 qODay x 2 doses FLUCONAZOLE 19080310857 No Longer Active Jillina Frazell CONTENT MANAGEMENT SPECIALIST Active CEFTIN 500 MG TAB 1 tablet by mouth twice daily for 7 days 07/24 CEFUROXIME AXETIL 12034194843 No Longer Active Anthony CARBONE Active ZOLPIDEM TARTRATE 10 MG TABS 1 tab PO at hs ZOLPIDEM TARTRATE 20762584076 Active Ang Markham MD Active ZOLOFT 50 MG TAB 1 tablet by mouth daily SERTRALINE HCL 66654321939 No Longer Active Anthony CARBONE Active ANUSOL-HC 2.5 % CREAM apply as needed HYDROCORTISONE (RECTAL) 33065867956 No Longer Active Anthony CARBONE Active COLACE 100 MG CAP 1 tab PO BID DOCUSATE SODIUM 43357246550 No Longer Active Anthony CARBONE Active TRINESSA (28) 0.18/0.215/0.25 MG-35 MCG TABS 1 po qd as directed NORGESTIM-ETH ESTRAD TRIPHASIC 87605430104 No Longer Active Anthony CARBONE Active [facility] MELATONIN 5 MG TABS 1-2 po qHS PRN Insomnia MELATONIN 33169766039 No Longer Active Anthony CARBONE Active NOVOLOG FLEXPEN 100 UNIT/ML SOPN Take 18 units TID with meals INSULIN ASPART 53737933963 Active Anthony CARBONE Active ACYCLOVIR 400 MG TABS ACYCLOVIR 30937423199 No Longer Active Ang Markham MD Active EMBRACE BLOOD GLUCOSE TEST STRP Test blood sugars 4 times daily and PRN 08/05 GLUCOSE BLOOD 56954785017 Active Ang Markham MD Active HYDROXYZINE HCL 25 MG TABS 1 tab PO tid PRN itching HYDROXYZINE HCL 16194571618 No Longer Active Ang Markham MD Active DIFLUCAN 150 MG TAB 1 qODay x 2 doses FLUCONAZOLE 24513571797 No Longer Active Jillpiedad Romero APRN Active ACYCLOVIR 400 MG TABS 1 pill twice daily ACYCLOVIR 52379018980 No Longer Active Jillina Frazell CONTENT MANAGEMENT SPECIALIST Active AZITHROMYCIN 250 MG TABS 2 po qd x 1 day, then 1 po qd x 4 days AZITHROMYCIN 17609662787 No Longer Active Eri Borges MD PhD Active AZITHROMYCIN 250 MG TABS take 2 po day 1 then take1 po days 2-5 AZITHROMYCIN 26870361553 No Longer Active Octaviano CARBONE Active ACYCLOVIR 400 MG TABS 1 po qd ACYCLOVIR 84385312874 No Longer Active Ang Markham MD Active PROZAC 40 MG CAPS 1 cap by mouth at bedtime FLUOXETINE HCL 65355832142 No Longer Active Ang Markham MD Active HYDROXYZINE HCL 25 MG TABS 1 tab PO tid PRN itching HYDROXYZINE HCL 25 MG TABS 044246 HYDROXYZINE HCL Inactive [facility] MELATONIN 5 MG TABS 1-2 po qHS PRN Insomnia [facility] MELATONIN 5 MG TABS 796650 MELATONIN Inactive TRINESSA (28) 0.18/0.215/0.25 MG-35 MCG TABS 1 po qd as directed TRINESSA (28) 0.18/0.215/0.25 MG-35 MCG TABS 132722 NORGESTIM-ETH ESTRAD TRIPHASIC Inactive COLACE 100 MG CAP 1 tab PO BID COLACE 100 MG CAP 8951710 DOCUSATE SODIUM Inactive ANUSOL-HC 2.5 % CREAM apply as needed ANUSOL-HC 2.5 % CREAM 427222 HYDROCORTISONE (RECTAL) Inactive ZOLOFT 50 MG TAB 1 tablet by mouth daily ZOLOFT 50 MG TAB 622319 SERTRALINE HCL Inactive CEFTIN 500 MG TAB 1 tablet by mouth twice daily for 7 days 07/24 CEFTIN 500 MG TAB 024301 CEFUROXIME AXETIL Inactive NITROFURANTOIN MACROCRYSTAL 100 MG CAPS 1 capsule PO bid x 7 days NITROFURANTOIN MACROCRYSTAL 100 MG CAPS 173208 NITROFURANTOIN MACROCRYSTAL Inactive IBUPROFEN 800 MG TABS 1 tab every 8 hours as needed for pain 2013 IBUPROFEN 800 MG TABS 101310 IBUPROFEN Inactive COLACE 100 MG CAP 1 po BID PRN Constipation COLACE 100 MG CAP 5934477 DOCUSATE SODIUM Inactive MELOXICAM 15 MG TABS 1 po qd PRN Knee Pain MELOXICAM 15 MG TABS 376003 MELOXICAM Inactive ACYCLOVIR 400 MG TABS 1 po qd ACYCLOVIR 400 MG TABS 965319 ACYCLOVIR Inactive AZITHROMYCIN 250 MG TABS take 2 po day 1 then take1 po days 2-5 AZITHROMYCIN 250 MG TABS 7336925 AZITHROMYCIN Inactive AZITHROMYCIN 250 MG TABS 2 po qd x 1 day, then 1 po qd x 4 days AZITHROMYCIN 250 MG TABS 3898921 AZITHROMYCIN Inactive ACYCLOVIR 400 MG TABS 1 pill twice daily ACYCLOVIR 400 MG TABS 19720928 ACYCLOVIR Inactive DIFLUCAN 150 MG TAB 1 qODay x 2 doses DIFLUCAN 150 MG TAB 649331 FLUCONAZOLE Inactive ACYCLOVIR 400 MG TABS ACYCLOVIR 400 MG TABS 177625 ACYCLOVIR Inactive DIFLUCAN 150 MG TAB 1 qODay x 2 doses DIFLUCAN 150 MG TAB 802828 FLUCONAZOLE Inactive Advance Directives Directive Description Start Date PERMISSION TO SHARE Vital Signs Date Name Value Unit Range Description blood pressure, diastolic - 8462-4 78 mm[Hg] BP arroyo blood pressure, systolic - 8480-6 118 mm[Hg] BP sys pulse rate E&M - 8867-4 116 /min Heart rate temperature E&M 99.2 [degF] Body temperature weight E&M - 3141-9 128.4 [lb_av] Weight Measured blood pressure, diastolic - 8462-4 81 mm[Hg] [...] Lab Report: CBC W/DIFF, Comp. Metabolic Panel, HGBA1C - Chemistry sodium, serum 131 mmol/L 067-129 8415/10/27 potassium, serum 4.8 mmol/L 3.5-5.2 chloride, serum [...] Lab Report: CBC W/DIFF, Comp. Metabolic Panel, HGBA1C - Hematology leukocyte count, blood 9.0 10^3/MM^3 [...] HGBA1C - Chemistry sodium, serum 139 mmol/L 001-478 4330/02/03 potassium, serum 4.4 mmol/L 3.5-5.2 chloride, serum 98 mmol/L 98-107 carbon dioxide, venous blood 31.5 mmol/L 21.0-32.0 blood glucose 304 mg/dL 65-110 urea nitrogen, blood 10 mg/dL 7-18 creatinine, serum 0.80 mg/dL 0.60-1.30 alanine aminotransferase (SGPT), serum 23 U/L 12-78 aspartate aminotransferase (SGOT), serum 16 U/L 15-37 calcium, serum 9.4 mg/dL 8.5-10.1 bilirubin, serum, total 0.20 mg/dL 0.00-1.00 cholesterol, serum 309 mg/dL 212-385 6034/02/03 triglyceride, serum, fasting 277 mg/dL 30-200 HDL [...] 273 10^3/MM^3 10*3/mm3 142-424 Lab Report: Chlamydia/GC APTIMA/[id number] - Lab chlamydia DNA probe NOT DETECTED NOT DETECTED Lab Report: Chlamydia/GC APTIMA/05131 - Microbiology Neisseria gonorrhoeae DNA probe NOT [...] Negative Encounters Code Encounter Date Provider Facility CPT-11570 Level 4 Est. Patient 16:39:07 CDT Ang Markham MD [facility] CPT-62569 Level 3 Est. Patient 16:35:50 CDT Ang Markham MD [facility] CPT-53200 Level 4 Est. Patient 13:53:06 NUTRITION MANAGER Ang Markham MD [facility] CPT-90873 Level 3 Est. Patient 08:58:08 NUTRITION MANAGER Ang Markham MD [facility] CPT-55967 Level 3 Est. Patient 18:48:29 CDT Anthony Whitfield [facility] CPT-61542 Level 3 Est. Patient 12:16:59 CDT Gabriel Hunt DO [facility] CPT-86107 Level 3 Est. Patient 18:57:15 CDT Anthony Whitfield [facility] CPT-90817 Level 3 Est. Patient 13:59:22 NUTRITION MANAGER Ang Markham MD [facility] CPT-28711 Level 4 Est. Patient 10:36:08 NUTRITION MANAGER Ang Markham MD [facility] CPT-36729 Level 3 Est. Patient 16:27:02 CDT Eri Borges MD PhD [facility] CPT-46372 Level 3 Est. Patient 10:36:43 CDT Octaviano Roselyn [facility] CPT-53257 Level 4 New Patient 08:58:06 CDT Ang Markham MD [facility] Procedures Code Procedure Name Date Entry Date Standard Description CPT-31915 Venipuncture Draw Fee 12:25:15 CDT CPT-69483 Knee 3V 16:48:40 CDT CPT-OV Office Visit 16:27:13 CDT CPT-OV Office Visit 16:21:19 CDT CPT-01666 Sono pelvis non OB uterus ovaries cervix 09:37:28 CDT
--- OUTSIDE RECORDS SUMMARY | 2018-12-22 02:23 | XMS REPORT | Clinical Summary ---
Author Author Admin, QIE Organization [facility] Address Unknown Phone Unavailable Allergies, Adverse Reactions, [...] I [juvenile type], not stated as uncontrolled senior living use 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 V58.67 Resolved Ang [...] unspecified hyperlipidemia Hematochezia 578.1 Active Jisteph Romero RN POOL Blood in stool Nausea 787.02 Active Jillina Franayal RN POOL Nausea alone Otitis externa, acute, left 380.12 [...] with hypoglycemia ICD-250.81 Inactive Ang Markham MD senior living use 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 ICD-V58.67 Inactive Ang Markham MD Medication List Medication Instructions Start Date Stop Date Generic Name NDC Status Provider Patient Instruction CORTISPORIN 3.5-22368-7 SOLN 4gtts in affected ear QID x 7 days [id number] 46659700120 Active Gabriel Hunt DO Active LEVEMIR FLEXTOUCH 100 UNIT/ML SC SOPN 35 units SC at 12-1pm, 35 units 12-1am INSULIN DETEMIR 70496353138 Active Ang Markham MD Active DOXEPIN HCL 10 MG CAP 1 tablet nightly for the itch DOXEPIN HCL 77764035295 Active Gabriel Hunt DO Active COLACE 100 MG CAP 1 po daily DOCUSATE SODIUM 40235805522 Wiley Hunt DO Active NOVOLOG FLEXPEN 100 UNIT/ML SOPN Take 20 units TID with meals, plus 2u/50 for blood sugars above 150. Ratio vs. Carbs INSULIN ASPART 57091343495 Active Gabriel Hunt DO Active BD PEN NEEDLE DINESH U/F 32G X 4 MM MISC 5 a day INSULIN PEN NEEDLE 36784097217 Active Celestine Sierraglari GENERAL OPHTHALMOLOGIST Active EMBRACE BLOOD GLUCOSE TEST STRP Test blood sugars 4 times daily and PRN 08/05 GLUCOSE BLOOD 19173202478 No Longer Active Celestine Sierraglari GENERAL OPHTHALMOLOGIST Active TRUEPLUS LANCETS 30G MISC 4 a day LANCETS 84143393213 Active Celestine Sierraglari GENERAL OPHTHALMOLOGIST Active TRUETEST TEST STRP check blood sugars 4x/day GLUCOSE BLOOD 60391066365 Active Celestine Sierraglari GENERAL OPHTHALMOLOGIST Active TRUERESULT BLOOD GLUCOSE W/DEVICE KIT check blood sugars 4x a day BLOOD GLUCOSE MONITORING SUPPL 16915577306 Active Celestine Sierraglari GENERAL OPHTHALMOLOGIST Active LISINOPRIL 5 MG TABS 1 po qd LISINOPRIL 60360991502 Active Ang Markham MD Active PAXIL 20 MG TAB 1 tablet by mouth daily PAROXETINE HCL 39252194384 Active Ang Markham MD Active GENTAMICIN SULFATE 0.1 % EXT OINT Apply to open sores once a day. GENTAMICIN SULFATE 97189261805 No Longer Active Ang Markham MD Active ZOLPIDEM TARTRATE 10 MG TABS 1 po qHS PRN Insomnia ZOLPIDEM TARTRATE 60153215284 Active Ang Markham MD Active BACTRIM DS 800-160 MG TAB 1 tab by mouth twice daily TRIMETHOPRIM-SULFAMETHOXAZOLE 20301456022 No Longer Active Gloria Dunbar RN POOL Active LEVEMIR FLEXPEN 100 UNIT/ML SOLN 40 units SC at bedtime INSULIN DETEMIR No Longer Active Susan Arellano RMA Active INSUPEN ULTRAFIN 31G X 6 MM MISC Use with insulin qid. DX: E11.9 INSULIN PEN NEEDLE 90243759526 Active Ang Markham MD Active ZOLOFT 100 MG TAB 1 po qHS SERTRALINE HCL 07110581760 No Longer Active Ang Markham MD Active MELOXICAM 15 MG TABS 1 po qd PRN Knee Pain MELOXICAM 86939552529 No Longer Active Ang Markham MD Active LIPITOR 40 MG TAB 1 po qHS ATORVASTATIN CALCIUM 34832788531 Active Ang Markham MD Active METFORMIN HCL 1000 MG TABS 1 tablet by mouth twice daily METFORMIN HCL 82869636716 Active Ang Markham MD Active CYCLOBENZAPRINE HCL 5 MG TABS 1 po qHS PRN Muscle pain CYCLOBENZAPRINE HCL 33259464264 Active Ang Markham MD Active COLACE 100 MG CAP 1 po BID PRN Constipation DOCUSATE SODIUM 95586747204 No Longer Active Ang Markham MD Active HYDROXYZINE HCL 25 MG TAB 1 TID PRN nerves HYDROXYZINE HCL 34861707173 Active Ang Markham MD Active IBUPROFEN 800 MG TABS 1 tab every 8 hours as needed for pain 2013 IBUPROFEN 44559187586 No Longer Active Ang Markham MD Active NITROFURANTOIN MACROCRYSTAL 100 MG CAPS 1 capsule PO bid x 7 days NITROFURANTOIN MACROCRYSTAL 08363978470 No Longer Active Ang Markham MD Active DIFLUCAN 150 MG TAB 1 qODay x 2 doses FLUCONAZOLE 11335976611 No Longer Active Da Romero APRN Active CEFTIN 500 MG TAB 1 tablet by mouth twice daily for 7 days 07/24 CEFUROXIME AXETIL 71725158443 No Longer Active Anthony CARBONE Active ZOLOFT 50 MG TAB 1 tablet by mouth daily SERTRALINE HCL 75361596735 No Longer Active Anthony CARBONE Active ANUSOL-HC 2.5 % CREAM apply as needed HYDROCORTISONE (RECTAL) 22546356288 No Longer Active Anthony CARBONE Active COLACE 100 MG CAP 1 tab PO BID DOCUSATE SODIUM 00099102739 No Longer Active Anthony CARBONE Active TRINESSA (28) 0.18/0.215/0.25 MG-35 MCG TABS 1 po qd as directed NORGESTIM-ETH ESTRAD TRIPHASIC 05655366433 No Longer Active Anthony CARBONE Active [facility] MELATONIN 5 MG TABS 1-2 po qHS PRN Insomnia MELATONIN 30874122487 No Longer Active Anthony CARBONE Active ACYCLOVIR 400 MG TABS ACYCLOVIR 75782672729 No Longer Active Ang Markham MD Active HYDROXYZINE HCL 25 MG TABS 1 tab PO tid PRN itching HYDROXYZINE HCL 80353706936 No Longer Active Ang Markham MD Active DIFLUCAN 150 MG TAB 1 qODay x 2 doses FLUCONAZOLE 17280013226 No Longer Active Jillina Frazell RN POOL Active ACYCLOVIR 400 MG TABS 1 pill twice daily ACYCLOVIR 47211923116 No Longer Active Jillina Frazell RN POOL Active AZITHROMYCIN 250 MG TABS 2 po qd x 1 day, then 1 po qd x 4 days AZITHROMYCIN 22126885509 No Longer Active Eri Borges MD PhD Active AZITHROMYCIN 250 MG TABS take 2 po day 1 then take1 po days 2-5 AZITHROMYCIN 82328381491 No Longer Active Octaviano CARBONE Active ACYCLOVIR 400 MG TABS 1 po qd ACYCLOVIR 57872894415 No Longer Active Ang Markham MD Active PROZAC 40 MG CAPS 1 cap by mouth at bedtime FLUOXETINE HCL 78528949365 No Longer Active Ang Markham MD Active HYDROXYZINE HCL 25 MG TABS 1 tab PO tid PRN itching HYDROXYZINE HCL 25 MG TABS 308057 HYDROXYZINE HCL Inactive [facility] MELAT[facility]IN 5 MG TABS 1-2 po qHS PRN Insomnia [facility] MELATONIN 5 MG TABS 168757 MELATONIN Inactive TRINESSA (28) 0.18/0.215/0.25 MG-35 MCG TABS 1 po qd as directed TRINESSA (28) 0.18/0.215/0.25 MG-35 MCG TABS 893488 NORGESTIM-ETH ESTRAD TRIPHASIC Inactive COLACE 100 MG CAP 1 tab PO BID COLACE 100 MG CAP 2213023 DOCUSATE SODIUM Inactive ANUSOL-HC 2.5 % CREAM apply as needed ANUSOL-HC 2.5 % CREAM 778897 HYDROCORTISONE (RECTAL) Inactive ZOLOFT 50 MG TAB 1 tablet by mouth daily ZOLOFT 50 MG TAB 077447 SERTRALINE HCL Inactive CEFTIN 500 MG TAB 1 tablet by mouth twice daily for 7 days 07/24 CEFTIN 500 MG TAB 322776 CEFUROXIME AXETIL Inactive NITROFURANTOIN MACROCRYSTAL 100 MG CAPS 1 capsule PO bid x 7 days NITROFURANTOIN MACROCRYSTAL 100 MG CAPS 0235978 NITROFURANTOIN MACROCRYSTAL Inactive IBUPROFEN 800 MG TABS 1 tab every 8 hours as needed for pain 2013 IBUPROFEN 800 MG TABS 472082 IBUPROFEN Inactive COLACE 100 MG CAP 1 po BID PRN Constipation COLACE 100 MG CAP 2308220 DOCUSATE SODIUM Inactive MELOXICAM 15 MG TABS 1 po qd PRN Knee Pain MELOXICAM 15 MG TABS 576336 MELOXICAM Inactive LEVEMIR FLEXPEN 100 UNIT/ML SOLN 40 units SC at bedtime LEVEMIR FLEXPEN 100 UNIT/ML SOLN INSULIN DETEMIR Inactive GENTAMICIN SULFATE 0.1 % EXT OINT Apply to open sores once a day. GENTAMICIN SULFATE 0.1 % EXT OINT 848707 GENTAMICIN SULFATE Inactive EMBRACE BLOOD GLUCOSE TEST STRP Test blood sugars 4 times daily and PRN 08/05 EMBRACE BLOOD GLUCOSE TEST STRP GLUCOSE BLOOD Inactive ACYCLOVIR 400 MG TABS 1 po qd ACYCLOVIR 400 MG TABS 19720928 ACYCLOVIR Inactive AZITHROMYCIN 250 MG TABS take 2 po day 1 then take1 po days 2-5 AZITHROMYCIN 250 MG TABS 1716217 AZITHROMYCIN Inactive AZITHROMYCIN 250 MG TABS 2 po qd x 1 day, then 1 po qd x 4 days AZITHROMYCIN 250 MG TABS 2979312 AZITHROMYCIN Inactive ACYCLOVIR 400 MG TABS 1 pill twice daily ACYCLOVIR 400 MG TABS 19720928 ACYCLOVIR Inactive DIFLUCAN 150 MG TAB 1 qODay x 2 doses DIFLUCAN 150 MG TAB 19760606 FLUCONAZOLE Inactive ACYCLOVIR 400 MG TABS ACYCLOVIR 400 MG TABS 19720928 ACYCLOVIR Inactive DIFLUCAN 150 MG TAB 1 qODay x 2 doses DIFLUCAN 150 MG TAB 318375 FLUCONAZOLE Inactive BACTRIM DS 800-160 MG TAB 1 tab by mouth twice daily BACTRIM DS 800-160 MG TAB 617548 TRIMETHOPRIM-SULFAMETHOXAZOLE Inactive Advance Directives Directive Description Start [...] HGBA1C - Chemistry sodium, serum 134 mmol/L 825-593 0723/03/16 carbon dioxide, venous blood 34.5 mmol/L 21.0-32.0 potassium, serum 4.6 mmol/L 3.5-5.2 chloride, serum 93 mmol/L 98-107 blood glucose 408 mg/dL 65-110 urea nitrogen, blood 3 mg/dL 7-18 creatinine, serum 0.58 mg/dL 0.55-1.30 alanine aminotransferase (SGPT), serum 11 U/L 12-78 aspartate aminotransferase (SGOT), serum 8 U/L 15-37 calcium, serum 9.2 mg/dL 8.5-10.1 bilirubin, serum, total 0.30 mg/dL 0.00-1.00 cholesterol, serum 195 mg/dL 813-368 1687/03/16 triglyceride, serum, fasting 138 mg/dL 30-200 HDL [...] Panel - Chemistry sodium, serum 133 mmol/L 607-354 7961/06/03 carbon dioxide, venous blood 33.4 mmol/L 21.0-32.0 [...] pH, urine, semiquantitative 5.5 5.0-8.5 Lab Report: [facility] – [...] Yes Encounters Code Encounter Date Provider Facility CPT-51339 Level 3 Est. Patient 17:02:[address] [facility] CPT-45696 Level 3 Est. Patient 14:46:22 CDT Da Romero [facility] [place] CPT-40158 Level 4 Est. Patient 13:55:20 CDT Ang Markham MD [facility] CPT-92456 Level 4 Est. Patient 16:10:09 CDT Celestine Heurta [facility] [place] CPT-32116 Level 3 Est. Patient 13:51:24 CDT Ang Markham MD [facility] CPT-10071 Level 3 Est. Patient 18:42:15 CDT Gabriel Hunt [facility] CPT-63059 Level 5 Est. Patient 14:40:14 CDT Celestine Huerta [facility] [place] CPT-60404 Level 4 Est. Patient 14:36:17 CDT Ang Markham MD [facility] CPT-71638 Level 3 Est. Patient 11:13:47 [employer] Ang Markham MD [facility] CPT-88015 Level 3 Est. Patient 11:59:20 [employer] Gloria Dunbar [facility] [place] CPT-02843 Level 3 Est. Patient 17:32:37 [employer] Gloria Dunbar [facility] [place] CPT-11642 Level 4 Est. Patient 16:39:07 CDT Ang Markham MD [facility] CPT-51360 Level 3 Est. Patient 16:35:50 CDT Ang Markham MD [facility] CPT-36471 Level 4 Est. Patient 13:53:06 [employer] Ang Markham MD [facility] CPT-44763 Level 3 Est. Patient 08:58:08 [employer] Ang Markham MD [facility] CPT-31800 Level 3 Est. Patient 18:48:29 CDT Anthony Whitfield [facility] CPT-29174 Level 3 Est. Patient 12:16:59 CDT Gabriel Hunt DO [facility] CPT-23640 Level 3 Est. Patient 18:57:15 CDT Anthony Whitfield [facility] CPT-94238 Level 3 Est. Patient 13:59:22 [employer] Ang Markham MD [facility] CPT-66123 Level 4 Est. Patient 10:36:08 [employer] Ang Markham MD [facility] CPT-63588 Level 3 Est. Patient 16:27:02 CDT Eri Borges MD PhD [facility] CPT-96932 Level 3 Est. Patient 10:36:43 CDT Octaviano Roselyn [facility] CPT-26902 Level 4 New Patient 08:58:06 CDT Ang Markham MD [facility] Procedures Code Procedure Name Date Entry Date Standard Description CPT-59759 Abd compl w upright - XRAY USE ONLY 14:09:39 CDT 02/28 CPT-30047 Venipuncture Draw Fee 12:25:15 CDT CPT-95395 Knee 3V 16:48:40 CDT CPT-OV Office Visit 16:27:13 CDT CPT-OV Office Visit 16:21:19 CDT CPT-02252 Sono pelvis non OB uterus ovaries cervix 09:37:28 CDT
--- OUTSIDE RECORDS SUMMARY | 2018-12-22 02:24 | XMS REPORT | Clinical Summary ---
Author Author Admin, QIE Organization [employer] Address Unknown Phone Unavailable Allergies, Adverse Reactions, [...] 5 MG TABS 1 po qd LISINOPRIL 07530727016 Active Ang Markham MD Active NOVOLOG FLEXPEN 100 UNIT/ML SOPN Take 20 units TID with meals INSULIN ASPART 45552283858 Wiley Markham MD Active LEVEMIR FLEXTOUCH 100 UNIT/ML SC SOPN 60 units SC nightly INSULIN DETEMIR 18734813152 Wiley Markham MD Active COLACE 100 MG CAP 1 po BID PRN Constipation DOCUSATE SODIUM 96130915920 Wiley Markham MD Active PAXIL 20 MG TAB 1 tablet by mouth daily PAROXETINE HCL 40711437989 Wiley Markham MD Active GENTAMICIN SULFATE 0.1 % EXT OINT Apply to open sores once a day. GENTAMICIN SULFATE 32039807279 No Longer Active Ang Markham MD Active ZOLPIDEM TARTRATE 10 MG TABS 1 po qHS PRN Insomnia ZOLPIDEM TARTRATE 67917521938 Active Ang Markham MD Active BACTRIM DS 800-160 MG TAB 1 tab by mouth twice daily TRIMETHOPRIM-SULFAMETHOXAZOLE 77619492092 No Longer Active Gloria Jefersonum FORGESMITH Active LEVEMIR FLEXPEN 100 UNIT/ML SOLN 40 units SC at bedtime INSULIN DETEMIR No Longer Active Susankalen Arellano RMA Active INSUPEN ULTRAFIN 31G X 6 MM MISC Use with insulin qid. DX: E11.9 INSULIN PEN NEEDLE 40442835987 Active Ang Markham MD Active ZOLOFT 100 MG TAB 1 po qHS SERTRALINE HCL 04819317465 No Longer Active Ang Markham MD Active MELOXICAM 15 MG TABS 1 po qd PRN Knee Pain MELOXICAM 07623636142 No Longer Active Ang Markham MD Active LIPITOR 40 MG TAB 1 po qHS ATORVASTATIN CALCIUM 21703689292 Active Ang Markham MD Active METFORMIN HCL 1000 MG TABS 1 tablet by mouth twice daily METFORMIN HCL 52322237562 Active Ang Markham MD Active CYCLOBENZAPRINE HCL 5 MG TABS 1 po qHS PRN Muscle pain CYCLOBENZAPRINE HCL 81543314443 Active Ang Markham MD Active COLACE 100 MG CAP 1 po BID PRN Constipation DOCUSATE SODIUM 47725036414 No Longer Active Ang Markham MD Active HYDROXYZINE HCL 25 MG TAB 1 TID PRN nerves HYDROXYZINE HCL 49263642498 Active Ang Markham MD Active IBUPROFEN 800 MG TABS 1 tab every 8 hours as needed for pain 2013 IBUPROFEN 01870820698 No Longer Active Ang Markham MD Active NITROFURANTOIN MACROCRYSTAL 100 MG CAPS 1 capsule PO bid x 7 days NITROFURANTOIN MACROCRYSTAL 14499844389 No Longer Active Ang Markham MD Active DIFLUCAN 150 MG TAB 1 qODay x 2 doses FLUCONAZOLE 12144612088 No Longer Active Da Romero APRN Active CEFTIN 500 MG TAB 1 tablet by mouth twice daily for 7 days 07/24 CEFUROXIME AXETIL 56795376027 No Longer Active Anthony CARBONE Active ZOLOFT 50 MG TAB 1 tablet by mouth daily SERTRALINE HCL 01731445354 No Longer Active Anthony CARBONE Active ANUSOL-HC 2.5 % CREAM apply as needed HYDROCORTISONE (RECTAL) 50446560810 No Longer Active Anthony CARBONE Active COLACE 100 MG CAP 1 tab PO BID DOCUSATE SODIUM 62927722325 No Longer Active Anthony CARBONE Active TRINESSA (28) 0.18/0.215/0.25 MG-35 MCG TABS 1 po qd as directed NORGESTIM-ETH ESTRAD TRIPHASIC 58786347512 No Longer Active Anthony CARBONE Active [facility] MELATONIN 5 MG TABS 1-2 po qHS PRN Insomnia MELATONIN 64922455256 No Longer Active Anthony CARBONE Active ACYCLOVIR 400 MG TABS ACYCLOVIR 69659695679 No Longer Active Ang Markham MD Active EMBRACE BLOOD GLUCOSE TEST STRP Test blood sugars 4 times daily and PRN 08/05 GLUCOSE BLOOD 59386885531 Active Ang Markham MD Active HYDROXYZINE HCL 25 MG TABS 1 tab PO tid PRN itching HYDROXYZINE HCL 75382296211 No Longer Active Ang Markham MD Active DIFLUCAN 150 MG TAB 1 qODay x 2 doses FLUCONAZOLE 34596682394 No Longer Active Da Romero APRN Active ACYCLOVIR 400 MG TABS 1 pill twice daily ACYCLOVIR 66850984978 No Longer Active Da Romero APRN Active AZITHROMYCIN 250 MG TABS 2 po qd x 1 day, then 1 po qd x 4 days AZITHROMYCIN 92649842553 No Longer Active Eri Borges MD PhD Active AZITHROMYCIN 250 MG TABS take 2 po day 1 then take1 po days 2-5 AZITHROMYCIN 89424348605 No Longer Active Octaviano CARBONE Active ACYCLOVIR 400 MG TABS 1 po qd ACYCLOVIR 97473415924 No Longer Active Ang Markham MD Active PROZAC 40 MG CAPS 1 cap by mouth at bedtime FLUOXETINE HCL 94134180729 No Longer Active Ang Markham MD Active HYDROXYZINE HCL 25 MG TABS 1 tab PO tid PRN itching HYDROXYZINE HCL 25 MG TABS 995423 HYDROXYZINE HCL Inactive [facility] MELATONIN 5 MG TABS 1-2 po qHS PRN Insomnia [facility] MELATONIN 5 MG TABS 427036 MELATONIN Inactive TRINESSA (28) 0.18/0.215/0.25 MG-35 MCG TABS 1 po qd as directed TRINESSA (28) 0.18/0.215/0.25 MG-35 MCG TABS 359002 NORGESTIM-ETH ESTRAD TRIPHASIC Inactive COLACE 100 MG CAP 1 tab PO BID COLACE 100 MG CAP 9184861 DOCUSATE SODIUM Inactive ANUSOL-HC 2.5 % CREAM apply as needed ANUSOL-HC 2.5 % CREAM 624644 HYDROCORTISONE (RECTAL) Inactive ZOLOFT 50 MG TAB 1 tablet by mouth daily ZOLOFT 50 MG TAB 346685 SERTRALINE HCL Inactive CEFTIN 500 MG TAB 1 tablet by mouth twice daily for 7 days 07/24 CEFTIN 500 MG TAB 462598 CEFUROXIME AXETIL Inactive NITROFURANTOIN MACROCRYSTAL 100 MG CAPS 1 capsule PO bid x 7 days NITROFURANTOIN MACROCRYSTAL 100 MG CAPS 1826127 NITROFURANTOIN MACROCRYSTAL Inactive IBUPROFEN 800 MG TABS 1 tab every 8 hours as needed for pain 2013 IBUPROFEN 800 MG TABS 766997 IBUPROFEN Inactive COLACE 100 MG CAP 1 po BID PRN Constipation COLACE 100 MG CAP 4405727 DOCUSATE SODIUM Inactive MELOXICAM 15 MG TABS 1 po qd PRN Knee Pain MELOXICAM 15 MG TABS 511277 MELOXICAM Inactive LEVEMIR FLEXPEN 100 UNIT/ML SOLN 40 units SC at bedtime LEVEMIR FLEXPEN 100 UNIT/ML SOLN INSULIN DETEMIR Inactive GENTAMICIN SULFATE 0.1 % EXT OINT Apply to open sores once a day. GENTAMICIN SULFATE 0.1 % EXT OINT 124265 GENTAMICIN SULFATE Inactive ACYCLOVIR 400 MG TABS 1 po qd ACYCLOVIR 400 MG TABS 19720928 ACYCLOVIR Inactive AZITHROMYCIN 250 MG TABS take 2 po day 1 then take1 po days 2-5 AZITHROMYCIN 250 MG TABS 3879185 AZITHROMYCIN Inactive AZITHROMYCIN 250 MG TABS 2 po qd x 1 day, then 1 po qd x 4 days AZITHROMYCIN 250 MG TABS 3752916 AZITHROMYCIN Inactive ACYCLOVIR 400 MG TABS 1 pill twice daily ACYCLOVIR 400 MG TABS 993122 ACYCLOVIR Inactive DIFLUCAN 150 MG TAB 1 qODay x 2 doses DIFLUCAN 150 MG TAB 770603 FLUCONAZOLE Inactive ACYCLOVIR 400 MG TABS ACYCLOVIR 400 MG TABS 329968 ACYCLOVIR Inactive DIFLUCAN 150 MG TAB 1 qODay x 2 doses DIFLUCAN 150 MG TAB 093154 FLUCONAZOLE Inactive BACTRIM DS 800-160 MG TAB 1 tab by mouth twice daily BACTRIM DS 800-160 MG TAB 440110 TRIMETHOPRIM-SULFAMETHOXAZOLE Inactive Advance Directives Directive Description Start [...] HGBA1C - Chemistry sodium, serum 134 mmol/L 856-560 2639/03/16 carbon dioxide, venous blood 34.5 mmol/L 21.0-32.0 potassium, serum 4.6 mmol/L 3.5-5.2 chloride, serum 93 mmol/L 98-107 blood glucose 408 mg/dL 65-110 urea nitrogen, blood 3 mg/dL 7-18 creatinine, serum 0.58 mg/dL 0.55-1.30 alanine aminotransferase (SGPT), serum 11 U/L 12-78 aspartate aminotransferase (SGOT), serum 8 U/L 15-37 calcium, serum 9.2 mg/dL 8.5-10.1 bilirubin, serum, total 0.30 mg/dL 0.00-1.00 cholesterol, serum 195 mg/dL 017-156 2405/03/16 triglyceride, serum, fasting 138 mg/dL 30-200 HDL cholesterol, serum 41 mg/dL 32-96 LDL cholesterol, serum 126 mg/dL 0-130 hemoglobin A1C, blood, as % of total hemoglobin 13.6 % 4.3-6.0 Lab Report: CBC, Comp. Metabolic Panel, Lipid Panel, HGBA1C - Hematology mean corpuscular hemoglobin, RBC 26.3 pg 27.0-31.2 mean corpuscular hemoglobin concentration, RBC 32.6 G/DL % 31.8- 35.4 red blood cell distribution width 14.2 % 11.6-14.8 platelet count 429 10^3/MM^3 10*3/mm3 999-533 5102/03/16 mean corpuscular volume, RBC 81 fL 80-97 [...] 0-19 Encounters Code Encounter Date Provider Facility CPT-54237 Level 4 Est. Patient 14:36:17 CDT Ang Markham MD [facility] CPT-49425 Level 3 Est. Patient 11:13:47 CAMPER ASSEMBLER Ang Markham MD [facility] CPT-92250 Level 3 Est. Patient 11:59:20 CAMPER ASSEMBLER Gloria Dunbar [facility] CPT-93971 Level 3 Est. Patient 17:32:37 CAMPER ASSEMBLER Gloria Dunbar [facility] CPT-03371 Level 4 Est. Patient 16:39:07 CDT Ang Markham MD [facility] CPT-16532 Level 3 Est. Patient 16:35:50 CDT Ang Markham MD [facility] CPT-47052 Level 4 Est. Patient 13:53:06 CAMPER ASSEMBLER Ang Markham MD [facility] CPT-26919 Level 3 Est. Patient 08:58:08 CAMPER ASSEMBLER Ang Markham MD [facility] CPT-96956 Level 3 Est. Patient 18:48:29 CDT Anthony Whitfield [facility] CPT-62460 Level 3 Est. Patient 12:16:59 CDT Gabriel Hunt DO [facility] CPT-24470 Level 3 Est. Patient 18:57:15 CDT Anthony Whitfield [facility] CPT-26467 Level 3 Est. Patient 13:59:22 CAMPER ASSEMBLER Ang Markham MD [facility] CPT-69066 Level 4 Est. Patient 10:36:08 CAMPER ASSEMBLER Ang Markham MD [facility] CPT-66525 Level 3 Est. Patient 16:27:02 CDT Eri Borges MD [facility] CPT-70744 Level 3 Est. Patient 10:36:43 CDT Octaviano Wilkersonjj [facility] CPT-99416 Level 4 New Patient 08:58:06 CDT Ang Markham MD [facility] Procedures Code Procedure Name Date Entry Date Standard Description CPT-04008 Venipuncture Draw Fee 12:25:15 CDT CPT-08149 Knee 3V 16:48:40 CDT CPT-OV Office Visit 16:27:13 CDT CPT-OV Office Visit 16:21:19 CDT CPT-52678 Sono pelvis non OB uterus ovaries cervix 09:37:28 CDT
--- OUTSIDE RECORDS SUMMARY | 2018-12-22 02:24 | XMS REPORT | Clinical Summary ---
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 GENTAMICIN SULFATE 19920834624 Active Gloria Yokum [employer] O[employer]ATOR Active BACTRIM DS 800-160 MG TAB 1 tab by mouth twice daily TRIMETHOPRIM-SULFAMETHOXAZOLE 04992180391 No Longer Active Gloria Yokum [employer] OPERATOR Active LEVEMIR FLEXTOUCH 100 UNIT/ML SC SOPN 40 units SC nightly INSULIN DETEMIR 44455977741 Active Ang Markham MD Active LEVEMIR FLEXPEN 100 UNIT/ML SOLN 40 units SC at bedtime INSULIN DETEMIR No Longer Active Susan Arellano RMA Active INSUPEN ULTRAFIN 31G X 6 MM MISC Use with insulin qid. DX: E11.9 INSULIN PEN NEEDLE 74285479112 Active Ang Markham MD Active ZOLOFT 100 MG TAB 1 po qHS SERTRALINE HCL 69394796034 Active Ang Markham MD Active MELOXICAM 15 MG TABS 1 po qd PRN Knee Pain MELOXICAM 83250412816 No Longer Active Ang Markham MD Active LIPITOR 40 MG TAB 1 po qHS ATORVASTATIN CALCIUM 60630651665 Active Ang Markham MD Active METFORMIN HCL 1000 MG TABS 1 tablet by mouth twice daily METFORMIN HCL 19459711830 Active Ang Markham MD Active CYCLOBENZAPRINE HCL 5 MG TABS 1 po qHS PRN Muscle pain CYCLOBENZAPRINE HCL 70358848104 Active Ang Markham MD Active COLACE 100 MG CAP 1 po BID PRN Constipation DOCUSATE SODIUM 06247687185 No Longer Active Ang Markham MD Active HYDROXYZINE HCL 25 MG TAB 1 TID PRN nerves HYDROXYZINE HCL 83508253898 Active Ang Markham MD Active IBUPROFEN 800 MG TABS 1 tab every 8 hours as needed for pain 2013 IBUPROFEN 90300712350 No Longer Active Ang Markham MD Active NITROFURANTOIN MACROCRYSTAL 100 MG CAPS 1 capsule PO bid x 7 days NITROFURANTOIN MACROCRYSTAL 50827446914 No Longer Active Ang Markham MD Active DIFLUCAN 150 MG TAB 1 qODay x 2 doses FLUCONAZOLE 18526205108 No Longer Active Da Romero [employer] OPERATOR Active CEFTIN 500 MG TAB 1 tablet by mouth twice daily for 7 days 07/24 CEFUROXIME AXETIL 25254115636 No Longer Active Anthony CARBONE Active ZOLOFT 50 MG TAB 1 tablet by mouth daily SERTRALINE HCL 29953697383 No Longer Active Anthony CARBONE Active ANUSOL-HC 2.5 % CREAM apply as needed HYDROCORTISONE (RECTAL) 03438792311 No Longer Active Anthony CARBONE Active COLACE 100 MG CAP 1 tab PO BID DOCUSATE SODIUM 79889494320 No Longer Active Anthony CARBONE Active TRINESSA (28) 0.18/0.215/0.25 MG-35 MCG TABS 1 po qd as directed NORGESTIM-ETH ESTRAD TRIPHASIC 57647370350 No Longer Active Anthony CARBONE Active [facility] MELATONIN 5 MG TABS 1-2 po qHS PRN Insomnia MELATONIN 28775349139 No Longer Active Anthony CARBONE Active NOVOLOG FLEXPEN 100 UNIT/ML SOPN Take 18 units TID with meals INSULIN ASPART 73256542527 Active Codey Hdez MD Active ACYCLOVIR 400 MG TABS ACYCLOVIR 51813399337 No Longer Active Ang Markham MD Active EMBRACE BLOOD GLUCOSE TEST STRP Test blood sugars 4 times daily and PRN 08/05 GLUCOSE BLOOD 93470153375 Active Ang Markham MD Active HYDROXYZINE HCL 25 MG TABS 1 tab PO tid PRN itching HYDROXYZINE HCL 32766824809 No Longer Active Ang Markham MD Active DIFLUCAN 150 MG TAB 1 qODay x 2 doses FLUCONAZOLE 62834322320 No Longer Active Da Romero APRN Active ACYCLOVIR 400 MG TABS 1 pill twice daily ACYCLOVIR 97396452482 No Longer Active Da Romero APRN Active AZITHROMYCIN 250 MG TABS 2 po qd x 1 day, then 1 po qd x 4 days AZITHROMYCIN 55481239032 No Longer Active Eri Borges MD PhD Active AZITHROMYCIN 250 MG TABS take 2 po day 1 then take1 po days 2-5 AZITHROMYCIN 80615922023 No Longer Active Octaviano CARBONE Active ACYCLOVIR 400 MG TABS 1 po qd ACYCLOVIR 86255707449 No Longer Active Ang Markham MD Active PROZAC 40 MG CAPS 1 cap by mouth at bedtime FLUOXETINE HCL 07616609242 No Longer Active Ang Markham MD Active HYDROXYZINE HCL 25 MG TABS 1 tab PO tid PRN itching HYDROXYZINE HCL 25 MG TABS 517612 HYDROXYZINE HCL Inactive [facility] MELAT[facility]IN 5 MG TABS 1-2 po qHS PRN Insomnia [facility] MELATONIN 5 MG TABS 576738 MELATONIN Inactive TRINESSA (28) 0.18/0.215/0.25 MG-35 MCG TABS 1 po qd as directed TRINESSA (28) 0.18/0.215/0.25 MG-35 MCG TABS 348920 NORGESTIM-ETH ESTRAD TRIPHASIC Inactive COLACE 100 MG CAP 1 tab PO BID COLACE 100 MG CAP 2795140 DOCUSATE SODIUM Inactive ANUSOL-HC 2.5 % CREAM apply as needed ANUSOL-HC 2.5 % CREAM 279716 HYDROCORTISONE (RECTAL) Inactive ZOLOFT 50 MG TAB 1 tablet by mouth daily ZOLOFT 50 MG TAB 494166 SERTRALINE HCL Inactive CEFTIN 500 MG TAB 1 tablet by mouth twice daily for 7 days 07/24 CEFTIN 500 MG TAB 316259 CEFUROXIME AXETIL Inactive NITROFURANTOIN MACROCRYSTAL 100 MG CAPS 1 capsule PO bid x 7 days NITROFURANTOIN MACROCRYSTAL 100 MG CAPS 5865047 NITROFURANTOIN MACROCRYSTAL Inactive IBUPROFEN 800 MG TABS 1 tab every 8 hours as needed for pain 2013 IBUPROFEN 800 MG TABS 396445 IBUPROFEN Inactive COLACE 100 MG CAP 1 po BID PRN Constipation COLACE 100 MG CAP 0634652 DOCUSATE SODIUM Inactive MELOXICAM 15 MG TABS 1 po qd PRN Knee Pain MELOXICAM 15 MG TABS 817802 MELOXICAM Inactive LEVEMIR FLEXPEN 100 UNIT/ML SOLN 40 units SC at bedtime LEVEMIR FLEXPEN 100 UNIT/ML SOLN INSULIN DETEMIR Inactive ACYCLOVIR 400 MG TABS 1 po qd ACYCLOVIR 400 MG TABS 19720928 ACYCLOVIR Inactive AZITHROMYCIN 250 MG TABS take 2 po day 1 then take1 po days 2-5 AZITHROMYCIN 250 MG TABS 8526083 AZITHROMYCIN Inactive AZITHROMYCIN 250 MG TABS 2 po qd x 1 day, then 1 po qd x 4 days AZITHROMYCIN 250 MG TABS 1374943 AZITHROMYCIN Inactive ACYCLOVIR 400 MG TABS 1 pill twice daily ACYCLOVIR 400 MG TABS 19720928 ACYCLOVIR Inactive DIFLUCAN 150 MG TAB 1 qODay x 2 doses DIFLUCAN 150 MG TAB 921315 FLUCONAZOLE Inactive ACYCLOVIR 400 MG TABS ACYCLOVIR 400 MG TABS 19720928 ACYCLOVIR Inactive DIFLUCAN 150 MG TAB 1 qODay x 2 doses DIFLUCAN 150 MG TAB 590806 FLUCONAZOLE Inactive BACTRIM DS 800-160 MG TAB 1 tab by mouth twice daily BACTRIM DS 800-160 MG TAB 988988 TRIMETHOPRIM-SULFAMETHOXAZOLE Inactive Advance Directives Directive Description Start [...] pressure, diastolic - 8462-4 80 mm[Hg] BP arryoo blood pressure, systolic - 8480-6 120 mm[Hg] [...] E&M - 3141-9 131.5 [lb_av] Weight Measured Diagnostic Results Date Name Value Unit Range Description Lab Report: CBC, Comp. Metabolic Panel, Lipid Panel, HGBA1C - Chemistry sodium, serum 139 mmol/L 412-374 8401/02/03 potassium, serum 4.4 mmol/L 3.5-5.2 chloride, serum 98 mmol/L 98-107 carbon dioxide, venous blood 31.5 mmol/L 21.0-32.0 blood glucose 304 mg/dL 65-110 urea nitrogen, blood 10 mg/dL 7-18 creatinine, serum 0.80 mg/dL 0.60-1.30 alanine aminotransferase (SGPT), serum 23 U/L 12-78 aspartate aminotransferase (SGOT), serum 16 U/L 15-37 calcium, serum 9.4 mg/dL 8.5-10.1 bilirubin, serum, total 0.20 mg/dL 0.00-1.00 cholesterol, serum 309 mg/dL 273-487 0283/02/03 triglyceride, serum, fasting 277 mg/dL 30-200 HDL [...] count 273 10^3/MM^3 10*3/mm3 142-424 Lab Report: HGBA1C - Chemistry hemoglobin A1C, blood, as % of total hemoglobin 12.3 % 4.3-6.0 Encounters Code Encounter Date Provider Facility CPT-70740 Level 3 Est. 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 Patient 17:32:37 PREPRINT ANALYST Gloria Dunbar [facility] CPT-19798 Level 4 Est. Patient 16:39:07 CDT Ang Markham MD [facility] CPT-55805 Level 3 Est. Patient 16:35:50 CDT Ang Markham MD [facility] CPT-44935 Level 4 Est. Patient 13:53:06 PREPRINT ANALYST Ang Markham MD [facility] CPT-47926 Level 3 Est. Patient 08:58:08 PREPRINT ANALYST Ang Markham MD [facility] CPT-91265 Level 3 Est. Patient 18:48:29 CDT Anthony Whitfield [facility] CPT-14747 Level 3 Est. Patient 12:16:59 CDT Gabriel Hunt DO [facility] CPT-28261 Level 3 Est. Patient 18:57:15 CDT Anthony Whitfield [facility] CPT-05956 Level 3 Est. Patient 13:59:22 PREPRINT ANALYST Ang Markham MD [facility] CPT-48147 Level 4 Est. Patient 10:36:08 PREPRINT ANALYST Ang Markham MD [facility] CPT-68990 Level 3 Est. Patient 16:27:02 CDT Eri Borges MD PhD [facility] CPT-14923 Level 3 Est. Patient 10:36:43 CDT Octaviano Dempsey [facility] CPT-19298 Level 4 New Patient 08:58:06 CDT Ang Markham MD [facility] Procedures Code Procedure Name Date Entry Date Standard Description CPT-14094 Venipuncture Draw Fee 12:25:15 CDT CPT-16112 Knee 3V 16:48:40 CDT CPT-OV Office Visit 16:27:13 CDT CPT-OV Office Visit 16:21:19 CDT CPT-12863 Sono pelvis non OB uterus ovaries cervix 09:37:28 CDT
--- OUTSIDE RECORDS SUMMARY | 2018-12-22 02:25 | XMS REPORT | Clinical Summary ---
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 Ratio vs. Carbs INSULIN ASPART 74459329077 Active Gabriel Hutn DO Active BD PEN NEEDLE DINESH U/F 32G X 4 MM MISC 5 a day INSULIN PEN NEEDLE 58189999312 Active Maliheh Ziglari HEATER FURNACE Active LEVEMIR FLEXTOUCH 100 UNIT/ML SC SOPN 30 units SC at 12-1pm, 30 units 12-1am INSULIN DETEMIR 53380325020 Active Maliheh Ziglari HEATER FURNACE Active EMBRACE BLOOD GLUCOSE TEST STRP Test blood sugars 4 times daily and PRN 08/05 GLUCOSE BLOOD 65318879160 No Longer Active Maliheh Ziglari HEATER FURNACE Active TRUEPLUS LANCETS 30G MISC 4 a day LANCETS 39302950249 Active Maliheh Ziglari HEATER FURNACE Active TRUETEST TEST STRP check blood sugars 4x/day GLUCOSE BLOOD 61964325716 Active Maliheh Ziglari HEATER FURNACE Active TRUERESULT BLOOD GLUCOSE W/DEVICE KIT check blood sugars 4x a day BLOOD GLUCOSE MONITORING SUPPL 65243832855 Active Maliheh Ziglari HEATER FURNACE Active LISINOPRIL 5 MG TABS 1 po qd LISINOPRIL 31795960636 Active Ang Markham MD Active PAXIL 20 MG TAB 1 tablet by mouth daily PAROXETINE HCL 93598861660 Active Ang Markham MD Active GENTAMICIN SULFATE 0.1 % EXT OINT Apply to open sores once a day. GENTAMICIN SULFATE 78259381965 No Longer Active Ang Markham MD Active ZOLPIDEM TARTRATE 10 MG TABS 1 po qHS PRN Insomnia ZOLPIDEM TARTRATE 25939984362 Active Ang Markham MD Active BACTRIM DS 800-160 MG TAB 1 tab by mouth twice daily TRIMETHOPRIM-SULFAMETHOXAZOLE 61681566695 No Longer Active Gloria Dunbar KNITTING MACHINE OPERATOR HELPER Active LEVEMIR FLEXPEN 100 UNIT/ML SOLN 40 units SC at bedtime INSULIN DETEMIR No Longer Active Susan Arellano RMA Active INSUPEN ULTRAFIN 31G X 6 MM MISC Use with insulin qid. DX: E11.9 INSULIN PEN NEEDLE 40592736669 Active Ang Markham MD Active ZOLOFT 100 MG TAB 1 po qHS SERTRALINE HCL 30465457437 No Longer Active Ang Markham MD Active MELOXICAM 15 MG TABS 1 po qd PRN Knee Pain MELOXICAM 22189645468 No Longer Active Ang Markham MD Active LIPITOR 40 MG TAB 1 po qHS ATORVASTATIN CALCIUM 60858874508 Active Ang Markham MD Active METFORMIN HCL 1000 MG TABS 1 tablet by mouth twice daily METFORMIN HCL 73939769454 Active Ang Markham MD Active CYCLOBENZAPRINE HCL 5 MG TABS 1 po qHS PRN Muscle pain CYCLOBENZAPRINE HCL 27697890756 Active Ang Markham MD Active COLACE 100 MG CAP 1 po BID PRN Constipation DOCUSATE SODIUM 87086157743 No Longer Active Ang Markham MD Active HYDROXYZINE HCL 25 MG TAB 1 TID PRN nerves HYDROXYZINE HCL 09216538427 Active Ang Markham MD Active IBUPROFEN 800 MG TABS 1 tab every 8 hours as needed for pain 2013 IBUPROFEN 74305108405 No Longer Active Ang Markham MD Active NITROFURANTOIN MACROCRYSTAL 100 MG CAPS 1 capsule PO bid x 7 days NITROFURANTOIN MACROCRYSTAL 21755024023 No Longer Active Ang Markham MD Active DIFLUCAN 150 MG TAB 1 qODay x 2 doses FLUCONAZOLE 24410764333 No Longer Active Da Romero KNITTING MACHINE OPERATOR HELPER Active CEFTIN 500 MG TAB 1 tablet by mouth twice daily for 7 days 07/24 CEFUROXIME AXETIL 60791680729 No Longer Active Anthony CARBONE Active ZOLOFT 50 MG TAB 1 tablet by mouth daily SERTRALINE HCL 82832670461 No Longer Active Anthony CARBONE Active ANUSOL-HC 2.5 % CREAM apply as needed HYDROCORTISONE (RECTAL) 38017062644 No Longer Active Anthony CARBONE Active COLACE 100 MG CAP 1 tab PO BID DOCUSATE SODIUM 54391737939 No Longer Active Anthony CARBONE Active TRINESSA (28) 0.18/0.215/0.25 MG-35 MCG TABS 1 po qd as directed NORGESTIM-ETH ESTRAD TRIPHASIC 22573273604 No Longer Active Anhtony CARBONE Active [facility] MELATONIN 5 MG TABS 1-2 po qHS PRN Insomnia MELATONIN 12535519817 No Longer Active Anthony CARBONE Active ACYCLOVIR 400 MG TABS ACYCLOVIR 59889687100 No Longer Active Ang Markham MD Active HYDROXYZINE HCL 25 MG TABS 1 tab PO tid PRN itching HYDROXYZINE HCL 34246500442 No Longer Active Ang Markham MD Active DIFLUCAN 150 MG TAB 1 qODay x 2 doses FLUCONAZOLE 23993229814 No Longer Active Da Romero APRN Active ACYCLOVIR 400 MG TABS 1 pill twice daily ACYCLOVIR 82388902113 No Longer Active Da Romero APRN Active AZITHROMYCIN 250 MG TABS 2 po qd x 1 day, then 1 po qd x 4 days AZITHROMYCIN 88217745262 No Longer Active Eri Borges MD PhD Active AZITHROMYCIN 250 MG TABS take 2 po day 1 then take1 po days 2-5 AZITHROMYCIN 68310975761 No Longer Active Octaviano CARBONE Active ACYCLOVIR 400 MG TABS 1 po qd ACYCLOVIR 07769351937 No Longer Active Ang Markham MD Active PROZAC 40 MG CAPS 1 cap by mouth at bedtime FLUOXETINE HCL 98321189500 No Longer Active Ang Markham MD Active HYDROXYZINE HCL 25 MG TABS 1 tab PO tid PRN itching HYDROXYZINE HCL 25 MG TABS 574469 HYDROXYZINE HCL Inactive [facility] MELATONIN 5 MG TABS 1-2 po qHS PRN Insomnia [facility] MELATONIN 5 MG TABS 834789 MELATONIN Inactive TRINESSA (28) 0.18/0.215/0.25 MG-35 MCG TABS 1 po qd as directed TRINESSA (28) 0.18/0.215/0.25 MG-35 MCG TABS 086871 NORGESTIM-ETH ESTRAD TRIPHASIC Inactive COLACE 100 MG CAP 1 tab PO BID COLACE 100 MG CAP 3116878 DOCUSATE SODIUM Inactive ANUSOL-HC 2.5 % CREAM apply as needed ANUSOL-HC 2.5 % CREAM 647784 HYDROCORTISONE (RECTAL) Inactive ZOLOFT 50 MG TAB 1 tablet by mouth daily ZOLOFT 50 MG TAB 241124 SERTRALINE HCL Inactive CEFTIN 500 MG TAB 1 tablet by mouth twice daily for 7 days 07/24 CEFTIN 500 MG TAB 049636 CEFUROXIME AXETIL Inactive NITROFURANTOIN MACROCRYSTAL 100 MG CAPS 1 capsule PO bid x 7 days NITROFURANTOIN MACROCRYSTAL 100 MG CAPS 8785896 NITROFURANTOIN MACROCRYSTAL Inactive IBUPROFEN 800 MG TABS 1 tab every 8 hours as needed for pain 2013 IBUPROFEN 800 MG TABS 329421 IBUPROFEN Inactive COLACE 100 MG CAP 1 po BID PRN Constipation COLACE 100 MG CAP 2550852 DOCUSATE SODIUM Inactive MELOXICAM 15 MG TABS 1 po qd PRN Knee Pain MELOXICAM 15 MG TABS 988827 MELOXICAM Inactive LEVEMIR FLEXPEN 100 UNIT/ML SOLN 40 units SC at bedtime LEVEMIR FLEXPEN 100 UNIT/ML SOLN INSULIN DETEMIR Inactive GENTAMICIN SULFATE 0.1 % EXT OINT Apply to open sores once a day. GENTAMICIN SULFATE 0.1 % EXT OINT 501964 GENTAMICIN SULFATE Inactive EMBRACE BLOOD GLUCOSE TEST STRP Test blood sugars 4 times daily and PRN 08/05 EMBRACE BLOOD GLUCOSE TEST STRP GLUCOSE BLOOD Inactive ACYCLOVIR 400 MG TABS 1 po qd ACYCLOVIR 400 MG TABS 19720928 ACYCLOVIR Inactive AZITHROMYCIN 250 MG TABS take 2 po day 1 then take1 po days 2-5 AZITHROMYCIN 250 MG TABS 2526507 AZITHROMYCIN Inactive AZITHROMYCIN 250 MG TABS 2 po qd x 1 day, then 1 po qd x 4 days AZITHROMYCIN 250 MG TABS 8799790 AZITHROMYCIN Inactive ACYCLOVIR 400 MG TABS 1 pill twice daily ACYCLOVIR 400 MG TABS 19720928 ACYCLOVIR Inactive DIFLUCAN 150 MG TAB 1 qODay x 2 doses DIFLUCAN 150 MG TAB 644391 FLUCONAZOLE Inactive ACYCLOVIR 400 MG TABS ACYCLOVIR 400 MG TABS 19720928 ACYCLOVIR Inactive DIFLUCAN 150 MG TAB 1 qODay x 2 doses DIFLUCAN 150 MG TAB 795697 FLUCONAZOLE Inactive BACTRIM DS 800-160 MG TAB 1 tab by mouth twice daily BACTRIM DS 800-160 MG TAB 178957 TRIMETHOPRIM-SULFAMETHOXAZOLE Inactive Advance Directives Directive Description Start [...] HGBA1C - Chemistry sodium, serum 134 mmol/L 755-451 5319/03/16 carbon dioxide, venous blood 34.5 mmol/L 21.0-32.0 potassium, serum 4.6 mmol/L 3.5-5.2 chloride, serum 93 mmol/L 98-107 blood glucose 408 mg/dL 65-110 urea nitrogen, blood 3 mg/dL 7-18 creatinine, serum 0.58 mg/dL 0.55-1.30 alanine aminotransferase (SGPT), serum 11 U/L 12-78 aspartate aminotransferase (SGOT), serum 8 U/L 15-37 calcium, serum 9.2 mg/dL 8.5-10.1 bilirubin, serum, total 0.30 mg/dL 0.00-1.00 cholesterol, serum 195 mg/dL 223-662 2188/03/16 triglyceride, serum, fasting 138 mg/dL 30-200 HDL [...] dipstick Negative Negative sodium, serum 133 mmol/L 093-818 5772/06/03 carbon dioxide, venous blood 33.4 mmol/L 21.0-32.0 [...] pH, urine, semiquantitative 5.5 5.0-8.5 Lab Report: [facility] [place] Chemistry human chorionic gonadotropin, urine, qualitative (urine test) Negative Negative Office Visit: Diabetes Visit - Chemistry cholesterol, target level 200 mg/dL triglyceride, target level 200 mg/dL HDL cholesterol, serum, target level 35 mg/dL LDL target level 100 mg/dL home glucose monitor utilized Yes Encounters Code Encounter Date Provider Facility CPT-97942 Level 3 Est. Patient 13:51:24 CDT Ang Markham MD [facility] CPT-78400 Level 3 Est. Patient 18:42:15 CDT Gabriel Hunt DO [facility] CPT-80182 Level 5 Est. Patient 14:40:14 CDT Celestine PEARCE [facility] CPT-97556 Level 4 Est. Patient 14:36:17 CDT Ang Markham MD [facility] CPT-88498 Level 3 Est. 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 Patient 11:59:20 TRADE MANAGER Gloria Dunbar [facility] CPT-92678 Level 3 Est. Patient 17:32:37 TRADE MANAGER Gloria Dunbar [facility] CPT-33267 Level 4 Est. Patient 16:39:07 CDT Ang Markham MD [facility] CPT-66488 Level 3 Est. Patient 16:35:50 CDT Ang Markham MD [facility] CPT-35370 Level 4 Est. Patient 13:53:06 TRADE MANAGER Ang Markham MD [facility] CPT-16908 Level 3 Est. Patient 08:58:08 TRADE MANAGER Ang Markham MD [facility] CPT-22150 Level 3 Est. Patient 18:48:29 CDT Anthony Whitfield [facility] CPT-84017 Level 3 Est. Patient 12:16:59 CDT Gabriel Hunt DO [facility] CPT-87917 Level 3 Est. Patient 18:57:15 CDT Anthony Whitfield [facility] CPT-32033 Level 3 Est. Patient 13:59:22 TRADE MANAGER Ang Markham MD [facility] CPT-15295 Level 4 Est. Patient 10:36:08 TRADE MANAGER Ang Markham MD [facility] CPT-61877 Level 3 Est. Patient 16:27:02 CDT Eri Borges MD PhD [facility] CPT-09700 Level 3 Est. Patient 10:36:43 CDT Octaviano Dempsey [facility] CPT-09287 Level 4 New Patient 08:58:06 CDT Ang Markham MD [facility] Procedures Code Procedure Name Date Entry Date Standard Description CPT-82496 Abd compl w upright - XRAY USE ONLY 14:09:39 CDT 02/28 CPT-32564 Venipuncture Draw Fee 12:25:15 CDT CPT-55922 Knee 3V 16:48:40 CDT CPT-OV Office Visit 16:27:13 CDT CPT-OV Office Visit 16:21:19 CDT CPT-20855 Sono pelvis non OB uterus ovaries cervix 09:37:28 CDT
--- OUTSIDE RECORDS SUMMARY | 2018-12-22 02:26 | XMS REPORT | Clinical Summary ---
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 INSULIN DEGLUDEC 25740083011 No Longer Active Conner Hills MD Active METFORMIN HCL 1000 MG TABS 1 tablet by mouth twice daily METFORMIN HCL 40088047429 No Longer Active Conner Hills MD Active LIPITOR 40 MG TAB 1 po qHS ATORVASTATIN CALCIUM 90025824872 No Longer Active Conner Hills MD Active GEMFIBROZIL 600 MG TABS 1 po BID GEMFIBROZIL 80340155515 No Longer Active Conner Hills MD Active CORTISPORIN 3.5-22689-7 SOLN 4gtts in affected ear QID x 7 days [id number] 37496513910 No Longer Active Ang Markham MD Active LEVEMIR FLEXTOUCH 100 UNIT/ML SC SOPN 35 units SC at 12-1pm, 35 units 12-1am INSULIN DETEMIR 10434896805 No Longer Active Celestine PEARCE Active REGLAN 10 MG TAB 0.5 po TID 30min prior to meals METOCLOPRAMIDE HCL 67648286749 Active Ang Markham MD Active ZANTAC 150 MG TAB 1 po BID RANITIDINE HCL 49654059294 Active Ang Markham MD Active COLACE 100 MG CAP 1 po daily DOCUSATE SODIUM 94699249167 Active Gabriel Hunt DO Active NOVOLOG FLEXPEN 100 UNIT/ML SOPN Take 20 units TID with meals, plus 2u/50 for blood sugars above 150. Ratio vs. Carbs INSULIN ASPART 30614552918 Active Gabriel Hunt DO Active BD PEN NEEDLE DINESH U/F 32G X 4 MM MISC 5 a day INSULIN PEN NEEDLE 88880103703 Active Celestine Ziglari PATIENT BILLER Active EMBRACE BLOOD GLUCOSE TEST STRP Test blood sugars 4 times daily and PRN 08/05 GLUCOSE BLOOD 84981678562 No Longer Active Maliheh Ziglari PATIENT BILLER Active TRUEPLUS LANCETS 30G MISC 4 a day LANCETS 20708872703 Active Maliheh Ziglari PATIENT BILLER Active TRUETEST TEST STRP check blood sugars 4x/day GLUCOSE BLOOD 76144698494 Active Maliheh Ziglari PATIENT BILLER Active TRUERESULT BLOOD GLUCOSE W/DEVICE KIT check blood sugars 4x a day BLOOD GLUCOSE MONITORING SUPPL 19887456797 Active Malstepheneh Ziglari PATIENT BILLER Active LISINOPRIL 5 MG TABS 1 po qd LISINOPRIL 52783769166 Active Ang Markham MD Active PAXIL 20 MG TAB 1 tablet by mouth daily PAROXETINE HCL 58943264659 Active Ang Markham MD Active GENTAMICIN SULFATE 0.1 % EXT OINT Apply to open sores once a day. GENTAMICIN SULFATE 66448920253 No Longer Active Ang Markham MD Active ZOLPIDEM TARTRATE 10 MG TABS 1 po qHS PRN Insomnia ZOLPIDEM TARTRATE 86233739108 Active Ang Markham MD Active BACTRIM DS 800-160 MG TAB 1 tab by mouth twice daily TRIMETHOPRIM-SULFAMETHOXAZOLE 06952931815 No Longer Active Gloria Goveaharlan BLOW MOLDER Active LEVEMIR FLEXPEN 100 UNIT/ML SOLN 40 units SC at bedtime INSULIN DETEMIR No Longer Active Susan Arellano RMA Active INSUPEN ULTRAFIN 31G X 6 MM MISC Use with insulin qid. DX: E11.9 INSULIN PEN NEEDLE 27472698530 Active Ang Markham MD Active ZOLOFT 100 MG TAB 1 po qHS SERTRALINE HCL 67121035074 No Longer Active Ang Markham MD Active MELOXICAM 15 MG TABS 1 po qd PRN Knee Pain MELOXICAM 85819179972 No Longer Active Ang Markham MD Active CYCLOBENZAPRINE HCL 5 MG TABS 1 po qHS PRN Muscle pain CYCLOBENZAPRINE HCL 85443894235 Active Ang Markham MD Active COLACE 100 MG CAP 1 po BID PRN Constipation DOCUSATE SODIUM 20414420902 No Longer Active Ang Markham MD Active HYDROXYZINE HCL 25 MG TAB 1 TID PRN nerves HYDROXYZINE HCL 32210266921 Active Ang Markham MD Active IBUPROFEN 800 MG TABS 1 tab every 8 hours as needed for pain 2013 IBUPROFEN 25983294166 No Longer Active Ang Markham MD Active NITROFURANTOIN MACROCRYSTAL 100 MG CAPS 1 capsule PO bid x 7 days NITROFURANTOIN MACROCRYSTAL 96175474776 No Longer Active Ang Markham MD Active DIFLUCAN 150 MG TAB 1 qODay x 2 doses FLUCONAZOLE 87597725337 No Longer Active Da Romero APRN Active CEFTIN 500 MG TAB 1 tablet by mouth twice daily for 7 days 07/24 CEFUROXIME AXETIL 02224653550 No Longer Active Anthony CARBONE Active ZOLOFT 50 MG TAB 1 tablet by mouth daily SERTRALINE HCL 15745907604 No Longer Active Anthony CARBONE Active ANUSOL-HC 2.5 % CREAM apply as needed HYDROCORTISONE (RECTAL) 01870791415 No Longer Active Anthony CARBONE Active COLACE 100 MG CAP 1 tab PO BID DOCUSATE SODIUM 96491481447 No Longer Active Anthony CARBONE Active TRINESSA (28) 0.18/0.215/0.25 MG-35 MCG TABS 1 po qd as directed NORGESTIM-ETH ESTRAD TRIPHASIC 79148881496 No Longer Active Anthony CARBONE Active [facility] MELATONIN 5 MG TABS 1-2 po qHS PRN Insomnia MELATONIN 84379009010 No Longer Active Anthony CARBONE Active ACYCLOVIR 400 MG TABS ACYCLOVIR 63365873137 No Longer Active Ang Markham MD Active HYDROXYZINE HCL 25 MG TABS 1 tab PO tid PRN itching HYDROXYZINE HCL 52650661160 No Longer Active Ang Markham MD Active DIFLUCAN 150 MG TAB 1 qODay x 2 doses FLUCONAZOLE 88956698446 No Longer Active Da Romero APRN Active ACYCLOVIR 400 MG TABS 1 pill twice daily ACYCLOVIR 74383492464 No Longer Active Jillina Nick OSHEA Active AZITHROMYCIN 250 MG TABS 2 po qd x 1 day, then 1 po qd x 4 days AZITHROMYCIN 48525469693 No Longer Active Eri Borges MD PhD Active AZITHROMYCIN 250 MG TABS take 2 po day 1 then take1 po days 2-5 AZITHROMYCIN 23932068371 No Longer Active Octaviano CARBONE Active ACYCLOVIR 400 MG TABS 1 po qd ACYCLOVIR 84577762106 No Longer Active Ang Markham MD Active PROZAC 40 MG CAPS 1 cap by mouth at bedtime FLUOXETINE HCL 19446308374 No Longer Active Ang Markham MD Active HYDROXYZINE HCL 25 MG TABS 1 tab PO tid PRN itching HYDROXYZINE HCL 25 MG TABS 347627 HYDROXYZINE HCL Inactive [facility] MELATONIN 5 MG TABS 1-2 po qHS PRN Insomnia [facility] MELATONIN 5 MG TABS 932043 MELATONIN Inactive TRINESSA (28) 0.18/0.215/0.25 MG-35 MCG TABS 1 po qd as directed TRINESSA (28) 0.18/0.215/0.25 MG-35 MCG TABS 721081 NORGESTIM-ETH ESTRAD TRIPHASIC Inactive COLACE 100 MG CAP 1 tab PO BID COLACE 100 MG CAP 3862247 DOCUSATE SODIUM Inactive ANUSOL-HC 2.5 % CREAM apply as needed ANUSOL-HC 2.5 % CREAM 662417 HYDROCORTISONE (RECTAL) Inactive ZOLOFT 50 MG TAB 1 tablet by mouth daily ZOLOFT 50 MG TAB 885749 SERTRALINE HCL Inactive CEFTIN 500 MG TAB 1 tablet by mouth twice daily for 7 days 07/24 CEFTIN 500 MG TAB 367355 CEFUROXIME AXETIL Inactive NITROFURANTOIN MACROCRYSTAL 100 MG CAPS 1 capsule PO bid x 7 days NITROFURANTOIN MACROCRYSTAL 100 MG CAPS 8736087 NITROFURANTOIN MACROCRYSTAL Inactive IBUPROFEN 800 MG TABS 1 tab every 8 hours as needed for pain 2013 IBUPROFEN 800 MG TABS 403645 IBUPROFEN Inactive COLACE 100 MG CAP 1 po BID PRN Constipation COLACE 100 MG CAP 4502119 DOCUSATE SODIUM Inactive MELOXICAM 15 MG TABS 1 po qd PRN Knee Pain MELOXICAM 15 MG TABS 857947 MELOXICAM Inactive LEVEMIR FLEXPEN 100 UNIT/ML SOLN 40 units SC at bedtime LEVEMIR FLEXPEN 100 UNIT/ML SOLN INSULIN DETEMIR Inactive GENTAMICIN SULFATE 0.1 % EXT OINT Apply to open sores once a day. GENTAMICIN SULFATE 0.1 % EXT OINT 405178 GENTAMICIN SULFATE Inactive EMBRACE BLOOD GLUCOSE TEST STRP Test blood sugars 4 times daily and PRN 08/05 EMBRACE BLOOD GLUCOSE TEST STRP GLUCOSE BLOOD Inactive LEVEMIR FLEXTOUCH 100 UNIT/ML SC SOPN 35 units SC at 12-1pm, 35 units 12-1am LEVEMIR FLEXTOUCH 100 UNIT/ML SC SOPN INSULIN DETEMIR Inactive CORTISPORIN 3.5-68493-0 SOLN 4gtts in affected ear QID x 7 days CORTISPORIN 3.5-95837-8 SOLN 671591 [id number] Inactive GEMFIBROZIL 600 MG TABS 1 po BID GEMFIBROZIL 600 MG TABS 529849 GEMFIBROZIL Inactive LIPITOR 40 MG TAB 1 po qHS LIPITOR 40 MG TAB 817834 ATORVASTATIN CALCIUM Inactive METFORMIN HCL 1000 MG TABS 1 tablet by mouth twice daily METFORMIN HCL 1000 MG TABS 520166 METFORMIN HCL Inactive TRESIBA FLEXTOUCH 200 UNIT/ML SC SOPN Take 70 units daily at mid-night to 1 am. TRESIBA FLEXTOUCH 200 UNIT/ML SC SOPN INSULIN DEGLUDEC Inactive DOXEPIN HCL 10 MG CAP 1 tablet nightly for the itch DOXEPIN HCL 10 MG CAP 6358361 DOXEPIN HCL Inactive LEVAQUIN 500 MG TABS 1 daily for infection LEVAQUIN 500 MG TABS 120387 LEVOFLOXACIN Inactive ACYCLOVIR 400 MG TABS 1 po qd ACYCLOVIR 400 MG TABS 190123 ACYCLOVIR Inactive AZITHROMYCIN 250 MG TABS take 2 po day 1 then take1 po days 2-5 AZITHROMYCIN 250 MG TABS 5715539 AZITHROMYCIN Inactive AZITHROMYCIN 250 MG TABS 2 po qd x 1 day, then 1 po qd x 4 days AZITHROMYCIN 250 MG TABS 1330087 AZITHROMYCIN Inactive ACYCLOVIR 400 MG TABS 1 [...] Panel - Chemistry sodium, serum 130 mmol/L 202-191 5016/10/12 carbon dioxide, venous blood 28.1 mmol/L 21.0-32.0 potassium, serum 3.9 mmol/L 3.5-5.2 chloride, serum 91 mmol/L 98-107 blood glucose 547 mg/dL 65-110 urea nitrogen, blood 3 mg/dL 7-18 creatinine, serum 0.78 mg/dL 0.55-1.30 alanine aminotransferase (SGPT), serum 11 U/L 12-78 aspartate aminotransferase (SGOT), serum 7 U/L 15-37 calcium, serum 8.8 mg/dL 8.5-10.1 bilirubin, serum, total 0.30 mg/dL 0.00-1.00 cholesterol, serum 221 mg/dL 696-437 8015/10/12 triglyceride, serum, fasting 590 mg/dL 30-200 HDL cholesterol, serum 45 mg/dL 32-96 LDL cholesterol, serum 58 mg/dL 0-130 Lab Report: HGBA1C - Chemistry hemoglobin A1C, blood, as % of total hemoglobin 11.4 % 4.3-6.0 Lab Report: UADIP W/MICRO, AUTO, CBC W/DIFF, Comp. Metabolic Panel - Chemistry RBC, urine, dipstick Negative Negative sodium, serum 133 mmol/L 670-719 0319/06/03 carbon dioxide, venous blood 33.4 mmol/L 21.0-32.0 [...] urine, semiquantitative Negative Negative Lab Report: [facility] [place] Chemistry human chorionic gonadotropin, urine, qualitative [...] mg/dL Encounters Code Encounter Date Provider Facility CPT-92351 Level 3 Est. Patient 10:22:30 CDT Conner Hills MD [facility] CPT-57696 Level 3 Est. Patient 15:02:19 CDT Shreya Velazquez [facility] CPT-36057 Level 3 Est. Patient 13:22:25 CDT Gabriel Hunt [facility] CPT-86324 Level 4 Est. Patient 16:02:22 CDT Ang Markham MD [facility] CPT-47902 Level 3 Est. Patient 16:21:23 CDT Celestine Sierraisrael [facility] CPT-15040 Level 3 Est. Patient 17:02:56 CDT Gabriel Hunt [facility] CPT-88633 Level 3 Est. Patient 14:46:22 CDT Da Romero [facility] CPT-26157 Level 4 Est. Patient 13:55:20 CDT Ang Markham MD [facility] CPT-99651 Level 4 Est. Patient 16:10:09 CDT Celestine Huerta [facility] CPT-45391 Level 3 Est. Patient 13:51:24 CDT Ang Markham MD [facility] CPT-70469 Level 3 Est. Patient 18:42:15 CDT Gabriel Hunt [facility] CPT-25276 Level 5 Est. Patient 14:40:14 CDT Celestine Huerta [facility] CPT-47587 Level 4 Est. Patient 14:36:17 CDT Ang Markham MD [facility] CPT-64592 Level 3 Est. 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 Patient 11:59:20 SUPERVISOR [employer]IVER[employer] Gloria Dunbar [facility] CPT-34639 Level 3 Est. Patient 17:32:37 SUPERVISOR [employer]IVER[employer] Gloria Dunbar [facility] CPT-74083 Level 4 Est. Patient 16:39:07 CDT Ang Markham MD [facility] CPT-18739 Level 3 Est. Patient 16:35:50 CDT Ang Markham MD [facility] CPT-11783 Level 4 Est. Patient 13:53:06 SUPERVISOR [employer]SP[employer]IVER[employer] Ang Markham MD [facility] CPT-55302 Level 3 Est. 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 Patient 18:48:29 CDT Anthony Whitfield [facility] CPT-74819 Level 3 Est. Patient 12:16:59 CDT Gabriel Hunt DO [facility] CPT-21780 Level 3 Est. Patient 18:57:15 CDT Anthony Whitfield [facility] CPT-56631 Level 3 Est. Patient 13:59:22 SUPERVISOR NEWSP[employer]IVER[employer] Ang Markham MD [facility] CPT-05538 Level 4 Est. Patient 10:36:08 SUPERVISOR NEWSPAP[employer] DELIVERIES Ang Markham MD [facility] CPT-34921 Level 3 Est. Patient 16:27:02 CDT Eri Borges MD PhD [facility] CPT-57856 Level 3 Est. Patient 10:36:43 CDT Octaviano Dempsey [facility] CPT-73379 Level 4 New Patient 08:58:06 CDT Ang Markham MD [facility] Procedures Code Procedure Name Date Entry Date Standard Description CPT-69464 LS spine comp w obliques - XRAY USE ONLY 15:34:48 CDT CPT-29093 Lipid - LAB USE ONLY 15:28:39 CDT CPT-69178 CMP - LAB USE ONLY 15:28:39 CDT CPT-98927 Venipuncture Draw Fee 15:28:39 CDT CPT-89520 Abd compl w upright - XRAY USE ONLY 14:09:39 CDT 02/28 CPT-74951 Venipuncture Draw Fee 12:25:15 CDT CPT-47278 Knee 3V 16:48:40 CDT CPT-OV Office Visit 16:27:13 CDT CPT-OV Office Visit 16:21:19 CDT CPT-28806 Sono pelvis non OB uterus ovaries cervix 09:37:28 CDT
--- OUTSIDE RECORDS SUMMARY | 2018-12-22 02:27 | XMS REPORT | Clinical Summary ---
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], not stated as uncontrolled snf use 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 V58.67 Resolved Ang [...] unspecified hyperlipidemia Hematochezia 578.1 Active Jisteph Romero COMMUNITY ASSOCIATE Blood in stool Nausea 787.02 Active Jillina Franayal COMMUNITY ASSOCIATE Nausea alone Otitis externa, acute, left 380.12 [...] with hypoglycemia ICD-250.81 Inactive Ang Markham MD snf use 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 ICD-V58.67 Inactive Ang Markham MD Medication List Medication Instructions Start Date Stop Date Generic Name NDC Status Provider Patient Instruction CORTISPORIN 3.5-25680-2 SOLN 4gtts in affected ear QID x 7 days [id number] Active Gabriel Hunt DO Active LEVEMIR FLEXTOUCH 100 UNIT/ML SC SOPN 35 units SC at 12-1pm, 35 units 12-1am INSULIN DETEMIR 68542299244 Active Ang Markham MD Active DOXEPIN HCL 10 MG CAP 1 tablet nightly for the itch DOXEPIN HCL 56548676034 Active Gabriel Hunt DO Active COLACE 100 MG CAP 1 po daily DOCUSATE SODIUM 35452545686 Wiley Hunt DO Active NOVOLOG FLEXPEN 100 UNIT/ML SOPN Take 20 units TID with meals, plus 2u/50 for blood sugars above 150. Ratio vs. Carbs INSULIN ASPART 26812836266 Active Gabriel Hunt DO Active BD PEN NEEDLE DINESH U/F 32G X 4 MM MISC 5 a day INSULIN PEN NEEDLE 07902791617 Active Celestine Sierraglari SUPERVISOR TOWER Active EMBRACE BLOOD GLUCOSE TEST STRP Test blood sugars 4 times daily and PRN 08/05 GLUCOSE BLOOD 64915113400 No Longer Active Celestine Sierraglari SUPERVISOR TOWER Active TRUEPLUS LANCETS 30G MISC 4 a day LANCETS 74737550089 Active Celestine Sierraglari SUPERVISOR TOWER Active TRUETEST TEST STRP check blood sugars 4x/day GLUCOSE BLOOD 07036508596 Active Celestine Sierraglari SUPERVISOR TOWER Active TRUERESULT BLOOD GLUCOSE W/DEVICE KIT check blood sugars 4x a day BLOOD GLUCOSE MONITORING SUPPL 73357606139 Active Celestine Sierraglari SUPERVISOR TOWER Active LISINOPRIL 5 MG TABS 1 po qd LISINOPRIL 93838809267 Active Ang Markham MD Active PAXIL 20 MG TAB 1 tablet by mouth daily PAROXETINE HCL 26678050656 Active Ang Markham MD Active GENTAMICIN SULFATE 0.1 % EXT OINT Apply to open sores once a day. GENTAMICIN SULFATE 86412177793 No Longer Active Ang Markham MD Active ZOLPIDEM TARTRATE 10 MG TABS 1 po qHS PRN Insomnia ZOLPIDEM TARTRATE 78213059298 Active Ang Markham MD Active BACTRIM DS 800-160 MG TAB 1 tab by mouth twice daily TRIMETHOPRIM-SULFAMETHOXAZOLE 01611700934 No Longer Active Gloria Dunbar COMMUNITY ASSOCIATE Active LEVEMIR FLEXPEN 100 UNIT/ML SOLN 40 units SC at bedtime INSULIN DETEMIR No Longer Active Susan Arellano RMA Active INSUPEN ULTRAFIN 31G X 6 MM MISC Use with insulin qid. DX: E11.9 INSULIN PEN NEEDLE 67246585890 Active Ang Markham MD Active ZOLOFT 100 MG TAB 1 po qHS SERTRALINE HCL 19756189473 No Longer Active Ang Markham MD Active MELOXICAM 15 MG TABS 1 po qd PRN Knee Pain MELOXICAM 53955334888 No Longer Active Ang Markham MD Active LIPITOR 40 MG TAB 1 po qHS ATORVASTATIN CALCIUM 04779599038 Active Ang Markham MD Active METFORMIN HCL 1000 MG TABS 1 tablet by mouth twice daily METFORMIN HCL 09220167063 Active Ang Markham MD Active CYCLOBENZAPRINE HCL 5 MG TABS 1 po qHS PRN Muscle pain CYCLOBENZAPRINE HCL 44675302683 Active Ang Markham MD Active COLACE 100 MG CAP 1 po BID PRN Constipation DOCUSATE SODIUM 34453356471 No Longer Active Ang Markham MD Active HYDROXYZINE HCL 25 MG TAB 1 TID PRN nerves HYDROXYZINE HCL 80051003901 Active Ang Markham MD Active IBUPROFEN 800 MG TABS 1 tab every 8 hours as needed for pain 2013 IBUPROFEN 95561231860 No Longer Active Ang Markham MD Active NITROFURANTOIN MACROCRYSTAL 100 MG CAPS 1 capsule PO bid x 7 days NITROFURANTOIN MACROCRYSTAL 73705416344 No Longer Active Ang Markham MD Active DIFLUCAN 150 MG TAB 1 qODay x 2 doses FLUCONAZOLE 46831114910 No Longer Active Da Romero APRN Active CEFTIN 500 MG TAB 1 tablet by mouth twice daily for 7 days 07/24 CEFUROXIME AXETIL 01094745433 No Longer Active Anthony CARBONE Active ZOLOFT 50 MG TAB 1 tablet by mouth daily SERTRALINE HCL 25252064414 No Longer Active Anthony CARBONE Active ANUSOL-HC 2.5 % CREAM apply as needed HYDROCORTISONE (RECTAL) 72716735516 No Longer Active Anthony CARBONE Active COLACE 100 MG CAP 1 tab PO BID DOCUSATE SODIUM 44802700726 No Longer Active Anthony CARBONE Active TRINESSA (28) 0.18/0.215/0.25 MG-35 MCG TABS 1 po qd as directed NORGESTIM-ETH ESTRAD TRIPHASIC 09920074796 No Longer Active Anthony CARBONE Active [facility] MELATONIN 5 MG TABS 1-2 po qHS PRN Insomnia MELATONIN 22669413315 No Longer Active Anthony CARBONE Active ACYCLOVIR 400 MG TABS ACYCLOVIR 16204566858 No Longer Active Ang Markham MD Active HYDROXYZINE HCL 25 MG TABS 1 tab PO tid PRN itching HYDROXYZINE HCL 47820805584 No Longer Active Ang Markham MD Active DIFLUCAN 150 MG TAB 1 qODay x 2 doses FLUCONAZOLE 32575471794 No Longer Active Jillina Frazell COMMUNITY ASSOCIATE Active ACYCLOVIR 400 MG TABS 1 pill twice daily ACYCLOVIR 18291123073 No Longer Active Jillina Frazell COMMUNITY ASSOCIATE Active AZITHROMYCIN 250 MG TABS 2 po qd x 1 day, then 1 po qd x 4 days AZITHROMYCIN 50766521596 No Longer Active Eri Borges MD PhD Active AZITHROMYCIN 250 MG TABS take 2 po day 1 then take1 po days 2-5 AZITHROMYCIN 00608082676 No Longer Active Octaviano CARBONE Active ACYCLOVIR 400 MG TABS 1 po qd ACYCLOVIR 60873489722 No Longer Active Ang Markham MD Active PROZAC 40 MG CAPS 1 cap by mouth at bedtime FLUOXETINE HCL 31637594123 No Longer Active Ang Markham MD Active HYDROXYZINE HCL 25 MG TABS 1 tab PO tid PRN itching HYDROXYZINE HCL 25 MG TABS 473086 HYDROXYZINE HCL Inactive [facility] MELATONIN 5 MG TABS 1-2 po qHS PRN Insomnia [facility] MELATONIN 5 MG TABS 672417 MELATONIN Inactive TRINESSA (28) 0.18/0.215/0.25 MG-35 MCG TABS 1 po qd as directed TRINESSA (28) 0.18/0.215/0.25 MG-35 MCG TABS 691229 NORGESTIM-ETH ESTRAD TRIPHASIC Inactive COLACE 100 MG CAP 1 tab PO BID COLACE 100 MG CAP 9954002 DOCUSATE SODIUM Inactive ANUSOL-HC 2.5 % CREAM apply as needed ANUSOL-HC 2.5 % CREAM 126266 HYDROCORTISONE (RECTAL) Inactive ZOLOFT 50 MG TAB 1 tablet by mouth daily ZOLOFT 50 MG TAB 909419 SERTRALINE HCL Inactive CEFTIN 500 MG TAB 1 tablet by mouth twice daily for 7 days 07/24 CEFTIN 500 MG TAB 684125 CEFUROXIME AXETIL Inactive NITROFURANTOIN MACROCRYSTAL 100 MG CAPS 1 capsule PO bid x 7 days NITROFURANTOIN MACROCRYSTAL 100 MG CAPS 4392638 NITROFURANTOIN MACROCRYSTAL Inactive IBUPROFEN 800 MG TABS 1 tab every 8 hours as needed for pain 2013 IBUPROFEN 800 MG TABS 133379 IBUPROFEN Inactive COLACE 100 MG CAP 1 po BID PRN Constipation COLACE 100 MG CAP 6704766 DOCUSATE SODIUM Inactive MELOXICAM 15 MG TABS 1 po qd PRN Knee Pain MELOXICAM 15 MG TABS 933650 MELOXICAM Inactive LEVEMIR FLEXPEN 100 UNIT/ML SOLN 40 units SC at bedtime LEVEMIR FLEXPEN 100 UNIT/ML SOLN INSULIN DETEMIR Inactive GENTAMICIN SULFATE 0.1 % EXT OINT Apply to open sores once a day. GENTAMICIN SULFATE 0.1 % EXT OINT 478198 GENTAMICIN SULFATE Inactive EMBRACE BLOOD GLUCOSE TEST STRP Test blood sugars 4 times daily and PRN 08/05 EMBRACE BLOOD GLUCOSE TEST STRP GLUCOSE BLOOD Inactive ACYCLOVIR 400 MG TABS 1 po qd ACYCLOVIR 400 MG TABS 19720928 ACYCLOVIR Inactive AZITHROMYCIN 250 MG TABS take 2 po day 1 then take1 po days 2-5 AZITHROMYCIN 250 MG TABS 6160282 AZITHROMYCIN Inactive AZITHROMYCIN 250 MG TABS 2 po qd x 1 day, then 1 po qd x 4 days AZITHROMYCIN 250 MG TABS 8090009 AZITHROMYCIN Inactive ACYCLOVIR 400 MG TABS 1 pill twice daily ACYCLOVIR 400 MG TABS 19720928 ACYCLOVIR Inactive DIFLUCAN 150 MG TAB 1 qODay x 2 doses DIFLUCAN 150 MG TAB 19760606 FLUCONAZOLE Inactive ACYCLOVIR 400 MG TABS ACYCLOVIR 400 MG TABS 19720928 ACYCLOVIR Inactive DIFLUCAN 150 MG TAB 1 qODay x 2 doses DIFLUCAN 150 MG TAB 689456 FLUCONAZOLE Inactive BACTRIM DS 800-160 MG TAB 1 tab by mouth twice daily BACTRIM DS 800-160 MG TAB 627300 TRIMETHOPRIM-SULFAMETHOXAZOLE Inactive Advance Directives Directive Description Start [...] HGBA1C - Chemistry sodium, serum 134 mmol/L 496-415 4611/03/16 carbon dioxide, venous blood 34.5 mmol/L 21.0-32.0 potassium, serum 4.6 mmol/L 3.5-5.2 chloride, serum 93 mmol/L 98-107 blood glucose 408 mg/dL 65-110 urea nitrogen, blood 3 mg/dL 7-18 creatinine, serum 0.58 mg/dL 0.55-1.30 alanine aminotransferase (SGPT), serum 11 U/L 12-78 aspartate aminotransferase (SGOT), serum 8 U/L 15-37 calcium, serum 9.2 mg/dL 8.5-10.1 bilirubin, serum, total 0.30 mg/dL 0.00-1.00 cholesterol, serum 195 mg/dL 271-334 5579/03/16 triglyceride, serum, fasting 138 mg/dL 30-200 HDL [...] Panel - Chemistry sodium, serum 133 mmol/L 503-605 1154/06/03 carbon dioxide, venous blood 33.4 mmol/L 21.0-32.0 [...] semiquantitative 5.5 5.0-8.5 [place] Report[place] [facility] [place] human chorionic gonadotropin, urine, qualitative [...] Yes Encounters Code Encounter Date Provider Facility CPT-60685 Level 3 Est. Patient 17:02:56 CDT Gabriel Ramos [facility] CPT-41064 Level 3 Est. Patient 14:46:22 CDT [facility] CPT-38450 Level 4 Est. Patient 13:55:20 CDT Ang Markham MD [facility] CPT-77720 Level 4 Est. Patient 16:10:09 CDT Celestine Huerta [facility] CPT-90680 Level 3 Est. Patient 13:51:24 CDT Ang Markham MD [facility] CPT-52240 Level 3 Est. Patient 18:42:15 CDT Gabriel Hunt [facility] CPT-61843 Level 5 Est. Patient 14:40:14 CDT Celestine Huerta [facility] CPT-55030 Level 4 Est. Patient 14:36:17 CDT Ang Markham MD [facility] CPT-82110 Level 3 Est. Patient 11:13:47 BLEACH MAKER Ang Markham MD [facility] CPT-46696 Level 3 Est. Patient 11:59:20 BLEACH MAKER [facility] CPT-29278 Level 3 Est. Patient 17:32:37 BLEACH MAKER [facility] CPT-98039 Level 4 Est. Patient 16:39:07 CDT Ang Markham MD [facility] CPT-24218 Level 3 Est. Patient 16:35:50 CDT Ang Markham MD [facility] CPT-45713 Level 4 Est. Patient 13:53:06 BLEACH MAKER Ang Markham MD [facility] CPT-62603 Level 3 Est. Patient 08:58:08 BLEACH MAKER Ang Markham MD [facility] CPT-00978 Level 3 Est. Patient 18:48:29 CDT Anthony Whitfield [facility] CPT-84926 Level 3 Est. Patient 12:16:59 CDT Gabriel Hunt DO [facility] CPT-72245 Level 3 Est. Patient 18:57:15 CDT Anthony Whitfield [facility] CPT-23556 Level 3 Est. Patient 13:59:22 BLEACH MAKER Ang Markham MD [facility] CPT-91742 Level 4 Est. Patient 10:36:08 BLEACH MAKER Ang Markham MD [facility] CPT-95351 Level 3 Est. Patient 16:27:02 CDT Eri Borges MD PhD [facility] CPT-89216 Level 3 Est. Patient 10:36:43 CDT Octaviano Roselyn [facility] CPT-37728 Level 4 New Patient 08:58:06 CDT Ang Markham MD [facility] Procedures Code Procedure Name Date Entry Date Standard Description CPT-44472 Abd compl w upright - XRAY USE ONLY 14:09:39 CDT 02/28 CPT-71485 Venipuncture Draw Fee 12:25:15 CDT CPT-93103 Knee 3V 16:48:40 CDT CPT-OV Office Visit 16:27:13 CDT CPT-OV Office Visit 16:21:19 CDT CPT-64783 Sono pelvis non OB uterus ovaries cervix 09:37:28 CDT
--- OUTSIDE RECORDS SUMMARY | 2018-12-22 02:28 | XMS REPORT | Clinical Summary ---
Author Author Admin, E Organization [facility] Address Unknown Phone Unavailable Allergies, [...] stated as uncontrolled Diabetes mellitus 250.00 Active Agn Markham MD Diabetes mellitus without mention [...] I [juvenile type], not stated as uncontrolled manager intermediate use 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 V58.67 Active [...] tablet nightly for the itch DOXEPIN HCL 17469929028 Active Gabriel Ramos Gilbert Active COLACE 100 MG CAP 1 po daily DOCUSATE SODIUM 39921338987 Active Gabriel Hunt DO Active NOVOLOG FLEXPEN 100 UNIT/ML SOPN Take 20 units TID with meals, plus 2u/50 for blood sugars above 150. Ratio vs. Carbs INSULIN ASPART 48716848679 Active Gabriel Hunt DO Active BD PEN NEEDLE DINESH U/F 32G X 4 MM MISC 5 a day INSULIN PEN NEEDLE 74548581110 Active Maliheh Ziglari SWIMMING POOL INSTALLER Active LEVEMIR FLEXTOUCH 100 UNIT/ML SC SOPN 30 units SC at 12-1pm, 30 units 12-1am INSULIN DETEMIR 77351362723 Active Maliheh Ziglari SWIMMING POOL INSTALLER Active EMBRACE BLOOD GLUCOSE TEST STRP Test blood sugars 4 times daily and PRN 08/05 GLUCOSE BLOOD 49392133340 No Longer Active Maliheh Ziglari SWIMMING POOL INSTALLER Active TRUEPLUS LANCETS 30G MISC 4 a day LANCETS 05373591771 Active Maliheh Ziglari SWIMMING POOL INSTALLER Active TRUETEST TEST STRP check blood sugars 4x/day GLUCOSE BLOOD 59501814051 Active Maliheh Ziglari SWIMMING POOL INSTALLER Active TRUERESULT BLOOD GLUCOSE W/DEVICE KIT check blood sugars 4x a day BLOOD GLUCOSE MONITORING SUPPL 74183399518 Active Maliheh Ziglari SWIMMING POOL INSTALLER Active LISINOPRIL 5 MG TABS 1 po qd LISINOPRIL 81383891070 Active Ang Markham MD Active PAXIL 20 MG TAB 1 tablet by mouth daily PAROXETINE HCL 30752365660 Active Ang Markham MD Active GENTAMICIN SULFATE 0.1 % EXT OINT Apply to open sores once a day. GENTAMICIN SULFATE 51528987901 No Longer Active Ang Markham MD Active ZOLPIDEM TARTRATE 10 MG TABS 1 po qHS PRN Insomnia ZOLPIDEM TARTRATE 16706306059 Active Ang Markham MD Active BACTRIM DS 800-160 MG TAB 1 tab by mouth twice daily TRIMETHOPRIM-SULFAMETHOXAZOLE 10897876322 No Longer Active Gloria Dunbar HAND MOLDER Active LEVEMIR FLEXPEN 100 UNIT/ML SOLN 40 units SC at bedtime INSULIN DETEMIR No Longer Active Susan Arellano RMA Active INSUPEN ULTRAFIN 31G X 6 MM MISC Use with insulin qid. DX: E11.9 INSULIN PEN NEEDLE 39550799167 Active Ang Markham MD Active ZOLOFT 100 MG TAB 1 po qHS SERTRALINE HCL 55918465938 No Longer Active Ang Markham MD Active MELOXICAM 15 MG TABS 1 po qd PRN Knee Pain MELOXICAM 97711532356 No Longer Active Ang Markham MD Active LIPITOR 40 MG TAB 1 po qHS ATORVASTATIN CALCIUM 84924590055 Active Ang Markham MD Active METFORMIN HCL 1000 MG TABS 1 tablet by mouth twice daily METFORMIN HCL 31224995316 Active Ang Markham MD Active CYCLOBENZAPRINE HCL 5 MG TABS 1 po qHS PRN Muscle pain CYCLOBENZAPRINE HCL 77507330576 Active Ang Markham MD Active COLACE 100 MG CAP 1 po BID PRN Constipation DOCUSATE SODIUM 20098783600 No Longer Active Ang Markham MD Active HYDROXYZINE HCL 25 MG TAB 1 TID PRN nerves HYDROXYZINE HCL 25697900044 Active Ang Markham MD Active IBUPROFEN 800 MG TABS 1 tab every 8 hours as needed for pain 2013 IBUPROFEN 39728142673 No Longer Active Ang Markham MD Active NITROFURANTOIN MACROCRYSTAL 100 MG CAPS 1 capsule PO bid x 7 days NITROFURANTOIN MACROCRYSTAL 06877120241 No Longer Active Ang Markham MD Active DIFLUCAN 150 MG TAB 1 qODay x 2 doses FLUCONAZOLE 50798149027 No Longer Active Da Romero HAND MOLDER Active CEFTIN 500 MG TAB 1 tablet by mouth twice daily for 7 days 07/24 CEFUROXIME AXETIL 10216397021 No Longer Active Anthony CARBONE Active ZOLOFT 50 MG TAB 1 tablet by mouth daily SERTRALINE HCL 13288976395 No Longer Active Anthony CARBONE Active ANUSOL-HC 2.5 % CREAM apply as needed HYDROCORTISONE (RECTAL) 10432727349 No Longer Active Anthony CARBONE Active COLACE 100 MG CAP 1 tab PO BID DOCUSATE SODIUM 48400981791 No Longer Active Anthony CARBONE Active TRINESSA (28) 0.18/0.215/0.25 MG-35 MCG TABS 1 po qd as directed NORGESTIM-ETH ESTRAD TRIPHASIC 38401396973 No Longer Active Anthony CARBONE Active [facility] MELATONIN 5 MG TABS 1-2 po qHS PRN Insomnia MELATONIN 67113097059 No Longer Active Anthony CARBONE Active ACYCLOVIR 400 MG TABS ACYCLOVIR 85795224082 No Longer Active Ang Markham MD Active HYDROXYZINE HCL 25 MG TABS 1 tab PO tid PRN itching HYDROXYZINE HCL 04014906459 No Longer Active Ang Markham MD Active DIFLUCAN 150 MG TAB 1 qODay x 2 doses FLUCONAZOLE 50524101360 No Longer Active Da Romero APRN Active ACYCLOVIR 400 MG TABS 1 pill twice daily ACYCLOVIR 24569320028 No Longer Active Da Romero APRN Active AZITHROMYCIN 250 MG TABS 2 po qd x 1 day, then 1 po qd x 4 days AZITHROMYCIN 55568219861 No Longer Active Eri Borges MD PhD Active AZITHROMYCIN 250 MG TABS take 2 po day 1 then take1 po days 2-5 AZITHROMYCIN 24554825932 No Longer Active Octaviano CARBONE Active ACYCLOVIR 400 MG TABS 1 po qd ACYCLOVIR 77097409104 No Longer Active Ang Markham MD Active PROZAC 40 MG CAPS 1 cap by mouth at bedtime FLUOXETINE HCL 28786468322 No Longer Active Ang Markham MD Active HYDROXYZINE HCL 25 MG TABS 1 tab PO tid PRN itching HYDROXYZINE HCL 25 MG TABS 227916 HYDROXYZINE HCL Inactive [facility] MELATONIN 5 MG TABS 1-2 po qHS PRN Insomnia [facility] MELATONIN 5 MG TABS 106685 MELATONIN Inactive TRINESSA (28) 0.18/0.215/0.25 MG-35 MCG TABS 1 po qd as directed TRINESSA (28) 0.18/0.215/0.25 MG-35 MCG TABS 344797 NORGESTIM-ETH ESTRAD TRIPHASIC Inactive COLACE 100 MG CAP 1 tab PO BID COLACE 100 MG CAP 1940871 DOCUSATE SODIUM Inactive ANUSOL-HC 2.5 % CREAM apply as needed ANUSOL-HC 2.5 % CREAM 526529 HYDROCORTISONE (RECTAL) Inactive ZOLOFT 50 MG TAB 1 tablet by mouth daily ZOLOFT 50 MG TAB 928173 SERTRALINE HCL Inactive CEFTIN 500 MG TAB 1 tablet by mouth twice daily for 7 days 07/24 CEFTIN 500 MG TAB 695872 CEFUROXIME AXETIL Inactive NITROFURANTOIN MACROCRYSTAL 100 MG CAPS 1 capsule PO bid x 7 days NITROFURANTOIN MACROCRYSTAL 100 MG CAPS 2020704 NITROFURANTOIN MACROCRYSTAL Inactive IBUPROFEN 800 MG TABS 1 tab every 8 hours as needed for pain 2013 IBUPROFEN 800 MG TABS 629762 IBUPROFEN Inactive COLACE 100 MG CAP 1 po BID PRN Constipation COLACE 100 MG CAP 6480625 DOCUSATE SODIUM Inactive MELOXICAM 15 MG TABS 1 po qd PRN Knee Pain MELOXICAM 15 MG TABS 229383 MELOXICAM Inactive LEVEMIR FLEXPEN 100 UNIT/ML SOLN 40 units SC at bedtime LEVEMIR FLEXPEN 100 UNIT/ML SOLN INSULIN DETEMIR Inactive GENTAMICIN SULFATE 0.1 % EXT OINT Apply to open sores once a day. GENTAMICIN SULFATE 0.1 % EXT OINT 304847 GENTAMICIN SULFATE Inactive EMBRACE BLOOD GLUCOSE TEST STRP Test blood sugars 4 times daily and PRN 08/05 EMBRACE BLOOD GLUCOSE TEST STRP GLUCOSE BLOOD Inactive ACYCLOVIR 400 MG TABS 1 po qd ACYCLOVIR 400 MG TABS 19720928 ACYCLOVIR Inactive AZITHROMYCIN 250 MG TABS take 2 po day 1 then take1 po days 2-5 AZITHROMYCIN 250 MG TABS 1452610 AZITHROMYCIN Inactive AZITHROMYCIN 250 MG TABS 2 po qd x 1 day, then 1 po qd x 4 days AZITHROMYCIN 250 MG TABS 0564309 AZITHROMYCIN Inactive ACYCLOVIR 400 MG TABS 1 pill twice daily ACYCLOVIR 400 MG TABS 19720928 ACYCLOVIR Inactive DIFLUCAN 150 MG TAB 1 qODay x 2 doses DIFLUCAN 150 MG TAB 375733 FLUCONAZOLE Inactive ACYCLOVIR 400 MG TABS ACYCLOVIR 400 MG TABS 19720928 ACYCLOVIR Inactive DIFLUCAN 150 MG TAB 1 qODay x 2 doses DIFLUCAN 150 MG TAB 883849 FLUCONAZOLE Inactive BACTRIM DS 800-160 MG TAB 1 tab by mouth twice daily BACTRIM DS 800-160 MG TAB 959851 TRIMETHOPRIM-SULFAMETHOXAZOLE Inactive Advance Directives Directive Description Start [...] HGBA1C - Chemistry sodium, serum 134 mmol/L 373-177 1011/03/16 carbon dioxide, venous blood 34.5 mmol/L 21.0-32.0 potassium, serum 4.6 mmol/L 3.5-5.2 chloride, serum 93 mmol/L 98-107 blood glucose 408 mg/dL 65-110 urea nitrogen, blood 3 mg/dL 7-18 creatinine, serum 0.58 mg/dL 0.55-1.30 alanine aminotransferase (SGPT), serum 11 U/L 12-78 aspartate aminotransferase (SGOT), serum 8 U/L 15-37 calcium, serum 9.2 mg/dL 8.5-10.1 bilirubin, serum, total 0.30 mg/dL 0.00-1.00 cholesterol, serum 195 mg/dL 479-071 7407/03/16 triglyceride, serum, fasting 138 mg/dL 30-200 HDL [...] Yes Encounters Code Encounter Date Provider Facility CPT-88838 Level 3 Est. Patient 13:51:24 CDT Ang Markham MD [facility] CPT-24731 Level 3 Est. Patient 18:42:15 CDT Gabriel Hunt [facility] CPT-90241 Level 5 Est. Patient 14:40:14 CDT Celestine Hoganisrael [facility] CPT-71145 Level 4 Est. Patient 14:36:17 CDT Ang Markham MD [facility] CPT-76739 Level 3 Est. Patient 11:13:47 ANODE MACHINE OPERATOR Ang Markham MD [facility] CPT-59754 Level 3 Est. Patient 11:59:20 ANODE MACHINE OPERATOR Gloria Dunbar [facility] CPT-93453 Level 3 Est. Patient 17:32:37 ANODE MACHINE OPERATOR Gloria Dunbar [facility] CPT-48103 Level 4 Est. Patient 16:39:07 CDT Ang Markham MD [facility] CPT-53980 Level 3 Est. Patient 16:35:50 CDT Ang Markham MD [facility] CPT-66822 Level 4 Est. Patient 13:53:06 ANODE MACHINE OPERATOR Ang Markham MD [facility] CPT-53227 Level 3 Est. Patient 08:58:08 ANODE MACHINE OPERATOR Ang Markham MD [facility] CPT-74421 Level 3 Est. Patient 18:48:29 CDT Anthony Whitfield [facility] CPT-51159 Level 3 Est. Patient 12:16:59 CDT Gabriel Hunt DO [facility] CPT-47991 Level 3 Est. Patient 18:57:15 CDT Anthony Whitfield [facility] CPT-73011 Level 3 Est. Patient 13:59:22 ANODE MACHINE OPERATOR Ang Markham MD [facility] CPT-69756 Level 4 Est. Patient 10:36:08 ANODE MACHINE OPERATOR Ang Markham MD [facility] CPT-77410 Level 3 Est. Patient 16:27:02 CDT Eri Borges MD PhD [facility] CPT-93289 Level 3 Est. Patient 10:36:43 CDT Kellyfaviola Roselyn PA [facility] CPT-45421 Level 4 New Patient 08:58:06 CDT Ang Markham MD [facility] Procedures Code Procedure Name Date Entry Date Standard Description CPT-61454 Abd compl w upright - XRAY USE ONLY 14:09:39 CDT 02/28 CPT-34271 Venipuncture Draw Fee 12:25:15 CDT CPT-14435 Knee 3V 16:48:40 CDT CPT-OV Office Visit 16:27:13 CDT CPT-OV Office Visit 16:21:19 CDT CPT-37200 Sono pelvis non OB uterus ovaries cervix 09:37:28 CDT
--- OUTSIDE RECORDS SUMMARY | 2018-12-22 02:29 | XMS REPORT | Clinical Summary ---
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 ICD-V58.67 Nathan Markham MD Abdominal pain ICD-789.00 Nathan Markham MD Nausea ICD-787.02 Nathan Markham MD 06/26 Otitis externa, acute, left ICD-380.12 Inactive Ang Markham MD Hematochezia ICD-578.1 Inactive Ang Markham MD Medication List Medication Instructions Start Date Stop Date Generic Name NDC Status Provider Patient Instruction COLACE 100 MG CAP 1 po daily DOCUSATE SODIUM 04946763597 No Longer Active Jillina Frazell STERILIZATION SPECIALIST Active CARAFATE 1 GM/10ML ORAL SUSP 5 mg four times daily SUCRALFATE 20666937995 Active Jillina Frazell STERILIZATION SPECIALIST Active ZANTAC 150 MG TAB 1 po BID RANITIDINE HCL 96490082311 No Longer Active Jillina Frazell STERILIZATION SPECIALIST Active HYDROXYZINE HCL 25 MG TAB 1 TID PRN nerves HYDROXYZINE HCL 99145699512 No Longer Active Jillina Frazell STERILIZATION SPECIALIST Active CLINDAMYCIN HCL 300 MG ORAL CAPS 1 four times a day CLINDAMYCIN HCL 97144962945 No Longer Active Jillina Frazell STERILIZATION SPECIALIST Active TYLENOL WITH CODEINE #3 300-30 MG TABS 1 every four hours as needed for pain ACETAMINOPHEN-CODEINE 68280364586 Active Conner Hills MD Active LEVAQUIN 500 MG TABS 1 daily for infection LEVOFLOXACIN 69471087790 No Longer Active Conner Hills MD Active DOXEPIN HCL 10 MG CAP 1 tablet nightly for the itch DOXEPIN HCL 47068990215 No Longer Active Conner Hills MD Active TRESIBA FLEXTOUCH 200 UNIT/ML SC SOPN Take 70 units daily at mid-night to 1 am. INSULIN DEGLUDEC 78748120540 No Longer Active Conner Hills MD Active METFORMIN HCL 1000 MG TABS 1 tablet by mouth twice daily METFORMIN HCL 74720312973 No Longer Active Conner Hills MD Active LIPITOR 40 MG TAB 1 po qHS ATORVASTATIN CALCIUM 73392538382 No Longer Active Conner Hills MD Active GEMFIBROZIL 600 MG TABS 1 po BID GEMFIBROZIL 40501040463 No Longer Active Conner Hills MD Active CORTISPORIN 3.5-13021-3 SOLN 4gtts in affected ear QID x 7 days [id number] 24141069210 No Longer Active Ang Markham MD Active LEVEMIR FLEXTOUCH 100 UNIT/ML SC SOPN 35 units SC at 12-1pm, 35 units 12-1am INSULIN DETEMIR 16040343724 No Longer Active Celestine PEARCE Active REGLAN 10 MG TAB 0.5 po TID 30min prior to meals METOCLOPRAMIDE HCL 08347833385 Active Ang Markham MD Active NOVOLOG FLEXPEN 100 UNIT/ML SOPN Take 20 units TID with meals, plus 2u/50 for blood sugars above 150. Ratio vs. Carbs INSULIN ASPART 94326011496 Active Gabriel Hunt DO Active BD PEN NEEDLE DINESH U/F 32G X 4 MM MISC 5 a day INSULIN PEN NEEDLE 09685788360 Active Malstepheneh Ziglari PLANNING FEEDER Active EMBRACE BLOOD GLUCOSE TEST STRP Test blood sugars 4 times daily and PRN 08/05 GLUCOSE BLOOD 77679893343 No Longer Active Maliheh Ziglari PLANNING FEEDER Active TRUEPLUS LANCETS 30G MISC 4 a day LANCETS 86945410989 Active Maliheh Ziglari PLANNING FEEDER Active TRUETEST TEST STRP check blood sugars 4x/day GLUCOSE BLOOD 47094015447 Active Maliheh Ziglari PLANNING FEEDER Active TRUERESULT BLOOD GLUCOSE W/DEVICE KIT check blood sugars 4x a day BLOOD GLUCOSE MONITORING SUPPL 59784197534 Active Malstepheneh Ziglari PLANNING FEEDER Active LISINOPRIL 5 MG TABS 1 po qd LISINOPRIL 60956409799 Active Ang Markham MD Active PAXIL 20 MG TAB 1 tablet by mouth daily PAROXETINE HCL 31025000068 Active Ang Markham MD Active GENTAMICIN SULFATE 0.1 % EXT OINT Apply to open sores once a day. GENTAMICIN SULFATE 81026653664 No Longer Active Ang Markham MD Active ZOLPIDEM TARTRATE 10 MG TABS 1 po qHS PRN Insomnia ZOLPIDEM TARTRATE 59752332175 Active Ang Markham MD Active BACTRIM DS 800-160 MG TAB 1 tab by mouth twice daily TRIMETHOPRIM-SULFAMETHOXAZOLE 22291470282 No Longer Active Gloria Yokum STERILIZATION SPECIALIST Active LEVEMIR FLEXPEN 100 UNIT/ML SOLN 40 units SC at bedtime INSULIN DETEMIR No Longer Active Susan Adan RMA Active INSUPEN ULTRAFIN 31G X 6 MM MISC Use with insulin qid. DX: E11.9 INSULIN PEN NEEDLE 89998818324 Active Ang Markham MD Active ZOLOFT 100 MG TAB 1 po qHS SERTRALINE HCL 31395266251 No Longer Active Ang Markham MD Active MELOXICAM 15 MG TABS 1 po qd PRN Knee Pain MELOXICAM 00647022589 No Longer Active Ang Markham MD Active CYCLOBENZAPRINE HCL 5 MG TABS 1 po qHS PRN Muscle pain CYCLOBENZAPRINE HCL 52867318404 Active Ang Markham MD Active COLACE 100 MG CAP 1 po BID PRN Constipation DOCUSATE SODIUM 42742202275 No Longer Active Ang Markham MD Active IBUPROFEN 800 MG TABS 1 tab every 8 hours as needed for pain 2013 IBUPROFEN 24579360278 No Longer Active Ang Markham MD Active NITROFURANTOIN MACROCRYSTAL 100 MG CAPS 1 capsule PO bid x 7 days NITROFURANTOIN MACROCRYSTAL 38770653525 No Longer Active Ang Markham MD Active DIFLUCAN 150 MG TAB 1 qODay x 2 doses FLUCONAZOLE 79831388459 No Longer Active Da Romero APRN Active CEFTIN 500 MG TAB 1 tablet by mouth twice daily for 7 days 07/24 CEFUROXIME AXETIL 08807604741 No Longer Active Anthony CARBONE Active ZOLOFT 50 MG TAB 1 tablet by mouth daily SERTRALINE HCL 95347724057 No Longer Active Anthony CARBONE Active ANUSOL-HC 2.5 % CREAM apply as needed HYDROCORTISONE (RECTAL) 50399791158 No Longer Active Anthony CARBONE Active COLACE 100 MG CAP 1 tab PO BID DOCUSATE SODIUM 04377774168 No Longer Active Anthony CARBONE Active TRINESSA (28) 0.18/0.215/0.25 MG-35 MCG TABS 1 po qd as directed NORGESTIM-ETH ESTRAD TRIPHASIC 23354629389 No Longer Active Anthony CARBONE Active [facility] MELATONIN 5 MG TABS 1-2 po qHS PRN Insomnia MELATONIN 97808362117 No Longer Active Anthony CARBONE Active ACYCLOVIR 400 MG TABS ACYCLOVIR 55574410770 No Longer Active Ang Markham MD Active HYDROXYZINE HCL 25 MG TABS 1 tab PO tid PRN itching HYDROXYZINE HCL 78317434376 No Longer Active Ang Markham MD Active DIFLUCAN 150 MG TAB 1 qODay x 2 doses FLUCONAZOLE 79380202536 No Longer Active Da Romero APRN Active ACYCLOVIR 400 MG TABS 1 pill twice daily ACYCLOVIR 87420011322 No Longer Active Da Romero APRN Active AZITHROMYCIN 250 MG TABS 2 po qd x 1 day, then 1 po qd x 4 days AZITHROMYCIN 96192122452 No Longer Active Eri Borges MD PhD Active AZITHROMYCIN 250 MG TABS take 2 po day 1 then take1 po days 2-5 AZITHROMYCIN 36012886958 No Longer Active Octaviano CARBONE Active ACYCLOVIR 400 MG TABS 1 po qd ACYCLOVIR 74059288798 No Longer Active Ang Markham MD Active PROZAC 40 MG CAPS 1 cap by mouth at bedtime FLUOXETINE HCL 65812487302 No Longer Active Ang Markham MD Active HYDROXYZINE HCL 25 MG TABS 1 tab PO tid PRN itching HYDROXYZINE HCL 25 MG TABS 436526 HYDROXYZINE HCL Inactive [facility] MELATONIN 5 MG TABS 1-2 po qHS PRN Insomnia [facility] MELATONIN 5 MG TABS 650763 MELATONIN Inactive TRINESSA (28) 0.18/0.215/0.25 MG-35 MCG TABS 1 po qd as directed TRINESSA (28) 0.18/0.215/0.25 MG-35 MCG TABS 406338 NORGESTIM-ETH ESTRAD TRIPHASIC Inactive COLACE 100 MG CAP 1 tab PO BID COLACE 100 MG CAP 8906884 DOCUSATE SODIUM Inactive ANUSOL-HC 2.5 % CREAM apply as needed ANUSOL-HC 2.5 % CREAM 016028 HYDROCORTISONE (RECTAL) Inactive ZOLOFT 50 MG TAB 1 tablet by mouth daily ZOLOFT 50 MG TAB 737638 SERTRALINE HCL Inactive CEFTIN 500 MG TAB 1 tablet by mouth twice daily for 7 days 07/24 CEFTIN 500 MG TAB 111342 CEFUROXIME AXETIL Inactive NITROFURANTOIN MACROCRYSTAL 100 MG CAPS 1 capsule PO bid x 7 days NITROFURANTOIN MACROCRYSTAL 100 MG CAPS 4009853 NITROFURANTOIN MACROCRYSTAL Inactive IBUPROFEN 800 MG TABS 1 tab every 8 hours as needed for pain 2013 IBUPROFEN 800 MG TABS 710327 IBUPROFEN Inactive COLACE 100 MG CAP 1 po BID PRN Constipation COLACE 100 MG CAP 6439873 DOCUSATE SODIUM Inactive MELOXICAM 15 MG TABS 1 po qd PRN Knee Pain MELOXICAM 15 MG TABS 028804 MELOXICAM Inactive LEVEMIR FLEXPEN 100 UNIT/ML SOLN 40 units SC at bedtime LEVEMIR FLEXPEN 100 UNIT/ML SOLN INSULIN DETEMIR Inactive GENTAMICIN SULFATE 0.1 % EXT OINT Apply to open sores once a day. GENTAMICIN SULFATE 0.1 % EXT OINT 964144 GENTAMICIN SULFATE Inactive EMBRACE BLOOD GLUCOSE TEST STRP Test blood sugars 4 times daily and PRN 08/05 EMBRACE BLOOD GLUCOSE TEST STRP GLUCOSE BLOOD Inactive LEVEMIR FLEXTOUCH 100 UNIT/ML SC SOPN 35 units SC at 12-1pm, 35 units 12-1am LEVEMIR FLEXTOUCH 100 UNIT/ML SC SOPN INSULIN DETEMIR Inactive CORTISPORIN 3.5-45171-0 SOLN 4gtts in affected ear QID x 7 days CORTISPORIN 3.5-97149-6 SOLN 128300 [id number] Inactive GEMFIBROZIL 600 MG TABS 1 po BID GEMFIBROZIL 600 MG TABS 148908 GEMFIBROZIL Inactive LIPITOR 40 MG TAB 1 po qHS LIPITOR 40 MG TAB 068123 ATORVASTATIN CALCIUM Inactive METFORMIN HCL 1000 MG TABS 1 tablet by mouth twice daily METFORMIN HCL 1000 MG TABS 631458 METFORMIN HCL Inactive TRESIBA FLEXTOUCH 200 UNIT/ML SC SOPN Take 70 units daily at mid-night to 1 am. TRESIBA FLEXTOUCH 200 UNIT/ML SC SOPN INSULIN DEGLUDEC Inactive DOXEPIN HCL 10 MG CAP 1 tablet nightly for the itch DOXEPIN HCL 10 MG CAP 1709965 DOXEPIN HCL Inactive LEVAQUIN 500 MG TABS 1 daily for infection LEVAQUIN 500 MG TABS 621346 LEVOFLOXACIN Inactive CLINDAMYCIN HCL 300 MG ORAL CAPS 1 four times a day CLINDAMYCIN HCL 300 MG ORAL CAPS 725632 CLINDAMYCIN HCL Inactive HYDROXYZINE HCL 25 MG TAB 1 TID PRN nerves HYDROXYZINE HCL 25 MG TAB 963824 HYDROXYZINE HCL Inactive ZANTAC 150 MG TAB 1 po BID ZANTAC 150 MG TAB 795969 RANITIDINE HCL Inactive COLACE 100 MG CAP 1 po daily COLACE 100 MG CAP 4014273 DOCUSATE SODIUM Inactive ACYCLOVIR 400 MG TABS 1 po qd ACYCLOVIR 400 MG TABS 19720928 ACYCLOVIR Inactive AZITHROMYCIN 250 MG TABS take 2 po day 1 then take1 po days 2-5 AZITHROMYCIN 250 MG TABS 550890 AZITHROMYCIN Inactive AZITHROMYCIN 250 MG TABS 2 po qd x 1 day, then 1 po qd x 4 days AZITHROMYCIN 250 MG TABS 119278 AZITHROMYCIN Inactive ACYCLOVIR 400 MG TABS 1 pill twice daily ACYCLOVIR 400 MG TABS 19720928 ACYCLOVIR Inactive DIFLUCAN 150 MG TAB 1 qODay x 2 doses DIFLUCAN 150 MG TAB 468694 FLUCONAZOLE Inactive ACYCLOVIR 400 MG TABS ACYCLOVIR 400 MG TABS 19720928 ACYCLOVIR Inactive DIFLUCAN 150 MG TAB 1 qODay x 2 doses DIFLUCAN 150 MG TAB 407828 FLUCONAZOLE Inactive BACTRIM DS 800-160 MG TAB 1 tab by mouth twice daily BACTRIM DS 800-160 MG TAB 420380 TRIMETHOPRIM-SULFAMETHOXAZOLE Inactive Advance Directives Directive Description Start [...] Panel - Chemistry sodium, serum 130 mmol/L 792-406 3019/10/12 carbon dioxide, venous blood 28.1 mmol/L 21.0-32.0 potassium, serum 3.9 mmol/L 3.5-5.2 chloride, serum 91 mmol/L 98-107 blood glucose 547 mg/dL 65-110 urea nitrogen, blood 3 mg/dL 7-18 creatinine, serum 0.78 mg/dL 0.55-1.30 alanine aminotransferase (SGPT), serum 11 U/L 12-78 aspartate aminotransferase (SGOT), serum 7 U/L 15-37 calcium, serum 8.8 mg/dL 8.5-10.1 bilirubin, serum, total 0.30 mg/dL 0.00-1.00 cholesterol, serum 221 mg/dL 014-346 3000/10/12 triglyceride, serum, fasting 590 mg/dL 30-200 HDL cholesterol, serum 45 mg/dL 32-96 LDL cholesterol, serum 58 mg/dL 0-130 Encounters Code Encounter Date Provider Facility CPT-02092 Level 3 Est. Patient 14:52:33 CDT Da Romero [facility] CPT-01677 Level 3 Est. Patient 10:22:30 CDT Conner Hills MD [facility] CPT-89538 Level 3 Est. Patient 15:02:19 CDT Shreya Velazquez [facility] CPT-26188 Level 3 Est. Patient 13:22:25 CDT Gabriel Hunt [facility] CPT-00818 Level 4 Est. Patient 16:02:22 CDT Agn Markham MD [facility] CPT-72501 Level 3 Est. Patient 16:21:23 CDT Celestine Huerta [facility] CPT-49652 Level 3 Est. Patient 17:02:56 CDT Gabriel Hunt [facility] CPT-42660 Level 3 Est. Patient 14:46:22 CDT Da Romero [facility] CPT-58548 Level 4 Est. Patient 13:55:20 CDT Ang Markham MD [facility] CPT-11026 Level 4 Est. Patient 16:10:09 CDT Celestine Huerta [facility] CPT-70239 Level 3 Est. Patient 13:51:24 CDT Ang Markham MD [facility] CPT-63437 Level 3 Est. Patient 18:42:15 CDT Gabriel Hunt [facility] CPT-32432 Level 5 Est. Patient 14:40:14 CDT Celestine Huerta RAMSES [facility] CPT-13603 Level 4 Est. Patient 14:36:17 CDT Ang Markham MD [facility] CPT-82388 Level 3 Est. Patient 11:13:47 DRYWALL TAPER Ang Markham MD [facility] CPT-02500 Level 3 Est. Patient 11:59:20 DRYWALL TAPER Gloria Dunbar [facility] CPT-59236 Level 3 Est. Patient 17:32:37 DRYWALL TAPER Gloria Dunbar [facility] CPT-39578 Level 4 Est. Patient 16:39:07 CDT Ang Markham MD [facility] CPT-50860 Level 3 Est. Patient 16:35:50 CDT Ang Markham MD [facility] CPT-68402 Level 4 Est. Patient 13:53:06 DRYWALL TAPER Ang Markham MD [facility] CPT-57613 Level 3 Est. Patient 08:58:08 DRYWALL TAPER Ang Markham MD [facility] CPT-53737 Level 3 Est. Patient 18:48:29 CDT Anthony Whit[facility] CPT-08753 Level 3 Est. Patient 12:16:59 CDT Gabriel Hunt DO [facility] CPT-13891 Level 3 Est. Patient 18:57:15 CDT Anthony [facility] CPT-32882 Level 3 Est. Patient 13:59:22 DRYWALL TAPER Ang Markham MD [facility] CPT-16783 Level 4 Est. Patient 10:36:08 DRYWALL TAPER Ang Markham MD [facility] CPT-92169 Level 3 Est. Patient 16:27:02 CDT Eri Borges MD PhD [facility] CPT-34830 Level 3 Est. Patient 10:36:43 CDT Octaviano CARBONE [facility] CPT-38551 Level 4 New Patient 08:58:06 CDT Ang Markham MD [facility] Procedures Code Procedure Name Date Entry Date Standard Description CPT-80351 LS spine comp w obliques - XRAY USE ONLY 15:34:48 CDT CPT-91496 Lipid - LAB USE ONLY 15:28:39 CDT CPT-04256 CMP - LAB USE ONLY 15:28:39 CDT CPT-60792 Venipuncture Draw Fee 15:28:39 CDT CPT-22731 Abd compl w upright - XRAY USE ONLY 14:09:39 CDT 02/28 CPT-57034 Venipuncture Draw Fee 12:25:15 CDT CPT-47852 Knee 3V 16:48:40 CDT CPT-OV Office Visit 16:27:13 CDT CPT-OV Office Visit 16:21:19 CDT CPT-79092 Sono pelvis non OB uterus ovaries cervix 09:37:28 CDT
--- OUTSIDE RECORDS SUMMARY | 2018-12-22 02:30 | XMS REPORT | Clinical Summary ---
Author Author Admin, QIE Organization [email or web address] Address Unknown Phone Unavailable Allergies, Adverse Reactions, Alerts Allergy Name Reaction Description Start Date Severity Status Provider SULFA Critical Active Gabriel Hunt DO PENICILLIN Critical Active Ang Mrakham MD Conditions or Problems Problem Name Problem Code Onset Date Status Entry Date Provider Comment Standard Description Annotate DEPRESSION 311 Resolved Ang Markham MD Depressive disorder, not elsewhere classified DIABETES MELLITUS, INSULIN DEPENDENT (IDDM) 250.01 Inactive 2012 Ang Markhma MD Diabetes mellitus without mention of complication [...] leg, except foot Microalbuminuria 791.0 Active Ang Makrham MD Proteinuria Diabetes mellitus, type I, with hypoglycemia 250.81 Active 01/29 Celestine PEARCE Diabetes mellitus with other specified manifestations, type I [juvenile type], not stated as uncontrolled 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 Ratio vs. Carbs INSULIN ASPART 27097026748 Active Gabriel Hunt DO Active BD PEN NEEDLE DINESH U/F 32G X 4 MM MISC 5 a day INSULIN PEN NEEDLE 02655206368 Active Maliheh Ziglari BLEACH MAKER Active LEVEMIR FLEXTOUCH 100 UNIT/ML SC SOPN 30 units SC at 12-1pm, 30 units 12-1am INSULIN DETEMIR 46611801993 Active Maliheh Ziglari BLEACH MAKER Active EMBRACE BLOOD GLUCOSE TEST STRP Test blood sugars 4 times daily and PRN 08/05 GLUCOSE BLOOD 55203103497 No Longer Active Maliheh Ziglari BLEACH MAKER Active TRUEPLUS LANCETS 30G MISC 4 a day LANCETS 55917228142 Active Maliheh Ziglari BLEACH MAKER Active TRUETEST TEST STRP check blood sugars 4x/day GLUCOSE BLOOD 66502193930 Active Maliheh Ziglari BLEACH MAKER Active TRUERESULT BLOOD GLUCOSE W/DEVICE KIT check blood sugars 4x a day BLOOD GLUCOSE MONITORING SUPPL 63077830108 Active Maliheh Ziglari BLEACH MAKER Active LISINOPRIL 5 MG TABS 1 po qd LISINOPRIL 16319352234 Active Ang Markham MD Active PAXIL 20 MG TAB 1 tablet by mouth daily PAROXETINE HCL 94536812294 Active Ang Markham MD Active GENTAMICIN SULFATE 0.1 % EXT OINT Apply to open sores once a day. GENTAMICIN SULFATE 06691264311 No Longer Active Ang Markham MD Active ZOLPIDEM TARTRATE 10 MG TABS 1 po qHS PRN Insomnia ZOLPIDEM TARTRATE 73328187006 Active Ang Markham MD Active BACTRIM DS 800-160 MG TAB 1 tab by mouth twice daily TRIMETHOPRIM-SULFAMETHOXAZOLE 37494947263 No Longer Active Gloria Dunbar DEAN OF [employer]ADU[employer]UDIES Active LEVEMIR FLEXPEN 100 UNIT/ML SOLN 40 units SC at bedtime INSULIN DETEMIR No Longer Active Susan Arellano RMA Active INSUPEN ULTRAFIN 31G X 6 MM MISC Use with insulin qid. DX: E11.9 INSULIN PEN NEEDLE 81000597511 Active Ang Markham MD Active ZOLOFT 100 MG TAB 1 po qHS SERTRALINE HCL 37741885185 No Longer Active Ang Markham MD Active MELOXICAM 15 MG TABS 1 po qd PRN Knee Pain MELOXICAM 57094111189 No Longer Active Ang Markham MD Active LIPITOR 40 MG TAB 1 po qHS ATORVASTATIN CALCIUM 18815677081 Active Ang Markham MD Active METFORMIN HCL 1000 MG TABS 1 tablet by mouth twice daily METFORMIN HCL 10255336620 Active Ang Markham MD Active CYCLOBENZAPRINE HCL 5 MG TABS 1 po qHS PRN Muscle pain CYCLOBENZAPRINE HCL 36577790146 Active Ang Markham MD Active COLACE 100 MG CAP 1 po BID PRN Constipation DOCUSATE SODIUM 85281326445 No Longer Active Ang Markham MD Active HYDROXYZINE HCL 25 MG TAB 1 TID PRN nerves HYDROXYZINE HCL 70968443439 Active Ang Markham MD Active IBUPROFEN 800 MG TABS 1 tab every 8 hours as needed for pain 2013 IBUPROFEN 55989243105 No Longer Active Ang Markham MD Active NITROFURANTOIN MACROCRYSTAL 100 MG CAPS 1 capsule PO bid x 7 days NITROFURANTOIN MACROCRYSTAL 34081854432 No Longer Active Ang Markham MD Active DIFLUCAN 150 MG TAB 1 qODay x 2 doses FLUCONAZOLE 38898597086 No Longer Active Da Romero DEAN OF [employer] Active CEFTIN 500 MG TAB 1 tablet by mouth twice daily for 7 days 07/24 CEFUROXIME AXETIL 00171314091 No Longer Active Anthony CARBONE Active ZOLOFT 50 MG TAB 1 tablet by mouth daily SERTRALINE HCL 04057482121 No Longer Active Anthony CARBONE Active ANUSOL-HC 2.5 % CREAM apply as needed HYDROCORTISONE (RECTAL) 59961212916 No Longer Active Anthony CARBONE Active COLACE 100 MG CAP 1 tab PO BID DOCUSATE SODIUM 88601038698 No Longer Active Anthony CARBONE Active TRINESSA (28) 0.18/0.215/0.25 MG-35 MCG TABS 1 po qd as directed NORGESTIM-ETH ESTRAD TRIPHASIC 35341436112 No Longer Active Anthony CARBONE Active [facility] MELATONIN 5 MG TABS 1-2 po qHS PRN Insomnia MELATONIN 71539579242 No Longer Active Anthony CARBONE Active ACYCLOVIR 400 MG TABS ACYCLOVIR 05728963807 No Longer Active Ang Markham MD Active HYDROXYZINE HCL 25 MG TABS 1 tab PO tid PRN itching HYDROXYZINE HCL 83992163959 No Longer Active Ang Markham MD Active DIFLUCAN 150 MG TAB 1 qODay x 2 doses FLUCONAZOLE 25830691115 No Longer Active Da Romero APRN Active ACYCLOVIR 400 MG TABS 1 pill twice daily ACYCLOVIR 92018713670 No Longer Active Da Romero APRN Active AZITHROMYCIN 250 MG TABS 2 po qd x 1 day, then 1 po qd x 4 days AZITHROMYCIN 51830326028 No Longer Active Eri Borges MD PhD Active AZITHROMYCIN 250 MG TABS take 2 po day 1 then take1 po days 2-5 AZITHROMYCIN 02213119002 No Longer Active Octaviano CARBONE Active ACYCLOVIR 400 MG TABS 1 po qd ACYCLOVIR 40687338704 No Longer Active Ang Markham MD Active PROZAC 40 MG CAPS 1 cap by mouth at bedtime FLUOXETINE HCL 69375729999 No Longer Active Ang Markham MD Active HYDROXYZINE HCL 25 MG TABS 1 tab PO tid PRN itching HYDROXYZINE HCL 25 MG TABS 947009 HYDROXYZINE HCL Inactive [facility] MELATONIN 5 MG TABS 1-2 po qHS PRN Insomnia [facility] MELATONIN 5 MG TABS 148436 MELATONIN Inactive TRINESSA (28) 0.18/0.215/0.25 MG-35 MCG TABS 1 po qd as directed TRINESSA (28) 0.18/0.215/0.25 MG-35 MCG TABS 639888 NORGESTIM-ETH ESTRAD TRIPHASIC Inactive COLACE 100 MG CAP 1 tab PO BID COLACE 100 MG CAP 4014406 DOCUSATE SODIUM Inactive ANUSOL-HC 2.5 % CREAM apply as needed ANUSOL-HC 2.5 % CREAM 862363 HYDROCORTISONE (RECTAL) Inactive ZOLOFT 50 MG TAB 1 tablet by mouth daily ZOLOFT 50 MG TAB 879912 SERTRALINE HCL Inactive CEFTIN 500 MG TAB 1 tablet by mouth twice daily for 7 days 07/24 CEFTIN 500 MG TAB 108788 CEFUROXIME AXETIL Inactive NITROFURANTOIN MACROCRYSTAL 100 MG CAPS 1 capsule PO bid x 7 days NITROFURANTOIN MACROCRYSTAL 100 MG CAPS 9708362 NITROFURANTOIN MACROCRYSTAL Inactive IBUPROFEN 800 MG TABS 1 tab every 8 hours as needed for pain 2013 IBUPROFEN 800 MG TABS 176499 IBUPROFEN Inactive COLACE 100 MG CAP 1 po BID PRN Constipation COLACE 100 MG CAP 1401344 DOCUSATE SODIUM Inactive MELOXICAM 15 MG TABS 1 po qd PRN Knee Pain MELOXICAM 15 MG TABS 261639 MELOXICAM Inactive LEVEMIR FLEXPEN 100 UNIT/ML SOLN 40 units SC at bedtime LEVEMIR FLEXPEN 100 UNIT/ML SOLN INSULIN DETEMIR Inactive GENTAMICIN SULFATE 0.1 % EXT OINT Apply to open sores once a day. GENTAMICIN SULFATE 0.1 % EXT OINT 169319 GENTAMICIN SULFATE Inactive EMBRACE BLOOD GLUCOSE TEST STRP Test blood sugars 4 times daily and PRN 08/05 EMBRACE BLOOD GLUCOSE TEST STRP GLUCOSE BLOOD Inactive ACYCLOVIR 400 MG TABS 1 po qd ACYCLOVIR 400 MG TABS 19720928 ACYCLOVIR Inactive AZITHROMYCIN 250 MG TABS take 2 po day 1 then take1 po days 2-5 AZITHROMYCIN 250 MG TABS 8826670 AZITHROMYCIN Inactive AZITHROMYCIN 250 MG TABS 2 po qd x 1 day, then 1 po qd x 4 days AZITHROMYCIN 250 MG TABS 1355013 AZITHROMYCIN Inactive ACYCLOVIR 400 MG TABS 1 pill twice daily ACYCLOVIR 400 MG TABS 19720928 ACYCLOVIR Inactive DIFLUCAN 150 MG TAB 1 qODay x 2 doses DIFLUCAN 150 MG TAB 967888 FLUCONAZOLE Inactive ACYCLOVIR 400 MG TABS ACYCLOVIR 400 MG TABS 19720928 ACYCLOVIR Inactive DIFLUCAN 150 MG TAB 1 qODay x 2 doses DIFLUCAN 150 MG TAB 510310 FLUCONAZOLE Inactive BACTRIM DS 800-160 MG TAB 1 tab by mouth twice daily BACTRIM DS 800-160 MG TAB 977692 TRIMETHOPRIM-SULFAMETHOXAZOLE Inactive Advance Directives Directive Description Start [...] HGBA1C - Chemistry sodium, serum 134 mmol/L 422-198 0983/03/16 carbon dioxide, venous blood 34.5 mmol/L 21.0-32.0 potassium, serum 4.6 mmol/L 3.5-5.2 chloride, serum 93 mmol/L 98-107 blood glucose 408 mg/dL 65-110 urea nitrogen, blood 3 mg/dL 7-18 creatinine, serum 0.58 mg/dL 0.55-1.30 alanine aminotransferase (SGPT), serum 11 U/L 12-78 aspartate aminotransferase (SGOT), serum 8 U/L 15-37 calcium, serum 9.2 mg/dL 8.5-10.1 bilirubin, serum, total 0.30 mg/dL 0.00-1.00 cholesterol, serum 195 mg/dL 329-030 3032/03/16 triglyceride, serum, fasting 138 mg/dL 30-200 HDL [...] dipstick Negative Negative sodium, serum 133 mmol/L 063-143 9506/06/03 carbon dioxide, venous blood 33.4 mmol/L 21.0-32.0 [...] urine, semiquantitative 5.5 5.0-8.5 Lab Report: [facility] [place] - Chemistry human chorionic gonadotropin, urine, qualitative (urine test) Negative Negative Office Visit: Diabetes Visit - Chemistry cholesterol, target level 200 mg/dL triglyceride, target level 200 mg/dL HDL cholesterol, serum, target level 35 mg/dL LDL target level 100 mg/dL home glucose monitor utilized Yes Encounters Code Encounter Date Provider Facility CPT-34289 Level 3 Est. Patient 13:51:24 CDT Ang Markham MD [facility] CPT-96146 Level 3 Est. Patient 18:42:15 CDT Gabriel Hunt DO [facility] CPT-31312 Level 5 Est. Patient 14:40:14 CDT Celestine PEARCE [facility] CPT-95068 Level 4 Est. Patient 14:36:17 CDT Ang Markham MD [facility] CPT-87220 Level 3 Est. Patient 11:13:47 TRIPE FINISHER Ang Markham MD [facility] CPT-50515 Level 3 Est. Patient 11:59:20 TRIPE FINISHER Gloria Dunbar [facility] CPT-27983 Level 3 Est. Patient 17:32:37 TRIPE FINISHER Gloria Dunbar [facility] CPT-44721 Level 4 Est. Patient 16:39:07 CDT Ang Markham MD [facility] CPT-81045 Level 3 Est. Patient 16:35:50 CDT Ang Markham MD [facility] CPT-36461 Level 4 Est. Patient 13:53:06 TRIPE FINISHER Ang Markham MD [facility] CPT-69350 Level 3 Est. Patient 08:58:08 TRIPE FINISHER Ang Markham MD [facility] CPT-71952 Level 3 Est. Patient 18:48:29 CDT Anthony Whitfield [facility] CPT-53850 Level 3 Est. Patient 12:16:59 CDT Gabriel Hunt DO [facility] CPT-91151 Level 3 Est. Patient 18:57:15 CDT Anthony Whitfield [facility] CPT-67929 Level 3 Est. Patient 13:59:22 TRIPE FINISHER Ang Markham MD [facility] CPT-21471 Level 4 Est. Patient 10:36:08 TRIPE FINISHER Ang Markham MD [facility] CPT-97321 Level 3 Est. Patient 16:27:02 CDT Eri Borges MD PhD [facility] CPT-17961 Level 3 Est. Patient 10:36:43 CDT Octaviano Dempsey [facility] CPT-15700 Level 4 New Patient 08:58:06 CDT Ang Markham MD [facility] Procedures Code Procedure Name Date Entry Date Standard Description CPT-04379 Abd compl w upright - XRAY USE ONLY 14:09:39 CDT 02/28 CPT-41209 Venipuncture Draw Fee 12:25:15 CDT CPT-55552 Knee 3V 16:48:40 CDT CPT-OV Office Visit 16:27:13 CDT CPT-OV Office Visit 16:21:19 CDT CPT-15371 Sono pelvis non OB uterus ovaries cervix 09:37:28 CDT
--- OUTSIDE RECORDS SUMMARY | 2018-12-22 02:31 | XMS REPORT | Clinical Summary ---
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 ICD-V58.67 Nathan Markham MD Abdominal pain ICD-789.00 Nathan Markham MD Hematochezia ICD-578.1 Nathan Markham MD Nausea ICD-787.02 Nathan Markham MD 06/26 Otitis externa, acute, left ICD-380.12 Nathan Markham MD Medication List Medication Instructions Start Date Stop Date Generic Name NDC Status Provider Patient Instruction LEVAQUIN 500 MG TABS 1 daily for infection LEVOFLOXACIN 21376435447 Active Shreya Caroline GREENS TIER Active GEMFIBROZIL 600 MG TABS 1 po BID GEMFIBROZIL 73604752775 Active Ang Markham MD Active CORTISPORIN 3.5-92354-9 SOLN 4gtts in affected ear QID x 7 days [id number] 35731392952 No Longer Active Ang Markham MD Active TRESIBA FLEXTOUCH 200 UNIT/ML SC SOPN Take 70 units daily at mid-night to 1 am. INSULIN DEGLUDEC 97931361301 Active Celestine PEARCE Active LEVEMIR FLEXTOUCH 100 UNIT/ML SC SOPN 35 units SC at 12-1pm, 35 units 12-1am INSULIN DETEMIR 45545501050 No Longer Active Celestine PEARCE Active REGLAN 10 MG TAB 0.5 po TID 30min prior to meals METOCLOPRAMIDE HCL 14756189522 Active Ang Markham MD Active ZANTAC 150 MG TAB 1 po BID RANITIDINE HCL 86531423756 Active Ang Markham MD Active DOXEPIN HCL 10 MG CAP 1 tablet nightly for the itch DOXEPIN HCL 83664211450 Active Ang Markham MD Active COLACE 100 MG CAP 1 po daily DOCUSATE SODIUM 30666312993 Active Gabriel Hunt DO Active NOVOLOG FLEXPEN 100 UNIT/ML SOPN Take 20 units TID with meals, plus 2u/50 for blood sugars above 150. Ratio vs. Carbs INSULIN ASPART 90723764442 Active Gabriel Hunt DO Active BD PEN NEEDLE DINESH U/F 32G X 4 MM MISC 5 a day INSULIN PEN NEEDLE 45474008187 Active Celestine PEARCE Active EMBRACE BLOOD GLUCOSE TEST STRP Test blood sugars 4 times daily and PRN 08/05 GLUCOSE BLOOD 98353631739 No Longer Active Celestine Sierraglari MANAGER OF TRANSPORTATION Active TRUEPLUS LANCETS 30G MISC 4 a day LANCETS 71544441370 Active Celestine Hoganari MANAGER OF TRANSPORTATION Active TRUETEST TEST STRP check blood sugars 4x/day GLUCOSE BLOOD 10205405947 Active Celestine Sierraglari MANAGER OF TRANSPORTATION Active TRUERESULT BLOOD GLUCOSE W/DEVICE KIT check blood sugars 4x a day BLOOD GLUCOSE MONITORING SUPPL 35055029164 Active Celestine Sierraglari MANAGER OF TRANSPORTATION Active LISINOPRIL 5 MG TABS 1 po qd LISINOPRIL 10305786460 Active Ang Markham MD Active PAXIL 20 MG TAB 1 tablet by mouth daily PAROXETINE HCL 70234652264 Active Ang Markham MD Active GENTAMICIN SULFATE 0.1 % EXT OINT Apply to open sores once a day. GENTAMICIN SULFATE 15408318483 No Longer Active Ang Markham MD Active ZOLPIDEM TARTRATE 10 MG TABS 1 po qHS PRN Insomnia ZOLPIDEM TARTRATE 34305050272 Active Ang Markham MD Active BACTRIM DS 800-160 MG TAB 1 tab by mouth twice daily TRIMETHOPRIM-SULFAMETHOXAZOLE 76560643670 No Longer Active Gloria Yotree GREENS TIER Active LEVEMIR FLEXPEN 100 UNIT/ML SOLN 40 units SC at bedtime INSULIN DETEMIR No Longer Active Susanbetty Arellano RMA Active INSUPEN ULTRAFIN 31G X 6 MM MISC Use with insulin qid. DX: E11.9 INSULIN PEN NEEDLE 55929390899 Active Ang Markham MD Active ZOLOFT 100 MG TAB 1 po qHS SERTRALINE HCL 20650988386 No Longer Active Ang Markham MD Active MELOXICAM 15 MG TABS 1 po qd PRN Knee Pain MELOXICAM 51444658515 No Longer Active Ang Markham MD Active LIPITOR 40 MG TAB 1 po qHS ATORVASTATIN CALCIUM 46959373625 Active Ang Markham MD Active METFORMIN HCL 1000 MG TABS 1 tablet by mouth twice daily METFORMIN HCL 13318085811 Active Ang Markham MD Active CYCLOBENZAPRINE HCL 5 MG TABS 1 po qHS PRN Muscle pain CYCLOBENZAPRINE HCL 60839532768 Active Ang Markham MD Active COLACE 100 MG CAP 1 po BID PRN Constipation DOCUSATE SODIUM 38935695814 No Longer Active Ang Markham MD Active HYDROXYZINE HCL 25 MG TAB 1 TID PRN nerves HYDROXYZINE HCL 91055024838 Active Ang Markham MD Active IBUPROFEN 800 MG TABS 1 tab every 8 hours as needed for pain 2013 IBUPROFEN 00158403636 No Longer Active Ang Markham MD Active NITROFURANTOIN MACROCRYSTAL 100 MG CAPS 1 capsule PO bid x 7 days NITROFURANTOIN MACROCRYSTAL 94332807453 No Longer Active Ang Markham MD Active DIFLUCAN 150 MG TAB 1 qODay x 2 doses FLUCONAZOLE 25262038386 No Longer Active Jillpiedad Nguyenl GREENS TIER Active CEFTIN 500 MG TAB 1 tablet by mouth twice daily for 7 days 07/24 CEFUROXIME AXETIL 33381035030 No Longer Active Anthony CARBONE Active ZOLOFT 50 MG TAB 1 tablet by mouth daily SERTRALINE HCL 53225732761 No Longer Active Anthony CARBONE Active ANUSOL-HC 2.5 % CREAM apply as needed HYDROCORTISONE (RECTAL) 40217119148 No Longer Active Anthony CARBONE Active COLACE 100 MG CAP 1 tab PO BID DOCUSATE SODIUM 05254472211 No Longer Active Anthony CARBONE Active TRINESSA (28) 0.18/0.215/0.25 MG-35 MCG TABS 1 po qd as directed NORGESTIM-ETH ESTRAD TRIPHASIC 38132124234 No Longer Active Anthony CARBONE Active [facility] MELATONIN 5 MG TABS 1-2 po qHS PRN Insomnia MELATONIN 36100998738 No Longer Active Anthony CARBONE Active ACYCLOVIR 400 MG TABS ACYCLOVIR 20712020844 No Longer Active Ang Markham MD Active HYDROXYZINE HCL 25 MG TABS 1 tab PO tid PRN itching HYDROXYZINE HCL 58704623969 No Longer Active Ang Markham MD Active DIFLUCAN 150 MG TAB 1 qODay x 2 doses FLUCONAZOLE 18648744286 No Longer Active Jillina Frazell GREENS TIER Active ACYCLOVIR 400 MG TABS 1 pill twice daily ACYCLOVIR 06803392893 No Longer Active Jillina Frazell GREENS TIER Active AZITHROMYCIN 250 MG TABS 2 po qd x 1 day, then 1 po qd x 4 days AZITHROMYCIN 71131197161 No Longer Active Eri Borges MD PhD Active AZITHROMYCIN 250 MG TABS take 2 po day 1 then take1 po days 2-5 AZITHROMYCIN 86989441858 No Longer Active Octaviano CARBONE Active ACYCLOVIR 400 MG TABS 1 po qd ACYCLOVIR 00437288075 No Longer Active Ang Markham MD Active PROZAC 40 MG CAPS 1 cap by mouth at bedtime FLUOXETINE HCL 49479277973 No Longer Active Ang Markham MD Active HYDROXYZINE HCL 25 MG TABS 1 tab PO tid PRN itching HYDROXYZINE HCL 25 MG TABS 297481 HYDROXYZINE HCL Inactive [facility] MELATONIN 5 MG TABS 1-2 po qHS PRN Insomnia [facility] MELATONIN 5 MG TABS 525385 MELATONIN Inactive TRINESSA (28) 0.18/0.215/0.25 MG-35 MCG TABS 1 po qd as directed TRINESSA (28) 0.18/0.215/0.25 MG-35 MCG TABS 947838 NORGESTIM-ETH ESTRAD TRIPHASIC Inactive COLACE 100 MG CAP 1 tab PO BID COLACE 100 MG CAP 4924208 DOCUSATE SODIUM Inactive ANUSOL-HC 2.5 % CREAM apply as needed ANUSOL-HC 2.5 % CREAM 423753 HYDROCORTISONE (RECTAL) Inactive ZOLOFT 50 MG TAB 1 tablet by mouth daily ZOLOFT 50 MG TAB 070213 SERTRALINE HCL Inactive CEFTIN 500 MG TAB 1 tablet by mouth twice daily for 7 days 07/24 CEFTIN 500 MG TAB 384942 CEFUROXIME AXETIL Inactive NITROFURANTOIN MACROCRYSTAL 100 MG CAPS 1 capsule PO bid x 7 days NITROFURANTOIN MACROCRYSTAL 100 MG CAPS 3538739 NITROFURANTOIN MACROCRYSTAL Inactive IBUPROFEN 800 MG TABS 1 tab every 8 hours as needed for pain 2013 IBUPROFEN 800 MG TABS 943904 IBUPROFEN Inactive COLACE 100 MG CAP 1 po BID PRN Constipation COLACE 100 MG CAP 9910485 DOCUSATE SODIUM Inactive MELOXICAM 15 MG TABS 1 po qd PRN Knee Pain MELOXICAM 15 MG TABS 797187 MELOXICAM Inactive LEVEMIR FLEXPEN 100 UNIT/ML SOLN 40 units SC at bedtime LEVEMIR FLEXPEN 100 UNIT/ML SOLN INSULIN DETEMIR Inactive GENTAMICIN SULFATE 0.1 % EXT OINT Apply to open sores once a day. GENTAMICIN SULFATE 0.1 % EXT OINT 950190 GENTAMICIN SULFATE Inactive EMBRACE BLOOD GLUCOSE TEST STRP Test blood sugars 4 times daily and PRN 08/05 EMBRACE BLOOD GLUCOSE TEST STRP GLUCOSE BLOOD Inactive LEVEMIR FLEXTOUCH 100 UNIT/ML SC SOPN 35 units SC at 12-1pm, 35 units 12-1am LEVEMIR FLEXTOUCH 100 UNIT/ML SC SOPN INSULIN DETEMIR Inactive CORTISPORIN 3.5-27879-4 SOLN 4gtts in affected ear QID x 7 days CORTISPORIN 3.5-48874-8 [facility] 741267 [id number] Inactive ACYCLOVIR 400 MG TABS 1 po qd ACYCLOVIR 400 MG TABS 19720928 ACYCLOVIR Inactive AZITHROMYCIN 250 MG TABS take 2 po day 1 then take1 po days 2-5 AZITHROMYCIN 250 MG TABS 1457420 AZITHROMYCIN Inactive AZITHROMYCIN 250 MG TABS 2 po qd x 1 day, then 1 po qd x 4 days AZITHROMYCIN 250 MG TABS 2197175 AZITHROMYCIN Inactive ACYCLOVIR 400 MG TABS 1 pill twice daily ACYCLOVIR 400 MG TABS 19720928 ACYCLOVIR Inactive DIFLUCAN 150 MG TAB 1 qODay x 2 doses DIFLUCAN 150 MG TAB 790941 FLUCONAZOLE Inactive ACYCLOVIR 400 MG TABS ACYCLOVIR 400 MG TABS 19720928 ACYCLOVIR Inactive DIFLUCAN 150 MG TAB 1 qODay x 2 doses DIFLUCAN 150 MG TAB 651682 FLUCONAZOLE Inactive BACTRIM DS 800-160 MG TAB 1 tab by mouth twice daily BACTRIM DS 800-160 MG TAB 512175 TRIMETHOPRIM-SULFAMETHOXAZOLE Inactive Advance Directives Directive Description Start [...] Panel - Chemistry sodium, serum 130 mmol/L 264-787 5393/10/12 carbon dioxide, venous blood 28.1 mmol/L 21.0-32.0 potassium, serum 3.9 mmol/L 3.5-5.2 chloride, serum 91 mmol/L 98-107 blood glucose 547 mg/dL 65-110 urea nitrogen, blood 3 mg/dL 7-18 creatinine, serum 0.78 mg/dL 0.55-1.30 alanine aminotransferase (SGPT), serum 11 U/L 12-78 aspartate aminotransferase (SGOT), serum 7 U/L 15-37 calcium, serum 8.8 mg/dL 8.5-10.1 bilirubin, serum, total 0.30 mg/dL 0.00-1.00 cholesterol, serum 221 mg/dL 625-581 2694/10/12 triglyceride, serum, fasting 590 mg/dL 30-200 HDL cholesterol, serum 45 mg/dL 32-96 LDL cholesterol, serum 58 mg/dL 0-130 Lab Report: HGBA1C - Chemistry hemoglobin A1C, blood, as % of total hemoglobin 11.4 % 4.3-6.0 Lab Report: UADIP W/MICRO, AUTO, CBC W/DIFF, Comp. Metabolic Panel - Chemistry RBC, urine, dipstick Negative Negative sodium, serum 133 mmol/L 854-804 3562/06/03 carbon dioxide, venous blood 33.4 mmol/L 21.0-32.0 [...] nitrite, urine, semiquantitative Negative Negative Lab Report: [facility] - Chemistry human chorionic [...] mg/dL Encounters Code Encounter Date Provider Facility CPT-86715 Level 3 Est. Patient 15:02:19 CDT Shreya Velazquez [facility] CPT-50320 Level 3 Est. Patient 13:22:25 CDT Gabriel Hunt [facility] CPT-74067 Level 4 Est. Patient 16:02:22 CDT Ang Markham MD [facility] CPT-75146 Level 3 Est. [facility]21:[facility] Level 3 Est. Patient 17:02:56 CDT Gabriel Hunt [facility] CPT-57994 Level 3 Est. Patient 14:46:22 CDT Da Romero [facility] CPT-62626 Level 4 Est. Patient 13:55:20 CDT Ang Markham MD [facility] CPT-49604 Level 4 Est. Patient 16:10:09 CDT Celestine Huerta [facility] CPT-84900 Level 3 Est. Patient 13:51:24 CDT Ang Markham MD [facility] CPT-78511 Level 3 Est. Patient 18:42:15 CDT Gabriel Hunt [facility] CPT-35146 Level 5 Est. Patient 14:40:14 [facility] CPT-69185 Level 4 Est. Patient 14:36:17 CDT Ang Markham MD [facility] CPT-41027 Level 3 Est. Patient 11:13:47 CRITICAL CARE NURSE SPECIALIST Ang Markham MD [facility] CPT-97779 Level 3 Est. Patient 11:59:20 CRITICAL CARE NURSE SPECIALIST Gloria Dunbar [facility] CPT-14076 Level 3 Est. Patient 17:32:37 CRITICAL CARE NURSE SPECIALIST Gloria Dunbar [facility] CPT-28841 Level 4 Est. Patient 16:39:07 CDT Ang Markham MD [facility] CPT-29149 Level 3 Est. Patient 16:35:50 CDT Ang Markham MD [facility] CPT-73256 Level 4 Est. Patient 13:53:06 CRITICAL CARE NURSE SPECIALIST Ang Markham MD [facility] CPT-09199 Level 3 Est. Patient 08:58:08 CRITICAL CARE NURSE SPECIALIST Ang Markham MD [facility] CPT-78234 Level 3 Est. Patient 18:48:[address] [facility] CPT-81706 Level 3 Est. Patient 12:16:59 CDT Gabriel Hunt DO [facility] CPT-60634 Level 3 Est. Patient 18:57:[address] [facility] CPT-66198 Level 3 Est. Patient 13:59:22 CRITICAL CARE NURSE SPECIALIST Ang Markham MD [facility] CPT-91765 Level 4 Est. Patient 10:36:08 CRITICAL CARE NURSE SPECIALIST Ang Markham MD [facility] CPT-68947 Level 3 Est. Patient 16:27:02 CDT Eri Borges MD PhD [facility] CPT-67320 Level 3 Est. Patient 10:36:[address] [facility] CPT-23051 Level 4 New Patient 08:58:06 CDT Ang Markham MD [facility] Procedures Code Procedure Name Date Entry Date Standard Description CPT-71864 LS spine comp w obliques - XRAY USE ONLY 15:34:48 CDT CPT-59285 Lipid - LAB USE ONLY 15:28:39 CDT CPT-30543 CMP - LAB USE ONLY 15:28:39 CDT CPT-41833 Venipuncture Draw Fee 15:28:39 CDT CPT-72903 Abd compl w upright - XRAY USE ONLY 14:09:39 CDT 02/28 CPT-49106 Venipuncture Draw Fee 12:25:15 CDT CPT-11218 Knee 3V 16:48:40 CDT CPT-OV Office Visit 16:27:13 CDT CPT-OV Office Visit 16:21:19 CDT CPT-85189 Sono pelvis non OB uterus ovaries cervix 09:37:28 CDT
--- OUTSIDE RECORDS SUMMARY | 2018-12-22 02:32 | XMS REPORT | Clinical Summary ---
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 V58.67 Active Celestine [...] I, with hypoglycemia ICD-250.81 Nathan Markham MD senior living use 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 ICD-V58.67 Nathan Markham MD Abdominal pain ICD-789.00 Nathan Markham MD Hematochezia ICD-578.1 Nathan Markham MD Nausea ICD-787.02 Nathan Markham MD 06/26 Otitis externa, acute, left ICD-380.12 Nathan Markham MD Medication List Medication Instructions Start Date Stop Date Generic Name NDC Status Provider Patient Instruction GEMFIBROZIL 600 MG TABS 1 po BID GEMFIBROZIL 19034842617 Active Ang Markham MD Active CORTISPORIN 3.5-15218-4 SOLN 4gtts in affected ear QID x 7 days [id number] 70575662559 No Longer Active Ang Markham MD Active TRESIBA FLEXTOUCH 200 UNIT/ML SC SOPN Take 70 units daily at mid-night to 1 am. INSULIN DEGLUDEC 54570022141 Active Celestine Sierraglari HOME HEALTH BILLING SPECIALIST Active LEVEMIR FLEXTOUCH 100 UNIT/ML SC SOPN 35 units SC at 12-1pm, 35 units 12-1am INSULIN DETEMIR 77326432697 No Longer Active Celestine PEARCE Active REGLAN 10 MG TAB 0.5 po TID 30min prior to meals METOCLOPRAMIDE HCL 12385752537 Active Ang Markham MD Active ZANTAC 150 MG TAB 1 po BID RANITIDINE HCL 98377277969 Active Ang Markham MD Active DOXEPIN HCL 10 MG CAP 1 tablet nightly for the itch DOXEPIN HCL 22388976492 Active Ang Markham MD Active COLACE 100 MG CAP 1 po daily DOCUSATE SODIUM 21389814562 Active Gabriel Hunt DO Active NOVOLOG FLEXPEN 100 UNIT/ML SOPN Take 20 units TID with meals, plus 2u/50 for blood sugars above 150. Ratio vs. Carbs INSULIN ASPART 94107914387 Active Gabriel Hunt DO Active BD PEN NEEDLE DINESH U/F 32G X 4 MM MISC 5 a day INSULIN PEN NEEDLE 11759166992 Active Janeyeh Ziglari HOME HEALTH BILLING SPECIALIST Active EMBRACE BLOOD GLUCOSE TEST STRP Test blood sugars 4 times daily and PRN 08/05 GLUCOSE BLOOD 75643477212 No Longer Active Malstepheneh Ziglari HOME HEALTH BILLING SPECIALIST Active TRUEPLUS LANCETS 30G MISC 4 a day LANCETS 24443929719 Active Maliheh Ziglari HOME HEALTH BILLING SPECIALIST Active TRUETEST TEST STRP check blood sugars 4x/day GLUCOSE BLOOD 72727550650 Active Maliheh Ziglari HOME HEALTH BILLING SPECIALIST Active TRUERESULT BLOOD GLUCOSE W/DEVICE KIT check blood sugars 4x a day BLOOD GLUCOSE MONITORING SUPPL 68820031024 Active Celestine PEARCE Active LISINOPRIL 5 MG TABS 1 po qd LISINOPRIL 92788830140 Active Ang Markham MD Active PAXIL 20 MG TAB 1 tablet by mouth daily PAROXETINE HCL 90742698682 Active Ang Markham MD Active GENTAMICIN SULFATE 0.1 % EXT OINT Apply to open sores once a day. GENTAMICIN SULFATE 27952690130 No Longer Active Ang Markham MD Active ZOLPIDEM TARTRATE 10 MG TABS 1 po qHS PRN Insomnia ZOLPIDEM TARTRATE 27133238293 Active Ang Markham MD Active BACTRIM DS 800-160 MG TAB 1 tab by mouth twice daily TRIMETHOPRIM-SULFAMETHOXAZOLE 78217497930 No Longer Active Gloria Dunbar WEB USER EXPERIENCE STRATEGIST Active LEVEMIR FLEXPEN 100 UNIT/ML SOLN 40 units SC at bedtime INSULIN DETEMIR No Longer Active Susan Arellano RMA Active INSUPEN ULTRAFIN 31G X 6 MM MISC Use with insulin qid. DX: E11.9 INSULIN PEN NEEDLE 35015165529 Active Ang Markham MD Active ZOLOFT 100 MG TAB 1 po qHS SERTRALINE HCL 76136394148 No Longer Active Ang Markham MD Active MELOXICAM 15 MG TABS 1 po qd PRN Knee Pain MELOXICAM 31101653242 No Longer Active Ang Markham MD Active LIPITOR 40 MG TAB 1 po qHS ATORVASTATIN CALCIUM 96113485903 Active Ang Markham MD Active METFORMIN HCL 1000 MG TABS 1 tablet by mouth twice daily METFORMIN HCL 31252555348 Active Ang Markham MD Active CYCLOBENZAPRINE HCL 5 MG TABS 1 po qHS PRN Muscle pain CYCLOBENZAPRINE HCL 47769110349 Active Ang Markham MD Active COLACE 100 MG CAP 1 po BID PRN Constipation DOCUSATE SODIUM 28250258704 No Longer Active Ang Markham MD Active HYDROXYZINE HCL 25 MG TAB 1 TID PRN nerves HYDROXYZINE HCL 13904446159 Active Ang Markham MD Active IBUPROFEN 800 MG TABS 1 tab every 8 hours as needed for pain 2013 IBUPROFEN 95685795945 No Longer Active Ang Markham MD Active NITROFURANTOIN MACROCRYSTAL 100 MG CAPS 1 capsule PO bid x 7 days NITROFURANTOIN MACROCRYSTAL 34907929773 No Longer Active Ang Markham MD Active DIFLUCAN 150 MG TAB 1 qODay x 2 doses FLUCONAZOLE 90425833275 No Longer Active Jillpiedad Romero WEB USER EXPERIENCE STRATEGIST Active CEFTIN 500 MG TAB 1 tablet by mouth twice daily for 7 days 07/24 CEFUROXIME AXETIL 75853954652 No Longer Active Anthony CARBONE Active ZOLOFT 50 MG TAB 1 tablet by mouth daily SERTRALINE HCL 12351760075 No Longer Active Anthony CARBONE Active ANUSOL-HC 2.5 % CREAM apply as needed HYDROCORTISONE (RECTAL) 52647823614 No Longer Active Anthony CARBONE Active COLACE 100 MG CAP 1 tab PO BID DOCUSATE SODIUM 80970571279 No Longer Active Anthony CARBONE Active TRINESSA (28) 0.18/0.215/0.25 MG-35 MCG TABS 1 po qd as directed NORGESTIM-ETH ESTRAD TRIPHASIC 48908261165 No Longer Active Anthony CARBONE Active [facility] MELATONIN 5 MG TABS 1-2 po qHS PRN Insomnia MELATONIN 22854441035 No Longer Active Anthony CARBONE Active ACYCLOVIR 400 MG TABS ACYCLOVIR 53040222702 No Longer Active Ang Markham MD Active HYDROXYZINE HCL 25 MG TABS 1 tab PO tid PRN itching HYDROXYZINE HCL 12286424518 No Longer Active Ang Markham MD Active DIFLUCAN 150 MG TAB 1 qODay x 2 doses FLUCONAZOLE 12260899892 No Longer Active Da Romero APRN Active ACYCLOVIR 400 MG TABS 1 pill twice daily ACYCLOVIR 05429571016 No Longer Active Da Romero APRN Active AZITHROMYCIN 250 MG TABS 2 po qd x 1 day, then 1 po qd x 4 days AZITHROMYCIN 66951696769 No Longer Active Eri Borges MD PhD Active AZITHROMYCIN 250 MG TABS take 2 po day 1 then take1 po days 2-5 AZITHROMYCIN 49349556829 No Longer Active Octaviano CARBONE Active ACYCLOVIR 400 MG TABS 1 po qd ACYCLOVIR 16202480179 No Longer Active Ang Markham MD Active PROZAC 40 MG CAPS 1 cap by mouth at bedtime FLUOXETINE HCL 29952323291 No Longer Active Ang Markham MD Active HYDROXYZINE HCL 25 MG TABS 1 tab PO tid PRN itching HYDROXYZINE HCL 25 MG TABS 598184 HYDROXYZINE HCL Inactive [facility] MELATONIN 5 MG TABS 1-2 po qHS PRN Insomnia [facility] MELATONIN 5 MG TABS 292712 MELATONIN Inactive TRINESSA (28) 0.18/0.215/0.25 MG-35 MCG TABS 1 po qd as directed TRINESSA (28) 0.18/0.215/0.25 MG-35 MCG TABS 409152 NORGESTIM-ETH ESTRAD TRIPHASIC Inactive COLACE 100 MG CAP 1 tab PO BID COLACE 100 MG CAP 1430902 DOCUSATE SODIUM Inactive ANUSOL-HC 2.5 % CREAM apply as needed ANUSOL-HC 2.5 % CREAM 340293 HYDROCORTISONE (RECTAL) Inactive ZOLOFT 50 MG TAB 1 tablet by mouth daily ZOLOFT 50 MG TAB 141740 SERTRALINE HCL Inactive CEFTIN 500 MG TAB 1 tablet by mouth twice daily for 7 days 07/24 CEFTIN 500 MG TAB 279539 CEFUROXIME AXETIL Inactive NITROFURANTOIN MACROCRYSTAL 100 MG CAPS 1 capsule PO bid x 7 days NITROFURANTOIN MACROCRYSTAL 100 MG CAPS 5852488 NITROFURANTOIN MACROCRYSTAL Inactive IBUPROFEN 800 MG TABS 1 tab every 8 hours as needed for pain 2013 IBUPROFEN 800 MG TABS 383909 IBUPROFEN Inactive COLACE 100 MG CAP 1 po BID PRN Constipation COLACE 100 MG CAP 1521032 DOCUSATE SODIUM Inactive MELOXICAM 15 MG TABS 1 po qd PRN Knee Pain MELOXICAM 15 MG TABS 857527 MELOXICAM Inactive LEVEMIR FLEXPEN 100 UNIT/ML SOLN 40 units SC at bedtime LEVEMIR FLEXPEN 100 UNIT/ML SOLN INSULIN DETEMIR Inactive GENTAMICIN SULFATE 0.1 % EXT OINT Apply to open sores once a day. GENTAMICIN SULFATE 0.1 % EXT OINT 528111 GENTAMICIN SULFATE Inactive EMBRACE BLOOD GLUCOSE TEST STRP Test blood sugars 4 times daily and PRN 08/05 EMBRACE BLOOD GLUCOSE TEST STRP GLUCOSE BLOOD Inactive LEVEMIR FLEXTOUCH 100 UNIT/ML SC SOPN 35 units SC at 12-1pm, 35 units 12-1am LEVEMIR FLEXTOUCH 100 UNIT/ML SC SOPN INSULIN DETEMIR Inactive CORTISPORIN 3.5-95334-5 SOLN 4gtts in affected ear QID x 7 days CORTISPORIN 3.5-55115-2 SOLN 304409 [id number] Inactive ACYCLOVIR 400 MG TABS 1 po qd ACYCLOVIR 400 MG TABS 128965 ACYCLOVIR Inactive AZITHROMYCIN 250 MG TABS take 2 po day 1 then take1 po days 2-5 AZITHROMYCIN 250 MG TABS 3773714 AZITHROMYCIN Inactive AZITHROMYCIN 250 MG TABS 2 po qd x 1 day, then 1 po qd x 4 days AZITHROMYCIN 250 MG TABS 7522385 AZITHROMYCIN Inactive ACYCLOVIR 400 MG TABS 1 [...] HGBA1C - Chemistry sodium, serum 134 mmol/L 901-770 2226/03/16 carbon dioxide, venous blood 34.5 mmol/L 21.0-32.0 potassium, serum 4.6 mmol/L 3.5-5.2 chloride, serum 93 mmol/L 98-107 blood glucose 408 mg/dL 65-110 urea nitrogen, blood 3 mg/dL 7-18 creatinine, serum 0.58 mg/dL 0.55-1.30 alanine aminotransferase (SGPT), serum 11 U/L 12-78 aspartate aminotransferase (SGOT), serum 8 U/L 15-37 calcium, serum 9.2 mg/dL 8.5-10.1 bilirubin, serum, total 0.30 mg/dL 0.00-1.00 cholesterol, serum 195 mg/dL 684-248 0145/03/16 triglyceride, serum, fasting 138 mg/dL 30-200 HDL [...] Panel - Chemistry sodium, serum 130 mmol/L 426-698 2469/10/12 carbon dioxide, venous blood 28.1 mmol/L 21.0-32.0 potassium, serum 3.9 mmol/L 3.5-5.2 chloride, serum 91 mmol/L 98-107 blood glucose 547 mg/dL 65-110 urea nitrogen, blood 3 mg/dL 7-18 creatinine, serum 0.78 mg/dL 0.55-1.30 alanine aminotransferase (SGPT), serum 11 U/L 12-78 aspartate aminotransferase (SGOT), serum 7 U/L 15-37 calcium, serum 8.8 mg/dL 8.5-10.1 bilirubin, serum, total 0.30 mg/dL 0.00-1.00 cholesterol, serum 221 mg/dL 236-890 7927/10/12 triglyceride, serum, fasting 590 mg/dL 30-200 HDL [...] Panel - Chemistry sodium, serum 133 mmol/L 810-952 3768/06/03 carbon dioxide, venous blood 33.4 mmol/L 21.0-32.0 [...] mg/dL Encounters Code Encounter Date Provider Facility CPT-91523 Level 3 Est. Patient 13:22:25 CDT Gabriel Hunt [facility] CPT-15115 Level 4 Est. Patient 16:02:22 CDT Ang Markham MD [facility] CPT-28275 Level 3 Est. Patient 16:21:23 CDT Celestine Huerta [facility] CPT-59283 Level 3 Est. Patient 17:02:56 CDT Gabriel Hunt [facility] CPT-10251 Level 3 Est. Patient 14:46:22 CDT Da Romero [facility] CPT-18262 Level 4 Est. Patient 13:55:20 CDT Ang Markham MD [facility] CPT-55037 Level 4 Est. Patient 16:10:09 CDT Celestine Huerta [facility] CPT-41023 Level 3 Est. Patient 13:51:24 CDT Ang Markham MD [facility] CPT-14653 Level 3 Est. Patient 18:42:15 CDT Gabriel Hunt [facility] CPT-94416 Level 5 Est. Patient 14:40:14 CDT Celestine Huerta [facility] CPT-35378 Level 4 Est. Patient 14:36:17 CDT Ang Markham MD [facility] CPT-32025 Level 3 Est. Patient 11:13:47 CUSTOM BOW MAKER Ang Markham MD [facility] CPT-82288 Level 3 Est. Patient 11:59:20 CUSTOM BOW MAKER Gloria Dunbar [facility] CPT-67882 Level 3 Est. Patient 17:32:37 CUSTOM BOW MAKER Gloria Dunbar [facility] CPT-99082 Level 4 Est. Patient 16:39:07 CDT Ang Markham MD [facility] CPT-24538 Level 3 Est. Patient 16:35:50 CDT Ang Markham MD [facility] CPT-64819 Level 4 Est. Patient 13:53:06 CUSTOM BOW MAKER Ang Markham MD [facility] CPT-23677 Level 3 Est. Patient 08:58:08 CUSTOM BOW MAKER Ang Markham MD [facility] CPT-59600 Level 3 Est. Patient 18:48:29 CDT Anthony Whitfield [facility] CPT-39886 Level 3 Est. Patient 12:16:59 CDT Gabriel Hunt DO [facility] CPT-52767 Level 3 Est. Patient 18:57:15 CDT Anthony Whitfield [facility] CPT-20189 Level 3 Est. Patient 13:59:22 CUSTOM BOW MAKER Ang Markham MD [facility] CPT-65050 Level 4 Est. Patient 10:36:08 CUSTOM BOW MAKER Ang Markham MD [facility] CPT-44309 Level 3 Est. Patient 16:27:02 CDT Eri Borges MD, PhD [facility] CPT-11681 Level 3 Est. Patient 10:36:43 CDT Octaviano Dempsey [facility] CPT-25519 Level 4 New Patient 08:58:06 CDT Ang Markham MD [facility] Procedures Code Procedure Name Date Entry Date Standard Description CPT-03323 Lipid - LAB USE ONLY 15:28:39 CDT CPT-39183 CMP - LAB USE ONLY 15:28:39 CDT CPT-74170 Venipuncture Draw Fee 15:28:39 CDT CPT-96361 Abd compl w upright - XRAY USE ONLY 14:09:39 CDT 02/28 CPT-52103 Venipuncture Draw Fee 12:25:15 CDT CPT-80296 Knee 3V 16:48:40 CDT CPT-OV Office Visit 16:27:13 CDT CPT-OV Office Visit 16:21:19 CDT CPT-35213 Sono pelvis non OB uterus ovaries cervix 09:37:28 CDT
--- OUTSIDE RECORDS SUMMARY | 2018-12-22 02:33 | XMS REPORT | Clinical Summary ---
Author Author Admin, E Organization [facility] Address Unknown Phone Unavailable Allergies, Adverse Reactions, [...] [juvenile type], not stated as uncontrolled senior care use 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 V58.67 Resolved Ang [...] Resolved Ang Markham MD Acute swimmers' ear senior care use 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 V58.67 Active Celestine PEARCE Long-term (current) use of insulin DEPRESSION ICD-311 Inactive Ang Markham MD Diabetes mellitus ICD-250.00 Inactive Ang Mrakham MD AMENORRHEA ICD-626.0 Inactive Eri Borges MD [...] with hypoglycemia ICD-250.81 Nathan Markham MD senior care use 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 ICD-V58.67 Nathan Markham MD Abdominal pain ICD-789.00 Nathan Markham MD Hematochezia ICD-578.1 Nathan Markham MD Nausea ICD-787.02 Nathan Markham MD 06/26 Otitis externa, acute, left ICD-380.12 Nathan Markham MD Medication List Medication Instructions Start Date Stop Date Generic Name NDC Status Provider Patient Instruction GEMFIBROZIL 600 MG TABS 1 po BID GEMFIBROZIL 74501504695 Active Ang Markham MD Active CORTISPORIN 3.5-48468-6 SOLN 4gtts in affected ear QID x 7 days [id number] 68777816873 No Longer Active Ang Markham MD Active TRESIBA FLEXTOUCH 200 UNIT/ML SC SOPN Take 70 units daily at mid-night to 1 am. INSULIN DEGLUDEC 96924368762 Active Celestine Sierraglari MANAGER DOCUMENT Active LEVEMIR FLEXTOUCH 100 UNIT/ML SC SOPN 35 units SC at 12-1pm, 35 units 12-1am INSULIN DETEMIR 85670407396 No Longer Active Celestine PEARCE Active REGLAN 10 MG TAB 0.5 po TID 30min prior to meals METOCLOPRAMIDE HCL 87930742785 Active Ang Markham MD Active ZANTAC 150 MG TAB 1 po BID RANITIDINE HCL 76930639693 Active Ang Markham MD Active DOXEPIN HCL 10 MG CAP 1 tablet nightly for the itch DOXEPIN HCL 47054279938 Active Ang Markham MD Active COLACE 100 MG CAP 1 po daily DOCUSATE SODIUM 62225453917 Active Gabriel Hunt DO Active NOVOLOG FLEXPEN 100 UNIT/ML SOPN Take 20 units TID with meals, plus 2u/50 for blood sugars above 150. Ratio vs. Carbs INSULIN ASPART 49422083133 Active Gabriel Hunt DO Active BD PEN NEEDLE DINESH U/F 32G X 4 MM MISC 5 a day INSULIN PEN NEEDLE 94404611235 Active Malstepheneh Ziglari MANAGER DOCUMENT Active EMBRACE BLOOD GLUCOSE TEST STRP Test blood sugars 4 times daily and PRN 08/05 GLUCOSE BLOOD 61220849916 No Longer Active Malstepheneh Ziglari MANAGER DOCUMENT Active TRUEPLUS LANCETS 30G MISC 4 a day LANCETS 88083283244 Active Maliheh Ziglari MANAGER DOCUMENT Active TRUETEST TEST STRP check blood sugars 4x/day GLUCOSE BLOOD 26058067103 Active Maliheh Ziglari MANAGER DOCUMENT Active TRUERESULT BLOOD GLUCOSE W/DEVICE KIT check blood sugars 4x a day BLOOD GLUCOSE MONITORING SUPPL 82467263741 Active Celestine PEARCE Active LISINOPRIL 5 MG TABS 1 po qd LISINOPRIL 74237324975 Active Ang Markham MD Active PAXIL 20 MG TAB 1 tablet by mouth daily PAROXETINE HCL 44199324301 Active Ang Markham MD Active GENTAMICIN SULFATE 0.1 % EXT OINT Apply to open sores once a day. GENTAMICIN SULFATE 08380624031 No Longer Active Ang Markham MD Active ZOLPIDEM TARTRATE 10 MG TABS 1 po qHS PRN Insomnia ZOLPIDEM TARTRATE 14639211711 Active Ang Markham MD Active BACTRIM DS 800-160 MG TAB 1 tab by mouth twice daily TRIMETHOPRIM-SULFAMETHOXAZOLE 77161742925 No Longer Active Gloria Dunbar RN SHIFT MGR Active LEVEMIR FLEXPEN 100 UNIT/ML SOLN 40 units SC at bedtime INSULIN DETEMIR No Longer Active Susan Arellano RMA Active INSUPEN ULTRAFIN 31G X 6 MM MISC Use with insulin qid. DX: E11.9 INSULIN PEN NEEDLE 79213619408 Active Ang Markham MD Active ZOLOFT 100 MG TAB 1 po qHS SERTRALINE HCL 11103045457 No Longer Active Ang Markham MD Active MELOXICAM 15 MG TABS 1 po qd PRN Knee Pain MELOXICAM 58488324980 No Longer Active Ang Markham MD Active LIPITOR 40 MG TAB 1 po qHS ATORVASTATIN CALCIUM 46238390260 Active Ang Markham MD Active METFORMIN HCL 1000 MG TABS 1 tablet by mouth twice daily METFORMIN HCL 62211627648 Active Ang Markham MD Active CYCLOBENZAPRINE HCL 5 MG TABS 1 po qHS PRN Muscle pain CYCLOBENZAPRINE HCL 69183413413 Active Ang Markham MD Active COLACE 100 MG CAP 1 po BID PRN Constipation DOCUSATE SODIUM 50774774880 No Longer Active Ang Markham MD Active HYDROXYZINE HCL 25 MG TAB 1 TID PRN nerves HYDROXYZINE HCL 92894366549 Active Ang Markham MD Active IBUPROFEN 800 MG TABS 1 tab every 8 hours as needed for pain 2013 IBUPROFEN 15831568402 No Longer Active Ang Markham MD Active NITROFURANTOIN MACROCRYSTAL 100 MG CAPS 1 capsule PO bid x 7 days NITROFURANTOIN MACROCRYSTAL 23142818455 No Longer Active Ang Markham MD Active DIFLUCAN 150 MG TAB 1 qODay x 2 doses FLUCONAZOLE 01361540252 No Longer Active Jillpiedad Romero APRN Active CEFTIN 500 MG TAB 1 tablet by mouth twice daily for 7 days 07/24 CEFUROXIME AXETIL 38155291120 No Longer Active Anthony CARBONE Active ZOLOFT 50 MG TAB 1 tablet by mouth daily SERTRALINE HCL 07996771060 No Longer Active Anthony CARBONE Active ANUSOL-HC 2.5 % CREAM apply as needed HYDROCORTISONE (RECTAL) 12794122781 No Longer Active Anthony CARBONE Active COLACE 100 MG CAP 1 tab PO BID DOCUSATE SODIUM 31663542580 No Longer Active Anthony CARBONE Active TRINESSA (28) 0.18/0.215/0.25 MG-35 MCG TABS 1 po qd as directed NORGESTIM-ETH ESTRAD TRIPHASIC 85004442977 No Longer Active Anthony CARBONE Active [facility] MELATONIN 5 MG TABS 1-2 po qHS PRN Insomnia MELATONIN 92743434962 No Longer Active Anthony CARBONE Active ACYCLOVIR 400 MG TABS ACYCLOVIR 11577903615 No Longer Active Ang Markham MD Active HYDROXYZINE HCL 25 MG TABS 1 tab PO tid PRN itching HYDROXYZINE HCL 29250019201 No Longer Active Ang Markham MD Active DIFLUCAN 150 MG TAB 1 qODay x 2 doses FLUCONAZOLE 33036192787 No Longer Active Da Romero APRN Active ACYCLOVIR 400 MG TABS 1 pill twice daily ACYCLOVIR 13469599608 No Longer Active Da Romero APRN Active AZITHROMYCIN 250 MG TABS 2 po qd x 1 day, then 1 po qd x 4 days AZITHROMYCIN 81348391357 No Longer Active Eri Borges MD PhD Active AZITHROMYCIN 250 MG TABS take 2 po day 1 then take1 po days 2-5 AZITHROMYCIN 37366746967 No Longer Active Octaviano CARBONE Active ACYCLOVIR 400 MG TABS 1 po qd ACYCLOVIR 80949248279 No Longer Active Ang Markham MD Active PROZAC 40 MG CAPS 1 cap by mouth at bedtime FLUOXETINE HCL 22818213468 No Longer Active Ang Markham MD Active HYDROXYZINE HCL 25 MG TABS 1 tab PO tid PRN itching HYDROXYZINE HCL 25 MG TABS 358192 HYDROXYZINE HCL Inactive [facility] MELATONIN 5 MG TABS 1-2 po qHS PRN Insomnia [facility] MELATONIN 5 MG TABS 918718 MELATONIN Inactive TRINESSA (28) 0.18/0.215/0.25 MG-35 MCG TABS 1 po qd as directed TRINESSA (28) 0.18/0.215/0.25 MG-35 MCG TABS 247177 NORGESTIM-ETH ESTRAD TRIPHASIC Inactive COLACE 100 MG CAP 1 tab PO BID COLACE 100 MG CAP 9059004 DOCUSATE SODIUM Inactive ANUSOL-HC 2.5 % CREAM apply as needed ANUSOL-HC 2.5 % CREAM 091176 HYDROCORTISONE (RECTAL) Inactive ZOLOFT 50 MG TAB 1 tablet by mouth daily ZOLOFT 50 MG TAB 833166 SERTRALINE HCL Inactive CEFTIN 500 MG TAB 1 tablet by mouth twice daily for 7 days 07/24 CEFTIN 500 MG TAB 574389 CEFUROXIME AXETIL Inactive NITROFURANTOIN MACROCRYSTAL 100 MG CAPS 1 capsule PO bid x 7 days NITROFURANTOIN MACROCRYSTAL 100 MG CAPS 4438451 NITROFURANTOIN MACROCRYSTAL Inactive IBUPROFEN 800 MG TABS 1 tab every 8 hours as needed for pain 2013 IBUPROFEN 800 MG TABS 994187 IBUPROFEN Inactive COLACE 100 MG CAP 1 po BID PRN Constipation COLACE 100 MG CAP 2663945 DOCUSATE SODIUM Inactive MELOXICAM 15 MG TABS 1 po qd PRN Knee Pain MELOXICAM 15 MG TABS 205857 MELOXICAM Inactive LEVEMIR FLEXPEN 100 UNIT/ML SOLN 40 units SC at bedtime LEVEMIR FLEXPEN 100 UNIT/ML SOLN INSULIN DETEMIR Inactive GENTAMICIN SULFATE 0.1 % EXT OINT Apply to open sores once a day. GENTAMICIN SULFATE 0.1 % EXT OINT 456951 GENTAMICIN SULFATE Inactive EMBRACE BLOOD GLUCOSE TEST STRP Test blood sugars 4 times daily and PRN 08/05 EMBRACE BLOOD GLUCOSE TEST STRP GLUCOSE BLOOD Inactive LEVEMIR FLEXTOUCH 100 UNIT/ML SC SOPN 35 units SC at 12-1pm, 35 units 12-1am LEVEMIR FLEXTOUCH 100 UNIT/ML SC SOPN INSULIN DETEMIR Inactive CORTISPORIN 3.5-06162-5 SOLN 4gtts in affected ear QID x 7 days CORTISPORIN 3.5-35539-1 SOLN 444943 [id number] Inactive ACYCLOVIR 400 MG TABS 1 po qd ACYCLOVIR 400 MG TABS 706219 ACYCLOVIR Inactive AZITHROMYCIN 250 MG TABS take 2 po day 1 then take1 po days 2-5 AZITHROMYCIN 250 MG TABS 6754501 AZITHROMYCIN Inactive AZITHROMYCIN 250 MG TABS 2 po qd x 1 day, then 1 po qd x 4 days AZITHROMYCIN 250 MG TABS 0203655 AZITHROMYCIN Inactive ACYCLOVIR 400 MG TABS 1 [...] twice daily BACTRIM DS 800-160 MG TAB 811794 TRIMETHOPRIM-SULFAMETHOXAZOLE Inactive Advance Directives Directive Description Start [...] HGBA1C - Chemistry sodium, serum 134 mmol/L 665-034 1760/03/16 carbon dioxide, venous blood 34.5 mmol/L 21.0-32.0 potassium, serum 4.6 mmol/L 3.5-5.2 chloride, serum 93 mmol/L 98-107 blood glucose 408 mg/dL 65-110 urea nitrogen, blood 3 mg/dL 7-18 creatinine, serum 0.58 mg/dL 0.55-1.30 alanine aminotransferase (SGPT), serum 11 U/L 12-78 aspartate aminotransferase (SGOT), serum 8 U/L 15-37 calcium, serum 9.2 mg/dL 8.5-10.1 bilirubin, serum, total 0.30 mg/dL 0.00-1.00 cholesterol, serum 195 mg/dL 424-702 8796/03/16 triglyceride, serum, fasting 138 mg/dL 30-200 HDL [...] Panel - Chemistry sodium, serum 130 mmol/L 049-806 5257/10/12 carbon dioxide, venous blood 28.1 mmol/L 21.0-32.0 potassium, serum 3.9 mmol/L 3.5-5.2 chloride, serum 91 mmol/L 98-107 blood glucose 547 mg/dL 65-110 urea nitrogen, blood 3 mg/dL 7-18 creatinine, serum 0.78 mg/dL 0.55-1.30 alanine aminotransferase (SGPT), serum 11 U/L 12-78 aspartate aminotransferase (SGOT), serum 7 U/L 15-37 calcium, serum 8.8 mg/dL 8.5-10.1 bilirubin, serum, total 0.30 mg/dL 0.00-1.00 cholesterol, serum 221 mg/dL 428-005 6421/10/12 triglyceride, serum, fasting 590 mg/dL 30-200 HDL [...] Panel - Chemistry sodium, serum 133 mmol/L 725-994 1228/06/03 carbon dioxide, venous blood 33.4 mmol/L 21.0-32.0 [...] mg/dL Encounters Code Encounter Date Provider Facility CPT-10816 Level 3 Est. Patient 13:22:25 CDT Gabriel Hunt [facility] CPT-92995 Level 4 Est. Patient 16:02:22 CDT Ang Markham MD [facility] CPT-69426 Level 3 Est. [facility]:21[facility] Patient 17:02:56 CDT Gabriel Hunt [facility] CPT-44293 Level 3 Est. Patient 14:46:22 CDT Da Romero [facility] CPT-17099 Level 4 Est. Patient 13:55:20 CDT Ang Markham MD [facility] CPT-34267 Level 4 Est. Patient 16:10:09 CDT Celestine Huerta [facility] CPT-49857 Level 3 Est. Patient 13:51:24 CDT Ang Markham MD [facility] CPT-42068 Level 3 Est. Patient 18:42:15 CDT Gabriel Hunt [facility] CPT-31626 Level 5 Est. Patient 14:40:14 CDT Celestine Huerta [facility] CPT-23353 Level 4 Est. Patient 14:36:17 CDT Ang Markham MD [facility] CPT-03001 Level 3 Est. Patient 11:13:47 SEO STRATEGIST Ang Markham MD [facility] CPT-19738 Level 3 Est. Patient 11:59:20 SEO STRATEGIST Gloria Dunbar [facility] CPT-31568 Level 3 Est. Patient 17:32:37 SEO STRATEGIST Gloria Dunbar [facility] CPT-42022 Level 4 Est. Patient 16:39:07 CDT Ang Markham MD [facility] CPT-28883 Level 3 Est. Patient 16:35:50 CDT Ang Markham MD [facility] CPT-83985 Level 4 Est. Patient 13:53:06 SEO STRATEGIST Ang Markham MD [facility] CPT-67896 Level 3 Est. Patient 08:58:08 SEO STRATEGIST Ang Markham MD [facility] CPT-59948 Level 3 Est. Patient 18:48:29 CDT Anthony Whitfield [facility] CPT-57790 Level 3 Est. Patient 12:16:59 CDT Gabriel Hunt DO [facility] CPT-25611 Level 3 Est. Patient 18:57:15 CDT Anthony Whitfield [facility] CPT-07091 Level 3 Est. Patient 13:59:22 SEO STRATEGIST Ang Markham MD [facility] CPT-11495 Level 4 Est. Patient 10:36:08 SEO STRATEGIST Ang Markham MD [facility] CPT-92159 Level 3 Est. Patient 16:27:02 CDT Eri Borges MD PhD [facility] CPT-00962 Level 3 Est. Patient 10:36:43 CDT Octaviano Dempsey [facility] CPT-04524 Level 4 New Patient 08:58:06 CDT Ang Markham MD [facility] Procedures Code Procedure Name Date Entry Date Standard Description CPT-55773 Lipid - LAB USE ONLY 15:28:39 CDT CPT-03333 CMP - LAB USE ONLY 15:28:39 CDT CPT-28394 Venipuncture Draw Fee 15:28:39 CDT CPT-06603 Abd compl w upright - XRAY USE ONLY 14:09:39 CDT 02/28 CPT-55813 Venipuncture Draw Fee 12:25:15 CDT CPT-09376 Knee 3V 16:48:40 CDT CPT-OV Office Visit 16:27:13 CDT CPT-OV Office Visit 16:21:19 CDT CPT-20958 Sono pelvis non OB uterus ovaries cervix 09:37:28 CDT
--- OUTSIDE RECORDS SUMMARY | 2018-12-22 02:34 | XMS REPORT | Clinical Summary ---
Author Author Admin, E Organization [facility] Address Unknown Phone Unavailable Allergies, Adverse [...] Resolved Ang Markham MD Acute swimmers' ear [facility] use 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 V58.67 Active Celestine [...] Nathan Markham MD Diabetes mellitus ICD-250.00 Nathan Mrakham MD Vaginal discharge ICD-623.5 Nathan Markham MD Amenorrhea ICD-626.0 Nathan Markham MD Cellulitis, ankle, left ICD-682.6 Nathan Markham MD Diabetes mellitus, type I, with hypoglycemia ICD-250.81 Nathan Markham MD [facility] use 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 ICD-V58.67 Nathan Markham MD Abdominal pain ICD-789.00 Nathan Markham MD Hematochezia ICD-578.1 Nathan Markham MD Nausea ICD-787.02 Nathan Markham MD 06/26 Otitis externa, acute, left ICD-380.12 Nathan Markham MD Medication List Medication Instructions Start Date Stop Date Generic Name NDC Status Provider Patient Instruction GEMFIBROZIL 600 MG TABS 1 po BID GEMFIBROZIL 61517608641 Active Ang Markham MD Active CORTISPORIN 3.5-83130-7 SOLN 4gtts in affected ear QID x 7 days [id number] 85723645630 No Longer Active Ang Markham MD Active TRESIBA FLEXTOUCH 200 UNIT/ML SC SOPN Take 70 units daily at mid-night to 1 am. INSULIN DEGLUDEC 19822641606 Active Celestine Sierraglari FICTION AND NONFICTION WRITER PROSE Active LEVEMIR FLEXTOUCH 100 UNIT/ML SC SOPN 35 units SC at 12-1pm, 35 units 12-1am INSULIN DETEMIR 22633967508 No Longer Active Celestine PEARCE Active REGLAN 10 MG TAB 0.5 po TID 30min prior to meals METOCLOPRAMIDE HCL 24814073817 Active Ang Markham MD Active ZANTAC 150 MG TAB 1 po BID RANITIDINE HCL 69560131280 Active Ang Markham MD Active DOXEPIN HCL 10 MG CAP 1 tablet nightly for the itch DOXEPIN HCL 06467560937 Active Ang Markham MD Active COLACE 100 MG CAP 1 po daily DOCUSATE SODIUM 31986098728 Active Gabriel Hunt DO Active NOVOLOG FLEXPEN 100 UNIT/ML SOPN Take 20 units TID with meals, plus 2u/50 for blood sugars above 150. Ratio vs. Carbs INSULIN ASPART 11803278899 Active Gabriel Hunt DO Active BD PEN NEEDLE DINESH U/F 32G X 4 MM MISC 5 a day INSULIN PEN NEEDLE 24774268418 Active Malstepheneh Ziglari FICTION AND NONFICTION WRITER PROSE Active EMBRACE BLOOD GLUCOSE TEST STRP Test blood sugars 4 times daily and PRN 08/05 GLUCOSE BLOOD 77738401523 No Longer Active Malstepheneh Ziglari FICTION AND NONFICTION WRITER PROSE Active TRUEPLUS LANCETS 30G MISC 4 a day LANCETS 46056848769 Active Maliheh Ziglari FICTION AND NONFICTION WRITER PROSE Active TRUETEST TEST STRP check blood sugars 4x/day GLUCOSE BLOOD 19045132217 Active Maliheh Ziglari FICTION AND NONFICTION WRITER PROSE Active TRUERESULT BLOOD GLUCOSE W/DEVICE KIT check blood sugars 4x a day BLOOD GLUCOSE MONITORING SUPPL 03773366297 Active Celestine PEARCE Active LISINOPRIL 5 MG TABS 1 po qd LISINOPRIL 55381880804 Active Ang Markham MD Active PAXIL 20 MG TAB 1 tablet by mouth daily PAROXETINE HCL 29195106604 Active Ang Markham MD Active GENTAMICIN SULFATE 0.1 % EXT OINT Apply to open sores once a day. GENTAMICIN SULFATE 57538302668 No Longer Active Ang Markham MD Active ZOLPIDEM TARTRATE 10 MG TABS 1 po qHS PRN Insomnia ZOLPIDEM TARTRATE 33325917815 Active Ang Markham MD Active BACTRIM DS 800-160 MG TAB 1 tab by mouth twice daily TRIMETHOPRIM-SULFAMETHOXAZOLE 93860526977 No Longer Active Gloria Dunbar OPTICAL GLASS SAWYER Active LEVEMIR FLEXPEN 100 UNIT/ML SOLN 40 units SC at bedtime INSULIN DETEMIR No Longer Active Susan Arellano RMA Active INSUPEN ULTRAFIN 31G X 6 MM MISC Use with insulin qid. DX: E11.9 INSULIN PEN NEEDLE 66459861018 Active Ang Markham MD Active ZOLOFT 100 MG TAB 1 po qHS SERTRALINE HCL 80363537743 No Longer Active Ang Markham MD Active MELOXICAM 15 MG TABS 1 po qd PRN Knee Pain MELOXICAM 24295244633 No Longer Active Ang Markham MD Active LIPITOR 40 MG TAB 1 po qHS ATORVASTATIN CALCIUM 41141825293 Active Ang Markham MD Active METFORMIN HCL 1000 MG TABS 1 tablet by mouth twice daily METFORMIN HCL 75701350898 Active Ang Markham MD Active CYCLOBENZAPRINE HCL 5 MG TABS 1 po qHS PRN Muscle pain CYCLOBENZAPRINE HCL 35680511098 Active Ang Markham MD Active COLACE 100 MG CAP 1 po BID PRN Constipation DOCUSATE SODIUM 14314228777 No Longer Active Ang Markham MD Active HYDROXYZINE HCL 25 MG TAB 1 TID PRN nerves HYDROXYZINE HCL 41675628429 Active Ang Markham MD Active IBUPROFEN 800 MG TABS 1 tab every 8 hours as needed for pain 2013 IBUPROFEN 08880806018 No Longer Active Ang Markham MD Active NITROFURANTOIN MACROCRYSTAL 100 MG CAPS 1 capsule PO bid x 7 days NITROFURANTOIN MACROCRYSTAL 72120072619 No Longer Active Ang Markham MD Active DIFLUCAN 150 MG TAB 1 qODay x 2 doses FLUCONAZOLE 46522941195 No Longer Active Jillpiedad Romero APRN Active CEFTIN 500 MG TAB 1 tablet by mouth twice daily for 7 days 07/24 CEFUROXIME AXETIL 10206699393 No Longer Active Anthony CARBONE Active ZOLOFT 50 MG TAB 1 tablet by mouth daily SERTRALINE HCL 78318750416 No Longer Active Anthony CARBONE Active ANUSOL-HC 2.5 % CREAM apply as needed HYDROCORTISONE (RECTAL) 81944180008 No Longer Active Anthony CARBONE Active COLACE 100 MG CAP 1 tab PO BID DOCUSATE SODIUM 22550522122 No Longer Active Anthony CARBONE Active TRINESSA (28) 0.18/0.215/0.25 MG-35 MCG TABS 1 po qd as directed NORGESTIM-ETH ESTRAD TRIPHASIC 44141889084 No Longer Active Anthony CARBONE Active [facility] MELATONIN 5 MG TABS 1-2 po qHS PRN Insomnia MELATONIN 05134355134 No Longer Active Anthony CARBONE Active ACYCLOVIR 400 MG TABS ACYCLOVIR 02818357120 No Longer Active Ang Markham MD Active HYDROXYZINE HCL 25 MG TABS 1 tab PO tid PRN itching HYDROXYZINE HCL 98973969752 No Longer Active Ang Markham MD Active DIFLUCAN 150 MG TAB 1 qODay x 2 doses FLUCONAZOLE 33562196864 No Longer Active Da Romero APRN Active ACYCLOVIR 400 MG TABS 1 pill twice daily ACYCLOVIR 68488138727 No Longer Active Da Romero APRN Active AZITHROMYCIN 250 MG TABS 2 po qd x 1 day, then 1 po qd x 4 days AZITHROMYCIN 13180204305 No Longer Active Eri Borges MD PhD Active AZITHROMYCIN 250 MG TABS take 2 po day 1 then take1 po days 2-5 AZITHROMYCIN 33039900233 No Longer Active Octaviano CARBONE Active ACYCLOVIR 400 MG TABS 1 po qd ACYCLOVIR 19221809709 No Longer Active Ang Markham MD Active PROZAC 40 MG CAPS 1 cap by mouth at bedtime FLUOXETINE HCL 02771673457 No Longer Active Ang Markham MD Active HYDROXYZINE HCL 25 MG TABS 1 tab PO tid PRN itching HYDROXYZINE HCL 25 MG TABS 574382 HYDROXYZINE HCL Inactive [facility] MELATONIN 5 MG TABS 1-2 po qHS PRN Insomnia [facility] MELATONIN 5 MG TABS 496488 MELATONIN Inactive TRINESSA (28) 0.18/0.215/0.25 MG-35 MCG TABS 1 po qd as directed TRINESSA (28) 0.18/0.215/0.25 MG-35 MCG TABS 802304 NORGESTIM-ETH ESTRAD TRIPHASIC Inactive COLACE 100 MG CAP 1 tab PO BID COLACE 100 MG CAP 6658404 DOCUSATE SODIUM Inactive ANUSOL-HC 2.5 % CREAM apply as needed ANUSOL-HC 2.5 % CREAM 743525 HYDROCORTISONE (RECTAL) Inactive ZOLOFT 50 MG TAB 1 tablet by mouth daily ZOLOFT 50 MG TAB 467847 SERTRALINE HCL Inactive CEFTIN 500 MG TAB 1 tablet by mouth twice daily for 7 days 07/24 CEFTIN 500 MG TAB 210605 CEFUROXIME AXETIL Inactive NITROFURANTOIN MACROCRYSTAL 100 MG CAPS 1 capsule PO bid x 7 days NITROFURANTOIN MACROCRYSTAL 100 MG CAPS 4815427 NITROFURANTOIN MACROCRYSTAL Inactive IBUPROFEN 800 MG TABS 1 tab every 8 hours as needed for pain 2013 IBUPROFEN 800 MG TABS 104721 IBUPROFEN Inactive COLACE 100 MG CAP 1 po BID PRN Constipation COLACE 100 MG CAP 2705597 DOCUSATE SODIUM Inactive MELOXICAM 15 MG TABS 1 po qd PRN Knee Pain MELOXICAM 15 MG TABS 726202 MELOXICAM Inactive LEVEMIR FLEXPEN 100 UNIT/ML SOLN 40 units SC at bedtime LEVEMIR FLEXPEN 100 UNIT/ML SOLN INSULIN DETEMIR Inactive GENTAMICIN SULFATE 0.1 % EXT OINT Apply to open sores once a day. GENTAMICIN SULFATE 0.1 % EXT OINT 427692 GENTAMICIN SULFATE Inactive EMBRACE BLOOD GLUCOSE TEST STRP Test blood sugars 4 times daily and PRN 08/05 EMBRACE BLOOD GLUCOSE TEST STRP GLUCOSE BLOOD Inactive LEVEMIR FLEXTOUCH 100 UNIT/ML SC SOPN 35 units SC at 12-1pm, 35 units 12-1am LEVEMIR FLEXTOUCH 100 UNIT/ML SC SOPN INSULIN DETEMIR Inactive CORTISPORIN 3.5-41533-9 SOLN 4gtts in affected ear QID x 7 days CORTISPORIN 3.5-03026-7 SOLN 221981 [id number] Inactive ACYCLOVIR 400 MG TABS 1 po qd ACYCLOVIR 400 MG TABS 413484 ACYCLOVIR Inactive AZITHROMYCIN 250 MG TABS take 2 po day 1 then take1 po days 2-5 AZITHROMYCIN 250 MG TABS 3945541 AZITHROMYCIN Inactive AZITHROMYCIN 250 MG TABS 2 po qd x 1 day, then 1 po qd x 4 days AZITHROMYCIN 250 MG TABS 7466527 AZITHROMYCIN Inactive ACYCLOVIR 400 MG TABS 1 [...] twice daily BACTRIM DS 800-160 MG TAB 745177 TRIMETHOPRIM-SULFAMETHOXAZOLE Inactive Advance Directives Directive Description Start [...] HGBA1C - Chemistry sodium, serum 134 mmol/L 195-598 0347/03/16 carbon dioxide, venous blood 34.5 mmol/L 21.0-32.0 potassium, serum 4.6 mmol/L 3.5-5.2 chloride, serum 93 mmol/L 98-107 blood glucose 408 mg/dL 65-110 urea nitrogen, blood 3 mg/dL 7-18 creatinine, serum 0.58 mg/dL 0.55-1.30 alanine aminotransferase (SGPT), serum 11 U/L 12-78 aspartate aminotransferase (SGOT), serum 8 U/L 15-37 calcium, serum 9.2 mg/dL 8.5-10.1 bilirubin, serum, total 0.30 mg/dL 0.00-1.00 cholesterol, serum 195 mg/dL 787-705 6571/03/16 triglyceride, serum, fasting 138 mg/dL 30-200 HDL [...] Panel - Chemistry sodium, serum 130 mmol/L 274-089 9889/10/12 carbon dioxide, venous blood 28.1 mmol/L 21.0-32.0 potassium, serum 3.9 mmol/L 3.5-5.2 chloride, serum 91 mmol/L 98-107 blood glucose 547 mg/dL 65-110 urea nitrogen, blood 3 mg/dL 7-18 creatinine, serum 0.78 mg/dL 0.55-1.30 alanine aminotransferase (SGPT), serum 11 U/L 12-78 aspartate aminotransferase (SGOT), serum 7 U/L 15-37 calcium, serum 8.8 mg/dL 8.5-10.1 bilirubin, serum, total 0.30 mg/dL 0.00-1.00 cholesterol, serum 221 mg/dL 032-764 8658/10/12 triglyceride, serum, fasting 590 mg/dL 30-200 HDL [...] Panel - Chemistry sodium, serum 133 mmol/L 012-524 4900/06/03 carbon dioxide, venous blood 33.4 mmol/L 21.0-32.0 [...] pH, urine, semiquantitative 5.5 5.0-8.5 Lab Report: [facility] [place] - Chemistry human [...] mg/dL Encounters Code Encounter Date Provider Facility CPT-05771 Level 4 Est. Patient 16:02:22 CDT Ang Markham MD [facility] CPT-21197 Level 3 Est. Patient 16:21:23 CDT Celestine Huerta [facility] CPT-33402 Level 3 Est. Patient 17:02:56 CDT Gabriel Hunt [facility] CPT-23485 Level 3 Est. Patient 14:46:22 CDT Da Romero [facility] CPT-81515 Level 4 Est. Patient 13:55:20 CDT Ang Markham MD [facility] CPT-37645 Level 4 Est. Patient 16:10:09 CDT [facility] Level 3 Est. Patient 13:51:24 CDT Ang Markham MD [facility] CPT-60807 Level 3 Est. Patient 18:42:15 CDT Gabriel Hunt [facility] CPT-71714 Level 5 Est. Patient 14:40:14 CDT Celestine Huerta [facility] CPT-52611 Level 4 Est. Patient 14:36:17 CDT Ang Markham MD [facility] CPT-86068 Level 3 Est. 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 Patient 11:59:20 WAGON DRIVER Gloria Dunbar [facility] CPT-26990 Level 3 Est. Patient 17:32:37 WAGON DRIVER Gloria Dunbar [facility] CPT-84996 Level 4 Est. Patient 16:39:07 CDT Ang Markham MD [facility] CPT-36614 Level 3 Est. Patient 16:35:50 CDT Ang Markham MD [facility] CPT-03780 Level 4 Est. Patient 13:53:06 [employer]AGON DRIVER Ang Markham MD [facility] CPT-72193 Level 3 Est. Patient 08:58:08 [employer]AGON DRIVER Ang Markham MD [facility] CPT-45515 Level 3 Est. Patient 18:48:29 CDT Anthony Whitfield [facility] CPT-77666 Level 3 Est. Patient 12:16:59 CDT Gabriel uHnt DO [facility] CPT-71245 Level 3 Est. Patient 18:57:15 CDT Anthony Whitfield [facility] CPT-31125 Level 3 Est. Patient 13:59:22 WAGON DRIVER Ang Markham MD [facility] CPT-69848 Level 4 Est. Patient 10:36:08 WAGON DRIVER Ang Markham MD [facility] CPT-95527 Level 3 Est. Patient 16:27:02 CDT Eri Borges MD PhD [facility] CPT-20222 Level 3 Est. Patient 10:36:43 CDT Octaviano Dempsey [facility] CPT-02897 Level 4 New Patient 08:58:06 CDT Ang Markham MD [facility] Procedures Code Procedure Name Date Entry Date Standard Description CPT-81459 Lipid - LAB USE ONLY 15:28:39 CDT CPT-82277 CMP - LAB USE ONLY 15:28:39 CDT CPT-69806 Venipuncture Draw Fee 15:28:39 CDT CPT-41998 Abd compl w upright - XRAY USE ONLY 14:09:39 CDT 02/28 CPT-22351 Venipuncture Draw Fee 12:25:15 CDT CPT-89424 Knee 3V 16:48:40 CDT CPT-OV Office Visit 16:27:13 CDT CPT-OV Office Visit 16:21:19 CDT CPT-77845 Sono pelvis non OB uterus ovaries cervix 09:37:28 CDT
--- OUTSIDE RECORDS SUMMARY | 2018-12-22 02:35 | XMS REPORT | Clinical Summary ---
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 ICD-V58.67 Nathan Markham MD Abdominal pain ICD-789.00 Nathan Markham MD Hematochezia ICD-578.1 Nathan Markham MD Nausea ICD-787.02 Nathan Markham MD 06/26 Otitis externa, acute, left ICD-380.12 Nathan Markham MD Medication List Medication Instructions Start Date Stop Date Generic Name NDC Status Provider Patient Instruction LEVAQUIN 500 MG TABS 1 daily for infection LEVOFLOXACIN 83761255763 Active Shreya Caroline SOCIAL SERVICE COORDINATOR Active GEMFIBROZIL 600 MG TABS 1 po BID GEMFIBROZIL 49693694334 Active Ang Markham MD Active CORTISPORIN 3.5-38369-1 SOLN 4gtts in affected ear QID x 7 days [id number] 22353936995 No Longer Active Ang Markham MD Active TRESIBA FLEXTOUCH 200 UNIT/ML SC SOPN Take 70 units daily at mid-night to 1 am. INSULIN DEGLUDEC 21718948191 Active Celestine PEARCE Active LEVEMIR FLEXTOUCH 100 UNIT/ML SC SOPN 35 units SC at 12-1pm, 35 units 12-1am INSULIN DETEMIR 72023996611 No Longer Active Celestine PEARCE Active REGLAN 10 MG TAB 0.5 po TID 30min prior to meals METOCLOPRAMIDE HCL 37190121198 Active Ang Markham MD Active ZANTAC 150 MG TAB 1 po BID RANITIDINE HCL 48493470222 Active Ang Markham MD Active DOXEPIN HCL 10 MG CAP 1 tablet nightly for the itch DOXEPIN HCL 26944378369 Active Ang Markham MD Active COLACE 100 MG CAP 1 po daily DOCUSATE SODIUM 30633548833 Active Gabriel Hunt DO Active NOVOLOG FLEXPEN 100 UNIT/ML SOPN Take 20 units TID with meals, plus 2u/50 for blood sugars above 150. Ratio vs. Carbs INSULIN ASPART 99977790495 Active Gabriel Hunt DO Active BD PEN NEEDLE DINESH U/F 32G X 4 MM MISC 5 a day INSULIN PEN NEEDLE 31034722413 Active Celestine PEARCE Active EMBRACE BLOOD GLUCOSE TEST STRP Test blood sugars 4 times daily and PRN 08/05 GLUCOSE BLOOD 14563433174 No Longer Active Celestine Sierraglari TAPE MAKING MACHINE OPERATOR Active TRUEPLUS LANCETS 30G MISC 4 a day LANCETS 91768550038 Active Celestine Hoganari TAPE MAKING MACHINE OPERATOR Active TRUETEST TEST STRP check blood sugars 4x/day GLUCOSE BLOOD 55153499209 Active Celestine Sierraglari TAPE MAKING MACHINE OPERATOR Active TRUERESULT BLOOD GLUCOSE W/DEVICE KIT check blood sugars 4x a day BLOOD GLUCOSE MONITORING SUPPL 47772342908 Active Celestine Sierraglari TAPE MAKING MACHINE OPERATOR Active LISINOPRIL 5 MG TABS 1 po qd LISINOPRIL 49824840071 Active Ang Markham MD Active PAXIL 20 MG TAB 1 tablet by mouth daily PAROXETINE HCL 56784631828 Active Ang Markham MD Active GENTAMICIN SULFATE 0.1 % EXT OINT Apply to open sores once a day. GENTAMICIN SULFATE 78837439493 No Longer Active Ang Markham MD Active ZOLPIDEM TARTRATE 10 MG TABS 1 po qHS PRN Insomnia ZOLPIDEM TARTRATE 71401317389 Active Ang Markham MD Active BACTRIM DS 800-160 MG TAB 1 tab by mouth twice daily TRIMETHOPRIM-SULFAMETHOXAZOLE 20843837792 No Longer Active Gloriajuliette Goveaharlan SOCIAL SERVICE COORDINATOR Active LEVEMIR FLEXPEN 100 UNIT/ML SOLN 40 units SC at bedtime INSULIN DETEMIR No Longer Active Susan Adan RMA Active INSUPEN ULTRAFIN 31G X 6 MM MISC Use with insulin qid. DX: E11.9 INSULIN PEN NEEDLE 54073986776 Active Ang Markham MD Active ZOLOFT 100 MG TAB 1 po qHS SERTRALINE HCL 89881217513 No Longer Active Ang Markham MD Active MELOXICAM 15 MG TABS 1 po qd PRN Knee Pain MELOXICAM 59925725701 No Longer Active Ang Markham MD Active LIPITOR 40 MG TAB 1 po qHS ATORVASTATIN CALCIUM 56932129182 Active Ang Markham MD Active METFORMIN HCL 1000 MG TABS 1 tablet by mouth twice daily METFORMIN HCL 16353041160 Active Ang Markham MD Active CYCLOBENZAPRINE HCL 5 MG TABS 1 po qHS PRN Muscle pain CYCLOBENZAPRINE HCL 79911917681 Active Ang Markham MD Active COLACE 100 MG CAP 1 po BID PRN Constipation DOCUSATE SODIUM 85615813484 No Longer Active Ang Markham MD Active HYDROXYZINE HCL 25 MG TAB 1 TID PRN nerves HYDROXYZINE HCL 97904657727 Active Ang Markham MD Active IBUPROFEN 800 MG TABS 1 tab every 8 hours as needed for pain 2013 IBUPROFEN 15841067915 No Longer Active Ang Markham MD Active NITROFURANTOIN MACROCRYSTAL 100 MG CAPS 1 capsule PO bid x 7 days NITROFURANTOIN MACROCRYSTAL 29863662088 No Longer Active Ang Markham MD Active DIFLUCAN 150 MG TAB 1 qODay x 2 doses FLUCONAZOLE 15954763754 No Longer Active Jillpiedad Nguyenl DAYO Active CEFTIN 500 MG TAB 1 tablet by mouth twice daily for 7 days 07/24 CEFUROXIME AXETIL 38201488122 No Longer Active Anthony CARBONE Active ZOLOFT 50 MG TAB 1 tablet by mouth daily SERTRALINE HCL 57512254091 No Longer Active Anthony CARBONE Active ANUSOL-HC 2.5 % CREAM apply as needed HYDROCORTISONE (RECTAL) 79656611471 No Longer Active Anthony CARBONE Active COLACE 100 MG CAP 1 tab PO BID DOCUSATE SODIUM 94766038689 No Longer Active Anthony CARBONE Active TRINESSA (28) 0.18/0.215/0.25 MG-35 MCG TABS 1 po qd as directed NORGESTIM-ETH ESTRAD TRIPHASIC 74368315616 No Longer Active Anthony CARBONE Active [facility] MELATONIN 5 MG TABS 1-2 po qHS PRN Insomnia MELATONIN 92448120194 No Longer Active Anthony CARBONE Active ACYCLOVIR 400 MG TABS ACYCLOVIR 25109995911 No Longer Active Ang Markham MD Active HYDROXYZINE HCL 25 MG TABS 1 tab PO tid PRN itching HYDROXYZINE HCL 59537298448 No Longer Active Ang Markham MD Active DIFLUCAN 150 MG TAB 1 qODay x 2 doses FLUCONAZOLE 51736965889 No Longer Active Jillina Frazell SOCIAL SERVICE COORDINATOR Active ACYCLOVIR 400 MG TABS 1 pill twice daily ACYCLOVIR 58077576885 No Longer Active Jillina Frazell SOCIAL SERVICE COORDINATOR Active AZITHROMYCIN 250 MG TABS 2 po qd x 1 day, then 1 po qd x 4 days AZITHROMYCIN 05531241078 No Longer Active Eri Borges MD PhD Active AZITHROMYCIN 250 MG TABS take 2 po day 1 then take1 po days 2-5 AZITHROMYCIN 82344161935 No Longer Active Octaviano CARBONE Active ACYCLOVIR 400 MG TABS 1 po qd ACYCLOVIR 86107958935 No Longer Active Ang Markham MD Active PROZAC 40 MG CAPS 1 cap by mouth at bedtime FLUOXETINE HCL 94893161827 No Longer Active Ang Markham MD Active HYDROXYZINE HCL 25 MG TABS 1 tab PO tid PRN itching HYDROXYZINE HCL 25 MG TABS 055031 HYDROXYZINE HCL Inactive [facility] MELATONIN 5 MG TABS 1-2 po qHS PRN Insomnia [facility] MELATONIN 5 MG TABS 234483 MELATONIN Inactive TRINESSA (28) 0.18/0.215/0.25 MG-35 MCG TABS 1 po qd as directed TRINESSA (28) 0.18/0.215/0.25 MG-35 MCG TABS 102186 NORGESTIM-ETH ESTRAD TRIPHASIC Inactive COLACE 100 MG CAP 1 tab PO BID COLACE 100 MG CAP 9762487 DOCUSATE SODIUM Inactive ANUSOL-HC 2.5 % CREAM apply as needed ANUSOL-HC 2.5 % CREAM 383645 HYDROCORTISONE (RECTAL) Inactive ZOLOFT 50 MG TAB 1 tablet by mouth daily ZOLOFT 50 MG TAB 282563 SERTRALINE HCL Inactive CEFTIN 500 MG TAB 1 tablet by mouth twice daily for 7 days 07/24 CEFTIN 500 MG TAB 703193 CEFUROXIME AXETIL Inactive NITROFURANTOIN MACROCRYSTAL 100 MG CAPS 1 capsule PO bid x 7 days NITROFURANTOIN MACROCRYSTAL 100 MG CAPS 2517233 NITROFURANTOIN MACROCRYSTAL Inactive IBUPROFEN 800 MG TABS 1 tab every 8 hours as needed for pain 2013 IBUPROFEN 800 MG TABS 749019 IBUPROFEN Inactive COLACE 100 MG CAP 1 po BID PRN Constipation COLACE 100 MG CAP 5380143 DOCUSATE SODIUM Inactive MELOXICAM 15 MG TABS 1 po qd PRN Knee Pain MELOXICAM 15 MG TABS 991651 MELOXICAM Inactive LEVEMIR FLEXPEN 100 UNIT/ML SOLN 40 units SC at bedtime LEVEMIR FLEXPEN 100 UNIT/ML SOLN INSULIN DETEMIR Inactive GENTAMICIN SULFATE 0.1 % EXT OINT Apply to open sores once a day. GENTAMICIN SULFATE 0.1 % EXT OINT 552523 GENTAMICIN SULFATE Inactive EMBRACE BLOOD GLUCOSE TEST STRP Test blood sugars 4 times daily and PRN 08/05 EMBRACE BLOOD GLUCOSE TEST STRP GLUCOSE BLOOD Inactive LEVEMIR FLEXTOUCH 100 UNIT/ML SC SOPN 35 units SC at 12-1pm, 35 units 12-1am LEVEMIR FLEXTOUCH 100 UNIT/ML SC SOPN INSULIN DETEMIR Inactive CORTISPORIN 3.5-79010-4 SOLN 4gtts in affected ear QID x 7 days CORTISPORIN 3.5-20371-4 [facility] 694290 HYTCHHTW-EUDSGLLDD-VB Inactive ACYCLOVIR 400 MG TABS 1 po qd ACYCLOVIR 400 MG TABS 19720928 ACYCLOVIR Inactive AZITHROMYCIN 250 MG TABS take 2 po day 1 then take1 po days 2-5 AZITHROMYCIN 250 MG TABS 3922192 AZITHROMYCIN Inactive AZITHROMYCIN 250 MG TABS 2 po qd x 1 day, then 1 po qd x 4 days AZITHROMYCIN 250 MG TABS 9800904 AZITHROMYCIN Inactive ACYCLOVIR 400 MG TABS 1 pill twice daily ACYCLOVIR 400 MG TABS 19720928 ACYCLOVIR Inactive DIFLUCAN 150 MG TAB 1 qODay x 2 doses DIFLUCAN 150 MG TAB 19760606 FLUCONAZOLE Inactive ACYCLOVIR 400 MG TABS ACYCLOVIR 400 MG TABS 19720928 ACYCLOVIR Inactive DIFLUCAN 150 MG TAB 1 qODay x 2 doses DIFLUCAN 150 MG TAB 012016 FLUCONAZOLE Inactive BACTRIM DS 800-160 MG TAB 1 tab by mouth twice daily BACTRIM DS 800-160 MG TAB 977379 TRIMETHOPRIM-SULFAMETHOXAZOLE Inactive Advance Directives Directive Description Start [...] Panel - Chemistry sodium, serum 130 mmol/L 444-561 1179/10/12 carbon dioxide, venous blood 28.1 mmol/L 21.0-32.0 potassium, serum 3.9 mmol/L 3.5-5.2 chloride, serum 91 mmol/L 98-107 blood glucose 547 mg/dL 65-110 urea nitrogen, blood 3 mg/dL 7-18 creatinine, serum 0.78 mg/dL 0.55-1.30 alanine aminotransferase (SGPT), serum 11 U/L 12-78 aspartate aminotransferase (SGOT), serum 7 U/L 15-37 calcium, serum 8.8 mg/dL 8.5-10.1 bilirubin, serum, total 0.30 mg/dL 0.00-1.00 cholesterol, serum 221 mg/dL 329-915 6078/10/12 triglyceride, serum, fasting 590 mg/dL 30-200 HDL cholesterol, serum 45 mg/dL 32-96 LDL cholesterol, serum 58 mg/dL 0-130 Lab Report: HGBA1C - Chemistry hemoglobin A1C, blood, as % of total hemoglobin 11.4 % 4.3-6.0 Lab Report: UADIP W/MICRO, AUTO, CBC W/DIFF, Comp. Metabolic Panel - Chemistry RBC, urine, dipstick Negative Negative sodium, serum 133 mmol/L 924-452 7720/06/03 carbon dioxide, venous blood 33.4 mmol/L 21.0-32.0 [...] nitrite, urine, semiquantitative Negative Negative Lab Report: [facility] [place] Chemistry human chorionic gonadotropin, urine, qualitative [...] mg/dL Encounters Code Encounter Date Provider Facility CPT-05951 Level 3 Est. Patient 15:02:19 CDT Shreya Velazquez [facility] CPT-07335 Level 3 Est. Patient 13:22:25 CDT Gabriel Hunt [facility] CPT-34539 Level 4 Est. Patient 16:02:22 CDT Ang Markham MD [facility] CPT-41639 Level 3 Est. [facility] Level 3 Est. Patient 17:02:56 CDT Gabriel Hunt [facility] CPT-20319 Level 3 Est. Patient 14:46:22 CDT Da Romero [facility] CPT-68983 Level 4 Est. Patient 13:55:20 CDT Ang Markham MD [facility] CPT-39211 Level 4 Est. Patient 16:10:09 CDT Celestine Huerta [facility] CPT-81486 Level 3 Est. Patient 13:51:24 CDT Ang Markham MD [facility] CPT-78546 Level 3 Est. Patient 18:42:15 CDT Gabriel Hunt [facility] CPT-73894 Level 5 Est. [facility] 14:40:[facility] CPT-94882 Level 4 Est. Patient 14:36:17 CDT Ang Markham MD [facility] CPT-42311 Level 3 Est. Patient 11:13:47 CRUCIBLE FURNACE TENDER Ang Markham MD [facility] CPT-52781 Level 3 Est. Patient 11:59:20 CRUCIBLE FURNACE TENDER Gloria Dunbar [facility] CPT-17207 Level 3 Est. Patient 17:32:37 CRUCIBLE FURNACE TENDER Gloria Dunbar [facility] CPT-63388 Level 4 Est. Patient 16:39:07 CDT nAg Markham MD [facility] CPT-75489 Level 3 Est. Patient 16:35:50 CDT Ang Markham MD [facility] CPT-03902 Level 4 Est. Patient 13:53:06 CRUCIBLE FURNACE TENDER Ang Markham MD [facility] CPT-04894 Level 3 Est. Patient 08:58:08 CRUCIBLE FURNACE TENDER Ang Markham MD [facility] CPT-84474 Level 3 Est. Patient 18:48:29 CDT Anthony Whitfield [facility] CPT-86180 Level 3 Est. Patient 12:16:59 CDT Gabriel Hunt DO [facility] CPT-06516 Level 3 Est. Patient 18:57:15 CDT Anthony Whitfield [facility] CPT-59247 Level 3 Est. Patient 13:59:22 CRUCIBLE FURNACE TENDER Ang Markham MD [facility] CPT-58676 Level 4 Est. Patient 10:36:08 CRUCIBLE FURNACE TENDER Ang Markham MD [facility] CPT-46069 Level 3 Est. Patient 16:27:02 CDT Eri Borges MD PhD [facility] CPT-86522 Level 3 Est. Patient 10:36:43 CDT Octaviano Dempsey [facility] CPT-94118 Level 4 New Patient 08:58:06 CDT Ang Markham MD [facility] Procedures Code Procedure Name Date Entry Date Standard Description CPT-36688 LS spine comp w obliques - XRAY USE ONLY 15:34:48 CDT CPT-30002 Lipid - LAB USE ONLY 15:28:39 CDT CPT-37899 CMP - LAB USE ONLY 15:28:39 CDT CPT-85432 Venipuncture Draw Fee 15:28:39 CDT CPT-24858 Abd compl w upright - XRAY USE ONLY 14:09:39 CDT 02/28 CPT-61547 Venipuncture Draw Fee 12:25:15 CDT CPT-16466 Knee 3V 16:48:40 CDT CPT-OV Office Visit 16:27:13 CDT CPT-OV Office Visit 16:21:19 CDT CPT-83041 Sono pelvis non OB uterus ovaries cervix 09:37:28 CDT
--- OUTSIDE RECORDS SUMMARY | 2018-12-22 02:36 | XMS REPORT | Clinical Summary ---
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 Ang Markham MD Medication List Medication Instructions Start Date Stop Date Generic Name NDC Status Provider Patient Instruction CORTISPORIN [id number] SOLN 4gtts in affected ear QID x 7 days [id number] 99052017515 Active Gabriel Hunt DO Active LEVEMIR FLEXTOUCH 100 UNIT/ML SC SOPN 35 units SC at 12-1pm, 35 units 12-1am INSULIN DETEMIR 70920912527 Active Ang Markham MD Active DOXEPIN HCL 10 MG CAP 1 tablet nightly for the itch DOXEPIN HCL 33864582320 Active Gabriel Hunt DO Active COLACE 100 MG CAP 1 po daily DOCUSATE SODIUM 65034469591 Active Gabriel Hunt DO Active NOVOLOG FLEXPEN 100 UNIT/ML SOPN Take 20 units TID with meals, plus 2u/50 for blood sugars above 150. Ratio vs. Carbs INSULIN ASPART 89171909439 Active Gabriel Hunt DO Active BD PEN NEEDLE DINESH U/F 32G X 4 MM MISC 5 a day INSULIN PEN NEEDLE 44472554100 Active Celestine Sierraglari CERTIFIED ADAPTED PHYSICAL EDUCATOR Active EMBRACE BLOOD GLUCOSE TEST STRP Test blood sugars 4 times daily and PRN 08/05 GLUCOSE BLOOD 02196485305 No Longer Active Celestine Sierraglari CERTIFIED ADAPTED PHYSICAL EDUCATOR Active TRUEPLUS LANCETS 30G MISC 4 a day LANCETS 08464550117 Active Celestine Sierraglari CERTIFIED ADAPTED PHYSICAL EDUCATOR Active TRUETEST TEST STRP check blood sugars 4x/day GLUCOSE BLOOD 63213457393 Active Celestine Sierraglari CERTIFIED ADAPTED PHYSICAL EDUCATOR Active TRUERESULT BLOOD GLUCOSE W/DEVICE KIT check blood sugars 4x a day BLOOD GLUCOSE MONITORING SUPPL 27084664592 Active Celestine Sierraglari CERTIFIED ADAPTED PHYSICAL EDUCATOR Active LISINOPRIL 5 MG TABS 1 po qd LISINOPRIL 26521940127 Active Ang Markham MD Active PAXIL 20 MG TAB 1 tablet by mouth daily PAROXETINE HCL 74723952639 Active Ang Markham MD Active GENTAMICIN SULFATE 0.1 % EXT OINT Apply to open sores once a day. GENTAMICIN SULFATE 97646598776 No Longer Active Ang Markham MD Active ZOLPIDEM TARTRATE 10 MG TABS 1 po qHS PRN Insomnia ZOLPIDEM TARTRATE 35007916454 Active Ang Markham MD Active BACTRIM DS 800-160 MG TAB 1 tab by mouth twice daily TRIMETHOPRIM-SULFAMETHOXAZOLE 82228297994 No Longer Active Gloria Dunbar COLLET GLUER Active LEVEMIR FLEXPEN 100 UNIT/ML SOLN 40 units SC at bedtime INSULIN DETEMIR No Longer Active Susanbetty Arellano RMA Active INSUPEN ULTRAFIN 31G X 6 MM MISC Use with insulin qid. DX: E11.9 INSULIN PEN NEEDLE 45143339912 Active Ang Markham MD Active ZOLOFT 100 MG TAB 1 po qHS SERTRALINE HCL 24603890680 No Longer Active Ang Markham MD Active MELOXICAM 15 MG TABS 1 po qd PRN Knee Pain MELOXICAM 51739098480 No Longer Active Ang Markham MD Active LIPITOR 40 MG TAB 1 po qHS ATORVASTATIN CALCIUM 09836296555 Active Ang Markham MD Active METFORMIN HCL 1000 MG TABS 1 tablet by mouth twice daily METFORMIN HCL 66812322570 Active Ang Markham MD Active CYCLOBENZAPRINE HCL 5 MG TABS 1 po qHS PRN Muscle pain CYCLOBENZAPRINE HCL 51134021848 Active Ang Markham MD Active COLACE 100 MG CAP 1 po BID PRN Constipation DOCUSATE SODIUM 08812197454 No Longer Active Ang Markham MD Active HYDROXYZINE HCL 25 MG TAB 1 TID PRN nerves HYDROXYZINE HCL 96062964028 Active Ang Markham MD Active IBUPROFEN 800 MG TABS 1 tab every 8 hours as needed for pain 2013 IBUPROFEN 71419467745 No Longer Active Ang Markham MD Active NITROFURANTOIN MACROCRYSTAL 100 MG CAPS 1 capsule PO bid x 7 days NITROFURANTOIN MACROCRYSTAL 82364642040 No Longer Active Ang Markham MD Active DIFLUCAN 150 MG TAB 1 qODay x 2 doses FLUCONAZOLE 96955938382 No Longer Active Da Romero APRN Active CEFTIN 500 MG TAB 1 tablet by mouth twice daily for 7 days 07/24 CEFUROXIME AXETIL 37904604901 No Longer Active Anthony CARBONE Active ZOLOFT 50 MG TAB 1 tablet by mouth daily SERTRALINE HCL 94007294494 No Longer Active Anthony CARBONE Active ANUSOL-HC 2.5 % CREAM apply as needed HYDROCORTISONE (RECTAL) 23668126876 No Longer Active Anthony CARBONE Active COLACE 100 MG CAP 1 tab PO BID DOCUSATE SODIUM 34918959484 No Longer Active Anthony CARBONE Active TRINESSA (28) 0.18/0.215/0.25 MG-35 MCG TABS 1 po qd as directed NORGESTIM-ETH ESTRAD TRIPHASIC 53943540158 No Longer Active Anthony CARBONE Active [facility] MELATONIN 5 MG TABS 1-2 po qHS PRN Insomnia MELATONIN 45551818083 No Longer Active Anthony CARBONE Active ACYCLOVIR 400 MG TABS ACYCLOVIR 06978405883 No Longer Active Ang Markham MD Active HYDROXYZINE HCL 25 MG TABS 1 tab PO tid PRN itching HYDROXYZINE HCL 83690345190 No Longer Active Ang Markham MD Active DIFLUCAN 150 MG TAB 1 qODay x 2 doses FLUCONAZOLE 69502158380 No Longer Active Jillina Frazell COLLET GLUER Active ACYCLOVIR 400 MG TABS 1 pill twice daily ACYCLOVIR 37060604525 No Longer Active Jillina Frazell COLLET GLUER Active AZITHROMYCIN 250 MG TABS 2 po qd x 1 day, then 1 po qd x 4 days AZITHROMYCIN 60180547297 No Longer Active Eri Borges MD PhD Active AZITHROMYCIN 250 MG TABS take 2 po day 1 then take1 po days 2-5 AZITHROMYCIN 41217733252 No Longer Active Octaviano CARBONE Active ACYCLOVIR 400 MG TABS 1 po qd ACYCLOVIR 39861521498 No Longer Active Ang Markham MD Active PROZAC 40 MG CAPS 1 cap by mouth at bedtime FLUOXETINE HCL 19296708368 No Longer Active Ang Markham MD Active HYDROXYZINE HCL 25 MG TABS 1 tab PO tid PRN itching HYDROXYZINE HCL 25 MG TABS 024681 HYDROXYZINE HCL Inactive [facility] MELATONIN 5 MG TABS 1-2 po qHS PRN Insomnia [facility] MELATONIN 5 MG TABS 722330 MELATONIN Inactive TRINESSA (28) 0.18/0.215/0.25 MG-35 MCG TABS 1 po qd as directed TRINESSA (28) 0.18/0.215/0.25 MG-35 MCG TABS 073459 NORGESTIM-ETH ESTRAD TRIPHASIC Inactive COLACE 100 MG CAP 1 tab PO BID COLACE 100 MG CAP 3492983 DOCUSATE SODIUM Inactive ANUSOL-HC 2.5 % CREAM apply as needed ANUSOL-HC 2.5 % CREAM 897586 HYDROCORTISONE (RECTAL) Inactive ZOLOFT 50 MG TAB 1 tablet by mouth daily ZOLOFT 50 MG TAB 118131 SERTRALINE HCL Inactive CEFTIN 500 MG TAB 1 tablet by mouth twice daily for 7 days 07/24 CEFTIN 500 MG TAB 234846 CEFUROXIME AXETIL Inactive NITROFURANTOIN MACROCRYSTAL 100 MG CAPS 1 capsule PO bid x 7 days NITROFURANTOIN MACROCRYSTAL 100 MG CAPS 1811844 NITROFURANTOIN MACROCRYSTAL Inactive IBUPROFEN 800 MG TABS 1 tab every 8 hours as needed for pain 2013 IBUPROFEN 800 MG TABS 401242 IBUPROFEN Inactive COLACE 100 MG CAP 1 po BID PRN Constipation COLACE 100 MG CAP 1597955 DOCUSATE SODIUM Inactive MELOXICAM 15 MG TABS 1 po qd PRN Knee Pain MELOXICAM 15 MG TABS 772212 MELOXICAM Inactive LEVEMIR FLEXPEN 100 UNIT/ML SOLN 40 units SC at bedtime LEVEMIR FLEXPEN 100 UNIT/ML SOLN INSULIN DETEMIR Inactive GENTAMICIN SULFATE 0.1 % EXT OINT Apply to open sores once a day. GENTAMICIN SULFATE 0.1 % EXT OINT 670738 GENTAMICIN SULFATE Inactive EMBRACE BLOOD GLUCOSE TEST STRP Test blood sugars 4 times daily and PRN 08/05 EMBRACE BLOOD GLUCOSE TEST STRP GLUCOSE BLOOD Inactive ACYCLOVIR 400 MG TABS 1 po qd ACYCLOVIR 400 MG TABS 19720928 ACYCLOVIR Inactive AZITHROMYCIN 250 MG TABS take 2 po day 1 then take1 po days 2-5 AZITHROMYCIN 250 MG TABS 0688058 AZITHROMYCIN Inactive AZITHROMYCIN 250 MG TABS 2 po qd x 1 day, then 1 po qd x 4 days AZITHROMYCIN 250 MG TABS 9658768 AZITHROMYCIN Inactive ACYCLOVIR 400 MG TABS 1 pill twice daily ACYCLOVIR 400 MG TABS 19720928 ACYCLOVIR Inactive DIFLUCAN 150 MG TAB 1 qODay x 2 doses DIFLUCAN 150 MG TAB 19760606 FLUCONAZOLE Inactive ACYCLOVIR 400 MG TABS ACYCLOVIR 400 MG TABS 19720928 ACYCLOVIR Inactive DIFLUCAN 150 MG TAB 1 qODay x 2 doses DIFLUCAN 150 MG TAB 632313 FLUCONAZOLE Inactive BACTRIM DS 800-160 MG TAB 1 tab by mouth twice daily BACTRIM DS 800-160 MG TAB 053781 TRIMETHOPRIM-SULFAMETHOXAZOLE Inactive Advance Directives Directive Description Start [...] HGBA1C - Chemistry sodium, serum 134 mmol/L 395-489 8303/03/16 carbon dioxide, venous blood 34.5 mmol/L 21.0-32.0 potassium, serum 4.6 mmol/L 3.5-5.2 chloride, serum 93 mmol/L 98-107 blood glucose 408 mg/dL 65-110 urea nitrogen, blood 3 mg/dL 7-18 creatinine, serum 0.58 mg/dL 0.55-1.30 alanine aminotransferase (SGPT), serum 11 U/L 12-78 aspartate aminotransferase (SGOT), serum 8 U/L 15-37 calcium, serum 9.2 mg/dL 8.5-10.1 bilirubin, serum, total 0.30 mg/dL 0.00-1.00 cholesterol, serum 195 mg/dL 352-326 0374/03/16 triglyceride, serum, fasting 138 mg/dL 30-200 HDL [...] Panel - Chemistry sodium, serum 133 mmol/L 587-405 2297/06/03 carbon dioxide, venous blood 33.4 mmol/L 21.0-32.0 [...] pH, urine, semiquantitative 5.5 5.0-8.5 Lab Report: [facility] [place] - Chemistry human chorionic gonadotropin, urine, qualitative [...] Yes Encounters Code Encounter Date Provider Facility [id number] Level 3 Est. Patient 17:02:56 CDT Gabriel Hunt [facility] CPT-86279 Level 3 Est. Patient 14:46:22 CDT Da Romero [facility] CPT-21252 Level 4 Est. Patient 13:55:20 CDT Ang Markham MD [facility] CPT-78845 Level 4 Est. Patient 16:10:09 CDT Celestine Huerta [facility] CPT-47598 Level 3 Est. Patient 13:51:24 CDT Ang Markham MD [facility] CPT-56054 Level 3 Est. Patient 18:42:15 CDT Gabriel Hunt [facility] CPT-82986 Level 5 Est. Patient 14:40:14 CDT Celestine Huerta [facility] CPT-18685 Level 4 Est. Patient 14:36:17 CDT Ang Markham MD [facility] CPT-81044 Level 3 Est. Patient 11:13:47 RIM TECHNICIAN Ang Markham MD [facility] CPT-78257 Level 3 Est. Patient 11:59:20 RIM TECHNICIAN Gloria Dunbar [facility] CPT-89180 Level 3 Est. Patient 17:32:37 RIM TECHNICIAN Gloria Dunbar [facility] CPT-32015 Level 4 Est. Patient 16:39:07 CDT Ang Markham MD [facility] CPT-81526 Level 3 Est. Patient 16:35:50 CDT Ang Markham MD [facility] CPT-84052 Level 4 Est. Patient 13:53:06 RIM TECHNICIAN Ang Markham MD [facility] CPT-86614 Level 3 Est. Patient 08:58:08 RIM TECHNICIAN Ang Markham MD [facility] CPT-57890 Level 3 Est. Patient 18:48:29 CDT Anthony Whitfield [facility] CPT-52491 Level 3 Est. Patient 12:16:59 CDT Gabriel Hunt DO [facility] CPT-54586 Level 3 Est. Patient 18:57:15 CDT Anthony Whitfield [facility] CPT-69372 Level 3 Est. Patient 13:59:22 RIM TECHNICIAN Ang Markham MD [facility] CPT-74437 Level 4 Est. Patient 10:36:08 RIM TECHNICIAN Ang Markham MD [facility] CPT-87693 Level 3 Est. Patient 16:27:02 CDT Eri Borges MD PhD [facility] CPT-59576 Level 3 Est. Patient 10:36:43 CDT Octaviano Dempsey [facility] CPT-30482 Level 4 New Patient 08:58:06 CDT Ang Markham MD [facility] Procedures Code Procedure Name Date Entry Date Standard Description CPT-57186 Abd compl w upright - XRAY USE ONLY 14:09:39 CDT 02/28 CPT-57108 Venipuncture Draw Fee 12:25:15 CDT CPT-70523 Knee 3V 16:48:40 CDT CPT-OV Office Visit 16:27:13 CDT CPT-OV Office Visit 16:21:19 CDT CPT-31254 Sono pelvis non OB uterus ovaries cervix 09:37:28 CDT
--- OUTSIDE RECORDS SUMMARY | 2018-12-22 02:37 | XMS REPORT | Clinical Summary ---
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 INSULIN DEGLUDEC 46672357976 No Longer Active Conner Hills MD Active METFORMIN HCL 1000 MG TABS 1 tablet by mouth twice daily METFORMIN HCL 22693699642 No Longer Active Conner Hills MD Active LIPITOR 40 MG TAB 1 po qHS ATORVASTATIN CALCIUM 64309665329 No Longer Active Conner Hills MD Active GEMFIBROZIL 600 MG TABS 1 po BID GEMFIBROZIL 61383390756 No Longer Active Conner Hills MD Active CORTISPORIN 3.5-45650-6 SOLN 4gtts in affected ear QID x 7 days [id number] 40270662201 No Longer Active Ang Markham MD Active LEVEMIR FLEXTOUCH 100 UNIT/ML SC SOPN 35 units SC at 12-1pm, 35 units 12-1am INSULIN DETEMIR 09302734898 No Longer Active Celestine MENDEZP Active REGLAN 10 MG TAB 0.5 po TID 30min prior to meals METOCLOPRAMIDE HCL 48862715334 Active Ang Markham MD Active ZANTAC 150 MG TAB 1 po BID RANITIDINE HCL 51838170125 Active Ang Markham MD Active COLACE 100 MG CAP 1 po daily DOCUSATE SODIUM 73576095071 Active Gabriel Hunt DO Active NOVOLOG FLEXPEN 100 UNIT/ML SOPN Take 20 units TID with meals, plus 2u/50 for blood sugars above 150. Ratio vs. Carbs INSULIN ASPART 28558464493 Active Gabriel Hunt DO Active BD PEN NEEDLE DINESH U/F 32G X 4 MM MISC 5 a day INSULIN PEN NEEDLE 63140639040 Active Malwalter Ziglari [employer]ICY CHANGE CLERKS SUPERVISOR Active EMBRACE BLOOD GLUCOSE TEST STRP Test blood sugars 4 times daily and PRN 08/05 GLUCOSE BLOOD 65037436454 No Longer Active Malstepheneh Ziglari POLICY CHANGE CLERKS SUPERVISOR Active TRUEPLUS LANCETS 30G MISC 4 a day LANCETS 30778074405 Active Maliheh Ziglari POLICY CHANGE CLERKS SUPERVISOR Active TRUETEST TEST STRP check blood sugars 4x/day GLUCOSE BLOOD 71173866168 Active Maliheh Ziglari POLICY CHANGE CLERKS SUPERVISOR Active TRUERESULT BLOOD GLUCOSE W/DEVICE KIT check blood sugars 4x a day BLOOD GLUCOSE MONITORING SUPPL 90370454605 Active Malstepheneh Ziglari POLICY CHANGE CLERKS SUPERVISOR Active LISINOPRIL 5 MG TABS 1 po qd LISINOPRIL 69911936044 Active Ang Markham MD Active PAXIL 20 MG TAB 1 tablet by mouth daily PAROXETINE HCL 54700569581 Active Ang Markham MD Active GENTAMICIN SULFATE 0.1 % EXT OINT Apply to open sores once a day. GENTAMICIN SULFATE 64511345363 No Longer Active Ang Markham MD Active ZOLPIDEM TARTRATE 10 MG TABS 1 po qHS PRN Insomnia ZOLPIDEM TARTRATE 62800116101 Active Ang Markham MD Active BACTRIM DS 800-160 MG TAB 1 tab by mouth twice daily TRIMETHOPRIM-SULFAMETHOXAZOLE 21814738663 No Longer Active Gloria Dunbar HONING MACHINE OPERATOR Active LEVEMIR FLEXPEN 100 UNIT/ML SOLN 40 units SC at bedtime INSULIN DETEMIR No Longer Active Susan Arellano RMA Active INSUPEN ULTRAFIN 31G X 6 MM MISC Use with insulin qid. DX: E11.9 INSULIN PEN NEEDLE 86114428919 Active Ang Markham MD Active ZOLOFT 100 MG TAB 1 po qHS SERTRALINE HCL 44540891075 No Longer Active Ang Markham MD Active MELOXICAM 15 MG TABS 1 po qd PRN Knee Pain MELOXICAM 53741214732 No Longer Active Ang Markham MD Active CYCLOBENZAPRINE HCL 5 MG TABS 1 po qHS PRN Muscle pain CYCLOBENZAPRINE HCL 17080234596 Active Ang Markham MD Active COLACE 100 MG CAP 1 po BID PRN Constipation DOCUSATE SODIUM 60754127596 No Longer Active Ang Markham MD Active HYDROXYZINE HCL 25 MG TAB 1 TID PRN nerves HYDROXYZINE HCL 17716314507 Active Ang Markham MD Active IBUPROFEN 800 MG TABS 1 tab every 8 hours as needed for pain 2013 IBUPROFEN 22428189933 No Longer Active Ang Markham MD Active NITROFURANTOIN MACROCRYSTAL 100 MG CAPS 1 capsule PO bid x 7 days NITROFURANTOIN MACROCRYSTAL 46850420568 No Longer Active Ang Markham MD Active DIFLUCAN 150 MG TAB 1 qODay x 2 doses FLUCONAZOLE 48789248029 No Longer Active Da Romero APRN Active CEFTIN 500 MG TAB 1 tablet by mouth twice daily for 7 days 07/24 CEFUROXIME AXETIL 53263446541 No Longer Active Anthony CARBONE Active ZOLOFT 50 MG TAB 1 tablet by mouth daily SERTRALINE HCL 26297551699 No Longer Active Anthony CARBONE Active ANUSOL-HC 2.5 % CREAM apply as needed HYDROCORTISONE (RECTAL) 04962672242 No Longer Active Anthony CARBONE Active COLACE 100 MG CAP 1 tab PO BID DOCUSATE SODIUM 14529729399 No Longer Active Anthony CARBONE Active TRINESSA (28) 0.18/0.215/0.25 MG-35 MCG TABS 1 po qd as directed NORGESTIM-ETH ESTRAD TRIPHASIC 80240272027 No Longer Active Anthony CARBONE Active [facility] MELATONIN 5 MG TABS 1-2 po qHS PRN Insomnia MELATONIN 27694690089 No Longer Active Anthony CARBONE Active ACYCLOVIR 400 MG TABS ACYCLOVIR 40904915144 No Longer Active Ang Markham MD Active HYDROXYZINE HCL 25 MG TABS 1 tab PO tid PRN itching HYDROXYZINE HCL 27943008969 No Longer Active Ang Markham MD Active DIFLUCAN 150 MG TAB 1 qODay x 2 doses FLUCONAZOLE 01572416559 No Longer Active Da Romero APRN Active ACYCLOVIR 400 MG TABS 1 pill twice daily ACYCLOVIR 28396535349 No Longer Active Jillina Nick OSHEA Active AZITHROMYCIN 250 MG TABS 2 po qd x 1 day, then 1 po qd x 4 days AZITHROMYCIN 43139831779 No Longer Active Eri Borges MD PhD Active AZITHROMYCIN 250 MG TABS take 2 po day 1 then take1 po days 2-5 AZITHROMYCIN 09084527710 No Longer Active Octaviano CARBONE Active ACYCLOVIR 400 MG TABS 1 po qd ACYCLOVIR 81979123796 No Longer Active Ang Markham MD Active PROZAC 40 MG CAPS 1 cap by mouth at bedtime FLUOXETINE HCL 13572278204 No Longer Active Ang Markham MD Active HYDROXYZINE HCL 25 MG TABS 1 tab PO tid PRN itching HYDROXYZINE HCL 25 MG TABS 797953 HYDROXYZINE HCL Inactive [facility] MELATONIN 5 MG TABS 1-2 po qHS PRN Insomnia [facility] MELATONIN 5 MG TABS 058960 MELATONIN Inactive TRINESSA (28) 0.18/0.215/0.25 MG-35 MCG TABS 1 po qd as directed TRINESSA (28) 0.18/0.215/0.25 MG-35 MCG TABS 428483 NORGESTIM-ETH ESTRAD TRIPHASIC Inactive COLACE 100 MG CAP 1 tab PO BID COLACE 100 MG CAP 1529372 DOCUSATE SODIUM Inactive ANUSOL-HC 2.5 % CREAM apply as needed ANUSOL-HC 2.5 % CREAM 723533 HYDROCORTISONE (RECTAL) Inactive ZOLOFT 50 MG TAB 1 tablet by mouth daily ZOLOFT 50 MG TAB 417565 SERTRALINE HCL Inactive CEFTIN 500 MG TAB 1 tablet by mouth twice daily for 7 days 07/24 CEFTIN 500 MG TAB 142298 CEFUROXIME AXETIL Inactive NITROFURANTOIN MACROCRYSTAL 100 MG CAPS 1 capsule PO bid x 7 days NITROFURANTOIN MACROCRYSTAL 100 MG CAPS 1264271 NITROFURANTOIN MACROCRYSTAL Inactive IBUPROFEN 800 MG TABS 1 tab every 8 hours as needed for pain 2013 IBUPROFEN 800 MG TABS 194665 IBUPROFEN Inactive COLACE 100 MG CAP 1 po BID PRN Constipation COLACE 100 MG CAP 9390013 DOCUSATE SODIUM Inactive MELOXICAM 15 MG TABS 1 po qd PRN Knee Pain MELOXICAM 15 MG TABS 522620 MELOXICAM Inactive LEVEMIR FLEXPEN 100 UNIT/ML SOLN 40 units SC at bedtime LEVEMIR FLEXPEN 100 UNIT/ML SOLN INSULIN DETEMIR Inactive GENTAMICIN SULFATE 0.1 % EXT OINT Apply to open sores once a day. GENTAMICIN SULFATE 0.1 % EXT OINT 767990 GENTAMICIN SULFATE Inactive EMBRACE BLOOD GLUCOSE TEST STRP Test blood sugars 4 times daily and PRN 08/05 EMBRACE BLOOD GLUCOSE TEST STRP GLUCOSE BLOOD Inactive LEVEMIR FLEXTOUCH 100 UNIT/ML SC SOPN 35 units SC at 12-1pm, 35 units 12-1am LEVEMIR FLEXTOUCH 100 UNIT/ML SC SOPN INSULIN DETEMIR Inactive CORTISPORIN 3.5-38192-8 SOLN 4gtts in affected ear QID x 7 days CORTISPORIN 3.5-92354-4 SOLN 149054 [id number] Inactive GEMFIBROZIL 600 MG TABS 1 po BID GEMFIBROZIL 600 MG TABS 560415 GEMFIBROZIL Inactive LIPITOR 40 MG TAB 1 po qHS LIPITOR 40 MG TAB 688277 ATORVASTATIN CALCIUM Inactive METFORMIN HCL 1000 MG TABS 1 tablet by mouth twice daily METFORMIN HCL 1000 MG TABS 701868 METFORMIN HCL Inactive TRESIBA FLEXTOUCH 200 UNIT/ML SC SOPN Take 70 units daily at mid-night to 1 am. TRESIBA FLEXTOUCH 200 UNIT/ML SC SOPN INSULIN DEGLUDEC Inactive DOXEPIN HCL 10 MG CAP 1 tablet nightly for the itch DOXEPIN HCL 10 MG CAP 2831572 DOXEPIN HCL Inactive LEVAQUIN 500 MG TABS 1 daily for infection LEVAQUIN 500 MG TABS 088343 LEVOFLOXACIN Inactive ACYCLOVIR 400 MG TABS 1 po qd ACYCLOVIR 400 MG TABS 827214 ACYCLOVIR Inactive AZITHROMYCIN 250 MG TABS take 2 po day 1 then take1 po days 2-5 AZITHROMYCIN 250 MG TABS 5055089 AZITHROMYCIN Inactive AZITHROMYCIN 250 MG TABS 2 po qd x 1 day, then 1 po qd x 4 days AZITHROMYCIN 250 MG TABS 0378695 AZITHROMYCIN Inactive ACYCLOVIR 400 MG TABS 1 pill twice daily ACYCLOVIR 400 MG TABS 19720928 ACYCLOVIR Inactive DIFLUCAN 150 MG TAB 1 qODay x 2 doses DIFLUCAN 150 MG TAB 075033 FLUCONAZOLE Inactive ACYCLOVIR 400 MG TABS ACYCLOVIR 400 MG TABS 19720928 ACYCLOVIR Inactive DIFLUCAN 150 MG TAB 1 qODay x 2 doses DIFLUCAN 150 MG TAB 19760606 FLUCONAZOLE Inactive BACTRIM DS 800-160 MG TAB 1 tab by mouth twice daily BACTRIM DS 800-160 MG TAB 568985 TRIMETHOPRIM-SULFAMETHOXAZOLE Inactive Advance Directives Directive Description Start [...] Panel - Chemistry sodium, serum 130 mmol/L 006-835 2259/10/12 carbon dioxide, venous blood 28.1 mmol/L 21.0-32.0 potassium, serum 3.9 mmol/L 3.5-5.2 chloride, serum 91 mmol/L 98-107 blood glucose 547 mg/dL 65-110 urea nitrogen, blood 3 mg/dL 7-18 creatinine, serum 0.78 mg/dL 0.55-1.30 alanine aminotransferase (SGPT), serum 11 U/L 12-78 aspartate aminotransferase (SGOT), serum 7 U/L 15-37 calcium, serum 8.8 mg/dL 8.5-10.1 bilirubin, serum, total 0.30 mg/dL 0.00-1.00 cholesterol, serum 221 mg/dL 060-077 5099/10/12 triglyceride, serum, fasting 590 mg/dL 30-200 HDL cholesterol, serum 45 mg/dL 32-96 LDL cholesterol, serum 58 mg/dL 0-130 Lab Report: HGBA1C - Chemistry hemoglobin A1C, blood, as % of total hemoglobin 11.4 % 4.3-6.0 Lab Report: UADIP W/MICRO, AUTO, CBC W/DIFF, Comp. Metabolic Panel - Chemistry RBC, urine, dipstick Negative Negative sodium, serum 133 mmol/L 019-463 9684/06/03 carbon dioxide, venous blood 33.4 mmol/L 21.0-32.0 [...] nitrite, urine, semiquantitative Negative Negative Lab Report: [facility] - Chemistry human chorionic gonadotropin, urine, qualitative [...] mg/dL Encounters Code Encounter Date Provider Facility CPT-31389 Level 3 Est. Patient 10:22:30 CDT Conner Hills MD [facility] CPT-86327 Level 3 Est. Patient 15:02:19 CDT Shreya Velazquez [facility] CPT-27498 Level 3 Est. Patient 13:22:25 CDT Gabriel Hunt [facility] CPT-06634 Level 4 Est. Patient 16:02:22 CDT Ang Markham MD [facility] CPT-54887 Level 3 Est. Patient 16:21:23 CDT Celestine Sierraisrael [facility] CPT-53343 Level 3 Est. Patient 17:02:56 CDT Gabriel Hunt [facility] CPT-69529 Level 3 Est. Patient 14:46:22 CDT Da Romero [facility] CPT-35592 Level 4 Est. Patient 13:55:20 CDT Ang Markham MD [facility] CPT-88282 Level 4 Est. Patient 16:10:09 CDT Celestine Huerta [facility] CPT-03058 Level 3 Est. Patient 13:51:24 CDT Ang Markham MD [facility] CPT-90487 Level 3 Est. Patient 18:42:15 CDT Gabriel Hunt [facility] CPT-23309 Level 5 Est. Patient 14:40:14 CDT Celestine Huerta [facility] CPT-97292 Level 4 Est. Patient 14:36:17 CDT Ang Markham MD [facility] CPT-92408 Level 3 Est. Patient 11:13:47 [employer] Ang Markham MD [facility] CPT-75810 Level 3 Est. Patient 11:59:20 [employer] Gloria Dunbar [facility] CPT-25195 Level 3 Est. Patient 17:32:37 [employer] Gloria Dunbar [facility] CPT-73701 Level 4 Est. Patient 16:39:07 CDT Ang Markham MD [facility] CPT-61397 Level 3 Est. Patient 16:35:50 CDT Ang Markham MD [facility] CPT-71066 Level 4 Est. Patient 13:53:06 [employer] Ang Markham MD [facility] CPT-22542 Level 3 Est. Patient 08:58:08 [employer] Ang Markham MD [facility] CPT-96605 Level 3 Est. Patient 18:48:29 CDT Anthony Whitfield [facility] CPT-40590 Level 3 Est. Patient 12:16:59 CDT Gabriel Hunt DO [facility] CPT-07118 Level 3 Est. Patient 18:57:15 CDT Anthony Whitfield [facility] CPT-15563 Level 3 Est. Patient 13:59:22 [employer] Ang Markham MD [facility] CPT-27586 Level 4 Est. Patient 10:36:08 [employer] Ang Markham MD [facility] CPT-52758 Level 3 Est. Patient 16:27:02 CDT Eri Borges MD PhD [facility] CPT-45840 Level 3 Est. Patient 10:36:43 CDT Octaviano Dempsey [facility] CPT-99920 Level 4 New Patient 08:58:06 CDT Ang Markham MD [facility] Procedures Code Procedure Name Date Entry Date Standard Description CPT-02272 LS spine comp w obliques - XRAY USE ONLY 15:34:48 CDT CPT-48950 Lipid - LAB USE ONLY 15:28:39 CDT CPT-69334 CMP - LAB USE ONLY 15:28:39 CDT CPT-19036 Venipuncture Draw Fee 15:28:39 CDT CPT-33277 Abd compl w upright - XRAY USE ONLY 14:09:39 CDT 02/28 CPT-28203 Venipuncture Draw Fee 12:25:15 CDT CPT-97342 Knee 3V 16:48:40 CDT CPT-OV Office Visit 16:27:13 CDT CPT-OV Office Visit 16:21:19 CDT CPT-95101 Sono pelvis non OB uterus ovaries cervix 09:37:28 CDT
--- OUTSIDE RECORDS SUMMARY | 2018-12-22 02:38 | XMS REPORT | Clinical Summary ---
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 INSULIN DEGLUDEC 25402935215 Active Celestine Sierraglari MARRIAGE COUNSELOR MINISTER Active LEVEMIR FLEXTOUCH 100 UNIT/ML SC SOPN 35 units SC at 12-1pm, 35 units 12-1am INSULIN DETEMIR 67688426167 No Longer Active Celestine PEARCE Active REGLAN 10 MG TAB 0.5 po TID 30min prior to meals METOCLOPRAMIDE HCL 76752547460 Active Ang Markham MD Active ZANTAC 150 MG TAB 1 po BID RANITIDINE HCL 11544153198 Active Ang Markham MD Active DOXEPIN HCL 10 MG CAP 1 tablet nightly for the itch DOXEPIN HCL 07608689283 Active Ang Markham MD Active COLACE 100 MG CAP 1 po daily DOCUSATE SODIUM 35696689968 Active Gabriel Hunt DO Active NOVOLOG FLEXPEN 100 UNIT/ML SOPN Take 20 units TID with meals, plus 2u/50 for blood sugars above 150. Ratio vs. Carbs INSULIN ASPART 36204252090 Active Gabriel Hunt DO Active BD PEN NEEDLE DINESH U/F 32G X 4 MM MISC 5 a day INSULIN PEN NEEDLE 12323464290 Active Janeyeh Ziglari MARRIAGE COUNSELOR MINISTER Active EMBRACE BLOOD GLUCOSE TEST STRP Test blood sugars 4 times daily and PRN 08/05 GLUCOSE BLOOD 53180631694 No Longer Active Malstepheneh Ziglari MARRIAGE COUNSELOR MINISTER Active TRUEPLUS LANCETS 30G MISC 4 a day LANCETS 93768724722 Active Maliheh Ziglari MARRIAGE COUNSELOR MINISTER Active TRUETEST TEST STRP check blood sugars 4x/day GLUCOSE BLOOD 61818264606 Active Maliheh Ziglari MARRIAGE COUNSELOR MINISTER Active TRUERESULT BLOOD GLUCOSE W/DEVICE KIT check blood sugars 4x a day BLOOD GLUCOSE MONITORING SUPPL 18793329491 Active Celestine PEARCE Active LISINOPRIL 5 MG TABS 1 po qd LISINOPRIL 03900888668 Active Ang Markham MD Active PAXIL 20 MG TAB 1 tablet by mouth daily PAROXETINE HCL 64820912968 Active Ang Markham MD Active GENTAMICIN SULFATE 0.1 % EXT OINT Apply to open sores once a day. GENTAMICIN SULFATE 85431922476 No Longer Active Ang Markham MD Active ZOLPIDEM TARTRATE 10 MG TABS 1 po qHS PRN Insomnia ZOLPIDEM TARTRATE 16627513777 Active Ang Markham MD Active BACTRIM DS 800-160 MG TAB 1 tab by mouth twice daily TRIMETHOPRIM-SULFAMETHOXAZOLE 10067573286 No Longer Active Gloria Dunbar HOME HEALTH TRAVEL OT Active LEVEMIR FLEXPEN 100 UNIT/ML SOLN 40 units SC at bedtime INSULIN DETEMIR No Longer Active Susan Arellano RMA Active INSUPEN ULTRAFIN 31G X 6 MM MISC Use with insulin qid. DX: E11.9 INSULIN PEN NEEDLE 49456557406 Active Ang Markham MD Active ZOLOFT 100 MG TAB 1 po qHS SERTRALINE HCL 86937006891 No Longer Active Ang Markham MD Active MELOXICAM 15 MG TABS 1 po qd PRN Knee Pain MELOXICAM 40708273945 No Longer Active Ang Markham MD Active LIPITOR 40 MG TAB 1 po qHS ATORVASTATIN CALCIUM 80423594551 Active Ang Markham MD Active METFORMIN HCL 1000 MG TABS 1 tablet by mouth twice daily METFORMIN HCL 93047807448 Active Ang Markham MD Active CYCLOBENZAPRINE HCL 5 MG TABS 1 po qHS PRN Muscle pain CYCLOBENZAPRINE HCL 73361646144 Active Ang Markham MD Active COLACE 100 MG CAP 1 po BID PRN Constipation DOCUSATE SODIUM 76209628647 No Longer Active Ang Markham MD Active HYDROXYZINE HCL 25 MG TAB 1 TID PRN nerves HYDROXYZINE HCL 79556105947 Active Ang Markham MD Active IBUPROFEN 800 MG TABS 1 tab every 8 hours as needed for pain 2013 IBUPROFEN 01021749205 No Longer Active Ang Markham MD Active NITROFURANTOIN MACROCRYSTAL 100 MG CAPS 1 capsule PO bid x 7 days NITROFURANTOIN MACROCRYSTAL 62508669601 No Longer Active Ang Markham MD Active DIFLUCAN 150 MG TAB 1 qODay x 2 doses FLUCONAZOLE 47551143816 No Longer Active Jillpiedad Romero HOME HEALTH TRAVEL OT Active CEFTIN 500 MG TAB 1 tablet by mouth twice daily for 7 days 07/24 CEFUROXIME AXETIL 11329250970 No Longer Active Anthony CARBONE Active ZOLOFT 50 MG TAB 1 tablet by mouth daily SERTRALINE HCL 30013132021 No Longer Active Anthony CARBONE Active ANUSOL-HC 2.5 % CREAM apply as needed HYDROCORTISONE (RECTAL) 70237587044 No Longer Active Anthony CARBONE Active COLACE 100 MG CAP 1 tab PO BID DOCUSATE SODIUM 87250754614 No Longer Active Anthony CARBONE Active TRINESSA (28) 0.18/0.215/0.25 MG-35 MCG TABS 1 po qd as directed NORGESTIM-ETH ESTRAD TRIPHASIC 51871252864 No Longer Active Anthony CARBONE Active [facility] MELATONIN 5 MG TABS 1-2 po qHS PRN Insomnia MELATONIN 94957428441 No Longer Active Anthony CARBONE Active ACYCLOVIR 400 MG TABS ACYCLOVIR 20252118911 No Longer Active Ang Markham MD Active HYDROXYZINE HCL 25 MG TABS 1 tab PO tid PRN itching HYDROXYZINE HCL 26516660854 No Longer Active Ang Markham MD Active DIFLUCAN 150 MG TAB 1 qODay x 2 doses FLUCONAZOLE 27721374297 No Longer Active Da Romero APRN Active ACYCLOVIR 400 MG TABS 1 pill twice daily ACYCLOVIR 85648987670 No Longer Active Da Romero APRN Active AZITHROMYCIN 250 MG TABS 2 po qd x 1 day, then 1 po qd x 4 days AZITHROMYCIN 93976814050 No Longer Active Eri Borges MD PhD Active AZITHROMYCIN 250 MG TABS take 2 po day 1 then take1 po days 2-5 AZITHROMYCIN 39543334782 No Longer Active Octaviano CARBONE Active ACYCLOVIR 400 MG TABS 1 po qd ACYCLOVIR 55685600886 No Longer Active Ang Markham MD Active PROZAC 40 MG CAPS 1 cap by mouth at bedtime FLUOXETINE HCL 72975980697 No Longer Active Ang Markham MD Active HYDROXYZINE HCL 25 MG TABS 1 tab PO tid PRN itching HYDROXYZINE HCL 25 MG TABS 810480 HYDROXYZINE HCL Inactive [facility] MELATONIN 5 MG TABS 1-2 po qHS PRN Insomnia [facility] MELATONIN 5 MG TABS 705771 MELATONIN Inactive TRINESSA (28) 0.18/0.215/0.25 MG-35 MCG TABS 1 po qd as directed TRINESSA (28) 0.18/0.215/0.25 MG-35 MCG TABS 025769 NORGESTIM-ETH ESTRAD TRIPHASIC Inactive COLACE 100 MG CAP 1 tab PO BID COLACE 100 MG CAP 1480764 DOCUSATE SODIUM Inactive ANUSOL-HC 2.5 % CREAM apply as needed ANUSOL-HC 2.5 % CREAM 470257 HYDROCORTISONE (RECTAL) Inactive ZOLOFT 50 MG TAB 1 tablet by mouth daily ZOLOFT 50 MG TAB 909871 SERTRALINE HCL Inactive CEFTIN 500 MG TAB 1 tablet by mouth twice daily for 7 days 07/24 CEFTIN 500 MG TAB 506028 CEFUROXIME AXETIL Inactive NITROFURANTOIN MACROCRYSTAL 100 MG CAPS 1 capsule PO bid x 7 days NITROFURANTOIN MACROCRYSTAL 100 MG CAPS 1635262 NITROFURANTOIN MACROCRYSTAL Inactive IBUPROFEN 800 MG TABS 1 tab every 8 hours as needed for pain 2013 IBUPROFEN 800 MG TABS 525763 IBUPROFEN Inactive COLACE 100 MG CAP 1 po BID PRN Constipation COLACE 100 MG CAP 8665898 DOCUSATE SODIUM Inactive MELOXICAM 15 MG TABS 1 po qd PRN Knee Pain MELOXICAM 15 MG TABS 998510 MELOXICAM Inactive LEVEMIR FLEXPEN 100 UNIT/ML SOLN 40 units SC at bedtime LEVEMIR FLEXPEN 100 UNIT/ML SOLN INSULIN DETEMIR Inactive GENTAMICIN SULFATE 0.1 % EXT OINT Apply to open sores once a day. GENTAMICIN SULFATE 0.1 % EXT OINT 407969 GENTAMICIN SULFATE Inactive EMBRACE BLOOD GLUCOSE TEST STRP Test blood sugars 4 times daily and PRN 08/05 EMBRACE BLOOD GLUCOSE TEST STRP GLUCOSE BLOOD Inactive LEVEMIR FLEXTOUCH 100 UNIT/ML SC SOPN 35 units SC at 12-1pm, 35 units 12-1am LEVEMIR FLEXTOUCH 100 UNIT/ML SC SOPN INSULIN DETEMIR Inactive CORTISPORIN 3.5-56536-9 SOLN 4gtts in affected ear QID x 7 days CORTISPORIN 3.5-43390-3 SOLN 068892 MEVVPAMY-VPMSYCRJJ-LA Inactive ACYCLOVIR 400 MG TABS 1 po qd ACYCLOVIR 400 MG TABS 829671 ACYCLOVIR Inactive AZITHROMYCIN 250 MG TABS take 2 po day 1 then take1 po days 2-5 AZITHROMYCIN 250 MG TABS 6126080 AZITHROMYCIN Inactive AZITHROMYCIN 250 MG TABS 2 po qd x 1 day, then 1 po qd x 4 days AZITHROMYCIN 250 MG TABS 7983024 AZITHROMYCIN Inactive ACYCLOVIR 400 MG TABS 1 [...] HGBA1C - Chemistry sodium, serum 134 mmol/L 998-378 4184/03/16 carbon dioxide, venous blood 34.5 mmol/L 21.0-32.0 potassium, serum 4.6 mmol/L 3.5-5.2 chloride, serum 93 mmol/L 98-107 blood glucose 408 mg/dL 65-110 urea nitrogen, blood 3 mg/dL 7-18 creatinine, serum 0.58 mg/dL 0.55-1.30 alanine aminotransferase (SGPT), serum 11 U/L 12-78 aspartate aminotransferase (SGOT), serum 8 U/L 15-37 calcium, serum 9.2 mg/dL 8.5-10.1 bilirubin, serum, total 0.30 mg/dL 0.00-1.00 cholesterol, serum 195 mg/dL 976-396 5074/03/16 triglyceride, serum, fasting 138 mg/dL 30-200 HDL [...] % 11.6-14.8 platelet count 429 10^3/MM^3 10*3/mm3 711-702 5126/03/16 mean corpuscular volume, RBC 81 fL 80-97 hematocrit, blood 40.8 % 36.0-46.0 hemoglobin, blood 13.3 g/dL 12.0-16.0 erythrocyte (RBC) count 5.06 10^6/MM^3 10*6/mm3 4.04-5.48 leukocyte count, blood 15.0 10^3/MM^3 10*3/mm3 4.6-10.2 Lab Report: Comp. Metabolic Panel, Lipid Panel - Chemistry sodium, serum 130 mmol/L 899-071 9322/10/12 carbon dioxide, venous blood 28.1 mmol/L 21.0-32.0 potassium, serum 3.9 mmol/L 3.5-5.2 chloride, serum 91 mmol/L 98-107 blood glucose 547 mg/dL 65-110 urea nitrogen, blood 3 mg/dL 7-18 creatinine, serum 0.78 mg/dL 0.55-1.30 alanine aminotransferase (SGPT), serum 11 U/L 12-78 aspartate aminotransferase (SGOT), serum 7 U/L 15-37 calcium, serum 8.8 mg/dL 8.5-10.1 bilirubin, serum, total 0.30 mg/dL 0.00-1.00 cholesterol, serum 221 mg/dL 133-473 4954/10/12 triglyceride, serum, fasting 590 mg/dL 30-200 HDL [...] Panel - Chemistry sodium, serum 133 mmol/L 025-795 2222/06/03 carbon dioxide, venous blood 33.4 mmol/L 21.0-32.0 potassium, serum 4.3 mmol/L 3.5-5.2 chloride, serum 97 mmol/L 98-107 blood glucose 450 mg/dL 65-110 urea nitrogen, blood 9 mg/dL 7-18 creatinine, serum 0.68 mg/dL 0.55-1.30 alanine aminotransferase (SGPT), serum 18 U/L 12-78 aspartate aminotransferase (SGOT), serum 15 U/L 15-37 calcium, serum 9.2 mg/dL 8.5-10.1 bilirubin, serum, total 0.20 mg/dL 0.00-1.00 RBC, urine, dipstick Negative Negative protein, total [...] Negative Negative nitrite, urine, semiquantitative Negative Negative urine color Yellow Colorless;Lightyellow;Straw;Yellow appearance, urine SlCloudy Clear specific gravity, urine 1.015 1.000-1.030 pH, urine, semiquantitative 5.5 5.0-8.5 glucose, urine, semiquantitative 3+ Negative ketones, urine, by test strip Negative Negative bilirubin, urine Negative Negative Lab Report: [facility] [...] mg/dL Encounters Code Encounter Date Provider Facility CPT-16873 Level 3 Est. Patient 13:22:25 CDT Gabriel Hunt [facility] CPT-76474 Level 4 Est. Patient 16:02:22 CDT Agn Markham MD [facility] CPT-50867 Level 3 Est. Patient 16:21:23 CDT Celestine Huerta [facility] CPT-03234 Level 3 Est. Patient 17:02:56 CDT Gabriel Hunt [facility] CPT-93299 Level 3 Est. Patient 14:46:22 CDT Da Romero [facility] CPT-93536 Level 4 Est. Patient 13:55:20 CDT Ang Markham MD [facility] CPT-61953 Level 4 Est. Patient 16:10:09 CDT Celestine Huerta [facility] CPT-12005 Level 3 Est. Patient 13:51:24 CDT Ang Markham MD [facility] CPT-39111 Level 3 Est. Patient 18:42:15 CDT Gabriel Hunt [facility] CPT-36654 Level 5 Est. Patient 14:40:14 CDT Celestine Huerta [facility] CPT-65723 Level 4 Est. Patient 14:36:17 CDT Ang Markham MD [facility] CPT-95759 Level 3 Est. Patient 11:13:47 CORROSION CONTROL FITTER Ang Markham MD [facility] CPT-82503 Level 3 Est. Patient 11:59:20 CORROSION CONTROL FITTER Gloria Dunbar [facility] CPT-53486 Level 3 Est. Patient 17:32:37 CORROSION CONTROL FITTER Gloria Dunbar [facility] CPT-16848 Level 4 Est. Patient 16:39:07 CDT Ang Markham MD [facility] CPT-80685 Level 3 Est. Patient 16:35:50 CDT Ang Markham MD [facility] CPT-12379 Level 4 Est. Patient 13:53:06 CORROSION CONTROL FITTER Ang Markham MD [facility] CPT-39081 Level 3 Est. Patient 08:58:08 CORROSION CONTROL FITTER Ang Markham MD [facility] CPT-83816 Level 3 Est. Patient 18:48:29 CDT Anthony Whitfield [facility] CPT-71207 Level 3 Est. Patient 12:16:59 CDT Gabriel Hunt DO [facility] CPT-85242 Level 3 Est. Patient 18:57:15 CDT Anthony Whitfield [facility] CPT-86258 Level 3 Est. Patient 13:59:22 CORROSION CONTROL FITTER Ang Markham MD [facility] CPT-83036 Level 4 Est. Patient 10:36:08 CORROSION CONTROL FITTER Ang Markham MD [facility] CPT-60462 Level 3 Est. Patient 16:27:02 CDT Eri Borges MD PhD [facility] CPT-54599 Level 3 Est. Patient 10:36:43 CDT Octaviano Dempsey [facility] CPT-22124 Level 4 New Patient 08:58:06 CDT Ang Markham MD [facility] Procedures Code Procedure Name Date Entry Date Standard Description CPT-04639 Lipid - LAB USE ONLY 15:28:39 CDT CPT-37893 CMP - LAB USE ONLY 15:28:39 CDT CPT-24269 Venipuncture Draw Fee 15:28:39 CDT CPT-27018 Abd compl w upright - XRAY USE ONLY 14:09:39 CDT 02/28 CPT-58904 Venipuncture Draw Fee 12:25:15 CDT CPT-45904 Knee 3V 16:48:40 CDT CPT-OV Office Visit 16:27:13 CDT CPT-OV Office Visit 16:21:19 CDT CPT-94536 Sono pelvis non OB uterus ovaries cervix 09:37:28 CDT
--- OUTSIDE RECORDS SUMMARY | 2018-12-22 02:39 | XMS REPORT | Clinical Summary ---
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 Celestine PEARCE Long-term (current) use of insulin Low back pain, acute 724.2 Active Shreya Velazquez ART SALES CONSULTANT Lumbago Pharyngitis, acute / sore throat 462 Active Shreya Velazquez APRN Acute pharyngitis Cellulitis 682.9 Active Conner Hills MD Cellulitis and abscess of unspecified sites Diarrhea, chronic 787.91 Active Da Romero ART SALES CONSULTANT Diarrhea Diabetes mellitus ICD-250.00 Inactive Ang Markham [...] Joint crepitus, knee ICD-719.66 Nathan Markham MD DEPRESSION ICD-311 Inactive Ang Markham MD Cystitis, acute ICD-595.0 Nathan Markham MD UTI ICD-599.0 Nathan Markham MD Insomnia ICD-780.52 Nathan Markham MD Diabetes mellitus ICD-250.00 Nathan Markham MD Vaginal discharge ICD-623.5 Nathan Markham MD Amenorrhea ICD-626.0 Nathan Markham MD Diabetes mellitus, type I, with hypoglycemia ICD-250.81 Nathan Markham MD 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 ICD-V58.67 Nathan Markham MD Knee pain, bilateral ICD-719.46 Nathan Markham MD Cellulitis, ankle, left ICD-682.6 Nathan Markham MD Hematochezia ICD-578.1 Nathan Markham MD Otitis externa, acute, left ICD-380.12 Nathan Markham MD Abdominal pain ICD-789.00 Inactive Ang Markham MD Nausea ICD-787.02 Inactive Ang Markham MD 06/26 Medication List Medication Instructions Start Date Stop Date Generic Name NDC Status Provider Patient Instruction COLACE 100 MG CAP 1 po daily DOCUSATE SODIUM 80026234113 No Longer Active Jillina Frazell ART SALES CONSULTANT Active CARAFATE 1 GM/10ML ORAL SUSP 5 mg four times daily SUCRALFATE 71639490014 Active Jillina Frazell ART SALES CONSULTANT Active ZANTAC 150 MG TAB 1 po BID RANITIDINE HCL 57369479275 No Longer Active Jillina Frazell ART SALES CONSULTANT Active HYDROXYZINE HCL 25 MG TAB 1 TID PRN nerves HYDROXYZINE HCL 80760659257 No Longer Active Jillina Frazell ART SALES CONSULTANT Active CLINDAMYCIN HCL 300 MG ORAL CAPS 1 four times a day CLINDAMYCIN HCL 77927069945 No Longer Active Jillina Frazell ART SALES CONSULTANT Active TYLENOL WITH CODEINE #3 300-30 MG TABS 1 every four hours as needed for pain ACETAMINOPHEN-CODEINE 72453061649 Active Conner Hills MD Active LEVAQUIN 500 MG TABS 1 daily for infection LEVOFLOXACIN 15189752121 No Longer Active Conner Hills MD Active DOXEPIN HCL 10 MG CAP 1 tablet nightly for the itch DOXEPIN HCL 45738249426 No Longer Active Conner Hills MD Active TRESIBA FLEXTOUCH 200 UNIT/ML SC SOPN Take 70 units daily at mid-night to 1 am. INSULIN DEGLUDEC 43533137544 No Longer Active Conner Hills MD Active METFORMIN HCL 1000 MG TABS 1 tablet by mouth twice daily METFORMIN HCL 85680905384 No Longer Active Conner Hills MD Active LIPITOR 40 MG TAB 1 po qHS ATORVASTATIN CALCIUM 02476757363 No Longer Active Conner Hills MD Active GEMFIBROZIL 600 MG TABS 1 po BID GEMFIBROZIL 04803888652 No Longer Active Conner Hills MD Active CORTISPORIN 3.5-35079-8 SOLN 4gtts in affected ear QID x 7 days [id number] 05206668527 No Longer Active Ang Markham MD Active LEVEMIR FLEXTOUCH 100 UNIT/ML SC SOPN 35 units SC at 12-1pm, 35 units 12-1am INSULIN DETEMIR 91610547029 No Longer Active Celestine PEARCE Active REGLAN 10 MG TAB 0.5 po TID 30min prior to meals METOCLOPRAMIDE HCL 64926289680 Active Ang Markham MD Active NOVOLOG FLEXPEN 100 UNIT/ML SOPN Take 20 units TID with meals, plus 2u/50 for blood sugars above 150. Ratio vs. Carbs INSULIN ASPART 37207751580 Active Gabriel Hunt DO Active BD PEN NEEDLE DINESH U/F 32G X 4 MM MISC 5 a day INSULIN PEN NEEDLE 83803941691 Active Malstepheneh Ziglari USED BUILDING MATERIALS YARD WORKER Active EMBRACE BLOOD GLUCOSE TEST STRP Test blood sugars 4 times daily and PRN 08/05 GLUCOSE BLOOD 18645826509 No Longer Active Maliheh Ziglari USED BUILDING MATERIALS YARD WORKER Active TRUEPLUS LANCETS 30G MISC 4 a day LANCETS 02892843781 Active Maliheh Ziglari USED BUILDING MATERIALS YARD WORKER Active TRUETEST TEST STRP check blood sugars 4x/day GLUCOSE BLOOD 12600347888 Active Maliheh Ziglari USED BUILDING MATERIALS YARD WORKER Active TRUERESULT BLOOD GLUCOSE W/DEVICE KIT check blood sugars 4x a day BLOOD GLUCOSE MONITORING SUPPL 94795135033 Active Malstepheneh Ziglari USED BUILDING MATERIALS YARD WORKER Active LISINOPRIL 5 MG TABS 1 po qd LISINOPRIL 33608153415 Active Ang Markham MD Active PAXIL 20 MG TAB 1 tablet by mouth daily PAROXETINE HCL 41312819961 Active Ang Markham MD Active GENTAMICIN SULFATE 0.1 % EXT OINT Apply to open sores once a day. GENTAMICIN SULFATE 65801879542 No Longer Active Ang Markham MD Active ZOLPIDEM TARTRATE 10 MG TABS 1 po qHS PRN Insomnia ZOLPIDEM TARTRATE 52168917597 Active Ang Markham MD Active BACTRIM DS 800-160 MG TAB 1 tab by mouth twice daily TRIMETHOPRIM-SULFAMETHOXAZOLE 74276065127 No Longer Active Gloria Yokum ART SALES CONSULTANT Active LEVEMIR FLEXPEN 100 UNIT/ML SOLN 40 units SC at bedtime INSULIN DETEMIR No Longer Active Susan Adan RMA Active INSUPEN ULTRAFIN 31G X 6 MM MISC Use with insulin qid. DX: E11.9 INSULIN PEN NEEDLE 55947942576 Active Ang Markham MD Active ZOLOFT 100 MG TAB 1 po qHS SERTRALINE HCL 72673471387 No Longer Active Ang Markham MD Active MELOXICAM 15 MG TABS 1 po qd PRN Knee Pain MELOXICAM 78020964860 No Longer Active Ang Markham MD Active CYCLOBENZAPRINE HCL 5 MG TABS 1 po qHS PRN Muscle pain CYCLOBENZAPRINE HCL 03896083694 Active Ang Markham MD Active COLACE 100 MG CAP 1 po BID PRN Constipation DOCUSATE SODIUM 96205911782 No Longer Active Ang Markham MD Active IBUPROFEN 800 MG TABS 1 tab every 8 hours as needed for pain 2013 IBUPROFEN 67203999610 No Longer Active Ang Markham MD Active NITROFURANTOIN MACROCRYSTAL 100 MG CAPS 1 capsule PO bid x 7 days NITROFURANTOIN MACROCRYSTAL 52280274066 No Longer Active Ang Markham MD Active DIFLUCAN 150 MG TAB 1 qODay x 2 doses FLUCONAZOLE 79284137657 No Longer Active Da Romero APRN Active CEFTIN 500 MG TAB 1 tablet by mouth twice daily for 7 days 07/24 CEFUROXIME AXETIL 23098546921 No Longer Active Anthony CARBONE Active ZOLOFT 50 MG TAB 1 tablet by mouth daily SERTRALINE HCL 11627213403 No Longer Active Anthony CARBONE Active ANUSOL-HC 2.5 % CREAM apply as needed HYDROCORTISONE (RECTAL) 10093363743 No Longer Active Anthony CARBONE Active COLACE 100 MG CAP 1 tab PO BID DOCUSATE SODIUM 04446028930 No Longer Active Anthony CARBONE Active TRINESSA (28) 0.18/0.215/0.25 MG-35 MCG TABS 1 po qd as directed NORGESTIM-ETH ESTRAD TRIPHASIC 72870544324 No Longer Active Anthony CARBONE Active [facility] MELATONIN 5 MG TABS 1-2 po qHS PRN Insomnia MELATONIN 66225936527 No Longer Active Anthony CARBONE Active ACYCLOVIR 400 MG TABS ACYCLOVIR 14011851104 No Longer Active Ang Markham MD Active HYDROXYZINE HCL 25 MG TABS 1 tab PO tid PRN itching HYDROXYZINE HCL 99464156443 No Longer Active Ang Markham MD Active DIFLUCAN 150 MG TAB 1 qODay x 2 doses FLUCONAZOLE 88971840325 No Longer Active Da Romero APRN Active ACYCLOVIR 400 MG TABS 1 pill twice daily ACYCLOVIR 22771458432 No Longer Active Da Romero APRN Active AZITHROMYCIN 250 MG TABS 2 po qd x 1 day, then 1 po qd x 4 days AZITHROMYCIN 47665721962 No Longer Active Eri Borges MD PhD Active AZITHROMYCIN 250 MG TABS take 2 po day 1 then take1 po days 2-5 AZITHROMYCIN 34464142329 No Longer Active Octaviano CARBONE Active ACYCLOVIR 400 MG TABS 1 po qd ACYCLOVIR 10680722796 No Longer Active Ang Markham MD Active PROZAC 40 MG CAPS 1 cap by mouth at bedtime FLUOXETINE HCL 68805264199 No Longer Active Ang Markham MD Active HYDROXYZINE HCL 25 MG TABS 1 tab PO tid PRN itching HYDROXYZINE HCL 25 MG TABS 799680 HYDROXYZINE HCL Inactive [facility] MELATONIN 5 MG TABS 1-2 po qHS PRN Insomnia [facility] MELATONIN 5 MG TABS 569691 MELATONIN Inactive TRINESSA (28) 0.18/0.215/0.25 MG-35 MCG TABS 1 po qd as directed TRINESSA (28) 0.18/0.215/0.25 MG-35 MCG TABS 617627 NORGESTIM-ETH ESTRAD TRIPHASIC Inactive COLACE 100 MG CAP 1 tab PO BID COLACE 100 MG CAP 5265749 DOCUSATE SODIUM Inactive ANUSOL-HC 2.5 % CREAM apply as needed ANUSOL-HC 2.5 % CREAM 661008 HYDROCORTISONE (RECTAL) Inactive ZOLOFT 50 MG TAB 1 tablet by mouth daily ZOLOFT 50 MG TAB 206293 SERTRALINE HCL Inactive CEFTIN 500 MG TAB 1 tablet by mouth twice daily for 7 days 07/24 CEFTIN 500 MG TAB 391383 CEFUROXIME AXETIL Inactive NITROFURANTOIN MACROCRYSTAL 100 MG CAPS 1 capsule PO bid x 7 days NITROFURANTOIN MACROCRYSTAL 100 MG CAPS 5546408 NITROFURANTOIN MACROCRYSTAL Inactive IBUPROFEN 800 MG TABS 1 tab every 8 hours as needed for pain 2013 IBUPROFEN 800 MG TABS 976627 IBUPROFEN Inactive COLACE 100 MG CAP 1 po BID PRN Constipation COLACE 100 MG CAP 5638270 DOCUSATE SODIUM Inactive MELOXICAM 15 MG TABS 1 po qd PRN Knee Pain MELOXICAM 15 MG TABS 643437 MELOXICAM Inactive LEVEMIR FLEXPEN 100 UNIT/ML SOLN 40 units SC at bedtime LEVEMIR FLEXPEN 100 UNIT/ML SOLN INSULIN DETEMIR Inactive GENTAMICIN SULFATE 0.1 % EXT OINT Apply to open sores once a day. GENTAMICIN SULFATE 0.1 % EXT OINT 374500 GENTAMICIN SULFATE Inactive EMBRACE BLOOD GLUCOSE TEST STRP Test blood sugars 4 times daily and PRN 08/05 EMBRACE BLOOD GLUCOSE TEST STRP GLUCOSE BLOOD Inactive LEVEMIR FLEXTOUCH 100 UNIT/ML SC SOPN 35 units SC at 12-1pm, 35 units 12-1am LEVEMIR FLEXTOUCH 100 UNIT/ML SC SOPN INSULIN DETEMIR Inactive CORTISPORIN 3.5-92636-4 SOLN 4gtts in affected ear QID x 7 days CORTISPORIN 3.5-13240-4 SOLN 517005 [id number] Inactive GEMFIBROZIL 600 MG TABS 1 po BID GEMFIBROZIL 600 MG TABS 003422 GEMFIBROZIL Inactive LIPITOR 40 MG TAB 1 po qHS LIPITOR 40 MG TAB 913854 ATORVASTATIN CALCIUM Inactive METFORMIN HCL 1000 MG TABS 1 tablet by mouth twice daily METFORMIN HCL 1000 MG TABS 048244 METFORMIN HCL Inactive TRESIBA FLEXTOUCH 200 UNIT/ML SC SOPN Take 70 units daily at mid-night to 1 am. TRESIBA FLEXTOUCH 200 UNIT/ML SC SOPN INSULIN DEGLUDEC Inactive DOXEPIN HCL 10 MG CAP 1 tablet nightly for the itch DOXEPIN HCL 10 MG CAP 3438391 DOXEPIN HCL Inactive LEVAQUIN 500 MG TABS 1 daily for infection LEVAQUIN 500 MG TABS 842141 LEVOFLOXACIN Inactive CLINDAMYCIN HCL 300 MG ORAL CAPS 1 four times a day CLINDAMYCIN HCL 300 MG ORAL CAPS 020241 CLINDAMYCIN HCL Inactive HYDROXYZINE HCL 25 MG TAB 1 TID PRN nerves HYDROXYZINE HCL 25 MG TAB 537533 HYDROXYZINE HCL Inactive ZANTAC 150 MG TAB 1 po BID ZANTAC 150 MG TAB 089195 RANITIDINE HCL Inactive COLACE 100 MG CAP 1 po daily COLACE 100 MG CAP 4867245 DOCUSATE SODIUM Inactive ACYCLOVIR 400 MG TABS 1 po qd ACYCLOVIR 400 MG TABS 19720928 ACYCLOVIR Inactive AZITHROMYCIN 250 MG TABS take 2 po day 1 then take1 po days 2-5 AZITHROMYCIN 250 MG TABS 5106216 AZITHROMYCIN Inactive AZITHROMYCIN 250 MG TABS 2 po qd x 1 day, then 1 po qd x 4 days AZITHROMYCIN 250 MG TABS 2342340 AZITHROMYCIN Inactive ACYCLOVIR 400 MG TABS 1 pill twice daily ACYCLOVIR 400 MG TABS 19720928 ACYCLOVIR Inactive DIFLUCAN 150 MG TAB 1 qODay x 2 doses DIFLUCAN 150 MG TAB 19760606 FLUCONAZOLE Inactive ACYCLOVIR 400 MG TABS ACYCLOVIR 400 MG TABS 19720928 ACYCLOVIR Inactive DIFLUCAN 150 MG TAB 1 qODay x 2 doses DIFLUCAN 150 MG TAB 987793 FLUCONAZOLE Inactive BACTRIM DS 800-160 MG TAB 1 tab by mouth twice daily BACTRIM DS 800-160 MG TAB 039712 TRIMETHOPRIM-SULFAMETHOXAZOLE Inactive Advance Directives Directive Description Start [...] 0.30 mg/dL 0.00-1.00 cholesterol, serum 221 mg/dL 455-399 1620/10/12 triglyceride, serum, fasting 590 mg/dL 30-200 HDL cholesterol, serum 45 mg/dL 32-96 LDL cholesterol, serum 58 mg/dL 0-130 blood glucose 547 mg/dL 65-110 chloride, serum 91 mmol/L 98-107 potassium, serum 3.9 mmol/L 3.5-5.2 carbon dioxide, venous blood 28.1 mmol/L 21.0-32.0 sodium, serum 130 mmol/L 136-145 Encounters Code Encounter Date Provider Facility CPT-69885 Level 3 Est. Patient 14:52:33 CDT Da Romero [facility] [place] CPT-58746 Level 3 Est. Patient 10:22:30 CDT Conner Hills MD [facility] CPT-69239 Level 3 Est. Patient 15:02:19 CDT Shreya Velazquez [facility] [place] CPT-90024 Level 3 Est. Patient 13:22:25 CDT Gabriel Hunt [facility] CPT-93619 Level 4 Est. Patient 16:02:22 CDT Ang Markham MD [facility] CPT-37179 Level 3 Est. Patient 16:21:23 CDT Celestine Huerta [facility] CPT-95728 Level 3 Est. Patient 17:02:56 CDT Gabriel Hunt [facility] CPT-67508 Level 3 Est. Patient 14:46:22 CDT Da Romero [facility] [place] CPT-10400 Level 4 Est. Patient 13:55:20 CDT Ang Markham MD [facility] CPT-34583 Level 4 Est. Patient 16:10:09 CDT Celestine Huerta [facility] CPT-12599 Level 3 Est. Patient 13:51:24 CDT Ang Markham MD [facility] CPT-43874 Level 3 Est. Patient 18:42:15 CDT Gabriel Hunt [facility] CPT-28622 Level 5 Est. Patient 14:40:14 CDT Celestine Huerta RAMSES [facility] CPT-22511 Level 4 Est. Patient 14:36:17 CDT Ang Markham MD [facility] CPT-79296 Level 3 Est. Patient 11:13:47 SALES REPRESENTATIVE PUBLICATIONS Ang Markham MD [facility] CPT-99663 Level 3 Est. Patient 11:59:20 SALES REPRESENTATIVE PUBLICATIONS Gloria Dunbar [facility] [place] CPT-27972 Level 3 Est. Patient 17:32:37 SALES REPRESENTATIVE PUBLICATIONS Gloria Dunbar [facility] [place] CPT-04470 Level 4 Est. Patient 16:39:07 CDT Ang Markham MD [facility] CPT-22190 Level 3 Est. Patient 16:35:50 CDT Ang Markham MD [facility] CPT-51302 Level 4 Est. Patient 13:53:06 SALES REPRESENTATIVE PUBLICATIONS Ang Markham MD [facility] CPT-67532 Level 3 Est. Patient 08:58:08 SALES REPRESENTATIVE PUBLICATIONS Ang Markham MD [facility] CPT-45995 Level 3 Est. Patient 18:48:29 CDT Anthony Whitfield [facility] CPT-97950 Level 3 Est. Patient 12:16:59 CDT Gabriel Hunt DO [facility] CPT-71787 Level 3 Est. Patient 18:57:15 CDT Anthony Whitfield [facility] CPT-07213 Level 3 Est. Patient 13:59:22 SALES REPRESENTATIVE PUBLICATIONS Ang Markham MD [facility] CPT-56891 Level 4 Est. Patient 10:36:08 SALES REPRESENTATIVE PUBLICATIONS Ang Markham MD [facility] CPT-52797 Level 3 Est. Patient 16:27:02 CDT Eri Borges MD PhD [facility] CPT-03135 Level 3 Est. Patient 10:36:43 CDT Octaviano CARBONE [facility] CPT-92432 Level 4 New Patient 08:58:06 CDT Ang Markham MD [facility] Procedures Code Procedure Name Date Entry Date Standard Description CPT-10867 LS spine comp w obliques - XRAY USE ONLY 15:34:48 CDT CPT-54808 Lipid - LAB USE ONLY 15:28:39 CDT CPT-33784 CMP - LAB USE ONLY 15:28:39 CDT CPT-84038 Venipuncture Draw Fee 15:28:39 CDT CPT-08975 Abd compl w upright - XRAY USE ONLY 14:09:39 CDT 02/28 CPT-77740 Venipuncture Draw Fee 12:25:15 CDT CPT-12226 Knee 3V 16:48:40 CDT CPT-OV Office Visit 16:27:13 CDT CPT-OV Office Visit 16:21:19 CDT CPT-02422 Sono pelvis non OB uterus ovaries cervix 09:37:28 CDT
--- OUTSIDE RECORDS SUMMARY | 2018-12-22 02:40 | XMS REPORT | Clinical Summary ---
Author Author Admin, QIE Organization [email or web address] Address Unknown Phone Unavailable Allergies, Adverse Reactions, [...] SINUSITIS, ACUTE ICD-461.9 Inactive Ang Markham MD Anal or rectal pain ICD-569.42 Inactive Ang Markham MD CANDIDAL VAGINITIS ICD-112.1 Inactive Ang Markham MD Joint crepitus, knee ICD-719.66 Inactive Ang Markham MD Knee pain, bilateral ICD-719.46 Inactive Ang Markham MD Constipation ICD-564.00 Inactive Ang Markham MD DEPRESSION ICD-311 Inactive [...] 5 MG TABS 1 po qd LISINOPRIL 30653741215 Active Ang Markham MD Active NOVOLOG FLEXPEN 100 UNIT/ML SOPN Take 20 units TID with meals INSULIN ASPART 19912207494 Active Ang Markham MD Active LEVEMIR FLEXTOUCH 100 UNIT/ML SC SOPN 60 units SC nightly INSULIN DETEMIR 59510176649 Active Codey Hdez MD Active COLACE 100 MG CAP 1 po BID PRN Constipation DOCUSATE SODIUM 74089391091 Active Ang Markham MD Active PAXIL 20 MG TAB 1 tablet by mouth daily PAROXETINE HCL 54008631968 Active Ang Markham MD Active GENTAMICIN SULFATE 0.1 % EXT OINT Apply to open sores once a day. GENTAMICIN SULFATE 11066523334 No Longer Active Ang Markham MD Active ZOLPIDEM TARTRATE 10 MG TABS 1 po qHS PRN Insomnia ZOLPIDEM TARTRATE 16565870090 Active Ang Markham MD Active BACTRIM DS 800-160 MG TAB 1 tab by mouth twice daily TRIMETHOPRIM-SULFAMETHOXAZOLE 35015501713 No Longer Active Gloriajuliette Dunbar SAWMILLING OPERATOR Active LEVEMIR FLEXPEN 100 UNIT/ML SOLN 40 units SC at bedtime INSULIN DETEMIR No Longer Active Susankalen Arellano RMA Active INSUPEN ULTRAFIN 31G X 6 MM MISC Use with insulin qid. DX: E11.9 INSULIN PEN NEEDLE 15345712358 Active Ang Markham MD Active ZOLOFT 100 MG TAB 1 po qHS SERTRALINE HCL 93372873609 No Longer Active Ang Markham MD Active MELOXICAM 15 MG TABS 1 po qd PRN Knee Pain MELOXICAM 46962190583 No Longer Active Ang Markham MD Active LIPITOR 40 MG TAB 1 po qHS ATORVASTATIN CALCIUM 57475532562 Active Ang Markham MD Active METFORMIN HCL 1000 MG TABS 1 tablet by mouth twice daily METFORMIN HCL 34254161019 Active Ang Markham MD Active CYCLOBENZAPRINE HCL 5 MG TABS 1 po qHS PRN Muscle pain CYCLOBENZAPRINE HCL 52498135428 Active Ang Markham MD Active COLACE 100 MG CAP 1 po BID PRN Constipation DOCUSATE SODIUM 34066386162 No Longer Active Ang Markham MD Active HYDROXYZINE HCL 25 MG TAB 1 TID PRN nerves HYDROXYZINE HCL 82524741008 Active Ang Markham MD Active IBUPROFEN 800 MG TABS 1 tab every 8 hours as needed for pain 2013 IBUPROFEN 97899209982 No Longer Active Ang Markham MD Active NITROFURANTOIN MACROCRYSTAL 100 MG CAPS 1 capsule PO bid x 7 days NITROFURANTOIN MACROCRYSTAL 01936237856 No Longer Active Ang Markham MD Active DIFLUCAN 150 MG TAB 1 qODay x 2 doses FLUCONAZOLE 09379954557 No Longer Active Da Romeor APRN Active CEFTIN 500 MG TAB 1 tablet by mouth twice daily for 7 days 07/24 CEFUROXIME AXETIL 93456257134 No Longer Active Anthony CARBONE Active ZOLOFT 50 MG TAB 1 tablet by mouth daily SERTRALINE HCL 80373642333 No Longer Active Anthony CARBONE Active ANUSOL-HC 2.5 % CREAM apply as needed HYDROCORTISONE (RECTAL) 86735862441 No Longer Active Anthony CARBONE Active COLACE 100 MG CAP 1 tab PO BID DOCUSATE SODIUM 41412355516 No Longer Active Anthony CARBONE Active TRINESSA (28) 0.18/0.215/0.25 MG-35 MCG TABS 1 po qd as directed NORGESTIM-ETH ESTRAD TRIPHASIC 55540066777 No Longer Active Anthony CARBONE Active [facility] MELATONIN 5 MG TABS 1-2 po qHS PRN Insomnia MELATONIN 72869103867 No Longer Active Anthony CARBONE Active ACYCLOVIR 400 MG TABS ACYCLOVIR 52256330180 No Longer Active Ang Markham MD Active EMBRACE BLOOD GLUCOSE TEST STRP Test blood sugars 4 times daily and PRN 08/05 GLUCOSE BLOOD 33839279990 Active Ang Markham MD Active HYDROXYZINE HCL 25 MG TABS 1 tab PO tid PRN itching HYDROXYZINE HCL 00839230199 No Longer Active Ang Markham MD Active DIFLUCAN 150 MG TAB 1 qODay x 2 doses FLUCONAZOLE 56110405978 No Longer Active Jillina Frazell SAWMILLING OPERATOR Active ACYCLOVIR 400 MG TABS 1 pill twice daily ACYCLOVIR 74103858622 No Longer Active Da Romero APRN Active AZITHROMYCIN 250 MG TABS 2 po qd x 1 day, then 1 po qd x 4 days AZITHROMYCIN 13314033055 No Longer Active Eri Borges MD PhD Active AZITHROMYCIN 250 MG TABS take 2 po day 1 then take1 po days 2-5 AZITHROMYCIN 78716927054 No Longer Active Octaviano Dempsey PA Active ACYCLOVIR 400 MG TABS 1 po qd ACYCLOVIR 31380720819 No Longer Active Ang Markham MD Active PROZAC 40 MG CAPS 1 cap by mouth at bedtime FLUOXETINE HCL 87857130200 No Longer Active Ang Markham MD Active HYDROXYZINE HCL 25 MG TABS 1 tab PO tid PRN itching HYDROXYZINE HCL 25 MG TABS 708787 HYDROXYZINE HCL Inactive [facility] MELAT[facility] 5 MG TABS 1-2 po qHS PRN Insomnia [facility] MELATONIN 5 MG TABS 881077 MELATONIN Inactive TRINESSA (28) 0.18/0.215/0.25 MG-35 MCG TABS 1 po qd as directed TRINESSA (28) 0.18/0.215/0.25 MG-35 MCG TABS 564935 NORGESTIM-ETH ESTRAD TRIPHASIC Inactive COLACE 100 MG CAP 1 tab PO BID COLACE 100 MG CAP 7067317 DOCUSATE SODIUM Inactive ANUSOL-HC 2.5 % CREAM apply as needed ANUSOL-HC 2.5 % CREAM 865461 HYDROCORTISONE (RECTAL) Inactive ZOLOFT 50 MG TAB 1 tablet by mouth daily ZOLOFT 50 MG TAB 099484 SERTRALINE HCL Inactive CEFTIN 500 MG TAB 1 tablet by mouth twice daily for 7 days 07/24 CEFTIN 500 MG TAB 095690 CEFUROXIME AXETIL Inactive NITROFURANTOIN MACROCRYSTAL 100 MG CAPS 1 capsule PO bid x 7 days NITROFURANTOIN MACROCRYSTAL 100 MG CAPS 4361382 NITROFURANTOIN MACROCRYSTAL Inactive IBUPROFEN 800 MG TABS 1 tab every 8 hours as needed for pain 2013 IBUPROFEN 800 MG TABS 938661 IBUPROFEN Inactive COLACE 100 MG CAP 1 po BID PRN Constipation COLACE 100 MG CAP 6843994 DOCUSATE SODIUM Inactive MELOXICAM 15 MG TABS 1 po qd PRN Knee Pain MELOXICAM 15 MG TABS 754805 MELOXICAM Inactive LEVEMIR FLEXPEN 100 UNIT/ML SOLN 40 units SC at bedtime LEVEMIR FLEXPEN 100 UNIT/ML SOLN INSULIN DETEMIR Inactive GENTAMICIN SULFATE 0.1 % EXT OINT Apply to open sores once a day. GENTAMICIN SULFATE 0.1 % EXT OINT 066189 GENTAMICIN SULFATE Inactive ACYCLOVIR 400 MG TABS 1 po qd ACYCLOVIR 400 MG TABS 19720928 ACYCLOVIR Inactive AZITHROMYCIN 250 MG TABS take 2 po day 1 then take1 po days 2-5 AZITHROMYCIN 250 MG TABS 9638066 AZITHROMYCIN Inactive AZITHROMYCIN 250 MG TABS 2 po qd x 1 day, then 1 po qd x 4 days AZITHROMYCIN 250 MG TABS 6839820 AZITHROMYCIN Inactive ACYCLOVIR 400 MG TABS 1 pill twice daily ACYCLOVIR 400 MG TABS 19720928 ACYCLOVIR Inactive DIFLUCAN 150 MG TAB 1 qODay x 2 doses DIFLUCAN 150 MG TAB 242912 FLUCONAZOLE Inactive ACYCLOVIR 400 MG TABS ACYCLOVIR 400 MG TABS 320353 ACYCLOVIR Inactive DIFLUCAN 150 MG TAB 1 qODay x 2 doses DIFLUCAN 150 MG TAB 19760606 FLUCONAZOLE Inactive BACTRIM DS 800-160 MG TAB 1 tab by mouth twice daily BACTRIM DS 800-160 MG TAB 501548 TRIMETHOPRIM-SULFAMETHOXAZOLE Inactive Advance Directives Directive Description Start [...] HGBA1C - Chemistry sodium, serum 134 mmol/L 735-531 1160/03/16 carbon dioxide, venous blood 34.5 mmol/L 21.0-32.0 potassium, serum 4.6 mmol/L 3.5-5.2 chloride, serum 93 mmol/L 98-107 blood glucose 408 mg/dL 65-110 urea nitrogen, blood 3 mg/dL 7-18 creatinine, serum 0.58 mg/dL 0.55-1.30 alanine aminotransferase (SGPT), serum 11 U/L 12-78 aspartate aminotransferase (SGOT), serum 8 U/L 15-37 calcium, serum 9.2 mg/dL 8.5-10.1 bilirubin, serum, total 0.30 mg/dL 0.00-1.00 cholesterol, serum 195 mg/dL 190-180 2724/03/16 triglyceride, serum, fasting 138 mg/dL 30-200 HDL [...] blood 15.0 10^3/MM^3 10*3/mm3 4.6-10.2 mean corpuscular hemoglobin, RBC 26.3 pg 27.0-31.2 [...] 0-19 Encounters Code Encounter Date Provider Facility CPT-38488 Level 4 Est. Patient 14:36:17 CDT Ang Markham MD [facility] CPT-98069 Level 3 Est. Patient 11:13:47 HOGSHEAD MAT ASSEMBLER Ang Markham MD [facility] CPT-73717 Level 3 Est. Patient 11:59:20 [employer]GS[employer] MAT ASSEMBLER Gloria Dunbar [facility] CPT-00700 Level 3 Est. Patient 17:32:37 HOGSHEAD MAT ASSEMBLER Gloria Dunbar [facility] CPT-29983 Level 4 Est. Patient 16:39:07 CDT Ang Markham MD [facility] CPT-41879 Level 3 Est. Patient 16:35:50 CDT Ang Markham MD [facility] CPT-06266 Level 4 Est. Patient 13:53:06 HOGSHEAD MAT ASSEMBLER Ang Markham MD [facility] CPT-75536 Level 3 Est. Patient 08:58:08 HOGSHEAD MAT ASSEMBLER Ang aMrkham MD [facility] CPT-89397 Level 3 Est. Patient 18:48:29 CDT Anthony Whitfield [facility] CPT-29071 Level 3 Est. Patient 12:16:59 CDT Gabriel Hunt DO [facility] CPT-05562 Level 3 Est. Patient 18:57:15 CDT Anthony Whitfield [facility] CPT-77595 Level 3 Est. Patient 13:59:22 HOGSHEAD MAT ASSEMBLER Ang Markham MD [facility] CPT-57296 Level 4 Est. Patient 10:36:08 HOGSHEAD MAT ASSEMBLER Ang Markham MD [facility] CPT-81199 Level 3 Est. Patient 16:27:02 CDT Eri Borges MD [facility] CPT-62216 Level 3 Est. Patient 10:36:43 CDT Octaviano Roselyn [facility] CPT-15573 Level 4 New Patient 08:58:06 CDT Ang Markham MD [facility] Procedures Code Procedure Name Date Entry Date Standard Description CPT-83137 Venipuncture Draw Fee 12:25:15 CDT CPT-15583 Knee 3V 16:48:40 CDT CPT-OV Office Visit 16:27:13 CDT CPT-OV Office Visit 16:21:19 CDT CPT-61979 Sono pelvis non OB uterus ovaries cervix 09:37:28 CDT
--- OUTSIDE RECORDS SUMMARY | 2018-12-22 02:41 | XMS REPORT | Clinical Summary ---
Author Author Admin, ALEXANDER Organization [facility] Address Unknown Phone Unavailable Allergies, Adverse Reactions, [...] Cellulitis, ankle, left 682.6 Active Gloriajuliette Dunbar AQUARIUM SPECIALIST Cellulitis and abscess of leg, except foot [...] 1 po qHS PRN Insomnia ZOLPIDEM TARTRATE 60027701050 Active Ang Markham MD Active GENTAMICIN SULFATE 0.1 % EXT OINT Apply to open sores once a day. GENTAMICIN SULFATE 08635052635 Active Gloria Yokum AQUARIUM SPECIALIST Active BACTRIM DS 800-160 MG TAB 1 tab by mouth twice daily TRIMETHOPRIM-SULFAMETHOXAZOLE 13272563798 No Longer Active Gloria Yokum AQUARIUM SPECIALIST Active LEVEMIR FLEXTOUCH 100 UNIT/ML SC SOPN 40 units SC nightly INSULIN DETEMIR 97914460134 Active Ang Markham MD Active LEVEMIR FLEXPEN 100 UNIT/ML SOLN 40 units SC at bedtime INSULIN DETEMIR No Longer Active Susan Arellano RMA Active INSUPEN ULTRAFIN 31G X 6 MM MISC Use with insulin qid. DX: E11.9 INSULIN PEN NEEDLE 14592792316 Active Ang Markham MD Active ZOLOFT 100 MG TAB 1 po qHS SERTRALINE HCL 52470504731 Active Ang Markham MD Active MELOXICAM 15 MG TABS 1 po qd PRN Knee Pain MELOXICAM 56835994921 No Longer Active Ang Markham MD Active LIPITOR 40 MG TAB 1 po qHS ATORVASTATIN CALCIUM 13816900425 Active Ang Markham MD Active METFORMIN HCL 1000 MG TABS 1 tablet by mouth twice daily METFORMIN HCL 91112126021 Active Ang Markham MD Active CYCLOBENZAPRINE HCL 5 MG TABS 1 po qHS PRN Muscle pain CYCLOBENZAPRINE HCL 36056540435 Active Ang Markham MD Active COLACE 100 MG CAP 1 po BID PRN Constipation DOCUSATE SODIUM 11937751205 No Longer Active Ang Markham MD Active HYDROXYZINE HCL 25 MG TAB 1 TID PRN nerves HYDROXYZINE HCL 19806904160 Active Ang Markham MD Active IBUPROFEN 800 MG TABS 1 tab every 8 hours as needed for pain 2013 IBUPROFEN 23365586665 No Longer Active Ang Markham MD Active NITROFURANTOIN MACROCRYSTAL 100 MG CAPS 1 capsule PO bid x 7 days NITROFURANTOIN MACROCRYSTAL 32120300979 No Longer Active Ang Markham MD Active DIFLUCAN 150 MG TAB 1 qODay x 2 doses FLUCONAZOLE 19056238517 No Longer Active Da Romero AQUARIUM SPECIALIST Active CEFTIN 500 MG TAB 1 tablet by mouth twice daily for 7 days 07/24 CEFUROXIME AXETIL 47572628658 No Longer Active Anthony CARBONE Active ZOLOFT 50 MG TAB 1 tablet by mouth daily SERTRALINE HCL 28291988711 No Longer Active Anthony CARBONE Active ANUSOL-HC 2.5 % CREAM apply as needed HYDROCORTISONE (RECTAL) 79902110717 No Longer Active Anthony CARBONE Active COLACE 100 MG CAP 1 tab PO BID DOCUSATE SODIUM 44538236386 No Longer Active Anthony CARBONE Active TRINESSA (28) 0.18/0.215/0.25 MG-35 MCG TABS 1 po qd as directed NORGESTIM-ETH ESTRAD TRIPHASIC 75739495301 No Longer Active Anthony CARBONE Active [facility] MELATONIN 5 MG TABS 1-2 po qHS PRN Insomnia MELATONIN 43160941003 No Longer Active Anthony CARBONE Active NOVOLOG FLEXPEN 100 UNIT/ML SOPN Take 18 units TID with meals INSULIN ASPART 23117028765 Active Codey Hdez MD Active ACYCLOVIR 400 MG TABS ACYCLOVIR 28792826362 No Longer Active Ang Markham MD Active EMBRACE BLOOD GLUCOSE TEST STRP Test blood sugars 4 times daily and PRN 08/05 GLUCOSE BLOOD 16916826483 Active Ang Markham MD Active HYDROXYZINE HCL 25 MG TABS 1 tab PO tid PRN itching HYDROXYZINE HCL 28446495326 No Longer Active Ang Markham MD Active DIFLUCAN 150 MG TAB 1 qODay x 2 doses FLUCONAZOLE 68432615760 No Longer Active Da Romero APRN Active ACYCLOVIR 400 MG TABS 1 pill twice daily ACYCLOVIR 56936222218 No Longer Active Da Romero APRN Active AZITHROMYCIN 250 MG TABS 2 po qd x 1 day, then 1 po qd x 4 days AZITHROMYCIN 71059167336 No Longer Active Eri Borges MD PhD Active AZITHROMYCIN 250 MG TABS take 2 po day 1 then take1 po days 2-5 AZITHROMYCIN 19729608940 No Longer Active Octaviano CARBONE Active ACYCLOVIR 400 MG TABS 1 po qd ACYCLOVIR 18739074165 No Longer Active Ang Markham MD Active PROZAC 40 MG CAPS 1 cap by mouth at bedtime FLUOXETINE HCL 16527867743 No Longer Active Ang Markham MD Active HYDROXYZINE HCL 25 MG TABS 1 tab PO tid PRN itching HYDROXYZINE HCL 25 MG TABS 314622 HYDROXYZINE HCL Inactive [facility] MEL[facility]IN 5 MG TABS 1-2 po qHS PRN Insomnia [facility] MELATONIN 5 MG TABS 867686 MELATONIN Inactive TRINESSA (28) 0.18/0.215/0.25 MG-35 MCG TABS 1 po qd as directed TRINESSA (28) 0.18/0.215/0.25 MG-35 MCG TABS 887578 NORGESTIM-ETH ESTRAD TRIPHASIC Inactive COLACE 100 MG CAP 1 tab PO BID COLACE 100 MG CAP 3691394 DOCUSATE SODIUM Inactive ANUSOL-HC 2.5 % CREAM apply as needed ANUSOL-HC 2.5 % CREAM 978837 HYDROCORTISONE (RECTAL) Inactive ZOLOFT 50 MG TAB 1 tablet by mouth daily ZOLOFT 50 MG TAB 288912 SERTRALINE HCL Inactive CEFTIN 500 MG TAB 1 tablet by mouth twice daily for 7 days 07/24 CEFTIN 500 MG TAB 518407 CEFUROXIME AXETIL Inactive NITROFURANTOIN MACROCRYSTAL 100 MG CAPS 1 capsule PO bid x 7 days NITROFURANTOIN MACROCRYSTAL 100 MG CAPS 3636575 NITROFURANTOIN MACROCRYSTAL Inactive IBUPROFEN 800 MG TABS 1 tab every 8 hours as needed for pain 2013 IBUPROFEN 800 MG TABS 960685 IBUPROFEN Inactive COLACE 100 MG CAP 1 po BID PRN Constipation COLACE 100 MG CAP 6470068 DOCUSATE SODIUM Inactive MELOXICAM 15 MG TABS 1 po qd PRN Knee Pain MELOXICAM 15 MG TABS 113367 MELOXICAM Inactive LEVEMIR FLEXPEN 100 UNIT/ML SOLN 40 units SC at bedtime LEVEMIR FLEXPEN 100 UNIT/ML SOLN INSULIN DETEMIR Inactive ACYCLOVIR 400 MG TABS 1 po qd ACYCLOVIR 400 MG TABS 19720928 ACYCLOVIR Inactive AZITHROMYCIN 250 MG TABS take 2 po day 1 then take1 po days 2-5 AZITHROMYCIN 250 MG TABS 1998450 AZITHROMYCIN Inactive AZITHROMYCIN 250 MG TABS 2 po qd x 1 day, then 1 po qd x 4 days AZITHROMYCIN 250 MG TABS 5156023 AZITHROMYCIN Inactive ACYCLOVIR 400 MG TABS 1 pill twice daily ACYCLOVIR 400 MG TABS 19720928 ACYCLOVIR Inactive DIFLUCAN 150 MG TAB 1 qODay x 2 doses DIFLUCAN 150 MG TAB 853848 FLUCONAZOLE Inactive ACYCLOVIR 400 MG TABS ACYCLOVIR 400 MG TABS 19720928 ACYCLOVIR Inactive DIFLUCAN 150 MG TAB 1 qODay x 2 doses DIFLUCAN 150 MG TAB 440225 FLUCONAZOLE Inactive BACTRIM DS 800-160 MG TAB 1 tab by mouth twice daily BACTRIM DS 800-160 MG TAB 085718 TRIMETHOPRIM-SULFAMETHOXAZOLE Inactive Advance Directives Directive Description Start [...] HGBA1C - Chemistry sodium, serum 139 mmol/L 951-733 7079/02/03 potassium, serum 4.4 mmol/L 3.5-5.2 chloride, serum 98 mmol/L 98-107 carbon dioxide, venous blood 31.5 mmol/L 21.0-32.0 blood glucose 304 mg/dL 65-110 urea nitrogen, blood 10 mg/dL 7-18 creatinine, serum 0.80 mg/dL 0.60-1.30 alanine aminotransferase (SGPT), serum 23 U/L 12-78 aspartate aminotransferase (SGOT), serum 16 U/L 15-37 calcium, serum 9.4 mg/dL 8.5-10.1 bilirubin, serum, total 0.20 mg/dL 0.00-1.00 cholesterol, serum 309 mg/dL 089-714 4191/02/03 triglyceride, serum, fasting 277 mg/dL 30-200 HDL [...] 4.3-6.0 Encounters Code Encounter Date Provider Facility CPT-42622 Level 3 Est. Patient 11:59:20 INDUSTRIAL EDITOR Gloria Dunbar [facility] CPT-31444 Level 3 Est. Patient 17:32:37 INDUSTRIAL EDITOR Gloria Dunbar [facility] CPT-57507 Level 4 Est. Patient 16:39:07 CDT Ang Markham MD [facility] CPT-47460 Level 3 Est. Patient 16:35:50 CDT Ang Markham MD [facility] CPT-14907 Level 4 Est. Patient 13:53:06 INDUSTRIAL EDITOR Ang Markham MD [facility] CPT-50591 Level 3 Est. Patient 08:58:08 INDUSTRIAL EDITOR Ang Markham MD [facility] CPT-17138 Level 3 Est. Patient 18:48:29 CDT Anthony Whitfield [facility] CPT-90116 Level 3 Est. Patient 12:16:59 CDT Gabriel Hunt DO [facility] CPT-34510 Level 3 Est. Patient 18:57:15 CDT Anthony Whitfield [facility] CPT-77588 Level 3 Est. Patient 13:59:22 INDUSTRIAL EDITOR Ang Markham MD [facility] CPT-13091 Level 4 Est. Patient 10:36:08 INDUSTRIAL EDITOR Ang Markham MD [facility] CPT-22531 Level 3 Est. Patient 16:27:02 CDT Eri Borges MD PhD [facility] CPT-59167 Level 3 Est. Patient 10:36:43 CDT Octaviano Dempsey [facility] CPT-75560 Level 4 New Patient 08:58:06 CDT Ang Markham MD [facility] Procedures Code Procedure Name Date Entry Date Standard Description CPT-48473 Venipuncture Draw Fee 12:25:15 CDT CPT-25188 Knee 3V 16:48:40 CDT CPT-OV Office Visit 16:27:13 CDT CPT-OV Office Visit 16:21:19 CDT CPT-30670 Sono pelvis non OB uterus ovaries cervix 09:37:28 CDT
--- OUTSIDE RECORDS SUMMARY | 2018-12-22 02:42 | XMS REPORT | Clinical Summary ---
Author Author Admin, E Organization [facility] Address Unknown Phone Unavailable Allergies, Adverse [...] unspecified hyperlipidemia Hematochezia 578.1 Active Jisteph Romero STAKE DRIVER Blood in stool Nausea 787.02 Active Jillina Franayal STAKE DRIVER Nausea alone Otitis externa, acute, left 380.12 [...] with hypoglycemia ICD-250.81 Inactive Ang Markham MD terminologist use 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 ICD-V58.67 Inactive Ang Markham MD Medication List Medication Instructions Start Date Stop Date Generic Name NDC Status Provider Patient Instruction REGLAN 10 MG TAB 0.5 po TID 30min prior to meals METOCLOPRAMIDE HCL 57968999900 Active Ang Markham MD Active ZANTAC 150 MG TAB 1 po BID RANITIDINE HCL 68796439147 Active Ang Markham MD Active CORTISPORIN 3.5-77821-9 SOLN 4gtts in affected ear QID x 7 days [id number] 42524137422 Active Gabriel Hunt DO Active LEVEMIR FLEXTOUCH 100 UNIT/ML SC SOPN 35 units SC at 12-1pm, 35 units 12-1am INSULIN DETEMIR 55191796528 Active Ang Markham MD Active DOXEPIN HCL 10 MG CAP 1 tablet nightly for the itch DOXEPIN HCL 50350307695 Active Gabriel Hunt DO Active COLACE 100 MG CAP 1 po daily DOCUSATE SODIUM 83038093824 Active Gabriel Hunt DO Active NOVOLOG FLEXPEN 100 UNIT/ML SOPN Take 20 units TID with meals, plus 2u/50 for blood sugars above 150. Ratio vs. Carbs INSULIN ASPART 68965895526 Active Gabriel Hunt DO Active BD PEN NEEDLE DINESH U/F 32G X 4 MM MISC 5 a day INSULIN PEN NEEDLE 08328735941 Active Maliheh Ziglari [employer]AL SURFACE FIRE SUPPORT PLANNER Active EMBRACE BLOOD GLUCOSE TEST STRP Test blood sugars 4 times daily and PRN 08/05 GLUCOSE BLOOD 08912523815 No Longer Active Maliheh Ziglari NAVAL SURFACE FIRE SUPPORT PLANNER Active TRUEPLUS LANCETS 30G MISC 4 a day LANCETS 75841620276 Active Maliheh Ziglari NAVAL SURFACE FIRE SUPPORT PLANNER Active TRUETEST TEST STRP check blood sugars 4x/day GLUCOSE BLOOD 15747128825 Active Maliheh Ziglari NAVAL SURFACE FIRE SUPPORT PLANNER Active TRUERESULT BLOOD GLUCOSE W/DEVICE KIT check blood sugars 4x a day BLOOD GLUCOSE MONITORING SUPPL 88760126622 Active Maliheh Ziglari NAVAL SURFACE FIRE SUPPORT PLANNER Active LISINOPRIL 5 MG TABS 1 po qd LISINOPRIL 95066263699 Active Ang Markham MD Active PAXIL 20 MG TAB 1 tablet by mouth daily PAROXETINE HCL 81981780021 Active Ang Markham MD Active GENTAMICIN SULFATE 0.1 % EXT OINT Apply to open sores once a day. GENTAMICIN SULFATE 19185972757 No Longer Active Ang Markham MD Active ZOLPIDEM TARTRATE 10 MG TABS 1 po qHS PRN Insomnia ZOLPIDEM TARTRATE 18850351950 Active Ang Markham MD Active BACTRIM DS 800-160 MG TAB 1 tab by mouth twice daily TRIMETHOPRIM-SULFAMETHOXAZOLE 28171855714 No Longer Active Gloria Dunbar STAKE DRIVER Active LEVEMIR FLEXPEN 100 UNIT/ML SOLN 40 units SC at bedtime INSULIN DETEMIR No Longer Active Susan Arellano RMA Active INSUPEN ULTRAFIN 31G X 6 MM MISC Use with insulin qid. DX: E11.9 INSULIN PEN NEEDLE 65607334851 Active Ang Markham MD Active ZOLOFT 100 MG TAB 1 po qHS SERTRALINE HCL 97854489699 No Longer Active Ang Markham MD Active MELOXICAM 15 MG TABS 1 po qd PRN Knee Pain MELOXICAM 12807203211 No Longer Active Ang Markham MD Active LIPITOR 40 MG TAB 1 po qHS ATORVASTATIN CALCIUM 82357705585 Active Ang Markham MD Active METFORMIN HCL 1000 MG TABS 1 tablet by mouth twice daily METFORMIN HCL 53708004246 Active Ang Markham MD Active CYCLOBENZAPRINE HCL 5 MG TABS 1 po qHS PRN Muscle pain CYCLOBENZAPRINE HCL 51644096605 Active Ang Markham MD Active COLACE 100 MG CAP 1 po BID PRN Constipation DOCUSATE SODIUM 66569141870 No Longer Active Ang Markham MD Active HYDROXYZINE HCL 25 MG TAB 1 TID PRN nerves HYDROXYZINE HCL 07919569997 Active Ang Markham MD Active IBUPROFEN 800 MG TABS 1 tab every 8 hours as needed for pain 2013 IBUPROFEN 25665710073 No Longer Active Ang Markham MD Active NITROFURANTOIN MACROCRYSTAL 100 MG CAPS 1 capsule PO bid x 7 days NITROFURANTOIN MACROCRYSTAL 85153747219 No Longer Active Ang Markham MD Active DIFLUCAN 150 MG TAB 1 qODay x 2 doses FLUCONAZOLE 66078151743 No Longer Active Da Romero APRN Active CEFTIN 500 MG TAB 1 tablet by mouth twice daily for 7 days 07/24 CEFUROXIME AXETIL 64492200673 No Longer Active Anthony CARBONE Active ZOLOFT 50 MG TAB 1 tablet by mouth daily SERTRALINE HCL 77197504646 No Longer Active Anthony CARBONE Active ANUSOL-HC 2.5 % CREAM apply as needed HYDROCORTISONE (RECTAL) 40676822425 No Longer Active Anthony CARBONE Active COLACE 100 MG CAP 1 tab PO BID DOCUSATE SODIUM 85990373539 No Longer Active Anthony CARBONE Active TRINESSA (28) 0.18/0.215/0.25 MG-35 MCG TABS 1 po qd as directed NORGESTIM-ETH ESTRAD TRIPHASIC 99747558659 No Longer Active Anthony CARBONE Active [facility] MELATONIN 5 MG TABS 1-2 po qHS PRN Insomnia MELATONIN 93352101996 No Longer Active Anthony CARBONE Active ACYCLOVIR 400 MG TABS ACYCLOVIR 70394183341 No Longer Active Ang Markham MD Active HYDROXYZINE HCL 25 MG TABS 1 tab PO tid PRN itching HYDROXYZINE HCL 19680459760 No Longer Active Ang Markham MD Active DIFLUCAN 150 MG TAB 1 qODay x 2 doses FLUCONAZOLE 64760323639 No Longer Active Da Romero APRN Active ACYCLOVIR 400 MG TABS 1 pill twice daily ACYCLOVIR 93419222838 No Longer Active Josephllina Nick OSHEA Active AZITHROMYCIN 250 MG TABS 2 po qd x 1 day, then 1 po qd x 4 days AZITHROMYCIN 56904641568 No Longer Active Eri Borges MD PhD Active AZITHROMYCIN 250 MG TABS take 2 po day 1 then take1 po days 2-5 AZITHROMYCIN 62144368191 No Longer Active Octaviano CARBONE Active ACYCLOVIR 400 MG TABS 1 po qd ACYCLOVIR 01845190044 No Longer Active Ang Markham MD Active PROZAC 40 MG CAPS 1 cap by mouth at bedtime FLUOXETINE HCL 55569168907 No Longer Active Ang Markham MD Active HYDROXYZINE HCL 25 MG TABS 1 tab PO tid PRN itching HYDROXYZINE HCL 25 MG TABS 083168 HYDROXYZINE HCL Inactive [facility] MELATONIN 5 MG TABS 1-2 po qHS PRN Insomnia [facility] MELATONIN 5 MG TABS 224034 MELATONIN Inactive TRINESSA (28) 0.18/0.215/0.25 MG-35 MCG TABS 1 po qd as directed TRINESSA (28) 0.18/0.215/0.25 MG-35 MCG TABS 773999 NORGESTIM-ETH ESTRAD TRIPHASIC Inactive COLACE 100 MG CAP 1 tab PO BID COLACE 100 MG CAP 4074745 DOCUSATE SODIUM Inactive ANUSOL-HC 2.5 % CREAM apply as needed ANUSOL-HC 2.5 % CREAM 456942 HYDROCORTISONE (RECTAL) Inactive ZOLOFT 50 MG TAB 1 tablet by mouth daily ZOLOFT 50 MG TAB 019389 SERTRALINE HCL Inactive CEFTIN 500 MG TAB 1 tablet by mouth twice daily for 7 days 07/24 CEFTIN 500 MG TAB 432979 CEFUROXIME AXETIL Inactive NITROFURANTOIN MACROCRYSTAL 100 MG CAPS 1 capsule PO bid x 7 days NITROFURANTOIN MACROCRYSTAL 100 MG CAPS 2028648 NITROFURANTOIN MACROCRYSTAL Inactive IBUPROFEN 800 MG TABS 1 tab every 8 hours as needed for pain 2013 IBUPROFEN 800 MG TABS 171089 IBUPROFEN Inactive COLACE 100 MG CAP 1 po BID PRN Constipation COLACE 100 MG CAP 4643195 DOCUSATE SODIUM Inactive MELOXICAM 15 MG TABS 1 po qd PRN Knee Pain MELOXICAM 15 MG TABS 166356 MELOXICAM Inactive LEVEMIR FLEXPEN 100 UNIT/ML SOLN 40 units SC at bedtime LEVEMIR FLEXPEN 100 UNIT/ML SOLN INSULIN DETEMIR Inactive GENTAMICIN SULFATE 0.1 % EXT OINT Apply to open sores once a day. GENTAMICIN SULFATE 0.1 % EXT OINT 112808 GENTAMICIN SULFATE Inactive EMBRACE BLOOD GLUCOSE TEST STRP Test blood sugars 4 times daily and PRN 08/05 EMBRACE BLOOD GLUCOSE TEST STRP GLUCOSE BLOOD Inactive ACYCLOVIR 400 MG TABS 1 po qd ACYCLOVIR 400 MG TABS 19720928 ACYCLOVIR Inactive AZITHROMYCIN 250 MG TABS take 2 po day 1 then take1 po days 2-5 AZITHROMYCIN 250 MG TABS 8755793 AZITHROMYCIN Inactive AZITHROMYCIN 250 MG TABS 2 po qd x 1 day, then 1 po qd x 4 days AZITHROMYCIN 250 MG TABS 8434226 AZITHROMYCIN Inactive ACYCLOVIR 400 MG TABS 1 pill twice daily ACYCLOVIR 400 MG TABS 19720928 ACYCLOVIR Inactive DIFLUCAN 150 MG TAB 1 qODay x 2 doses DIFLUCAN 150 MG TAB 221621 FLUCONAZOLE Inactive ACYCLOVIR 400 MG TABS ACYCLOVIR 400 MG TABS 19720928 ACYCLOVIR Inactive DIFLUCAN 150 MG TAB 1 qODay x 2 doses DIFLUCAN 150 MG TAB 547020 FLUCONAZOLE Inactive BACTRIM DS 800-160 MG TAB 1 tab by mouth twice daily BACTRIM DS 800-160 MG TAB 787461 TRIMETHOPRIM-SULFAMETHOXAZOLE Inactive Advance Directives Directive Description Start [...] HGBA1C - Chemistry sodium, serum 134 mmol/L 813-834 0582/03/16 carbon dioxide, venous blood 34.5 mmol/L 21.0-32.0 potassium, serum 4.6 mmol/L 3.5-5.2 chloride, serum 93 mmol/L 98-107 blood glucose 408 mg/dL 65-110 urea nitrogen, blood 3 mg/dL 7-18 creatinine, serum 0.58 mg/dL 0.55-1.30 alanine aminotransferase (SGPT), serum 11 U/L 12-78 aspartate aminotransferase (SGOT), serum 8 U/L 15-37 calcium, serum 9.2 mg/dL 8.5-10.1 bilirubin, serum, total 0.30 mg/dL 0.00-1.00 cholesterol, serum 195 mg/dL 061-205 2724/03/16 triglyceride, serum, fasting 138 mg/dL 30-200 [...] Panel - Chemistry sodium, serum 133 mmol/L 988-968 5898/06/03 carbon dioxide, venous blood 33.4 mmol/L 21.0-32.0 [...] pH, urine, semiquantitative 5.5 5.0-8.5 Lab Report: [facility] [place] - Chemistry human [...] Yes Encounters Code Encounter Date Provider Facility CPT-29446 Level 3 Est. Patient 17:02:56 CDT Gabriel Hunt [facility] CPT-53999 Level 3 Est. Patient 14:46:22 CDT Da Romero [facility] CPT-70990 Level 4 Est. Patient 13:55:20 CDT Ang Markham MD [facility] CPT-79275 Level 4 Est. Patient 16:10:09 CDT Celestine Huerta [facility] CPT-03161 Level 3 Est. Patient 13:51:24 CDT Ang Markham MD [facility] CPT-01231 Level 3 Est. Patient 18:42:15 CDT Gabriel Hunt [facility] CPT-82373 Level 5 Est. Patient 14:40:14 CDT Celestine Huerta [facility] CPT-68182 Level 4 Est. Patient 14:36:17 CDT Ang Markham MD [facility] CPT-76041 Level 3 Est. Patient 11:13:47 PROFILER Ang Markham MD [facility] CPT-58656 Level 3 Est. Patient 11:59:20 PROFILER Gloria Dunbar [facility] CPT-32311 Level 3 Est. Patient 17:32:37 PROFILER Gloria Dubnar [facility] CPT-56439 Level 4 Est. Patient 16:39:07 CDT Ang Markham MD [facility] CPT-79722 Level 3 Est. Patient 16:35:50 CDT Ang Markham MD [facility] CPT-53258 Level 4 Est. Patient 13:53:06 PROFILER Ang Markham MD [facility] CPT-54470 Level 3 Est. Patient 08:58:08 PROFILER Ang Markham MD [facility] CPT-12017 Level 3 Est. Patient 18:48:29 CDT Anthony Whitfield [facility] CPT-30522 Level 3 Est. Patient 12:16:59 CDT Gabriel Hunt DO [facility] CPT-53083 Level 3 Est. Patient 18:57:15 CDT Anthony Whitfield [facility] CPT-76570 Level 3 Est. Patient 13:59:22 PROFILER Ang Markham MD [facility] CPT-26011 Level 4 Est. Patient 10:36:08 PROFILER Ang Markham MD [facility] CPT-00030 Level 3 Est. Patient 16:27:02 CDT Eri Borges MD PhD [facility] CPT-09414 Level 3 Est. Patient 10:36:43 CDT Kellyfaviola Roselyn [facility] CPT-67899 Level 4 New Patient 08:58:06 CDT Ang Markham MD [facility] Procedures Code Procedure Name Date Entry Date Standard Description CPT-52831 Abd compl w upright - XRAY USE ONLY 14:09:39 CDT 02/28 CPT-10552 Venipuncture Draw Fee 12:25:15 CDT CPT-60549 Knee 3V 16:48:40 CDT CPT-OV Office Visit 16:27:13 CDT CPT-OV Office Visit 16:21:19 CDT CPT-47520 Sono pelvis non OB uterus ovaries cervix 09:37:28 CDT
--- OUTSIDE RECORDS SUMMARY | 2018-12-22 02:43 | XMS REPORT | Clinical Summary ---
Author Author Admin, QIE Organization [facility] Address Unknown Phone Unavailable Allergies, Adverse Reactions, [...] unspecified hyperlipidemia Hematochezia 578.1 Active Da Romero SKI LIFT OPERATOR Blood in stool Nausea 787.02 Active Da Romero SKI LIFT OPERATOR Nausea alone Otitis externa, acute, left 380.12 Active Gabriel Hunt DO Acute swimmers' ear roasterman use 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 V58.67 Active Celestine [...] Nathan Markham MD Vaginal discharge ICD-623.5 Nathan Markahm MD Amenorrhea ICD-626.0 Nathan Markham MD Cellulitis, ankle, left ICD-682.6 Nathan Markham MD Diabetes mellitus, type I, with hypoglycemia ICD-250.81 Nathan Markham MD roasterman use 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 ICD-V58.67 Nathan Markham MD Medication List Medication Instructions Start Date Stop Date Generic Name NDC Status Provider Patient Instruction TRESIBA FLEXTOUCH 200 UNIT/ML SC SOPN Take 70 units daily at mid-night to 1 am. INSULIN DEGLUDEC 22301643095 Active Maliheh Ziglari PAINT FORMULATOR Active LEVEMIR FLEXTOUCH 100 UNIT/ML SC SOPN 35 units SC at 12-1pm, 35 units 12-1am INSULIN DETEMIR 21962635927 No Longer Active Maliheh Ziglari PAINT FORMULATOR Active REGLAN 10 MG TAB 0.5 po TID 30min prior to meals METOCLOPRAMIDE HCL 36046341637 Wiley Markham MD Active ZANTAC 150 MG TAB 1 po BID RANITIDINE HCL 50053519694 Active Ang Markham MD Active CORTISPORIN 3.5-08211-8 SOLN 4gtts in affected ear QID x 7 days [id number] 00443248573 Active Gabriel Hunt DO Active DOXEPIN HCL 10 MG CAP 1 tablet nightly for the itch DOXEPIN HCL 39303102459 Active Gabriel Hunt DO Active COLACE 100 MG CAP 1 po daily DOCUSATE SODIUM 57607277947 Active Gabriel Hunt DO Active NOVOLOG FLEXPEN 100 UNIT/ML SOPN Take 20 units TID with meals, plus 2u/50 for blood sugars above 150. Ratio vs. Carbs INSULIN ASPART 38454521899 Active Gabriel Hunt DO Active BD PEN NEEDLE DINESH U/F 32G X 4 MM MISC 5 a day INSULIN PEN NEEDLE 26254243834 Active Maliheh Ziglari PAINT FORMULATOR Active EMBRACE BLOOD GLUCOSE TEST STRP Test blood sugars 4 times daily and PRN 08/05 GLUCOSE BLOOD 04533561842 No Longer Active Maliheh Ziglari PAINT FORMULATOR Active TRUEPLUS LANCETS 30G MISC 4 a day LANCETS 20181331674 Active Maliheh Ziglari PAINT FORMULATOR Active TRUETEST TEST STRP check blood sugars 4x/day GLUCOSE BLOOD 93504010354 Active Maliheh Ziglari PAINT FORMULATOR Active TRUERESULT BLOOD GLUCOSE W/DEVICE KIT check blood sugars 4x a day BLOOD GLUCOSE MONITORING SUPPL 90235394892 Active Maliheh Ziglari PAINT FORMULATOR Active LISINOPRIL 5 MG TABS 1 po qd LISINOPRIL 19679150743 Active Ang Markham MD Active PAXIL 20 MG TAB 1 tablet by mouth daily PAROXETINE HCL 95312046413 Active Ang Markham MD Active GENTAMICIN SULFATE 0.1 % EXT OINT Apply to open sores once a day. GENTAMICIN SULFATE 78123923328 No Longer Active Ang Markham MD Active ZOLPIDEM TARTRATE 10 MG TABS 1 po qHS PRN Insomnia ZOLPIDEM TARTRATE 32984140019 Active Ang Markham MD Active BACTRIM DS 800-160 MG TAB 1 tab by mouth twice daily TRIMETHOPRIM-SULFAMETHOXAZOLE 60881115290 No Longer Active Gloria Dunbar SKI LIFT OPERATOR Active LEVEMIR FLEXPEN 100 UNIT/ML SOLN 40 units SC at bedtime INSULIN DETEMIR No Longer Active Susan Arellano RMA Active INSUPEN ULTRAFIN 31G X 6 MM MISC Use with insulin qid. DX: E11.9 INSULIN PEN NEEDLE 29873521818 Active Ang Markham MD Active ZOLOFT 100 MG TAB 1 po qHS SERTRALINE HCL 06661089038 No Longer Active Ang Markham MD Active MELOXICAM 15 MG TABS 1 po qd PRN Knee Pain MELOXICAM 10170379027 No Longer Active Ang Markham MD Active LIPITOR 40 MG TAB 1 po qHS ATORVASTATIN CALCIUM 53250717565 Active Ang Markham MD Active METFORMIN HCL 1000 MG TABS 1 tablet by mouth twice daily METFORMIN HCL 29546261559 Active Ang Markham MD Active CYCLOBENZAPRINE HCL 5 MG TABS 1 po qHS PRN Muscle pain CYCLOBENZAPRINE HCL 71674328763 Active Ang Markham MD Active COLACE 100 MG CAP 1 po BID PRN Constipation DOCUSATE SODIUM 16316415204 No Longer Active Ang Markham MD Active HYDROXYZINE HCL 25 MG TAB 1 TID PRN nerves HYDROXYZINE HCL 53208333017 Active Ang Markham MD Active IBUPROFEN 800 MG TABS 1 tab every 8 hours as needed for pain 2013 IBUPROFEN 47163439161 No Longer Active Ang Markham MD Active NITROFURANTOIN MACROCRYSTAL 100 MG CAPS 1 capsule PO bid x 7 days NITROFURANTOIN MACROCRYSTAL 09736993616 No Longer Active Ang Markham MD Active DIFLUCAN 150 MG TAB 1 qODay x 2 doses FLUCONAZOLE 01015365996 No Longer Active Da Romero APRN Active CEFTIN 500 MG TAB 1 tablet by mouth twice daily for 7 days 07/24 CEFUROXIME AXETIL 12846860758 No Longer Active Anthony CARBONE Active ZOLOFT 50 MG TAB 1 tablet by mouth daily SERTRALINE HCL 21924508743 No Longer Active Anthony CARBONE Active ANUSOL-HC 2.5 % CREAM apply as needed HYDROCORTISONE (RECTAL) 69974638671 No Longer Active Anthony CARBONE Active COLACE 100 MG CAP 1 tab PO BID DOCUSATE SODIUM 31011429556 No Longer Active Anthony CARBONE Active TRINESSA (28) 0.18/0.215/0.25 MG-35 MCG TABS 1 po qd as directed NORGESTIM-ETH ESTRAD TRIPHASIC 42164243183 No Longer Active Anthony CARBONE Active [facility] MELATONIN 5 MG TABS 1-2 po qHS PRN Insomnia MELATONIN 95027799676 No Longer Active Anthony CARBONE Active ACYCLOVIR 400 MG TABS ACYCLOVIR 18997489080 No Longer Active Ang Markham MD Active HYDROXYZINE HCL 25 MG TABS 1 tab PO tid PRN itching HYDROXYZINE HCL 64102658700 No Longer Active Ang Markham MD Active DIFLUCAN 150 MG TAB 1 qODay x 2 doses FLUCONAZOLE 12900006688 No Longer Active Da Romero APRN Active ACYCLOVIR 400 MG TABS 1 pill twice daily ACYCLOVIR 29716182283 No Longer Active Da Romero APRN Active AZITHROMYCIN 250 MG TABS 2 po qd x 1 day, then 1 po qd x 4 days AZITHROMYCIN 37553100380 No Longer Active Eri Borges MD PhD Active AZITHROMYCIN 250 MG TABS take 2 po day 1 then take1 po days 2-5 AZITHROMYCIN 44018078267 No Longer Active Octaviano CARBONE Active ACYCLOVIR 400 MG TABS 1 po qd ACYCLOVIR 40537892106 No Longer Active Ang Markham MD Active PROZAC 40 MG CAPS 1 cap by mouth at bedtime FLUOXETINE HCL 18951746845 No Longer Active Ang Markham MD Active HYDROXYZINE HCL 25 MG TABS 1 tab PO tid PRN itching HYDROXYZINE HCL 25 MG TABS 153646 HYDROXYZINE HCL Inactive [facility] MELATONIN 5 MG TABS 1-2 po qHS PRN Insomnia [facility] MELATONIN 5 MG TABS 902646 MELATONIN Inactive TRINESSA (28) 0.18/0.215/0.25 MG-35 MCG TABS 1 po qd as directed TRINESSA (28) 0.18/0.215/0.25 MG-35 MCG TABS 740790 NORGESTIM-ETH ESTRAD TRIPHASIC Inactive COLACE 100 MG CAP 1 tab PO BID COLACE 100 MG CAP 7470564 DOCUSATE SODIUM Inactive ANUSOL-HC 2.5 % CREAM apply as needed ANUSOL-HC 2.5 % CREAM 408357 HYDROCORTISONE (RECTAL) Inactive ZOLOFT 50 MG TAB 1 tablet by mouth daily ZOLOFT 50 MG TAB 212291 SERTRALINE HCL Inactive CEFTIN 500 MG TAB 1 tablet by mouth twice daily for 7 days 07/24 CEFTIN 500 MG TAB 037643 CEFUROXIME AXETIL Inactive NITROFURANTOIN MACROCRYSTAL 100 MG CAPS 1 capsule PO bid x 7 days NITROFURANTOIN MACROCRYSTAL 100 MG CAPS 0054098 NITROFURANTOIN MACROCRYSTAL Inactive IBUPROFEN 800 MG TABS 1 tab every 8 hours as needed for pain 2013 IBUPROFEN 800 MG TABS 742853 IBUPROFEN Inactive COLACE 100 MG CAP 1 po BID PRN Constipation COLACE 100 MG CAP 9644865 DOCUSATE SODIUM Inactive MELOXICAM 15 MG TABS 1 po qd PRN Knee Pain MELOXICAM 15 MG TABS 326985 MELOXICAM Inactive LEVEMIR FLEXPEN 100 UNIT/ML SOLN 40 units SC at bedtime LEVEMIR FLEXPEN 100 UNIT/ML SOLN INSULIN DETEMIR Inactive GENTAMICIN SULFATE 0.1 % EXT OINT Apply to open sores once a day. GENTAMICIN SULFATE 0.1 % EXT OINT 049061 GENTAMICIN SULFATE Inactive EMBRACE BLOOD GLUCOSE TEST [...] po days 2-5 AZITHROMYCIN 250 MG TABS 8696907 AZITHROMYCIN Inactive AZITHROMYCIN 250 MG TABS 2 po qd x 1 day, then 1 po qd x 4 days AZITHROMYCIN 250 MG TABS 5703913 AZITHROMYCIN Inactive ACYCLOVIR 400 MG TABS 1 pill twice daily ACYCLOVIR 400 MG TABS 904900 ACYCLOVIR Inactive DIFLUCAN 150 MG TAB 1 qODay x 2 doses DIFLUCAN 150 MG TAB 480617 FLUCONAZOLE Inactive ACYCLOVIR 400 MG TABS ACYCLOVIR 400 MG TABS 415353 ACYCLOVIR Inactive DIFLUCAN 150 MG TAB 1 qODay x 2 doses DIFLUCAN 150 MG TAB 161509 FLUCONAZOLE Inactive BACTRIM DS 800-160 MG TAB 1 tab by mouth twice daily BACTRIM DS 800-160 MG TAB 665564 TRIMETHOPRIM-SULFAMETHOXAZOLE Inactive Advance Directives Directive Description Start [...] HGBA1C - Chemistry sodium, serum 134 mmol/L 952-118 7105/03/16 carbon dioxide, venous blood 34.5 mmol/L 21.0-32.0 potassium, serum 4.6 mmol/L 3.5-5.2 chloride, serum 93 mmol/L 98-107 blood glucose 408 mg/dL 65-110 urea nitrogen, blood 3 mg/dL 7-18 creatinine, serum 0.58 mg/dL 0.55-1.30 alanine aminotransferase (SGPT), serum 11 U/L 12-78 aspartate aminotransferase (SGOT), serum 8 U/L 15-37 calcium, serum 9.2 mg/dL 8.5-10.1 bilirubin, serum, total 0.30 mg/dL 0.00-1.00 cholesterol, serum 195 mg/dL 493-633 2333/03/16 triglyceride, serum, fasting 138 mg/dL 30-200 HDL [...] Panel - Chemistry sodium, serum 133 mmol/L 445-760 8941/06/03 carbon dioxide, venous blood 33.4 mmol/L 21.0-32.0 [...] pH, urine, semiquantitative 5.5 5.0-8.5 Lab Report: [facility] [place] Chemistry human chorionic gonadotropin, urine, qualitative [...] Yes Encounters Code Encounter Date Provider Facility CPT-77918 Level 3 Est. Patient 16:21:23 CDT Celestine PEARCE [facility] CPT-08562 Level 3 Est. Patient 17:02:56 CDT Gabriel Hunt DO [facility] CPT-44591 Level 3 Est. Patient 14:46:22 CDT Da Romero [facility] CPT-39955 Level 4 Est. Patient 13:55:20 CDT Ang Markham MD [facility] CPT-13045 Level 4 Est. Patient 16:10:09 CDT Celestine Huerta [facility] CPT-47247 Level 3 Est. Patient 13:51:24 CDT Ang Markham MD [facility] CPT-81172 Level 3 Est. Patient 18:42:15 CDT Gabriel Hunt [facility] CPT-04557 Level 5 Est. Patient 14:40:14 CDT Celestine Huerta [facility] CPT-78014 Level 4 Est. Patient 14:36:17 CDT Ang Markham MD [facility] CPT-06188 Level 3 Est. Patient 11:13:47 MANAGER GARDEN Ang Markham MD [facility] CPT-48862 Level 3 Est. Patient 11:59:20 MANAGER GARDEN Gloria Dunbar [facility] CPT-80178 Level 3 Est. Patient 17:32:37 MANAGER GARDEN Gloria Dunbar [facility] CPT-09958 Level 4 Est. Patient 16:39:07 CDT Ang Markham MD [facility] CPT-23475 Level 3 Est. Patient 16:35:50 CDT Ang Markham MD [facility] CPT-93024 Level 4 Est. Patient 13:53:06 MANAGER GARDEN Ang Markham MD [facility] CPT-86301 Level 3 Est. Patient 08:58:08 MANAGER GARDEN Ang Markham MD [facility] CPT-61799 Level 3 Est. Patient 18:48:29 CDT Anthony CARBONE [facility] CPT-76327 Level 3 Est. Patient 12:16:59 CDT Gabriel Hunt DO [facility] CPT-13443 Level 3 Est. Patient 18:57:15 CDT Anthony CARBONE [facility] CPT-92276 Level 3 Est. Patient 13:59:22 MANAGER GARDEN Ang Markham MD [facility] CPT-42093 Level 4 Est. Patient 10:36:08 MANAGER GARDEN Ang Markham MD [facility] CPT-39900 Level 3 Est. Patient 16:27:02 CDT Eri Borges MD PhD [facility] CPT-90025 Level 3 Est. Patient 10:36:43 CDT Octaviano Dempsey [facility] CPT-11553 Level 4 New Patient 08:58:06 CDT Ang Markham MD [facility] Procedures Code Procedure Name Date Entry Date Standard Description CPT-59936 Abd compl w upright - XRAY USE ONLY 14:09:39 CDT 02/28 CPT-59656 Venipuncture Draw Fee 12:25:15 CDT CPT-57586 Knee 3V 16:48:40 CDT CPT-OV Office Visit 16:27:13 CDT CPT-OV Office Visit 16:21:19 CDT CPT-39892 Sono pelvis non OB uterus ovaries cervix 09:37:28 CDT
--- OUTSIDE RECORDS SUMMARY | 2018-12-22 02:44 | XMS REPORT | Clinical Summary ---
[...] joint Knee pain, bilateral 719.46 Resolved Ang Mrakham MD Pain in joint involving lower leg [...] [juvenile type], not stated as uncontrolled terminal clerk use 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 V58.67 Active Celestine [...] tablet nightly for the itch DOXEPIN HCL 04134866993 Active Gabriel Ramos Gilbert Active COLACE 100 MG CAP 1 po daily DOCUSATE SODIUM 54331591044 Active Gabriel Hunt DO Active NOVOLOG FLEXPEN 100 UNIT/ML SOPN Take 20 units TID with meals, plus 2u/50 for blood sugars above 150. Ratio vs. Carbs INSULIN ASPART 41611510333 Active Gabriel Hunt DO Active BD PEN NEEDLE DINESH U/F 32G X 4 MM MISC 5 a day INSULIN PEN NEEDLE 41429659554 Active Maliheh Ziglari WEB DATABASE DEVELOPER Active LEVEMIR FLEXTOUCH 100 UNIT/ML SC SOPN 30 units SC at 12-1pm, 30 units 12-1am INSULIN DETEMIR 37200454955 Active Maliheh Ziglari WEB DATABASE DEVELOPER Active EMBRACE BLOOD GLUCOSE TEST STRP Test blood sugars 4 times daily and PRN 08/05 GLUCOSE BLOOD 79698911619 No Longer Active Maliheh Ziglari WEB DATABASE DEVELOPER Active TRUEPLUS LANCETS 30G MISC 4 a day LANCETS 81230904186 Active Maliheh Ziglari WEB DATABASE DEVELOPER Active TRUETEST TEST STRP check blood sugars 4x/day GLUCOSE BLOOD 59503193301 Active Maliheh Ziglari WEB DATABASE DEVELOPER Active TRUERESULT BLOOD GLUCOSE W/DEVICE KIT check blood sugars 4x a day BLOOD GLUCOSE MONITORING SUPPL 46622201923 Active Maliheh Ziglari WEB DATABASE DEVELOPER Active LISINOPRIL 5 MG TABS 1 po qd LISINOPRIL 06455242505 Active Ang Markham MD Active PAXIL 20 MG TAB 1 tablet by mouth daily PAROXETINE HCL 52404711313 Active Ang Markham MD Active GENTAMICIN SULFATE 0.1 % EXT OINT Apply to open sores once a day. GENTAMICIN SULFATE 40991621507 No Longer Active Ang Markham MD Active ZOLPIDEM TARTRATE 10 MG TABS 1 po qHS PRN Insomnia ZOLPIDEM TARTRATE 85043164721 Active Ang Markham MD Active BACTRIM DS 800-160 MG TAB 1 tab by mouth twice daily TRIMETHOPRIM-SULFAMETHOXAZOLE 04826413770 No Longer Active Gloria Dunbar RUG SETTER AXMINSTER Active LEVEMIR FLEXPEN 100 UNIT/ML SOLN 40 units SC at bedtime INSULIN DETEMIR No Longer Active Susan Arellano RMA Active INSUPEN ULTRAFIN 31G X 6 MM MISC Use with insulin qid. DX: E11.9 INSULIN PEN NEEDLE 96668978150 Active Ang Markham MD Active ZOLOFT 100 MG TAB 1 po qHS SERTRALINE HCL 37256267721 No Longer Active Ang Markham MD Active MELOXICAM 15 MG TABS 1 po qd PRN Knee Pain MELOXICAM 30463833634 No Longer Active Ang Markham MD Active LIPITOR 40 MG TAB 1 po qHS ATORVASTATIN CALCIUM 16761088260 Active Ang Markham MD Active METFORMIN HCL 1000 MG TABS 1 tablet by mouth twice daily METFORMIN HCL 06314047031 Active Ang Markham MD Active CYCLOBENZAPRINE HCL 5 MG TABS 1 po qHS PRN Muscle pain CYCLOBENZAPRINE HCL 01383175274 Active Ang Markham MD Active COLACE 100 MG CAP 1 po BID PRN Constipation DOCUSATE SODIUM 80295650671 No Longer Active Ang Markham MD Active HYDROXYZINE HCL 25 MG TAB 1 TID PRN nerves HYDROXYZINE HCL 73115784310 Active Ang Markham MD Active IBUPROFEN 800 MG TABS 1 tab every 8 hours as needed for pain 2013 IBUPROFEN 31300503410 No Longer Active Ang Markham MD Active NITROFURANTOIN MACROCRYSTAL 100 MG CAPS 1 capsule PO bid x 7 days NITROFURANTOIN MACROCRYSTAL 52683208567 No Longer Active Ang Markham MD Active DIFLUCAN 150 MG TAB 1 qODay x 2 doses FLUCONAZOLE 44631999738 No Longer Active Da Romero RUG SETTER AXMINSTER Active CEFTIN 500 MG TAB 1 tablet by mouth twice daily for 7 days 07/24 CEFUROXIME AXETIL 00400770268 No Longer Active Anthony CARBONE Active ZOLOFT 50 MG TAB 1 tablet by mouth daily SERTRALINE HCL 04013544952 No Longer Active Anthony CARBONE Active ANUSOL-HC 2.5 % CREAM apply as needed HYDROCORTISONE (RECTAL) 59467608445 No Longer Active Anthony CARBONE Active COLACE 100 MG CAP 1 tab PO BID DOCUSATE SODIUM 63688306242 No Longer Active Anthony CARBONE Active TRINESSA (28) 0.18/0.215/0.25 MG-35 MCG TABS 1 po qd as directed NORGESTIM-ETH ESTRAD TRIPHASIC 28831093024 No Longer Active Anthony CARBONE Active [facility] MELATONIN 5 MG TABS 1-2 po qHS PRN Insomnia MELATONIN 56229310823 No Longer Active Anthony CARBONE Active ACYCLOVIR 400 MG TABS ACYCLOVIR 06767505867 No Longer Active Ang Markham MD Active HYDROXYZINE HCL 25 MG TABS 1 tab PO tid PRN itching HYDROXYZINE HCL 78122294245 No Longer Active Ang Markham MD Active DIFLUCAN 150 MG TAB 1 qODay x 2 doses FLUCONAZOLE 49475777252 No Longer Active Da Romero APRN Active ACYCLOVIR 400 MG TABS 1 pill twice daily ACYCLOVIR 64443537454 No Longer Active Da Romero APRN Active AZITHROMYCIN 250 MG TABS 2 po qd x 1 day, then 1 po qd x 4 days AZITHROMYCIN 77826569590 No Longer Active Eri Borges MD PhD Active AZITHROMYCIN 250 MG TABS take 2 po day 1 then take1 po days 2-5 AZITHROMYCIN 30627547786 No Longer Active Octaviano CARBONE Active ACYCLOVIR 400 MG TABS 1 po qd ACYCLOVIR 31496200438 No Longer Active Ang Markham MD Active PROZAC 40 MG CAPS 1 cap by mouth at bedtime FLUOXETINE HCL 69242473286 No Longer Active Ang Markham MD Active HYDROXYZINE HCL 25 MG TABS 1 tab PO tid PRN itching HYDROXYZINE HCL 25 MG TABS 998838 HYDROXYZINE HCL Inactive [facility] MELATONIN 5 MG TABS 1-2 po qHS PRN Insomnia [facility] MELATONIN 5 MG TABS 714110 MELATONIN Inactive TRINESSA (28) 0.18/0.215/0.25 MG-35 MCG TABS 1 po qd as directed TRINESSA (28) 0.18/0.215/0.25 MG-35 MCG TABS 233462 NORGESTIM-ETH ESTRAD TRIPHASIC Inactive COLACE 100 MG CAP 1 tab PO BID COLACE 100 MG CAP 0542461 DOCUSATE SODIUM Inactive ANUSOL-HC 2.5 % CREAM apply as needed ANUSOL-HC 2.5 % CREAM 902599 HYDROCORTISONE (RECTAL) Inactive ZOLOFT 50 MG TAB 1 tablet by mouth daily ZOLOFT 50 MG TAB 174306 SERTRALINE HCL Inactive CEFTIN 500 MG TAB 1 tablet by mouth twice daily for 7 days 07/24 CEFTIN 500 MG TAB 404821 CEFUROXIME AXETIL Inactive NITROFURANTOIN MACROCRYSTAL 100 MG CAPS 1 capsule PO bid x 7 days NITROFURANTOIN MACROCRYSTAL 100 MG CAPS 1847091 NITROFURANTOIN MACROCRYSTAL Inactive IBUPROFEN 800 MG TABS 1 tab every 8 hours as needed for pain 2013 IBUPROFEN 800 MG TABS 444336 IBUPROFEN Inactive COLACE 100 MG CAP 1 po BID PRN Constipation COLACE 100 MG CAP 1806370 DOCUSATE SODIUM Inactive MELOXICAM 15 MG TABS 1 po qd PRN Knee Pain MELOXICAM 15 MG TABS 002425 MELOXICAM Inactive LEVEMIR FLEXPEN 100 UNIT/ML SOLN 40 units SC at bedtime LEVEMIR FLEXPEN 100 UNIT/ML SOLN INSULIN DETEMIR Inactive GENTAMICIN SULFATE 0.1 % EXT OINT Apply to open sores once a day. GENTAMICIN SULFATE 0.1 % EXT OINT 969115 GENTAMICIN SULFATE Inactive EMBRACE BLOOD GLUCOSE TEST STRP Test blood sugars 4 times daily and PRN 08/05 EMBRACE BLOOD GLUCOSE TEST STRP GLUCOSE BLOOD Inactive ACYCLOVIR 400 MG TABS 1 po qd ACYCLOVIR 400 MG TABS 19720928 ACYCLOVIR Inactive AZITHROMYCIN 250 MG TABS take 2 po day 1 then take1 po days 2-5 AZITHROMYCIN 250 MG TABS 2768959 AZITHROMYCIN Inactive AZITHROMYCIN 250 MG TABS 2 po qd x 1 day, then 1 po qd x 4 days AZITHROMYCIN 250 MG TABS 8764722 AZITHROMYCIN Inactive ACYCLOVIR 400 MG TABS 1 pill twice daily ACYCLOVIR 400 MG TABS 19720928 ACYCLOVIR Inactive DIFLUCAN 150 MG TAB 1 qODay x 2 doses DIFLUCAN 150 MG TAB 126829 FLUCONAZOLE Inactive ACYCLOVIR 400 MG TABS ACYCLOVIR 400 MG TABS 19720928 ACYCLOVIR Inactive DIFLUCAN 150 MG TAB 1 qODay x 2 doses DIFLUCAN 150 MG TAB 412552 FLUCONAZOLE Inactive BACTRIM DS 800-160 MG TAB 1 tab by mouth twice daily BACTRIM DS 800-160 MG TAB 714560 TRIMETHOPRIM-SULFAMETHOXAZOLE Inactive Advance Directives Directive Description Start [...] HGBA1C - Chemistry sodium, serum 134 mmol/L 292-298 0882/03/16 carbon dioxide, venous blood 34.5 mmol/L 21.0-32.0 potassium, serum 4.6 mmol/L 3.5-5.2 chloride, serum 93 mmol/L 98-107 blood glucose 408 mg/dL 65-110 urea nitrogen, blood 3 mg/dL 7-18 creatinine, serum 0.58 mg/dL 0.55-1.30 alanine aminotransferase (SGPT), serum 11 U/L 12-78 aspartate aminotransferase (SGOT), serum 8 U/L 15-37 calcium, serum 9.2 mg/dL 8.5-10.1 bilirubin, serum, total 0.30 mg/dL 0.00-1.00 cholesterol, serum 195 mg/dL 245-650 7576/03/16 triglyceride, serum, fasting 138 mg/dL 30-200 HDL [...] dipstick Negative Negative sodium, serum 133 mmol/L 293-000 8240/06/03 carbon dioxide, venous blood 33.4 mmol/L 21.0-32.0 [...] pH, urine, semiquantitative 5.5 5.0-8.5 Lab Report: [facility] [place] - Chemistry human chorionic gonadotropin, urine, qualitative (urine test) Negative Negative Office Visit: Diabetes Visit - Chemistry cholesterol, target level 200 mg/dL triglyceride, target level 200 mg/dL HDL cholesterol, serum, target level 35 mg/dL LDL target level 100 mg/dL home glucose monitor utilized Yes Encounters Code Encounter Date Provider Facility CPT-69438 Level 3 Est. Patient 13:51:24 CDT Ang Markham MD [facility] CPT-62226 Level 3 Est. Patient 18:42:15 CDT Gabriel Hunt DO [facility] CPT-12306 Level 5 Est. Patient 14:40:14 CDT Celestine PEARCE [facility] CPT-74810 Level 4 Est. Patient 14:36:17 CDT Ang Markham MD [facility] CPT-19745 Level 3 Est. Patient 11:13:47 GAS SCRUBBER OPERATOR Ang Markham MD [facility] CPT-25306 Level 3 Est. Patient 11:59:20 GAS SCRUBBER OPERATOR Gloria Dunbar [facility] CPT-41996 Level 3 Est. Patient 17:32:37 GAS SCRUBBER OPERATOR Gloria Dunbar [facility] CPT-70289 Level 4 Est. Patient 16:39:07 CDT Ang Markham MD [facility] CPT-38661 Level 3 Est. Patient 16:35:50 CDT Ang Markham MD [facility] CPT-69945 Level 4 Est. Patient 13:53:06 GAS SCRUBBER OPERATOR Ang Markham MD [facility] CPT-76396 Level 3 Est. Patient 08:58:08 GAS SCRUBBER OPERATOR Ang Markham MD [facility] CPT-72588 Level 3 Est. Patient 18:48:29 CDT Anthony Whitfield [facility] CPT-87170 Level 3 Est. Patient 12:16:59 CDT Gabriel Hunt DO [facility] CPT-38088 Level 3 Est. Patient 18:57:15 CDT Anthony Whitfield [facility] CPT-08368 Level 3 Est. Patient 13:59:22 GAS SCRUBBER OPERATOR Ang Markham MD [facility] CPT-89897 Level 4 Est. Patient 10:36:08 GAS SCRUBBER OPERATOR Ang Markham MD [facility] CPT-72120 Level 3 Est. Patient 16:27:02 CDT Eri Borges MD PhD [facility] CPT-59971 Level 3 Est. Patient 10:36:43 CDT Octaviano Dempsey [facility] CPT-31898 Level 4 New Patient 08:58:06 CDT Ang Markham MD [facility] Procedures Code Procedure Name Date Entry Date Standard Description CPT-34410 Abd compl w upright - XRAY USE ONLY 14:09:39 CDT 02/28 CPT-97100 Venipuncture Draw Fee 12:25:15 CDT CPT-55338 Knee 3V 16:48:40 CDT CPT-OV Office Visit 16:27:13 CDT CPT-OV Office Visit 16:21:19 CDT CPT-85747 Sono pelvis non OB uterus ovaries cervix 09:37:28 CDT
--- OUTSIDE RECORDS SUMMARY | 2018-12-22 02:44 | XMS REPORT | Clinical Summary ---
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 use 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 ICD-V58.67 Inactive Ang Markham MD Medication List Medication Instructions Start Date Stop Date Generic Name NDC Status Provider Patient Instruction CORTISPORIN 3.5-98205-7 SOLN 4gtts in affected ear QID x 7 days [id number] 08732165468 Active Gabriel Hunt DO Active LEVEMIR FLEXTOUCH 100 UNIT/ML SC SOPN 35 units SC at 12-1pm, 35 units 12-1am INSULIN DETEMIR 99898051220 Active Ang Markham MD Active DOXEPIN HCL 10 MG CAP 1 tablet nightly for the itch DOXEPIN HCL 68140336835 Active Gabriel Hunt DO Active COLACE 100 MG CAP 1 po daily DOCUSATE SODIUM 86233788696 Active Gabriel Hunt DO Active NOVOLOG FLEXPEN 100 UNIT/ML SOPN Take 20 units TID with meals, plus 2u/50 for blood sugars above 150. Ratio vs. Carbs INSULIN ASPART 03770280646 Active Gabriel Hunt DO Active BD PEN NEEDLE DINESH U/F 32G X 4 MM MISC 5 a day INSULIN PEN NEEDLE 29635804235 Active Celestine Sierraglari GAS APPLIANCE INSTALLER Active EMBRACE BLOOD GLUCOSE TEST STRP Test blood sugars 4 times daily and PRN 08/05 GLUCOSE BLOOD 13873560009 No Longer Active Celestine Sierraglari GAS APPLIANCE INSTALLER Active TRUEPLUS LANCETS 30G MISC 4 a day LANCETS 95024078485 Active Celestine Sierraglari GAS APPLIANCE INSTALLER Active TRUETEST TEST STRP check blood sugars 4x/day GLUCOSE BLOOD 84981207167 Active Celestine Sierraglari GAS APPLIANCE INSTALLER Active TRUERESULT BLOOD GLUCOSE W/DEVICE KIT check blood sugars 4x a day BLOOD GLUCOSE MONITORING SUPPL 74701035290 Active Celestine Sierraglari GAS APPLIANCE INSTALLER Active LISINOPRIL 5 MG TABS 1 po qd LISINOPRIL 68021523649 Active Ang Markham MD Active PAXIL 20 MG TAB 1 tablet by mouth daily PAROXETINE HCL 48851184774 Active Ang Markham MD Active GENTAMICIN SULFATE 0.1 % EXT OINT Apply to open sores once a day. GENTAMICIN SULFATE 90177898855 No Longer Active Ang Markham MD Active ZOLPIDEM TARTRATE 10 MG TABS 1 po qHS PRN Insomnia ZOLPIDEM TARTRATE 14890590340 Active Ang Markham MD Active BACTRIM DS 800-160 MG TAB 1 tab by mouth twice daily TRIMETHOPRIM-SULFAMETHOXAZOLE 10458409991 No Longer Active Gloria Dunbar CONE OPERATOR Active LEVEMIR FLEXPEN 100 UNIT/ML SOLN 40 units SC at bedtime INSULIN DETEMIR No Longer Active Susanbetty Arellano RMA Active INSUPEN ULTRAFIN 31G X 6 MM MISC Use with insulin qid. DX: E11.9 INSULIN PEN NEEDLE 38838712779 Active Ang Markham MD Active ZOLOFT 100 MG TAB 1 po qHS SERTRALINE HCL 13638523432 No Longer Active Ang Markham MD Active MELOXICAM 15 MG TABS 1 po qd PRN Knee Pain MELOXICAM 63183846985 No Longer Active Ang Markham MD Active LIPITOR 40 MG TAB 1 po qHS ATORVASTATIN CALCIUM 69863426486 Active Ang Markham MD Active METFORMIN HCL 1000 MG TABS 1 tablet by mouth twice daily METFORMIN HCL 68405564555 Active Ang Markham MD Active CYCLOBENZAPRINE HCL 5 MG TABS 1 po qHS PRN Muscle pain CYCLOBENZAPRINE HCL 40011436849 Active Ang Markham MD Active COLACE 100 MG CAP 1 po BID PRN Constipation DOCUSATE SODIUM 95031875966 No Longer Active Ang Markham MD Active HYDROXYZINE HCL 25 MG TAB 1 TID PRN nerves HYDROXYZINE HCL 95204123337 Active Ang Markham MD Active IBUPROFEN 800 MG TABS 1 tab every 8 hours as needed for pain 2013 IBUPROFEN 79086994867 No Longer Active Ang Markham MD Active NITROFURANTOIN MACROCRYSTAL 100 MG CAPS 1 capsule PO bid x 7 days NITROFURANTOIN MACROCRYSTAL 33670460597 No Longer Active Ang Markham MD Active DIFLUCAN 150 MG TAB 1 qODay x 2 doses FLUCONAZOLE 87193868245 No Longer Active Da Romero APRN Active CEFTIN 500 MG TAB 1 tablet by mouth twice daily for 7 days 07/24 CEFUROXIME AXETIL 90327221299 No Longer Active Anthony CARBONE Active ZOLOFT 50 MG TAB 1 tablet by mouth daily SERTRALINE HCL 75715576890 No Longer Active Anthony CARBONE Active ANUSOL-HC 2.5 % CREAM apply as needed HYDROCORTISONE (RECTAL) 50715578432 No Longer Active Anthony CARBONE Active COLACE 100 MG CAP 1 tab PO BID DOCUSATE SODIUM 67862930123 No Longer Active Anthony CARBONE Active TRINESSA (28) 0.18/0.215/0.25 MG-35 MCG TABS 1 po qd as directed NORGESTIM-ETH ESTRAD TRIPHASIC 63371640402 No Longer Active Anthony CARBONE Active [facility] MELATONIN 5 MG TABS 1-2 po qHS PRN Insomnia MELATONIN 74026117607 No Longer Active Anthony CARBONE Active ACYCLOVIR 400 MG TABS ACYCLOVIR 51828654945 No Longer Active Ang Markham MD Active HYDROXYZINE HCL 25 MG TABS 1 tab PO tid PRN itching HYDROXYZINE HCL 63479594284 No Longer Active Ang Markham MD Active DIFLUCAN 150 MG TAB 1 qODay x 2 doses FLUCONAZOLE 69535615002 No Longer Active Jillina Frazell CONE OPERATOR Active ACYCLOVIR 400 MG TABS 1 pill twice daily ACYCLOVIR 48679613891 No Longer Active Jillina Frazell CONE OPERATOR Active AZITHROMYCIN 250 MG TABS 2 po qd x 1 day, then 1 po qd x 4 days AZITHROMYCIN 55721576665 No Longer Active Eri Borges MD PhD Active AZITHROMYCIN 250 MG TABS take 2 po day 1 then take1 po days 2-5 AZITHROMYCIN 52954892425 No Longer Active Octaviano CARBONE Active ACYCLOVIR 400 MG TABS 1 po qd ACYCLOVIR 69835910220 No Longer Active Ang Markham MD Active PROZAC 40 MG CAPS 1 cap by mouth at bedtime FLUOXETINE HCL 33854065011 No Longer Active Ang Markham MD Active HYDROXYZINE HCL 25 MG TABS 1 tab PO tid PRN itching HYDROXYZINE HCL 25 MG TABS 707966 HYDROXYZINE HCL Inactive [facility] MELAT[facility]IN 5 MG TABS 1-2 po qHS PRN Insomnia [facility] MELATONIN 5 MG TABS 308011 MELATONIN Inactive TRINESSA (28) 0.18/0.215/0.25 MG-35 MCG TABS 1 po qd as directed TRINESSA (28) 0.18/0.215/0.25 MG-35 MCG TABS 669451 NORGESTIM-ETH ESTRAD TRIPHASIC Inactive COLACE 100 MG CAP 1 tab PO BID COLACE 100 MG CAP 6107924 DOCUSATE SODIUM Inactive ANUSOL-HC 2.5 % CREAM apply as needed ANUSOL-HC 2.5 % CREAM 042779 HYDROCORTISONE (RECTAL) Inactive ZOLOFT 50 MG TAB 1 tablet by mouth daily ZOLOFT 50 MG TAB 262622 SERTRALINE HCL Inactive CEFTIN 500 MG TAB 1 tablet by mouth twice daily for 7 days 07/24 CEFTIN 500 MG TAB 437586 CEFUROXIME AXETIL Inactive NITROFURANTOIN MACROCRYSTAL 100 MG CAPS 1 capsule PO bid x 7 days NITROFURANTOIN MACROCRYSTAL 100 MG CAPS 0306558 NITROFURANTOIN MACROCRYSTAL Inactive IBUPROFEN 800 MG TABS 1 tab every 8 hours as needed for pain 2013 IBUPROFEN 800 MG TABS 422821 IBUPROFEN Inactive COLACE 100 MG CAP 1 po BID PRN Constipation COLACE 100 MG CAP 7029271 DOCUSATE SODIUM Inactive MELOXICAM 15 MG TABS 1 po qd PRN Knee Pain MELOXICAM 15 MG TABS 846227 MELOXICAM Inactive LEVEMIR FLEXPEN 100 UNIT/ML SOLN 40 units SC at bedtime LEVEMIR FLEXPEN 100 UNIT/ML SOLN INSULIN DETEMIR Inactive GENTAMICIN SULFATE 0.1 % EXT OINT Apply to open sores once a day. GENTAMICIN SULFATE 0.1 % EXT OINT 664504 GENTAMICIN SULFATE Inactive EMBRACE BLOOD GLUCOSE TEST STRP Test blood sugars 4 times daily and PRN 08/05 EMBRACE BLOOD GLUCOSE TEST STRP GLUCOSE BLOOD Inactive ACYCLOVIR 400 MG TABS 1 po qd ACYCLOVIR 400 MG TABS 19720928 ACYCLOVIR Inactive AZITHROMYCIN 250 MG TABS take 2 po day 1 then take1 po days 2-5 AZITHROMYCIN 250 MG TABS 7957526 AZITHROMYCIN Inactive AZITHROMYCIN 250 MG TABS 2 po qd x 1 day, then 1 po qd x 4 days AZITHROMYCIN 250 MG TABS 4779856 AZITHROMYCIN Inactive ACYCLOVIR 400 MG TABS 1 pill twice daily ACYCLOVIR 400 MG TABS 19720928 ACYCLOVIR Inactive DIFLUCAN 150 MG TAB 1 qODay x 2 doses DIFLUCAN 150 MG TAB 19760606 FLUCONAZOLE Inactive ACYCLOVIR 400 MG TABS ACYCLOVIR 400 MG TABS 19720928 ACYCLOVIR Inactive DIFLUCAN 150 MG TAB 1 qODay x 2 doses DIFLUCAN 150 MG TAB 851129 FLUCONAZOLE Inactive BACTRIM DS 800-160 MG TAB 1 tab by mouth twice daily BACTRIM DS 800-160 MG TAB 837844 TRIMETHOPRIM-SULFAMETHOXAZOLE Inactive Advance Directives Directive Description Start [...] HGBA1C - Chemistry sodium, serum 134 mmol/L 692-835 7992/03/16 carbon dioxide, venous blood 34.5 mmol/L 21.0-32.0 potassium, serum 4.6 mmol/L 3.5-5.2 chloride, serum 93 mmol/L 98-107 blood glucose 408 mg/dL 65-110 urea nitrogen, blood 3 mg/dL 7-18 creatinine, serum 0.58 mg/dL 0.55-1.30 alanine aminotransferase (SGPT), serum 11 U/L 12-78 aspartate aminotransferase (SGOT), serum 8 U/L 15-37 calcium, serum 9.2 mg/dL 8.5-10.1 bilirubin, serum, total 0.30 mg/dL 0.00-1.00 cholesterol, serum 195 mg/dL 938-469 3532/03/16 triglyceride, serum, fasting 138 mg/dL 30-200 HDL [...] Panel - Chemistry sodium, serum 133 mmol/L 412-073 1376/06/03 carbon dioxide, venous blood 33.4 mmol/L 21.0-32.0 [...] pH, urine, semiquantitative 5.5 5.0-8.5 Lab Report: [facility] [place] Chemistry human chorionic gonadotropin, urine, qualitative [...] Yes Encounters Code Encounter Date Provider Facility CPT-52236 Level 3 Est. Patient 17:02:56 CDT Gabriel Hunt [facility] CPT-91883 Level 3 Est. Patient 14:46:22 CDT Da Romero [facility] CPT-87396 Level 4 Est. Patient 13:55:20 CDT Ang Markham MD [facility] CPT-31194 Level 4 Est. Patient 16:10:09 CDT Celestine Huerta [facility] CPT-29335 Level 3 Est. Patient 13:51:24 CDT Ang Markham MD [facility] CPT-47993 Level 3 Est. Patient 18:42:15 CDT Gabriel Hunt [facility] CPT-92044 Level 5 Est. Patient 14:40:14 CDT Celestine Huerta [facility] CPT-16338 Level 4 Est. Patient 14:36:17 CDT Ang Markham MD [facility] CPT-84454 Level 3 Est. Patient 11:13:47 NONPROFIT FINANCIAL CONTROLLER Ang Markham MD [facility] CPT-08593 Level 3 Est. Patient 11:59:20 NONPROFIT FINANCIAL CONTROLLER Gloria Dunbar [facility] CPT-83009 Level 3 Est. Patient 17:32:37 NONPROFIT FINANCIAL CONTROLLER Gloria Dunbar [facility] CPT-74192 Level 4 Est. Patient 16:39:07 CDT Ang Markham MD [facility] CPT-04097 Level 3 Est. Patient 16:35:50 CDT Ang Markham MD [facility] CPT-00280 Level 4 Est. Patient 13:53:06 NONPROFIT FINANCIAL CONTROLLER Ang Markham MD [facility] CPT-36304 Level 3 Est. Patient 08:58:08 NONPROFIT FINANCIAL CONTROLLER Ang Markham MD [facility] CPT-67444 Level 3 Est. Patient 18:48:29 CDT Anthony Whitfield [facility] CPT-27242 Level 3 Est. Patient 12:16:59 CDT Gabriel Hunt DO [facility] CPT-22476 Level 3 Est. Patient 18:57:15 CDT Anthony Whitfield [facility] CPT-25156 Level 3 Est. Patient 13:59:22 NONPROFIT FINANCIAL CONTROLLER Ang Markham MD [facility] CPT-97558 Level 4 Est. Patient 10:36:08 NONPROFIT FINANCIAL CONTROLLER Ang Markham MD [facility] CPT-71485 Level 3 Est. Patient 16:27:02 CDT Eri Borges MD PhD [facility] CPT-95268 Level 3 Est. Patient 10:36:43 CDT Octaviano Roselyn [facility] CPT-51362 Level 4 New Patient 08:58:06 CDT Ang Markham MD [facility] Procedures Code Procedure Name Date Entry Date Standard Description CPT-65481 Abd compl w upright - XRAY USE ONLY 14:09:39 CDT 02/28 CPT-35404 Venipuncture Draw Fee 12:25:15 CDT CPT-66249 Knee 3V 16:48:40 CDT CPT-OV Office Visit 16:27:13 CDT CPT-OV Office Visit 16:21:19 CDT CPT-00393 Sono pelvis non OB uterus ovaries cervix 09:37:28 CDT
--- OUTSIDE RECORDS SUMMARY | 2018-12-22 02:45 | XMS REPORT | Clinical Summary ---
Author Author Admin, QIE Organization [employer] Address Unknown Phone Unavailable Allergies, Adverse Reactions, [...] Ang Markham MD Acute swimmers' ear terminal block assembler use [...] MG TABS 1 daily for infection LEVOFLOXACIN 77210545945 Active Shreya Caroline DIRECTOR [employer] Active GEMFIBROZIL 600 MG TABS 1 po BID GEMFIBROZIL 68756547544 Active Ang Markham MD Active CORTISPORIN 3.5-05682-2 SOLN 4gtts in affected ear QID x 7 days [id number] 45314128543 No Longer Active Ang Markham MD Active TRESIBA FLEXTOUCH 200 UNIT/ML SC SOPN Take 70 units daily at mid-night to 1 am. INSULIN DEGLUDEC 35758652357 Active Celestine PEARCE Active LEVEMIR FLEXTOUCH 100 UNIT/ML SC SOPN 35 units SC at 12-1pm, 35 units 12-1am INSULIN DETEMIR 30485441597 No Longer Active Celestine PEARCE Active REGLAN 10 MG TAB 0.5 po TID 30min prior to meals METOCLOPRAMIDE HCL 90853180524 Active Ang Markham MD Active ZANTAC 150 MG TAB 1 po BID RANITIDINE HCL 81053968619 Active Ang Markham MD Active DOXEPIN HCL 10 MG CAP 1 tablet nightly for the itch DOXEPIN HCL 13145962978 Active Ang Markham MD Active COLACE 100 MG CAP 1 po daily DOCUSATE SODIUM 42257489099 Active Gabriel Hunt DO Active NOVOLOG FLEXPEN 100 UNIT/ML SOPN Take 20 units TID with meals, plus 2u/50 for blood sugars above 150. Ratio vs. Carbs INSULIN ASPART 25849561022 Active Gabriel Hunt DO Active BD PEN NEEDLE DINESH U/F 32G X 4 MM MISC 5 a day INSULIN PEN NEEDLE 32234892684 Active Celestine PEARCE Active EMBRACE BLOOD GLUCOSE TEST STRP Test blood sugars 4 times daily and PRN 08/05 GLUCOSE BLOOD 39517827818 No Longer Active Celestine Sierraglari RESEARCH QUALITY ASSURANCE ANALYST Active TRUEPLUS LANCETS 30G MISC 4 a day LANCETS 91943264505 Active Celestine Hoganari RESEARCH QUALITY ASSURANCE ANALYST Active TRUETEST TEST STRP check blood sugars 4x/day GLUCOSE BLOOD 14709015637 Active Celestine Sierraglari RESEARCH QUALITY ASSURANCE ANALYST Active TRUERESULT BLOOD GLUCOSE W/DEVICE KIT check blood sugars 4x a day BLOOD GLUCOSE MONITORING SUPPL 20229184131 Active Celestine Sierraglari RESEARCH QUALITY ASSURANCE ANALYST Active LISINOPRIL 5 MG TABS 1 po qd LISINOPRIL 28873472087 Active Ang Markham MD Active PAXIL 20 MG TAB 1 tablet by mouth daily PAROXETINE HCL 58909675420 Active Ang Markham MD Active GENTAMICIN SULFATE 0.1 % EXT OINT Apply to open sores once a day. GENTAMICIN SULFATE 61044368837 No Longer Active Ang Markham MD Active ZOLPIDEM TARTRATE 10 MG TABS 1 po qHS PRN Insomnia ZOLPIDEM TARTRATE 09801813256 Active Ang Markham MD Active BACTRIM DS 800-160 MG TAB 1 tab by mouth twice daily TRIMETHOPRIM-SULFAMETHOXAZOLE 80776781380 No Longer Active Gloriajuliette Goveaharlan DIRECTOR [employer] Active LEVEMIR FLEXPEN 100 UNIT/ML SOLN 40 units SC at bedtime INSULIN DETEMIR No Longer Active Susan Adan RMA Active INSUPEN ULTRAFIN 31G X 6 MM MISC Use with insulin qid. DX: E11.9 INSULIN PEN NEEDLE 57581953319 Active Ang Markham MD Active ZOLOFT 100 MG TAB 1 po qHS SERTRALINE HCL 24878621697 No Longer Active Ang Markham MD Active MELOXICAM 15 MG TABS 1 po qd PRN Knee Pain MELOXICAM 40701245143 No Longer Active Ang Markham MD Active LIPITOR 40 MG TAB 1 po qHS ATORVASTATIN CALCIUM 34300879119 Active Ang Markham MD Active METFORMIN HCL 1000 MG TABS 1 tablet by mouth twice daily METFORMIN HCL 62204723858 Active Ang Markham MD Active CYCLOBENZAPRINE HCL 5 MG TABS 1 po qHS PRN Muscle pain CYCLOBENZAPRINE HCL 19278309497 Active Ang Markham MD Active COLACE 100 MG CAP 1 po BID PRN Constipation DOCUSATE SODIUM 28187453850 No Longer Active Ang Markham MD Active HYDROXYZINE HCL 25 MG TAB 1 TID PRN nerves HYDROXYZINE HCL 01632307888 Active Ang Markham MD Active IBUPROFEN 800 MG TABS 1 tab every 8 hours as needed for pain 2013 IBUPROFEN 91165453570 No Longer Active Ang Markham MD Active NITROFURANTOIN MACROCRYSTAL 100 MG CAPS 1 capsule PO bid x 7 days NITROFURANTOIN MACROCRYSTAL 37456009585 No Longer Active Ang Markham MD Active DIFLUCAN 150 MG TAB 1 qODay x 2 doses FLUCONAZOLE 86866642382 No Longer Active Jillpiedad Nguyenl DAYO Active CEFTIN 500 MG TAB 1 tablet by mouth twice daily for 7 days 07/24 CEFUROXIME AXETIL 48234590137 No Longer Active Anthony CARBONE Active ZOLOFT 50 MG TAB 1 tablet by mouth daily SERTRALINE HCL 54318818834 No Longer Active Anthony CARBONE Active ANUSOL-HC 2.5 % CREAM apply as needed HYDROCORTISONE (RECTAL) 83770044413 No Longer Active Anthony CARBONE Active COLACE 100 MG CAP 1 tab PO BID DOCUSATE SODIUM 52577985960 No Longer Active Anthony CARBONE Active TRINESSA (28) 0.18/0.215/0.25 MG-35 MCG TABS 1 po qd as directed NORGESTIM-ETH ESTRAD TRIPHASIC 38701603520 No Longer Active Anthony CARBONE Active [facility] MELATONIN 5 MG TABS 1-2 po qHS PRN Insomnia MELATONIN 66896734498 No Longer Active Anthony CARBONE Active ACYCLOVIR 400 MG TABS ACYCLOVIR 05273602502 No Longer Active Ang Markham MD Active HYDROXYZINE HCL 25 MG TABS 1 tab PO tid PRN itching HYDROXYZINE HCL 34906470892 No Longer Active Ang Markham MD Active DIFLUCAN 150 MG TAB 1 qODay x 2 doses FLUCONAZOLE 02294826316 No Longer Active Jillina Frazell [employer] Active ACYCLOVIR 400 MG TABS 1 pill twice daily ACYCLOVIR 32697904025 No Longer Active Jillina Frazell [employer] Active AZITHROMYCIN 250 MG TABS 2 po qd x 1 day, then 1 po qd x 4 days AZITHROMYCIN 59223953940 No Longer Active Eri Borges MD PhD Active AZITHROMYCIN 250 MG TABS take 2 po day 1 then take1 po days 2-5 AZITHROMYCIN 51807045240 No Longer Active Octaviano CARBONE Active ACYCLOVIR 400 MG TABS 1 po qd ACYCLOVIR 43439245889 No Longer Active Ang Markham MD Active PROZAC 40 MG CAPS 1 cap by mouth at bedtime FLUOXETINE HCL 33650156159 No Longer Active Ang Markham MD Active HYDROXYZINE HCL 25 MG TABS 1 tab PO tid PRN itching HYDROXYZINE HCL 25 MG TABS 387386 HYDROXYZINE HCL Inactive [facility] MELATONIN 5 MG TABS 1-2 po qHS PRN Insomnia [facility] MELATONIN 5 MG TABS 013228 MELATONIN Inactive TRINESSA (28) 0.18/0.215/0.25 MG-35 MCG TABS 1 po qd as directed TRINESSA (28) 0.18/0.215/0.25 MG-35 MCG TABS 596811 NORGESTIM-ETH ESTRAD TRIPHASIC Inactive COLACE 100 MG CAP 1 tab PO BID COLACE 100 MG CAP 1697492 DOCUSATE SODIUM Inactive ANUSOL-HC 2.5 % CREAM apply as needed ANUSOL-HC 2.5 % CREAM 077640 HYDROCORTISONE (RECTAL) Inactive ZOLOFT 50 MG TAB 1 tablet by mouth daily ZOLOFT 50 MG TAB 253432 SERTRALINE HCL Inactive CEFTIN 500 MG TAB 1 tablet by mouth twice daily for 7 days 07/24 CEFTIN 500 MG TAB 725380 CEFUROXIME AXETIL Inactive NITROFURANTOIN MACROCRYSTAL 100 MG CAPS 1 capsule PO bid x 7 days NITROFURANTOIN MACROCRYSTAL 100 MG CAPS 1677561 NITROFURANTOIN MACROCRYSTAL Inactive IBUPROFEN 800 MG TABS 1 tab every 8 hours as needed for pain 2013 IBUPROFEN 800 MG TABS 070435 IBUPROFEN Inactive COLACE 100 MG CAP 1 po BID PRN Constipation COLACE 100 MG CAP 7164538 DOCUSATE SODIUM Inactive MELOXICAM 15 MG TABS 1 po qd PRN Knee Pain MELOXICAM 15 MG TABS 232564 MELOXICAM Inactive LEVEMIR FLEXPEN 100 UNIT/ML SOLN 40 units SC at bedtime LEVEMIR FLEXPEN 100 UNIT/ML SOLN INSULIN DETEMIR Inactive GENTAMICIN SULFATE 0.1 % EXT OINT Apply to open sores once a day. GENTAMICIN SULFATE 0.1 % EXT OINT 160463 GENTAMICIN SULFATE Inactive EMBRACE BLOOD GLUCOSE TEST STRP Test blood sugars 4 times daily and PRN 08/05 EMBRACE BLOOD GLUCOSE TEST STRP GLUCOSE BLOOD Inactive LEVEMIR FLEXTOUCH 100 UNIT/ML SC SOPN 35 units SC at 12-1pm, 35 units 12-1am LEVEMIR FLEXTOUCH 100 UNIT/ML SC SOPN INSULIN DETEMIR Inactive CORTISPORIN 3.5-71404-3 SOLN 4gtts in affected ear QID x 7 days CORTISPORIN 3.5-12143-4 [facility] 460994 [id number]-[id number] Inactive ACYCLOVIR 400 MG TABS 1 po qd ACYCLOVIR 400 MG TABS 19720928 ACYCLOVIR Inactive AZITHROMYCIN 250 MG TABS take 2 po day 1 then take1 po days 2-5 AZITHROMYCIN 250 MG TABS 3081835 AZITHROMYCIN Inactive AZITHROMYCIN 250 MG TABS 2 po qd x 1 day, then 1 po qd x 4 days AZITHROMYCIN 250 MG TABS 5316326 AZITHROMYCIN Inactive ACYCLOVIR 400 MG TABS 1 pill twice daily ACYCLOVIR 400 MG TABS 19720928 ACYCLOVIR Inactive DIFLUCAN 150 MG TAB 1 qODay x 2 doses DIFLUCAN 150 MG TAB 19760606 FLUCONAZOLE Inactive ACYCLOVIR 400 MG TABS ACYCLOVIR 400 MG TABS 19720928 ACYCLOVIR Inactive DIFLUCAN 150 MG TAB 1 qODay x 2 doses DIFLUCAN 150 MG TAB 203656 FLUCONAZOLE Inactive BACTRIM DS 800-160 MG TAB 1 tab by mouth twice daily BACTRIM DS 800-160 MG TAB 082497 TRIMETHOPRIM-SULFAMETHOXAZOLE Inactive Advance Directives Directive Description Start [...] Panel - Chemistry sodium, serum 130 mmol/L 979-426 4182/10/12 carbon dioxide, venous blood 28.1 mmol/L 21.0-32.0 potassium, serum 3.9 mmol/L 3.5-5.2 chloride, serum 91 mmol/L 98-107 blood glucose 547 mg/dL 65-110 urea nitrogen, blood 3 mg/dL 7-18 creatinine, serum 0.78 mg/dL 0.55-1.30 alanine aminotransferase (SGPT), serum 11 U/L 12-78 aspartate aminotransferase (SGOT), serum 7 U/L 15-37 calcium, serum 8.8 mg/dL 8.5-10.1 bilirubin, serum, total 0.30 mg/dL 0.00-1.00 cholesterol, serum 221 mg/dL 263-039 0323/10/12 triglyceride, serum, fasting 590 mg/dL 30-200 HDL cholesterol, serum 45 mg/dL 32-96 LDL cholesterol, serum 58 mg/dL 0-130 Lab Report: HGBA1C - Chemistry hemoglobin A1C, blood, as % of total hemoglobin 11.4 % 4.3-6.0 Lab Report: UADIP W/MICRO, AUTO, CBC W/DIFF, Comp. Metabolic Panel - Chemistry RBC, urine, dipstick Negative Negative sodium, serum 133 mmol/L 388-456 9489/06/03 carbon dioxide, venous blood 33.4 mmol/L 21.0-32.0 [...] nitrite, urine, semiquantitative Negative Negative Lab Report: [facility] - Chemistry human chorionic [...] mg/dL Encounters Code Encounter Date Provider Facility CPT-33590 Level 3 Est. Patient 15:02:19 CDT Shreya Velazquez [facility] CPT-48354 Level 3 Est. Patient 13:22:25 CDT Gabriel Hunt [facility] CPT-74490 Level 4 Est. Patient 16:02:22 CDT Ang Markham MD [facility] CPT-47081 Level 3 Est. [facility]21[facility] Level 3 Est. Patient 17:02:56 CDT Gabriel Hunt [facility] CPT-36259 Level 3 Est. Patient 14:46:22 CDT Da Romero [facility] CPT-36969 Level 4 Est. Patient 13:55:20 CDT Ang Markham MD [facility] CPT-19583 Level 4 Est. Patient 16:10:09 CDT Celestine Huerta [facility] CPT-65377 Level 3 Est. Patient 13:51:24 CDT Ang Markham MD [facility] CPT-75794 Level 3 Est. Patient 18:42:15 CDT Gabriel Hunt [facility] CPT-23537 Level 5 Est. [facility] 14:40:[facility] CPT-53629 Level 4 Est. Patient 14:36:17 CDT Ang Markham MD [facility] CPT-23188 Level 3 Est. Patient 11:13:47 [employer] Agn Markham MD [facility] CPT-18684 Level 3 Est. Patient 11:59:20 [employer] Gloria Dunbar [facility] CPT-51811 Level 3 Est. Patient 17:32:37 [employer] Gloria Dunbar [facility] CPT-68798 Level 4 Est. Patient 16:39:07 CDT Ang Markham MD [facility] CPT-56949 Level 3 Est. Patient 16:35:50 CDT Ang Markham MD [facility] CPT-92387 Level 4 Est. Patient 13:53:06 [employer] Ang Markham MD [facility] CPT-71452 Level 3 Est. Patient 08:58:08 [employer] Ang Markham MD [facility] CPT-70911 Level 3 Est. Patient 18:48:29 CDT Anthony Whitfield [facility] CPT-07588 Level 3 Est. Patient 12:16:59 CDT Gabriel Hunt DO [facility] CPT-08032 Level 3 Est. Patient 18:57:15 CDT Anthony Whitfield [facility] CPT-31406 Level 3 Est. Patient 13:59:22 [employer] Ang Markham MD [facility] CPT-02659 Level 4 Est. Patient 10:36:08 [employer] Ang Markham MD [facility] CPT-86982 Level 3 Est. Patient 16:27:02 CDT Eri Borges MD PhD [facility] CPT-25323 Level 3 Est. Patient 10:36:43 CDT Octaviano Dempsey [facility] CPT-91746 Level 4 New Patient 08:58:06 CDT Ang Markham MD [facility] Procedures Code Procedure Name Date Entry Date Standard Description CPT-14936 LS spine comp w obliques - XRAY USE ONLY 15:34:48 CDT CPT-00673 Lipid - LAB USE ONLY 15:28:39 CDT CPT-07212 CMP - LAB USE ONLY 15:28:39 CDT CPT-17196 Venipuncture Draw Fee 15:28:39 CDT CPT-21954 Abd compl w upright - XRAY USE ONLY 14:09:39 CDT 02/28 CPT-70029 Venipuncture Draw Fee 12:25:15 CDT CPT-80225 Knee 3V 16:48:40 CDT CPT-OV Office Visit 16:27:13 CDT CPT-OV Office Visit 16:21:19 CDT CPT-58400 Sono pelvis non OB uterus ovaries cervix 09:37:28 CDT
--- OUTSIDE RECORDS SUMMARY | 2018-12-22 02:46 | XMS REPORT ---
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 Name Role Phone ALMAS HAWLEY MD PP [phone] Summary purpose TRANSITION OF CARE AUTO GENERATION Chief Complaint and Reason for Visit Admit Diagnosis 1 RECTAL ANAL HEMORRHAGE Problem list No authorized problems tracked for [...] tablet Oral 2 Times Daily for herpes Current Doctor's office TriNessa (28) 0.18 mg(7)/0.215 mg(7)/0.25 mg(7)-35 mcg tablet 1 tablet oral At Bed Time for control Current Doctor's office hydroxyzine HCl 25 mg tablet 1 tablet oral PRN 3 Times A Day for itching Current Doctor's office hydrocortisone 2.5 % topical cream 2.5 % top As Needed for rectal pain Current Doctor's office Colace 100 mg capsule 1 tablet oral 2 Times Daily for stool softner Current Doctor's office Zoloft 50 mg tablet 1 tablet oral 1 Daily for anxiety Current Patient's Pharmacy Diflucan oral 1 tablet oral Every Other Day for yeast infection to take every other day x2 pills. Current Patient's Pharmacy melatonin 5 mg tablet 1-2 tablet oral PRN At Bedtime for sleep aid Current Patient's Pharmacy Zithromax Z-Benny 250 mg capsule oral See Medication Notes for ??yeast infection ??? Pt has not picked up yet, not sure dosing Current Patient recall Allergies, adverse reactions, alerts Allergen Category Ingredient Status Reaction Severity Onset Penicillins Drug Allergy Penicillins Confirmed or Verified Rash Penicillins Drug Allergy Penicillins Confirmed or Verified Swelling Immunizations No immunizations recorded for this patient visit Relevant diagnostic tests and/or laboratory data No authorized results are available for this patient visit History of procedures Procedure Code Code Type Description Date Performed Performing Physician 75689 CPT-4 EMERGENCY DEPT VISIT 10-07-2014 RETA WATTSNDT 33074 CPT-4 EMERGENCY DEPT VISIT 10-07-2014 RETA EAGLE Functional status Functional Status Finding Observation Time Abdomen Appearance flat :45 Abdomen tender :45 Bowel Sounds present :45 Urination normal :45 Quality sym/unlabored :45 Breath Sounds RUL clear :45 Breath Sounds RML clear :45 Breath Sounds RLL clear :45 Breath Sounds RITESH clear :45 Breath Sounds LLL clear :45 Oxygen no : Temp >100.4 no :45 Temp <96.8 no :45 Chills with rigors no : HR > 90bpm no :45 Respirations > 20 no :45 Systolic <90 no :45 headache stiff neck no :45 Rapid Resp no :45 Nursing Note Dismissed home per Dr. Becerra. Discharge instructions given to pt who verbalized understanding. Ambulated to exit in stable condition escorted by this RN and family. :23 Vital signs Type Value Date Respiration Rate 18breaths per minute : Pulse 110beats per minute : Oxygen Saturation 100% : BP Systolic 118mmHg :23 BP Diastolic 78mmHg :23 Temperature 98.6F :23 Height 63inches :00 Weight 133LB :00 Social history Type Value Smoking Status CURRENT EVERY DAY SMOKER Treatment Plan No treatment plan text is available for this visit. Hospital discharge instructions Dismissal Condition good Disposition on DC home DC Inst/Educ Give yes Med/Side Effects Rev yes
--- OUTSIDE RECORDS SUMMARY | 2018-12-22 02:46 | XMS REPORT ---
Author Author AJ MEDINA [facility] [employer] Address Unknown Phone Unavailable Care Team Providers Care Teacher Hearing Impaired Name Role Phone AJ MEDINA CP Unavailable Allergies, Adverse Reactions, Alerts Substance Reaction Event Type Penicillin V Potassium Info Not Available Drug Allergy Sulfa drug Info Not Available Non Drug Allergy Problems Problem Type Condition Code Onset Dates Condition Status Assessment Dental examination Z01.20 Active Medications Medication Code System Code Instructions Start Date End Date Status Dosage Zolpidem Tartrate [facility] [address]-55 10 MG Orally not defined Clindamycin HCl [facility] [address]-91 300 MG Orally not defined Paroxetine HCl [facility] [address]-17 20 MG Orally Once a day not defined Doxepin HCl [facility] [address]-00 10 MG Orally Once a day not defined Hydrocodone-Acetaminophen [facility] [address]-39 not defined Tri-Previfem [facility] [address]-70 not defined Irving [facility] [address]-82 5-325 MG Orally every 4- 6 hrs 1-2 tablets Lisinopril [facility] [address]-00 5 MG Orally Once a day 1 tablet HydrOXYzine HCl [facility] [address]-20 25 MG/ML Intramuscular not defined Terconazole [facility] [address]-07 not defined Procedures Procedure Coding System Code Date PANORAMIC FILM SEE ALSO CODE 40477 CPT-4 D0330 April 08, 2016 LTD ORAL EVALUATION - PROBLEM FOCUS CPT-4 D0140 April 08, 2016 Results No Known Results Summary Purpose [employer] Submission
--- OUTSIDE RECORDS SUMMARY | 2018-12-22 02:46 | XMS REPORT | Clinical Summary ---
Author Author Admin, ALEXANDER Organization [facility] Address Unknown Phone Unavailable Allergies, Adverse Reactions, Alerts Allergy Name Reaction Description Start Date Severity Status Provider PENICILLIN Critical Active Ang Markham MD Conditions or Problems Problem Name Problem Code Onset Date Status Entry Date Provider Comment Standard Description Annotate DEPRESSION 311 Active Ang Markham MD Depressive disorder, not elsewhere [...] Markham MD Acute sinusitis, unspecified Constipation 564.00 Active Da Romero APRN Constipation, unspecified Anal or rectal pain 569.42 Active Da Romero APRN Anal or rectal pain CANDIDAL VAGINITIS 112.1 Resolved Ang Markham MD Candidiasis of vulva and vagina Insomnia 780.52 Active Ang Markham MD Insomnia, unspecified Joint crepitus, knee 719.66 Active Hilda Damon Other symptoms referable to lower leg joint Knee pain, bilateral 719.46 Active Hilda Damon Pain in joint involving lower leg Cystitis, acute 595.0 Active Gabriel Hunt DO Acute cystitis AMENORRHEA ICD-626.0 Inactive Eri Borges MD PhD ABDOMINAL PAIN RIGHT LOWER QUADRANT ICD-789.03 Inactive Eri Borges MD PhD LOM ICD-382.9 Inactive Eri Borges MD PhD SINUSITIS, ACUTE ICD-461.9 Inactive Ang Markham MD CANDIDAL VAGINITIS ICD-112.1 Inactive Ang Markham MD Medication List Medication Instructions Start Date Stop Date Generic Name NDC Status Provider Patient Instruction CEFTIN 500 MG TAB 1 tablet by mouth twice daily for 7 days CEFUROXIME AXETIL 24575914526 Active Gabrile Hunt DO Active CYCLOBENZAPRINE HCL 5 MG TABS 1/2 to 1 tab PO tid PRN CYCLOBENZAPRINE HCL 26463344748 Active Anthony CAROBNE Active TRINESSA (28) 0.18/0.215/0.25 MG-35 MCG TABS 1 po qd as directed NORGESTIM-ETH ESTRAD TRIPHASIC 03420609833 No Longer Active Anthony CARBONE Active [facility] MELATONIN 5 MG TABS 1-2 po qHS PRN Insomnia MELATONIN 90683549221 No Longer Active Anthony CARBONE Active NOVOLOG FLEXPEN 100 UNIT/ML SOPN Take 18 units TID with meals INSULIN ASPART 23075235011 Active Rena Barnesum CONTRACTS SPECIALIST Active ACYCLOVIR 400 MG TABS ACYCLOVIR 92468605173 No Longer Active Ang Markham MD Active LEVEMIR FLEXPEN 100 UNIT/ML SOLN 60 units SC at bedtime INSULIN DETEMIR 49489149662 Active Ang Markham MD Active EMBRACE BLOOD GLUCOSE TEST STRP Test blood sugars 4 times daily and PRN 08/05 GLUCOSE BLOOD 82551074200 Active Ang Markham MD Active ZOLOFT 50 MG TAB 1 tablet by mouth daily SERTRALINE HCL 57904390713 Active Ang Markham MD Active HYDROXYZINE HCL 25 MG TABS 1 tab PO tid PRN itching HYDROXYZINE HCL 05417913456 No Longer Active Ang Markham MD Active DIFLUCAN 150 MG TAB 1 qODay x 2 doses FLUCONAZOLE 08144407695 No Longer Active Jillina Franayal ENDBANDER Active COLACE 100 MG CAP 1 tab PO BID DOCUSATE SODIUM 36389312124 Active Jillina Frazell ENDBANDER Active ANUSOL-HC 2.5 % CREAM apply as needed HYDROCORTISONE (RECTAL) 73986525164 Active Jillina Frazell ENDBANDER Active ACYCLOVIR 400 MG TABS 1 pill twice daily ACYCLOVIR 31535398232 No Longer Active Jillina Wendyl ENDBANDER Active AZITHROMYCIN 250 MG TABS 2 po qd x 1 day, then 1 po qd x 4 days AZITHROMYCIN 00711408269 No Longer Active Eri Borges MD PhD Active AZITHROMYCIN 250 MG TABS take 2 po day 1 then take1 po days 2-5 AZITHROMYCIN 00193223318 No Longer Active Octaviano CARBONE Active ACYCLOVIR 400 MG TABS 1 po qd ACYCLOVIR 03867463955 No Longer Active Ang Markham MD Active PROZAC 40 MG CAPS 1 cap by mouth at bedtime FLUOXETINE HCL 30041367153 No Longer Active Ang Markham MD Active METFORMIN HCL 1000 MG TABS 1 tablet by mouth twice daily METFORMIN HCL 61407182411 Active Ang Markham MD Active HYDROXYZINE HCL 25 MG TABS 1 tab PO tid PRN itching HYDROXYZINE HCL 25 MG TABS 100951 HYDROXYZINE HCL Inactive [facility] MELAT[facility]IN 5 MG TABS 1-2 po qHS PRN Insomnia [facility] MELATONIN 5 MG TABS 047783 MELATONIN Inactive TRINESSA (28) 0.18/0.215/0.25 MG-35 MCG TABS 1 po qd as directed TRINESSA (28) 0.18/0.215/0.25 MG-35 MCG TABS 287729 NORGESTIM-ETH ESTRAD TRIPHASIC Inactive ACYCLOVIR 400 MG TABS 1 po qd ACYCLOVIR 400 MG TABS 19720928 ACYCLOVIR Inactive AZITHROMYCIN 250 MG TABS take 2 po day 1 then take1 po days 2-5 AZITHROMYCIN 250 MG TABS 2725012 AZITHROMYCIN Inactive AZITHROMYCIN 250 MG TABS 2 po qd x 1 day, then 1 po qd x 4 days AZITHROMYCIN 250 MG TABS 0622708 AZITHROMYCIN Inactive ACYCLOVIR 400 MG TABS 1 pill twice daily ACYCLOVIR 400 MG TABS 19720928 ACYCLOVIR Inactive DIFLUCAN 150 MG TAB 1 qODay x 2 doses DIFLUCAN 150 MG TAB 428164 FLUCONAZOLE Inactive ACYCLOVIR 400 MG TABS ACYCLOVIR 400 MG TABS 19720928 ACYCLOVIR Inactive Advance Directives Directive Description Start Date PERMISSION TO SHARE Vital Signs Date Name Value Unit Range Description blood pressure, diastolic 79 mm[Hg] BP [place] blood pressure, systolic 110 mm[Hg] BP sys pulse rate E&M 105 /min Heart rate temperature E&M 9.9 [degF] Body temperature weight E&M 132.8 [lb_av] Weight Measured blood pressure, diastolic 83 mm[Hg] BP [place] blood pressure, systolic 125 mm[Hg] BP sys height E&M 63 [in_us] Bdy height pulse rate E&M 108 /min Heart rate temperature E&M 97.9 [degF] Body temperature weight E&M 141.25 [lb_av] Weight Measured blood pressure, diastolic 77 mm[Hg] BP [place] blood pressure, systolic 113 mm[Hg] BP sys height E&M 63 [in_us] Bdy height pulse rate E&M 102 /min Heart rate temperature E&M 98.3 [degF] Body temperature weight E&M 141.31 [lb_av] Weight Measured blood pressure, diastolic 73 mm[Hg] BP [place] blood pressure, systolic 111 mm[Hg] BP sys height E&M 63 [in_us] Bdy height pulse rate E&M 116 /min Heart rate temperature E&M 99.3 [degF] Body temperature weight E&M 140 [lb_av] Weight Measured Diagnostic Results Date Name Value Unit Range Description Chart Maintenance: Outside labs entered on flowsheet - Chemistry hemoglobin A1C, blood, as % of total hemoglobin 11.8 % Lab Report: UADIP W/MICRO, AUTO - Chemistry protein, total urine random Negative [...] <=1.005 1.000-1.030 pH, urine, semiquantitative 6.5 5.0-8.5 Office Visit: Med check 302 - Chemistry cholesterol, target level 200 mg/dL triglyceride, target level 200 mg/dL HDL cholesterol, serum, target level 35 mg/dL LDL target level 100 mg/dL Encounters Code Encounter Date Provider Facility CPT-03923 Level 3 Est. Patient 12:16:59 CDT Gabriel Hunt DO [facility] CPT-52212 Level 3 Est. Patient 18:57:15 CDT Anthony Whitfield [facility] CPT-27475 Level 3 Est. 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 Patient 10:36:08 ASSISTANT COUNTY ATTORNEY Ang Markham MD [facility] CPT-51331 Level 3 Est. Patient 16:27:02 CDT Eri Borges MD PhD [facility] CPT-14852 Level 3 Est. Patient 10:36:43 CDT Octaviano Dempsey [facility] CPT-69803 Level 4 New Patient 08:58:06 CDT Ang Markham MD [facility] Procedures Code Procedure Name Date Entry Date Standard Description CPT-88226 Knee 3V 16:48:40 CDT CPT-OV Office Visit 16:27:13 CDT CPT-OV Office Visit 16:21:19 CDT CPT-60353 Sono pelvis non OB uterus ovaries cervix 09:37:28 CDT
--- OUTSIDE RECORDS SUMMARY | 2018-12-22 02:46 | XMS REPORT | Clinical Summary ---
Author Author Admin, ALEXANDER Organization [facility] Address Unknown Phone Unavailable Allergies, [...] 595.0 Active Gabriel Hunt DO Acute cystitis UTI 599.0 Active Elza WILSON Urinary tract infection, site not specified Insomnia 780.52 Active Anthony CARBONE Insomnia, unspecified Diabetes mellitus 250.00 Active Anthony CARBONE Diabetes mellitus without mention of complication, type II or unspecified type, not stated as uncontrolled Vaginal discharge 623.5 Active Jillina Nick GUTIERREZN Leukorrhea, not specified as infective AMENORRHEA ICD-626.0 Inactive Eri Borges MD PhD ABDOMINAL PAIN RIGHT LOWER QUADRANT ICD-789.03 Inactive Eri Borges MD PhD LOM ICD-382.9 Inactive Eri Borges MD PhD SINUSITIS, ACUTE ICD-461.9 Inactive Ang Markham MD CANDIDAL VAGINITIS ICD-112.1 Inactive Ang Markham MD Medication List Medication Instructions Start Date Stop Date Generic Name NDC Status Provider Patient Instruction DIFLUCAN 150 MG TAB 1 qODay x 2 doses FLUCONAZOLE 86357689363 No Longer Active Jillina Frazell SELF PAY SPECIALIST Active IBUPROFEN 800 MG TABS 1 tab every 8 hours as needed for pain IBUPROFEN 38162099894 Active Jillina Frazell SELF PAY SPECIALIST Active LEVEMIR FLEXPEN 100 UNIT/ML SOLN 60 units SC at bedtime INSULIN DETEMIR 21260695053 Active Anthony CARBONE Active CEFTIN 500 MG TAB 1 tablet by mouth twice daily for 7 days 07/24 CEFUROXIME AXETIL 20532413572 No Longer Active Anthony CARBONE Active NITROFURANTOIN MACROCRYSTAL 100 MG CAPS 1 capsule PO bid x 7 days NITROFURANTOIN MACROCRYSTAL 88593164072 Active Anthony CARBONE Active ZOLPIDEM TARTRATE 10 MG TABS 1 tab PO at hs ZOLPIDEM TARTRATE 83288194032 Active Anthony CARBONE Active ZOLOFT 50 MG TAB 1 tablet by mouth daily SERTRALINE HCL 86742204782 No Longer Active Anthony CARBONE Active ANUSOL-HC 2.5 % CREAM apply as needed HYDROCORTISONE (RECTAL) 89096209384 No Longer Active Anthony CARBONE Active COLACE 100 MG CAP 1 tab PO BID DOCUSATE SODIUM 30238387672 No Longer Active Anthony CARBONE Active CYCLOBENZAPRINE HCL 5 MG TABS 1/2 to 1 tab PO tid PRN CYCLOBENZAPRINE HCL 52576514926 Active Anthony CARBONE Active TRINESSA (28) 0.18/0.215/0.25 MG-35 MCG TABS 1 po qd as directed NORGESTIM-ETH ESTRAD TRIPHASIC 34187756685 No Longer Active Anthony CARBONE Active [facility] MELAT[facility]IN 5 MG TABS 1-2 po qHS PRN Insomnia MELATONIN 64932276301 No Longer Active Anthony CARBONE Active NOVOLOG FLEXPEN 100 UNIT/ML SOPN Take 18 units TID with meals INSULIN ASPART 03507097193 Active Anthony CARBONE Active ACYCLOVIR 400 MG TABS ACYCLOVIR 09870807788 No Longer Active Ang Markham MD Active EMBRACE BLOOD GLUCOSE TEST STRP Test blood sugars 4 times daily and PRN 08/05 GLUCOSE BLOOD 58788499290 Active Ang Markham MD Active HYDROXYZINE HCL 25 MG TABS 1 tab PO tid PRN itching HYDROXYZINE HCL 44829662830 No Longer Active Ang Markham MD Active DIFLUCAN 150 MG TAB 1 qODay x 2 doses FLUCONAZOLE 91384625607 No Longer Active Da Romero APRN Active ACYCLOVIR 400 MG TABS 1 pill twice daily ACYCLOVIR 72293447279 No Longer Active Da Romero APRN Active AZITHROMYCIN 250 MG TABS 2 po qd x 1 day, then 1 po qd x 4 days AZITHROMYCIN 86036183931 No Longer Active Eri oBrges MD PhD Active AZITHROMYCIN 250 MG TABS take 2 po day 1 then take1 po days 2-5 AZITHROMYCIN 95304450183 No Longer Active Octaviano CARBONE Active ACYCLOVIR 400 MG TABS 1 po qd ACYCLOVIR 58397884370 No Longer Active Ang Markham MD Active PROZAC 40 MG CAPS 1 cap by mouth at bedtime FLUOXETINE HCL 68478419671 No Longer Active Ang Markham MD Active METFORMIN HCL 1000 MG TABS 1 tablet by mouth twice daily METFORMIN HCL 87819052826 Active Ang Markham MD Active HYDROXYZINE HCL 25 MG TABS 1 tab PO tid PRN itching HYDROXYZINE HCL 25 MG TABS 157357 HYDROXYZINE HCL Inactive [facility] MEL[facility]IN 5 MG TABS 1-2 po qHS PRN Insomnia [facility] MELATONIN 5 MG TABS 151577 MELATONIN Inactive TRINESSA (28) 0.18/0.215/0.25 MG-35 MCG TABS 1 po qd as directed TRINESSA (28) 0.18/0.215/0.25 MG-35 MCG TABS 923018 NORGESTIM-ETH ESTRAD TRIPHASIC Inactive COLACE 100 MG CAP 1 tab PO BID COLACE 100 MG CAP 0624862 DOCUSATE SODIUM Inactive ANUSOL-HC 2.5 % CREAM apply as needed ANUSOL-HC 2.5 % CREAM 300133 HYDROCORTISONE (RECTAL) Inactive ZOLOFT 50 MG TAB 1 tablet by mouth daily ZOLOFT 50 MG TAB 290656 SERTRALINE HCL Inactive CEFTIN 500 MG TAB 1 tablet by mouth twice daily for 7 days 07/24 CEFTIN 500 MG TAB 935496 CEFUROXIME AXETIL Inactive ACYCLOVIR 400 MG TABS 1 po qd ACYCLOVIR 400 MG TABS 19720928 ACYCLOVIR Inactive AZITHROMYCIN 250 MG TABS take 2 po day 1 then take1 po days 2-5 AZITHROMYCIN 250 MG TABS 7230555 AZITHROMYCIN Inactive AZITHROMYCIN 250 MG TABS 2 po qd x 1 day, then 1 po qd x 4 days AZITHROMYCIN 250 MG TABS 0710064 AZITHROMYCIN Inactive ACYCLOVIR 400 MG TABS 1 pill twice daily ACYCLOVIR 400 MG TABS 19720928 ACYCLOVIR Inactive DIFLUCAN 150 MG TAB 1 qODay x 2 doses DIFLUCAN 150 MG TAB 460870 FLUCONAZOLE Inactive ACYCLOVIR 400 MG TABS ACYCLOVIR 400 MG TABS 19720928 ACYCLOVIR Inactive DIFLUCAN 150 MG TAB 1 qODay x 2 doses DIFLUCAN 150 MG TAB 887287 FLUCONAZOLE Inactive Advance Directives Directive Description Start Date PERMISSION TO SHARE Vital Signs Date Name Value Unit Range Description blood pressure, diastolic 79 mm[Hg] BP [place] blood pressure, systolic 110 mm[Hg] BP sys pulse rate E&M 105 /min Heart rate temperature E&M 9.9 [degF] Body temperature weight E&M 132.8 [lb_av] Weight Measured blood pressure, diastolic 82 mm[Hg] BP [place] blood pressure, systolic 121 mm[Hg] BP sys pulse rate E&M 106 /min Heart rate temperature E&M 98.6 [degF] Body temperature weight E&M 131 [lb_av] Weight Measured Diagnostic Results Date Name Value Unit Range Description Lab Report: CBC W/DIFF, Comp. Metabolic Panel, HGBA1C - Chemistry sodium, serum 131 mmol/L 349-138 1308/10/27 potassium, serum 4.8 mmol/L 3.5-5.2 chloride, serum [...] Lab Report: CBC W/DIFF, Comp. Metabolic Panel, [facility] - Hematology leukocyte count, blood 9.0 10^3/MM^3 [...] count 267 10^3/MM^3 10*3/mm3 142-424 Lab Report: UADIP W/MICRO, AUTO - Chemistry protein, total urine random Negative mg/dL Negative RBC, urine, dipstick Negative Negative protein, total [...] <=1.005 1.000-1.030 pH, urine, semiquantitative 5.0 5.0-8.5 Encounters Code Encounter Date Provider Facility CPT-40467 Level 3 Est. Patient 18:48:29 CDT Anthony CARBONE [facility] CPT-15754 Level 3 Est. Patient 12:16:59 CDT Gabriel Hunt DO [facility] CPT-32374 Level 3 Est. Patient 18:57:15 CDT Anthony Whitfield [facility] CPT-56907 Level 3 Est. Patient 13:59:22 MEDICAL RECORDS SECRETARY Ang Markham MD [facility] CPT-50154 Level 4 Est. Patient 10:36:08 MEDICAL RECORDS SECRETARY Ang Markham MD [facility] CPT-91559 Level 3 Est. Patient 16:27:02 CDT Eri Borges MD PhD [facility] CPT-60954 Level 3 Est. Patient 10:36:43 CDT Kellyfaviola Roselyn [facility] CPT-58087 Level 4 New Patient 08:58:06 CDT Ang Markham MD [facility] Procedures Code Procedure Name Date Entry Date Standard Description CPT-76385 Venipuncture Draw Fee 12:25:15 CDT CPT-03468 Knee 3V 16:48:40 CDT CPT-OV Office Visit 16:27:13 CDT CPT-OV Office Visit 16:21:19 CDT CPT-81156 Sono pelvis non OB uterus ovaries cervix 09:37:28 CDT
--- OUTSIDE RECORDS SUMMARY | 2018-12-22 02:47 | XMS REPORT | Clinical Summary ---
Author Author Admin, ALEXANDER Organization [facility] Address Unknown Phone Unavailable Allergies, Adverse [...] DO Acute cystitis UTI 599.0 Active Elza Salas RMA Urinary tract infection, site not specified AMENORRHEA ICD-626.0 Inactive Eri Borges MD PhD ABDOMINAL PAIN RIGHT LOWER QUADRANT ICD-789.03 Inactive Eri Borges MD PhD LOM ICD-382.9 Inactive Eri Borges MD PhD SINUSITIS, ACUTE ICD-461.9 Inactive Ang Markham MD CANDIDAL VAGINITIS ICD-112.1 Inactive Ang Markham MD Medication List Medication Instructions Start Date Stop Date Generic Name NDC Status Provider Patient Instruction LEVEMIR FLEXPEN 100 UNIT/ML SOLN 60 units SC at bedtime INSULIN DETEMIR 45899735374 Active Anthony CARBONE Active CEFTIN 500 MG TAB 1 tablet by mouth twice daily for 7 days 07/24 CEFUROXIME AXETIL 85985752962 No Longer Active Anthony CARBONE Active NITROFURANTOIN MACROCRYSTAL 100 MG CAPS 1 capsule PO bid x 7 days NITROFURANTOIN MACROCRYSTAL 44250035330 Active Anthony CARBONE Active ZOLPIDEM TARTRATE 10 MG TABS 1 tab PO at hs ZOLPIDEM TARTRATE 44404018472 Active Anthony CARBONE Active ZOLOFT 50 MG TAB 1 tablet by mouth daily SERTRALINE HCL 98448430152 No Longer Active Anthony CARBONE Active ANUSOL-HC 2.5 % CREAM apply as needed HYDROCORTISONE (RECTAL) 87730151717 No Longer Active Anthony CARBONE Active COLACE 100 MG CAP 1 tab PO BID DOCUSATE SODIUM 40460407614 No Longer Active Anthony CARBONE Active CYCLOBENZAPRINE HCL 5 MG TABS 1/2 to 1 tab PO tid PRN CYCLOBENZAPRINE HCL 46353299968 Active Anthony CARBONE Active TRINESSA (28) 0.18/0.215/0.25 MG-35 MCG TABS 1 po qd as directed NORGESTIM-ETH ESTRAD TRIPHASIC 82175592592 No Longer Active Anthony CARBONE Active [facility] MELAT[facility]IN 5 MG TABS 1-2 po qHS PRN Insomnia MELATONIN 71696013839 No Longer Active Anthony CARBONE Active NOVOLOG FLEXPEN 100 UNIT/ML SOPN Take 18 units TID with meals INSULIN ASPART 49296859610 Active Anthony CARBONE Active ACYCLOVIR 400 MG TABS ACYCLOVIR 84450615040 No Longer Active Ang Markham MD Active EMBRACE BLOOD GLUCOSE TEST STRP Test blood sugars 4 times daily and PRN 08/05 GLUCOSE BLOOD 74388224212 Active Ang Markham MD Active HYDROXYZINE HCL 25 MG TABS 1 tab PO tid PRN itching HYDROXYZINE HCL 55732533921 No Longer Active Ang Markham MD Active DIFLUCAN 150 MG TAB 1 qODay x 2 doses FLUCONAZOLE 03274248010 No Longer Active Da Romero APRN Active ACYCLOVIR 400 MG TABS 1 pill twice daily ACYCLOVIR 27672922230 No Longer Active Da Romero APRN Active AZITHROMYCIN 250 MG TABS 2 po qd x 1 day, then 1 po qd x 4 days AZITHROMYCIN 57383310257 No Longer Active Eri Borges MD PhD Active AZITHROMYCIN 250 MG TABS take 2 po day 1 then take1 po days 2-5 AZITHROMYCIN 74192737928 No Longer Active Octaviano CARBONE Active ACYCLOVIR 400 MG TABS 1 po qd ACYCLOVIR 13334088293 No Longer Active Ang Markham MD Active PROZAC 40 MG CAPS 1 cap by mouth at bedtime FLUOXETINE HCL 66383443935 No Longer Active Ang Markham MD Active METFORMIN HCL 1000 MG TABS 1 tablet by mouth twice daily METFORMIN HCL 21916537882 Active Ang Markham MD Active HYDROXYZINE HCL 25 MG TABS 1 tab PO tid PRN itching HYDROXYZINE HCL 25 MG TABS 444194 HYDROXYZINE HCL Inactive [facility] MELATONIN 5 MG TABS 1-2 po qHS PRN Insomnia [facility] MELATONIN 5 MG TABS 429726 MELATONIN Inactive TRINESSA (28) 0.18/0.215/0.25 MG-35 MCG TABS 1 po qd as directed TRINESSA (28) 0.18/0.215/0.25 MG-35 MCG TABS 307327 NORGESTIM-ETH ESTRAD TRIPHASIC Inactive COLACE 100 MG CAP 1 tab PO BID COLACE 100 MG CAP 6158387 DOCUSATE SODIUM Inactive ANUSOL-HC 2.5 % CREAM apply as needed ANUSOL-HC 2.5 % CREAM 170906 HYDROCORTISONE (RECTAL) Inactive ZOLOFT 50 MG TAB 1 tablet by mouth daily ZOLOFT 50 MG TAB 029542 SERTRALINE HCL Inactive CEFTIN 500 MG TAB 1 tablet by mouth twice daily for 7 days 07/24 CEFTIN 500 MG TAB 545671 CEFUROXIME AXETIL Inactive ACYCLOVIR 400 MG TABS 1 po qd ACYCLOVIR 400 MG TABS 744263 ACYCLOVIR Inactive AZITHROMYCIN 250 MG TABS take 2 po day 1 then take1 po days 2-5 AZITHROMYCIN 250 MG TABS 8852247 AZITHROMYCIN Inactive AZITHROMYCIN 250 MG TABS 2 po qd x 1 day, then 1 po qd x 4 days AZITHROMYCIN 250 MG TABS 2329588 AZITHROMYCIN Inactive ACYCLOVIR 400 MG TABS 1 pill twice daily ACYCLOVIR 400 MG TABS 19720928 ACYCLOVIR Inactive DIFLUCAN 150 MG TAB 1 qODay x 2 doses DIFLUCAN 150 MG TAB 361675 FLUCONAZOLE Inactive ACYCLOVIR 400 MG TABS ACYCLOVIR [...] of total hemoglobin 11.8 % Lab Report: CBC W/DIFF, Comp. Metabolic Panel, HGBA1C - Chemistry sodium, serum 131 mmol/L 676-833 3636/10/27 potassium, serum 4.8 mmol/L 3.5-5.2 chloride, serum [...] mg/dL Encounters Code Encounter Date Provider Facility CPT-80166 Level 3 Est. Patient 12:16:59 CDT Gabriel Hunt DO [facility] CPT-92915 Level 3 Est. Patient 18:57:15 CDT Anthony CARBONE [facility] CPT-06098 Level 3 Est. 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 Patient 10:36:08 MATERIALS RESEARCH ENGINEER Ang Markham MD [facility] CPT-79557 Level 3 Est. Patient 16:27:02 CDT Eri Borges MD PhD [facility] CPT-92172 Level 3 Est. Patient 10:36:43 CDT Kellyfaviola Roselyn CARBONE [facility] CPT-82866 Level 4 New Patient 08:58:06 CDT Ang Markham MD [facility] Procedures Code Procedure Name Date Entry Date Standard Description CPT-98749 Venipuncture Draw Fee 12:25:15 CDT CPT-46753 Knee 3V 16:48:40 CDT CPT-OV Office Visit 16:27:13 CDT CPT-OV Office Visit 16:21:19 CDT CPT-47236 Sono pelvis non OB uterus ovaries cervix 09:37:28 CDT
--- OUTSIDE RECORDS SUMMARY | 2018-12-22 02:47 | XMS REPORT | Clinical Summary ---
Author Author Admin, ALEXANDER Organization [facility] Address Unknown Phone Unavailable Allergies, Adverse Reactions, [...] unspecified type, not stated as uncontrolled AMENORRHEA ICD-626.0 Inactive Eri Borges MD PhD [...] 60 units SC at bedtime INSULIN DETEMIR 93551271095 Active Anthony CARBONE Active CEFTIN 500 MG TAB 1 tablet by mouth twice daily for 7 days 07/24 CEFUROXIME AXETIL 89194585639 No Longer Active Anthony CARBONE Active NITROFURANTOIN MACROCRYSTAL 100 MG CAPS 1 capsule PO bid x 7 days NITROFURANTOIN MACROCRYSTAL 82876295036 Active Anthony CARBONE Active ZOLPIDEM TARTRATE 10 MG TABS 1 tab PO at hs ZOLPIDEM TARTRATE 62934969429 Active Anthony CARBONE Active ZOLOFT 50 MG TAB 1 tablet by mouth daily SERTRALINE HCL 90375373603 No Longer Active Anthony CARBONE Active ANUSOL-HC 2.5 % CREAM apply as needed HYDROCORTISONE (RECTAL) 94873955784 No Longer Active Anthony CARBONE Active COLACE 100 MG CAP 1 tab PO BID DOCUSATE SODIUM 84359393927 No Longer Active Anthony CARBONE Active CYCLOBENZAPRINE HCL 5 MG TABS 1/2 to 1 tab PO tid PRN CYCLOBENZAPRINE HCL 42916901516 Active Anthony CARBONE Active TRINESSA (28) 0.18/0.215/0.25 MG-35 MCG TABS 1 po qd as directed NORGESTIM-ETH ESTRAD TRIPHASIC 90972726612 No Longer Active Anthony CARBONE Active [facility] MELATONIN 5 MG TABS 1-2 po qHS PRN Insomnia MELATONIN 25878980217 No Longer Active Anthony CARBONE Active NOVOLOG FLEXPEN 100 UNIT/ML SOPN Take 18 units TID with meals INSULIN ASPART 32456970537 Active Anthony CARBONE Active ACYCLOVIR 400 MG TABS ACYCLOVIR 06804908419 No Longer Active Ang Markham MD Active EMBRACE BLOOD GLUCOSE TEST STRP Test blood sugars 4 times daily and PRN 08/05 GLUCOSE BLOOD 39423495900 Active Ang Markham MD Active HYDROXYZINE HCL 25 MG TABS 1 tab PO tid PRN itching HYDROXYZINE HCL 79918128495 No Longer Active Ang Markham MD Active DIFLUCAN 150 MG TAB 1 qODay x 2 doses FLUCONAZOLE 87514060379 No Longer Active Da Romero APRN Active ACYCLOVIR 400 MG TABS 1 pill twice daily ACYCLOVIR 25142044608 No Longer Active Jillpiedad Romero APRN Active AZITHROMYCIN 250 MG TABS 2 po qd x 1 day, then 1 po qd x 4 days AZITHROMYCIN 36179863499 No Longer Active Eri Borges MD PhD Active AZITHROMYCIN 250 MG TABS take 2 po day 1 then take1 po days 2-5 AZITHROMYCIN 71024329612 No Longer Active Octaviano CARBONE Active ACYCLOVIR 400 MG TABS 1 po qd ACYCLOVIR 38832249121 No Longer Active Ang Markham MD Active PROZAC 40 MG CAPS 1 cap by mouth at bedtime FLUOXETINE HCL 32734765558 No Longer Active Ang Markham MD Active METFORMIN HCL 1000 MG TABS 1 tablet by mouth twice daily METFORMIN HCL 02391220655 Active Ang Markham MD Active HYDROXYZINE HCL 25 MG TABS 1 tab PO tid PRN itching HYDROXYZINE HCL 25 MG TABS 086583 HYDROXYZINE HCL Inactive [facility] MELATONIN 5 MG TABS 1-2 po qHS PRN Insomnia [facility] MELATONIN 5 MG TABS 460139 MELATONIN Inactive TRINESSA (28) 0.18/0.215/0.25 MG-35 MCG TABS 1 po qd as directed TRINESSA (28) 0.18/0.215/0.25 MG-35 MCG TABS 584078 NORGESTIM-ETH ESTRAD TRIPHASIC Inactive COLACE 100 MG CAP 1 tab PO BID COLACE 100 MG CAP 2136777 DOCUSATE SODIUM Inactive ANUSOL-HC 2.5 % CREAM apply as needed ANUSOL-HC 2.5 % CREAM 681806 HYDROCORTISONE (RECTAL) Inactive ZOLOFT 50 MG TAB 1 tablet by mouth daily ZOLOFT 50 MG TAB 695410 SERTRALINE HCL Inactive CEFTIN 500 MG TAB 1 tablet by mouth twice daily for 7 days 07/24 CEFTIN 500 MG TAB 641461 CEFUROXIME AXETIL Inactive ACYCLOVIR 400 MG TABS 1 po qd ACYCLOVIR 400 MG TABS 268628 ACYCLOVIR Inactive AZITHROMYCIN 250 MG TABS take 2 po day 1 then take1 po days 2-5 AZITHROMYCIN 250 MG TABS 1365476 AZITHROMYCIN Inactive AZITHROMYCIN 250 MG TABS 2 po qd x 1 day, then 1 po qd x 4 days AZITHROMYCIN 250 MG TABS 7620163 AZITHROMYCIN Inactive ACYCLOVIR 400 MG TABS 1 pill twice daily ACYCLOVIR 400 MG TABS 19720928 ACYCLOVIR Inactive DIFLUCAN 150 MG TAB 1 qODay x 2 doses DIFLUCAN 150 MG TAB 242335 FLUCONAZOLE Inactive ACYCLOVIR 400 MG TABS ACYCLOVIR [...] temperature weight E&M 131 [lb_av] Weight Measured blood pressure, diastolic 83 [...] temperature weight E&M 141.31 [lb_av] Weight Measured Diagnostic Results Date Name Value Unit Range Description Chart Maintenance: Outside labs entered on flowsheet - Chemistry hemoglobin A1C, blood, as % of total hemoglobin 11.8 % Lab Report: CBC W/DIFF, Comp. Metabolic Panel, HGBA1C - Chemistry sodium, serum 131 mmol/L 695-009 9937/10/27 potassium, serum 4.8 mmol/L 3.5-5.2 chloride, serum [...] mg/dL Encounters Code Encounter Date Provider Facility CPT-39199 Level 3 Est. Patient 18:48:29 CDT Anthony CARBONE [facility] CPT-68429 Level 3 Est. Patient 12:16:59 CDT Gabriel Hunt DO [facility] CPT-46161 Level 3 Est. Patient 18:57:15 CDT Anthony [facility] CPT-10560 Level 3 Est. Patient 13:59:22 ENVIRONMENTAL AIDE Ang Markham MD [facility] CPT-92630 Level 4 Est. Patient 10:36:08 ENVIRONMENTAL AIDE Ang Markham MD [facility] CPT-95821 Level 3 Est. Patient 16:27:02 CDT Eri Borges MD PhD [facility] CPT-14379 Level 3 Est. Patient 10:36:43 CDT Octaviano Dem[facility] CPT-10581 Level 4 New Patient 08:58:06 CDT Ang Markham MD [facility] Procedures Code Procedure Name Date Entry Date Standard Description CPT-83159 Venipuncture Draw Fee 12:25:15 CDT CPT-91341 Knee 3V 16:48:40 CDT CPT-OV Office Visit 16:27:13 CDT CPT-OV Office Visit 16:21:19 CDT CPT-58322 Sono pelvis non OB uterus ovaries cervix 09:37:28 CDT
--- OUTSIDE RECORDS SUMMARY | 2018-12-22 02:48 | XMS REPORT | Clinical Summary ---
Author Author Admin, ALEXANDER Organization [facility] Address Unknown [...] Damon Pain in joint involving lower leg AMENORRHEA ICD-626.0 Inactive Eri Borges MD PhD ABDOMINAL PAIN RIGHT LOWER QUADRANT ICD-789.03 Inactive Eri Borges MD PhD LOM ICD-382.9 Inactive Eri Borges MD PhD SINUSITIS, ACUTE ICD-461.9 Inactive Ang Markham MD CANDIDAL VAGINITIS ICD-112.1 Inactive Ang Markham MD Medication List Medication Instructions Start Date Stop Date Generic Name NDC Status Provider Patient Instruction CYCLOBENZAPRINE HCL 5 MG TABS 1/2 to 1 tab PO tid PRN CYCLOBENZAPRINE HCL 86489672231 Active Anthony CARBONE Active TRINESSA (28) 0.18/0.215/0.25 MG-35 MCG TABS 1 po qd as directed NORGESTIM-ETH ESTRAD TRIPHASIC 43142450601 No Longer Active Anthony CARBONE Active [facility] MELATONIN 5 MG TABS 1-2 po qHS PRN Insomnia MELATONIN 63150920978 No Longer Active Anthony CARBONE Active NOVOLOG FLEXPEN 100 UNIT/ML SOPN Take 18 units TID with meals INSULIN ASPART 99400279929 Active Rena Barnesum NEEDLE LOOM WEAVER Active ACYCLOVIR 400 MG TABS ACYCLOVIR 38781452812 No Longer Active Ang Markham MD Active LEVEMIR FLEXPEN 100 UNIT/ML SOLN 60 units SC at bedtime INSULIN DETEMIR 15902474113 Active Ang Markham MD Active EMBRACE BLOOD GLUCOSE TEST STRP Test blood sugars 4 times daily and PRN 08/05 GLUCOSE BLOOD 09943962102 Active Ang Markham MD Active ZOLOFT 50 MG TAB 1 tablet by mouth daily SERTRALINE HCL 76230732980 Active Ang Markham MD Active HYDROXYZINE HCL 25 MG TABS 1 tab PO tid PRN itching HYDROXYZINE HCL 59116287968 No Longer Active Ang Markham MD Active DIFLUCAN 150 MG TAB 1 qODay x 2 doses FLUCONAZOLE 15374043715 No Longer Active Josephllina Nick PERSONAL CHEF Active COLACE 100 MG CAP 1 tab PO BID DOCUSATE SODIUM 45531904633 Active Jillina Franayal PERSONAL CHEF Active ANUSOL-HC 2.5 % CREAM apply as needed HYDROCORTISONE (RECTAL) 94336313251 Active Jillina Frazell PERSONAL CHEF Active ACYCLOVIR 400 MG TABS 1 pill twice daily ACYCLOVIR 86222704319 No Longer Active Josephllina Wendyl PERSONAL CHEF Active AZITHROMYCIN 250 MG TABS 2 po qd x 1 day, then 1 po qd x 4 days AZITHROMYCIN 12484970443 No Longer Active Eri Borges MD PhD Active AZITHROMYCIN 250 MG TABS take 2 po day 1 then take1 po days 2-5 AZITHROMYCIN 58442792581 No Longer Active Octaviano CARBONE Active ACYCLOVIR 400 MG TABS 1 po qd ACYCLOVIR 03432857682 No Longer Active Ang Markham MD Active PROZAC 40 MG CAPS 1 cap by mouth at bedtime FLUOXETINE HCL 90403479346 No Longer Active Ang Markham MD Active METFORMIN HCL 1000 MG TABS 1 tablet by mouth twice daily METFORMIN HCL 13327129819 Active Ang Markham MD Active HYDROXYZINE HCL 25 MG TABS 1 tab PO tid PRN itching HYDROXYZINE HCL 25 MG TABS 877889 HYDROXYZINE HCL Inactive [facility] MEL[facility]IN 5 MG TABS 1-2 po qHS PRN Insomnia [facility] MELATONIN 5 MG TABS 197344 MELATONIN Inactive TRINESSA (28) 0.18/0.215/0.25 MG-35 MCG TABS 1 po qd as directed TRINESSA (28) 0.18/0.215/0.25 MG-35 MCG TABS 778088 NORGESTIM-ETH ESTRAD TRIPHASIC Inactive ACYCLOVIR 400 MG TABS 1 po qd ACYCLOVIR 400 MG TABS 19720928 ACYCLOVIR Inactive AZITHROMYCIN 250 MG TABS take 2 po day 1 then take1 po days 2-5 AZITHROMYCIN 250 MG TABS 4846637 AZITHROMYCIN Inactive AZITHROMYCIN 250 MG TABS 2 po qd x 1 day, then 1 po qd x 4 days AZITHROMYCIN 250 MG TABS 0417252 AZITHROMYCIN Inactive ACYCLOVIR 400 MG TABS 1 pill twice daily ACYCLOVIR 400 MG TABS 19720928 ACYCLOVIR Inactive DIFLUCAN 150 MG TAB 1 qODay x 2 doses DIFLUCAN 150 MG TAB 418703 FLUCONAZOLE Inactive ACYCLOVIR 400 MG TABS ACYCLOVIR 400 MG TABS 19720928 ACYCLOVIR Inactive Advance Directives Directive Description Start Date PERMISSION TO SHARE Vital Signs Date Name Value Unit Range Description blood pressure, diastolic 83 mm[Hg] BP [place] [...] temperature weight E&M 140 [lb_av] Weight Measured blood pressure, diastolic 82 mm[Hg] BP [place] blood pressure, systolic 124 mm[Hg] BP sys height E&M 63 [in_us] Bdy height pulse rate E&M 103 /min Heart rate temperature E&M 97.7 [degF] Body temperature weight E&M 138 [lb_av] Weight Measured blood pressure, diastolic 82 mm[Hg] BP [place] blood pressure, systolic 125 mm[Hg] BP sys height E&M 63 [in_us] Bdy height pulse rate E&M 96 /min Heart rate temperature E&M 97.4 [degF] Body temperature weight E&M 139 [lb_av] Weight Measured Diagnostic Results Date Name Value Unit Range Description Chart Maintenance: Outside labs entered on flowsheet - Chemistry hemoglobin A1C, blood, as % of total hemoglobin 11.8 % Office Visit: Med check 302 - Chemistry cholesterol, target level 200 mg/dL triglyceride, target level 200 mg/dL HDL cholesterol, serum, target level 35 mg/dL LDL target level 100 mg/dL Office Visit: sinusitis - Chemistry cholesterol, target level 200 mg/dL triglyceride, target level 200 mg/dL HDL cholesterol, serum, target level 35 mg/dL LDL target level 100 mg/dL Encounters Code Encounter Date Provider Facility CPT-25132 Level 3 Est. 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 Patient 10:36:08 MAID CLEANING COOKING Ang Markham MD [facility] CPT-78880 Level 3 Est. Patient 16:27:02 CDT Eri Borges MD PhD [facility] CPT-51845 Level 3 Est. Patient 10:36:43 CDT Octaviano CARBONE [facility] CPT-34471 Level 4 New Patient 08:58:06 CDT Ang Markham MD [facility] Procedures Code Procedure Name Date Entry Date Standard Description CPT-65975 Knee 3V 16:48:40 CDT CPT-OV Office Visit 16:27:13 CDT CPT-OV Office Visit 16:21:19 CDT CPT-35425 Sono pelvis non OB uterus ovaries cervix 09:37:28 CDT
--- OUTSIDE RECORDS SUMMARY | 2018-12-22 02:48 | XMS REPORT | Clinical Summary ---
Author Author Admin, ALEXANDER Organization [facility] Address Unknown Phone Unavailable Allergies, Adverse [...] TAB 1 qODay x 2 doses FLUCONAZOLE 09134975916 No Longer Active Jillina Frazell PERFORATOR OPERATOR OIL WELL Active IBUPROFEN 800 MG TABS 1 tab every 8 hours as needed for pain IBUPROFEN 14130597455 Active Jillina Frazell PERFORATOR OPERATOR OIL WELL Active LEVEMIR FLEXPEN 100 UNIT/ML SOLN 60 units SC at bedtime INSULIN DETEMIR 94729004186 Active Anthony CARBONE Active CEFTIN 500 MG TAB 1 tablet by mouth twice daily for 7 days 07/24 CEFUROXIME AXETIL 94178453486 No Longer Active Anthony CARBONE Active NITROFURANTOIN MACROCRYSTAL 100 MG CAPS 1 capsule PO bid x 7 days NITROFURANTOIN MACROCRYSTAL 85266972607 Active Anthony CARBNOE Active ZOLPIDEM TARTRATE 10 MG TABS 1 tab PO at hs ZOLPIDEM TARTRATE 61398005278 Active Anthony CARBONE Active ZOLOFT 50 MG TAB 1 tablet by mouth daily SERTRALINE HCL 78221015958 No Longer Active Anthony CARBONE Active ANUSOL-HC 2.5 % CREAM apply as needed HYDROCORTISONE (RECTAL) 73313743281 No Longer Active Anthony CARBONE Active COLACE 100 MG CAP 1 tab PO BID DOCUSATE SODIUM 97268639451 No Longer Active Anthony CARBONE Active CYCLOBENZAPRINE HCL 5 MG TABS 1/2 to 1 tab PO tid PRN CYCLOBENZAPRINE HCL 36136635300 Active Anthony CARBONE Active TRINESSA (28) 0.18/0.215/0.25 MG-35 MCG TABS 1 po qd as directed NORGESTIM-ETH ESTRAD TRIPHASIC 74727249275 No Longer Active Anthony CARBONE Active [facility] MELATONIN 5 MG TABS 1-2 po qHS PRN Insomnia MELATONIN 77248627412 No Longer Active Anthony CARBONE Active NOVOLOG FLEXPEN 100 UNIT/ML SOPN Take 18 units TID with meals INSULIN ASPART 69679870392 Active Anthony CARBONE Active ACYCLOVIR 400 MG TABS ACYCLOVIR 37947033749 No Longer Active Ang Markham MD Active EMBRACE BLOOD GLUCOSE TEST STRP Test blood sugars 4 times daily and PRN 08/05 GLUCOSE BLOOD 23304755512 Active Ang Markham MD Active HYDROXYZINE HCL 25 MG TABS 1 tab PO tid PRN itching HYDROXYZINE HCL 93604689675 No Longer Active Ang Markham MD Active DIFLUCAN 150 MG TAB 1 qODay x 2 doses FLUCONAZOLE 31744009874 No Longer Active Da Romero APRN Active ACYCLOVIR 400 MG TABS 1 pill twice daily ACYCLOVIR 93092937300 No Longer Active Da Romero APRN Active AZITHROMYCIN 250 MG TABS 2 po qd x 1 day, then 1 po qd x 4 days AZITHROMYCIN 33853224808 No Longer Active Eri Borges MD PhD Active AZITHROMYCIN 250 MG TABS take 2 po day 1 then take1 po days 2-5 AZITHROMYCIN 20900576561 No Longer Active Octaviano CARBONE Active ACYCLOVIR 400 MG TABS 1 po qd ACYCLOVIR 60118148506 No Longer Active Ang Markham MD Active PROZAC 40 MG CAPS 1 cap by mouth at bedtime FLUOXETINE HCL 05118472481 No Longer Active Ang Markham MD Active METFORMIN HCL 1000 MG TABS 1 tablet by mouth twice daily METFORMIN HCL 19392579078 Active Ang Markham MD Active HYDROXYZINE HCL 25 MG TABS 1 tab PO tid PRN itching HYDROXYZINE HCL 25 MG TABS 308215 HYDROXYZINE HCL Inactive [facility] MELAT[facility]IN 5 MG TABS 1-2 po qHS PRN Insomnia [facility] MELATONIN 5 MG TABS 589049 MELATONIN Inactive TRINESSA (28) 0.18/0.215/0.25 MG-35 MCG TABS 1 po qd as directed TRINESSA (28) 0.18/0.215/0.25 MG-35 MCG TABS 496295 NORGESTIM-ETH ESTRAD TRIPHASIC Inactive COLACE 100 MG CAP 1 tab PO BID COLACE 100 MG CAP 2026662 DOCUSATE SODIUM Inactive ANUSOL-HC 2.5 % CREAM apply as needed ANUSOL-HC 2.5 % CREAM 314365 HYDROCORTISONE (RECTAL) Inactive ZOLOFT 50 MG TAB 1 tablet by mouth daily ZOLOFT 50 MG TAB 880860 SERTRALINE HCL Inactive CEFTIN 500 MG TAB 1 tablet by mouth twice daily for 7 days 07/24 CEFTIN 500 MG TAB 858777 CEFUROXIME AXETIL Inactive ACYCLOVIR 400 MG TABS 1 po qd ACYCLOVIR 400 MG TABS 19720928 ACYCLOVIR Inactive AZITHROMYCIN 250 MG TABS take 2 po day 1 then take1 po days 2-5 AZITHROMYCIN 250 MG TABS 7975541 AZITHROMYCIN Inactive AZITHROMYCIN 250 MG TABS 2 po qd x 1 day, then 1 po qd x 4 days AZITHROMYCIN 250 MG TABS 5589456 AZITHROMYCIN Inactive ACYCLOVIR 400 MG TABS 1 pill twice daily ACYCLOVIR 400 MG TABS 19720928 ACYCLOVIR Inactive DIFLUCAN 150 MG TAB 1 qODay x 2 doses DIFLUCAN 150 MG TAB 486874 FLUCONAZOLE Inactive ACYCLOVIR 400 MG TABS ACYCLOVIR 400 MG TABS 19720928 ACYCLOVIR Inactive DIFLUCAN 150 MG TAB 1 qODay x 2 doses DIFLUCAN 150 MG TAB 515630 FLUCONAZOLE Inactive Advance Directives Directive Description Start [...] HGBA1C - Chemistry sodium, serum 131 mmol/L 905-424 6883/10/27 potassium, serum 4.8 mmol/L 3.5-5.2 chloride, serum [...] Lab Report: CBC W/DIFF, Comp. Metabolic Panel, [facility] - Hematology leukocyte count, blood 9.0 10^3/MM^3 [...] count 267 10^3/MM^3 10*3/mm3 142-424 Lab Report: Chlamydia/GC [id number] - Lab chlamydia DNA probe NOT DETECTED NOT DETECTED Lab Report: Chlamydia/GC APTIMA/[id number] - Microbiology Neisseria gonorrhoeae DNA probe NOT DETECTED NOT DETECTED Lab Report: UADIP W/MICRO, AUTO - Chemistry RBC, urine, dipstick Negative Negative RBC, urine, dipstick Negative Negative protein, total urine random Negative mg/dL Negative protein, total urine random Negative mg/dL Negative Lab Report: UADIP W/MICRO, AUTO - Urinalysis glucose, urine, semiquantitative 3+ Negative [...] Trace Negative nitrite, urine, semiquantitative Negative Negative Encounters Code Encounter Date Provider Facility CPT-94569 Level 3 Est. Patient 18:48:29 CDT Anthony [facility]field [facility] CPT-96908 Level 3 Est. Patient 12:16:59 CDT Gabriel Hunt DO [facility] CPT-72257 Level 3 Est. Patient 18:57:15 CDT Anthony Whitfield [facility] CPT-46900 Level 3 Est. 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 Patient 10:36:08 SHIRRING MACHINE OPERATOR AUTOMATIC Ang Markham MD [facility] CPT-91044 Level 3 Est. Patient 16:27:02 CDT Eri Borges MD PhD [facility] CPT-90042 Level 3 Est. Patient 10:36:43 CDT Octaviano Dempsey [facility] CPT-48457 Level 4 New Patient 08:58:06 CDT Ang Markham MD [facility] Procedures Code Procedure Name Date Entry Date Standard Description CPT-74461 Venipuncture Draw Fee 12:25:15 CDT CPT-02348 Knee 3V 16:48:40 CDT CPT-OV Office Visit 16:27:13 CDT CPT-OV Office Visit 16:21:19 CDT CPT-40010 Sono pelvis non OB uterus ovaries cervix 09:37:28 CDT
--- OUTSIDE RECORDS SUMMARY | 2018-12-22 02:49 | XMS REPORT | Clinical Summary ---
Author Author Admin, ALEXANDER Organization [facility] Address Unknown Phone Unavailable Allergies, Adverse [...] Ang Markham MD Dysthymic disorder Amenorrhea 626.0 Active Ang Markham MD Absence of menstruation ABDOMINAL PAIN RIGHT LOWER QUADRANT ICD-789.03 Inactive Eri Borges MD PhD LOM ICD-382.9 Inactive Eri Borges MD PhD SINUSITIS, ACUTE ICD-461.9 Inactive Ang Markham MD CANDIDAL VAGINITIS ICD-112.1 Inactive Ang Markham MD Cystitis, acute ICD-595.0 Inactive Ang Markham MD UTI ICD-599.0 Inactive Ang Markham MD Vaginal discharge ICD-623.5 Inactive Ang Markham MD AMENORRHEA ICD-626.0 Inactive Eri Borges MD PhD Medication List Medication Instructions Start Date Stop Date Generic Name NDC Status Provider Patient Instruction COLACE 100 MG CAP 1 po BID PRN Constipation DOCUSATE SODIUM 65543078483 Active Ang Markham MD Active HYDROXYZINE HCL 25 MG TAB 1 TID PRN nerves HYDROXYZINE HCL 94636369261 Active Ang Markham MD Active ZOLOFT 50 MG TAB 0.5 po qd x 4 days, then 1 po qd SERTRALINE HCL 35883825927 Active Ang Markham MD Active MELOXICAM 15 MG TABS 1 po q day for pain with food MELOXICAM 42658665554 Active Ang Markham MD Active IBUPROFEN 800 MG TABS 1 tab every 8 hours as needed for pain 2013 IBUPROFEN 23228378058 No Longer Active Ang Markham MD Active NITROFURANTOIN MACROCRYSTAL 100 MG CAPS 1 capsule PO bid x 7 days NITROFURANTOIN MACROCRYSTAL 76028444083 No Longer Active Ang Markham MD Active LEVEMIR FLEXPEN 100 UNIT/ML SOLN 40 units SC at bedtime INSULIN DETEMIR 50104140740 Active Ang Markham MD Active DIFLUCAN 150 MG TAB 1 qODay x 2 doses FLUCONAZOLE 45605928995 No Longer Active Da Romero APRN Active CEFTIN 500 MG TAB 1 tablet by mouth twice daily for 7 days 07/24 CEFUROXIME AXETIL 66633399551 No Longer Active Anthony CARBONE Active ZOLPIDEM TARTRATE 10 MG TABS 1 tab PO at hs ZOLPIDEM TARTRATE 37027233715 Active Anthony CARBONE Active ZOLOFT 50 MG TAB 1 tablet by mouth daily SERTRALINE HCL 47687175485 No Longer Active Anthony CARBONE Active ANUSOL-HC 2.5 % CREAM apply as needed HYDROCORTISONE (RECTAL) 01172667902 No Longer Active Anthony CARBONE Active COLACE 100 MG CAP 1 tab PO BID DOCUSATE SODIUM 58251086875 No Longer Active Anthony CARBONE Active CYCLOBENZAPRINE HCL 5 MG TABS 1/2 to 1 tab PO tid PRN CYCLOBENZAPRINE HCL 12429687233 Active Anthony CARBONE Active TRINESSA (28) 0.18/0.215/0.25 MG-35 MCG TABS 1 po qd as directed NORGESTIM-ETH ESTRAD TRIPHASIC 84176624079 No Longer Active Anthony CARBONE Active [facility] MELATONIN 5 MG TABS 1-2 po qHS PRN Insomnia MELATONIN 76527372750 No Longer Active Anthony CARBONE Active NOVOLOG FLEXPEN 100 UNIT/ML SOPN Take 18 units TID with meals INSULIN ASPART 41326882783 Active Anthony CARBONE Active ACYCLOVIR 400 MG TABS ACYCLOVIR 40272497606 No Longer Active Ang Markham MD Active EMBRACE BLOOD GLUCOSE TEST STRP Test blood sugars 4 times daily and PRN 08/05 GLUCOSE BLOOD 82905813967 Active Ang Markham MD Active HYDROXYZINE HCL 25 MG TABS 1 tab PO tid PRN itching HYDROXYZINE HCL 53294101235 No Longer Active Ang Markham MD Active DIFLUCAN 150 MG TAB 1 qODay x 2 doses FLUCONAZOLE 92698759120 No Longer Active Da Romero APRN Active ACYCLOVIR 400 MG TABS 1 pill twice daily ACYCLOVIR 84551857466 No Longer Active Da Romero APRN Active AZITHROMYCIN 250 MG TABS 2 po qd x 1 day, then 1 po qd x 4 days AZITHROMYCIN 59373437390 No Longer Active Eri Borges MD PhD Active AZITHROMYCIN 250 MG TABS take 2 po day 1 then take1 po days 2-5 AZITHROMYCIN 32401943360 No Longer Active Octavaino CARBONE Active ACYCLOVIR 400 MG TABS 1 po qd ACYCLOVIR 04516358920 No Longer Active Ang Markham MD Active PROZAC 40 MG CAPS 1 cap by mouth at bedtime FLUOXETINE HCL 93027073473 No Longer Active Ang Markham MD Active METFORMIN HCL 1000 MG TABS 1 tablet by mouth twice daily METFORMIN HCL 81922055697 Active Ang Markham MD Active HYDROXYZINE HCL 25 MG TABS 1 tab PO tid PRN itching HYDROXYZINE HCL 25 MG TABS 937284 HYDROXYZINE HCL Inactive [facility] MELATONIN 5 MG TABS 1-2 po qHS PRN Insomnia [facility] MELATONIN 5 MG TABS 864668 MELATONIN Inactive TRINESSA (28) 0.18/0.215/0.25 MG-35 MCG TABS 1 po qd as directed TRINESSA (28) 0.18/0.215/0.25 MG-35 MCG TABS 400011 NORGESTIM-ETH ESTRAD TRIPHASIC Inactive COLACE 100 MG CAP 1 tab PO BID COLACE 100 MG CAP 3264830 DOCUSATE SODIUM Inactive ANUSOL-HC 2.5 % CREAM apply as needed ANUSOL-HC 2.5 % CREAM 503706 HYDROCORTISONE (RECTAL) Inactive ZOLOFT 50 MG TAB 1 tablet by mouth daily ZOLOFT 50 MG TAB 904411 SERTRALINE HCL Inactive CEFTIN 500 MG TAB 1 tablet by mouth twice daily for 7 days 07/24 CEFTIN 500 MG TAB 044286 CEFUROXIME AXETIL Inactive NITROFURANTOIN MACROCRYSTAL 100 MG CAPS 1 capsule PO bid x 7 days NITROFURANTOIN MACROCRYSTAL 100 MG CAPS 118581 NITROFURANTOIN MACROCRYSTAL Inactive IBUPROFEN 800 MG TABS 1 tab every 8 hours as needed for pain 2013 IBUPROFEN 800 MG TABS 107303 IBUPROFEN Inactive ACYCLOVIR 400 MG TABS 1 po qd ACYCLOVIR 400 MG TABS 664589 ACYCLOVIR Inactive AZITHROMYCIN 250 MG TABS take 2 po day 1 then take1 po days 2-5 AZITHROMYCIN 250 MG TABS 3982137 AZITHROMYCIN Inactive AZITHROMYCIN 250 MG TABS 2 po qd x 1 day, then 1 po qd x 4 days AZITHROMYCIN 250 MG TABS 5089620 AZITHROMYCIN Inactive ACYCLOVIR 400 MG TABS 1 pill twice daily ACYCLOVIR 400 MG TABS 19720928 ACYCLOVIR Inactive DIFLUCAN 150 MG TAB 1 qODay x 2 doses DIFLUCAN 150 MG TAB 19760606 FLUCONAZOLE Inactive ACYCLOVIR 400 MG TABS ACYCLOVIR 400 MG TABS 19720928 ACYCLOVIR Inactive DIFLUCAN 150 MG TAB 1 qODay x 2 doses DIFLUCAN 150 MG TAB 19760606 FLUCONAZOLE Inactive Advance Directives Directive Description Start Date PERMISSION TO SHARE Vital Signs Date Name Value Unit Range Description blood pressure, diastolic - 8462-4 86 mm[Hg] [...] HGBA1C - Chemistry sodium, serum 131 mmol/L 641-884 9520/10/27 potassium, serum 4.8 mmol/L 3.5-5.2 chloride, serum [...] 267 10^3/MM^3 10*3/mm3 142-424 Lab Report: Chlamydia/GC APTIMA/[id number] - Lab chlamydia DNA probe NOT DETECTED NOT DETECTED Lab Report: Chlamydia/GC APTIMA/[id number] - Microbiology Neisseria gonorrhoeae DNA probe NOT [...] Negative Encounters Code Encounter Date Provider Facility CPT-62638 Level 3 Est. Patient 08:58:08 [employer] Ang Markham MD [facility] CPT-40830 Level 3 Est. Patient 18:48:29 CDT Anthony CARBONE [facility] CPT-40599 Level 3 Est. Patient 12:16:59 CDT Gabriel Hunt DO [facility] CPT-29731 Level 3 Est. Patient 18:57:15 CDT Anhtony CARBONE [facility] CPT-73242 Level 3 Est. Patient 13:59:22 [employer] Ang Markham MD [facility] CPT-10651 Level 4 Est. Patient 10:36:08 [employer] Ang Markham MD [facility] CPT-29417 Level 3 Est. Patient 16:27:02 CDT Eri Borges MD PhD [facility] CPT-02783 Level 3 Est. Patient 10:36:43 CDT Octaviano Dempsey [facility] CPT-13026 Level 4 New Patient 08:58:06 CDT Ang Markham MD [facility] Procedures Code Procedure Name Date Entry Date Standard Description CPT-57710 Venipuncture Draw Fee 12:25:15 CDT CPT-26122 Knee 3V 16:48:40 CDT CPT-OV Office Visit 16:27:13 CDT CPT-OV Office Visit 16:21:19 CDT CPT-94134 Sono pelvis non OB uterus ovaries cervix 09:37:28 CDT
--- OUTSIDE RECORDS SUMMARY | 2018-12-22 02:49 | XMS REPORT | Clinical Summary ---
Author Author Admin, ALEXANDER Organization [facility] Address Unknown Phone Unavailable Allergies, Adverse [...] 60 units SC at bedtime INSULIN DETEMIR 92664937824 Active Anthony CARBONE Active CEFTIN 500 MG TAB 1 tablet by mouth twice daily for 7 days 07/24 CEFUROXIME AXETIL 08402705993 No Longer Active Anthony CARBONE Active NITROFURANTOIN MACROCRYSTAL 100 MG CAPS 1 capsule PO bid x 7 days NITROFURANTOIN MACROCRYSTAL 18887747517 Active Anthony CARBONE Active ZOLPIDEM TARTRATE 10 MG TABS 1 tab PO at hs ZOLPIDEM TARTRATE 65966639312 Active Anthony CARBONE Active ZOLOFT 50 MG TAB 1 tablet by mouth daily SERTRALINE HCL 85602920726 No Longer Active Anthony CARBONE Active ANUSOL-HC 2.5 % CREAM apply as needed HYDROCORTISONE (RECTAL) 49736252323 No Longer Active Anthony CARBONE Active COLACE 100 MG CAP 1 tab PO BID DOCUSATE SODIUM 19535142808 No Longer Active Anthony CARBONE Active CYCLOBENZAPRINE HCL 5 MG TABS 1/2 to 1 tab PO tid PRN CYCLOBENZAPRINE HCL 95682275233 Active Anthony CARBONE Active TRINESSA (28) 0.18/0.215/0.25 MG-35 MCG TABS 1 po qd as directed NORGESTIM-ETH ESTRAD TRIPHASIC 87211756804 No Longer Active Anthony CARBONE Active [facility] MELATONIN 5 MG TABS 1-2 po qHS PRN Insomnia MELATONIN 82787618205 No Longer Active Anthony CARBONE Active NOVOLOG FLEXPEN 100 UNIT/ML SOPN Take 18 units TID with meals INSULIN ASPART 39190334250 Active Anthony CARBONE Active ACYCLOVIR 400 MG TABS ACYCLOVIR 84424838634 No Longer Active Ang Markham MD Active EMBRACE BLOOD GLUCOSE TEST STRP Test blood sugars 4 times daily and PRN 08/05 GLUCOSE BLOOD 20310521292 Active Ang Markham MD Active HYDROXYZINE HCL 25 MG TABS 1 tab PO tid PRN itching HYDROXYZINE HCL 10900333559 No Longer Active Ang Markham MD Active DIFLUCAN 150 MG TAB 1 qODay x 2 doses FLUCONAZOLE 72798887170 No Longer Active Da Romero APRN Active ACYCLOVIR 400 MG TABS 1 pill twice daily ACYCLOVIR 44207823828 No Longer Active Da Romero APRN Active AZITHROMYCIN 250 MG TABS 2 po qd x 1 day, then 1 po qd x 4 days AZITHROMYCIN 24687443929 No Longer Active Eri Borges MD PhD Active AZITHROMYCIN 250 MG TABS take 2 po day 1 then take1 po days 2-5 AZITHROMYCIN 59090130462 No Longer Active Octaviano CARBONE Active ACYCLOVIR 400 MG TABS 1 po qd ACYCLOVIR 72784023664 No Longer Active Ang Markham MD Active PROZAC 40 MG CAPS 1 cap by mouth at bedtime FLUOXETINE HCL 70093310686 No Longer Active Ang Markham MD Active METFORMIN HCL 1000 MG TABS 1 tablet by mouth twice daily METFORMIN HCL 18249599162 Active Ang Markham MD Active HYDROXYZINE HCL 25 MG TABS 1 tab PO tid PRN itching HYDROXYZINE HCL 25 MG TABS 155162 HYDROXYZINE HCL Inactive [facility] MELATONIN 5 MG TABS 1-2 po qHS PRN Insomnia [facility] MELATONIN 5 MG TABS 543294 MELATONIN Inactive TRINESSA (28) 0.18/0.215/0.25 MG-35 MCG TABS 1 po qd as directed TRINESSA (28) 0.18/0.215/0.25 MG-35 MCG TABS 595465 NORGESTIM-ETH ESTRAD TRIPHASIC Inactive COLACE 100 MG CAP 1 tab PO BID COLACE 100 MG CAP 1442646 DOCUSATE SODIUM Inactive ANUSOL-HC 2.5 % CREAM apply as needed ANUSOL-HC 2.5 % CREAM 560338 HYDROCORTISONE (RECTAL) Inactive ZOLOFT 50 MG TAB 1 tablet by mouth daily ZOLOFT 50 MG TAB 932482 SERTRALINE HCL Inactive CEFTIN 500 MG TAB 1 tablet by mouth twice daily for 7 days 07/24 CEFTIN 500 MG TAB 206920 CEFUROXIME AXETIL Inactive ACYCLOVIR 400 MG TABS 1 po qd ACYCLOVIR 400 MG TABS 191700 ACYCLOVIR Inactive AZITHROMYCIN 250 MG TABS take 2 po day 1 then take1 po days 2-5 AZITHROMYCIN 250 MG TABS 7250316 AZITHROMYCIN Inactive AZITHROMYCIN 250 MG TABS 2 po qd x 1 day, then 1 po qd x 4 days AZITHROMYCIN 250 MG TABS 0660370 AZITHROMYCIN Inactive ACYCLOVIR 400 MG TABS 1 pill twice daily ACYCLOVIR 400 MG TABS 19720928 ACYCLOVIR Inactive DIFLUCAN 150 MG TAB 1 qODay x 2 doses DIFLUCAN 150 MG TAB 432707 FLUCONAZOLE Inactive ACYCLOVIR 400 MG TABS ACYCLOVIR [...] HGBA1C - Chemistry sodium, serum 131 mmol/L 001-465 8041/10/27 potassium, serum 4.8 mmol/L 3.5-5.2 chloride, serum [...] mg/dL Encounters Code Encounter Date Provider Facility CPT-80924 Level 3 Est. Patient 12:16:59 CDT Gabriel Hunt DO [facility] CPT-32466 Level 3 Est. Patient 18:57:15 CDT Anthony CARBONE [facility] CPT-41644 Level 3 Est. 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 Patient 16:27:02 CDT Eri Borges MD PhD [facility] CPT-95429 Level 3 Est. Patient 10:36:43 CDT Kellyfaviola Roselyn CARBONE [facility] CPT-61940 Level 4 New Patient 08:58:06 CDT Ang Markham MD [facility] Procedures Code Procedure Name Date Entry Date Standard Description CPT-04811 Venipuncture Draw Fee 12:25:15 CDT CPT-16919 Knee 3V 16:48:40 CDT CPT-OV Office Visit 16:27:13 CDT CPT-OV Office Visit 16:21:19 CDT CPT-93532 Sono pelvis non OB uterus ovaries cervix 09:37:28 CDT
--- OUTSIDE RECORDS SUMMARY | 2018-12-22 02:50 | XMS REPORT | Clinical Summary ---
[...] 60 units SC at bedtime INSULIN DETEMIR 52632846160 Active Anthony CARBONE Active CEFTIN 500 MG TAB 1 tablet by mouth twice daily for 7 days 07/24 CEFUROXIME AXETIL 94296956369 No Longer Active Anthony CARBONE Active NITROFURANTOIN MACROCRYSTAL 100 MG CAPS 1 capsule PO bid x 7 days NITROFURANTOIN MACROCRYSTAL 95699737401 Active Anthony CARBONE Active ZOLPIDEM TARTRATE 10 MG TABS 1 tab PO at hs ZOLPIDEM TARTRATE 98602560706 Active Anthony CARBONE Active ZOLOFT 50 MG TAB 1 tablet by mouth daily SERTRALINE HCL 32253881201 No Longer Active Anthony CARBONE Active ANUSOL-HC 2.5 % CREAM apply as needed HYDROCORTISONE (RECTAL) 27847056625 No Longer Active Anthony CARBONE Active COLACE 100 MG CAP 1 tab PO BID DOCUSATE SODIUM 43205444087 No Longer Active Anthony CARBONE Active CYCLOBENZAPRINE HCL 5 MG TABS 1/2 to 1 tab PO tid PRN CYCLOBENZAPRINE HCL 55974435482 Active Anthony CARBONE Active TRINESSA (28) 0.18/0.215/0.25 MG-35 MCG TABS 1 po qd as directed NORGESTIM-ETH ESTRAD TRIPHASIC 03080930006 No Longer Active Anthony CARBONE Active [facility] MELATONIN 5 MG TABS 1-2 po qHS PRN Insomnia MELATONIN 73261278054 No Longer Active Anthony CARBONE Active NOVOLOG FLEXPEN 100 UNIT/ML SOPN Take 18 units TID with meals INSULIN ASPART 84659022813 Active Anthony CARBONE Active ACYCLOVIR 400 MG TABS ACYCLOVIR 30486559418 No Longer Active Ang Markham MD Active EMBRACE BLOOD GLUCOSE TEST STRP Test blood sugars 4 times daily and PRN 08/05 GLUCOSE BLOOD 73824840278 Active Ang Markham MD Active HYDROXYZINE HCL 25 MG TABS 1 tab PO tid PRN itching HYDROXYZINE HCL 05402931405 No Longer Active Ang Markham MD Active DIFLUCAN 150 MG TAB 1 qODay x 2 doses FLUCONAZOLE 01707694839 No Longer Active Da Romero APRN Active ACYCLOVIR 400 MG TABS 1 pill twice daily ACYCLOVIR 20239226378 No Longer Active Da Romero APRN Active AZITHROMYCIN 250 MG TABS 2 po qd x 1 day, then 1 po qd x 4 days AZITHROMYCIN 20864595456 No Longer Active Eri Borges MD PhD Active AZITHROMYCIN 250 MG TABS take 2 po day 1 then take1 po days 2-5 AZITHROMYCIN 45404784678 No Longer Active Octaviano CARBONE Active ACYCLOVIR 400 MG TABS 1 po qd ACYCLOVIR 61206642739 No Longer Active Ang Markham MD Active PROZAC 40 MG CAPS 1 cap by mouth at bedtime FLUOXETINE HCL 06136679704 No Longer Active Ang Markham MD Active METFORMIN HCL 1000 MG TABS 1 tablet by mouth twice daily METFORMIN HCL 77027288492 Active Ang Markham MD Active HYDROXYZINE HCL 25 MG TABS 1 tab PO tid PRN itching HYDROXYZINE HCL 25 MG TABS 547983 HYDROXYZINE HCL Inactive [facility] MELATONIN 5 MG TABS 1-2 po qHS PRN Insomnia [facility] MELATONIN 5 MG TABS 381009 MELATONIN Inactive TRINESSA (28) 0.18/0.215/0.25 MG-35 MCG TABS 1 po qd as directed TRINESSA (28) 0.18/0.215/0.25 MG-35 MCG TABS 714342 NORGESTIM-ETH ESTRAD TRIPHASIC Inactive COLACE 100 MG CAP 1 tab PO BID COLACE 100 MG CAP 8218459 DOCUSATE SODIUM Inactive ANUSOL-HC 2.5 % CREAM apply as needed ANUSOL-HC 2.5 % CREAM 057257 HYDROCORTISONE (RECTAL) Inactive ZOLOFT 50 MG TAB 1 tablet by mouth daily ZOLOFT 50 MG TAB 030896 SERTRALINE HCL Inactive CEFTIN 500 MG TAB 1 tablet by mouth twice daily for 7 days 07/24 CEFTIN 500 MG TAB 370153 CEFUROXIME AXETIL Inactive ACYCLOVIR 400 MG TABS 1 po qd ACYCLOVIR 400 MG TABS 495883 ACYCLOVIR Inactive AZITHROMYCIN 250 MG TABS take 2 po day 1 then take1 po days 2-5 AZITHROMYCIN 250 MG TABS 0701712 AZITHROMYCIN Inactive AZITHROMYCIN 250 MG TABS 2 po qd x 1 day, then 1 po qd x 4 days AZITHROMYCIN 250 MG TABS 1234227 AZITHROMYCIN Inactive ACYCLOVIR 400 MG TABS 1 pill twice daily ACYCLOVIR 400 MG TABS 19720928 ACYCLOVIR Inactive DIFLUCAN 150 MG TAB 1 qODay x 2 doses DIFLUCAN 150 MG TAB 988061 FLUCONAZOLE Inactive ACYCLOVIR 400 MG TABS ACYCLOVIR [...] HGBA1C - Chemistry sodium, serum 131 mmol/L 803-758 7934/10/27 potassium, serum 4.8 mmol/L 3.5-5.2 chloride, serum [...] mg/dL Encounters Code Encounter Date Provider Facility CPT-71538 Level 3 Est. Patient 12:16:59 CDT Gabriel Hunt DO [facility] CPT-13982 Level 3 Est. Patient 18:57:15 CDT Anthony CARBONE [facility] CPT-19932 Level 3 Est. 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 Patient 10:36:08 SENIOR TEST ANALYST Ang Markham MD [facility] CPT-87520 Level 3 Est. Patient 16:27:02 CDT Eri Borges MD PhD [facility] CPT-97547 Level 3 Est. Patient 10:36:43 CDT Kellyfaviola Roselyn CARBONE [facility] CPT-92858 Level 4 New Patient 08:58:06 CDT Ang Markham MD [facility] Procedures Code Procedure Name Date Entry Date Standard Description CPT-29443 Venipuncture Draw Fee 12:25:15 CDT CPT-66411 Knee 3V 16:48:40 CDT CPT-OV Office Visit 16:27:13 CDT CPT-OV Office Visit 16:21:19 CDT CPT-35021 Sono pelvis non OB uterus ovaries cervix 09:37:28 CDT
--- OUTSIDE RECORDS SUMMARY | 2018-12-22 02:50 | XMS REPORT | Clinical Summary ---
Author Author Admin, ALEXANDER Organization [facility] Address Unknown Phone Unavailable Allergies, Adverse Reactions, [...] TAB 1 qODay x 2 doses FLUCONAZOLE 09454454891 No Longer Active Jillina Frazell FLUE LINING DIPPER Active IBUPROFEN 800 MG TABS 1 tab every 8 hours as needed for pain IBUPROFEN 64298069159 Active Jillina Frazell FLUE LINING DIPPER Active LEVEMIR FLEXPEN 100 UNIT/ML SOLN 60 units SC at bedtime INSULIN DETEMIR 60007451871 Active Anthony CARBONE Active CEFTIN 500 MG TAB 1 tablet by mouth twice daily for 7 days 07/24 CEFUROXIME AXETIL 62723357740 No Longer Active Anthony CARBONE Active NITROFURANTOIN MACROCRYSTAL 100 MG CAPS 1 capsule PO bid x 7 days NITROFURANTOIN MACROCRYSTAL 72319963723 Active Anthony CARBONE Active ZOLPIDEM TARTRATE 10 MG TABS 1 tab PO at hs ZOLPIDEM TARTRATE 03410737191 Active Anthony CARBONE Active ZOLOFT 50 MG TAB 1 tablet by mouth daily SERTRALINE HCL 92233073207 No Longer Active Anthony CARBONE Active ANUSOL-HC 2.5 % CREAM apply as needed HYDROCORTISONE (RECTAL) 55135040226 No Longer Active Anthony CARBONE Active COLACE 100 MG CAP 1 tab PO BID DOCUSATE SODIUM 27906602351 No Longer Active Anthony CARBONE Active CYCLOBENZAPRINE HCL 5 MG TABS 1/2 to 1 tab PO tid PRN CYCLOBENZAPRINE HCL 01689026830 Active Anthony CARBONE Active TRINESSA (28) 0.18/0.215/0.25 MG-35 MCG TABS 1 po qd as directed NORGESTIM-ETH ESTRAD TRIPHASIC 28647532969 No Longer Active Anthony CARBONE Active [facility] MELATONIN 5 MG TABS 1-2 po qHS PRN Insomnia MELATONIN 86000156281 No Longer Active Anthony CARBONE Active NOVOLOG FLEXPEN 100 UNIT/ML SOPN Take 18 units TID with meals INSULIN ASPART 70369510060 Active Anthony CARBONE Active ACYCLOVIR 400 MG TABS ACYCLOVIR 52827252593 No Longer Active Ang Markham MD Active EMBRACE BLOOD GLUCOSE TEST STRP Test blood sugars 4 times daily and PRN 08/05 GLUCOSE BLOOD 28830835630 Active Ang Markham MD Active HYDROXYZINE HCL 25 MG TABS 1 tab PO tid PRN itching HYDROXYZINE HCL 82772564596 No Longer Active Ang Markham MD Active DIFLUCAN 150 MG TAB 1 qODay x 2 doses FLUCONAZOLE 52691090374 No Longer Active Da Romero APRN Active ACYCLOVIR 400 MG TABS 1 pill twice daily ACYCLOVIR 10512241245 No Longer Active Da Romero APRN Active AZITHROMYCIN 250 MG TABS 2 po qd x 1 day, then 1 po qd x 4 days AZITHROMYCIN 19182458218 No Longer Active Eri Borges MD PhD Active AZITHROMYCIN 250 MG TABS take 2 po day 1 then take1 po days 2-5 AZITHROMYCIN 58925980003 No Longer Active Octaviano CARBONE Active ACYCLOVIR 400 MG TABS 1 po qd ACYCLOVIR 65707409708 No Longer Active Ang Markham MD Active PROZAC 40 MG CAPS 1 cap by mouth at bedtime FLUOXETINE HCL 01346583828 No Longer Active Ang Markham MD Active METFORMIN HCL 1000 MG TABS 1 tablet by mouth twice daily METFORMIN HCL 18133715043 Active Ang Markham MD Active HYDROXYZINE HCL 25 MG TABS 1 tab PO tid PRN itching HYDROXYZINE HCL 25 MG TABS 992860 HYDROXYZINE HCL Inactive [facility] MELATONIN 5 MG TABS 1-2 po qHS PRN Insomnia [facility] MELATONIN 5 MG TABS 893119 MELATONIN Inactive TRINESSA (28) 0.18/0.215/0.25 MG-35 MCG TABS 1 po qd as directed TRINESSA (28) 0.18/0.215/0.25 MG-35 MCG TABS 693554 NORGESTIM-ETH ESTRAD TRIPHASIC Inactive COLACE 100 MG CAP 1 tab PO BID COLACE 100 MG CAP 9989564 DOCUSATE SODIUM Inactive ANUSOL-HC 2.5 % CREAM apply as needed ANUSOL-HC 2.5 % CREAM 718174 HYDROCORTISONE (RECTAL) Inactive ZOLOFT 50 MG TAB 1 tablet by mouth daily ZOLOFT 50 MG TAB 077992 SERTRALINE HCL Inactive CEFTIN 500 MG TAB 1 tablet by mouth twice daily for 7 days 07/24 CEFTIN 500 MG TAB 994191 CEFUROXIME AXETIL Inactive ACYCLOVIR 400 MG TABS 1 po qd ACYCLOVIR 400 MG TABS 19720928 ACYCLOVIR Inactive AZITHROMYCIN 250 MG TABS take 2 po day 1 then take1 po days 2-5 AZITHROMYCIN 250 MG TABS 0018641 AZITHROMYCIN Inactive AZITHROMYCIN 250 MG TABS 2 po qd x 1 day, then 1 po qd x 4 days AZITHROMYCIN 250 MG TABS 1410071 AZITHROMYCIN Inactive ACYCLOVIR 400 MG TABS 1 pill twice daily ACYCLOVIR 400 MG TABS 19720928 ACYCLOVIR Inactive DIFLUCAN 150 MG TAB 1 qODay x 2 doses DIFLUCAN 150 MG TAB 405856 FLUCONAZOLE Inactive ACYCLOVIR 400 MG TABS ACYCLOVIR 400 MG TABS 19720928 ACYCLOVIR Inactive DIFLUCAN 150 MG TAB 1 qODay x 2 doses DIFLUCAN 150 MG TAB 348067 FLUCONAZOLE Inactive Advance Directives Directive Description Start Date PERMISSION TO SHARE Vital Signs Date Name Value Unit Range Description blood pressure, diastolic - 8462-4 84 mm[Hg] [...] HGBA1C - Chemistry sodium, serum 131 mmol/L 818-327 6950/10/27 potassium, serum 4.8 mmol/L 3.5-5.2 chloride, serum [...] 267 10^3/MM^3 10*3/mm3 142-424 Lab Report: Chlamydia/GC APTIMA/[id number] - Lab chlamydia DNA probe NOT DETECTED NOT DETECTED Lab Report: Chlamydia/GC APTIMA/[id number] - Microbiology Neisseria gonorrhoeae DNA probe NOT [...] Negative Encounters Code Encounter Date Provider Facility CPT-21935 Level 3 Est. Patient 18:48:29 CDT Anthony CARBONE [facility] CPT-56163 Level 3 Est. Patient 12:16:59 CDT Gabriel Hunt DO [facility] CPT-50642 Level 3 Est. Patient 18:57:15 CDT Anthony CARBONE [facility] CPT-87219 Level 3 Est. 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 Patient 16:27:02 CDT Eri Borges MD PhD [facility] CPT-99466 Level 3 Est. Patient 10:36:43 CDT Octaviano Dempsey [facility] CPT-30651 Level 4 New Patient 08:58:06 CDT Ang Markham MD [facility] Procedures Code Procedure Name Date Entry Date Standard Description CPT-23974 Venipuncture Draw Fee 12:25:15 CDT CPT-90814 Knee 3V 16:48:40 CDT CPT-OV Office Visit 16:27:13 CDT CPT-OV Office Visit 16:21:19 CDT CPT-40823 Sono pelvis non OB uterus ovaries cervix 09:37:28 CDT
--- OUTSIDE RECORDS SUMMARY | 2018-12-22 02:50 | XMS REPORT ---
Author Author [facility] Medical Staff Organization [facility] Address [address] [place], [place] [address] Phone [phone] Care Team Providers Care House Decorator Name Role Phone ALMAS HAWLEY MD PP [phone] Summary purpose TRANSITION OF CARE AUTO GENERATION Chief Complaint and Reason for Visit Admit Diagnosis 1 DYSURIA Problem list No authorized problems tracked for [...] Times Daily for herpes Current Doctor's office Zoloft 50 mg tablet [...] tests and/or laboratory data RESULTS Routine Urinalysis 51-72-673011:05:00 Result Normal Range Units Color Straw Clarity Clear Specific Beeson <=1.005 1.003-1.035 pH 6.5 4.5-8.0 Glucose 3+ Bilirubin NEGATIVE Ketones NEGATIVE Protein NEGATIVE Urobilinogen 0.2 0-0.2 E.U./dL Nitrites NEGATIVE Blood NEGATIVE Leukocytes 1+ Culture Set WBCs 20-30 RBCs 0-5 Squamous Epithelial Few Bacteria Occasional Yeast 2+ Routine Cultures [id number]:05:00 Urine Culture Plate Date and Time 12/03/2014 23:32 SourceURINE CULTURE REPORT >100,000 colonies/ml Mixed Gram Pos Nancy with 50,000 colonies/ml Streptococcus Species ID to follow. Release Date/Time: 12/05/2014 08:54 ORGID #1:50,000 colonies/ml STREPTOCOCCUS AGALACTIAE - (GROUP B) Release Date/Time: 12/05/2014 08:54 Body Fluid [id number]:05:00 Result Normal Range Units pH 6.5 4.5-8.0 History of procedures Procedure Code Code Type Description Date Performed Performing Physician 04398 CPT-4 URINALYSIS, AUTO W/SCOPE 12-03-2014 MALLIKA MUIR 06066 CPT-4 URINE CULTURE/COLONY COUNT 12-03-2014 MALLIKA MUIR 49549 CPT-4 URINE TEST 12-03-2014 MALLIKA MUIR 85924 CPT-4 CULTURE TYPE, IMMUNOLOGIC 12-03-2014 MALLIKA MUIR 30650 CPT-4 EMERGENCY DEPT VISIT 12-03-2014 MALLIKA MUIR 22682 CPT-4 EMERGENCY DEPT VISIT 12-03-2014 MALLIKA MUIR Functional status Functional Status Finding Observation Time Diet regular 44-91-268475:21 Abdomen Appearance obese 34-85-346834:21 Abdomen soft 53-22-636852:21 Bowel Sounds present 35-34-694307:21 Urination normal 70-98-146160:21 Quality sym/unlabored :21 Cough absent :21 Secretions no :21 Airway natural 26-85-122110:21 Chest Tube no 52-07-420239:21 Oxygen no :43 Temp >100.4 no :21 Temp <96.8 no :21 Chills with rigors no :21 HR > 90bpm yes :21 Respirations > 20 no :21 Systolic <90 no :21 headache stiff neck no :21 Rapid Resp no :21 Nursing Note Pt dc in good condition. she amb off unit with boyfriend dc instruction and rx in hand. Registration already done with her. :43 Vital signs Type Value Date Respiration Rate 18breaths per minute :43 Pulse 110beats per minute :43 Oxygen Saturation 100% :43 BP Systolic 110mmHg :43 BP Diastolic 77mmHg :43 Temperature 97.6F :43 Weight 134.8LB :35 Social history Type Value Smoking Status CURRENT EVERY DAY SMOKER Treatment Plan No treatment plan text is available for this visit. Hospital discharge instructions Dismissal Condition good Disposition on DC home DC Inst/Educ Give yes Med/Side Effects Rev yes
--- OUTSIDE RECORDS SUMMARY | 2018-12-22 02:51 | XMS REPORT | Clinical Summary ---
[...] MG TAB 1 po qHS ATORVASTATIN CALCIUM 87796180266 Active Ang Markham MD Active METFORMIN HCL 1000 MG TABS 1 tablet by mouth twice daily METFORMIN HCL 83102070616 Active Ang Markham MD Active CYCLOBENZAPRINE HCL 5 MG TABS 1 po qHS PRN Muscle pain CYCLOBENZAPRINE HCL 69144029564 Active Ang Markham MD Active MELOXICAM 15 MG TABS 1 po qd PRN Knee Pain MELOXICAM 79897392302 Active Ang Markham MD Active ZOLOFT 50 MG TAB 1 po qd SERTRALINE HCL 74216455934 Active Ang Markham MD Active COLACE 100 MG CAP 1 po BID PRN Constipation DOCUSATE SODIUM 94264653575 No Longer Active Ang Markham MD Active HYDROXYZINE HCL 25 MG TAB 1 TID PRN nerves HYDROXYZINE HCL 38006207256 Active Ang Markham MD Active IBUPROFEN 800 MG TABS 1 tab every 8 hours as needed for pain 2013 IBUPROFEN 41215302239 No Longer Active Ang Markham MD Active NITROFURANTOIN MACROCRYSTAL 100 MG CAPS 1 capsule PO bid x 7 days NITROFURANTOIN MACROCRYSTAL 43304660292 No Longer Active Ang Markham MD Active LEVEMIR FLEXPEN 100 UNIT/ML SOLN 40 units SC at bedtime INSULIN DETEMIR 90663491648 Active Ang Markham MD Active DIFLUCAN 150 MG TAB 1 qODay x 2 doses FLUCONAZOLE 96132437645 No Longer Active Da Nguyenl RECLAMATION SUPERVISOR Active CEFTIN 500 MG TAB 1 tablet by mouth twice daily for 7 days 07/24 CEFUROXIME AXETIL 42244779862 No Longer Active Anthony CARBONE Active ZOLPIDEM TARTRATE 10 MG TABS 1 tab PO at hs ZOLPIDEM TARTRATE 77261467510 Active Ang Markham MD Active ZOLOFT 50 MG TAB 1 tablet by mouth daily SERTRALINE HCL 44851997762 No Longer Active Anthony CARBONE Active ANUSOL-HC 2.5 % CREAM apply as needed HYDROCORTISONE (RECTAL) 32567158794 No Longer Active Anthony CARBONE Active COLACE 100 MG CAP 1 tab PO BID DOCUSATE SODIUM 72623197938 No Longer Active Anthony CARBONE Active TRINESSA (28) 0.18/0.215/0.25 MG-35 MCG TABS 1 po qd as directed NORGESTIM-ETH ESTRAD TRIPHASIC 18789798281 No Longer Active Anthony CARBONE Active [facility] MELATONIN 5 MG TABS 1-2 po qHS PRN Insomnia MELATONIN 89631767110 No Longer Active Anthony CARBONE Active NOVOLOG FLEXPEN 100 UNIT/ML SOPN Take 18 units TID with meals INSULIN ASPART 98074205542 Active Anthony CARBONE Active ACYCLOVIR 400 MG TABS ACYCLOVIR 22985325814 No Longer Active Ang Markham MD Active EMBRACE BLOOD GLUCOSE TEST STRP Test blood sugars 4 times daily and PRN 08/05 GLUCOSE BLOOD 81391865697 Active Ang Markham MD Active HYDROXYZINE HCL 25 MG TABS 1 tab PO tid PRN itching HYDROXYZINE HCL 05308001741 No Longer Active Ang Markham MD Active DIFLUCAN 150 MG TAB 1 qODay x 2 doses FLUCONAZOLE 07106913027 No Longer Active Da Romero APRN Active ACYCLOVIR 400 MG TABS 1 pill twice daily ACYCLOVIR 37824126702 No Longer Active Josephllina Nick GUTIERREZN Active AZITHROMYCIN 250 MG TABS 2 po qd x 1 day, then 1 po qd x 4 days AZITHROMYCIN 52970846182 No Longer Active Eri Borges MD PhD Active AZITHROMYCIN 250 MG TABS take 2 po day 1 then take1 po days 2-5 AZITHROMYCIN 50947471487 No Longer Active Octaviano CARBONE Active ACYCLOVIR 400 MG TABS 1 po qd ACYCLOVIR 31707470312 No Longer Active Ang Markham MD Active PROZAC 40 MG CAPS 1 cap by mouth at bedtime FLUOXETINE HCL 60946635920 No Longer Active Ang Markham MD Active HYDROXYZINE HCL 25 MG TABS 1 tab PO tid PRN itching HYDROXYZINE HCL 25 MG TABS 329468 HYDROXYZINE HCL Inactive [facility] MELATONIN 5 MG TABS 1-2 po qHS PRN Insomnia [facility] MELATONIN 5 MG TABS 423959 MELATONIN Inactive TRINESSA (28) 0.18/0.215/0.25 MG-35 MCG TABS 1 po qd as directed TRINESSA (28) 0.18/0.215/0.25 MG-35 MCG TABS 144584 NORGESTIM-ETH ESTRAD TRIPHASIC Inactive COLACE 100 MG CAP 1 tab PO BID COLACE 100 MG CAP 4409914 DOCUSATE SODIUM Inactive ANUSOL-HC 2.5 % CREAM apply as needed ANUSOL-HC 2.5 % CREAM 686926 HYDROCORTISONE (RECTAL) Inactive ZOLOFT 50 MG TAB 1 tablet by mouth daily ZOLOFT 50 MG TAB 052661 SERTRALINE HCL Inactive CEFTIN 500 MG TAB 1 tablet by mouth twice daily for 7 days 07/24 CEFTIN 500 MG TAB 970781 CEFUROXIME AXETIL Inactive NITROFURANTOIN MACROCRYSTAL 100 MG CAPS 1 capsule PO bid x 7 days NITROFURANTOIN MACROCRYSTAL 100 MG CAPS 294341 NITROFURANTOIN MACROCRYSTAL Inactive IBUPROFEN 800 MG TABS 1 tab every 8 hours as needed for pain 2013 IBUPROFEN 800 MG TABS 416136 IBUPROFEN Inactive COLACE 100 MG CAP 1 po BID PRN Constipation COLACE 100 MG CAP 2294457 DOCUSATE SODIUM Inactive ACYCLOVIR 400 MG TABS 1 po qd ACYCLOVIR 400 MG TABS 19720928 ACYCLOVIR Inactive AZITHROMYCIN 250 MG TABS take 2 po day 1 then take1 po days 2-5 AZITHROMYCIN 250 MG TABS 7024424 AZITHROMYCIN Inactive AZITHROMYCIN 250 MG TABS 2 po qd x 1 day, then 1 po qd x 4 days AZITHROMYCIN 250 MG TABS 8225753 AZITHROMYCIN Inactive ACYCLOVIR 400 MG TABS 1 pill twice daily ACYCLOVIR 400 MG TABS 19720928 ACYCLOVIR Inactive DIFLUCAN 150 MG TAB 1 qODay x 2 doses DIFLUCAN 150 MG TAB 370270 FLUCONAZOLE Inactive ACYCLOVIR 400 MG TABS ACYCLOVIR 400 MG TABS 800960 ACYCLOVIR Inactive DIFLUCAN 150 MG TAB 1 qODay x 2 doses DIFLUCAN 150 MG TAB 472603 FLUCONAZOLE Inactive Advance Directives Directive Description Start [...] CBC W/DIFF, Comp. Metabolic Panel, BA1C - Chemistry sodium, serum 131 mmol/L 572-770 7413/10/27 potassium, serum 4.8 mmol/L 3.5-5.2 chloride, serum [...] HGBA1C - Chemistry sodium, serum 139 mmol/L 037-249 2344/02/03 potassium, serum 4.4 mmol/L 3.5-5.2 chloride, serum 98 mmol/L 98-107 carbon dioxide, venous blood 31.5 mmol/L 21.0-32.0 blood glucose 304 mg/dL 65-110 urea nitrogen, blood 10 mg/dL 7-18 creatinine, serum 0.80 mg/dL 0.60-1.30 alanine aminotransferase (SGPT), serum 23 U/L 12-78 aspartate aminotransferase (SGOT), serum 16 U/L 15-37 calcium, serum 9.4 mg/dL 8.5-10.1 bilirubin, serum, total 0.20 mg/dL 0.00-1.00 cholesterol, serum 309 mg/dL 891-198 8184/02/03 triglyceride, serum, fasting 277 mg/dL 30-200 HDL [...] 273 10^3/MM^3 10*3/mm3 142-424 Lab Report: Chlamydia/GC APTIMA/[id number] - Lab chlamydia DNA probe NOT DETECTED NOT DETECTED Lab Report: Chlamydia/GC APTIMA/60093 - Microbiology Neisseria gonorrhoeae DNA probe NOT [...] Negative Encounters Code Encounter Date Provider Facility CPT-02046 Level 4 Est. Patient 13:53:06 PAINTING WORKER Ang Markham MD [facility] CPT-59793 Level 3 Est. Patient 08:58:08 PAINTING WORKER Ang Markham MD [facility] CPT-43197 Level 3 Est. Patient 18:48:29 CDT Anthony Whitfield [facility] CPT-59440 Level 3 Est. Patient 12:16:59 CDT Gabriel Hunt DO [facility] CPT-24547 Level 3 Est. Patient 18:57:15 CDT Anthony Whitfield [facility] CPT-15964 Level 3 Est. Patient 13:59:22 PAINTING WORKER Ang Markham MD [facility] CPT-47443 Level 4 Est. Patient 10:36:08 PAINTING WORKER Ang Markham MD [facility] CPT-38091 Level 3 Est. Patient 16:27:02 CDT Eri Borges MD PhD [facility] CPT-86123 Level 3 Est. Patient 10:36:43 CDT Octaviano Dempsey [facility] CPT-32246 Level 4 New Patient 08:58:06 CDT Ang Markham MD [facility] Procedures Code Procedure Name Date Entry Date Standard Description CPT-42452 Venipuncture Draw Fee 12:25:15 CDT CPT-52255 Knee 3V 16:48:40 CDT CPT-OV Office Visit 16:27:13 CDT CPT-OV Office Visit 16:21:19 CDT CPT-50232 Sono pelvis non OB uterus ovaries cervix 09:37:28 CDT
--- OUTSIDE RECORDS SUMMARY | 2018-12-22 02:51 | XMS REPORT | Clinical Summary ---
Author Author Admin, ALEXANDER Organization [facility] Address Unknown Phone Unavailable Allergies, Adverse [...] involving lower leg Cystitis, acute 595.0 Resolved nAg Markham MD Acute cystitis UTI 599.0 Resolved [...] medical examination at a health care facility AMENORRHEA ICD-626.0 Inactive Eri Borges MD PhD [...] MD Amenorrhea ICD-626.0 Inactive Ang Markham MD Constipation ICD-564.00 Inactive Ang Markham MD DEPRESSION ICD-311 Inactive Ang Markham MD Medication List Medication Instructions Start Date Stop Date Generic Name NDC Status Provider Patient Instruction LIPITOR 40 MG TAB 1 po qHS ATORVASTATIN CALCIUM 98164687832 Active Ang Markham MD Active METFORMIN HCL 1000 MG TABS 1 tablet by mouth twice daily METFORMIN HCL 81787714139 Active Ang Markham MD Active CYCLOBENZAPRINE HCL 5 MG TABS 1 po qHS PRN Muscle pain CYCLOBENZAPRINE HCL 46639679984 Active Ang Markham MD Active MELOXICAM 15 MG TABS 1 po qd PRN Knee Pain MELOXICAM 77161905893 Active Ang Markham MD Active ZOLOFT 50 MG TAB 1 po qd SERTRALINE HCL 92154419849 Active Ang Markham MD Active COLACE 100 MG CAP 1 po BID PRN Constipation DOCUSATE SODIUM 82348796737 No Longer Active Ang Markham MD Active HYDROXYZINE HCL 25 MG TAB 1 TID PRN nerves HYDROXYZINE HCL 11074697941 Active Ang Markham MD Active IBUPROFEN 800 MG TABS 1 tab every 8 hours as needed for pain 2013 IBUPROFEN 84335625523 No Longer Active Ang Markham MD Active NITROFURANTOIN MACROCRYSTAL 100 MG CAPS 1 capsule PO bid x 7 days NITROFURANTOIN MACROCRYSTAL 66683389011 No Longer Active Ang Markham MD Active LEVEMIR FLEXPEN 100 UNIT/ML SOLN 40 units SC at bedtime INSULIN DETEMIR 71425697801 Active Ang Markham MD Active DIFLUCAN 150 MG TAB 1 qODay x 2 doses FLUCONAZOLE 32690137914 No Longer Active Da Nguyenl ROUTE RELIEF DRIVER Active CEFTIN 500 MG TAB 1 tablet by mouth twice daily for 7 days 07/24 CEFUROXIME AXETIL 76518695626 No Longer Active Anthony CARBONE Active ZOLPIDEM TARTRATE 10 MG TABS 1 tab PO at hs ZOLPIDEM TARTRATE 00422693966 Active Ang Markham MD Active ZOLOFT 50 MG TAB 1 tablet by mouth daily SERTRALINE HCL 33068741272 No Longer Active Anthony CARBONE Active ANUSOL-HC 2.5 % CREAM apply as needed HYDROCORTISONE (RECTAL) 12967676456 No Longer Active Anthony CARBONE Active COLACE 100 MG CAP 1 tab PO BID DOCUSATE SODIUM 65273846168 No Longer Active Anthony CARBONE Active TRINESSA (28) 0.18/0.215/0.25 MG-35 MCG TABS 1 po qd as directed NORGESTIM-ETH ESTRAD TRIPHASIC 73529066258 No Longer Active Anthony CARBONE Active [facility] MELATONIN 5 MG TABS 1-2 po qHS PRN Insomnia MELATONIN 70582002164 No Longer Active Anthony CARBONE Active NOVOLOG FLEXPEN 100 UNIT/ML SOPN Take 18 units TID with meals INSULIN ASPART 63527569362 Active Anthony CARBONE Active ACYCLOVIR 400 MG TABS ACYCLOVIR 09606119926 No Longer Active Ang Markham MD Active EMBRACE BLOOD GLUCOSE TEST STRP Test blood sugars 4 times daily and PRN 08/05 GLUCOSE BLOOD 32270053950 Active Ang Markham MD Active HYDROXYZINE HCL 25 MG TABS 1 tab PO tid PRN itching HYDROXYZINE HCL 11855426263 No Longer Active Ang Markham MD Active DIFLUCAN 150 MG TAB 1 qODay x 2 doses FLUCONAZOLE 78280140007 No Longer Active Da Romero APRN Active ACYCLOVIR 400 MG TABS 1 pill twice daily ACYCLOVIR 32169438742 No Longer Active Josephllina Nick GUTIERREZN Active AZITHROMYCIN 250 MG TABS 2 po qd x 1 day, then 1 po qd x 4 days AZITHROMYCIN 37363109617 No Longer Active Eri Borges MD PhD Active AZITHROMYCIN 250 MG TABS take 2 po day 1 then take1 po days 2-5 AZITHROMYCIN 48842340723 No Longer Active Octaviano CARBONE Active ACYCLOVIR 400 MG TABS 1 po qd ACYCLOVIR 74237786805 No Longer Active Ang Markham MD Active PROZAC 40 MG CAPS 1 cap by mouth at bedtime FLUOXETINE HCL 08736767549 No Longer Active Ang Markham MD Active HYDROXYZINE HCL 25 MG TABS 1 tab PO tid PRN itching HYDROXYZINE HCL 25 MG TABS 533746 HYDROXYZINE HCL Inactive [facility] MELATONIN 5 MG TABS 1-2 po qHS PRN Insomnia [facility] MELATONIN 5 MG TABS 541140 MELATONIN Inactive TRINESSA (28) 0.18/0.215/0.25 MG-35 MCG TABS 1 po qd as directed TRINESSA (28) 0.18/0.215/0.25 MG-35 MCG TABS 246826 NORGESTIM-ETH ESTRAD TRIPHASIC Inactive COLACE 100 MG CAP 1 tab PO BID COLACE 100 MG CAP 5917930 DOCUSATE SODIUM Inactive ANUSOL-HC 2.5 % CREAM apply as needed ANUSOL-HC 2.5 % CREAM 276503 HYDROCORTISONE (RECTAL) Inactive ZOLOFT 50 MG TAB 1 tablet by mouth daily ZOLOFT 50 MG TAB 041395 SERTRALINE HCL Inactive CEFTIN 500 MG TAB 1 tablet by mouth twice daily for 7 days 07/24 CEFTIN 500 MG TAB 037975 CEFUROXIME AXETIL Inactive NITROFURANTOIN MACROCRYSTAL 100 MG CAPS 1 capsule PO bid x 7 days NITROFURANTOIN MACROCRYSTAL 100 MG CAPS 692805 NITROFURANTOIN MACROCRYSTAL Inactive IBUPROFEN 800 MG TABS 1 tab every 8 hours as needed for pain 2013 IBUPROFEN 800 MG TABS 917016 IBUPROFEN Inactive COLACE 100 MG CAP 1 po BID PRN Constipation COLACE 100 MG CAP 6308951 DOCUSATE SODIUM Inactive ACYCLOVIR 400 MG TABS 1 po qd ACYCLOVIR 400 MG TABS 19720928 ACYCLOVIR Inactive AZITHROMYCIN 250 MG TABS take 2 po day 1 then take1 po days 2-5 AZITHROMYCIN 250 MG TABS 4552763 AZITHROMYCIN Inactive AZITHROMYCIN 250 MG TABS 2 po qd x 1 day, then 1 po qd x 4 days AZITHROMYCIN 250 MG TABS 1503044 AZITHROMYCIN Inactive ACYCLOVIR 400 MG TABS 1 pill twice daily ACYCLOVIR 400 MG TABS 19720928 ACYCLOVIR Inactive DIFLUCAN 150 MG TAB 1 qODay x 2 doses DIFLUCAN 150 MG TAB 600144 FLUCONAZOLE Inactive ACYCLOVIR 400 MG TABS ACYCLOVIR 400 MG TABS 315749 ACYCLOVIR Inactive DIFLUCAN 150 MG TAB 1 qODay x 2 doses DIFLUCAN 150 MG TAB 767708 FLUCONAZOLE Inactive Advance Directives Directive Description Start [...] BA1C - Chemistry sodium, serum 131 mmol/L 249-146 8423/10/27 potassium, serum 4.8 mmol/L 3.5-5.2 chloride, serum [...] HGBA1C - Chemistry sodium, serum 139 mmol/L 549-627 8578/02/03 potassium, serum 4.4 mmol/L 3.5-5.2 chloride, serum 98 mmol/L 98-107 carbon dioxide, venous blood 31.5 mmol/L 21.0-32.0 blood glucose 304 mg/dL 65-110 urea nitrogen, blood 10 mg/dL 7-18 creatinine, serum 0.80 mg/dL 0.60-1.30 alanine aminotransferase (SGPT), serum 23 U/L 12-78 aspartate aminotransferase (SGOT), serum 16 U/L 15-37 calcium, serum 9.4 mg/dL 8.5-10.1 bilirubin, serum, total 0.20 mg/dL 0.00-1.00 cholesterol, serum 309 mg/dL 551-204 6150/02/03 triglyceride, serum, fasting 277 mg/dL 30-200 HDL [...] 273 10^3/MM^3 10*3/mm3 142-424 Lab Report: Chlamydia/GC APTIMA/[id number] - Lab chlamydia DNA probe NOT DETECTED NOT DETECTED Lab Report: Chlamydia/GC APTIMA/00876 - Microbiology Neisseria gonorrhoeae DNA probe NOT [...] Negative Encounters Code Encounter Date Provider Facility CPT-75607 Level 4 Est. Patient 13:53:06 SUMMER INTERN Ang Markham MD [facility] CPT-70474 Level 3 Est. Patient 08:58:08 SUMMER INTERN Ang Markham MD [facility] CPT-40462 Level 3 Est. Patient 18:48:29 CDT Anthony Whitfield [facility] CPT-34410 Level 3 Est. Patient 12:16:59 CDT Gabriel Hunt DO [facility] CPT-73690 Level 3 Est. Patient 18:57:15 CDT Anthony Whitfield [facility] CPT-59452 Level 3 Est. Patient 13:59:22 SUMMER INTERN Ang Markham MD [facility] CPT-91815 Level 4 Est. Patient 10:36:08 SUMMER INTERN Ang Markham MD [facility] CPT-19011 Level 3 Est. Patient 16:27:02 CDT Eri Borges MD PhD [facility] CPT-69601 Level 3 Est. Patient 10:36:43 CDT Octaviano Dempsey [facility] CPT-93059 Level 4 New Patient 08:58:06 CDT Ang Markham MD [facility] Procedures Code Procedure Name Date Entry Date Standard Description CPT-43756 Venipuncture Draw Fee 12:25:15 CDT CPT-87620 Knee 3V 16:48:40 CDT CPT-OV Office Visit 16:27:13 CDT CPT-OV Office Visit 16:21:19 CDT CPT-29884 Sono pelvis non OB uterus ovaries cervix 09:37:28 CDT
--- OUTSIDE RECORDS SUMMARY | 2018-12-22 02:52 | XMS REPORT ---
Author Author [facility] Medical Staff Organization [facility] Address [address] [place] [id number] Phone [phone] Care Team Providers Care Cleaner Operator Name Role Phone ALMAS HAWLEY MD PP [phone] Summary purpose TRANSITION OF CARE AUTO GENERATION Chief Complaint and Reason for Visit Admit Diagnosis 1 REDNESS/DISCHARGE OF EYE Problem list No authorized problems tracked for [...] Code Type Description Date Performed Performing Physician 92039 CPT-4 EMERGENCY DEPT VISIT 10-24-2014 ORLIN CARLSON 01040 CPT-4 EMERGENCY DEPT VISIT 10-24-2014 ORLIN CARLSON Functional status Functional Status Finding Observation Time Abdomen Appearance obese :44 Abdomen soft :44 Bowel Sounds present :44 Urination normal :44 Quality sym/unlabored :44 Cough absent :44 Secretions no :44 Breath Sounds RUL clear :44 Breath Sounds RML clear :44 Breath Sounds RLL clear :44 Breath Sounds RITESH clear :44 Breath Sounds LLL clear :44 Airway natural :44 Chest Tube no :44 Oxygen no :39 Temp >100.4 no 91-54-911188:44 Temp <96.8 no :44 Chills with rigors no :44 HR > 90bpm yes :44 Respirations > 20 no :44 Systolic <90 no :44 headache stiff neck no :44 Rapid Resp no :44 Nursing Note Discharge instructions reviewed-verbalized understanding. VS obtained, dc in good condition and ambulatory. :39 Vital signs Type Value Date Respiration Rate 18breaths per minute :39 Pulse 98beats per minute :39 Oxygen Saturation 100% :39 BP Systolic 120mmHg :39 BP Diastolic 82mmHg :39 Temperature 98.2F :39 Height 63inches :39 Weight 135.2LB :39 Social history Type Value Smoking Status CURRENT EVERY DAY SMOKER Treatment Plan No treatment plan text is available for this visit. Hospital discharge instructions Dismissal Condition good Disposition on DC home DC Inst/Educ Give yes Med/Side Effects Rev yes Flu Vac none Tetanus Vac not current
--- OUTSIDE RECORDS SUMMARY | 2018-12-22 02:52 | XMS REPORT | Clinical Summary ---
Author Author Admin, ALEXANDER Organization [facility] Address Unknown Phone Unavailable Allergies, Adverse [...] MG TAB 1 po qHS ATORVASTATIN CALCIUM 09431421719 Active Ang Markham MD Active METFORMIN HCL 1000 MG TABS 1 tablet by mouth twice daily METFORMIN HCL 37852167165 Active Ang Markham MD Active CYCLOBENZAPRINE HCL 5 MG TABS 1 po qHS PRN Muscle pain CYCLOBENZAPRINE HCL 79880704331 Active Ang Markham MD Active MELOXICAM 15 MG TABS 1 po qd PRN Knee Pain MELOXICAM 85157781103 Active Ang Markham MD Active ZOLOFT 50 MG TAB 1 po qd SERTRALINE HCL 42172365917 Active Ang Markham MD Active COLACE 100 MG CAP 1 po BID PRN Constipation DOCUSATE SODIUM 08613839037 No Longer Active Ang Markham MD Active HYDROXYZINE HCL 25 MG TAB 1 TID PRN nerves HYDROXYZINE HCL 76686060525 Active Ang Markham MD Active IBUPROFEN 800 MG TABS 1 tab every 8 hours as needed for pain 2013 IBUPROFEN 07478084302 No Longer Active Ang Markham MD Active NITROFURANTOIN MACROCRYSTAL 100 MG CAPS 1 capsule PO bid x 7 days NITROFURANTOIN MACROCRYSTAL 78979363471 No Longer Active Ang Markham MD Active LEVEMIR FLEXPEN 100 UNIT/ML SOLN 40 units SC at bedtime INSULIN DETEMIR 90264262673 Active Ang Markham MD Active DIFLUCAN 150 MG TAB 1 qODay x 2 doses FLUCONAZOLE 56661901475 No Longer Active Da Nguyenl LABOR CONTRACT 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 Active CEFTIN 500 MG TAB 1 tablet by mouth twice daily for 7 days 07/24 CEFUROXIME AXETIL 10571787996 No Longer Active Anthony CARBONE Active ZOLPIDEM TARTRATE 10 MG TABS 1 tab PO at hs ZOLPIDEM TARTRATE 58173523021 Active Ang Markham MD Active ZOLOFT 50 MG TAB 1 tablet by mouth daily SERTRALINE HCL 29141809190 No Longer Active Anthony CARBONE Active ANUSOL-HC 2.5 % CREAM apply as needed HYDROCORTISONE (RECTAL) 73905311340 No Longer Active Anthony CARBONE Active COLACE 100 MG CAP 1 tab PO BID DOCUSATE SODIUM 80576654950 No Longer Active Anthony CARBONE Active TRINESSA (28) 0.18/0.215/0.25 MG-35 MCG TABS 1 po qd as directed NORGESTIM-ETH ESTRAD TRIPHASIC 46717796158 No Longer Active Anthony CARBONE Active [facility] MELATONIN 5 MG TABS 1-2 po qHS PRN Insomnia MELATONIN 55491685501 No Longer Active Anthony CARBONE Active NOVOLOG FLEXPEN 100 UNIT/ML SOPN Take 18 units TID with meals INSULIN ASPART 63244731787 Active Anthony CARBONE Active ACYCLOVIR 400 MG TABS ACYCLOVIR 35574014835 No Longer Active Ang Markham MD Active EMBRACE BLOOD GLUCOSE TEST STRP Test blood sugars 4 times daily and PRN 08/05 GLUCOSE BLOOD 66517525487 Active Ang Markham MD Active HYDROXYZINE HCL 25 MG TABS 1 tab PO tid PRN itching HYDROXYZINE HCL 79640898965 No Longer Active Ang Markham MD Active DIFLUCAN 150 MG TAB 1 qODay x 2 doses FLUCONAZOLE 88230479150 No Longer Active Da Romero APRN Active ACYCLOVIR 400 MG TABS 1 pill twice daily ACYCLOVIR 04198831992 No Longer Active Josephllina Nick GUTIERREZN Active AZITHROMYCIN 250 MG TABS 2 po qd x 1 day, then 1 po qd x 4 days AZITHROMYCIN 18215368847 No Longer Active Eri Borges MD PhD Active AZITHROMYCIN 250 MG TABS take 2 po day 1 then take1 po days 2-5 AZITHROMYCIN 33497990311 No Longer Active Octaviano CARBONE Active ACYCLOVIR 400 MG TABS 1 po qd ACYCLOVIR 23760920889 No Longer Active Ang Markham MD Active PROZAC 40 MG CAPS 1 cap by mouth at bedtime FLUOXETINE HCL 08587798902 No Longer Active Ang Markham MD Active HYDROXYZINE HCL 25 MG TABS 1 tab PO tid PRN itching HYDROXYZINE HCL 25 MG TABS 457495 HYDROXYZINE HCL Inactive [facility] MELATONIN 5 MG TABS 1-2 po qHS PRN Insomnia [facility] MELATONIN 5 MG TABS 595454 MELATONIN Inactive TRINESSA (28) 0.18/0.215/0.25 MG-35 MCG TABS 1 po qd as directed TRINESSA (28) 0.18/0.215/0.25 MG-35 MCG TABS 262542 NORGESTIM-ETH ESTRAD TRIPHASIC Inactive COLACE 100 MG CAP 1 tab PO BID COLACE 100 MG CAP 1588224 DOCUSATE SODIUM Inactive ANUSOL-HC 2.5 % CREAM apply as needed ANUSOL-HC 2.5 % CREAM 361812 HYDROCORTISONE (RECTAL) Inactive ZOLOFT 50 MG TAB 1 tablet by mouth daily ZOLOFT 50 MG TAB 514762 SERTRALINE HCL Inactive CEFTIN 500 MG TAB 1 tablet by mouth twice daily for 7 days 07/24 CEFTIN 500 MG TAB 879015 CEFUROXIME AXETIL Inactive NITROFURANTOIN MACROCRYSTAL 100 MG CAPS 1 capsule PO bid x 7 days NITROFURANTOIN MACROCRYSTAL 100 MG CAPS 386792 NITROFURANTOIN MACROCRYSTAL Inactive IBUPROFEN 800 MG TABS 1 tab every 8 hours as needed for pain 2013 IBUPROFEN 800 MG TABS 743642 IBUPROFEN Inactive COLACE 100 MG CAP 1 po BID PRN Constipation COLACE 100 MG CAP 7003564 DOCUSATE SODIUM Inactive ACYCLOVIR 400 MG TABS 1 po qd ACYCLOVIR 400 MG TABS 19720928 ACYCLOVIR Inactive AZITHROMYCIN 250 MG TABS take 2 po day 1 then take1 po days 2-5 AZITHROMYCIN 250 MG TABS 3314156 AZITHROMYCIN Inactive AZITHROMYCIN 250 MG TABS 2 po qd x 1 day, then 1 po qd x 4 days AZITHROMYCIN 250 MG TABS 7896647 AZITHROMYCIN Inactive ACYCLOVIR 400 MG TABS 1 pill twice daily ACYCLOVIR 400 MG TABS 19720928 ACYCLOVIR Inactive DIFLUCAN 150 MG TAB 1 qODay x 2 doses DIFLUCAN 150 MG TAB 482273 FLUCONAZOLE Inactive ACYCLOVIR 400 MG TABS ACYCLOVIR 400 MG TABS 528563 ACYCLOVIR Inactive DIFLUCAN 150 MG TAB 1 qODay x 2 doses DIFLUCAN 150 MG TAB 844491 FLUCONAZOLE Inactive Advance Directives Directive Description Start [...] BA1C - Chemistry sodium, serum 131 mmol/L 697-725 7857/10/27 potassium, serum 4.8 mmol/L 3.5-5.2 chloride, serum [...] HGBA1C - Chemistry sodium, serum 139 mmol/L 196-824 3641/02/03 potassium, serum 4.4 mmol/L 3.5-5.2 chloride, serum 98 mmol/L 98-107 carbon dioxide, venous blood 31.5 mmol/L 21.0-32.0 blood glucose 304 mg/dL 65-110 urea nitrogen, blood 10 mg/dL 7-18 creatinine, serum 0.80 mg/dL 0.60-1.30 alanine aminotransferase (SGPT), serum 23 U/L 12-78 aspartate aminotransferase (SGOT), serum 16 U/L 15-37 calcium, serum 9.4 mg/dL 8.5-10.1 bilirubin, serum, total 0.20 mg/dL 0.00-1.00 cholesterol, serum 309 mg/dL 082-642 7282/02/03 triglyceride, serum, fasting 277 mg/dL 30-200 HDL [...] 273 10^3/MM^3 10*3/mm3 142-424 Lab Report: Chlamydia/GC APTIMA/[id number] - Lab chlamydia DNA probe NOT DETECTED NOT DETECTED Lab Report: Chlamydia/GC APTIMA/[id number] - Microbiology Neisseria gonorrhoeae DNA probe NOT [...] Negative Encounters Code Encounter Date Provider Facility CPT-39576 Level 4 Est. Patient 13:53:06 WEB CONSULTANT Ang Markham MD [facility] CPT-47646 Level 3 Est. Patient 08:58:08 WEB CONSULTANT Ang Markham MD [facility] CPT-21799 Level 3 Est. Patient 18:48:29 CDT Anthony Whitfield [facility] CPT-90069 Level 3 Est. Patient 12:16:59 CDT Gabriel Hunt DO [facility] CPT-42483 Level 3 Est. Patient 18:57:15 CDT Anthony Whitfield [facility] CPT-43117 Level 3 Est. Patient 13:59:22 WEB CONSULTANT Ang Markham MD [facility] CPT-89476 Level 4 Est. Patient 10:36:08 WEB CONSULTANT Ang Markham MD [facility] CPT-44658 Level 3 Est. Patient 16:27:02 CDT Eri Borges MD PhD [facility] CPT-39448 Level 3 Est. Patient 10:36:43 CDT Octaviano Dempsey [facility] CPT-31933 Level 4 New Patient 08:58:06 CDT Ang Markham MD [facility] Procedures Code Procedure Name Date Entry Date Standard Description CPT-82664 Venipuncture Draw Fee 12:25:15 CDT CPT-38115 Knee 3V 16:48:40 CDT CPT-OV Office Visit 16:27:13 CDT CPT-OV Office Visit 16:21:19 CDT CPT-30670 Sono pelvis non OB uterus ovaries cervix 09:37:28 CDT
--- OUTSIDE RECORDS SUMMARY | 2018-12-22 02:53 | XMS REPORT | Clinical Summary ---
Author Author Admin, ALEXANDER Organization [facility] Address Unknown Phone Unavailable Allergies, Adverse Reactions, [...] MG TAB 1 po qHS ATORVASTATIN CALCIUM 91206511139 Active Ang Markham MD Active METFORMIN HCL 1000 MG TABS 1 tablet by mouth twice daily METFORMIN HCL 93229859726 Active Ang Markham MD Active CYCLOBENZAPRINE HCL 5 MG TABS 1 po qHS PRN Muscle pain CYCLOBENZAPRINE HCL 66041343431 Active Ang Markham MD Active MELOXICAM 15 MG TABS 1 po qd PRN Knee Pain MELOXICAM 38491097398 Active Ang Markham MD Active ZOLOFT 50 MG TAB 1 po qd SERTRALINE HCL 64391818544 Active Ang Markham MD Active COLACE 100 MG CAP 1 po BID PRN Constipation DOCUSATE SODIUM 56267865731 No Longer Active Ang Markham MD Active HYDROXYZINE HCL 25 MG TAB 1 TID PRN nerves HYDROXYZINE HCL 28066036726 Active Ang Markham MD Active IBUPROFEN 800 MG TABS 1 tab every 8 hours as needed for pain 2013 IBUPROFEN 51079002042 No Longer Active Ang Markham MD Active NITROFURANTOIN MACROCRYSTAL 100 MG CAPS 1 capsule PO bid x 7 days NITROFURANTOIN MACROCRYSTAL 75541324252 No Longer Active Ang Markham MD Active LEVEMIR FLEXPEN 100 UNIT/ML SOLN 40 units SC at bedtime INSULIN DETEMIR 31504986763 Active Ang Markham MD Active DIFLUCAN 150 MG TAB 1 qODay x 2 doses FLUCONAZOLE 37499510552 No Longer Active Da Nguyenl BOTANY PROFESSOR Active CEFTIN 500 MG TAB 1 tablet by mouth twice daily for 7 days 07/24 CEFUROXIME AXETIL 80170012285 No Longer Active Anthony CARBONE Active ZOLPIDEM TARTRATE 10 MG TABS 1 tab PO at hs ZOLPIDEM TARTRATE 86128163313 Active Ang Markham MD Active ZOLOFT 50 MG TAB 1 tablet by mouth daily SERTRALINE HCL 40730748483 No Longer Active Anthony CARBONE Active ANUSOL-HC 2.5 % CREAM apply as needed HYDROCORTISONE (RECTAL) 98888114321 No Longer Active Anthony CARBONE Active COLACE 100 MG CAP 1 tab PO BID DOCUSATE SODIUM 54804959693 No Longer Active Anthony CARBONE Active TRINESSA (28) 0.18/0.215/0.25 MG-35 MCG TABS 1 po qd as directed NORGESTIM-ETH ESTRAD TRIPHASIC 72112179780 No Longer Active Anthony CARBONE Active [facility] MELAT[facility] 5 MG TABS 1-2 po qHS PRN Insomnia MELATONIN 81796724615 No Longer Active Anthony CARBONE Active NOVOLOG FLEXPEN 100 UNIT/ML SOPN Take 18 units TID with meals INSULIN ASPART 70694559456 Active Anthony CARBONE Active ACYCLOVIR 400 MG TABS ACYCLOVIR 07507567112 No Longer Active Ang Markham MD Active EMBRACE BLOOD GLUCOSE TEST STRP Test blood sugars 4 times daily and PRN 08/05 GLUCOSE BLOOD 07676978418 Active Ang Markham MD Active HYDROXYZINE HCL 25 MG TABS 1 tab PO tid PRN itching HYDROXYZINE HCL 54918633252 No Longer Active Ang Markham MD Active DIFLUCAN 150 MG TAB 1 qODay x 2 doses FLUCONAZOLE 61411895627 No Longer Active Da Romero APRN Active ACYCLOVIR 400 MG TABS 1 pill twice daily ACYCLOVIR 28327218816 No Longer Active Josephllina Nick GUTIERREZN Active AZITHROMYCIN 250 MG TABS 2 po qd x 1 day, then 1 po qd x 4 days AZITHROMYCIN 50168801846 No Longer Active Eri Borges MD PhD Active AZITHROMYCIN 250 MG TABS take 2 po day 1 then take1 po days 2-5 AZITHROMYCIN 73748513821 No Longer Active Octaviano CARBONE Active ACYCLOVIR 400 MG TABS 1 po qd ACYCLOVIR 65179791965 No Longer Active Ang Markham MD Active PROZAC 40 MG CAPS 1 cap by mouth at bedtime FLUOXETINE HCL 03985918449 No Longer Active Ang Markham MD Active HYDROXYZINE HCL 25 MG TABS 1 tab PO tid PRN itching HYDROXYZINE HCL 25 MG TABS 927810 HYDROXYZINE HCL Inactive [facility] MELAT[facility]IN 5 MG TABS 1-2 po qHS PRN Insomnia [facility] MELATONIN 5 MG TABS 368537 MELATONIN Inactive TRINESSA (28) 0.18/0.215/0.25 MG-35 MCG TABS 1 po qd as directed TRINESSA (28) 0.18/0.215/0.25 MG-35 MCG TABS 234720 NORGESTIM-ETH ESTRAD TRIPHASIC Inactive COLACE 100 MG CAP 1 tab PO BID COLACE 100 MG CAP 6275029 DOCUSATE SODIUM Inactive ANUSOL-HC 2.5 % CREAM apply as needed ANUSOL-HC 2.5 % CREAM 799879 HYDROCORTISONE (RECTAL) Inactive ZOLOFT 50 MG TAB 1 tablet by mouth daily ZOLOFT 50 MG TAB 980503 SERTRALINE HCL Inactive CEFTIN 500 MG TAB 1 tablet by mouth twice daily for 7 days 07/24 CEFTIN 500 MG TAB 973396 CEFUROXIME AXETIL Inactive NITROFURANTOIN MACROCRYSTAL 100 MG CAPS 1 capsule PO bid x 7 days NITROFURANTOIN MACROCRYSTAL 100 MG CAPS 804655 NITROFURANTOIN MACROCRYSTAL Inactive IBUPROFEN 800 MG TABS 1 tab every 8 hours as needed for pain 2013 IBUPROFEN 800 MG TABS 656049 IBUPROFEN Inactive COLACE 100 MG CAP 1 po BID PRN Constipation COLACE 100 MG CAP 8534790 DOCUSATE SODIUM Inactive ACYCLOVIR 400 MG TABS 1 po qd ACYCLOVIR 400 MG TABS 19720928 ACYCLOVIR Inactive AZITHROMYCIN 250 MG TABS take 2 po day 1 then take1 po days 2-5 AZITHROMYCIN 250 MG TABS 7446709 AZITHROMYCIN Inactive AZITHROMYCIN 250 MG TABS 2 po qd x 1 day, then 1 po qd x 4 days AZITHROMYCIN 250 MG TABS 1538813 AZITHROMYCIN Inactive ACYCLOVIR 400 MG TABS 1 pill twice daily ACYCLOVIR 400 MG TABS 19720928 ACYCLOVIR Inactive DIFLUCAN 150 MG TAB 1 qODay x 2 doses DIFLUCAN 150 MG TAB 603683 FLUCONAZOLE Inactive ACYCLOVIR 400 MG TABS ACYCLOVIR 400 MG TABS 238299 ACYCLOVIR Inactive DIFLUCAN 150 MG TAB 1 qODay x 2 doses DIFLUCAN 150 MG TAB 094841 FLUCONAZOLE Inactive Advance Directives Directive Description Start [...] BA1C - Chemistry sodium, serum 131 mmol/L 605-495 0440/10/27 potassium, serum 4.8 mmol/L 3.5-5.2 chloride, serum [...] HGBA1C - Chemistry sodium, serum 139 mmol/L 012-093 2091/02/03 potassium, serum 4.4 mmol/L 3.5-5.2 chloride, serum 98 mmol/L 98-107 carbon dioxide, venous blood 31.5 mmol/L 21.0-32.0 blood glucose 304 mg/dL 65-110 urea nitrogen, blood 10 mg/dL 7-18 creatinine, serum 0.80 mg/dL 0.60-1.30 alanine aminotransferase (SGPT), serum 23 U/L 12-78 aspartate aminotransferase (SGOT), serum 16 U/L 15-37 calcium, serum 9.4 mg/dL 8.5-10.1 bilirubin, serum, total 0.20 mg/dL 0.00-1.00 cholesterol, serum 309 mg/dL 586-317 8198/02/03 triglyceride, serum, fasting 277 mg/dL 30-200 HDL [...] 273 10^3/MM^3 10*3/mm3 142-424 Lab Report: Chlamydia/GC APTIMA/33743 - Lab chlamydia DNA probe NOT DETECTED NOT DETECTED Lab Report: Chlamydia/GC APTIMA/00607 - Microbiology Neisseria gonorrhoeae DNA probe NOT [...] Negative Encounters Code Encounter Date Provider Facility CPT-71559 Level 4 Est. Patient 13:53:06 CHILD CARE PROVIDER Ang Markham MD [facility] CPT-13741 Level 3 Est. Patient 08:58:08 CHILD CARE PROVIDER Ang Markham MD [facility] CPT-21206 Level 3 Est. Patient 18:48:29 CDT Anthony Whitfield [facility] CPT-65590 Level 3 Est. Patient 12:16:59 CDT Gabriel Hunt DO [facility] CPT-73545 Level 3 Est. Patient 18:57:15 CDT Anthony Whitfield [facility] CPT-31177 Level 3 Est. Patient 13:59:22 CHILD CARE PROVIDER Ang Markham MD [facility] CPT-95873 Level 4 Est. Patient 10:36:08 CHILD CARE PROVIDER Ang Markham MD [facility] CPT-15596 Level 3 Est. Patient 16:27:02 CDT Eri Borges MD PhD [facility] CPT-61585 Level 3 Est. Patient 10:36:43 CDT Octaviano Dempsey [facility] CPT-15663 Level 4 New Patient 08:58:06 CDT Ang Markham MD [facility] Procedures Code Procedure Name Date Entry Date Standard Description CPT-15962 Venipuncture Draw Fee 12:25:15 CDT CPT-66036 Knee 3V 16:48:40 CDT CPT-OV Office Visit 16:27:13 CDT CPT-OV Office Visit 16:21:19 CDT CPT-65800 Sono pelvis non OB uterus ovaries cervix 09:37:28 CDT
--- OUTSIDE RECORDS SUMMARY | 2018-12-22 02:53 | XMS REPORT ---
Author Author [facility] Staff Organization [facility] Address [address] [place], [place] [address] Phone [phone] Care Team Providers Care Tiltrotor Crew Chief Name Role Phone MARLEEN ROSALES, ALMAS PP [phone] Summary purpose TRANSITION OF CARE AUTO GENERATION [...] tests and/or laboratory data RESULTS Routine Urinalysis :15:00 Result Normal Range Units Color YELLOW Clarity Hazy Specific [place] 1.006 1.003-1.035 pH 6.0 4.5-8.0 Glucose 3+ Bilirubin NEGATIVE Ketones NEGATIVE Protein NEGATIVE Urobilinogen 0.2 0-0.2 E.U./dL Nitrites NEGATIVE Blood TRACE Leukocytes NEGATIVE WBCs 0-5 RBCs 10-20 Squamous Epithelial Few Bacteria Occasional Yeast 1+ Body Fluid :15:00 Result Normal Range Units pH 6.0 4.5-8.0 History of procedures No procedures recorded for [...]
--- OUTSIDE RECORDS SUMMARY | 2018-12-22 02:53 | XMS REPORT | Clinical Summary ---
Author Author Admin, ALEXANDER Organization [facility] Address Unknown Phone Unavailable Allergies, [...] MG TAB 1 po qHS ATORVASTATIN CALCIUM 88828574433 Active Ang Markham MD Active METFORMIN HCL 1000 MG TABS 1 tablet by mouth twice daily METFORMIN HCL 02725549541 Active Ang Markham MD Active CYCLOBENZAPRINE HCL 5 MG TABS 1 po qHS PRN Muscle pain CYCLOBENZAPRINE HCL 82321247873 Active Ang Markham MD Active MELOXICAM 15 MG TABS 1 po qd PRN Knee Pain MELOXICAM 13311099622 Active Ang Markham MD Active ZOLOFT 50 MG TAB 1 po qd SERTRALINE HCL 03862614485 Active Ang Markham MD Active COLACE 100 MG CAP 1 po BID PRN Constipation DOCUSATE SODIUM 57099672120 No Longer Active Ang Markham MD Active HYDROXYZINE HCL 25 MG TAB 1 TID PRN nerves HYDROXYZINE HCL 29726598949 Active Ang Markham MD Active IBUPROFEN 800 MG TABS 1 tab every 8 hours as needed for pain 2013 IBUPROFEN 18837078270 No Longer Active Ang Markham MD Active NITROFURANTOIN MACROCRYSTAL 100 MG CAPS 1 capsule PO bid x 7 days NITROFURANTOIN MACROCRYSTAL 21894600213 No Longer Active Ang Markham MD Active LEVEMIR FLEXPEN 100 UNIT/ML SOLN 40 units SC at bedtime INSULIN DETEMIR 79427475795 Active Ang Markham MD Active DIFLUCAN 150 MG TAB 1 qODay x 2 doses FLUCONAZOLE 63211586018 No Longer Active Da Nguyenl NIGHT MONITOR Active CEFTIN 500 MG TAB 1 tablet by mouth twice daily for 7 days 07/24 CEFUROXIME AXETIL 00189401722 No Longer Active Anthony CARBONE Active ZOLPIDEM TARTRATE 10 MG TABS 1 tab PO at hs ZOLPIDEM TARTRATE 34520064836 Active Ang Markham MD Active ZOLOFT 50 MG TAB 1 tablet by mouth daily SERTRALINE HCL 35563005752 No Longer Active Anthony CARBONE Active ANUSOL-HC 2.5 % CREAM apply as needed HYDROCORTISONE (RECTAL) 80768857769 No Longer Active Anthony CARBONE Active COLACE 100 MG CAP 1 tab PO BID DOCUSATE SODIUM 01986078896 No Longer Active Anthony CARBONE Active TRINESSA (28) 0.18/0.215/0.25 MG-35 MCG TABS 1 po qd as directed NORGESTIM-ETH ESTRAD TRIPHASIC 27100523507 No Longer Active Anthony CARBONE Active [facility] MELATONIN 5 MG TABS 1-2 po qHS PRN Insomnia MELATONIN 48293129831 No Longer Active Anthony CARBONE Active NOVOLOG FLEXPEN 100 UNIT/ML SOPN Take 18 units TID with meals INSULIN ASPART 07914917007 Active Anthony CARBONE Active ACYCLOVIR 400 MG TABS ACYCLOVIR 92922783486 No Longer Active Ang Markham MD Active EMBRACE BLOOD GLUCOSE TEST STRP Test blood sugars 4 times daily and PRN 08/05 GLUCOSE BLOOD 30872067084 Active Ang Markham MD Active HYDROXYZINE HCL 25 MG TABS 1 tab PO tid PRN itching HYDROXYZINE HCL 71979358077 No Longer Active Ang Markham MD Active DIFLUCAN 150 MG TAB 1 qODay x 2 doses FLUCONAZOLE 10661383197 No Longer Active Da Romero APRN Active ACYCLOVIR 400 MG TABS 1 pill twice daily ACYCLOVIR 23702282305 No Longer Active Josephllina Nick GUTIERREZN Active AZITHROMYCIN 250 MG TABS 2 po qd x 1 day, then 1 po qd x 4 days AZITHROMYCIN 92268684131 No Longer Active Eri Borges MD PhD Active AZITHROMYCIN 250 MG TABS take 2 po day 1 then take1 po days 2-5 AZITHROMYCIN 05139830585 No Longer Active Octaviano CARBONE Active ACYCLOVIR 400 MG TABS 1 po qd ACYCLOVIR 18830757327 No Longer Active Ang Markham MD Active PROZAC 40 MG CAPS 1 cap by mouth at bedtime FLUOXETINE HCL 52246285384 No Longer Active Ang Markham MD Active HYDROXYZINE HCL 25 MG TABS 1 tab PO tid PRN itching HYDROXYZINE HCL 25 MG TABS 503090 HYDROXYZINE HCL Inactive [facility] MELATONIN 5 MG TABS 1-2 po qHS PRN Insomnia [facility] MELATONIN 5 MG TABS 390078 MELATONIN Inactive TRINESSA (28) 0.18/0.215/0.25 MG-35 MCG TABS 1 po qd as directed TRINESSA (28) 0.18/0.215/0.25 MG-35 MCG TABS 918617 NORGESTIM-ETH ESTRAD TRIPHASIC Inactive COLACE 100 MG CAP 1 tab PO BID COLACE 100 MG CAP 9660566 DOCUSATE SODIUM Inactive ANUSOL-HC 2.5 % CREAM apply as needed ANUSOL-HC 2.5 % CREAM 740268 HYDROCORTISONE (RECTAL) Inactive ZOLOFT 50 MG TAB 1 tablet by mouth daily ZOLOFT 50 MG TAB 173200 SERTRALINE HCL Inactive CEFTIN 500 MG TAB 1 tablet by mouth twice daily for 7 days 07/24 CEFTIN 500 MG TAB 916068 CEFUROXIME AXETIL Inactive NITROFURANTOIN MACROCRYSTAL 100 MG CAPS 1 capsule PO bid x 7 days NITROFURANTOIN MACROCRYSTAL 100 MG CAPS 252277 NITROFURANTOIN MACROCRYSTAL Inactive IBUPROFEN 800 MG TABS 1 tab every 8 hours as needed for pain 2013 IBUPROFEN 800 MG TABS 010860 IBUPROFEN Inactive COLACE 100 MG CAP 1 po BID PRN Constipation COLACE 100 MG CAP 2131520 DOCUSATE SODIUM Inactive ACYCLOVIR 400 MG TABS 1 po qd ACYCLOVIR 400 MG TABS 19720928 ACYCLOVIR Inactive AZITHROMYCIN 250 MG TABS take 2 po day 1 then take1 po days 2-5 AZITHROMYCIN 250 MG TABS 7582174 AZITHROMYCIN Inactive AZITHROMYCIN 250 MG TABS 2 po qd x 1 day, then 1 po qd x 4 days AZITHROMYCIN 250 MG TABS 3342195 AZITHROMYCIN Inactive ACYCLOVIR 400 MG TABS 1 pill twice daily ACYCLOVIR 400 MG TABS 19720928 ACYCLOVIR Inactive DIFLUCAN 150 MG TAB 1 qODay x 2 doses DIFLUCAN 150 MG TAB 458805 FLUCONAZOLE Inactive ACYCLOVIR 400 MG TABS ACYCLOVIR 400 MG TABS 293587 ACYCLOVIR Inactive DIFLUCAN 150 MG TAB 1 qODay x 2 doses DIFLUCAN 150 MG TAB 860522 FLUCONAZOLE Inactive Advance Directives Directive Description Start [...] BA1C - Chemistry sodium, serum 131 mmol/L 761-621 4372/10/27 potassium, serum 4.8 mmol/L 3.5-5.2 chloride, serum [...] HGBA1C - Chemistry sodium, serum 139 mmol/L 326-438 8341/02/03 potassium, serum 4.4 mmol/L 3.5-5.2 chloride, serum 98 mmol/L 98-107 carbon dioxide, venous blood 31.5 mmol/L 21.0-32.0 blood glucose 304 mg/dL 65-110 urea nitrogen, blood 10 mg/dL 7-18 creatinine, serum 0.80 mg/dL 0.60-1.30 alanine aminotransferase (SGPT), serum 23 U/L 12-78 aspartate aminotransferase (SGOT), serum 16 U/L 15-37 calcium, serum 9.4 mg/dL 8.5-10.1 bilirubin, serum, total 0.20 mg/dL 0.00-1.00 cholesterol, serum 309 mg/dL 413-556 5820/02/03 triglyceride, serum, fasting 277 mg/dL 30-200 HDL [...] 273 10^3/MM^3 10*3/mm3 142-424 Lab Report: Chlamydia/GC APTIMA/80005 - Lab chlamydia DNA probe NOT DETECTED NOT DETECTED Lab Report: Chlamydia/GC APTIMA/57894 - Microbiology Neisseria gonorrhoeae DNA probe NOT [...] Negative Encounters Code Encounter Date Provider Facility CPT-93148 Level 4 Est. Patient 13:53:06 GREEN MATERIAL VALUE ADDED ASSESSOR Ang Markham MD [facility] CPT-55371 Level 3 Est. Patient 08:58:08 GREEN MATERIAL VALUE ADDED ASSESSOR Ang Markham MD [facility] CPT-67325 Level 3 Est. Patient 18:48:29 CDT Anthony Whitfield [facility] CPT-33178 Level 3 Est. Patient 12:16:59 CDT Gabriel Hunt DO [facility] CPT-29851 Level 3 Est. Patient 18:57:15 CDT Anthony Whitfield [facility] CPT-55421 Level 3 Est. Patient 13:59:22 GREEN MATERIAL VALUE ADDED ASSESSOR Ang Markham MD [facility] CPT-40334 Level 4 Est. Patient 10:36:08 GREEN MATERIAL VALUE ADDED ASSESSOR Ang Markham MD [facility] CPT-28498 Level 3 Est. Patient 16:27:02 CDT Eri Borges MD PhD [facility] CPT-55851 Level 3 Est. Patient 10:36:43 CDT Octaviano Dempsey [facility] CPT-88058 Level 4 New Patient 08:58:06 CDT Ang Markham MD [facility] Procedures Code Procedure Name Date Entry Date Standard Description CPT-67480 Venipuncture Draw Fee 12:25:15 CDT CPT-29063 Knee 3V 16:48:40 CDT CPT-OV Office Visit 16:27:13 CDT CPT-OV Office Visit 16:21:19 CDT CPT-20509 Sono pelvis non OB uterus ovaries cervix 09:37:28 CDT
--- OUTSIDE RECORDS SUMMARY | 2018-12-22 02:54 | XMS REPORT | Clinical Summary ---
Author Author Admin, ALEXANDER Organization [facility] Address Unknown Phone Unavailable Allergies, Adverse [...] MG TAB 1 po qHS ATORVASTATIN CALCIUM 54703038472 Active Ang Markham MD Active METFORMIN HCL 1000 MG TABS 1 tablet by mouth twice daily METFORMIN HCL 86142467025 Active Ang Markham MD Active CYCLOBENZAPRINE HCL 5 MG TABS 1 po qHS PRN Muscle pain CYCLOBENZAPRINE HCL 74170956478 Active Ang Markham MD Active MELOXICAM 15 MG TABS 1 po qd PRN Knee Pain MELOXICAM 52136464778 Active Ang Markham MD Active ZOLOFT 50 MG TAB 1 po qd SERTRALINE HCL 34595969062 Active Ang Markham MD Active COLACE 100 MG CAP 1 po BID PRN Constipation DOCUSATE SODIUM 96258232203 No Longer Active Ang Markham MD Active HYDROXYZINE HCL 25 MG TAB 1 TID PRN nerves HYDROXYZINE HCL 26778605698 Active Ang Markham MD Active IBUPROFEN 800 MG TABS 1 tab every 8 hours as needed for pain 2013 IBUPROFEN 23401039645 No Longer Active Ang Markham MD Active NITROFURANTOIN MACROCRYSTAL 100 MG CAPS 1 capsule PO bid x 7 days NITROFURANTOIN MACROCRYSTAL 43707100872 No Longer Active Ang Markham MD Active LEVEMIR FLEXPEN 100 UNIT/ML SOLN 40 units SC at bedtime INSULIN DETEMIR 35670482589 Active Ang Markham MD Active DIFLUCAN 150 MG TAB 1 qODay x 2 doses FLUCONAZOLE 70694360074 No Longer Active Da Nguyenl MD PEDIATRIC ALLERGIST Active CEFTIN 500 MG TAB 1 tablet by mouth twice daily for 7 days 07/24 CEFUROXIME AXETIL 67254803730 No Longer Active Anthony CARBONE Active ZOLPIDEM TARTRATE 10 MG TABS 1 tab PO at hs ZOLPIDEM TARTRATE 20468661347 Active Ang Markham MD Active ZOLOFT 50 MG TAB 1 tablet by mouth daily SERTRALINE HCL 11904654463 No Longer Active Anthony CARBONE Active ANUSOL-HC 2.5 % CREAM apply as needed HYDROCORTISONE (RECTAL) 45473514205 No Longer Active Anthony CARBONE Active COLACE 100 MG CAP 1 tab PO BID DOCUSATE SODIUM 31182840868 No Longer Active Anthony CARBONE Active TRINESSA (28) 0.18/0.215/0.25 MG-35 MCG TABS 1 po qd as directed NORGESTIM-ETH ESTRAD TRIPHASIC 04203520245 No Longer Active Anthony CARBONE Active [facility]ELAT[facility]IN 5 MG TABS 1-2 po qHS PRN Insomnia MELATONIN 77082684302 No Longer Active Anthony CARBONE Active NOVOLOG FLEXPEN 100 UNIT/ML SOPN Take 18 units TID with meals INSULIN ASPART 55982543918 Active Anthony CARBONE Active ACYCLOVIR 400 MG TABS ACYCLOVIR 10666514925 No Longer Active Ang Markham MD Active EMBRACE BLOOD GLUCOSE TEST STRP Test blood sugars 4 times daily and PRN 08/05 GLUCOSE BLOOD 06206673979 Active Ang Markham MD Active HYDROXYZINE HCL 25 MG TABS 1 tab PO tid PRN itching HYDROXYZINE HCL 83018259595 No Longer Active Ang Markham MD Active DIFLUCAN 150 MG TAB 1 qODay x 2 doses FLUCONAZOLE 79026032202 No Longer Active Da Romero APRN Active ACYCLOVIR 400 MG TABS 1 pill twice daily ACYCLOVIR 35506028964 No Longer Active Josephllina Nick GUTIERREZN Active AZITHROMYCIN 250 MG TABS 2 po qd x 1 day, then 1 po qd x 4 days AZITHROMYCIN 45817372761 No Longer Active Eri Borges MD PhD Active AZITHROMYCIN 250 MG TABS take 2 po day 1 then take1 po days 2-5 AZITHROMYCIN 78003080609 No Longer Active Octaviano CARBONE Active ACYCLOVIR 400 MG TABS 1 po qd ACYCLOVIR 60903388928 No Longer Active Ang Markham MD Active PROZAC 40 MG CAPS 1 cap by mouth at bedtime FLUOXETINE HCL 19689885740 No Longer Active Ang Markham MD Active HYDROXYZINE HCL 25 MG TABS 1 tab PO tid PRN itching HYDROXYZINE HCL 25 MG TABS 357646 HYDROXYZINE HCL Inactive [facility] MELATONIN 5 MG TABS 1-2 po qHS PRN Insomnia [facility] MELATONIN 5 MG TABS 607413 MELATONIN Inactive TRINESSA (28) 0.18/0.215/0.25 MG-35 MCG TABS 1 po qd as directed TRINESSA (28) 0.18/0.215/0.25 MG-35 MCG TABS 435204 NORGESTIM-ETH ESTRAD TRIPHASIC Inactive COLACE 100 MG CAP 1 tab PO BID COLACE 100 MG CAP 9616158 DOCUSATE SODIUM Inactive ANUSOL-HC 2.5 % CREAM apply as needed ANUSOL-HC 2.5 % CREAM 624650 HYDROCORTISONE (RECTAL) Inactive ZOLOFT 50 MG TAB 1 tablet by mouth daily ZOLOFT 50 MG TAB 276116 SERTRALINE HCL Inactive CEFTIN 500 MG TAB 1 tablet by mouth twice daily for 7 days 07/24 CEFTIN 500 MG TAB 530699 CEFUROXIME AXETIL Inactive NITROFURANTOIN MACROCRYSTAL 100 MG CAPS 1 capsule PO bid x 7 days NITROFURANTOIN MACROCRYSTAL 100 MG CAPS 513516 NITROFURANTOIN MACROCRYSTAL Inactive IBUPROFEN 800 MG TABS 1 tab every 8 hours as needed for pain 2013 IBUPROFEN 800 MG TABS 320947 IBUPROFEN Inactive COLACE 100 MG CAP 1 po BID PRN Constipation COLACE 100 MG CAP 5190107 DOCUSATE SODIUM Inactive ACYCLOVIR 400 MG TABS 1 po qd ACYCLOVIR 400 MG TABS 19720928 ACYCLOVIR Inactive AZITHROMYCIN 250 MG TABS take 2 po day 1 then take1 po days 2-5 AZITHROMYCIN 250 MG TABS 7813135 AZITHROMYCIN Inactive AZITHROMYCIN 250 MG TABS 2 po qd x 1 day, then 1 po qd x 4 days AZITHROMYCIN 250 MG TABS 9266801 AZITHROMYCIN Inactive ACYCLOVIR 400 MG TABS 1 pill twice daily ACYCLOVIR 400 MG TABS 19720928 ACYCLOVIR Inactive DIFLUCAN 150 MG TAB 1 qODay x 2 doses DIFLUCAN 150 MG TAB 235787 FLUCONAZOLE Inactive ACYCLOVIR 400 MG TABS ACYCLOVIR 400 MG TABS 160651 ACYCLOVIR Inactive DIFLUCAN 150 MG TAB 1 qODay x 2 doses DIFLUCAN 150 MG TAB 095011 FLUCONAZOLE Inactive Advance Directives Directive Description Start [...] BA1C - Chemistry sodium, serum 131 mmol/L 165-005 4330/10/27 potassium, serum 4.8 mmol/L 3.5-5.2 chloride, serum [...] HGBA1C - Chemistry sodium, serum 139 mmol/L 989-376 0917/02/03 potassium, serum 4.4 mmol/L 3.5-5.2 chloride, serum 98 mmol/L 98-107 carbon dioxide, venous blood 31.5 mmol/L 21.0-32.0 blood glucose 304 mg/dL 65-110 urea nitrogen, blood 10 mg/dL 7-18 creatinine, serum 0.80 mg/dL 0.60-1.30 alanine aminotransferase (SGPT), serum 23 U/L 12-78 aspartate aminotransferase (SGOT), serum 16 U/L 15-37 calcium, serum 9.4 mg/dL 8.5-10.1 bilirubin, serum, total 0.20 mg/dL 0.00-1.00 cholesterol, serum 309 mg/dL 261-623 4995/02/03 triglyceride, serum, fasting 277 mg/dL 30-200 HDL [...] 273 10^3/MM^3 10*3/mm3 142-424 Lab Report: Chlamydia/GC APTIMA/12856 - Lab chlamydia DNA probe NOT DETECTED NOT DETECTED Lab Report: Chlamydia/GC APTIMA/62591 - Microbiology Neisseria gonorrhoeae DNA probe NOT [...] Negative Encounters Code Encounter Date Provider Facility CPT-31262 Level 4 Est. Patient 13:53:06 SOLUTION ENGINEER Ang Markham MD [facility] CPT-00870 Level 3 Est. Patient 08:58:08 SOLUTION ENGINEER Ang Markham MD [facility] CPT-11963 Level 3 Est. Patient 18:48:29 CDT Anthony Whitfield [facility] CPT-86251 Level 3 Est. Patient 12:16:59 CDT Gabriel Hunt DO [facility] CPT-48254 Level 3 Est. Patient 18:57:15 CDT Anthony Whitfield [facility] CPT-52731 Level 3 Est. Patient 13:59:22 SOLUTION ENGINEER Ang Markham MD [facility] CPT-50273 Level 4 Est. Patient 10:36:08 SOLUTION ENGINEER Ang Markham MD [facility] CPT-23461 Level 3 Est. Patient 16:27:02 CDT Eri Borges MD PhD [facility] CPT-36800 Level 3 Est. Patient 10:36:43 CDT Octaviano Dempsey [facility] CPT-32560 Level 4 New Patient 08:58:06 CDT Ang Markham MD [facility] Procedures Code Procedure Name Date Entry Date Standard Description CPT-48117 Venipuncture Draw Fee 12:25:15 CDT CPT-57825 Knee 3V 16:48:40 CDT CPT-OV Office Visit 16:27:13 CDT CPT-OV Office Visit 16:21:19 CDT CPT-00803 Sono pelvis non OB uterus ovaries cervix 09:37:28 CDT
--- OUTSIDE RECORDS SUMMARY | 2018-12-22 02:55 | XMS REPORT | Clinical Summary ---
Author Author Admin, ALEXANDER Organization [facility] Address Unknown Phone Unavailable Allergies, Adverse Reactions, [...] 1 tab PO tid PRN CYCLOBENZAPRINE HCL 11508729303 Active Anthony CARBONE Active TRINESSA (28) 0.18/0.215/0.25 MG-35 MCG TABS 1 po qd as directed NORGESTIM-ETH ESTRAD TRIPHASIC 43388380180 No Longer Active Anthony CARBONE Active [facility] MELATONIN 5 MG TABS 1-2 po qHS PRN Insomnia MELATONIN 58526361112 No Longer Active Anthony CARBONE Active NOVOLOG FLEXPEN 100 UNIT/ML SOPN Take 18 units TID with meals INSULIN ASPART 01038085443 Active Rena Barnesum LPN RN HOSPICE Active ACYCLOVIR 400 MG TABS ACYCLOVIR 89103866710 No Longer Active Ang Markham MD Active LEVEMIR FLEXPEN 100 UNIT/ML SOLN 60 units SC at bedtime INSULIN DETEMIR 87290183266 Active Ang Markham MD Active EMBRACE BLOOD GLUCOSE TEST STRP Test blood sugars 4 times daily and PRN 08/05 GLUCOSE BLOOD 17087034093 Active Ang Markham MD Active ZOLOFT 50 MG TAB 1 tablet by mouth daily SERTRALINE HCL 67944402247 Active Ang Markham MD Active HYDROXYZINE HCL 25 MG TABS 1 tab PO tid PRN itching HYDROXYZINE HCL 55621539011 No Longer Active Ang Markham MD Active DIFLUCAN 150 MG TAB 1 qODay x 2 doses FLUCONAZOLE 64503857214 No Longer Active Josephllina Nick GREENSKEEPER SUPERVISOR Active COLACE 100 MG CAP 1 tab PO BID DOCUSATE SODIUM 78648347471 Active Jillina Franayal GREENSKEEPER SUPERVISOR Active ANUSOL-HC 2.5 % CREAM apply as needed HYDROCORTISONE (RECTAL) 06108414522 Active Jillina Frazell GREENSKEEPER SUPERVISOR Active ACYCLOVIR 400 MG TABS 1 pill twice daily ACYCLOVIR 16238941361 No Longer Active Josephllina Wendyl GREENSKEEPER SUPERVISOR Active AZITHROMYCIN 250 MG TABS 2 po qd x 1 day, then 1 po qd x 4 days AZITHROMYCIN 96184622200 No Longer Active Eri Borges MD PhD Active AZITHROMYCIN 250 MG TABS take 2 po day 1 then take1 po days 2-5 AZITHROMYCIN 17769167000 No Longer Active Octaviano CARBONE Active ACYCLOVIR 400 MG TABS 1 po qd ACYCLOVIR 67224064475 No Longer Active Ang Markham MD Active PROZAC 40 MG CAPS 1 cap by mouth at bedtime FLUOXETINE HCL 09734582571 No Longer Active Ang Markham MD Active METFORMIN HCL 1000 MG TABS 1 tablet by mouth twice daily METFORMIN HCL 43450251335 Active Ang Markham MD Active HYDROXYZINE HCL 25 MG TABS 1 tab PO tid PRN itching HYDROXYZINE HCL 25 MG TABS 136083 HYDROXYZINE HCL Inactive [facility]EL[facility]IN 5 MG TABS 1-2 po qHS PRN Insomnia [facility] MELATONIN 5 MG TABS 561421 MELATONIN Inactive TRINESSA (28) 0.18/0.215/0.25 MG-35 MCG TABS 1 po qd as directed TRINESSA (28) 0.18/0.215/0.25 MG-35 MCG TABS 870346 NORGESTIM-ETH ESTRAD TRIPHASIC Inactive ACYCLOVIR 400 MG TABS 1 po qd ACYCLOVIR 400 MG TABS 19720928 ACYCLOVIR Inactive AZITHROMYCIN 250 MG TABS take 2 po day 1 then take1 po days 2-5 AZITHROMYCIN 250 MG TABS 1183023 AZITHROMYCIN Inactive AZITHROMYCIN 250 MG TABS 2 po qd x 1 day, then 1 po qd x 4 days AZITHROMYCIN 250 MG TABS 2276744 AZITHROMYCIN Inactive ACYCLOVIR 400 MG TABS 1 pill twice daily ACYCLOVIR 400 MG TABS 19720928 ACYCLOVIR Inactive DIFLUCAN 150 MG TAB 1 qODay x 2 doses DIFLUCAN 150 MG TAB 083466 FLUCONAZOLE Inactive ACYCLOVIR 400 MG TABS ACYCLOVIR [...] mg/dL Encounters Code Encounter Date Provider Facility CPT-46742 Level 3 Est. Patient 13:59:22 AUTOMATION AND CONTROLS MANAGER Ang Markham MD [facility] CPT-26290 Level 4 Est. Patient 10:36:08 AUTOMATION AND CONTROLS MANAGER Ang Markham MD [facility] CPT-33995 Level 3 Est. Patient 16:27:02 CDT Eri Borges MD PhD [facility] CPT-94353 Level 3 Est. Patient 10:36:43 CDT Octaviano CARBONE [facility] CPT-01133 Level 4 New Patient 08:58:06 CDT Ang Markham MD [facility] Procedures Code Procedure Name Date Entry Date Standard Description CPT-33581 Knee 3V 16:48:40 CDT CPT-OV Office Visit 16:27:13 CDT CPT-OV Office Visit 16:21:19 CDT CPT-34209 Sono pelvis non OB uterus ovaries cervix 09:37:28 CDT
--- OUTSIDE RECORDS SUMMARY | 2018-12-22 02:55 | XMS REPORT | Clinical Summary ---
Author Author Admin, ALEXANDER Organization [facility] Address Unknown Phone Unavailable Allergies, Adverse [...] 60 units SC at bedtime INSULIN DETEMIR 52296197194 Active Anthony CARBONE Active CEFTIN 500 MG TAB 1 tablet by mouth twice daily for 7 days 07/24 CEFUROXIME AXETIL 57955634364 No Longer Active Anthony CARBONE Active NITROFURANTOIN MACROCRYSTAL 100 MG CAPS 1 capsule PO bid x 7 days NITROFURANTOIN MACROCRYSTAL 23123602281 Active Anthony CARBONE Active ZOLPIDEM TARTRATE 10 MG TABS 1 tab PO at hs ZOLPIDEM TARTRATE 96765629845 Active Anthony CARBONE Active ZOLOFT 50 MG TAB 1 tablet by mouth daily SERTRALINE HCL 29034445394 No Longer Active Anthony CARBONE Active ANUSOL-HC 2.5 % CREAM apply as needed HYDROCORTISONE (RECTAL) 43970248422 No Longer Active Anthony CARBONE Active COLACE 100 MG CAP 1 tab PO BID DOCUSATE SODIUM 25139104918 No Longer Active Anthony CARBONE Active CYCLOBENZAPRINE HCL 5 MG TABS 1/2 to 1 tab PO tid PRN CYCLOBENZAPRINE HCL 82986753537 Active Anthony CARBONE Active TRINESSA (28) 0.18/0.215/0.25 MG-35 MCG TABS 1 po qd as directed NORGESTIM-ETH ESTRAD TRIPHASIC 75392166988 No Longer Active Anthony CARBONE Active [facility] MELATONIN 5 MG TABS 1-2 po qHS PRN Insomnia MELATONIN 13032746849 No Longer Active Anthony CARBONE Active NOVOLOG FLEXPEN 100 UNIT/ML SOPN Take 18 units TID with meals INSULIN ASPART 59336659327 Active Anthony CARBONE Active ACYCLOVIR 400 MG TABS ACYCLOVIR 32667979002 No Longer Active Ang Markham MD Active EMBRACE BLOOD GLUCOSE TEST STRP Test blood sugars 4 times daily and PRN 08/05 GLUCOSE BLOOD 59318698324 Active Ang Markham MD Active HYDROXYZINE HCL 25 MG TABS 1 tab PO tid PRN itching HYDROXYZINE HCL 60838165918 No Longer Active Ang Markham MD Active DIFLUCAN 150 MG TAB 1 qODay x 2 doses FLUCONAZOLE 07003931770 No Longer Active Da Romero APRN Active ACYCLOVIR 400 MG TABS 1 pill twice daily ACYCLOVIR 42276835497 No Longer Active Da Romero APRN Active AZITHROMYCIN 250 MG TABS 2 po qd x 1 day, then 1 po qd x 4 days AZITHROMYCIN 12830783969 No Longer Active Eri Borges MD PhD Active AZITHROMYCIN 250 MG TABS take 2 po day 1 then take1 po days 2-5 AZITHROMYCIN 92005604335 No Longer Active Octaviano CARBONE Active ACYCLOVIR 400 MG TABS 1 po qd ACYCLOVIR 25115913562 No Longer Active Ang Markham MD Active PROZAC 40 MG CAPS 1 cap by mouth at bedtime FLUOXETINE HCL 28321427118 No Longer Active Ang Markham MD Active METFORMIN HCL 1000 MG TABS 1 tablet by mouth twice daily METFORMIN HCL 88969950848 Active Ang Markham MD Active HYDROXYZINE HCL 25 MG TABS 1 tab PO tid PRN itching HYDROXYZINE HCL 25 MG TABS 492503 HYDROXYZINE HCL Inactive [facility] MEL[facility]IN 5 MG TABS 1-2 po qHS PRN Insomnia [facility] MELATONIN 5 MG TABS 334187 MELATONIN Inactive TRINESSA (28) 0.18/0.215/0.25 MG-35 MCG TABS 1 po qd as directed TRINESSA (28) 0.18/0.215/0.25 MG-35 MCG TABS 432737 NORGESTIM-ETH ESTRAD TRIPHASIC Inactive COLACE 100 MG CAP 1 tab PO BID COLACE 100 MG CAP 2697486 DOCUSATE SODIUM Inactive ANUSOL-HC 2.5 % CREAM apply as needed ANUSOL-HC 2.5 % CREAM 881997 HYDROCORTISONE (RECTAL) Inactive ZOLOFT 50 MG TAB 1 tablet by mouth daily ZOLOFT 50 MG TAB 383462 SERTRALINE HCL Inactive CEFTIN 500 MG TAB 1 tablet by mouth twice daily for 7 days 07/24 CEFTIN 500 MG TAB 087363 CEFUROXIME AXETIL Inactive ACYCLOVIR 400 MG TABS 1 po qd ACYCLOVIR 400 MG TABS 794002 ACYCLOVIR Inactive AZITHROMYCIN 250 MG TABS take 2 po day 1 then take1 po days 2-5 AZITHROMYCIN 250 MG TABS 6921587 AZITHROMYCIN Inactive AZITHROMYCIN 250 MG TABS 2 po qd x 1 day, then 1 po qd x 4 days AZITHROMYCIN 250 MG TABS 2990388 AZITHROMYCIN Inactive ACYCLOVIR 400 MG TABS 1 pill twice daily ACYCLOVIR 400 MG TABS 19720928 ACYCLOVIR Inactive DIFLUCAN 150 MG TAB 1 qODay x 2 doses DIFLUCAN 150 MG TAB 532705 FLUCONAZOLE Inactive ACYCLOVIR 400 MG TABS ACYCLOVIR [...] mg/dL Encounters Code Encounter Date Provider Facility CPT-40602 Level 3 Est. Patient 12:16:59 CDT Gabriel Hunt DO [facility] CPT-03675 Level 3 Est. Patient 18:57:15 CDT Anthony CARBONE [facility] CPT-71398 Level 3 Est. Patient 13:59:22 AGRI BUSINESS AGENT Ang Markham MD [facility] CPT-01180 Level 4 Est. Patient 10:36:08 AGRI BUSINESS AGENT Ang Markham MD [facility] CPT-00538 Level 3 Est. Patient 16:27:02 CDT Eri Borges MD PhD [facility] CPT-30012 Level 3 Est. Patient 10:36:43 CDT Octaviano CARBONE [facility] CPT-37085 Level 4 New Patient 08:58:06 CDT Ang Markham MD [facility] Procedures Code Procedure Name Date Entry Date Standard Description CPT-66647 Venipuncture Draw Fee 12:25:15 CDT CPT-36708 Knee 3V 16:48:40 CDT CPT-OV Office Visit 16:27:13 CDT CPT-OV Office Visit 16:21:19 CDT CPT-14626 Sono pelvis non OB uterus ovaries cervix 09:37:28 CDT
--- OUTSIDE RECORDS SUMMARY | 2018-12-22 02:55 | XMS REPORT | Clinical Summary ---
Author Author Admin, ALEXANDER Organization [facility] Address Unknown Phone Unavailable Allergies, Adverse Reactions, [...] Generic Name NDC Status Provider Patient Instruction METFORMIN HCL 1000 MG TABS 1 tablet by mouth twice daily METFORMIN HCL 39365512661 Active Ang Markham MD Active CYCLOBENZAPRINE HCL 5 MG TABS 1 po qHS PRN Muscle pain CYCLOBENZAPRINE HCL 96491454681 Active Ang Markham MD Active MELOXICAM 15 MG TABS 1 po qd PRN Knee Pain MELOXICAM 37610888606 Active Ang Markham MD Active ZOLOFT 50 MG TAB 1 po qd SERTRALINE HCL 18347537843 Active Ang Markham MD Active COLACE 100 MG CAP 1 po BID PRN Constipation DOCUSATE SODIUM 75637577696 No Longer Active Ang Markham MD Active HYDROXYZINE HCL 25 MG TAB 1 TID PRN nerves HYDROXYZINE HCL 80089038848 Active Ang Markham MD Active IBUPROFEN 800 MG TABS 1 tab every 8 hours as needed for pain 2013 IBUPROFEN 82988158543 No Longer Active Ang Markham MD Active NITROFURANTOIN MACROCRYSTAL 100 MG CAPS 1 capsule PO bid x 7 days NITROFURANTOIN MACROCRYSTAL 80226445380 No Longer Active Ang Markham MD Active LEVEMIR FLEXPEN 100 UNIT/ML SOLN 40 units SC at bedtime INSULIN DETEMIR 53162604333 Active Agn Markham MD Active DIFLUCAN 150 MG TAB 1 qODay x 2 doses FLUCONAZOLE 30541246541 No Longer Active Da Romero DAYO Active CEFTIN 500 MG TAB 1 tablet by mouth twice daily for 7 days 07/24 CEFUROXIME AXETIL 03701310575 No Longer Active Anthony CARBONE Active ZOLPIDEM TARTRATE 10 MG TABS 1 tab PO at hs ZOLPIDEM TARTRATE 78668967774 Active Ang Markham MD Active ZOLOFT 50 MG TAB 1 tablet by mouth daily SERTRALINE HCL 49730382752 No Longer Active Anthony CARBONE Active ANUSOL-HC 2.5 % CREAM apply as needed HYDROCORTISONE (RECTAL) 48038543931 No Longer Active Anthony CARBONE Active COLACE 100 MG CAP 1 tab PO BID DOCUSATE SODIUM 31299978966 No Longer Active Anthony CARBONE Active TRINESSA (28) 0.18/0.215/0.25 MG-35 MCG TABS 1 po qd as directed NORGESTIM-ETH ESTRAD TRIPHASIC 90620225219 No Longer Active Anthony CARBONE Active [facility] MELATONIN 5 MG TABS 1-2 po qHS PRN Insomnia MELATONIN 39897260511 No Longer Active Anthony CARBONE Active NOVOLOG FLEXPEN 100 UNIT/ML SOPN Take 18 units TID with meals INSULIN ASPART 80714962390 Active Anthony CARBONE Active ACYCLOVIR 400 MG TABS ACYCLOVIR 41769547049 No Longer Active Ang Markham MD Active EMBRACE BLOOD GLUCOSE TEST STRP Test blood sugars 4 times daily and PRN 08/05 GLUCOSE BLOOD 19532168755 Active Ang Markham MD Active HYDROXYZINE HCL 25 MG TABS 1 tab PO tid PRN itching HYDROXYZINE HCL 64505237388 No Longer Active Ang Markham MD Active DIFLUCAN 150 MG TAB 1 qODay x 2 doses FLUCONAZOLE 28962660662 No Longer Active Da Romero [employer] Active ACYCLOVIR 400 MG TABS 1 pill twice daily ACYCLOVIR 36450983850 No Longer Active Da Romero APRN Active AZITHROMYCIN 250 MG TABS 2 po qd x 1 day, then 1 po qd x 4 days AZITHROMYCIN 14104970414 No Longer Active Eri Borges MD PhD Active AZITHROMYCIN 250 MG TABS take 2 po day 1 then take1 po days 2-5 AZITHROMYCIN 39665748029 No Longer Active Octaviano CARBONE Active ACYCLOVIR 400 MG TABS 1 po qd ACYCLOVIR 62869144651 No Longer Active Ang Markham MD Active PROZAC 40 MG CAPS 1 cap by mouth at bedtime FLUOXETINE HCL 31243766069 No Longer Active Ang Markham MD Active HYDROXYZINE HCL 25 MG TABS 1 tab PO tid PRN itching HYDROXYZINE HCL 25 MG TABS 715381 HYDROXYZINE HCL Inactive [facility] MELATONIN 5 MG TABS 1-2 po qHS PRN Insomnia [facility] MELATONIN 5 MG TABS 133542 MELATONIN Inactive TRINESSA (28) 0.18/0.215/0.25 MG-35 MCG TABS 1 po qd as directed TRINESSA (28) 0.18/0.215/0.25 MG-35 MCG TABS 363264 NORGESTIM-ETH ESTRAD TRIPHASIC Inactive COLACE 100 MG CAP 1 tab PO BID COLACE 100 MG CAP 6813855 DOCUSATE SODIUM Inactive ANUSOL-HC 2.5 % CREAM apply as needed ANUSOL-HC 2.5 % CREAM 436990 HYDROCORTISONE (RECTAL) Inactive ZOLOFT 50 MG TAB 1 tablet by mouth daily ZOLOFT 50 MG TAB 418473 SERTRALINE HCL Inactive CEFTIN 500 MG TAB 1 tablet by mouth twice daily for 7 days 07/24 CEFTIN 500 MG TAB 569571 CEFUROXIME AXETIL Inactive NITROFURANTOIN MACROCRYSTAL 100 MG CAPS 1 capsule PO bid x 7 days NITROFURANTOIN MACROCRYSTAL 100 MG CAPS 933058 NITROFURANTOIN MACROCRYSTAL Inactive IBUPROFEN 800 MG TABS 1 tab every 8 hours as needed for pain 2013 IBUPROFEN 800 MG TABS 212667 IBUPROFEN Inactive COLACE 100 MG CAP 1 po BID PRN Constipation COLACE 100 MG CAP 2687071 DOCUSATE SODIUM Inactive ACYCLOVIR 400 MG TABS 1 po qd ACYCLOVIR 400 MG TABS 19720928 ACYCLOVIR Inactive AZITHROMYCIN 250 MG TABS take 2 po day 1 then take1 po days 2-5 AZITHROMYCIN 250 MG TABS 0186444 AZITHROMYCIN Inactive AZITHROMYCIN 250 MG TABS 2 po qd x 1 day, then 1 po qd x 4 days AZITHROMYCIN 250 MG TABS 5078160 AZITHROMYCIN Inactive ACYCLOVIR 400 MG TABS 1 pill twice daily ACYCLOVIR 400 MG TABS 19720928 ACYCLOVIR Inactive DIFLUCAN 150 MG TAB 1 qODay x 2 doses DIFLUCAN 150 MG TAB 419821 FLUCONAZOLE Inactive ACYCLOVIR 400 MG TABS ACYCLOVIR 400 MG TABS 19720928 ACYCLOVIR Inactive DIFLUCAN 150 MG TAB 1 qODay x 2 doses DIFLUCAN 150 MG TAB 487198 FLUCONAZOLE Inactive Advance Directives Directive Description Start [...] Lab Report: CBC W/DIFF, Comp. Metabolic Panel, [facility] - Chemistry sodium, serum 131 mmol/L 806-125 5184/10/27 potassium, serum 4.8 mmol/L 3.5-5.2 chloride, serum [...] 267 10^3/MM^3 10*3/mm3 142-424 Lab Report: Chlamydia/GC APTIMA/05118 - Lab chlamydia DNA probe NOT DETECTED NOT DETECTED Lab Report: Chlamydia/GC APTIMA/42042 - Microbiology Neisseria gonorrhoeae DNA probe NOT [...] Negative Encounters Code Encounter Date Provider Facility CPT-81178 Level 4 Est. Patient 13:53:06 MASS SPECTROSCOPIST Ang Markham MD [facility] CPT-34666 Level 3 Est. Patient 08:58:08 MASS SPECTROSCOPIST Ang Markham MD [facility] CPT-90978 Level 3 Est. Patient 18:48:29 CDT Anthony Whitfield [facility] CPT-28339 Level 3 Est. Patient 12:16:59 CDT Gabriel Hunt DO [facility] CPT-18324 Level 3 Est. Patient 18:57:15 CDT Anthony Whitfield [facility] CPT-25032 Level 3 Est. Patient 13:59:22 MASS SPECTROSCOPIST Ang Markham MD [facility] CPT-73897 Level 4 Est. Patient 10:36:08 MASS SPECTROSCOPIST Ang Markham MD [facility] CPT-03922 Level 3 Est. Patient 16:27:02 CDT Eri Borges MD [facility] CPT-13245 Level 3 Est. Patient 10:36:43 CDT Octaviano Dempsey [facility] CPT-57990 Level 4 New Patient 08:58:06 CDT Ang Markham MD [facility] Procedures Code Procedure Name Date Entry Date Standard Description CPT-61175 Venipuncture Draw Fee 12:25:15 CDT CPT-67263 Knee 3V 16:48:40 CDT CPT-OV Office Visit 16:27:13 CDT CPT-OV Office Visit 16:21:19 CDT CPT-05098 Sono pelvis non OB uterus ovaries cervix 09:37:28 CDT
--- OUTSIDE RECORDS SUMMARY | 2018-12-22 02:55 | XMS REPORT ---
Author Author [facility] Medical Staff Organization [facility] Address [address] [place] [address] Phone [phone] Care Team Providers Care Director Of Industrial Relations Name Role Phone MARLEEN ROSALES, ALMAS PP [phone] Summary purpose TRANSITION OF CARE AUTO GENERATION [...] are available for this visit. Vital signs Type Value Date Respiration Rate 20breaths per minute 22-54-288968:20 Pulse 101beats per minute :20 Oxygen Saturation 100% 97-09-818810:20 BP Systolic 118mmHg 21-91-210142:20 BP Diastolic 86mmHg 29-80-092135:20 Temperature 97.3F 91-61-760195:20 Height 62inches :30 Weight 135LB 39-79-033282:30 Social history Type Value Smoking Status CURRENT EVERY DAY SMOKER Treatment Plan No treatment plan text is available for this visit. Hospital discharge instructions Dismissal Condition good Disposition on DC home DC Inst/Educ Give yes Med/Side Effects Rev yes
--- OUTSIDE RECORDS SUMMARY | 2018-12-22 02:55 | XMS REPORT ---
Author Author [facility] Organization [facility] Address [address] [place], [place] [address] Phone [phone] Care Team Providers Care Program Assistant Name Role Phone ALMAS HAWLEY MD PP [phone] Summary purpose TRANSITION OF CARE AUTO GENERATION [...] Status Finding Observation Time Abdomen Appearance obese :35 Abdomen soft :35 Bowel Sounds present :35 Urination normal :35 Quality sym/unlabored :35 Cough absent :35 Secretions no :35 Breath Sounds RUL clear :35 Breath Sounds RML clear :35 Breath Sounds RLL clear :35 Breath Sounds RITESH clear :35 Breath Sounds LLL clear :35 Airway natural :35 Chest Tube no :35 Oxygen no :55 Temp >100.4 no :35 Temp <96.8 no :35 Chills with rigors no :35 HR > 90bpm yes :35 Respirations > 20 no :35 Systolic <90 no :35 headache stiff neck no :35 Rapid Resp no :35 Nursing Note Benedryl 50mg PO admin. VS obtained and stable. Pt in good condition and ambulatory. :55 Vital signs Type Value Date Respiration Rate 18breaths per minute :55 Pulse 86beats per minute :55 Oxygen Saturation 100% :55 BP Systolic 108mmHg :55 BP Diastolic 75mmHg :55 Temperature 98.0F :55 Height 63inches :36 Weight 135.2LB :36 Social history Type Value Smoking Status CURRENT EVERY DAY SMOKER Treatment Plan No treatment plan text is available for this visit. Hospital discharge instructions Dismissal Condition good Disposition on DC home DC Inst/Educ Give yes Med/Side Effects Rev yes
--- OUTSIDE RECORDS SUMMARY | 2018-12-22 02:56 | XMS REPORT ---
Author Author [facility] Medical Staff Organization [facility] Address [address] [place], [place] [address] Phone [phone] Care Team Providers Care Test Automation Architect Name Role Phone MARLEEN ROSALES, ALMAS PP [phone] Summary purpose TRANSITION OF CARE AUTO GENERATION Chief Complaint and Reason for Visit Admit Diagnosis 1 ACUTE PHARYNGITIS Problem list No authorized problems tracked for [...] Code Type Description Date Performed Performing Physician [id number] CPT-4 STREP A ASSAY W/OPTIC 09-16-2014 KRISTINE GARRETT [id number] CPT-4 EMERGENCY DEPT VISIT 09-16-2014 KRISTINE GARRETT 70790 CPT-4 EMERGENCY DEPT VISIT 09-16-2014 KRISTINE GARRETT Functional status No functional or cognitive status observations are available for this visit. Vital signs Type Value Date Respiration Rate 18breaths per minute 57-20-187994:05 Pulse 90beats per minute 46-61-136103:05 Oxygen Saturation 99% 74-58-409427:05 BP Systolic 113mmHg 22-38-148220:05 BP Diastolic 86mmHg 36-25-934579:05 Temperature 97.8F :05 Height 62inches :05 Weight 135LB 90-29-464627:05 Social history Type Value Smoking Status CURRENT EVERY DAY SMOKER Treatment Plan No treatment plan text is available for this visit. Hospital discharge instructions Dismissal Condition fair Disposition on DC home DC Inst/Educ Give yes Med/Side Effects Rev yes
--- OUTSIDE RECORDS SUMMARY | 2018-12-22 02:56 | XMS REPORT | Clinical Summary ---
Author Author Admin, ALEXANDER Organization [facility] Address Unknown Phone Unavailable Allergies, Adverse Reactions, [...] 60 units SC at bedtime INSULIN DETEMIR 81673581377 Active Anthony CARBONE Active CEFTIN 500 MG TAB 1 tablet by mouth twice daily for 7 days 07/24 CEFUROXIME AXETIL 80455743447 No Longer Active Anhtony CARBONE Active NITROFURANTOIN MACROCRYSTAL 100 MG CAPS 1 capsule PO bid x 7 days NITROFURANTOIN MACROCRYSTAL 28610927808 Active Anthony CARBONE Active ZOLPIDEM TARTRATE 10 MG TABS 1 tab PO at hs ZOLPIDEM TARTRATE 71919590434 Active Anthony CARBONE Active ZOLOFT 50 MG TAB 1 tablet by mouth daily SERTRALINE HCL 37974116297 No Longer Active Anthony CARBONE Active ANUSOL-HC 2.5 % CREAM apply as needed HYDROCORTISONE (RECTAL) 44516601282 No Longer Active Anthony CARBONE Active COLACE 100 MG CAP 1 tab PO BID DOCUSATE SODIUM 09442172436 No Longer Active Anthony CARBONE Active CYCLOBENZAPRINE HCL 5 MG TABS 1/2 to 1 tab PO tid PRN CYCLOBENZAPRINE HCL 47436492850 Active Anthony CARBONE Active TRINESSA (28) 0.18/0.215/0.25 MG-35 MCG TABS 1 po qd as directed NORGESTIM-ETH ESTRAD TRIPHASIC 68557146479 No Longer Active Anthony CARBONE Active [facility] MELATONIN 5 MG TABS 1-2 po qHS PRN Insomnia MELATONIN 28270428103 No Longer Active Anthony CARBONE Active NOVOLOG FLEXPEN 100 UNIT/ML SOPN Take 18 units TID with meals INSULIN ASPART 01237585759 Active Anthony CARBONE Active ACYCLOVIR 400 MG TABS ACYCLOVIR 61700819264 No Longer Active Ang Markham MD Active EMBRACE BLOOD GLUCOSE TEST STRP Test blood sugars 4 times daily and PRN 08/05 GLUCOSE BLOOD 63563419047 Active Ang Markham MD Active HYDROXYZINE HCL 25 MG TABS 1 tab PO tid PRN itching HYDROXYZINE HCL 04065754036 No Longer Active Ang Markham MD Active DIFLUCAN 150 MG TAB 1 qODay x 2 doses FLUCONAZOLE 87398569686 No Longer Active Da Romero APRN Active ACYCLOVIR 400 MG TABS 1 pill twice daily ACYCLOVIR 83825742462 No Longer Active Jillpiedad Romero APRN Active AZITHROMYCIN 250 MG TABS 2 po qd x 1 day, then 1 po qd x 4 days AZITHROMYCIN 33160588634 No Longer Active Eri Borges MD PhD Active AZITHROMYCIN 250 MG TABS take 2 po day 1 then take1 po days 2-5 AZITHROMYCIN 54862005956 No Longer Active Octaviano CARBONE Active ACYCLOVIR 400 MG TABS 1 po qd ACYCLOVIR 93579712221 No Longer Active Ang Markham MD Active PROZAC 40 MG CAPS 1 cap by mouth at bedtime FLUOXETINE HCL 22107487743 No Longer Active Ang Markham MD Active METFORMIN HCL 1000 MG TABS 1 tablet by mouth twice daily METFORMIN HCL 15809413942 Active Ang Markham MD Active HYDROXYZINE HCL 25 MG TABS 1 tab PO tid PRN itching HYDROXYZINE HCL 25 MG TABS 974913 HYDROXYZINE HCL Inactive [facility] MELATONIN 5 MG TABS 1-2 po qHS PRN Insomnia [facility] MELATONIN 5 MG TABS 210195 MELATONIN Inactive TRINESSA (28) 0.18/0.215/0.25 MG-35 MCG TABS 1 po qd as directed TRINESSA (28) 0.18/0.215/0.25 MG-35 MCG TABS 255283 NORGESTIM-ETH ESTRAD TRIPHASIC Inactive COLACE 100 MG CAP 1 tab PO BID COLACE 100 MG CAP 1386253 DOCUSATE SODIUM Inactive ANUSOL-HC 2.5 % CREAM apply as needed ANUSOL-HC 2.5 % CREAM 909767 HYDROCORTISONE (RECTAL) Inactive ZOLOFT 50 MG TAB 1 tablet by mouth daily ZOLOFT 50 MG TAB 057539 SERTRALINE HCL Inactive CEFTIN 500 MG TAB 1 tablet by mouth twice daily for 7 days 07/24 CEFTIN 500 MG TAB 462819 CEFUROXIME AXETIL Inactive ACYCLOVIR 400 MG TABS 1 po qd ACYCLOVIR 400 MG TABS 349608 ACYCLOVIR Inactive AZITHROMYCIN 250 MG TABS take 2 po day 1 then take1 po days 2-5 AZITHROMYCIN 250 MG TABS 5976924 AZITHROMYCIN Inactive AZITHROMYCIN 250 MG TABS 2 po qd x 1 day, then 1 po qd x 4 days AZITHROMYCIN 250 MG TABS 1013121 AZITHROMYCIN Inactive ACYCLOVIR 400 MG TABS 1 pill twice daily ACYCLOVIR 400 MG TABS 19720928 ACYCLOVIR Inactive DIFLUCAN 150 MG TAB 1 qODay x 2 doses DIFLUCAN 150 MG TAB 980078 FLUCONAZOLE Inactive ACYCLOVIR 400 MG TABS ACYCLOVIR [...] HGBA1C - Chemistry sodium, serum 131 mmol/L 348-316 7690/10/27 potassium, serum 4.8 mmol/L 3.5-5.2 chloride, serum [...] mg/dL Encounters Code Encounter Date Provider Facility CPT-24169 Level 3 Est. Patient 18:48:29 CDT Anthony CARBONE [facility] CPT-59924 Level 3 Est. Patient 12:16:59 CDT Gabriel Hunt DO [facility] CPT-58083 Level 3 Est. Patient 18:57:15 CDT Anthony Whitfield [facility] CPT-03039 Level 3 Est. Patient 13:59:22 ENTERTAINMENT DIRECTOR Ang Markham MD [facility] CPT-23512 Level 4 Est. Patient 10:36:08 ENTERTAINMENT DIRECTOR Ang Markham MD [facility] CPT-51111 Level 3 Est. Patient 16:27:02 CDT Eri Borges MD PhD [facility] CPT-14586 Level 3 Est. Patient 10:36:43 CDT Octaviano Dempsey [facility] CPT-01577 Level 4 New Patient 08:58:06 CDT Ang Markham MD [facility] Procedures Code Procedure Name Date Entry Date Standard Description CPT-23208 Venipuncture Draw Fee 12:25:15 CDT CPT-49073 Knee 3V 16:48:40 CDT CPT-OV Office Visit 16:27:13 CDT CPT-OV Office Visit 16:21:19 CDT CPT-63397 Sono pelvis non OB uterus ovaries cervix 09:37:28 CDT
--- OUTSIDE RECORDS SUMMARY | 2018-12-22 02:57 | XMS REPORT | Clinical Summary ---
Author Author Admin, ALEXANDER Organization [facility] Address Unknown Phone Unavailable Allergies, Adverse [...] Active Ang Markham MD Absence of menstruation AMENORRHEA ICD-626.0 Inactive Eri Borges MD PhD ABDOMINAL PAIN RIGHT LOWER QUADRANT ICD-789.03 Inactive Eri Borges MD PhD LOM ICD-382.9 Inactive Eri Borges MD PhD SINUSITIS, ACUTE ICD-461.9 Inactive Ang Markham MD CANDIDAL VAGINITIS ICD-112.1 Inactive Ang Markham MD Cystitis, acute ICD-595.0 Inactive Ang Markham MD UTI ICD-599.0 Inactive Ang Markham MD Vaginal discharge ICD-623.5 Inactive Ang Markham MD Medication List Medication Instructions Start Date Stop Date Generic Name NDC Status Provider Patient Instruction COLACE 100 MG CAP 1 po BID PRN Constipation DOCUSATE SODIUM 72872968690 Active Ang Markham MD Active HYDROXYZINE HCL 25 MG TAB 1 TID PRN nerves HYDROXYZINE HCL 92109041693 Active Ang Markham MD Active ZOLOFT 50 MG TAB 0.5 po qd x 4 days, then 1 po qd SERTRALINE HCL 23758327727 Active Ang Markham MD Active MELOXICAM 15 MG TABS 1 po q day for pain with food MELOXICAM 69138461782 Active Ang Markham MD Active IBUPROFEN 800 MG TABS 1 tab every 8 hours as needed for pain 2013 IBUPROFEN 05454964667 No Longer Active Ang Markham MD Active NITROFURANTOIN MACROCRYSTAL 100 MG CAPS 1 capsule PO bid x 7 days NITROFURANTOIN MACROCRYSTAL 53753085150 No Longer Active Ang Markham MD Active LEVEMIR FLEXPEN 100 UNIT/ML SOLN 40 units SC at bedtime INSULIN DETEMIR 26768987038 Active Ang Markham MD Active DIFLUCAN 150 MG TAB 1 qODay x 2 doses FLUCONAZOLE 60611634657 No Longer Active Da Romero APRN Active CEFTIN 500 MG TAB 1 tablet by mouth twice daily for 7 days 07/24 CEFUROXIME AXETIL 39191292212 No Longer Active Anthony CARBONE Active ZOLPIDEM TARTRATE 10 MG TABS 1 tab PO at hs ZOLPIDEM TARTRATE 13692641751 Active Anthony CARBONE Active ZOLOFT 50 MG TAB 1 tablet by mouth daily SERTRALINE HCL 41764380882 No Longer Active Anthony CARBONE Active ANUSOL-HC 2.5 % CREAM apply as needed HYDROCORTISONE (RECTAL) 59104649586 No Longer Active Anthony CARBONE Active COLACE 100 MG CAP 1 tab PO BID DOCUSATE SODIUM 10211998693 No Longer Active Anthony CARBONE Active CYCLOBENZAPRINE HCL 5 MG TABS 1/2 to 1 tab PO tid PRN CYCLOBENZAPRINE HCL 48076976257 Active Anthony CARBONE Active TRINESSA (28) 0.18/0.215/0.25 MG-35 MCG TABS 1 po qd as directed NORGESTIM-ETH ESTRAD TRIPHASIC 27994214272 No Longer Active Anthony CARBONE Active [facility] MELATONIN 5 MG TABS 1-2 po qHS PRN Insomnia MELATONIN 56527999881 No Longer Active Anthony CARBONE Active NOVOLOG FLEXPEN 100 UNIT/ML SOPN Take 18 units TID with meals INSULIN ASPART 49406870096 Active Anthony CARBONE Active ACYCLOVIR 400 MG TABS ACYCLOVIR 64168708351 No Longer Active Ang Markham MD Active EMBRACE BLOOD GLUCOSE TEST STRP Test blood sugars 4 times daily and PRN 08/05 GLUCOSE BLOOD 30083977687 Active Ang Markham MD Active HYDROXYZINE HCL 25 MG TABS 1 tab PO tid PRN itching HYDROXYZINE HCL 20648842624 No Longer Active Ang Markham MD Active DIFLUCAN 150 MG TAB 1 qODay x 2 doses FLUCONAZOLE 64874331709 No Longer Active Da Romero APRN Active ACYCLOVIR 400 MG TABS 1 pill twice daily ACYCLOVIR 63432739276 No Longer Active Da Romero APRN Active AZITHROMYCIN 250 MG TABS 2 po qd x 1 day, then 1 po qd x 4 days AZITHROMYCIN 53797686935 No Longer Active Eri Borges MD PhD Active AZITHROMYCIN 250 MG TABS take 2 po day 1 then take1 po days 2-5 AZITHROMYCIN 53531159763 No Longer Active Octaviano CARBONE Active ACYCLOVIR 400 MG TABS 1 po qd ACYCLOVIR 33577381909 No Longer Active Ang Markham MD Active PROZAC 40 MG CAPS 1 cap by mouth at bedtime FLUOXETINE HCL 41496166286 No Longer Active Ang Markham MD Active METFORMIN HCL 1000 MG TABS 1 tablet by mouth twice daily METFORMIN HCL 48589422741 Active Ang Markham MD Active HYDROXYZINE HCL 25 MG TABS 1 tab PO tid PRN itching HYDROXYZINE HCL 25 MG TABS 471316 HYDROXYZINE HCL Inactive [facility] MELATONIN 5 MG TABS 1-2 po qHS PRN Insomnia [facility] MELATONIN 5 MG TABS 335042 MELATONIN Inactive TRINESSA (28) 0.18/0.215/0.25 MG-35 MCG TABS 1 po qd as directed TRINESSA (28) 0.18/0.215/0.25 MG-35 MCG TABS 747203 NORGESTIM-ETH ESTRAD TRIPHASIC Inactive COLACE 100 MG CAP 1 tab PO BID COLACE 100 MG CAP 8838473 DOCUSATE SODIUM Inactive ANUSOL-HC 2.5 % CREAM apply as needed ANUSOL-HC 2.5 % CREAM 227480 HYDROCORTISONE (RECTAL) Inactive ZOLOFT 50 MG TAB 1 tablet by mouth daily ZOLOFT 50 MG TAB 603076 SERTRALINE HCL Inactive CEFTIN 500 MG TAB 1 tablet by mouth twice daily for 7 days 07/24 CEFTIN 500 MG TAB 033589 CEFUROXIME AXETIL Inactive NITROFURANTOIN MACROCRYSTAL 100 MG CAPS 1 capsule PO bid x 7 days NITROFURANTOIN MACROCRYSTAL 100 MG CAPS 909443 NITROFURANTOIN MACROCRYSTAL Inactive IBUPROFEN 800 MG TABS 1 tab every 8 hours as needed for pain 2013 IBUPROFEN 800 MG TABS 502517 IBUPROFEN Inactive ACYCLOVIR 400 MG TABS 1 po qd ACYCLOVIR 400 MG TABS 258643 ACYCLOVIR Inactive AZITHROMYCIN 250 MG TABS take 2 po day 1 then take1 po days 2-5 AZITHROMYCIN 250 MG TABS 0252165 AZITHROMYCIN Inactive AZITHROMYCIN 250 MG TABS 2 po qd x 1 day, then 1 po qd x 4 days AZITHROMYCIN 250 MG TABS 5681895 AZITHROMYCIN Inactive ACYCLOVIR 400 MG TABS 1 [...] HGBA1C - Chemistry sodium, serum 131 mmol/L 934-678 5120/10/27 potassium, serum 4.8 mmol/L 3.5-5.2 chloride, serum [...] 267 10^3/MM^3 10*3/mm3 142-424 Lab Report: Chlamydia/GC [id number] - Lab chlamydia DNA probe NOT DETECTED NOT DETECTED Lab Report: Chlamydia/GC [id number] - Microbiology Neisseria gonorrhoeae DNA probe NOT [...] Negative Encounters Code Encounter Date Provider Facility CPT-63413 Level 3 Est. Patient 08:58:08 GREASER OPERATOR Ang Markham MD [facility] CPT-32250 Level 3 Est. Patient 18:48:29 CDT Anthony CARBONE [facility] CPT-28305 Level 3 Est. Patient 12:16:59 CDT Gabriel Hunt DO [facility] CPT-20605 Level 3 Est. Patient 18:57:15 CDT Anthony CARBONE [facility] CPT-47648 Level 3 Est. Patient 13:59:22 GREASER OPERATOR Ang Markham MD [facility] CPT-95763 Level 4 Est. Patient 10:36:08 GREASER OPERATOR Ang Markham MD [facility] CPT-58077 Level 3 Est. Patient 16:27:02 CDT Eri Borges MD PhD [facility] CPT-41882 Level 3 Est. Patient 10:36:43 CDT Octaviano Dempsey [facility] CPT-58150 Level 4 New Patient 08:58:06 CDT Ang Markham MD [facility] Procedures Code Procedure Name Date Entry Date Standard Description CPT-01169 Venipuncture Draw Fee 12:25:15 CDT CPT-52501 Knee 3V 16:48:40 CDT CPT-OV Office Visit 16:27:13 CDT CPT-OV Office Visit 16:21:19 CDT CPT-43523 Sono pelvis non OB uterus ovaries cervix 09:37:28 CDT
--- OUTSIDE RECORDS SUMMARY | 2018-12-22 02:57 | XMS REPORT | Clinical Summary ---
Author Author Admin, ALEXANDER Organization [facility] Address Unknown Phone Unavailable Allergies, Adverse [...] 60 units SC at bedtime INSULIN DETEMIR 42606297555 Active Anthony CARBONE Active CEFTIN 500 MG TAB 1 tablet by mouth twice daily for 7 days 07/24 CEFUROXIME AXETIL 17114170630 No Longer Active Anthony CARBONE Active NITROFURANTOIN MACROCRYSTAL 100 MG CAPS 1 capsule PO bid x 7 days NITROFURANTOIN MACROCRYSTAL 92943804079 Active Anthony CARBONE Active ZOLPIDEM TARTRATE 10 MG TABS 1 tab PO at hs ZOLPIDEM TARTRATE 09644410195 Active Anthony CARBONE Active ZOLOFT 50 MG TAB 1 tablet by mouth daily SERTRALINE HCL 72064852301 No Longer Active Anthony CARBONE Active ANUSOL-HC 2.5 % CREAM apply as needed HYDROCORTISONE (RECTAL) 48872569083 No Longer Active Anthony CARBONE Active COLACE 100 MG CAP 1 tab PO BID DOCUSATE SODIUM 03542400207 No Longer Active Anthony CARBONE Active CYCLOBENZAPRINE HCL 5 MG TABS 1/2 to 1 tab PO tid PRN CYCLOBENZAPRINE HCL 09158545943 Active Anthony CARBONE Active TRINESSA (28) 0.18/0.215/0.25 MG-35 MCG TABS 1 po qd as directed NORGESTIM-ETH ESTRAD TRIPHASIC 06746452170 No Longer Active Anthony CARBONE Active [facility] MELATONIN 5 MG TABS 1-2 po qHS PRN Insomnia MELATONIN 33167655353 No Longer Active Anthony CARBONE Active NOVOLOG FLEXPEN 100 UNIT/ML SOPN Take 18 units TID with meals INSULIN ASPART 42922181035 Active Anthony CARBONE Active ACYCLOVIR 400 MG TABS ACYCLOVIR 14422362221 No Longer Active Ang Markham MD Active EMBRACE BLOOD GLUCOSE TEST STRP Test blood sugars 4 times daily and PRN 08/05 GLUCOSE BLOOD 32513801174 Active Ang Markham MD Active HYDROXYZINE HCL 25 MG TABS 1 tab PO tid PRN itching HYDROXYZINE HCL 53980948225 No Longer Active Ang Markham MD Active DIFLUCAN 150 MG TAB 1 qODay x 2 doses FLUCONAZOLE 01746827322 No Longer Active Da Romero APRN Active ACYCLOVIR 400 MG TABS 1 pill twice daily ACYCLOVIR 99718955996 No Longer Active Jillpiedad Romero APRN Active AZITHROMYCIN 250 MG TABS 2 po qd x 1 day, then 1 po qd x 4 days AZITHROMYCIN 76931198068 No Longer Active Eri Borges MD PhD Active AZITHROMYCIN 250 MG TABS take 2 po day 1 then take1 po days 2-5 AZITHROMYCIN 36631519739 No Longer Active Octaviano CARBONE Active ACYCLOVIR 400 MG TABS 1 po qd ACYCLOVIR 40924077163 No Longer Active Ang Markham MD Active PROZAC 40 MG CAPS 1 cap by mouth at bedtime FLUOXETINE HCL 19638514599 No Longer Active Ang Markham MD Active METFORMIN HCL 1000 MG TABS 1 tablet by mouth twice daily METFORMIN HCL 71731919450 Active Ang Markham MD Active HYDROXYZINE HCL 25 MG TABS 1 tab PO tid PRN itching HYDROXYZINE HCL 25 MG TABS 258623 HYDROXYZINE HCL Inactive [facility] MELATONIN 5 MG TABS 1-2 po qHS PRN Insomnia [facility] MELATONIN 5 MG TABS 665668 MELATONIN Inactive TRINESSA (28) 0.18/0.215/0.25 MG-35 MCG TABS 1 po qd as directed TRINESSA (28) 0.18/0.215/0.25 MG-35 MCG TABS 306884 NORGESTIM-ETH ESTRAD TRIPHASIC Inactive COLACE 100 MG CAP 1 tab PO BID COLACE 100 MG CAP 9693408 DOCUSATE SODIUM Inactive ANUSOL-HC 2.5 % CREAM apply as needed ANUSOL-HC 2.5 % CREAM 026973 HYDROCORTISONE (RECTAL) Inactive ZOLOFT 50 MG TAB 1 tablet by mouth daily ZOLOFT 50 MG TAB 055499 SERTRALINE HCL Inactive CEFTIN 500 MG TAB 1 tablet by mouth twice daily for 7 days 07/24 CEFTIN 500 MG TAB 472962 CEFUROXIME AXETIL Inactive ACYCLOVIR 400 MG TABS 1 po qd ACYCLOVIR 400 MG TABS 783702 ACYCLOVIR Inactive AZITHROMYCIN 250 MG TABS take 2 po day 1 then take1 po days 2-5 AZITHROMYCIN 250 MG TABS 2423527 AZITHROMYCIN Inactive AZITHROMYCIN 250 MG TABS 2 po qd x 1 day, then 1 po qd x 4 days AZITHROMYCIN 250 MG TABS 3508039 AZITHROMYCIN Inactive ACYCLOVIR 400 MG TABS 1 pill twice daily ACYCLOVIR 400 MG TABS 19720928 ACYCLOVIR Inactive DIFLUCAN 150 MG TAB 1 qODay x 2 doses DIFLUCAN 150 MG TAB 459095 FLUCONAZOLE Inactive ACYCLOVIR 400 MG TABS ACYCLOVIR [...] HGBA1C - Chemistry sodium, serum 131 mmol/L 950-340 0646/10/27 potassium, serum 4.8 mmol/L 3.5-5.2 chloride, serum [...] mg/dL Encounters Code Encounter Date Provider Facility CPT-42868 Level 3 Est. Patient 18:48:29 CDT Anthony CARBONE [facility] CPT-71889 Level 3 Est. Patient 12:16:59 CDT Gabriel Hunt DO [facility] CPT-28184 Level 3 Est. Patient 18:57:15 CDT Anthony Whitfield [facility] CPT-73821 Level 3 Est. Patient 13:59:22 RETAIL SHIFT LEADER Ang Markham MD [facility] CPT-69142 Level 4 Est. Patient 10:36:08 RETAIL SHIFT LEADER Ang Markham MD [facility] CPT-68852 Level 3 Est. Patient 16:27:02 CDT Eri Borges MD PhD [facility] CPT-98747 Level 3 Est. Patient 10:36:43 CDT Octaviano Dempsey [facility] CPT-20383 Level 4 New Patient 08:58:06 CDT Ang Markham MD [facility] Procedures Code Procedure Name Date Entry Date Standard Description CPT-06391 Venipuncture Draw Fee 12:25:15 CDT CPT-84908 Knee 3V 16:48:40 CDT CPT-OV Office Visit 16:27:13 CDT CPT-OV Office Visit 16:21:19 CDT CPT-56805 Sono pelvis non OB uterus ovaries cervix 09:37:28 CDT
--- OUTSIDE RECORDS SUMMARY | 2018-12-22 02:57 | XMS REPORT | Clinical Summary ---
Author Author Admin, ALEXANDER Organization [facility] Address Unknown Phone Unavailable Allergies, [...] 780.52 Active Ang Markham MD Insomnia, unspecified AMENORRHEA ICD-626.0 Inactive Eri Borges MD PhD ABDOMINAL PAIN RIGHT LOWER QUADRANT ICD-789.03 Inactive Eri Borges MD PhD LOM ICD-382.9 Inactive Eri Borges MD PhD SINUSITIS, ACUTE ICD-461.9 Inactive Ang Markham MD CANDIDAL VAGINITIS ICD-112.1 Inactive Ang Markham MD Medication List Medication Instructions Start Date Stop Date Generic Name NDC Status Provider Patient Instruction NOVOLOG FLEXPEN 100 UNIT/ML SOPN Take 18 units TID with meals INSULIN ASPART 91416427391 Active Rena Cheema EARLY CHILDHOOD DIRECTOR Active ACYCLOVIR 400 MG TABS ACYCLOVIR 94634600360 No Longer Active Ang Markham MD Active LEVEMIR FLEXPEN 100 UNIT/ML SOLN 60 units SC at bedtime INSULIN DETEMIR 15170551605 Active Ang Markham MD Active EMBRACE BLOOD GLUCOSE TEST STRP Test blood sugars 4 times daily and PRN 08/05 GLUCOSE BLOOD 05201225862 Active Ang Markham MD Active [facility] MELATONIN 5 MG TABS 1-2 po qHS PRN Insomnia MELATONIN 62812542310 Active Ang Markham MD Active ZOLOFT 50 MG TAB 1 tablet by mouth daily SERTRALINE HCL 59409616610 Active Ang Markham MD Active HYDROXYZINE HCL 25 MG TABS 1 tab PO tid PRN itching HYDROXYZINE HCL 47108104639 No Longer Active Ang Markham MD Active DIFLUCAN 150 MG TAB 1 qODay x 2 doses FLUCONAZOLE 51694244388 No Longer Active Da Romero APRN Active COLACE 100 MG CAP 1 tab PO BID DOCUSATE SODIUM 24032705617 Active Josephllpiedad Romero APRN Active ANUSOL-HC 2.5 % CREAM apply as needed HYDROCORTISONE (RECTAL) 75785421073 Active Da Romero APRN Active ACYCLOVIR 400 MG TABS 1 pill twice daily ACYCLOVIR 52651624030 No Longer Active Da Romero APRN Active AZITHROMYCIN 250 MG TABS 2 po qd x 1 day, then 1 po qd x 4 days AZITHROMYCIN 25226254379 No Longer Active Eri Borges MD PhD Active AZITHROMYCIN 250 MG TABS take 2 po day 1 then take1 po days 2-5 AZITHROMYCIN 81166528110 No Longer Active Octaviano Dempsey PA Active TRINESSA (28) 0.18/0.215/0.25 MG-35 MCG TABS 1 po qd as directed NORGESTIM-ETH ESTRAD TRIPHASIC 77890942774 Active Ang Markham MD Active ACYCLOVIR 400 MG TABS 1 po qd ACYCLOVIR 52867296146 No Longer Active Ang Markham MD Active PROZAC 40 MG CAPS 1 cap by mouth at bedtime FLUOXETINE HCL 58341896645 No Longer Active Ang Markham MD Active METFORMIN HCL 1000 MG TABS 1 tablet by mouth twice daily METFORMIN HCL 95256531453 Active Ang Markham MD Active HYDROXYZINE HCL 25 MG TABS 1 tab PO tid PRN itching HYDROXYZINE HCL 25 MG TABS 727480 HYDROXYZINE HCL Inactive ACYCLOVIR 400 MG TABS 1 po qd ACYCLOVIR 400 MG TABS 271070 ACYCLOVIR Inactive AZITHROMYCIN 250 MG TABS take 2 po day 1 then take1 po days 2-5 AZITHROMYCIN 250 MG TABS 7612675 AZITHROMYCIN Inactive AZITHROMYCIN 250 MG TABS 2 po qd x 1 day, then 1 po qd x 4 days AZITHROMYCIN 250 MG TABS 3849709 AZITHROMYCIN Inactive ACYCLOVIR 400 MG TABS 1 pill twice daily ACYCLOVIR 400 MG TABS 284855 ACYCLOVIR Inactive DIFLUCAN 150 MG TAB 1 qODay x 2 doses DIFLUCAN 150 MG TAB 293959 FLUCONAZOLE Inactive ACYCLOVIR 400 MG TABS ACYCLOVIR 400 MG TABS 825477 ACYCLOVIR Inactive Advance Directives Directive Description Start Date PERMISSION TO SHARE Vital Signs Date Name Value Unit Range Description blood pressure, diastolic - 8462-4 83 mm[Hg] BP arroyo blood pressure, systolic - 8480-6 125 mm[Hg] BP sys height E&M - 8302-2 63 [in_us] Bdy height pulse rate E&M - 8867-4 108 /min Heart rate temperature E&M 97.9 [degF] Body temperature weight E&M - 3141-9 141.25 [lb_av] Weight Measured blood pressure, diastolic - 8462-4 77 mm[Hg] BP [place] blood pressure, systolic - 8480-6 113 mm[Hg] BP sys height E&M - 8302-2 63 [in_us] Bdy height pulse rate E&M - 8867-4 102 /min Heart rate temperature E&M 98.3 [degF] Body temperature weight E&M - 3141-9 141.31 [lb_av] Weight Measured blood pressure, diastolic - 8462-4 73 mm[Hg] BP [place] blood pressure, systolic - 8480-6 111 mm[Hg] BP sys height E&M - 8302-2 63 [in_us] Bdy height pulse rate E&M - 8867-4 116 /min Heart rate temperature E&M 99.3 [degF] Body temperature weight E&M - 3141-9 140 [lb_av] Weight Measured blood pressure, diastolic - 8462-4 82 mm[Hg] BP [place] blood pressure, systolic - 8480-6 124 mm[Hg] BP sys height E&M - 8302-2 63 [in_us] Bdy height pulse rate E&M - 8867-4 103 /min Heart rate temperature E&M 97.7 [degF] Body temperature weight E&M - 3141-9 138 [lb_av] Weight Measured blood pressure, diastolic - 8462-4 82 mm[Hg] BP [place] blood pressure, systolic - 8480-6 125 mm[Hg] BP sys height E&M - 8302-2 63 [in_us] Bdy height pulse rate E&M - 8867-4 96 /min Heart rate temperature E&M 97.4 [degF] Body temperature weight E&M - 3141-9 139 [lb_av] Weight Measured blood pressure, diastolic - 8462-4 82 mm[Hg] BP [place] blood pressure, systolic - 8480-6 125 mm[Hg] BP sys height E&M - 8302-2 63 [in_us] Bdy height pulse rate E&M - 8867-4 98 /min Heart rate temperature E&M 96.9 [degF] Body temperature weight E&M - 3141-9 138 [lb_av] Weight Measured Diagnostic Results Date Name Value Unit Range Description Chart Maintenance: Outside labs entered on flowsheet - Chemistry hemoglobin A1C, blood, as % of total hemoglobin 11.8 % Lab Report: UHCG, Thyroid Stimulating Hormone (L), Free Thyroxine (L), C ... - Chemistry protein, total urine random Negative mg/dL Negative sodium, serum 125 mmol/L 458-782 4472/10/04 potassium, serum 4.5 mmol/L 3.5-5.2 chloride, serum 89 mmol/L 98-107 carbon dioxide, venous blood 27.0 mmol/L 21.0-32.0 blood glucose 796 mg/dL 65-110 urea nitrogen, blood 15 mg/dL 7-18 creatinine, serum 0.90 mg/dL 0.60-1.30 alanine aminotransferase (SGPT), serum 36 U/L 12-78 aspartate aminotransferase (SGOT), serum 12 U/L 15-37 alkaline phosphatase, serum 124 U/L 50-130 calcium, serum 9.0 mg/dL 8.5-10.1 bilirubin, serum, total 0.70 mg/dL 0.00-1.00 human chorionic gonadotropin, urine, qualitative (urine test) Negative Negative TSH 1.49 m[iU]/mL 0.36-3.74 thyroxine, serum, free 0.97 ng/dL 0.76-1.46 RBC, urine, dipstick Negative Negative Lab Report: [facility] [place], Thyroid Stimulating Hormone (L), Free Thyroxine (L), C ... - Hematology leukocyte count, blood 7.0 10^3/MM^3 10*3/mm3 4.6-10.2 neutrophils as percent of blood leukocytes 59.2 % 42.2-75.2 monocytes as percent of blood leukocytes 7.7 % 1.7-9.3 lymphocytes as percent of blood leukocytes 30.9 % 20.5-51.1 erythrocyte (RBC) count 5.38 10^6/MM^3 10*6/mm3 4.04-5.48 hemoglobin, blood 15.3 g/dL 12.0-16.0 hematocrit, blood 46.4 % 36.0-46.0 mean corpuscular volume, RBC 86 fL 80-97 mean corpuscular hemoglobin, RBC 28.4 pg 27.0-31.2 mean corpuscular hemoglobin concentration, RBC 32.9 G/DL % 31.8- 35.4 red blood cell distribution width 13.3 % 11.6-14.8 platelet count 272 10^3/MM^3 10*3/mm3 142-424 Lab Report: UHCG, Thyroid Stimulating Hormone (L), Free Thyroxine (L), C ... - Urinalysis urobilinogen, urine, semiquantitative (dipstick) 0.2 Normal leukocyte esterase, urine, by dipstick Negative Negative nitrite, urine, semiquantitative Negative Negative urine color Yellow Colorless;Lightyellow;Straw;Yellow appearance, urine Clear Clear specific gravity, urine <=1.005 1.000-1.030 pH, urine, semiquantitative 5.5 5.0-8.5 glucose, urine, semiquantitative 3+ Negative ketones, urine, by test strip Negative Negative bilirubin, urine Negative Negative Office Visit: Med check 302 - Chemistry cholesterol, target level 200 mg/dL triglyceride, target level 200 mg/dL HDL cholesterol, serum, target level 35 mg/dL LDL target level 100 mg/dL Office Visit: sinusitis - Chemistry cholesterol, target level 200 mg/dL triglyceride, target level 200 mg/dL HDL cholesterol, serum, target level 35 mg/dL LDL target level 100 mg/dL Encounters Code Encounter Date Provider Facility CPT-93968 Level 3 Est. 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 Patient 10:36:08 GREASE MACHINE WORKER Ang Markham MD [facility] CPT-29934 Level 3 Est. Patient 16:27:02 CDT Eri Borges MD PhD [facility] CPT-24595 Level 3 Est. Patient 10:36:43 CDT Octaviano CARBONE [facility] CPT-57901 Level 4 New Patient 08:58:06 CDT Ang Markham MD [facility] Procedures Code Procedure Name Date Entry Date Standard Description CPT-OV Office Visit 16:27:13 CDT CPT-OV Office Visit 16:21:19 CDT CPT-05962 Sono pelvis non OB uterus ovaries cervix 09:37:28 CDT
--- OUTSIDE RECORDS SUMMARY | 2018-12-22 02:58 | XMS REPORT ---
Author Author [facility] Medical Staff Organization [facility] Address [address] [place], [place] [address] Phone [phone] Care Team Providers Care Press Bucker Name Role Phone ALMAS HAWLEY MD PP [phone] Summary purpose TRANSITION OF CARE AUTO GENERATION [...] :44 Oxygen no :39 Temp >100.4 no :44 Temp <96.8 no :44 Chills with rigors [...]
--- OUTSIDE RECORDS SUMMARY | 2018-12-22 02:58 | XMS REPORT | Clinical Summary ---
[...] TAB 1 qODay x 2 doses FLUCONAZOLE 47669615647 No Longer Active Jillina Frazell [employer] Active IBUPROFEN 800 MG TABS 1 tab every 8 hours as needed for pain IBUPROFEN 03394899252 Active Jillina Frazell [employer] Active LEVEMIR FLEXPEN 100 UNIT/ML SOLN 60 units SC at bedtime INSULIN DETEMIR 48182328640 Active Anthony CARBONE Active CEFTIN 500 MG TAB 1 tablet by mouth twice daily for 7 days 07/24 CEFUROXIME AXETIL 79225132353 No Longer Active Anthony CARBONE Active NITROFURANTOIN MACROCRYSTAL 100 MG CAPS 1 capsule PO bid x 7 days NITROFURANTOIN MACROCRYSTAL 43857631411 Active Anthony CARBONE Active ZOLPIDEM TARTRATE 10 MG TABS 1 tab PO at hs ZOLPIDEM TARTRATE 76409406661 Active Anthony CARBONE Active ZOLOFT 50 MG TAB 1 tablet by mouth daily SERTRALINE HCL 99209250804 No Longer Active Anthony CARBONE Active ANUSOL-HC 2.5 % CREAM apply as needed HYDROCORTISONE (RECTAL) 01833312534 No Longer Active Anthony CARBONE Active COLACE 100 MG CAP 1 tab PO BID DOCUSATE SODIUM 53609947514 No Longer Active Anthony CARBONE Active CYCLOBENZAPRINE HCL 5 MG TABS 1/2 to 1 tab PO tid PRN CYCLOBENZAPRINE HCL 93650629046 Active Anthony CARBONE Active TRINESSA (28) 0.18/0.215/0.25 MG-35 MCG TABS 1 po qd as directed NORGESTIM-ETH ESTRAD TRIPHASIC 44916811748 No Longer Active Anthony CARBONE Active [facility] MELATONIN 5 MG TABS 1-2 po qHS PRN Insomnia MELATONIN 68486221065 No Longer Active Anthony CARBONE Active NOVOLOG FLEXPEN 100 UNIT/ML SOPN Take 18 units TID with meals INSULIN ASPART 32074188242 Active Anthony CARBONE Active ACYCLOVIR 400 MG TABS ACYCLOVIR 85567826827 No Longer Active Ang Markham MD Active EMBRACE BLOOD GLUCOSE TEST STRP Test blood sugars 4 times daily and PRN 08/05 GLUCOSE BLOOD 56300780603 Active Ang Markham MD Active HYDROXYZINE HCL 25 MG TABS 1 tab PO tid PRN itching HYDROXYZINE HCL 63886403749 No Longer Active Ang Markham MD Active DIFLUCAN 150 MG TAB 1 qODay x 2 doses FLUCONAZOLE 23949694672 No Longer Active Da Romero APRN Active ACYCLOVIR 400 MG TABS 1 pill twice daily ACYCLOVIR 87080481211 No Longer Active Da Romero APRN Active AZITHROMYCIN 250 MG TABS 2 po qd x 1 day, then 1 po qd x 4 days AZITHROMYCIN 47447090935 No Longer Active Eri Borges MD PhD Active AZITHROMYCIN 250 MG TABS take 2 po day 1 then take1 po days 2-5 AZITHROMYCIN 70471651436 No Longer Active Octaviano CARBONE Active ACYCLOVIR 400 MG TABS 1 po qd ACYCLOVIR 97833266990 No Longer Active Ang Markham MD Active PROZAC 40 MG CAPS 1 cap by mouth at bedtime FLUOXETINE HCL 41511077755 No Longer Active Ang Markham MD Active METFORMIN HCL 1000 MG TABS 1 tablet by mouth twice daily METFORMIN HCL 25237657926 Active Ang Markham MD Active HYDROXYZINE HCL 25 MG TABS 1 tab PO tid PRN itching HYDROXYZINE HCL 25 MG TABS 088554 HYDROXYZINE HCL Inactive [facility] MELATONIN 5 MG TABS 1-2 po qHS PRN Insomnia [facility] MELATONIN 5 MG TABS 993529 MELATONIN Inactive TRINESSA (28) 0.18/0.215/0.25 MG-35 MCG TABS 1 po qd as directed TRINESSA (28) 0.18/0.215/0.25 MG-35 MCG TABS 519995 NORGESTIM-ETH ESTRAD TRIPHASIC Inactive COLACE 100 MG CAP 1 tab PO BID COLACE 100 MG CAP 5622046 DOCUSATE SODIUM Inactive ANUSOL-HC 2.5 % CREAM apply as needed ANUSOL-HC 2.5 % CREAM 427989 HYDROCORTISONE (RECTAL) Inactive ZOLOFT 50 MG TAB 1 tablet by mouth daily ZOLOFT 50 MG TAB 012465 SERTRALINE HCL Inactive CEFTIN 500 MG TAB 1 tablet by mouth twice daily for 7 days 07/24 CEFTIN 500 MG TAB 616878 CEFUROXIME AXETIL Inactive ACYCLOVIR 400 MG TABS 1 po qd ACYCLOVIR 400 MG TABS 19720928 ACYCLOVIR Inactive AZITHROMYCIN 250 MG TABS take 2 po day 1 then take1 po days 2-5 AZITHROMYCIN 250 MG TABS 7491310 AZITHROMYCIN Inactive AZITHROMYCIN 250 MG TABS 2 po qd x 1 day, then 1 po qd x 4 days AZITHROMYCIN 250 MG TABS 0040861 AZITHROMYCIN Inactive ACYCLOVIR 400 MG TABS 1 pill twice daily ACYCLOVIR 400 MG TABS 19720928 ACYCLOVIR Inactive DIFLUCAN 150 MG TAB 1 qODay x 2 doses DIFLUCAN 150 MG TAB 833616 FLUCONAZOLE Inactive ACYCLOVIR 400 MG TABS ACYCLOVIR 400 MG TABS 19720928 ACYCLOVIR Inactive DIFLUCAN 150 MG TAB 1 qODay x 2 doses DIFLUCAN 150 MG TAB 989787 FLUCONAZOLE Inactive Advance Directives Directive Description Start Date PERMISSION TO SHARE Vital Signs Date Name Value Unit Range Description blood pressure, diastolic 80 mm[Hg] BP [place] blood pressure, systolic 116 mm[Hg] BP sys pulse rate E&M 111 /min Heart rate temperature E&M 97.6 [degF] Body temperature weight E&M 130 [lb_av] Weight Measured blood pressure, diastolic 79 mm[Hg] BP [place] [...] Lab Report: CBC W/DIFF, Comp. Metabolic Panel, [facility] - Chemistry sodium, serum 131 mmol/L 341-997 8796/10/27 potassium, serum 4.8 mmol/L 3.5-5.2 chloride, serum [...] Lab Report: CBC W/DIFF, Comp. Metabolic Panel, [facility] - Hematology leukocyte count, blood 9.0 [...] 267 10^3/MM^3 10*3/mm3 142-424 Lab Report: Chlamydia/GC [id number] - Lab chlamydia DNA probe NOT DETECTED NOT DETECTED Lab Report: Chlamydia/GC APTIMA/[id number] - Microbiology Neisseria gonorrhoeae DNA probe NOT [...] Negative Encounters Code Encounter Date Provider Facility CPT-79707 Level 3 Est. Patient 18:48:29 CDT Anthony Whitfield [facility] CPT-59388 Level 3 Est. Patient 12:16:59 CDT Gabriel Hunt DO [facility] CPT-66755 Level 3 Est. Patient 18:57:15 CDT Anthony Whitfield [facility] CPT-06706 Level 3 Est. 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 Patient 10:36:08 CASINO FLOORPERSON Ang Markham MD [facility] CPT-98433 Level 3 Est. Patient 16:27:02 CDT Eri Borges MD PhD [facility] CPT-35417 Level 3 Est. Patient 10:36:43 CDT Octaviano Dempsey [facility] CPT-66637 Level 4 New Patient 08:58:06 CDT Ang Markham MD [facility] Procedures Code Procedure Name Date Entry Date Standard Description CPT-28778 Venipuncture Draw Fee 12:25:15 CDT CPT-54267 Knee 3V 16:48:40 CDT CPT-OV Office Visit 16:27:13 CDT CPT-OV Office Visit 16:21:19 CDT CPT-69232 Sono pelvis non OB uterus ovaries cervix 09:37:28 CDT
--- OUTSIDE RECORDS SUMMARY | 2018-12-22 02:58 | XMS REPORT | Clinical Summary ---
Author Author Admin, ALEXANDER Organization [facility] Address Unknown Phone Unavailable Allergies, [...] 1 tab PO tid PRN CYCLOBENZAPRINE HCL 83942730522 Active Anthony CARBONE Active TRINESSA (28) 0.18/0.215/0.25 MG-35 MCG TABS 1 po qd as directed NORGESTIM-ETH ESTRAD TRIPHASIC 17446846970 No Longer Active Anthony CARBONE Active [facility] MELATONIN 5 MG TABS 1-2 po qHS PRN Insomnia MELATONIN 35198836262 No Longer Active Anthony CARBONE Active NOVOLOG FLEXPEN 100 UNIT/ML SOPN Take 18 units TID with meals INSULIN ASPART 96258059888 Active Rena Barnesum HOOK PULLER Active ACYCLOVIR 400 MG TABS ACYCLOVIR 67383432130 No Longer Active Ang Markham MD Active LEVEMIR FLEXPEN 100 UNIT/ML SOLN 60 units SC at bedtime INSULIN DETEMIR 13232431025 Active Ang Markham MD Active EMBRACE BLOOD GLUCOSE TEST STRP Test blood sugars 4 times daily and PRN 08/05 GLUCOSE BLOOD 78961754444 Active Ang Markham MD Active ZOLOFT 50 MG TAB 1 tablet by mouth daily SERTRALINE HCL 60329556431 Active Ang Markham MD Active HYDROXYZINE HCL 25 MG TABS 1 tab PO tid PRN itching HYDROXYZINE HCL 80874783781 No Longer Active Ang Markham MD Active DIFLUCAN 150 MG TAB 1 qODay x 2 doses FLUCONAZOLE 71246501285 No Longer Active Josephllina Nick REGIONAL ACCOUNT EXECUTIVE Active COLACE 100 MG CAP 1 tab PO BID DOCUSATE SODIUM 29622835918 Active Jillina Franayal REGIONAL ACCOUNT EXECUTIVE Active ANUSOL-HC 2.5 % CREAM apply as needed HYDROCORTISONE (RECTAL) 38642360717 Active Jillina Frazell REGIONAL ACCOUNT EXECUTIVE Active ACYCLOVIR 400 MG TABS 1 pill twice daily ACYCLOVIR 86125630703 No Longer Active Josephllina Wendyl REGIONAL ACCOUNT EXECUTIVE Active AZITHROMYCIN 250 MG TABS 2 po qd x 1 day, then 1 po qd x 4 days AZITHROMYCIN 24398543953 No Longer Active Eri Borges MD PhD Active AZITHROMYCIN 250 MG TABS take 2 po day 1 then take1 po days 2-5 AZITHROMYCIN 42323665076 No Longer Active Octaviano CARBONE Active ACYCLOVIR 400 MG TABS 1 po qd ACYCLOVIR 00309880381 No Longer Active Ang Markham MD Active PROZAC 40 MG CAPS 1 cap by mouth at bedtime FLUOXETINE HCL 22466281237 No Longer Active Ang Markham MD Active METFORMIN HCL 1000 MG TABS 1 tablet by mouth twice daily METFORMIN HCL 47669842482 Active Ang Markham MD Active HYDROXYZINE HCL 25 MG TABS 1 tab PO tid PRN itching HYDROXYZINE HCL 25 MG TABS 644165 HYDROXYZINE HCL Inactive [facility] MELATONIN 5 MG TABS 1-2 po qHS PRN Insomnia [facility] MELATONIN 5 MG TABS 193870 MELATONIN Inactive TRINESSA (28) 0.18/0.215/0.25 MG-35 MCG TABS 1 po qd as directed TRINESSA (28) 0.18/0.215/0.25 MG-35 MCG TABS 310950 NORGESTIM-ETH ESTRAD TRIPHASIC Inactive ACYCLOVIR 400 MG TABS 1 po qd ACYCLOVIR 400 MG TABS 19720928 ACYCLOVIR Inactive AZITHROMYCIN 250 MG TABS take 2 po day 1 then take1 po days 2-5 AZITHROMYCIN 250 MG TABS 2658743 AZITHROMYCIN Inactive AZITHROMYCIN 250 MG TABS 2 po qd x 1 day, then 1 po qd x 4 days AZITHROMYCIN 250 MG TABS 9719917 AZITHROMYCIN Inactive ACYCLOVIR 400 MG TABS 1 pill twice daily ACYCLOVIR 400 MG TABS 19720928 ACYCLOVIR Inactive DIFLUCAN 150 MG TAB 1 qODay x 2 doses DIFLUCAN 150 MG TAB 240118 FLUCONAZOLE Inactive ACYCLOVIR 400 MG TABS ACYCLOVIR [...] mg/dL Encounters Code Encounter Date Provider Facility CPT-87153 Level 3 Est. 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 Patient 10:36:08 DENTAL HYGIENIST Ang Markham MD [facility] CPT-07303 Level 3 Est. Patient 16:27:02 CDT Eri Borges MD PhD [facility] CPT-71376 Level 3 Est. Patient 10:36:43 CDT Octaviano CARBONE [facility] CPT-78955 Level 4 New Patient 08:58:06 CDT Ang Markham MD [facility] Procedures Code Procedure Name Date Entry Date Standard Description CPT-86663 Knee 3V 16:48:40 CDT CPT-OV Office Visit 16:27:13 CDT CPT-OV Office Visit 16:21:19 CDT CPT-37539 Sono pelvis non OB uterus ovaries cervix 09:37:28 CDT
--- OUTSIDE RECORDS SUMMARY | 2018-12-22 02:59 | XMS REPORT | Clinical Summary ---
Author Author Admin, ALEXANDER Organization [facility] Address [...] Ang Markham MD CANDIDAL VAGINITIS ICD-112.1 Inactive Agn Markham MD Medication List Medication Instructions Start Date Stop Date Generic Name NDC Status Provider Patient Instruction CEFTIN 500 MG TAB 1 tablet by mouth twice daily for 7 days CEFUROXIME AXETIL 87943269568 Active Gabriel Hunt DO Active CYCLOBENZAPRINE HCL 5 MG TABS 1/2 to 1 tab PO tid PRN CYCLOBENZAPRINE HCL 36072786345 Active Anthony CARBONE Active TRINESSA (28) 0.18/0.215/0.25 MG-35 MCG TABS 1 po qd as directed NORGESTIM-ETH ESTRAD TRIPHASIC 15957983778 No Longer Active Anthony CARBONE Active [facility] MELATONIN 5 MG TABS 1-2 po qHS PRN Insomnia MELATONIN 04054248102 No Longer Active Anthony CARBONE Active NOVOLOG FLEXPEN 100 UNIT/ML SOPN Take 18 units TID with meals INSULIN ASPART 68783128642 Active Rena Barnesum CHIEF CLERK Active ACYCLOVIR 400 MG TABS ACYCLOVIR 67275771067 No Longer Active Ang Markham MD Active LEVEMIR FLEXPEN 100 UNIT/ML SOLN 60 units SC at bedtime INSULIN DETEMIR 77883347565 Active Ang Markham MD Active EMBRACE BLOOD GLUCOSE TEST STRP Test blood sugars 4 times daily and PRN 08/05 GLUCOSE BLOOD 59701428654 Active Ang Markham MD Active ZOLOFT 50 MG TAB 1 tablet by mouth daily SERTRALINE HCL 48388607841 Active Ang Markham MD Active HYDROXYZINE HCL 25 MG TABS 1 tab PO tid PRN itching HYDROXYZINE HCL 71634430506 No Longer Active Ang Markham MD Active DIFLUCAN 150 MG TAB 1 qODay x 2 doses FLUCONAZOLE 78166625145 No Longer Active Jillina Franayal ARTIST'S REPRESENTATIVE Active COLACE 100 MG CAP 1 tab PO BID DOCUSATE SODIUM 80156636849 Active Jillina Frazell ARTIST'S REPRESENTATIVE Active ANUSOL-HC 2.5 % CREAM apply as needed HYDROCORTISONE (RECTAL) 76719444890 Active Jillina Frazell ARTIST'S REPRESENTATIVE Active ACYCLOVIR 400 MG TABS 1 pill twice daily ACYCLOVIR 84816697835 No Longer Active Jillina Wendyl ARTIST'S REPRESENTATIVE Active AZITHROMYCIN 250 MG TABS 2 po qd x 1 day, then 1 po qd x 4 days AZITHROMYCIN 41402851526 No Longer Active Eri Borges MD PhD Active AZITHROMYCIN 250 MG TABS take 2 po day 1 then take1 po days 2-5 AZITHROMYCIN 20085251393 No Longer Active Octaviano CARBONE Active ACYCLOVIR 400 MG TABS 1 po qd ACYCLOVIR 61398435336 No Longer Active Ang Markham MD Active PROZAC 40 MG CAPS 1 cap by mouth at bedtime FLUOXETINE HCL 71752450690 No Longer Active Ang Markham MD Active METFORMIN HCL 1000 MG TABS 1 tablet by mouth twice daily METFORMIN HCL 21711226695 Active Ang Markham MD Active HYDROXYZINE HCL 25 MG TABS 1 tab PO tid PRN itching HYDROXYZINE HCL 25 MG TABS 633460 HYDROXYZINE HCL Inactive [facility] MELATONIN 5 MG TABS 1-2 po qHS PRN Insomnia [facility] MELATONIN 5 MG TABS 651949 MELATONIN Inactive TRINESSA (28) 0.18/0.215/0.25 MG-35 MCG TABS 1 po qd as directed TRINESSA (28) 0.18/0.215/0.25 MG-35 MCG TABS 594967 NORGESTIM-ETH ESTRAD TRIPHASIC Inactive ACYCLOVIR 400 MG TABS 1 po qd ACYCLOVIR 400 MG TABS 19720928 ACYCLOVIR Inactive AZITHROMYCIN 250 MG TABS take 2 po day 1 then take1 po days 2-5 AZITHROMYCIN 250 MG TABS 4196294 AZITHROMYCIN Inactive AZITHROMYCIN 250 MG TABS 2 po qd x 1 day, then 1 po qd x 4 days AZITHROMYCIN 250 MG TABS 9015325 AZITHROMYCIN Inactive ACYCLOVIR 400 MG TABS 1 pill twice daily ACYCLOVIR 400 MG TABS 19720928 ACYCLOVIR Inactive DIFLUCAN 150 MG TAB 1 qODay x 2 doses DIFLUCAN 150 MG TAB 451956 FLUCONAZOLE Inactive ACYCLOVIR 400 MG TABS ACYCLOVIR [...] mg/dL Encounters Code Encounter Date Provider Facility CPT-05520 Level 3 Est. Patient 12:16:59 CDT Gabriel Hunt DO [facility] CPT-56678 Level 3 Est. Patient 18:57:15 CDT Anthony CARBONE [facility] CPT-36706 Level 3 Est. 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 Patient 16:27:02 CDT Eri Borges MD PhD [facility] CPT-33326 Level 3 Est. Patient 10:36:[address] [facility] CPT-72535 Level 4 New Patient 08:58:06 CDT Ang Markham MD [facility] Procedures Code Procedure Name Date Entry Date Standard Description CPT-39180 Knee 3V 16:48:40 CDT CPT-OV Office Visit 16:27:13 CDT CPT-OV Office Visit 16:21:19 CDT CPT-33840 Sono pelvis non OB uterus ovaries cervix 09:37:28 CDT
--- OUTSIDE RECORDS SUMMARY | 2018-12-22 02:59 | XMS REPORT ---
Author Author [facility] Medical Staff Organization [facility] Address [address] [place] [id number] Phone [phone] Care Team Providers Care Electrician Deck Name Role Phone MARLEEN ROSALES, ALMAS PP [phone] Summary purpose TRANSITION OF CARE AUTO GENERATION [...] Value Date Respiration Rate 18breaths per minute :05 Pulse 90beats per minute :05 Oxygen Saturation 99% :05 BP Systolic 113mmHg :05 BP Diastolic 86mmHg :05 Temperature 97.8F :05 Height 62inches :05 Weight 135LB :05 Social history Type Value Smoking Status CURRENT EVERY DAY SMOKER Treatment Plan No treatment plan text is available for this visit. Hospital discharge instructions Dismissal Condition fair Disposition on DC home DC Inst/Educ Give yes Med/Side Effects Rev yes
--- OUTSIDE RECORDS SUMMARY | 2018-12-22 02:59 | XMS REPORT | Clinical Summary ---
Author Author Admin, ALEXANDER Organization [facility] Address Unknown Phone Unavailable Allergies, Adverse Reactions, [...] TAB 1 qODay x 2 doses FLUCONAZOLE 43672030503 No Longer Active Jillina Frazell CLINICAL LAB SPECIALIST Active IBUPROFEN 800 MG TABS 1 tab every 8 hours as needed for pain IBUPROFEN 73920836072 Active Jillina Frazell CLINICAL LAB SPECIALIST Active LEVEMIR FLEXPEN 100 UNIT/ML SOLN 60 units SC at bedtime INSULIN DETEMIR 32952866273 Active Anthony CARBONE Active CEFTIN 500 MG TAB 1 tablet by mouth twice daily for 7 days 07/24 CEFUROXIME AXETIL 12431185387 No Longer Active Anthony CARBONE Active NITROFURANTOIN MACROCRYSTAL 100 MG CAPS 1 capsule PO bid x 7 days NITROFURANTOIN MACROCRYSTAL 99547546838 Active Anthony CARBONE Active ZOLPIDEM TARTRATE 10 MG TABS 1 tab PO at hs ZOLPIDEM TARTRATE 71291917793 Active Anthony CARBONE Active ZOLOFT 50 MG TAB 1 tablet by mouth daily SERTRALINE HCL 46987256249 No Longer Active Anthony CARBONE Active ANUSOL-HC 2.5 % CREAM apply as needed HYDROCORTISONE (RECTAL) 50841020567 No Longer Active Anthony CARBONE Active COLACE 100 MG CAP 1 tab PO BID DOCUSATE SODIUM 68316968435 No Longer Active Anthony CARBONE Active CYCLOBENZAPRINE HCL 5 MG TABS 1/2 to 1 tab PO tid PRN CYCLOBENZAPRINE HCL 94741962157 Active Anthony CARBONE Active TRINESSA (28) 0.18/0.215/0.25 MG-35 MCG TABS 1 po qd as directed NORGESTIM-ETH ESTRAD TRIPHASIC 06274577586 No Longer Active Anthony CARBONE Active [facility] MELATONIN 5 MG TABS 1-2 po qHS PRN Insomnia MELATONIN 48006518411 No Longer Active Anthony CARBONE Active NOVOLOG FLEXPEN 100 UNIT/ML SOPN Take 18 units TID with meals INSULIN ASPART 44641043594 Active Anthony CARBONE Active ACYCLOVIR 400 MG TABS ACYCLOVIR 02337828202 No Longer Active Ang Markham MD Active EMBRACE BLOOD GLUCOSE TEST STRP Test blood sugars 4 times daily and PRN 08/05 GLUCOSE BLOOD 78973561501 Active Ang Markham MD Active HYDROXYZINE HCL 25 MG TABS 1 tab PO tid PRN itching HYDROXYZINE HCL 52983706723 No Longer Active Ang Markham MD Active DIFLUCAN 150 MG TAB 1 qODay x 2 doses FLUCONAZOLE 96822623098 No Longer Active Da Romero APRN Active ACYCLOVIR 400 MG TABS 1 pill twice daily ACYCLOVIR 17637796769 No Longer Active Da Romero APRN Active AZITHROMYCIN 250 MG TABS 2 po qd x 1 day, then 1 po qd x 4 days AZITHROMYCIN 22779374557 No Longer Active Eri Borges MD PhD Active AZITHROMYCIN 250 MG TABS take 2 po day 1 then take1 po days 2-5 AZITHROMYCIN 85119290139 No Longer Active Octaviano CARBONE Active ACYCLOVIR 400 MG TABS 1 po qd ACYCLOVIR 53168628381 No Longer Active Ang Markham MD Active PROZAC 40 MG CAPS 1 cap by mouth at bedtime FLUOXETINE HCL 69531981657 No Longer Active Ang Marhkam MD Active METFORMIN HCL 1000 MG TABS 1 tablet by mouth twice daily METFORMIN HCL 40380930574 Active Ang Markham MD Active HYDROXYZINE HCL 25 MG TABS 1 tab PO tid PRN itching HYDROXYZINE HCL 25 MG TABS 030738 HYDROXYZINE HCL Inactive [facility] MELATONIN 5 MG TABS 1-2 po qHS PRN Insomnia [facility] MELATONIN 5 MG TABS 126377 MELATONIN Inactive TRINESSA (28) 0.18/0.215/0.25 MG-35 MCG TABS 1 po qd as directed TRINESSA (28) 0.18/0.215/0.25 MG-35 MCG TABS 978837 NORGESTIM-ETH ESTRAD TRIPHASIC Inactive COLACE 100 MG CAP 1 tab PO BID COLACE 100 MG CAP 1990894 DOCUSATE SODIUM Inactive ANUSOL-HC 2.5 % CREAM apply as needed ANUSOL-HC 2.5 % CREAM 099941 HYDROCORTISONE (RECTAL) Inactive ZOLOFT 50 MG TAB 1 tablet by mouth daily ZOLOFT 50 MG TAB 265149 SERTRALINE HCL Inactive CEFTIN 500 MG TAB 1 tablet by mouth twice daily for 7 days 07/24 CEFTIN 500 MG TAB 832725 CEFUROXIME AXETIL Inactive ACYCLOVIR 400 MG TABS 1 po qd ACYCLOVIR 400 MG TABS 19720928 ACYCLOVIR Inactive AZITHROMYCIN 250 MG TABS take 2 po day 1 then take1 po days 2-5 AZITHROMYCIN 250 MG TABS 5823973 AZITHROMYCIN Inactive AZITHROMYCIN 250 MG TABS 2 po qd x 1 day, then 1 po qd x 4 days AZITHROMYCIN 250 MG TABS 4287847 AZITHROMYCIN Inactive ACYCLOVIR 400 MG TABS 1 pill twice daily ACYCLOVIR 400 MG TABS 19720928 ACYCLOVIR Inactive DIFLUCAN 150 MG TAB 1 qODay x 2 doses DIFLUCAN 150 MG TAB 072135 FLUCONAZOLE Inactive ACYCLOVIR 400 MG TABS ACYCLOVIR 400 MG TABS 19720928 ACYCLOVIR Inactive DIFLUCAN 150 MG TAB 1 qODay x 2 doses DIFLUCAN 150 MG TAB 005218 FLUCONAZOLE Inactive Advance Directives Directive Description Start Date PERMISSION TO SHARE Vital Signs Date Name Value Unit Range Description blood pressure, diastolic 79 mm[Hg] BP [place] blood pressure, systolic 110 mm[Hg] BP sys pulse rate E&M 105 /min Heart rate temperature E&M 9.9 [degF] Body temperature weight E&M 132.8 [lb_av] Weight Measured blood pressure, diastolic 82 mm[Hg] BP [place] blood pressure, systolic 121 mm[Hg] BP sys pulse rate E&M 106 /min Heart rate temperature E&M 98.6 [degF] Body temperature weight E&M 131 [lb_av] Weight Measured Diagnostic Results Date Name Value Unit Range Description Lab Report: CBC W/DIFF, Comp. Metabolic Panel, HGBA1C - Chemistry sodium, serum 131 mmol/L 446-730 0225/10/27 potassium, serum 4.8 mmol/L 3.5-5.2 chloride, serum [...] Lab Report: CBC W/DIFF, Comp. Metabolic Panel, [facility] - Hematology leukocyte count, blood 9.0 [...] 267 10^3/MM^3 10*3/mm3 142-424 Lab Report: Chlamydia/GC APTIMA/[id number] - Lab chlamydia DNA probe NOT DETECTED NOT DETECTED Lab Report: Chlamydia/GC APTIMA/[id number] - Microbiology Neisseria gonorrhoeae DNA probe NOT [...] Negative Encounters Code Encounter Date Provider Facility CPT-09782 Level 3 Est. Patient 18:48:29 CDT Anthony [facility] CPT-74596 Level 3 Est. Patient 12:16:59 CDT Gabriel Hunt DO [facility] CPT-96395 Level 3 Est. Patient 18:57:15 CDT Anthony [facility] CPT-99175 Level 3 Est. Patient 13:59:22 LOW VOLTAGE TECHNICIAN Ang Markham MD [facility] CPT-26312 Level 4 Est. Patient 10:36:08 LOW VOLTAGE TECHNICIAN Ang Markham MD [facility] CPT-44008 Level 3 Est. Patient 16:27:02 CDT Eri Borges MD PhD [facility] CPT-85061 Level 3 Est. Patient 10:36:43 CDT Octaviano Dempsey [facility] CPT-79816 Level 4 New Patient 08:58:06 CDT Ang Markham MD [facility] Procedures Code Procedure Name Date Entry Date Standard Description CPT-24440 Venipuncture Draw Fee 12:25:15 CDT CPT-04051 Knee 3V 16:48:40 CDT CPT-OV Office Visit 16:27:13 CDT CPT-OV Office Visit 16:21:19 CDT CPT-38260 Sono pelvis non OB uterus ovaries cervix 09:37:28 CDT
--- OUTSIDE RECORDS SUMMARY | 2018-12-22 03:00 | XMS REPORT | Clinical Summary ---
Author Author Admin, ALEXANDER Organization [facility] Address Unknown Phone Unavailable Allergies, Adverse Reactions, Alerts Allergy Name Reaction Description Start Date Severity Status Provider PENICILLIN Critical Active Ang Markhma MD Conditions or Problems Problem Name Problem [...] twice daily for 7 days CEFUROXIME AXETIL 30019248360 Active Gabriel Hunt DO Active CYCLOBENZAPRINE HCL 5 MG TABS 1/2 to 1 tab PO tid PRN CYCLOBENZAPRINE HCL 59303174489 Active Anthony CARBONE Active TRINESSA (28) 0.18/0.215/0.25 MG-35 MCG TABS 1 po qd as directed NORGESTIM-ETH ESTRAD TRIPHASIC 92638532476 No Longer Active Anthony CARBONE Active [facility] MELATONIN 5 MG TABS 1-2 po qHS PRN Insomnia MELATONIN 62968355139 No Longer Active Anthony CARBONE Active NOVOLOG FLEXPEN 100 UNIT/ML SOPN Take 18 units TID with meals INSULIN ASPART 65477961186 Active Rena Barnesum MAGICIAN/ILLUSIONIST Active ACYCLOVIR 400 MG TABS ACYCLOVIR 20373414995 No Longer Active Ang Markham MD Active LEVEMIR FLEXPEN 100 UNIT/ML SOLN 60 units SC at bedtime INSULIN DETEMIR 52779407450 Active Ang Markham MD Active EMBRACE BLOOD GLUCOSE TEST STRP Test blood sugars 4 times daily and PRN 08/05 GLUCOSE BLOOD 80700147354 Active Ang Markham MD Active ZOLOFT 50 MG TAB 1 tablet by mouth daily SERTRALINE HCL 77330281054 Active Ang Markham MD Active HYDROXYZINE HCL 25 MG TABS 1 tab PO tid PRN itching HYDROXYZINE HCL 25414242889 No Longer Active Ang Markham MD Active DIFLUCAN 150 MG TAB 1 qODay x 2 doses FLUCONAZOLE 46820945406 No Longer Active Jillina Franayal MEDICARE BILLER Active COLACE 100 MG CAP 1 tab PO BID DOCUSATE SODIUM 63261646559 Active Jillina Frazell MEDICARE BILLER Active ANUSOL-HC 2.5 % CREAM apply as needed HYDROCORTISONE (RECTAL) 09205595367 Active Jillina Frazell MEDICARE BILLER Active ACYCLOVIR 400 MG TABS 1 pill twice daily ACYCLOVIR 63132986095 No Longer Active Jillina Wendyl MEDICARE BILLER Active AZITHROMYCIN 250 MG TABS 2 po qd x 1 day, then 1 po qd x 4 days AZITHROMYCIN 31279400933 No Longer Active Eri Borges MD PhD Active AZITHROMYCIN 250 MG TABS take 2 po day 1 then take1 po days 2-5 AZITHROMYCIN 39922388092 No Longer Active Octaviano CARBONE Active ACYCLOVIR 400 MG TABS 1 po qd ACYCLOVIR 19798254466 No Longer Active Ang Markham MD Active PROZAC 40 MG CAPS 1 cap by mouth at bedtime FLUOXETINE HCL 46656889199 No Longer Active Ang Markham MD Active METFORMIN HCL 1000 MG TABS 1 tablet by mouth twice daily METFORMIN HCL 82391791812 Active Ang Markham MD Active HYDROXYZINE HCL 25 MG TABS 1 tab PO tid PRN itching HYDROXYZINE HCL 25 MG TABS 940953 HYDROXYZINE HCL Inactive [facility] MELATONIN 5 MG TABS 1-2 po qHS PRN Insomnia [facility] MELATONIN 5 MG TABS 475475 MELATONIN Inactive TRINESSA (28) 0.18/0.215/0.25 MG-35 MCG TABS 1 po qd as directed TRINESSA (28) 0.18/0.215/0.25 MG-35 MCG TABS 990974 NORGESTIM-ETH ESTRAD TRIPHASIC Inactive ACYCLOVIR 400 MG TABS 1 po qd ACYCLOVIR 400 MG TABS 19720928 ACYCLOVIR Inactive AZITHROMYCIN 250 MG TABS take 2 po day 1 then take1 po days 2-5 AZITHROMYCIN 250 MG TABS 2057514 AZITHROMYCIN Inactive AZITHROMYCIN 250 MG TABS 2 po qd x 1 day, then 1 po qd x 4 days AZITHROMYCIN 250 MG TABS 0990752 AZITHROMYCIN Inactive ACYCLOVIR 400 MG TABS 1 pill twice daily ACYCLOVIR 400 MG TABS 19720928 ACYCLOVIR Inactive DIFLUCAN 150 MG TAB 1 qODay x 2 doses DIFLUCAN 150 MG TAB 183815 FLUCONAZOLE Inactive ACYCLOVIR 400 MG TABS ACYCLOVIR [...] mg/dL Encounters Code Encounter Date Provider Facility CPT-86830 Level 3 Est. Patient 12:16:59 CDT Gabriel Hunt DO [facility] CPT-78203 Level 3 Est. Patient 18:57:15 CDT Anthony Whitfield [facility] CPT-18234 Level 3 Est. Patient 13:59:22 MATERIALS DEVELOPMENT ENGINEER Ang Markham MD [facility] CPT-53328 Level 4 Est. Patient 10:36:08 MATERIALS DEVELOPMENT ENGINEER Ang Markham MD [facility] CPT-49565 Level 3 Est. Patient 16:27:02 CDT Eri Borges MD PhD [facility] CPT-25344 Level 3 Est. Patient 10:36:43 CDT Octaviano Dempsey [facility] CPT-07439 Level 4 New Patient 08:58:06 CDT Ang Markham MD [facility] Procedures Code Procedure Name Date Entry Date Standard Description CPT-13391 Knee 3V 16:48:40 CDT CPT-OV Office Visit 16:27:13 CDT CPT-OV Office Visit 16:21:19 CDT CPT-54014 Sono pelvis non OB uterus ovaries cervix 09:37:28 CDT
--- OUTSIDE RECORDS SUMMARY | 2018-12-22 03:00 | XMS REPORT | Clinical Summary ---
Author Author Admin, ALEXANDER Organization [facility] Address Unknown Phone Unavailable Allergies, Adverse [...] TAB 1 qODay x 2 doses FLUCONAZOLE 39917009498 No Longer Active Jillina Frazell MEDICAL INTERN Active IBUPROFEN 800 MG TABS 1 tab every 8 hours as needed for pain IBUPROFEN 80751447596 Active Jillina Frazell MEDICAL INTERN Active LEVEMIR FLEXPEN 100 UNIT/ML SOLN 60 units SC at bedtime INSULIN DETEMIR 93339654448 Active Anthony CARBONE Active CEFTIN 500 MG TAB 1 tablet by mouth twice daily for 7 days 07/24 CEFUROXIME AXETIL 84359828856 No Longer Active Anthony CARBONE Active NITROFURANTOIN MACROCRYSTAL 100 MG CAPS 1 capsule PO bid x 7 days NITROFURANTOIN MACROCRYSTAL 23482132062 Active Anthony CARBONE Active ZOLPIDEM TARTRATE 10 MG TABS 1 tab PO at hs ZOLPIDEM TARTRATE 35371087201 Active Anthony CARBONE Active ZOLOFT 50 MG TAB 1 tablet by mouth daily SERTRALINE HCL 69133612938 No Longer Active Anthony CARBONE Active ANUSOL-HC 2.5 % CREAM apply as needed HYDROCORTISONE (RECTAL) 12152805969 No Longer Active Anthony CARBONE Active COLACE 100 MG CAP 1 tab PO BID DOCUSATE SODIUM 72280063625 No Longer Active Anthony CARBONE Active CYCLOBENZAPRINE HCL 5 MG TABS 1/2 to 1 tab PO tid PRN CYCLOBENZAPRINE HCL 19038445075 Active Anthony CARBONE Active TRINESSA (28) 0.18/0.215/0.25 MG-35 MCG TABS 1 po qd as directed NORGESTIM-ETH ESTRAD TRIPHASIC 29994270013 No Longer Active Anthony CARBONE Active [facility] MELATONIN 5 MG TABS 1-2 po qHS PRN Insomnia MELATONIN 00122702322 No Longer Active Anthony CARBONE Active NOVOLOG FLEXPEN 100 UNIT/ML SOPN Take 18 units TID with meals INSULIN ASPART 56602797602 Active Anthony CARBONE Active ACYCLOVIR 400 MG TABS ACYCLOVIR 36967859919 No Longer Active Ang Markham MD Active EMBRACE BLOOD GLUCOSE TEST STRP Test blood sugars 4 times daily and PRN 08/05 GLUCOSE BLOOD 75882516117 Active Ang Markham MD Active HYDROXYZINE HCL 25 MG TABS 1 tab PO tid PRN itching HYDROXYZINE HCL 04953248041 No Longer Active Ang Markham MD Active DIFLUCAN 150 MG TAB 1 qODay x 2 doses FLUCONAZOLE 21804227853 No Longer Active Da Romero APRN Active ACYCLOVIR 400 MG TABS 1 pill twice daily ACYCLOVIR 36575394952 No Longer Active Da Romero APRN Active AZITHROMYCIN 250 MG TABS 2 po qd x 1 day, then 1 po qd x 4 days AZITHROMYCIN 88531839109 No Longer Active Eri Borges MD PhD Active AZITHROMYCIN 250 MG TABS take 2 po day 1 then take1 po days 2-5 AZITHROMYCIN 21149806631 No Longer Active Octaviano CARBONE Active ACYCLOVIR 400 MG TABS 1 po qd ACYCLOVIR 34850442025 No Longer Active Ang Markham MD Active PROZAC 40 MG CAPS 1 cap by mouth at bedtime FLUOXETINE HCL 20513379056 No Longer Active Ang Markham MD Active METFORMIN HCL 1000 MG TABS 1 tablet by mouth twice daily METFORMIN HCL 31230363693 Active Ang Markham MD Active HYDROXYZINE HCL 25 MG TABS 1 tab PO tid PRN itching HYDROXYZINE HCL 25 MG TABS 262061 HYDROXYZINE HCL Inactive [facility] MELATONIN 5 MG TABS 1-2 po qHS PRN Insomnia [facility] MELATONIN 5 MG TABS 485621 MELATONIN Inactive TRINESSA (28) 0.18/0.215/0.25 MG-35 MCG TABS 1 po qd as directed TRINESSA (28) 0.18/0.215/0.25 MG-35 MCG TABS 007122 NORGESTIM-ETH ESTRAD TRIPHASIC Inactive COLACE 100 MG CAP 1 tab PO BID COLACE 100 MG CAP 9034568 DOCUSATE SODIUM Inactive ANUSOL-HC 2.5 % CREAM apply as needed ANUSOL-HC 2.5 % CREAM 770049 HYDROCORTISONE (RECTAL) Inactive ZOLOFT 50 MG TAB 1 tablet by mouth daily ZOLOFT 50 MG TAB 085059 SERTRALINE HCL Inactive CEFTIN 500 MG TAB 1 tablet by mouth twice daily for 7 days 07/24 CEFTIN 500 MG TAB 826887 CEFUROXIME AXETIL Inactive ACYCLOVIR 400 MG TABS 1 po qd ACYCLOVIR 400 MG TABS 19720928 ACYCLOVIR Inactive AZITHROMYCIN 250 MG TABS take 2 po day 1 then take1 po days 2-5 AZITHROMYCIN 250 MG TABS 4141955 AZITHROMYCIN Inactive AZITHROMYCIN 250 MG TABS 2 po qd x 1 day, then 1 po qd x 4 days AZITHROMYCIN 250 MG TABS 9554457 AZITHROMYCIN Inactive ACYCLOVIR 400 MG TABS 1 pill twice daily ACYCLOVIR 400 MG TABS 19720928 ACYCLOVIR Inactive DIFLUCAN 150 MG TAB 1 qODay x 2 doses DIFLUCAN 150 MG TAB 446097 FLUCONAZOLE Inactive ACYCLOVIR 400 MG TABS ACYCLOVIR 400 MG TABS 19720928 ACYCLOVIR Inactive DIFLUCAN 150 MG TAB 1 qODay x 2 doses DIFLUCAN 150 MG TAB 995488 FLUCONAZOLE Inactive Advance Directives Directive Description Start [...] HGBA1C - Chemistry sodium, serum 131 mmol/L 946-244 9999/10/27 potassium, serum 4.8 mmol/L 3.5-5.2 chloride, serum [...] Lab Report: CBC W/DIFF, Comp. Metabolic Panel, [facility] - Hematology leukocyte count, blood [...] 267 10^3/MM^3 10*3/mm3 142-424 Lab Report: Chlamydia/GC APTIMA/[id number] - Lab chlamydia DNA probe NOT DETECTED NOT DETECTED Lab Report: Chlamydia/GC APTIMA/[id number] - Microbiology Neisseria gonorrhoeae DNA probe NOT [...] Negative Encounters Code Encounter Date Provider Facility CPT-01264 Level 3 Est. Patient 18:48:29 CDT Anthony Whitfield [facility] CPT-30538 Level 3 Est. Patient 12:16:59 CDT Gabriel Hunt DO [facility] CPT-35450 Level 3 Est. Patient 18:57:15 CDT Anthony Whitfield [facility] CPT-46495 Level 3 Est. Patient 13:59:22 FOOD SERVICE MANAGER Ang Markham MD [facility] CPT-98248 Level 4 Est. Patient 10:36:08 FOOD SERVICE MANAGER Ang Markham MD [facility] CPT-75254 Level 3 Est. Patient 16:27:02 CDT Eri Borges MD PhD [facility] CPT-83929 Level 3 Est. Patient 10:36:43 CDT Octaviano Dempsey [facility] CPT-04168 Level 4 New Patient 08:58:06 CDT Ang Markham MD [facility] Procedures Code Procedure Name Date Entry Date Standard Description CPT-78756 Venipuncture Draw Fee 12:25:15 CDT CPT-24087 Knee 3V 16:48:40 CDT CPT-OV Office Visit 16:27:13 CDT CPT-OV Office Visit 16:21:19 CDT CPT-16557 Sono pelvis non OB uterus ovaries cervix 09:37:28 CDT
--- OUTSIDE RECORDS SUMMARY | 2018-12-22 03:01 | XMS REPORT ---
Author Author [facility] Medical Staff Organization [facility] Address [address], [place] [address] Phone [phone] Care Team Providers Care Cassandra Developer Name Role Phone ALMAS HAWLEY MD PP [phone] Summary purpose TRANSITION OF CARE AUTO GENERATION Chief Complaint and Reason for Visit Admit Diagnosis 1 JOINT PAIN-L/LEG Problem list No authorized problems tracked for [...] tests and/or laboratory data RESULTS Radiology Results [id number]:25:00 KNEE XRAY - 2 VIEW PACs Image DATE OF EXAM: Jul 10 2014 RAD 0946-KNEE XRAY-2 VIEW- RIGHT: RADIOLOGY REPORT DATE OF SERVICE:07/10/14 HISTORY:Patient has painful knee. RIGHT KNEE 2 VIEWS 0930 HOURS AP and sunrise views of the patellofemoral joint were performed on the lateral view. These are weightbearing concerning the AP view. The joint space is mildly narrowed medially.The bony structures are normal. Patellofemoral joint appears normal. IMPRESSION:Minimal narrowing of the medial joint space. Otherwise negative limited study. Reta Beckford DO MW/pb 07/10/2014 10:00:00 / 07/10/2014 10:42:46 cc:Carlota Bales PA-C This document has been electronically Signed by: On: DATE OF EXAM: Jul 10 2014 RAD 0946-KNEE XRAY-2 VIEW- RIGHT: RADIOLOGY REPORT DATE OF SERVICE:07/10/14 HISTORY:Patient has painful knee. RIGHT KNEE 2 VIEWS 0930 HOURS AP and sunrise views of the patellofemoral joint were performed on the lateral view. These are weightbearing concerning the AP view. The joint space is mildly narrowed medially.The bony structures are normal. Patellofemoral joint appears normal. IMPRESSION:Minimal narrowing of the medial joint space. Otherwise negative limited study. DO ANTONIETTA Okeefe/anne marie 07/10/2014 10:00: / 07/10/2014 10:42:46 cc:Carlota Bales PA-C This document has been electronically Signed by: On: DATE OF EXAM: Jul 10 2014 RAD 0946-KNEE XRAY-2 VIEW- RIGHT: RADIOLOGY REPORT DATE OF SERVICE:07/10/14 HISTORY:Patient has painful knee. RIGHT KNEE 2 VIEWS 0930 HOURS AP and sunrise views of the patellofemoral joint were performed on the lateral view. These are weightbearing concerning the AP view. The joint space is mildly narrowed medially.The bony structures are normal. Patellofemoral joint appears normal. IMPRESSION:Minimal narrowing of the medial joint space. Otherwise negative limited study. DO ANTONIETTA Okeefe/anne marie 07/10/2014 10:00:07/10/2014 10:42:46 cc:Carlota Bales PA-C This document has been electronically Signed by: RETA BECKFORD DO On: Jul 10 2014 12:25P Result Amended on 2014-07-10 at 11:08:13. Previous status was MS. Result Amended on 2014-07-10 at 12:25:31. Previous status was MS. KNEE XRAY - 2 VIEW PACs Image DATE OF EXAM: Jul 10 2014 RAD 0946-KNEE XRAY-2 VIEW- LEFT: RADIOLOGY REPORT DATE OF SERVICE:07/10/14 HISTORY:Patient has pain. LEFT KNEE 2 VIEWS 0930 HOURS AP and sunrise views of the knee were performed. Joint space is maintained. No bony or soft tissue abnormality is seen. Patellofemoral joint is unremarkable. IMPRESSION:Negative study. DO ANTONIETTA Okeefe/anne marie 07/10/2014 10:00: / 07/10/2014 10:44:45 cc:Carlota Bales PA-C This document has been electronically Signed by: On: DATE OF EXAM: Jul 10 2014 RAD 0946-KNEE XRAY-2 VIEW- LEFT: RADIOLOGY REPORT DATE OF SERVICE:07/10/14 HISTORY:Patient has pain. LEFT KNEE 2 VIEWS 0930 HOURS AP and sunrise views of the knee were performed. Joint space is maintained. No bony or soft tissue abnormality is seen. Patellofemoral joint is unremarkable. IMPRESSION:Negative study. DO Joe Okeefe 07/10/2014 10:00: / 07/10/2014 10:44:45 cc:Carlota Bales PA-C This document has been electronically Signed by: On: DATE OF EXAM: Jul 10 2014 RAD 0946-KNEE XRAY-2 VIEW- LEFT: RADIOLOGY REPORT DATE OF SERVICE:07/10/14 HISTORY:Patient has pain. LEFT KNEE 2 VIEWS 0930 HOURS AP and sunrise views of the knee were performed. Joint space is maintained. No bony or soft tissue abnormality is seen. Patellofemoral joint is unremarkable. IMPRESSION:Negative study. DO ANTONIETTA Okeefe/anne marie 07/10/2014 10:00: / 07/10/2014 10:44:45 cc:Carlota Bales PA-C This document has been electronically Signed by: RETA BECKFORD DO On: Jul 10 2014 12:25P Result Amended on 2014-07-10 at 11:08:41. Previous status was MS. Result Amended on 2014-07-10 at 12:25:33. Previous status was MS. History of procedures Procedure Code Code Type Description Date Performed Performing Physician [id number] CPT-4 X-RAY EXAM OF KNEE, 1 OR 2 07-10-2014 CARLOTA BALES 51423 CPT-4 X-RAY EXAM OF KNEE, 1 OR 2 07-10-2014 CARLOTA BALES Functional status No functional or cognitive status [...]
--- OUTSIDE RECORDS SUMMARY | 2018-12-22 03:01 | XMS REPORT | Clinical Summary ---
Author Author Admin, ALEXANDER Organization [facility] Address Unknown Phone Unavailable Allergies, [...] TAB 1 qODay x 2 doses FLUCONAZOLE [id number] No Longer Active Jillina Frazell SURVEY TECHNOLOGIST Active IBUPROFEN 800 MG TABS 1 tab every 8 hours as needed for pain IBUPROFEN 96312327717 Active Jillina Frazell SURVEY TECHNOLOGIST Active LEVEMIR FLEXPEN 100 UNIT/ML SOLN 60 units SC at bedtime INSULIN DETEMIR 92731858608 Active Anthony CARBONE Active CEFTIN 500 MG TAB 1 tablet by mouth twice daily for 7 days 07/24 CEFUROXIME AXETIL 92653628225 No Longer Active Anthony CARBONE Active NITROFURANTOIN MACROCRYSTAL 100 MG CAPS 1 capsule PO bid x 7 days NITROFURANTOIN MACROCRYSTAL 93668416537 Active Anthony CARBONE Active ZOLPIDEM TARTRATE 10 MG TABS 1 tab PO at hs ZOLPIDEM TARTRATE 25765133810 Active Anthony CARBONE Active ZOLOFT 50 MG TAB 1 tablet by mouth daily SERTRALINE HCL 45438590909 No Longer Active Anthony CARBONE Active ANUSOL-HC 2.5 % CREAM apply as needed HYDROCORTISONE (RECTAL) 00964281674 No Longer Active Anthony CARBONE Active COLACE 100 MG CAP 1 tab PO BID DOCUSATE SODIUM 56061698585 No Longer Active Anthony CARBONE Active CYCLOBENZAPRINE HCL 5 MG TABS 1/2 to 1 tab PO tid PRN CYCLOBENZAPRINE HCL 21926361278 Active Anthony CARBONE Active TRINESSA (28) 0.18/0.215/0.25 MG-35 MCG TABS 1 po qd as directed NORGESTIM-ETH ESTRAD TRIPHASIC 14225837130 No Longer Active Anthony CARBONE Active [facility] MELATONIN 5 MG TABS 1-2 po qHS PRN Insomnia MELATONIN 65093744771 No Longer Active Anthony CARBONE Active NOVOLOG FLEXPEN 100 UNIT/ML SOPN Take 18 units TID with meals INSULIN ASPART 86505739602 Active Anthony CARBONE Active ACYCLOVIR 400 MG TABS ACYCLOVIR 63487169871 No Longer Active Ang Markham MD Active EMBRACE BLOOD GLUCOSE TEST STRP Test blood sugars 4 times daily and PRN 08/05 GLUCOSE BLOOD 91889881528 Active Ang Markham MD Active HYDROXYZINE HCL 25 MG TABS 1 tab PO tid PRN itching HYDROXYZINE HCL 98701945672 No Longer Active Ang Markham MD Active DIFLUCAN 150 MG TAB 1 qODay x 2 doses FLUCONAZOLE 59072795454 No Longer Active Da Romero APRN Active ACYCLOVIR 400 MG TABS 1 pill twice daily ACYCLOVIR 39165425469 No Longer Active Da Romero APRN Active AZITHROMYCIN 250 MG TABS 2 po qd x 1 day, then 1 po qd x 4 days AZITHROMYCIN 31636540723 No Longer Active Eri Borges MD PhD Active AZITHROMYCIN 250 MG TABS take 2 po day 1 then take1 po days 2-5 AZITHROMYCIN 33084781479 No Longer Active Octaviano CARBONE Active ACYCLOVIR 400 MG TABS 1 po qd ACYCLOVIR 34084871133 No Longer Active Ang Markham MD Active PROZAC 40 MG CAPS 1 cap by mouth at bedtime FLUOXETINE HCL 87311812807 No Longer Active Ang Markham MD Active METFORMIN HCL 1000 MG TABS 1 tablet by mouth twice daily METFORMIN HCL 19551619792 Active Ang Markham MD Active HYDROXYZINE HCL 25 MG TABS 1 tab PO tid PRN itching HYDROXYZINE HCL 25 MG TABS 527952 HYDROXYZINE HCL Inactive [facility] MELATONIN 5 MG TABS 1-2 po qHS PRN Insomnia [facility] MELATONIN 5 MG TABS 931794 MELATONIN Inactive TRINESSA (28) 0.18/0.215/0.25 MG-35 MCG TABS 1 po qd as directed TRINESSA (28) 0.18/0.215/0.25 MG-35 MCG TABS 301026 NORGESTIM-ETH ESTRAD TRIPHASIC Inactive COLACE 100 MG CAP 1 tab PO BID COLACE 100 MG CAP 9819953 DOCUSATE SODIUM Inactive ANUSOL-HC 2.5 % CREAM apply as needed ANUSOL-HC 2.5 % CREAM 549245 HYDROCORTISONE (RECTAL) Inactive ZOLOFT 50 MG TAB 1 tablet by mouth daily ZOLOFT 50 MG TAB 309979 SERTRALINE HCL Inactive CEFTIN 500 MG TAB 1 tablet by mouth twice daily for 7 days 07/24 CEFTIN 500 MG TAB 573014 CEFUROXIME AXETIL Inactive ACYCLOVIR 400 MG TABS 1 po qd ACYCLOVIR 400 MG TABS 19720928 ACYCLOVIR Inactive AZITHROMYCIN 250 MG TABS take 2 po day 1 then take1 po days 2-5 AZITHROMYCIN 250 MG TABS 7814733 AZITHROMYCIN Inactive AZITHROMYCIN 250 MG TABS 2 po qd x 1 day, then 1 po qd x 4 days AZITHROMYCIN 250 MG TABS 3515225 AZITHROMYCIN Inactive ACYCLOVIR 400 MG TABS 1 pill twice daily ACYCLOVIR 400 MG TABS 19720928 ACYCLOVIR Inactive DIFLUCAN 150 MG TAB 1 qODay x 2 doses DIFLUCAN 150 MG TAB 111025 FLUCONAZOLE Inactive ACYCLOVIR 400 MG TABS ACYCLOVIR 400 MG TABS 19720928 ACYCLOVIR Inactive DIFLUCAN 150 MG TAB 1 qODay x 2 doses DIFLUCAN 150 MG TAB 214066 FLUCONAZOLE Inactive Advance Directives Directive Description Start [...] HGBA1C - Chemistry sodium, serum 131 mmol/L 053-961 8389/10/27 potassium, serum 4.8 mmol/L 3.5-5.2 chloride, serum [...] Lab Report: CBC W/DIFF, Comp. Metabolic Panel, [facility] - Hematology leukocyte count, blood 9.0 [...] 267 10^3/MM^3 10*3/mm3 142-424 Lab Report: Chlamydia/GC APTIMA/[id number] - Lab chlamydia DNA probe NOT DETECTED NOT DETECTED Lab Report: Chlamydia/GC APTIMA/[id number] - Microbiology Neisseria gonorrhoeae DNA probe NOT [...] Negative Encounters Code Encounter Date Provider Facility CPT-78679 Level 3 Est. Patient 18:48:29 CDT Anthony [facility]field [facility] CPT-41072 Level 3 Est. Patient 12:16:59 CDT Gabriel Hunt DO [facility] CPT-63105 Level 3 Est. Patient 18:57:15 CDT Anthony Whitfield [facility] CPT-29192 Level 3 Est. Patient 13:59:22 FURNITURE DECALS INSPECTOR Ang Markham MD [facility] CPT-29705 Level 4 Est. Patient 10:36:08 FURNITURE DECALS INSPECTOR Ang Markham MD [facility] CPT-19968 Level 3 Est. Patient 16:27:02 CDT Eri Borges MD PhD [facility] CPT-98443 Level 3 Est. Patient 10:36:43 CDT Octaviano Dempsey [facility] CPT-72334 Level 4 New Patient 08:58:06 CDT Ang Markham MD [facility] Procedures Code Procedure Name Date Entry Date Standard Description CPT-46533 Venipuncture Draw Fee 12:25:15 CDT CPT-65433 Knee 3V 16:48:40 CDT CPT-OV Office Visit 16:27:13 CDT CPT-OV Office Visit 16:21:19 CDT CPT-79271 Sono pelvis non OB uterus ovaries cervix 09:37:28 CDT
--- OUTSIDE RECORDS SUMMARY | 2018-12-22 03:01 | XMS REPORT ---
Author Author [facility] Medical Staff Organization [facility] Address [address] [place], [place] [address] Phone [phone] Care Team Providers Care Hydraulic Lift Operator Name Role Phone ALMAS HAWLEY MD PP [phone] Summary purpose TRANSITION OF CARE AUTO GENERATION [...] tests and/or laboratory data RESULTS Routine Urinalysis [id number]:05:00 Result Normal Range Units Color Straw Clarity Clear Specific [place] <=1.005 1.003-1.035 pH 6.5 4.5-8.0 Glucose 3+ Bilirubin NEGATIVE Ketones NEGATIVE Protein NEGATIVE Urobilinogen 0.2 0-0.2 E.U./dL Nitrites NEGATIVE Blood NEGATIVE Leukocytes 1+ Culture Set WBCs 20-30 RBCs 0-5 Squamous Epithelial Few Bacteria Occasional Yeast 2+ Body Fluid [id number]:05:00 Result Normal Range Units pH 6.5 4.5-8.0 History of procedures No procedures recorded for this patient visit. Functional status Functional Status Finding Observation Time Diet regular :21 Abdomen Appearance obese :21 Abdomen soft :21 Bowel Sounds present :21 Urination normal :21 Quality sym/unlabored :21 Cough absent :21 Secretions no :21 Airway natural : Chest Tube no :21 Oxygen no :43 Temp >100.4 no : Temp <96.8 no : Chills with rigors no : HR > 90bpm yes : Respirations > 20 no : Systolic <90 no : headache stiff neck no : Rapid Resp no :21 Nursing Note Pt [...]
--- OUTSIDE RECORDS SUMMARY | 2018-12-22 03:01 | XMS REPORT | Clinical Summary ---
[...] Hunt DO Acute cystitis UTI 599.0 Active lEza WILSON Urinary tract infection, site not specified [...] TAB 1 qODay x 2 doses FLUCONAZOLE 34505264245 No Longer Active Jillina Frazell VETERINARY MEDICAL OFFICER Active IBUPROFEN 800 MG TABS 1 tab every 8 hours as needed for pain IBUPROFEN 80944707793 Active Jillina Frazell VETERINARY MEDICAL OFFICER Active LEVEMIR FLEXPEN 100 UNIT/ML SOLN 60 units SC at bedtime INSULIN DETEMIR 90072138689 Active Anthony CARBONE Active CEFTIN 500 MG TAB 1 tablet by mouth twice daily for 7 days 07/24 CEFUROXIME AXETIL 58782382243 No Longer Active Anthony CARBONE Active NITROFURANTOIN MACROCRYSTAL 100 MG CAPS 1 capsule PO bid x 7 days NITROFURANTOIN MACROCRYSTAL 14774520381 Active Anthony CARBONE Active ZOLPIDEM TARTRATE 10 MG TABS 1 tab PO at hs ZOLPIDEM TARTRATE 37122323721 Active Anthony CARBONE Active ZOLOFT 50 MG TAB 1 tablet by mouth daily SERTRALINE HCL 10246152761 No Longer Active Anthony CARBONE Active ANUSOL-HC 2.5 % CREAM apply as needed HYDROCORTISONE (RECTAL) 37836502280 No Longer Active Anthony CARBONE Active COLACE 100 MG CAP 1 tab PO BID DOCUSATE SODIUM 73921047254 No Longer Active Anthony CARBONE Active CYCLOBENZAPRINE HCL 5 MG TABS 1/2 to 1 tab PO tid PRN CYCLOBENZAPRINE HCL 02589542843 Active Anthony CARBONE Active TRINESSA (28) 0.18/0.215/0.25 MG-35 MCG TABS 1 po qd as directed NORGESTIM-ETH ESTRAD TRIPHASIC 38183898327 No Longer Active Anthony CARBONE Active [facility] MELATONIN 5 MG TABS 1-2 po qHS PRN Insomnia MELATONIN 38719437311 No Longer Active Anthony CARBONE Active NOVOLOG FLEXPEN 100 UNIT/ML SOPN Take 18 units TID with meals INSULIN ASPART 14814414591 Active Anthony CARBONE Active ACYCLOVIR 400 MG TABS ACYCLOVIR 39514295897 No Longer Active Ang Markham MD Active EMBRACE BLOOD GLUCOSE TEST STRP Test blood sugars 4 times daily and PRN 08/05 GLUCOSE BLOOD 66445128632 Active Ang Markham MD Active HYDROXYZINE HCL 25 MG TABS 1 tab PO tid PRN itching HYDROXYZINE HCL 92351232631 No Longer Active Ang Markham MD Active DIFLUCAN 150 MG TAB 1 qODay x 2 doses FLUCONAZOLE 54211709447 No Longer Active Da Romero APRN Active ACYCLOVIR 400 MG TABS 1 pill twice daily ACYCLOVIR 87840160793 No Longer Active Da Romero APRN Active AZITHROMYCIN 250 MG TABS 2 po qd x 1 day, then 1 po qd x 4 days AZITHROMYCIN 86084099441 No Longer Active Eri Borges MD PhD Active AZITHROMYCIN 250 MG TABS take 2 po day 1 then take1 po days 2-5 AZITHROMYCIN 38463672637 No Longer Active Octaviano CARBONE Active ACYCLOVIR 400 MG TABS 1 po qd ACYCLOVIR 49668241933 No Longer Active Ang Markham MD Active PROZAC 40 MG CAPS 1 cap by mouth at bedtime FLUOXETINE HCL 32755889891 No Longer Active Ang Markham MD Active METFORMIN HCL 1000 MG TABS 1 tablet by mouth twice daily METFORMIN HCL 62039927221 Active Ang Markham MD Active HYDROXYZINE HCL 25 MG TABS 1 tab PO tid PRN itching HYDROXYZINE HCL 25 MG TABS 037535 HYDROXYZINE HCL Inactive [facility] MELATONIN 5 MG TABS 1-2 po qHS PRN Insomnia [facility] MELATONIN 5 MG TABS 753370 MELATONIN Inactive TRINESSA (28) 0.18/0.215/0.25 MG-35 MCG TABS 1 po qd as directed TRINESSA (28) 0.18/0.215/0.25 MG-35 MCG TABS 036671 NORGESTIM-ETH ESTRAD TRIPHASIC Inactive COLACE 100 MG CAP 1 tab PO BID COLACE 100 MG CAP 9281019 DOCUSATE SODIUM Inactive ANUSOL-HC 2.5 % CREAM apply as needed ANUSOL-HC 2.5 % CREAM 015791 HYDROCORTISONE (RECTAL) Inactive ZOLOFT 50 MG TAB 1 tablet by mouth daily ZOLOFT 50 MG TAB 816168 SERTRALINE HCL Inactive CEFTIN 500 MG TAB 1 tablet by mouth twice daily for 7 days 07/24 CEFTIN 500 MG TAB 055362 CEFUROXIME AXETIL Inactive ACYCLOVIR 400 MG TABS 1 po qd ACYCLOVIR 400 MG TABS 19720928 ACYCLOVIR Inactive AZITHROMYCIN 250 MG TABS take 2 po day 1 then take1 po days 2-5 AZITHROMYCIN 250 MG TABS 7325350 AZITHROMYCIN Inactive AZITHROMYCIN 250 MG TABS 2 po qd x 1 day, then 1 po qd x 4 days AZITHROMYCIN 250 MG TABS 0895962 AZITHROMYCIN Inactive ACYCLOVIR 400 MG TABS 1 pill twice daily ACYCLOVIR 400 MG TABS 19720928 ACYCLOVIR Inactive DIFLUCAN 150 MG TAB 1 qODay x 2 doses DIFLUCAN 150 MG TAB 651023 FLUCONAZOLE Inactive ACYCLOVIR 400 MG TABS ACYCLOVIR 400 MG TABS 19720928 ACYCLOVIR Inactive DIFLUCAN 150 MG TAB 1 qODay x 2 doses DIFLUCAN 150 MG TAB 679346 FLUCONAZOLE Inactive Advance Directives Directive Description Start [...] Lab Report: CBC W/DIFF, Comp. Metabolic Panel, [facility] - Chemistry sodium, serum 131 mmol/L 618-051 0790/10/27 potassium, serum 4.8 mmol/L 3.5-5.2 chloride, serum [...] Lab Report: CBC W/DIFF, Comp. Metabolic Panel, [facility] - Hematology leukocyte count, blood [...] 267 10^3/MM^3 10*3/mm3 142-424 Lab Report: Chlamydia/GC APTIMA/[id number] - Lab chlamydia DNA probe NOT DETECTED NOT DETECTED Lab Report: Chlamydia/GC APTIMA/[id number] - Microbiology Neisseria gonorrhoeae DNA probe NOT [...] Negative Encounters Code Encounter Date Provider Facility CPT-13350 Level 3 Est. Patient 18:48:29 CDT Anthony [facility] CPT-40678 Level 3 Est. Patient 12:16:59 CDT Gabriel Hunt DO [facility] CPT-28270 Level 3 Est. Patient 18:57:15 CDT [facility] CPT-32661 Level 3 Est. Patient 13:59:22 ALUMNI RELATIONS OFFICER Ang Markham MD [facility] CPT-99154 Level 4 Est. Patient 10:36:08 ALUMNI RELATIONS OFFICER Ang Markham MD [facility] CPT-10090 Level 3 Est. Patient 16:27:02 CDT Eri Borges MD PhD [facility] CPT-30346 Level 3 Est. Patient 10:36:43 CDT Octaviano Demp[facility] CPT-07593 Level 4 New Patient 08:58:06 CDT Ang Markham MD [facility] Procedures Code Procedure Name Date Entry Date Standard Description CPT-61084 Venipuncture Draw Fee 12:25:15 CDT CPT-92030 Knee 3V 16:48:40 CDT CPT-OV Office Visit 16:27:13 CDT CPT-OV Office Visit 16:21:19 CDT CPT-78027 Sono pelvis non OB uterus ovaries cervix 09:37:28 CDT
--- OUTSIDE RECORDS SUMMARY | 2018-12-22 03:02 | XMS REPORT | Clinical Summary ---
Author Author Admin, ALEXANDER Organization [facility] Address Unknown Phone Unavailable Allergies, Adverse Reactions, [...] TAB 1 qODay x 2 doses FLUCONAZOLE 61525387267 No Longer Active Jillina Frazell ASSEMBLING INSPECTOR Active IBUPROFEN 800 MG TABS 1 tab every 8 hours as needed for pain IBUPROFEN 68952229586 Active Jillina Frazell ASSEMBLING INSPECTOR Active LEVEMIR FLEXPEN 100 UNIT/ML SOLN 60 units SC at bedtime INSULIN DETEMIR 45034116406 Active Anthony CARBONE Active CEFTIN 500 MG TAB 1 tablet by mouth twice daily for 7 days 07/24 CEFUROXIME AXETIL 73511592373 No Longer Active Anthony CARBONE Active NITROFURANTOIN MACROCRYSTAL 100 MG CAPS 1 capsule PO bid x 7 days NITROFURANTOIN MACROCRYSTAL 71427239815 Active Anthony CARBONE Active ZOLPIDEM TARTRATE 10 MG TABS 1 tab PO at hs ZOLPIDEM TARTRATE 18551861201 Active Anthony CARBONE Active ZOLOFT 50 MG TAB 1 tablet by mouth daily SERTRALINE HCL 52388752782 No Longer Active Anthony CARBONE Active ANUSOL-HC 2.5 % CREAM apply as needed HYDROCORTISONE (RECTAL) 25698398353 No Longer Active Anthony CARBONE Active COLACE 100 MG CAP 1 tab PO BID DOCUSATE SODIUM 58395421416 No Longer Active Anthony CARBONE Active CYCLOBENZAPRINE HCL 5 MG TABS 1/2 to 1 tab PO tid PRN CYCLOBENZAPRINE HCL 39988630001 Active Anthony CARBONE Active TRINESSA (28) 0.18/0.215/0.25 MG-35 MCG TABS 1 po qd as directed NORGESTIM-ETH ESTRAD TRIPHASIC 18016223048 No Longer Active Anthony CARBONE Active [facility] MELATONIN 5 MG TABS 1-2 po qHS PRN Insomnia MELATONIN 06440328255 No Longer Active Anthony CARBONE Active NOVOLOG FLEXPEN 100 UNIT/ML SOPN Take 18 units TID with meals INSULIN ASPART 89430757820 Active Anthony CARBONE Active ACYCLOVIR 400 MG TABS ACYCLOVIR 11500490629 No Longer Active Ang Markham MD Active EMBRACE BLOOD GLUCOSE TEST STRP Test blood sugars 4 times daily and PRN 08/05 GLUCOSE BLOOD 27534241149 Active Ang Markham MD Active HYDROXYZINE HCL 25 MG TABS 1 tab PO tid PRN itching HYDROXYZINE HCL 00480146654 No Longer Active Ang Markham MD Active DIFLUCAN 150 MG TAB 1 qODay x 2 doses FLUCONAZOLE 25326628531 No Longer Active Da Romero APRN Active ACYCLOVIR 400 MG TABS 1 pill twice daily ACYCLOVIR 08486524765 No Longer Active Da Romero APRN Active AZITHROMYCIN 250 MG TABS 2 po qd x 1 day, then 1 po qd x 4 days AZITHROMYCIN 64711835531 No Longer Active Eri Borges MD PhD Active AZITHROMYCIN 250 MG TABS take 2 po day 1 then take1 po days 2-5 AZITHROMYCIN 50270186474 No Longer Active Octaviano CARBONE Active ACYCLOVIR 400 MG TABS 1 po qd ACYCLOVIR 40062825703 No Longer Active Ang Markham MD Active PROZAC 40 MG CAPS 1 cap by mouth at bedtime FLUOXETINE HCL 61734335567 No Longer Active Ang Markham MD Active METFORMIN HCL 1000 MG TABS 1 tablet by mouth twice daily METFORMIN HCL 13400500786 Active Ang Markham MD Active HYDROXYZINE HCL 25 MG TABS 1 tab PO tid PRN itching HYDROXYZINE HCL 25 MG TABS 563734 HYDROXYZINE HCL Inactive [facility] MELATONIN 5 MG TABS 1-2 po qHS PRN Insomnia [facility] MELATONIN 5 MG TABS 969955 MELATONIN Inactive TRINESSA (28) 0.18/0.215/0.25 MG-35 MCG TABS 1 po qd as directed TRINESSA (28) 0.18/0.215/0.25 MG-35 MCG TABS 638897 NORGESTIM-ETH ESTRAD TRIPHASIC Inactive COLACE 100 MG CAP 1 tab PO BID COLACE 100 MG CAP 1536816 DOCUSATE SODIUM Inactive ANUSOL-HC 2.5 % CREAM apply as needed ANUSOL-HC 2.5 % CREAM 625631 HYDROCORTISONE (RECTAL) Inactive ZOLOFT 50 MG TAB 1 tablet by mouth daily ZOLOFT 50 MG TAB 079278 SERTRALINE HCL Inactive CEFTIN 500 MG TAB 1 tablet by mouth twice daily for 7 days 07/24 CEFTIN 500 MG TAB 038579 CEFUROXIME AXETIL Inactive ACYCLOVIR 400 MG TABS 1 po qd ACYCLOVIR 400 MG TABS 19720928 ACYCLOVIR Inactive AZITHROMYCIN 250 MG TABS take 2 po day 1 then take1 po days 2-5 AZITHROMYCIN 250 MG TABS 4510661 AZITHROMYCIN Inactive AZITHROMYCIN 250 MG TABS 2 po qd x 1 day, then 1 po qd x 4 days AZITHROMYCIN 250 MG TABS 4569408 AZITHROMYCIN Inactive ACYCLOVIR 400 MG TABS 1 pill twice daily ACYCLOVIR 400 MG TABS 19720928 ACYCLOVIR Inactive DIFLUCAN 150 MG TAB 1 qODay x 2 doses DIFLUCAN 150 MG TAB 597055 FLUCONAZOLE Inactive ACYCLOVIR 400 MG TABS ACYCLOVIR 400 MG TABS 19720928 ACYCLOVIR Inactive DIFLUCAN 150 MG TAB 1 qODay x 2 doses DIFLUCAN 150 MG TAB 177655 FLUCONAZOLE Inactive Advance Directives Directive Description Start [...] HGBA1C - Chemistry sodium, serum 131 mmol/L 613-661 7098/10/27 potassium, serum 4.8 mmol/L 3.5-5.2 chloride, serum [...] Lab Report: CBC W/DIFF, Comp. Metabolic Panel, [facility] - Hematology leukocyte count, blood 9.0 10^3/MM^3 [...] 5.0-8.5 Encounters Code Encounter Date Provider Facility CPT-07855 Level 3 Est. Patient 18:48:29 CDT Anthony CARBONE [facility] CPT-74536 Level 3 Est. Patient 12:16:59 CDT Gabriel Hunt DO [facility] CPT-18509 Level 3 Est. Patient 18:57:15 CDT Anthony Whitfield [facility] CPT-94921 Level 3 Est. Patient 13:59:22 GRINDER HAND Ang Markham MD [facility] CPT-06956 Level 4 Est. Patient 10:36:08 GRINDER HAND Ang Markham MD [facility] CPT-11464 Level 3 Est. Patient 16:27:02 CDT Eri Borges MD PhD [facility] CPT-62582 Level 3 Est. Patient 10:36:43 CDT Kellyfaviola Roselyn [facility] CPT-50710 Level 4 New Patient 08:58:06 CDT Ang Markham MD [facility] Procedures Code Procedure Name Date Entry Date Standard Description CPT-15198 Venipuncture Draw Fee 12:25:15 CDT CPT-51602 Knee 3V 16:48:40 CDT CPT-OV Office Visit 16:27:13 CDT CPT-OV Office Visit 16:21:19 CDT CPT-06273 Sono pelvis non OB uterus ovaries cervix 09:37:28 CDT
--- OUTSIDE RECORDS SUMMARY | 2018-12-22 03:02 | XMS REPORT | Clinical Summary ---
Author Author Admin, ALEXANDER Organization [facility] Address Unknown Phone Unavailable Allergies, [...] TAB 1 qODay x 2 doses FLUCONAZOLE [id number] No Longer Active Jillina Frazell OVERLAY PLASTICIAN Active IBUPROFEN 800 MG TABS 1 tab every 8 hours as needed for pain IBUPROFEN 92320588683 Active Jillina Frazell OVERLAY PLASTICIAN Active LEVEMIR FLEXPEN 100 UNIT/ML SOLN 60 units SC at bedtime INSULIN DETEMIR 46622187499 Active Anthony CARBONE Active CEFTIN 500 MG TAB 1 tablet by mouth twice daily for 7 days 07/24 CEFUROXIME AXETIL 23539988815 No Longer Active Anthony CARBONE Active NITROFURANTOIN MACROCRYSTAL 100 MG CAPS 1 capsule PO bid x 7 days NITROFURANTOIN MACROCRYSTAL 36756660356 Active Anthony CARBONE Active ZOLPIDEM TARTRATE 10 MG TABS 1 tab PO at hs ZOLPIDEM TARTRATE 11595704299 Active Anthony CARBONE Active ZOLOFT 50 MG TAB 1 tablet by mouth daily SERTRALINE HCL 84566717640 No Longer Active Anthony CARBONE Active ANUSOL-HC 2.5 % CREAM apply as needed HYDROCORTISONE (RECTAL) 43864399704 No Longer Active Anthony CARBONE Active COLACE 100 MG CAP 1 tab PO BID DOCUSATE SODIUM 76193993435 No Longer Active Anthony CARBONE Active CYCLOBENZAPRINE HCL 5 MG TABS 1/2 to 1 tab PO tid PRN CYCLOBENZAPRINE HCL 60207830899 Active Anthony CARBONE Active TRINESSA (28) 0.18/0.215/0.25 MG-35 MCG TABS 1 po qd as directed NORGESTIM-ETH ESTRAD TRIPHASIC 24760231390 No Longer Active Anthony CARBONE Active [facility] MELATONIN 5 MG TABS 1-2 po qHS PRN Insomnia MELATONIN 73464827272 No Longer Active Anthony CARBONE Active NOVOLOG FLEXPEN 100 UNIT/ML SOPN Take 18 units TID with meals INSULIN ASPART 64416990527 Active Anthony CARBONE Active ACYCLOVIR 400 MG TABS ACYCLOVIR 68594303492 No Longer Active Ang Markham MD Active EMBRACE BLOOD GLUCOSE TEST STRP Test blood sugars 4 times daily and PRN 08/05 GLUCOSE BLOOD 31076427046 Active Ang Markham MD Active HYDROXYZINE HCL 25 MG TABS 1 tab PO tid PRN itching HYDROXYZINE HCL 11665952811 No Longer Active Ang Markham MD Active DIFLUCAN 150 MG TAB 1 qODay x 2 doses FLUCONAZOLE 93068180748 No Longer Active Da Romero APRN Active ACYCLOVIR 400 MG TABS 1 pill twice daily ACYCLOVIR 48262024571 No Longer Active Da Romero APRN Active AZITHROMYCIN 250 MG TABS 2 po qd x 1 day, then 1 po qd x 4 days AZITHROMYCIN 46345466929 No Longer Active Eri Borges MD PhD Active AZITHROMYCIN 250 MG TABS take 2 po day 1 then take1 po days 2-5 AZITHROMYCIN 02073572284 No Longer Active Octaviano CARBONE Active ACYCLOVIR 400 MG TABS 1 po qd ACYCLOVIR 64549358684 No Longer Active Ang Markham MD Active PROZAC 40 MG CAPS 1 cap by mouth at bedtime FLUOXETINE HCL 22532583600 No Longer Active Ang Markham MD Active METFORMIN HCL 1000 MG TABS 1 tablet by mouth twice daily METFORMIN HCL 42878500656 Active Ang Markham MD Active HYDROXYZINE HCL 25 MG TABS 1 tab PO tid PRN itching HYDROXYZINE HCL 25 MG TABS 079828 HYDROXYZINE HCL Inactive [facility] MELATONIN 5 MG TABS 1-2 po qHS PRN Insomnia [facility] MELATONIN 5 MG TABS 220025 MELATONIN Inactive TRINESSA (28) 0.18/0.215/0.25 MG-35 MCG TABS 1 po qd as directed TRINESSA (28) 0.18/0.215/0.25 MG-35 MCG TABS 913877 NORGESTIM-ETH ESTRAD TRIPHASIC Inactive COLACE 100 MG CAP 1 tab PO BID COLACE 100 MG CAP 2393335 DOCUSATE SODIUM Inactive ANUSOL-HC 2.5 % CREAM apply as needed ANUSOL-HC 2.5 % CREAM 473705 HYDROCORTISONE (RECTAL) Inactive ZOLOFT 50 MG TAB 1 tablet by mouth daily ZOLOFT 50 MG TAB 012769 SERTRALINE HCL Inactive CEFTIN 500 MG TAB 1 tablet by mouth twice daily for 7 days 07/24 CEFTIN 500 MG TAB 552027 CEFUROXIME AXETIL Inactive ACYCLOVIR 400 MG TABS 1 po qd ACYCLOVIR 400 MG TABS 19720928 ACYCLOVIR Inactive AZITHROMYCIN 250 MG TABS take 2 po day 1 then take1 po days 2-5 AZITHROMYCIN 250 MG TABS 0626723 AZITHROMYCIN Inactive AZITHROMYCIN 250 MG TABS 2 po qd x 1 day, then 1 po qd x 4 days AZITHROMYCIN 250 MG TABS 0995891 AZITHROMYCIN Inactive ACYCLOVIR 400 MG TABS 1 pill twice daily ACYCLOVIR 400 MG TABS 19720928 ACYCLOVIR Inactive DIFLUCAN 150 MG TAB 1 qODay x 2 doses DIFLUCAN 150 MG TAB 429213 FLUCONAZOLE Inactive ACYCLOVIR 400 MG TABS ACYCLOVIR 400 MG TABS 19720928 ACYCLOVIR Inactive DIFLUCAN 150 MG TAB 1 qODay x 2 doses DIFLUCAN 150 MG TAB 829538 FLUCONAZOLE Inactive Advance Directives Directive Description Start Date PERMISSION TO [facility] Vital Signs Date Name Value Unit Range Description blood pressure, diastolic 84 mm[Hg] BP [place] blood pressure, systolic 118 mm[Hg] BP sys pulse rate E&M 116 /min Heart rate temperature E&M 97.5 [degF] Body temperature weight E&M 135.3 [lb_av] Weight Measured blood pressure, diastolic 80 mm[Hg] BP [place] [...] BA1C - Chemistry sodium, serum 131 mmol/L 693-456 6733/10/27 potassium, serum 4.8 mmol/L 3.5-5.2 chloride, serum [...] 267 10^3/MM^3 10*3/mm3 142-424 Lab Report: Chlamydia/GC [id number] - Lab chlamydia DNA probe NOT DETECTED NOT DETECTED Lab Report: Chlamydia/GC [id number] - Microbiology Neisseria gonorrhoeae DNA probe NOT [...] Negative Encounters Code Encounter Date Provider Facility CPT-33572 Level 3 Est. Patient 18:48:29 CDT Anthony Whitfield [facility] CPT-97363 Level 3 Est. Patient 12:16:59 CDT Gabriel Hunt DO [facility] CPT-19774 Level 3 Est. Patient 18:57:15 CDT Anthony Whitfield [facility] CPT-81363 Level 3 Est. Patient 13:59:22 BETA TESTER Ang Markham MD [facility] CPT-89826 Level 4 Est. Patient 10:36:08 BETA TESTER Ang Markham MD [facility] CPT-78495 Level 3 Est. Patient 16:27:02 CDT Eri Borges MD PhD [facility] CPT-63978 Level 3 Est. Patient 10:36:43 CDT Octaviano Dempsey [facility] CPT-23081 Level 4 New Patient 08:58:06 CDT Ang Markham MD [facility] Procedures Code Procedure Name Date Entry Date Standard Description CPT-59799 Venipuncture Draw Fee 12:25:15 CDT CPT-60747 Knee 3V 16:48:40 CDT CPT-OV Office Visit 16:27:13 CDT CPT-OV Office Visit 16:21:19 CDT CPT-37750 Sono pelvis non OB uterus ovaries cervix 09:37:28 CDT
--- OUTSIDE RECORDS SUMMARY | 2018-12-22 03:03 | XMS REPORT | Continuity of Care Document ---
Demographics x Preferred Language Unknown Marital Status Unknown Buddhist Affiliation Unknown Race Unknown Ethnic Group Unknown Author Author [facility] Organization [facility] Address Unknown Phone Unavailable Allergies Active Description Code Type Severity Reaction Onset Reported/Identified Relationship to Patient Clinical Status Yes Penicillins 476 Drug Allergy N/ A Rash~Swelling Yes Sulfa (Sulfonamide Antibiotics) 491 Drug Allergy N/A N/A Confirmed or Verified Yes clindamycin Drug Unknown N/A Yes ibuprofen Drug N/A N/A Yes penicillin 3 Drug N/A N/A Yes sulfa drugs 16 Drug N/A N/A Medications There is no data. Problems Date Dx Coded Attending Type Code Diagnosis Diagnosed By 10/07/2014 RETA GUILLERMO 110.5 DERMATOPHYTOSIS OF BODY 10/07/2014 RETA GUILLERMO 455.6 HEMORRHOIDS NOS 10/07/2014 RETA GUILLERMO 564.00 CONSTIPATION NOS 10/07/2014 RETA GUILLERMO 569.3 RECTAL ANAL HEMORRHAGE 10/07/2014 RETA GUILLERMO 780.52 INSOMNIA NEC 10/24/2014 D 373.11 HORDEOLUM EXTERNUM 10/24/2014 A 379.93 REDNESS/ DISCHARGE OF EYE 12/18/2014 VALERIE HERNANDEZ 112.1 CANDIDAL VULVOVAGINITIS 12/18/2014 VALERIE HERNANDEZ 250.00 DM2/NOS UNCOMP NSU 12/18/2014 VALERIE HERNANDEZ 623.5 NONINFECT VAG LEUKORRHEA 12/18/2014 VALERIE HERNANDEZ 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 06/04/2017 Surendra ROSALES, [place] K52.9 Diarrhea, chronic Procedures Code Description [place] [address] EMERGENCY DEPT VISIT 10/07/2014 12906 EMERGENCY DEPT VISIT 10/24/2014 12145 URINALYSIS, AUTO W/SCOPE 12/18/2014 44056 URINE TEST 12/18/2014 34024 URINE CULTURE/COLONY COUNT 12/18/2014 22656 EMERGENCY DEPT VISIT 12/18/2014 60883 URINALYSIS, AUTO W/SCOPE 07/28/2015 22021 EMERGENCY DEPT VISIT 07/28/2015 98938 EMERGENCY DEPT VISIT 12/03/2015 09124 EMERGENCY DEPT VISIT 12/03/2015 41786 ROUTINE VENIPUNCTURE 01/18/2016 50823 X-RAY EXAM OF ABDOMEN 01/18/2016 61069 COMPREHEN METABOLIC PANEL 01/18/2016 00070 URINALYSIS, AUTO W/SCOPE 01/18/2016 80754 CHORIONIC GONADOTROPIN ASSAY 01/18/2016 29346 COMPLETE CBC W/AUTO DIFF WBC 01/18/2016 54417 EMERGENCY DEPT VISIT 01/18/2016 03996 ROUTINE VENIPUNCTURE 02/18/2016 43436 COMPREHEN METABOLIC PANEL 02/18/2016 04490 DRUG SCREEN NON TLC DEVICES 02/18/2016 78799 URINALYSIS, AUTO W/SCOPE 02/18/2016 86981 TEST FOR ACETONE/KETONES 02/18/2016 91306 BLOOD GASES: PH, PO2 & PCO2 02/18/2016 84444 GLYCOSYLATED HEMOGLOBIN TEST 02/18/2016 62455 ASSAY OF LIPASE 02/18/2016 31474 CHORIONIC GONADOTROPIN ASSAY 02/18/2016 79987 COMPLETE CBC W/AUTO DIFF WBC 02/18/2016 13795 THER/PROPH/DIAG INJ, IV PUSH 02/18/2016 31792 TX/PRO/DX INJ NEW DRUG ADDON 02/18/2016 52304 EMERGENCY DEPT VISIT 02/18/2016 J1815 INSULIN INJECTION 02/18/[address] ABDOMEN&PELVIS W/ CONTRAST 03/10/2016 Q9967 LOCM 300-399MG/ML IODINE, 1ML 03/10/2016 62226 ROUTINE VENIPUNCTURE 03/14/2016 45469 METABOLIC PANEL TOTAL CA 03/14/2016 91495 URINALYSIS, AUTO W/SCOPE 03/14/2016 28654 COMPLETE CBC W/AUTO DIFF WBC 03/14/2016 18621 HYDRATE IV INFUSION, ADD-ON 03/14/2016 23585 THER/PROPH/DIAG INJ, IV PUSH 03/14/2016 67299 EMERGENCY DEPT VISIT 03/14/2016 46586 EMERGENCY DEPT VISIT 03/14/2016 J2765 METOCLOPRAMIDE HCL INJECTION 03/14/2016 J7030 NORMAL SALINE SOLUTION INFUS 03/14/2016 06806 EMERGENCY DEPT VISIT 03/25/2016 38153 EMERGENCY DEPT VISIT 03/25/2016 30898 EMERGENCY DEPT VISIT 03/31/2016 76499 EMERGENCY DEPT VISIT 03/31/2016 86707 CULTURE, BACTERIA, OTHER 04/01/2016 68744 SMEAR, GRAM STAIN 04/01/2016 Results Test Result Range UA - 03/31/14 00:00 PH 6.5 4.5-8.0 SG <=1.005 1.003-1.035 UABILI N UABLD N UACOLOR YEL UAGLU 3+ UAKET N UALEUK N UANIT N UAURO 0.2 0-0.2 CLARITY HAZY PROTEIN N UA WBC R2030 UA RBC R05 SQUAMOUS EPITHELIAL CELLS 1+ BACTERIA OCC YEAST 1+ RSTREP - 09/16/14 00:00 RSTREP P Negative UCG GROUP - 12/18/14 00:00 UCG N Negative UA - 12/18/14 00:00 PH 6.0 4.5-8.0 SG 1.006 1.003-1.035 UABILI NEGATIVE UABLD TRACE UACOLOR YEL UAGLU 3+ UAKET NEGATIVE UALEUK NEGATIVE UANIT NEGATIVE UAURO 0.2 0-0.2 CLARITY HAZY PROTEIN NEGATIVE UA WBC R05 UA RBC R1020 SQUAMOUS EPITHELIAL CELLS FEW BACTERIA OCC YEAST 1+ CBC WITH DIFF - 01/06/15 00:00 BASO% 0.6 % 0-2 EOS% 1.6 % 0-7.0 HCT 41.1 % 36.9-47.0 HGB 14.2 G/DL 12.0-16.0 LYMPH% 41.1 % 20-40 MCH 28.6 PG 27-31 MCHC 34.5 G/DL 33-37 MCV 82.7 FL 81-99 MONO% 5.2 % 0-10.0 MPV 10.8 FL 7.3-10.4 NEUTRO% 51.5 % 40-70 PLT 253 10^3u 130-400 RBC 5.0 10^6u 4.2-5.4 RDW 12.3 % 11.5-15.5 WBC 9.9 10^3u 4.8-10.8 NEUTRO# 5.1 10^3u 1.5-7.5 LYMPH# 4.1 10^3u 0.9-4.0 MONO# 0.5 10^3u 0-0.8 EOS# 0.2 10^3u 0-0.6 BASO# 0.1 10^3u 0-0.1 RAPID MYCOPLASMA - 01/06/15 00:00 RAPMYCO N Negative RSTREP - 01/06/15 00:00 RSTREP N Negative UA - 07/28/15 00:00 PH 6.0 4.5-8.0 SG <=1.005 1.003-1.035 UABILI NEGATIVE UABLD NEGATIVE UACOLOR YEL UAGLU 3+ UAKET NEGATIVE UALEUK NEGATIVE UANIT NEGATIVE UAURO 0.2 0-0.2 UCX NO CLARITY HAZY PROTEIN NEGATIVE UA WBC R510 UA RBC R510 SQUAMOUS EPITHELIAL CELLS FEW BACTERIA OCC YEAST 2+ CBC WITH DIFF - 01/18/16 00:00 BASO% 0.6 % 0-2 EOS% 1.3 % 0-7.0 HCT 43.6 % 36.9-47.0 HGB 14.2 G/DL 12.0-16.0 LYMPH% 32.0 % 20-40 MCH 26.3 PG 27-31 MCHC 32.6 G/DL 33-37 MCV 80.7 FL 81-99 MONO% 5.1 % 0-10.0 MPV 10.2 FL 7.3-10.4 NEUTRO% 60.1 % 40-70 PLT 314 10^3u 130-400 RBC 5.4 10^6u 4.2-5.4 RDW 13.7 % 11.5-15.5 WBC 12.0 10^3u 4.8-10.8 NEUTRO# 7.2 10^3u 1.5-7.5 LYMPH# 3.8 10^3u 0.9-4.0 MONO# 0.6 10^3u 0-0.8 EOS# 0.2 10^3u 0-0.6 BASO# 0.1 10^3u 0-0.1 IMM GRANULOCYTE % 0.9 % IMM GRANULOCYTE # 0.1 10^3u 0-5 HCG QUAL - 01/18/16 00:00 HCG N UA - 01/18/16 00:00 PH 5.5 4.5-8.0 SG 1.010 1.003-1.035 UABILI NEGATIVE UABLD NEGATIVE UACOLOR YEL UAGLU 3+ UAKET NEGATIVE UALEUK NEGATIVE UANIT NEGATIVE UAURO 0.2 0-0.2 UCX NO CLARITY HAZY PROTEIN NEGATIVE UA WBC R510 UA RBC R05 SQUAMOUS EPITHELIAL CELLS 1+ BACTERIA RARE YEAST OCC CMP - 01/18/16 00:00 ALB 3.4 G/DL 3.5-5 ALP 150 IU/L 25-72 ALT 17 IU/L 12-65 AST 7 IU/L 10-42 BCR 17.4 10-20 BUN 12 MG/DL 7-18 CA 9.1 MG/DL 8.4-10.2 CL 93 MEQ/L 98-107 CO2 29.0 MEQ/L 22-28 CREA 0.69 MG/DL 0.6-1.0 EGFR 107 eGFR >=60 GLU 474 MG/DL 70-105 K 4.3 MEQ/L 3.5-5.1 NA 130 MEQ/L 134-145 OSMSC 281.4 MOSML 280-300 TBIL 0.2 MG/DL 0.1-1.0 TP 7.8 G/DL 6.0-8.3 Albumin/Globulin Ratio 0.8 0-8 Anion Gap 8.0 8-16 CBC WITH DIFF - 02/18/16 00:00 BASO% 0.5 % 0-2 EOS% 0.6 % 0-7.0 HCT 45.0 % 36.9-47.0 HGB 14.9 G/DL 12.0-16.0 LYMPH% 27.8 % 20-40 MCH 26.3 PG 27-31 MCHC 33.1 G/DL 33-37 MCV 79.4 FL 81-99 MONO% 4.8 % 0-10.0 MPV 9.9 FL 7.3-10.4 NEUTRO% 66.0 % 40-70 PLT 310 10^3u 130-400 RBC 5.7 10^6u 4.2-5.4 RDW 13.6 % 11.5-15.5 WBC 12.0 10^3u 4.8-10.8 NEUTRO# 7.9 10^3u 1.5-7.5 LYMPH# 3.3 10^3u 0.9-4.0 MONO# 0.6 10^3u 0-0.8 EOS# 0.1 10^3u 0-0.6 BASO# 0.1 10^3u 0-0.1 IMM GRANULOCYTE % 0.3 % IMM GRANULOCYTE # 0.0 10^3u 0-5 HCG QUAL - 02/18/16 00:00 HCG N ACETONE/KETONE - 02/18/16 00:00 ACETSER SM Negative HA1C - 02/18/16 00:00 HA1C 11.0 % 4.5-6.2 LIP - 02/18/16 00:00 LIP 134 U/L 73-393 CMP - 02/18/16 00:00 ALB 3.6 G/DL 3.5-5 ALP 149 IU/L 25-72 ALT 19 IU/L 12-65 AST 16 IU/L 10-42 BCR 15.0 10-20 BUN 9 MG/DL 7-18 CA 9.7 MG/DL 8.4-10.2 CL 89 MEQ/L 98-107 CO2 30.1 MEQ/L 22-28 CREA 0.60 MG/DL 0.6-1.0 EGFR 126 eGFR >=60 GLU 397 MG/DL 70-105 K 4.8 MEQ/L 3.5-5.1 NA 128 MEQ/L 134-145 OSMSC 272.3 MOSML 280-300 TBIL 0.4 MG/DL 0.1-1.0 TP 8.2 G/DL 6.0-8.3 Albumin/Globulin Ratio 0.8 0-8 Anion Gap 8.9 8-16 UA - 02/18/16 00:00 PH 5.5 4.5-8.0 SG 1.015 1.003-1.035 UABILI NEGATIVE UABLD NEGATIVE UACOLOR YEL UAGLU 3+ UAKET 1+ UALEUK NEGATIVE UANIT NEGATIVE UAURO 0.2 0-0.2 UCX NO CLARITY HAZY PROTEIN 1+ UA WBC NOWBC UA RBC R05 SQUAMOUS EPITHELIAL CELLS 1+ BACTERIA RARE DRUG SCREEN IN HOUSE - 02/18/16 00:00 MBAR N Negative MBENZO N Negative MCOCN N Negative MMAMP N Negative MMTD N Negative MOPIAT N Negative MPCP N Negative MTCA N Negative MTHC N Negative AMPHETAMINE N Negative CBC WITH DIFF - 03/14/16 00:00 BASO% 0.5 % 0-2 EOS% 0.5 % 0-7.0 HCT 47.3 % 36.9-47.0 HGB 15.9 G/DL 12.0-16.0 LYMPH% 20.4 % 20-40 MCH 26.6 PG 27-31 MCHC 33.6 G/DL 33-37 MCV 79.1 FL 81-99 MONO% 3.8 % 0-10.0 MPV 10.3 FL 7.3-10.4 NEUTRO% 74.3 % 40-70 PLT 329 10^3u 130-400 RBC 6.0 10^6u 4.2-5.4 RDW 13.6 % 11.5-15.5 WBC 12.9 10^3u 4.8-10.8 NEUTRO# 9.6 10^3u 1.5-7.5 LYMPH# 2.6 10^3u 0.9-4.0 MONO# 0.5 10^3u 0-0.8 EOS# 0.1 10^3u 0-0.6 BASO# 0.1 10^3u 0-0.1 IMM GRANULOCYTE % 0.5 % IMM GRANULOCYTE # 0.1 10^3u 0-5 UA - 03/14/16 00:00 PH 5.5 4.5-8.0 SG 1.020 1.003-1.035 UABILI NEGATIVE UABLD NEGATIVE UACOLOR YEL UAGLU 3+ UAKET 3+ UALEUK NEGATIVE UANIT NEGATIVE UAURO 0.2 0-0.2 UCX NO CLARITY HAZY PROTEIN NEGATIVE UA WBC R05 UA RBC R05 SQUAMOUS EPITHELIAL CELLS 3+ BACTERIA 1+ YEAST 1+ BMP - 03/14/16 00:00 BCR 11.9 10-20 BUN 8 MG/DL 7-18 CA 9.7 MG/DL 8.4-10.2 CL 95 MEQ/L 98-107 CO2 24.2 MEQ/L 22-28 CREA 0.67 MG/DL 0.6-1.0 EGFR 111 eGFR >=60 GLU 336 MG/DL 70-105 K 4.1 MEQ/L 3.5-5.1 NA 131 MEQ/L 134-145 OSMSC 274.2 MOSML 280-300 Anion Gap 11.8 8-16 CBC WITH DIFF - 04/03/16 00:00 BASO% 0.4 % 0-2 EOS% 1.0 % 0-7.0 HCT 38.9 % 36.9-47.0 HGB 12.8 G/DL 12.0-16.0 LYMPH% 26.0 % 20-40 MCH 26.3 PG 27-31 MCHC 32.9 G/DL 33-37 MCV 79.9 FL 81-99 MONO% 4.9 % 0-10.0 MPV 10.6 FL 7.3-10.4 NEUTRO% 67.4 % 40-70 PLT 320 10^3u 130-400 RBC 4.9 10^6u 4.2-5.4 RDW 13.5 % 11.5-15.5 WBC 11.5 10^3u 4.8-10.8 NEUTRO# 7.7 10^3u 1.5-7.5 LYMPH# 3.0 10^3u 0.9-4.0 MONO# 0.6 10^3u 0-0.8 EOS# 0.1 10^3u 0-0.6 BASO# 0.1 10^3u 0-0.1 IMM GRANULOCYTE % 0.3 % IMM GRANULOCYTE # 0.0 10^3u 0-5 HCG QUAL - 04/03/16 00:00 HCG N HA1C - 04/03/16 00:00 HA1C 12.5 % 4.5-6.2 CMP - 04/03/16 00:00 ALB 2.9 G/DL 3.5-5 ALP 148 IU/L 25-72 ALT 16 IU/L 12-65 AST 10 IU/L 10-42 BCR 5.6 10-20 BUN 4 MG/DL 7-18 CA 9.1 MG/DL 8.4-10.2 CL 93 MEQ/L 98-107 CO2 28.6 MEQ/L 22-28 CREA 0.72 MG/DL 0.6-1.0 EGFR 102 eGFR >=60 GLU 472 MG/DL 70-105 K 4.1 MEQ/L 3.5-5.1 NA 130 MEQ/L 134-145 OSMSC 278.5 MOSML 280-300 TBIL 0.3 MG/DL 0.1-1.0 TP 8.0 G/DL 6.0-8.3 Albumin/Globulin Ratio 0.6 0-8 Anion Gap 8.4 8-16 CBC WITH DIFF - 04/04/16 00:00 BASO% 0.3 % 0-2 EOS% 1.0 % 0-7.0 HCT 34.7 % 36.9-47.0 HGB 11.4 G/DL 12.0-16.0 LYMPH% 34.7 % 20-40 MCH 26.3 PG 27-31 MCHC 32.9 G/DL 33-37 MCV 80.1 FL 81-99 MONO% 6.5 % 0-10.0 MPV 10.2 FL 7.3-10.4 NEUTRO% 57.2 % 40-70 PLT 308 10^3u 130-400 RBC 4.3 10^6u 4.2-5.4 RDW 13.2 % 11.5-15.5 WBC 14.4 10^3u 4.8-10.8 NEUTRO# 8.2 10^3u 1.5-7.5 LYMPH# 5.0 10^3u 0.9-4.0 MONO# 0.9 10^3u 0-0.8 EOS# 0.2 10^3u 0-0.6 BASO# 0.1 10^3u 0-0.1 IMM GRANULOCYTE % 0.3 % IMM GRANULOCYTE # 0.0 10^3u 0-5 CMP - 04/05/16 00:00 ALB 2.3 G/DL 3.5-5 ALP 112 IU/L 25-72 ALT 12 IU/L 12-65 AST 10 IU/L 10-42 BCR 7.1 10-20 BUN 4 MG/DL 7-18 CA 8.9 MG/DL 8.4-10.2 CL 97 MEQ/L 98-107 CO2 31.9 MEQ/L 22-28 CREA 0.56 MG/DL 0.6-1.0 EGFR 137 eGFR >=60 GLU 359 MG/DL 70-105 K 4.8 MEQ/L 3.5-5.1 NA 135 MEQ/L 134-145 OSMSC 281.5 MOSML 280-300 TBIL 0.2 MG/DL 0.1-1.0 TP 6.8 G/DL 6.0-8.3 Albumin/Globulin Ratio 0.5 0-8 Anion Gap 6.1 8-16 CBC WITH DIFF - 04/05/16 00:00 BASO% 0.3 % 0-2 EOS% 1.1 % 0-7.0 HCT 32.7 % 36.9-47.0 HGB 10.7 G/DL 12.0-16.0 LYMPH% 36.8 % 20-40 MCH 26.4 PG 27-31 MCHC 32.7 G/DL 33-37 MCV 80.5 FL 81-99 MONO% 5.2 % 0-10.0 MPV 10.1 FL 7.3-10.4 NEUTRO% 56.2 % 40-70 PLT 297 10^3u 130-400 RBC 4.1 10^6u 4.2-5.4 RDW 13.3 % 11.5-15.5 WBC 11.3 10^3u 4.8-10.8 NEUTRO# 6.4 10^3u 1.5-7.5 LYMPH# 4.2 10^3u 0.9-4.0 MONO# 0.6 10^3u 0-0.8 EOS# 0.1 10^3u 0-0.6 BASO# 0.0 10^3u 0-0.1 IMM GRANULOCYTE % 0.4 % IMM GRANULOCYTE # 0.0 10^3u 0-5 BMP - 04/06/16 00:00 BCR 11.5 10-20 BUN 6 MG/DL 7-18 CA 9.7 MG/DL 8.4-10.2 CL 97 MEQ/L 98-107 CO2 32.1 MEQ/L 22-28 CREA 0.52 MG/DL 0.6-1.0 EGFR 149 eGFR >=60 GLU 254 MG/DL 70-105 K 4.2 MEQ/L 3.5-5.1 NA 136 MEQ/L 134-145 OSMSC 278.2 MOSML 280-300 Anion Gap 6.9 8-16 CBC - 04/06/16 00:00 HCT 38.7 % 36.9-47.0 HGB 12.6 G/DL 12.0-16.0 MCH 26.1 PG 27-31 MCHC 32.6 G/DL 33-37 MCV 80.3 FL 81-99 MPV 10.1 FL 7.3-10.4 PLT 332 10^3u 130-400 RBC 4.8 10^6u 4.2-5.4 RDW 13.1 % 11.5-15.5 WBC 9.5 10^3u 4.8-10.8 Encounters ACCT No. Visit Date/Time Discharge Status Pt. Type Provider Facility Loc./Unit Complaint [id number] 04/03/2016 20:30:00 04/06/2016 14:05:00 DIS Inpatient ALMAS HAWLEY [facility] 2F [id number] 04/03/2016 17:37:00 04/03/2016 20:30:00 DIS Emergency RETA GUILLERMO [facility] EMR [id number] 04/01/2016 00:00:00 04/01/2016 00:00:00 DIS Outpatient KARLOS DE JESUS [facility] WILFREDO [id number] 03/31/2016 22:34:00 03/31/2016 23:20:00 DIS Emergency VALERIE HERNANDEZ [facility] EMR [id number] 03/27/2016 00:00:00 03/27/2016 23:59:59 CLS Outpatient DIALLO ARAUZ [facility] OPS [id number] 03/25/2016 16:27:00 03/25/2016 17:52:00 DIS Emergency MALI HERNANDES [facility] EMR [id number] 03/14/2016 20:20:00 03/14/2016 22:53:00 DIS Emergency AJ THOMPSON [facility] EMR [id number] 03/10/2016 10:52:00 03/10/2016 10:52:00 DIS Outpatient MARLEEN ALMAS Rachel [facility] RAD [id number] 02/17/2016 23:41:00 02/18/2016 03:40:00 DIS Emergency RETA GUILLERMO [facility] EMR [id number] 01/18/2016 00:03:00 01/18/2016 02:05:00 DIS Emergency KRISTINE GARRETT [facility] EMR [id number] 12/03/2015 19:19:00 12/03/2015 22:15:00 DIS Emergency AJ SALGADO [facility] EMR [id number] 08/10/2015 01:31:00 08/11/2015 02:05:00 DIS Emergency KRISTINE GARRETT [facility] EMR [id number] 07/28/2015 21:20:00 07/28/2015 23:45:00 DIS Emergency RETA GUILLERMO [facility] EMR [id number] 07/13/2015 00:46:00 07/13/2015 23:59:59 CLS Emergency RETA GUILLERMO [facility] EMR [id number] 03/25/2015 15:06:00 03/25/2015 17:20:00 DIS Emergency KRISTINE GARRETT [facility] EMR [id number] 03/23/2015 17:00:00 03/23/2015 17:40:00 DIS Emergency MALI HERNANDES W [facility] EMR [id number] 01/05/2015 23:51:00 01/06/2015 01:42:00 DIS Emergency MALI HERNANDES W [facility] EMR [id number] 12/18/2014 21:52:00 12/18/2014 23:50:00 DIS Emergency VALERIE HERNANDEZ [facility] EMR [id number] 11/03/2014 01:57:00 11/03/2014 02:25:00 DIS Emergency ALMAS HAWLEY [facility] EMR [id number] 10/17/2014 22:28:00 10/17/2014 22:55:00 DIS Emergency RETA GUILLERMO [facility] EMR [id number] 10/07/2014 21:03:00 10/07/2014 22:25:00 DIS Emergency RETA GUILLERMO [facility] EMR [id number] 09/16/2014 12:12:00 09/16/2014 13:08:00 DIS Emergency KRISTINE GARRETT [facility] EMR [id number] 09/15/2014 20:26:00 09/15/2014 21:19:00 DIS Emergency RETA GUILLERMO [facility] EMR [id number] 07/10/2014 09:13:00 07/10/2014 09:13:00 DIS Outpatient CARLOTA CORTÉS [facility] RAD [id number] 03/31/2014 22:54:00 04/01/2014 00:28:00 DIS Emergency AJ SALGADO [facility] EMR [id number] 08/27/2015 00:00:00 Document Registration [id number] 08/27/2015 00:00:00 Document Registration [id number] 08/27/2015 00:00:00 Document Registration [id number] 08/27/2015 00:00:00 Document Registration [id number] 10/24/2014 22:40:00 Document Registration [id number] 08/27/2014 00:00:00 Document Registration [id number] 08/27/2014 00:00:00 Document Registration [id number] 08/27/2014 00:00:00 Document Registration [id number] 08/27/2013 00:00:00 Document Registration [id number] 08/27/2013 00:00:00 Document Registration [id number] 06/08/2018 06:54:00 06/08/2018 09:15:00 DIS Emergency MALI HERNANDES [facility] ED ed visit [id number] 03/25/2018 14:30:00 03/25/2018 23:59:59 CLS Outpatient Rena Franks [facility] [id number] 03/13/2018 05:59:00 03/13/2018 06:56:00 DIS Emergency KRISTINE GARRETT [facility] ED ed visit [id number] 03/07/2018 08:41:00 03/07/2018 09:29:00 DIS Emergency RETA GUILLERMO [facility] ED ED Visit [id number] 03/03/2018 08:47:00 03/03/2018 11:05:00 DIS Emergency KRISTINE GARRETT [facility] ED ED VISIT [id number] 01/29/2018 19:11:00 01/29/2018 20:24:00 DIS Emergency Sadia Wilks [facility] ED ED visit [id number] 01/14/2018 19:48:00 01/14/2018 20:50:00 DIS Emergency MALI HERNANDES [facility] ED ED visit [id number] 01/12/2018 14:57:39 01/12/2018 23:59:59 DIS Outpatient SHEBA PATIÑO [facility] LAB labs [id number] 01/07/2018 02:09:00 01/07/2018 03:48:00 DIS Emergency AJ THOMPSON [facility] ED ED visit [id number] 12/11/2017 14:50:10 12/11/2017 23:59:59 DIS Outpatient EVERTON BROWN [facility] RAD LBP, CHRONIC, WORSENING [id number] 11/26/2017 15:07:31 11/26/2017 23:59:59 CLS Preadmit EVERTON BROWN [facility] RAD LBP, CHRONIC, WORSENING [id number] 08/17/2017 07:27:00 08/17/2017 08:50:00 DIS Emergency EVERTON MCLAIN [facility] ED spot on head [id number] 07/30/2017 06:51:00 07/30/2017 08:30:00 DIS Emergency RETA GUILLERMO [facility] ED rash [id number] 07/21/2017 04:00:00 07/21/2017 04:29:00 DIS Emergency RETA GUILLERMO [facility] ED earache [id number] 07/15/2017 03:34:00 07/15/2017 05:48:00 DIS Emergency AJ THOMPSON [facility] ED poss infection in legs [id number] 07/02/2017 06:22:48 07/02/2017 23:59:59 DIS Outpatient DIALLO ARAUZ [facility] Surgery colonoscopy [id number] 06/16/2017 15:42:00 06/16/2017 23:59:59 CLS Preadmit DIALLO ARAUZ [facility] Surgery colonoscopy [id number] 06/11/2017 20:17:00 06/11/2017 21:15:00 DIS Emergency ALEKSANDR YVONNE [facility] ED hurts to pee [id number] 05/24/2017 19:48:00 05/24/2017 21:19:00 DIS Emergency AJ THOMPSON [facility] ED tmiothy [id number] 04/24/2017 09:08:17 05/15/2017 11:17:00 DIS YVONNE BILLINGSLEY [facility] INF cellulitis, diabetic ulcer [id number] 05/10/2017 05:09:00 05/10/2017 05:56:00 DIS Emergency EVERTON MCLAIN [facility] ED mouth pain [id number] 04/23/2017 18:03:00 04/23/2017 22:46:00 DIS Emergency ALEKSANDR YVONNE [facility] ED sore on back [id number] 02/13/2017 12:31:48 02/13/2017 23:59:59 CLS Outpatient ESTIVEN WEBB [facility] RAD openwound rt lower leg [id number] 01/20/2017 23:08:43 01/22/2017 10:30:00 DIS Inpatient VALERIE HERNANDEZ [facility] MS mild DKA upper airway infection [id number] 01/20/2017 19:58:00 01/20/2017 23:07:00 DIS Emergency MALI HERNANDES [facility] [place] ED flu [id number] 01/07/2017 19:45:03 01/07/2017 23:59:59 CLS Outpatient KAYLYN SHEBA L [facility] [place] LAB lab work [id number] 12/23/2016 20:50:00 12/23/2016 21:15:00 DIS Emergency CHANDRAKANTRETA [facility] [place] ED JAW PAIN [id number] 11/19/2016 15:15:22 11/19/2016 23:59:59 CLS Outpatient [facility] [id number] 12/23/2016 20:59:13 Document Registration [id number] 12/10/2018 20:01:30 ACT Unknown Surendra ROSALES, [place] [id number] 02/11/2017 08:03:00 02/25/2017 16:02:00 DIS Outpatient JON ROSALES, [facility] 03/29/2017 06:15:23 ACT Document Registration
--- OUTSIDE RECORDS SUMMARY | 2018-12-22 03:03 | XMS REPORT | Clinical Summary ---
Author Author Admin, ALEXANDER Organization [facility] Address Unknown Phone Unavailable Allergies, Adverse [...] MG TAB 1 po qHS ATORVASTATIN CALCIUM 68816583931 Active Ang Markham MD Active METFORMIN HCL 1000 MG TABS 1 tablet by mouth twice daily METFORMIN HCL 93832785378 Active Ang Markham MD Active CYCLOBENZAPRINE HCL 5 MG TABS 1 po qHS PRN Muscle pain CYCLOBENZAPRINE HCL 94550221664 Active Ang Markham MD Active MELOXICAM 15 MG TABS 1 po qd PRN Knee Pain MELOXICAM 51545005289 Active Ang Markham MD Active ZOLOFT 50 MG TAB 1 po qd SERTRALINE HCL 50932272332 Active Ang Markham MD Active COLACE 100 MG CAP 1 po BID PRN Constipation DOCUSATE SODIUM 09124561133 No Longer Active Ang Markham MD Active HYDROXYZINE HCL 25 MG TAB 1 TID PRN nerves HYDROXYZINE HCL 12984613478 Active Ang Markham MD Active IBUPROFEN 800 MG TABS 1 tab every 8 hours as needed for pain 2013 IBUPROFEN 44187341443 No Longer Active Ang Markham MD Active NITROFURANTOIN MACROCRYSTAL 100 MG CAPS 1 capsule PO bid x 7 days NITROFURANTOIN MACROCRYSTAL 24194514381 No Longer Active Ang Markham MD Active LEVEMIR FLEXPEN 100 UNIT/ML SOLN 40 units SC at bedtime INSULIN DETEMIR 07412317333 Active Ang Markham MD Active DIFLUCAN 150 MG TAB 1 qODay x 2 doses FLUCONAZOLE 00567173926 No Longer Active Da Nguyenl TASTE TESTER Active CEFTIN 500 MG TAB 1 tablet by mouth twice daily for 7 days 07/24 CEFUROXIME AXETIL 99986763745 No Longer Active Anthony CARBONE Active ZOLPIDEM TARTRATE 10 MG TABS 1 tab PO at hs ZOLPIDEM TARTRATE 22335172540 Active Ang Markham MD Active ZOLOFT 50 MG TAB 1 tablet by mouth daily SERTRALINE HCL 06506683455 No Longer Active Anthony CARBONE Active ANUSOL-HC 2.5 % CREAM apply as needed HYDROCORTISONE (RECTAL) 24538723848 No Longer Active Anthony CARBONE Active COLACE 100 MG CAP 1 tab PO BID DOCUSATE SODIUM 48608199460 No Longer Active Anthony CARBONE Active TRINESSA (28) 0.18/0.215/0.25 MG-35 MCG TABS 1 po qd as directed NORGESTIM-ETH ESTRAD TRIPHASIC 76355624718 No Longer Active Anthony CARBONE Active [facility] MELATONIN 5 MG TABS 1-2 po qHS PRN Insomnia MELATONIN 69818400116 No Longer Active Anthony CARBONE Active NOVOLOG FLEXPEN 100 UNIT/ML SOPN Take 18 units TID with meals INSULIN ASPART 24972888878 Active Anthony CARBONE Active ACYCLOVIR 400 MG TABS ACYCLOVIR 41154263876 No Longer Active Ang Markham MD Active EMBRACE BLOOD GLUCOSE TEST STRP Test blood sugars 4 times daily and PRN 08/05 GLUCOSE BLOOD 28572300020 Active Ang Markham MD Active HYDROXYZINE HCL 25 MG TABS 1 tab PO tid PRN itching HYDROXYZINE HCL 28475695959 No Longer Active Ang Markham MD Active DIFLUCAN 150 MG TAB 1 qODay x 2 doses FLUCONAZOLE 14696448475 No Longer Active Da Romero APRN Active ACYCLOVIR 400 MG TABS 1 pill twice daily ACYCLOVIR 06450678362 No Longer Active Josephllina Nick GUTIERREZN Active AZITHROMYCIN 250 MG TABS 2 po qd x 1 day, then 1 po qd x 4 days AZITHROMYCIN 15824719397 No Longer Active Eri Borges MD PhD Active AZITHROMYCIN 250 MG TABS take 2 po day 1 then take1 po days 2-5 AZITHROMYCIN 65304903644 No Longer Active Octaviano CARBONE Active ACYCLOVIR 400 MG TABS 1 po qd ACYCLOVIR 47424825496 No Longer Active Ang Markham MD Active PROZAC 40 MG CAPS 1 cap by mouth at bedtime FLUOXETINE HCL 01573831985 No Longer Active Ang Markham MD Active HYDROXYZINE HCL 25 MG TABS 1 tab PO tid PRN itching HYDROXYZINE HCL 25 MG TABS 318837 HYDROXYZINE HCL Inactive [facility] MELATONIN 5 MG TABS 1-2 po qHS PRN Insomnia [facility] MELATONIN 5 MG TABS 509285 MELATONIN Inactive TRINESSA (28) 0.18/0.215/0.25 MG-35 MCG TABS 1 po qd as directed TRINESSA (28) 0.18/0.215/0.25 MG-35 MCG TABS 553983 NORGESTIM-ETH ESTRAD TRIPHASIC Inactive COLACE 100 MG CAP 1 tab PO BID COLACE 100 MG CAP 1328603 DOCUSATE SODIUM Inactive ANUSOL-HC 2.5 % CREAM apply as needed ANUSOL-HC 2.5 % CREAM 089470 HYDROCORTISONE (RECTAL) Inactive ZOLOFT 50 MG TAB 1 tablet by mouth daily ZOLOFT 50 MG TAB 794356 SERTRALINE HCL Inactive CEFTIN 500 MG TAB 1 tablet by mouth twice daily for 7 days 07/24 CEFTIN 500 MG TAB 160847 CEFUROXIME AXETIL Inactive NITROFURANTOIN MACROCRYSTAL 100 MG CAPS 1 capsule PO bid x 7 days NITROFURANTOIN MACROCRYSTAL 100 MG CAPS 064409 NITROFURANTOIN MACROCRYSTAL Inactive IBUPROFEN 800 MG TABS 1 tab every 8 hours as needed for pain 2013 IBUPROFEN 800 MG TABS 020120 IBUPROFEN Inactive COLACE 100 MG CAP 1 po BID PRN Constipation COLACE 100 MG CAP 6350437 DOCUSATE SODIUM Inactive ACYCLOVIR 400 MG TABS 1 po qd ACYCLOVIR 400 MG TABS 19720928 ACYCLOVIR Inactive AZITHROMYCIN 250 MG TABS take 2 po day 1 then take1 po days 2-5 AZITHROMYCIN 250 MG TABS 4144862 AZITHROMYCIN Inactive AZITHROMYCIN 250 MG TABS 2 po qd x 1 day, then 1 po qd x 4 days AZITHROMYCIN 250 MG TABS 0904589 AZITHROMYCIN Inactive ACYCLOVIR 400 MG TABS 1 pill twice daily ACYCLOVIR 400 MG TABS 19720928 ACYCLOVIR Inactive DIFLUCAN 150 MG TAB 1 qODay x 2 doses DIFLUCAN 150 MG TAB 057135 FLUCONAZOLE Inactive ACYCLOVIR 400 MG TABS ACYCLOVIR 400 MG TABS 133658 ACYCLOVIR Inactive DIFLUCAN 150 MG TAB 1 qODay x 2 doses DIFLUCAN 150 MG TAB 519024 FLUCONAZOLE Inactive Advance Directives Directive Description Start [...] BA1C - Chemistry sodium, serum 131 mmol/L 355-749 0846/10/27 potassium, serum 4.8 mmol/L 3.5-5.2 chloride, serum [...] HGBA1C - Chemistry sodium, serum 139 mmol/L 382-160 3925/02/03 potassium, serum 4.4 mmol/L 3.5-5.2 chloride, serum 98 mmol/L 98-107 carbon dioxide, venous blood 31.5 mmol/L 21.0-32.0 blood glucose 304 mg/dL 65-110 urea nitrogen, blood 10 mg/dL 7-18 creatinine, serum 0.80 mg/dL 0.60-1.30 alanine aminotransferase (SGPT), serum 23 U/L 12-78 aspartate aminotransferase (SGOT), serum 16 U/L 15-37 calcium, serum 9.4 mg/dL 8.5-10.1 bilirubin, serum, total 0.20 mg/dL 0.00-1.00 cholesterol, serum 309 mg/dL 584-092 7057/02/03 triglyceride, serum, fasting 277 mg/dL 30-200 HDL [...] 273 10^3/MM^3 10*3/mm3 142-424 Lab Report: Chlamydia/GC [id number] - Lab chlamydia DNA probe NOT DETECTED NOT DETECTED Lab Report: Chlamydia/GC [id number] - Microbiology Neisseria gonorrhoeae DNA probe NOT [...] Negative Encounters Code Encounter Date Provider Facility CPT-84985 Level 4 Est. Patient 13:53:06 BOTTLING SUPERVISOR Ang Markham MD [facility] CPT-76468 Level 3 Est. Patient 08:58:08 BOTTLING SUPERVISOR Ang Markham MD [facility] CPT-27496 Level 3 Est. Patient 18:48:29 CDT Anthony Whitfield [facility] CPT-82582 Level 3 Est. Patient 12:16:59 CDT Gabriel Hunt DO [facility] CPT-92031 Level 3 Est. Patient 18:57:15 CDT Anthony Whitfield [facility] CPT-32998 Level 3 Est. Patient 13:59:22 BOTTLING SUPERVISOR Ang Markham MD [facility] CPT-65592 Level 4 Est. Patient 10:36:08 BOTTLING SUPERVISOR Ang Markham MD [facility] CPT-13275 Level 3 Est. Patient 16:27:02 CDT Eri Borges MD PhD [facility] CPT-62386 Level 3 Est. Patient 10:36:43 CDT Octaviano Dempsey [facility] CPT-36386 Level 4 New Patient 08:58:06 CDT Ang Markham MD [facility] Procedures Code Procedure Name Date Entry Date Standard Description CPT-21762 Venipuncture Draw Fee 12:25:15 CDT CPT-31492 Knee 3V 16:48:40 CDT CPT-OV Office Visit 16:27:13 CDT CPT-OV Office Visit 16:21:19 CDT CPT-76526 Sono pelvis non OB uterus ovaries cervix 09:37:28 CDT
== END 2018-12-22 01:43 | disposition home or self-care (01) ==
LOC: ER FS 01:01
DX: L03.811 Cellulitis of head [any part, except face] (principal); L03.221 Cellulitis of neck; E11.9 Type 2 diabetes mellitus without complications; F41.9 Anxiety disorder, unspecified; F32.9 Major depressive disorder, single episode, unspecified; F17.210 Nicotine dependence, cigarettes, uncomplicated; Z88.0 Allergy status to penicillin; Z88.2 Allergy status to sulfonamides; Z90.89 Acquired absence of other organs; Z86.14 Personal history of Methicillin resistant Staphylococcus aureus infection
CPT/HCPCS: 99284

== ENCOUNTER 2018-12-30 05:22 | Emergency (ER) | payer MEDICAID ==
[~2018-12-30] VITALS: Ht 158.8 cm; Wt 54.0 kg
[~2018-12-30 05:22] MED LIST: AMLODIPINE BESYLATE 5MG TABLET; BUSPIRONE 10 MG; CLIN300C11 PO; CYCLOBENZAPRINE 10 MG; INSULIN GLARGINE; NOVOLOG; OMEPRAZOLE 20MG CAPSULES; PAROXETINE 20 MG; [UNRECOGNIZED DRUG - CODE] PO; [UNRECOGNIZED DRUG - SUPPLY]; [UNRECOGNIZED DRUG - SUPPLY]; [UNRECOGNIZED DRUG - SUPPLY]
[2018-12-30] MEDS ORDERED: NS IV 1000 ML 1,000 ML IV SCH (05:45)
[2018-12-30] MEDS ORDERED: VANCOMYCIN INJECTION 1,000 MG in NS (IVPB) 250 ML IV SCH (05:45)
[2018-12-30] MEDS ORDERED: KETOROLAC 30 MG/ML VIAL IVP ONE (05:45)
--- NOTE | 2018-12-30 05:52 | ED Integumentary General ---
General Chief Complaint: Skin/Wound Problems Stated Complaint: RUPTURED SORE ON HEAD, PAIN ON RT SIDE OF HEAD Source: patient (PELON HARPER MD) History of Present Illness Date Seen by Provider: Dec 30, 2018 Time Seen by Provider: 05:24 Initial Comments 23-year-old female presenting with complaints of pus draining from sores on her head. She has increasing pain to the right side of her head. 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 She also is diabetic. She states that she has not had any fever or chills but she has had dizziness. She reports that she will see her doctor in the clinic on Thursday. She has not been checking her sugars so she can't say if they' ve been running high. She has been having some much pain in her scalp and head that she's been having difficulty sleeping. She denies having any other sores other than the ones on her scalp. After starting the clindamycin last week she did have the main sore on the occiput of her head open and started draining pus. This has continued since the 22 of December when she was seen in the ER. (PELON HARPER MD) Allergies and Home Medications Allergies Uncoded Allergies: PCN (Allergy, Unknown, 12/22/18) SULFA (Allergy, Unknown, 12/22/18) Home Medications Clindamycin HCl 300 Mg Capsule, 300 MG PO Q6H Prescribed by: PELON HARPER on 12/22/18 0135 Naproxen 375 Mg Tablet.dr, 375 MG PO BID PRN for PAIN-MODERATE TO SEVERE Prescribed by: PELON HARPER on 12/22/18 013 Patient Home Medication List Home Medication List Reviewed: Yes (PELON HARPER MD) Review of Systems Review of Systems Constitutional: see HPI, dizziness; No fever; malaise, weakness EENTM: no symptoms reported Respiratory: no symptoms reported Cardiovascular: no symptoms reported Gastrointestinal: nausea (chronic) Genitourinary: no symptoms reported Musculoskeletal: no symptoms reported Skin: lesions (sores on her scalp with areas that are draining pus and tender to palpation.) Psychiatric/Neurological: Headache (especially around the areas that are draining pus and on the right side of her head and scalp) (PELON HARPER MD) Past Whyemif-Msdqli-Xvrhnu Hx Past Med/Social Hx: Reviewed Nursing Past Med/Soc Hx (PELON HARPER MD) Patient Social History Type Used: Cigarettes 2nd Hand Smoke Exposure: Yes Recent Foreign Travel: No Contact w/Someone Who Travel: No Recent Hopitalizations: No (PELON HARPER MD) Seasonal Allergies Seasonal Allergies: No (PELON HARPER MD) Past Medical History Surgeries: Yes ("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") Tonsillectomy Cardiac: No Neurological: No Sexually Transmitted Disease: No Genitourinary: No Gastrointestinal: No Musculoskeletal: No Endocrine: Yes Diabetes, Insulin dep HEENT: Yes (WEARS GLASSES) Loss of Vision: Bilateral Psychosocial: Yes Anxiety, Depression Integumentary: Yes (MRSA) Recent Skin Changes Blood Disorders: No (PELON HARPER MD) Physical Exam Vital Signs Vital Signs - First Documented 12/30/18 06:18 Temp 96.9 Pulse 118 Resp 16 B/P (MAP) 120/80 (93) Pulse Ox 100 O2 Delivery Room Air (PRACHI COBURN DO) Vital Signs Capillary Refill : (PELON HARPER MD) General Appearance: WD/WN, no apparent distress HEENT: PERRL/EOMI, pharynx normal Neck: full range of motion, supple, lymphadenopathy (R), lymphadenopathy (L) Cardiovascular: normal peripheral pulses, tachycardia Respiratory: chest non-tender, lungs clear, normal breath sounds, no respiratory distress Gastrointestinal: normal bowel sounds, non tender, soft Extremities: normal range of motion, non-tender Neurologic/Psychiatric: alert, normal mood/affect, oriented x 3 Skin: warm/dry, other (erythematous areas on her scalp with areas of eschar and some open sores. The open sore on the occiput is draining purulent drainage and some blood. She also has some fluctuance to this area.) Skin Problem Location: scalp Skin Problem Character: abscess, drainage, erythema, swelling, tenderness (PELON HARPER MD) Progress/Results/Core Measures Results/Orders Lab Results Laboratory Tests Test 12/30/18 06:00 12/30/18 07:25 12/30/18 08:48 Range/Units White Blood Count 26.1 H 4.3-11.0 10^3/uL Red Blood Count 4.24 L 4.35-5.85 10^6/uL Hemoglobin 10.9 L 11.5-16.0 G/DL Hematocrit 36 35-52 % Mean Corpuscular Volume 84 80-99 FL Mean Corpuscular Hemoglobin 26 25-34 PG Mean Corpuscular Hemoglobin Concent 31 L 32-36 G/DL Red Cell Distribution Width 15.6 H 10.0-14.5 % Platelet Count 567 H 130-400 10^3/uL Mean Platelet Volume 10.7 H 7.4-10.4 FL Neutrophils (%) (Auto) 80 H 42-75 % Lymphocytes (%) (Auto) 13 12-44 % Monocytes (%) (Auto) 4 0-12 % Eosinophils (%) (Auto) 1 0-10 % Basophils (%) (Auto) 1 0-10 % Neutrophils # (Auto) 20.9 H 1.8-7.8 X 10^3 Lymphocytes # (Auto) 3.4 1.0-4.0 X 10^3 Monocytes # (Auto) 1.1 H 0.0-1.0 X 10^3 Eosinophils # (Auto) 0.3 0.0-0.3 10^3/uL Basophils # (Auto) 0.1 0.0-0.1 10^3/uL Sodium Level 126 L 135-145 MMOL/L Potassium Level 5.8 H 3.6-5.0 MMOL/L Chloride Level 85 L 98-107 MMOL/L Carbon Dioxide Level 18 L 21-32 MMOL/L Anion Gap 23 H 5-14 MMOL/L Blood Urea Nitrogen 15 7-18 MG/DL Creatinine 0.90 0.60-1.30 MG/DL Estimat Glomerular Filtration Rate > 60 BUN/Creatinine Ratio 17 Glucose Level 720 *H 70-105 MG/DL Lactic Acid Level 0.95 0.50-2.00 MMOL/L Calcium Level 10.0 8.5-10.1 MG/DL Corrected Calcium 10.2 H 8.5-10.1 MG/DL Total Bilirubin < 0.2 0.1-1.0 MG/DL Aspartate Amino Transf (AST/SGOT) 5 5-34 U/L Alanine Aminotransferase (ALT/SGPT) 5 0-55 U/L Alkaline Phosphatase 191 H 40-136 U/L Total Protein 8.8 H 6.4-8.2 GM/DL Albumin 3.8 3.2-4.5 GM/DL Urine Color PALE YELLOW Urine Clarity CLEAR Urine pH 6.0 5-9 Urine Specific Klemme <=1.005 1.016-1.022 Urine Protein NEGATIVE NEGATIVE Urine Glucose (UA) 3+ H NEGATIVE Urine Ketones NEGATIVE NEGATIVE Urine Nitrite NEGATIVE NEGATIVE Urine Bilirubin NEGATIVE NEGATIVE Urine Urobilinogen 0.2 NORMAL MG/DL Urine Leukocyte Esterase 1+ H NEGATIVE Urine RBC (Auto) TRACE H NEGATIVE Glucometer 328 H 70-110 MG/DL (PRACHI COBURN DO) My Orders Orders - PRACHI COBURN DO Ns Iv 1000 Ml (Sodium Chloride 0.9%) (12/30/18 06:28) Clindamycin 600 Mg/50 Ml Ivpb (Cleocin P (12/30/18 06:28) Ct Head W (12/30/18 06:28) Iohexol Injection (Omnipaque 350 Mg/Ml 1 (12/30/18 06:45) Received Contrast (Hold Metformin- Contr (12/30/18 06:45) Sodium Chloride Flush (Catheter Flush Sy (12/30/18 06:45) Urinalysis Dipstick Only (12/30/18 07:20) Ns Iv 1000 Ml (Sodium Chloride 0.9%) (12/30/18 07:21) Insulin (Regular) Human (Humulin R (Per (12/30/18 07:21) Accucheck Stat ONCE (12/30/18 08:52) (PRACHI COBURN DO) Medications Given in ED Current Medications Medications Dose Ordered Sig/Shanon Route Start Time Stop Time Status Last Admin Dose Admin Iohexol 37 ml ONCE ONCE IV 12/30/18 06:45 12/30/18 06:58 DC 12/30/18 07:02 80 ML Ketorolac Tromethamine 30 mg ONCE ONCE IVP 12/30/18 05:45 12/30/18 05:49 DC 12/30/18 06:00 30 MG Sodium Chloride 10 ml NEEDED PRN IV 12/30/18 06:45 12/30/18 09:30 DC 12/30/18 07:03 10 ML (PRACHI COBURN DO) Vital Signs/I&O 12/30/18 12/30/18 12/30/18 06:18 06:31 09:30 Temp 96.9 96.9 98.1 Pulse 118 118 103 Resp 16 16 20 B/P (MAP) 120/80 (93) 120/80 114/83 (93) Pulse Ox 100 100 99 O2 Delivery Room Air Room Air Room Air (PRACHI COBURN DO) Progress Progress Note : Time: 05:45 Progress Note Culture swab was obtained of the purulent drainage from the abscess located on the occiput of her scalp. The drainage comes freely chest with pressing lightly on her scalp. There is no need to perform incision or drainage as it again was draining freely on its own. Will check labs including a lactic acid and blood cultures. Will give IV fluids for hydration since she has tachycardia and a source of infection as well as consider an IV dose of vancomycin to boost the clindamycin that she is already taking since December 22. With her history of MRSA if she has an elevated Lactic acid or WBC count then she may warrant admit but will pass care to Dr. Coburn at shift change pending results and repeat evaluation. (PELON HARPER MD) Progress Note : Progress Note Ang addendum: I reevaluated patient, she was adamant that she was not going to agree to admission. She appeared to have a spontaneously draining abscess, she did have some tenderness over the right temporal scalp without crepitation or fluctuance, a CT with contrast was ordered to evaluate for tracking of the abscess and return not showing a drainable abscess or further spread of cellulitis. She did not take her clindamycin today, so I ordered an IV dose, and as she was not going to be staying I did not feel that a single dose of IV vancomycin would be helpful and would contribute to resistant infections downstream. Indeed it appears that she now has a spontaneously draining abscess and so she should begin improving spontaneously as well, particularly with assistance from antibiotics given her history of diabetes and recurrent abscesses. She was found to have significant hyperglycemia but this improved with fluid resuscitation and IV insulin. I did recommend admission for IV antibiotics again but patient does not want stay in the hospital, she understands that leaving puts her at risk for a more complicated course in the future, permanent disability or even . She does however have an appointment to see her primary care doctor tomorrow. I recommended that she speak with her doctor not only about her abscess but also about her elevated blood glucose and getting better control of her diabetes. She was asking for diet soda, I recommended that she drink water and avoid regular intake of any kind of soda. (PRACHI COBURN DO) Transfer of Care Time: 06:00 Care transferred to: Dr. Coburn (PELON HARPER MD) Departure Impression Primary Impression: Abscess or cellulitis of scalp Additional Impressions: History of MRSA infection Hyperglycemia Noncompliance Disposition: HOME, SELF-CARE Condition: Against Medical Advice Departure-Patient Inst. Referrals: NO,LOCAL PHYSICIAN (PCP/Family) Primary Care Physician Patient Instructions: Skin Abscess, Hyperglycemia, Adult PELON HARPER MD Dec 30, 2018 05:52 PRACHI COBURN DO Dec 30, 2018 09:02
[2018-12-30 06:17] LABS: BASOPHILS # (AUTO) 0.1 10^3/uL (0.0-0.1); BASOPHILS % (AUTO) 1 % (0-10); EOSINOPHILS # (AUTO) 0.3 10^3/uL (0.0-0.3); EOSINOPHILS % (AUTO) 1 % (0-10); HEMATOCRIT 36 % (35-52); HEMOGLOBIN 10.9 G/DL (11.5-16.0); LYMPHOCYTES # (AUTO) 3.4 X 10^3 (1.0-4.0); LYMPHOCYTES % (AUTO) 13 % (12-44); MEAN CORPUSCULAR HEMOGLOBIN 26 PG (25-34); MEAN CORPUSCULAR HGB CONC 31 G/DL (32-36); MEAN CORPUSCULAR VOLUME 84 FL (80-99); MEAN PLATELET VOLUME 10.7 FL (7.4-10.4); MONOCYTES # (AUTO) 1.1 X 10^3 (0.0-1.0); MONOCYTES % (AUTO) 4 % (0-12); NEUTROPHILS # (AUTO) 20.9 X 10^3 (1.8-7.8); NEUTROPHILS % (AUTO) 80 % (42-75); PLATELET COUNT 567 10^3/uL (130-400); RED CELL DISTRIBUTION WIDTH 15.6 % (10.0-14.5); WHITE BLOOD COUNT 26.1 10^3/uL (4.3-11.0)
[2018-12-30] MEDS ORDERED: CLINDAMYCIN 600 MG/50 ML IVPB 50 ML IV STA (06:28)
[2018-12-30] MEDS ORDERED: NS IV 1000 ML 1,000 ML IV STA ×2 (06:28→07:21)
[2018-12-30] MEDS ORDERED: CATHETER FLUSH 10 ML SYR IV PRN (06:45)
[2018-12-30] MEDS ORDERED: IOHEXOL 350 MG/ML 100 ML (OMNIPAQUE 350) VIAL IV ONE (06:45)
[2018-12-30] MEDS ORDERED: HOLD METFORMIN - RECEIVED CONTRAST 20 ML VIAL IV SCH (06:45)
[2018-12-30 06:54] LABS: BUN/CREATININE RATIO 17; CARBON DIOXIDE 18 MMOL/L (21-32); CHLORIDE 85 MMOL/L (98-107); GFR ESTIMATED > 60; POTASSIUM 5.8 MMOL/L (3.6-5.0); SODIUM 126 MMOL/L (135-145)
[2018-12-30 06:55] LABS: ALANINE AMINOTRANSFERASE 5 U/L (0-55); ALBUMIN 3.8 GM/DL (3.2-4.5); ALKALINE PHOSPHATASE 191 U/L (40-136); BILIRUBIN,TOTAL < 0.2 MG/DL (0.1-1.0); GLUCOSE 720 MG/DL (70-105); TOTAL PROTEIN 8.8 GM/DL (6.4-8.2)
--- OUTSIDE RECORDS SUMMARY | 2018-12-30 07:18 | XMS REPORT | Continuity of Care Document ---
Demographics x Preferred Language Unknown Marital Status Unknown Samaritan Affiliation Unknown Race Unknown Ethnic Group Unknown Author Author [facility] Organization [facility] Address Unknown Phone Unavailable Allergies Active Description [...] Procedures Code [place] [address] EMERGENCY DEPT VISIT 10/07/2014 05992 EMERGENCY DEPT VISIT 10/24/2014 14546 URINALYSIS, AUTO W/SCOPE 12/18/2014 66104 URINE TEST 12/18/2014 91482 URINE CULTURE/COLONY COUNT 12/18/2014 05960 EMERGENCY DEPT VISIT 12/18/2014 77829 URINALYSIS, AUTO W/SCOPE 07/28/2015 97934 EMERGENCY DEPT VISIT 07/28/2015 43012 EMERGENCY DEPT VISIT 12/03/2015 87137 EMERGENCY DEPT VISIT 12/03/2015 45582 ROUTINE VENIPUNCTURE 01/18/2016 21414 X-RAY EXAM OF ABDOMEN 01/18/2016 56950 COMPREHEN METABOLIC PANEL 01/18/2016 96202 URINALYSIS, AUTO W/SCOPE 01/18/2016 73955 CHORIONIC GONADOTROPIN ASSAY 01/18/2016 97635 COMPLETE CBC W/AUTO DIFF WBC 01/18/2016 44598 EMERGENCY DEPT VISIT 01/18/2016 33121 ROUTINE VENIPUNCTURE 02/18/2016 16214 COMPREHEN METABOLIC PANEL 02/18/2016 64878 DRUG SCREEN NON TLC DEVICES 02/18/2016 45998 URINALYSIS, AUTO W/SCOPE 02/18/2016 65731 TEST FOR ACETONE/KETONES 02/18/2016 24386 BLOOD GASES: PH, PO2 & PCO2 02/18/2016 84195 GLYCOSYLATED HEMOGLOBIN TEST 02/18/2016 38954 ASSAY OF LIPASE 02/18/2016 38601 CHORIONIC GONADOTROPIN ASSAY 02/18/2016 33676 COMPLETE CBC W/AUTO DIFF WBC 02/18/2016 66578 THER/PROPH/DIAG INJ, IV PUSH 02/18/2016 67868 TX/PRO/DX INJ NEW DRUG ADDON 02/18/2016 36304 EMERGENCY DEPT VISIT 02/18/2016 J1815 INSULIN INJECTION 02/18/[address] ABDOMEN&PELVIS W/ CONTRAST 03/10/2016 Q9967 LOCM 300-399MG/ML IODINE, 1ML 03/10/2016 79898 ROUTINE VENIPUNCTURE 03/14/2016 47649 METABOLIC PANEL TOTAL CA 03/14/2016 37281 URINALYSIS, AUTO W/SCOPE 03/14/2016 18293 COMPLETE CBC W/AUTO DIFF WBC 03/14/2016 45189 HYDRATE IV INFUSION, ADD-ON 03/14/2016 59621 THER/PROPH/DIAG INJ, IV PUSH 03/14/2016 74464 EMERGENCY DEPT VISIT 03/14/2016 74800 EMERGENCY DEPT VISIT 03/14/2016 J2765 METOCLOPRAMIDE HCL INJECTION 03/14/2016 J7030 NORMAL SALINE SOLUTION INFUS 03/14/2016 89360 EMERGENCY DEPT VISIT 03/25/2016 59082 EMERGENCY DEPT VISIT 03/25/2016 39947 EMERGENCY DEPT VISIT 03/31/2016 85185 EMERGENCY DEPT VISIT 03/31/2016 79573 CULTURE, BACTERIA, OTHER 04/01/2016 11168 SMEAR, GRAM STAIN 04/01/2016 Results Test Result [...] Status Pt. Type Provider Facility Loc./Unit Complaint [id number] 04/03/2016 20:30:00 04/06/2016 14:05:00 DIS Inpatient ALMAS HAWLEY [facility] 2F [id number] 04/03/2016 17:37:00 04/03/2016 20:30:00 DIS Emergency RETA GUILLERMO [facility] EMR [id number] 04/01/2016 00:00:00 04/01/2016 00:00:00 DIS Outpatient KARLOS DE JESUS [facility] WILFREDO [id number] 03/31/2016 22:34:00 03/31/2016 23:20:00 DIS Emergency VALERIE HERNANDEZ [facility] EMR [id number] 03/27/2016 00:00:00 03/27/2016 23:59:59 CLS Outpatient DIALLO ARAUZ [facility] OPS [id number] 03/25/2016 16:27:00 03/25/2016 17:52:00 DIS Emergency MALI HERNANDES [facility] EMR [id number] 03/14/2016 20:20:00 03/14/2016 22:53:00 DIS Emergency AJ THOMPSON [facility] EMR [id number] 03/10/2016 10:52:00 03/10/2016 10:52:00 DIS Outpatient MARLEEN ALMAS Rachel [facility] RAD [id number] 02/17/2016 23:41:00 02/18/2016 03:40:00 DIS Emergency RETA GUILLERMO [facility] EMR [id number] 01/18/2016 00:03:00 01/18/2016 02:05:00 DIS Emergency KRISTINE GARRETT [facility] EMR [id number] 12/03/2015 19:19:00 12/03/2015 22:15:00 DIS Emergency AJ SALGADO [facility] EMR [id number] 08/10/2015 01:31:00 08/11/2015 02:05:00 DIS Emergency KRISTINE GARRETT [facility] EMR [id number] 07/28/2015 21:20:00 07/28/2015 23:45:00 DIS Emergency RETA GUILLERMO [facility] EMR [id number] 07/13/2015 00:46:00 07/13/2015 23:59:59 CLS Emergency RETA GUILLERMO [facility] EMR [id number] 03/25/2015 15:06:00 03/25/2015 17:20:00 DIS Emergency KRISTINE GARRETT [facility] EMR [id number] 03/23/2015 17:00:00 03/23/2015 17:40:00 DIS Emergency MALI HERNANDES W [facility] EMR [id number] 01/05/2015 23:51:00 01/06/2015 01:42:00 DIS Emergency MALI HERNANDES W [facility] EMR [id number] 12/18/2014 21:52:00 12/18/2014 23:50:00 DIS Emergency VALERIE HERNANDEZ [facility] EMR [id number] 11/03/2014 01:57:00 11/03/2014 02:25:00 DIS Emergency ALMAS HAWLEY [facility] EMR [id number] 10/17/2014 22:28:00 10/17/2014 22:55:00 DIS Emergency RETA GUILLERMO [facility] EMR [id number] 10/07/2014 21:03:00 10/07/2014 22:25:00 DIS Emergency RETA GUILLERMO [facility] EMR [id number] 09/16/2014 12:12:00 09/16/2014 13:08:00 DIS Emergency KRISTINE GARRETT [facility] EMR [id number] 09/15/2014 20:26:00 09/15/2014 21:19:00 DIS Emergency RETA GUILLERMO [facility] EMR [id number] 07/10/2014 09:13:00 07/10/2014 09:13:00 DIS Outpatient CARLOTA CORTÉS [facility] RAD [id number] 03/31/2014 22:54:00 04/01/2014 00:28:00 DIS Emergency AJ SALGADO [facility] EMR [id number] 08/27/2015 00:00:00 Document Registration [id number] 08/27/2015 00:00:00 Document Registration [id number] 08/27/2015 00:00:00 Document Registration [id number] 08/27/2015 00:00:00 Document Registration [id number] 10/24/2014 22:40:00 Document Registration [id number] 08/27/2014 00:00:00 Document Registration [id number] 08/27/2014 00:00:00 Document Registration [id number] 08/27/2014 00:00:00 Document Registration [id number] 08/27/2013 00:00:00 Document Registration [id number] 08/27/2013 00:00:00 Document Registration [id number] 06/08/2018 06:54:00 06/08/2018 09:15:00 DIS Emergency MALI HERNANDES [facility] ED ed visit [id number] 03/25/2018 14:30:00 03/25/2018 23:59:59 CLS Outpatient Rena Franks [facility] [id number] 03/13/2018 05:59:00 03/13/2018 06:56:00 DIS Emergency KRISTINE GARRETT [facility] ED ed visit [id number] 03/07/2018 08:41:00 03/07/2018 09:29:00 DIS Emergency RETA GUILLERMO [facility] ED ED Visit [id number] 03/03/2018 08:47:00 03/03/2018 11:05:00 DIS Emergency KRISTINE GARRETT [facility] ED ED VISIT [id number] 01/29/2018 19:11:00 01/29/2018 20:24:00 DIS Emergency Sadia Wilks [facility] ED ED visit [id number] 01/14/2018 19:48:00 01/14/2018 20:50:00 DIS Emergency MALI HERNANDES [facility] ED ED visit [id number] 01/12/2018 14:57:39 01/12/2018 23:59:59 DIS Outpatient SHEBA APTIÑO [facility] LAB labs [id number] 01/07/2018 02:09:00 01/07/2018 03:48:00 DIS Emergency AJ THOMPSON [facility] ED ED visit [id number] 12/11/2017 14:50:10 12/11/2017 23:59:59 DIS Outpatient EVERTON BROWN [facility] RAD LBP, CHRONIC, WORSENING [id number] 11/26/2017 15:07:31 11/26/2017 23:59:59 CLS Preadmit EVERTON BROWN [facility] RAD LBP, CHRONIC, WORSENING [id number] 08/17/2017 07:27:00 08/17/2017 08:50:00 DIS Emergency EVERTON MCLAIN [facility] ED spot on head [id number] 07/30/2017 06:51:00 07/30/2017 08:30:00 DIS Emergency RETA GUILLERMO [facility] ED rash [id number] 07/21/2017 04:00:00 07/21/2017 04:29:00 DIS Emergency RETA GUILLERMO [facility] ED earache [id number] 07/15/2017 03:34:00 07/15/2017 05:48:00 DIS Emergency AJ THOMPSON [facility] ED poss infection in legs [id number] 07/02/2017 06:22:48 07/02/2017 23:59:59 DIS Outpatient IDALLO ARAUZ [facility] Surgery colonoscopy [id number] 06/16/2017 15:42:00 06/16/2017 23:59:59 CLS Preadmit DIALLO ARAUZ [facility] Surgery colonoscopy [id number] 06/11/2017 20:17:00 06/11/2017 21:15:00 DIS Emergency ALEKSANDR YVONNE [facility] ED hurts to pee [id number] 05/24/2017 19:48:00 05/24/2017 21:19:00 DIS Emergency AJ THOMPSON [facility] ED timothy [id number] 04/24/2017 09:08:17 05/15/2017 11:17:00 DIS YVONNE BILLINGSLEY [facility] INF cellulitis, diabetic ulcer [id number] 05/10/2017 05:09:00 05/10/2017 05:56:00 DIS Emergency EVERTON MCLAIN [facility] ED mouth pain [id number] 04/23/2017 18:03:00 04/23/2017 22:46:00 DIS Emergency ALEKSANDR YVONNE [facility] ED sore on back [id number] 02/13/2017 12:31:48 02/13/2017 23:59:59 CLS Outpatient ESTIVEN WEBB [facility] RAD openwound rt lower leg [id number] 01/20/2017 23:08:43 01/22/2017 10:30:00 DIS Inpatient VALERIE HERNANDEZ [facility] MS mild DKA upper airway infection [id number] 01/20/2017 19:58:00 01/20/2017 23:07:00 DIS Emergency MALI HERNANDES [facility] ED flu [id number] 01/07/2017 19:45:03 01/07/2017 23:59:59 CLS Outpatient KAYLYN SHEBA L [facility] LAB lab work [id number] 12/23/2016 20:50:00 12/23/2016 21:15:00 DIS Emergency CHANDRAKANTRETA [facility] ED JAW PAIN [id number] 11/19/2016 15:15:22 11/19/2016 23:59:59 CLS Outpatient [facility] [id number] 12/23/2016 20:59:13 Document Registration [id number] 12/10/2018 20:01:30 ACT Unknown Surenrda ROSALES, [place] [id number] 02/11/2017 08:03:00 02/25/2017 16:02:00 DIS Outpatient JON ROSALES, [id number] 03/29/2017 06:15:23 ACT Document Registration
--- NOTE | 2018-12-30 07:20 | NUR ---
RETURN FROM CT
[2018-12-30] MEDS ORDERED: inSUlin (REGULAR) HUMAN 1 UNIT/0.01 ML (CHARGE PER UNIT) IV STA (07:21)
--- NOTE | 2018-12-30 07:25 | NUR ---
URINE SPECIMEN COLLECTED FOR LAB
--- NOTE | 2018-12-30 07:30 | NUR ---
WARM BLANKET PROVIDED, RESUMING NS AT WIDE OPEN RATE POST CT. PT VERBALIZING TO FAMILY SHE IS REFUSING AN ADMISSION. "I CAN USE INSULIN AT HOME AND BRING MY OWN SUGAR DOWN." PT STATES SHE TOLD NO ADMIT.
[2018-12-30 07:37] LABS: BILIRUBIN,URINE NEGATIVE (NEGATIVE); CLARITY,URINE CLEAR; COLOR,URINE PALE YELLOW; GLUCOSE, URINE (UA) 3+ (NEGATIVE); KETONES,URINE NEGATIVE (NEGATIVE); LEUKOCYTE ESTERASE ,URINE 1+ (NEGATIVE); NITRITE,URINE NEGATIVE (NEGATIVE); PROTEIN,URINE NEGATIVE (NEGATIVE); UROBILINOGEN,URINE 0.2 MG/DL (NORMAL)
--- NOTE | 2018-12-30 07:44 | Diagnostic Imaging Report ---
PROCEDURE: CT head with contrast. TECHNIQUE: Multiple contiguous axial images were obtained through the brain after the administration of intravenous contrast. Auto Exposure Controls were utilized during the CT exam to meet ALARA standards for radiation dose reduction. INDICATION: Dermal injury on the dorsal aspect of the scalp. COMPARISON: None available. FINDINGS: No hyperdense hemorrhage is appreciated allowing for intra-articular contrast which limits evaluation for subarachnoid hemorrhage. No pathologic intracranial enhancement is appreciated. No hydrocephalus or space-occupying mass. No acute skull fracture. There is focal dermal irregularity in the dorsal aspect of the high midline scalp. No loculated fluid collection to indicate drainable abscess. IMPRESSION: 1. No features of acute intracranial process, although evaluation for small intracranial hemorrhage is limited with IV contrast administration. 2. Scalp swelling with dermal irregularity in the high posterior midline. No drainable abscess. Dictated by: Dictated on workstation # [id number]
--- NOTE | 2018-12-30 08:43 | NUR ---
#3 LITER OF NS BOLUS HAS INFUSED. DR NOTIFIED.
--- NOTE | 2018-12-30 08:48 | NUR ---
PT TAMELA IS [address] COBURN.
[2018-12-30 09:30] VITALS: BP 114/83
--- NOTE | 2018-12-30 09:30 | NUR ---
PT LEFT AMA WITH INSTRUCTIONS PRINTED DR COBURN HAD DETAILED CONVERSATION WITH PT REGARDING NEED OF ADMIT AND DIAGNOSIS. PT CONTINUES TO REPORT, "I HAVE INSULIN AT HOME. I DON'T NEED ADMIT." "I'M GOING HOME!" VITALS WERE TAKEN AND IV DC'D. PT VERBALIZES SHE REALLY NEEDED PAIN PILLS FOR DISCHARGE. FOLLOW UP CARE STRESSED TO PT.
[2018-12-30 10:04] LABS: BAND NEUTROPHILS 9 %; BASOPHILS % (MANUAL) 1 %; EOSINOPHILS % (MANUAL) 2 %; LYMPHOCYTES % (MANUAL) 11 %; METAMYELOCYTES % 1 %; NEUTROPHILS % (MANUAL) 71 %
[2018-12-30 10:05] LABS: MONOCYTES % (MANUAL) 5 %
== END 2018-12-30 09:30 | disposition left against medical advice (07) ==
LOC: EDUNIT# 05:22 → ER FS 05:25
DX: L02.811 Cutaneous abscess of head [any part, except face] (principal); L03.811 Cellulitis of head [any part, except face]; E11.65 Type 2 diabetes mellitus with hyperglycemia; F41.9 Anxiety disorder, unspecified; F32.9 Major depressive disorder, single episode, unspecified; Z91.14 Patient's other noncompliance with medication regimen; Z86.14 Personal history of Methicillin resistant Staphylococcus aureus infection; Z88.0 Allergy status to penicillin; Z88.2 Allergy status to sulfonamides; Z77.22 Contact with and (suspected) exposure to environmental tobacco smoke (acute) (chronic); Z90.89 Acquired absence of other organs
CPT/HCPCS: 36415; 70460; 80053; 81002; 82962; 83605; 85007; 85027; 87040; 87070; 87077; 87186; 87205

== ENCOUNTER 2019-01-05 12:24 | Emergency (ER) | payer MEDICAID ==
[~2019-01-05] VITALS: Ht 157.5 cm; Wt 54.0 kg
[2019-01-05] MEDS ORDERED: LIDOCAINE/EPI 2% 1:100,00 (XYLOCAINE) 20 ML VIAL INJ ONE (13:00)
--- NOTE | 2019-01-05 13:01 | ED Integumentary General ---
General Chief Complaint: Skin/Wound Problems Stated Complaint: NECK PAIN Nursing Triage Note: Has had an abscess on the back of head for two weeks. One is draining but two spots are not. Hair is crusty, states she washed it three days ago. Is very tender to touch. Has been seen for these spots and states no one will drain them. Is currently on clindamycin. History of Present Illness Date Seen by Provider: Jan 05, 2019 Time Seen by Provider: 13:24 Initial Comments Patient returning to the emergency department for evaluation of continued pain and swelling to her right posterior parietal and occipital region. She has had a complicated wound that was spontaneously draining and she was seen on December 30. This had pretty been going on and she had blood work and a CT of her head done. She had significant leukocytosis and her CT showed a soft tissue defect but no obvious collection of fluid. Patient has not had any fevers that she feels chills. She is a diabetic but has not been checking her blood sugars. She does not appear toxic but her vital signs are quite abnormal and she is tachycardic and hypotensive. She was tachycardic last time as well but she is slightly more tachycardic this time. I reviewed the susceptibilities from her wound culture and it appears that it is resistant to clindamycin that she is currently taking. Allergies and Home Medications Allergies Coded Allergies: Penicillins (Verified Allergy, Unknown, 01/05/19) Sulfa (Sulfonamide Antibiotics) (Verified Allergy, Unknown, 01/05/19) Uncoded Allergies: PCN (Allergy, Unknown, 12/22/18) Home Medications Clindamycin HCl 300 Mg Capsule, 300 MG PO Q6H Prescribed by: PELON HARPER on 12/22/18134 Naproxen 375 Mg Tablet.dr, 375 MG PO BID PRN for PAIN-MODERATE TO SEVERE Prescribed by: PELON HARPER on 12/22/18134 Patient Home Medication List Home Medication List Reviewed: Yes Review of Systems Review of Systems Constitutional: chills; No fever Respiratory: No cough Cardiovascular: No chest pain Gastrointestinal: No nausea, No vomiting Musculoskeletal: neck pain Skin: lesions, lumps Past Bhfsami-Azyjcq-Rlmhqa Hx Patient Social History Type Used: Cigarettes 2nd Hand Smoke Exposure: Yes Recent Foreign Travel: No Contact w/Someone Who Travel: No Recent Infectious Disease Expo: No Recent Hopitalizations: No Seasonal Allergies Seasonal Allergies: No Past Medical History Surgeries: Yes ("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") Tonsillectomy Cardiac: No Neurological: No Sexually Transmitted Disease: No Genitourinary: No Gastrointestinal: No Musculoskeletal: No Endocrine: Yes Diabetes, Insulin dep HEENT: Yes (WEARS GLASSES) Loss of Vision: Bilateral Psychosocial: Yes Anxiety, Depression Integumentary: Yes (MRSA) Recent Skin Changes Blood Disorders: No Physical Exam Vital Signs Vital Signs - First Documented 01/05/19 12:33 Temp 97.7 Pulse 126 Resp 21 B/P (MAP) 96/77 (83) Pulse Ox 100 Capillary Refill : Less Than 3 Seconds General Appearance: WD/WN, no apparent distress Neck: other (tenderness of R occipital region with overlying swelling) Cardiovascular: no murmur, tachycardia Respiratory: no respiratory distress, no accessory muscle use Skin: other (she has a spontaneously draining lesion on her posterior parietal region on the right side. On exam it feels that there is a soft tissue crater with underlying purulence that is going from the wound inferiorly to her right occipital region. The swelling there was incised and drained and there was purulence draining from there as well. I couldn't palpate the wound and continuously milk out purulence for 10 minutes straight. There is small amount of surrounding cellulitis on the superior wound but no other cellulitis noted.) Procedures/Interventions I&D : Blade Size: 11 I & D Procedure: betadine prep, sterile drapes applied, sterile dressing applied, Wound Packing Packing/Drain: Idoform 10/01 Progress Wound prepped and draped in normal sterile fashion and approximately 5 cc of 1% lidocaine were epinephrine was used to anesthetize the wound. Approximate 1.5 cm incision was made with purulence expressed from the wound as well as milking the wound inferiorly and posteriorly to have 2 draining sites. Progress/Results/Core Measures Results/Orders My Orders Orders - AJ BOYD DO Lidocaine/Epi 2% 1:100,000 (Xylocaine/Ep (01/05/19 13:00) Cefazolin 2 Gm Iv Premixed (Ancef 2 Gm P (01/05/19 13:15) Sulfamethoxazole/Trimet Ds Tab (Bactrim (01/05/19 13:15) Doxycycline Hyclate Tablet (Vibramycin T (01/05/19 13:30) Cefazolin Injection (Ancef Injection) (01/05/19 13:30) Vital Signs/I&O 01/05/19 12:33 Temp 97.7 Pulse 126 Resp 21 B/P (MAP) 96/77 (83) Pulse Ox 100 Blood Pressure Mean: 83 Progress Progress Note : Progress Note I explained to patient that this wound is quite atypical and I have not seen anything like it before with such an extensive scalp wound and underlying purulence that can be continuously expressed. She currently is not being treated with proper antibiotics so she will be changed. Wanted to have her admitted to the hospital and have labs checked but she refused. I told her that she should be admitted to the hospital given I cannot completely understand her wound and she is tachycardic and hypotensive and may be septic. I told her that she can have extreme morbidity as well as mortality from sepsis. She was not willing to be admitted to the hospital as she says she could not be admitted this time but she will keep a close eye on her wound and come back with any concerns. I told her all he would have to offer her currently is changing her antibiotics to something that she is susceptible to. She was given a dose of Ancef here and I encouraged her to try and take Bactrim as she did not know what her allergy was to sulfa. She refused so I will try doxycycline in addition to Keflex as an outpatient. Patient aware and agreeable with plan for discharge and verbalized understanding of the need for short-term follow-up and strict ED return precautions discussed worsening pain or fevers or other general concerns. Departure Impression Primary Impression: Abscess or cellulitis of scalp Additional Impressions: Tachycardia Hypotension Disposition: 01 HOME, SELF-CARE Condition: Unchanged Departure-Patient Inst. Decision time for Depature: 13:32 Referrals: EVERTON BROWN (PCP) Primary Care Physician MAXIMILIAN PONCE DO (Family) Primary Care Physician Patient Instructions: Abscess Incision and Drainage (DC) Scripts Doxycycline Hyclate (Doxycycline Hyclate) 100 Mg Tablet 100 MG PO BID, #14 TAB 0 Refills Prov: AJ BOYD DO 01/05/19 Cephalexin (Keflex) 500 Mg Capsule 500 MG PO TID for 7 Days, #21 CAP Prov: AJ BOYD DO 01/05/19 AJ BOYD DO Jan 05, 2019 13:00
[2019-01-05] MEDS ORDERED: ceFAZolin 2 GM IV Premixed 50 ML IV ONE (13:15)
[2019-01-05] MEDS ORDERED: TRIM/SULFAMETH 160/800 (SEPTRA DS) TAB PO ONE (13:15)
[2019-01-05] MEDS ORDERED: WATER (STERILE) FOR INJECTION 10 ML ONE (13:24)
[2019-01-05] MEDS ORDERED: ceFAZolin INJECTION 1,000 MG VIAL IM ONE (13:30)
[2019-01-05] MEDS ORDERED: DOXYCYCLINE 100 MG (VIBRAMYCIN) TABLET PO SCH (13:30)
[2019-01-05] MEDS ORDERED: CEPH-507 PO (13:34)
[2019-01-05] MEDS ORDERED: DOXY100T2 PO (13:34)
[2019-01-05 13:55] VITALS: BP 76/44
--- NOTE | 2019-01-05 14:00 | NUR ---
Patient has been tachycardic and hypotensive since arrival to ED. Has told physician she does not want blood work or to be admitted. This Rn took patients blood pressure again and is 76/44. This RN explained again that her infection is very serious and is causing her blood pressure to be low. Patient is still insisting on going home, stating that the last time she was in the hospital no one came to visit her. This RN stated again that her condition is very serious and if she goes home she could get worse very quickly and could be life threatening. Patient is still wanting to go home and states "I'll come back if I get worse."
--- OUTSIDE RECORDS SUMMARY | 2019-01-05 14:29 | XMS REPORT | Continuity of Care Document ---
Demographics x Preferred Language Unknown Marital Status Unknown Zoroastrianism Affiliation Unknown Race Unknown Ethnic Group Unknown Author Organization Unknown Address Unknown Allergies Active Description Code Type Severity Reaction [...] Procedures Code [place] [address] EMERGENCY DEPT VISIT 10/07/2014 61502 EMERGENCY DEPT VISIT 10/24/2014 69053 URINALYSIS, AUTO W/SCOPE 12/18/2014 42458 URINE TEST 12/18/2014 37821 URINE CULTURE/COLONY COUNT 12/18/2014 68176 EMERGENCY DEPT VISIT 12/18/2014 49469 URINALYSIS, AUTO W/SCOPE 07/28/2015 02417 EMERGENCY DEPT VISIT 07/28/2015 92192 EMERGENCY DEPT VISIT 12/03/2015 38599 EMERGENCY DEPT VISIT 12/03/2015 61156 ROUTINE VENIPUNCTURE 01/18/2016 08928 X-RAY EXAM OF ABDOMEN 01/18/2016 09250 COMPREHEN METABOLIC PANEL 01/18/2016 80064 URINALYSIS, AUTO W/SCOPE 01/18/2016 83923 CHORIONIC GONADOTROPIN ASSAY 01/18/2016 59678 COMPLETE CBC W/AUTO DIFF WBC 01/18/2016 66757 EMERGENCY DEPT VISIT 01/18/2016 31068 ROUTINE VENIPUNCTURE 02/18/2016 90382 COMPREHEN METABOLIC PANEL 02/18/2016 85053 DRUG SCREEN NON TLC DEVICES 02/18/2016 44531 URINALYSIS, AUTO W/SCOPE 02/18/2016 38983 TEST FOR ACETONE/KETONES 02/18/2016 89356 BLOOD GASES: PH, PO2 & PCO2 02/18/2016 92631 GLYCOSYLATED HEMOGLOBIN TEST 02/18/2016 13598 ASSAY OF LIPASE 02/18/2016 40799 CHORIONIC GONADOTROPIN ASSAY 02/18/2016 95076 COMPLETE CBC W/AUTO DIFF WBC 02/18/2016 85873 THER/PROPH/DIAG INJ, IV PUSH 02/18/2016 91818 TX/PRO/DX INJ NEW DRUG ADDON 02/18/2016 93262 EMERGENCY DEPT VISIT 02/18/2016 J1815 INSULIN INJECTION 02/18/[address] ABDOMEN&PELVIS W/ CONTRAST 03/10/2016 Q9967 LOCM 300-399MG/ML IODINE, 1ML 03/10/2016 45616 ROUTINE VENIPUNCTURE 03/14/2016 69814 METABOLIC PANEL TOTAL CA 03/14/2016 85929 URINALYSIS, AUTO W/SCOPE 03/14/2016 51173 COMPLETE CBC W/AUTO DIFF WBC 03/14/2016 91058 HYDRATE IV INFUSION, ADD-ON 03/14/2016 38151 THER/PROPH/DIAG INJ, IV PUSH 03/14/2016 70965 EMERGENCY DEPT VISIT 03/14/2016 76591 EMERGENCY DEPT VISIT 03/14/2016 J2765 METOCLOPRAMIDE HCL INJECTION 03/14/2016 J7030 NORMAL SALINE SOLUTION INFUS 03/14/2016 19992 EMERGENCY DEPT VISIT 03/25/2016 42005 EMERGENCY DEPT VISIT 03/25/2016 31861 EMERGENCY DEPT VISIT 03/31/2016 56367 EMERGENCY DEPT VISIT 03/31/2016 07025 CULTURE, BACTERIA, OTHER 04/01/2016 19680 SMEAR, GRAM STAIN 04/01/2016 Results Test Result [...] Status Pt. Type Provider Facility Loc./Unit Complaint [id number] 04/03/2016 20:30:00 04/06/2016 14:05:00 DIS Inpatient ALMAS HAWLEY [facility] 2F [id number] 04/03/2016 17:37:00 04/03/2016 20:30:00 DIS Emergency RETA GUILLERMO [facility] EMR [id number] 04/01/2016 00:00:00 04/01/2016 00:00:00 DIS Outpatient DE JESUS KARLOS Hernandez [facility] WILFREDO [id number] 03/31/2016 22:34:00 03/31/2016 23:20:00 DIS Emergency VALERIE HERNANDEZ [facility] EMR [id number] 03/27/2016 00:00:00 03/27/2016 23:59:59 CLS Outpatient DIALLO ARAUZ [facility] OPS [id number] 03/25/2016 16:27:00 03/25/2016 17:52:00 DIS Emergency MALI HERNANDES [facility] EMR [id number] 03/14/2016 20:20:00 03/14/2016 22:53:00 DIS Emergency AJ THOMPSON [facility] EMR [id number] 03/10/2016 10:52:00 03/10/2016 10:52:00 DIS Outpatient MARLEEN ALMAS Rachel [facility] RAD [id number] 02/17/2016 23:41:00 02/18/2016 03:40:00 DIS Emergency RETA GUILLERMO [facility] EMR [id number] 01/18/2016 00:03:00 01/18/2016 02:05:00 DIS Emergency KRISTINE GARRETT [facility] EMR [id number] 12/03/2015 19:19:00 12/03/2015 22:15:00 DIS Emergency AJ SALGADO [facility] EMR [id number] 08/10/2015 01:31:00 08/11/2015 02:05:00 DIS Emergency KRISTINE GARRETT [facility] EMR [id number] 07/28/2015 21:20:00 07/28/2015 23:45:00 DIS Emergency RETA GUILLERMO [facility] EMR [id number] 07/13/2015 00:46:00 07/13/2015 23:59:59 CLS Emergency RETA GUILLERMO [facility] EMR [id number] 03/25/2015 15:06:00 03/25/2015 17:20:00 DIS Emergency KRISTINE GARRETT W [facility] EMR [id number] 03/23/2015 17:00:00 03/23/2015 17:40:00 DIS Emergency MALI HERNANDES W [facility] EMR [id number] 01/05/2015 23:51:00 01/06/2015 01:42:00 DIS Emergency MALI HERNANDES W [facility] EMR [id number] 12/18/2014 21:52:00 12/18/2014 23:50:00 DIS Emergency VALERIE HERNANDEZ [facility] EMR [id number] 11/03/2014 01:57:00 11/03/2014 02:25:00 DIS Emergency ALMAS HAWLEY [facility] EMR [id number] 10/17/2014 22:28:00 10/17/2014 22:55:00 DIS Emergency RETA GUILLERMO [facility] EMR [id number] 10/07/2014 21:03:00 10/07/2014 22:25:00 DIS Emergency RETA GUILLERMO [facility] EMR [id number] 09/16/2014 12:12:00 09/16/2014 13:08:00 DIS Emergency KRISTINE GARRETT [facility] EMR [id number] 09/15/2014 20:26:00 09/15/2014 21:19:00 DIS Emergency RETA GUILLERMO [facility] EMR [id number] 07/10/2014 09:13:00 07/10/2014 09:13:00 DIS Outpatient CARLOTA CORTÉS [facility] RAD [id number] 03/31/2014 22:54:00 04/01/2014 00:28:00 DIS Emergency AJ SALGADO [facility] EMR [id number] 08/27/2015 00:00:00 Document Registration [id number] 08/27/2015 00:00:00 Document Registration [id number] 08/27/2015 00:00:00 Document Registration [id number] 08/27/2015 00:00:00 Document Registration [id number] 10/24/2014 22:40:00 Document Registration [id number] 08/27/2014 00:00:00 Document Registration [id number] 08/27/2014 00:00:00 Document Registration [id number] 08/27/2014 00:00:00 Document Registration [id number] 08/27/2013 00:00:00 Document Registration [id number] 08/27/2013 00:00:00 Document Registration [id number] 06/08/2018 06:54:00 06/08/2018 09:15:00 DIS Emergency MALI HERNANDES [facility] ED ed visit [id number] 03/25/2018 14:30:00 03/25/2018 23:59:59 CLS Outpatient Rena Franks [facility] [id number] 03/13/2018 05:59:00 03/13/2018 06:56:00 DIS Emergency KRISTINE GARRETT [facility] ED ed visit [id number] 03/07/2018 08:41:00 03/07/2018 09:29:00 DIS Emergency RETA GUILLERMO [facility] ED ED Visit [id number] 03/03/2018 08:47:00 03/03/2018 11:05:00 DIS Emergency KRISTINE GARRETT [facility] ED ED VISIT [id number] 01/29/2018 19:11:00 01/29/2018 20:24:00 DIS Emergency Sadia Wilks [facility] ED ED visit [id number] 01/14/2018 19:48:00 01/14/2018 20:50:00 DIS Emergency MALI HERNANDES [facility] ED ED visit [id number] 01/12/2018 14:57:39 01/12/2018 23:59:59 DIS Outpatient SHEBA PATIÑO [facility] LAB labs [id number] 01/07/2018 02:09:00 01/07/2018 03:48:00 DIS Emergency AJ THOMPSON [facility] ED ED visit [id number] 12/11/2017 14:50:10 12/11/2017 23:59:59 DIS Outpatient EVERTON BROWN [facility] RAD LBP, CHRONIC, WORSENING [id number] 11/26/2017 15:07:31 11/26/2017 23:59:59 CLS Preadmit STEPHANIE EVERTON Mary [facility] RAD LBP, CHRONIC, WORSENING [id number] 08/17/2017 07:27:00 08/17/2017 08:50:00 DIS Emergency EVERTON MCLAIN [facility] ED spot on head [id number] 07/30/2017 06:51:00 07/30/2017 08:30:00 DIS Emergency RETA GUILLERMO [facility] ED rash [id number] 07/21/2017 04:00:00 07/21/2017 04:29:00 DIS Emergency RETA GUILLERMO [facility] ED earache [id number] 07/15/2017 03:34:00 07/15/2017 05:48:00 DIS Emergency AJ THOMPSON [facility] ED poss infection in legs [id number] 07/02/2017 06:22:48 07/02/2017 23:59:59 DIS Outpatient DIALLO ARAUZ [facility] Surgery colonoscopy [id number] 06/16/2017 15:42:00 06/16/2017 23:59:59 CLS Preadmit DIALLO ARAUZ [facility] Surgery colonoscopy [id number] 06/11/2017 20:17:00 06/11/2017 21:15:00 DIS Emergency YVONNE BRANDON [facility] ED hurts to pee [id number] 05/24/2017 19:48:00 05/24/2017 21:19:00 DIS Emergency AJ THOMPSON [facility] ED timothy [id number] 04/24/2017 09:08:17 05/15/2017 11:17:00 DIS R ALEKSANDR YVONNE [facility] INF cellulitis, diabetic ulcer [id number] 05/10/2017 05:09:00 05/10/2017 05:56:00 DIS Emergency EVERTON MCLAIN [facility] ED mouth pain [id number] 04/23/2017 18:03:00 04/23/2017 22:46:00 DIS Emergency YVONNE BRANDON [facility] ED sore on back [id number] 02/13/2017 12:31:48 02/13/2017 23:59:59 CLS Outpatient ESTIVEN WEBB [facility] RAD openwound rt lower leg [id number] 01/20/2017 23:08:43 01/22/2017 10:30:00 DIS Inpatient VALERIE HERNANDEZ [facility] MS mild DKA upper airway infection [id number] 01/20/2017 19:58:00 01/20/2017 23:07:00 DIS Emergency MALI HERNANDES [facility] ED flu [id number] 01/07/2017 19:45:03 01/07/2017 23:59:59 CLS Outpatient SHEBA PATIÑO [facility] LAB lab work [id number] 12/23/2016 20:50:00 12/23/2016 21:15:00 DIS Emergency RETA STALLINGS [facility] ED JAW PAIN [id number] 11/19/2016 15:15:22 11/19/2016 23:59:59 CLS Outpatient [facility] [id number] 12/23/2016 20:59:13 Document Registration [id number] 12/10/2018 20:01:30 ACT Unknown Surendra ROSALES, Diallo [id number] 02/11/2017 08:03:00 02/25/2017 16:02:00 DIS Outpatient JON ROSALES [id number] 03/29/2017 06:15:23 ACT Document Registration
== END 2019-01-05 14:00 | disposition home or self-care (01) ==
LOC: EDUNIT# 12:24 → ER FS 12:26
DX: L03.811 Cellulitis of head [any part, except face] (principal); R00.0 Tachycardia, unspecified; I95.9 Hypotension, unspecified; D72.829 Elevated white blood cell count, unspecified; E11.9 Type 2 diabetes mellitus without complications; F41.9 Anxiety disorder, unspecified; F32.9 Major depressive disorder, single episode, unspecified; Z77.22 Contact with and (suspected) exposure to environmental tobacco smoke (acute) (chronic); Z90.89 Acquired absence of other organs; Z88.0 Allergy status to penicillin; Z86.14 Personal history of Methicillin resistant Staphylococcus aureus infection; Z88.2 Allergy status to sulfonamides
CPT/HCPCS: 99284

== ENCOUNTER 2019-02-13 23:37 | Emergency (ER) | payer MEDICAID ==
[~2019-02-13] VITALS: Ht 157.5 cm; Wt 59.0 kg
[~2019-02-13 23:37] MED LIST changes: +CEPH-507 PO; +DOXY100T2 PO
[2019-02-14] MEDS ORDERED: NS IV 1000 ML 1,000 ML IV STA (00:54)
[2019-02-14] MEDS ORDERED: fentaNYL INJECTION 100 MCG/2 ML AMP IVP ONE (01:15)
--- OUTSIDE RECORDS SUMMARY | 2019-02-14 01:22 | XMS REPORT | Continuity of Care Document ---
Demographics x Preferred Language Unknown Marital Status Unknown Episcopalian Affiliation Unknown Race Unknown Ethnic Group Unknown Author Organization Unknown Address Unknown Allergies Active Description Code Type Severity Reaction Onset Reported/Identified Relationship to Patient Clinical Status Yes Penicillins 476 Drug Allergy N/A Rash~Swelling Yes Sulfa (Sulfonamide Antibiotics) 491 Drug Allergy N/A N/A Confirmed or Verified Medications There is no data. Problems Date Dx Coded Attending Type Code Diagnosis Diagnosed By 10/07/2014 RETA GUILLERMO 110.5 DERMATOPHYTOSIS OF BODY 10/07/2014 RETA GUILLERMO 455.6 HEMORRHOIDS NOS 10/07/2014 RETA GUILLERMO 564.00 CONSTIPATION NOS 10/07/2014 RETA GUILLERMO 569.3 RECTAL ANAL HEMORRHAGE 10/07/2014 RETA GUILLERMO 780.52 INSOMNIA NEC 10/24/2014 D 373.11 HORDEOLUM EXTERNUM 10/24/2014 A 379.93 REDNESS/DISCHARGE OF EYE 12/18/2014 VALERIE HERNANDEZ 112.1 CANDIDAL VULVOVAGINITIS 12/18/2014 VALERIE HERNANDEZ 250.00 DM2/NOS UNCOMP NSU 12/18/2014 VALERIE HERNANDEZ 623.5 NONINFECT VAG LEUKORRHEA 12/18/2014 VALERIE HERNANDEZ 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 06/04/2017 Surendra ROSALES, Diallo K52.9 Diarrhea, chronic Procedures Code Description [place] [address] EMERGENCY DEPT VISIT 10/07/2014 05112 EMERGENCY DEPT VISIT 10/24/2014 34436 URINALYSIS, AUTO W/SCOPE 12/18/2014 93455 URINE TEST 12/18/2014 77476 URINE CULTURE/COLONY COUNT 12/18/2014 87991 EMERGENCY DEPT VISIT 12/18/2014 96891 URINALYSIS, AUTO W/SCOPE 07/28/2015 14906 EMERGENCY DEPT VISIT 07/28/2015 82715 EMERGENCY DEPT VISIT 12/03/2015 81799 EMERGENCY DEPT VISIT 12/03/2015 85577 ROUTINE VENIPUNCTURE 01/18/2016 12561 X-RAY EXAM OF ABDOMEN 01/18/2016 41768 COMPREHEN METABOLIC PANEL 01/18/2016 47619 URINALYSIS, AUTO W/SCOPE 01/18/2016 62596 CHORIONIC GONADOTROPIN ASSAY 01/18/2016 19655 COMPLETE CBC W/AUTO DIFF WBC 01/18/2016 16311 EMERGENCY DEPT VISIT 01/18/2016 61461 ROUTINE VENIPUNCTURE 02/18/2016 82256 COMPREHEN METABOLIC PANEL 02/18/2016 89003 DRUG SCREEN NON TLC DEVICES 02/18/2016 35385 URINALYSIS, AUTO W/SCOPE 02/18/2016 51050 TEST FOR ACETONE/KETONES 02/18/2016 25797 BLOOD GASES: PH, PO2 & PCO2 02/18/2016 26913 GLYCOSYLATED HEMOGLOBIN TEST 02/18/2016 57416 ASSAY OF LIPASE 02/18/2016 87418 CHORIONIC GONADOTROPIN ASSAY 02/18/2016 18802 COMPLETE CBC W/AUTO DIFF WBC 02/18/2016 62525 THER/PROPH/DIAG INJ, IV PUSH 02/18/2016 46522 TX/PRO/DX INJ NEW DRUG ADDON 02/18/2016 78271 EMERGENCY DEPT VISIT 02/18/2016 J1815 INSULIN INJECTION 02/18/[address] ABDOMEN&PELVIS W/CONTRAST 03/10/2016 Q9967 LOCM 300-399MG/ML IODINE,1ML 03/10/2016 78849 ROUTINE VENIPUNCTURE 03/14/2016 78045 METABOLIC PANEL TOTAL CA 03/14/2016 83236 URINALYSIS, AUTO W/SCOPE 03/14/2016 83212 COMPLETE CBC W/AUTO DIFF WBC 03/14/2016 08934 HYDRATE IV INFUSION, ADD-ON 03/14/2016 85825 THER/PROPH/DIAG INJ, IV PUSH 03/14/2016 08203 EMERGENCY DEPT VISIT 03/14/2016 06846 EMERGENCY DEPT VISIT 03/14/2016 J2765 METOCLOPRAMIDE HCL INJECTION 03/14/2016 J7030 NORMAL SALINE SOLUTION INFUS 03/14/2016 87086 EMERGENCY DEPT VISIT 03/25/2016 68999 EMERGENCY DEPT VISIT 03/25/2016 40764 EMERGENCY DEPT VISIT 03/31/2016 33715 EMERGENCY DEPT VISIT 03/31/2016 37371 CULTURE, BACTERIA, OTHER 04/01/2016 20180 SMEAR, GRAM STAIN 04/01/2016 Results Test Result [...] Status Pt. Type Provider Facility Loc./Unit Complaint [id number] 04/03/2016 20:30:00 04/06/2016 14:05:00 DIS Inpatient ALMAS HAWLEY [facility] 2F [id number] 04/03/2016 17:37:00 04/03/2016 20:30:00 DIS Emergency RETA GUILLERMO [facility] EMR [id number] 04/01/2016 00:00:00 04/01/2016 00:00:00 DIS Outpatient KARLOS DE JESUS [facility] WILFREDO [id number] 03/31/2016 22:34:00 03/31/2016 23:20:00 DIS Emergency VALERIE HERNANDEZ Chary [facility] EMR [id number] 03/27/2016 00:00:00 03/27/2016 23:59:59 CLS Outpatient DIALLO ARAUZ Tutu [facility] OPS [id number] 03/25/2016 16:27:00 03/25/2016 17:52:00 DIS Emergency MALI HERNANDES [facility] EMR [id number] 03/14/2016 20:20:00 03/14/2016 22:53:00 DIS Emergency AJ THOMPSON [facility] EMR [id number] 03/10/2016 10:52:00 03/10/2016 10:52:00 DIS Outpatient ALMAS HAWLEY W [facility] RAD [id number] 02/17/2016 23:41:00 02/18/2016 03:40:00 DIS Emergency RETA GUILLERMO [facility] EMR [id number] 01/18/2016 00:03:00 01/18/2016 02:05:00 DIS Emergency KRISTINE GARRETT [facility] EMR [id number] 12/03/2015 19:19:00 12/03/2015 22:15:00 DIS Emergency AJ SALGADO [facility] EMR [id number] 08/10/2015 01:31:00 08/11/2015 02:05:00 DIS Emergency KRISTINE GARRETT [facility] EMR [id number] 07/28/2015 21:20:00 07/28/2015 23:45:00 DIS Emergency RETA GUILLERMO [facility] EMR [id number] 07/13/2015 00:46:00 07/13/2015 23:59:59 CLS Emergency RETA GUILLERMO [facility] EMR [id number] 03/25/2015 15:06:00 03/25/2015 17:20:00 DIS Emergency GERRY KRISTINE W [facility] EMR [id number] 03/23/2015 17:00:00 03/23/2015 17:40:00 DIS Emergency MALI HERNANDES W [facility] EMR [id number] 01/05/2015 23:51:00 01/06/2015 01:42:00 DIS Emergency MARY LOUEmreMALI W [facility] EMR [id number] 12/18/2014 21:52:00 12/18/2014 23:50:00 DIS Emergency DAMONNICOLEVALERIE Chary [facility] EMR [id number] 11/03/2014 01:57:00 11/03/2014 02:25:00 DIS Emergency ALMAS HAWLEY Rachel [facility] EMR [id number] 10/17/2014 22:28:00 10/17/2014 22:55:00 DIS Emergency RETA GUILLERMO [facility] EMR [id number] 10/07/2014 21:03:00 10/07/2014 22:25:00 DIS Emergency RETA GUILLERMO [facility] EMR [id number] 09/16/2014 12:12:00 09/16/2014 13:08:00 DIS Emergency KRISTINE GARRETT [facility] EMR [id number] 09/15/2014 20:26:00 09/15/2014 21:19:00 DIS Emergency RETA GUILLERMO [facility] EMR [id number] 07/10/2014 09:13:00 07/10/2014 09:13:00 DIS Outpatient CARLOTA CORTÉS [facility] RAD [id number] 03/31/2014 22:54:00 04/01/2014 00:28:00 DIS Emergency AJ SALGADO [facility] EMR [id number] 08/27/2015 00:00:00 Document Registration [id number] 08/27/2015 00:00:00 Document Registration [id number] 08/27/2015 00:00:00 Document Registration [id number] 08/27/2015 00:00:00 Document Registration [id number] 10/24/2014 22:40:00 Document Registration [id number] 08/27/2014 00:00:00 Document Registration [id number] 08/27/2014 00:00:00 Document Registration [id number] 08/27/2014 00:00:00 Document Registration [id number] 08/27/2013 00:00:00 Document Registration [id number] 08/27/2013 00:00:00 Document Registration [id number] 12/10/2018 20:01:30 ACT Unknown Diallo Arauz MD [id number] 02/03/2019 09:20:00 02/03/2019 23:59:59 CLS [facility]
[2019-02-14 01:52] LABS: HEMOGLOBIN 10.2 G/DL (11.5-16.0); WHITE BLOOD COUNT 21.5 10^3/uL (4.3-11.0)
[2019-02-14 01:55] LABS: RED CELL DISTRIBUTION WIDTH 16.3 % (10.0-14.5)
[2019-02-14 01:56] LABS: MEAN PLATELET VOLUME 10.7 FL (7.4-10.4)
[2019-02-14 02:03] LABS: BUN/CREATININE RATIO 23; CARBON DIOXIDE 20 MMOL/L (21-32); CHLORIDE 93 MMOL/L (98-107); CREATININE SERUM 0.95 MG/DL (0.60-1.30); GFR ESTIMATED > 60; POTASSIUM 4.6 MMOL/L (3.6-5.0); SODIUM 132 MMOL/L (135-145)
[2019-02-14 02:05] LABS: CALCIUM 9.9 MG/DL (8.5-10.1); GLUCOSE 583 MG/DL (70-105)
[2019-02-14] MEDS ORDERED: inSUlin (REGULAR) HUMAN 1 UNIT/0.01 ML (CHARGE PER UNIT) IV STA (02:08)
[2019-02-14 02:15] LABS: CLARITY,URINE TURBID; COLOR,URINE YELLOW; PROTEIN,URINE TRACE (NEGATIVE)
[2019-02-14 02:16] LABS: BACTERIA,URINE LARGE /HPF; BILIRUBIN,URINE NEGATIVE (NEGATIVE); GLUCOSE, URINE (UA) 3+ (NEGATIVE); KETONES,URINE NEGATIVE (NEGATIVE); LEUKOCYTE ESTERASE ,URINE 1+ (NEGATIVE); NITRITE,URINE NEGATIVE (NEGATIVE); UROBILINOGEN,URINE 0.2 MG/DL (NORMAL)
[2019-02-14] MEDS ORDERED: CIPROFLOXACIN 500 MG (CIPRO) TABLET PO STA (02:30)
[2019-02-14] MEDS ORDERED: CIPR500T4 PO (02:36)
--- NOTE | 2019-02-14 02:37 | ED General ---
General Chief Complaint: - Urinary Stated Complaint: PAIN IN STOMACHE/BACK BURNING ON URINATION Nursing Triage Note: Pt arrived by private car with chief complaint of possible UTI, abd pain and back pain for the the past 4 days. Pt was alert, oriented and ambulatory at arrival. Pt was able to walk back to room and give urine sample. Vital signs were done and BS done, because of patient having past/current medical history of diabetes. Nursing Sepsis Screen: No Definite Risk History of Present Illness Date Seen by Provider: February 14, 2019 Time Seen by Provider: 00:30 This is a 23-year-old female with a history of diabetes here with about 4 days of dysuria, lower abdominal discomfort. She does feel some discomfort across the diffuse low back as well. No fever or chills. No vomiting. No change in bowel movements. No vaginal bleeding or discharge. Allergies and Home Medications Allergies Coded Allergies: Penicillins (Verified Allergy, Unknown, 01/05/19) Sulfa (Sulfonamide Antibiotics) (Verified Allergy, Unknown, 01/05/19) Uncoded Allergies: PCN (Allergy, Unknown, 12/22/18) Home Medications Cephalexin 500 Mg Capsule, 500 MG PO TID Prescribed by: AJ BOYD on 01/05/19 1334 Ciprofloxacin HCl 500 Mg Tablet, 500 MG PO BID Prescribed by: PRACHI COBURN on 02/14/19 0236 Clindamycin HCl 300 Mg Capsule, 300 MG PO Q6H Prescribed by: PELON HARPER on 12/22/18 013 Doxycycline Hyclate 100 Mg Tablet, 100 MG PO BID Prescribed by: AJ BOYD on 01/05/19 1334 Naproxen 375 Mg Tablet.dr, 375 MG PO BID PRN for PAIN-MODERATE TO SEVERE Prescribed by: PELON HARPER on 12/22/18 013 Patient Home Medication List Home Medication List Reviewed: Yes Review of Systems Review of Systems Constitutional: no symptoms reported EENTM: no symptoms reported Respiratory: no symptoms reported Cardiovascular: no symptoms reported Gastrointestinal: see HPI Genitourinary: see HPI Musculoskeletal: see HPI Skin: no symptoms reported Psychiatric/Neurological: No Symptoms Reported Hematologic/Lymphatic: No Symptoms Reported Past Ixmfkxa-Kvjgdx-Woaodz Hx Past Med/Social Hx: Reviewed Nursing Past Med/Soc Hx Patient Social History Alcohol Use: Denies Use Recreational Drug Use: No Type Used: Cigarettes 2nd Hand Smoke Exposure: Yes Recent Foreign Travel: No Contact w/Someone Who Travel: No Recent Infectious Disease Expo: No Recent Hopitalizations: No Physical Abuse: No Sexual Abuse: No Mistreated: No Fear: No Seasonal Allergies Seasonal Allergies: No Past Medical History Surgeries: Yes ("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 0oz. 58.214641lx; BMI Method:Estimated General Appearance: No Apparent Distress HEENT: Moist Mucous Membranes Neck: Supple Respiratory: Lungs Clear Cardiovascular: Regular Rate, Rhythm, Normal Peripheral Pulses Gastrointestinal: Soft, Other (minimal mid suprapubic tenderness without rebound rigidity or guarding) Back: Other (mild bilateral CVA tenderness to percussion) Neurologic/Psychiatric: Alert, Oriented x3; No Abnormal Gait Skin: Warm/Dry Progress/Results/Core Measures Suspected Sepsis Recent Fever Within 48 Hours: No Infection Criteria Present: Suspected New Infection New/Unexplained Altered Menta: No Sepsis Screen: No Definite Risk SIRS Temperature:97.3 Pulse: 112 Respiratory Rate: 18 Laboratory Tests 02/14/19 01:12: White Blood Count 21.5H Blood Pressure 125 /83 Mean: 97 Laboratory Tests 02/14/19 01:12: Creatinine 0.95, Platelet Count 356 Results/Orders Lab Results Laboratory Tests Test 02/14/19 00:28 02/14/19 00:51 02/14/19 01:12 02/14/19 02:32 Range/Units Urine Color YELLOW Urine Clarity TURBID Urine pH 6.0 5-9 Urine Specific [place] 1.010 L 1.016-1.022 Urine Protein TRACE H NEGATIVE Urine Glucose (UA) 3+ H NEGATIVE Urine Ketones NEGATIVE NEGATIVE Urine Nitrite NEGATIVE NEGATIVE Urine Bilirubin NEGATIVE NEGATIVE Urine Urobilinogen 0.2 NORMAL MG/DL Urine Leukocyte Esterase 1+ H NEGATIVE Urine RBC (Auto) TRACE-I NEGATIVE Urine RBC 2-5 H /HPF Urine WBC 10-25 H /HPF Urine Squamous Epithelial Cells 2-5 /HPF Urine Crystals NONE /LPF Urine Bacteria LARGE H /HPF Urine Casts NONE /LPF Urine Mucus NEGATIVE /LPF Urine Culture Indicated YES Urine Test NEGATIVE NEGATIVE Glucometer 566 *H 471 *H 70-110 MG/DL White Blood Count 21.5 H 4.3-11.0 10^3/uL Red Blood Count 3.89 L 4.35-5.85 10^6/uL Hemoglobin 10.2 L 11.5-16.0 G/DL Hematocrit 33 L 35-52 % Mean Corpuscular Volume 84 80-99 FL Mean Corpuscular Hemoglobin 26 25-34 PG Mean Corpuscular Hemoglobin Concent 31 L 32-36 G/DL Red Cell Distribution Width 16.3 H 10.0-14.5 % Platelet Count 356 130-400 10^3/uL Mean Platelet Volume 10.7 H 7.4-10.4 FL Sodium Level 132 L 135-145 MMOL/L Potassium Level 4.6 3.6-5.0 MMOL/L Chloride Level 93 L 98-107 MMOL/L Carbon Dioxide Level 20 L 21-32 MMOL/L Anion Gap 19 H 5-14 MMOL/L Blood Urea Nitrogen 22 H 7-18 MG/DL Creatinine 0.95 0.60-1.30 MG/DL Estimat Glomerular Filtration Rate > 60 BUN/Creatinine Ratio 23 Glucose Level 583 *H 70-105 MG/DL Calcium Level 9.9 8.5-10.1 MG/DL Test 02/14/19 03:02 Range/Units Glucometer 436 *H 70-110 MG/DL My Orders Orders - PRACHI COBURN DO Ua Culture If Indicated (02/14/19 00:39) Hcg,Qualitative Urine (02/14/19 00:39) Ns Iv 1000 Ml (Sodium Chloride 0.9%) (02/14/19 00:54) Cbc No Diff (02/14/19 00:54) Basic Metabolic Panel (02/14/19 00:54) Fentanyl Injection (Sublimaze Injection (02/14/19 01:15) Insulin (Regular) Human (Humulin R (Per (02/14/19 02:08) Urine Culture (02/14/19 00:28) Ciprofloxacin Tablet (Cipro Tablet) (02/14/19 02:30) Medications Given in ED Current Medications Medications Dose Ordered Sig/Shanon Route Start Time Stop Time Status Last Admin Dose Admin Fentanyl Citrate 50 mcg ONCE ONCE IVP 02/14/19 01:15 02/14/19 01:16 DC 02/14/19 01:32 50 MCG Vital Signs/I&O 02/14/19 02/14/19 01:38 03:05 Temp 97.3 97.7 Pulse 112 112 Resp 18 20 B/P (MAP) 125/83 (97) 122/93 (103) Pulse Ox 100 100 O2 Delivery Room Air Room Air Capillary Refill : Less Than 3 Seconds Blood Pressure Mean: 97 Progress Note : Progress Note Patient has evidence of a UTI, she is also significantly hyperglycemic. This improved with fluid resuscitation and insulin. She does have allergies to penicillin and sulfa drugs, we treated with ciprofloxacin, she will be discharged on the same. Her condition is not consistent with pyelonephritis and we will treat with a 5 day course. She will follow up with her primary care physician as soon as possible and will return for any worsening of her condition. Was mildly tachycardic at time of discharge however note made of similar values at time of disposition at prior ED visits as well, and pt does not want to stay for further treatment, she appears nontoxic and to have decision making capacity. Departure Impression Primary Impression: Urinary tract infection Qualified Codes: N30.00 - Acute cystitis without hematuria Additional Impression: Hyperglycemia Disposition: HOME, SELF-CARE Condition: Stable Departure-Patient Inst. Referrals: [facility] (PCP) Primary Care Physician MAXIMILIAN PONCE DO (Family) Primary Care Physician Patient Instructions: Urinary Tract Infection, Adult (DC) Scripts Ciprofloxacin HCl (Ciprofloxacin HCl) 500 Mg Tablet 500 MG PO BID, #10 TAB Prov: PRACHI OCBURN DO 02/14/19 PRACHI COBURN DO February 14, 2019 02:37
[2019-02-14 03:05] VITALS: BP 122/93
== END 2019-02-14 03:05 | disposition home or self-care (01) ==
LOC: EDUNIT# 23:37 → ER FS 23:40
DX: N39.0 Urinary tract infection, site not specified (principal); E11.65 Type 2 diabetes mellitus with hyperglycemia; F41.9 Anxiety disorder, unspecified; F32.9 Major depressive disorder, single episode, unspecified; Z86.14 Personal history of Methicillin resistant Staphylococcus aureus infection; Z88.0 Allergy status to penicillin; Z88.2 Allergy status to sulfonamides; Z77.22 Contact with and (suspected) exposure to environmental tobacco smoke (acute) (chronic); Z90.89 Acquired absence of other organs
CPT/HCPCS: 36415; 80048; 81000; 82962; 84703; 85027; 87088; 87186; 96361; 96374; 96375

== ENCOUNTER 2019-02-15 11:29 | Emergency (ER) | payer MEDICAID ==
[~2019-02-15] VITALS: Ht 157.5 cm; Wt 56.7 kg
[~2019-02-15 11:29] MED LIST changes: +CIPR500T4 PO
[2019-02-15 11:48] LABS: HCG,QUALITATIVE URINE NEGATIVE (NEGATIVE)
[2019-02-15 11:52] LABS: COLOR,URINE YELLOW
[2019-02-15 11:53] LABS: BACTERIA,URINE FEW /HPF; BILIRUBIN,URINE NEGATIVE (NEGATIVE); CLARITY,URINE CLEAR; GLUCOSE, URINE (UA) 3+ (NEGATIVE); KETONES,URINE NEGATIVE (NEGATIVE); LEUKOCYTE ESTERASE ,URINE 1+ (NEGATIVE); NITRITE,URINE NEGATIVE (NEGATIVE); PROTEIN,URINE 1+ (NEGATIVE); UROBILINOGEN,URINE 0.2 MG/DL (NORMAL); WBC,URINE 25-50 /HPF
--- NOTE | 2019-02-15 12:00 | NUR ---
Spoke with Microbiology in [place] and pt's urine culture at outside lab from after midnight Thursday growing gram negative rods >100,000. Will be notified via reminders when culture sensitivity resulted.
[2019-02-15] MEDS ORDERED: fentaNYL INJECTION 100 MCG/2 ML AMP IVP ONE (12:15)
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
[2019-02-15 12:24] LABS: HEMATOCRIT 34 % (35-52); HEMOGLOBIN 10.5 G/DL (11.5-16.0); MEAN CORPUSCULAR HEMOGLOBIN 26 PG (25-34); MEAN CORPUSCULAR HGB CONC 31 G/DL (32-36); MEAN CORPUSCULAR VOLUME 84 FL (80-99); MEAN PLATELET VOLUME 10.1 FL (7.4-10.4); PLATELET COUNT 398 10^3/uL (130-400); RED CELL DISTRIBUTION WIDTH 16.1 % (10.0-14.5); WHITE BLOOD COUNT 17.1 10^3/uL (4.3-11.0)
[2019-02-15 12:25] LABS: BASOPHILS # (AUTO) 0.1 10^3/uL (0.0-0.1); BASOPHILS % (AUTO) 1 % (0-10); EOSINOPHILS # (AUTO) 0.4 10^3/uL (0.0-0.3); EOSINOPHILS % (AUTO) 2 % (0-10); LYMPHOCYTES # (AUTO) 5.9 X 10^3 (1.0-4.0); LYMPHOCYTES % (AUTO) 35 % (12-44); MONOCYTES # (AUTO) 0.6 X 10^3 (0.0-1.0); MONOCYTES % (AUTO) 4 % (0-12); NEUTROPHILS % (AUTO) 59 % (42-75)
--- NOTE | 2019-02-15 12:26 | ED Abdominal Pain ---
General Chief Complaint: Abdominal/GI Problems Stated Complaint: ABD/BACK PAIN Nursing Triage Note: Patient reports she began having lower abdominal and back pain 1 week ago, came in Thursday to the ED and was diagnosed with a UTI and started on abx. She reports her burning with urination has gotten better, but her abdominal and back pain has not improved. She also reports chills and nausea at home. Sepsis Screen: No Definite Risk Source of Information: Patient, Family Exam Limitations: No Limitations History of Present Illness Date Seen by Provider: February 15, 2019 Time Seen by Provider: 12:20 Initial Comments 23-year-old white female presents with persistent abdominal and back pain after starting Cipro for urinary tract infection 2 days ago. The patient's dysuria is improved but her low back pain is not. The patient has had persistent chills and nausea at home. The patient is diabetic. Patient denies possibility of . The patient states that she's been compliant on Cipro which she has been on for 48 hours. The patient has chronic low back pain over the mid lumbar region. Recent illness as exacerbated this discomfort. Allergies and Home Medications Allergies Coded Allergies: Penicillins (Verified Allergy, Unknown, 01/05/19) Sulfa (Sulfonamide Antibiotics) (Verified Allergy, Unknown, 01/05/19) Uncoded Allergies: PCN (Allergy, Unknown, 12/22/18) Home Medications Cephalexin 500 Mg Capsule, 500 MG PO TID Prescribed by: AJ BOYD on 01/05/19 1334 Ciprofloxacin HCl 500 Mg Tablet, 500 MG PO BID Prescribed by: PRACHI COBURN on 02/14/19 0236 Clindamycin HCl 300 Mg Capsule, 300 MG PO Q6H Prescribed by: PELON HARPER on 12/22/18 013 Doxycycline Hyclate 100 Mg Tablet, 100 MG PO BID Prescribed by: AJ BOYD on 01/05/19 1334 Naproxen 375 Mg Tablet.dr, 375 MG PO BID PRN for PAIN-MODERATE TO SEVERE Prescribed by: PELON HARPER on 12/22/18 013 Patient Home Medication List Home Medication List Reviewed: Yes Review of Systems Review of Systems Constitutional: see HPI, chills EENTM: Other Respiratory: Denies Cough, Denies SOA at Rest Cardiovascular: Denies Chest Pain Gastrointestinal: See HPI, Abdominal Pain (lower abdominal pain.); Denies Diarrhea; Nausea; Denies Vomiting Genitourinary: See HPI (dysuria which is improving.), Burning, Frequency Musculoskeletal: see HPI, back pain Skin: No change in color, No rash Psychiatric/Neurological: No Symptoms Reported Endocrine: No Symptoms Reported Hematologic/Lymphatic: No Symptoms Reported Past Zqcynuc-Ntcsqb-Dfsrlg Hx Past Med/Social Hx: Reviewed Nursing Past Med/Soc Hx Patient Social History Type Used: Cigarettes 2nd Hand Smoke Exposure: Yes Recent Foreign Travel: No Contact w/Someone Who Travel: No Recent Infectious Disease Expo: No Recent Hopitalizations: No Seasonal Allergies Seasonal Allergies: No Past Medical History Surgeries: Yes ("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 0oz. 56.181583fm; BMI Method:Stated General Appearance: WD/WN, no apparent distress HEENT: other (there are healing incisions on the scalp from the patient's incised scalp infection) Neck: non-tender, full range of motion, normal inspection Respiratory: lungs clear, normal breath sounds Cardiovascular: regular rate, rhythm, no murmur Gastrointestinal: normal bowel sounds; No rebound, No tenderness Genital/Rectal: other (the patient adamantly refused a pelvic exam despite a lo ng discussion with the patient on why this would be good care for her.) Extremities: normal inspection Back: normal inspection Neurologic/Psychiatric: no motor/sensory deficits, alert, normal mood/affect, oriented x 3, other (the patient demonstrates capacity) Skin: normal color, warm/dry Progress/Results/Core Measures Results/Orders Lab Results Laboratory Tests Test 02/15/19 11:35 02/15/19 11:47 02/15/19 12:10 Range/Units Urine Color YELLOW Urine Clarity CLEAR Urine pH 6.0 5-9 Urine Specific [place] 1.010 L 1.016-1.022 Urine Protein 1+ H NEGATIVE Urine Glucose (UA) 3+ H NEGATIVE Urine Ketones NEGATIVE NEGATIVE Urine Nitrite NEGATIVE NEGATIVE Urine Bilirubin NEGATIVE NEGATIVE Urine Urobilinogen 0.2 NORMAL MG/DL Urine Leukocyte Esterase 1+ H NEGATIVE Urine RBC (Auto) TRACE H NEGATIVE Urine RBC NONE /HPF Urine WBC 25-50 H /HPF Urine Squamous Epithelial Cells 2-5 /HPF Urine Crystals NONE /LPF Urine Bacteria FEW H /HPF Urine Casts NONE /LPF Urine Mucus NONE /LPF Urine Culture Indicated YES Urine Test NEGATIVE NEGATIVE Glucometer 359 H 70-110 MG/DL White Blood Count 17.1 H 4.3-11.0 10^3/uL Red Blood Count 3.99 L 4.35-5.85 10^6/uL Hemoglobin 10.5 L 11.5-16.0 G/DL Hematocrit 34 L 35-52 % Mean Corpuscular Volume 84 80-99 FL Mean Corpuscular Hemoglobin 26 25-34 PG Mean Corpuscular Hemoglobin Concent 31 L 32-36 G/DL Red Cell Distribution Width 16.1 H 10.0-14.5 % Platelet Count 398 130-400 10^3/uL Mean Platelet Volume 10.1 7.4-10.4 FL Neutrophils (%) (Auto) 59 42-75 % Lymphocytes (%) (Auto) 35 12-44 % Monocytes (%) (Auto) 4 0-12 % Eosinophils (%) (Auto) 2 0-10 % Basophils (%) (Auto) 1 0-10 % Neutrophils # (Auto) 10.0 H 1.8-7.8 X 10^3 Lymphocytes # (Auto) 5.9 H 1.0-4.0 X 10^3 Monocytes # (Auto) 0.6 0.0-1.0 X 10^3 Eosinophils # (Auto) 0.4 H 0.0-0.3 10^3/uL Basophils # (Auto) 0.1 0.0-0.1 10^3/uL Neutrophils % (Manual) 49 % Lymphocytes % (Manual) 44 % Monocytes % (Manual) 3 % Eosinophils % (Manual) 3 % Basophils % (Manual) 1 % Band Neutrophils 0 % Sodium Level 138 135-145 MMOL/L Potassium Level 4.0 3.6-5.0 MMOL/L Chloride Level 98 98-107 MMOL/L Carbon Dioxide Level 24 21-32 MMOL/L Anion Gap 16 H 5-14 MMOL/L Blood Urea Nitrogen 17 7-18 MG/DL Creatinine 0.90 0.60-1.30 MG/DL Estimat Glomerular Filtration Rate > 60 BUN/Creatinine Ratio 19 Glucose Level 190 H 70-105 MG/DL Calcium Level 9.8 8.5-10.1 MG/DL Corrected Calcium 9.5 8.5-10.1 MG/DL Total Bilirubin < 0.2 0.1-1.0 MG/DL Aspartate Amino Transf (AST/SGOT) 10 5-34 U/L Alanine Aminotransferase (ALT/SGPT) < 5 0-55 U/L Alkaline Phosphatase 147 H 40-136 U/L Total Protein 8.8 H 6.4-8.2 GM/DL Albumin 4.4 3.2-4.5 GM/DL Lipase 104 H 8-78 U/L My Orders Orders - RETA KYLE MD Ua Culture If Indicated (02/15/19 11:33) Hcg,Qualitative Urine (02/15/19 11:33) Urine Culture (02/15/19 11:35) Cbc With Automated Diff (02/15/19 11:59) Comprehensive Metabolic Panel (02/15/19 11:59) Lipase (02/15/19 11:59) Fentanyl Injection (Sublimaze Injection (02/15/19 12:15) Manual Differential (02/15/19 12:10) Ct Abdomen/Pelvis Wo (02/15/19 12:29) Ceftriaxone For Iv Use (Rocephin For I (02/15/19 12:45) Medications Given in ED Current Medications Medications Dose Ordered Sig/Shanon Route Start Time Stop Time Status Last Admin Dose Admin Ceftriaxone Sodium 2000 mg/ Sterile Water 20 ml @ 240 mls/hr ONCE ONCE IV 02/15/19 12:45 02/15/19 12:49 DC 02/15/19 13:11 240 MLS/HR Fentanyl Citrate 50 mcg ONCE ONCE IVP 02/15/19 12:15 02/15/19 12:17 DC 02/15/19 12:32 50 MCG Vital Signs/I&O 02/15/19 11:40 Temp 97.2 Pulse 117 Resp 16 B/P (MAP) 124/85 (98) Pulse Ox 99 O2 Delivery Room Air Blood Pressure Mean: 98 Progress Progress Note : Time: 12:27 Progress Note The patient's urinalysis demonstrated 100,000 gram-negative organisms on the specimen taken 2 days ago. Sensitivities are not yet available. The patient's laboratory and radiographic evaluation demonstrated an elevated white count of 17,000. There was still 1+ bacteriuria on the patient's urinalysis today culture was reinitiated. Patient's initial glucose was 350 at the bedside and subsequently was 200 in the lab. Patient's CT of the abdomen and pelvis failed to demonstrate evidence of acute pathology. Patient was treated with 2 g Rocephin IV. Her pain was significantly improved with 50 g of fentanyl IV. It is difficult to know if the patient has a resolving or resistant urinary tract infection. I'm hopeful the 2 g of Rocephin well help resolve this issue. I strongly encourage the patient follow-up with her primary care physician tomorrow for recheck. I asked that she continue the Cipro at home. She was invited to return in the emergency department should any further problems or questions. Initial ECG Impression Date: February 15, 2019 Departure Impression Primary Impression: UTI (urinary tract infection) Qualified Codes: N30.00 - Acute cystitis without hematuria Disposition: HOME, SELF-CARE Condition: Improved Departure-Patient Inst. Decision time for Depature: 13:33 Referrals: [facility]/ (PCP) Primary Care Physician ZHANNA NUNEZ APRN (Family) Primary Care Physician Patient Instructions: Urinary Tract Infection, Adult (DC) Add. Discharge Instructions: Continue with her Cipro as prescribed. Close follow-up with your progressive care unit registered nurse at [facility] tomorrow. Return if any problems or questions. All discharge instructions reviewed with patient and/or family. Voiced understanding. RETA KYLE MD February 15, 2019 12:26
[2019-02-15 12:38] LABS: BAND NEUTROPHILS 0 %; BASOPHILS % (MANUAL) 1 %; EOSINOPHILS % (MANUAL) 3 %; LYMPHOCYTES % (MANUAL) 44 %; MONOCYTES % (MANUAL) 3 %; NEUTROPHILS % (MANUAL) 49 %
[2019-02-15] MEDS ORDERED: cefTRIAXone FOR IV USE 2,000 MG in WATER (STERILE) FOR INJECTION 20 ML IV ONE (12:45)
[2019-02-15 12:46] LABS: ALKALINE PHOSPHATASE 147 U/L (40-136); BILIRUBIN,TOTAL < 0.2 MG/DL (0.1-1.0); BUN/CREATININE RATIO 19; CALCIUM 9.8 MG/DL (8.5-10.1); CARBON DIOXIDE 24 MMOL/L (21-32); CHLORIDE 98 MMOL/L (98-107); GFR ESTIMATED > 60; GLUCOSE 190 MG/DL (70-105); SODIUM 138 MMOL/L (135-145)
[2019-02-15 12:47] LABS: ALANINE AMINOTRANSFERASE < 5 U/L (0-55); ALBUMIN 4.4 GM/DL (3.2-4.5); LIPASE 104 U/L (8-78); TOTAL PROTEIN 8.8 GM/DL (6.4-8.2)
--- NOTE | 2019-02-15 13:12 | Diagnostic Imaging Report ---
PROCEDURE: CT abdomen and pelvis without contrast. TECHNIQUE: Multiple contiguous axial images were obtained through the abdomen and pelvis without the use of intravenous contrast. Auto Exposure Controls were utilized during the CT exam to meet ALARA standards for radiation dose reduction. INDICATION: Pain. FINDINGS: There are no opaque kidney stones. There is no hydronephrosis. The gallbladder is contracted but no visualized stone. The liver, spleen, adrenals, and pancreas are unremarkable. The gallbladder is unremarkable with no bile duct dilatation. There is no bowel obstruction. There is no appendicitis or diverticulitis. No adnexal lesion. Urinary bladder is unremarkable. Some mild subcutaneous edema about the lower pelvis is present with few fat-containing bilateral inguinal lymph nodes, likely reactive. No abscess or fluid collection. IMPRESSION: No bowel, biliary, or urinary tract obstruction. No fluid collection. There is some mild subcutaneous edema and skin thickening in the pubic region of the pelvis with few fat-containing, presumed reactive, inguinal lymph nodes. No evidence for abscess. Dictated by: Dictated on workstation # [id number]
[2019-02-15 13:58] VITALS: BP 108/72
--- OUTSIDE RECORDS SUMMARY | 2019-02-15 14:43 | XMS REPORT | Continuity of Care Document ---
Demographics x Preferred Language Unknown Marital Status Unknown Yarsani Affiliation Unknown Race Unknown Ethnic Group Unknown [...] Procedures Code [place] [address] EMERGENCY DEPT VISIT 10/07/2014 85703 EMERGENCY DEPT VISIT 10/24/2014 77130 URINALYSIS, AUTO W/SCOPE 12/18/2014 84818 URINE TEST 12/18/2014 21025 URINE CULTURE/COLONY COUNT 12/18/2014 56105 EMERGENCY DEPT VISIT 12/18/2014 73879 URINALYSIS, AUTO W/SCOPE 07/28/2015 65479 EMERGENCY DEPT VISIT 07/28/2015 67567 EMERGENCY DEPT VISIT 12/03/2015 07205 EMERGENCY DEPT VISIT 12/03/2015 50099 ROUTINE VENIPUNCTURE 01/18/2016 48173 X-RAY EXAM OF ABDOMEN 01/18/2016 66271 COMPREHEN METABOLIC PANEL 01/18/2016 45697 URINALYSIS, AUTO W/SCOPE 01/18/2016 61114 CHORIONIC GONADOTROPIN ASSAY 01/18/2016 01452 COMPLETE CBC W/AUTO DIFF WBC 01/18/2016 60795 EMERGENCY DEPT VISIT 01/18/2016 06386 ROUTINE VENIPUNCTURE 02/18/2016 63397 COMPREHEN METABOLIC PANEL 02/18/2016 95802 DRUG SCREEN NON TLC DEVICES 02/18/2016 49297 URINALYSIS, AUTO W/SCOPE 02/18/2016 63317 TEST FOR ACETONE/KETONES 02/18/2016 44949 BLOOD GASES: PH, PO2 & PCO2 02/18/2016 77156 GLYCOSYLATED HEMOGLOBIN TEST 02/18/2016 35508 ASSAY OF LIPASE 02/18/2016 66878 CHORIONIC GONADOTROPIN ASSAY 02/18/2016 19670 COMPLETE CBC W/AUTO DIFF WBC 02/18/2016 92309 THER/PROPH/DIAG INJ, IV PUSH 02/18/2016 91863 TX/PRO/DX INJ NEW DRUG ADDON 02/18/2016 69074 EMERGENCY DEPT VISIT 02/18/2016 J1815 INSULIN INJECTION 02/18/[address] ABDOMEN&PELVIS W/CONTRAST 03/10/2016 Q9967 LOCM 300-399MG/ML IODINE,1ML 03/10/2016 43914 ROUTINE VENIPUNCTURE 03/14/2016 85192 METABOLIC PANEL TOTAL CA 03/14/2016 66365 URINALYSIS, AUTO W/SCOPE 03/14/2016 93451 COMPLETE CBC W/AUTO DIFF WBC 03/14/2016 85830 HYDRATE IV INFUSION, ADD-ON 03/14/2016 60895 THER/PROPH/DIAG INJ, IV PUSH 03/14/2016 84161 EMERGENCY DEPT VISIT 03/14/2016 96459 EMERGENCY DEPT VISIT 03/14/2016 J2765 METOCLOPRAMIDE HCL INJECTION 03/14/2016 J7030 NORMAL SALINE SOLUTION INFUS 03/14/2016 44594 EMERGENCY DEPT VISIT 03/25/2016 97604 EMERGENCY DEPT VISIT 03/25/2016 44788 EMERGENCY DEPT VISIT 03/31/2016 00543 EMERGENCY DEPT VISIT 03/31/2016 52935 CULTURE, BACTERIA, OTHER 04/01/2016 65080 SMEAR, GRAM STAIN 04/01/2016 Results Test Result [...] Status Pt. Type Provider Facility Loc./Unit Complaint [id number] 04/03/2016 20:30:00 04/06/2016 14:05:00 DIS Inpatient ALMAS HAWLEY [facility] 2F [id number] 04/03/2016 17:37:00 04/03/2016 20:30:00 DIS Emergency RETA GUILLERMO [facility] EMR [id number] 04/01/2016 00:00:00 04/01/2016 00:00:00 DIS Outpatient KARLOS DE JESUS [facility] WILFREDO [id number] 03/31/2016 22:34:00 03/31/2016 23:20:00 DIS Emergency VALERIE HERNANDEZ Chary [facility] EMR [id number] 03/27/2016 00:00:00 03/27/2016 23:59:59 CLS Outpatient DIALLO ARAUZ Tutu [facility] OPS [id number] 03/25/2016 16:27:00 03/25/2016 17:52:00 DIS Emergency MALI HERNANDES [facility] EMR [id number] 03/14/2016 20:20:00 03/14/2016 22:53:00 DIS Emergency AJ THOMPSON [facility] EMR [id number] 03/10/2016 10:52:00 03/10/2016 10:52:00 DIS Outpatient ALMAS HAWLEY W [facility] RAD [id number] 02/17/2016 23:41:00 02/18/2016 03:40:00 DIS Emergency RETA GUILLERMO [facility] EMR [id number] 01/18/2016 00:03:00 01/18/2016 02:05:00 DIS Emergency KRISTINE GARRETT [facility] EMR [id number] 12/03/2015 19:19:00 12/03/2015 22:15:00 DIS Emergency AJ SALGADO [facility] EMR [id number] 08/10/2015 01:31:00 08/11/2015 02:05:00 DIS Emergency KRISTINE GARRETT [facility] EMR [id number] 07/28/2015 21:20:00 07/28/2015 23:45:00 DIS Emergency RETA GUILLERMO [facility] EMR [id number] 07/13/2015 00:46:00 07/13/2015 23:59:59 CLS Emergency RETA GUILLERMO [facility] EMR [id number] 03/25/2015 15:06:00 03/25/2015 17:20:00 DIS Emergency GERRY KRISTINE W [facility] EMR [id number] 03/23/2015 17:00:00 03/23/2015 17:40:00 DIS Emergency MALI HERNANDES W [facility] EMR [id number] 01/05/2015 23:51:00 01/06/2015 01:42:00 DIS Emergency MARY LOUEmreMALI W [facility] EMR [id number] 12/18/2014 21:52:00 12/18/2014 23:50:00 DIS Emergency DAMONNICOLEVALERIE Chary [facility] EMR [id number] 11/03/2014 01:57:00 11/03/2014 02:25:00 DIS Emergency ALMAS HAWLEY Rachel [facility] EMR [id number] 10/17/2014 22:28:00 10/17/2014 22:55:00 DIS Emergency RETA GUILLERMO [facility] EMR [id number] 10/07/2014 21:03:00 10/07/2014 22:25:00 DIS Emergency RETA GUILLERMO [facility] EMR [id number] 09/16/2014 12:12:00 09/16/2014 13:08:00 DIS Emergency KRISTINE GARRETT [facility] EMR [id number] 09/15/2014 20:26:00 09/15/2014 21:19:00 DIS Emergency RETA GUILLERMO [facility] EMR [id number] 07/10/2014 09:13:00 07/10/2014 09:13:00 DIS Outpatient CARLOTA CORTÉS [facility] RAD [id number] 03/31/2014 22:54:00 04/01/2014 00:28:00 DIS Emergency AJ SALGADO [facility] EMR [id number] 08/27/2015 00:00:00 Document Registration [id number] 08/27/2015 00:00:00 Document Registration [id number] 08/27/2015 00:00:00 Document Registration [id number] 08/27/2015 00:00:00 Document Registration [id number] 10/24/2014 22:40:00 Document Registration [id number] 08/27/2014 00:00:00 Document Registration [id number] 08/27/2014 00:00:00 Document Registration [id number] 08/27/2014 00:00:00 Document Registration [id number] 08/27/2013 00:00:00 Document Registration [id number] 08/27/2013 00:00:00 Document Registration [id number] 12/10/2018 20:01:30 ACT Unknown Diallo Arauz MD [id number] 02/03/2019 09:20:00 02/03/2019 23:59:59 [facility]
== END 2019-02-15 13:58 | disposition home or self-care (01) ==
LOC: EDUNIT# 11:29 → ER FS 11:31
DX: N39.0 Urinary tract infection, site not specified (principal); E11.9 Type 2 diabetes mellitus without complications; F41.9 Anxiety disorder, unspecified; F32.9 Major depressive disorder, single episode, unspecified; Z88.0 Allergy status to penicillin; Z88.2 Allergy status to sulfonamides; Z77.22 Contact with and (suspected) exposure to environmental tobacco smoke (acute) (chronic); Z90.89 Acquired absence of other organs; Z86.14 Personal history of Methicillin resistant Staphylococcus aureus infection
CPT/HCPCS: 36415; 74176; 80053; 81000; 82962; 83690; 84703; 85007; 85027; 87088

== ENCOUNTER 2019-11-17 18:16 | Emergency (ER) | payer MEDICAID ==
[~2019-11-17] VITALS: Ht 157 cm; Wt 58.0 kg
[2019-11-17] MEDS ORDERED: SUCCINYLCHOLINE INJ 100 MG/5 ML SYR INJ ONE (18:19)
[2019-11-17] MEDS ORDERED: MIDAZOLAM 5 MG/5 ML (VERSED) VIAL IJ ONE (18:19)
[2019-11-17] MEDS ORDERED: fentaNYL INJECTION 100 MCG/2 ML AMP INJ ONE (18:19)
[2019-11-17] MEDS ORDERED: KETAMINE HCL 100 MG/ML 5 ML VIAL IJ ONE (18:19)
[2019-11-17] MEDS ORDERED: NS IV 1000 ML 1,000 ML IV SCH ×2 (18:25→18:43)
[2019-11-17] MEDS ORDERED: TETANUS,DIPTH,PERTUSS P/F (BOOSTRIX) 0.5 ML VIAL IM ONE (18:30)
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
[2019-11-17] MEDS ORDERED: fentaNYL INJECTION 100 MCG/2 ML AMP ONE (18:41)
[2019-11-17] MEDS ORDERED: NS 100 ML (IVPB) BAG IV ONE (18:45)
[2019-11-17] MEDS ORDERED: IOHEXOL 350 MG/ML 100 ML (OMNIPAQUE 350) VIAL IV ONE (18:45)
[2019-11-17] MEDS ORDERED: CATHETER FLUSH 10 ML SYR IV PRN (18:45)
[2019-11-17] MEDS ORDERED: fentaNYL INJECTION 100 MCG/2 ML AMP IVP ONE (18:45)
[2019-11-17] MEDS ORDERED: HOLD METFORMIN - RECEIVED CONTRAST 20 ML VIAL IV SCH (18:45)
[2019-11-17 18:54] LABS: MEAN PLATELET VOLUME 10.1 FL (7.4-10.4); RED CELL DISTRIBUTION WIDTH 13.5 % (10.0-14.5); WHITE BLOOD COUNT 20.4 10^3/uL (4.3-11.0)
[2019-11-17 19:26] LABS: BUN/CREATININE RATIO 20; CARBON DIOXIDE 18 MMOL/L (21-32); CHLORIDE 109 MMOL/L (98-107); CREATININE SERUM 1.16 MG/DL (0.60-1.30); GFR ESTIMATED 57; POTASSIUM 5.3 MMOL/L (3.6-5.0); SODIUM 137 MMOL/L (135-145)
[2019-11-17 19:27] LABS: ALANINE AMINOTRANSFERASE 46 U/L (0-55); ALBUMIN 3.6 GM/DL (3.2-4.5); ALKALINE PHOSPHATASE 157 U/L (40-136); BILIRUBIN,DIRECT 0.1 MG/DL (0.0-0.3); BILIRUBIN,INDIRECT 0.1 MG/DL; BILIRUBIN,TOTAL 0.2 MG/DL (0.1-1.0); CALCIUM 9.2 MG/DL (8.5-10.1); CHOLESTEROL 216 MG/DL (< 200); GLUCOSE 197 MG/DL (70-105); HDL CHOLESTEROL 40 MG/DL (40-60); PHOSPHORUS 3.5 MG/DL (2.3-4.7); TRIGLYCERIDES 239 MG/DL (<150); VLDL CHOLESTEROL 48 MG/DL (5-40)
[2019-11-17 19:33] LABS: FIBRIN DEGRADATION PRODUCTS 18.9 UG/ML (0.00-0.49); PROTHROMBIN TIME PATIENT 13.6 SEC (12.2-14.7)
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
--- NOTE | 2019-11-17 20:10 | NUR ---
pt back to ED room from CT, pt noted to have decreased O2 sat at 77% on RA, NC applied at 4 L/min, pt had improvement in O2 sat, physician notified of this change in pt condition, dea called to do intubation on pt
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
[2019-11-17] MEDS ORDERED: proPOfol 200 MG/20 ML (DIPRIVAN) VIAL IV ONE (20:28)
--- NOTE | 2019-11-17 20:37 | NUR ---
2 mg versed, 10 m propofol, 100 succ administered via IV by Roz Rey MANAGER SOCIAL
[2019-11-17 20:38] VITALS: BP 103/71
--- NOTE | 2019-11-17 20:39 | NUR ---
pt intubated with 7.5 ET tube, 22 at the gums, secured in place with ET tube kat, positive color change noted, pt being ventilated by respiratory at this time
--- NOTE | 2019-11-17 20:54 | Anesthesia-Procedure Note ---
Procedures/Interventions Procedure Start/Stop/Diagnosis Date of Procedure: Nov 17, 2019 Start Time: 20:25 Referring Physician: Sampson/Dede Brief History Called by Dede, requested by Sampson to intubate patient for transfer to . Pt has had a few episodes of desaturation down to the mid 70's, and cannot protect airway for transfer. Explained procedure to patient, questions addressed, report received from TRUST MANAGER ASSISTANT. Preoxygenated with 100% FiO2 via ambu, RSI x 1attempt. ETT placed with ease by SRNA. Jes Atraumatic. Oropharynx clear at time of intubation. Stop Time: 20:39 Intubation RSI: Yes 100% pre-Ox, [id number]: Yes Intubation Method: orotracheal (7.5) Videoscope used: Yes (street x) Grade View: 1 Medications: Propofol (100mg), Succinylcholine (100), Versed (2) Mask Ventilation: positive Positive End Tide CO2: Yes Breath Sounds after Intubation: bilateral-equal ETT Securred @ (cm): 22 Intubated with ease: Yes Intubation Complications: no complications Post Intubation Xray-done: Yes (renal dialysis technician on site at our departure) BO SHINE CRNA Nov 17, 2019 20:54
--- NOTE | 2019-11-17 20:58 | Diagnostic Imaging Report ---
INDICATION: Intubation Frontal chest obtained at 0845 p.m. and compared to same day at 0648 p.m. ET tube is seen with tip overlying mid trachea. Heart is normal in size. There is some left basilar atelectatic change. Multiple left-sided rib fractures are again noted as seen on the prior study. There is no pneumothorax or gross pleural fluid. IMPRESSION: ET tube tip overlies mid trachea. No pneumothorax or pleural fluid. There is some left basilar atelectasis. Multiple left-sided rib fractures are unchanged. Dictated by: Dictated on workstation # [id number]
--- NOTE | 2019-11-17 21:05 | NUR ---
150 of Ketamine administered by Liliana Pond RN per Roz Rey TRAINING DEVELOPMENT SPECIALIST
[2019-11-17 21:16] VITALS: BP 143/86
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
== END 2019-11-17 21:16 ==
LOC: EDUNIT# 18:16 → ER 18:18
DX: S06.9X9A Unspecified intracranial injury with loss of consciousness of unspecified duration, initial encounter (principal); S22.42XA Multiple fractures of ribs, left side, initial encounter for closed fracture; S27.321A Contusion of lung, unilateral, initial encounter; S42.102A Fracture of unspecified part of scapula, left shoulder, initial encounter for closed fracture; S32.10XA Unspecified fracture of sacrum, initial encounter for closed fracture; S32.059A Unspecified fracture of fifth lumbar vertebra, initial encounter for closed fracture; S32.401A Unspecified fracture of right acetabulum, initial encounter for closed fracture; S32.501A Unspecified fracture of right pubis, initial encounter for closed fracture; S52.502A Unspecified fracture of the lower end of left radius, initial encounter for closed fracture; S01.01XA Laceration without foreign body of scalp, initial encounter; J96.00 Acute respiratory failure, unspecified whether with hypoxia or hypercapnia; E11.9 Type 2 diabetes mellitus without complications; F17.210 Nicotine dependence, cigarettes, uncomplicated; Z23 Encounter for immunization; Z88.0 Allergy status to penicillin; Z88.2 Allergy status to sulfonamides; V48.6XXA Car passenger injured in noncollision transport accident in traffic accident, initial encounter
CPT/HCPCS: 31500; 36415; 51702; 70450; 70486; 71045; 71260; 72125; 72128; 72131; 72170; 73090; 73110; 74177; 80053; 80061; 80076; 80320; 82248; 82962; 83605; 83874; 84100; 84703; 85027; 85379; 85384; 85610; 85730; 86701; 86703; 86850; 86900; 86901; 86920; 90715; 93005; 93041; 94002; 99291; 99292

== ENCOUNTER 2020-02-15 20:29 | Emergency (ER) | payer MEDICAID ==
[~2020-02-15] VITALS: Ht 157.4 cm; Wt 59.0 kg
--- NOTE | 2020-02-15 20:42 | ED General ---
General Chief Complaint: General Problems/Pain Stated Complaint: FEEDING TUBE ISSUES,LOWER ABD Source of Information: Patient, Old Records, RN/MD History of Present Illness Date Seen by Provider: February 15, 2020 Time Seen by Provider: 20:30 Initial Comments This patient is a 24-year-old female presents to the emergency department with complaints of requesting have her PEG tube flushed. Patient states she does not use the PEG tube is actually scheduled to be removed tomorrow which she follows up with her surgeon. Patient has been eating and drinking by mouth for some time and has not used the PEG tube and some time. Patient is requesting saline to flush it. Patient has no other complaints. Timing/Duration: Other Allergies and Home Medications Allergies Coded Allergies: Penicillins (Verified Allergy, Unknown, 01/05/19) Sulfa (Sulfonamide Antibiotics) (Verified Allergy, Unknown, 01/05/19) Uncoded Allergies: PCN (Allergy, Unknown, 12/22/18) Home Medications Cephalexin 500 Mg Capsule, 500 MG PO TID Prescribed by: AJ BOYD on 01/05/19 1334 Ciprofloxacin HCl 500 Mg Tablet, 500 MG PO BID Prescribed by: PRACHI COBURN on 02/14/19 0236 Clindamycin HCl 300 Mg Capsule, 300 MG PO Q6H Prescribed by: PELON HARPER on 12/22/18 013 Doxycycline Hyclate 100 Mg Tablet, 100 MG PO BID Prescribed by: AJ BOYD on 01/05/19 1334 Naproxen 375 Mg Tablet.dr, 375 MG PO BID PRN for PAIN-MODERATE TO SEVERE Prescribed by: PELON HARPER on 12/22/18 013 Patient Home Medication List Home Medication List Reviewed: Yes Review of Systems Review of Systems Constitutional: No no symptoms reported; see HPI; No chills, No diaphoresis, No dizziness, No fever, No malaise, No weakness, No weight gain, No weight loss, No other EENTM: No see HPI, No no symptoms reported, No ear discharge, No hearing loss, No ear pain, No blurred vision, No double vision, No eye pain, No tearing, No vision loss, No dental problems, No hoarseness, No mouth pain, No mouth swelling, No epistaxis, No nose congestion, No nose pain, No throat pain, No throat swelling, No other Respiratory: No no symptoms reported, No see HPI, No cough, No dyspnea on exertion, No hemoptysis, No orthopnea, No phlegm, No short of breath, No stridor, No wheezing, No other Cardiovascular: No no symptoms reported, No see HPI, No chest pain, No edema, No Hx of Intervention, No palpitations, No syncope, No vascular heart diseas, No other Gastrointestinal: No RUQ, No LUQ, No RLQ, No LLQ, No no symptoms reported, No see HPI, No abdominal pain, No constipation, No diarrhea, No dysphagia, No hematemesis, No heartburn, No jaundice, No loss of appetite, No melena, No nausea, No vomiting, No other Genitourinary: No no symptoms reported, No see HPI, No decreased output, No discharge, No dysuria, No frequency, No hematuria, No hesitancy, No incontinence, No nocturia, No pain, No other Musculoskeletal: No no symptoms reported, No see HPI, No back pain, No gout, No joint pain, No joint swelling, No muscle pain, No muscle stiffness, No muscle cramps, No muscle twitching, No muscle weakness, No neck pain, No other Skin: No no symptoms reported, No see HPI, No change in color, No change in hair/nails, No dryness, No hx of skin cancer, No lesions, No lumps, No pruritus, No rash, No other Psychiatric/Neurological: Denies No Symptoms Reported, Denies See HPI, Denies Anxiety, Denies Depressed, Denies Emotional Problems, Denies Headache, Denies Numbness, Denies Paresthesia, Denies Pre-Existing Deficit, Denies Seizure, Denies Tingling, Denies Tremors, Denies Weakness, Denies Other All Other Systems Reviewed Negative Unless Noted: Yes Past Dexfajg-Fuovbd-Falbgd Hx Patient Social History Type Used: Cigarettes 2nd Hand Smoke Exposure: Yes Recent Foreign Travel: No Contact w/Someone Who Travel: No Recent Hopitalizations: No Immunizations Up To Date Tetanus Booster (TDap): Unknown Seasonal Allergies Seasonal Allergies: No Past Medical History Surgeries: Yes (BUTTOCKS "ABCESS FROM MRSA" I&D; ABSCESS ON SCALP I&D; TEETH REMOVED) Tonsillectomy Respiratory: No Cardiac: No Neurological: No Female Reproductive Disorders: Denies Sexually Transmitted Disease: No HIV/AIDS: No Genitourinary: No Gastrointestinal: No Musculoskeletal: Yes Chronic Back Pain Endocrine: Yes Diabetes, Insulin dep HEENT: Yes (WEARS GLASSES; ALL TEETH REMOVED) Loss of Vision: Bilateral Cancer: No Psychosocial: Yes Anxiety, Depression Integumentary: Yes (MRSA ABSCESSES) Blood Disorders: No Family Medical History No Pertinent Family Hx Physical Exam Vital Signs Capillary Refill : Height, Weight, BMI Height: 5'2.00" Weight: 125lbs. 0oz. 56.711756yb; 23.00 BMI Method:Stated General Appearance: No Apparent Distress, WD/WN HEENT: PERRL/EOMI, TMs Normal, Normal ENT Inspection, Pharynx Normal Neck: Full Range of Motion, Normal Inspection, Non Tender, Supple Respiratory: Chest Non Tender, Lungs Clear, Normal Breath Sounds, No Accessory Muscle Use, No Respiratory Distress Cardiovascular: Regular Rate, Rhythm, No Edema, No Gallop, No JVD, No Murmur, Normal Peripheral Pulses Gastrointestinal: Normal Bowel Sounds, No Organomegaly, No Pulsatile Mass, Non Tender, Soft, Other (PEG tube is in place. Nursing staff flushing with saline at this time no acute findings.) Back: Normal Inspection, No CVA Tenderness, No Vertebral Tenderness Neurologic/Psychiatric: Alert, Oriented x3, No Motor/Sensory Deficits, Normal Mood/Affect Skin: Normal Color, Warm/Dry Procedures/Interventions Date of ETT Placement: Nov 17, 2019 Time of ETT Placement: 2037 Progress/Results/Core Measures Suspected Sepsis SIRS Temperature: Pulse: Respiratory Rate: Blood Pressure / Mean: Results/Orders Vital Signs/I&O Capillary Refill : Departure Impression Primary Impression: Malfunction of percutaneous endoscopic gastrostomy (PEG) tube Disposition: 01 HOME, SELF-CARE Condition: Stable Departure-Patient Inst. Decision time for Depature: 20:39 Referrals: [facility] (PCP) Primary Care Physician ZHANNA NUNEZ APRN (Family) Primary Care Physician Patient Instructions: Percutaneous Endoscopic Gastrostomy (DC) Add. Discharge Instructions: Follow-up with your PCP in the next 1-2 days as instructed for possible removal. 2. Continue all home medications. All discharge instructions reviewed with patient and/or family. Voiced understanding. MALI LAKE MD February 15, 2020 20:42
[2020-02-15 20:53] VITALS: BP 127/94
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
== END 2020-02-15 20:54 | disposition home or self-care (01) ==
LOC: EDUNIT# 20:29 → ER FS 20:32
DX: K94.23 Gastrostomy malfunction (principal); Z88.0 Allergy status to penicillin; Z88.2 Allergy status to sulfonamides; Z77.22 Contact with and (suspected) exposure to environmental tobacco smoke (acute) (chronic)
CPT/HCPCS: 99281

== ENCOUNTER → 2020-02-22 | Outpatient (CLI) | payer MEDICAID ==
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
== END ==
LOC: RAD FS 12:56
PROVIDERS: ATTEND Nurse Practitioner Family
DX: S27.321D Contusion of lung, unilateral, subsequent encounter (principal); V89.2XXD Person injured in unspecified motor-vehicle accident, traffic, subsequent encounter
CPT/HCPCS: 71046

== ENCOUNTER 2020-03-17 22:28 | Emergency (ER) | payer MEDICAID ==
[~2020-03-17] VITALS: Ht 157 cm; Wt 52.7 kg
[2020-03-17] MEDS ORDERED: FAMOTIDINE 20 MG (PEPCID) TABLET PO STA (22:48)
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
[2020-03-17] MEDS ORDERED: ANTACID SUSP 30 ML UDC (MYLANTA) PO ONE (23:00)
[2020-03-17] MEDS ORDERED: LIDOCAINE 2% VISCOUS 15 ML UDC PO ONE (23:00)
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
[2020-03-17 23:13] LABS: BILIRUBIN,URINE 2+ (NEGATIVE); CLARITY,URINE CLOUDY; COLOR,URINE YELLOW; GLUCOSE, URINE (UA) NEGATIVE (NEGATIVE); KETONES,URINE 1+ (NEGATIVE); LEUKOCYTE ESTERASE ,URINE NEGATIVE (NEGATIVE); NITRITE,URINE NEGATIVE (NEGATIVE); PROTEIN,URINE 2+ (NEGATIVE)
[2020-03-17 23:14] LABS: BACTERIA,URINE MODERATE /HPF; SQUAMOUS EPITHELIAL CELL,UR 25-50 /HPF
[2020-03-17] MEDS ORDERED: FAMO-119 PO (23:28)
[2020-03-17] MEDS ORDERED: SUCR1TAB36 PO (23:28)
[2020-03-17 23:34] VITALS: BP 106/66
== END 2020-03-17 23:33 | disposition home or self-care (01) ==
LOC: EDUNIT# 22:28 → ER FS 22:32
DX: K21.9 Gastro-esophageal reflux disease without esophagitis (principal); Z88.0 Allergy status to penicillin; Z88.2 Allergy status to sulfonamides; Z77.22 Contact with and (suspected) exposure to environmental tobacco smoke (acute) (chronic)
CPT/HCPCS: 81000; 84703; 87088; 99283

== ENCOUNTER 2020-07-19 21:09 | Emergency (ER) | payer MEDICAID ==
[~2020-07-19 21:09] MED LIST changes: +DICL25TA PO; +FAMO-119 PO; +NITR-65 PO; +SUCR1TAB36 PO
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
[2020-07-19 21:27] VITALS: BP 137/93
== END 2020-07-19 21:28 | disposition home or self-care (01) ==
LOC: EDUNIT# 21:09 → ER FS 21:11
DX: J95.03 Malfunction of tracheostomy stoma (principal); J30.2 Other seasonal allergic rhinitis; F17.210 Nicotine dependence, cigarettes, uncomplicated; Z88.0 Allergy status to penicillin; Z88.2 Allergy status to sulfonamides
CPT/HCPCS: 99282

== ENCOUNTER → 2020-08-30 | Outpatient (CLI) | payer MEDICAID ==
[~2020-08-30] MED LIST changes: -CLIN300C11 PO; +CLIN300C12 PO
[2020-08-30 21:43] LABS: ALBUMIN 4.1 GM/DL (3.2-4.5); BILIRUBIN,TOTAL 0.2 MG/DL (0.1-1.0); CALCIUM 10.1 MG/DL (8.5-10.1); CREATININE SERUM 1.26 MG/DL (0.60-1.30); POTASSIUM 5.5 MMOL/L (3.6-5.0); TOTAL PROTEIN 7.9 GM/DL (6.4-8.2)
== END ==
LOC: LAB FS 16:35
PROVIDERS: ATTEND Nurse Practitioner Family
DX: E87.5 Hyperkalemia (principal)
CPT/HCPCS: 36415; 80053

== ENCOUNTER 2020-10-30 20:50 | Emergency (ER) | payer MEDICAID ==
[~2020-10-30] VITALS: Ht 157.4 cm; Wt 69.7 kg
[2020-10-30 20:53] VITALS: BP 157/98
--- NOTE | 2020-10-30 21:00 | ED Integumentary General ---
General Chief Complaint: Skin/Wound Problems Stated Complaint: LT TOE LAC History of Present Illness Date Seen by Provider: Oct 30, 2020 Time Seen by Provider: 20:59 Initial Comments 25 y/o presents w sore on her left great toe. present for a few days. States after a shower some skin came off her toe, since then she has been applying abx ointment and keeping a band aid on her toe. Now her toe has changed color (white) and has some swelling. Allergies and Home Medications Allergies Coded Allergies: Penicillins (Verified Allergy, Unknown, 01/05/19) Sulfa (Sulfonamide Antibiotics) (Verified Allergy, Unknown, 01/05/19) Uncoded Allergies: PCN (Allergy, Unknown, 12/22/18) Home Medications Cephalexin 500 Mg Capsule, 500 MG PO TID Prescribed by: AJ BOYD on 01/05/19 1334 Ciprofloxacin HCl 500 Mg Tablet, 500 MG PO BID Prescribed by: PRACHI COBURN on 02/14/19 0236 Clindamycin HCl 300 Mg Capsule, 300 MG PO Q6H Prescribed by: PELON HARPER on 12/22/18 0135 Diclofenac Sodium 25 Mg Tablet.dr, 25 MG PO TID PRN for PAIN-MODERATE (5-7) Prescribed by: REI MOORE on 05/31/202020 Doxycycline Hyclate 100 Mg Tablet, 100 MG PO BID Prescribed by: AJ BOYD on 01/05/19 1334 Famotidine 20 Mg Tablet, 20 MG PO BID Prescribed by: AVERY LIRIANO on 03/17/202327 Naproxen 375 Mg Tablet.dr, 375 MG PO BID PRN for PAIN-MODERATE TO SEVERE Prescribed by: PELON HARPER on 12/22/18 0135 Nitrofurantoin Monohyd/M-Cryst 100 Mg Capsule, 1 TAB PO BID Prescribed by: REI MOORE on 05/31/202031 Sucralfate 1 Gm Tablet, 1 GM PO Q6H Prescribed by: AVERY LIRIANO on 03/17/202327 Patient Home Medication List Home Medication List Reviewed: Yes Review of Systems Review of Systems Constitutional: No chills, No fever, No malaise, No weakness Musculoskeletal: No joint pain, No joint swelling, No neck pain Skin: see HPI, change in color, lesions; No lumps, No pruritus, No rash Past Pzsrfbm-Zacgbg-Chvczf Hx Past Med/Social Hx: Reviewed Nursing Past Med/Soc Hx Patient Social History Type Used: Cigarettes 2nd Hand Smoke Exposure: Yes Recent Hopitalizations: No Immunizations Up To Date Tetanus Booster (TDap): Unknown Seasonal Allergies Seasonal Allergies: No Past Medical History Surgeries: Yes (BUTTOCKS "ABCESS FROM MRSA" I&D; ABSCESS ON SCALP I&D; TEETH REMOVED) Tonsillectomy Respiratory: No Cardiac: No Neurological: No Female Reproductive Disorders: Denies Sexually Transmitted Disease: No HIV/AIDS: No Genitourinary: No Gastrointestinal: Yes (GASTROPARESIS) Musculoskeletal: Yes Chronic Back Pain Endocrine: Yes Diabetes, Insulin dep HEENT: Yes (WEARS GLASSES; ALL TEETH REMOVED) Loss of Vision: Bilateral Cancer: No Psychosocial: Yes Anxiety, Depression Integumentary: Yes (MRSA ABSCESSES) Recent Skin Changes Blood Disorders: No Family Medical History No Pertinent Family Hx Physical Exam Vital Signs Vital Signs - First Documented 10/30/20 20:53 Temp 36.6 Pulse 115 Resp 20 B/P (MAP) 157/98 (117) Pulse Ox 100 O2 Delivery Room Air Capillary Refill : General Appearance: WD/WN, no apparent distress Skin: No ecchymosis, No pallor, No rash; other (macerated skin of left great toe, plantar surface (what appears to be partially peeled off blister). macerated skin 2 to bandage. no erythema or sign of 2 infection.) Procedures/Interventions Date of ETT Placement: Nov 17, 2019 Time of ETT Placement: 2037 Progress/Results/Core Measures Results/Orders Vital Signs/I&O 10/30/20 20:53 Temp 36.6 Pulse 115 Resp 20 B/P (MAP) 157/98 (117) Pulse Ox 100 O2 Delivery Room Air Departure Impression Primary Impression: Blister of toe Qualified Codes: S90.425A - Blister (nonthermal), left lesser toe(s), initial encounter Disposition: HOME, SELF-CARE Condition: Stable Departure-Patient Inst. Decision time for Depature: 20:59 Referrals: [facility] (PCP) Primary Care Physician ZHANNA NUNEZ APRN (Family) Primary Care Physician Patient Instructions: Blisters Add. Discharge Instructions: Follow up with your PCP for any further questions regarding your toe and wound healing/ treatment All discharge instructions reviewed with patient and/or family. Voiced understanding. RALF FIGUEROA DO Oct 30, 2020 21:00
== END 2020-10-30 21:04 | disposition home or self-care (01) ==
LOC: EDUNIT# 20:50 → ER FS 20:52
DX: S90.422A Blister (nonthermal), left great toe, initial encounter (principal); Z88.0 Allergy status to penicillin; Z88.2 Allergy status to sulfonamides; Z77.22 Contact with and (suspected) exposure to environmental tobacco smoke (acute) (chronic); W26.8XXA Contact with other sharp object(s), not elsewhere classified, initial encounter
CPT/HCPCS: 99282

== ENCOUNTER → 2021-02-18 | Outpatient (CLI) | payer MEDICAID ==
[~2021-02-18] MED LIST changes: -CIPR500T4 PO; +CIPR500T5 PO
== END ==
LOC: WOUNDCARE 13:41
PROVIDERS: ATTEND Surgery
DX: E10.621 Type 1 diabetes mellitus with foot ulcer (principal); E10.42 Type 1 diabetes mellitus with diabetic polyneuropathy; L97.522 Non-pressure chronic ulcer of other part of left foot with fat layer exposed; I70.245 Atherosclerosis of native arteries of left leg with ulceration of other part of foot; T21.33XA Burn of third degree of upper back, initial encounter
CPT/HCPCS: 11042

== ENCOUNTER → 2021-02-26 | Outpatient (CLI) | payer MEDICAID | LOC: WOUNDCARE 14:32 | PROVIDERS: ATTEND Surgery | DX: E11.621 Type 2 diabetes mellitus with foot ulcer (principal); I96 Gangrene, not elsewhere classified; T21.33XA Burn of third degree of upper back, initial encounter; E11.42 Type 2 diabetes mellitus with diabetic polyneuropathy; L97.522 Non-pressure chronic ulcer of other part of left foot with fat layer exposed | CPT/HCPCS: 11042 ==

== ENCOUNTER → 2021-03-08 | Outpatient (CLI) | payer MEDICAID | LOC: WOUNDCARE 14:43 | PROVIDERS: ATTEND Orthopaedic Surgery Hand Surgery | DX: E11.621 Type 2 diabetes mellitus with foot ulcer (principal); I96 Gangrene, not elsewhere classified; E11.42 Type 2 diabetes mellitus with diabetic polyneuropathy; L97.522 Non-pressure chronic ulcer of other part of left foot with fat layer exposed; T21.33XA Burn of third degree of upper back, initial encounter; T22.231A Burn of second degree of right upper arm, initial encounter; T24.211A Burn of second degree of right thigh, initial encounter | CPT/HCPCS: 11042 ==

== ENCOUNTER → 2021-03-12 | Outpatient (CLI) | payer MEDICAID | LOC: WOUNDCARE 15:37 | PROVIDERS: ATTEND Surgery | DX: E11.621 Type 2 diabetes mellitus with foot ulcer (principal); I96 Gangrene, not elsewhere classified; E11.42 Type 2 diabetes mellitus with diabetic polyneuropathy; L97.522 Non-pressure chronic ulcer of other part of left foot with fat layer exposed; L56.8 Other specified acute skin changes due to ultraviolet radiation; T22.231A Burn of second degree of right upper arm, initial encounter; T24.311A Burn of third degree of right thigh, initial encounter | CPT/HCPCS: 11042 ==

== ENCOUNTER → 2021-03-19 | Outpatient (CLI) | payer MEDICAID | LOC: WOUNDCARE 13:27 | PROVIDERS: ATTEND Surgery | DX: E11.621 Type 2 diabetes mellitus with foot ulcer (principal); E11.42 Type 2 diabetes mellitus with diabetic polyneuropathy; L97.522 Non-pressure chronic ulcer of other part of left foot with fat layer exposed; L56.8 Other specified acute skin changes due to ultraviolet radiation; T22.231A Burn of second degree of right upper arm, initial encounter; T24.211A Burn of second degree of right thigh, initial encounter; E11.52 Type 2 diabetes mellitus with diabetic peripheral angiopathy with gangrene | CPT/HCPCS: 11042 ==

== ENCOUNTER → 2021-03-19 | Outpatient (CLI) | payer MEDICAID ==
[2021-03-19 15:08] LABS: BASOPHILS # (AUTO) 0.1 10^3/uL (0.0-0.1); BASOPHILS % (AUTO) 1 % (0-10); EOSINOPHILS # (AUTO) 0.2 10^3/uL (0.0-0.3); EOSINOPHILS % (AUTO) 2 % (0-10); HEMATOCRIT 33 % (35-52); HEMOGLOBIN 9.9 g/dL (11.5-16.0); LYMPHOCYTES # (AUTO) 2.1 10^3/uL (1.0-4.0); LYMPHOCYTES % (AUTO) 19 % (12-44); MEAN CORPUSCULAR HEMOGLOBIN 26 pg (25-34); MEAN CORPUSCULAR HGB CONC 30 g/dL (32-36); MEAN CORPUSCULAR VOLUME 86 fL (80-99); MONOCYTES # (AUTO) 0.5 10^3/uL (0.0-1.0); MONOCYTES % (AUTO) 5 % (0-12); NEUTROPHILS # (AUTO) 7.8 10^3/uL (1.8-7.8); NEUTROPHILS % (AUTO) 73 % (42-75); PLATELET COUNT 314 10^3/uL (130-400); WHITE BLOOD COUNT 10.8 10^3/uL (4.3-11.0)
[2021-03-19 15:21] LABS: ALBUMIN 3.6 GM/DL (3.2-4.5)
[2021-03-19 15:22] LABS: POTASSIUM 4.8 MMOL/L (3.6-5.0)
[2021-03-19 15:23] LABS: CALCIUM 9.2 MG/DL (8.5-10.1)
[2021-03-19 15:24] LABS: TOTAL PROTEIN 7.8 GM/DL (6.4-8.2)
[2021-03-19 15:26] LABS: BILIRUBIN,TOTAL 0.3 MG/DL (0.1-1.0)
[2021-03-19 15:28] LABS: CREATININE SERUM 1.66 MG/DL (0.60-1.30)
== END ==
LOC: LAB 14:39
PROVIDERS: ATTEND Surgery
DX: E10.621 Type 1 diabetes mellitus with foot ulcer (principal)
CPT/HCPCS: 36415; 80053; 83036; 85025

== ENCOUNTER → 2021-04-04 | Outpatient (CLI) | payer MEDICAID ==
[~2021-04-04] MED LIST changes: +ACHD5005 PO
== END ==
LOC: WOUNDCARE 13:47
PROVIDERS: ATTEND Surgery
DX: E11.621 Type 2 diabetes mellitus with foot ulcer (principal); I96 Gangrene, not elsewhere classified; E11.42 Type 2 diabetes mellitus with diabetic polyneuropathy; L97.522 Non-pressure chronic ulcer of other part of left foot with fat layer exposed; N18.32 Chronic kidney disease, stage 3b
CPT/HCPCS: 11042

== ENCOUNTER 2021-04-05 19:07 | Emergency (ER) | payer MEDICAID ==
[~2021-04-05] VITALS: Ht 157.5 cm; Wt 80.7 kg
[~2021-04-05 19:07] MED LIST changes: -ACHD5005 PO
[2021-04-05 19:12] VITALS: BP 141/87
--- NOTE | 2021-04-05 19:24 | ED Lower Extremity ---
General Chief Complaint: Lower Extremity Stated Complaint: LT KNEE PAIN Nursing Triage Note: PT TO ROOM FS02 WITH C/O LEFT KNEE PAIN. PT STATES THAT SHE WAS SEEN BY [facility] AND GIVEN IBUPROFEN FOR PAIN. PT STATES THAT SHE WANTS SOMETHING STRONGER FOR PAIN. PT IS REQUESTING HYDROCODONE FOR PAIN. PT REPORTS THAT SHE HAS NOT CONTACTED THE CLINIC REGARDING HER INCREASED PAIN. PT STATES THAT SHE DOES NOT WANT JUST A ONE TIME DOSE OF NARCOTICS AND THAT SHE WANTS A PRESCRIPTION FOR PAIN MEDICATION. Source: patient History of Present Illness Date Seen by Provider: Apr 05, 2021 Time Seen by Provider: 19:11 Initial Comments 25 yo female presenting with complaint of continued left knee pain since about 10 days ago. She went to Urgent Care Thursday and reports they did an xray and told her it looked fine. She had seen her wound care provider yesterday about chronic diabetic foot wound and they told her she does not have infection going up her leg to cause knee pain. She was prescribed Ibuprofen by the [facility] Urgent Care clinic but states even taking that with Acetaminophen as instructed by them she still has severe pain. She was also told to follow up with pcp and has an appt on Thursday of this upcoming week. However, tonight after clinic had closed and right before pharmacy was to close she presents with complaint of pain and is requesting prescription for hydrocodone and not just a 1 time dose of medicine. Onset: other (over 10 days ago) Severity: severe Pain/Injury Location: left knee Method of Injury: unknown Modifying Factors: Worse With Movement Allergies and Home Medications Allergies Coded Allergies: Penicillins (Verified Allergy, Unknown, 01/05/19) Sulfa (Sulfonamide Antibiotics) (Verified Allergy, Unknown, 01/05/19) Uncoded Allergies: PCN (Allergy, Unknown, 12/22/18) Home Medications Cephalexin 500 Mg Capsule, 500 MG PO TID Prescribed by: AJ BOYD on 01/05/19 1334 Ciprofloxacin HCl 500 Mg Tablet, 500 MG PO BID Prescribed by: PRACHI COBURN on 02/14/19 023 Clindamycin HCl 300 Mg Capsule, 300 MG PO Q6H Prescribed by: PELON HARPER on 12/22/18 013 Diclofenac Sodium 25 Mg Tablet.dr, 25 MG PO TID PRN for PAIN-MODERATE (5-7) Prescribed by: REI MOORE on 05/31/202020 Doxycycline Hyclate 100 Mg Tablet, 100 MG PO BID Prescribed by: AJ BOYD on 01/05/19 1334 Famotidine 20 Mg Tablet, 20 MG PO BID Prescribed by: AVERY LIRIANO on 03/17/202327 Hydrocodone/Acetaminophen 1 Each Tablet, 1 TAB PO Q6H PRN for PAIN-SEVERE (8-10) Prescribed by: PELON HARPER on 04/05/21 193 Naproxen 375 Mg Tablet.dr, 375 MG PO BID PRN for PAIN-MODERATE TO SEVERE Prescribed by: PELON HARPER on 12/22/18 013 Nitrofurantoin Monohyd/M-Cryst 100 Mg Capsule, 1 TAB PO BID Prescribed by: REI MOORE on 05/31/202031 Sucralfate 1 Gm Tablet, 1 GM PO Q6H Prescribed by: AVERY LIRIANO on 03/17/202327 Patient Home Medication List Home Medication List Reviewed: Yes Review of Systems Constitutional: No chills, No fever EENTM: no symptoms reported Respiratory: no symptoms reported Cardiovascular: no symptoms reported Gastrointestinal: no symptoms reported Genitourinary: no symptoms reported Musculoskeletal: see HPI Skin: no symptoms reported Past Llucpfl-Ckwkpg-Biinxm Hx Patient Social History Tobacco Use?: Yes Tobacco type used: Cigarettes Smoking Status: Current Everyday Smoker Smokeless Tobacco Frequency: Never a User Substance use?: No Alcohol Use?: No Pt feels they are or have been: No Immunizations Up To Date Tetanus Booster (TDap): Unknown Seasonal Allergies Seasonal Allergies: No Past Medical History Surgeries: Yes (BUTTOCKS "ABCESS FROM MRSA" I&D; ABSCESS ON SCALP I&D; TEETH REMOVED) Tonsillectomy Respiratory: No Cardiac: No Neurological: No Female Reproductive Disorders: Denies Sexually Transmitted Disease: No HIV/AIDS: No Genitourinary: No Gastrointestinal: Yes (GASTROPARESIS) Musculoskeletal: Yes Chronic Back Pain Endocrine: Yes Diabetes, Insulin dep HEENT: Yes (WEARS GLASSES; ALL TEETH REMOVED) Loss of Vision: Bilateral Cancer: No Psychosocial: Yes Anxiety, Depression Integumentary: Yes (MRSA ABSCESSES) Recent Skin Changes Blood Disorders: No Family Medical History No Pertinent Family Hx Physical Exam Vital Signs Vital Signs - First Documented 04/05/21 19:12 Temp 36.3 Pulse 112 Resp 17 B/P (MAP) 141/87 (105) O2 Delivery Room Air Capillary Refill : Less Than 3 Seconds Height, Weight, BMI Height: 5'2.00" Weight: 125lbs. 0oz. 56.585678eb; 32.00 BMI Method:Stated General Appearance: no apparent distress, obese, other (sitting in wheelchair and has a trach. ) Knees: left knee pain, left knee soft tissue tenderness, left knee other (reports pain to palpation of lateral aspect of knee and with movement of knee joint. No laxity noted with stress applied to knee) Neurologic/Psychiatric: alert, oriented x 3 Skin: warm/dry Procedures/Interventions Date of ETT Placement: Nov 17, 2019 Time of ETT Placement: 2037 Progress/Results/Core Measures Results/Orders My Orders Orders - PELON HARPER MD Knee 3 View Left (04/05/21 19:22) Vital Signs/I&O 04/05/21 19:12 Temp 36.3 Pulse 112 Resp 17 B/P (MAP) 141/87 (105) O2 Delivery Room Air Blood Pressure Mean: 105 Progress Progress Note #1: Progress Note since unable to access xrays from Urgent care will obtain imaging tonight to look for bony abnormality. Progress Note #2: Progress Note On my review of her 3 views of the left knee she has no acute bony abnormality. Will try treating with a few hydrocodone to help her until she can be seen with her regular provider on Thursday. Diagnostic Imaging Diagonstic Imaging: Xray Plain Films/CT/US/NM/MRI: knee Comments NAME: LINNEA ZAMORA [facility] REC#: [id number] PT STATUS: REG ER : 1995 PHYSICIAN: PELON HARPER MD ADMIT DATE: 04/05/21/ER FS Draft Date of Exam:04/05/21 KNEE 3 VIEW LEFT INDICATION: Left knee pain. No known injuries. EXAMINATION: Left knee from 04/05/2021 FINDINGS: 3 views of the knee. There are no acute fractures or dislocations. The joint spaces appear preserved. Soft tissues unremarkable. IMPRESSION: 1. No acute osseous abnormality. Dictated on workstation # [id number] Dict: 04/05/211934 Trans: 04/05/211938 [facility] [id number] Interpreted by: MILAGRO CUI MD Electronically signed by: Reviewed: Reviewed by Me Departure Impression Primary Impression: Left knee pain Qualified Codes: M25.562 - Pain in left knee Disposition: 01 HOME, SELF-CARE Condition: Stable Departure-Patient Inst. Decision time for Depature: 19:39 Referrals: [facility] (PCP) Primary Care Physician ZHANNA NUNEZ APRN (Family) Primary Care Physician Patient Instructions: Opioids for Short-Term Treatment of Pain ED, Knee Pain ED Add. Discharge Instructions: Try the Hydrocodone for severe pain and you may still try ice alternating with heat to the knee to help with inflammation and pain. Consider an narinder bandage for added support to the knee. Keep appointment on Thursday with primary provider All discharge instructions reviewed with patient and/or family. Voiced understanding. Scripts Hydrocodone/Acetaminophen (Hydrocodone-Acetamin 5-325 mg) 1 Each Tablet 1 TAB PO Q6H PRN for PAIN-SEVERE (8-10) for 5 Days, #20 TAB 0 Refills Prov: PELON HARPER MD 04/05/21 PELON HARPER MD Apr 05, 2021 19:24
[2021-04-05] MEDS ORDERED: ACHD5005 PO (19:37)
--- NOTE | 2021-04-05 19:40 | Diagnostic Imaging Report ---
INDICATION: Left knee pain. No known injuries. EXAMINATION: Left knee from 04/05/2021 FINDINGS: 3 views of the knee. There are no acute fractures or dislocations. The joint spaces appear preserved. Soft tissues unremarkable. IMPRESSION: 1. No acute osseous abnormality. Dictated by: Dictated on workstation # [id number]
== END 2021-04-05 19:44 | disposition home or self-care (01) ==
LOC: EDUNIT# 19:07 → ER FS 19:08
DX: M25.562 Pain in left knee (principal); E11.43 Type 2 diabetes mellitus with diabetic autonomic (poly)neuropathy; K31.84 Gastroparesis; G89.29 Other chronic pain; M54.9 Dorsalgia, unspecified; E66.9 Obesity, unspecified; F17.210 Nicotine dependence, cigarettes, uncomplicated; Z68.32 Body mass index [BMI] 32.0-32.9, adult; Z79.1 Long term (current) use of non-steroidal anti-inflammatories (NSAID)
CPT/HCPCS: 73562